=== PATIENT | male | born 1965 | race Caucasian/White ===

== ENCOUNTER 2016-09-01 15:28 | Emergency (ER) | payer MEDICARE, OTHER ==
[~2016-09-01] VITALS: Wt 136.0 kg
[~2016-09-01 15:28] MED LIST: ASPI-664 PO; FURO-109 PO; GABA300C16 PO; LANT3I SC; LISI20TA11 PO; METO-448 PO; METO5TAB65 PO; NIT4 SL; NOVO3I SC; POTA-57 PO
[2016-09-01 16:01] LABS: URINE BLOOD (Dip) POC 1+ (NEGATIVE)
--- NOTE | 2016-09-01 16:04 | ERD ---
ER Documentation Chief Complaint Date/Time DATE: 09/01/16 TIME: 15:59 Chief Complaint SENT BY PMD FOR HIGH BLOOD SUGAR DRAWN 1 DAY AGO. OVER 500. BS NOW 359 HPI Very pleasant 50-year-old gentleman history of insulin-dependent diabetes. He states for approximately 6 months he has been using a half dose of Lantus based on a pharmacist recommendation. He went to his doctor 2 days ago who told him to increase Lantus back up to 40 units. His primary care doctor called him today because of blood glucose value on routine testing showed a level of 500. Here it is 359. He states compliance with medications. He denies any polyuria polydipsia polyphagia, no difficulty breathing. He denies any fatigue. No chest pain or shortness of breath. ROS All systems reviewed and are negative except as per history of present illness. Medications Home Meds Active Scripts Potassium Chloride* (Klor-Con*) 20 Meq Tabsr, 20 MEQ PO BID for 30 Days, TAB Prov:SETH AVENDANO 11/16/15 Metoprolol Tartrate* (Lopressor*) 25 Mg Tab, 25 MG PO BID for 30 Days, TAB Prov:SETH AVENDANO 11/16/15 Metolazone* (Metolazone*) 5 Mg Tablet, 5 MG PO DAILY for 30 Days, TAB Prov:SETH AVENDANO 11/16/15 Lisinopril* (Lisinopril*) 20 Mg Tablet, 20 MG PO BID for 30 Days, TAB Prov:SETH AVENDANO 11/16/15 Furosemide* (Lasix*) 40 Mg Tablet, 40 MG PO DAILY for 30 Days, TAB Prov:SETH AVENDANO 11/16/15 Aspirin* (Aspirin* EC) 81 Mg Tabec, 81 MG PO DAILY, #30 Prov:SETH AVENDANO 08/13/15 Insulin Aspart* (Novolog Insulin Pen*) 100 Unit/Ml Soln, 4 UNIT SC WITH MEALS for 30 Days Prov:SETH AVENDANO 08/13/15 Reported Medications Insulin Glargine* (Lantus*) 100 Unit/Ml Soln, 36 UNIT SC QAM, #1 VIAL 11/13/15 Gabapentin* (Gabapentin*) 300 Mg Capsule, 300 MG PO TID, #90 08/10/15 Nitroglycerin* (Nitrostat*) 0.4 Mg Tab.subl, 0.4 MG SL Q5MIN Y for CHEST PAIN, BOTTLE 07/04/14 Allergies Allergies: Coded Allergies: No Known Drug Allergies (Verified Allergy, Mild, 11/15/15) PMhx/Soc History of Surgery: Yes (STENTS ) Anesthesia Reaction: No Hx Neurological Disorder: No Hx Respiratory Disorders: No Hx Cardiac Disorders: Yes (CAD; HTN) Hx Psychiatric Problems: No Hx Miscellaneous Medical Probl: No Hx Alcohol Use: No Hx Substance Use: No Hx Tobacco Use: No FmHx Family History: diabetes Physical Exam Vitals Vital Signs Date Time Temp Pulse Resp B/P Pulse Ox O2 Delivery O2 Flow Rate FiO2 09/01/16 15:33 98.8 99 21 152/71 98 Physical Exam General overweight male, no significant distress Head: Normocephalic, atraumatic. Eyes: Pupils equally reactive, EOM intact ENT: Moist mucous membranes Neck: Supple, no lymphadenopathy Respiratory: Lungs clear bilaterally, no distress Cardiovascular: RRR, no murmurs, rubs, or gallops Abdominal: Soft, non-tender, non-distended, no peritoneal signs : Deferred MSK: No edema, no unilateral swelling, 5/5 strength Neurologic: Alert and oriented, moving all extremities, normal speech, no focal weakness, no cerebellar signs Skin: No rash Psych: Normal mood Results 24 hrs Laboratory Tests Test 09/01/16 15:34 09/01/16 15:43 09/01/16 15:59 Bedside Glucose 329mg/dL Rl Test N/A Arterial Blood Date Drawn 09/01/2016 3:45:35 PM Arterial Blood Gas Puncture Site VENOUS LINE Blood Gas Actual Respiration Rate 20 Blood Gas Modality ROOM AIR Blood Gas Notified Time 09/01/2016 4:09:29 PM Blood Gas Notified Whom DEBORAH BRUNO Blood Gas Specimen Source Blood venous Blood Gas Temperature 37.0C Carboxyhemoglobin 0.7% FiO2 21.0% Venous Blood Base Excess 0.3mmol/L Venous Blood HCO3 25.3mmol/L Venous Blood Methemoglobin 0.2% Venous Blood Oxygen Saturation 57.8mmHG Venous Blood Oxyhemoglobin 57.3% Venous Blood Total Hemoglobin 14.9g/dl Venous Blood pCO2 (Temp Corrected) 42.0mmHG Venous Blood pH 7.397 Venous Blood pO2 (Temp Corrected) 28.0mmHG Bedside Urine Blood 1+ Bedside Urine Glucose (UA) 0.50% Bedside Urine Ketones (LAB) Negative Bedside Urine Leukocyte Esterase (L Negative Bedside Urine Nitrite (LAB) Negative Bedside Urine Protein (LAB) 2+ Bedside Urine pH (LAB) 5.0 Procedures/MDM LAB INTERPRETATION: Urine dip without ketones Venous blood gas shows normal pH MEDICAL DECISION MAKING: The patient presents because of a routine blood draw that showed a glucose value in the 500s. Patient has compliance with medications but has been taking a chronic half dose of Lantus. He has recently corrected his Lantus over the past 48 hours. He denies any signs or symptoms that would be consistent with diabetic ketoacidosis. He is otherwise well-hydrated without signs or symptoms of alternative etiology for hyperglycemia. I do not feel that significant laboratory testing or IV fluids are necessary. Rapidly lowering the patient's glucose is also not necessary. The patient will have screening to rule out DKA including urinalysis, venous blood gas. If normal, CBC and chemistry not necessary. Patient can be appropriately managed by his primary care physician. Inciting event including half dosing has been corrected. ER COURSE: Urinalysis without ketones, venous blood gas with normal pH. Patient appropriate for outpatient management. I will try to speak to the patient's primary care physician Dr. Cortez. I kept the patient and/or family informed of laboratory and diagnostic imaging results throughout the emergency room course. DISPOSITION PLAN: We discussed follow up with the patient's primary care doctor within 24 to 48 hours as needed. We also discussed return to the emergency room for worsening symptoms or worsening condition. Departure Diagnosis: Primary Impression: Hyperglycemia Additional Impression: Type 2 diabetes mellitus Diabetes mellitus complication status: without complication Diabetes mellitus joint terminal attack controller insulin use: with joint terminal attack controller use Qualified Code: E11.9 - Type 2 diabetes mellitus without complication, with long-term current use of insulin Condition: TALYA Eckert MD Sep 01, 2016 16:04
[2016-09-01 16:09] LABS: MODE ROOM AIR; MetHgb Venous 0.2 %; Sample Type Blood venous; Venous COHb 0.7 %; Venous Fraction OxyHgb 57.3 %; Venous Total Hemglobin 14.9 g/dl
== END 2016-09-01 16:16 | disposition home or self-care (01) ==
LOC: E/R 15:28
DX: E11.65 Type 2 diabetes mellitus with hyperglycemia (principal); I10 Essential (primary) hypertension; I25.10 Atherosclerotic heart disease of native coronary artery without angina pectoris; Z79.4 Long term (current) use of insulin; Z79.82 Long term (current) use of aspirin; Z98.61 Coronary angioplasty status
CPT/HCPCS: 36415; 81003; 82803; 82962; 99283

== ENCOUNTER → 2016-11-07 | Outpatient (CLI) | payer MEDICARE, OTHER ==
--- NOTE | 2016-11-07 15:43 | RADRPT ---
PROCEDURE: XR right hip. CLINICAL INDICATION: Hip pain TECHNIQUE: AP and lateral views performed COMPARISON: No prior studies are available for comparison. FINDINGS: There is moderate right hip osteoarthrosis. This is associated with joint space narrowing, subchondr al sclerosis , subchondral cyst formation and osteophytosis. There is normal mineralization. No fr actures or osseous lesions are identified. The soft tissues are unremarkable. IMPRESSION: Moderate right hip osteoarthrosis. RPTAT: HGDB .Benigno Vasquez MD, Date Time Electronically viewed and signed by .Benigno Vasquez MD, on 11/07/2016 15:43 .B/
[2016-11-07 16:02] LABS: ALBUMIN 4.2 g/dl (3.3-4.9); POTASSIUM 4.4 mmol/L (3.5-5.1)
[2016-11-07 16:04] LABS: CREATININE 1.08 mg/dl (0.61-1.24)
[2016-11-07 16:05] LABS: ALBUMIN/GLOBULIN RATIO 1.1; BILIRUBIN,INDIRECT 0.2 mg/dl (0-1.1); BILIRUBIN,TOTAL 0.2 mg/dl (0.2-1.3)
[2016-11-07 16:06] LABS: CALCIUM 9.7 mg/dl (8.4-10.2)
[2016-11-08 14:15] LABS: ANA SCREEN NEGATIVE (NEGATIVE)
== END | disposition home or self-care (01) ==
LOC: RAD 14:53
PROVIDERS: ATTEND Internal Medicine
DX: M19.90 Unspecified osteoarthritis, unspecified site (principal); E11.9 Type 2 diabetes mellitus without complications
CPT/HCPCS: 73510; 80053; 85651; 86038; 86430

== ENCOUNTER 2017-01-28 19:05 | Inpatient (IN) | payer MEDICARE, OTHER ==
[~2017-01-28] VITALS: Ht 172.7 cm; Wt 145.0 kg
[2017-01-28] MEDS ORDERED: ASPIRIN 325 MG TAB PO STA (19:37)
[2017-01-28] MEDS ORDERED: NITROGLYCERIN 2% 1 GM OINT PKT TD STA (19:37)
[2017-01-28 19:52] LABS: BASOPHILS % 0.3 % (0.0-2.0); EOSINOPHILS # 0.3 10^3/ul (0.0-0.5); EOSINOPHILS % 3.6 % (0.0-7.0); HEMOGLOBIN 14.3 g/dl (14.0-18.0); LYMPHOCYTES # 1.7 10^3/ul (0.8-2.9); LYMPHOCYTES % 22.2 % (15.0-51.0); MEAN CORPUSCULAR HEMOGLOBIN 27.8 pg (29.0-33.0); MEAN CORPUSCULAR HGB CONC 32.5 g/dl (32.0-37.0); MEAN CORPUSCULAR VOLUME 85.4 fl (82.0-101.0); MEAN PLATELET VOLUME 12.4 fl (7.4-10.4); MONOCYTE # 0.7 10^3/ul (0.3-0.9); MONOCYTES % 9.4 % (0.0-11.0); NEUTROPHILS % 64.1 % (39.0-77.0); PLATELET COUNT 168 10^3/UL (140-415); RED BLOOD COUNT 5.15 10^6/ul (4.70-6.10); RED CELL DISTRIBUTION WIDTH 14.1 % (11.5-14.5); WHITE BLOOD COUNT 7.8 10^3/ul (4.8-10.8)
[2017-01-28] MEDS ORDERED: HYDROmorphONE 1 MG/ML SYG IV STA ×2 (19:53→21:54)
[2017-01-28] MEDS ORDERED: ONDANSETRON 4 MG INJ IV STA ×2 (19:53→21:54)
[2017-01-28 20:11] LABS: INR 1.01; PROTIME 13.3 Sec (12.2-14.2)
[2017-01-28 20:12] LABS: PARTIAL THROMBOPLASTIN TIME 31.2 Sec (25.0-35.0)
[2017-01-28] MEDS ORDERED: SPIR25TA PO (20:15)
[2017-01-28] MEDS ORDERED: ALDS PO (20:17)
[2017-01-28] MEDS ORDERED: BENA20TA48 PO (20:17)
[2017-01-28] MEDS ORDERED: CLOP75TA4 PO (20:18)
[2017-01-28] MEDS ORDERED: CARV25TA79 PO (20:18)
[2017-01-28 20:22] LABS: ALANINE AMINOTRANSFERASE 47 IU/L (13-69); ALBUMIN 3.9 g/dl (3.3-4.9); ALBUMIN/GLOBULIN RATIO 1.14; ALKALINE PHOSPHATASE 140 IU/L (42-121); ANION GAP 18 (8-16); ASPARTATE AMINO TRANSFERASE 28 IU/L (15-46); BILIRUBIN,INDIRECT 0.3 mg/dl (0-1.1); BILIRUBIN,TOTAL 0.3 mg/dl (0.2-1.3); BLOOD UREA NITROGEN 25 mg/dl (7-20); CALCIUM 9.2 mg/dl (8.4-10.2); CARBON DIOXIDE 26 mmol/L (21-31); CHLORIDE 97 mmol/L (97-110); CREATININE 1.14 mg/dl (0.61-1.24); GLUCOSE 285 mg/dl (70-220); SODIUM 137 mmol/L (135-144); TOTAL PROTEIN 7.3 g/dl (6.1-8.1)
[2017-01-28 20:34] LABS: TROPONIN-I < 0.012 ng/ml (0.00-0.12)
--- NOTE | 2017-01-28 20:46 | RADRPT ---
PROCEDURE: XR Chest. CLINICAL INDICATION: Chest pain. TECHNIQUE: AP Portable chest. COMPARISON: 11/13/2015 FINDINGS: There is moderate cardiomegaly. The lungs are clear. The osseous structures are unremarkable. IMPRESSION: No acute findings. RPTAT: HIKT .Ariel Suarez MD, Date Time Electronically viewed and signed by .Ariel Suarez MD, on 01/28/2017 20:46 .T/
--- NOTE | 2017-01-28 22:15 | ERA ---
ER Documentation Chief Complaint Date/Time DATE: 01/28/17 TIME: 22:13 Chief Complaint left pressure like chest pain for 3 hours. Took Nitro 1 hour ago. Hx: MA HPI This is a 51-year-old male with a history of coronary artery disease with 6 cardiac stents. 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 The patient states that he has had chest pain off and on for the past 3-4 days that was initially relieved by nitro sublingual. However the chest pain became more frequent and he was taking more nitroglycerin and finally the nitroglycerin stopped working so he came to the ER. Says he has substernal chest pressure with shortness of breath and the chest pain radiates to the back and to his left shoulder and arm. Says this is the typical pattern for his angina. No cough no palpitations dizziness or syncope he says he is currently pain-free ROS All systems reviewed and are negative except as per history of present illness. Medications Home Meds Active Scripts Furosemide* (Lasix*) 40 Mg Tablet, 40 MG PO DAILY for 30 Days, TAB Prov:SETH AVENDANO 11/16/15 Aspirin* (Aspirin* EC) 81 Mg Tabec, 81 MG PO DAILY, #30 Prov:SETH AVENDANO 08/13/15 Insulin Aspart* (Novolog Insulin Pen*) 100 Unit/Ml Soln, 4 UNIT SC WITH MEALS for 30 Days Prov:SETH AVENDANO 08/13/15 Reported Medications Clopidogrel Bisulfate* (Clopidogrel Bisulfate*) 75 Mg Tablet, 75 MG PO DAILY, # 30 TAB 01/28/17 Carvedilol* (Carvedilol*) 25 Mg Tablet, 25 MG PO BID, #60 TAB 01/28/17 Benazepril Hcl* (Benazepril Hcl*) 20 Mg Tablet, 20 MG PO DAILY, #30 TAB 01/28/17 Spironolactone* (Aldactone*) Unknown Strength Susp, 0 PO DAILY for 30 Days, BOTTLE (COMPOUNDED) 01/28/17 Insulin Glargine* (Lantus*) 100 Unit/Ml Soln, 40 UNIT SC QAM, #1 VIAL 11/13/15 Discontinued Reported Medications Spironolactone* (Aldactone*) 25 Mg Tablet, 25 MG PO DAILY, #30 TAB 01/28/17 Gabapentin* (Gabapentin*) 300 Mg Capsule, 300 MG PO TID, #90 08/10/15 Nitroglycerin* (Nitrostat*) 0.4 Mg Tab.subl, 0.4 MG SL Q5MIN Y for CHEST PAIN, BOTTLE 07/04/14 Discontinued Scripts Potassium Chloride* (Klor-Con*) 20 Meq Tabsr, 20 MEQ PO BID for 30 Days, TAB Prov:JUAN ALBERTOSETH 11/16/15 Metoprolol Tartrate* (Lopressor*) 25 Mg Tab, 25 MG PO BID for 30 Days, TAB Prov:RADCHENDIMASSETH 11/16/15 Metolazone* (Metolazone*) 5 Mg Tablet, 5 MG PO DAILY for 30 Days, TAB Prov:RADJOHN PAUL MATTHEWETLANA 11/16/15 Lisinopril* (Lisinopril*) 20 Mg Tablet, 20 MG PO BID for 30 Days, TAB Prov:RADVIPULSETH 11/16/15 Allergies Allergies: Coded Allergies: No Known Drug Allergies (Verified Allergy, Mild, 01/28/17) PMhx/Soc History of Surgery: Yes (STENTS ) Anesthesia Reaction: No Hx Neurological Disorder: No Hx Respiratory Disorders: No Hx Cardiac Disorders: Yes (CAD; HTN) Hx Psychiatric Problems: No Hx Miscellaneous Medical Probl: No Hx Alcohol Use: No Hx Substance Use: No Hx Tobacco Use: No Smoking Status: Never smoker FmHx Family History: No coronary disease Physical Exam Vitals Vital Signs Date Time Temp Pulse Resp B/P Pulse Ox O2 Delivery O2 Flow Rate FiO2 01/28/17 19:44 Nasal Cannula 2 01/28/17 19:32 98.2 69 20 145/74 98 Nasal Cannula 2.0 01/28/17 19:08 99.8 68 22 153/80 96 Physical Exam Const: [] Head: Atraumatic Eyes: Normal Conjunctiva ENT: Normal External Ears, Nose and Mouth. Neck: Full range of motion..~ No meningismus. Resp: Clear to auscultation bilaterally Cardio: Regular rate and rhythm, no murmurs Abd: Soft, non tender, non distended. Normal bowel sounds Skin: No petechiae or rashes Back: No midline or flank tenderness Ext: No cyanosis, or edema Neur: Awake and alert Psych: Normal Mood and Affect Result Diagram: 01/28/17193901/28/171939 Results 24 hrs Laboratory Tests Test 01/28/17 19:40 White Blood Count 7.810^3/ul Red Blood Count 5.1510^6/ul Hemoglobin 14.3g/dl Hematocrit 44.0% Mean Corpuscular Volume 85.4fl Mean Corpuscular Hemoglobin 27.8pg Mean Corpuscular Hemoglobin Concent 32.5g/dl Red Cell Distribution Width 14.1% Platelet Count 53806^3/UL Mean Platelet Volume 12.4fl Neutrophils % 64.1% Lymphocytes % 22.2% Monocytes % 9.4% Eosinophils % 3.6% Basophils % 0.3% Nucleated Red Blood Cells % 0.0/100WBC Neutrophils # 5.010^3/ul Lymphocytes # 1.710^3/ul Monocytes # 0.710^3/ul Eosinophils # 0.310^3/ul Basophils # 0.010^3/ul Nucleated Red Blood Cells # 0.010^3/ul Prothrombin Time 13.3Sec Prothrombin Time Ratio 1.0 INR International Normalized Ratio 1.01 Activated Partial Thromboplast Time 31.2Sec Sodium Level 137mmol/L Potassium Level 4.0mmol/L Chloride Level 97mmol/L Carbon Dioxide Level 26mmol/L Anion Gap 18 Blood Urea Nitrogen 25mg/dl Creatinine 1.14mg/dl Glucose Level 285mg/dl Calcium Level 9.2mg/dl Total Bilirubin 0.3mg/dl Direct Bilirubin 0.00mg/dl Indirect Bilirubin 0.3mg/dl Aspartate Amino Transf (AST/SGOT) 28IU/L Alanine Aminotransferase (ALT/SGPT) 47IU/L Alkaline Phosphatase 140IU/L Troponin I < 0.012ng/ml Total Protein 7.3g/dl Albumin 3.9g/dl Globulin 3.40g/dl Albumin/Globulin Ratio 1.14 Current Medications Medications (Trade) Dose Ordered Sig/Emerson Route PRN Reason Start Time Stop Time Status Last Admin Dose Admin Aspirin (Aspirin) 325 mg ONCE STAT PO 01/28/17 19:37 01/28/17 19:38 DC 01/28/17 19:43 Nitroglycerin (Nitroglycerin 2% Oint) 1 inch ONCE STAT TD 01/28/17 19:37 01/28/17 19:38 DC 01/28/17 19:43 Hydromorphone HCl (Dilaudid) 1 mg ONCE STAT IV 01/28/17 19:53 01/28/17 19:54 DC 01/28/17 19:59 Ondansetron HCl (Zofran Inj) 4 mg ONCE STAT IV 01/28/17 19:53 01/28/17 19:54 DC 01/28/17 19:58 Hydromorphone HCl (Dilaudid) 1 mg ONCE STAT IV 01/28/17 21:54 01/28/17 21:55 DC 01/28/17 22:03 Ondansetron HCl (Zofran Inj) 4 mg ONCE STAT IV 01/28/17 21:54 01/28/17 21:55 DC 01/28/17 22:03 Procedures/MDM PROCEDURE: XR Chest. CLINICAL INDICATION: Chest pain. TECHNIQUE: AP Portable chest. COMPARISON: 11/13/2015 FINDINGS: There is moderate cardiomegaly. The lungs are clear. The osseous structures are unremarkable. IMPRESSION: No acute findings. RPTAT: HIKT .Ariel Suarez MD, MD Date Time Electronically viewed and signed by .Ariel Suarez MD, MD on 01/28/2017 20:46 .T/ CC: PARKER FARAH DO EKG: Rate/Rhythm: Normal sinus rhythm with right bundle branch block QRS, ST, QT: NORMAL IN, wide QRS, QT] Impression: NORMAL EKG Patient's symptoms are concerning for cardiac cause will require inpatient workup and continuous monitoring. Further w/u for ischemia, arrhythmia, PE or dissection will be deferred to the inpatient team. Accepting Care Team: Current data and ongoing care discussed. Time: Time of admission Primary Provider: Bard gutierrez Consulting: [XOXOXO] Outstanding Data: none Departure Diagnosis: Primary Impression: Chest pain Qualified Code: R07.9 - Chest pain, unspecified type Condition: Stable PARKER FARAH DO Jan 28, 2017 22:15
[2017-01-28] MEDS ORDERED: ACETAMINOPHEN 325 MG TAB PO PRN (22:30)
[2017-01-28] MEDS ORDERED: ONDANSETRON 4 MG INJ IV PRN (22:30)
[2017-01-28 23:31] VITALS: TEMP 98.3
[2017-01-28 23:58] VITALS: PULSE 54
[2017-01-29] VITALS (12 sets, daily range): BP systolic 133–181; BP diastolic 66–91; PULSE 55–62; RESP 18–22; Ht 172.7 cm; Wt 145.0 kg
[2017-01-29] MEDS ORDERED: SOD CHLORIDE 0.9% 1,000 ML IV ONE (00:30)
[2017-01-29] MEDS ORDERED: DEXTROSE 50% 50 ML SYRINGE IV PRN ×2 (01:00)
[2017-01-29] MEDS ORDERED: GLUCOSE GEL 15 GRAM TUBE BUCCAL PRN (01:00)
[2017-01-29] MEDS ORDERED: GLUCOSE GEL 15 GRAM TUBE PO PRN ×2 (01:00)
[2017-01-29] MEDS ORDERED: morphine 10 MG INJ IM PRN (01:00)
[2017-01-29] MEDS ORDERED: HYDROCODONE/APAP (5/325) TAB PO PRN (01:00)
[2017-01-29] MEDS ORDERED: ACETAMINOPHEN 325 MG TAB PO PRN (01:00)
[2017-01-29] MEDS ORDERED: GLUCAGON 1 MG INJ IM PRN (01:00)
[2017-01-29] MEDS ORDERED: NITROGLYCERIN (SL) 0.4 MG TAB SL PRN (01:00)
[2017-01-29] MEDS ORDERED: ACCU-CHEK XX SCH (02:00)
[2017-01-29] MEDS: INSULIN ASPART [NOVOLOG] 3 ML PEN SC SCH ×7 (07:55→19:59)
[2017-01-29 08:15] LABS: BASOPHILS % 0.4 % (0.0-2.0); EOSINOPHILS # 0.3 10^3/ul (0.0-0.5); EOSINOPHILS % 4.9 % (0.0-7.0); HEMATOCRIT 45.6 % (42.0-52.0); HEMOGLOBIN 14.7 g/dl (14.0-18.0); LYMPHOCYTES # 1.5 10^3/ul (0.8-2.9); LYMPHOCYTES % 21.5 % (15.0-51.0); MEAN CORPUSCULAR HEMOGLOBIN 27.8 pg (29.0-33.0); MEAN CORPUSCULAR HGB CONC 32.2 g/dl (32.0-37.0); MEAN CORPUSCULAR VOLUME 86.2 fl (82.0-101.0); MEAN PLATELET VOLUME 11.8 fl (7.4-10.4); MONOCYTE # 0.6 10^3/ul (0.3-0.9); MONOCYTES % 8.1 % (0.0-11.0); NEUTROPHIL # 4.6 10^3/ul (1.6-7.5); PLATELET COUNT 170 10^3/UL (140-415); RED BLOOD COUNT 5.29 10^6/ul (4.70-6.10); RED CELL DISTRIBUTION WIDTH 13.9 % (11.5-14.5)
[2017-01-29 08:41] LABS: ALBUMIN/GLOBULIN RATIO 1.25; BILIRUBIN,INDIRECT 0.6 mg/dl (0-1.1); BILIRUBIN,TOTAL 0.6 mg/dl (0.2-1.3); CREATININE 1.02 mg/dl (0.61-1.24); POTASSIUM 4.4 mmol/L (3.5-5.1); TOTAL PROTEIN 7.2 g/dl (6.1-8.1)
[2017-01-29] MEDS: ASPIRIN 325 MG TAB PO SCH (09:20)
[2017-01-29] MEDS: INSULIN GLARGINE [LANtus] 3 ML PEN SC SCH (09:25)
[2017-01-29] MEDS: ENOXAPARIN 40 MG/0.4 ML SYG SC SCH (09:26)
[2017-01-29] MEDS: ACCU-CHEK XX SCH (09:36)
--- NOTE | 2017-01-29 13:49 | HP ---
Date/Time of Note Date/Time of Note DATE: 01/29/17 TIME: 13:26 Assessment/Plan VTE Prophylaxis VTE Prophylaxis Intervention: LMWH Lines/Catheters IV Catheter Type (from Nrsg): Saline Lock Assessment/Plan Assessment/Plan - Chest pain r/o ACS. EKG showed right BBB - ADMIT TO TELE - Cardiology consult- Dr Vincent notified - stress test am - home meds resumed -CAD - SP STENTS -HTN - Diabetes Mellitus - Glycemic control - Hgb AM -M1800 JIMENA ADA, Low Na, Low CHOL diet - GERD - PROTONIX - Arthritis - pain control - Lovenox for DVT prophylaxis - Protonix for GI prophylaxis Dw Dr Cortez/staff/patient HPI/ROS Admit Date/Time Admit Date/Time Jan 28, 2017 at 22:22 Hx of Present Illness This is a 51-year-old male with a history of coronary artery disease with 6 cardiac stents is admitted with c/o had chest pain off and on for the past 3- 4 days that was initially relieved by nitro sublingual.But eventually chest pain was unrelieved. Patient described his pain as substernal chest pressure associated with shortness of breath, radiates to the back and to left shoulder and arm. Denies any chest pain- having lunch- tolerating well.Denies any cough no palpitations dizziness or syncope. c/o chest pain when he tried to ambulate. Seen by Dr Vincent- alex for stress test tomorrow. ROS All systems reviewed and are negative except as per history of present illness. Allergies No Known Drug Allergies (Verified Allergy, Mild, 01/28/17) ROS Respiratory: no complaints Cardiovascular: chest pain Gastrointestinal: no complaints Genitourinary: no complaints Musculoskeletal: no complaints Neurologic: no complaints PMH/Family/Social Past Medical History PMhx/Soc History of Surgery: Yes (STENTS ) Anesthesia Reaction: No Hx Neurological Disorder: No Hx Respiratory Disorders: No Hx Cardiac Disorders: Yes (CAD; HTN) Hx Psychiatric Problems: No Hx Miscellaneous Medical Probl: No Hx Alcohol Use: No Hx Substance Use: No Hx Tobacco Use: No Smoking Status: Never smoker FmHx Family History: No coronary disease Social History Smoking Status: Never smoker Exam/Review of Systems Vital Signs Vitals Vital Signs Date Time Temp Pulse Resp B/P Pulse Ox O2 Delivery O2 Flow Rate FiO2 01/29/17 12:09 62 01/29/17 12:08 98.2 19 133/66 98 01/29/17 00:21 Room Air 01/28/17 23:31 2.0 Exam Constitutional: alert, oriented Respiratory: clear to auscultation, normal air movement Cardiovascular: nl pulses, regular rate and rhythm Gastrointestinal: non-tender, soft Musculoskeletal: nl extremities to inspection Extremities: normal pulses Neurological: nl mental status, nl speech Labs Result Diagram: 01/29/17 0738 01/29/17 0738 Medications Medications Current Medications Aspirin (Aspirin) 325 mg DAILY PO Last administered on 01/29/17 09:20; Admin Dose 325 MG; Start 01/29/17 at 09:00 Carvedilol (Coreg) 3.125 mg BID PO Last administered on 01/29/17 09:27; Admin Dose 3.125 MG; Start 01/29/17 at 09:00 Acetaminophen (Tylenol Tab) 650 mg Q4H PRN PO PAIN AND OR ELEVATED TEMP; Start 01/29/17 at 01:00 Acetaminophen/ Hydrocodone Bitart ([place] (5/325)) 1 tab Q4H PRN PO PAIN; Start 01/29/17 at 01:00 Morphine Sulfate (morphine) 2 mg Q4H PRN IM PAIN; Start 01/29/17 at 01:00 Enoxaparin Sodium (Lovenox) 40 mg DAILY SC Last administered on 01/29/17 09:26 ; Admin Dose 40 MG; Start 01/29/17 at 09:00 Nitroglycerin (Nitroglycerin (Sl Tab) 0.4 Mg) 1 tab Q5M PRN SL ANGINA; Start at 01:00 Diagnostic Test (Pha) (Accu-Chek) 1 ea 02 XX ; Start 01/29/17 at 02:00 Insulin Glargine (Lantus) 40 unit DAILY@08 SC Last administered on 01/29/17 09 :25; Admin Dose 40 UNIT; Start 01/29/17 at 08:00 Miscellaneous Information 1 ea NOTE XX ; Start 01/29/17 at 01:00 Glucose (Glutose) 15 gm Q15M PRN PO DECREASED GLUCOSE; Start 01/29/17 at 01:00 Glucose (Glutose) 22.5 gm Q15M PRN PO DECREASED GLUCOSE; Start 01/29/17 at 01: 00 Dextrose (D50w Syringe) 25 ml Q15M PRN IV DECREASED GLUCOSE; Start 01/29/17 at 01:00 Dextrose (D50w Syringe) 50 ml Q15M PRN IV DECREASED GLUCOSE; Start 01/29/17 at 01:00 Glucagon (Glucagen) 1 mg Q15M PRN IM DECREASED GLUCOSE; Start 01/29/17 at 01:00 Glucose (Glutose) 15 gm Q15M PRN BUCCAL DECREASED GLUCOSE; Start 01/29/17 at 01 :00 Benazepril HCl (Lotensin) 10 mg BID PO ; Start 01/29/17 at 21:00 Furosemide (Lasix) 20 mg DAILY IV ; Start 01/30/17 at 09:00 Isosorbide Dinitrate (Isordil) 10 mg TID PO ; Start 01/29/17 at 21:00 Procedures Procedures PROCEDURE: XR Chest. CLINICAL INDICATION: Chest pain. TECHNIQUE: AP Portable chest. COMPARISON: 11/13/2015 FINDINGS: There is moderate cardiomegaly. The lungs are clear. The osseous structures are unremarkable. IMPRESSION: No acute findings. EKG: Rate/Rhythm: Normal sinus rhythm with right bundle branch block QRS, ST, QT: NORMAL [place], wide QRS, QT] Impression: REGINA BUI Jan 29, 2017 13:36
[2017-01-29 15:11] LABS: CHOL/HDL RATIO 5.5 RATIO
[2017-01-29] MEDS: ISOSORBIDE DINITRATE 10 MG TAB PO SCH (20:08)
[2017-01-29] MEDS ORDERED: BENAZEPRIL 10 MG TAB PO SCH (21:00)
[2017-01-30] VITALS (13 sets, daily range): BP systolic 129–171; BP diastolic 56–82; PULSE 51–69; RESP 18
--- NOTE | 2017-01-30 01:24 | PN ---
DATE: 01/29/2017 ADDENDUM: As for his diabetes, there is concern the patient is noncompliant with his care. The patient does not check his blood sugar at home, not even once a day and has been on insulin for the last several years. The patient has been explained the importance of checking his blood sugar and managing diabetes aggressively. Due to noncompliance, the patient's hemoglobin A1c in the past has always been elevated. Dictated By: Chaparro Cortez MD /linda/sally /Document#: [id number]
[2017-01-30] MEDS: ACCU-CHEK XX SCH (02:00)
[2017-01-30 07:44] LABS: BASOPHILS % 0.2 % (0.0-2.0); EOSINOPHILS # 0.3 10^3/ul (0.0-0.5); HEMATOCRIT 45.4 % (42.0-52.0); HEMOGLOBIN 14.7 g/dl (14.0-18.0); LYMPHOCYTES # 1.4 10^3/ul (0.8-2.9); LYMPHOCYTES % 21.7 % (15.0-51.0); MEAN CORPUSCULAR HGB CONC 32.4 g/dl (32.0-37.0); MEAN CORPUSCULAR VOLUME 86.5 fl (82.0-101.0); MEAN PLATELET VOLUME 12.3 fl (7.4-10.4); MONOCYTE # 0.5 10^3/ul (0.3-0.9); MONOCYTES % 8.2 % (0.0-11.0); NEUTROPHILS % 64.6 % (39.0-77.0); PLATELET COUNT 165 10^3/UL (140-415); RED BLOOD COUNT 5.25 10^6/ul (4.70-6.10); RED CELL DISTRIBUTION WIDTH 13.8 % (11.5-14.5); WHITE BLOOD COUNT 6.2 10^3/ul (4.8-10.8)
[2017-01-30] MEDS: INSULIN ASPART [NOVOLOG] 3 ML PEN SC SCH ×7 (07:55→21:09)
--- NOTE | 2017-01-30 08:00 | CONS ---
DATE OF ADMISSION: 01/28/2017 DATE OF CONSULTATION: 01/29/2017 REASON FOR CONSULTATION: Chest pain, shortness of breath, congestive heart failure. HISTORY OF PRESENT ILLNESS: Mr. Arroyo is a 51-year-old male with a history of coronary artery disease, status post prior PTCA and stent placement. Most recent LAD and right coronary artery with stents patent by cath 2014. Electrocardiogram with right block pattern, congestive heart failure with decreased ejection fraction approximately 25 percent to 30 percent by echo 07/2015. History of hypertension, dyslipidemia, diabetes mellitus, and depression, who presented with complaints of chest pain associated with shortness of breath. Upon arrival, temperature 98.8, blood pressure 152/80, pulse 68, AST 22, saturation 96 percent. Laboratory on 01/23/2017 white count of 7.8, hemoglobin 14.3, platelet count 168,000. Sodium 137, potassium 4, creatinine 1.1. BUN 25. Troponin negative. AST 28, ALT 47. INR 1. Patient underwent a chest x-ray revealing no acute cardiopulmonary abnormalities. Patient's electrocardiogram revealed sinus rhythm, rate of 71 with right bundle branch block, secondary repolarization abnormalities. Anterior . Patient subsequently has been admitted to the floor, and since admit to floor he has had additional troponin's which were negative, 2 negative troponin's. The patient continued to complaint of intermittent substernal chest pain. The patient was placed on baseline aspirin, carvedilol and insulin therapy. PAST MEDICAL HISTORY: As above in HPI. MEDICATION: Currently in the hospital: Insulin, aspirin 325 mg daily. Carvedilol 3.125 mg orally twice daily. Lovenox 40 subcu daily. Lantus 40 units subcu daily. Tylenol as needed. Morphine as needed. Nitroglycerin as needed. ALLERGIES: NO KNOWN DRUG ALLERGIES. SOCIAL HISTORY: No tobacco. Social EtOH. No illicit drug use. FAMILY HISTORY: No history of sudden cardiac or early CAD. REVIEW OF SYSTEMS: As above in HPI. CONSTITUTIONAL: No fevers or chills. RESPIRATORY: Shortness of breath. CARDIOVASCULAR: No chest pain. GASTROINTESTINAL: No vomiting. GENITOURINARY: No hematuria. MUSCULOSKELETAL: Degenerative joint disease. PSYCH: No depression. NEUROLOGIC: No documented CVA. ENDOCRINE: Diabetes mellitus. PHYSICAL EXAMINATION: VITAL SIGNS: Temperature of 98.2, blood pressure most recent 130/66, pulse 58, respiratory rate 19. Oxygen saturation 98 percent. GENERAL: The patient is alert, awake, and complaining of intermittent chest pain and shortness of breath. NECK: JVP approximately 9 cm of water. LUNGS: Decreased breath sounds at the bases bilaterally. HEART: Regular rate and rhythm. Normal S1, S2. There is I/ systolic murmur. Nondisplaced PMI. ABDOMEN: Positive bowel sounds. Soft. EXTREMITIES: Trace edema. Difficult to palpate distal pulse bilaterally posterior. LABORATORY: Most recently from today: Sodium 140, potassium 4.4, creatinine 1, BUN of 22. Troponin negative x3. LDL 102, HDL 37, white count 7.8, hemoglobin 40.7, platelet count 170,000. INR 1. IMAGING STUDIES: As above in HPI. No further imaging studies are reviewed at this time. EKG: ECG as above in HPI. No further for review at this time. IMPRESSION: 1. Chest pain. Assess for acute coronary syndrome. 2. Shortness of breath. Assess for congestive heart failure. 3. Cardiomyopathy with decreased left ventricular ejection fraction, by echo. Assess for ischemic etiology. 4. History of PTCA and stent placement. Most recent 2014 patent by catheterization at that time. 5. Hypertension. 6. Dyslipidemia. 7. Diabetes mellitus. RECOMMENDATIONS: 1. At this time, would maintain patient on telemetry monitoring to follow rhythm and rates closely. 2. Continue patient's aspirin for prophylaxis cardiac events. 3. Continue the patient's current Carvedilol, patient on JESSA inhibitor for afterload reduction in the setting of decreased left ventricular ejection and will follow the patient's volume status closely with probable need for gentle Lasix diuresis. 4. We will check repeat 2D echo to reassess patient's ejection fraction, as it has been over a year since she has had assessment. 5. Complete patient's rule out myocardial infarction. If the patient does rule out for infarction, I believe patient will benefit from further inpatient risk stratification with cardiac stress test scheduled to take place in the morning. 6. Check fasting lipid panel and initiate patient's lipid medications. Thank you for allowing me to take part in the care of this patient, I will continue to follow closely with you. Further recommendations will be made inpatient hospital course. Dictated By: Isaac Vincent, Medical /fnt/ac /Document#: [id number] CC: Chaparro Cortez MD;*[facility]*
[2017-01-30 08:33] LABS: CALCIUM 8.7 mg/dl (8.4-10.2); CREATININE 0.93 mg/dl (0.61-1.24); POTASSIUM 4.4 mmol/L (3.5-5.1)
[2017-01-30] MEDS ORDERED: FUROSEMIDE 20 MG INJ IV SCH (09:00)
[2017-01-30] MEDS ORDERED: REGADENOSON 0.4 MG/5 ML SYG ONE (12:13)
--- NOTE | 2017-01-30 12:28 | CONS ---
Date/Time of Note Date/Time of Note DATE: 01/30/17 TIME: 12:24 Assessment/Plan Assessment/Plan Chief Complaint/Hosp Course IMPRESSION: 1. Chest pain. Assess for acute coronary syndrome.-negative trop x 3 2. Shortness of breath. Assess for congestive heart failure. 3. Cardiomyopathy with decreased left ventricular ejection fraction, by echo. Assess for ischemic etiology. 4. History of PTCA and stent placement. Most recent 2015 patent by catheterization at that time. 5. Hypertension. 6. Dyslipidemia. 7. Diabetes mellitus. 8. BRadycardia-mild to 50's Recc: -Tele -serial ecg's -Increase ACEI and follow BP closely -Continue coreg -Continue asa/plavix -Continue oral nitrates -Continue gentl elasix diuresis -Lexiscan stress test today - Problems: Consultation Date/Type/Reason Admit Date/Time Jan 28, 2017 at 22:22 Initial Consult Date 01/29/17 Type of Consultation: cardiology Reason for Consultation Chest pain Exam/Review of Systems Vital Signs Vitals Vital Signs Date Time Temp Pulse Resp B/P Pulse Ox O2 Delivery O2 Flow Rate FiO2 01/30/17 11:11 98.4 65 18 147/75 97 01/29/17 00:21 Room Air 01/28/17 23:31 2.0 Intake and Output 01/29/17 01/29/17 01/30/17 15:00 23:00 07:00 Intake Total 0 ml 850 ml 240 ml Balance 0 ml 850 ml 240 ml Exam Review of Systems: CONSTITUTIONAL: No fevers, chills. PULMONARY: mild sob CARDIOVASCULAR: intermittent chest pain GASTROINTESTINAL: No nausea/vomiting. GENITOURINARY: No hematuria/dysuria. MUSCULOSKELETAL: No myagias/arthalgias. PSYCHIATRIC: The patient denies depression. NEUROLOGIC: No weakness Constitutional: alert Psych: no complaints Head: normocephalic ENMT: mucosa pink and moist Neck: jvd (9 cm water), supple Respiratory: diminished breath sounds (at bases/B) Cardiovascular: regular rate and rhythm Gastrointestinal: non-tender, soft Musculoskeletal: muscle tone (normal) Extremities: edema (trace/B) Neurological: other (No focal deficits) Results Result Diagram: 01/30/17 0645 01/30/17 0645 Results 24 hrs Laboratory Tests Test 01/29/17 12:37 01/29/17 14:20 01/29/17 17:13 01/29/17 19:58 Bedside Glucose 224 H 141 159 Triglycerides Level 288 H Cholesterol Level 171 LDL Cholesterol, Calculated 82 HDL Cholesterol 31 Cholesterol/HDL Ratio 5.5 Free Thyroxine 1.18 Test 01/30/17 06:45 01/30/17 08:21 White Blood Count 6.2 Red Blood Count 5.25 Hemoglobin 14.7 Hematocrit 45.4 Mean Corpuscular Volume 86.5 Mean Corpuscular Hemoglobin 28.0 L Mean Corpuscular Hemoglobin Concent 32.4 Red Cell Distribution Width 13.8 Platelet Count 165 Mean Platelet Volume 12.3 H Neutrophils % 64.6 Lymphocytes % 21.7 Monocytes % 8.2 Eosinophils % 5.0 Basophils % 0.2 Nucleated Red Blood Cells % 0.0 Neutrophils # 4.0 Lymphocytes # 1.4 Monocytes # 0.5 Eosinophils # 0.3 Basophils # 0.0 Nucleated Red Blood Cells # 0.0 Sodium Level 140 Potassium Level 4.4 Chloride Level 100 Carbon Dioxide Level 28 Anion Gap 16 Blood Urea Nitrogen 15 Creatinine 0.93 Glucose Level 165 Hemoglobin A1c > 14.0 H Calcium Level 8.7 Troponin I < 0.012 Bedside Glucose 198 Medications Medications Current Medications Aspirin (Aspirin) 325 mg DAILY PO Last administered on 01/29/17 09:20; Admin Dose 325 MG; Start 01/29/17 at 09:00 Carvedilol (Coreg) 3.125 mg BID PO Last administered on 01/29/17 20:09; Admin Dose 3.125 MG; Start 01/29/17 at 09:00 Acetaminophen (Tylenol Tab) 650 mg Q4H PRN PO PAIN AND OR ELEVATED TEMP; Start 01/29/17 at 01:00 Acetaminophen/ Hydrocodone Bitart ([place] (5/325)) 1 tab Q4H PRN PO PAIN Last administered on 01/29/17 17:16; Admin Dose 1 TAB; Start 01/29/17 at 01:00 Morphine Sulfate (morphine) 2 mg Q4H PRN IM PAIN; Start 01/29/17 at 01:00 Enoxaparin Sodium (Lovenox) 40 mg DAILY SC Last administered on 01/29/17 09:26 ; Admin Dose 40 MG; Start 01/29/17 at 09:00 Nitroglycerin (Nitroglycerin (Sl Tab) 0.4 Mg) 1 tab Q5M PRN SL ANGINA; Start at 01:00 Diagnostic Test (Pha) (Accu-Chek) 1 ea 02 XX ; Start 01/29/17 at 02:00 Insulin Glargine (Lantus) 40 unit DAILY@08 SC Last administered on 01/29/17 09 :25; Admin Dose 40 UNIT; Start 01/29/17 at 08:00 Miscellaneous Information 1 ea NOTE XX ; Start 01/29/17 at 01:00 Glucose (Glutose) 15 gm Q15M PRN PO DECREASED GLUCOSE; Start 01/29/17 at 01:00 Glucose (Glutose) 22.5 gm Q15M PRN PO DECREASED GLUCOSE; Start 01/29/17 at 01: 00 Dextrose (D50w Syringe) 25 ml Q15M PRN IV DECREASED GLUCOSE; Start 01/29/17 at 01:00 Dextrose (D50w Syringe) 50 ml Q15M PRN IV DECREASED GLUCOSE; Start 01/29/17 at 01:00 Glucagon (Glucagen) 1 mg Q15M PRN IM DECREASED GLUCOSE; Start 01/29/17 at 01:00 Glucose (Glutose) 15 gm Q15M PRN BUCCAL DECREASED GLUCOSE; Start 01/29/17 at 01 :00 Benazepril HCl (Lotensin) 10 mg BID PO Last administered on 01/29/17 20:07; Admin Dose 10 MG; Start 01/29/17 at 21:00 Furosemide (Lasix) 20 mg DAILY IV ; Start 01/30/17 at 09:00 Isosorbide Dinitrate (Isordil) 10 mg TID PO Last administered on 01/29/17 20: 08; Admin Dose 10 MG; Start 01/29/17 at 21:00 Clopidogrel Bisulfate (plaVIX) 75 mg DAILY PO ; Start 01/30/17 at 09:00 MAE ROSALES Jan 30, 2017 12:28
--- NOTE | 2017-01-30 12:37 | PN ---
Date/Time of Note Date/Time of Note DATE: 01/30/17 TIME: 12:32 Assessment/Plan VTE Prophylaxis VTE Prophylaxis Intervention: SCD's Lines/Catheters IV [facility] Saline Lock Assessment/Plan Chief Complaint/Hosp Course Patient is currently was taking to stress test no acute events reported prior to stress test. According to RN patient still complains of moderate chest pain. Problems: Assessment/Plan - Chest pain. Assess for acute coronary syndrome.-negative trop x 3, undergoing stress test today. Dr. Vincent is following and cardiology consultation. Continue aspirin and Plavix. - Cardiomyopathy with decreased left ventricular ejection fraction, by echo. Assess for ischemic etiology. - CAD with hx of PTCA and stent placement. patent by catheterization at that time. - Hypertension. -Dyslipidemia. -Poorly controlled diabetes mellitus with hemoglobin A1c above 14, continue Lantus and pre-meal NovoLog, diabetes education consult for education regarding subcu insulin injection. -Poor medical compliance Further recommendations based on clinical course. Plan of plan of care discussed with Dr. Cortez. Exam/Review of Systems Vital Signs Vitals Vital Signs Date Time Temp Pulse Resp B/P Pulse Ox O2 Delivery O2 Flow Rate FiO2 01/30/17 11:11 98.4 65 18 147/75 97 01/29/17 00:21 Room Air 01/28/17 23:31 2.0 Intake and Output 01/29/17 01/29/17 01/30/17 15:00 23:00 07:00 Intake Total 0 ml 850 ml 240 ml Balance 0 ml 850 ml 240 ml Results Result Diagram: 01/30/17 0645 01/30/17 0645 Results 24 hrs Laboratory Tests Test 01/29/17 12:37 01/29/17 14:20 01/29/17 17:13 01/29/17 19:58 Bedside Glucose 224 H 141 159 Triglycerides Level 288 H Cholesterol Level 171 LDL Cholesterol, Calculated 82 HDL Cholesterol 31 Cholesterol/HDL Ratio 5.5 Free Thyroxine 1.18 Test 01/30/17 06:45 01/30/17 08:21 White Blood Count 6.2 Red Blood Count 5.25 Hemoglobin 14.7 Hematocrit 45.4 Mean Corpuscular Volume 86.5 Mean Corpuscular Hemoglobin 28.0 L Mean Corpuscular Hemoglobin Concent 32.4 Red Cell Distribution Width 13.8 Platelet Count 165 Mean Platelet Volume 12.3 H Neutrophils % 64.6 Lymphocytes % 21.7 Monocytes % 8.2 Eosinophils % 5.0 Basophils % 0.2 Nucleated Red Blood Cells % 0.0 Neutrophils # 4.0 Lymphocytes # 1.4 Monocytes # 0.5 Eosinophils # 0.3 Basophils # 0.0 Nucleated Red Blood Cells # 0.0 Sodium Level 140 Potassium Level 4.4 Chloride Level 100 Carbon Dioxide Level 28 Anion Gap 16 Blood Urea Nitrogen 15 Creatinine 0.93 Glucose Level 165 Hemoglobin A1c > 14.0 H Calcium Level 8.7 Troponin I < 0.012 Bedside Glucose 198 Medications Medications Current Medications Aspirin (Aspirin) 325 mg DAILY PO Last administered on 01/29/17 09:20; Admin Dose 325 MG; Start 01/29/17 at 09:00 Carvedilol (Coreg) 3.125 mg BID PO Last administered on 01/29/17 20:09; Admin Dose 3.125 MG; Start 01/29/17 at 09:00 Acetaminophen (Tylenol Tab) 650 mg Q4H PRN PO PAIN AND OR ELEVATED TEMP; Start 01/29/17 at 01:00 Acetaminophen/ Hydrocodone Bitart ([place] (5/325)) 1 tab Q4H PRN PO PAIN Last administered on 01/29/17 17:16; Admin Dose 1 TAB; Start 01/29/17 at 01:00 Morphine Sulfate (morphine) 2 mg Q4H PRN IM PAIN; Start 01/29/17 at 01:00 Enoxaparin Sodium (Lovenox) 40 mg DAILY SC Last administered on 01/29/17 09:26 ; Admin Dose 40 MG; Start 01/29/17 at 09:00 Nitroglycerin (Nitroglycerin (Sl Tab) 0.4 Mg) 1 tab Q5M PRN SL ANGINA; Start at 01:00 Diagnostic Test (Pha) (Accu-Chek) 1 ea 02 XX ; Start 01/29/17 at 02:00 Insulin Glargine (Lantus) 40 unit DAILY@08 SC Last administered on 01/29/17 09 :25; Admin Dose 40 UNIT; Start 01/29/17 at 08:00 Miscellaneous Information 1 ea NOTE XX ; Start 01/29/17 at 01:00 Glucose (Glutose) 15 gm Q15M PRN PO DECREASED GLUCOSE; Start 01/29/17 at 01:00 Glucose (Glutose) 22.5 gm Q15M PRN PO DECREASED GLUCOSE; Start 01/29/17 at 01: 00 Dextrose (D50w Syringe) 25 ml Q15M PRN IV DECREASED GLUCOSE; Start 01/29/17 at 01:00 Dextrose (D50w Syringe) 50 ml Q15M PRN IV DECREASED GLUCOSE; Start 01/29/17 at 01:00 Glucagon (Glucagen) 1 mg Q15M PRN IM DECREASED GLUCOSE; Start 01/29/17 at 01:00 Glucose (Glutose) 15 gm Q15M PRN BUCCAL DECREASED GLUCOSE; Start 01/29/17 at 01 :00 Isosorbide Dinitrate (Isordil) 10 mg TID PO Last administered on 01/29/17t 20: 08; Admin Dose 10 MG; Start 01/29/17 at 21:00 Clopidogrel Bisulfate (plaVIX) 75 mg DAILY PO ; Start 01/30/17 at 09:00 Benazepril HCl (Lotensin) 20 mg BID PO ; Start 01/30/17 at 21:00; Status UNV Furosemide (Lasix) 20 mg BID IV ; Start 01/30/17 at 21:00; Status UNV SETH AVENDANO Jan 30, 2017 12:37
--- NOTE | 2017-01-30 13:41 | RADRPT ---
PROCEDURE: Lexiscan myocardial perfusion study CLINICAL INDICATION: 51 -year-old patient complaining of chest pain. TECHNIQUE: Lexiscan 0.4 mg intravenously separate acquisition gated myocardial perfusion SPECT usi ng Tc 99m Myoview 48.0 mCi intravenously at stress and Tc-99m Myoview, 17.1 mCi intravenously at res t was performed using the rest/stress sequence. Poststress Myoview SPECT images were obtained in th e supine position. COMPARISON: August 03, 2014. FINDINGS: Perfusion images reveal an unchanged moderate size moderate in degree nonreversible perfusion defect in the apical, distal to mid anterior, distal to mid anteroseptal and inferior stokes. Lexiscan post stress SPECT images demonstrate moderate hypokinesis of the left ventricle. IMPRESSION: 1. The type and distribution of the scintigraphic abnormalities are most consistent with a moderate -sized nonreversible perfusion defect in the apex, distal to mid anterior, distal to mid anterosepta l and inferior stokes. 2. Moderate hypokinesis of the left ventricle. 3. The left ventricle ejection fraction at stress is 29% (prior EF was 28%). A call report was made to Dr. Vincent at 01:40 p.m. on January 30, 2017. RPTAT: HH .Rosemary Goldberg MD, MD Date Time Electronically viewed and signed by .Rosemary Goldberg MD, on 01/30/2017 13:41 .L/
[2017-01-30] MEDS: CLOPIDOGREL 75 MG TAB PO SCH (14:09)
[2017-01-30] MEDS: ISOSORBIDE DINITRATE 10 MG TAB PO SCH ×3 (14:09→21:05)
[2017-01-30] MEDS: ASPIRIN 325 MG TAB PO SCH (14:10)
[2017-01-30] MEDS: ENOXAPARIN 40 MG/0.4 ML SYG SC SCH (14:14)
[2017-01-30] MEDS: FUROSEMIDE 20 MG INJ IV SCH (17:59)
[2017-01-30] MEDS: INSULIN GLARGINE [LANtus] 3 ML PEN SC SCH (18:04)
--- NOTE | 2017-01-30 19:53 | RADRPT ---
Echocardiogram Report Patient Name: CEDRIC KHAN Gender: Male Date: 1965 Study Date: 29-Jan-2017 Creative Specialist: Dominique Avitia [facility] Location: [id number] Ref. Physician: NIA DOMINGO Quality: Good Procedures: Transthoracic echocardiogram with complete 2D, M-Mode, and doppler examination. Indications: Chest Pain. 2D/M Mode Doppler Measurement Value Normal Ranges Measurement Value Normal Ranges LVIDd 2D 6.2 3.5 - 5.6 cm AV Peak Ramon 1.2 m/sec LVIDs 2D 4.4 2.1 - 4.1 cm AV Peak PG 5.6 mmHg LVPWd 2D 1.4 0.6 - 1.1 cm LVOT Peak Ramon 1.1 m/sec IVSd 2D 1.6 0.6 - 1.1 cm LVOT Peak PG 4.5 mmHg AoR Diam 2D 3.3 2.0 - 3.7 cm MV E Peak Ramon 0.8 m/sec EDV 2D 192.0 cm3 MV A Peak Ramon 0.7 m/sec ESV 2D 87.6 cm3 MV E/A 1.1 LA Dimen 2D 4.1 2.3 - 4.0 cm MV Decel Time 232 msec MV Decel [place] 3 MV E/A 1.1 Findings Left Ventricle: Moderate concentric left ventricular hypertrophy. Mild enlargement of left ventricle cavity. Moderate global left ventricular systolic dysfunction. Ejection fraction is visually estimated at 3035 %. Abnormal Diastolic Function. Right Ventricle: Normal right ventricular size. Normal right ventricular systolic function. Left Atrium: There is mild enlargement of left atrium. Right Atrium: The right atrium is normal in size. Mitral Valve: Normal appearance and function of the mitral valve with trace physiologic regurgitation. Aortic Valve: No significant aortic stenosis or insufficiency. Aortic cusps appear mildly calcified. Tricuspid Valve: Normal appearance of the tricuspid valve. Unable to obtain RVSP due to minimal presence of tricuspid regurgitation. Pulmonic Valve: Pulmonic valve not well visualized. Pericardium: Normal pericardium with no significant pericardial effusion. Aorta: Normal aortic root. IVC: Normal size and normal respiratory collapse consistent with normal right atrial pressure. Conclusions 1.Moderate concentric left ventricular hypertrophy. Mild enlargement of left ventricle cavity. Moderate global left ventricular systolic dysfunction. Ejection fraction is visually estimated at 30-35 %. Abnormal Diastolic Function. 2.There is mild enlargement of left atrium. 3.Normal appearance and function of the mitral valve with trace physiologic regurgitation. 4.Normal appearance of the tricuspid valve. Unable to obtain RVSP due to minimal presence of tricuspid regurgitation. Electronically Signed By: Isaac Vincent 30-Jan-2017 19:52:23 -0700 Patient Name: CEDRIC KHAN Study Date: 29-Jan-2017 [id number]
[2017-01-30] MEDS: BENAZEPRIL 20 MG TAB PO SCH (21:06)
--- NOTE | 2017-01-30 23:06 | CARRPT ---
DATE OF PROCEDURE: 01/30/2017 PROCEDURE: Lexiscan Cardiolite Stress Test. REASON FOR STRESS TEST: Chest pain, assess for ischemia and cardiomyopathy. BASELINE VITAL SIGNS: Pulse of 68, blood pressure 160/76. ELECTROCARDIOGRAM: Normal sinus rhythm, 64, right bundle branch block, secondary repolarization abnormalities. PROCEDURE: The patient underwent standard Lexiscan infusion protocol for 10 seconds with no complications. The patient tested with Lexiscan protocol. Maximum achieved blood pressure during the test 172/84. Maximum heart rate during the test 82. ECG FINDINGS: The patient did not develop any new Lexiscan induced changes from baseline abnormalities without documented PVCs. SYMPTOMS: Based on complaints of shortness of breath during stress test, resolved in recovery. IMPRESSION: 1. No Lexiscan induced ST-T waves changes from baseline abnormalities for diagnostic cardiac ischemia. 2. During stress testing with positive shortness of breath, resolved in recovery. 3. No documented premature ventricular contractions (PVCs) during stress testing. 4. Report of nuclear imaging following in separate dictation. Dictated By: Polly Vance /armaant/ /Document#: [id number] CC: Chaparro Cortez MD;*EndCC*
[2017-01-31] VITALS (13 sets, daily range): BP systolic 108–141; BP diastolic 58–77; PULSE 55–72; RESP 16–18
[2017-01-31] MEDS: ACCU-CHEK XX SCH (02:21)
[2017-01-31] MEDS: FUROSEMIDE 20 MG INJ IV SCH (05:09)
[2017-01-31 07:13] LABS: BASOPHILS % 0.3 % (0.0-2.0); EOSINOPHILS # 0.3 10^3/ul (0.0-0.5); EOSINOPHILS % 4.4 % (0.0-7.0); HEMATOCRIT 46.4 % (42.0-52.0); HEMOGLOBIN 15.1 g/dl (14.0-18.0); LYMPHOCYTES # 1.5 10^3/ul (0.8-2.9); LYMPHOCYTES % 22.9 % (15.0-51.0); MEAN CORPUSCULAR HEMOGLOBIN 27.9 pg (29.0-33.0); MEAN CORPUSCULAR HGB CONC 32.5 g/dl (32.0-37.0); MEAN CORPUSCULAR VOLUME 85.6 fl (82.0-101.0); MEAN PLATELET VOLUME 12.2 fl (7.4-10.4); MONOCYTE # 0.6 10^3/ul (0.3-0.9); MONOCYTES % 9.9 % (0.0-11.0); NEUTROPHILS % 62.2 % (39.0-77.0); PLATELET COUNT 177 10^3/UL (140-415); RED BLOOD COUNT 5.42 10^6/ul (4.70-6.10); WHITE BLOOD COUNT 6.4 10^3/ul (4.8-10.8)
[2017-01-31 07:27] LABS: CALCIUM 8.7 mg/dl (8.4-10.2); CREATININE 0.94 mg/dl (0.61-1.24); POTASSIUM 3.6 mmol/L (3.5-5.1)
[2017-01-31] MEDS: CLOPIDOGREL 75 MG TAB PO SCH (08:39)
[2017-01-31] MEDS: ISOSORBIDE DINITRATE 10 MG TAB PO SCH ×2 (08:39→14:20)
[2017-01-31] MEDS: ASPIRIN 325 MG TAB PO SCH (08:39)
[2017-01-31] MEDS: BENAZEPRIL 20 MG TAB PO SCH (08:40)
[2017-01-31] MEDS: INSULIN GLARGINE [LANtus] 3 ML PEN SC SCH (08:42)
[2017-01-31] MEDS: INSULIN ASPART [NOVOLOG] 3 ML PEN SC SCH ×4 (08:43→12:33)
[2017-01-31] MEDS: ENOXAPARIN 40 MG/0.4 ML SYG SC SCH (08:51)
--- NOTE | 2017-01-31 11:18 | RADRPT ---
Vent Rate: 60 bpm RR Interval: 0 msec MD Interval: 178 msec QRS Duration: 186 msec QT Interval: 474 msec QTC Interval: 474 msec P-R-T [place]: 55 - 0 - 41 degrees Normal sinus rhythm Right bundle branch block Septal infarct , age undetermined Abnormal ECG Electronically Signed By: Sj Preez [id number]
--- NOTE | 2017-01-31 11:20 | RADRPT ---
Vent Rate: 54 bpm RR Interval: [address] Interval: 170 msec QRS Duration: 176 msec QT Interval: 480 msec QTC Interval: 455 msec P-R-T [place]: 59 - 176 - 55 degrees Sinus bradycardia Right axis deviation Nonspecific intraventricular block Abnormal ECG Electronically Signed By: Sj Perez [id number]
--- NOTE | 2017-01-31 16:09 | PN ---
Date/Time of Note Date/Time of Note DATE: 01/31/17 TIME: 16:06 Assessment/Plan VTE Prophylaxis VTE Prophylaxis Intervention: other Lines/Catheters IV Catheter Type (from [facility]rs[facility]): Saline Lock Assessment/Plan Assessment/Plan - Chest pain. Assess for acute coronary syndrome.-negative trop x 3, undergoing stress test today. - Dr. Vincent is following and cardiology consultation. Continue aspirin and Plavix. - Cardiomyopathy with 29% left ventricular ejection fraction, by echo. Assess for ischemic etiology. - CAD with hx of PTCA and stent placement. patent by catheterization at that time. - Hypertension. -Dyslipidemia. -Poorly controlled diabetes mellitus with hemoglobin A1c above 14, continue Lantus and pre-meal NovoLog, diabetes education consult for education regarding subcu insulin injection. -Poor medical compliance Further recommendations based on clinical course. Plan of plan of care discussed with Dr. Cortez. Subjective 24 Hr Interval Summary Respiratory: no complaints Cardiovascular: no complaints Gastrointestinal: no complaints Genitourinary: no complaints Musculoskeletal: no complaints Skin: no complaints Neurologic: no complaints Exam/Review of Systems Vital Signs Vitals Vital Signs Date Time Temp Pulse Resp B/P Pulse Ox O2 Delivery O2 Flow Rate FiO2 01/31/17 15:23 98.2 78 18 108/58 97 01/31/17 13:10 Room Air 01/28/17 23:31 2.0 Intake and Output 01/30/17 01/30/17 01/31/17 15:00 23:00 07:00 Intake Total 750 ml 250 ml Balance 750 ml 250 ml Exam Constitutional: alert, oriented, well developed Respiratory: clear to auscultation, normal air movement Cardiovascular: nl pulses, regular rate and rhythm Gastrointestinal: non-tender, soft Musculoskeletal: nl extremities to inspection Extremities: normal pulses Neurological: nl mental status, nl speech Results Result Diagram: 01/31/1762601/31/17626 Results 24 hrs Laboratory Tests Test 01/30/17 17:57 01/30/17 21:06 01/31/17 02:11 01/31/17 06:27 Bedside Glucose 198 212 183 White Blood Count 6.4 Red Blood Count 5.42 Hemoglobin 15.1 Hematocrit 46.4 Mean Corpuscular Volume 85.6 Mean Corpuscular Hemoglobin 27.9 L Mean Corpuscular Hemoglobin Concent 32.5 Red Cell Distribution Width 14.0 Platelet Count 177 Mean Platelet Volume 12.2 H Neutrophils % 62.2 Lymphocytes % 22.9 Monocytes % 9.9 Eosinophils % 4.4 Basophils % 0.3 Nucleated Red Blood Cells % 0.0 Neutrophils # 4.0 Lymphocytes # 1.5 Monocytes # 0.6 Eosinophils # 0.3 Basophils # 0.0 Nucleated Red Blood Cells # 0.0 Sodium Level 136 Potassium Level 3.6 Chloride Level 99 Carbon Dioxide Level 27 Anion Gap 14 Blood Urea Nitrogen 13 Creatinine 0.94 Glucose Level 217 Calcium Level 8.7 Test 01/31/17 08:00 01/31/17 12:25 Bedside Glucose 211 205 Medications Medications Current Medications Aspirin (Aspirin) 325 mg DAILY PO Last administered on 01/31/17 08:39; Admin Dose 325 MG; Start 01/29/17 at 09:00 Carvedilol (Coreg) 3.125 mg BID PO Last administered on 01/31/17 08:39; Admin Dose 3.125 MG; Start 01/29/17 at 09:00 Acetaminophen (Tylenol Tab) 650 mg Q4H PRN PO PAIN AND OR ELEVATED TEMP; Start 01/29/17 at 01:00 Acetaminophen/ Hydrocodone Bitart ([place] (5/325)) 1 tab Q4H PRN PO PAIN Last administered on 01/29/17 17:16; Admin Dose 1 TAB; Start 01/29/17 at 01:00 Morphine Sulfate (morphine) 2 mg Q4H PRN IM PAIN; Start 01/29/17 at 01:00 Enoxaparin Sodium (Lovenox) 40 mg DAILY SC Last administered on 01/31/17 08:51 ; Admin Dose 40 MG; Start 01/29/17 at 09:00 Nitroglycerin (Nitroglycerin (Sl Tab) 0.4 Mg) 1 tab Q5M PRN SL ANGINA; Start at 01:00 Diagnostic Test (Pha) (Accu-Chek) 1 ea 02 XX Last administered on 01/31/17 02: 21; Admin Dose 1 EA; Start 01/29/17 at 02:00 Insulin Glargine (Lantus) 40 unit DAILY@08 SC Last administered on 01/31/17 08 :42; Admin Dose 40 UNIT; Start 01/29/17 at 08:00 Miscellaneous Information 1 ea NOTE XX ; Start 01/29/17 at 01:00 Glucose (Glutose) 15 gm Q15M PRN PO DECREASED GLUCOSE; Start 01/29/17 at 01:00 Glucose (Glutose) 22.5 gm Q15M PRN PO DECREASED GLUCOSE; Start 01/29/17 at 01: 00 Dextrose (D50w Syringe) 25 ml Q15M PRN IV DECREASED GLUCOSE; Start 01/29/17 at 01:00 Dextrose (D50w Syringe) 50 ml Q15M PRN IV DECREASED GLUCOSE; Start 01/29/17 at 01:00 Glucagon (Glucagen) 1 mg Q15M PRN IM DECREASED GLUCOSE; Start 01/29/17 at 01:00 Glucose (Glutose) 15 gm Q15M PRN BUCCAL DECREASED GLUCOSE; Start 01/29/17 at 01 :00 Isosorbide Dinitrate (Isordil) 10 mg TID PO Last administered on 01/31/17 14: 20; Admin Dose 10 MG; Start 01/29/17 at 21:00 Clopidogrel Bisulfate (plaVIX) 75 mg DAILY PO Last administered on 01/31/17 08 :39; Admin Dose 75 MG; Start 01/30/17 at 09:00 Benazepril HCl (Lotensin) 20 mg BID PO Last administered on 01/31/17 08:40; Admin Dose 20 MG; Start 01/30/17 at 21:00 REGINA BUI Jan 31, 2017 16:09
--- NOTE | 2017-01-31 16:20 | CONS ---
Date/Time of Note Date/Time of Note DATE: 01/31/17 TIME: 16:16 Assessment/Plan Assessment/Plan Additional Assessment/Plan Atypical chest pain CAD s/p stenting Ischemic cardiomyopathy diabetes hypertension dyslipidemia stress test no ischemia with EF 29% Continue Imdur Continue Coreg Continue Benazepril Continue ASA and Plavix Continue Insulin Continue Lipitor Consultation Date/Type/Reason Admit Date/Time Jan 28, 2017 at 22:22 Respiratory: no complaints Cardiovascular: no complaints Gastrointestinal: no complaints Genitourinary: no complaints Musculoskeletal: no complaints Skin: no complaints Neurologic: no complaints Psychological: no complaints Social History Smoking Status: Never smoker Exam/Review of Systems Vital Signs Vitals Vital Signs Date Time Temp Pulse Resp B/P Pulse Ox O2 Delivery O2 Flow Rate FiO2 01/31/17 16:08 61 01/31/17 15:23 98.2 18 108/58 97 01/31/17 13:10 Room Air 01/28/17 23:31 2.0 Intake and Output 01/30/17 01/30/17 01/31/17 15:00 23:00 07:00 Intake Total 750 ml 250 ml Balance 750 ml 250 ml Exam Constitutional: alert, oriented Head: atraumatic, normocephalic Neck: non-tender, supple Respiratory: clear to auscultation Cardiovascular: regular rate and rhythm Gastrointestinal: nl liver, spleen, non-tender, soft Extremities: normal pulses Results Result Diagram: 01/31/1727 01/31/1727 Results 24 hrs Laboratory Tests Test 01/30/17 17:57 01/30/17 21:06 01/31/17 02:11 01/31/17 06:27 Bedside Glucose 198 212 183 White Blood Count 6.4 Red Blood Count 5.42 Hemoglobin 15.1 Hematocrit 46.4 Mean Corpuscular Volume 85.6 Mean Corpuscular Hemoglobin 27.9 L Mean Corpuscular Hemoglobin Concent 32.5 Red Cell Distribution Width 14.0 Platelet Count 177 Mean Platelet Volume 12.2 H Neutrophils % 62.2 Lymphocytes % 22.9 Monocytes % 9.9 Eosinophils % 4.4 Basophils % 0.3 Nucleated Red Blood Cells % 0.0 Neutrophils # 4.0 Lymphocytes # 1.5 Monocytes # 0.6 Eosinophils # 0.3 Basophils # 0.0 Nucleated Red Blood Cells # 0.0 Sodium Level 136 Potassium Level 3.6 Chloride Level 99 Carbon Dioxide Level 27 Anion Gap 14 Blood Urea Nitrogen 13 Creatinine 0.94 Glucose Level 217 Calcium Level 8.7 Test 01/31/17 08:00 01/31/17 12:25 Bedside Glucose 211 205 Medications Medications Current Medications Aspirin (Aspirin) 325 mg DAILY PO Last administered on 01/31/17 08:39; Admin Dose 325 MG; Start 01/29/17 at 09:00 Carvedilol (Coreg) 3.125 mg BID PO Last administered on 01/31/17 08:39; Admin Dose 3.125 MG; Start 01/29/17 at 09:00 Acetaminophen (Tylenol Tab) 650 mg Q4H PRN PO PAIN AND OR ELEVATED TEMP; Start 01/29/17 at 01:00 Acetaminophen/ Hydrocodone Bitart ([place] (5/325)) 1 tab Q4H PRN PO PAIN Last administered on 01/29/17 17:16; Admin Dose 1 TAB; Start 01/29/17 at 01:00 Morphine Sulfate (morphine) 2 mg Q4H PRN IM PAIN; Start 01/29/17 at 01:00 Enoxaparin Sodium (Lovenox) 40 mg DAILY SC Last administered on 01/31/17 08:51 ; Admin Dose 40 MG; Start 01/29/17 at 09:00 Nitroglycerin (Nitroglycerin (Sl Tab) 0.4 Mg) 1 tab Q5M PRN SL ANGINA; Start at 01:00 Diagnostic Test (Pha) (Accu-Chek) 1 ea 02 XX Last administered on 01/31/17 02: 21; Admin Dose 1 EA; Start 01/29/17 at 02:00 Insulin Glargine (Lantus) 40 unit DAILY@08 SC Last administered on 01/31/17 08 :42; Admin Dose 40 UNIT; Start 01/29/17 at 08:00 Miscellaneous Information 1 ea NOTE XX ; Start 01/29/17 at 01:00 Glucose (Glutose) 15 gm Q15M PRN PO DECREASED GLUCOSE; Start 01/29/17 at 01:00 Glucose (Glutose) 22.5 gm Q15M PRN PO DECREASED GLUCOSE; Start 01/29/17 at 01: 00 Dextrose (D50w Syringe) 25 ml Q15M PRN IV DECREASED GLUCOSE; Start 01/29/17 at 01:00 Dextrose (D50w Syringe) 50 ml Q15M PRN IV DECREASED GLUCOSE; Start 01/29/17 at 01:00 Glucagon (Glucagen) 1 mg Q15M PRN IM DECREASED GLUCOSE; Start 01/29/17 at 01:00 Glucose (Glutose) 15 gm Q15M PRN BUCCAL DECREASED GLUCOSE; Start 01/29/17 at 01 :00 Isosorbide Dinitrate (Isordil) 10 mg TID PO Last administered on 01/31/17 14: 20; Admin Dose 10 MG; Start 01/29/17 at 21:00 Clopidogrel Bisulfate (plaVIX) 75 mg DAILY PO Last administered on 01/31/17 08 :39; Admin Dose 75 MG; Start 01/30/17 at 09:00 Benazepril HCl (Lotensin) 20 mg BID PO Last administered on 01/31/17 08:40; Admin Dose 20 MG; Start 01/30/17 at 21:00 FLACO SETHI M.D. Jan 31, 2017 16:20
[2017-01-31] MEDS ORDERED: ATOR20TA65 PO (16:40)
[2017-01-31] MEDS ORDERED: ISOS10TA2 PO (16:40)
[2017-01-31] MEDS ORDERED: CARV3.1260 PO (16:40)
[2017-01-31] MEDS ORDERED: CLOP75TA28 PO (16:40)
--- NOTE | 2017-01-31 17:37 | PDOCDIS ---
Discharge Instructions CONDITION Patient Condition: Stable HOME CARE INSTRUCTIONS: Special Diet: cardiac 1800 raymundo ACTIVITY: Activity Restrictions: Slowly Increase Activity Rest between Activity Avoid heavy lifting Do not operate Machinery Do not operate Power Tool Avoid Heavy Housework FOLLOW UP/APPOINTMENTS Follow-up Plan FU with PMD X 1WEEK FU with Cardiology as recommended Call 911 or go to the nearest hospital if symptoms get worse - dw patient- verbalized understanding dc instructions. REGINA BUI Jan 31, 2017 17:37
--- NOTE | 2017-01-31 17:51 | DS ---
Date/Time of Note Date/Time of Note DATE: 01/31/17 TIME: 17:51 Discharge Summary Admission/Discharge Info Admit Date/Time Jan 28, 2017 at 22:22 Discharge Date/Time Jan 31, 2017 at 17:27 Discharge Diagnosis - Chest pain- resolved. - Cardiomyopathy with 29% left ventricular ejection fraction, by echo. Assessed for ischemic etiology. - CAD with hx of PTCA and stent placement. patent by catheterization at that time. - Hypertension. -Dyslipidemia. -Poorly controlled diabetes mellitus with hemoglobin A1c above 14. -Poor medical compliance - reinforced compliance, reinforced the importance of taking all his medications. fu. diet, exercise, patient agreed Further recommendations based on clinical course. Plan of plan of care discussed with Dr. Cortez. Patient Condition: Stable Hx of Present Illness Hospital Course This is a 51-year-old male with a history of coronary artery disease with 6 cardiac stents is admitted with c/o had chest pain off and on for the past 3- 4 days that was initially relieved by nitro sublingual. But eventually chest pain was unrelieved. Denies any chest pain- at present. Patient stress test showed LVEF 29 %. Got cleared by brick loader to discharge today. Constitutional: alert, oriented, well developed Respiratory: clear to auscultation, normal air movement Cardiovascular: nl pulses, regular rate and rhythm Gastrointestinal: non-tender, soft Musculoskeletal: nl extremities to inspection Extremities: normal pulses Neurological: nl mental status, nl speech Dw Dr Cortez.staff.patient Home Meds Active Scripts Isosorbide Dinitrate* (Isordil*) 10 Mg Tablet, 10 MG PO TID for 30 Days, TAB Prov:REGINA BUI 01/31/17 Clopidogrel Bisulfate (Clopidogrel) 75 Mg Tablet, 75 MG PO DAILY for 30 Days, TAB Prov:REGINA BUI 01/31/17 Carvedilol* (Carvedilol*) 3.125 Mg Tablet, 3.125 MG PO BID for 30 Days, TAB Prov:REGINA BUI 01/31/17 Atorvastatin Calcium (Atorvastatin Calcium) 20 Mg Tablet, 20 MG PO HS for 30 Days, TAB Prov:REGINA BUI 01/31/17 Aspirin* (Aspirin* EC) 81 Mg Tabec, 81 MG PO DAILY, #30 Prov:SETH AVENDANO 08/13/15 Insulin Aspart* (Novolog Insulin Pen*) 100 Unit/Ml Soln, 4 UNIT SC WITH MEALS for 30 Days Prov:SETH AVENDANO 08/13/15 Reported Medications Clopidogrel Bisulfate* (Clopidogrel Bisulfate*) 75 Mg Tablet, 75 MG PO DAILY, # 30 TAB 01/28/17 Benazepril Hcl* (Benazepril Hcl*) 20 Mg Tablet, 20 MG PO DAILY, #30 TAB 01/28/17 Spironolactone* (Aldactone*) Unknown Strength Susp, 0 PO DAILY for 30 Days, BOTTLE (COMPOUNDED) 01/28/17 Insulin Glargine* (Lantus*) 100 Unit/Ml Soln, 40 UNIT SC QAM, #1 VIAL 11/13/15 Discontinued Reported Medications Carvedilol* (Carvedilol*) 25 Mg Tablet, 25 MG PO BID, #60 TAB 01/28/17 Spironolactone* (Aldactone*) 25 Mg Tablet, 25 MG PO DAILY, #30 TAB 01/28/17 Gabapentin* (Gabapentin*) 300 Mg Capsule, 300 MG PO TID, #90 08/10/15 Nitroglycerin* (Nitrostat*) 0.4 Mg Tab.subl, 0.4 MG SL Q5MIN Y for CHEST PAIN, BOTTLE 07/04/14 Discontinued Scripts Furosemide* (Lasix*) 40 Mg Tablet, 40 MG PO DAILY for 30 Days, TAB Prov:SETH AVENDANO 11/16/15 Potassium Chloride* (Klor-Con*) 20 Meq Tabsr, 20 MEQ PO BID for 30 Days, TAB Prov:SETH AVENDANO 11/16/15 Metoprolol Tartrate* (Lopressor*) 25 Mg Tab, 25 MG PO BID for 30 Days, TAB Prov:SETH AVENDANO 11/16/15 Metolazone* (Metolazone*) 5 Mg Tablet, 5 MG PO DAILY for 30 Days, TAB Prov:SETH AVENDANO 11/16/15 Lisinopril* (Lisinopril*) 20 Mg Tablet, 20 MG PO BID for 30 Days, TAB Prov:SETH AVENDANO 11/16/15 Primary Care Provider Chaparro Cortez MD Pending Labs Laboratory Tests Test 01/30/17 17:57 01/30/17 21:06 01/31/17 02:11 01/31/17 06:27 Bedside Glucose 198mg/dL (70-220) 212mg/dL (70-220) 183mg/dL (70-220) White Blood Count 6.410^3/ul (4.8-10.8) Red Blood Count 5.4210^6/ul (4.70-6.10) Hemoglobin 15.1g/dl (14.0-18.0) Hematocrit 46.4% (42.0-52.0) Mean Corpuscular Volume 85.6fl (82.0-101.0) Mean Corpuscular Hemoglobin 27.9pg (29.0-33.0) Mean Corpuscular Hemoglobin Concent 32.5g/dl (32.0-37.0) Red Cell Distribution Width 14.0% (11.5-14.5) Platelet Count 96727^3/UL (140-415) Mean Platelet Volume 12.2fl (7.4-10.4) Neutrophils % 62.2% (39.0-77.0) Lymphocytes % 22.9% (15.0-51.0) Monocytes % 9.9% (0.0-11.0) Eosinophils % 4.4% (0.0-7.0) Basophils % 0.3% (0.0-2.0) Nucleated Red Blood Cells % 0.0/100WBC (0.0-0.0) Neutrophils # 4.010^3/ul (1.6-7.5) Lymphocytes # 1.510^3/ul (0.8-2.9) Monocytes # 0.610^3/ul (0.3-0.9) Eosinophils # 0.310^3/ul (0.0-0.5) Basophils # 0.010^3/ul (0.0-0.1) Nucleated Red Blood Cells # 0.010^3/ul (0.0-0.0) Sodium Level 136mmol/L (135-144) Potassium Level 3.6mmol/L (3.5-5.1) Chloride Level 99mmol/L (97-110) Carbon Dioxide Level 27mmol/L (21-31) Anion Gap 14 (8-16) Blood Urea Nitrogen 13mg/dl (7-20) Creatinine 0.94mg/dl (0.61-1.24) Glucose Level 217mg/dl (70-220) Calcium Level 8.7mg/dl (8.4-10.2) Test 01/31/17 08:00 01/31/17 12:25 Bedside Glucose 211mg/dL (70-220) 205mg/dL (70-220) REGINA BUI Jan 31, 2017 17:51
[2017-01-31] MEDS ORDERED: ATORVASTATIN 20 MG TAB PO SCH (21:00)
== END 2017-01-31 17:27 | disposition home or self-care (01) | DRG 313 ==
LOC: E/R 19:05 → TEL 22:22
PROVIDERS: ADMIT Internal Medicine; ATTEND Internal Medicine
DX: R07.89 Other chest pain (principal); I25.2 Old myocardial infarction; E11.65 Type 2 diabetes mellitus with hyperglycemia; I10 Essential (primary) hypertension; I25.10 Atherosclerotic heart disease of native coronary artery without angina pectoris; I45.10 Unspecified right bundle-branch block; I25.5 Ischemic cardiomyopathy; K21.9 Gastro-esophageal reflux disease without esophagitis; E78.5 Hyperlipidemia, unspecified; M19.90 Unspecified osteoarthritis, unspecified site; Z95.5 Presence of coronary angioplasty implant and graft; Z91.14 Patient's other noncompliance with medication regimen; Z79.82 Long term (current) use of aspirin; Z79.4 Long term (current) use of insulin
CPT/HCPCS: 36415; 71010; 78452; 80048; 80053; 80061; 82962; 83036; 84439; 84484; 85025; 85610; 85730; 93005; 93017; 93306; 96374; 96375; 96376; J1940; A9500; A9505; J1170; J1650; J1815; J2405; J2785

== ENCOUNTER → 2017-02-12 | Outpatient (CLI) | payer MEDICARE, OTHER ==
[~2017-02-12] MED LIST changes: +ALDS PO; +ATOR20TA65 PO; +BENA20TA48 PO; +CARV3.1260 PO; +CLOP75TA28 PO; +CLOP75TA4 PO; -FURO-109 PO; -GABA300C16 PO; +ISOS10TA2 PO; -LISI20TA11 PO; -METO-448 PO; -METO5TAB65 PO; -NIT4 SL; -POTA-57 PO
== END | disposition home or self-care (01) ==
LOC: DIB 11:09
PROVIDERS: ATTEND Emergency Medicine
DX: Z02.9 Encounter for administrative examinations, unspecified (principal)

== ENCOUNTER 2018-01-31 12:16 | Observation (INO) | END 2018-02-02 19:24 | disposition left against medical advice (07) ==

== ENCOUNTER 2018-04-20 09:38 | Emergency (ER) | END 2018-04-20 14:30 | disposition home or self-care (01) ==

== ENCOUNTER → 2018-06-04 | Day surgery (SDC) | END | disposition home or self-care (01) ==

== ENCOUNTER 2018-06-30 14:10 | Inpatient (IN) | payer MEDICARE, OTHER ==
[~2018-06-30] VITALS: Ht 167.6 cm; Wt 108.5 kg
[~2018-06-30 14:10] MED LIST changes: +ALBU8.5H8 INH; -ALDS PO; -ASPI-664 PO; +ASPI81TA52 PO; -ATOR20TA65 PO; -BENA20TA48 PO; +BENA40TA56 PO; -CARV3.1260 PO; +CEPH-443 PO; +CLOP75TA27 PO; -CLOP75TA28 PO; -CLOP75TA4 PO; +FURO40TA4 PO; -ISOS10TA2 PO; +TERB250T46 PO
--- NOTE | 2018-06-30 14:18 | ERD ---
ER Documentation Chief Complaint Chief Complaint sob HPI The patient is a 52-year-old male, presenting to the ER because of acute dysp benitez, fever from the [place] [facility]. He is unable to provide any history, the history is obtained from the publishing systems analyst and medical record. Past medical history: Cardiomyopathy with low EF of 29%, CAD, hypertension, dyslipidemia, diabetes mellitus, history of CVA, chronic respiratory failure Past surgical history: Stent PCI, tracheostomy connecting to room air usually, craniotomy Social history/review of system: Unable to obtain due to his condition Medications Home Meds Reported Medications Acetylcysteine* (Mucomyst*) 4 Ml Soln, 3 ML NEB BID, EA 06/30/18 Na Phos,M-B/Na Phos,Di-Ba (Fleet Enema Extra) 230 Ml Enema, 230 ML RC NEEDED, ENEMA 06/30/18 Bisacodyl* (Bisacodyl*) 10 Mg Supp, 10 MG NV Q24H PRN for NEEDED, SUPP 06/30/18 Magnesium Hydroxide* (Milk Of Magnesia*) 400 Mg/5 Ml Oral.susp, 30 ML GTB Q24H for CONSTIPATION, ML 06/30/18 Sennosides* (Senna Lax*) 8.6 Mg Tablet, 2 TAB GTB BID, TAB 06/30/18 Insulin Aspart* (Novolog Insulin Pen*) 100 Unit/Ml Soln, 0 SC .SLIDING SCALE AC, EA IF BS 0-120=0 UNITS,120-150=0 UNIT, 151-200=1 UNIT, 201-250=2 UNIT, 251-300=3 UNIT, 301-350=4 UNIT, 351-400=5 UNIT, ABOVE 400=6 UNIT AND CALL MD. 06/30/18 Glucagon HCl (Glucagon HCl) 1 Mg Vial, 1 MG IJ NEEDED, VIAL IF BS BELOW 60 06/30/18 Insulin NPH Human Isophane (Humulin N) 100 Unit/1 Ml Vial, 28 UNIT SQ Q8H, VIAL 06/30/18 Hydrocodone/Acetaminophen ([place] 5-325 Tablet) 1 Each Tablet, 1 EACH GTB Q6H, TAB NEEDED FOR PAIN 06/30/18 Acetaminophen* (Tylenol*) 500 Mg Tab, 1000 MG GTB Q4H PRN for PAIN 4-6/10, TAB 06/30/18 Acetaminophen* (Tylenol*) 325 Mg Tablet, 650 MG GTB PRN PRN for TRACH TUBE CHANGE, TAB 06/30/18 Acetaminophen* (Tylenol*) 325 Mg Tablet, 650 MG GTB Q4H PRN for MILD PAIN LEVEL 1-3, TAB AND FEVER 100 AND ABOVE 06/30/18 Amino Acids/Protein Hydrolys (PRO-STAT LIQUID) 30 Ml Liquid.pkt, 30 ML GTB DAILY SUGAR FREE 06/30/18 Cran/Vitc/Mannose/Inulin/Brom (Uti-Stat Liquid) 3,875 Mg/30 Ml Liquid, 30 ML GTB DAILY 06/30/18 Hydralazine Hcl* (Hydralazine Hcl*) 25 Mg Tab, 25 MG GTB Q6H, #60 TAB 06/30/18 Furosemide* (Lasix* Liq) 40 Mg/5 Ml Cup, 20 MG GTB DAILY, EA 06/30/18 Carvedilol* (Carvedilol*) 3.125 Mg Tablet, 3.125 MG GTB BID, #60 TAB 06/30/18 Atorvastatin* (Atorvastatin*) 80 Mg Tablet, 80 MG GTB QHS, #30 TAB 06/30/18 Aspirin* (Aspirin* EC) 81 Mg Tablet.dr, 162 MG GTB DAILY, TAB 06/30/18 Valproic Acid* (Valproic Acid* Liq) 250 Mg/5 Ml Syrup, 10 ML GTB Q8H, ML 06/30/18 Sucralfate* (Carafate*) 1 Gm/10 Ml Susp, 1 GM GTB QID, EA 06/30/18 Lisinopril* (Lisinopril*) 5 Mg Tablet, 5 MG GTB DAILY, #30 TAB 06/30/18 Lansoprazole* (Lansoprazole*) 30 Mg Capsule.dr, 30 MG GTB BID, CAP 06/30/18 Lactobacillus Acidophilus (Acidophilus Lactobacillus) 1 Each Capsule, 1 EACH GTB BID, CAP 06/30/18 Discontinued Reported Medications Aspirin (Low Dose Aspirin) 81 Mg Tablet.dr, 81 MG PO DAILY, #30 TAB 01/31/18 Terbinafine* (Lamisil*) 250 Mg Tablet, 250 MG PO DAILY, TAB 01/31/18 Furosemide* (Furosemide*) 40 Mg Tablet, 40 MG PO BID, TAB 01/31/18 Insulin Aspart* (Novolog Insulin Pen*) 100 Unit/Ml Soln, 0 SC WITH MEALS, EA sliding scale no scale given 01/31/18 Insulin Glargine* (Lantus*) 100 Unit/Ml Soln, 40 UNIT SC QAM, #1 VIAL 01/31/18 Clopidogrel Bisulfate (Clopidogrel) 75 Mg Tablet, 75 MG PO DAILY, #30 TAB 01/31/18 Benazepril Hcl* (Benazepril Hcl*) 40 Mg Tablet, 40 MG PO DAILY, #30 TAB 01/31/18 Discontinued Scripts Cephalexin* (Keflex*) 500 Mg Capsule, 500 MG PO QID for 7 Days, CAP Prov:ANEESH GAMINO MD 04/20/18 Albuterol Sulfate* (Proair HFA*) 8.5 Gm Hfa.aer.ad, 2 PUFF INH Q6H PRN for WHEEZING AND SOB, #1 INHALER Prov:ANEESH GAMINO MD 04/20/18 Allergies Allergies: Coded Allergies: No Known Drug Allergies (Verified Allergy, Mild, 06/30/18) PMhx/Soc History of Surgery: Yes (Right hemicranionectomy, trach and gtube placement, ) Hx Neurological Disorder: Yes (stroke) Hx Respiratory Disorders: Yes (cuffed shiley 8.0, vent dependent) Hx Cardiac Disorders: Yes (HTN, high cholesterol) Hx Tobacco Use: No (unknown) Physical Exam Vitals Vital Signs Date Temp Pulse Resp B/P (MAP) Pulse Ox O2 O2 Flow FiO2 Time Delivery Rate 06/30/18 81 16 100 40 18:52 06/30/18 103 178/98 98 [place] 18:42 (124) l Ventilato r 06/30/18 81 21 100 40 17:55 06/30/18 85 19 156/126 100 [place] 17:30 (136) l Ventilato r 06/30/18 93 18 70/41 (51) 97 [place] 17:00 l Ventilato r 06/30/18 98 16 79/55 (63) 97 Room Air 16:26 06/30/18 105 23 100 40 15:56 06/30/18 102.9 14:49 06/30/18 122 17 99 60 14:24 06/30/18 102.8 155 32 150/113 100 14:21 (125) Physical Exam Const: Severe acute distress. Head: Atraumatic. Eyes: Normal Conjunctiva. ENT: Normal External Ears, Nose and Mouth. Neck: Full range of motion. No meningismus. Resp: Clear to auscultation anterolateral, tachypneic Cardio: Regular tachycardic Abd: Soft, non distended, normal bowel sounds, non tender. Skin: No petechiae or rashes. Back: No midline or flank tenderness. Ext: No cyanosis, or edema. Neur: Unable to perform due to his condition Psych: Unable to perform due to his condition Result Diagram: 06/30/18 1420 06/30/18 142 Results 24 hrs Laboratory Tests Test 06/30/18 14:17 06/30/18 14:20 06/30/18 14:25 06/30/18 14:47 Bedside Glucose 245 mg/dL White Blood 20.7 10^3/ul Count Red Blood Count 4.15 10^6/ul Hemoglobin 10.5 g/dl Hematocrit 33.3 % Mean Corpuscular 80.2 fl Volume Mean Corpuscular 25.3 pg Hemoglobin Mean Corpuscular 31.5 g/dl Hemoglobin Dolores nt Red Cell 14.4 % Distribution Width Platelet Count 474 10^3/UL Mean Platelet 9.9 fl Volume Immature 0.500 % Granulocytes % Neutrophils % 85.8 % Lymphocytes % 6.9 % Monocytes % 6.0 % Eosinophils % 0.4 % Basophils % 0.4 % Nucleated Red 0.0 /100WBC Blood Cells % Immature 0.110 10^3/ul Granulocytes # Neutrophils # 17.7 10^3/ul Lymphocytes # 1.4 10^3/ul Monocytes # 1.3 10^3/ul Eosinophils # 0.1 10^3/ul Basophils # 0.1 10^3/ul Nucleated Red 0.0 10^3/ul Blood Cells # Prothrombin Time 14.1 Sec Prothrombin Time 1.1 Ratio INR 1.08 International Normalized Ratio Activated 31.4 Sec Partial Thrombop last Time Sodium Level 131 mmol/L Potassium Level 4.3 mmol/L Chloride Level 89 mmol/L Carbon Dioxide 32 mmol/L Level Anion Gap 10 Blood Urea 22 mg/dl Nitrogen Creatinine 1.06 mg/dl Est Glomerular > 60 mL/min Filtrat Rate mL/min Glucose Level 218 mg/dl Calcium Level 9.7 mg/dl Total Bilirubin 0.0 mg/dl Direct Bilirubin 0.00 mg/dl Indirect 0.0 mg/dl Bilirubin Aspartate Amino 36 IU/L Transf (AST/SGOT ) Alanine 7 IU/L Aminotransferase (ALT/SGPT) Alkaline 220 IU/L Phosphatase Troponin I < 0.012 ng/ml Total Protein 9.5 g/dl Albumin 3.7 g/dl Globulin 5.80 g/dl Albumin/Globulin 0.63 Ratio Thyroid 3.390 MIU/L Stimulating Hormone (TSH) POC Venous 2.6 mmol/L Lactate Urine Color SONJA Urine Clarity CLOUDY Urine pH 5.0 Urine Specific 1.018 Cascade Urine Ketones NEGATIVE mg/dL Urine Nitrite NEGATIVE mg/dL Urine Bilirubin NEGATIVE mg/dL Urine 1+ mg/dL Urobilinogen Urine Leukocyte 3+ Yari/ul Esterase Urine 9 /HPF Microscopic RBC Urine > 182 /HPF Microscopic WBC Urine Bacteria MANY /HPF Urine Mucus FEW /HPF Urine Hemoglobin 1+ mg/dL Urine Glucose 1+ mg/dL Urine Total 2+ mg/dl Protein Test 06/30/18 15:30 06/30/18 16:41 06/30/18 18:09 Blood Gas Blood arterial Specimen Source Arterial Blood 06/30/2018 3:40:2 Date Drawn 4 PM Arterial Blood 7.436 pH (Temp corrected) Arterial Blood 44.1 mmhg pCO2 (Temp correct) Arterial Blood 215.1 mmHG pO2 (Temp corrected) Arterial Blood 29.0 mmol/L HCO3 Arterial Blood 4.3 mmol/L Base Excess Arterial Blood 99.3 mmHG Oxygen Saturatio n Rl Test ACCEPTAB Arterial Blood Left Radial Gas Puncture Site Arterial 0.3 % Blood Carboxyhem oglobin Arterial Blood 0.4 % Methemoglobin Blood Gas A-a O2 164.2 mmHg Differential Oxyhemoglobin 98.6 % Percent Blood Gas 37.0 C Temperature Blood Gas 16.0 Respiration Rate Blood Gas Actual 19 Respiration Rate Blood Gas VENT - AC Modality FiO2 60.0 % Blood Gas Tidal 500.0 mL Volume Blood Gas Low 5.0 cmH2O PEEP Setting Blood Gas M.D. Notified Whom Blood Gas 06/30/2018 3:52:5 Notified Time 6 PM POC Venous 2.4 mmol/L 2.4 mmol/L Lactate Current Medications Medications Dose Sig/Emerson Start Time Status Last (Trade) Ordered Route PRN Stop Time Admin Dose Reason Admin Sodium 2,100 ml BOLUS OVER 2 06/30/18 DC 06/30/18 Chloride HOURS STAT 14:33 06/30/18 15:03 (NS) IV* 14:39 Vancomycin 250 ml @ ONCE ONCE 06/30/18 DC 06/30/18 HCl 125 mls/hr IVPB 15:00 06/30/18 15:05 16:59 Piperacillin 100 ml @ ONCE ONCE 06/30/18 DC 06/30/18 Sod/ 200 mls/hr IVPB 15:00 06/30/18 15:03 Tazobactam 15:29 Sod 650 mg ONCE ONCE 06/30/18 DC 06/30/18 Acetaminophen NV 16:00 06/30/18 16:54 (Tylenol 16:01 Supp) Lidocaine 5 ml ONCE ONCE 06/30/18 DC (Xylocaine SC 17:00 06/30/18 1% (Mpf)) 17:01 Sodium 1,000 ml @ Q1H ONCE 06/30/18 DC Chloride 1,000 mls/hr IV 17:00 06/30/18 17:59 250 ml @ TITRATE IV 06/30/18 Norepinephrin 1.875 mls/ 17:00 e hr Lorazepam 1 mg ONCE ONCE 06/30/18 DC (Ativan) IV 18:00 06/30/18 18:01 Vecuronium 10 mg ONCE IV 06/30/18 [place] 18:30 (Norcuron) Procedures/[place] [id number] Radiology Main Line: [phone] DIAGNOSTIC IMAGING REPORT Patient: CEDRIC KHAN : 1965 Age: 52 Sex: M MR #: [id number] DOS: 06/30/18 1433 Ordering MD: CARY HUMPHRIES MD Location: E/R Room/Bed: PROCEDURE: XR Chest. CLINICAL INDICATION: chest pain TECHNIQUE: Single frontal view of the chest was obtained COMPARISON: CR CHEST 11/13/2015 FINDINGS: There is mild cardiomegaly. There is right lower lobe consolidation. There is mild left upper lobe linear atelectasis. There is a tracheostomy tube in place. There is a cardiac recording device overlying the left lower chest. There is no pleural effusion or pneumothorax. RPTAT: AA IMPRESSION: Right lower lobe pneumonia. .Darryl Tapia MD, MD Date Time Electronically viewed and signed by .Darryl Tapia MD, MD on 06/30/2018 17:24 .A/ CC: CARY HUMPHRIES MD [phone] EKG: Read by emergency physician Rate/Rhythm: Wide Complex tachycardia 145 beats/min QRS, ST, T-waves: No ST elevation, no T inversion, RBBB Impression: Abnormal EKG MEDICAL MAKING DECISION: The patient is a 52-year-old male, presenting with acute on chronic respiratory failure, acute severe sepsis, acute cystitis, acute pneumonia. He was treated on ventilator, Tylenol suppository for fever, his initial weight was documented at 70 kg, was treated with normosaline 30 mm/kg IV/Vancomycin IV/Zosyn IV. However it was changed later to 86 kg. I have asked the nurse to revise IV fluid as 30 mm/kg IV. Omar was requested The differential diagnoses considered include but are not limited to pneumonia, aspiration pneumonia, asthma, COPD, pneumonia, pulmonary embolus, pleural effusion, congestive heart failure. MDM: Patient's infectious symptoms have not stabilized and the patient is at risk of rapid decompensation. The patient will be admitted for careful hydration, antibiotic therapy, and infectious source control. SEVERE SEPSIS CRITERIA: Infectious source:pna, uti End organ damage indicated by: Lactate > 2.0 mmol/L Acute Resp Failure (sat < 92% w/o oxygen) SEPSIS MANAGEMENT Time of recognition of severe sepsis: 3:30 pm 3 HOUR BUNDLE Blood cultures x 2 before broad-spectrum antibiotics: Yes 30 ml/kg NS bolus completed Initial lactate2.6 Repeat lactatepending SEPTIC SHOCK ASSESSMENT: No lactic acid > 4.0 No persistent hypotension (SBP < 90 or 40 mmHg drop, MAP < 65) despite 30 mL/kg IV fluid bolus CRITICAL CARE Critical care time 35 minutes Emergent fluid management while maintaining close respiratory support. Provision of immediate and broad-spectrum antibiotic therapy. Simultaneous assessment for possible sources in order to direct targeted therapy. Consideration for invasive and chemical support to prevent cardiopulmonary c ollapse. Critical care time is independent of procedures performed. Departure Diagnosis: Primary Impression: Acute and chronic respiratory failure Additional Impressions: Severe sepsis PNA (pneumonia) UTI (urinary tract infection) Abnormal LFTs Condition: Critical Comments I discussed the findings with the patient. I discussed the patient with the hospitalist Dr Haro at 3:40 pm . who was made aware of the lab, the treatment, the patient condition. The patient is admitted to ICU Disclaimer: Inadvertent spelling and grammatical errors are likely due to EHR/di ctation software use and do not reflect on the overall quality of patient care. Also, please note that the electronic time recorded on this note does not necessarily reflect the actual time of the patient encounter. CARY HUMPHRIES MD Jun 30, 2018 14:18
[2018-06-30] MEDS ORDERED: SODIUM CHLORIDE 0.9% 1L BAG IV* STA (14:33)
[2018-06-30] MEDS ORDERED: VANCOMYCIN 1 GM (PMX) 250 ML IVPB ONE (15:00)
[2018-06-30] MEDS ORDERED: PIPER-TAZO 3.375 GM IV (PMX) 100 ML IVPB ONE (15:00)
[2018-06-30] MEDS ORDERED: LACT1CAP33 GTB (15:17)
[2018-06-30] MEDS ORDERED: LANS30CA GTB (15:17)
[2018-06-30] MEDS ORDERED: CARAS GTB (15:18)
[2018-06-30] MEDS ORDERED: LISI-313 GTB (15:18)
[2018-06-30] MEDS ORDERED: VLP250480 GTB (15:20)
[2018-06-30] MEDS ORDERED: ASPI-817 GTB (15:21)
[2018-06-30] MEDS ORDERED: CARV3.1260 GTB (15:22)
[2018-06-30] MEDS ORDERED: ATOR-2 GTB (15:22)
[2018-06-30] MEDS ORDERED: LASS GTB (15:24)
[2018-06-30] MEDS ORDERED: HYDR-3671 GTB (15:24)
[2018-06-30] MEDS ORDERED: CRAN3875 GTB (15:25)
[2018-06-30] MEDS ORDERED: AMIN30LI GTB (15:26)
[2018-06-30] MEDS ORDERED: TYL500 GTB (15:32)
[2018-06-30] MEDS ORDERED: ACET325T33 GTB ×2 (15:32)
[2018-06-30] MEDS ORDERED: HYDR-4011 GTB (15:34)
[2018-06-30] MEDS ORDERED: NPH,100V SQ (15:35)
[2018-06-30] MEDS ORDERED: GLUC1VIA6 IJ (15:37)
[2018-06-30] MEDS ORDERED: NOVO3I SC (15:40)
[2018-06-30] MEDS ORDERED: SENN-120 GTB (15:41)
[2018-06-30] MEDS ORDERED: MAGN400O19 GTB (15:41)
[2018-06-30] MEDS ORDERED: BISA10SU75 PR (15:42)
[2018-06-30] MEDS ORDERED: NA P230E RC (15:43)
[2018-06-30] MEDS ORDERED: MUCO4 NEB (15:46)
[2018-06-30] MEDS ORDERED: ACETAMINOPHEN 650 MG SUPP PR ONE (16:00)
[2018-06-30] MEDS ORDERED: SOD CHLORIDE 0.9% 1,000 ML IV ONE (17:00)
[2018-06-30] MEDS ORDERED: LIDOCAINE 1% (MPF) 5 ML VIAL SC ONE (17:00)
--- NOTE | 2018-06-30 17:07 | HP ---
Date/Time of Note Date/Time of Note DATE: 06/30/18 TIME: 16:54 Assessment/Plan VTE Prophylaxis Pharmacological prophylaxis: LMWH Lines/Catheters IV [facility]ter [facility]from [facility] Saline Lock Urinary Cath still in place: No Assessment/Plan Assessment/Plan -Sepsis most likely secondary to urinary tract infection and possible pneumonia, will obtain urine and blood cultures. Continue broad-spectrum antibiotics. Follow-up on chest x-ray. Dr. Hodge is asked to see patient in infection disease consultation. -Septic shock, patient does not respond to IV fluid challenge will start levo fed for blood pressure support. Dr. Vincent is asked to see patient in cardiology consultation. -Chronic tracheostomy -Dysphagia with PEG -Coronary artery disease status post stent placement to LAD and RCA -Cardiomyopathy with ejection fraction of 25-30% -Hypertension -Diabetes -Morbid obesity -Chronic encephalopathy Further recommendations based on clinical course. Plan of care discussed with Dr. Cortez. Result Diagram: 06/30/18 1420 06/30/18 1420 Results 24hrs Laboratory Tests Test 06/30/18 14:17 06/30/18 14:20 06/30/18 14:25 06/30/18 14:47 Bedside Glucose 245 H White Blood Count 20.7 #H Red Blood Count 4.15 L Hemoglobin 10.5 #L Hematocrit 33.3 #L Mean Corpuscular 80.2 L Volume Mean Corpuscular 25.3 L Hemoglobin Mean Corpuscular 31.5 L Hemoglobin Concent Red Cell 14.4 Distribution Width Platelet Count 474 #H Mean Platelet 9.9 Volume Immature 0.500 H Granulocytes % Neutrophils % 85.8 H Lymphocytes % 6.9 L Monocytes % 6.0 Eosinophils % 0.4 Basophils % 0.4 Nucleated Red 0.0 Blood Cells % Immature 0.110 H Granulocytes # Neutrophils # 17.7 H Lymphocytes # 1.4 Monocytes # 1.3 H Eosinophils # 0.1 Basophils # 0.1 Nucleated Red 0.0 Blood Cells # Prothrombin Time 14.1 Prothrombin Time 1.1 Ratio INR International 1.08 Normalized Ratio Activated 31.[address] Time Sodium Level 131 L Potassium Level 4.3 Chloride Level 89 L Carbon Dioxide 32 H Level Anion Gap 10 Blood Urea 22 H Nitrogen Creatinine 1.06 Est Glomerular > 60 Filtrat Rate mL/min Glucose Level 218 Calcium Level 9.7 Total Bilirubin 0.0 L Direct Bilirubin 0.00 Indirect Bilirubin 0.0 Aspartate Amino 36 Transf (AST/SGOT) Alanine 7 L Aminotransferase ( ALT/SGPT) Alkaline 220 H Phosphatase Troponin I < 0.012 Total Protein 9.5 H Albumin 3.7 Globulin 5.80 H Albumin/Globulin 0.63 Ratio POC Venous Lactate 2.6 *H Urine Color SONJA Urine Clarity CLOUDY A Urine pH 5.0 Urine Specific 1.018 Keavy Urine Ketones NEGATIVE Urine Nitrite NEGATIVE Urine Bilirubin NEGATIVE Urine Urobilinogen 1+ H Urine Leukocyte 3+ H Esterase Urine Microscopic 9 H RBC Urine Microscopic > 182 H WBC Urine Bacteria MANY A Urine Mucus FEW A Urine Hemoglobin 1+ H Urine Glucose 1+ H Urine Total 2+ H Protein Test 06/30/18 15:30 06/30/18 16:41 Blood Gas Specimen Blood arterial Source Arterial Blood 06/30/2018 3:40:24 Date Drawn PM Arterial Blood pH 7.436 (Temp corrected) Arterial Blood 44.1 pCO2 (Temp correct) Arterial Blood pO2 215.1 H (Temp corrected) Arterial Blood 29.0 H HCO3 Arterial Blood 4.3 H Base Excess Arterial Blood 99.3 H Oxygen Saturation Rl Test ACCEPTAB Arterial Blood Gas Left Radial Puncture Site Arterial 0.3 Blood Carboxyhemog lobin Arterial Blood 0.4 Methemoglobin Blood Gas A-a O2 164.2 H Differential Oxyhemoglobin 98.6 Percent Blood Gas 37.0 Temperature Blood Gas 16.0 Respiration Rate Blood Gas Actual 19 Respiration Rate Blood Gas Modality VENT - AC FiO2 60.0 Blood Gas Tidal 500.0 Volume Blood Gas Low PEEP 5.0 Setting Blood Gas Notified M.DMelony Whom Blood Gas Notified 06/30/2018 3:52:56 Time PM POC Venous Lactate 2.4 *H HPI/ROS Admit Date/Time Admit Date/Time Hx of Present Illness The patient is a 52-year-old gentleman with extensive medical history including coronary artery disease status post stent placement, cardiomyopathy with decreased ejection fraction, hypertension, diabetes, morbid obesity, status post right hemicraniectomy for subdural hematoma, chronic tracheostomy, dysphagia with G-tube and chronic encephalopathy. Patient develop fever, tachypnea and Tachycardia and was brought for further evaluation to the emergency room. Patient had elevated white blood cells to 20,000 and elevated lactate. Urinalysis was indicative of urinary tract infection. Patient is undergoing IV fluid challenge, and started on broad-spectrum antibiotics. Patient also noted to have hypotension. Patient will be admitted to intensive care unit for further evaluation and management. ROS Unable to obtain due to patient's condition PMH/Family/Social Past Medical History Per HPI Medical History: congestive heart failure, coronary artery disease, diabetes, high cholesterol, hypertension Medications Current Medications Vancomycin HCl 250 ml @ 125 mls/hr ONCE ONCE IVPB Last administered on 06/30/18at 15:05; Admin Dose 125 MLS/HR; Start 06/30/18 at 15:00; Stop 06/30/18 at 16:59 Lidocaine (Xylocaine 1% (Mpf)) 5 ml ONCE ONCE SC ; Start 06/30/18 at 17:00; Stop 06/30/18 at 17:01 Sodium Chloride 1,000 ml @ 1,000 mls/hr Q1H ONCE IV ; Start 06/30/18 at 17:00; Stop 06/30/18 at 17:59 Norepinephrine 250 ml @ 1.875 mls/ hr TITRATE IV ; Start 06/30/18 at 17:00 Coded Allergies: No Known Drug Allergies (Verified Allergy, Mild, 06/30/18) Past Surgical History Past Surgical Hx: other (Status post right hemicraniectomy, status post tracheostomy, status post G-tube placement status post left cardiac cath and stent placement to LAD and RCA in 2011) Family History Significant Family History: other (Father at age of 55 of complications of coronary artery disease and diabetes, mother of complications from breast cancer) Social History Alcohol Use: none Smoking Status: Never smoker Drug Use: none Exam/Review of Systems Vital Signs Vitals Vital Signs Date Temp Pulse Resp B/P (MAP) Pulse Ox O2 O2 Flow FiO2 Time Delivery Rate 06/30/18 105 23 100 40 15:56 06/30/18 102.9 14:49 06/30/18 150/113 14:21 (125) Exam Constitutional: non-verbal, frail Head: other (Status post right craniectomy) Eyes: nl conjunctiva Neck: supple, other (Tracheostomy at the base of the neck, no bleeding) Respiratory: diminished breath sounds Cardiovascular: regular rate and rhythm Gastrointestinal: soft, non-tender, other (G-tube) Extremities: normal pulses Neurological: other (Nonverbal, did not response to any verbal stimuli, spontaneous movement of the extremities) Skin: nl turgor RADCHENKO,SETH Jun 30, 2018 17:05
[2018-06-30] MEDS: NORepinephrine 8MG/250 ML (PMX 250 ML IV SCH (18:00)
[2018-06-30] MEDS ORDERED: LORAZEPAM 2 MG INJ IV ONE (18:00)
[2018-06-30] MEDS: VECURONIUM 10 MG VIAL IV SCH (18:30)
--- NOTE | 2018-06-30 18:34 | CONS ---
DATE OF ADMISSION: 06/30/2018 DATE OF CONSULTATION: 06/30/2018 REASON FOR CONSULTATION: Cardiomyopathy with severely depressed left ventricular ejection fraction a nd history of prior patent stent placement. REQUESTING PHYSICIAN: Nia Cortez M.D. HISTORY OF PRESENT ILLNESS: Mr. Arroyo is a 52-year-old male well known to myself as a primary office patient with multiple prior hospital admissions, who carries a history of hypertension; diabetes marsha itus; dyslipidemia; somewhat recent stroke, hemorrhagic, take cared for at [facility] with s ubsequent chronic encephalopathy, prolonged respiratory failure requiring tracheostomy placement and dysphagia with G-tube, who had recently been admitted to [facility] for ongoing resp iratory care status post a hemorrhagic stroke. The patient was doing well, had been discharged to [facility] followup on the and now represents on the night with high-grade fevers, tachycardia and hypotension. The patient remains with left optic, does not respond to any questions pertaining to ch est pain, shortness of breath, palpitations. PAST MEDICAL HISTORY: As above in HPI. MEDICATIONS: Currently in the hospital are Levophed and IV fluid hydration. ALLERGIES: NO KNOWN DRUG ALLERGIES. SOCIAL HISTORY: No current tobacco, ETOH or illicit drug use, but history of tobacco. FAMILY HISTORY: No history of sudden cardiac or early CAD. REVIEW OF SYSTEMS: As above in HPI. CONSTITUTIONAL: Positive fevers. PULMONARY: Chronic. CARDIOVASCULAR: trached. GASTROINTESTINAL: Dysphagia, status post G-tube. GENITOURINARY: No hematuria. MUSCULOSKELETAL: Degenerative joint disease. PSYCHIATRIC: No documented psych history. NEUROLOGIC: Chronic encephalopathy. ENDOCRINE: Diabetes mellitus. PHYSICAL EXAMINATION: VITAL SIGNS: Temperature 102.9, blood pressure most recently is 78/40, pulse now the 70s to 80s, bas gerri bundle block. GENERAL: The patient is encephalopathic, nonresponsive. NECK: Tracheostomy in place. CHEST: Upper airway transmitted rhonchorous sounds. HEART: Regular rate and rhythm. Normal S1, increased S2, 1/6 systolic murmur, laterally displaced P FL. ABDOMEN: Positive bowel sounds, soft, positive G-tube. EXTREMITIES: Trace edema, 1+ pulses bilaterally posterior tibial. LABORATORY DATA: Most recently from today, white count 20.7, hemoglobin 10.5, platelet count of 474, a sodium of 131, potassium 4.3, creatinine 1.0, BUN of 22. Lactic level 2.4. Troponin negative. I NR 1.0. UA positive. ABG with a pH of 7.436, a PaO2 215, a pCO2 of 44. IMAGING STUDIES: No further imaging studies for my review at this time. ELECTROCARDIOGRAM: Reveals a wide complex tachycardia, baseline bundle block, rate of 145. The marlon ent's previous EKGs they were nontachycardic. Also, revealed a baseline bundle branch block and has had a single morphology. IMPRESSION: 1. Hypotension/shock state and likely septic. 2. Cardiomyopathy with decreased left ventricular ejection fraction, last known to be 30% by echo in 01/2018. 3. History of prior percutaneous transluminal coronary angioplasty and stent placements, most recent ly to LAD in 2014. 4. Urinary tract infection, likely urosepsis. 5. Diabetes mellitus. 6. Chronic respiratory failure, status post tracheostomy. 7. Dysphagia, status post G-tube. 8. Chronic encephalopathy. 9. Leukocytosis. 10. History of hemorrhagic cerebrovascular accident. RECOMMENDATIONS: 1. At this time, the patient will be admitted to the ICU for close monitoring. 2. The patient will be initiated on Levophed pressor support. Following blood pressure closely. 3. We will follow the patient's volume status closely. We will hold on diuresis at this time. 4. Reasonable to resume the patient's baby aspirin at this time. Watch for any bleeding complicatio n. 5. We will hold the patient's antihypertensive at this time in the setting of a shock state. 6. We will resume the patient's baseline statin therapy. 7. Would check blood cultures and initiate antibiotic therapy and follow the patient's urine culture for sensitivities and speciation. Thank you for allowing me to take part in the care of this patient. I will continue to follow very c losely with you with further recommendations to be made as the patient progresses through his [facility] clinical course. Dictated By: MAE BLAS/ROXANA Conf#: [id number] DID#: [id number] CC: NIA CORTEZ MD;*EndCC*
--- NOTE | 2018-06-30 19:47 | CONS ---
DATE OF ADMISSION: 06/30/2018 DATE OF CONSULTATION: 06/30/2018 TYPE OF CONSULTATION: Infectious disease. REASON FOR CONSULTATION: Antibiotic management. HISTORY OF PRESENT ILLNESS: Johan Arroyo is a 52-year-old male with numerous hospital admissions, who is admitted now with shortness of breath and is being seen for antibiotic management. His past problems include: 1. Hypertension. 2. Diabetes mellitus. 3. Dyslipidemia. 4. History of hemorrhagic stroke. 5. Chronic encephalopathy. 6. Prolonged respiratory failure requiring tracheostomy replacement. 7. Dysphagia to G-tube. The patient has recently been admitted to [facility] for ongoing respiratory care post-hemorrhag ic stroke. He was doing well and was discharged to outpatient followup on 06/29/2018 and now present s on the night with high-grade fever, tachycardia and hypotension. On admission, his white count was 20.7, H and H of 10.5 and 33.3, platelet count 474,000. BUN and creatinine is 22/1.06. PAST MEDICAL HISTORY: As outlined. PAST SURGICAL HISTORY: Status post right hemicraniotomy, status post tracheostomy, status post G-tub e placement, status post left cardiac catheterization and stent placement to the LAD and RCA in 2011. FAMILY HISTORY: Positive for coronary artery disease and diabetes. Mother of complications fro m breast cancer. SOCIAL HISTORY: Does not smoke, drink or abuse drugs. ALLERGIES: NONE TO PENICILLIN, SULFA OR FOODS. MEDICATIONS: Per chart. REVIEW OF SYSTEMS: As per HPI. PHYSICAL EXAMINATION: VITAL SIGNS: The patient has a temperature of 102.9. The patient's blood pressure did not respond t o IV fluid challenge and was started on Levophed for blood pressure support. SKIN: Without generalized rash. HEENT: Within normal limits. NECK: Supple. Tracheostomy at the base of the neck. LYMPH NODES: None palpable. CHEST: Decreased breath sounds at the bases. HEART: Without murmur or gallop. ABDOMEN: Soft, nontender, without organosplenomegaly or masses. G-tube in place. EXTREMITIES: Without cyanosis, clubbing or edema. RECTAL AND GENITAL: Deferred. NEUROLOGICAL: He is nonverbal, does not respond to verbal stimuli. He has spontaneous movement of h is extremities. IMPRESSION AND PLAN: The patient presents now with sepsis and septic shock, most likely secondary to urinary tract infection. As noted, his white count was 20.7, H and H of 10.5 and 33.3, platelet cou nt 474,000. BUN and creatinine was 22/1.06, but his lactate was 2.6 and 2.4. Urine has 3+ leukocyte esterase, greater than 182 white cells per high powered field. Chest x-ray: Mild cardiomegaly, rig ht lower lobe consolidation, mild left upper lobe linear atelectasis, tracheostomy in place. No pleu ral effusion, no pneumothorax. The patient was started on vancomycin and Zosyn. Blood cultures were drawn. Urine cultures were done. The patient is on vancomycin, Zosyn and norepinephrine to [facility] his blood pressure. I will dictate my findings to Dr. Cortez, nurse practitioner, [place] and Dr. Vincent in cardiology. Dictated By: WINIFRED NIETO MD, JD/ROXANA Conf#: [id number] DID#: [id number] CC: CARY HUMPHRIES MD;*EndCC*
--- NOTE | 2018-06-30 20:03 | EN ---
Date/Time of Note Date/Time of Note DATE: 06/30/18 TIME: 20:02 ER Progress Note I was informed by the nurse that his blood pressure remain low after NS 30 ml/kg IV fluid, therefore he needs a central line and pressor He was unable to to provide any consent, the central line was done on emergent basis Central Line Placement by me: After the patient was consented and a time out was performed, appropriate hand hygiene was performed, the skin site was fully prepped and maximal sterile barrier technique was employed where the patient was sterilely draped, and the provider wore a mask and sterile gown and gloves. Anesthesia: 1% lidocaine locally Location: right femoral Device: Multiple lumen Technique: Seldinger technique. Secured with suture. Results: Venous return from all ports with easy saline flush. No com plications. guide wire retrieved and disposed of. ED Ultrasound: Central line placed by me using concurrent ultrasound guidance done using sterile technique. Real time image archived in the medical record confirms vascular anatomy. He was started on Levophed CARY Gonzalez MD Jun 30, 2018 20:03
[2018-07-01] VITALS (34 sets, daily range): BP systolic 85–174; BP diastolic 53–93; PULSE 51–94; RESP 13–27; Ht 167.6 cm; Wt 108.5 kg
[2018-07-01] MEDS ORDERED: MAGNESIUM HYDROXIDE 30ML CUP PO PRN
[2018-07-01] MEDS ORDERED: NACL 0.9% 3 ML SYG IV SCH
[2018-07-01] MEDS ORDERED: LORAZEPAM 4 MG/ML VIAL IV PRN
[2018-07-01] MEDS ORDERED: IPRATROPIUM (NEB) 0.5 MG/2.5 ML AMP NEB PRN
[2018-07-01] MEDS ORDERED: ACETAMINOPHEN 650MG/20.3ML CUP PO PRN
[2018-07-01] MEDS ORDERED: DOCUSATE SODIUM 100 MG CAP PO PRN
[2018-07-01] MEDS ORDERED: morphine 2 MG INJ IV PRN
[2018-07-01] MEDS ORDERED: ALBUTEROL 0.083% (NEB) 2.5 MG/3 ML AMP NEB PRN
[2018-07-01] MEDS ORDERED: ONDANSETRON 4 MG INJ IV PRN
[2018-07-01] MEDS ORDERED: BISACODYL 10 MG SUPP PR PRN
[2018-07-01] MEDS ORDERED: DEXTROSE 50% 50 ML SYRINGE IV PRN ×2 (00:30)
[2018-07-01] MEDS ORDERED: GLUCOSE GEL 15 GRAM TUBE PO PRN ×2 (00:30)
[2018-07-01] MEDS ORDERED: GLUCAGON 1 MG INJ IM PRN (00:30)
[2018-07-01] MEDS ORDERED: GLUCOSE GEL 15 GRAM TUBE BUCCAL PRN (00:30)
[2018-07-01] MEDS: VALPROIC ACID LIQUID CUP 250 MG/5 ML CUP GTB SCH ×3 (03:32→16:07)
[2018-07-01] MEDS ORDERED: ASPIRIN (EC) 81 MG TAB PO SCH (09:00)
[2018-07-01] MEDS: NS + KCL 20 MEQ 1,000 ML IV SCH ×2 (09:04→09:45)
[2018-07-01] MEDS: NORepinephrine 8MG/250 ML (PMX 250 ML IV SCH (09:04)
[2018-07-01] MEDS: INSULIN ASPART [NOVOLOG] 3 ML PEN SC SCH ×3 (09:30→17:57)
[2018-07-01] MEDS: NPH, HUMAN INSULIN ISOPHANE 3ML VIAL SC SCH ×3 (11:06→17:59)
[2018-07-01] MEDS: VECURONIUM 10 MG VIAL IV SCH (11:12)
[2018-07-01] MEDS: PANTOPRAZOLE 40 MG INJ IV SCH (12:36)
[2018-07-01] MEDS: ASPIRIN 81 MG TAB PEG SCH (12:37)
[2018-07-01] MEDS: ENOXAPARIN 30 MG/0.3 ML SYG SC SCH (12:40)
--- NOTE | 2018-07-01 13:04 | CONS ---
Date/Time of Note Date/Time of Note DATE: 07/01/18 TIME: 12:59 Assessment/Plan Assessment/Plan Hospital Course IMPRESSION: 1. Hypotension/shock state and likely septic.- now off levophed 2. Cardiomyopathy with decreased left ventricular ejection fraction, last known to be 30% by echo in 01/2018.-neg trop x 3 3. History of prior percutaneous transluminal coronary angioplasty and stent placements, most recently to LAD in 2014. 4. Urinary tract infection, likely urosepsis. 5. Diabetes mellitus. 6. Chronic respiratory failure, status post tracheostomy. 7. Dysphagia, status post G-tube. 8. Chronic encephalopathy. 9. Leukocytosis. 10. History of hemorrhagic cerebrovascular accident. Recc: -ICU -Follow BP and resume BB/ACEI -Follow volume status clsoely -F/U urine cx sens/speciation -? blood cultures drawn -? continuation of abx therapy Result Diagram: 07/01/18 0018 07/01/18 0018 Results 24hrs Laboratory Tests Test 06/30/18 14:17 06/30/18 14:20 06/30/18 14:25 06/30/18 14:47 Bedside Glucose 245 H White Blood Count 20.7 #H Red Blood Count 4.15 L Hemoglobin 10.5 #L Hematocrit 33.3 #L Mean Corpuscular 80.2 L Volume Mean Corpuscular 25.3 L Hemoglobin Mean Corpuscular 31.5 L Hemoglobin Concen t Red Cell 14.4 Distribution Width Platelet Count 474 #H Mean Platelet 9.9 Volume Immature 0.500 H Granulocytes % Neutrophils % 85.8 H Lymphocytes % 6.9 L Monocytes % 6.0 Eosinophils % 0.4 Basophils % 0.4 Nucleated Red 0.0 Blood Cells % Immature 0.110 H Granulocytes # Neutrophils # 17.7 H Lymphocytes # 1.4 Monocytes # 1.3 H Eosinophils # 0.1 Basophils # 0.1 Nucleated Red 0.0 Blood Cells # Prothrombin Time 14.1 Prothrombin Time 1.1 Ratio INR International 1.08 Normalized Ratio Activated 31.4 Partial Thrombopl ast Time Sodium Level 131 L Potassium Level 4.3 Chloride Level 89 L Carbon Dioxide 32 H Level Anion Gap 10 Blood Urea 22 H Nitrogen Creatinine 1.06 Est Glomerular > 60 Filtrat Rate mL/min Glucose Level 218 Calcium Level 9.7 Total Bilirubin 0.0 L Direct Bilirubin 0.00 Indirect 0.0 Bilirubin Aspartate Amino 36 Transf (AST/SGOT) Alanine 7 L Aminotransferase (ALT/SGPT) Alkaline 220 H Phosphatase Troponin I < 0.012 Total Protein 9.5 H Albumin 3.7 Globulin 5.80 H Albumin/Globulin 0.63 Ratio Thyroid 3.390 Stimulating Hormone (TSH) POC Venous 2.6 *H Lactate Urine Color SONJA Urine Clarity CLOUDY A Urine pH 5.0 Urine Specific 1.018 Varney Urine Ketones NEGATIVE Urine Nitrite NEGATIVE Urine Bilirubin NEGATIVE Urine 1+ H Urobilinogen Urine Leukocyte 3+ H Esterase Urine Microscopic 9 H RBC Urine Microscopic > 182 H WBC Urine Bacteria MANY A Urine Mucus FEW A Urine Hemoglobin 1+ H Urine Glucose 1+ H Urine Total 2+ H Protein Test 06/30/18 15:30 06/30/18 16:41 06/30/18 18:09 06/30/18 20:29 Blood Gas Blood arterial Specimen Source Arterial Blood 06/30/2018 3:40:24 Date Drawn PM Arterial Blood pH 7.436 (Temp corrected) Arterial Blood 44.1 pCO2 (Temp correct) Arterial Blood 215.1 H pO2 (Temp corrected) Arterial Blood 29.0 H HCO3 Arterial Blood 4.3 H Base Excess Arterial Blood 99.3 H Oxygen Saturation Rl Test ACCEPTAB Arterial Blood Left Radial Gas Puncture Site Arterial 0.3 Blood Carboxyhemo globin Arterial Blood 0.4 Methemoglobin Blood Gas A-a O2 164.2 H Differential Oxyhemoglobin 98.6 Percent Blood Gas 37.0 Temperature Blood Gas 16.0 Respiration Rate Blood Gas Actual 19 Respiration Rate Blood Gas VENT - AC Modality FiO2 60.0 Blood Gas Tidal 500.0 Volume Blood Gas Low 5.0 PEEP Setting Blood Gas M.D. Notified Whom Blood Gas 06/30/2018 3:52:56 Notified Time PM POC Venous 2.4 *H 2.4 *H Lactate Lactic Acid Level 1.5 Creatine Kinase 58 Creatine Kinase 1.8 Index Creatinine Kinase 1.07 MB (Mass) Troponin I 0.054 Test 07/01/18 00:18 07/01/18 03:36 07/01/18 06:46 07/01/18 08:19 White Blood Count 17.8 H Red Blood Count 3.50 L Hemoglobin 8.8 L Hematocrit 27.9 L Mean Corpuscular 79.7 L Volume Mean Corpuscular 25.1 L Hemoglobin Mean Corpuscular 31.5 L Hemoglobin Concen t Red Cell 14.6 H Distribution Width Platelet Count 363 # Mean Platelet 9.8 Volume Immature 0.400 Granulocytes % Neutrophils % 82.3 H Lymphocytes % 8.5 L Monocytes % 8.3 Eosinophils % 0.2 Basophils % 0.3 Nucleated Red 0.0 Blood Cells % Immature 0.070 H Granulocytes # Neutrophils # 14.7 H Lymphocytes # 1.5 Monocytes # 1.5 H Eosinophils # 0.0 Basophils # 0.1 Nucleated Red 0.0 Blood Cells # Sodium Level 138 Potassium Level 4.3 Chloride Level 98 Carbon Dioxide 29 Level Anion Gap 11 Blood Urea 20 Nitrogen Creatinine 0.80 Est Glomerular > 60 Filtrat Rate mL/min Glucose Level 165 Hemoglobin A1c 8.5 H Calcium Level 8.8 Phosphorus Level 4.4 Magnesium Level 1.8 Creatine Kinase 57 45 Creatine Kinase 2.1 2.3 Index Creatinine Kinase 1.18 1.02 MB (Mass) Troponin I 0.067 0.069 Bedside Glucose 169 188 Test 07/01/18 12:21 Bedside Glucose 178 Consultation Date/Type/Reason Admit Date/Time Jun 30, 2018 at 16:55 Initial Consult Date 06/30/18 Type of Consult cardiology Reason for Consultation hypotension Requesting Provider: NIA DOMINGO MD Exam/Review of Systems Vital Signs Vitals Vital Signs Date Temp Pulse Resp B/P (MAP) Pulse Ox O2 O2 Flow FiO2 Time Delivery Rate 07/01/18 85 12:00 07/01/18 16 143/93 95 Mechanical 11:00 (110) Ventilator 07/01/18 99.0 09:40 07/01/18 40 09:00 Exam Review of Systems: CONSTITUTIONAL: No fevers, chills. PULMONARY: trached CARDIOVASCULAR: No chest pain/palpitations GASTROINTESTINAL: No nausea/vomiting. GENITOURINARY: No hematuria/dysuria. MUSCULOSKELETAL: No myagias/arthalgias. PSYCHIATRIC: The patient denies depression. NEUROLOGIC: encephalopathic Constitutional: other (encephalopathic) Psych: no complaints Head: normocephalic Eyes: nl conjunctiva ENMT: mucosa pink and moist Neck: other (trached) Respiratory: diminished breath sounds (at bases/B) Cardiovascular: regular rate and rhythm Gastrointestinal: soft, non-tender Musculoskeletal: muscle tone (normal) Extremities: edema (trace/B) Neurological: other (encephalopathic) Medications Medications Current Medications Norepinephrine 250 ml @ 1.875 mls/ hr TITRATE IV Last administered on 07/01/18at 09:04; Admin Dose 18.75 MLS/HR; Start 06/30/18 at 17:00 Vecuronium Michael (Norcuron) 10 mg ONCE IV Last administered on 06/30/18at 18:30; Admin Dose 10 MG; Start 06/30/18 at 18:30 Potassium Chloride/Sodium Chloride 1,000 ml @ 100 mls/hr Q10H IV Last administered on 07/01/18at 09:04; Admin Dose 100 MLS/HR; Start 06/30/18 at 23:45 IV Flush (NS 3 ml) 3 ml PER PROTOCOL IV ; Start 07/01/18 at 00:00 Ondansetron HCl (Zofran Inj) 4 mg Q6H PRN IV NAUSEA AND/OR VOMITING; Start 07/01/18 at 00:00 Albuterol (Proventil 0.083% (Neb)) 2.5 mg Q2H RESP THERAPY PRN NEB SHORTNESS OF BREATH; Start 07/01/18 at 00:00 Ipratropium Michael (Atrovent 0.02% (Neb)) 0.5 mg Q2H RESP THERAPY PRN NEB SHORTNESS OF BREATH; Start 07/01/18 at 00:00 Acetaminophen (Tylenol Liquid) 650 mg Q6H PRN PO PAIN LEVEL 1-3 OR FEVER; Start 07/01/18 at 00:00 Morphine Sulfate (morphine) 2 mg Q4H PRN IV PAIN LEVEL 7-10; Start 07/01/18 at 00:00 Lorazepam (Ativan) 1 mg Q2H PRN IV ANXIETY; Start 07/01/18 at 00:00 Docusate Sodium (Colace) 100 mg Q12H PRN PO CONSTIPATION; Start 07/01/18 at 00:00 Magnesium Hydroxide (Milk Of Mag) 30 ml DAILY PRN PO CONSTIPATION; Start 07/01/18 at 00:00 Pantoprazole (Protonix Iv) 40 mg DAILY@06 IV Last administered on 07/01/18at 12:36; Admin Dose 40 MG; Start 07/01/18 at 06:00 Enoxaparin Sodium (Lovenox) 30 mg DAILY SC Last administered on 07/01/18at 12:40; Admin Dose 30 MG; Start 07/01/18 at 09:00 Atorvastatin Calcium (Lipitor) 80 mg QHS GTB ; Start 07/01/18 at 21:00 Bisacodyl (Dulcolax Supp) 10 mg Q24H PRN [place] NEEDED; Start 07/01/18 at 00:00 Carvedilol (Coreg) 3.125 mg BID GTB ; Start 07/01/18 at 09:00 Insulin Human NPH (Humulin N) 28 unit Q8H SC ; Start 07/01/18 at 00:00 Valproate Sodium (Depakene Liquid Cup) 500 mg Q8H GTB Last administered on 07/01/18at 12:36; Admin Dose 500 MG; Start 07/01/18 at 00:00 Insulin Aspart (Novolog Insulin Pen) NOVOLOG *MILD* ALGORITHM Q6 SC Last administered on 07/01/18at 12:40; Admin Dose 1 UNIT; Start 07/01/18 at 00:00 Miscellaneous Information 1 ea NOTE XX ; Start 07/01/18 at 00:30 Glucose (Glutose) 15 gm Q15M PRN PO DECREASED GLUCOSE; Start 07/01/18 at 00:30 Glucose (Glutose) 22.5 gm Q15M PRN PO DECREASED GLUCOSE; Start 07/01/18 at 00:30 Dextrose (D50w Syringe) 25 ml Q15M PRN IV DECREASED GLUCOSE; Start 07/01/18 at 00:30 Dextrose (D50w Syringe) 50 ml Q15M PRN IV DECREASED GLUCOSE; Start 07/01/18 at 00:30 Glucagon (Glucagen) 1 mg Q15M PRN IM DECREASED GLUCOSE; Start 07/01/18 at 00:30 Glucose (Glutose) 15 gm Q15M PRN BUCCAL DECREASED GLUCOSE; Start 07/01/18 at 00:30 Aspirin (Aspirin) 162 mg DAILY PEG Last administered on 07/01/18at 12:37; Admin Dose 162 MG; Start 07/01/18 at 12:30 MAE ROSALES Jul 01, 2018 13:04
--- NOTE | 2018-07-01 13:36 | RADRPT ---
Echocardiogram Report Patient Name: CEDRIC KHAN Gender: Male Date: 1965 Study Date: 01-Jul-2018 Instrument Operator: Dominique Avitia RDCS Location: 18 Ref. Physician: MAE VINCENT Quality: Adequate Procedures: Transthoracic echocardiogram with complete 2D, M-Mode, and doppler examination. Indications: Hypotension. 2D/M Mode Doppler Measurement Value Normal Ranges Measurement Value Normal Ranges LVIDd 2D 5.7 3.5 - 5.6 cm AV Peak Ramon 1.4 m/sec LVIDs 2D 4.3 2.1 - 4.1 cm AV Peak PG 8.0 mmHg FS 2D 25.0 % LVOT Peak Ramon 1.3 m/sec LVPWd 2D 1.5 0.6 - 1.1 cm LVOT Peak PG 7.0 mmHg IVSd 2D 1.3 0.6 - 1.1 cm MV E Peak Ramon 0.7 m/sec IVS/LVPW 2D 0.9 MV A Peak Ramon 0.8 m/sec AoR Diam 2D 3.2 2.0 - 3.7 cm MV E/A 0.8 LA/Ao 2D 1 0 - 1 MV Decel Time 275 msec EDV 2D 186.0 cm3 MV E/A 0.8 ESV 2D 78.4 cm3 LA Dimen 2D 4.5 2.3 - 4.0 cm Findings Left Ventricle: Normal left ventricular cavity size. Moderate concentric left ventricular hypertrophy. Moderate global left ventricular systolic dysfunction. Ejection fraction is visually estimated at 40 %. Tissue Doppler/Mitral Doppler indices are consistent with impaired relaxation (Stage I diastolic dysfunction). Right Ventricle: Normal right ventricular size. Normal right ventricular systolic function. Left Atrium: There is mild enlargement of left atrium. Right Atrium: The right atrium is normal in size. Mitral Valve: Mitral valve leaflets appear mildly thickened. Mild mitral annular calcification. Trace mitral regurgitation. Aortic Valve: Normal appearance of the aortic valve. No significant aortic stenosis or insufficiency. Tricuspid Valve: Normal appearance of the tricuspid valve. Unable to obtain RVSP due to minimal presence of tricuspid regurgitation. Pulmonic Valve: Normal pulmonic valve appearance. Pericardium: Normal pericardium with no significant pericardial effusion. Aorta: Normal aortic root. IVC: Dilated IVC without respiratory collapse, however, patient on ventilator. Conclusions Normal left ventricular cavity size. Moderate concentric left ventricular hypertrophy. Moderate global left ventricular systolic dysfunction. Ejection fraction is visually estimated at 40 %. Tissue Doppler/Mitral Doppler indices are consistent with impaired relaxation (Stage I diastolic dysfunction). There is mild enlargement of left atrium. Mitral valve leaflets appear mildly thickened. Mild mitral annular calcification. Trace mitral regurgitation. Normal appearance of the tricuspid valve. Unable to obtain RVSP due to minimal presence of tricuspid regurgitation. Electronically Signed By: Mae Vincent 01-Jul-2018 13:35:57 -0800 Patient Name: CEDRIC KHAN Study Date: 01-Jul-2018 [id number]
--- NOTE | 2018-07-01 14:57 | CONS ---
Date/Time of Note Date/Time of Note DATE: 07/01/18 TIME: 14:56 Assessment/Plan Assessment/Plan Hospital Course No acute changes overnight patient is lying comfortably in bed he is not responsive he is off pressors since this morning WBC today 17.8 H&H 8.8 and 27.9 platelet count 363 neutrophils 82.3 BUN 20 creatinine 0.80 urinalysis revealed positive for leukocyte Estrace, WBC, bacteria Microbiology: Urine culture growing gram-negative rods, blood cultures negative Chest x-ray yesterday revealed right lower lobe pneumonia Indwelling: Trach PEG Nelson Antimicrobials: The patient was given Vanco and Zosyn Physical examination: This is a chronically ill-appearing middle-aged man who is nonresponsive the patient is in no distress head with evidence of right-sided cranial bone removal, sclera nonicteric neck is supple tracheostomy present chest rise symmetrical breath sounds clear, diminished bases. Heart: S1-S2. Abdomen soft, bowel sounds present. Extremities mottled without edema Assessment: 1. Severe sepsis with shock, patient is off pressors since this morning 2. Healthcare associated pneumonia, possibly aspirated 3. Recurrent UTI 4. Chronic respiratory failure 5. History of intracranial hemorrhage status post craniotomy 6. Cardiomyopathy and history of PTCA 7. Diabetes and hypertension Plan: Patient is stable off pressors, continue broad-spectrum coverage, follow final cultures, cardiology and pulmonary recommendations Result Diagram: 07/01/18 0018 07/01/18 0018 Results 24hrs Laboratory Tests Test 06/30/18 15:30 06/30/18 16:41 06/30/18 18:09 06/30/18 20:29 Blood Gas Blood arterial Specimen Source Arterial Blood 06/30/2018 3:40:24 Date Drawn PM Arterial Blood pH 7.436 (Temp corrected) Arterial Blood 44.1 pCO2 (Temp correct) Arterial Blood 215.1 H pO2 (Temp corrected) Arterial Blood 29.0 H HCO3 Arterial Blood 4.3 H Base Excess Arterial Blood 99.3 H Oxygen Saturation Rl Test ACCEPTAB Arterial Blood Left Radial Gas Puncture Site Arterial 0.3 Blood Carboxyhemo globin Arterial Blood 0.4 Methemoglobin Blood Gas A-a O2 164.2 H Differential Oxyhemoglobin 98.6 Percent Blood Gas 37.0 Temperature Blood Gas 16.0 Respiration Rate Blood Gas Actual 19 Respiration Rate Blood Gas VENT - AC Modality FiO2 60.0 Blood Gas Tidal 500.0 Volume Blood Gas Low 5.0 PEEP Setting Blood Gas M.D. Notified Whom Blood Gas 06/30/2018 3:52:56 Notified Time PM POC Venous 2.4 *H 2.4 *H Lactate Lactic Acid Level 1.5 Creatine Kinase 58 Creatine Kinase 1.8 Index Creatinine Kinase 1.07 MB (Mass) Troponin I 0.054 Test 07/01/18 00:18 07/01/18 03:36 07/01/18 06:46 07/01/18 08:19 White Blood Count 17.8 H Red Blood Count 3.50 L Hemoglobin 8.8 L Hematocrit 27.9 L Mean Corpuscular 79.7 L Volume Mean Corpuscular 25.1 L Hemoglobin Mean Corpuscular 31.5 L Hemoglobin Concen t Red Cell 14.6 H Distribution Width Platelet Count 363 # Mean Platelet 9.8 Volume Immature 0.400 Granulocytes % Neutrophils % 82.3 H Lymphocytes % 8.5 L Monocytes % 8.3 Eosinophils % 0.2 Basophils % 0.3 Nucleated Red 0.0 Blood Cells % Immature 0.070 H Granulocytes # Neutrophils # 14.7 H Lymphocytes # 1.5 Monocytes # 1.5 H Eosinophils # 0.0 Basophils # 0.1 Nucleated Red 0.0 Blood Cells # Sodium Level 138 Potassium Level 4.3 Chloride Level 98 Carbon Dioxide 29 Level Anion Gap 11 Blood Urea 20 Nitrogen Creatinine 0.80 Est Glomerular > 60 Filtrat Rate mL/min Glucose Level 165 Hemoglobin A1c 8.5 H Calcium Level 8.8 Phosphorus Level 4.4 Magnesium Level 1.8 Creatine Kinase 57 45 Creatine Kinase 2.1 2.3 Index Creatinine Kinase 1.18 1.02 MB (Mass) Troponin I 0.067 0.069 Bedside Glucose 169 188 Test 07/01/18 12:21 Bedside Glucose 178 Consultation Date/Type/Reason Admit Date/Time Jun 30, 2018 at 16:55 Initial Consult Date Type of Consult id Requesting Provider: NIA DOMINGO MD Exam/Review of Systems Vital Signs Vitals Vital Signs Date Temp Pulse Resp B/P (MAP) Pulse Ox O2 O2 Flow FiO2 Time Delivery Rate 07/01/18 74 16 91/57 (68) 100 13:15 07/01/18 Mechanical 13:00 Ventilator 07/01/18 98.3 12:00 07/01/18 40 09:00 Medications Medications Current Medications Norepinephrine 250 ml @ 1.875 mls/ hr TITRATE IV Last administered on 07/01/18at 09:04; Admin Dose 18.75 MLS/HR; Start 06/30/18 at 17:00 Vecuronium [place] (Norcuron) 10 mg ONCE IV Last administered on 06/30/18at 18:30; Admin Dose 10 MG; Start 06/30/18 at 18:30 Potassium Chloride/Sodium Chloride 1,000 ml @ 100 mls/hr Q10H IV Last administered on 07/01/18at 09:04; Admin Dose 100 MLS/HR; Start 06/30/18 at 23:45 IV Flush (NS 3 ml) 3 ml PER PROTOCOL IV ; Start 07/01/18 at 00:00 Ondansetron HCl (Zofran Inj) 4 mg Q6H PRN IV NAUSEA AND/OR VOMITING; Start 07/01/18 at 00:00 Albuterol (Proventil 0.083% (Neb)) 2.5 mg Q2H RESP THERAPY PRN NEB SHORTNESS OF BREATH; Start 07/01/18 at 00:00 Ipratropium [place] (Atrovent 0.02% (Neb)) 0.5 mg Q2H RESP THERAPY PRN NEB SHORTNESS OF BREATH; Start 07/01/18 at 00:00 Acetaminophen (Tylenol Liquid) 650 mg Q6H PRN PO PAIN LEVEL 1-3 OR FEVER; Start 07/01/18 at 00:00 Morphine Sulfate (morphine) 2 mg Q4H PRN IV PAIN LEVEL 7-10; Start 07/01/18 at 00:00 Lorazepam (Ativan) 1 mg Q2H PRN IV ANXIETY; Start 07/01/18 at 00:00 Docusate Sodium (Colace) 100 mg Q12H PRN PO CONSTIPATION; Start 07/01/18 at 00:00 Magnesium Hydroxide (Milk Of Mag) 30 ml DAILY PRN PO CONSTIPATION; Start 07/01/18 at 00:00 Pantoprazole (Protonix Iv) 40 mg DAILY@06 IV Last administered on 07/01/18at 12:36; Admin Dose 40 MG; Start 07/01/18 at 06:00 Enoxaparin Sodium (Lovenox) 30 mg DAILY SC Last administered on 07/01/18at 12:40; Admin Dose 30 MG; Start 07/01/18 at 09:00 Atorvastatin Calcium (Lipitor) 80 mg QHS GTB ; Start 07/01/18 at 21:00 Bisacodyl (Dulcolax Supp) 10 mg Q24H PRN [place] NEEDED; Start 07/01/18 at 00:00 Carvedilol (Coreg) 3.125 mg BID GTB ; Start 07/01/18 at 09:00 Insulin Human NPH (Humulin N) 28 unit Q8H SC ; Start 07/01/18 at 00:00 Valproate Sodium (Depakene Liquid Cup) 500 mg Q8H GTB Last administered on 07/01/18at 12:36; Admin Dose 500 MG; Start 07/01/18 at 00:00 Insulin Aspart (Novolog Insulin Pen) NOVOLOG *MILD* ALGORITHM Q6 SC Last administered on 07/01/18at 12:40; Admin Dose 1 UNIT; Start 07/01/18 at 00:00 Miscellaneous Information 1 ea NOTE XX ; Start 07/01/18 at 00:30 Glucose (Glutose) 15 gm Q15M PRN PO DECREASED GLUCOSE; Start 07/01/18 at 00:30 Glucose (Glutose) 22.5 gm Q15M PRN PO DECREASED GLUCOSE; Start 07/01/18 at 00:30 Dextrose (D50w Syringe) 25 ml Q15M PRN IV DECREASED GLUCOSE; Start 07/01/18 at 00:30 Dextrose (D50w Syringe) 50 ml Q15M PRN IV DECREASED GLUCOSE; Start 07/01/18 at 00:30 Glucagon (Glucagen) 1 mg Q15M PRN IM DECREASED GLUCOSE; Start 07/01/18 at 00:30 Glucose (Glutose) 15 gm Q15M PRN BUCCAL DECREASED GLUCOSE; Start 07/01/18 at 00:30 Aspirin (Aspirin) 162 mg DAILY PEG Last administered on 07/01/18at 12:37; Admin Dose 162 MG; Start 07/01/18 at 12:30 SANDER AMADOR NP Jul 01, 2018 14:57
[2018-07-01] MEDS ORDERED: VANCOMYCIN IV PER PHARMACY XX SCH (15:00)
[2018-07-01] MEDS: PIPER-TAZO 3.375 GM IV (PMX) 100 ML IVPB SCH ×2 (16:07→21:18)
--- NOTE | 2018-07-01 17:08 | PN ---
Date/Time of Note Date/Time of Note DATE: 07/01/18 TIME: 17:08 Assessment/Plan VTE Prophylaxis Risk score (from Ns)>0 risk: 6 SCD applied (from Ns): Yes Pharmacological prophylaxis: LMWH Lines/Catheters [facility]from [facility] Central Line Central line still needed: Yes Urinary Cath still in place: Yes Reason Cath still needed: urinary retention Assessment/Plan Hospital Course Patient continues on ventilatory support, weaned off of pressors today in the morning, continue G-tube feeding, ICU care. Marginal urine output Via Nelson , IV fluid bolus Assessment/Plan -Sepsis most likely secondary to HCAP and urinary tract infection, f/up on urine and blood cultures. Continue broad-spectrum antibiotics. Dr. Hodge is following in infection disease consultation. -Septic shock, continue IVF, pressors, ICU care. -ARF, continue ventilatory support. Dr Mitchell is following in pulmonology consultation. -Chronic tracheostomy -Dysphagia with PEG -Coronary artery disease status post stent placement to LAD and RCA. Dr. Vincent is following in cardiology consultation. -Cardiomyopathy with ejection fraction of 25-30% -Hypertension -Diabetes -Morbid obesity -Chronic encephalopathy Critical care time spent is 30 minutes. Further recommendations based on clinical course. Plan of care discussed with Dr. Cortez. Result Diagram: 07/01/18 0018 07/01/18 0018 Results 24hrs Laboratory Tests Test 06/30/18 18:09 06/30/18 20:29 07/01/18 00:18 07/01/18 03:36 POC Venous Lactate 2.4 *H Lactic Acid Level 1.5 Creatine Kinase 58 57 Creatine Kinase 1.8 2.1 Index Creatinine Kinase MB 1.07 1.18 (Mass) Troponin I 0.054 0.067 White Blood Count 17.8 H Red Blood Count 3.50 L Hemoglobin 8.8 L Hematocrit 27.9 L Mean Corpuscular 79.7 L Volume Mean Corpuscular 25.1 L Hemoglobin Mean Corpuscular 31.5 L Hemoglobin Concent Red Cell 14.6 H Distribution Width Platelet Count 363 # Mean Platelet Volume 9.8 Immature 0.400 Granulocytes % Neutrophils % 82.3 H Lymphocytes % 8.5 L Monocytes % 8.3 Eosinophils % 0.2 Basophils % 0.3 Nucleated Red Blood 0.0 Cells % Immature 0.070 H Granulocytes # Neutrophils # 14.7 H Lymphocytes # 1.5 Monocytes # 1.5 H Eosinophils # 0.0 Basophils # 0.1 Nucleated Red Blood 0.0 Cells # Sodium Level 138 Potassium Level 4.3 Chloride Level 98 Carbon Dioxide Level 29 Anion Gap 11 Blood Urea Nitrogen 20 Creatinine 0.80 Est Glomerular > 60 Filtrat Rate mL/min Glucose Level 165 Hemoglobin A1c 8.5 H Calcium Level 8.8 Phosphorus Level 4.4 Magnesium Level 1.8 Bedside Glucose 169 Test 07/01/18 06:46 07/01/18 08:19 07/01/18 12:21 Creatine Kinase 45 Creatine Kinase 2.3 Index Creatinine Kinase MB 1.02 (Mass) Troponin I 0.069 Bedside Glucose 188 178 Exam/Review of Systems Vital Signs Vitals Vital Signs Date Temp Pulse Resp B/P (MAP) Pulse Ox O2 O2 Flow FiO2 Time Delivery Rate 07/01/18 81 20 123/54 97 Nasal 16:45 (77) Cannula 07/01/18 98.7 16:30 07/01/18 40 09:00 Exam Constitutional: non-verbal Head: other (Status post right craniectomy) Neck: supple, other (Tracheostomy at the base of the neck, no bleeding) Respiratory: diminished breath sounds Cardiovascular: regular rate and rhythm Gastrointestinal: soft, non-tender, other (G-tube) Extremities: normal pulses Neurological: other (Nonverbal, did not response to any verbal stimuli, spontaneous movement of the extremities) Skin: nl turgor Medications Medications Current Medications Norepinephrine 250 ml @ 1.875 mls/ hr TITRATE IV Last administered on 07/01/18at 09:04; Admin Dose 18.75 MLS/HR; Start 06/30/18 at 17:00 Potassium Chloride/Sodium Chloride 1,000 ml @ 100 mls/hr Q10H IV Last administered on 07/01/18at 09:04; Admin Dose 100 MLS/HR; Start 06/30/18 at 23:45 IV Flush (NS 3 ml) 3 ml PER PROTOCOL IV ; Start 07/01/18 at 00:00 Ondansetron HCl (Zofran Inj) 4 mg Q6H PRN IV NAUSEA AND/OR VOMITING; Start 07/01/18 at 00:00 Albuterol (Proventil 0.083% (Neb)) 2.5 mg Q2H RESP THERAPY PRN NEB SHORTNESS OF BREATH; Start 07/01/18 at 00:00 Ipratropium [place] (Atrovent 0.02% (Neb)) 0.5 mg Q2H RESP THERAPY PRN NEB SHORTNESS OF BREATH; Start 07/01/18 at 00:00 Acetaminophen (Tylenol Liquid) 650 mg Q6H PRN PO PAIN LEVEL 1-3 OR FEVER; Start 07/01/18 at 00:00 Morphine Sulfate (morphine) 2 mg Q4H PRN IV PAIN LEVEL 7-10; Start 07/01/18 at 00:00 Lorazepam (Ativan) 1 mg Q2H PRN IV ANXIETY; Start 07/01/18 at 00:00 Docusate Sodium (Colace) 100 mg Q12H PRN PO CONSTIPATION; Start 07/01/18 at 00:00 Magnesium Hydroxide (Milk Of Mag) 30 ml DAILY PRN PO CONSTIPATION; Start 07/01/18 at 00:00 Pantoprazole (Protonix Iv) 40 mg DAILY@06 IV Last administered on 07/01/18at 12:36; Admin Dose 40 MG; Start 07/01/18 at 06:00 Enoxaparin Sodium (Lovenox) 30 mg DAILY SC Last administered on 07/01/18at 12:40; Admin Dose 30 MG; Start 07/01/18 at 09:00 Atorvastatin Calcium (Lipitor) 80 mg QHS GTB ; Start 07/01/18 at 21:00 Bisacodyl (Dulcolax Supp) 10 mg Q24H PRN [place] NEEDED; Start 07/01/18 at 00:00 Carvedilol (Coreg) 3.125 mg BID GTB ; Start 07/01/18 at 09:00 Insulin Human NPH (Humulin N) 28 unit Q8H SC ; Start 07/01/18 at 00:00 Valproate Sodium (Depakene Liquid Cup) 500 mg Q8H GTB Last administered on 07/01/18at 16:07; Admin Dose 500 MG; Start 07/01/18 at 00:00 Insulin Aspart (Novolog Insulin Pen) NOVOLOG *MILD* ALGORITHM Q6 SC Last administered on 07/01/18at 12:40; Admin Dose 1 UNIT; Start 07/01/18 at 00:00 Miscellaneous Information 1 ea NOTE XX ; Start 07/01/18 at 00:30 Glucose (Glutose) 15 gm Q15M PRN PO DECREASED GLUCOSE; Start 07/01/18 at 00:30 Glucose (Glutose) 22.5 gm Q15M PRN PO DECREASED GLUCOSE; Start 07/01/18 at 00:30 Dextrose (D50w Syringe) 25 ml Q15M PRN IV DECREASED GLUCOSE; Start 07/01/18 at 00:30 Dextrose (D50w Syringe) 50 ml Q15M PRN IV DECREASED GLUCOSE; Start 07/01/18 at 00:30 Glucagon (Glucagen) 1 mg Q15M PRN IM DECREASED GLUCOSE; Start 07/01/18 at 00:30 Glucose (Glutose) 15 gm Q15M PRN BUCCAL DECREASED GLUCOSE; Start 07/01/18 at 00:30 Aspirin (Aspirin) 162 mg DAILY PEG Last administered on 07/01/18at 12:37; Admin Dose 162 MG; Start 07/01/18 at 12:30 Vancomycin HCl (Vanco Iv Per Pharmacy) VANCOMYCIN PER PHARMACY PER PROTOCOL XX ; Start 07/01/18 at 15:00 Piperacillin Sod/ Tazobactam Sod 100 ml @ 200 mls/hr Q8 IVPB Last administered on 07/01/18at 16:07; Admin Dose 200 MLS/HR; Start 07/01/18 at 15:40 Vancomycin HCl 1.25 gm/Sodium Chloride 250 ml @ 83.333 mls/ hr Q12H IVPB ; Start 07/01/18 at 17:00 SETH AVENDANO Jul 01, 2018 17:08
[2018-07-01] MEDS: VANCOMYCIN HCL 1.25 GM in SOD CHLORIDE 0.9% 250 ML IVPB SCH (17:55)
[2018-07-01] MEDS: ATORVASTATIN 80 MG TAB GTB SCH (21:18)
[2018-07-02] VITALS (73 sets, daily range): BP systolic 75–127; BP diastolic 52–72; PULSE 54–81; RESP 10–28
[2018-07-02] MEDS ORDERED: SOD CHLORIDE 0.9% 500 ML IV ONE
[2018-07-02] MEDS: VALPROIC ACID LIQUID CUP 250 MG/5 ML CUP GTB SCH ×3 (00:17→17:44)
[2018-07-02] MEDS: NS + KCL 20 MEQ 1,000 ML IV SCH ×4 (00:41→23:14)
[2018-07-02] MEDS: NPH, HUMAN INSULIN ISOPHANE 3ML VIAL SC SCH ×3 (00:44→17:54)
[2018-07-02] MEDS: VANCOMYCIN HCL 1.25 GM in SOD CHLORIDE 0.9% 250 ML IVPB SCH ×2 (05:50→17:49)
[2018-07-02] MEDS: PIPER-TAZO 3.375 GM IV (PMX) 100 ML IVPB SCH ×3 (05:51→21:57)
[2018-07-02] MEDS: PANTOPRAZOLE 40 MG INJ IV SCH (05:51)
[2018-07-02] MEDS: INSULIN ASPART [NOVOLOG] 3 ML PEN SC SCH ×4 (05:51→17:58)
[2018-07-02] MEDS: NORepinephrine 8MG/250 ML (PMX 250 ML IV SCH (06:12)
[2018-07-02] MEDS: ASPIRIN 81 MG TAB PEG SCH (09:34)
--- NOTE | 2018-07-02 11:38 | CONS ---
DATE OF ADMISSION: 06/30/2018 DATE OF CONSULTATION: REASON FOR CONSULTATION: Ventilator management. Thank you, Dr. Cortez, for this consultation. HISTORY OF PRESENT ILLNESS: This is an unfortunate 52-year-old gentleman with a history of chronic e ncephalopathy status post craniectomy, chronic mechanical ventilation with G-tube, prolonged stay at [facility], from there, transferred to custodial facility for 1 day and then subseque ntly readmitted to [facility] for low blood pressure, fever and severe sepsis. The patient is nonverbal on mechanical ventilation. PAST MEDICAL HISTORY: Craniectomy, chronic encephalopathy, vent-dependent respiratory failure, dysph agia with G-tube, previous hemorrhagic stroke, recurrent sepsis. MEDICATIONS: Per chart. ALLERGIES: NONE. SOCIAL HISTORY: Nonsmoker, no alcohol, no history of drug use. FAMILY HISTORY: Noncontributory. SYSTEMS REVIEW: A 12-point review of systems unable to perform. PHYSICAL EXAMINATION: GENERAL: A chronically ill-appearing gentleman on mechanical ventilation via tracheostomy. Obvious craniectomy scar. . NECK: Supple. No JVD or lymphadenopathy. CARDIAC: S1, S2, no added sounds or murmurs. CHEST: Diminished air entry bilaterally with rales. ABDOMEN: Mildly distended, soft. EXTREMITIES: No cyanosis, clubbing, 1+ edema. NEUROLOGIC: Generalized weakness. LABORATORY DATA: White count initially 20.7, now 7.2, hemoglobin initially 10.5, now 7.0, platelets of 272. BUN 22, creatinine 0.78. INR was 1.08. DIAGNOSTIC DATA: Chest x-ray demonstrates right lower lobe infiltrate. IMPRESSION AND PLAN: 1. Likely healthcare-associated pneumonia. 2. Severe sepsis, status post septic shock. 3. History of hemorrhagic cerebrovascular accident. 4. Status post craniectomy. 5. Acute on chronic hypoxemic respiratory failure. The patient will require: 1. Continue mechanical ventilation. 2. Decrease vasopressor as tolerated. 3. [place] culture. 4. Vasopressors as needed. 5. DVT and GI prophylaxis. 6. Continue tube feeding. 7. Transfusion of 1 unit packed red blood cells, given low hemoglobin. 8. PICC line placement. Dictated By: LULU COKER/ROXANA Conf#: [id number] DID#: [id number] CC: NIA CORTEZ MD;*End*
--- NOTE | 2018-07-02 13:41 | PN ---
Date/Time of Note Date/Time of Note DATE: 07/02/18 TIME: 13:41 Assessment/Plan VTE Prophylaxis Risk score (from [facility])>0 risk: 9 SCD applied (from [facility]): Yes SCD contraindicated: other Pharmacological prophylaxis: other Pharm contraindication: other Lines/Catheters IV Catheter Type (from [facility]): Central Line Central line still needed: Yes Urinary Cath still in place: Yes Reason Cath still needed: urinary retention Assessment/Plan Result Diagram: 07/02/18 0415 07/02/18 0415 Results 24hrs Laboratory Tests Test 07/01/18 17:54 07/01/18 21:59 07/02/18 00:23 07/02/18 04:15 Bedside Glucose 145 173 Sodium Level 138 139 Potassium Level 4.0 4.0 Chloride Level 100 104 Carbon Dioxide Level 31 30 Anion Gap 7 5 Blood Urea Nitrogen 21 H 22 H Creatinine 0.75 0.78 Est Glomerular > 60 > 60 Filtrat Rate mL/min Glucose Level 164 164 Calcium Level 8.6 8.5 Magnesium Level 1.9 White Blood Count 7.2 # Red Blood Count 2.74 #L Hemoglobin 7.0 #L Hematocrit 22.5 L Mean Corpuscular 82.1 Volume Mean Corpuscular 25.5 L Hemoglobin Mean Corpuscular 31.1 L Hemoglobin Concent Red Cell 15.1 H Distribution Width Platelet Count 272 # Mean Platelet Volume 10.0 Immature 0.400 Granulocytes % Neutrophils % 68.4 Lymphocytes % 16.2 Monocytes % 11.1 H Eosinophils % 3.3 Basophils % 0.6 Nucleated Red Blood 0.0 Cells % Immature 0.030 Granulocytes # Neutrophils # 5.0 Lymphocytes # 1.2 Monocytes # 0.8 Eosinophils # 0.2 Basophils # 0.0 Nucleated Red Blood 0.0 Cells # Test 07/02/18 05:49 07/02/18 13:05 Bedside Glucose 166 178 Exam/Review of Systems Vital Signs Vitals Vital Signs Date Temp Pulse Resp B/P (MAP) Pulse Ox O2 O2 Flow FiO2 Time Delivery Rate 07/02/18 67 16 94/56 (69) 100 Mechanical 11:00 Ventilator 07/02/18 98.3 08:00 07/02/18 40 08:00 Intake and Output 07/01/18 07/01/18 07/02/18 1515:00 23:00 07:00 IntakeIntake Total 1698.85 ml 1630.006 ml 1720 ml OutputOutput Total 1535 ml 275 ml 315 ml BalanceBalance 163.85 ml 1355.006 ml 1405 ml Medications Medications Current Medications Norepinephrine 250 ml @ 1.875 mls/ hr TITRATE IV Last administered on 07/02/18at 06:12; Admin Dose 1.875 MLS/HR; Start 06/30/18 at 17:00 Potassium Chloride/Sodium Chloride 1,000 ml @ 100 mls/hr Q10H IV Last administered on 07/02/18at 12:57; Admin Dose 100 MLS/HR; Start 06/30/18 at 23:45 IV Flush (NS 3 ml) 3 ml PER PROTOCOL IV ; Start 07/01/18 at 00:00 Ondansetron HCl (Zofran Inj) 4 mg Q6H PRN IV NAUSEA AND/OR VOMITING; Start 07/01/18 at 00:00 Albuterol (Proventil 0.083% (Neb)) 2.5 mg Q2H RESP THERAPY PRN NEB SHORTNESS OF BREATH; Start 07/01/18 at 00:00 Ipratropium [place] (Atrovent 0.02% (Neb)) 0.5 mg Q2H RESP THERAPY PRN NEB SHORTNESS OF BREATH; Start 07/01/18 at 00:00 Acetaminophen (Tylenol Liquid) 650 mg Q6H PRN PO PAIN LEVEL 1-3 OR FEVER; Start 07/01/18 at 00:00 Morphine Sulfate (morphine) 2 mg Q4H PRN IV PAIN LEVEL 7-10; Start 07/01/18 at 00:00 Lorazepam (Ativan) 1 mg Q2H PRN IV ANXIETY; Start 07/01/18 at 00:00 Docusate Sodium (Colace) 100 mg Q12H PRN PO CONSTIPATION; Start 07/01/18 at 00:00 Magnesium Hydroxide (Milk Of Mag) 30 ml DAILY PRN PO CONSTIPATION; Start 07/01/18 at 00:00 Pantoprazole (Protonix Iv) 40 mg DAILY@06 IV Last administered on 07/02/18at 05:51; Admin Dose 40 MG; Start 07/01/18 at 06:00 Enoxaparin Sodium (Lovenox) 30 mg DAILY SC Last administered on 07/01/18at 12:40; Admin Dose 30 MG; Start 07/01/18 at 09:00 Atorvastatin Calcium (Lipitor) 80 mg QHS GTB Last administered on 07/01/18at 21:18; Admin Dose 80 MG; Start 07/01/18 at 21:00 Bisacodyl (Dulcolax Supp) 10 mg Q24H PRN [place] NEEDED; Start 07/01/18 at 00:00 Carvedilol (Coreg) 3.125 mg BID GTB Last administered on 07/01/18at 21:18; Admin Dose 3.125 MG; Start 07/01/18 at 09:00 Insulin Human NPH (Humulin N) 28 unit Q8H SC Last administered on 07/02/18at 09:38; Admin Dose 28 UNIT; Start 07/01/18 at 00:00 Valproate Sodium (Depakene Liquid Cup) 500 mg Q8H GTB Last administered on 07/02/18at 09:34; Admin Dose 500 MG; Start 07/01/18 at 00:00 Insulin Aspart (Novolog Insulin Pen) NOVOLOG *MILD* ALGORITHM Q6 SC Last administered on 07/02/18at 13:08; Admin Dose 1 UNIT; Start 07/01/18 at 00:00 Miscellaneous Information 1 ea NOTE XX ; Start 07/01/18 at 00:30 Glucose (Glutose) 15 gm Q15M PRN PO DECREASED GLUCOSE; Start 07/01/18 at 00:30 Glucose (Glutose) 22.5 gm Q15M PRN PO DECREASED GLUCOSE; Start 07/01/18 at 00:30 Dextrose (D50w Syringe) 25 ml Q15M PRN IV DECREASED GLUCOSE; Start 07/01/18 at 00:30 Dextrose (D50w Syringe) 50 ml Q15M PRN IV DECREASED GLUCOSE; Start 07/01/18 at 00:30 Glucagon (Glucagen) 1 mg Q15M PRN IM DECREASED GLUCOSE; Start 07/01/18 at 00:30 Glucose (Glutose) 15 gm Q15M PRN BUCCAL DECREASED GLUCOSE; Start 07/01/18 at 00:30 Aspirin (Aspirin) 162 mg DAILY PEG Last administered on 07/02/18at 09:34; Admin Dose 162 MG; Start 07/01/18 at 12:30 Vancomycin HCl (Vanco Iv Per Pharmacy) VANCOMYCIN PER PHARMACY PER PROTOCOL XX ; Start 07/01/18 at 15:00 Piperacillin Sod/ Tazobactam Sod 100 ml @ 200 mls/hr Q8 IVPB Last administered on 07/02/18at 05:51; Admin Dose 200 MLS/HR; Start 07/01/18 at 15:40 Vancomycin HCl 1.25 gm/Sodium Chloride 250 ml @ 83.333 mls/ hr Q12H IVPB Last administered on 07/02/18at 05:50; Admin Dose 83.333 MLS/HR; Start 07/01/18 at 17:00 REGINA BUI Jul 02, 2018 13:41
--- NOTE | 2018-07-02 14:42 | CONS ---
Date/Time of Note Date/Time of Note DATE: 07/02/18 TIME: 14:41 Assessment/Plan Assessment/Plan Hospital Course Patient is off pressors looks comfortable, status post PICC line in a.m. WBC 98.3 pulse 67 respiration 16 blood pressure 94/56 saturation 100 on vent WBC 7.2 H&H 7 and 22.5 platelets 272 no shift BUN 22 creatinine 0.78 Microbiology: Urine culture grew Enterobacter erogenous, blood cultures negative Indwelling's: Trach PEG Nelson left upper extremity PICC line Antimicrobials: Vancomycin, Zosyn Physical examination: This is a chronically ill-appearing middle-aged man who is nonresponsive the patient is in no distress head with evidence of right-sided cranial bone removal, sclera nonicteric neck is supple tracheostomy present chest rise symmetrical breath sounds clear, diminished bases. Heart: S1-S2. Abdomen soft, bowel sounds present. Extremities mottled without edema Assessment: 1. Severe sepsis with shock 2. Healthcare associated pneumonia, possibly aspirated 3. Recurrent UTI 4. Chronic respiratory failure 5. History of intracranial hemorrhage status post craniotomy 6. Cardiomyopathy and history of PTCA 7. Diabetes and hypertension Plan: Patient is stable, WBC trending down, continue antibiotics, follow cardiology and pulmonary recommendations Result Diagram: 07/02/18 0415 07/02/18 0415 Results 24hrs Laboratory Tests Test 07/01/18 17:54 07/01/18 21:59 07/02/18 00:23 07/02/18 04:15 Bedside Glucose 145 173 Sodium Level 138 139 Potassium Level 4.0 4.0 Chloride Level 100 104 Carbon Dioxide Level 31 30 Anion Gap 7 5 Blood Urea Nitrogen 21 H 22 H Creatinine 0.75 0.78 Est Glomerular > 60 > 60 Filtrat Rate mL/min Glucose Level 164 164 Calcium Level 8.6 8.5 Magnesium Level 1.9 White Blood Count 7.2 # Red Blood Count 2.74 #L Hemoglobin 7.0 #L Hematocrit 22.5 L Mean Corpuscular 82.1 Volume Mean Corpuscular 25.5 L Hemoglobin Mean Corpuscular 31.1 L Hemoglobin Concent Red Cell 15.1 H Distribution Width Platelet Count 272 # Mean Platelet Volume 10.0 Immature 0.400 Granulocytes % Neutrophils % 68.4 Lymphocytes % 16.2 Monocytes % 11.1 H Eosinophils % 3.3 Basophils % 0.6 Nucleated Red Blood 0.0 Cells % Immature 0.030 Granulocytes # Neutrophils # 5.0 Lymphocytes # 1.2 Monocytes # 0.8 Eosinophils # 0.2 Basophils # 0.0 Nucleated Red Blood 0.0 Cells # Test 07/02/18 05:49 07/02/18 13:05 Bedside Glucose 166 178 Consultation Date/Type/Reason Admit Date/Time Jun 30, 2018 at 16:55 Initial Consult Date Type of Consult id Requesting Provider: NIA DOMINGO MD Exam/Review of Systems Vital Signs Vitals Vital Signs Date Temp Pulse Resp B/P (MAP) Pulse Ox O2 O2 Flow FiO2 Time Delivery Rate 07/02/18 69 12:00 07/02/18 16 94/56 (69) 100 Mechanical 11:00 Ventilator 07/02/18 98.3 08:00 07/02/18 40 08:00 Intake and Output 07/01/18 07/01/18 07/02/18 1515:00 23:00 07:00 IntakeIntake Total 1698.85 ml 1630.006 ml 1720 ml OutputOutput Total 1535 ml 275 ml 315 ml BalanceBalance 163.85 ml 1355.006 ml 1405 ml Medications Medications Current Medications Norepinephrine 250 ml @ 1.875 mls/ hr TITRATE IV Last administered on 07/02/18at 06:12; Admin Dose 1.875 MLS/HR; Start 06/30/18 at 17:00 Potassium Chloride/Sodium Chloride 1,000 ml @ 100 mls/hr Q10H IV Last administered on 07/02/18at 12:57; Admin Dose 100 MLS/HR; Start 06/30/18 at 23:45 IV Flush (NS 3 ml) 3 ml PER PROTOCOL IV ; Start 07/01/18 at 00:00 Ondansetron HCl (Zofran Inj) 4 mg Q6H PRN IV NAUSEA AND/OR VOMITING; Start 07/01/18 at 00:00 Albuterol (Proventil 0.083% (Neb)) 2.5 mg Q2H RESP THERAPY PRN NEB SHORTNESS OF BREATH; Start 07/01/18 at 00:00 Ipratropium [place] (Atrovent 0.02% (Neb)) 0.5 mg Q2H RESP THERAPY PRN NEB SHORTNESS OF BREATH; Start 07/01/18 at 00:00 Acetaminophen (Tylenol Liquid) 650 mg Q6H PRN PO PAIN LEVEL 1-3 OR FEVER; Start 07/01/18 at 00:00 Morphine Sulfate (morphine) 2 mg Q4H PRN IV PAIN LEVEL 7-10; Start 07/01/18 at 00:00 Lorazepam (Ativan) 1 mg Q2H PRN IV ANXIETY; Start 07/01/18 at 00:00 Docusate Sodium (Colace) 100 mg Q12H PRN PO CONSTIPATION; Start 07/01/18 at 00:00 Magnesium Hydroxide (Milk Of Mag) 30 ml DAILY PRN PO CONSTIPATION; Start 07/01/18 at 00:00 Pantoprazole (Protonix Iv) 40 mg DAILY@06 IV Last administered on 07/02/18at 05:51; Admin Dose 40 MG; Start 07/01/18 at 06:00 Enoxaparin Sodium (Lovenox) 30 mg DAILY SC Last administered on 07/01/18at 12:40; Admin Dose 30 MG; Start 07/01/18 at 09:00 Atorvastatin Calcium (Lipitor) 80 mg QHS GTB Last administered on 07/01/18at 21:18; Admin Dose 80 MG; Start 07/01/18 at 21:00 Bisacodyl (Dulcolax Supp) 10 mg Q24H PRN [place] NEEDED; Start 07/01/18 at 00:00 Carvedilol (Coreg) 3.125 mg BID GTB Last administered on 07/01/18at 21:18; Admin Dose 3.125 MG; Start 07/01/18 at 09:00 Insulin Human NPH (Humulin N) 28 unit Q8H SC Last administered on 07/02/18at 09:38; Admin Dose 28 UNIT; Start 07/01/18 at 00:00 Valproate Sodium (Depakene Liquid Cup) 500 mg Q8H GTB Last administered on 07/02/18 09:34; Admin Dose 500 MG; Start 07/01/18 at 00:00 Insulin Aspart (Novolog Insulin Pen) NOVOLOG *MILD* ALGORITHM Q6 SC Last admin istered on 07/02/18at 13:08; Admin Dose 1 UNIT; Start 07/01/18 at 00:00 Miscellaneous Information 1 ea NOTE XX ; Start 07/01/18 at 00:30 Glucose (Glutose) 15 gm Q15M PRN PO DECREASED GLUCOSE; Start 07/01/18 at 00:30 Glucose (Glutose) 22.5 gm Q15M PRN PO DECREASED GLUCOSE; Start 07/01/18 at 00:30 Dextrose (D50w Syringe) 25 ml Q15M PRN IV DECREASED GLUCOSE; Start 07/01/18 at 00:30 Dextrose (D50w Syringe) 50 ml Q15M PRN IV DECREASED GLUCOSE; Start 07/01/18 at 00:30 Glucagon (Glucagen) 1 mg Q15M PRN IM DECREASED GLUCOSE; Start 07/01/18 at 00:30 Glucose (Glutose) 15 gm Q15M PRN BUCCAL DECREASED GLUCOSE; Start 07/01/18 at 00:30 Aspirin (Aspirin) 162 mg DAILY PEG Last administered on 07/02/18at 09:34; Admin Dose 162 MG; Start 07/01/18 at 12:30 Vancomycin HCl (Vanco Iv Per Pharmacy) VANCOMYCIN PER PHARMACY PER PROTOCOL XX ; Start 07/01/18 at 15:00 Piperacillin Sod/ Tazobactam Sod 100 ml @ 200 mls/hr Q8 IVPB Last administered on 07/02/18at 14:00; Admin Dose 200 MLS/HR; Start 07/01/18 at 15:40 Vancomycin HCl 1.25 gm/Sodium Chloride 250 ml @ 83.333 mls/ hr Q12H IVPB Last administered on 07/02/18at 05:50; Admin Dose 83.333 MLS/HR; Start 07/01/18 at 17:00 IV Flush (NS 10 ml) 10 ml PRN PRN IV FLUSH LINE; Start 07/02/18 at 14:00 SANDER AMADOR NP Jul 02, 2018 14:42
--- NOTE | 2018-07-02 15:12 | CONS ---
Date/Time of Note Date/Time of Note DATE: 07/02/18 TIME: 15:10 Assessment/Plan Assessment/Plan Assessment/Plan 1. Hypotension/shock state and likely septic.- now off levophed 2. Cardiomyopathy with decreased left ventricular ejection fraction, last known to be 30% by echo in 01/2018.-neg trop x 3 3. History of prior percutaneous transluminal coronary angioplasty and stent placements, most recently to LAD in 2014. 4. Urinary tract infection, likely urosepsis. 5. Diabetes mellitus. 6. Chronic respiratory failure, status post tracheostomy. 7. Dysphagia, status post G-tube. 8. Chronic encephalopathy. 9. Leukocytosis. 10. History of hemorrhagic cerebrovascular accident. Recc: -ICU -Follow BP -Follow volume status clsoely Result Diagram: Result Diagram: 07/02/18 0415 07/02/18 0415 Results 24hrs Laboratory Tests Test 07/01/18 17:54 07/01/18 21:59 07/02/18 00:23 07/02/18 04:15 Bedside Glucose 145 173 Sodium Level 138 139 Potassium Level 4.0 4.0 Chloride Level 100 104 Carbon Dioxide Level 31 30 Anion Gap 7 5 Blood Urea Nitrogen 21 H 22 H Creatinine 0.75 0.78 Est Glomerular > 60 > 60 Filtrat Rate mL/min Glucose Level 164 164 Calcium Level 8.6 8.5 Magnesium Level 1.9 White Blood Count 7.2 # Red Blood Count 2.74 #L Hemoglobin 7.0 #L Hematocrit 22.5 L Mean Corpuscular 82.1 Volume Mean Corpuscular 25.5 L Hemoglobin Mean Corpuscular 31.1 L Hemoglobin Concent Red Cell 15.1 H Distribution Width Platelet Count 272 # Mean Platelet Volume 10.0 Immature 0.400 Granulocytes % Neutrophils % 68.4 Lymphocytes % 16.2 Monocytes % 11.1 H Eosinophils % 3.3 Basophils % 0.6 Nucleated Red Blood 0.0 Cells % Immature 0.030 Granulocytes # Neutrophils # 5.0 Lymphocytes # 1.2 Monocytes # 0.8 Eosinophils # 0.2 Basophils # 0.0 Nucleated Red Blood 0.0 Cells # Test 07/02/18 05:49 07/02/18 13:05 Bedside Glucose 166 178 Consultation Date/Type/Reason Admit Date/Time Jun 30, 2018 at 16:55 Initial Consult Date Requesting Provider: NIA DOMINGO MD 24 HR Interval Summary Free Text/Dictation ROS: Not available as pt is confused Exam/Review of Systems Vital Signs Vitals Vital Signs Date Temp Pulse Resp B/P (MAP) Pulse Ox O2 O2 Flow FiO2 Time Delivery Rate 07/02/18 69 12:00 07/02/18 16 94/56 (69) 100 Mechanical 11:00 Ventilator 07/02/18 98.3 08:00 07/02/18 40 08:00 Intake and Output 07/01/18 07/01/18 07/02/18 1414:59 22:59 06:59 IntakeIntake Total 1598.85 ml 1570.006 ml 1880 ml OutputOutput Total 1535 ml 240 ml 350 ml BalanceBalance 63.85 ml 1330.006 ml 1530 ml Exam General: WN/WD HEENT: Unicetric/atraumatic/ no assymetry NECK: On vent through Tacheostomy,JVD not elevated, no thyromegaly, carotids revealed normal upstrokes Lymph: no lymphadenopathy HEART: regular with no S3, I/ systolic murmur at apex LUNGS: clear ABD: soft, NT, ND, +BS, no organomegaly Neuro: no deficit SKIN: no leisons EXT: no edema Medications Medications Current Medications Norepinephrine 250 ml @ 1.875 mls/ hr TITRATE IV Last administered on 07/02/18at 06:12; Admin Dose 1.875 MLS/HR; Start 06/30/18 at 17:00 Potassium Chloride/Sodium Chloride 1,000 ml @ 100 mls/hr Q10H IV Last administered on 07/02/18at 12:57; Admin Dose 100 MLS/HR; Start 06/30/18 at 23:45 IV Flush (NS 3 ml) 3 ml PER PROTOCOL IV ; Start 07/01/18 at 00:00 Ondansetron HCl (Zofran Inj) 4 mg Q6H PRN IV NAUSEA AND/OR VOMITING; Start 07/01/18 at 00:00 Albuterol (Proventil 0.083% (Neb)) 2.5 mg Q2H RESP THERAPY PRN NEB SHORTNESS OF BREATH; Start 07/01/18 at 00:00 Ipratropium [place] (Atrovent 0.02% (Neb)) 0.5 mg Q2H RESP THERAPY PRN NEB SHORTNESS OF BREATH; Start 07/01/18 at 00:00 Acetaminophen (Tylenol Liquid) 650 mg Q6H PRN PO PAIN LEVEL 1-3 OR FEVER; Start 07/01/18 at 00:00 Morphine Sulfate (morphine) 2 mg Q4H PRN IV PAIN LEVEL 7-10; Start 07/01/18 at 00:00 Lorazepam (Ativan) 1 mg Q2H PRN IV ANXIETY; Start 07/01/18 at 00:00 Docusate Sodium (Colace) 100 mg Q12H PRN PO CONSTIPATION; Start 07/01/18 at 00:00 Magnesium Hydroxide (Milk Of Mag) 30 ml DAILY PRN PO CONSTIPATION; Start 07/01/18 at 00:00 Pantoprazole (Protonix Iv) 40 mg DAILY@06 IV Last administered on 07/02/18at 05:51; Admin Dose 40 MG; Start 07/01/18 at 06:00 Enoxaparin Sodium (Lovenox) 30 mg DAILY SC Last administered on 07/01/18at 12:40; Admin Dose 30 MG; Start 07/01/18 at 09:00 Atorvastatin Calcium (Lipitor) 80 mg QHS GTB Last administered on 07/01/18 21:18; Admin Dose 80 MG; Start 07/01/18 at 21:00 Bisacodyl (Dulcolax Supp) 10 mg Q24H PRN [place] NEEDED; Start 07/01/18 at 00:00 Carvedilol (Coreg) 3.125 mg BID GTB Last administered on 07/01/18at 21:18; Admin Dose 3.125 MG; Start 07/01/18 at 09:00 Insulin Human NPH (Humulin N) 28 unit Q8H SC Last administered on 07/02/18at 09:38; Admin Dose 28 UNIT; Start 07/01/18 at 00:00 Valproate Sodium (Depakene Liquid Cup) 500 mg Q8H GTB Last administered on 07/02/18at 09:34; Admin Dose 500 MG; Start 07/01/18 at 00:00 Insulin Aspart (Novolog Insulin Pen) NOVOLOG *MILD* ALGORITHM Q6 SC Last a dministered on 07/02/18at 13:08; Admin Dose 1 UNIT; Start 07/01/18 at 00:00 Miscellaneous Information 1 ea NOTE XX ; Start 07/01/18 at 00:30 Glucose (Glutose) 15 gm Q15M PRN PO DECREASED GLUCOSE; Start 07/01/18 at 00:30 Glucose (Glutose) 22.5 gm Q15M PRN PO DECREASED GLUCOSE; Start 07/01/18 at 00:3 0 Dextrose (D50w Syringe) 25 ml Q15M PRN IV DECREASED GLUCOSE; Start 07/01/18 at 00:30 Dextrose (D50w Syringe) 50 ml Q15M PRN IV DECREASED GLUCOSE; Start 07/01/18 at 00:30 Glucagon (Glucagen) 1 mg Q15M PRN IM DECREASED GLUCOSE; Start 07/01/18 at 00:30 Glucose (Glutose) 15 gm Q15M PRN BUCCAL DECREASED GLUCOSE; Start 07/01/18 at 00:30 Aspirin (Aspirin) 162 mg DAILY PEG Last administered on 07/02/18at 09:34; Admin Dose 162 MG; Start 07/01/18 at 12:30 Vancomycin HCl (Vanco Iv Per Pharmacy) VANCOMYCIN PER PHARMACY PER PROTOCOL XX ; Start 07/01/18 at 15:00 Piperacillin Sod/ Tazobactam Sod 100 ml @ 200 mls/hr Q8 IVPB Last administered on 07/02/18at 14:00; Admin Dose 200 MLS/HR; Start 07/01/18 at 15:40 Vancomycin HCl 1.25 gm/Sodium Chloride 250 ml @ 83.333 mls/ hr Q12H IVPB Last administered on 07/02/18at 05:50; Admin Dose 83.333 MLS/HR; Start 07/01/18 at 17:00 IV Flush (NS 10 ml) 10 ml PRN PRN IV FLUSH LINE; Start 07/02/18 at 14:00 JASKARAN HOLCOMB MD Jul 02, 2018 15:12
[2018-07-02] MEDS: ENOXAPARIN 30 MG/0.3 ML SYG SC SCH (17:48)
[2018-07-02] MEDS: ATORVASTATIN 80 MG TAB GTB SCH (21:56)
[2018-07-03] VITALS (54 sets, daily range): BP systolic 101–169; BP diastolic 55–87; PULSE 54–72; RESP 15–25
[2018-07-03] MEDS: VALPROIC ACID LIQUID CUP 250 MG/5 ML CUP GTB SCH ×4 (00:12→23:31)
[2018-07-03] MEDS: NPH, HUMAN INSULIN ISOPHANE 3ML VIAL SC SCH ×3 (00:15→16:20)
--- NOTE | 2018-07-03 01:53 | RADRPT ---
Vent Rate: 85 bpm RR Interval: 0 msec IN Interval: 158 msec QRS Duration: 162 msec QT Interval: 426 msec QTC Interval: 506 msec P-R-T [place]: 58 - 0 - 70 degrees Normal sinus rhythm Right bundle branch block Septal infarct , age undetermined Abnormal ECG Electronically Signed By: Heath Galvan [id number]
[2018-07-03] MEDS: PANTOPRAZOLE 40 MG INJ IV SCH (05:49)
[2018-07-03] MEDS: PIPER-TAZO 3.375 GM IV (PMX) 100 ML IVPB SCH ×3 (05:49→21:10)
[2018-07-03] MEDS: INSULIN ASPART [NOVOLOG] 3 ML PEN SC SCH ×4 (05:54→18:00)
[2018-07-03] MEDS: VANCOMYCIN HCL 1.25 GM in SOD CHLORIDE 0.9% 250 ML IVPB SCH ×2 (06:44→16:27)
--- NOTE | 2018-07-03 09:23 | CONS ---
Date/Time of Note Date/Time of Note DATE: 07/03/18 TIME: 09:21 Assessment/Plan Assessment/Plan Assessment/Plan Ventilator setting; AC of 16, tidal volume 500, PEEP of 5, 40% FiO2. Chest x-ray showing cardiomegaly with changes of mild CHF. Assessment recommendations; 1. Patient with history of chronic encephalopathy and VDR F admitted for sepsis due to Enterobacter UTI with possibly superimposed pneumonia as well. Currently on appropriate antimicrobial regimen. 2. Severe anemia. 3. History of prior craniotomy. Continue with supportive care. Result Diagram: 07/03/1842907/03/18429 Results 24hrs Laboratory Tests Test 07/02/18 13:05 07/02/18 17:56 07/03/18 00:02 07/03/18 04:30 Bedside Glucose 178 152 93 White Blood 6.2 Count Red Blood Count 2.76 L Hemoglobin 7.1 L Hematocrit 22.9 L Mean Corpuscular 83.0 Volume Mean Corpuscular 25.7 L Hemoglobin Mean Corpuscular 31.0 L Hemoglobin [place] nt Red Cell 15.5 H Distribution Width Platelet Count 238 Mean Platelet 10.0 Volume Immature 0.300 Granulocytes % Neutrophils % 66.8 Lymphocytes % 18.9 Monocytes % 9.7 Eosinophils % 4.0 Basophils % 0.3 Nucleated Red 0.0 Blood Cells % Immature 0.020 Granulocytes # Neutrophils # 4.1 Lymphocytes # 1.2 Monocytes # 0.6 Eosinophils # 0.3 Basophils # 0.0 Nucleated Red 0.0 Blood Cells # Sodium Level 142 Potassium Level 4.0 Chloride Level 106 Carbon Dioxide 29 Level Anion Gap 7 Blood Urea 17 Nitrogen Creatinine 0.54 L Est Glomerular > 60 Filtrat Rate mL/min Glucose Level 96 # Calcium Level 8.1 L Phosphorus Level 2.7 Magnesium Level 1.9 Vancomycin Level 12.0 Trough Test 07/03/18 05:05 07/03/18 05:54 07/03/18 07:00 Lab Scanned BLOOD TRANSFUSI Report ON Bedside Glucose 88 Blood Gas Blood arterial Specimen Source Arterial Blood 07/03/2018 8:25: Date Drawn 36 AM Arterial Blood 7.469 H pH (Temp corrected) Arterial Blood 37.0 pCO2 (Temp correct) Arterial Blood 133.6 H pO2 (Temp corrected) Arterial Blood 26.3 H HCO3 Arterial Blood 2.5 Base Excess Arterial Blood 98.7 H Oxygen Saturatio n Rl Test ACCEPTAB Arterial Blood Right Radial Gas Puncture Site Arterial 0.3 Blood Carboxyhem oglobin Arterial Blood 0.3 Methemoglobin Blood Gas A-a O2 109.1 H Differential Oxyhemoglobin 98.1 Percent Blood Gas 37.0 Temperature Blood Gas 16.0 Respiration Rate Blood Gas Actual 21 Respiration Rate Blood Gas VENT - AC Modality FiO2 40.0 Blood Gas Tidal 500.0 Volume Blood Gas Low 5.0 PEEP Setting Blood Gas DT Notified Whom Blood Gas 07/03/2018 8:46: Notified Time 32 AM Consultation Date/Type/Reason Admit Date/Time Jun 30, 2018 at 16:55 Initial Consult Date Type of Consult Pulmonary/critical care Reason for Consultation Patient's condition is stable. Due to chronic encephalopathy, patient remains completely unresponsive. But has remained hemodynamically stable. General exam; middle-aged male, on ventilator via tracheostomy, unresponsive, currently in no distress. Requesting Provider: NIA DOMINGO MD 24 HR Interval Summary Free Text/Dictation HEENT exam; supple neck, no JVD. No lymphadenopathy. Midline trachea. No thyromegaly. There are multiple well-healed craniotomy scars. Patient has fair dentition. Tracheostomy in place. Chest exam; diminished but clear breath sounds. S1-S2 audible, no murmurs. Regular rhythm. Abdomen exam; soft, no organomegaly. G-tube in place. Bowel sounds audible. Extremity exam: No edema or clubbing. [employer] exam; patient remains unresponsive. Exam/Review of Systems Vital Signs Vitals Vital Signs Date Temp Pulse Resp B/P (MAP) Pulse Ox O2 O2 Flow FiO2 Time Delivery Rate 07/03/18 59 08:00 07/03/18 18 154/87 100 Mechanical 07:00 (109) Ventilator 07/03/18 40 04:50 07/03/18 98.0 04:00 Intake and Output 07/02/18 07/02/18 07/03/18 1515:00 23:00 07:00 IntakeIntake Total 1535.625 ml 2090 ml 1455 ml OutputOutput Total 590 ml 595 ml 450 ml BalanceBalance 945.625 ml 1495 ml 1005 ml Medications Medications Current Medications Norepinephrine 250 ml @ 1.875 mls/ hr TITRATE IV Last administered on 07/02/18at 06:12; Admin Dose 1.875 MLS/HR; Start 06/30/18 at 17:00 Potassium Chloride/Sodium Chloride 1,000 ml @ 100 mls/hr Q10H IV Last administered on 07/02/18at 23:14; Admin Dose 100 MLS/HR; Start 06/30/18 at 23:45 IV Flush (NS 3 ml) 3 ml PER PROTOCOL IV ; Start 07/01/18 at 00:00 Ondansetron HCl (Zofran Inj) 4 mg Q6H PRN IV NAUSEA AND/OR VOMITING; Start 07/01/18 at 00:00 Albuterol (Proventil 0.083% (Neb)) 2.5 mg Q2H RESP THERAPY PRN NEB SHORTNESS OF BREATH; Start 07/01/18 at 00:00 Ipratropium [place] (Atrovent 0.02% (Neb)) 0.5 mg Q2H RESP THERAPY PRN NEB SHORTNESS OF BREATH; Start 07/01/18 at 00:00 Acetaminophen (Tylenol Liquid) 650 mg Q6H PRN PO PAIN LEVEL 1-3 OR FEVER; Start 07/01/18 at 00:00 Morphine Sulfate (morphine) 2 mg Q4H PRN IV PAIN LEVEL 7-10; Start 07/01/18 at 00:00 Lorazepam (Ativan) 1 mg Q2H PRN IV ANXIETY; Start 07/01/18 at 00:00 Docusate Sodium (Colace) 100 mg Q12H PRN PO CONSTIPATION; Start 07/01/18 at 00:00 Magnesium Hydroxide (Milk Of Mag) 30 ml DAILY PRN PO CONSTIPATION; Start 07/01/18 at 00:00 Pantoprazole (Protonix Iv) 40 mg DAILY@06 IV Last administered on 07/03/18at 05:49; Admin Dose 40 MG; Start 07/01/18 at 06:00 Enoxaparin Sodium (Lovenox) 30 mg DAILY SC Last administered on 07/02/18at 17:48; Admin Dose 30 MG; Start 07/01/18 at 09:00 Atorvastatin Calcium (Lipitor) 80 mg QHS GTB Last administered on 07/02/18at 21:56; Admin Dose 80 MG; Start 07/01/18 at 21:00 Bisacodyl (Dulcolax Supp) 10 mg Q24H PRN [place] NEEDED; Start 07/01/18 at 00:00 Carvedilol (Coreg) 3.125 mg BID GTB Last administered on 07/02/18at 21:56; Admin Dose 3.125 MG; Start 07/01/18 at 09:00 Insulin Human NPH (Humulin N) 28 unit Q8H SC Last administered on 07/03/18at 00:15; Admin Dose 28 UNIT; Start 07/01/18 at 00:00 Valproate Sodium (Depakene Liquid Cup) 500 mg Q8H GTB Last administered on 07/03/18at 00:12; Admin Dose 500 MG; Start 07/01/18 at 00:00 Insulin Aspart (Novolog Insulin Pen) NOVOLOG *MILD* ALGORITHM Q6 SC Last administered on 07/02/18at 17:58; Admin Dose 1 UNIT; Start 07/01/18 at 00:00 Miscellaneous Information 1 ea NOTE XX ; Start 07/01/18 at 00:30 Glucose (Glutose) 15 gm Q15M PRN PO DECREASED GLUCOSE; Start 07/01/18 at 00:30 Glucose (Glutose) 22.5 gm Q15M PRN PO DECREASED GLUCOSE; Start 07/01/18 at 00:30 Dextrose (D50w Syringe) 25 ml Q15M PRN IV DECREASED GLUCOSE; Start 07/01/18 at 00:30 Dextrose (D50w Syringe) 50 ml Q15M PRN IV DECREASED GLUCOSE; Start 07/01/18 at 00:30 Glucagon (Glucagen) 1 mg Q15M PRN IM DECREASED GLUCOSE; Start 07/01/18 at 00:30 Glucose (Glutose) 15 gm Q15M PRN BUCCAL DECREASED GLUCOSE; Start 07/01/18 at 00:30 Aspirin (Aspirin) 162 mg DAILY PEG Last administered on 07/02/18at 09:34; Admin Dose 162 MG; Start 07/01/18 at 12:30 Vancomycin HCl (Vanco Iv Per Pharmacy) VANCOMYCIN PER PHARMACY PER PROTOCOL XX ; Start 07/01/18 at 15:00 Piperacillin Sod/ Tazobactam Sod 100 ml @ 200 mls/hr Q8 IVPB Last administered on 07/03/18at 05:49; Admin Dose 200 MLS/HR; Start 07/01/18 at 15:40 Vancomycin HCl 1.25 gm/Sodium Chloride 250 ml @ 83.333 mls/ hr Q12H IVPB Last administered on 07/03/18at 06:44; Admin Dose 83.333 MLS/HR; Start 07/01/18 at 17:00 IV Flush (NS 10 ml) 10 ml PRN PRN IV FLUSH LINE; Start 07/02/18 at 14:00 MER CHRIS Jul 03, 2018 09:23
[2018-07-03] MEDS: ASPIRIN 81 MG TAB PEG SCH (09:25)
[2018-07-03] MEDS: NS + KCL 20 MEQ 1,000 ML IV SCH ×2 (09:50→21:10)
--- NOTE | 2018-07-03 10:56 | PN ---
Date/Time of Note Date/Time of Note DATE: 07/03/18 TIME: 10:55 Assessment/Plan VTE Prophylaxis Risk score (from Ns)>0 risk: 9 SCD applied (from Ns): Yes Pharmacological prophylaxis: LMWH Lines/Catheters IV Catheter Type (from [facility] PICC Line Central line still needed: Yes Urinary Cath still in place: Yes Reason Cath still needed: skin wounds contaminated by urine Assessment/Plan Hospital Course -Sepsis most likely secondary to HCAP and urinary tract infection, f/up on urine and blood cultures. Continue broad-spectrum antibiotics. Dr. Hodge is following in infection disease consultation. -Septic shock, continue IVF, pressors, ICU care. -ARF, continue ventilatory support. Dr Mitchell is following in pulmonology consultation. -Chronic tracheostomy -Dysphagia with PEG -Coronary artery disease status post stent placement to LAD and RCA. Dr. Vincent is following in cardiology consultation. -Cardiomyopathy with ejection fraction of 25-30% -Hypertension -Diabetes -Morbid obesity -Chronic encephalopathy Result Diagram: 07/03/1842907/03/18 0430 Results 24hrs Laboratory Tests Test 07/02/18 13:05 07/02/18 17:56 07/03/18 00:02 07/03/18 04:30 Bedside Glucose 178 152 93 White Blood 6.2 Count Red Blood Count 2.76 L Hemoglobin 7.1 L Hematocrit 22.9 L Mean Corpuscular 83.0 Volume Mean Corpuscular 25.7 L Hemoglobin Mean Corpuscular 31.0 L Hemoglobin Dolores nt Red Cell 15.5 H Distribution Width Platelet Count 238 Mean Platelet 10.0 Volume Immature 0.300 Granulocytes % Neutrophils % 66.8 Lymphocytes % 18.9 Monocytes % 9.7 Eosinophils % 4.0 Basophils % 0.3 Nucleated Red 0.0 Blood Cells % Immature 0.020 Granulocytes # Neutrophils # 4.1 Lymphocytes # 1.2 Monocytes # 0.6 Eosinophils # 0.3 Basophils # 0.0 Nucleated Red 0.0 Blood Cells # Sodium Level 142 Potassium Level 4.0 Chloride Level 106 Carbon Dioxide 29 Level Anion Gap 7 Blood Urea 17 Nitrogen Creatinine 0.54 L Est Glomerular > 60 Filtrat Rate mL/min Glucose Level 96 # Calcium Level 8.1 L Phosphorus Level 2.7 Magnesium Level 1.9 Vancomycin Level 12.0 Trough Test 07/03/18 05:05 07/03/18 05:54 1/12/19 07:00 07/03/18 09:07 Lab Scanned BLOOD TRANSFUSI Report ON Bedside Glucose 88 103 Blood Gas Blood arterial Specimen Source Arterial Blood 07/03/2018 8:25: Date Drawn 36 AM Arterial Blood 7.469 H pH (Temp corrected) Arterial Blood 37.0 pCO2 (Temp correct) Arterial Blood 133.6 H pO2 (Temp corrected) Arterial Blood 26.3 H HCO3 Arterial Blood 2.5 Base Excess Arterial Blood 98.7 H Oxygen Saturatio n Rl Test ACCEPTAB Arterial Blood Right Radial Gas Puncture Site Arterial 0.3 Blood Carboxyhem oglobin Arterial Blood 0.3 Methemoglobin Blood Gas A-a O2 109.1 H Differential Oxyhemoglobin 98.1 Percent Blood Gas 37.0 Temperature Blood Gas 16.0 Respiration Rate Blood Gas Actual 21 Respiration Rate Blood Gas VENT - AC Modality FiO2 40.0 Blood Gas Tidal 500.0 Volume Blood Gas Low 5.0 PEEP Setting Blood Gas DT Notified Whom Blood Gas 07/03/2018 8:46: Notified Time 32 AM Subjective 24 Hr Interval Summary Free Text/Dictation Patient is sedated, trach in place Exam/Review of Systems Vital Signs Vitals Vital Signs Date Temp Pulse Resp B/P (MAP) Pulse Ox O2 O2 Flow FiO2 Time Delivery Rate 07/03/18 59 08:00 07/03/18 40 08:00 07/03/18 18 154/87 100 Mechanical 07:00 (109) Ventilator 07/03/18 98.0 04:00 Intake and Output 07/02/18 07/02/18 07/03/18 1515:00 23:00 07:00 IntakeIntake Total 1535.625 ml 2090 ml 1455 ml OutputOutput Total 590 ml 595 ml 450 ml BalanceBalance 945.625 ml 1495 ml 1005 ml Exam Constitutional: well developed Head: normocephalic, atraumatic Neck: supple Respiratory: diminished breath sounds Cardiovascular: regular rate and rhythm Gastrointestinal: soft, non-tender Medications Medications Current Medications Norepinephrine 250 ml @ 1.875 mls/ hr TITRATE IV Last administered on 07/02/18at 06:12; Admin Dose 1.875 MLS/HR; Start 06/30/18 at 17:00 Potassium Chloride/Sodium Chloride 1,000 ml @ 100 mls/hr Q10H IV Last administered on 07/03/18at 09:50; Admin Dose 100 MLS/HR; Start 06/30/18 at 23:45 IV Flush (NS 3 ml) 3 ml PER PROTOCOL IV ; Start 07/01/18 at 00:00 Ondansetron HCl (Zofran Inj) 4 mg Q6H PRN IV NAUSEA AND/OR VOMITING; Start 07/01/18 at 00:00 Albuterol (Proventil 0.083% (Neb)) 2.5 mg Q2H RESP THERAPY PRN NEB SHORTNESS OF BREATH; Start 07/01/18 at 00:00 Ipratropium [place] (Atrovent 0.02% (Neb)) 0.5 mg Q2H RESP THERAPY PRN NEB SHORTNESS OF BREATH; Start 07/01/18 at 00:00 Acetaminophen (Tylenol Liquid) 650 mg Q6H PRN PO PAIN LEVEL 1-3 OR FEVER; Start 07/01/18 at 00:00 Morphine Sulfate (morphine) 2 mg Q4H PRN IV PAIN LEVEL 7-10; Start 07/01/18 at 00:00 Lorazepam (Ativan) 1 mg Q2H PRN IV ANXIETY; Start 07/01/18 at 00:00 Docusate Sodium (Colace) 100 mg Q12H PRN PO CONSTIPATION; Start 07/01/18 at 00:00 Magnesium Hydroxide (Milk Of Mag) 30 ml DAILY PRN PO CONSTIPATION; Start 07/01/18 at 00:00 Pantoprazole (Protonix Iv) 40 mg DAILY@06 IV Last administered on 07/03/18at 05:49; Admin Dose 40 MG; Start 07/01/18 at 06:00 Enoxaparin Sodium (Lovenox) 30 mg DAILY SC Last administered on 07/02/18at 17:48; Admin Dose 30 MG; Start 07/01/18 at 09:00 Atorvastatin Calcium (Lipitor) 80 mg QHS GTB Last administered on 07/02/18at 21:56; Admin Dose 80 MG; Start 07/01/18 at 21:00 Bisacodyl (Dulcolax Supp) 10 mg Q24H PRN [place] NEEDED; Start 07/01/18 at 00:00 Carvedilol (Coreg) 3.125 mg BID GTB Last administered on 07/02/18at 21:56; Admin Dose 3.125 MG; Start 07/01/18 at 09:00 Insulin Human NPH (Humulin N) 28 unit Q8H SC Last administered on 07/03/18at 09:26; Admin Dose 28 UNIT; Start 07/01/18 at 00:00 Valproate Sodium (Depakene Liquid Cup) 500 mg Q8H GTB Last administered on 07/03/18at 09:25; Admin Dose 500 MG; Start 07/01/18 at 00:00 Insulin Aspart (Novolog Insulin Pen) NOVOLOG *MILD* ALGORITHM Q6 SC Last administered on 07/02/18at 17:58; Admin Dose 1 UNIT; Start 07/01/18 at 00:00 Miscellaneous Information 1 ea NOTE XX ; Start 07/01/18 at 00:30 Glucose (Glutose) 15 gm Q15M PRN PO DECREASED GLUCOSE; Start 07/01/18 at 00:30 Glucose (Glutose) 22.5 gm Q15M PRN PO DECREASED GLUCOSE; Start 07/01/18 at 00:30 Dextrose (D50w Syringe) 25 ml Q15M PRN IV DECREASED GLUCOSE; Start 07/01/18 at 00:30 Dextrose (D50w Syringe) 50 ml Q15M PRN IV DECREASED GLUCOSE; Start 07/01/18 at 00:30 Glucagon (Glucagen) 1 mg Q15M PRN IM DECREASED GLUCOSE; Start 07/01/18 at 00:30 Glucose (Glutose) 15 gm Q15M PRN BUCCAL DECREASED GLUCOSE; Start 07/01/18 at 00:30 Aspirin (Aspirin) 162 mg DAILY PEG Last administered on 07/03/18at 09:25; Admin Dose 162 MG; Start 07/01/18 at 12:30 Vancomycin HCl (Vanco Iv Per Pharmacy) VANCOMYCIN PER PHARMACY PER PROTOCOL XX ; Start 07/01/18 at 15:00 Piperacillin Sod/ Tazobactam Sod 100 ml @ 200 mls/hr Q8 IVPB Last administered on 07/03/18at 05:49; Admin Dose 200 MLS/HR; Start 07/01/18 at 15:40 Vancomycin HCl 1.25 gm/Sodium Chloride 250 ml @ 83.333 mls/ hr Q12H IVPB Last administered on 07/03/18at 06:44; Admin Dose 83.333 MLS/HR; Start 07/01/18 at 17:00 IV Flush (NS 10 ml) 10 ml PRN PRN IV FLUSH LINE; Start 07/02/18 at 14:00 PARAS MURILLO Jul 03, 2018 10:56
[2018-07-03] MEDS: ENOXAPARIN 30 MG/0.3 ML SYG SC SCH (11:24)
--- NOTE | 2018-07-03 13:56 | CONS ---
Date/Time of Note Date/Time of Note DATE: 07/03/18 TIME: 13:53 Assessment/Plan Assessment/Plan Hospital Course IMPRESSION: 1. Hypotension/shock state and likely septic.- now off levophed 2. Cardiomyopathy with decreased left ventricular ejection fraction, last known to be 30% by echo in 01/2018.-neg trop x 3 3. History of prior percutaneous transluminal coronary angioplasty and stent placements, most recently to LAD in 2014. 4. Urinary tract infection, likely urosepsis. 5. Diabetes mellitus. 6. Chronic respiratory failure, status post tracheostomy. 7. Dysphagia, status post G-tube. 8. Chronic encephalopathy. 9. Leukocytosis. 10. History of hemorrhagic cerebrovascular accident. 11.NSVT-overnight Recc: -ICU -Follow BP and will resume ACEI -Continue BB at current dose -Give Magnesium repletion -Follow volume status clsoely -F/U cx data -Gentle lasix diuresis Result Diagram: 07/03/18 1117 07/03/18 0430 Results 24hrs Laboratory Tests Test 07/02/18 17:56 07/03/18 00:02 07/03/18 04:30 07/03/18 05:05 Bedside Glucose 152 93 White Blood 6.2 Count Red Blood Count 2.76 L Hemoglobin 7.1 L Hematocrit 22.9 L Mean Corpuscular 83.0 Volume Mean Corpuscular 25.7 L Hemoglobin Mean Corpuscular 31.0 L Hemoglobin Dolores nt Red Cell 15.5 H Distribution Width Platelet Count 238 Mean Platelet 10.0 Volume Immature 0.300 Granulocytes % Neutrophils % 66.8 Lymphocytes % 18.9 Monocytes % 9.7 Eosinophils % 4.0 Basophils % 0.3 Nucleated Red 0.0 Blood Cells % Immature 0.020 Granulocytes # Neutrophils # 4.1 Lymphocytes # 1.2 Monocytes # 0.6 Eosinophils # 0.3 Basophils # 0.0 Nucleated Red 0.0 Blood Cells # Sodium Level 142 Potassium Level 4.0 Chloride Level 106 Carbon Dioxide 29 Level Anion Gap 7 Blood Urea 17 Nitrogen Creatinine 0.54 L Est Glomerular > 60 Filtrat Rate mL/min Glucose Level 96 # Calcium Level 8.1 L Phosphorus Level 2.7 Magnesium Level 1.9 Vancomycin Level 12.0 Trough Lab Scanned BLOOD TRANSFUSI Report ON Test 07/03/18 05:54 07/03/18 07:00 07/03/18 09:07 1/12/19 11:17 Bedside Glucose 88 103 Blood Gas Blood arterial Specimen Source Arterial Blood 07/03/2018 8:25: Date Drawn 36 AM Arterial Blood 7.469 H pH (Temp corrected) Arterial Blood 37.0 pCO2 (Temp correct) Arterial Blood 133.6 H pO2 (Temp corrected) Arterial Blood 26.3 H HCO3 Arterial Blood 2.5 Base Excess Arterial Blood 98.7 H Oxygen Saturatio n Rl Test ACCEPTAB Arterial Blood Right Radial Gas Puncture Site Arterial 0.3 Blood Carboxyhem oglobin Arterial Blood 0.3 Methemoglobin Blood Gas A-a O2 109.1 H Differential Oxyhemoglobin 98.1 Percent Blood Gas 37.0 Temperature Blood Gas 16.0 Respiration Rate Blood Gas Actual 21 Respiration Rate Blood Gas VENT - AC Modality FiO2 40.0 Blood Gas Tidal 500.0 Volume Blood Gas Low 5.0 PEEP Setting Blood Gas DT Notified Whom Blood Gas 07/03/2018 8:46: Notified Time 32 AM Hemoglobin 7.6 L Hematocrit 24.3 L Test 07/03/18 12:26 Bedside Glucose 118 Consultation Date/Type/Reason Admit Date/Time Jun 30, 2018 at 16:55 Initial Consult Date 06/30/18 Type of Consult cardiology Reason for Consultation cardiomyopathy Requesting Provider: NIA DOMINGO MD Exam/Review of Systems Vital Signs Vitals Vital Signs Date Temp Pulse Resp B/P (MAP) Pulse Ox O2 O2 Flow FiO2 Time Delivery Rate 07/03/18 59 16 100 40 13:20 07/03/18 154/78 Mechanical 11:00 (103) Ventilator 07/03/18 98.1 08:00 Intake and Output 07/02/18 07/02/18 07/03/18 1515:00 23:00 07:00 IntakeIntake Total 1535.625 ml 2090 ml 1455 ml OutputOutput Total 590 ml 595 ml 450 ml BalanceBalance 945.625 ml 1495 ml 1005 ml Exam Review of Systems: CONSTITUTIONAL: No fevers, chills. PULMONARY: No sob CARDIOVASCULAR: No chest pain/palpitations GASTROINTESTINAL: No nausea/vomiting. GENITOURINARY: No hematuria/dysuria. MUSCULOSKELETAL: No myagias/arthalgias. PSYCHIATRIC: The patient denies depression. NEUROLOGIC: No weakness Constitutional: alert Psych: no complaints Head: normocephalic ENMT: mucosa pink and moist Neck: supple, jvd (9 cm water) Respiratory: diminished breath sounds (at bases/B) Cardiovascular: regular rate and rhythm Gastrointestinal: soft, non-tender Musculoskeletal: muscle tone (normal) Extremities: edema (none) Neurological: other (encephalopathic) Medications Medications Current Medications Norepinephrine 250 ml @ 1.875 mls/ hr TITRATE IV Last administered on 07/02/18at 06:12; Admin Dose 1.875 MLS/HR; Start 06/30/18 at 17:00 Potassium Chloride/Sodium Chloride 1,000 ml @ 100 mls/hr Q10H IV Last administered on 07/03/18at 09:50; Admin Dose 100 MLS/HR; Start 06/30/18 at 23:45 IV Flush (NS 3 ml) 3 ml PER PROTOCOL IV ; Start 07/01/18 at 00:00 Ondansetron HCl (Zofran Inj) 4 mg Q6H PRN IV NAUSEA AND/OR VOMITING; Start 07/01/18 at 00:00 Albuterol (Proventil 0.083% (Neb)) 2.5 mg Q2H RESP THERAPY PRN NEB SHORTNESS OF BREATH; Start 07/01/18 at 00:00 Ipratropium [place] (Atrovent 0.02% (Neb)) 0.5 mg Q2H RESP THERAPY PRN NEB SHORTNESS OF BREATH; Start 07/01/18 at 00:00 Acetaminophen (Tylenol Liquid) 650 mg Q6H PRN PO PAIN LEVEL 1-3 OR FEVER; Start 07/01/18 at 00:00 Morphine Sulfate (morphine) 2 mg Q4H PRN IV PAIN LEVEL 7-10; Start 07/01/18 at 00:00 Lorazepam (Ativan) 1 mg Q2H PRN IV ANXIETY; Start 07/01/18 at 00:00 Docusate Sodium (Colace) 100 mg Q12H PRN PO CONSTIPATION; Start 07/01/18 at 00:00 Magnesium Hydroxide (Milk Of Mag) 30 ml DAILY PRN PO CONSTIPATION; Start 07/01/18 at 00:00 Pantoprazole (Protonix Iv) 40 mg DAILY@06 IV Last administered on 07/03/18at 05:49; Admin Dose 40 MG; Start 07/01/18 at 06:00 Enoxaparin Sodium (Lovenox) 30 mg DAILY SC Last administered on 07/03/18at 11:24; Admin Dose 30 MG; Start 07/01/18 at 09:00 Atorvastatin Calcium (Lipitor) 80 mg QHS GTB Last administered on 07/02/18at 21:56; Admin Dose 80 MG; Start 07/01/18 at 21:00 Bisacodyl (Dulcolax Supp) 10 mg Q24H PRN [place] NEEDED; Start 07/01/18 at 00:00 Carvedilol (Coreg) 3.125 mg BID GTB Last administered on 07/03/18at 11:24; Admin Dose 3.125 MG; Start 07/01/18 at 09:00 Insulin Human NPH (Humulin N) 28 unit Q8H SC Last administered on 07/03/18 09:26; Admin Dose 28 UNIT; Start 07/01/18 at 00:00 Valproate Sodium (Depakene Liquid Cup) 500 mg Q8H GTB Last administered on 07/03/18 09:25; Admin Dose 500 MG; Start 07/01/18 at 00:00 Insulin Aspart (Novolog Insulin Pen) NOVOLOG *MILD* ALGORITHM Q6 SC Last administered on 07/02/18at 17:58; Admin Dose 1 UNIT; Start 07/01/18 at 00:00 Miscellaneous Information 1 ea NOTE XX ; Start 07/01/18 at 00:30 Glucose (Glutose) 15 gm Q15M PRN PO DECREASED GLUCOSE; Start 07/01/18 at 00:30 Glucose (Glutose) 22.5 gm Q15M PRN PO DECREASED GLUCOSE; Start 07/01/18 at 00:30 Dextrose (D50w Syringe) 25 ml Q15M PRN IV DECREASED GLUCOSE; Start 07/01/18 at 00:30 Dextrose (D50w Syringe) 50 ml Q15M PRN IV DECREASED GLUCOSE; Start 07/01/18 at 00:30 Glucagon (Glucagen) 1 mg Q15M PRN IM DECREASED GLUCOSE; Start 07/01/18 at 00:30 Glucose (Glutose) 15 gm Q15M PRN BUCCAL DECREASED GLUCOSE; Start 07/01/18 at 00:30 Aspirin (Aspirin) 162 mg DAILY PEG Last administered on 07/03/18 09:25; Admin Dose 162 MG; Start 07/01/18 at 12:30 Vancomycin HCl (Vanco Iv Per Pharmacy) VANCOMYCIN PER PHARMACY PER PROTOCOL XX ; Start 07/01/18 at 15:00 Piperacillin Sod/ Tazobactam Sod 100 ml @ 200 mls/hr Q8 IVPB Last administered on 07/03/18at 05:49; Admin Dose 200 MLS/HR; Start 07/01/18 at 15:40 Vancomycin HCl 1.25 gm/Sodium Chloride 250 ml @ 83.333 mls/ hr Q12H IVPB Last administered on 07/03/18at 06:44; Admin Dose 83.333 MLS/HR; Start 07/01/18 at 17:00 IV Flush (NS 10 ml) 10 ml PRN PRN IV FLUSH LINE; Start 07/02/18 at 14:00 MAE ROSALES Jul 03, 2018 13:56
[2018-07-03] MEDS ORDERED: FUROSEMIDE 20 MG INJ IV ONE (14:00)
[2018-07-03] MEDS ORDERED: MAGNESIUM SULFATE 1 GM/D5W 100 ML IVPB ONE (14:00)
--- NOTE | 2018-07-03 14:08 | CONS ---
Date/Time of Note Date/Time of Note DATE: 07/03/18 TIME: 14:07 Assessment/Plan Assessment/Plan Hospital Course No acute events overnight patient looks comfortable no fevers vital signs stable WBC 6.2 H&H 7.6 and 24.3 platelets 238 no shift no bands BUN 17 creatinine 0.54 Chest x-ray this morning revealed persistent cardiomegaly with pulmonary vascular congestion and interstitial pulmonary edema, unchanged Microbiology: Urine culture grew Enterobacter erogenous, blood cultures negative Indwelling's: Trach PEG Nelson left upper extremity PICC line Antimicrobials: Vancomycin, Zosyn Physical examination: This is a chronically ill-appearing middle-aged man who is nonresponsive the patient is in no distress head with evidence of right-sided cranial bone removal, sclera nonicteric neck is supple tracheostomy present chest rise symmetrical breath sounds clear, diminished bases. Heart: S1-S2. Abdomen soft, bowel sounds present. Extremities mottled without edema Assessment: 1. Severe sepsis, status post shock 2. Healthcare associated pneumonia, possibly aspirated 3. Recurrent UTI 4. Chronic respiratory failure 5. History of intracranial hemorrhage status post craniotomy 6. Cardiomyopathy and history of PTCA 7. Diabetes and hypertension Plan: Remains unchanged, stable, continue antibiotics, follow cardiology and pulmonary recommendations Result Diagram: 07/03/18 1117 07/03/18 0430 Results 24hrs Laboratory Tests Test 07/02/18 17:56 07/03/18 00:02 07/03/18 04:30 07/03/18 05:05 Bedside Glucose 152 93 White Blood 6.2 Count Red Blood Count 2.76 L Hemoglobin 7.1 L Hematocrit 22.9 L Mean Corpuscular 83.0 Volume Mean Corpuscular 25.7 L Hemoglobin Mean Corpuscular 31.0 L Hemoglobin Dolores nt Red Cell 15.5 H Distribution Width Platelet Count 238 Mean Platelet 10.0 Volume Immature 0.300 Granulocytes % Neutrophils % 66.8 Lymphocytes % 18.9 Monocytes % 9.7 Eosinophils % 4.0 Basophils % 0.3 Nucleated Red 0.0 Blood Cells % Immature 0.020 Granulocytes # Neutrophils # 4.1 Lymphocytes # 1.2 Monocytes # 0.6 Eosinophils # 0.3 Basophils # 0.0 Nucleated Red 0.0 Blood Cells # Sodium Level 142 Potassium Level 4.0 Chloride Level 106 Carbon Dioxide 29 Level Anion Gap 7 Blood Urea 17 Nitrogen Creatinine 0.54 L Est Glomerular > 60 Filtrat Rate mL/min Glucose Level 96 # Calcium Level 8.1 L Phosphorus Level 2.7 Magnesium Level 1.9 Vancomycin Level 12.0 Trough Lab Scanned BLOOD TRANSFUSI Report ON Test 07/03/18 05:54 07/03/18 07:00 07/03/18 09:07 07/03/18 11:17 Bedside Glucose 88 103 Blood Gas Blood arterial Specimen Source Arterial Blood 07/03/2018 8:25: Date Drawn 36 AM Arterial Blood 7.469 H pH (Temp corrected) Arterial Blood 37.0 pCO2 (Temp correct) Arterial Blood 133.6 H pO2 (Temp corrected) Arterial Blood 26.3 H HCO3 Arterial Blood 2.5 Base Excess Arterial Blood 98.7 H Oxygen Saturatio n Rl Test ACCEPTAB Arterial Blood Right Radial Gas Puncture Site Arterial 0.3 Blood Carboxyhem oglobin Arterial Blood 0.3 Methemoglobin Blood Gas A-a O2 109.1 H Differential Oxyhemoglobin 98.1 Percent Blood Gas 37.0 Temperature Blood Gas 16.0 Respiration Rate Blood Gas Actual 21 Respiration Rate Blood Gas VENT - AC Modality FiO2 40.0 Blood Gas Tidal 500.0 Volume Blood Gas Low 5.0 PEEP Setting Blood Gas DT Notified Whom Blood Gas 07/03/2018 8:46: Notified Time 32 AM Hemoglobin 7.6 L Hematocrit 24.3 L Test 07/03/18 12:26 Bedside Glucose 118 Consultation Date/Type/Reason Admit Date/Time Jun 30, 2018 at 16:55 Initial Consult Date Type of Consult id Requesting Provider: NIA DOMINGO MD Exam/Review of Systems Vital Signs Vitals Vital Signs Date Temp Pulse Resp B/P (MAP) Pulse Ox O2 O2 Flow FiO2 Time Delivery Rate 07/03/18 59 16 100 40 13:20 07/03/18 154/78 Mechanical 11:00 (103) Ventilator 07/03/18 98.1 08:00 Intake and Output 07/02/18 07/02/18 07/03/18 1515:00 23:00 07:00 IntakeIntake Total 1535.625 ml 2090 ml 1455 ml OutputOutput Total 590 ml 595 ml 450 ml BalanceBalance 945.625 ml 1495 ml 1005 ml Medications Medications Current Medications Norepinephrine 250 ml @ 1.875 mls/ hr TITRATE IV Last administered on 07/02/18at 06:12; Admin Dose 1.875 MLS/HR; Start 06/30/18 at 17:00 Potassium Chloride/Sodium Chloride 1,000 ml @ 100 mls/hr Q10H IV Last administered on 07/03/18at 09:50; Admin Dose 100 MLS/HR; Start 06/30/18 at 23:45 IV Flush (NS 3 ml) 3 ml PER PROTOCOL IV ; Start 07/01/18 at 00:00 Ondansetron HCl (Zofran Inj) 4 mg Q6H PRN IV NAUSEA AND/OR VOMITING; Start at 00:00 Albuterol (Proventil 0.083% (Neb)) 2.5 mg Q2H RESP THERAPY PRN NEB SHORTNESS OF BREATH; Start 07/01/18 at 00:00 Ipratropium [place] (Atrovent 0.02% (Neb)) 0.5 mg Q2H RESP THERAPY PRN NEB SHORTNESS OF BREATH; Start 07/01/18 at 00:00 Acetaminophen (Tylenol Liquid) 650 mg Q6H PRN PO PAIN LEVEL 1-3 OR FEVER; Start 07/01/18 at 00:00 Morphine Sulfate (morphine) 2 mg Q4H PRN IV PAIN LEVEL 7-10; Start 07/01/18 at 00:00 Lorazepam (Ativan) 1 mg Q2H PRN IV ANXIETY; Start 07/01/18 at 00:00 Docusate Sodium (Colace) 100 mg Q12H PRN PO CONSTIPATION; Start 07/01/18 at 00:00 Magnesium Hydroxide (Milk Of Mag) 30 ml DAILY PRN PO CONSTIPATION; Start 07/01/18 at 00:00 Pantoprazole (Protonix Iv) 40 mg DAILY@06 IV Last administered on 07/03/18at 05:49; Admin Dose 40 MG; Start 07/01/18 at 06:00 Enoxaparin Sodium (Lovenox) 30 mg DAILY SC Last administered on 07/03/18at 11:24; Admin Dose 30 MG; Start 07/01/18 at 09:00 Atorvastatin Calcium (Lipitor) 80 mg QHS GTB Last administered on 07/02/18at 21:56; Admin Dose 80 MG; Start 07/01/18 at 21:00 Bisacodyl (Dulcolax Supp) 10 mg Q24H PRN [place] NEEDED; Start 07/01/18 at 00:00 Carvedilol (Coreg) 3.125 mg BID GTB Last administered on 07/03/18at 11:24; Admin Dose 3.125 MG; Start 07/01/18 at 09:00 Insulin Human NPH (Humulin N) 28 unit Q8H SC Last administered on 07/03/18at 09:26; Admin Dose 28 UNIT; Start 07/01/18 at 00:00 Valproate Sodium (Depakene Liquid Cup) 500 mg Q8H GTB Last administered on 07/03/18at 09:25; Admin Dose 500 MG; Start 07/01/18 at 00:00 Insulin Aspart (Novolog Insulin Pen) NOVOLOG *MILD* ALGORITHM Q6 SC Last administered on 07/02/18at 17:58; Admin Dose 1 UNIT; Start 07/01/18 at 00:00 Miscellaneous Information 1 ea NOTE XX ; Start 07/01/18 at 00:30 Glucose (Glutose) 15 gm Q15M PRN PO DECREASED GLUCOSE; Start 07/01/18 at 00:30 Glucose (Glutose) 22.5 gm Q15M PRN PO DECREASED GLUCOSE; Start 07/01/18 at 00:30 Dextrose (D50w Syringe) 25 ml Q15M PRN IV DECREASED GLUCOSE; Start 07/01/18 at 00:30 Dextrose (D50w Syringe) 50 ml Q15M PRN IV DECREASED GLUCOSE; Start 07/01/18 at 00:30 Glucagon (Glucagen) 1 mg Q15M PRN IM DECREASED GLUCOSE; Start 07/01/18 at 00:30 Glucose (Glutose) 15 gm Q15M PRN BUCCAL DECREASED GLUCOSE; Start 07/01/18 at 00:30 Aspirin (Aspirin) 162 mg DAILY PEG Last administered on 07/03/18at 09:25; Admin Dose 162 MG; Start 07/01/18 at 12:30 Vancomycin HCl (Vanco Iv Per Pharmacy) VANCOMYCIN PER PHARMACY PER PROTOCOL XX ; Start 07/01/18 at 15:00 Piperacillin Sod/ Tazobactam Sod 100 ml @ 200 mls/hr Q8 IVPB Last administered on 07/03/18at 14:03; Admin Dose 200 MLS/HR; Start 07/01/18 at 15:40 Vancomycin HCl 1.25 gm/Sodium Chloride 250 ml @ 83.333 mls/ hr Q12H IVPB Last administered on 07/03/18at 06:44; Admin Dose 83.333 MLS/HR; Start 07/01/18 at 17:00 IV Flush (NS 10 ml) 10 ml PRN PRN IV FLUSH LINE; Start 07/02/18 at 14:00 Magnesium Sulfate/ Dextrose 100 ml @ 100 mls/hr ONCE ONCE IVPB ; Start 07/03/18 at 14:00; Stop 07/03/18 at 14:59 Furosemide (Lasix) 20 mg DAILY IV ; Start 07/04/18 at 09:00 Benazepril HCl (Lotensin) 10 mg BID PO ; Start 07/03/18 at 21:00 SANDER AMADOR NP Jul 03, 2018 14:08
[2018-07-03] MEDS: ATORVASTATIN 80 MG TAB GTB SCH (21:11)
[2018-07-03] MEDS: BENAZEPRIL 10 MG TAB PO SCH (21:12)
[2018-07-04] VITALS (49 sets, daily range): BP systolic 85–165; BP diastolic 50–99; PULSE 44–173; RESP 11–31
[2018-07-04] MEDS: NPH, HUMAN INSULIN ISOPHANE 3ML VIAL SC SCH ×3 (00:54→17:01)
[2018-07-04] MEDS: PIPER-TAZO 3.375 GM IV (PMX) 100 ML IVPB SCH (05:31)
[2018-07-04] MEDS: VANCOMYCIN HCL 1.25 GM in SOD CHLORIDE 0.9% 250 ML IVPB SCH (05:32)
[2018-07-04] MEDS: PANTOPRAZOLE 40 MG INJ IV SCH (05:32)
[2018-07-04] MEDS: INSULIN ASPART [NOVOLOG] 3 ML PEN SC SCH ×4 (05:32→16:56)
[2018-07-04] MEDS: NS + KCL 20 MEQ 1,000 ML IV SCH ×3 (07:45→20:25)
[2018-07-04] MEDS: BENAZEPRIL 10 MG TAB PO SCH ×2 (09:04→22:12)
[2018-07-04] MEDS: ASPIRIN 81 MG TAB PEG SCH (09:04)
[2018-07-04] MEDS: VALPROIC ACID LIQUID CUP 250 MG/5 ML CUP GTB SCH ×2 (09:04→16:02)
[2018-07-04] MEDS: ENOXAPARIN 30 MG/0.3 ML SYG SC SCH (09:04)
[2018-07-04] MEDS: FUROSEMIDE 20 MG INJ IV SCH (09:05)
--- NOTE | 2018-07-04 10:56 | CONS ---
Date/Time of Note Date/Time of Note DATE: 07/04/18 TIME: 10:53 Assessment/Plan Assessment/Plan Assessment/Plan Ventilator setting; AC of 16, tidal volume 500, PEEP of 5, 40% FiO2. Assessment and recommendations; 1. Patient with history of chronic encephalopathy and VDR F admitted for sepsis due to pneumonia and UTI. Currently on appropriate antimicrobial regimen. 2. Underlying cardia myopathy. 3. History of prior craniotomy. 4. Anemia. Continue current supportive care. Patient can be transferred to telemetry unit. Overall prognosis remains poor. Result Diagram: 07/03/18 1117 07/03/18 0430 Results 24hrs Laboratory Tests Test 07/03/18 11:17 07/03/18 12:26 07/03/18 18:41 07/03/18 23:23 Hemoglobin 7.6 L Hematocrit 24.3 L Bedside Glucose 118 98 79 Test 07/04/18 00:49 07/04/18 05:27 07/04/18 09:40 Bedside Glucose 99 85 107 Consultation Date/Type/Reason Admit Date/Time Jun 30, 2018 at 16:55 Initial Consult Date Type of Consult Pulmonary/critical care Requesting Provider: NIA DOMINGO MD 24 HR Interval Summary Free Text/Dictation Patient's condition remains stable. Has remained hemodynamically stable. General exam; middle-aged male, on ventilator via tracheostomy, unresponsive, currently in no distress. Exam/Review of Systems Vital Signs Vitals Vital Signs Date Temp Pulse Resp B/P (MAP) Pulse Ox O2 O2 Flow FiO2 Time Delivery Rate 07/04/18 61 17 112/60 100 Mechanical 10:30 (77) Ventilator 07/04/18 40 08:00 07/04/18 98.2 08:00 Intake and Output 07/03/18 07/03/18 07/04/18 1515:00 23:00 07:00 IntakeIntake Total 1780 ml 1530 ml 1480 ml OutputOutput Total 1550 ml 1465 ml 560 ml BalanceBalance 230 ml 65 ml 920 ml Exam H EENT exam; supple neck, no JVD. No lymphadenopathy. Midline trachea. No thyromegaly. There are multiple right parietal craniotomy scars. Patient has fair dentition. Tracheostomy in place. Insertion site is clean. Chest exam; diminished but clear breath sounds. S1-S2 audible, no murmurs. Regular rhythm. Abdomen exam; soft, no organomegaly. G-tube in place. Bowel sounds audible. Extremity exam; no edema. Pulses 1+. ARCHITECTURAL ASSOCIATE exam; patient remains noncommunicative. Medications Medications Current Medications Norepinephrine 250 ml @ 1.875 mls/ hr TITRATE IV Last administered on 07/02/18at 06:12; Admin Dose 1.875 MLS/HR; Start 06/30/18 at 17:00 Potassium Chloride/Sodium Chloride 1,000 ml @ 100 mls/hr Q10H IV Last administered on 07/04/18at 10:15; Admin Dose 100 MLS/HR; Start 06/30/18 at 23:45 IV Flush (NS 3 ml) 3 ml PER PROTOCOL IV ; Start 07/01/18 at 00:00 Ondansetron HCl (Zofran Inj) 4 mg Q6H PRN IV NAUSEA AND/OR VOMITING; Start 07/01/18 at 00:00 Albuterol (Proventil 0.083% (Neb)) 2.5 mg Q2H RESP THERAPY PRN NEB SHORTNESS OF BREATH; Start 07/01/18 at 00:00 Ipratropium [place] (Atrovent 0.02% (Neb)) 0.5 mg Q2H RESP THERAPY PRN NEB SHORTNESS OF BREATH; Start 07/01/18 at 00:00 Acetaminophen (Tylenol Liquid) 650 mg Q6H PRN PO PAIN LEVEL 1-3 OR FEVER; Start 07/01/18 at 00:00 Morphine Sulfate (morphine) 2 mg Q4H PRN IV PAIN LEVEL 7-10; Start 07/01/18 at 00:00 Lorazepam (Ativan) 1 mg Q2H PRN IV ANXIETY Last administered on 07/03/18at 23:31; Admin Dose 1 MG; Start 07/01/18 at 00:00 Docusate Sodium (Colace) 100 mg Q12H PRN PO CONSTIPATION; Start 07/01/18 at 00:00 Magnesium Hydroxide (Milk Of Mag) 30 ml DAILY PRN PO CONSTIPATION; Start at 00:00 Pantoprazole (Protonix Iv) 40 mg DAILY@06 IV Last administered on 07/04/18at 05:32; Admin Dose 40 MG; Start 07/01/18 at 06:00 Enoxaparin Sodium (Lovenox) 30 mg DAILY SC Last administered on 07/04/18 09:04; Admin Dose 30 MG; Start 07/01/18 at 09:00 Atorvastatin Calcium (Lipitor) 80 mg QHS GTB Last administered on 07/03/18at 21:11; Admin Dose 80 MG; Start 07/01/18 at 21:00 Bisacodyl (Dulcolax Supp) 10 mg Q24H PRN [place] NEEDED; Start 07/01/18 at 00:00 Carvedilol (Coreg) 3.125 mg BID GTB Last administered on 07/04/18at 09:05; Admin Dose 3.125 MG; Start 07/01/18 at 09:00 Insulin Human NPH (Humulin N) 28 unit Q8H SC Last administered on 07/04/18at 09:43; Admin Dose 28 UNIT; Start 07/01/18 at 00:00 Valproate Sodium (Depakene Liquid Cup) 500 mg Q8H GTB Last administered on 07/04/18at 09:04; Admin Dose 500 MG; Start 07/01/18 at 00:00 Insulin Aspart (Novolog Insulin Pen) NOVOLOG *MILD* ALGORITHM Q6 SC Last administered on 07/02/18at 17:58; Admin Dose 1 UNIT; Start 07/01/18 at 00:00 Miscellaneous Information 1 ea NOTE XX ; Start 07/01/18 at 00:30 Glucose (Glutose) 15 gm Q15M PRN PO DECREASED GLUCOSE; Start 07/01/18 at 00:30 Glucose (Glutose) 22.5 gm Q15M PRN PO DECREASED GLUCOSE; Start 07/01/18 at 00:30 Dextrose (D50w Syringe) 25 ml Q15M PRN IV DECREASED GLUCOSE; Start 07/01/18 at 00:30 Dextrose (D50w Syringe) 50 ml Q15M PRN IV DECREASED GLUCOSE; Start 07/01/18 at 00:30 Glucagon (Glucagen) 1 mg Q15M PRN IM DECREASED GLUCOSE; Start 07/01/18 at 00:30 Glucose (Glutose) 15 gm Q15M PRN BUCCAL DECREASED GLUCOSE; Start 07/01/18 at 00:30 Aspirin (Aspirin) 162 mg DAILY PEG Last administered on 07/04/18 09:04; Admin Dose 162 MG; Start 07/01/18 at 12:30 Vancomycin HCl (Vanco Iv Per Pharmacy) VANCOMYCIN PER PHARMACY PER PROTOCOL XX ; Start 07/01/18 at 15:00 Piperacillin Sod/ Tazobactam Sod 100 ml @ 200 mls/hr Q8 IVPB Last administered on 07/04/18at 05:31; Admin Dose 200 MLS/HR; Start 07/01/18 at 15:40 Vancomycin HCl 1.25 gm/Sodium Chloride 250 ml @ 83.333 mls/ hr Q12H IVPB Last administered on 07/04/18at 05:32; Admin Dose 83.333 MLS/HR; Start 07/01/18 at 17:00 IV Flush (NS 10 ml) 10 ml PRN PRN IV FLUSH LINE; Start 07/02/18 at 14:00 Furosemide (Lasix) 20 mg DAILY IV Last administered on 07/04/18at 09:05; Admin Dose 20 MG; Start 07/04/18 at 09:00 Benazepril HCl (Lotensin) 10 mg BID PO Last administered on 07/04/18at 09:04; Admin Dose 10 MG; Start 07/03/18 at 21:00 MER CHRIS Jul 04, 2018 10:56
--- NOTE | 2018-07-04 11:38 | PN ---
Date/Time of Note Date/Time of Note DATE: 07/04/18 TIME: 11:37 Assessment/Plan VTE Prophylaxis Risk score (from Ns)>0 risk: 9 SCD applied (from Ns): Yes Pharmacological prophylaxis: LMWH Lines/Catheters IV [facility] Type (from [facility]): PICC Line Central line still needed: Yes Urinary Cath still in place: Yes Reason Cath still needed: skin wounds contaminated by urine Assessment/Plan Hospital Course -Sepsis most likely secondary to HCAP and urinary tract infection, f/up on urine and blood cultures. Continue broad-spectrum antibiotics. Dr. Hodge is following in infection disease consultation. -Septic shock, continue IVF, pressors, ICU care. -ARF, continue ventilatory support. Dr Mitchell is following in pulmonology consultation. -Chronic tracheostomy -Dysphagia with PEG -Coronary artery disease status post stent placement to LAD and RCA. Dr. Vincent is following in cardiology consultation. -Cardiomyopathy with ejection fraction of 25-30% -Hypertension -Diabetes -Morbid obesity -Chronic encephalopathy Result Diagram: 07/03/18 1117 07/03/18 0430 Results 24hrs Laboratory Tests Test 07/03/18 12:26 07/03/18 18:41 07/03/18 23:23 07/04/18 00:49 Bedside Glucose 118 98 79 99 Test 07/04/18 05:27 07/04/18 09:40 Bedside Glucose 85 107 Subjective 24 Hr Interval Summary Free Text/Dictation Patient remain sedated, on vent via trach Exam/Review of Systems Vital Signs Vitals Vital Signs Date Temp Pulse Resp B/P (MAP) Pulse Ox O2 O2 Flow FiO2 Time Delivery Rate 07/04/18 61 17 112/60 100 Mechanical 10:30 (77) Ventilator 07/04/18 40 08:00 07/04/18 98.2 08:00 Intake and Output 07/03/18 07/03/18 07/04/18 1515:00 23:00 07:00 IntakeIntake Total 1780 ml 1780 ml 1540 ml OutputOutput Total 1550 ml 1465 ml 610 ml BalanceBalance 230 ml 315 ml 930 ml Exam Constitutional: well developed Head: normocephalic, atraumatic Neck: supple Respiratory: diminished breath sounds Cardiovascular: regular rate and rhythm Gastrointestinal: soft, non-tender Extremities: normal pulses Medications Medications Current Medications Norepinephrine 250 ml @ 1.875 mls/ hr TITRATE IV Last administered on at 06:12; Admin Dose 1.875 MLS/HR; Start 06/30/18 at 17:00 Potassium Chloride/Sodium Chloride 1,000 ml @ 100 mls/hr Q10H IV Last administered on 07/04/18at 10:15; Admin Dose 100 MLS/HR; Start 06/30/18 at 23:45 IV Flush (NS 3 ml) 3 ml PER PROTOCOL IV ; Start 07/01/18 at 00:00 Ondansetron HCl (Zofran Inj) 4 mg Q6H PRN IV NAUSEA AND/OR VOMITING; Start 07/01/18 at 00:00 Albuterol (Proventil 0.083% (Neb)) 2.5 mg Q2H RESP THERAPY PRN NEB SHORTNESS OF BREATH; Start 07/01/18 at 00:00 Ipratropium [place] (Atrovent 0.02% (Neb)) 0.5 mg Q2H RESP THERAPY PRN NEB SHORTNESS OF BREATH; Start 07/01/18 at 00:00 Acetaminophen (Tylenol Liquid) 650 mg Q6H PRN PO PAIN LEVEL 1-3 OR FEVER; Start 07/01/18 at 00:00 Morphine Sulfate (morphine) 2 mg Q4H PRN IV PAIN LEVEL 7-10; Start 07/01/18 at 00:00 Lorazepam (Ativan) 1 mg Q2H PRN IV ANXIETY Last administered on 07/03/18at 23:31; Admin Dose 1 MG; Start 07/01/18 at 00:00 Docusate Sodium (Colace) 100 mg Q12H PRN PO CONSTIPATION; Start 07/01/18 at 00:00 Magnesium Hydroxide (Milk Of Mag) 30 ml DAILY PRN PO CONSTIPATION; Start 07/01/18 at 00:00 Pantoprazole (Protonix Iv) 40 mg DAILY@06 IV Last administered on 07/04/18at 05:32; Admin Dose 40 MG; Start 07/01/18 at 06:00 Enoxaparin Sodium (Lovenox) 30 mg DAILY SC Last administered on 07/04/18at 09:04; Admin Dose 30 MG; Start 07/01/18 at 09:00 Atorvastatin Calcium (Lipitor) 80 mg QHS GTB Last administered on 07/03/18at 21:11; Admin Dose 80 MG; Start 07/01/18 at 21:00 Bisacodyl (Dulcolax Supp) 10 mg Q24H PRN [place] NEEDED; Start 07/01/18 at 00:00 Carvedilol (Coreg) 3.125 mg BID GTB Last administered on 07/04/18at 09:05; Admin Dose 3.125 MG; Start 07/01/18 at 09:00 Insulin Human NPH (Humulin N) 28 unit Q8H SC Last administered on 07/04/18at 09:43; Admin Dose 28 UNIT; Start 07/01/18 at 00:00 Valproate Sodium (Depakene Liquid Cup) 500 mg Q8H GTB Last administered on 07/04/18at 09:04; Admin Dose 500 MG; Start 07/01/18 at 00:00 Insulin Aspart (Novolog Insulin Pen) NOVOLOG *MILD* ALGORITHM Q6 SC Last administered on 07/02/18at 17:58; Admin Dose 1 UNIT; Start 07/01/18 at 00:00 Miscellaneous Information 1 ea NOTE XX ; Start 07/01/18 at 00:30 Glucose (Glutose) 15 gm Q15M PRN PO DECREASED GLUCOSE; Start 07/01/18 at 00:30 Glucose (Glutose) 22.5 gm Q15M PRN PO DECREASED GLUCOSE; Start 07/01/18 at 00:30 Dextrose (D50w Syringe) 25 ml Q15M PRN IV DECREASED GLUCOSE; Start 07/01/18 at 00:30 Dextrose (D50w Syringe) 50 ml Q15M PRN IV DECREASED GLUCOSE; Start 07/01/18 at 00:30 Glucagon (Glucagen) 1 mg Q15M PRN IM DECREASED GLUCOSE; Start 07/01/18 at 00:30 Glucose (Glutose) 15 gm Q15M PRN BUCCAL DECREASED GLUCOSE; Start 07/01/18 at 00:30 Aspirin (Aspirin) 162 mg DAILY PEG Last administered on 07/04/18at 09:04; Admin Dose 162 MG; Start 07/01/18 at 12:30 Vancomycin HCl (Vanco Iv Per Pharmacy) VANCOMYCIN PER PHARMACY PER PROTOCOL XX ; Start 07/01/18 at 15:00 Piperacillin Sod/ Tazobactam Sod 100 ml @ 200 mls/hr Q8 IVPB Last administered on 07/04/18at 05:31; Admin Dose 200 MLS/HR; Start 07/01/18 at 15:40 Vancomycin HCl 1.25 gm/Sodium Chloride 250 ml @ 83.333 mls/ hr Q12H IVPB Last administered on 07/04/18at 05:32; Admin Dose 83.333 MLS/HR; Start 07/01/18 at 17:00 IV Flush (NS 10 ml) 10 ml PRN PRN IV FLUSH LINE; Start 07/02/18 at 14:00 Furosemide (Lasix) 20 mg DAILY IV Last administered on 07/04/18at 09:05; Admin Dose 20 MG; Start 07/04/18 at 09:00 Benazepril HCl (Lotensin) 10 mg BID PO Last administered on 07/04/18at 09:04; Admin Dose 10 MG; Start 07/03/18 at 21:00 PARAS MURILLO Jul 04, 2018 11:38
--- NOTE | 2018-07-04 12:44 | CONS ---
Date/Time of Note Date/Time of Note DATE: 07/04/18 TIME: 12:43 Assessment/Plan Assessment/Plan Hospital Course no acute changes patient is noncommunicative in no distress afebrile no labs this morning Microbiology: Urine culture grew Enterobacter erogenous, blood cultures negative Indwelling's: Trach PEG Nelson left upper extremity PICC line Antimicrobials: Vancomycin, Zosyn Physical examination: This is a chronically ill-appearing middle-aged man who is nonresponsive the patient is in no distress head with evidence of right-sided cranial bone removal, sclera nonicteric neck is supple tracheostomy present ches t rise symmetrical breath sounds clear, diminished bases. Heart: S1-S2. Abdomen soft, bowel sounds present. Extremities mottled without edema Assessment: 1. Severe sepsis, status post shock 2. Healthcare associated pneumonia, possibly aspirated 3. Recurrent UTI 4. Chronic respiratory failure 5. History of intracranial hemorrhage status post craniotomy 6. Cardiomyopathy and history of PTCA 7. Diabetes and hypertension Plan: Remains unchanged, will change antibiotics to cefepime, follow labs and chest x-ray in a.m., cardiology and pulmonary recommendations Result Diagram: 07/03/18 1117 07/03/18 0430 Results 24hrs Laboratory Tests Test 07/03/18 18:41 07/03/18 23:23 07/04/18 00:49 07/04/18 05:27 Bedside Glucose 98 79 99 85 Test 07/04/18 09:40 07/04/18 12:23 Bedside Glucose 107 111 Consultation Date/Type/Reason Admit Date/Time Jun 30, 2018 at 16:55 Initial Consult Date Type of Consult id Requesting Provider: NIA DOMINGO MD Exam/Review of Systems Vital Signs Vitals Vital Signs Date Temp Pulse Resp B/P (MAP) Pulse Ox O2 O2 Flow FiO2 Time Delivery Rate 07/04/18 57 11 165/74 100 Mechanical 11:30 (104) Ventilator 07/04/18 40 08:00 07/04/18 98.2 08:00 Intake and Output 07/03/18 07/03/18 07/04/18 1515:00 23:00 07:00 IntakeIntake Total 1780 ml 1780 ml 1540 ml OutputOutput Total 1550 ml 1465 ml 610 ml BalanceBalance 230 ml 315 ml 930 ml Medications Medications Current Medications Norepinephrine 250 ml @ 1.875 mls/ hr TITRATE IV Last administered on 07/02/18at 06:12; Admin Dose 1.875 MLS/HR; Start 06/30/18 at 17:00 Potassium Chloride/Sodium Chloride 1,000 ml @ 100 mls/hr Q10H IV Last administered on 07/04/18at 10:15; Admin Dose 100 MLS/HR; Start 06/30/18 at 23:45 IV Flush (NS 3 ml) 3 ml PER PROTOCOL IV ; Start 07/01/18 at 00:00 Ondansetron HCl (Zofran Inj) 4 mg Q6H PRN IV NAUSEA AND/OR VOMITING; Start 07/01/18 at 00:00 Albuterol (Proventil 0.083% (Neb)) 2.5 mg Q2H RESP THERAPY PRN NEB SHORTNESS OF BREATH; Start 07/01/18 at 00:00 Ipratropium [place] (Atrovent 0.02% (Neb)) 0.5 mg Q2H RESP THERAPY PRN NEB SHORTNESS OF BREATH; Start 07/01/18 at 00:00 Acetaminophen (Tylenol Liquid) 650 mg Q6H PRN PO PAIN LEVEL 1-3 OR FEVER; Start 07/01/18 at 00:00 Morphine Sulfate (morphine) 2 mg Q4H PRN IV PAIN LEVEL 7-10; Start 07/01/18 at 00:00 Lorazepam (Ativan) 1 mg Q2H PRN IV ANXIETY Last administered on 07/03/18at 23:31; Admin Dose 1 MG; Start 07/01/18 at 00:00 Docusate Sodium (Colace) 100 mg Q12H PRN PO CONSTIPATION; Start 07/01/18 at 00:00 Magnesium Hydroxide (Milk Of Mag) 30 ml DAILY PRN PO CONSTIPATION; Start at 00:00 Pantoprazole (Protonix Iv) 40 mg DAILY@06 IV Last administered on 07/04/18at 05:32; Admin Dose 40 MG; Start 07/01/18 at 06:00 Enoxaparin Sodium (Lovenox) 30 mg DAILY SC Last administered on 07/04/18at 09:04; Admin Dose 30 MG; Start 07/01/18 at 09:00 Atorvastatin Calcium (Lipitor) 80 mg QHS GTB Last administered on 07/03/18at 21:11; Admin Dose 80 MG; Start 07/01/18 at 21:00 Bisacodyl (Dulcolax Supp) 10 mg Q24H PRN [place] NEEDED; Start 07/01/18 at 00:00 Carvedilol (Coreg) 3.125 mg BID GTB Last administered on 07/04/18 09:05; Admin Dose 3.125 MG; Start 07/01/18 at 09:00 Insulin Human NPH (Humulin N) 28 unit Q8H SC Last administered on 07/04/18at 09:43; Admin Dose 28 UNIT; Start 07/01/18 at 00:00 Valproate Sodium (Depakene Liquid Cup) 500 mg Q8H GTB Last administered on 07/04/18 09:04; Admin Dose 500 MG; Start 07/01/18 at 00:00 Insulin Aspart (Novolog Insulin Pen) NOVOLOG *MILD* ALGORITHM Q6 SC Last administered on 07/02/18at 17:58; Admin Dose 1 UNIT; Start 07/01/18 at 00:00 Miscellaneous Information 1 ea NOTE XX ; Start 07/01/18 at 00:30 Glucose (Glutose) 15 gm Q15M PRN PO DECREASED GLUCOSE; Start 07/01/18 at 00:30 Glucose (Glutose) 22.5 gm Q15M PRN PO DECREASED GLUCOSE; Start 07/01/18 at 00:30 Dextrose (D50w Syringe) 25 ml Q15M PRN IV DECREASED GLUCOSE; Start 07/01/18 at 00:30 Dextrose (D50w Syringe) 50 ml Q15M PRN IV DECREASED GLUCOSE; Start 07/01/18 at 00:30 Glucagon (Glucagen) 1 mg Q15M PRN IM DECREASED GLUCOSE; Start 07/01/18 at 00:30 Glucose (Glutose) 15 gm Q15M PRN BUCCAL DECREASED GLUCOSE; Start 07/01/18 at 00:30 Aspirin (Aspirin) 162 mg DAILY PEG Last administered on 07/04/18at 09:04; Admin Dose 162 MG; Start 07/01/18 at 12:30 Vancomycin HCl (Vanco Iv Per Pharmacy) VANCOMYCIN PER PHARMACY PER PROTOCOL XX ; Start 07/01/18 at 15:00 Piperacillin Sod/ Tazobactam Sod 100 ml @ 200 mls/hr Q8 IVPB Last administered on 07/04/18at 05:31; Admin Dose 200 MLS/HR; Start 07/01/18 at 15:40 Vancomycin HCl 1.25 gm/Sodium Chloride 250 ml @ 83.333 mls/ hr Q12H IVPB Last administered on 07/04/18at 05:32; Admin Dose 83.333 MLS/HR; Start 07/01/18 at 17:00 IV Flush (NS 10 ml) 10 ml PRN PRN IV FLUSH LINE; Start 07/02/18 at 14:00 Furosemide (Lasix) 20 mg DAILY IV Last administered on 07/04/18at 09:05; Admin Dose 20 MG; Start 07/04/18 at 09:00 Benazepril HCl (Lotensin) 10 mg BID PO Last administered on 07/04/18at 09:04; Admin Dose 10 MG; Start 07/03/18 at 21:00 SANDER AMADOR NP Jul 04, 2018 12:44
--- NOTE | 2018-07-04 14:24 | CONS ---
Date/Time of Note Date/Time of Note DATE: 07/04/18 TIME: 14:19 Assessment/Plan Assessment/Plan Hospital Course IMPRESSION: 1. Hypotension/shock state and likely septic.- now off levophed 2. Cardiomyopathy with decreased left ventricular ejection fraction, last known to be 30% by echo in 01/2018.-neg trop x 3 3. History of prior percutaneous transluminal coronary angioplasty and stent placements, most recently to LAD in 2014. 4. Urinary tract infection, likely urosepsis. 5. Diabetes mellitus. 6. Chronic respiratory failure, status post tracheostomy. 7. Dysphagia, status post G-tube. 8. Chronic encephalopathy. 9. Leukocytosis. 10. History of hemorrhagic cerebrovascular accident. 11.NSVT Recc: -OK to tele -Continue BB/ACEI and follow BP closely -Follow volume status clsoely -F/U cx data and continue cefepime -Gentle lasix diuresis -Continue asa Result Diagram: 07/03/18 1117 07/03/18 0430 Results 24hrs Laboratory Tests Test 07/03/18 18:41 07/03/18 23:23 07/04/18 00:49 07/04/18 05:27 Bedside Glucose 98 79 99 85 Test 07/04/18 09:40 07/04/18 12:23 Bedside Glucose 107 111 Consultation Date/Type/Reason Admit Date/Time Jun 30, 2018 at 16:55 Initial Consult Date 06/30/18 Type of Consult cardiology Reason for Consultation CHF Requesting Provider: NIA DOMINGO MD Exam/Review of Systems Vital Signs Vitals Vital Signs Date Temp Pulse Resp B/P (MAP) Pulse Ox O2 O2 Flow FiO2 Time Delivery Rate 07/04/18 64 17 100 40 13:20 07/04/18 165/74 Mechanical 11:30 (104) Ventilator 07/04/18 98.2 08:00 Intake and Output 07/03/18 07/03/18 07/04/18 1515:00 23:00 07:00 IntakeIntake Total 1780 ml 1780 ml 1540 ml OutputOutput Total 1550 ml 1465 ml 610 ml BalanceBalance 230 ml 315 ml 930 ml Exam Review of Systems: CONSTITUTIONAL: No fevers, chills. PULMONARY: No sob CARDIOVASCULAR: No chest pain/palpitations GASTROINTESTINAL: No nausea/vomiting. GENITOURINARY: No hematuria/dysuria. MUSCULOSKELETAL: No myagias/arthalgias. PSYCHIATRIC: The patient denies depression. NEUROLOGIC: encephalopathic Constitutional: alert, oriented Psych: no complaints Head: normocephalic ENMT: mucosa pink and moist Neck: supple, jvd (9 cm water) Respiratory: diminished breath sounds (at bases/B) Cardiovascular: regular rate and rhythm Gastrointestinal: soft, non-tender Musculoskeletal: muscle tone (normal) Extremities: edema (none) Neurological: other (No focal deficits) Medications Medications Current Medications Potassium Chloride/Sodium Chloride 1,000 ml @ 100 mls/hr Q10H IV Last administered on 07/04/18at 10:15; Admin Dose 100 MLS/HR; Start 06/30/18 at 23:45 IV Flush (NS 3 ml) 3 ml PER PROTOCOL IV ; Start 07/01/18 at 00:00 Ondansetron HCl (Zofran Inj) 4 mg Q6H PRN IV NAUSEA AND/OR VOMITING; Start 07/01/18 at 00:00 Albuterol (Proventil 0.083% (Neb)) 2.5 mg Q2H RESP THERAPY PRN NEB SHORTNESS OF BREATH; Start 07/01/18 at 00:00 Ipratropium [place] (Atrovent 0.02% (Neb)) 0.5 mg Q2H RESP THERAPY PRN NEB SHORTNESS OF BREATH; Start 07/01/18 at 00:00 Acetaminophen (Tylenol Liquid) 650 mg Q6H PRN PO PAIN LEVEL 1-3 OR FEVER; Start 07/01/18 at 00:00 Morphine Sulfate (morphine) 2 mg Q4H PRN IV PAIN LEVEL 7-10; Start 07/01/18 at 00:00 Lorazepam (Ativan) 1 mg Q2H PRN IV ANXIETY Last administered on 07/03/18at 23:31; Admin Dose 1 MG; Start 07/01/18 at 00:00 Docusate Sodium (Colace) 100 mg Q12H PRN PO CONSTIPATION; Start 07/01/18 at 00:00 Magnesium Hydroxide (Milk Of Mag) 30 ml DAILY PRN PO CONSTIPATION; Start 07/01/18 at 00:00 Pantoprazole (Protonix Iv) 40 mg DAILY@06 IV Last administered on 07/04/18at 05:32; Admin Dose 40 MG; Start 07/01/18 at 06:00 Enoxaparin Sodium (Lovenox) 30 mg DAILY SC Last administered on 07/04/18at 09:04; Admin Dose 30 MG; Start 07/01/18 at 09:00 Atorvastatin Calcium (Lipitor) 80 mg QHS GTB Last administered on 07/03/18at 21:11; Admin Dose 80 MG; Start 07/01/18 at 21:00 Bisacodyl (Dulcolax Supp) 10 mg Q24H PRN [place] NEEDED; Start 07/01/18 at 00:00 Carvedilol (Coreg) 3.125 mg BID GTB Last administered on 07/04/18at 09:05; Admin Dose 3.125 MG; Start 07/01/18 at 09:00 Insulin Human NPH (Humulin N) 28 unit Q8H SC Last administered on 07/04/18at 0 9:43; Admin Dose 28 UNIT; Start 07/01/18 at 00:00 Valproate Sodium (Depakene Liquid Cup) 500 mg Q8H GTB Last administered on 07/04/18at 09:04; Admin Dose 500 MG; Start 07/01/18 at 00:00 Insulin Aspart (Novolog Insulin Pen) NOVOLOG *MILD* ALGORITHM Q6 SC Last administered on 07/02/18at 17:58; Admin Dose 1 UNIT; Start 07/01/18 at 00:00 Miscellaneous Information 1 ea NOTE XX ; Start 07/01/18 at 00:30 Glucose (Glutose) 15 gm Q15M PRN PO DECREASED GLUCOSE; Start 07/01/18 at 00:30 Glucose (Glutose) 22.5 gm Q15M PRN PO DECREASED GLUCOSE; Start 07/01/18 at 00:30 Dextrose (D50w Syringe) 25 ml Q15M PRN IV DECREASED GLUCOSE; Start 07/01/18 at 00:30 Dextrose (D50w Syringe) 50 ml Q15M PRN IV DECREASED GLUCOSE; Start 07/01/18 at 00:30 Glucagon (Glucagen) 1 mg Q15M PRN IM DECREASED GLUCOSE; Start 07/01/18 at 00:30 Glucose (Glutose) 15 gm Q15M PRN BUCCAL DECREASED GLUCOSE; Start 07/01/18 at 00:30 Aspirin (Aspirin) 162 mg DAILY PEG Last administered on 07/04/18at 09:04; Admin Dose 162 MG; Start 07/01/18 at 12:30 IV Flush (NS 10 ml) 10 ml PRN PRN IV FLUSH LINE; Start 07/02/18 at 14:00 Furosemide (Lasix) 20 mg DAILY IV Last administered on 07/04/18at 09:05; Admin Dose 20 MG; Start 07/04/18 at 09:00 Benazepril HCl (Lotensin) 10 mg BID PO Last administered on 07/04/18at 09:04; Admin Dose 10 MG; Start 07/03/18 at 21:00 Cefepime HCl 50 ml @ 100 mls/hr Q12 IVPB ; Start 07/04/18 at 21:00 MAE ROSALES Jul 04, 2018 14:24
[2018-07-04] MEDS: ATORVASTATIN 80 MG TAB GTB SCH (22:12)
[2018-07-04] MEDS: CEFEPIME 1GM/50 ML (PMX) 50 ML IVPB SCH (22:13)
[2018-07-05] VITALS (33 sets, daily range): BP systolic 122–176; BP diastolic 68–87; PULSE 44–126; RESP 14–35
[2018-07-05] MEDS ORDERED: NPH, HUMAN INSULIN ISOPHANE 3ML VIAL SC ONE
[2018-07-05] MEDS: VALPROIC ACID LIQUID CUP 250 MG/5 ML CUP GTB SCH ×3 (01:05→16:39)
[2018-07-05] MEDS: INSULIN ASPART [NOVOLOG] 3 ML PEN SC SCH ×4 (06:00→18:00)
[2018-07-05] MEDS: PANTOPRAZOLE 40 MG INJ IV SCH (06:12)
[2018-07-05] MEDS: NPH, HUMAN INSULIN ISOPHANE 3ML VIAL SC SCH ×3 (08:00→16:43)
[2018-07-05] MEDS: CEFEPIME 1GM/50 ML (PMX) 50 ML IVPB SCH ×2 (08:52→22:15)
[2018-07-05] MEDS: FUROSEMIDE 20 MG INJ IV SCH (08:52)
[2018-07-05] MEDS: ASPIRIN 81 MG TAB PEG SCH (08:53)
[2018-07-05] MEDS: BENAZEPRIL 10 MG TAB PO SCH ×2 (08:53→20:32)
[2018-07-05] MEDS: ENOXAPARIN 30 MG/0.3 ML SYG SC SCH (09:16)
[2018-07-05] MEDS: NS + KCL 20 MEQ 1,000 ML IV SCH ×2 (10:15→13:21)
--- NOTE | 2018-07-05 11:01 | CONS ---
Date/Time of Note Date/Time of Note DATE: 07/05/18 TIME: 10:59 Assessment/Plan Assessment/Plan Hospital Course IMPRESSION: 1. Hypotension/shock state and likely septic.- now off levophed 2. Cardiomyopathy with decreased left ventricular ejection fraction, last known to be 30% by echo in 01/2018.-neg trop x 3 3. History of prior percutaneous transluminal coronary angioplasty and stent placements, most recently to LAD in 2014. 4. Urinary tract infection, likely urosepsis. 5. Diabetes mellitus. 6. Chronic respiratory failure, status post tracheostomy. 7. Dysphagia, status post G-tube. 8. Chronic encephalopathy. 9. Leukocytosis. 10. History of hemorrhagic cerebrovascular accident. 11.NSVT Recc: -Now on tele -Continue BB/ACEI and follow BP closely -Follow volume status clsoely -F/U cx data and continue cefepime -Continue gentle lasix diuresis -Continue asa Result Diagram: 07/03/18 1117 07/03/18 0430 Results 24hrs Laboratory Tests Test 07/04/18 12:23 07/04/18 16:44 07/04/18 22:49 07/05/18 00:42 Bedside Glucose 111 108 71 73 Test 07/05/18 06:17 07/05/18 08:46 Bedside Glucose 71 96 Consultation Date/Type/Reason Admit Date/Time Jun 30, 2018 at 16:55 Initial Consult Date 06/30/18 Type of Consult cardiology Reason for Consultation cardiomyopathy Requesting Provider: NIA DOMINGO MD Exam/Review of Systems Vital Signs Vitals Vital Signs Date Temp Pulse Resp B/P (MAP) Pulse Ox O2 O2 Flow FiO2 Time Delivery Rate 07/05/18 60 16 99 30 09:44 07/05/18 97.9 131/71 07:58 (91) 07/04/18 Mechanical 20:00 Ventilator Intake and Output 07/04/18 07/04/18 07/05/18 1515:00 23:00 07:00 IntakeIntake Total 1660 ml 570 ml 160 ml OutputOutput Total 1425 ml 425 ml 1250 ml BalanceBalance 235 ml 145 ml -1090 ml Exam Review of Systems: CONSTITUTIONAL: No fevers, chills. PULMONARY: No sob CARDIOVASCULAR: No chest pain/palpitations GASTROINTESTINAL: No nausea/vomiting. GENITOURINARY: No hematuria/dysuria. MUSCULOSKELETAL: No myagias/arthalgias. PSYCHIATRIC: The patient denies depression. NEUROLOGIC: No weakness Constitutional: other (encephalopathic) Psych: no complaints Head: normocephalic ENMT: mucosa pink and moist Neck: supple, jvd (9 cm water), other (trached) Respiratory: diminished breath sounds (at bases/B) Cardiovascular: regular rate and rhythm Gastrointestinal: soft, non-tender Musculoskeletal: muscle tone (normal) Extremities: edema (none) Neurological: other (No focal deficits) Medications Medications Current Medications Potassium Chloride/Sodium Chloride 1,000 ml @ 100 mls/hr Q10H IV Last administered on 07/05/18at 10:15; Admin Dose 100 MLS/HR; Start 06/30/18 at 23:45 IV Flush (NS 3 ml) 3 ml PER PROTOCOL IV ; Start 07/01/18 at 00:00 Ondansetron HCl (Zofran Inj) 4 mg Q6H PRN IV NAUSEA AND/OR VOMITING; Start 07/01/18 at 00:00 Albuterol (Proventil 0.083% (Neb)) 2.5 mg Q2H RESP THERAPY PRN NEB SHORTNESS OF BREATH; Start 07/01/18 at 00:00 Ipratropium [place] (Atrovent 0.02% (Neb)) 0.5 mg Q2H RESP THERAPY PRN NEB SHORTNESS OF BREATH; Start 07/01/18 at 00:00 Acetaminophen (Tylenol Liquid) 650 mg Q6H PRN PO PAIN LEVEL 1-3 OR FEVER; Start 07/01/18 at 00:00 Morphine Sulfate (morphine) 2 mg Q4H PRN IV PAIN LEVEL 7-10; Start 07/01/18 at 00:00 Lorazepam (Ativan) 1 mg Q2H PRN IV ANXIETY Last administered on 07/03/18at 23:31; Admin Dose 1 MG; Start 07/01/18 at 00:00 Docusate Sodium (Colace) 100 mg Q12H PRN PO CONSTIPATION; Start 07/01/18 at 00:00 Magnesium Hydroxide (Milk Of Mag) 30 ml DAILY PRN PO CONSTIPATION; Start 07/01/18 at 00:00 Pantoprazole (Protonix Iv) 40 mg DAILY@06 IV Last administered on 07/05/18at 06:12; Admin Dose 40 MG; Start 07/01/18 at 06:00 Enoxaparin Sodium (Lovenox) 30 mg DAILY SC Last administered on 07/05/18at 09:16; Admin Dose 30 MG; Start 07/01/18 at 09:00 Atorvastatin Calcium (Lipitor) 80 mg QHS GTB Last administered on 07/04/18at 22:12; Admin Dose 80 MG; Start 07/01/18 at 21:00 Bisacodyl (Dulcolax Supp) 10 mg Q24H PRN [place] NEEDED; Start 07/01/18 at 00:00 Carvedilol (Coreg) 3.125 mg BID GTB Last administered on 07/05/18at 08:53; Admin Dose 3.125 MG; Start 07/01/18 at 09:00 Insulin Human NPH (Humulin N) 28 unit Q8H SC Last administered on 07/04/18at 17:01; Admin Dose 28 UNIT; Start 07/01/18 at 00:00 Valproate Sodium (Depakene Liquid Cup) 500 mg Q8H GTB Last administered on 07/05/18at 08:51; Admin Dose 500 MG; Start 07/01/18 at 00:00 Insulin Aspart (Novolog Insulin Pen) NOVOLOG *MILD* ALGORITHM Q6 SC Last administered on 07/02/18at 17:58; Admin Dose 1 UNIT; Start 07/01/18 at 00:00 Miscellaneous Information 1 ea NOTE XX ; Start 07/01/18 at 00:30 Glucose (Glutose) 15 gm Q15M PRN PO DECREASED GLUCOSE; Start 07/01/18 at 00:30 Glucose (Glutose) 22.5 gm Q15M PRN PO DECREASED GLUCOSE; Start 07/01/18 at 0 0:30 Dextrose (D50w Syringe) 25 ml Q15M PRN IV DECREASED GLUCOSE; Start 07/01/18 at 00:30 Dextrose (D50w Syringe) 50 ml Q15M PRN IV DECREASED GLUCOSE; Start 07/01/18 at 00:30 Glucagon (Glucagen) 1 mg Q15M PRN IM DECREASED GLUCOSE; Start 07/01/18 at 00:30 Glucose (Glutose) 15 gm Q15M PRN BUCCAL DECREASED GLUCOSE; Start 07/01/18 at 00:30 Aspirin (Aspirin) 162 mg DAILY PEG Last administered on 07/05/18 08:53; Admin Dose 162 MG; Start 07/01/18 at 12:30 IV Flush (NS 10 ml) 10 ml PRN PRN IV FLUSH LINE; Start 07/02/18 at 14:00 Furosemide (Lasix) 20 mg DAILY IV Last administered on 07/05/18 08:52; Admin Dose 20 MG; Start 07/04/18 at 09:00 Benazepril HCl (Lotensin) 10 mg BID PO Last administered on 07/05/18 08:53; Admin Dose 10 MG; Start 07/03/18 at 21:00 Cefepime HCl 50 ml @ 100 mls/hr Q12 IVPB Last administered on 07/05/18 08:52; Admin Dose 100 MLS/HR; Start 07/04/18 at 21:00 MAE ROSALES Jul 05, 2018 11:01
--- NOTE | 2018-07-05 11:10 | CONS ---
Date/Time of Note Date/Time of Note DATE: 07/05/18 TIME: 11:07 Assessment/Plan Assessment/Plan Assessment/Plan Ventilator setting; AC of 16, tidal volume 500, PEEP of 5, 30% FiO2. Assessment and recommendations; 1. Patient with history of chronic encephalopathy status post craniotomy admitted for sepsis from UTI. Currently on appropriate antimicrobial regimen. Clinically improving. 2. History of hypertension. 3. Underlying cardiomyopathy with mild CHF. 4. Anemia. 5. Diabetes. Continue current supportive care. Consider discharge to [facility]. Overall prognosis remains poor. Result Diagram: 07/03/18 1117 07/03/18 0430 Results 24hrs Laboratory Tests Test 07/04/18 12:23 07/04/18 16:44 07/04/18 22:49 07/05/18 00:42 Bedside Glucose 111 108 71 73 Test 07/05/18 06:17 07/05/18 08:46 Bedside Glucose 71 96 Consultation Date/Type/Reason Admit Date/Time Jun 30, 2018 at 16:55 Initial Consult Date Type of Consult Pulmonary/critical care Requesting Provider: NIA DOMINGO MD 24 HR Interval Summary Free Text/Dictation Patient's condition remains stable. Has been transferred out of ICU to medical floor. Patient has remained hemodynamically stable. General exam; middle-aged male, on ventilator via tracheostomy, unresponsive, currently in no distress. Exam/Review of Systems Vital Signs Vitals Vital Signs Date Temp Pulse Resp B/P (MAP) Pulse Ox O2 O2 Flow FiO2 Time Delivery Rate 07/05/18 60 16 99 30 09:44 07/05/18 97.9 131/71 07:58 (91) 07/04/18 Mechanical 20:00 Ventilator Intake and Output 07/04/18 07/04/18 07/05/18 1515:00 23:00 07:00 IntakeIntake Total 1660 ml 570 ml 160 ml OutputOutput Total 1425 ml 425 ml 1250 ml BalanceBalance 235 ml 145 ml -1090 ml Exam H EENT exam; supple neck, no JVD. No lymphadenopathy. Midline trachea. No thyromegaly. Tracheostomy in place. Patient has fair dentition. There are multiple well-healed craniotomy scars. Most prominent in the right parietal area. Chest exam; diminished but clear breath sounds. S1-S2 audible, no murmurs. Regular rhythm. Abdomen exam; soft, protuberant. No organomegaly. G-tube in place. Bowel sounds audible. Extremity exam; no peripheral edema or clubbing. 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 Medications Medications Current Medications Potassium Chloride/Sodium Chloride 1,000 ml @ 100 mls/hr Q10H IV Last administered on 07/05/18at 10:15; Admin Dose 100 MLS/HR; Start 06/30/18 at 23:45 IV Flush (NS 3 ml) 3 ml PER PROTOCOL IV ; Start 07/01/18 at 00:00 Ondansetron HCl (Zofran Inj) 4 mg Q6H PRN IV NAUSEA AND/OR VOMITING; Start 07/01/18 at 00:00 Albuterol (Proventil 0.083% (Neb)) 2.5 mg Q2H RESP THERAPY PRN NEB SHORTNESS OF BREATH; Start 07/01/18 at 00:00 Ipratropium [place] (Atrovent 0.02% (Neb)) 0.5 mg Q2H RESP THERAPY PRN NEB SHORTNESS OF BREATH; Start 07/01/18 at 00:00 Acetaminophen (Tylenol Liquid) 650 mg Q6H PRN PO PAIN LEVEL 1-3 OR FEVER; Start 07/01/18 at 00:00 Morphine Sulfate (morphine) 2 mg Q4H PRN IV PAIN LEVEL 7-10; Start 07/01/18 at 00:00 Lorazepam (Ativan) 1 mg Q2H PRN IV ANXIETY Last administered on 07/03/18at 23:31; Admin Dose 1 MG; Start 07/01/18 at 00:00 Docusate Sodium (Colace) 100 mg Q12H PRN PO CONSTIPATION; Start 07/01/18 at 00:00 Magnesium Hydroxide (Milk Of Mag) 30 ml DAILY PRN PO CONSTIPATION; Start 07/01/18 at 00:00 Pantoprazole (Protonix Iv) 40 mg DAILY@06 IV Last administered on 07/05/18at 06:12; Admin Dose 40 MG; Start 07/01/18 at 06:00 Enoxaparin Sodium (Lovenox) 30 mg DAILY SC Last administered on 07/05/18at 09:16; Admin Dose 30 MG; Start 07/01/18 at 09:00 Atorvastatin Calcium (Lipitor) 80 mg QHS GTB Last administered on 07/04/18at 22:12; Admin Dose 80 MG; Start 07/01/18 at 21:00 Bisacodyl (Dulcolax Supp) 10 mg Q24H PRN [place] NEEDED; Start 07/01/18 at 00:00 Carvedilol (Coreg) 3.125 mg BID GTB Last administered on 07/05/18 08:53; Admin Dose 3.125 MG; Start 07/01/18 at 09:00 Insulin Human NPH (Humulin N) 28 unit Q8H SC Last administered on 07/04/18at 17: 01; Admin Dose 28 UNIT; Start 07/01/18 at 00:00 Valproate Sodium (Depakene Liquid Cup) 500 mg Q8H GTB Last administered on 07/05/18 08:51; Admin Dose 500 MG; Start 07/01/18 at 00:00 Insulin Aspart (Novolog Insulin Pen) NOVOLOG *MILD* ALGORITHM Q6 SC Last administered on 07/02/18at 17:58; Admin Dose 1 UNIT; Start 07/01/18 at 00:00 Miscellaneous Information 1 ea NOTE XX ; Start 07/01/18 at 00:30 Glucose (Glutose) 15 gm Q15M PRN PO DECREASED GLUCOSE; Start 07/01/18 at 00:30 Glucose (Glutose) 22.5 gm Q15M PRN PO DECREASED GLUCOSE; Start 07/01/18 at 00:30 Dextrose (D50w Syringe) 25 ml Q15M PRN IV DECREASED GLUCOSE; Start 07/01/18 at 00:30 Dextrose (D50w Syringe) 50 ml Q15M PRN IV DECREASED GLUCOSE; Start 07/01/18 at 00:30 Glucagon (Glucagen) 1 mg Q15M PRN IM DECREASED GLUCOSE; Start 07/01/18 at 00:30 Glucose (Glutose) 15 gm Q15M PRN BUCCAL DECREASED GLUCOSE; Start 07/01/18 at 00:30 Aspirin (Aspirin) 162 mg DAILY PEG Last administered on 07/05/18at 08:53; Admin Dose 162 MG; Start 07/01/18 at 12:30 IV Flush (NS 10 ml) 10 ml PRN PRN IV FLUSH LINE; Start 07/02/18 at 14:00 Furosemide (Lasix) 20 mg DAILY IV Last administered on 07/05/18at 08:52; Admin Dose 20 MG; Start 07/04/18 at 09:00 Benazepril HCl (Lotensin) 10 mg BID PO Last administered on 07/05/18at 08:53; Admin Dose 10 MG; Start 07/03/18 at 21:00 Cefepime HCl 50 ml @ 100 mls/hr Q12 IVPB Last administered on 07/05/18at 08:52; Admin Dose 100 MLS/HR; Start 07/04/18 at 21:00 MER CHRIS Jul 05, 2018 11:10
--- NOTE | 2018-07-05 14:07 | PN ---
Date/Time of Note Date/Time of Note DATE: 07/05/18 TIME: 14:05 Assessment/Plan VTE Prophylaxis Risk score (from Ns)>0 risk: 6 SCD applied (from Nsg): Yes Pharmacological prophylaxis: LMWH Lines/Catheters IV Catheter Type (from Nrsg): PICC Line Central line still needed: Yes Urinary Cath still in place: Yes Reason Cath still needed: urinary retention Assessment/Plan Hospital Course Patient with episode of hypoglycemia will decrease NPH to 20 units continue to monitor Accu-Chek every 6 hours. Patient is currently on DiaBeta source feeding at 60cc/h via G-tube. Assessment/Plan -Sepsis most likely secondary to HCAP and urinary tract infection, f/up on urine and blood cultures. Continue broad-spectrum antibiotics. Dr. Hodge is following in infection disease consultation. -Septic shock, resolving. -ARF, continue ventilatory support. Dr Mitchell is following in pulmonology consultation. -Chronic tracheostomy -Dysphagia with PEG -Coronary artery disease status post stent placement to LAD and RCA. Dr. Vincent is following in cardiology consultation. -Cardiomyopathy with ejection fraction of 25-30% -Hypertension -Diabetes -Morbid obesity -Chronic encephalopathy Further recommendations based on clinical course. Plan of care discussed with Dr. Cortez. Result Diagram: 07/03/18 1117 07/03/18 0430 Results 24hrs Laboratory Tests Test 07/04/18 16:44 07/04/18 22:49 07/05/18 00:42 07/05/18 06:17 Bedside Glucose 108 71 73 71 Test 07/05/18 08:46 07/05/18 11:52 Bedside Glucose 96 92 Exam/Review of Systems Vital Signs Vitals Vital Signs Date Temp Pulse Resp B/P (MAP) Pulse Ox O2 O2 Flow FiO2 Time Delivery Rate 07/05/18 98.3 71 20 126/78 98 11:31 (94) 07/05/18 30 11:24 07/04/18 Mechanical 20:00 Ventilator Intake and Output 07/04/18 07/04/18 07/05/18 1414:59 22:59 06:59 IntakeIntake Total 1660 ml 730 ml 160 ml OutputOutput Total 1250 ml 650 ml 1250 ml BalanceBalance 410 ml 80 ml -1090 ml Exam Constitutional: non-verbal Head: other (Status post right craniectomy) Neck: supple, other (Tracheostomy at the base of the neck, no bleeding) Respiratory: diminished breath sounds Cardiovascular: regular rate and rhythm Gastrointestinal: soft, non-tender, other (G-tube) Extremities: normal pulses Neurological: other (Nonverbal, did not response to any verbal stimuli, spontaneous movement of the extremities) Skin: nl turgor Medications Medications Current Medications Potassium Chloride/Sodium Chloride 1,000 ml @ 100 mls/hr Q10H IV Last administered on 07/05/18at 10:15; Admin Dose 100 MLS/HR; Start 06/30/18 at 23:45 IV Flush (NS 3 ml) 3 ml PER PROTOCOL IV ; Start 07/01/18 at 00:00 Ondansetron HCl (Zofran Inj) 4 mg Q6H PRN IV NAUSEA AND/OR VOMITING; Start 07/01/18 at 00:00 Albuterol (Proventil 0.083% (Neb)) 2.5 mg Q2H RESP THERAPY PRN NEB SHORTNESS OF BREATH; Start 07/01/18 at 00:00 Ipratropium [place] (Atrovent 0.02% (Neb)) 0.5 mg Q2H RESP THERAPY PRN NEB SHORTNESS OF BREATH; Start 07/01/18 at 00:00 Acetaminophen (Tylenol Liquid) 650 mg Q6H PRN PO PAIN LEVEL 1-3 OR FEVER; Start 07/01/18 at 00:00 Morphine Sulfate (morphine) 2 mg Q4H PRN IV PAIN LEVEL 7-10; Start 07/01/18 at 00:00 Lorazepam (Ativan) 1 mg Q2H PRN IV ANXIETY Last administered on 07/03/18at 23:31; Admin Dose 1 MG; Start 07/01/18 at 00:00 Docusate Sodium (Colace) 100 mg Q12H PRN PO CONSTIPATION; Start 07/01/18 at 00:00 Magnesium Hydroxide (Milk Of Mag) 30 ml DAILY PRN PO CONSTIPATION; Start 07/01/18 at 00:00 Pantoprazole (Protonix Iv) 40 mg DAILY@06 IV Last administered on 07/05/18at 06:12; Admin Dose 40 MG; Start 07/01/18 at 06:00 Enoxaparin Sodium (Lovenox) 30 mg DAILY SC Last administered on 07/05/18at 09:16; Admin Dose 30 MG; Start 07/01/18 at 09:00 Atorvastatin Calcium (Lipitor) 80 mg QHS GTB Last administered on 07/04/18at 22:12; Admin Dose 80 MG; Start 07/01/18 at 21:00 Bisacodyl (Dulcolax Supp) 10 mg Q24H PRN [place] NEEDED; Start 07/01/18 at 00:00 Carvedilol (Coreg) 3.125 mg BID GTB Last administered on 07/05/18at 08:53; Admin Dose 3.125 MG; Start 07/01/18 at 09:00 Valproate Sodium (Depakene Liquid Cup) 500 mg Q8H GTB Last administered on 07/05/18at 08:51; Admin Dose 500 MG; Start 07/01/18 at 00:00 Insulin Aspart (Novolog Insulin Pen) NOVOLOG *MILD* ALGORITHM Q6 SC Last administered on 07/02/18at 17:58; Admin Dose 1 UNIT; Start 07/01/18 at 00:00 Miscellaneous Information 1 ea NOTE XX ; Start 07/01/18 at 00:30 Glucose (Glutose) 15 gm Q15M PRN PO DECREASED GLUCOSE; Start 07/01/18 at 00:30 Glucose (Glutose) 22.5 gm Q15M PRN PO DECREASED GLUCOSE; Start 07/01/18 at 00:30 Dextrose (D50w Syringe) 25 ml Q15M PRN IV DECREASED GLUCOSE; Start 07/01/18 at 00:30 Dextrose (D50w Syringe) 50 ml Q15M PRN IV DECREASED GLUCOSE; Start 07/01/18 at 00:30 Glucagon (Glucagen) 1 mg Q15M PRN IM DECREASED GLUCOSE; Start 07/01/18 at 00:30 Glucose (Glutose) 15 gm Q15M PRN BUCCAL DECREASED GLUCOSE; Start 07/01/18 at 00:30 Aspirin (Aspirin) 162 mg DAILY PEG Last administered on 07/05/18at 08:53; Admin Dose 162 MG; Start 07/01/18 at 12:30 IV Flush (NS 10 ml) 10 ml PRN PRN IV FLUSH LINE; Start 07/02/18 at 14:00 Furosemide (Lasix) 20 mg DAILY IV Last administered on 07/05/18at 08:52; Admin Dose 20 MG; Start 07/04/18 at 09:00 Benazepril HCl (Lotensin) 10 mg BID PO Last administered on 07/05/18at 08:53; Admin Dose 10 MG; Start 07/03/18 at 21:00 Cefepime HCl 50 ml @ 100 mls/hr Q12 IVPB Last administered on 07/05/18at 08:52; Admin Dose 100 MLS/HR; Start 07/04/18 at 21:00 Insulin Human NPH (Humulin N) 20 unit Q8H SC ; Start 07/05/18 at 16:00 SETH AVENDANO Jul 05, 2018 14:07
--- NOTE | 2018-07-05 15:07 | CONS ---
Date/Time of Note Date/Time of Note DATE: 07/05/18 TIME: 15:06 Assessment/Plan Assessment/Plan Hospital Course Patient is noncommunicative in no distress no fevers overnight Microbiology: Urine culture grew Enterobacter erogenous, blood cultures negative Indwelling's: Trach PEG Nelson left upper extremity PICC line Antimicrobials: Cefepime Physical examination: This is a chronically ill-appearing middle-aged man who is nonresponsive the patient is in no distress head with evidence of right-sided cranial bone removal, sclera nonicteric neck is supple tracheostomy present chest rise symmetrical breath sounds clear, diminished bases. Heart: S1-S2. Abdomen soft, bowel sounds present. Extremities mottled without edema Assessment: 1. Status post septic shock 2. Healthcare associated pneumonia, possibly aspirated 3. Recurrent UTI 4. Chronic respiratory failure 5. History of intracranial hemorrhage status post craniotomy 6. Cardiomyopathy and history of PTCA 7. Diabetes and hypertension 8. Anemia Plan: Remains unchanged, continue antibiotics, follow labs in a.m., cardiology and pulmonary recommendations Result Diagram: 07/03/18 1117 07/03/18 0430 Results 24hrs Laboratory Tests Test 07/04/18 16:44 07/04/18 22:49 07/05/18 00:42 07/05/18 06:17 Bedside Glucose 108 71 73 71 Test 07/05/18 08:46 07/05/18 11:52 Bedside Glucose 96 92 Consultation Date/Type/Reason Admit Date/Time Jun 30, 2018 at 16:55 Initial Consult Date Type of Consult id Requesting Provider: NIA DOMINGO MD Exam/Review of Systems Vital Signs Vitals Vital Signs Date Temp Pulse Resp B/P (MAP) Pulse Ox O2 O2 Flow FiO2 Time Delivery Rate 07/05/18 75 14:31 07/05/18 40 12:00 07/05/18 98.3 20 126/78 98 11:31 (94) 07/04/18 Mechanical 20:00 Ventilator Intake and Output 07/04/18 07/04/18 07/05/18 1515:00 23:00 07:00 IntakeIntake Total 1660 ml 570 ml 160 ml OutputOutput Total 1425 ml 425 ml 1250 ml BalanceBalance 235 ml 145 ml -1090 ml Medications Medications Current Medications Potassium Chloride/Sodium Chloride 1,000 ml @ 100 mls/hr Q10H IV Last administered on 07/05/18at 10:15; Admin Dose 100 MLS/HR; Start 06/30/18 at 23:45 IV Flush (NS 3 ml) 3 ml PER PROTOCOL IV ; Start 07/01/18 at 00:00 Ondansetron HCl (Zofran Inj) 4 mg Q6H PRN IV NAUSEA AND/OR VOMITING; Start 06/22 at 00:00 Albuterol (Proventil 0.083% (Neb)) 2.5 mg Q2H RESP THERAPY PRN NEB SHORTNESS OF BREATH; Start 07/01/18 at 00:00 Ipratropium [place] (Atrovent 0.02% (Neb)) 0.5 mg Q2H RESP THERAPY PRN NEB SHORTNESS OF BREATH; Start 07/01/18 at 00:00 Acetaminophen (Tylenol Liquid) 650 mg Q6H PRN PO PAIN LEVEL 1-3 OR FEVER; Start 07/01/18 at 00:00 Morphine Sulfate (morphine) 2 mg Q4H PRN IV PAIN LEVEL 7-10; Start 07/01/18 at 00:00 Lorazepam (Ativan) 1 mg Q2H PRN IV ANXIETY Last administered on 07/03/18at 23:31; Admin Dose 1 MG; Start 07/01/18 at 00:00 Docusate Sodium (Colace) 100 mg Q12H PRN PO CONSTIPATION; Start 07/01/18 at 00:00 Magnesium Hydroxide (Milk Of Mag) 30 ml DAILY PRN PO CONSTIPATION; Start 07/01/18 at 00:00 Pantoprazole (Protonix Iv) 40 mg DAILY@06 IV Last administered on 07/05/18at 06:12; Admin Dose 40 MG; Start 07/01/18 at 06:00 Enoxaparin Sodium (Lovenox) 30 mg DAILY SC Last administered on 07/05/18at 09:16; Admin Dose 30 MG; Start 07/01/18 at 09:00 Atorvastatin Calcium (Lipitor) 80 mg QHS GTB Last administered on 07/04/18at 22:12; Admin Dose 80 MG; Start 07/01/18 at 21:00 Bisacodyl (Dulcolax Supp) 10 mg Q24H PRN [place] NEEDED; Start 07/01/18 at 00:00 Carvedilol (Coreg) 3.125 mg BID GTB Last administered on 07/05/18at 08:53; Admin Dose 3.125 MG; Start 07/01/18 at 09:00 Valproate Sodium (Depakene Liquid Cup) 500 mg Q8H GTB Last administered on 07/05/18at 08:51; Admin Dose 500 MG; Start 07/01/18 at 00:00 Insulin Aspart (Novolog Insulin Pen) NOVOLOG *MILD* ALGORITHM Q6 SC Last administered on 07/02/18at 17:58; Admin Dose 1 UNIT; Start 07/01/18 at 00:00 Miscellaneous Information 1 ea NOTE XX ; Start 07/01/18 at 00:30 Glucose (Glutose) 15 gm Q15M PRN PO DECREASED GLUCOSE; Start 07/01/18 at 00:30 Glucose (Glutose) 22.5 gm Q15M PRN PO DECREASED GLUCOSE; Start 07/01/18 at 00:30 Dextrose (D50w Syringe) 25 ml Q15M PRN IV DECREASED GLUCOSE; Start 07/01/18 at 00:30 Dextrose (D50w Syringe) 50 ml Q15M PRN IV DECREASED GLUCOSE; Start 07/01/18 at 00:30 Glucagon (Glucagen) 1 mg Q15M PRN IM DECREASED GLUCOSE; Start 07/01/18 at 00:30 Glucose (Glutose) 15 gm Q15M PRN BUCCAL DECREASED GLUCOSE; Start 07/01/18 at 00:30 Aspirin (Aspirin) 162 mg DAILY PEG Last administered on 07/05/18at 08:53; Admin Dose 162 MG; Start 07/01/18 at 12:30 IV Flush (NS 10 ml) 10 ml PRN PRN IV FLUSH LINE; Start 07/02/18 at 14:00 Furosemide (Lasix) 20 mg DAILY IV Last administered on 07/05/18at 08:52; Admin Dose 20 MG; Start 07/04/18 at 09:00 Benazepril HCl (Lotensin) 10 mg BID PO Last administered on 07/05/18at 08:53; Admin Dose 10 MG; Start 07/03/18 at 21:00 Cefepime HCl 50 ml @ 100 mls/hr Q12 IVPB Last administered on 07/05/18at 08:52; Admin Dose 100 MLS/HR; Start 07/04/18 at 21:00 Insulin Human NPH (Humulin N) 20 unit Q8H [place] ; Start 07/05/18 at 16:00 SANDER AMADOR NP Jul 05, 2018 15:07
[2018-07-05] MEDS: ATORVASTATIN 80 MG TAB GTB SCH (20:30)
[2018-07-05] MEDS ORDERED: FUROSEMIDE 40 MG INJ ONE (22:18)
[2018-07-05] MEDS ORDERED: HALOPERIDOL 5 MG INJ ONE (22:21)
[2018-07-05] MEDS ORDERED: HALOPERIDOL 5 MG INJ IV PRN (22:30)
[2018-07-05] MEDS ORDERED: FUROSEMIDE 40 MG INJ IV ONE (22:30)
[2018-07-06] VITALS (40 sets, daily range): BP systolic 80–168; BP diastolic 56–79; PULSE 54–96; RESP 12–37
[2018-07-06] MEDS: VALPROIC ACID LIQUID CUP 250 MG/5 ML CUP GTB SCH ×4 (00:31→23:44)
[2018-07-06] MEDS: LANSOPRAZOLE 30 MG CAP GTB SCH (05:55)
[2018-07-06] MEDS: INSULIN ASPART [NOVOLOG] 3 ML PEN SC SCH ×5 (05:55→23:38)
--- NOTE | 2018-07-06 06:57 | EN ---
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 Patient is trach to vent. Oxygen saturation in the 70s and 80s. When suctioned he had somehow thick frothy aspirate. Oxygenation improved when patient was being packed. He was transferred to ICU for close observation. Made adjustments to his vent settings. We will follow-up on ABG. The previous chest x-ray shows pulmonary vascular congestion, but patient with adequate urine output. We will follow-up on the repeat chest x-ray Physical exam General: Trach to vent, looks uncomfortable HEENT: PERRLA Neck: Trach tube in place. Intact gag reflex when suctioned CV: Tachycardic Lungs: Decreased breath sounds anteriorly Assessment 52-year-old male who is trach vent dependent with decreased oxygen saturation PLAN Continue suction Breathing treatment Adjust vent settings Follow-up ABG Chest x-ray Transfer to ICU WEN BURNS MD Jul 06, 2018 06:57
[2018-07-06] MEDS: NPH, HUMAN INSULIN ISOPHANE 3ML VIAL SC SCH ×4 (08:00→23:43)
--- NOTE | 2018-07-06 08:52 | CONS ---
Date/Time of Note Date/Time of Note DATE: 07/06/18 TIME: 08:49 Assessment/Plan Assessment/Plan Assessment/Plan Ventilator setting; AC of 16, tidal volume 500, PEEP of 5, 50% FiO2. Chest x-ray showing increasing infiltrate on the right side with mediastinal shift towards the right with volume loss. Assessment recommendations; 1. Patient with history of prior sternotomy and chronic encephalopathy as well as VDR F admitted for pneumonia and sepsis. 2. Interval worsening in chest x-ray due to likely right mainstem mucous plug. 3. Anemia. 4. Worsening leukocytosis indicative of recurrent pneumonia. 5. Mild CHF. 6. History of hypertension. Continue current supportive care. Patient will need to have a bronchoscopy performed. Consent was obtained over the telephone with the patient's which was witnessed by the treating nurse. We will proceed shortly with the procedure. Meanwhile add vancomycin to current antimicrobial regimen. Obtain follow-up chest x-ray post bronchoscopy. 35 minutes of critical care time was spent evaluating the patient exclusive of any procedures. Result Diagram: 07/06/18 0400 07/06/18 0400 Results 24hrs Laboratory Tests Test 07/05/18 11:52 07/05/18 16:37 07/05/18 17:46 07/05/18 21:22 Bedside Glucose 92 93 119 94 Test 07/05/18 21:25 07/06/18 00:25 07/06/18 00:29 07/06/18 04:00 Blood Gas Blood arterial Blood arterial Specimen Source Arterial Blood 07/05/2018 9:30: 07/06/2018 12:30 Date Drawn 47 PM :14 AM Arterial Blood 7.442 7.443 pH (Temp corrected) Arterial Blood 40.2 39.6 pCO2 (Temp correct) Arterial Blood 47.6 *L 156.3 H pO2 (Temp corrected) Arterial Blood 26.8 H 26.5 H HCO3 Arterial Blood 2.5 2.3 Base Excess Arterial Blood 84.4 L 98.9 H Oxygen Saturatio n Rl Test ACCEPTAB ACCEPTAB Arterial Blood Right Radial Right Radial Gas Puncture Site Arterial 0.1 0.1 Blood Carboxyhem oglobin Arterial Blood 0.3 0.4 Methemoglobin Blood Gas A-a O2 625.2 H 444.8 H Differential Oxyhemoglobin 84.1 L 98.4 Percent Blood Gas 37.0 37.0 Temperature Blood Gas 16.0 16.0 Respiration Rate Blood Gas VENT - AC VENT - AC Modality FiO2 100.0 90.0 Blood Gas Tidal 500.0 500.0 Volume Blood Gas Low 5.0 PEEP Setting Blood Gas NAVJOT DE Critical Value RN Read Back Blood Gas ANDRE James RCO Notified Whom Blood Gas 07/05/2018 9:37: 07/06/2018 12:35 Notified Time 26 PM :31 AM Blood Gas Actual 25 Respiration Rate Blood Gas High 5.0 PEEP Setting Bedside Glucose 77 White Blood 17.1 #H Count Red Blood Count 3.46 #L Hemoglobin 9.0 L Hematocrit 28.4 L Mean Corpuscular 82.1 Volume Mean Corpuscular 26.0 L Hemoglobin Mean Corpuscular 31.7 L Hemoglobin Dolores nt Red Cell 15.7 H Distribution Width Platelet Count 307 # Mean Platelet 10.5 H Volume Immature 0.500 H Granulocytes % Neutrophils % 82.5 H Lymphocytes % 9.7 L Monocytes % 6.5 Eosinophils % 0.5 Basophils % 0.3 Nucleated Red 0.0 Blood Cells % Immature 0.090 H Granulocytes # Neutrophils # 14.1 H Lymphocytes # 1.7 Monocytes # 1.1 H Eosinophils # 0.1 Basophils # 0.1 Nucleated Red 0.0 Blood Cells # Sodium Level 135 Potassium Level 4.2 Chloride Level 101 Carbon Dioxide 30 Level Anion Gap 4 L Blood Urea 13 Nitrogen Creatinine 0.89 Est Glomerular > 60 Filtrat Rate mL/min Glucose Level 81 Calcium Level 8.6 Test 07/06/18 07:49 Bedside Glucose 80 Consultation Date/Type/Reason Admit Date/Time Jun 30, 2018 at 16:55 Initial Consult Date Type of Consult Pulmonary/critical care Requesting Provider: NIA DOMINGO MD 24 HR Interval Summary Free Text/Dictation Patient's condition is critical. The patient developed hypoxemia earlier today and a rapid response was called in patient was stabilized and moved to ICU. By the time I saw him, patient appears comfortable and because of chronic encephalopathy remains noncommunicative. General exam; middle-aged male, on ventilator via tracheostomy, unresponsive, currently in no distress. Exam/Review of Systems Vital Signs Vitals Vital Signs Date Temp Pulse Resp B/P (MAP) Pulse Ox O2 O2 Flow FiO2 Time Delivery Rate 07/06/18 80 08:30 07/06/18 50 08:30 07/06/18 98.7 08:00 07/06/18 21 109/62 100 08:00 (78) 07/06/18 Mechanical 06:00 Ventilator Intake and Output 07/05/18 07/05/18 07/06/18 1515:00 23:00 07:00 IntakeIntake Total 1050 ml 1745 ml 250 ml OutputOutput Total 3500 ml 975 ml BalanceBalance 1050 ml -1755 ml -725 ml Exam HEENT exam; supple neck, no JVD. No lymphadenopathy. Midline trachea. No thyromegaly. There are well-healed right parietal craniotomy scars. Tra cheostomy in place. Patient has fair dentition. Chest exam; diminished breath sounds bilaterally. S1-S2 audible, no murmurs. Regular rhythm. Abdomen exam; soft, protuberant. No organomegaly. G-tube in place. Bowel sounds audible. Extremity exam; no edema clubbing. VACCINE SPECIALIST exam; patient remains noncommunicative. Medications Medications Current Medications IV Flush (NS 3 ml) 3 ml PER PROTOCOL IV ; Start 07/01/18 at 00:00 Ondansetron HCl (Zofran Inj) 4 mg Q6H PRN IV NAUSEA AND/OR VOMITING; Start 07/01/18 at 00:00 Albuterol (Proventil 0.083% (Neb)) 2.5 mg Q2H RESP THERAPY PRN NEB SHORTNESS OF BREATH; Start 07/01/18 at 00:00 Ipratropium [place] (Atrovent 0.02% (Neb)) 0.5 mg Q2H RESP THERAPY PRN NEB SHORTNESS OF BREATH; Start 07/01/18 at 00:00 Acetaminophen (Tylenol Liquid) 650 mg Q6H PRN PO PAIN LEVEL 1-3 OR FEVER; Start 07/01/18 at 00:00 Morphine Sulfate (morphine) 2 mg Q4H PRN IV PAIN LEVEL 7-10 Last administered on 07/05/18at 22:10; Admin Dose 2 MG; Start 07/01/18 at 00:00 Docusate Sodium (Colace) 100 mg Q12H PRN PO CONSTIPATION; Start 07/01/18 at 00:00 Magnesium Hydroxide (Milk Of Mag) 30 ml DAILY PRN PO CONSTIPATION; Start 07/01/18 at 00:00 Atorvastatin Calcium (Lipitor) 80 mg QHS GTB Last administered on 07/05/18at 2 0:30; Admin Dose 80 MG; Start 07/01/18 at 21:00 Bisacodyl (Dulcolax Supp) 10 mg Q24H PRN [place] NEEDED; Start 07/01/18 at 00:00 Carvedilol (Coreg) 3.125 mg BID GTB Last administered on 07/05/18at 20:31; Admin Dose 3.125 MG; Start 07/01/18 at 09:00 Valproate Sodium (Depakene Liquid Cup) 500 mg Q8H GTB Last administered on 07/06/18at 00:31; Admin Dose 500 MG; Start 07/01/18 at 00:00 Insulin Aspart (Novolog Insulin Pen) NOVOLOG *MILD* ALGORITHM Q6 SC Last administered on 07/02/18at 17:58; Admin Dose 1 UNIT; Start 07/01/18 at 00:00 Miscellaneous Information 1 ea NOTE XX ; Start 07/01/18 at 00:30 Glucose (Glutose) 15 gm Q15M PRN PO DECREASED GLUCOSE; Start 07/01/18 at 00:30 Glucose (Glutose) 22.5 gm Q15M PRN PO DECREASED GLUCOSE; Start 07/01/18 at 00:30 Dextrose (D50w Syringe) 25 ml Q15M PRN IV DECREASED GLUCOSE; Start 07/01/18 at 00:30 Dextrose (D50w Syringe) 50 ml Q15M PRN IV DECREASED GLUCOSE; Start 07/01/18 at 00:30 Glucagon (Glucagen) 1 mg Q15M PRN IM DECREASED GLUCOSE; Start 07/01/18 at 00:30 Glucose (Glutose) 15 gm Q15M PRN BUCCAL DECREASED GLUCOSE; Start 07/01/18 at 00:30 Aspirin (Aspirin) 162 mg DAILY PEG Last administered on 07/05/18at 08:53; Admin Dose 162 MG; Start 07/01/18 at 12:30 IV Flush (NS 10 ml) 10 ml PRN PRN IV FLUSH LINE; Start 07/02/18 at 14:00 Furosemide (Lasix) 20 mg DAILY IV Last administered on 07/05/18at 08:52; Admin Dose 20 MG; Start 07/04/18 at 09:00 Benazepril HCl (Lotensin) 10 mg BID PO Last administered on 07/05/18at 20:32; Admin Dose 10 MG; Start 07/03/18 at 21:00 Cefepime HCl 50 ml @ 100 mls/hr Q12 IVPB Last administered on 07/05/18at 22:15; Admin Dose 100 MLS/HR; Start 07/04/18 at 21:00 Insulin Human NPH (Humulin N) 20 unit Q8H SC Last administered on 07/05/18at 16:43; Admin Dose 20 UNIT; Start 07/05/18 at 16:00 Lansoprazole (Prevacid) 30 mg DAILY@06 GTB Last administered on 07/06/18at 05:55; Admin Dose 30 MG; Start 07/06/18 at 06:00 Haloperidol (Haldol) 5 mg Q4 PRN IV AGITATION Last administered on 07/05/18at 22:28; Admin Dose 5 MG; Start 07/05/18 at 22:30 Enoxaparin Sodium (Lovenox) 40 mg DAILY SC ; Start 07/06/18 at 09:00 Vancomycin HCl (Vanco Iv Per Pharmacy) VANCOMYCIN PER PHARMACY PER PROTOCOL XX ; Start 07/06/18 at 09:00; Status MER ROMO Jul 06, 2018 08:52
[2018-07-06] MEDS ORDERED: VANCOMYCIN IV PER PHARMACY XX SCH ×2 (09:00)
[2018-07-06] MEDS: CEFEPIME 1GM/50 ML (PMX) 50 ML IVPB SCH ×2 (09:17→21:41)
[2018-07-06] MEDS: ENOXAPARIN 40 MG/0.4 ML SYG SC SCH (09:20)
[2018-07-06] MEDS: FUROSEMIDE 20 MG INJ IV SCH (09:26)
[2018-07-06] MEDS: BENAZEPRIL 10 MG TAB PO SCH ×2 (09:27→21:41)
[2018-07-06] MEDS: ASPIRIN 81 MG TAB PEG SCH (09:27)
--- NOTE | 2018-07-06 09:27 | CONS ---
Date/Time of Note Date/Time of Note DATE: 07/06/18 TIME: 09:25 Assessment/Plan Assessment/Plan Assessment/Plan 1. Hypotension/shock state and likely septic.- now off levophed - better now - awaiting bronch. Reasonable oxygen sat. 2. Cardiomyopathy with decreased left ventricular ejection fraction, last known to be 30% by echo in 01/2018.-neg trop x 3 - no intervention planned now. 3. History of prior percutaneous transluminal coronary angioplasty and stent placements, most recently to LAD in 2014. 4. Urinary tract infection, likely urosepsis- con't anti-Bx. 5. Diabetes mellitus. 6. Chronic respiratory failure, status post tracheostomy - now CXR white-out - bronch planned. 7. Dysphagia, status post G-tube. 8. Chronic encephalopathy. 9. Leukocytosis. 10. History of hemorrhagic cerebrovascular accident. 11.NSVT Result Diagram: 07/06/18 0400 07/06/18 0400 Results 24hrs Laboratory Tests Test 07/05/18 11:52 07/05/18 16:37 07/05/18 17:46 07/05/18 21:22 Bedside Glucose 92 93 119 94 Test 07/05/18 21:25 07/06/18 00:25 07/06/18 00:29 07/06/18 04:00 Blood Gas Blood arterial Blood arterial Specimen Source Arterial Blood 07/05/2018 9:30: 07/06/2018 12:30 Date Drawn 47 PM :14 AM Arterial Blood 7.442 7.443 pH (Temp corrected) Arterial Blood 40.2 39.6 pCO2 (Temp correct) Arterial Blood 47.6 *L 156.3 H pO2 (Temp corrected) Arterial Blood 26.8 H 26.5 H HCO3 Arterial Blood 2.5 2.3 Base Excess Arterial Blood 84.4 L 98.9 H Oxygen Saturatio n Rl Test ACCEPTAB ACCEPTAB Arterial Blood Right Radial Right Radial Gas Puncture Site Arterial 0.1 0.1 Blood Carboxyhem oglobin Arterial Blood 0.3 0.4 Methemoglobin Blood Gas A-a O2 625.2 H 444.8 H Differential Oxyhemoglobin 84.1 L 98.4 Percent Blood Gas 37.0 37.0 Temperature Blood Gas 16.0 16.0 Respiration Rate Blood Gas VENT - AC VENT - AC Modality FiO2 100.0 90.0 Blood Gas Tidal 500.0 500.0 Volume Blood Gas Low 5.0 PEEP Setting Blood Gas NAVJOT DE Critical Value RN Read Back Blood Gas ANDRE James RCO Notified Whom Blood Gas 07/05/2018 9:37: 07/06/2018 12:35 Notified Time 26 PM :31 AM Blood Gas Actual 25 Respiration Rate Blood Gas High 5.0 PEEP Setting Bedside Glucose 77 White Blood 17.1 #H Count Red Blood Count 3.46 #L Hemoglobin 9.0 L Hematocrit 28.4 L Mean Corpuscular 82.1 Volume Mean Corpuscular 26.0 L Hemoglobin Mean Corpuscular 31.7 L Hemoglobin Dolores nt Red Cell 15.7 H Distribution Width Platelet Count 307 # Mean Platelet 10.5 H Volume Immature 0.500 H Granulocytes % Neutrophils % 82.5 H Lymphocytes % 9.7 L Monocytes % 6.5 Eosinophils % 0.5 Basophils % 0.3 Nucleated Red 0.0 Blood Cells % Immature 0.090 H Granulocytes # Neutrophils # 14.1 H Lymphocytes # 1.7 Monocytes # 1.1 H Eosinophils # 0.1 Basophils # 0.1 Nucleated Red 0.0 Blood Cells # Sodium Level 135 Potassium Level 4.2 Chloride Level 101 Carbon Dioxide 30 Level Anion Gap 4 L Blood Urea 13 Nitrogen Creatinine 0.89 Est Glomerular > 60 Filtrat Rate mL/min Glucose Level 81 Calcium Level 8.6 Test 07/06/18 07:49 Bedside Glucose 80 Consultation Date/Type/Reason Admit Date/Time Jun 30, 2018 at 16:55 Initial Consult Date Requesting Provider: NIA DOMINGO MD 24 HR Interval Summary Free Text/Dictation NO acute events - BP stable - awaiting bronchoscopy. ROS: No fever, no chills, no nausea, no vomiting, no diarrhea/constipation No recent weight changes No chest pain, no PND, no orthopnea - per nurse, stable SOB. No dizziness, blurred vision No thirst, no heat or cold intolerance Exam/Review of Systems Vital Signs Vitals Vital Signs Date Temp Pulse Resp B/P (MAP) Pulse Ox O2 O2 Flow FiO2 Time Delivery Rate 07/06/18 80 08:30 07/06/18 50 08:30 07/06/18 98.7 08:00 07/06/18 21 109/62 100 08:00 (78) 1/15/19 Mechanical 06:00 Ventilator Intake and Output 07/05/18 07/05/18 07/06/18 1515:00 23:00 07:00 IntakeIntake Total 1050 ml 1745 ml 250 ml OutputOutput Total 3500 ml 975 ml BalanceBalance 1050 ml -1755 ml -725 ml Exam General: WN/WD/NAD, AOx comfortable. HEENT: Unicetric/atraumatic/EOMI (does not follow commands) NECK: trach Lymph: no lymphadenopathy HEART: regular with no S3, II/ systolic murmur at apex LUNGS: Coarse sounds ABD: soft, NT, ND, +BS : Intact Neuro: non focal SKIN: chronic changes EXT: trace edema Medications Medications Current Medications IV Flush (NS 3 ml) 3 ml PER PROTOCOL IV ; Start 07/01/18 at 00:00 Ondansetron HCl (Zofran Inj) 4 mg Q6H PRN IV NAUSEA AND/OR VOMITING; Start 07/01/18 at 00:00 Albuterol (Proventil 0.083% (Neb)) 2.5 mg Q2H RESP THERAPY PRN NEB SHORTNESS OF BREATH; Start 07/01/18 at 00:00 Ipratropium [place] (Atrovent 0.02% (Neb)) 0.5 mg Q2H RESP THERAPY PRN NEB SHORTNESS OF BREATH; Start 07/01/18 at 00:00 Acetaminophen (Tylenol Liquid) 650 mg Q6H PRN PO PAIN LEVEL 1-3 OR FEVER; Start 07/01/18 at 00:00 Morphine Sulfate (morphine) 2 mg Q4H PRN IV PAIN LEVEL 7-10 Last administered on 07/05/18at 22:10; Admin Dose 2 MG; Start 07/01/18 at 00:00 Docusate Sodium (Colace) 100 mg Q12H PRN PO CONSTIPATION; Start 07/01/18 at 00:00 Magnesium Hydroxide (Milk Of Mag) 30 ml DAILY PRN PO CONSTIPATION; Start 07/01/18 at 00:00 Atorvastatin Calcium (Lipitor) 80 mg QHS GTB Last administered on 07/05/18at 20:30; Admin Dose 80 MG; Start 07/01/18 at 21:00 Bisacodyl (Dulcolax Supp) 10 mg Q24H PRN [place] NEEDED; Start 07/01/18 at 00:00 Carvedilol (Coreg) 3.125 mg BID GTB Last administered on 07/05/18at 20:31; Admin Dose 3.125 MG; Start 07/01/18 at 09:00 Valproate Sodium (Depakene Liquid Cup) 500 mg Q8H GTB Last administered on 07/06/18at 00:31; Admin Dose 500 MG; Start 07/01/18 at 00:00 Insulin Aspart (Novolog Insulin Pen) NOVOLOG *MILD* ALGORITHM Q6 SC Last administered on 07/02/18at 17:58; Admin Dose 1 UNIT; Start 07/01/18 at 00:00 Miscellaneous Information 1 ea NOTE XX ; Start 07/01/18 at 00:30 Glucose (Glutose) 15 gm Q15M PRN PO DECREASED GLUCOSE; Start 07/01/18 at 00:30 Glucose (Glutose) 22.5 gm Q15M PRN PO DECREASED GLUCOSE; Start 07/01/18 at 00:30 Dextrose (D50w Syringe) 25 ml Q15M PRN IV DECREASED GLUCOSE; Start 07/01/18 at 00:30 Dextrose (D50w Syringe) 50 ml Q15M PRN IV DECREASED GLUCOSE; Start 07/01/18 at 00:30 Glucagon (Glucagen) 1 mg Q15M PRN IM DECREASED GLUCOSE; Start 07/01/18 at 00:30 Glucose (Glutose) 15 gm Q15M PRN BUCCAL DECREASED GLUCOSE; Start 07/01/18 at 00:30 Aspirin (Aspirin) 162 mg DAILY PEG Last administered on 07/05/18at 08:53; Admin Dose 162 MG; Start 07/01/18 at 12:30 IV Flush (NS 10 ml) 10 ml PRN PRN IV FLUSH LINE; Start 07/02/18 at 14:00 Furosemide (Lasix) 20 mg DAILY IV Last administered on 07/05/18at 08:52; Admin Dose 20 MG; Start 07/04/18 at 09:00 Benazepril HCl (Lotensin) 10 mg BID PO Last administered on 07/05/18at 20:32; Admin Dose 10 MG; Start 07/03/18 at 21:00 Cefepime HCl 50 ml @ 100 mls/hr Q12 IVPB Last administered on 07/05/18at 22:15; Admin Dose 100 MLS/HR; Start 07/04/18 at 21:00 Insulin Human NPH (Humulin N) 20 unit Q8H SC Last administered on 07/05/18at 16:43; Admin Dose 20 UNIT; Start 07/05/18 at 16:00 Lansoprazole (Prevacid) 30 mg DAILY@06 GTB Last administered on 07/06/18at 05:55; Admin Dose 30 MG; Start 07/06/18 at 06:00 Haloperidol (Haldol) 5 mg Q4 PRN IV AGITATION Last administered on 07/05/18at 22:28; Admin Dose 5 MG; Start 07/05/18 at 22:30 Enoxaparin Sodium (Lovenox) 40 mg DAILY SC ; Start 07/06/18 at 09:00 Vancomycin HCl (Vanco Iv Per Pharmacy) VANCOMYCIN PER PHARMACY PER PROTOCOL XX ; Start 07/06/18 at 09:00 Vancomycin HCl 1.25 gm/Sodium Chloride 250 ml @ 83.333 mls/ hr Q12H IVPB ; Start 07/06/18 at 11:00 KYLEIGH MENDENHALL MD Jul 06, 2018 09:27
--- NOTE | 2018-07-06 10:52 | EN ---
Date/Time of Note Date/Time of Note DATE: 07/06/18 TIME: 10:49 Event Note Medicine Medicine Event Note Bronchoscopy Indication; possible right lung atelectasis due to right mainstem mucous plugging. Chest x-ray showing mediastinal shift towards the right with volume loss. Informed consent was obtained from the patient's over the phone, witnessed by nurse. Patient already was on ventilator via tracheostomy. Because of severe chronic encephalopathy patient has poor baseline mental status. Topical anesthesia was achieved by instilling 5 mL of 1% lidocaine through the tracheostomy tube. Bronchoscope was introduced via tracheostomy. Distal trachea was normal. Anabella was sharp and well defined. The scope was introduced into the right mainstem bronchus with evaluation of the right upper lobe, bronchus intermedius, middle lobe, superior segment of the lower lobe and lower lobes there were all free of any significant mucous plugging or obstruction. The scope was then advanced into the left mainstem bronchus with evaluation of the left upper lobe, lingula, lower lobes and superior segment of the lower lobe, all segments were patent with very minimal mucus if any. The scope was then withdrawn. Patient maintained stable cardiac rhythm, O2 saturation and airway pressures. Start time was 10:30 AM. Finish time was 10:35 AM. MER CHRIS Jul 06, 2018 10:52
[2018-07-06] MEDS: VANCOMYCIN HCL 1.25 GM in SOD CHLORIDE 0.9% 250 ML IVPB SCH ×2 (10:58→23:19)
--- NOTE | 2018-07-06 12:44 | PN ---
Date/Time of Note Date/Time of Note DATE: 07/06/18 TIME: 12:41 Assessment/Plan VTE Prophylaxis Risk score (from Ns)>0 risk: 5 SCD applied (from Ns): Yes Pharmacological prophylaxis: LMWH Lines/Catheters IV C[facility]ter Type (from [facility] PICC Line Central line still needed: Yes Urinary Cath still in place: Yes Reason Cath still needed: urinary retention Assessment/Plan Hospital Course Patient patient desaturated last night while being on vent stat chest x-ray revealed right lung consolidation, patient was transferred to intensive care unit and underwent bronchoscopy today in the morning. Currently patient with adequate oxygen saturation continues on ventilatory support. Assessment/Plan -Lung atelectasis, status post bronchoscopy by Dr. Wall on 07/06/2018. -Sepsis most likely secondary to HCAP and urinary tract infection, f/up on urine and blood cultures. Continue broad-spectrum antibiotics. Dr. Hodge is f geovannying in infection disease consultation. -Septic shock, resolving. -ARF, continue ventilatory support. Dr Mitchell is following in pulmonology consultation. -Chronic tracheostomy -Dysphagia with PEG -Coronary artery disease status post stent placement to LAD and RCA. Dr. Vincent is following in cardiology consultation. -Cardiomyopathy with ejection fraction of 25-30% -Hypertension -Diabetes -Morbid obesity -Chronic encephalopathy Further recommendations based on clinical course. Plan of care discussed with Dr. Cortez. Result Diagram: 07/06/18 0400 07/06/18 0400 Results 24hrs Laboratory Tests Test 07/05/18 16:37 07/05/18 17:46 07/05/18 21:22 07/05/18 21:25 Bedside Glucose 93 119 94 Blood Gas Blood arterial Specimen Source Arterial Blood 07/05/2018 9:30: Date Drawn 47 PM Arterial Blood 7.442 pH (Temp corrected) Arterial Blood 40.2 pCO2 (Temp correct) Arterial Blood 47.6 *L pO2 (Temp corrected) Arterial Blood 26.8 H HCO3 Arterial Blood 2.5 Base Excess Arterial Blood 84.4 L Oxygen Saturatio n Rl Test ACCEPTAB Arterial Blood Right Radial Gas Puncture Site Arterial 0.1 Blood Carboxyhem oglobin Arterial Blood 0.3 Methemoglobin Blood Gas A-a O2 625.2 H Differential Oxyhemoglobin 84.1 L Percent Blood Gas 37.0 Temperature Blood Gas 16.0 Respiration Rate Blood Gas VENT - AC Modality FiO2 100.0 Blood Gas Tidal 500.0 Volume Blood Gas Low 5.0 PEEP Setting Blood Gas NAVJOT DE Critical Value RN Read Back Blood Gas BR Notified Whom Blood Gas 07/05/2018 9:37: Notified Time 26 PM Test 07/06/18 00:25 07/06/18 00:29 07/06/18 04:00 07/06/18 07:49 Blood Gas Blood arterial Specimen Source Arterial Blood 07/06/2018 12:30 Date Drawn :14 AM Arterial Blood 7.443 pH (Temp corrected) Arterial Blood 39.6 pCO2 (Temp correct) Arterial Blood 156.3 H pO2 (Temp corrected) Arterial Blood 26.5 H HCO3 Arterial Blood 2.3 Base Excess Arterial Blood 98.9 H Oxygen Saturatio n Rl Test ACCEPTAB Arterial Blood Right Radial Gas Puncture Site Arterial 0.1 Blood Carboxyhem oglobin Arterial Blood 0.4 Methemoglobin Blood Gas A-a O2 444.8 H Differential Oxyhemoglobin 98.4 Percent Blood Gas 37.0 Temperature Blood Gas 16.0 Respiration Rate Blood Gas Actual 25 Respiration Rate Blood Gas VENT - AC Modality FiO2 90.0 Blood Gas Tidal 500.0 Volume Blood Gas High 5.0 PEEP Setting Blood Gas M Jacob CISNEROS Notified Whom Blood Gas 07/06/2018 12:35 Notified Time :31 AM Bedside Glucose 77 80 White Blood 17.1 #H Count Red Blood Count 3.46 #L Hemoglobin 9.0 L Hematocrit 28.4 L Mean Corpuscular 82.1 Volume Mean Corpuscular 26.0 L Hemoglobin Mean Corpuscular 31.7 L Hemoglobin Dolores nt Red Cell 15.7 H Distribution Width Platelet Count 307 # Mean Platelet 10.5 H Volume Immature 0.500 H Granulocytes % Neutrophils % 82.5 H Lymphocytes % 9.7 L Monocytes % 6.5 Eosinophils % 0.5 Basophils % 0.3 Nucleated Red 0.0 Blood Cells % Immature 0.090 H Granulocytes # Neutrophils # 14.1 H Lymphocytes # 1.7 Monocytes # 1.1 H Eosinophils # 0.1 Basophils # 0.1 Nucleated Red 0.0 Blood Cells # Sodium Level 135 Potassium Level 4.2 Chloride Level 101 Carbon Dioxide 30 Level Anion Gap 4 L Blood Urea 13 Nitrogen Creatinine 0.89 Est Glomerular > 60 Filtrat Rate mL/min Glucose Level 81 Calcium Level 8.6 Test 07/06/18 12:09 Bedside Glucose 108 Exam/Review of Systems Vital Signs Vitals Vital Signs Date Temp Pulse Resp B/P (MAP) Pulse Ox O2 O2 Flow FiO2 Time Delivery Rate 07/06/18 59 12:00 07/06/18 50 08:30 07/06/18 98.7 08:00 07/06/18 21 109/62 100 08:00 (78) 07/06/18 Mechanical 06:00 Ventilator Intake and Output 07/05/18 07/05/18 07/06/18 1515:00 23:00 07:00 IntakeIntake Total 1050 ml 1745 ml 250 ml OutputOutput Total 3500 ml 975 ml BalanceBalance 1050 ml -1755 ml -725 ml Exam Constitutional: non-verbal Head: other (Status post right craniectomy) Neck: supple, other (Tracheostomy at the base of the neck, no bleeding) Respiratory: diminished breath sounds Cardiovascular: regular rate and rhythm Gastrointestinal: soft, non-tender, other (G-tube) Extremities: normal pulses Neurological: other (Nonverbal, did not response to any verbal stimuli, spontaneous movement of the extremities) Skin: nl turgor Medications Medications Current Medications IV Flush (NS 3 ml) 3 ml PER PROTOCOL IV ; Start 07/01/18 at 00:00 Ondansetron HCl (Zofran Inj) 4 mg Q6H PRN IV NAUSEA AND/OR VOMITING; Start 07/01/18 at 00:00 Albuterol (Proventil 0.083% (Neb)) 2.5 mg Q2H RESP THERAPY PRN NEB SHORTNESS OF BREATH; Start 07/01/18 at 00:00 Ipratropium [place] (Atrovent 0.02% (Neb)) 0.5 mg Q2H RESP THERAPY PRN NEB SHORTNESS OF BREATH; Start 07/01/18 at 00:00 Acetaminophen (Tylenol Liquid) 650 mg Q6H PRN PO PAIN LEVEL 1-3 OR FEVER; Start 07/01/18 at 00:00 Morphine Sulfate (morphine) 2 mg Q4H PRN IV PAIN LEVEL 7-10 Last administered on 07/05/18at 22:10; Admin Dose 2 MG; Start 07/01/18 at 00:00 Docusate Sodium (Colace) 100 mg Q12H PRN PO CONSTIPATION; Start 07/01/18 at 00:00 Magnesium Hydroxide (Milk Of Mag) 30 ml DAILY PRN PO CONSTIPATION; Start 04/09 at 00:00 Atorvastatin Calcium (Lipitor) 80 mg QHS GTB Last administered on 07/05/18at 20:30; Admin Dose 80 MG; Start 07/01/18 at 21:00 Bisacodyl (Dulcolax Supp) 10 mg Q24H PRN [place] NEEDED; Start 07/01/18 at 00:00 Carvedilol (Coreg) 3.125 mg BID GTB Last administered on 07/06/18at 09:26; Admin Dose 3.125 MG; Start 07/01/18 at 09:00 Valproate Sodium (Depakene Liquid Cup) 500 mg Q8H GTB Last administered on 07/06/18at 09:17; Admin Dose 500 MG; Start 07/01/18 at 00:00 Insulin Aspart (Novolog Insulin Pen) NOVOLOG *MILD* ALGORITHM Q6 SC Last administered on 07/02/18at 17:58; Admin Dose 1 UNIT; Start 07/01/18 at 00:00 Miscellaneous Information 1 ea NOTE XX ; Start 07/01/18 at 00:30 Glucose (Glutose) 15 gm Q15M PRN PO DECREASED GLUCOSE; Start 07/01/18 at 00:30 Glucose (Glutose) 22.5 gm Q15M PRN PO DECREASED GLUCOSE; Start 07/01/18 at 00:30 Dextrose (D50w Syringe) 25 ml Q15M PRN IV DECREASED GLUCOSE; Start 07/01/18 at 00:30 Dextrose (D50w Syringe) 50 ml Q15M PRN IV DECREASED GLUCOSE; Start 07/01/18 at 00:30 Glucagon (Glucagen) 1 mg Q15M PRN IM DECREASED GLUCOSE; Start 07/01/18 at 00:30 Glucose (Glutose) 15 gm Q15M PRN BUCCAL DECREASED GLUCOSE; Start 07/01/18 at 00:30 Aspirin (Aspirin) 162 mg DAILY PEG Last administered on 07/06/18at 09:27; Admin Dose 162 MG; Start 07/01/18 at 12:30 IV Flush (NS 10 ml) 10 ml PRN PRN IV FLUSH LINE; Start 07/02/18 at 14:00 Furosemide (Lasix) 20 mg DAILY IV Last administered on 07/06/18 09:26; Admin Dose 20 MG; Start 07/04/18 at 09:00 Benazepril HCl (Lotensin) 10 mg BID PO Last administered on 07/06/18 09:27; Admin Dose 10 MG; Start 07/03/18 at 21:00 Cefepime HCl 50 ml @ 100 mls/hr Q12 IVPB Last administered on 07/06/18 09:17; Admin Dose 100 MLS/HR; Start 07/04/18 at 21:00 Insulin Human NPH (Humulin N) 20 unit Q8H SC Last administered on 07/05/18 16:43; Admin Dose 20 UNIT; Start 07/05/18 at 16:00 Lansoprazole (Prevacid) 30 mg DAILY@06 GTB Last administered on 07/06/18 05:55; Admin Dose 30 MG; Start 07/06/18 at 06:00 Haloperidol (Haldol) 5 mg Q4 PRN IV AGITATION Last administered on 07/05/18 22:28; Admin Dose 5 MG; Start 07/05/18 at 22:30 Enoxaparin Sodium (Lovenox) 40 mg DAILY SC Last administered on 07/06/18 09 :20; Admin Dose 40 MG; Start 07/06/18 at 09:00 Vancomycin HCl (Vanco Iv Per Pharmacy) VANCOMYCIN PER PHARMACY PER PROTOCOL XX ; Start 07/06/18 at 09:00 Vancomycin HCl 1.25 gm/Sodium Chloride 250 ml @ 83.333 mls/ hr Q12H IVPB Last administered on 07/06/18 10:58; Admin Dose 83.333 MLS/HR; Start 07/06/18 at 11:00 SETH AVENDANO Jul 06, 2018 12:44
--- NOTE | 2018-07-06 14:50 | CONS ---
Date/Time of Note Date/Time of Note DATE: 07/06/18 TIME: 14:49 Assessment/Plan Assessment/Plan Hospital Course Patient was transferred to ICU secondary to respiratory distress status post bronchoscopy this morning. He is noncommunicative in no distress and afebrile WBC 17.1 platelets 307 neutrophils 82.5 BUN 13 creatinine 0.89 Chest x-ray yesterday revealed extensive right lung consolidation suspicious for pneumonia Antimicrobials: Vancomycin, cefepime Microbiology: Urine culture grew Enterobacter erogenous, blood cultures negative Indwelling's: Trach PEG Nelson left upper extremity PICC line Physical examination: This is a chronically ill-appearing middle-aged man who is nonresponsive the patient is in no distress head with evidence of right-sided cranial bone removal, sclera nonicteric neck is supple tracheostomy present chest rise symmetrical breath sounds clear, diminished bases. Heart: S1-S2. A bdomen soft, bowel sounds present. Extremities mottled without edema Assessment: 1. Status post septic shock 2. Healthcare associated pneumonia, possibly aspirated 3. Recurrent UTI 4. Chronic respiratory failure 5. History of intracranial hemorrhage status post craniotomy 6. Cardiomyopathy and history of PTCA 7. Diabetes and hypertension 8. Anemia Plan: Hemodynamically stable, continue antibiotics, cardiology and pulmonary recommendations, follow BAL cultures Result Diagram: 07/06/18 0400 07/06/18 0400 Results 24hrs Laboratory Tests Test 07/05/18 16:37 07/05/18 17:46 07/05/18 21:22 07/05/18 21:25 Bedside Glucose 93 119 94 Blood Gas Blood arterial Specimen Source Arterial Blood 07/05/2018 9:30: Date Drawn 47 PM Arterial Blood 7.442 pH (Temp corrected) Arterial Blood 40.2 pCO2 (Temp correct) Arterial Blood 47.6 *L pO2 (Temp corrected) Arterial Blood 26.8 H HCO3 Arterial Blood 2.5 Base Excess Arterial Blood 84.4 L Oxygen Saturatio n Rl Test ACCEPTAB Arterial Blood Right Radial Gas Puncture Site Arterial 0.1 Blood Carboxyhem oglobin Arterial Blood 0.3 Methemoglobin Blood Gas A-a O2 625.2 H Differential Oxyhemoglobin 84.1 L Percent Blood Gas 37.0 Temperature Blood Gas 16.0 Respiration Rate Blood Gas VENT - AC Modality FiO2 100.0 Blood Gas Tidal 500.0 Volume Blood Gas Low 5.0 PEEP Setting Blood Gas NAVJOT DE Critical Value RN Read Back Blood Gas BR Notified Whom Blood Gas 07/05/2018 9:37: Notified Time 26 PM Test 07/06/18 00:25 07/06/18 00:29 07/06/18 04:00 07/06/18 07:49 Blood Gas Blood arterial Specimen Source Arterial Blood 07/06/2018 12:30 Date Drawn :14 AM Arterial Blood 7.443 pH (Temp corrected) Arterial Blood 39.6 pCO2 (Temp correct) Arterial Blood 156.3 H pO2 (Temp corrected) Arterial Blood 26.5 H HCO3 Arterial Blood 2.3 Base Excess Arterial Blood 98.9 H Oxygen Saturatio n Rl Test ACCEPTAB Arterial Blood Right Radial Gas Puncture Site Arterial 0.1 Blood Carboxyhem oglobin Arterial Blood 0.4 Methemoglobin Blood Gas A-a O2 444.8 H Differential Oxyhemoglobin 98.4 Percent Blood Gas 37.0 Temperature Blood Gas 16.0 Respiration Rate Blood Gas Actual 25 Respiration Rate Blood Gas VENT - AC Modality FiO2 90.0 Blood Gas Tidal 500.0 Volume Blood Gas High 5.0 PEEP Setting Blood Gas M Jacob RCO Notified Whom Blood Gas 07/06/2018 12:35 Notified Time :31 AM Bedside Glucose 77 80 White Blood 17.1 #H Count Red Blood Count 3.46 #L Hemoglobin 9.0 L Hematocrit 28.4 L Mean Corpuscular 82.1 Volume Mean Corpuscular 26.0 L Hemoglobin Mean Corpuscular 31.7 L Hemoglobin Dolores nt Red Cell 15.7 H Distribution Width Platelet Count 307 # Mean Platelet 10.5 H Volume Immature 0.500 H Granulocytes % Neutrophils % 82.5 H Lymphocytes % 9.7 L Monocytes % 6.5 Eosinophils % 0.5 Basophils % 0.3 Nucleated Red 0.0 Blood Cells % Immature 0.090 H Granulocytes # Neutrophils # 14.1 H Lymphocytes # 1.7 Monocytes # 1.1 H Eosinophils # 0.1 Basophils # 0.1 Nucleated Red 0.0 Blood Cells # Sodium Level 135 Potassium Level 4.2 Chloride Level 101 Carbon Dioxide 30 Level Anion Gap 4 L Blood Urea 13 Nitrogen Creatinine 0.89 Est Glomerular > 60 Filtrat Rate mL/min Glucose Level 81 Calcium Level 8.6 Test 07/06/18 12:09 Bedside Glucose 108 Consultation Date/Type/Reason Admit Date/Time Jun 30, 2018 at 16:55 Initial Consult Date Type of Consult id Requesting Provider: NIA DOMINGO MD Exam/Review of Systems Vital Signs Vitals Vital Signs Date Temp Pulse Resp B/P (MAP) Pulse Ox O2 O2 Flow FiO2 Time Delivery Rate 07/06/18 101/67 12:51 (78) 07/06/18 59 12:00 07/06/18 97.6 15 100 12:00 07/06/18 50 08:30 07/06/18 Mechanical 06:00 Ventilator Intake and Output 07/05/18 07/05/18 07/06/18 1515:00 23:00 07:00 IntakeIntake Total 1050 ml 1745 ml 250 ml OutputOutput Total 3500 ml 975 ml BalanceBalance 1050 ml -1755 ml -725 ml Medications Medications Current Medications IV Flush (NS 3 ml) 3 ml PER PROTOCOL IV ; Start 07/01/18 at 00:00 Ondansetron HCl (Zofran Inj) 4 mg Q6H PRN IV NAUSEA AND/OR VOMITING; Start 07/01/18 at 00:00 Albuterol (Proventil 0.083% (Neb)) 2.5 mg Q2H RESP THERAPY PRN NEB SHORTNESS OF BREATH; Start 07/01/18 at 00:00 Ipratropium [place] (Atrovent 0.02% (Neb)) 0.5 mg Q2H RESP THERAPY PRN NEB SHORTNESS OF BREATH; Start 07/01/18 at 00:00 Acetaminophen (Tylenol Liquid) 650 mg Q6H PRN PO PAIN LEVEL 1-3 OR FEVER; Start 07/01/18 at 00:00 Morphine Sulfate (morphine) 2 mg Q4H PRN IV PAIN LEVEL 7-10 Last administered on 07/05/18at 22:10; Admin Dose 2 MG; Start 07/01/18 at 00:00 Docusate Sodium (Colace) 100 mg Q12H PRN PO CONSTIPATION; Start 07/01/18 at 00:00 Magnesium Hydroxide (Milk Of Mag) 30 ml DAILY PRN PO CONSTIPATION; Start 07/01/18 at 00:00 Atorvastatin Calcium (Lipitor) 80 mg QHS GTB Last administered on 07/05/18at 20:30; Admin Dose 80 MG; Start 07/01/18 at 21:00 Bisacodyl (Dulcolax Supp) 10 mg Q24H PRN [place] NEEDED; Start 07/01/18 at 00:00 Carvedilol (Coreg) 3.125 mg BID GTB Last administered on 07/06/18at 09:26; Admin Dose 3.125 MG; Start 07/01/18 at 09:00 Valproate Sodium (Depakene Liquid Cup) 500 mg Q8H GTB Last administered on 07/06/18at 09:17; Admin Dose 500 MG; Start 07/01/18 at 00:00 Insulin Aspart (Novolog Insulin Pen) NOVOLOG *MILD* ALGORITHM Q6 SC Last administered on 07/02/18at 17:58; Admin Dose 1 UNIT; Start 07/01/18 at 00:00 Miscellaneous Information 1 ea NOTE XX ; Start 07/01/18 at 00:30 Glucose (Glutose) 15 gm Q15M PRN PO DECREASED GLUCOSE; Start 07/01/18 at 00:30 Glucose (Glutose) 22.5 gm Q15M PRN PO DECREASED GLUCOSE; Start 07/01/18 at 00 :30 Dextrose (D50w Syringe) 25 ml Q15M PRN IV DECREASED GLUCOSE; Start 07/01/18 at 00:30 Dextrose (D50w Syringe) 50 ml Q15M PRN IV DECREASED GLUCOSE; Start 07/01/18 at 00:30 Glucagon (Glucagen) 1 mg Q15M PRN IM DECREASED GLUCOSE; Start 07/01/18 at 00:30 Glucose (Glutose) 15 gm Q15M PRN BUCCAL DECREASED GLUCOSE; Start 07/01/18 at 00:30 Aspirin (Aspirin) 162 mg DAILY PEG Last administered on 07/06/18at 09:27; Admin Dose 162 MG; Start 07/01/18 at 12:30 IV Flush (NS 10 ml) 10 ml PRN PRN IV FLUSH LINE; Start 07/02/18 at 14:00 Furosemide (Lasix) 20 mg DAILY IV Last administered on 07/06/18at 09:26; Admin Dose 20 MG; Start 07/04/18 at 09:00 Benazepril HCl (Lotensin) 10 mg BID PO Last administered on 07/06/18at 09:27; Admin Dose 10 MG; Start 07/03/18 at 21:00 Cefepime HCl 50 ml @ 100 mls/hr Q12 IVPB Last administered on 07/06/18 09:17; Admin Dose 100 MLS/HR; Start 07/04/18 at 21:00 Insulin Human NPH (Humulin N) 20 unit Q8H SC Last administered on 07/05/18 16:43; Admin Dose 20 UNIT; Start 07/05/18 at 16:00 Lansoprazole (Prevacid) 30 mg DAILY@06 GTB Last administered on 07/06/18 05 :55; Admin Dose 30 MG; Start 07/06/18 at 06:00 Haloperidol (Haldol) 5 mg Q4 PRN IV AGITATION Last administered on 07/05/18 22:28; Admin Dose 5 MG; Start 07/05/18 at 22:30 Enoxaparin Sodium (Lovenox) 40 mg DAILY SC Last administered on 07/06/18 09:20; Admin Dose 40 MG; Start 07/06/18 at 09:00 Vancomycin HCl (Vanco Iv Per Pharmacy) VANCOMYCIN PER PHARMACY PER PROTOCOL XX ; Start 07/06/18 at 09:00 Vancomycin HCl 1.25 gm/Sodium Chloride 250 ml @ 83.333 mls/ hr Q12H IVPB Last administered on 07/06/18at 10:58; Admin Dose 83.333 MLS/HR; Start 07/06/18 at 11:00 SANDER AMADOR NP Jul 06, 2018 14:50
[2018-07-06] MEDS: ATORVASTATIN 80 MG TAB GTB SCH (21:44)
[2018-07-07] VITALS (30 sets, daily range): BP systolic 95–174; BP diastolic 57–79; PULSE 52–63; RESP 16–30
[2018-07-07] MEDS: INSULIN ASPART [NOVOLOG] 3 ML PEN SC SCH ×3 (06:00→18:00)
[2018-07-07] MEDS: LANSOPRAZOLE 30 MG CAP GTB SCH (06:09)
[2018-07-07] MEDS: ENOXAPARIN 40 MG/0.4 ML SYG SC SCH (08:55)
[2018-07-07] MEDS: NPH, HUMAN INSULIN ISOPHANE 3ML VIAL SC SCH ×2 (08:55→16:43)
[2018-07-07] MEDS: VALPROIC ACID LIQUID CUP 250 MG/5 ML CUP GTB SCH ×2 (08:56→16:34)
[2018-07-07] MEDS: CEFEPIME 1GM/50 ML (PMX) 50 ML IVPB SCH ×2 (08:57→21:54)
[2018-07-07] MEDS: FUROSEMIDE 20 MG INJ IV SCH (09:03)
[2018-07-07] MEDS: BENAZEPRIL 10 MG TAB PO SCH ×2 (09:06→21:55)
[2018-07-07] MEDS: ASPIRIN 81 MG TAB PEG SCH (09:06)
--- NOTE | 2018-07-07 09:17 | CONS ---
Date/Time of Note Date/Time of Note DATE: 07/07/18 TIME: 09:15 Assessment/Plan Assessment/Plan Assessment/Plan Chest x-ray was reviewed from today which is showing improving right lung infiltrate. There is improvement in atelectasis as well. Ventilator setting; AC of 16, tidal volume 500, PEEP of 5, 30% FiO2. Assessment recommendations; 1. Patient with history of chronic severe encephalopathy and VDR F admitted for sepsis and pneumonia with significant interval clinical and radiological improvement. 2. Status post bronchoscopy yesterday. 3. Stable seizure disorder. 4. Anemia. 5. History of hypertension. 6. Mild CHF. 7. UTI. Continue current supportive care. Consider transfer to telemetry unit. Overall prognosis is poor. Result Diagram: 07/07/18 0310 07/07/18 0310 Results 24hrs Laboratory Tests Test 07/06/18 12:09 07/06/18 17:16 07/06/18 23:36 07/07/18 03:10 Bedside Glucose 108 120 141 White Blood Count 6.9 # Red Blood Count 3.13 L Hemoglobin 8.0 L Hematocrit 25.8 L Mean Corpuscular 82.4 Volume Mean Corpuscular 25.6 L Hemoglobin Mean Corpuscular 31.0 L Hemoglobin Concent Red Cell 16.3 H Distribution Width Platelet Count 288 Mean Platelet Volume 11.0 H Immature 0.600 H Granulocytes % Neutrophils % 62.5 Lymphocytes % 21.6 Monocytes % 10.8 Eosinophils % 4.2 Basophils % 0.3 Nucleated Red Blood 0.0 Cells % Immature 0.040 H Granulocytes # Neutrophils # 4.3 Lymphocytes # 1.5 Monocytes # 0.8 Eosinophils # 0.3 Basophils # 0.0 Nucleated Red Blood 0.0 Cells # Sodium Level 134 L Potassium Level 3.8 Chloride Level 100 Carbon Dioxide Level 29 Anion Gap 5 Blood Urea Nitrogen 22 H Creatinine 0.67 Est Glomerular > 60 Filtrat Rate mL/min Glucose Level 146 # Calcium Level 8.6 Test 07/07/18 06:04 07/07/18 08:52 Bedside Glucose 132 124 Consultation Date/Type/Reason Admit Date/Time Jun 30, 2018 at 16:55 Initial Consult Date Type of Consult Pulmonary/critical care Requesting Provider: NIA DOMINGO MD 24 HR Interval Summary Free Text/Dictation Patient's condition remains critical but stable. Has remained hemodynamically stable. General exam; middle-aged male, on ventilator via tracheostomy, unresponsive, currently in no distress. Exam/Review of Systems Vital Signs Vitals Vital Signs Date Temp Pulse Resp B/P (MAP) Pulse Ox O2 O2 Flow FiO2 Time Delivery Rate 07/07/18 58 19 113/69 100 Mechanical 06:00 (84) Ventilator 07/07/18 30 05:00 07/07/18 98.1 04:00 Intake and Output 07/06/18 07/06/18 07/07/18 1414:59 22:59 06:59 IntakeIntake Total 930 ml 580 ml OutputOutput Total 400 ml 335 ml 370 ml BalanceBalance -400 ml 595 ml 210 ml Exam HEENT exam; supple neck, no JVD. No lymphadenopathy. Midline trachea. No thyromegaly. Tracheostomy in place. There is a left parietal skull depression. Patient has fair dentition. Pupils are midsize bilaterally. Chest exam; diminished but clear breath sounds. S1-S2 audible, no murmurs. Regular rhythm. Abdomen exam; soft, no organomegaly. G-tube in place. Bowel sounds audible. Extremity exam; no edema or clubbing. Pulses 1+. FITNESS COORDINATOR exam; patient remains unresponsive. Medications Medications Current Medications IV Flush (NS 3 ml) 3 ml PER PROTOCOL IV ; Start 07/01/18 at 00:00 Ondansetron HCl (Zofran Inj) 4 mg Q6H PRN IV NAUSEA AND/OR VOMITING; Start 07/01/18 at 00:00 Albuterol (Proventil 0.083% (Neb)) 2.5 mg Q2H RESP THERAPY PRN NEB SHORTNESS OF BREATH; Start 07/01/18 at 00:00 Ipratropium [place] (Atrovent 0.02% (Neb)) 0.5 mg Q2H RESP THERAPY PRN NEB SHORTNESS OF BREATH; Start 07/01/18 at 00:00 Acetaminophen (Tylenol Liquid) 650 mg Q6H PRN PO PAIN LEVEL 1-3 OR FEVER; Start 07/01/18 at 00:00 Morphine Sulfate (morphine) 2 mg Q4H PRN IV PAIN LEVEL 7-10 Last administered on 07/05/18at 22:10; Admin Dose 2 MG; Start 07/01/18 at 00:00 Docusate Sodium (Colace) 100 mg Q12H PRN PO CONSTIPATION; Start 07/01/18 at 00:00 Magnesium Hydroxide (Milk Of Mag) 30 ml DAILY PRN PO CONSTIPATION; Start 07/01/18 at 00:00 Atorvastatin Calcium (Lipitor) 80 mg QHS GTB Last administered on 07/06/18at 21:44; Admin Dose 80 MG; Start 07/01/18 at 21:00 Bisacodyl (Dulcolax Supp) 10 mg Q24H PRN [place] NEEDED; Start 07/01/18 at 00:00 Carvedilol (Coreg) 3.125 mg BID GTB Last administered on 07/06/18at 21:42; Admin Dose 3.125 MG; Start 07/01/18 at 09:00 Valproate Sodium (Depakene Liquid Cup) 500 mg Q8H GTB Last administered on 07/07/18at 08:56; Admin Dose 500 MG; Start 07/01/18 at 00:00 Insulin Aspart (Novolog Insulin Pen) NOVOLOG *MILD* ALGORITHM Q6 SC Last administered on 07/02/18at 17:58; Admin Dose 1 UNIT; Start 07/01/18 at 00:00 Miscellaneous Information 1 ea NOTE XX ; Start 07/01/18 at 00:30 Glucose (Glutose) 15 gm Q15M PRN PO DECREASED GLUCOSE; Start 07/01/18 at 00:30 Glucose (Glutose) 22.5 gm Q15M PRN PO DECREASED GLUCOSE; Start 07/01/18 at 00:30 Dextrose (D50w Syringe) 25 ml Q15M PRN IV DECREASED GLUCOSE; Start 07/01/18 at 00:30 Dextrose (D50w Syringe) 50 ml Q15M PRN IV DECREASED GLUCOSE; Start 07/01/18 at 00:30 Glucagon (Glucagen) 1 mg Q15M PRN IM DECREASED GLUCOSE; Start 07/01/18 at 00:30 Glucose (Glutose) 15 gm Q15M PRN BUCCAL DECREASED GLUCOSE; Start 07/01/18 at 00:30 Aspirin (Aspirin) 162 mg DAILY PEG Last administered on 07/07/18at 09:06; Admin Dose 162 MG; Start 07/01/18 at 12:30 IV Flush (NS 10 ml) 10 ml PRN PRN IV FLUSH LINE; Start 07/02/18 at 14:00 Furosemide (Lasix) 20 mg DAILY IV Last administered on 07/07/18 09:03; Admin Dose 20 MG; Start 07/04/18 at 09:00 Benazepril HCl (Lotensin) 10 mg BID PO Last administered on 07/07/18 09:06; Admin Dose 10 MG; Start 07/03/18 at 21:00 Cefepime HCl 50 ml @ 100 mls/hr Q12 IVPB Last administered on 07/07/18 08:57; Admin Dose 100 MLS/HR; Start 07/04/18 at 21:00 Insulin Human NPH (Humulin N) 20 unit Q8H SC Last administered on 07/07/18 08:55; Admin Dose 20 UNIT; Start 07/05/18 at 16:00 Lansoprazole (Prevacid) 30 mg DAILY@06 GTB Last administered on 07/07/18 06:09; Admin Dose 30 MG; Start 07/06/18 at 06:00 Haloperidol (Haldol) 5 mg Q4 PRN IV AGITATION Last administered on 07/05/18 22:28; Admin Dose 5 MG; Start 07/05/18 at 22:30 Enoxaparin Sodium (Lovenox) 40 mg DAILY SC Last administered on 07/07/18 08:55; Admin Dose 40 MG; Start 07/06/18 at 09:00 Vancomycin HCl (Vanco Iv Per Pharmacy) VANCOMYCIN PER PHARMACY PER PROTOCOL XX ; Start 07/06/18 at 09:00 Vancomycin HCl 1.25 gm/Sodium Chloride 250 ml @ 83.333 mls/ hr Q12H IVPB Last administered on 07/06/18 23:19; Admin Dose 83.333 MLS/HR; Start 07/06/18 at 1 1:00 MER CHRIS Jul 07, 2018 09:17
--- NOTE | 2018-07-07 11:29 | CONS ---
Date/Time of Note Date/Time of Note DATE: 07/07/18 TIME: 11:25 Assessment/Plan Assessment/Plan Hospital Course IMPRESSION: 1. Hypotension/shock state and likely septic.- now off levophed and tolerating BB/ACEI 2. Cardiomyopathy with decreased left ventricular ejection fraction, last known to be 30% by echo in 01/2018.-neg trop x 3 3. History of prior percutaneous transluminal coronary angioplasty and stent placements, most recently to LAD in 2014. 4. Urinary tract infection, likely urosepsis. 5. Diabetes mellitus. 6. Chronic respiratory failure, status post tracheostomy. 7. Dysphagia, status post G-tube. 8. Chronic encephalopathy. 9. Leukocytosis. 10. History of hemorrhagic cerebrovascular accident. 11.NSVT Recc: -Now back in icu -Continue BB/ACEI and follow BP closely -Follow volume status clsoely -F/U cx data and continue cefepime -Continue gentle lasix diuresis -Continue asa -s/p bronchoscopy Result Diagram: 07/07/18 0310 07/07/18 0310 Results 24hrs Laboratory Tests Test 07/06/18 12:09 07/06/18 17:16 07/06/18 23:36 07/07/18 03:10 Bedside Glucose 108 120 141 White Blood Count 6.9 # Red Blood Count 3.13 L Hemoglobin 8.0 L Hematocrit 25.8 L Mean Corpuscular 82.4 Volume Mean Corpuscular 25.6 L Hemoglobin Mean Corpuscular 31.0 L Hemoglobin Concent Red Cell 16.3 H Distribution Width Platelet Count 288 Mean Platelet Volume 11.0 H Immature 0.600 H Granulocytes % Neutrophils % 62.5 Lymphocytes % 21.6 Monocytes % 10.8 Eosinophils % 4.2 Basophils % 0.3 Nucleated Red Blood 0.0 Cells % Immature 0.040 H Granulocytes # Neutrophils # 4.3 Lymphocytes # 1.5 Monocytes # 0.8 Eosinophils # 0.3 Basophils # 0.0 Nucleated Red Blood 0.0 Cells # Sodium Level 134 L Potassium Level 3.8 Chloride Level 100 Carbon Dioxide Level 29 Anion Gap 5 Blood Urea Nitrogen 22 H Creatinine 0.67 Est Glomerular > 60 Filtrat Rate mL/min Glucose Level 146 # Calcium Level 8.6 Test 07/07/18 06:04 07/07/18 08:52 Bedside Glucose 132 124 Consultation Date/Type/Reason Admit Date/Time Jun 30, 2018 at 16:55 Initial Consult Date 06/30/18 Type of Consult cardiology Reason for Consultation CHF Requesting Provider: NIA DOMINGO MD Exam/Review of Systems Vital Signs Vitals Vital Signs Date Temp Pulse Resp B/P (MAP) Pulse Ox O2 O2 Flow FiO2 Time Delivery Rate 07/07/18 58 16 95/57 (70) 100 Mechanical 11:00 Ventilator 07/07/18 98.3 08:00 07/07/18 30 05:00 Intake and Output 07/06/18 07/06/18 07/07/18 1515:00 23:00 07:00 IntakeIntake Total 990 ml 830 ml OutputOutput Total 400 ml 415 ml 340 ml BalanceBalance -400 ml 575 ml 490 ml Exam Review of Systems: CONSTITUTIONAL: No fevers, chills. PULMONARY: trached CARDIOVASCULAR: No chest pain/palpitations GASTROINTESTINAL: No nausea/vomiting. GENITOURINARY: No hematuria/dysuria. MUSCULOSKELETAL: No myagias/arthalgias. PSYCHIATRIC: The patient denies depression. NEUROLOGIC:encephalopathic Constitutional: other (encephalopathy) Psych: no complaints Head: normocephalic ENMT: other (trached) Neck: supple, jvd (9 cm water) Respiratory: diminished breath sounds (at bases/B) Cardiovascular: regular rate and rhythm Gastrointestinal: soft, non-tender Musculoskeletal: muscle weakness (generalized) Extremities: edema (none) Neurological: other (encephalopathy) Medications Medications Current Medications IV Flush (NS 3 ml) 3 ml PER PROTOCOL IV ; Start 07/01/18 at 00:00 Ondansetron HCl (Zofran Inj) 4 mg Q6H PRN IV NAUSEA AND/OR VOMITING; Start 07/01/18 at 00:00 Albuterol (Proventil 0.083% (Neb)) 2.5 mg Q2H RESP THERAPY PRN NEB SHORTNESS OF BREATH; Start 07/01/18 at 00:00 Ipratropium [place] (Atrovent 0.02% (Neb)) 0.5 mg Q2H RESP THERAPY PRN NEB SHORTNESS OF BREATH; Start 07/01/18 at 00:00 Acetaminophen (Tylenol Liquid) 650 mg Q6H PRN PO PAIN LEVEL 1-3 OR FEVER; Start 07/01/18 at 00:00 Morphine Sulfate (morphine) 2 mg Q4H PRN IV PAIN LEVEL 7-10 Last administered on 07/05/18at 22:10; Admin Dose 2 MG; Start 07/01/18 at 00:00 Docusate Sodium (Colace) 100 mg Q12H PRN PO CONSTIPATION; Start 07/01/18 at 00:00 Magnesium Hydroxide (Milk Of Mag) 30 ml DAILY PRN PO CONSTIPATION; Start 07/01/18 at 00:00 Atorvastatin Calcium (Lipitor) 80 mg QHS GTB Last administered on 07/06/18at 21:44; Admin Dose 80 MG; Start 07/01/18 at 21:00 Bisacodyl (Dulcolax Supp) 10 mg Q24H PRN NE NEEDED; Start 07/01/18 at 00:00 Carvedilol (Coreg) 3.125 mg BID GTB Last administered on 07/06/18at 21:42; Admin Dose 3.125 MG; Start 07/01/18 at 09:00 Valproate Sodium (Depakene Liquid Cup) 500 mg Q8H GTB Last administered on 07/07at 08:56; Admin Dose 500 MG; Start 07/01/18 at 00:00 Insulin Aspart (Novolog Insulin Pen) NOVOLOG *MILD* ALGORITHM Q6 SC Last administered on 07/02/18at 17:58; Admin Dose 1 UNIT; Start 07/01/18 at 00:00 Miscellaneous Information 1 ea NOTE XX ; Start 07/01/18 at 00:30 Glucose (Glutose) 15 gm Q15M PRN PO DECREASED GLUCOSE; Start 07/01/18 at 00:30 Glucose (Glutose) 22.5 gm Q15M PRN PO DECREASED GLUCOSE; Start 07/01/18 at 00:30 Dextrose (D50w Syringe) 25 ml Q15M PRN IV DECREASED GLUCOSE; Start 07/01/18 at 00:30 Dextrose (D50w Syringe) 50 ml Q15M PRN IV DECREASED GLUCOSE; Start 07/01/18 at 00:30 Glucagon (Glucagen) 1 mg Q15M PRN IM DECREASED GLUCOSE; Start 07/01/18 at 00:30 Glucose (Glutose) 15 gm Q15M PRN BUCCAL DECREASED GLUCOSE; Start 07/01/18 at 00:30 Aspirin (Aspirin) 162 mg DAILY PEG Last administered on 07/07/18 09:06; Admin Dose 162 MG; Start 07/01/18 at 12:30 IV Flush (NS 10 ml) 10 ml PRN PRN IV FLUSH LINE; Start 07/02/18 at 14:00 Furosemide (Lasix) 20 mg DAILY IV Last administered on 07/07/18 09:03; Admin Dose 20 MG; Start 07/04/18 at 09:00 Benazepril HCl (Lotensin) 10 mg BID PO Last administered on 07/07/18 09:06; Admin Dose 10 MG; Start 07/03/18 at 21:00 Cefepime HCl 50 ml @ 100 mls/hr Q12 IVPB Last administered on 07/07/18 08:57; Admin Dose 100 MLS/HR; Start 07/04/18 at 21:00 Insulin Human NPH (Humulin N) 20 unit Q8H SC Last administered on 07/07/18 08:55; Admin Dose 20 UNIT; Start 07/05/18 at 16:00 Lansoprazole (Prevacid) 30 mg DAILY@06 GTB Last administered on 07/07/18 06:09; Admin Dose 30 MG; Start 07/06/18 at 06:00 Haloperidol (Haldol) 5 mg Q4 PRN IV AGITATION Last administered on 07/05/18 22:28; Admin Dose 5 MG; Start 07/05/18 at 22:30 Enoxaparin Sodium (Lovenox) 40 mg DAILY SC Last administered on 07/07/18 08:55; Admin Dose 40 MG; Start 07/06/18 at 09:00 Vancomycin HCl (Vanco Iv Per Pharmacy) VANCOMYCIN PER PHARMACY PER PROTOCOL XX ; Start 07/06/18 at 09:00 Vancomycin HCl 1.25 gm/Sodium Chloride 250 ml @ 83.333 mls/ hr Q12H IVPB Last administered on 07/06/18 23:19; Admin Dose 83.333 MLS/HR; Start 07/06/18 at 11:00 MAE ROSALES Jul 07, 2018 11:29
[2018-07-07] MEDS: VANCOMYCIN HCL 1.25 GM in SOD CHLORIDE 0.9% 250 ML IVPB SCH (11:59)
--- NOTE | 2018-07-07 12:38 | PN ---
Date/Time of Note Date/Time of Note DATE: 07/07/18 TIME: 12:36 Assessment/Plan VTE Prophylaxis Risk score (from Ns)>0 risk: 11 SCD applied (from Ns): Yes Pharmacological prophylaxis: LMWH Lines/Catheters IV Catheter Type (from Nrs): PICC Line Central line still needed: Yes Urinary Cath still in place: Yes Reason Cath still needed: urinary retention Assessment/Plan Hospital Course Patient continues on ventilatory support without distress no episodes of desaturation continues to have moderate amount of secretions from the ET tube, stable for transfer to telemetry floor Assessment/Plan -Lung atelectasis, status post bronchoscopy by Dr. Wall on 07/06/2018. -Sepsis most likely secondary to HCAP and urinary tract infection, f/up on urine and blood cultures. Continue broad-spectrum antibiotics. Dr. Hodge is fo llowing in infection disease consultation. -Septic shock, resolving. -ARF, continue ventilatory support. Dr Mitchell is following in pulmonology consultation. -Chronic tracheostomy -Dysphagia with PEG -Coronary artery disease status post stent placement to LAD and RCA. Dr. Vincent is following in cardiology consultation. -Cardiomyopathy with ejection fraction of 25-30% -Hypertension -Diabetes -Morbid obesity -Chronic encephalopathy Further recommendations based on clinical course. Plan of care discussed with Dr. Cortez. Result Diagram: 07/07/18 0310 07/07/18 0310 Results 24hrs Laboratory Tests Test 07/06/18 17:16 07/06/18 23:36 07/07/18 03:10 07/07/18 06:04 Bedside Glucose 120 141 132 White Blood Count 6.9 # Red Blood Count 3.13 L Hemoglobin 8.0 L Hematocrit 25.8 L Mean Corpuscular 82.4 Volume Mean Corpuscular 25.6 L Hemoglobin Mean Corpuscular 31.0 L Hemoglobin Concent Red Cell 16.3 H Distribution Width Platelet Count 288 Mean Platelet Volume 11.0 H Immature 0.600 H Granulocytes % Neutrophils % 62.5 Lymphocytes % 21.6 Monocytes % 10.8 Eosinophils % 4.2 Basophils % 0.3 Nucleated Red Blood 0.0 Cells % Immature 0.040 H Granulocytes # Neutrophils # 4.3 Lymphocytes # 1.5 Monocytes # 0.8 Eosinophils # 0.3 Basophils # 0.0 Nucleated Red Blood 0.0 Cells # Sodium Level 134 L Potassium Level 3.8 Chloride Level 100 Carbon Dioxide Level 29 Anion Gap 5 Blood Urea Nitrogen 22 H Creatinine 0.67 Est Glomerular > 60 Filtrat Rate mL/min Glucose Level 146 # Calcium Level 8.6 Test 07/07/18 08:52 07/07/18 12:02 Bedside Glucose 124 124 Exam/Review of Systems Vital Signs Vitals Vital Signs Date Temp Pulse Resp B/P (MAP) Pulse Ox O2 O2 Flow FiO2 Time Delivery Rate 07/07/18 97.3 58 20 119/69 100 Mechanical 12:00 (86) Ventilator 07/07/18 30 08:00 Intake and Output 07/06/18 07/06/18 07/07/18 1414:59 22:59 06:59 IntakeIntake Total 930 ml 580 ml OutputOutput Total 400 ml 335 ml 370 ml BalanceBalance -400 ml 595 ml 210 ml Exam Constitutional: non-verbal Head: other (Status post right craniectomy) Neck: supple, other (Tracheostomy at the base of the neck, no bleeding) Respiratory: diminished breath sounds Cardiovascular: regular rate and rhythm Gastrointestinal: soft, non-tender, other (G-tube) Extremities: normal pulses Neurological: other (Nonverbal, did not response to any verbal stimuli, spontaneous movement of the extremities) Skin: nl turgor Medications Medications Current Medications IV Flush (NS 3 ml) 3 ml PER PROTOCOL IV ; Start 07/01/18 at 00:00 Ondansetron HCl (Zofran Inj) 4 mg Q6H PRN IV NAUSEA AND/OR VOMITING; Start 07/01/18 at 00:00 Albuterol (Proventil 0.083% (Neb)) 2.5 mg Q2H RESP THERAPY PRN NEB SHORTNESS OF BREATH; Start 07/01/18 at 00:00 Ipratropium [place] (Atrovent 0.02% (Neb)) 0.5 mg Q2H RESP THERAPY PRN NEB SHORTNESS OF BREATH; Start 07/01/18 at 00:00 Acetaminophen (Tylenol Liquid) 650 mg Q6H PRN PO PAIN LEVEL 1-3 OR FEVER; Start 07/01/18 at 00:00 Morphine Sulfate (morphine) 2 mg Q4H PRN IV PAIN LEVEL 7-10 Last administered on 07/05/18at 22:10; Admin Dose 2 MG; Start 07/01/18 at 00:00 Docusate Sodium (Colace) 100 mg Q12H PRN PO CONSTIPATION; Start 07/01/18 at 00:00 Magnesium Hydroxide (Milk Of Mag) 30 ml DAILY PRN PO CONSTIPATION; Start 07/01/18 at 00:00 Atorvastatin Calcium (Lipitor) 80 mg QHS GTB Last administered on 07/06/18at 21:44; Admin Dose 80 MG; Start 07/01/18 at 21:00 Bisacodyl (Dulcolax Supp) 10 mg Q24H PRN [place] NEEDED; Start 07/01/18 at 00:00 Carvedilol (Coreg) 3.125 mg BID GTB Last administered on 07/06/18at 21:42; Admin Dose 3.125 MG; Start 07/01/18 at 09:00 Valproate Sodium (Depakene Liquid Cup) 500 mg Q8H GTB Last administered on 07/07/18at 08:56; Admin Dose 500 MG; Start 07/01/18 at 00:00 Insulin Aspart (Novolog Insulin Pen) NOVOLOG *MILD* ALGORITHM Q6 SC Last administered on 07/02/18at 17:58; Admin Dose 1 UNIT; Start 07/01/18 at 00:00 Miscellaneous Information 1 ea NOTE XX ; Start 07/01/18 at 00:30 Glucose (Glutose) 15 gm Q15M PRN PO DECREASED GLUCOSE; Start 07/01/18 at 00:30 Glucose (Glutose) 22.5 gm Q15M PRN PO DECREASED GLUCOSE; Start 07/01/18 at 00:30 Dextrose (D50w Syringe) 25 ml Q15M PRN IV DECREASED GLUCOSE; Start 07/01/18 at 00:30 Dextrose (D50w Syringe) 50 ml Q15M PRN IV DECREASED GLUCOSE; Start 07/01/18 at 00:30 Glucagon (Glucagen) 1 mg Q15M PRN IM DECREASED GLUCOSE; Start 07/01/18 at 00:30 Glucose (Glutose) 15 gm Q15M PRN BUCCAL DECREASED GLUCOSE; Start 07/01/18 at 00:30 Aspirin (Aspirin) 162 mg DAILY PEG Last administered on 07/07/18at 09:06; Admin Dose 162 MG; Start 07/01/18 at 12:30 IV Flush (NS 10 ml) 10 ml PRN PRN IV FLUSH LINE; Start 07/02/18 at 14:00 Furosemide (Lasix) 20 mg DAILY IV Last administered on 07/07/18 09:03; Admin Dose 20 MG; Start 07/04/18 at 09:00 Benazepril HCl (Lotensin) 10 mg BID PO Last administered on 07/07/18 09:06; Admin Dose 10 MG; Start 07/03/18 at 21:00 Cefepime HCl 50 ml @ 100 mls/hr Q12 IVPB Last administered on 07/07/18 08:57; Admin Dose 100 MLS/HR; Start 07/04/18 at 21:00 Insulin Human NPH (Humulin N) 20 unit Q8H SC Last administered on 07/07/18 08:55; Admin Dose 20 UNIT; Start 07/05/18 at 16:00 Lansoprazole (Prevacid) 30 mg DAILY@06 GTB Last administered on 07/07/18 06:09; Admin Dose 30 MG; Start 07/06/18 at 06:00 Haloperidol (Haldol) 5 mg Q4 PRN IV AGITATION Last administered on 07/05/18 22:28; Admin Dose 5 MG; Start 07/05/18 at 22:30 Enoxaparin Sodium (Lovenox) 40 mg DAILY SC Last administered on 07/07/18 08:55; Admin Dose 40 MG; Start 07/06/18 at 09:00 Vancomycin HCl (Vanco Iv Per Pharmacy) VANCOMYCIN PER PHARMACY PER PROTOCOL XX ; Start 07/06/18 at 09:00 Vancomycin HCl 1.25 gm/Sodium Chloride 250 ml @ 83.333 mls/ hr Q12H IVPB Last administered on 07/07/18 11:59; Admin Dose 83.333 MLS/HR; Start 07/06/18 at 11:00 SETH AVENDANO Jul 07, 2018 12:38
--- NOTE | 2018-07-07 14:15 | CONS ---
Date/Time of Note Date/Time of Note DATE: 07/07/18 TIME: 14:15 Assessment/Plan Assessment/Plan Hospital Course No fevers overnight WBC today 6.9 no shift no bands BUN 22 creatinine 0.67 Chest x-ray this morning revealed improved aeration of the right lung with residual right basilar opacities. Increased left basilar opacity. Finding could represent pneumonia versus atelectasis. Antimicrobials: Vancomycin, cefepime Microbiology: Urine culture grew Enterobacter erogenous, blood cultures negative Indwelling's: Trach PEG Nelson left upper extremity PICC line Physical examination: This is a chronically ill-appearing middle-aged man who is nonresponsive the patient is in no distress head with evidence of right-sided cranial bone removal, sclera nonicteric neck is supple tracheostomy present chest rise symmetrical breath sounds clear, diminished bases. Heart: S1-S2. Abdomen soft, bowel sounds present. Extremities mottled without edema Assessment: 1. Status post septic shock 2. Healthcare associated pneumonia, possibly aspirated 3. Recurrent UTI 4. Chronic respiratory failure 5. History of intracranial hemorrhage status post craniotomy 6. Cardiomyopathy and history of PTCA 7. Diabetes and hypertension 8. Anemia Plan: Hemodynamically stable, continue antibiotics, cardiology and pulmonary recommendations, follow BAL cultures Result Diagram: 07/07/18 0310 07/07/18 0310 Results 24hrs Laboratory Tests Test 07/06/18 17:16 07/06/18 23:36 07/07/18 03:10 07/07/18 06:04 Bedside Glucose 120 141 132 White Blood Count 6.9 # Red Blood Count 3.13 L Hemoglobin 8.0 L Hematocrit 25.8 L Mean Corpuscular 82.4 Volume Mean Corpuscular 25.6 L Hemoglobin Mean Corpuscular 31.0 L Hemoglobin Concent Red Cell 16.3 H Distribution Width Platelet Count 288 Mean Platelet Volume 11.0 H Immature 0.600 H Granulocytes % Neutrophils % 62.5 Lymphocytes % 21.6 Monocytes % 10.8 Eosinophils % 4.2 Basophils % 0.3 Nucleated Red Blood 0.0 Cells % Immature 0.040 H Granulocytes # Neutrophils # 4.3 Lymphocytes # 1.5 Monocytes # 0.8 Eosinophils # 0.3 Basophils # 0.0 Nucleated Red Blood 0.0 Cells # Sodium Level 134 L Potassium Level 3.8 Chloride Level 100 Carbon Dioxide Level 29 Anion Gap 5 Blood Urea Nitrogen 22 H Creatinine 0.67 Est Glomerular > 60 Filtrat Rate mL/min Glucose Level 146 # Calcium Level 8.6 Test 07/07/18 08:52 07/07/18 12:02 Bedside Glucose 124 124 Consultation Date/Type/Reason Admit Date/Time Jun 30, 2018 at 16:55 Initial Consult Date Type of Consult id Requesting Provider: NIA DOMINGO MD Exam/Review of Systems Vital Signs Vitals Vital Signs Date Temp Pulse Resp B/P (MAP) Pulse Ox O2 O2 Flow FiO2 Time Delivery Rate 07/07/18 97.3 58 20 119/69 100 Mechanical 12:00 (86) Ventilator 07/07/18 30 08:00 Intake and Output 07/06/18 07/06/18 07/07/18 1515:00 23:00 07:00 IntakeIntake Total 990 ml 830 ml OutputOutput Total 400 ml 415 ml 340 ml BalanceBalance -400 ml 575 ml 490 ml Medications Medications Current Medications IV Flush (NS 3 ml) 3 ml PER PROTOCOL IV ; Start 07/01/18 at 00:00 Ondansetron HCl (Zofran Inj) 4 mg Q6H PRN IV NAUSEA AND/OR VOMITING; Start 07/01/18 at 00:00 Albuterol (Proventil 0.083% (Neb)) 2.5 mg Q2H RESP THERAPY PRN NEB SHORTNESS OF BREATH; Start 07/01/18 at 00:00 Ipratropium [place] (Atrovent 0.02% (Neb)) 0.5 mg Q2H RESP THERAPY PRN NEB SHORTNESS OF BREATH; Start 07/01/18 at 00:00 Acetaminophen (Tylenol Liquid) 650 mg Q6H PRN PO PAIN LEVEL 1-3 OR FEVER; Start 07/01/18 at 00:00 Morphine Sulfate (morphine) 2 mg Q4H PRN IV PAIN LEVEL 7-10 Last administered on 07/05/18at 22:10; Admin Dose 2 MG; Start 07/01/18 at 00:00 Docusate Sodium (Colace) 100 mg Q12H PRN PO CONSTIPATION; Start 07/01/18 at 00:00 Magnesium Hydroxide (Milk Of Mag) 30 ml DAILY PRN PO CONSTIPATION; Start 07/01/18 at 00:00 Atorvastatin Calcium (Lipitor) 80 mg QHS GTB Last administered on 07/06/18at 21:44; Admin Dose 80 MG; Start 07/01/18 at 21:00 Bisacodyl (Dulcolax Supp) 10 mg Q24H PRN NE NEEDED; Start 07/01/18 at 00:00 Carvedilol (Coreg) 3.125 mg BID GTB Last administered on 07/06/18at 21:42; Admin Dose 3.125 MG; Start 07/01/18 at 09:00 Valproate Sodium (Depakene Liquid Cup) 500 mg Q8H GTB Last administered on 07/07/18at 08:56; Admin Dose 500 MG; Start 07/01/18 at 00:00 Insulin Aspart (Novolog Insulin Pen) NOVOLOG *MILD* ALGORITHM Q6 SC Last administered on 07/02/18at 17:58; Admin Dose 1 UNIT; Start 07/01/18 at 00:00 Miscellaneous Information 1 ea NOTE XX ; Start 07/01/18 at 00:30 Glucose (Glutose) 15 gm Q15M PRN PO DECREASED GLUCOSE; Start 07/01/18 at 00:30 Glucose (Glutose) 22.5 gm Q15M PRN PO DECREASED GLUCOSE; Start 07/01/18 at 00:30 Dextrose (D50w Syringe) 25 ml Q15M PRN IV DECREASED GLUCOSE; Start 07/01/18 at 00:30 Dextrose (D50w Syringe) 50 ml Q15M PRN IV DECREASED GLUCOSE; Start 07/01/18 at 00:30 Glucagon (Glucagen) 1 mg Q15M PRN IM DECREASED GLUCOSE; Start 07/01/18 at 00:30 Glucose (Glutose) 15 gm Q15M PRN BUCCAL DECREASED GLUCOSE; Start 07/01/18 at 00:30 Aspirin (Aspirin) 162 mg DAILY PEG Last administered on 07/07/18at 09:06; Admin Dose 162 MG; Start 07/01/18 at 12:30 IV Flush (NS 10 ml) 10 ml PRN PRN IV FLUSH LINE; Start 07/02/18 at 14:00 Furosemide (Lasix) 20 mg DAILY IV Last administered on 07/07/18at 09:03; Admin Dose 20 MG; Start 07/04/18 at 09:00 Benazepril HCl (Lotensin) 10 mg BID PO Last administered on 07/07/18at 09:06; Admin Dose 10 MG; Start 07/03/18 at 21:00 Cefepime HCl 50 ml @ 100 mls/hr Q12 IVPB Last administered on 07/07/18at 08:57; Admin Dose 100 MLS/HR; Start 07/04/18 at 21:00 Insulin Human NPH (Humulin N) 20 unit Q8H SC Last administered on 07/07/18at 08:55; Admin Dose 20 UNIT; Start 07/05/18 at 16:00 Lansoprazole (Prevacid) 30 mg DAILY@06 GTB Last administered on 07/07/18at 06:09; Admin Dose 30 MG; Start 07/06/18 at 06:00 Haloperidol (Haldol) 5 mg Q4 PRN IV AGITATION Last administered on 07/05/18at 22:28; Admin Dose 5 MG; Start 07/05/18 at 22:30 Enoxaparin Sodium (Lovenox) 40 mg DAILY SC Last administered on 07/07/18at 08:55; Admin Dose 40 MG; Start 07/06/18 at 09:00 Vancomycin HCl (Vanco Iv Per Pharmacy) VANCOMYCIN PER PHARMACY PER PROTOCOL XX ; Start 07/06/18 at 09:00 Vancomycin HCl 1.25 gm/Sodium Chloride 250 ml @ 83.333 mls/ hr Q12H IVPB Last administered on 07/07/18at 11:59; Admin Dose 83.333 MLS/HR; Start 07/06/18 at 11:00 SANDER AMADOR NP Jul 07, 2018 14:15
[2018-07-07] MEDS ORDERED: ALTEPLASE (CATHFLO) 2 MG INJ CATHETER ONE (16:00)
[2018-07-07] MEDS: ATORVASTATIN 80 MG TAB GTB SCH (21:57)
[2018-07-08] VITALS (25 sets, daily range): BP systolic 108–152; BP diastolic 57–78; PULSE 47–72; RESP 16–22
[2018-07-08] MEDS: VANCOMYCIN HCL 1.25 GM in SOD CHLORIDE 0.9% 250 ML IVPB SCH ×3 (00:42→23:32)
[2018-07-08] MEDS: VALPROIC ACID LIQUID CUP 250 MG/5 ML CUP GTB SCH ×4 (00:54→23:38)
[2018-07-08] MEDS: NPH, HUMAN INSULIN ISOPHANE 3ML VIAL SC SCH ×3 (01:14→15:31)
[2018-07-08] MEDS: INSULIN ASPART [NOVOLOG] 3 ML PEN SC SCH ×4 (06:00→17:25)
[2018-07-08] MEDS: LANSOPRAZOLE 30 MG CAP GTB SCH (06:11)
[2018-07-08] MEDS: ASPIRIN 81 MG TAB PEG SCH (09:00)
[2018-07-08] MEDS: BENAZEPRIL 10 MG TAB PO SCH (09:00)
[2018-07-08] MEDS: CEFEPIME 1GM/50 ML (PMX) 50 ML IVPB SCH ×2 (09:00→21:19)
[2018-07-08] MEDS: FUROSEMIDE 20 MG INJ IV SCH (09:01)
[2018-07-08] MEDS: ENOXAPARIN 40 MG/0.4 ML SYG SC SCH (09:07)
--- NOTE | 2018-07-08 09:25 | CONS ---
Date/Time of Note Date/Time of Note DATE: 07/08/18 TIME: 09:21 Assessment/Plan Assessment/Plan Assessment/Plan Ventilator setting; AC of 16, tidal volume 500, PEEP of 5, 30% FiO2. Assessment recommendations; 1. Patient with history of prior craniotomy and severe chronic encephalopathy and VDR F admitted for sepsis due to UTI and pneumonia with interval clinical improvement. Patient currently on appropriate antimicrobial regimen. 2. Stable seizure disorder. 3. Diabetes. 4. Hypertension. 5. Anemia. 6. CHF. Continue current supportive care. Antibiotics per ID recommendations. Consider discharge. Prognosis is poor. Result Diagram: 07/08/18 0539 07/08/18 0539 Results 24hrs Laboratory Tests Test 07/07/18 12:02 07/07/18 16:34 07/07/18 18:39 07/08/18 01:02 Bedside Glucose 124 142 145 115 Test 07/08/18 05:39 07/08/18 06:10 07/08/18 08:58 White Blood Count 4.8 # Red Blood Count 3.24 L Hemoglobin 8.4 L Hematocrit 26.5 L Mean Corpuscular 81.8 L Volume Mean Corpuscular 25.9 L Hemoglobin Mean Corpuscular 31.7 L Hemoglobin Concent Red Cell 16.0 H Distribution Width Platelet Count 292 Mean Platelet Volume 10.3 Immature 0.400 Granulocytes % Neutrophils % 57.2 Lymphocytes % 26.1 Monocytes % 10.9 Eosinophils % 5.2 Basophils % 0.2 Nucleated Red Blood 0.0 Cells % Immature 0.020 Granulocytes # Neutrophils # 2.7 Lymphocytes # 1.3 Monocytes # 0.5 Eosinophils # 0.3 Basophils # 0.0 Nucleated Red Blood 0.0 Cells # Sodium Level 137 Potassium Level 3.7 Chloride Level 100 Carbon Dioxide Level 30 Anion Gap 7 Blood Urea Nitrogen 16 Creatinine 0.63 Est Glomerular > 60 Filtrat Rate mL/min Glucose Level 120 Calcium Level 8.4 Bedside Glucose 134 128 Consultation Date/Type/Reason Admit Date/Time Jun 30, 2018 at 16:55 Initial Consult Date Type of Consult Pulmonary/critical care Requesting Provider: NIA DOMINGO MD 24 HR Interval Summary Free Text/Dictation Patient's condition is stable. Has been transferred to telemetry unit. Patient has remained hemodynamically stable. General exam; middle-aged male, on ventilator via tracheostomy, unresponsive, currently in no distress. Exam/Review of Systems Vital Signs Vitals Vital Signs Date Temp Pulse Resp B/P (MAP) Pulse Ox O2 O2 Flow FiO2 Time Delivery Rate 07/08/18 98.1 65 18 108/57 97 07:55 (74) 07/08/18 30 07:35 07/07/18 Mechanical 18:00 Ventilator Intake and Output 07/07/18 07/07/18 07/08/18 1515:00 23:00 07:00 IntakeIntake Total 880.000 ml 230 ml 500 ml OutputOutput Total 760 ml 110 ml 120 ml BalanceBalance 120.000 ml 120 ml 380 ml Exam H EENT exam; supple neck, positive JVD. Patient has fair dentition. There is a right parietal skull depression. Tracheostomy in place. Insertion site is clean. Patient has fair dentition. Chest exam; diminished breath sounds bilaterally. No added sounds. S1-S2 audible, no murmurs. Regular rhythm. Abdomen exam; soft, no organomegaly. G-tube in place. Bowel sounds audible. Extremity exam; no peripheral edema. Pulses 1+. STEM MAKER exam; patient remains unresponsive. Medications Medications Current Medications IV Flush (NS 3 ml) 3 ml PER PROTOCOL IV ; Start 07/01/18 at 00:00 Ondansetron HCl (Zofran Inj) 4 mg Q6H PRN IV NAUSEA AND/OR VOMITING; Start 07/01/18 at 00:00 Albuterol (Proventil 0.083% (Neb)) 2.5 mg Q2H RESP THERAPY PRN NEB SHORTNESS OF BREATH; Start 07/01/18 at 00:00 Ipratropium [place] (Atrovent 0.02% (Neb)) 0.5 mg Q2H RESP THERAPY PRN NEB SHORTNESS OF BREATH; Start 07/01/18 at 00:00 Acetaminophen (Tylenol Liquid) 650 mg Q6H PRN PO PAIN LEVEL 1-3 OR FEVER; Start 07/01/18 at 00:00 Morphine Sulfate (morphine) 2 mg Q4H PRN IV PAIN LEVEL 7-10 Last administered on 07/05/18at 22:10; Admin Dose 2 MG; Start 07/01/18 at 00:00 Docusate Sodium (Colace) 100 mg Q12H PRN PO CONSTIPATION; Start 07/01/18 at 00:00 Magnesium Hydroxide (Milk Of Mag) 30 ml DAILY PRN PO CONSTIPATION; Start 07/01/18 at 00:00 Atorvastatin Calcium (Lipitor) 80 mg QHS GTB Last administered on 07/07/18at 21:57; Admin Dose 80 MG; Start 07/01/18 at 21:00 Bisacodyl (Dulcolax Supp) 10 mg Q24H PRN [place] NEEDED; Start 07/01/18 at 00:00 Carvedilol (Coreg) 3.125 mg BID GTB Last administered on 07/07/18at 21:56; Admin Dose 3.125 MG; Start 07/01/18 at 09:00 Valproate Sodium (Depakene Liquid Cup) 500 mg Q8H GTB Last administered on 07/08/18at 09:00; Admin Dose 500 MG; Start 07/01/18 at 00:00 Insulin Aspart (Novolog Insulin Pen) NOVOLOG *MILD* ALGORITHM Q6 SC Last administered on 07/02/18at 17:58; Admin Dose 1 UNIT; Start 07/01/18 at 00:00 Miscellaneous Information 1 ea NOTE XX ; Start 07/01/18 at 00:30 Glucose (Glutose) 15 gm Q15M PRN PO DECREASED GLUCOSE; Start 07/01/18 at 00:30 Glucose (Glutose) 22.5 gm Q15M PRN PO DECREASED GLUCOSE; Start 07/01/18 at 00:30 Dextrose (D50w Syringe) 25 ml Q15M PRN IV DECREASED GLUCOSE; Start 07/01/18 at 00:30 Dextrose (D50w Syringe) 50 ml Q15M PRN IV DECREASED GLUCOSE; Start 07/01/18 at 00:30 Glucagon (Glucagen) 1 mg Q15M PRN IM DECREASED GLUCOSE; Start 07/01/18 at 00:30 Glucose (Glutose) 15 gm Q15M PRN BUCCAL DECREASED GLUCOSE; Start 07/01/18 at 00:30 Aspirin (Aspirin) 162 mg DAILY PEG Last administered on 07/08/18at 09:00; Admin Dose 162 MG; Start 07/01/18 at 12:30 IV Flush (NS 10 ml) 10 ml PRN PRN IV FLUSH LINE; Start 07/02/18 at 14:00 Furosemide (Lasix) 20 mg DAILY IV Last administered on 07/08/18at 09:01; Admin Dose 20 MG; Start 07/04/18 at 09:00 Benazepril HCl (Lotensin) 10 mg BID PO Last administered on 07/07/18at 21:55; Admin Dose 10 MG; Start 07/03/18 at 21:00 Cefepime HCl 50 ml @ 100 mls/hr Q12 IVPB Last administered on 07/08/18at 09:00; Admin Dose 100 MLS/HR; Start 07/04/18 at 21:00 Insulin Human NPH (Humulin N) 20 unit Q8H SC Last administered on 07/08/18at 09:07; Admin Dose 20 UNIT; Start 07/05/18 at 16:00 Lansoprazole (Prevacid) 30 mg DAILY@06 GTB Last administered on 07/08/18at 06:11; Admin Dose 30 MG; Start 07/06/18 at 06:00 Haloperidol (Haldol) 5 mg Q4 PRN IV AGITATION Last administered on 07/05/18at 22:28; Admin Dose 5 MG; Start 07/05/18 at 22:30 Enoxaparin Sodium (Lovenox) 40 mg DAILY SC Last administered on 07/08/18at 09:07; Admin Dose 40 MG; Start 07/06/18 at 09:00 Vancomycin HCl (Vanco Iv Per Pharmacy) VANCOMYCIN PER PHARMACY PER PROTOCOL XX ; Start 07/06/18 at 09:00 Vancomycin HCl 1.25 gm/Sodium Chloride 250 ml @ 83.333 mls/ hr Q12H IVPB Last administered on 07/08/18at 00:42; Admin Dose 83.333 MLS/HR; Start 07/06/18 at 11:00 Miscellaneous Information (*Rx Drug Level Order Reminder*) VANCO TROUGH @ 1,000 ONCE ONCE XX ; Start 07/08/18 at 10:00; Stop 07/08/18 at 10:01 MER CHRIS Jul 08, 2018 09:25
--- NOTE | 2018-07-08 12:17 | PN ---
Date/Time of Note Date/Time of Note DATE: 07/08/18 TIME: 12:16 Assessment/Plan VTE Prophylaxis Risk score (from Ns)>0 risk: 5 SCD applied (from Ns): Yes Pharmacological prophylaxis: LMWH Lines/Catheters [facility] P[facility] Line Central line still needed: Yes Urinary Cath still in place: Yes Reason Cath still needed: urinary retention Assessment/Plan Hospital Course No acute events overnight, patient continues on ventilatory support without distress. Patient continues on antibiotics for pneumonia and urinary tract infection. Assessment/Plan -Lung atelectasis, status post bronchoscopy by Dr. Wall on 07/06/2018. -Sepsis most likely secondary to HCAP and urinary tract infection, f/up on urine and blood cultures. Continue broad-spectrum antibiotics. Dr. Hodge is following in infection disease consultation. -Septic shock, resolving. -ARF, continue ventilatory support. Dr Mitchell is following in pulmonology consultation. -Chronic tracheostomy -Dysphagia with PEG -Coronary artery disease status post stent placement to LAD and RCA. Dr. Vincent is following in cardiology consultation. -Cardiomyopathy with ejection fraction of 25-30% -Hypertension -Diabetes -Morbid obesity -Chronic encephalopathy Further recommendations based on clinical course. Plan of care discussed with Dr. Cortez. Result Diagram: 07/08/18 0539 07/08/18 0539 Results 24hrs Laboratory Tests Test 07/07/18 16:34 07/07/18 18:39 07/08/18 01:02 07/08/18 05:39 Bedside Glucose 142 145 115 White Blood Count 4.8 # Red Blood Count 3.24 L Hemoglobin 8.4 L Hematocrit 26.5 L Mean Corpuscular 81.8 L Volume Mean Corpuscular 25.9 L Hemoglobin Mean Corpuscular 31.7 L Hemoglobin Concent Red Cell 16.0 H Distribution Width Platelet Count 292 Mean Platelet Volume 10.3 Immature 0.400 Granulocytes % Neutrophils % 57.2 Lymphocytes % 26.1 Monocytes % 10.9 Eosinophils % 5.2 Basophils % 0.2 Nucleated Red Blood 0.0 Cells % Immature 0.020 Granulocytes # Neutrophils # 2.7 Lymphocytes # 1.3 Monocytes # 0.5 Eosinophils # 0.3 Basophils # 0.0 Nucleated Red Blood 0.0 Cells # Sodium Level 137 Potassium Level 3.7 Chloride Level 100 Carbon Dioxide Level 30 Anion Gap 7 Blood Urea Nitrogen 16 Creatinine 0.63 Est Glomerular > 60 Filtrat Rate mL/min Glucose Level 120 Calcium Level 8.4 Test 07/08/18 06:10 07/08/18 08:58 07/08/18 09:54 Bedside Glucose 134 128 Vancomycin Level 14.9 Trough Exam/Review of Systems Vital Signs Vitals Vital Signs Date Temp Pulse Resp B/P (MAP) Pulse Ox O2 O2 Flow FiO2 Time Delivery Rate 07/08/18 98.1 61 18 111/58 97 11:36 (75) 07/08/18 30 11:25 07/07/18 Mechanical 18:00 Ventilator Intake and Output 07/07/18 07/07/18 07/08/18 1515:00 23:00 07:00 IntakeIntake Total 880.000 ml 230 ml 500 ml OutputOutput Total 760 ml 110 ml 120 ml BalanceBalance 120.000 ml 120 ml 380 ml Exam Constitutional: non-verbal Head: other (Status post right craniectomy) Neck: supple, other (Tracheostomy at the base of the neck, no bleeding) Respiratory: diminished breath sounds Cardiovascular: regular rate and rhythm Gastrointestinal: soft, non-tender, other (G-tube) Extremities: normal pulses Neurological: other (Nonverbal, did not response to any verbal stimuli, spontaneous movement of the extremities) Skin: nl turgor Medications Medications Current Medications IV Flush (NS 3 ml) 3 ml PER PROTOCOL IV ; Start 07/01/18 at 00:00 Ondansetron HCl (Zofran Inj) 4 mg Q6H PRN IV NAUSEA AND/OR VOMITING; Start 07/01/18 at 00:00 Albuterol (Proventil 0.083% (Neb)) 2.5 mg Q2H RESP THERAPY PRN NEB SHORTNESS OF BREATH; Start 07/01/18 at 00:00 Ipratropium [place] (Atrovent 0.02% (Neb)) 0.5 mg Q2H RESP THERAPY PRN NEB SHORTNESS OF BREATH; Start 07/01/18 at 00:00 Acetaminophen (Tylenol Liquid) 650 mg Q6H PRN PO PAIN LEVEL 1-3 OR FEVER; Start 07/01/18 at 00:00 Morphine Sulfate (morphine) 2 mg Q4H PRN IV PAIN LEVEL 7-10 Last administered on 07/05/18at 22:10; Admin Dose 2 MG; Start 07/01/18 at 00:00 Docusate Sodium (Colace) 100 mg Q12H PRN PO CONSTIPATION; Start 07/01/18 at 00:00 Magnesium Hydroxide (Milk Of Mag) 30 ml DAILY PRN PO CONSTIPATION; Start 07/01/18 at 00:00 Atorvastatin Calcium (Lipitor) 80 mg QHS GTB Last administered on 07/07/18at 21:57; Admin Dose 80 MG; Start 07/01/18 at 21:00 Bisacodyl (Dulcolax Supp) 10 mg Q24H PRN [place] NEEDED; Start 07/01/18 at 00:00 Carvedilol (Coreg) 3.125 mg BID GTB Last administered on 07/07/18at 21:56; Admin Dose 3.125 MG; Start 07/01/18 at 09:00 Valproate Sodium (Depakene Liquid Cup) 500 mg Q8H GTB Last administered on 07/08/18at 09:00; Admin Dose 500 MG; Start 07/01/18 at 00:00 Insulin Aspart (Novolog Insulin Pen) NOVOLOG *MILD* ALGORITHM Q6 SC Last administered on 07/02/18at 17:58; Admin Dose 1 UNIT; Start 07/01/18 at 00:00 Miscellaneous Information 1 ea NOTE XX ; Start 07/01/18 at 00:30 Glucose (Glutose) 15 gm Q15M PRN PO DECREASED GLUCOSE; Start 07/01/18 at 00:30 Glucose (Glutose) 22.5 gm Q15M PRN PO DECREASED GLUCOSE; Start 07/01/18 at 00:30 Dextrose (D50w Syringe) 25 ml Q15M PRN IV DECREASED GLUCOSE; Start 07/01/18 at 00:30 Dextrose (D50w Syringe) 50 ml Q15M PRN IV DECREASED GLUCOSE; Start 07/01/18 at 00:30 Glucagon (Glucagen) 1 mg Q15M PRN IM DECREASED GLUCOSE; Start 07/01/18 at 00:30 Glucose (Glutose) 15 gm Q15M PRN BUCCAL DECREASED GLUCOSE; Start 07/01/18 at 00:30 Aspirin (Aspirin) 162 mg DAILY PEG Last administered on 07/08/18at 09:00; Admin Dose 162 MG; Start 07/01/18 at 12:30 IV Flush (NS 10 ml) 10 ml PRN PRN IV FLUSH LINE; Start 07/02/18 at 14:00 Furosemide (Lasix) 20 mg DAILY IV Last administered on 07/08/18 09:01; Admin Dose 20 MG; Start 07/04/18 at 09:00 Benazepril HCl (Lotensin) 10 mg BID PO Last administered on 07/07/18 21:55; Ad min Dose 10 MG; Start 07/03/18 at 21:00 Cefepime HCl 50 ml @ 100 mls/hr Q12 IVPB Last administered on 07/08/18 09:00; Admin Dose 100 MLS/HR; Start 07/04/18 at 21:00 Insulin Human NPH (Humulin N) 20 unit Q8H SC Last administered on 07/08/18 09:07; Admin Dose 20 UNIT; Start 07/05/18 at 16:00 Lansoprazole (Prevacid) 30 mg DAILY@06 GTB Last administered on 07/08/18 06:11; Admin Dose 30 MG; Start 07/06/18 at 06:00 Haloperidol (Haldol) 5 mg Q4 PRN IV AGITATION Last administered on 07/05/18 22 :28; Admin Dose 5 MG; Start 07/05/18 at 22:30 Enoxaparin Sodium (Lovenox) 40 mg DAILY SC Last administered on 07/08/18 09:07; Admin Dose 40 MG; Start 07/06/18 at 09:00 Vancomycin HCl (Vanco Iv Per Pharmacy) VANCOMYCIN PER PHARMACY PER PROTOCOL XX ; Start 07/06/18 at 09:00 Vancomycin HCl 1.25 gm/Sodium Chloride 250 ml @ 83.333 mls/ hr Q12H IVPB Last administered on 07/08/18 11:17; Admin Dose 83.333 MLS/HR; Start 07/06/18 at 11:00 SETH AVENDANO Jul 08, 2018 12:17
--- NOTE | 2018-07-08 13:01 | CONS ---
Date/Time of Note Date/Time of Note DATE: 07/08/18 TIME: 12:59 Assessment/Plan Assessment/Plan Hospital Course IMPRESSION: 1. Hypotension/shock state and likely septic.- now off levophed and tolerating BB/ACEI 2. Cardiomyopathy with decreased left ventricular ejection fraction, last known to be 30% by echo in 01/2018.-neg trop x 3 3. History of prior percutaneous transluminal coronary angioplasty and stent placements, most recently to LAD in 2014. 4. Urinary tract infection, likely urosepsis. 5. Diabetes mellitus. 6. Chronic respiratory failure, status post tracheostomy. 7. Dysphagia, status post G-tube. 8. Chronic encephalopathy. 9. Leukocytosis. 10. History of hemorrhagic cerebrovascular accident. 11.NSVT Recc: -Now back in icu -Continue BB/ACEI as tolerated and follow BP closely and thus will decrease dose of benazepril and change hold parameters -Follow volume status clsoely -F/U cx data and continue cefepime -Continue gentle lasix diuresis -Continue asa -s/p bronchoscopy Result Diagram: 07/08/18 0539 07/08/18 0539 Results 24hrs Laboratory Tests Test 07/07/18 16:34 07/07/18 18:39 07/08/18 01:02 07/08/18 05:39 Bedside Glucose 142 145 115 White Blood Count 4.8 # Red Blood Count 3.24 L Hemoglobin 8.4 L Hematocrit 26.5 L Mean Corpuscular 81.8 L Volume Mean Corpuscular 25.9 L Hemoglobin Mean Corpuscular 31.7 L Hemoglobin Concent Red Cell 16.0 H Distribution Width Platelet Count 292 Mean Platelet Volume 10.3 Immature 0.400 Granulocytes % Neutrophils % 57.2 Lymphocytes % 26.1 Monocytes % 10.9 Eosinophils % 5.2 Basophils % 0.2 Nucleated Red Blood 0.0 Cells % Immature 0.020 Granulocytes # Neutrophils # 2.7 Lymphocytes # 1.3 Monocytes # 0.5 Eosinophils # 0.3 Basophils # 0.0 Nucleated Red Blood 0.0 Cells # Sodium Level 137 Potassium Level 3.7 Chloride Level 100 Carbon Dioxide Level 30 Anion Gap 7 Blood Urea Nitrogen 16 Creatinine 0.63 Est Glomerular > 60 Filtrat Rate mL/min Glucose Level 120 Calcium Level 8.4 Test 07/08/18 06:10 07/08/18 08:58 07/08/18 09:54 07/08/18 12:14 Bedside Glucose 134 128 143 Vancomycin Level 14.9 Trough Consultation Date/Type/Reason Admit Date/Time Jun 30, 2018 at 16:55 Initial Consult Date 06/30/18 Type of Consult cardiology Reason for Consultation Hypotension Requesting Provider: NIA DOMINGO MD Exam/Review of Systems Vital Signs Vitals Vital Signs Date Temp Pulse Resp B/P (MAP) Pulse Ox O2 O2 Flow FiO2 Time Delivery Rate 07/08/18 98.1 61 18 111/58 97 11:36 (75) 07/08/18 30 11:25 07/07/18 Mechanical 18:00 Ventilator Intake and Output 07/07/18 07/07/18 07/08/18 1515:00 23:00 07:00 IntakeIntake Total 880.000 ml 230 ml 500 ml OutputOutput Total 760 ml 110 ml 120 ml BalanceBalance 120.000 ml 120 ml 380 ml Exam Review of Systems: CONSTITUTIONAL: No fevers, chills. PULMONARY: No sob CARDIOVASCULAR: No chest pain/palpitations GASTROINTESTINAL: No nausea/vomiting. GENITOURINARY: No hematuria/dysuria. MUSCULOSKELETAL: No myagias/arthalgias. PSYCHIATRIC: The patient denies depression. NEUROLOGIC: encephalopathic Constitutional: other (encephalopathic) Psych: no complaints Head: normocephalic ENMT: mucosa pink and moist Neck: supple, jvd (9 cm water) Respiratory: diminished breath sounds (at bases/B) Cardiovascular: regular rate and rhythm Gastrointestinal: soft, non-tender Musculoskeletal: muscle tone (normal) Extremities: edema (none) Neurological: other (No focal deficits) Medications Medications Current Medications IV Flush (NS 3 ml) 3 ml PER PROTOCOL IV ; Start 07/01/18 at 00:00 Ondansetron HCl (Zofran Inj) 4 mg Q6H PRN IV NAUSEA AND/OR VOMITING; Start 07/01/18 at 00:00 Albuterol (Proventil 0.083% (Neb)) 2.5 mg Q2H RESP THERAPY PRN NEB SHORTNESS OF BREATH; Start 07/01/18 at 00:00 Ipratropium [place] (Atrovent 0.02% (Neb)) 0.5 mg Q2H RESP THERAPY PRN NEB SHORTNESS OF BREATH; Start 07/01/18 at 00:00 Acetaminophen (Tylenol Liquid) 650 mg Q6H PRN PO PAIN LEVEL 1-3 OR FEVER; Start 07/01/18 at 00:00 Morphine Sulfate (morphine) 2 mg Q4H PRN IV PAIN LEVEL 7-10 Last administered on 07/05/18at 22:10; Admin Dose 2 MG; Start 07/01/18 at 00:00 Docusate Sodium (Colace) 100 mg Q12H PRN PO CONSTIPATION; Start 07/01/18 at 00:00 Magnesium Hydroxide (Milk Of Mag) 30 ml DAILY PRN PO CONSTIPATION; Start 07/01/18 at 00:00 Atorvastatin Calcium (Lipitor) 80 mg QHS GTB Last administered on 07/07/18at 21:57; Admin Dose 80 MG; Start 07/01/18 at 21:00 Bisacodyl (Dulcolax Supp) 10 mg Q24H PRN [place] NEEDED; Start 07/01/18 at 00:00 Carvedilol (Coreg) 3.125 mg BID GTB Last administered on 07/07/18at 21:56; Admin Dose 3.125 MG; Start 07/01/18 at 09:00 Valproate Sodium (Depakene Liquid Cup) 500 mg Q8H GTB Last administered on 07/08/18at 09:00; Admin Dose 500 MG; Start 07/01/18 at 00:00 Insulin Aspart (Novolog Insulin Pen) NOVOLOG *MILD* ALGORITHM Q6 SC Last admin istered on 07/08/18at 12:24; Admin Dose 1 UNIT; Start 07/01/18 at 00:00 Miscellaneous Information 1 ea NOTE XX ; Start 07/01/18 at 00:30 Glucose (Glutose) 15 gm Q15M PRN PO DECREASED GLUCOSE; Start 07/01/18 at 00:30 Glucose (Glutose) 22.5 gm Q15M PRN PO DECREASED GLUCOSE; Start 07/01/18 at 00:30 Dextrose (D50w Syringe) 25 ml Q15M PRN IV DECREASED GLUCOSE; Start 07/01/18 at 00:30 Dextrose (D50w Syringe) 50 ml Q15M PRN IV DECREASED GLUCOSE; Start 07/01/18 at 00:30 Glucagon (Glucagen) 1 mg Q15M PRN IM DECREASED GLUCOSE; Start 07/01/18 at 00:30 Glucose (Glutose) 15 gm Q15M PRN BUCCAL DECREASED GLUCOSE; Start 07/01/18 at 00:30 Aspirin (Aspirin) 162 mg DAILY PEG Last administered on 07/08/18at 09:00; Admin Dose 162 MG; Start 07/01/18 at 12:30 IV Flush (NS 10 ml) 10 ml PRN PRN IV FLUSH LINE; Start 07/02/18 at 14:00 Furosemide (Lasix) 20 mg DAILY IV Last administered on 07/08/18at 09:01; Admin Dose 20 MG; Start 07/04/18 at 09:00 Benazepril HCl (Lotensin) 10 mg BID PO Last administered on 07/07/18 21:55; Admin Dose 10 MG; Start 07/03/18 at 21:00 Cefepime HCl 50 ml @ 100 mls/hr Q12 IVPB Last administered on 07/08/18 09:00; Admin Dose 100 MLS/HR; Start 07/04/18 at 21:00 Insulin Human NPH (Humulin N) 20 unit Q8H SC Last administered on 07/08/18at 09:07; Admin Dose 20 UNIT; Start 07/05/18 at 16:00 Lansoprazole (Prevacid) 30 mg DAILY@06 GTB Last administered on 07/08/18 06:11; Admin Dose 30 MG; Start 07/06/18 at 06:00 Haloperidol (Haldol) 5 mg Q4 PRN IV AGITATION Last administered on 07/05/18at 22:28; Admin Dose 5 MG; Start 07/05/18 at 22:30 Enoxaparin Sodium (Lovenox) 40 mg DAILY SC Last administered on 07/08/18at 09:07; Admin Dose 40 MG; Start 07/06/18 at 09:00 Vancomycin HCl (Vanco Iv Per Pharmacy) VANCOMYCIN PER PHARMACY PER PROTOCOL XX ; Start 07/06/18 at 09:00 Vancomycin HCl 1.25 gm/Sodium Chloride 250 ml @ 83.333 mls/ hr Q12H IVPB Last administered on 07/08/18 11:17; Admin Dose 83.333 MLS/HR; Start 07/06/18 at 11:00 MAE ROSALES 17, 2019 13:01
[2018-07-08] MEDS: ATORVASTATIN 80 MG TAB GTB SCH (21:19)
[2018-07-09] VITALS (24 sets, daily range): BP systolic 123–146; BP diastolic 58–80; PULSE 53–82; RESP 13–21
[2018-07-09] MEDS: NPH, HUMAN INSULIN ISOPHANE 3ML VIAL SC SCH ×4 (01:43→23:41)
[2018-07-09] MEDS: LANSOPRAZOLE 30 MG CAP GTB SCH (05:41)
[2018-07-09] MEDS: INSULIN ASPART [NOVOLOG] 3 ML PEN SC SCH ×5 (05:42→23:38)
[2018-07-09] MEDS: VALPROIC ACID LIQUID CUP 250 MG/5 ML CUP GTB SCH ×3 (09:15→23:32)
[2018-07-09] MEDS: CEFEPIME 1GM/50 ML (PMX) 50 ML IVPB SCH ×2 (09:16→21:25)
[2018-07-09] MEDS: BENAZEPRIL 10 MG TAB PO SCH (09:18)
[2018-07-09] MEDS: ASPIRIN 81 MG TAB PEG SCH (09:18)
[2018-07-09] MEDS: FUROSEMIDE 20 MG INJ IV SCH (09:19)
[2018-07-09] MEDS: ENOXAPARIN 40 MG/0.4 ML SYG SC SCH (09:42)
[2018-07-09] MEDS: VANCOMYCIN HCL 1.25 GM in SOD CHLORIDE 0.9% 250 ML IVPB SCH ×2 (10:30→23:32)
--- NOTE | 2018-07-09 11:35 | CONS ---
Date/Time of Note Date/Time of Note DATE: 07/09/18 TIME: 11:33 Assessment/Plan Assessment/Plan Assessment/Plan Ventilator setting; AC of 16, tidal volume 500, PEEP of 5, 30% FiO2. Assessment recommendations; 1. Patient with history of chronic encephalopathy and VDR F admitted for sepsis due to pneumonia and UTI. Enterobacter cultured from urine. Patient currently on appropriate antimicrobial regimen. 2. Stable seizure disorder. 3. History of diabetes. 4. CHF. 5. Anemia. 6. History of hypertension. Continue current supportive care. Antibiotics per ID recommendations. Overall prognosis is poor. Result Diagram: 07/09/1852107/09/18521 Results 24hrs Laboratory Tests Test 07/08/18 12:14 07/08/18 15:25 07/08/18 17:24 07/08/18 23:31 Bedside Glucose 143 130 128 126 Test 07/09/18 05:22 07/09/18 05:40 07/09/18 09:09 White Blood Count 4.8 Red Blood Count 3.16 L Hemoglobin 8.1 L Hematocrit 26.2 L Mean Corpuscular 82.9 Volume Mean Corpuscular 25.6 L Hemoglobin Mean Corpuscular 30.9 L Hemoglobin Concent Red Cell 16.2 H Distribution Width Platelet Count 309 Mean Platelet Volume 10.2 Immature 0.400 Granulocytes % Neutrophils % 52.0 Lymphocytes % 29.4 Monocytes % 11.8 H Eosinophils % 5.6 Basophils % 0.8 Nucleated Red Blood 0.0 Cells % Immature 0.020 Granulocytes # Neutrophils # 2.5 Lymphocytes # 1.4 Monocytes # 0.6 Eosinophils # 0.3 Basophils # 0.0 Nucleated Red Blood 0.0 Cells # Sodium Level 136 Potassium Level 3.8 Chloride Level 102 Carbon Dioxide Level 30 Anion Gap 4 L Blood Urea Nitrogen 18 Creatinine 0.62 Est Glomerular > 60 Filtrat Rate mL/min Glucose Level 109 Calcium Level 8.6 Bedside Glucose 116 125 Consultation Date/Type/Reason Admit Date/Time Jun 30, 2018 at 16:55 Initial Consult Date Type of Consult Pulmonary/critical care Requesting Provider: NIA DOMINGO MD 24 HR Interval Summary Free Text/Dictation Patient's condition remains stable. Remains unresponsive to any commands. Has remained hemodynamically stable. General exam; middle-aged male, on ventilator via tracheostomy, unresponsive, currently in no distress. Exam/Review of Systems Vital Signs Vitals Vital Signs Date Temp Pulse Resp B/P (MAP) Pulse Ox O2 O2 Flow FiO2 Time Delivery Rate 07/09/18 60 16 98 30 11:10 07/09/18 99.0 146/80 Mechanical 07:55 (102) Ventilator Intake and Output 07/08/18 07/08/18 07/09/18 1515:00 23:00 07:00 IntakeIntake Total 300 ml 870 ml 970 ml OutputOutput Total 1000 ml 1100 ml BalanceBalance 300 ml -130 ml -130 ml Exam H EENT exam; supple neck, colostomy in place. Insertion site is clean. Patient has positive JVD. No neck masses. Patient has fair dentition. There is a stable right parietal skull depression. No neck masses. Chest exam; diminished but clear breath sounds. S1-S2 audible, no murmurs. Regular rhythm. Abdomen exam; soft, no organomegaly. G-tube in place. Bowel sounds audible. Abdomen is protuberant. Extremity exam; no peripheral edema or clubbing. [employer] exam; patient remains unresponsive. Medications Medications Current Medications IV Flush (NS 3 ml) 3 ml PER PROTOCOL IV ; Start 07/01/18 at 00:00 Ondansetron HCl (Zofran Inj) 4 mg Q6H PRN IV NAUSEA AND/OR VOMITING; Start 07/01/18 at 00:00 Albuterol (Proventil 0.083% (Neb)) 2.5 mg Q2H RESP THERAPY PRN NEB SHORTNESS OF BREATH; Start 07/01/18 at 00:00 Ipratropium [place] (Atrovent 0.02% (Neb)) 0.5 mg Q2H RESP THERAPY PRN NEB SHORTNESS OF BREATH; Start 07/01/18 at 00:00 Acetaminophen (Tylenol Liquid) 650 mg Q6H PRN PO PAIN LEVEL 1-3 OR FEVER; Start 07/01/18 at 00:00 Morphine Sulfate (morphine) 2 mg Q4H PRN IV PAIN LEVEL 7-10 Last administered on 07/05/18at 22:10; Admin Dose 2 MG; Start 07/01/18 at 00:00 Docusate Sodium (Colace) 100 mg Q12H PRN PO CONSTIPATION; Start 07/01/18 at 00:00 Magnesium Hydroxide (Milk Of Mag) 30 ml DAILY PRN PO CONSTIPATION; Start 07/01/18 at 00:00 Atorvastatin Calcium (Lipitor) 80 mg QHS GTB Last administered on 07/08/18at 21:19; Admin Dose 80 MG; Start 07/01/18 at 21:00 Bisacodyl (Dulcolax Supp) 10 mg Q24H PRN [place] NEEDED; Start 07/01/18 at 00:00 Carvedilol (Coreg) 3.125 mg BID GTB Last administered on 07/09/18at 09:18; Admin Dose 3.125 MG; Start 07/01/18 at 09:00 Valproate Sodium (Depakene Liquid Cup) 500 mg Q8H GTB Last administered on 07/09/18at 09:15; Admin Dose 500 MG; Start 07/01/18 at 00:00 Insulin Aspart (Novolog Insulin Pen) NOVOLOG *MILD* ALGORITHM Q6 SC Last administered on 07/08/18at 12:24; Admin Dose 1 UNIT; Start 07/01/18 at 00:00 Miscellaneous Information 1 ea NOTE XX ; Start 07/01/18 at 00:30 Glucose (Glutose) 15 gm Q15M PRN PO DECREASED GLUCOSE; Start 07/01/18 at 00:30 Glucose (Glutose) 22.5 gm Q15M PRN PO DECREASED GLUCOSE; Start 07/01/18 at 00:30 Dextrose (D50w Syringe) 25 ml Q15M PRN IV DECREASED GLUCOSE; Start 07/01/18 at 00:30 Dextrose (D50w Syringe) 50 ml Q15M PRN IV DECREASED GLUCOSE; Start 07/01/18 at 00:30 Glucagon (Glucagen) 1 mg Q15M PRN IM DECREASED GLUCOSE; Start 07/01/18 at 00:30 Glucose (Glutose) 15 gm Q15M PRN BUCCAL DECREASED GLUCOSE; Start 07/01/18 at 00:30 Aspirin (Aspirin) 162 mg DAILY PEG Last administered on 07/09/18at 09:18; Admin Dose 162 MG; Start 07/01/18 at 12:30 IV Flush (NS 10 ml) 10 ml PRN PRN IV FLUSH LINE; Start 07/02/18 at 14:00 Furosemide (Lasix) 20 mg DAILY IV Last administered on 07/09/18at 09:19; Admin Dose 20 MG; Start 07/04/18 at 09:00 Cefepime HCl 50 ml @ 100 mls/hr Q12 IVPB Last administered on 07/09/18 09:16; Admin Dose 100 MLS/HR; Start 07/04/18 at 21:00 Insulin Human NPH (Humulin N) 20 unit Q8H SC Last administered on 07/09/18 09 :36; Admin Dose 20 UNIT; Start 07/05/18 at 16:00 Lansoprazole (Prevacid) 30 mg DAILY@06 GTB Last administered on 07/09/18 05:41; Admin Dose 30 MG; Start 07/06/18 at 06:00 Haloperidol (Haldol) 5 mg Q4 PRN IV AGITATION Last administered on 07/05/18 22:28; Admin Dose 5 MG; Start 07/05/18 at 22:30 Enoxaparin Sodium (Lovenox) 40 mg DAILY SC Last administered on 07/09/18 09:42; Admin Dose 40 MG; Start 07/06/18 at 09:00 Vancomycin HCl (Vanco Iv Per Pharmacy) VANCOMYCIN PER PHARMACY PER PROTOCOL XX ; Start 07/06/18 at 09:00 Vancomycin HCl 1.25 gm/Sodium Chloride 250 ml @ 83.333 mls/ hr Q12H IVPB Last administered on 07/09/18 10:30; Admin Dose 83.333 MLS/HR; Start 07/06/18 at 11:00 Benazepril HCl (Lotensin) 10 mg DAILY PO Last administered on 07/09/18 09:18; Admin Dose 10 MG; Start 07/09/18 at 09:00 MER CHRIS Jul 09, 2018 11:35
--- NOTE | 2018-07-09 14:29 | PN ---
Date/Time of Note Date/Time of Note DATE: 07/09/18 TIME: 14:29 Assessment/Plan [place] [facility] [place]: 8 [place] [facility] [place] SCD contraindicated: other Pharmacological prophylaxis: other Pharm contraindication: other Lines/Catheters [facility] PICC Line Central line still needed: Yes Urinary Cath still in place: Yes Reason Cath still needed: urinary retention Assessment/Plan Assessment/Plan -Lung atelectasis, status post bronchoscopy by Dr. Wall on 07/06/2018. -Sepsis most likely secondary to HCAP and urinary tract infection, f/up on urine and blood cultures. Continue broad-spectrum antibiotics. Dr. Hodge is following in infection disease consultation. -Septic shock, resolving. -ARF, continue ventilatory support. Dr Mithcell is following in pulmonology consultation. -Chronic tracheostomy -Dysphagia with PEG -Coronary artery disease status post stent placement to LAD and RCA. Dr. Vincent is following in cardiology consultation. -Cardiomyopathy with ejection fraction of 25-30% -Hypertension -Diabetes -Morbid obesity -Chronic encephalopathy Result Diagram: 07/09/18 0522 07/09/18 0522 Results 24hrs Laboratory Tests Test 07/08/18 15:25 07/08/18 17:24 07/08/18 23:31 07/09/18 05:22 Bedside Glucose 130 128 126 White Blood Count 4.8 Red Blood Count 3.16 L Hemoglobin 8.1 L Hematocrit 26.2 L Mean Corpuscular 82.9 Volume Mean Corpuscular 25.6 L Hemoglobin Mean Corpuscular 30.9 L Hemoglobin Concent Red Cell 16.2 H Distribution Width Platelet Count 309 Mean Platelet Volume 10.2 Immature 0.400 Granulocytes % Neutrophils % 52.0 Lymphocytes % 29.4 Monocytes % 11.8 H Eosinophils % 5.6 Basophils % 0.8 Nucleated Red Blood 0.0 Cells % Immature 0.020 Granulocytes # Neutrophils # 2.5 Lymphocytes # 1.4 Monocytes # 0.6 Eosinophils # 0.3 Basophils # 0.0 Nucleated Red Blood 0.0 Cells # Sodium Level 136 Potassium Level 3.8 Chloride Level 102 Carbon Dioxide Level 30 Anion Gap 4 L Blood Urea Nitrogen 18 Creatinine 0.62 Est Glomerular > 60 Filtrat Rate mL/min Glucose Level 109 Calcium Level 8.6 Test 07/09/18 05:40 07/09/18 09:09 07/09/18 11:51 Bedside Glucose 116 125 138 Exam/Review of Systems Vital Signs Vitals Vital Signs Date Temp Pulse Resp B/P (MAP) Pulse Ox O2 O2 Flow FiO2 Time Delivery Rate 07/09/18 58 12:00 07/09/18 98.7 18 137/77 99 Mechanical 11:40 (97) Ventilator 07/09/18 30 11:10 Intake and Output 07/08/18 07/08/18 07/09/18 1515:00 23:00 07:00 IntakeIntake Total 300 ml 870 ml 970 ml OutputOutput Total 1000 ml 1100 ml BalanceBalance 300 ml -130 ml -130 ml Medications Medications Current Medications IV Flush (NS 3 ml) 3 ml PER PROTOCOL IV ; Start 07/01/18 at 00:00 Ondansetron HCl (Zofran Inj) 4 mg Q6H PRN IV NAUSEA AND/OR VOMITING; Start 06/22 at 00:00 Albuterol (Proventil 0.083% (Neb)) 2.5 mg Q2H RESP THERAPY PRN NEB SHORTNESS OF BREATH; Start 07/01/18 at 00:00 Ipratropium [place] (Atrovent 0.02% (Neb)) 0.5 mg Q2H RESP THERAPY PRN NEB SHORTNESS OF BREATH; Start 07/01/18 at 00:00 Acetaminophen (Tylenol Liquid) 650 mg Q6H PRN PO PAIN LEVEL 1-3 OR FEVER; Start 07/01/18 at 00:00 Morphine Sulfate (morphine) 2 mg Q4H PRN IV PAIN LEVEL 7-10 Last administered on 07/05/18at 22:10; Admin Dose 2 MG; Start 07/01/18 at 00:00 Docusate Sodium (Colace) 100 mg Q12H PRN PO CONSTIPATION; Start 07/01/18 at 00:00 Magnesium Hydroxide (Milk Of Mag) 30 ml DAILY PRN PO CONSTIPATION; Start 07/01/18 at 00:00 Atorvastatin Calcium (Lipitor) 80 mg QHS GTB Last administered on 07/08/18at 21:19; Admin Dose 80 MG; Start 07/01/18 at 21:00 Bisacodyl (Dulcolax Supp) 10 mg Q24H PRN [place] NEEDED; Start 07/01/18 at 00:00 Carvedilol (Coreg) 3.125 mg BID GTB Last administered on 07/09/18at 09:18; Admin Dose 3.125 MG; Start 07/01/18 at 09:00 Valproate Sodium (Depakene Liquid Cup) 500 mg Q8H GTB Last administered on 07/09/18at 09:15; Admin Dose 500 MG; Start 07/01/18 at 00:00 Insulin Aspart (Novolog Insulin Pen) NOVOLOG *MILD* ALGORITHM Q6 SC Last ad ministered on 07/08/18at 12:24; Admin Dose 1 UNIT; Start 07/01/18 at 00:00 Miscellaneous Information 1 ea NOTE XX ; Start 07/01/18 at 00:30 Glucose (Glutose) 15 gm Q15M PRN PO DECREASED GLUCOSE; Start 07/01/18 at 00:30 Glucose (Glutose) 22.5 gm Q15M PRN PO DECREASED GLUCOSE; Start 07/01/18 at 00:30 Dextrose (D50w Syringe) 25 ml Q15M PRN IV DECREASED GLUCOSE; Start 07/01/18 at 00:30 Dextrose (D50w Syringe) 50 ml Q15M PRN IV DECREASED GLUCOSE; Start 07/01/18 at 00:30 Glucagon (Glucagen) 1 mg Q15M PRN IM DECREASED GLUCOSE; Start 07/01/18 at 00:30 Glucose (Glutose) 15 gm Q15M PRN BUCCAL DECREASED GLUCOSE; Start 07/01/18 at 00:30 Aspirin (Aspirin) 162 mg DAILY PEG Last administered on 07/09/18at 09:18; Admin Dose 162 MG; Start 07/01/18 at 12:30 IV Flush (NS 10 ml) 10 ml PRN PRN IV FLUSH LINE; Start 07/02/18 at 14:00 Furosemide (Lasix) 20 mg DAILY IV Last administered on 07/09/18at 09:19; Admin Dose 20 MG; Start 07/04/18 at 09:00 Cefepime HCl 50 ml @ 100 mls/hr Q12 IVPB Last administered on 07/09/18at 09:16; Admin Dose 100 MLS/HR; Start 07/04/18 at 21:00 Insulin Human NPH (Humulin N) 20 unit Q8H SC Last administered on 07/09/18at 09:36; Admin Dose 20 UNIT; Start 07/05/18 at 16:00 Lansoprazole (Prevacid) 30 mg DAILY@06 GTB Last administered on 07/09/18at 05:41; Admin Dose 30 MG; Start 07/06/18 at 06:00 Haloperidol (Haldol) 5 mg Q4 PRN IV AGITATION Last administered on 07/05/18at 22:28; Admin Dose 5 MG; Start 07/05/18 at 22:30 Enoxaparin Sodium (Lovenox) 40 mg DAILY SC Last administered on 07/09/18at 09:42; Admin Dose 40 MG; Start 07/06/18 at 09:00 Vancomycin HCl (Vanco Iv Per Pharmacy) VANCOMYCIN PER PHARMACY PER PROTOCOL XX ; Start 07/06/18 at 09:00 Vancomycin HCl 1.25 gm/Sodium Chloride 250 ml @ 83.333 mls/ hr Q12H IVPB Last administered on 07/09/18at 10:30; Admin Dose 83.333 MLS/HR; Start 07/06/18 at 11:00 Benazepril HCl (Lotensin) 10 mg DAILY PO Last administered on 07/09/18at 09:18; Admin Dose 10 MG; Start 07/09/18 at 09:00 REGINA BUI Jul 09, 2018 14:29
--- NOTE | 2018-07-09 14:32 | CONS ---
Date/Time of Note Date/Time of Note DATE: 07/09/18 TIME: 14:31 Assessment/Plan Assessment/Plan Hospital Course IMPRESSION: 1. Hypotension/shock state and likely septic.- now off levophed and tolerating BB/ACEI 2. Cardiomyopathy with decreased left ventricular ejection fraction, last known to be 30% by echo in 01/2018.-neg trop x 3 3. History of prior percutaneous transluminal coronary angioplasty and stent placements, most recently to LAD in 2014. 4. Urinary tract infection, likely urosepsis. 5. Diabetes mellitus. 6. Chronic respiratory failure, status post tracheostomy. 7. Dysphagia, status post G-tube. 8. Chronic encephalopathy. 9. Leukocytosis. 10. History of hemorrhagic cerebrovascular accident. 11.NSVT 12. Bradycardia-Overnight. Follow for sig recurrence Recc: -Now back in icu -Continue BB/ACEI as tolerated and follow BP closely which has been very labile -Follow volume status clsoely -F/U cx data and continue cefepime -Continue gentle lasix diuresis -Continue asa -s/p bronchoscopy Result Diagram: 07/09/1852107/09/18 0522 Results 24hrs Laboratory Tests Test 07/08/18 15:25 07/08/18 17:24 07/08/18 23:31 07/09/18 05:22 Bedside Glucose 130 128 126 White Blood Count 4.8 Red Blood Count 3.16 L Hemoglobin 8.1 L Hematocrit 26.2 L Mean Corpuscular 82.9 Volume Mean Corpuscular 25.6 L Hemoglobin Mean Corpuscular 30.9 L Hemoglobin Concent Red Cell 16.2 H Distribution Width Platelet Count 309 Mean Platelet Volume 10.2 Immature 0.400 Granulocytes % Neutrophils % 52.0 Lymphocytes % 29.4 Monocytes % 11.8 H Eosinophils % 5.6 Basophils % 0.8 Nucleated Red Blood 0.0 Cells % Immature 0.020 Granulocytes # Neutrophils # 2.5 Lymphocytes # 1.4 Monocytes # 0.6 Eosinophils # 0.3 Basophils # 0.0 Nucleated Red Blood 0.0 Cells # Sodium Level 136 Potassium Level 3.8 Chloride Level 102 Carbon Dioxide Level 30 Anion Gap 4 L Blood Urea Nitrogen 18 Creatinine 0.62 Est Glomerular > 60 Filtrat Rate mL/min Glucose Level 109 Calcium Level 8.6 Test 07/09/18 05:40 07/09/18 09:09 07/09/18 11:51 Bedside Glucose 116 125 138 Consultation Date/Type/Reason Admit Date/Time Jun 30, 2018 at 16:55 Initial Consult Date 06/30/18 Type of Consult cardiology Reason for Consultation Cardiomyopathy/CHF Requesting Provider: NIA DOMINGO MD Exam/Review of Systems Vital Signs Vitals Vital Signs Date Temp Pulse Resp B/P (MAP) Pulse Ox O2 O2 Flow FiO2 Time Delivery Rate 07/09/18 58 12:00 07/09/18 98.7 18 137/77 99 Mechanical 11:40 (97) Ventilator 07/09/18 30 11:10 Intake and Output 07/08/18 07/08/18 07/09/18 1515:00 23:00 07:00 IntakeIntake Total 300 ml 870 ml 970 ml OutputOutput Total 1000 ml 1100 ml BalanceBalance 300 ml -130 ml -130 ml Exam Review of Systems: CONSTITUTIONAL: No fevers, chills. PULMONARY: No sob CARDIOVASCULAR: No chest pain/palpitations GASTROINTESTINAL: No nausea/vomiting. GENITOURINARY: No hematuria/dysuria. MUSCULOSKELETAL: No myagias/arthalgias. PSYCHIATRIC: The patient denies depression. NEUROLOGIC: No weakness Constitutional: alert Psych: no complaints Head: normocephalic ENMT: mucosa pink and moist Neck: supple, jvd (9 cm water) Respiratory: diminished breath sounds (at bases/B) Cardiovascular: regular rate and rhythm Gastrointestinal: soft, non-tender Musculoskeletal: muscle tone (normal) Extremities: edema (none) Neurological: other (encephalopathic) Medications Medications Current Medications IV Flush (NS 3 ml) 3 ml PER PROTOCOL IV ; Start 07/01/18 at 00:00 Ondansetron HCl (Zofran Inj) 4 mg Q6H PRN IV NAUSEA AND/OR VOMITING; Start 07/01/18 at 00:00 Albuterol (Proventil 0.083% (Neb)) 2.5 mg Q2H RESP THERAPY PRN NEB SHORTNESS OF BREATH; Start 07/01/18 at 00:00 Ipratropium [place] (Atrovent 0.02% (Neb)) 0.5 mg Q2H RESP THERAPY PRN NEB SHORTNESS OF BREATH; Start 07/01/18 at 00:00 Acetaminophen (Tylenol Liquid) 650 mg Q6H PRN PO PAIN LEVEL 1-3 OR FEVER; Start 07/01/18 at 00:00 Morphine Sulfate (morphine) 2 mg Q4H PRN IV PAIN LEVEL 7-10 Last administered on 07/05/18at 22:10; Admin Dose 2 MG; Start 07/01/18 at 00:00 Docusate Sodium (Colace) 100 mg Q12H PRN PO CONSTIPATION; Start 07/01/18 at 0 0:00 Magnesium Hydroxide (Milk Of Mag) 30 ml DAILY PRN PO CONSTIPATION; Start 07/01/18 at 00:00 Atorvastatin Calcium (Lipitor) 80 mg QHS GTB Last administered on 07/08/18at 21:19; Admin Dose 80 MG; Start 07/01/18 at 21:00 Bisacodyl (Dulcolax Supp) 10 mg Q24H PRN [place] NEEDED; Start 07/01/18 at 00:00 Carvedilol (Coreg) 3.125 mg BID GTB Last administered on 07/09/18at 09:18; Admin Dose 3.125 MG; Start 07/01/18 at 09:00 Valproate Sodium (Depakene Liquid Cup) 500 mg Q8H GTB Last administered on at 09:15; Admin Dose 500 MG; Start 07/01/18 at 00:00 Insulin Aspart (Novolog Insulin Pen) NOVOLOG *MILD* ALGORITHM Q6 SC Last administered on 07/08/18at 12:24; Admin Dose 1 UNIT; Start 07/01/18 at 00:00 Miscellaneous Information 1 ea NOTE XX ; Start 07/01/18 at 00:30 Glucose (Glutose) 15 gm Q15M PRN PO DECREASED GLUCOSE; Start 07/01/18 at 00:30 Glucose (Glutose) 22.5 gm Q15M PRN PO DECREASED GLUCOSE; Start 07/01/18 at 00:30 Dextrose (D50w Syringe) 25 ml Q15M PRN IV DECREASED GLUCOSE; Start 07/01/18 at 00:30 Dextrose (D50w Syringe) 50 ml Q15M PRN IV DECREASED GLUCOSE; Start 07/01/18 at 00:30 Glucagon (Glucagen) 1 mg Q15M PRN IM DECREASED GLUCOSE; Start 07/01/18 at 00:30 Glucose (Glutose) 15 gm Q15M PRN BUCCAL DECREASED GLUCOSE; Start 07/01/18 at 00:30 Aspirin (Aspirin) 162 mg DAILY PEG Last administered on 07/09/18 09:18; Admin Dose 162 MG; Start 07/01/18 at 12:30 IV Flush (NS 10 ml) 10 ml PRN PRN IV FLUSH LINE; Start 07/02/18 at 14:00 Furosemide (Lasix) 20 mg DAILY IV Last administered on 07/09/18 09:19; Admin Dose 20 MG; Start 07/04/18 at 09:00 Cefepime HCl 50 ml @ 100 mls/hr Q12 IVPB Last administered on 07/09/18 09:16; Admin Dose 100 MLS/HR; Start 07/04/18 at 21:00 Insulin Human NPH (Humulin N) 20 unit Q8H SC Last administered on 07/09/18 09:36; Admin Dose 20 UNIT; Start 07/05/18 at 16:00 Lansoprazole (Prevacid) 30 mg DAILY@06 GTB Last administered on 07/09/18 05:41; Admin Dose 30 MG; Start 07/06/18 at 06:00 Haloperidol (Haldol) 5 mg Q4 PRN IV AGITATION Last administered on 07/05/18 22:28; Admin Dose 5 MG; Start 07/05/18 at 22:30 Enoxaparin Sodium (Lovenox) 40 mg DAILY SC Last administered on 07/09/18 09:42; Admin Dose 40 MG; Start 07/06/18 at 09:00 Vancomycin HCl (Vanco Iv Per Pharmacy) VANCOMYCIN PER PHARMACY PER PROTOCOL XX ; Start 07/06/18 at 09:00 Vancomycin HCl 1.25 gm/Sodium Chloride 250 ml @ 83.333 mls/ hr Q12H IVPB Last administered on 07/09/18 10:30; Admin Dose 83.333 MLS/HR; Start 07/06/18 at 11:00 Benazepril HCl (Lotensin) 10 mg DAILY PO Last administered on 07/09/18 09:18; Admin Dose 10 MG; Start 07/09/18 at 09:00 MAE ROSLAES Jul 09, 2018 14:32
[2018-07-09] MEDS: ATORVASTATIN 80 MG TAB GTB SCH (21:25)
[2018-07-10] VITALS (24 sets, daily range): BP systolic 110–140; BP diastolic 55–69; PULSE 43–76; RESP 16–21
[2018-07-10] MEDS: LANSOPRAZOLE 30 MG CAP GTB SCH (05:10)
[2018-07-10] MEDS: INSULIN ASPART [NOVOLOG] 3 ML PEN SC SCH ×3 (05:14→17:46)
[2018-07-10] MEDS: FUROSEMIDE 20 MG INJ IV SCH (08:51)
[2018-07-10] MEDS: VALPROIC ACID LIQUID CUP 250 MG/5 ML CUP GTB SCH ×2 (08:51→15:53)
[2018-07-10] MEDS: ASPIRIN 81 MG TAB PEG SCH (08:53)
[2018-07-10] MEDS: CEFEPIME 1GM/50 ML (PMX) 50 ML IVPB SCH ×2 (08:53→20:58)
[2018-07-10] MEDS: BENAZEPRIL 10 MG TAB PO SCH (08:54)
[2018-07-10] MEDS: ENOXAPARIN 40 MG/0.4 ML SYG SC SCH (08:57)
[2018-07-10] MEDS: NPH, HUMAN INSULIN ISOPHANE 3ML VIAL SC SCH ×2 (08:57→16:00)
[2018-07-10] MEDS: VANCOMYCIN HCL 1.25 GM in SOD CHLORIDE 0.9% 250 ML IVPB SCH ×2 (11:12→22:40)
--- NOTE | 2018-07-10 12:35 | CONS ---
Date/Time of Note Date/Time of Note DATE: 07/10/18 TIME: 12:33 Assessment/Plan Assessment/Plan Assessment/Plan 1. Hypotension/shock state and likely septic.- now off levophed and tolerating BB/ACEI - BP better now - con't monitoring 2. Cardiomyopathy with decreased left ventricular ejection fraction, last known to be 30% by echo in 01/2018.-neg trop x 3 - will monitor clinically 3. History of prior percutaneous transluminal coronary angioplasty and stent placements, most recently to LAD in 2014. On meds now. 4. Urinary tract infection, likely urosepsis. 5. Diabetes mellitus. 6. Chronic respiratory failure, status post tracheostomy- con't resp Rx. 7. Dysphagia, status post G-tube. 8. Chronic encephalopathy. 9. Leukocytosis. 10. History of hemorrhagic cerebrovascular accident. 11.NSVT - now in sinus on tele. 12. Bradycardia-Overnight. Follow for sig recurrence Result Diagram: 07/10/18 0507 07/10/18 0507 Results 24hrs Laboratory Tests Test 07/09/18 17:04 07/09/18 17:50 07/09/18 23:37 07/10/18 05:07 Bedside Glucose 126 140 100 White Blood Count 5.6 Red Blood Count 3.29 L Hemoglobin 8.6 L Hematocrit 27.4 L Mean Corpuscular 83.3 Volume Mean Corpuscular 26.1 L Hemoglobin Mean Corpuscular 31.4 L Hemoglobin Concent Red Cell 16.2 H Distribution Width Platelet Count 342 Mean Platelet Volume 10.5 H Immature 0.200 Granulocytes % Neutrophils % 57.9 Lymphocytes % 27.0 Monocytes % 8.5 Eosinophils % 5.9 Basophils % 0.5 Nucleated Red Blood 0.0 Cells % Immature 0.010 Granulocytes # Neutrophils # 3.3 Lymphocytes # 1.5 Monocytes # 0.5 Eosinophils # 0.3 Basophils # 0.0 Nucleated Red Blood 0.0 Cells # Sodium Level 136 Potassium Level 3.9 Chloride Level 101 Carbon Dioxide Level 30 Anion Gap 5 Blood Urea Nitrogen 18 Creatinine 0.56 L Est Glomerular > 60 Filtrat Rate mL/min Glucose Level 109 Calcium Level 8.6 Test 07/10/18 05:12 07/10/18 11:23 Bedside Glucose 101 110 Consultation Date/Type/Reason Admit Date/Time Jun 30, 2018 at 16:55 Initial Consult Date Requesting Provider: NIA DOMINGO MD 24 HR Interval Summary Free Text/Dictation NO acute events - pt clinically stable - con't resp support ROS: No fever, no chills, no nausea, no vomiting, no diarrhea/constipation - per nurse - pt non verbal Exam/Review of Systems Vital Signs Vitals Vital Signs Date Temp Pulse Resp B/P (MAP) Pulse Ox O2 O2 Flow FiO2 Time Delivery Rate 07/10/18 98.6 63 20 130/65 100 11:18 (86) 07/10/18 30 11:15 07/10/18 Mechanical 03:46 Ventilator Intake and Output 07/09/18 07/09/18 07/10/18 1515:00 23:00 07:00 IntakeIntake Total 50 ml 770 ml 950 ml OutputOutput Total 1550 ml 700 ml BalanceBalance 50 ml -780 ml 250 ml Exam General: WN/WD/NAD, AOx 0 HEENT: Unicetric/h/o ICH/EOMI (does not follow commands) NECK: trach Lymph: no lymphadenopathy HEART: regular with no S3, II/ systolic murmur at apex LUNGS: Coarse sounds ABD: soft, NT, ND, +BS : Intact Neuro: non focal SKIN: chronic changes EXT: trace edema Medications Medications Current Medications IV Flush (NS 3 ml) 3 ml PER PROTOCOL IV ; Start 07/01/18 at 00:00 Ondansetron HCl (Zofran Inj) 4 mg Q6H PRN IV NAUSEA AND/OR VOMITING; Start 07/01/18 at 00:00 Albuterol (Proventil 0.083% (Neb)) 2.5 mg Q2H RESP THERAPY PRN NEB SHORTNESS OF BREATH; Start 07/01/18 at 00:00 Ipratropium [place] (Atrovent 0.02% (Neb)) 0.5 mg Q2H RESP THERAPY PRN NEB SHORTNESS OF BREATH; Start 07/01/18 at 00:00 Acetaminophen (Tylenol Liquid) 650 mg Q6H PRN PO PAIN LEVEL 1-3 OR FEVER; Start 07/01/18 at 00:00 Morphine Sulfate (morphine) 2 mg Q4H PRN IV PAIN LEVEL 7-10 Last administered on 07/05/18at 22:10; Admin Dose 2 MG; Start 07/01/18 at 00:00 Docusate Sodium (Colace) 100 mg Q12H PRN PO CONSTIPATION; Start 07/01/18 at 00:00 Magnesium Hydroxide (Milk Of Mag) 30 ml DAILY PRN PO CONSTIPATION; Start 07/01/18 at 00:00 Atorvastatin Calcium (Lipitor) 80 mg QHS GTB Last administered on 07/09/18at 21:25; Admin Dose 80 MG; Start 07/01/18 at 21:00 Bisacodyl (Dulcolax Supp) 10 mg Q24H PRN [place] NEEDED; Start 07/01/18 at 00:00 Carvedilol (Coreg) 3.125 mg BID GTB Last administered on 07/09/18at 09:18; Admin Dose 3.125 MG; Start 07/01/18 at 09:00 Valproate Sodium (Depakene Liquid Cup) 500 mg Q8H GTB Last administered on 07/10/18at 08:51; Admin Dose 500 MG; Start 07/01/18 at 00:00 Insulin Aspart (Novolog Insulin Pen) NOVOLOG *MILD* ALGORITHM Q6 SC Last administered on 07/08/18at 12:24; Admin Dose 1 UNIT; Start 07/01/18 at 00:00 Miscellaneous Information 1 ea NOTE XX ; Start 07/01/18 at 00:30 Glucose (Glutose) 15 gm Q15M PRN PO DECREASED GLUCOSE; Start 07/01/18 at 00:30 Glucose (Glutose) 22.5 gm Q15M PRN PO DECREASED GLUCOSE; Start 07/01/18 at 00 :30 Dextrose (D50w Syringe) 25 ml Q15M PRN IV DECREASED GLUCOSE; Start 07/01/18 at 00:30 Dextrose (D50w Syringe) 50 ml Q15M PRN IV DECREASED GLUCOSE; Start 07/01/18 at 00:30 Glucagon (Glucagen) 1 mg Q15M PRN IM DECREASED GLUCOSE; Start 07/01/18 at 00:30 Glucose (Glutose) 15 gm Q15M PRN BUCCAL DECREASED GLUCOSE; Start 07/01/18 at 00:30 Aspirin (Aspirin) 162 mg DAILY PEG Last administered on 07/10/18at 08:53; Admin Dose 162 MG; Start 07/01/18 at 12:30 IV Flush (NS 10 ml) 10 ml PRN PRN IV FLUSH LINE; Start 07/02/18 at 14:00 Furosemide (Lasix) 20 mg DAILY IV Last administered on 07/10/18 08:51; Admin Dose 20 MG; Start 07/04/18 at 09:00 Cefepime HCl 50 ml @ 100 mls/hr Q12 IVPB Last administered on 07/10/18 08:53; Admin Dose 100 MLS/HR; Start 07/04/18 at 21:00 Insulin Human NPH (Humulin N) 20 unit Q8H SC Last administered on 07/10/18 08:57; Admin Dose 20 UNIT; Start 07/05/18 at 16:00 Lansoprazole (Prevacid) 30 mg DAILY@06 GTB Last administered on 07/10/18 05:10; Admin Dose 30 MG; Start 07/06/18 at 06:00 Haloperidol (Haldol) 5 mg Q4 PRN IV AGITATION Last administered on 07/05/18 22:28; Admin Dose 5 MG; Start 07/05/18 at 22:30 Enoxaparin Sodium (Lovenox) 40 mg DAILY SC Last administered on 07/10/18 08:57; Admin Dose 40 MG; Start 07/06/18 at 09:00 Vancomycin HCl (Vanco Iv Per Pharmacy) VANCOMYCIN PER PHARMACY PER PROTOCOL XX ; Start 07/06/18 at 09:00 Vancomycin HCl 1.25 gm/Sodium Chloride 250 ml @ 83.333 mls/ hr Q12H IVPB Last administered on 07/10/18 11:12; Admin Dose 83.333 MLS/HR; Start 07/06/18 at 11:00 Benazepril HCl (Lotensin) 10 mg DAILY PO Last administered on 07/10/18 08:54; Admin Dose 10 MG; Start 07/09/18 at 09:00 KYLEIGH MENDENHALL MD Jul 10, 2018 12:35
--- NOTE | 2018-07-10 14:32 | CONS ---
Date/Time of Note Date/Time of Note DATE: 07/10/18 TIME: 14:29 Consult Date/Type/Reason Admit Date/Time Jun 30, 2018 at 16:55 Initial Consult Date Type of Consultation: Pulm Requesting Provider: NIA DOMINGO MD Subjective No events. Stable on the vent. Objective Vital Signs Date Temp Pulse Resp B/P (MAP) Pulse Ox O2 O2 Flow FiO2 Time Delivery Rate 07/10/18 50 16 100 30 13:06 07/10/18 98.6 130/65 11:18 (86) 07/10/18 Mechanical 03:46 Ventilator Intake and Output 07/09/18 07/09/18 07/10/18 1515:00 23:00 07:00 IntakeIntake Total 50 ml 770 ml 950 ml OutputOutput Total 1550 ml 700 ml BalanceBalance 50 ml -780 ml 250 ml Exam HEENT: Neck supple; no JVD; no LAD; + trach CVS: [place], S1 and S2 CHEST: Coarse BS ABD: Soft, NT, + BS EXT: No c/c/e Results/Medications Result Diagram: 07/10/18 0507 07/10/18 0507 Results 24 hrs Laboratory Tests Test 07/09/18 17:04 07/09/18 17:50 07/09/18 23:37 07/10/18 05:07 Bedside Glucose 126 140 100 White Blood Count 5.6 Red Blood Count 3.29 L Hemoglobin 8.6 L Hematocrit 27.4 L Mean Corpuscular 83.3 Volume Mean Corpuscular 26.1 L Hemoglobin Mean Corpuscular 31.4 L Hemoglobin Concent Red Cell 16.2 H Distribution Width Platelet Count 342 Mean Platelet Volume 10.5 H Immature 0.200 Granulocytes % Neutrophils % 57.9 Lymphocytes % 27.0 Monocytes % 8.5 Eosinophils % 5.9 Basophils % 0.5 Nucleated Red Blood 0.0 Cells % Immature 0.010 Granulocytes # Neutrophils # 3.3 Lymphocytes # 1.5 Monocytes # 0.5 Eosinophils # 0.3 Basophils # 0.0 Nucleated Red Blood 0.0 Cells # Sodium Level 136 Potassium Level 3.9 Chloride Level 101 Carbon Dioxide Level 30 Anion Gap 5 Blood Urea Nitrogen 18 Creatinine 0.56 L Est Glomerular > 60 Filtrat Rate mL/min Glucose Level 109 Calcium Level 8.6 Test 07/10/18 05:12 07/10/18 11:23 Bedside Glucose 101 110 Medications Current Medications IV Flush (NS 3 ml) 3 ml PER PROTOCOL IV ; Start 07/01/18 at 00:00 Ondansetron HCl (Zofran Inj) 4 mg Q6H PRN IV NAUSEA AND/OR VOMITING; Start 07/01/18 at 00:00 Albuterol (Proventil 0.083% (Neb)) 2.5 mg Q2H RESP THERAPY PRN NEB SHORTNESS OF BREATH; Start 07/01/18 at 00:00 Ipratropium [place] (Atrovent 0.02% (Neb)) 0.5 mg Q2H RESP THERAPY PRN NEB SHORTNESS OF BREATH; Start 07/01/18 at 00:00 Acetaminophen (Tylenol Liquid) 650 mg Q6H PRN PO PAIN LEVEL 1-3 OR FEVER; Start 07/01/18 at 00:00 Morphine Sulfate (morphine) 2 mg Q4H PRN IV PAIN LEVEL 7-10 Last administered on 07/05/18at 22:10; Admin Dose 2 MG; Start 07/01/18 at 00:00 Docusate Sodium (Colace) 100 mg Q12H PRN PO CONSTIPATION; Start 07/01/18 at 00:00 Magnesium Hydroxide (Milk Of Mag) 30 ml DAILY PRN PO CONSTIPATION; Start 07/01/18 at 00:00 Atorvastatin Calcium (Lipitor) 80 mg QHS GTB Last administered on 07/09/18at 21:25; Admin Dose 80 MG; Start 07/01/18 at 21:00 Bisacodyl (Dulcolax Supp) 10 mg Q24H PRN [place] NEEDED; Start 07/01/18 at 00:00 Carvedilol (Coreg) 3.125 mg BID GTB Last administered on 07/09/18at 09:18; Admin Dose 3.125 MG; Start 07/01/18 at 09:00 Valproate Sodium (Depakene Liquid Cup) 500 mg Q8H GTB Last administered on 07/10/18at 08:51; Admin Dose 500 MG; Start 07/01/18 at 00:00 Insulin Aspart (Novolog Insulin Pen) NOVOLOG *MILD* ALGORITHM Q6 SC Last administered on 07/08/18at 12:24; Admin Dose 1 UNIT; Start 07/01/18 at 00:00 Miscellaneous Information 1 ea NOTE XX ; Start 07/01/18 at 00:30 Glucose (Glutose) 15 gm Q15M PRN PO DECREASED GLUCOSE; Start 07/01/18 at 00:30 Glucose (Glutose) 22.5 gm Q15M PRN PO DECREASED GLUCOSE; Start 07/01/18 at 00:30 Dextrose (D50w Syringe) 25 ml Q15M PRN IV DECREASED GLUCOSE; Start 07/01/18 at 00:30 Dextrose (D50w Syringe) 50 ml Q15M PRN IV DECREASED GLUCOSE; Start 07/01/18 at 00:30 Glucagon (Glucagen) 1 mg Q15M PRN IM DECREASED GLUCOSE; Start 07/01/18 at 00:30 Glucose (Glutose) 15 gm Q15M PRN BUCCAL DECREASED GLUCOSE; Start 07/01/18 at 00:30 Aspirin (Aspirin) 162 mg DAILY PEG Last administered on 07/10/18at 08:53; Admin Dose 162 MG; Start 07/01/18 at 12:30 IV Flush (NS 10 ml) 10 ml PRN PRN IV FLUSH LINE; Start 07/02/18 at 14:00 Furosemide (Lasix) 20 mg DAILY IV Last administered on 07/10/18at 08:51; Admin Dose 20 MG; Start 07/04/18 at 09:00 Cefepime HCl 50 ml @ 100 mls/hr Q12 IVPB Last administered on 07/10/18 08:53; Admin Dose 100 MLS/HR; Start 07/04/18 at 21:00 Insulin Human NPH (Humulin N) 20 unit Q8H SC Last administered on 07/10/18at 08:57; Admin Dose 20 UNIT; Start 07/05/18 at 16:00 Lansoprazole (Prevacid) 30 mg DAILY@06 GTB Last administered on 07/10/18at 05:10; Admin Dose 30 MG; Start 07/06/18 at 06:00 Haloperidol (Haldol) 5 mg Q4 PRN IV AGITATION Last administered on 07/05/18at 22:28; Admin Dose 5 MG; Start 07/05/18 at 22:30 Enoxaparin Sodium (Lovenox) 40 mg DAILY SC Last administered on 07/10/18at 08:57; Admin Dose 40 MG; Start 07/06/18 at 09:00 Vancomycin HCl (Vanco Iv Per Pharmacy) VANCOMYCIN PER PHARMACY PER PROTOCOL XX ; Start 07/06/18 at 09:00 Vancomycin HCl 1.25 gm/Sodium Chloride 250 ml @ 83.333 mls/ hr Q12H IVPB Last administered on 07/10/18at 11:12; Admin Dose 83.333 MLS/HR; Start 07/06/18 at 11:00 Benazepril HCl (Lotensin) 10 mg DAILY PO Last administered on 07/10/18at 08:54; Admin Dose 10 MG; Start 07/09/18 at 09:00 Assessment/Plan Additional Assessment/Plan IMP: 1. VDRF 2. s/p R lung ATX 3. Cardiomyopathy 4. Chronic encephalopathy 5. Urosepsis RECS: 1. Vent support; t-tube as tolerated 2. BD's/CPT VICTOR M MCKEON MD Jul 10, 2018 14:32
--- NOTE | 2018-07-10 16:47 | PN ---
Date/Time of Note Date/Time of Note DATE: 07/10/18 TIME: 16:46 Assessment/Plan VTE Prophylaxis Risk score (from Ns)>0 risk: 9 SCD applied (from Ns): Yes Lines/Catheters IV Catheter Type (from Nrs): PICC Line Central line still needed: Yes Urinary Cath still in place: Yes Reason Cath still needed: urinary retention Assessment/Plan Assessment/Plan -Lung atelectasis, status post bronchoscopy by Dr. Wall on 07/06/2018. -Sepsis most likely secondary to HCAP and urinary tract infection, f/up on urine and blood cultures. Continue broad-spectrum antibiotics. Dr. Hodge is following in infection disease consultation. -Septic shock, resolving. -ARF, continue ventilatory support. Dr Mitchell is following in pulmonology consultation. -Chronic tracheostomy -Dysphagia with PEG -Coronary artery disease status post stent placement to LAD and RCA. Dr. Vincent is following in cardiology consultation. -Cardiomyopathy with ejection fraction of 25-30% -Hypertension -Diabetes -Morbid obesity -Chronic encephalopathy Result Diagram: 07/10/18 0507 07/10/18 0507 Results 24hrs Laboratory Tests Test 07/09/18 17:04 07/09/18 17:50 07/09/18 23:37 07/10/18 05:07 Bedside Glucose 126 140 100 White Blood Count 5.6 Red Blood Count 3.29 L Hemoglobin 8.6 L Hematocrit 27.4 L Mean Corpuscular 83.3 Volume Mean Corpuscular 26.1 L Hemoglobin Mean Corpuscular 31.4 L Hemoglobin Concent Red Cell 16.2 H Distribution Width Platelet Count 342 Mean Platelet Volume 10.5 H Immature 0.200 Granulocytes % Neutrophils % 57.9 Lymphocytes % 27.0 Monocytes % 8.5 Eosinophils % 5.9 Basophils % 0.5 Nucleated Red Blood 0.0 Cells % Immature 0.010 Granulocytes # Neutrophils # 3.3 Lymphocytes # 1.5 Monocytes # 0.5 Eosinophils # 0.3 Basophils # 0.0 Nucleated Red Blood 0.0 Cells # Sodium Level 136 Potassium Level 3.9 Chloride Level 101 Carbon Dioxide Level 30 Anion Gap 5 Blood Urea Nitrogen 18 Creatinine 0.56 L Est Glomerular > 60 Filtrat Rate mL/min Glucose Level 109 Calcium Level 8.6 Test 07/10/18 05:12 07/10/18 11:23 07/10/18 15:56 Bedside Glucose 101 110 92 Exam/Review of Systems Vital Signs Vitals Vital Signs Date Temp Pulse Resp B/P (MAP) Pulse Ox O2 O2 Flow FiO2 Time Delivery Rate 07/10/18 54 16 99 30 15:48 07/10/18 98.9 128/64 15:35 (85) 07/10/18 Mechanical 03:46 Ventilator Intake and Output 07/09/18 07/09/18 07/10/18 1515:00 23:00 07:00 IntakeIntake Total 50 ml 770 ml 950 ml OutputOutput Total 1550 ml 700 ml BalanceBalance 50 ml -780 ml 250 ml Medications Medications Current Medications IV Flush (NS 3 ml) 3 ml PER PROTOCOL IV ; Start 07/01/18 at 00:00 Ondansetron HCl (Zofran Inj) 4 mg Q6H PRN IV NAUSEA AND/OR VOMITING; Start 07/01/18 at 00:00 Albuterol (Proventil 0.083% (Neb)) 2.5 mg Q2H RESP THERAPY PRN NEB SHORTNESS OF BREATH; Start 07/01/18 at 00:00 Ipratropium [place] (Atrovent 0.02% (Neb)) 0.5 mg Q2H RESP THERAPY PRN NEB SHORTNESS OF BREATH; Start 07/01/18 at 00:00 Acetaminophen (Tylenol Liquid) 650 mg Q6H PRN PO PAIN LEVEL 1-3 OR FEVER; Start 07/01/18 at 00:00 Morphine Sulfate (morphine) 2 mg Q4H PRN IV PAIN LEVEL 7-10 Last administered on 07/05/18at 22:10; Admin Dose 2 MG; Start 07/01/18 at 00:00 Docusate Sodium (Colace) 100 mg Q12H PRN PO CONSTIPATION; Start 07/01/18 at 00:00 Magnesium Hydroxide (Milk Of Mag) 30 ml DAILY PRN PO CONSTIPATION; Start 07/01/18 at 00:00 Atorvastatin Calcium (Lipitor) 80 mg QHS GTB Last administered on 07/09/18at 21:25; Admin Dose 80 MG; Start 07/01/18 at 21:00 Bisacodyl (Dulcolax Supp) 10 mg Q24H PRN [place] NEEDED; Start 07/01/18 at 00:00 Carvedilol (Coreg) 3.125 mg BID GTB Last administered on 07/09/18at 09:18; Admin Dose 3.125 MG; Start 07/01/18 at 09:00 Valproate Sodium (Depakene Liquid Cup) 500 mg Q8H GTB Last administered on 07/10/18at 15:53; Admin Dose 500 MG; Start 07/01/18 at 00:00 Insulin Aspart (Novolog Insulin Pen) NOVOLOG *MILD* ALGORITHM Q6 SC Last administered on 07/08/18at 12:24; Admin Dose 1 UNIT; Start 07/01/18 at 00:00 Miscellaneous Information 1 ea NOTE XX ; Start 07/01/18 at 00:30 Glucose (Glutose) 15 gm Q15M PRN PO DECREASED GLUCOSE; Start 07/01/18 at 00:30 Glucose (Glutose) 22.5 gm Q15M PRN PO DECREASED GLUCOSE; Start 07/01/18 at 00:30 Dextrose (D50w Syringe) 25 ml Q15M PRN IV DECREASED GLUCOSE; Start 07/01/18 at 00:30 Dextrose (D50w Syringe) 50 ml Q15M PRN IV DECREASED GLUCOSE; Start 07/01/18 at 00:30 Glucagon (Glucagen) 1 mg Q15M PRN IM DECREASED GLUCOSE; Start 07/01/18 at 00:30 Glucose (Glutose) 15 gm Q15M PRN BUCCAL DECREASED GLUCOSE; Start 07/01/18 at 00:30 Aspirin (Aspirin) 162 mg DAILY PEG Last administered on 07/10/18at 08:53; Admin Dose 162 MG; Start 07/01/18 at 12:30 IV Flush (NS 10 ml) 10 ml PRN PRN IV FLUSH LINE; Start 07/02/18 at 14:00 Furosemide (Lasix) 20 mg DAILY IV Last administered on 07/10/18at 08:51; Admin Dose 20 MG; Start 07/04/18 at 09:00 Cefepime HCl 50 ml @ 100 mls/hr Q12 IVPB Last administered on 07/10/18at 08:53; Admin Dose 100 MLS/HR; Start 07/04/18 at 21:00 Insulin Human NPH (Humulin N) 20 unit Q8H SC Last administered on 07/10/18at 16:00; Admin Dose 20 UNIT; Start 07/05/18 at 16:00 Lansoprazole (Prevacid) 30 mg DAILY@06 GTB Last administered on 07/10/18at 05:10; Admin Dose 30 MG; Start 07/06/18 at 06:00 Haloperidol (Haldol) 5 mg Q4 PRN IV AGITATION Last administered on 07/05/18at 22:28; Admin Dose 5 MG; Start 07/05/18 at 22:30 Enoxaparin Sodium (Lovenox) 40 mg DAILY SC Last administered on 07/10/18at 08:57; Admin Dose 40 MG; Start 07/06/18 at 09:00 Vancomycin HCl (Vanco Iv Per Pharmacy) VANCOMYCIN PER PHARMACY PER PROTOCOL XX ; Start 07/06/18 at 09:00 Vancomycin HCl 1.25 gm/Sodium Chloride 250 ml @ 83.333 mls/ hr Q12H IVPB Last administered on 07/10/18at 11:12; Admin Dose 83.333 MLS/HR; Start 07/06/18 at 11:00 Benazepril HCl (Lotensin) 10 mg DAILY PO Last administered on 07/10/18at 08:54; Admin Dose 10 MG; Start 07/09/18 at 09:00 Miscellaneous Information (*Rx Drug Level Order Reminder*) VANCO TROUGH @ 1,000 ON... ONCE ONCE XX ; Start 07/11/18 at 10:00; Stop 07/11/18 at 10:01 REGINA BUI Jul 10, 2018 16:47
[2018-07-10] MEDS: ATORVASTATIN 80 MG TAB GTB SCH (20:58)
[2018-07-10] MEDS ORDERED: ALTEPLASE (CATHFLO) 2 MG INJ CATHETER PRN (23:30)
[2018-07-11] VITALS (25 sets, daily range): BP systolic 100–157; BP diastolic 52–78; PULSE 54–73; RESP 16–24
[2018-07-11] MEDS: VALPROIC ACID LIQUID CUP 250 MG/5 ML CUP GTB SCH ×3 (00:32→15:23)
[2018-07-11] MEDS: NPH, HUMAN INSULIN ISOPHANE 3ML VIAL SC SCH ×3 (01:12→15:30)
[2018-07-11] MEDS: INSULIN ASPART [NOVOLOG] 3 ML PEN SC SCH ×4 (06:00→17:32)
[2018-07-11] MEDS: LANSOPRAZOLE 30 MG CAP GTB SCH (06:06)
[2018-07-11] MEDS: FUROSEMIDE 20 MG INJ IV SCH (08:05)
[2018-07-11] MEDS: ASPIRIN 81 MG TAB PEG SCH (08:06)
[2018-07-11] MEDS: BENAZEPRIL 10 MG TAB PO SCH (08:06)
[2018-07-11] MEDS: CEFEPIME 1GM/50 ML (PMX) 50 ML IVPB SCH ×2 (08:06→20:02)
[2018-07-11] MEDS: ENOXAPARIN 40 MG/0.4 ML SYG SC SCH (08:20)
--- NOTE | 2018-07-11 10:18 | CONS ---
Date/Time of Note Date/Time of Note DATE: 07/11/18 TIME: 10:16 Assessment/Plan Assessment/Plan Assessment/Plan 1. Hypotension/shock state and likely septic.- now off levophed and tolerating BB/ACEI - BP better now - con't monitoring - better now - NSVT nted - add BB now. 2. Cardiomyopathy with decreased left ventricular ejection fraction, last known to be 30% by echo in 01/2018.-neg trop x 3 - will monitor clinically - treated.NOt a candidate for ICD. 3. History of prior percutaneous transluminal coronary angioplasty and stent placements, most recently to LAD in 2014. On meds now. 4. Urinary tract infection, likely urosepsis. 5. Diabetes mellitus. 6. Chronic respiratory failure, status post tracheostomy- con't resp Rx. 7. Dysphagia, status post G-tube. 8. Chronic encephalopathy. 9. Leukocytosis. 10. History of hemorrhagic cerebrovascular accident. 11.NSVT - now in sinus on tele. 12. Bradycardia-Overnight. Follow for sig recurrence Result Diagram: 07/11/18 0453 07/11/18 0453 Results 24hrs Laboratory Tests Test 07/10/18 11:23 07/10/18 15:56 07/10/18 17:34 07/11/18 01:09 Bedside Glucose 110 92 124 113 Test 07/11/18 04:53 07/11/18 06:09 07/11/18 08:02 White Blood Count 7.4 # Red Blood Count 3.63 L Hemoglobin 9.4 L Hematocrit 29.7 L Mean Corpuscular 81.8 L Volume Mean Corpuscular 25.9 L Hemoglobin Mean Corpuscular 31.6 L Hemoglobin Concent Red Cell 16.6 H Distribution Width Platelet Count 377 Mean Platelet Volume 10.7 H Immature 0.500 H Granulocytes % Neutrophils % 62.5 Lymphocytes % 22.9 Monocytes % 8.2 Eosinophils % 5.4 Basophils % 0.5 Nucleated Red Blood 0.0 Cells % Immature 0.040 H Granulocytes # Neutrophils # 4.6 Lymphocytes # 1.7 Monocytes # 0.6 Eosinophils # 0.4 Basophils # 0.0 Nucleated Red Blood 0.0 Cells # Sodium Level 137 Potassium Level 4.2 Chloride Level 102 Carbon Dioxide Level 29 Anion Gap 6 Blood Urea Nitrogen 16 Creatinine 0.61 Est Glomerular > 60 Filtrat Rate mL/min Glucose Level 114 Calcium Level 8.9 Bedside Glucose 95 90 Consultation Date/Type/Reason Admit Date/Time Jun 30, 2018 at 16:55 Initial Consult Date Requesting Provider: NIA DOMINGO MD 24 HR Interval Summary Free Text/Dictation Another episode of NSVT 7 beats - add BB now - not a candidate for ICD with chronic debilitated state. ROS: No fever, no chills, no nausea, no vomiting, no diarrhea/constipation - per nurse Exam/Review of Systems Vital Signs Vitals Vital Signs Date Temp Pulse Resp B/P (MAP) Pulse Ox O2 O2 Flow FiO2 Time Delivery Rate 07/11/18 71 20 97 30 09:20 07/11/18 98.7 157/78 07:43 (104) 07/10/18 Mechanical 03:46 Ventilator Intake and Output 07/10/18 07/10/18 07/11/18 1515:00 23:00 07:00 IntakeIntake Total 350 ml 770 ml 1070 ml OutputOutput Total 1500 ml 300 ml BalanceBalance 350 ml -730 ml 770 ml Exam General: WN/WD/NAD, AOx 0 HEENT: Unicetric/h/o CVA /EOMI (does not follow commands) NECK: trach Lymph: no lymphadenopathy HEART: regular with no S3, II/ systolic murmur at apex, PMI L LUNGS: Coarse sounds ABD: soft, NT, ND, +BS : Intact Neuro: non focal SKIN: chronic changes EXT: trace edema Medications Medications Current Medications IV Flush (NS 3 ml) 3 ml PER PROTOCOL IV ; Start 07/01/18 at 00:00 Ondansetron HCl (Zofran Inj) 4 mg Q6H PRN IV NAUSEA AND/OR VOMITING; Start 07/01/18 at 00:00 Albuterol (Proventil 0.083% (Neb)) 2.5 mg Q2H RESP THERAPY PRN NEB SHORTNESS OF BREATH; Start 07/01/18 at 00:00 Ipratropium [place] (Atrovent 0.02% (Neb)) 0.5 mg Q2H RESP THERAPY PRN NEB SHORTNESS OF BREATH; Start 07/01/18 at 00:00 Acetaminophen (Tylenol Liquid) 650 mg Q6H PRN PO PAIN LEVEL 1-3 OR FEVER; Start 07/01/18 at 00:00 Morphine Sulfate (morphine) 2 mg Q4H PRN IV PAIN LEVEL 7-10 Last administered on 07/05/18at 22:10; Admin Dose 2 MG; Start 07/01/18 at 00:00 Docusate Sodium (Colace) 100 mg Q12H PRN PO CONSTIPATION; Start 07/01/18 at 00 :00 Magnesium Hydroxide (Milk Of Mag) 30 ml DAILY PRN PO CONSTIPATION; Start 07/01/18 at 00:00 Atorvastatin Calcium (Lipitor) 80 mg QHS GTB Last administered on 07/10/18at 20:58; Admin Dose 80 MG; Start 07/01/18 at 21:00 Bisacodyl (Dulcolax Supp) 10 mg Q24H PRN SC NEEDED; Start 07/01/18 at 00:00 Carvedilol (Coreg) 3.125 mg BID GTB Last administered on 07/11/18at 08:06; Admin Dose 3.125 MG; Start 07/01/18 at 09:00 Valproate Sodium (Depakene Liquid Cup) 500 mg Q8H GTB Last administered on at 08:05; Admin Dose 500 MG; Start 07/01/18 at 00:00 Insulin Aspart (Novolog Insulin Pen) NOVOLOG *MILD* ALGORITHM Q6 SC Last administered on 07/08/18at 12:24; Admin Dose 1 UNIT; Start 07/01/18 at 00:00 Miscellaneous Information 1 ea NOTE XX ; Start 07/01/18 at 00:30 Glucose (Glutose) 15 gm Q15M PRN PO DECREASED GLUCOSE; Start 07/01/18 at 00:30 Glucose (Glutose) 22.5 gm Q15M PRN PO DECREASED GLUCOSE; Start 07/01/18 at 00:30 Dextrose (D50w Syringe) 25 ml Q15M PRN IV DECREASED GLUCOSE; Start 07/01/18 at 00:30 Dextrose (D50w Syringe) 50 ml Q15M PRN IV DECREASED GLUCOSE; Start 07/01/18 at 00:30 Glucagon (Glucagen) 1 mg Q15M PRN IM DECREASED GLUCOSE; Start 07/01/18 at 00:30 Glucose (Glutose) 15 gm Q15M PRN BUCCAL DECREASED GLUCOSE; Start 07/01/18 at 00:30 Aspirin (Aspirin) 162 mg DAILY PEG Last administered on 07/11/18at 08:06; Admin Dose 162 MG; Start 07/01/18 at 12:30 IV Flush (NS 10 ml) 10 ml PRN PRN IV FLUSH LINE; Start 07/02/18 at 14:00 Furosemide (Lasix) 20 mg DAILY IV Last administered on 07/11/18 08:05; Admin Dose 20 MG; Start 07/04/18 at 09:00 Cefepime HCl 50 ml @ 100 mls/hr Q12 IVPB Last administered on 07/11/18 08:06; Admin Dose 100 MLS/HR; Start 07/04/18 at 21:00 Insulin Human NPH (Humulin N) 20 unit Q8H SC Last administered on 07/11/18 08:04; Admin Dose 20 UNIT; Start 07/05/18 at 16:00 Lansoprazole (Prevacid) 30 mg DAILY@06 GTB Last administered on 07/11/18 06:06; Admin Dose 30 MG; Start 07/06/18 at 06:00 Haloperidol (Haldol) 5 mg Q4 PRN IV AGITATION Last administered on 07/05/18 22:28; Admin Dose 5 MG; Start 07/05/18 at 22:30 Enoxaparin Sodium (Lovenox) 40 mg DAILY SC Last administered on 07/11/18 08:20; Admin Dose 40 MG; Start 07/06/18 at 09:00 Vancomycin HCl (Vanco Iv Per Pharmacy) VANCOMYCIN PER PHARMACY PER PROTOCOL XX ; Start 07/06/18 at 09:00 Vancomycin HCl 1.25 gm/Sodium Chloride 250 ml @ 83.333 mls/ hr Q12H IVPB Last administered on 07/10/18 22:40; Admin Dose 83.333 MLS/HR; Start 07/06/18 at 11:00 Benazepril HCl (Lotensin) 10 mg DAILY PO Last administered on 07/11/18 08:06; Admin Dose 10 MG; Start 07/09/18 at 09:00 Alteplase, Recombinant (Cathflo (Activase)) 2 mg MAY REPEAT X1 PRN CATHETER IF CATHETER REMAINS OCCULUDED Last administered on 07/11/18 03:46; Admin Dose 2 MG; Start 07/10/18 at 23:30 KYLEIGH MENDENHALL MD Jul 11, 2018 10:18
[2018-07-11] MEDS: VANCOMYCIN HCL 1.25 GM in SOD CHLORIDE 0.9% 250 ML IVPB SCH ×2 (11:49→22:22)
--- NOTE | 2018-07-11 14:04 | CONS ---
Date/Time of Note Date/Time of Note DATE: 07/11/18 TIME: 13:59 Consult Date/Type/Reason Admit Date/Time Jun 30, 2018 at 16:55 Initial Consult Date Type of Consultation: Pulm Requesting Provider: NIA DOMINGO MD Subjective No events. Stable on the vent. Objective Vital Signs Date Temp Pulse Resp B/P (MAP) Pulse Ox O2 O2 Flow FiO2 Time Delivery Rate 07/11/18 65 12:30 07/11/18 98.5 20 142/65 98 11:42 (90) 07/11/18 30 11:20 07/10/18 Mechanical 03:46 Ventilator Intake and Output 07/10/18 07/10/18 07/11/18 1515:00 23:00 07:00 IntakeIntake Total 350 ml 770 ml 1070 ml OutputOutput Total 1500 ml 300 ml BalanceBalance 350 ml -730 ml 770 ml Exam HEENT: Neck supple; no JVD; no LAD; + trach CVS: [place], S1 and S2 CHEST: Coarse BS ABD: Soft, NT, + BS EXT: No c/c/e Results/Medications Result Diagram: 07/11/18 0453 07/11/18 0453 Results 24 hrs Laboratory Tests Test 07/10/18 15:56 07/10/18 17:34 07/11/18 01:09 07/11/18 04:53 Bedside Glucose 92 124 113 White Blood Count 7.4 # Red Blood Count 3.63 L Hemoglobin 9.4 L Hematocrit 29.7 L Mean Corpuscular 81.8 L Volume Mean Corpuscular 25.9 L Hemoglobin Mean Corpuscular 31.6 L Hemoglobin Concent Red Cell 16.6 H Distribution Width Platelet Count 377 Mean Platelet Volume 10.7 H Immature 0.500 H Granulocytes % Neutrophils % 62.5 Lymphocytes % 22.9 Monocytes % 8.2 Eosinophils % 5.4 Basophils % 0.5 Nucleated Red Blood 0.0 Cells % Immature 0.040 H Granulocytes # Neutrophils # 4.6 Lymphocytes # 1.7 Monocytes # 0.6 Eosinophils # 0.4 Basophils # 0.0 Nucleated Red Blood 0.0 Cells # Sodium Level 137 Potassium Level 4.2 Chloride Level 102 Carbon Dioxide Level 29 Anion Gap 6 Blood Urea Nitrogen 16 Creatinine 0.61 Est Glomerular > 60 Filtrat Rate mL/min Glucose Level 114 Calcium Level 8.9 Test 07/11/18 06:09 07/11/18 08:02 07/11/18 10:25 07/11/18 11:58 Bedside Glucose 95 90 119 Vancomycin Level 14.8 Trough Medications Current Medications IV Flush (NS 3 ml) 3 ml PER PROTOCOL IV ; Start 07/01/18 at 00:00 Ondansetron HCl (Zofran Inj) 4 mg Q6H PRN IV NAUSEA AND/OR VOMITING; Start 07/01/18 at 00:00 Albuterol (Proventil 0.083% (Neb)) 2.5 mg Q2H RESP THERAPY PRN NEB SHORTNESS OF BREATH; Start 07/01/18 at 00:00 Ipratropium [place] (Atrovent 0.02% (Neb)) 0.5 mg Q2H RESP THERAPY PRN NEB SHORTNESS OF BREATH; Start 07/01/18 at 00:00 Acetaminophen (Tylenol Liquid) 650 mg Q6H PRN PO PAIN LEVEL 1-3 OR FEVER; St art 07/01/18 at 00:00 Morphine Sulfate (morphine) 2 mg Q4H PRN IV PAIN LEVEL 7-10 Last administered on 07/05/18at 22:10; Admin Dose 2 MG; Start 07/01/18 at 00:00 Docusate Sodium (Colace) 100 mg Q12H PRN PO CONSTIPATION; Start 07/01/18 at 00:00 Magnesium Hydroxide (Milk Of Mag) 30 ml DAILY PRN PO CONSTIPATION; Start 07/01/18 at 00:00 Atorvastatin Calcium (Lipitor) 80 mg QHS GTB Last administered on 07/10/18at 20:58; Admin Dose 80 MG; Start 07/01/18 at 21:00 Bisacodyl (Dulcolax Supp) 10 mg Q24H PRN [place] NEEDED; Start 07/01/18 at 00:00 Valproate Sodium (Depakene Liquid Cup) 500 mg Q8H GTB Last administered on 07/11/18at 08:05; Admin Dose 500 MG; Start 07/01/18 at 00:00 Insulin Aspart (Novolog Insulin Pen) NOVOLOG *MILD* ALGORITHM Q6 SC Last administered on 07/08/18at 12:24; Admin Dose 1 UNIT; Start 07/01/18 at 00:00 Miscellaneous Information 1 ea NOTE XX ; Start 07/01/18 at 00:30 Glucose (Glutose) 15 gm Q15M PRN PO DECREASED GLUCOSE; Start 07/01/18 at 00:30 Glucose (Glutose) 22.5 gm Q15M PRN PO DECREASED GLUCOSE; Start 07/01/18 at 00:30 Dextrose (D50w Syringe) 25 ml Q15M PRN IV DECREASED GLUCOSE; Start 07/01/18 at 00:30 Dextrose (D50w Syringe) 50 ml Q15M PRN IV DECREASED GLUCOSE; Start 07/01/18 at 00:30 Glucagon (Glucagen) 1 mg Q15M PRN IM DECREASED GLUCOSE; Start 07/01/18 at 00:30 Glucose (Glutose) 15 gm Q15M PRN BUCCAL DECREASED GLUCOSE; Start 07/01/18 at 00:30 Aspirin (Aspirin) 162 mg DAILY PEG Last administered on 07/11/18at 08:06; Admin Dose 162 MG; Start 07/01/18 at 12:30 IV Flush (NS 10 ml) 10 ml PRN PRN IV FLUSH LINE; Start 07/02/18 at 14:00 Furosemide (Lasix) 20 mg DAILY IV Last administered on 07/11/18at 08:05; Admin Dose 20 MG; Start 07/04/18 at 09:00 Cefepime HCl 50 ml @ 100 mls/hr Q12 IVPB Last administered on 07/11/18at 08:06; Admin Dose 100 MLS/HR; Start 07/04/18 at 21:00 Insulin Human NPH (Humulin N) 20 unit Q8H SC Last administered on 07/11/18at 08:04; Admin Dose 20 UNIT; Start 07/05/18 at 16:00 Lansoprazole (Prevacid) 30 mg DAILY@06 GTB Last administered on 07/11/18at 06:06; Admin Dose 30 MG; Start 07/06/18 at 06:00 Haloperidol (Haldol) 5 mg Q4 PRN IV AGITATION Last administered on 07/05/18at 22:28; Admin Dose 5 MG; Start 07/05/18 at 22:30 Enoxaparin Sodium (Lovenox) 40 mg DAILY SC Last administered on 07/11/18at 08:20; Admin Dose 40 MG; Start 07/06/18 at 09:00 Vancomycin HCl (Vanco Iv Per Pharmacy) VANCOMYCIN PER PHARMACY PER PROTOCOL XX ; Start 07/06/18 at 09:00 Vancomycin HCl 1.25 gm/Sodium Chloride 250 ml @ 83.333 mls/ hr Q12H IVPB Last administered on 07/11/18at 11:49; Admin Dose 83.333 MLS/HR; Start 07/06/18 at 11:00 Benazepril HCl (Lotensin) 10 mg DAILY PO Last administered on 07/11/18at 08:06; Admin Dose 10 MG; Start 07/09/18 at 09:00 Alteplase, Recombinant (Cathflo (Activase)) 2 mg MAY REPEAT X1 PRN CATHETER IF CATHETER REMAINS OCCULUDED Last administered on 07/11/18at 03:46; Admin Dose 2 MG; Start 07/10/18 at 23:30 Carvedilol (Coreg) 12.5 mg BID NGT ; Start 07/11/18 at 21:00 Assessment/Plan Additional Assessment/Plan IMP: 1. VDRF 2. s/p R lung ATX 3. Cardiomyopathy 4. Chronic encephalopathy 5. Urosepsis 6. Anemia RECS: 1. Vent support; t-tube as tolerated 2. BD's/CPT VICTOR M MCKEON MD Jul 11, 2018 14:04
--- NOTE | 2018-07-11 14:52 | PN ---
Date/Time of Note Date/Time of Note DATE: 07/11/18 TIME: 14:46 Assessment/Plan VTE Prophylaxis Risk score (from Ns)>0 risk: 9 SCD applied (from Ns): Yes Lines/Catheters IV Catheter Type (from Nrs): PICC Line Urinary Cath still in place: Yes Assessment/Plan Result Diagram: 07/11/18 0453 07/11/18 0453 Results 24hrs Laboratory Tests Test 07/10/18 15:56 07/10/18 17:34 07/11/18 01:09 07/11/18 04:53 Bedside Glucose 92 124 113 White Blood Count 7.4 # Red Blood Count 3.63 L Hemoglobin 9.4 L Hematocrit 29.7 L Mean Corpuscular 81.8 L Volume Mean Corpuscular 25.9 L Hemoglobin Mean Corpuscular 31.6 L Hemoglobin Concent Red Cell 16.6 H Distribution Width Platelet Count 377 Mean Platelet Volume 10.7 H Immature 0.500 H Granulocytes % Neutrophils % 62.5 Lymphocytes % 22.9 Monocytes % 8.2 Eosinophils % 5.4 Basophils % 0.5 Nucleated Red Blood 0.0 Cells % Immature 0.040 H Granulocytes # Neutrophils # 4.6 Lymphocytes # 1.7 Monocytes # 0.6 Eosinophils # 0.4 Basophils # 0.0 Nucleated Red Blood 0.0 Cells # Sodium Level 137 Potassium Level 4.2 Chloride Level 102 Carbon Dioxide Level 29 Anion Gap 6 Blood Urea Nitrogen 16 Creatinine 0.61 Est Glomerular > 60 Filtrat Rate mL/min Glucose Level 114 Calcium Level 8.9 Test 07/11/18 06:09 07/11/18 08:02 07/11/18 10:25 07/11/18 11:58 Bedside Glucose 95 90 119 Vancomycin Level 14.8 Trough Exam/Review of Systems Vital Signs Vitals Vital Signs Date Temp Pulse Resp B/P (MAP) Pulse Ox O2 O2 Flow FiO2 Time Delivery Rate 07/11/18 65 12:30 07/11/18 98.5 20 142/65 98 11:42 (90) 07/11/18 30 11:20 07/10/18 Mechanical 03:46 Ventilator Intake and Output 07/10/18 07/10/18 07/11/18 1515:00 23:00 07:00 IntakeIntake Total 350 ml 770 ml 1070 ml OutputOutput Total 1500 ml 300 ml BalanceBalance 350 ml -730 ml 770 ml Medications Medications Current Medications IV Flush (NS 3 ml) 3 ml PER PROTOCOL IV ; Start 07/01/18 at 00:00 Ondansetron HCl (Zofran Inj) 4 mg Q6H PRN IV NAUSEA AND/OR VOMITING; Start 07/01/18 at 00:00 Albuterol (Proventil 0.083% (Neb)) 2.5 mg Q2H RESP THERAPY PRN NEB SHORTNESS OF BREATH; Start 07/01/18 at 00:00 Ipratropium [place] (Atrovent 0.02% (Neb)) 0.5 mg Q2H RESP THERAPY PRN NEB SHOR TNESS OF BREATH; Start 07/01/18 at 00:00 Acetaminophen (Tylenol Liquid) 650 mg Q6H PRN PO PAIN LEVEL 1-3 OR FEVER; Start 07/01/18 at 00:00 Morphine Sulfate (morphine) 2 mg Q4H PRN IV PAIN LEVEL 7-10 Last administered on 07/05/18at 22:10; Admin Dose 2 MG; Start 07/01/18 at 00:00 Docusate Sodium (Colace) 100 mg Q12H PRN PO CONSTIPATION; Start 07/01/18 at 00:00 Magnesium Hydroxide (Milk Of Mag) 30 ml DAILY PRN PO CONSTIPATION; Start 07/01/18 at 00:00 Atorvastatin Calcium (Lipitor) 80 mg QHS GTB Last administered on 07/10/18at 20:58; Admin Dose 80 MG; Start 07/01/18 at 21:00 Bisacodyl (Dulcolax Supp) 10 mg Q24H PRN IN NEEDED; Start 07/01/18 at 00:00 Valproate Sodium (Depakene Liquid Cup) 500 mg Q8H GTB Last administered on 07/11/18at 08:05; Admin Dose 500 MG; Start 07/01/18 at 00:00 Insulin Aspart (Novolog Insulin Pen) NOVOLOG *MILD* ALGORITHM Q6 SC Last administered on 07/08/18at 12:24; Admin Dose 1 UNIT; Start 07/01/18 at 00:00 Miscellaneous Information 1 ea NOTE XX ; Start 07/01/18 at 00:30 Glucose (Glutose) 15 gm Q15M PRN PO DECREASED GLUCOSE; Start 07/01/18 at 00:30 Glucose (Glutose) 22.5 gm Q15M PRN PO DECREASED GLUCOSE; Start 07/01/18 at 00:30 Dextrose (D50w Syringe) 25 ml Q15M PRN IV DECREASED GLUCOSE; Start 07/01/18 at 00:30 Dextrose (D50w Syringe) 50 ml Q15M PRN IV DECREASED GLUCOSE; Start 07/01/18 at 00:30 Glucagon (Glucagen) 1 mg Q15M PRN IM DECREASED GLUCOSE; Start 07/01/18 at 00:30 Glucose (Glutose) 15 gm Q15M PRN BUCCAL DECREASED GLUCOSE; Start 07/01/18 at 00:30 Aspirin (Aspirin) 162 mg DAILY PEG Last administered on 07/11/18at 08:06; Admin Dose 162 MG; Start 07/01/18 at 12:30 IV Flush (NS 10 ml) 10 ml PRN PRN IV FLUSH LINE; Start 07/02/18 at 14:00 Furosemide (Lasix) 20 mg DAILY IV Last administered on 07/11/18at 08:05; Admin Dose 20 MG; Start 07/04/18 at 09:00 Cefepime HCl 50 ml @ 100 mls/hr Q12 IVPB Last administered on 07/11/18 08:06; Admin Dose 100 MLS/HR; Start 07/04/18 at 21:00 Insulin Human NPH (Humulin N) 20 unit Q8H SC Last administered on 07/11/18at 08:04; Admin Dose 20 UNIT; Start 07/05/18 at 16:00 Lansoprazole (Prevacid) 30 mg DAILY@06 GTB Last administered on 07/11/18at 06:06; Admin Dose 30 MG; Start 07/06/18 at 06:00 Haloperidol (Haldol) 5 mg Q4 PRN IV AGITATION Last administered on 07/05/18at 22:28; Admin Dose 5 MG; Start 07/05/18 at 22:30 Enoxaparin Sodium (Lovenox) 40 mg DAILY SC Last administered on 07/11/18 08 :20; Admin Dose 40 MG; Start 07/06/18 at 09:00 Vancomycin HCl (Vanco Iv Per Pharmacy) VANCOMYCIN PER PHARMACY PER PROTOCOL XX ; Start 07/06/18 at 09:00 Vancomycin HCl 1.25 gm/Sodium Chloride 250 ml @ 83.333 mls/ hr Q12H IVPB Last administered on 07/11/18at 11:49; Admin Dose 83.333 MLS/HR; Start 07/06/18 at 11:00 Benazepril HCl (Lotensin) 10 mg DAILY PO Last administered on 07/11/18at 08:06; Admin Dose 10 MG; Start 07/09/18 at 09:00 Alteplase, Recombinant (Cathflo (Activase)) 2 mg MAY REPEAT X1 PRN CATHETER IF CATHETER REMAINS OCCULUDED Last administered on 07/11/18at 03:46; Admin Dose 2 MG; Start 07/10/18 at 23:30 Carvedilol (Coreg) 12.5 mg BID NGT ; Start 07/11/18 at 21:00 REGINA BUI Jul 11, 2018 14:52
[2018-07-11] MEDS: ATORVASTATIN 80 MG TAB GTB SCH (20:05)
[2018-07-12] VITALS (24 sets, daily range): BP systolic 100–132; BP diastolic 50–73; PULSE 43–64; RESP 16–25
[2018-07-12] MEDS: VALPROIC ACID LIQUID CUP 250 MG/5 ML CUP GTB SCH ×4 (00:02→23:43)
[2018-07-12] MEDS: NPH, HUMAN INSULIN ISOPHANE 3ML VIAL SC SCH ×4 (00:06→23:54)
[2018-07-12] MEDS: INSULIN ASPART [NOVOLOG] 3 ML PEN SC SCH ×5 (06:00→23:51)
[2018-07-12] MEDS: LANSOPRAZOLE 30 MG CAP GTB SCH (06:10)
[2018-07-12] MEDS: CEFEPIME 1GM/50 ML (PMX) 50 ML IVPB SCH ×2 (08:27→22:09)
[2018-07-12] MEDS: ASPIRIN 81 MG TAB PEG SCH (08:28)
[2018-07-12] MEDS: BENAZEPRIL 10 MG TAB PO SCH (08:30)
[2018-07-12] MEDS: FUROSEMIDE 20 MG INJ IV SCH (08:30)
--- NOTE | 2018-07-12 08:33 | CONS ---
Date/Time of Note Date/Time of Note DATE: 07/12/18 TIME: 08:32 Assessment/Plan Assessment/Plan Assessment/Plan 1. Hypotension/shock state and likely septic.- now off levophed and tolerating BB/ACEI - BP better now - con't monitoring - better now - NSVT nted - add BB now. Tolerated BB. 2. Cardiomyopathy with decreased left ventricular ejection fraction, last known to be 30% by echo in 01/2018.-neg trop x 3 - will monitor clinically - treated.Not a candidate for ICD. NO new VT noted. 3. History of prior percutaneous transluminal coronary angioplasty and stent placements, most recently to LAD in 2014. On meds now. 4. Urinary tract infection, likely urosepsis. 5. Diabetes mellitus. 6. Chronic respiratory failure, status post tracheostomy- con't resp Rx. 7. Dysphagia, status post G-tube. 8. Chronic encephalopathy. 9. Leukocytosis. 10. History of hemorrhagic cerebrovascular accident - no anti-coag now. 11.NSVT - now in sinus on tele. 12. Bradycardia-Overnight. Follow for sig recurrence - rate controlled overall. Result Diagram: 07/12/18 0535 07/12/18 0535 Results 24hrs Laboratory Tests Test 07/11/18 10:25 07/11/18 11:58 07/11/18 15:22 07/11/18 17:28 Vancomycin Level 14.8 Trough Bedside Glucose 119 142 151 Test 07/12/18 00:01 07/12/18 05:35 07/12/18 06:14 Bedside Glucose 143 110 White Blood Count 7.4 Red Blood Count 3.46 L Hemoglobin 9.1 L Hematocrit 28.4 L Mean Corpuscular 82.1 Volume Mean Corpuscular 26.3 L Hemoglobin Mean Corpuscular 32.0 Hemoglobin Concent Red Cell 16.9 H Distribution Width Platelet Count 396 Mean Platelet Volume 11.1 H Immature 0.400 Granulocytes % Neutrophils % 69.3 Lymphocytes % 18.2 Monocytes % 7.6 Eosinophils % 4.1 Basophils % 0.4 Nucleated Red Blood 0.0 Cells % Immature 0.030 Granulocytes # Neutrophils # 5.1 Lymphocytes # 1.4 Monocytes # 0.6 Eosinophils # 0.3 Basophils # 0.0 Nucleated Red Blood 0.0 Cells # Sodium Level 136 Potassium Level 3.9 Chloride Level 101 Carbon Dioxide Level 30 Anion Gap 5 Blood Urea Nitrogen 19 Creatinine 0.66 Est Glomerular > 60 Filtrat Rate mL/min Glucose Level 129 Calcium Level 8.7 Consultation Date/Type/Reason Admit Date/Time Jun 30, 2018 at 16:55 Initial Consult Date Requesting Provider: NIA DOMINGO MD 24 HR Interval Summary Free Text/Dictation NO acute events - BB tolerated - no VT/VF. Per nurse: no F/C/N/V/D Exam/Review of Systems Vital Signs Vitals Vital Signs Date Temp Pulse Resp B/P (MAP) Pulse Ox O2 O2 Flow FiO2 Time Delivery Rate 07/12/18 99.0 53 18 132/62 99 Mechanical 07:46 (85) Ventilator 07/12/18 30 05:50 Intake and Output 07/11/18 07/11/18 07/12/18 1515:00 23:00 07:00 IntakeIntake Total 300 ml 920 ml 1070 ml OutputOutput Total 1100 ml 375 ml BalanceBalance 300 ml -180 ml 695 ml Exam General: WN/WD/NAD, AOx 0 HEENT: Unicetric/atraumatic/EOMI (does not follow commands) NECK: trach Lymph: no lymphadenopathy HEART: regular with no S3, II/ systolic murmur at apex LUNGS: Coarse sounds ABD: soft, NT, ND, +BS : Intact Neuro: non focal SKIN: chronic changes EXT: trace edema Medications Medications Current Medications IV Flush (NS 3 ml) 3 ml PER PROTOCOL IV ; Start 07/01/18 at 00:00 Ondansetron HCl (Zofran Inj) 4 mg Q6H PRN IV NAUSEA AND/OR VOMITING; Start 07/01/18 at 00:00 Albuterol (Proventil 0.083% (Neb)) 2.5 mg Q2H RESP THERAPY PRN NEB SHORTNESS OF BREATH; Start 07/01/18 at 00:00 Ipratropium [place] (Atrovent 0.02% (Neb)) 0.5 mg Q2H RESP THERAPY PRN NEB SHORTNESS OF BREATH; Start 07/01/18 at 00:00 Acetaminophen (Tylenol Liquid) 650 mg Q6H PRN PO PAIN LEVEL 1-3 OR FEVER; Start 07/01/18 at 00:00 Morphine Sulfate (morphine) 2 mg Q4H PRN IV PAIN LEVEL 7-10 Last administered on 07/05/18at 22:10; Admin Dose 2 MG; Start 07/01/18 at 00:00 Docusate Sodium (Colace) 100 mg Q12H PRN PO CONSTIPATION; Start 07/01/18 at 00:00 Magnesium Hydroxide (Milk Of Mag) 30 ml DAILY PRN PO CONSTIPATION; Start 07/01/18 at 00:00 Atorvastatin Calcium (Lipitor) 80 mg QHS GTB Last administered on 07/11/18at 20:05; Admin Dose 80 MG; Start 07/01/18 at 21:00 Bisacodyl (Dulcolax Supp) 10 mg Q24H PRN [place] NEEDED; Start 07/01/18 at 00:00 Valproate Sodium (Depakene Liquid Cup) 500 mg Q8H GTB Last administered on 07/12/18at 00:02; Admin Dose 500 MG; Start 07/01/18 at 00:00 Insulin Aspart (Novolog Insulin Pen) NOVOLOG *MILD* ALGORITHM Q6 SC Last administered on 07/11/18at 17:32; Admin Dose 1 UNIT; Start 07/01/18 at 00:00 Miscellaneous Information 1 ea NOTE XX ; Start 07/01/18 at 00:30 Glucose (Glutose) 15 gm Q15M PRN PO DECREASED GLUCOSE; Start 07/01/18 at 00:30 Glucose (Glutose) 22.5 gm Q15M PRN PO DECREASED GLUCOSE; Start 07/01/18 at 00:30 Dextrose (D50w Syringe) 25 ml Q15M PRN IV DECREASED GLUCOSE; Start 07/01/18 at 00:30 Dextrose (D50w Syringe) 50 ml Q15M PRN IV DECREASED GLUCOSE; Start 07/01/18 at 00:30 Glucagon (Glucagen) 1 mg Q15M PRN IM DECREASED GLUCOSE; Start 07/01/18 at 00:30 Glucose (Glutose) 15 gm Q15M PRN BUCCAL DECREASED GLUCOSE; Start 07/01/18 at 0 0:30 Aspirin (Aspirin) 162 mg DAILY PEG Last administered on 07/11/18at 08:06; Admin Dose 162 MG; Start 07/01/18 at 12:30 IV Flush (NS 10 ml) 10 ml PRN PRN IV FLUSH LINE; Start 07/02/18 at 14:00 Furosemide (Lasix) 20 mg DAILY IV Last administered on 07/11/18 08:05; Admin Dose 20 MG; Start 07/04/18 at 09:00 Cefepime HCl 50 ml @ 100 mls/hr Q12 IVPB Last administered on 07/11/18 20:02; Admin Dose 100 MLS/HR; Start 07/04/18 at 21:00 Insulin Human NPH (Humulin N) 20 unit Q8H SC Last administered on 07/12/18 00:06; Admin Dose 20 UNIT; Start 07/05/18 at 16:00 Lansoprazole (Prevacid) 30 mg DAILY@06 GTB Last administered on 07/12/18 06:10; Admin Dose 30 MG; Start 07/06/18 at 06:00 Haloperidol (Haldol) 5 mg Q4 PRN IV AGITATION Last administered on 07/05/18 22:28; Admin Dose 5 MG; Start 07/05/18 at 22:30 Enoxaparin Sodium (Lovenox) 40 mg DAILY SC Last administered on 07/11/18 08:20; Admin Dose 40 MG; Start 07/06/18 at 09:00 Vancomycin HCl (Vanco Iv Per Pharmacy) VANCOMYCIN PER PHARMACY PER PROTOCOL XX ; Start 07/06/18 at 09:00 Vancomycin HCl 1.25 gm/Sodium Chloride 250 ml @ 83.333 mls/ hr Q12H IVPB Last administered on 07/11/18 22:22; Admin Dose 83.333 MLS/HR; Start 07/06/18 at 11:00 Benazepril HCl (Lotensin) 10 mg DAILY PO Last administered on 07/11/18 08:06; Admin Dose 10 MG; Start 07/09/18 at 09:00 Alteplase, Recombinant (Cathflo (Activase)) 2 mg MAY REPEAT X1 PRN CATHETER IF CATHETER REMAINS OCCULUDED Last administered on 07/11/18 03:46; Admin Dose 2 MG; Start 07/10/18 at 23:30 Carvedilol (Coreg) 12.5 mg BID NGT Last administered on 07/11/18 20:05; Admin Dose 12.5 MG; Start 07/11/18 at 21:00 KYLEIGH MENDENHALL MD Jul 12, 2018 08:33
[2018-07-12] MEDS: ENOXAPARIN 40 MG/0.4 ML SYG SC SCH (09:40)
--- NOTE | 2018-07-12 10:09 | CONS ---
Date/Time of Note Date/Time of Note DATE: 07/12/18 TIME: 10:07 Assessment/Plan Assessment/Plan Assessment/Plan Ventilator setting; AC of 16, tidal volume 500, PEEP of 5, 30% FiO2. Assessment and recommendations; 1. Patient with history of VD RF and chronic encephalopathy admitted for sepsis due to pneumonia and UTI, Enterobacter cultured from urine. 2. Stable seizure disorder. 3. Diabetes. 4. CHF. 5. Anemia. 6. History of hypertension. Continue current supportive care. Consider stopping antibiotics and discharge the patient to detention facility. Prognosis is poor. Result Diagram: 07/12/18 0535 07/12/18 0535 Results 24hrs Laboratory Tests Test 07/11/18 10:25 07/11/18 11:58 07/11/18 15:22 07/11/18 17:28 Vancomycin Level 14.8 Trough Bedside Glucose 119 142 151 Test 07/12/18 00:01 07/12/18 05:35 07/12/18 06:14 07/12/18 08:48 Bedside Glucose 143 110 127 White Blood Count 7.4 Red Blood Count 3.46 L Hemoglobin 9.1 L Hematocrit 28.4 L Mean Corpuscular 82.1 Volume Mean Corpuscular 26.3 L Hemoglobin Mean Corpuscular 32.0 Hemoglobin Concent Red Cell 16.9 H Distribution Width Platelet Count 396 Mean Platelet Volume 11.1 H Immature 0.400 Granulocytes % Neutrophils % 69.3 Lymphocytes % 18.2 Monocytes % 7.6 Eosinophils % 4.1 Basophils % 0.4 Nucleated Red Blood 0.0 Cells % Immature 0.030 Granulocytes # Neutrophils # 5.1 Lymphocytes # 1.4 Monocytes # 0.6 Eosinophils # 0.3 Basophils # 0.0 Nucleated Red Blood 0.0 Cells # Sodium Level 136 Potassium Level 3.9 Chloride Level 101 Carbon Dioxide Level 30 Anion Gap 5 Blood Urea Nitrogen 19 Creatinine 0.66 Est Glomerular > 60 Filtrat Rate mL/min Glucose Level 129 Calcium Level 8.7 Consultation Date/Type/Reason Admit Date/Time Jun 30, 2018 at 16:55 Initial Consult Date Type of Consult Pulmonary/critical care Requesting Provider: NIA DOMINGO MD 24 HR Interval Summary Free Text/Dictation Patient's condition is stable. Has remained hemodynamically stable. General exam; middle-aged male, on ventilator via tracheostomy. Noncommunicative. Currently in no distress. Exam/Review of Systems Vital Signs Vitals Vital Signs Date Temp Pulse Resp B/P (MAP) Pulse Ox O2 O2 Flow FiO2 Time Delivery Rate 07/12/18 63 16 100 30 09:46 07/12/18 99.0 132/62 Mechanical 07:46 (85) Ventilator Intake and Output 07/11/18 07/11/18 07/12/18 1515:00 23:00 07:00 IntakeIntake Total 300 ml 920 ml 1070 ml OutputOutput Total 1100 ml 375 ml BalanceBalance 300 ml -180 ml 695 ml Exam H EENT exam; supple neck, positive JVD. No lymphadenopathy. Midline trachea. No thyromegaly. Tracheostomy in place. Patient has fair dentition. There is a stable right parietal skull depression. Chest exam; diminished but clear breath sounds. S1-S2 audible, no murmurs. Regular rhythm. Abdomen exam; soft, no organomegaly. G-tube in place. Bowel sounds audible. Extremity exam; no peripheral edema. 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 Medications Medications Current Medications IV Flush (NS 3 ml) 3 ml PER PROTOCOL IV ; Start 07/01/18 at 00:00 Ondansetron HCl (Zofran Inj) 4 mg Q6H PRN IV NAUSEA AND/OR VOMITING; Start 07/01/18 at 00:00 Albuterol (Proventil 0.083% (Neb)) 2.5 mg Q2H RESP THERAPY PRN NEB SHORTNESS OF BREATH; Start 07/01/18 at 00:00 Ipratropium [place] (Atrovent 0.02% (Neb)) 0.5 mg Q2H RESP THERAPY PRN NEB SHORTNESS OF BREATH; Start 07/01/18 at 00:00 Acetaminophen (Tylenol Liquid) 650 mg Q6H PRN PO PAIN LEVEL 1-3 OR FEVER; Start 07/01/18 at 00:00 Morphine Sulfate (morphine) 2 mg Q4H PRN IV PAIN LEVEL 7-10 Last administered on 07/05/18at 22:10; Admin Dose 2 MG; Start 07/01/18 at 00:00 Docusate Sodium (Colace) 100 mg Q12H PRN PO CONSTIPATION; Start 07/01/18 at 00:00 Magnesium Hydroxide (Milk Of Mag) 30 ml DAILY PRN PO CONSTIPATION; Start 07/01/18 at 00:00 Atorvastatin Calcium (Lipitor) 80 mg QHS GTB Last administered on 07/11/18at 20:05; Admin Dose 80 MG; Start 07/01/18 at 21:00 Bisacodyl (Dulcolax Supp) 10 mg Q24H PRN [place] NEEDED; Start 07/01/18 at 00:00 Valproate Sodium (Depakene Liquid Cup) 500 mg Q8H GTB Last administered on 07/12/18at 08:27; Admin Dose 500 MG; Start 07/01/18 at 00:00 Insulin Aspart (Novolog Insulin Pen) NOVOLOG *MILD* ALGORITHM Q6 SC Last administered on 07/11/18at 17:32; Admin Dose 1 UNIT; Start 07/01/18 at 00:00 Miscellaneous Information 1 ea NOTE XX ; Start 07/01/18 at 00:30 Glucose (Glutose) 15 gm Q15M PRN PO DECREASED GLUCOSE; Start 07/01/18 at 00:30 Glucose (Glutose) 22.5 gm Q15M PRN PO DECREASED GLUCOSE; Start 07/01/18 at 00:30 Dextrose (D50w Syringe) 25 ml Q15M PRN IV DECREASED GLUCOSE; Start 07/01/18 at 00:30 Dextrose (D50w Syringe) 50 ml Q15M PRN IV DECREASED GLUCOSE; Start 07/01/18 at 00:30 Glucagon (Glucagen) 1 mg Q15M PRN IM DECREASED GLUCOSE; Start 07/01/18 at 00:30 Glucose (Glutose) 15 gm Q15M PRN BUCCAL DECREASED GLUCOSE; Start 07/01/18 at 00:30 Aspirin (Aspirin) 162 mg DAILY PEG Last administered on 07/12/18at 08:28; Admin Dose 162 MG; Start 07/01/18 at 12:30 IV Flush (NS 10 ml) 10 ml PRN PRN IV FLUSH LINE; Start 07/02/18 at 14:00 Furosemide (Lasix) 20 mg DAILY IV Last administered on 07/12/18at 08:30; Admin Dose 20 MG; Start 07/04/18 at 09:00 Cefepime HCl 50 ml @ 100 mls/hr Q12 IVPB Last administered on 07/12/18at 08:27; Admin Dose 100 MLS/HR; Start 07/04/18 at 21:00 Insulin Human NPH (Humulin N) 20 unit Q8H SC Last administered on 07/12/18 09:40; Admin Dose 20 UNIT; Start 07/05/18 at 16:00 Lansoprazole (Prevacid) 30 mg DAILY@06 GTB Last administered on 07/12/18 06:10; Admin Dose 30 MG; Start 07/06/18 at 06:00 Haloperidol (Haldol) 5 mg Q4 PRN IV AGITATION Last administered on 07/05/18at 22:28; Admin Dose 5 MG; Start 07/05/18 at 22:30 Enoxaparin Sodium (Lovenox) 40 mg DAILY SC Last administered on 07/12/18 09:40; Admin Dose 40 MG; Start 07/06/18 at 09:00 Vancomycin HCl (Vanco Iv Per Pharmacy) VANCOMYCIN PER PHARMACY PER PROTOCOL XX ; Start 07/06/18 at 09:00 Vancomycin HCl 1.25 gm/Sodium Chloride 250 ml @ 83.333 mls/ hr Q12H IVPB Last administered on 07/11/18at 22:22; Admin Dose 83.333 MLS/HR; Start 07/06/18 at 11:00 Benazepril HCl (Lotensin) 10 mg DAILY PO Last administered on 07/12/18 08:30; Admin Dose 10 MG; Start 07/09/18 at 09:00 Alteplase, Recombinant (Cathflo (Activase)) 2 mg MAY REPEAT X1 PRN CATHETER IF CATHETER REMAINS OCCULUDED Last administered on 07/11/18at 03:46; Admin Dose 2 MG; Start 07/10/18 at 23:30 Carvedilol (Coreg) 12.5 mg BID NGT Last administered on 07/12/18at 08:29; Admin Dose 12.5 MG; Start 07/11/18 at 21:00 MER CHRIS Jul 12, 2018 10:09
[2018-07-12] MEDS: VANCOMYCIN HCL 1.25 GM in SOD CHLORIDE 0.9% 250 ML IVPB SCH ×2 (12:08→23:43)
--- NOTE | 2018-07-12 12:54 | PN ---
Date/Time of Note Date/Time of Note DATE: 07/12/18 TIME: 12:52 Assessment/Plan VTE Prophylaxis Risk score (from Ns)>0 risk: 12 SCD applied (from Ns): Yes Pharmacological prophylaxis: LMWH Lines/Catheters IV [facility] Type (from [facility]): PICC Line Central line still needed: Yes Urinary Cath still in place: Yes Reason Cath still needed: urinary retention Assessment/Plan Hospital Course Patient's continues to have a large amount of secretion from the trach and the mouth, remains hemodynamically stable. Patient continued on cefepime and van comycin. Assessment/Plan -Lung atelectasis, status post bronchoscopy by Dr. Wall on 07/06/2018. -Sepsis most likely secondary to HCAP and urinary tract infection, f/up on urine and blood cultures. Continue antibiotics per ID recommendations. Dr. Hodge is following in infection disease consultation. -Septic shock, resolved. -ARF, continue ventilatory support. Dr Mitchell is following in pulmonology consultation. -Chronic tracheostomy -Dysphagia with PEG -Coronary artery disease status post stent placement to LAD and RCA. Dr. Vincent is following in cardiology consultation. -Cardiomyopathy with ejection fraction of 25-30% -Hypertension -Diabetes -Morbid obesity -Chronic encephalopathy Further recommendations based on clinical course. Plan of care discussed with Dr. Cortez. Result Diagram: 07/12/18 0535 07/12/18 0535 Results 24hrs Laboratory Tests Test 07/11/18 15:22 07/11/18 17:28 07/12/18 00:01 07/12/18 05:35 Bedside Glucose 142 151 143 White Blood Count 7.4 Red Blood Count 3.46 L Hemoglobin 9.1 L Hematocrit 28.4 L Mean Corpuscular 82.1 Volume Mean Corpuscular 26.3 L Hemoglobin Mean Corpuscular 32.0 Hemoglobin Concent Red Cell 16.9 H Distribution Width Platelet Count 396 Mean Platelet Volume 11.1 H Immature 0.400 Granulocytes % Neutrophils % 69.3 Lymphocytes % 18.2 Monocytes % 7.6 Eosinophils % 4.1 Basophils % 0.4 Nucleated Red Blood 0.0 Cells % Immature 0.030 Granulocytes # Neutrophils # 5.1 Lymphocytes # 1.4 Monocytes # 0.6 Eosinophils # 0.3 Basophils # 0.0 Nucleated Red Blood 0.0 Cells # Sodium Level 136 Potassium Level 3.9 Chloride Level 101 Carbon Dioxide Level 30 Anion Gap 5 Blood Urea Nitrogen 19 Creatinine 0.66 Est Glomerular > 60 Filtrat Rate mL/min Glucose Level 129 Calcium Level 8.7 Test 07/12/18 06:14 07/12/18 08:48 07/12/18 12:35 Bedside Glucose 110 127 126 Exam/Review of Systems Vital Signs Vitals Vital Signs Date Temp Pulse Resp B/P (MAP) Pulse Ox O2 O2 Flow FiO2 Time Delivery Rate 07/12/18 70 19 100 30 11:45 07/12/18 98.6 110/66 Mechanical 11:35 (81) Ventilator Intake and Output 07/11/18 07/11/18 07/12/18 1515:00 23:00 07:00 IntakeIntake Total 300 ml 920 ml 1070 ml OutputOutput Total 1100 ml 375 ml BalanceBalance 300 ml -180 ml 695 ml Exam Constitutional: non-verbal Head: other (Status post right craniectomy) Neck: supple, other (Tracheostomy at the base of the neck, no bleeding) Respiratory: diminished breath sounds Cardiovascular: regular rate and rhythm Gastrointestinal: soft, non-tender, other (G-tube) Extremities: normal pulses Neurological: other (Nonverbal, did not response to any verbal stimuli, spon taneous movement of the extremities) Skin: nl turgor Medications Medications Current Medications IV Flush (NS 3 ml) 3 ml PER PROTOCOL IV ; Start 07/01/18 at 00:00 Ondansetron HCl (Zofran Inj) 4 mg Q6H PRN IV NAUSEA AND/OR VOMITING; Start 07/01/18 at 00:00 Albuterol (Proventil 0.083% (Neb)) 2.5 mg Q2H RESP THERAPY PRN NEB SHORTNESS OF BREATH; Start 07/01/18 at 00:00 Ipratropium [place] (Atrovent 0.02% (Neb)) 0.5 mg Q2H RESP THERAPY PRN NEB SHORTNESS OF BREATH; Start 07/01/18 at 00:00 Acetaminophen (Tylenol Liquid) 650 mg Q6H PRN PO PAIN LEVEL 1-3 OR FEVER; Start 07/01/18 at 00:00 Morphine Sulfate (morphine) 2 mg Q4H PRN IV PAIN LEVEL 7-10 Last administered on 07/05/18at 22:10; Admin Dose 2 MG; Start 07/01/18 at 00:00 Docusate Sodium (Colace) 100 mg Q12H PRN PO CONSTIPATION; Start 07/01/18 at 00:00 Magnesium Hydroxide (Milk Of Mag) 30 ml DAILY PRN PO CONSTIPATION; Start 07/01/18 at 00:00 Atorvastatin Calcium (Lipitor) 80 mg QHS GTB Last administered on 07/11/18at 20:05; Admin Dose 80 MG; Start 07/01/18 at 21:00 Bisacodyl (Dulcolax Supp) 10 mg Q24H PRN [place] NEEDED; Start 07/01/18 at 00:00 Valproate Sodium (Depakene Liquid Cup) 500 mg Q8H GTB Last administered on 07/12/18at 08:27; Admin Dose 500 MG; Start 07/01/18 at 00:00 Insulin Aspart (Novolog Insulin Pen) NOVOLOG *MILD* ALGORITHM Q6 SC Last ad ministered on 07/11/18at 17:32; Admin Dose 1 UNIT; Start 07/01/18 at 00:00 Miscellaneous Information 1 ea NOTE XX ; Start 07/01/18 at 00:30 Glucose (Glutose) 15 gm Q15M PRN PO DECREASED GLUCOSE; Start 07/01/18 at 00:30 Glucose (Glutose) 22.5 gm Q15M PRN PO DECREASED GLUCOSE; Start 07/01/18 at 00:30 Dextrose (D50w Syringe) 25 ml Q15M PRN IV DECREASED GLUCOSE; Start 07/01/18 at 00:30 Dextrose (D50w Syringe) 50 ml Q15M PRN IV DECREASED GLUCOSE; Start 07/01/18 at 00:30 Glucagon (Glucagen) 1 mg Q15M PRN IM DECREASED GLUCOSE; Start 07/01/18 at 00:30 Glucose (Glutose) 15 gm Q15M PRN BUCCAL DECREASED GLUCOSE; Start 07/01/18 at 00:30 Aspirin (Aspirin) 162 mg DAILY PEG Last administered on 07/12/18at 08:28; Admin Dose 162 MG; Start 07/01/18 at 12:30 IV Flush (NS 10 ml) 10 ml PRN PRN IV FLUSH LINE; Start 07/02/18 at 14:00 Furosemide (Lasix) 20 mg DAILY IV Last administered on 07/12/18at 08:30; Admin Dose 20 MG; Start 07/04/18 at 09:00 Cefepime HCl 50 ml @ 100 mls/hr Q12 IVPB Last administered on 07/12/18 08:27; Admin Dose 100 MLS/HR; Start 07/04/18 at 21:00 Insulin Human NPH (Humulin N) 20 unit Q8H SC Last administered on 07/12/18 09:40; Admin Dose 20 UNIT; Start 07/05/18 at 16:00 Lansoprazole (Prevacid) 30 mg DAILY@06 GTB Last administered on 07/12/18 06:10; Admin Dose 30 MG; Start 07/06/18 at 06:00 Haloperidol (Haldol) 5 mg Q4 PRN IV AGITATION Last administered on 07/05/18 22:28; Admin Dose 5 MG; Start 07/05/18 at 22:30 Enoxaparin Sodium (Lovenox) 40 mg DAILY SC Last administered on 07/12/18 09:40; Admin Dose 40 MG; Start 07/06/18 at 09:00 Vancomycin HCl (Vanco Iv Per Pharmacy) VANCOMYCIN PER PHARMACY PER PROTOCOL XX ; Start 07/06/18 at 09:00 Vancomycin HCl 1.25 gm/Sodium Chloride 250 ml @ 83.333 mls/ hr Q12H IVPB Last administered on 07/12/18 12:08; Admin Dose 83.333 MLS/HR; Start 07/06/18 at 11:00 Benazepril HCl (Lotensin) 10 mg DAILY PO Last administered on 07/12/18 08:30; Admin Dose 10 MG; Start 07/09/18 at 09:00 Alteplase, Recombinant (Cathflo (Activase)) 2 mg MAY REPEAT X1 PRN CATHETER IF CATHETER REMAINS OCCULUDED Last administered on 07/11/18at 03:46; Admin Dose 2 MG; Start 07/10/18 at 23:30 Carvedilol (Coreg) 12.5 mg BID NGT Last administered on 07/12/18 08:29; Admin Dose 12.5 MG; Start 07/11/18 at 21:00 SETH AVENDANO Jul 12, 2018 12:54
--- NOTE | 2018-07-12 13:10 | CONS ---
Date/Time of Note Date/Time of Note DATE: 07/12/18 TIME: 13:08 Assessment/Plan Assessment/Plan Hospital Course ID PROGRESS NOTE CURRENT ABX: Vanco # 13 + Cefepime 07/12/18 0535 07/12/18 0535 24H INTERVAL SUMMARY * Chronic encephalopathy - nonverbal, VSS, NAD, no fevers * 07/06/18 CXR: IMPRESSION:Improved aeration of the right lung with residual right basilar opacities. Increased left basilar opacity. Findings represent pneumonia versus atelectasis. Possible small right pleural effusion. Cardiomegaly. Support lines and tubes stable. Exam Constitutional: non-verbal Head: other (Status post right craniectomy) Neck: supple, other (Tracheostomy at the base of the neck, no bleeding) Respiratory: diminished breath sounds Cardiovascular: regular rate and rhythm Gastrointestinal: soft, non-tender, other (G-tube) Extremities: normal pulses Neurological: other (Nonverbal, did not response to any verbal stimuli, spontaneous movement of the extremities) Skin: nl turgor ID ASSESSMENT 52 yo M w/Hx of ICH-> S/P craniotomy w/ Seizure disorder and chronic encephalopathy admit with: 1. Status post septic shock => RESOLVED 2. Healthcare associated pneumonia, possibly aspirated * Lung atelectasis, status post bronchoscopy by Dr. Wall on 07/06/2018 * No significant findings on bronch 3. Recurrent UTI 4. Chronic respiratory failure 5. Dyphagia - peg 6. Ischemic Cardiomyopathy w/ejection fraction of 25-30% 7. CAD w/history of PTCA * status post stent placement to LAD and RCA. 8. HTN 9. Diabetes 10. Anemia 11.Morbid obesity CURRENT ABX: Vanco # 13 + Cefepime ID RECOMMENDATIONS Case d/w Dr. Nieto --> has completed adequate course of ABX TELEPHONE ORDER FROM DR. NIETO: * 1. DC ABX TODAY * 2. May DC to SNF OFF ABX when cleared by primary . Result Diagram: 07/12/1853407/12/18 0535 Results 24hrs Laboratory Tests Test 07/11/18 15:22 07/11/18 17:28 07/12/18 00:01 07/12/18 05:35 Bedside Glucose 142 151 143 White Blood Count 7.4 Red Blood Count 3.46 L Hemoglobin 9.1 L Hematocrit 28.4 L Mean Corpuscular 82.1 Volume Mean Corpuscular 26.3 L Hemoglobin Mean Corpuscular 32.0 Hemoglobin Concent Red Cell 16.9 H Distribution Width Platelet Count 396 Mean Platelet Volume 11.1 H Immature 0.400 Granulocytes % Neutrophils % 69.3 Lymphocytes % 18.2 Monocytes % 7.6 Eosinophils % 4.1 Basophils % 0.4 Nucleated Red Blood 0.0 Cells % Immature 0.030 Granulocytes # Neutrophils # 5.1 Lymphocytes # 1.4 Monocytes # 0.6 Eosinophils # 0.3 Basophils # 0.0 Nucleated Red Blood 0.0 Cells # Sodium Level 136 Potassium Level 3.9 Chloride Level 101 Carbon Dioxide Level 30 Anion Gap 5 Blood Urea Nitrogen 19 Creatinine 0.66 Est Glomerular > 60 Filtrat Rate mL/min Glucose Level 129 Calcium Level 8.7 Test 07/12/18 06:14 07/12/18 08:48 07/12/18 12:35 Bedside Glucose 110 127 126 Consultation Date/Type/Reason Admit Date/Time Jun 30, 2018 at 16:55 Initial Consult Date Requesting Provider: NIA DOMINGO MD Exam/Review of Systems Vital Signs Vitals Vital Signs Date Temp Pulse Resp B/P (MAP) Pulse Ox O2 O2 Flow FiO2 Time Delivery Rate 07/12/18 70 19 100 30 11:45 07/12/18 98.6 110/66 Mechanical 11:35 (81) Ventilator Intake and Output 07/11/18 07/11/18 07/12/18 1515:00 23:00 07:00 IntakeIntake Total 300 ml 920 ml 1070 ml OutputOutput Total 1100 ml 375 ml BalanceBalance 300 ml -180 ml 695 ml Medications Medications Current Medications IV Flush (NS 3 ml) 3 ml PER PROTOCOL IV ; Start 07/01/18 at 00:00 Ondansetron HCl (Zofran Inj) 4 mg Q6H PRN IV NAUSEA AND/OR VOMITING; Start 07/01/18 at 00:00 Albuterol (Proventil 0.083% (Neb)) 2.5 mg Q2H RESP THERAPY PRN NEB SHORTNESS OF BREATH; Start 07/01/18 at 00:00 Ipratropium [place] (Atrovent 0.02% (Neb)) 0.5 mg Q2H RESP THERAPY PRN NEB SHORTNESS OF BREATH; Start 07/01/18 at 00:00 Acetaminophen (Tylenol Liquid) 650 mg Q6H PRN PO PAIN LEVEL 1-3 OR FEVER; Start 07/01/18 at 00:00 Morphine Sulfate (morphine) 2 mg Q4H PRN IV PAIN LEVEL 7-10 Last administered on 07/05/18at 22:10; Admin Dose 2 MG; Start 07/01/18 at 00:00 Docusate Sodium (Colace) 100 mg Q12H PRN PO CONSTIPATION; Start 07/01/18 at 0 0:00 Magnesium Hydroxide (Milk Of Mag) 30 ml DAILY PRN PO CONSTIPATION; Start 07/01/18 at 00:00 Atorvastatin Calcium (Lipitor) 80 mg QHS GTB Last administered on 07/11/18at 20:05; Admin Dose 80 MG; Start 07/01/18 at 21:00 Bisacodyl (Dulcolax Supp) 10 mg Q24H PRN [place] NEEDED; Start 07/01/18 at 00:00 Valproate Sodium (Depakene Liquid Cup) 500 mg Q8H GTB Last administered on 07/12/18at 08:27; Admin Dose 500 MG; Start 07/01/18 at 00:00 Insulin Aspart (Novolog Insulin Pen) NOVOLOG *MILD* ALGORITHM Q6 SC Last administered on 07/11/18at 17:32; Admin Dose 1 UNIT; Start 07/01/18 at 00:00 Miscellaneous Information 1 ea NOTE XX ; Start 07/01/18 at 00:30 Glucose (Glutose) 15 gm Q15M PRN PO DECREASED GLUCOSE; Start 07/01/18 at 00:30 Glucose (Glutose) 22.5 gm Q15M PRN PO DECREASED GLUCOSE; Start 07/01/18 at 00:30 Dextrose (D50w Syringe) 25 ml Q15M PRN IV DECREASED GLUCOSE; Start 07/01/18 at 00:30 Dextrose (D50w Syringe) 50 ml Q15M PRN IV DECREASED GLUCOSE; Start 07/01/18 at 00:30 Glucagon (Glucagen) 1 mg Q15M PRN IM DECREASED GLUCOSE; Start 07/01/18 at 00:30 Glucose (Glutose) 15 gm Q15M PRN BUCCAL DECREASED GLUCOSE; Start 07/01/18 at 00:30 Aspirin (Aspirin) 162 mg DAILY PEG Last administered on 07/12/18at 08:28; Admin Dose 162 MG; Start 07/01/18 at 12:30 IV Flush (NS 10 ml) 10 ml PRN PRN IV FLUSH LINE; Start 07/02/18 at 14:00 Furosemide (Lasix) 20 mg DAILY IV Last administered on 07/12/18 08:30; Admin Dose 20 MG; Start 07/04/18 at 09:00 Cefepime HCl 50 ml @ 100 mls/hr Q12 IVPB Last administered on 07/12/18 08:27; Admin Dose 100 MLS/HR; Start 07/04/18 at 21:00 Insulin Human NPH (Humulin N) 20 unit Q8H SC Last administered on 07/12/18 09:40; Admin Dose 20 UNIT; Start 07/05/18 at 16:00 Lansoprazole (Prevacid) 30 mg DAILY@06 GTB Last administered on 07/12/18 06:10; Admin Dose 30 MG; Start 07/06/18 at 06:00 Haloperidol (Haldol) 5 mg Q4 PRN IV AGITATION Last administered on 07/05/18 22:28; Admin Dose 5 MG; Start 07/05/18 at 22:30 Enoxaparin Sodium (Lovenox) 40 mg DAILY SC Last administered on 07/12/18 09:40; Admin Dose 40 MG; Start 07/06/18 at 09:00 Vancomycin HCl (Vanco Iv Per Pharmacy) VANCOMYCIN PER PHARMACY PER PROTOCOL XX ; Start 07/06/18 at 09:00 Vancomycin HCl 1.25 gm/Sodium Chloride 250 ml @ 83.333 mls/ hr Q12H IVPB Last administered on 07/12/18 12:08; Admin Dose 83.333 MLS/HR; Start 07/06/18 at 11:00 Benazepril HCl (Lotensin) 10 mg DAILY PO Last administered on 07/12/18 08:30; Admin Dose 10 MG; Start 07/09/18 at 09:00 Alteplase, Recombinant (Cathflo (Activase)) 2 mg MAY REPEAT X1 PRN CATHETER IF CATHETER REMAINS OCCULUDED Last administered on 07/11/18 03:46; Admin Dose 2 MG; Start 07/10/18 at 23:30 Carvedilol (Coreg) 12.5 mg BID NGT Last administered on 1/21/19at 08:29; Admin Dose 12.5 MG; Start 07/11/18 at 21:00 HAILE RAYA NP Jul 12, 2018 13:10
[2018-07-12] MEDS: ATORVASTATIN 80 MG TAB GTB SCH (22:09)
[2018-07-13] VITALS (23 sets, daily range): BP systolic 105–140; BP diastolic 54–66; PULSE 48–92; RESP 16–24
[2018-07-13] MEDS: INSULIN ASPART [NOVOLOG] 3 ML PEN SC SCH ×3 (05:53→17:18)
[2018-07-13] MEDS: LANSOPRAZOLE 30 MG CAP GTB SCH (05:53)
[2018-07-13] MEDS: VALPROIC ACID LIQUID CUP 250 MG/5 ML CUP GTB SCH ×2 (08:46→17:15)
[2018-07-13] MEDS: ASPIRIN 81 MG TAB PEG SCH (08:46)
[2018-07-13] MEDS: BENAZEPRIL 10 MG TAB PO SCH (08:47)
[2018-07-13] MEDS: ENOXAPARIN 40 MG/0.4 ML SYG SC SCH (08:57)
[2018-07-13] MEDS: NPH, HUMAN INSULIN ISOPHANE 3ML VIAL SC SCH ×2 (08:59→16:00)
[2018-07-13] MEDS: FUROSEMIDE 20 MG INJ IV SCH (09:07)
--- NOTE | 2018-07-13 09:48 | CONS ---
Date/Time of Note Date/Time of Note DATE: 07/13/18 TIME: 09:46 Assessment/Plan Assessment/Plan Assessment/Plan Ventilator setting; 16, tidal volume 500, PEEP of 5, 30% FiO2. Assessment recommendations; 1. Patient with history of chronic encephalopathy and VDR F admitted for sepsis due to pneumonia and UTI. Currently on appropriate antimicrobial regimen. 2. Anemia. 3. History of prior craniotomy. 4. Diabetes. 5. Stable seizure disorder. 6. History of hypertension. Continue current supportive care. Consider transfer to senior living. Antibiotics per ID recommendations. Result Diagram: 07/13/18 0501 07/13/18 0501 Results 24hrs Laboratory Tests Test 07/12/18 12:35 07/12/18 16:04 07/12/18 17:47 07/12/18 23:50 Bedside Glucose 126 116 118 88 Test 07/13/18 05:01 07/13/18 05:51 07/13/18 08:45 White Blood Count 6.4 Red Blood Count 3.38 L Hemoglobin 8.7 L Hematocrit 27.6 L Mean Corpuscular 81.7 L Volume Mean Corpuscular 25.7 L Hemoglobin Mean Corpuscular 31.5 L Hemoglobin Concent Red Cell 17.0 H Distribution Width Platelet Count 354 Mean Platelet Volume 10.2 Immature 0.500 H Granulocytes % Neutrophils % 60.2 Lymphocytes % 23.8 Monocytes % 9.9 Eosinophils % 5.0 Basophils % 0.6 Nucleated Red Blood 0.0 Cells % Immature 0.030 Granulocytes # Neutrophils # 3.9 Lymphocytes # 1.5 Monocytes # 0.6 Eosinophils # 0.3 Basophils # 0.0 Nucleated Red Blood 0.0 Cells # Sodium Level 138 Potassium Level 3.9 Chloride Level 102 Carbon Dioxide Level 29 Anion Gap 7 Blood Urea Nitrogen 18 Creatinine 0.63 Est Glomerular > 60 Filtrat Rate mL/min Glucose Level 110 Calcium Level 8.7 Bedside Glucose 102 95 Consultation Date/Type/Reason Admit Date/Time Jun 30, 2018 at 16:55 Initial Consult Date Type of Consult Pulmonary/critical care Requesting Provider: NIA DOMINGO MD 24 HR Interval Summary Free Text/Dictation Patient's condition remains stable. Has remained hemodynamically stable. General exam; middle-aged male, on ventilator via tracheostomy, unresponsive, currently in no distress. Exam/Review of Systems Vital Signs Vitals Vital Signs Date Temp Pulse Resp B/P (MAP) Pulse Ox O2 O2 Flow FiO2 Time Delivery Rate 07/13/18 98.4 56 18 138/66 96 Mechanical 07:40 (90) Ventilator 07/13/18 30 05:15 Intake and Output 07/12/18 07/12/18 07/13/18 1515:00 23:00 07:00 IntakeIntake Total 1320 ml 1070 ml OutputOutput Total 1000 ml 900 ml BalanceBalance 320 ml 170 ml Exam H EENT exam; supple neck, no lymphadenopathy. No JVD. Tracheostomy in place. Insertion site is clean. Patient has fair dentition. There is stable right parietal skull depression. Chest exam; clear to auscultation. S1-S2 audible, no murmurs. Regular rhythm. Abdomen exam; soft, no organomegaly. G-tube in place. Bowel sounds audible. Mildly protuberant. Extremity exam; no peripheral edema clubbing. Pulses 1+. PROGRAM STRATEGIST exam; patient remains unresponsive. Medications Medications Current Medications IV Flush (NS 3 ml) 3 ml PER PROTOCOL IV ; Start 07/01/18 at 00:00 Ondansetron HCl (Zofran Inj) 4 mg Q6H PRN IV NAUSEA AND/OR VOMITING; Start 07/01/18 at 00:00 Albuterol (Proventil 0.083% (Neb)) 2.5 mg Q2H RESP THERAPY PRN NEB SHORTNESS OF BREATH; Start 07/01/18 at 00:00 Ipratropium [place] (Atrovent 0.02% (Neb)) 0.5 mg Q2H RESP THERAPY PRN NEB SHORTNESS OF BREATH; Start 07/01/18 at 00:00 Acetaminophen (Tylenol Liquid) 650 mg Q6H PRN PO PAIN LEVEL 1-3 OR FEVER; Start 07/01/18 at 00:00 Morphine Sulfate (morphine) 2 mg Q4H PRN IV PAIN LEVEL 7-10 Last administered on 07/05/18at 22:10; Admin Dose 2 MG; Start 07/01/18 at 00:00 Docusate Sodium (Colace) 100 mg Q12H PRN PO CONSTIPATION; Start 07/01/18 at 00:00 Magnesium Hydroxide (Milk Of Mag) 30 ml DAILY PRN PO CONSTIPATION; Start 07/01/18 at 00:00 Atorvastatin Calcium (Lipitor) 80 mg QHS GTB Last administered on 07/12/18at 22:09; Admin Dose 80 MG; Start 07/01/18 at 21:00 Bisacodyl (Dulcolax Supp) 10 mg Q24H PRN [place] NEEDED; Start 07/01/18 at 00:00 Valproate Sodium (Depakene Liquid Cup) 500 mg Q8H GTB Last administered on 07/13/18at 08:46; Admin Dose 500 MG; Start 07/01/18 at 00:00 Insulin Aspart (Novolog Insulin Pen) NOVOLOG *MILD* ALGORITHM Q6 SC Last administered on 07/11/18at 17:32; Admin Dose 1 UNIT; Start 07/01/18 at 00:00 Miscellaneous Information 1 ea NOTE XX ; Start 07/01/18 at 00:30 Glucose (Glutose) 15 gm Q15M PRN PO DECREASED GLUCOSE; Start 07/01/18 at 00:30 Glucose (Glutose) 22.5 gm Q15M PRN PO DECREASED GLUCOSE; Start 07/01/18 at 00:30 Dextrose (D50w Syringe) 25 ml Q15M PRN IV DECREASED GLUCOSE; Start 07/01/18 at 00:30 Dextrose (D50w Syringe) 50 ml Q15M PRN IV DECREASED GLUCOSE; Start 07/01/18 at 00:30 Glucagon (Glucagen) 1 mg Q15M PRN IM DECREASED GLUCOSE; Start 07/01/18 at 00:30 Glucose (Glutose) 15 gm Q15M PRN BUCCAL DECREASED GLUCOSE; Start 07/01/18 at 00:30 Aspirin (Aspirin) 162 mg DAILY PEG Last administered on 07/13/18at 08:46; Admin Dose 162 MG; Start 07/01/18 at 12:30 IV Flush (NS 10 ml) 10 ml PRN PRN IV FLUSH LINE; Start 07/02/18 at 14:00 Furosemide (Lasix) 20 mg DAILY IV Last administered on 07/13/18at 09:07; Admin Dose 20 MG; Start 07/04/18 at 09:00 Insulin Human NPH (Humulin N) 20 unit Q8H SC Last administered on 07/13/18at 08:59; Admin Dose 20 UNIT; Start 07/05/18 at 16:00 Lansoprazole (Prevacid) 30 mg DAILY@06 GTB Last administered on 07/13/18at 05:53; Admin Dose 30 MG; Start 07/06/18 at 06:00 Haloperidol (Haldol) 5 mg Q4 PRN IV AGITATION Last administered on 07/05/18at 22:28; Admin Dose 5 MG; Start 07/05/18 at 22:30 Enoxaparin Sodium (Lovenox) 40 mg DAILY SC Last administered on 07/13/18at 08:57; Admin Dose 40 MG; Start 07/06/18 at 09:00 Vancomycin HCl (Vanco Iv Per Pharmacy) VANCOMYCIN PER PHARMACY PER PROTOCOL XX ; Start 07/06/18 at 09:00; Stop 07/13/18 at 10:50 Vancomycin HCl 1.25 gm/Sodium Chloride 250 ml @ 83.333 mls/ hr Q12H IVPB Last administered on 07/12/18at 23:43; Admin Dose 83.333 MLS/HR; Start 07/06/18 at 11:00; Stop 07/13/18 at 10:50 Benazepril HCl (Lotensin) 10 mg DAILY PO Last administered on 07/13/18at 08:47; Admin Dose 10 MG; Start 07/09/18 at 09:00 Alteplase, Recombinant (Cathflo (Activase)) 2 mg MAY REPEAT X1 PRN CATHETER IF CATHETER REMAINS OCCULUDED Last administered on 07/11/18at 03:46; Admin Dose 2 MG; Start 07/10/18 at 23:30 Carvedilol (Coreg) 12.5 mg BID NGT Last administered on 07/12/18at 22:11; Admin Dose 12.5 MG; Start 07/11/18 at 21:00 Miscellaneous Information (* Miscellaneous Pharmacy Order) TELEPHONE ORDER FROM ... ONCE XX ; Start 07/12/18 at 14:00; Stop 07/13/18 at 11:00 MER CHRIS Jul 13, 2018 09:48
--- NOTE | 2018-07-13 11:25 | CONS ---
Date/Time of Note Date/Time of Note DATE: 07/13/18 TIME: 11:22 Assessment/Plan Assessment/Plan Assessment/Plan 1. Hypotension - BP better now - con't monitoring - better now - NSVT nted - add BB now. Tolerated BB. Allow lower HR toprevent NSVT if BP oK. 2. Cardiomyopathy with decreased left ventricular ejection fraction, last known to be 30% by echo in 01/2018.-neg trop x 3 - will monitor clinically - treated.Not a candidate for ICD. NO new VT noted. 3. History of prior percutaneous transluminal coronary angioplasty and stent placements, most recently to LAD in 2014. On meds now. 4. Urinary tract infection, likely urosepsis. Treated with anti-Bx. 5. Diabetes mellitus. 6. Chronic respiratory failure, status post tracheostomy- con't resp Rx. 7. Dysphagia, status post G-tube. 8. Chronic encephalopathy- con't resp Rx. 9. Leukocytosis. 10. History of hemorrhagic cerebrovascular accident - no anti-coag now. 11.NSVT - now in sinus on tele. 12. Bradycardia-Overnight. Follow for sig recurrence - rate controlled overall. Allow lower HR to prevent NSVT if BP oK. Result Diagram: 07/13/18 0501 07/13/18 0501 Results 24hrs Laboratory Tests Test 07/12/18 12:35 07/12/18 16:04 07/12/18 17:47 07/12/18 23:50 Bedside Glucose 126 116 118 88 Test 07/13/18 05:01 07/13/18 05:51 07/13/18 08:45 White Blood Count 6.4 Red Blood Count 3.38 L Hemoglobin 8.7 L Hematocrit 27.6 L Mean Corpuscular 81.7 L Volume Mean Corpuscular 25.7 L Hemoglobin Mean Corpuscular 31.5 L Hemoglobin Concent Red Cell 17.0 H Distribution Width Platelet Count 354 Mean Platelet Volume 10.2 Immature 0.500 H Granulocytes % Neutrophils % 60.2 Lymphocytes % 23.8 Monocytes % 9.9 Eosinophils % 5.0 Basophils % 0.6 Nucleated Red Blood 0.0 Cells % Immature 0.030 Granulocytes # Neutrophils # 3.9 Lymphocytes # 1.5 Monocytes # 0.6 Eosinophils # 0.3 Basophils # 0.0 Nucleated Red Blood 0.0 Cells # Sodium Level 138 Potassium Level 3.9 Chloride Level 102 Carbon Dioxide Level 29 Anion Gap 7 Blood Urea Nitrogen 18 Creatinine 0.63 Est Glomerular > 60 Filtrat Rate mL/min Glucose Level 110 Calcium Level 8.7 Bedside Glucose 102 95 Consultation Date/Type/Reason Admit Date/Time Jun 30, 2018 at 16:55 Initial Consult Date Requesting Provider: NIA DOMINGO MD 24 HR Interval Summary Free Text/Dictation Allow lower HR to prevent NSVT if BP OK. ROS: No fever, no chills, no nausea, no vomiting, no diarrhea/constipation - per nurse Exam/Review of Systems Vital Signs Vitals Vital Signs Date Temp Pulse Resp B/P (MAP) Pulse Ox O2 O2 Flow FiO2 Time Delivery Rate 07/13/18 30 09:44 07/13/18 48 08:00 07/13/18 98.4 18 138/66 96 Mechanical 07:40 (90) Ventilator Intake and Output 07/12/18 07/12/18 07/13/18 1515:00 23:00 07:00 IntakeIntake Total 1320 ml 1070 ml OutputOutput Total 1000 ml 900 ml BalanceBalance 320 ml 170 ml Exam General: WN/WD/NAD, AOx 0 HEENT: Unicetric/atraumatic/EOMI (does not follow commands) NECK: trach Lymph: no lymphadenopathy HEART: regular with no S3, II/ systolic murmur at apex LUNGS: Coarse sounds ABD: soft, NT, ND, +BS : Intact Neuro: non focal SKIN: chronic changes EXT: trace edema Medications Medications Current Medications IV Flush (NS 3 ml) 3 ml PER PROTOCOL IV ; Start 07/01/18 at 00:00 Ondansetron HCl (Zofran Inj) 4 mg Q6H PRN IV NAUSEA AND/OR VOMITING; Start 07/01/18 at 00:00 Albuterol (Proventil 0.083% (Neb)) 2.5 mg Q2H RESP THERAPY PRN NEB SHORTNESS OF BREATH; Start 07/01/18 at 00:00 Ipratropium [place] (Atrovent 0.02% (Neb)) 0.5 mg Q2H RESP THERAPY PRN NEB SHORTNESS OF BREATH; Start 07/01/18 at 00:00 Acetaminophen (Tylenol Liquid) 650 mg Q6H PRN PO PAIN LEVEL 1-3 OR FEVER; Start 07/01/18 at 00:00 Morphine Sulfate (morphine) 2 mg Q4H PRN IV PAIN LEVEL 7-10 Last administered on 07/05/18at 22:10; Admin Dose 2 MG; Start 07/01/18 at 00:00 Docusate Sodium (Colace) 100 mg Q12H PRN PO CONSTIPATION; Start 07/01/18 at 00:00 Magnesium Hydroxide (Milk Of Mag) 30 ml DAILY PRN PO CONSTIPATION; Start 07/01/18 at 00:00 Atorvastatin Calcium (Lipitor) 80 mg QHS GTB Last administered on 07/12/18at 22:09; Admin Dose 80 MG; Start 07/01/18 at 21:00 Bisacodyl (Dulcolax Supp) 10 mg Q24H PRN [place] NEEDED; Start 07/01/18 at 00:00 Valproate Sodium (Depakene Liquid Cup) 500 mg Q8H GTB Last administered on 07/13/18at 08:46; Admin Dose 500 MG; Start 07/01/18 at 00:00 Insulin Aspart (Novolog Insulin Pen) NOVOLOG *MILD* ALGORITHM Q6 SC Last administered on 07/11/18at 17:32; Admin Dose 1 UNIT; Start 07/01/18 at 00:00 Miscellaneous Information 1 ea NOTE XX ; Start 07/01/18 at 00:30 Glucose (Glutose) 15 gm Q15M PRN PO DECREASED GLUCOSE; Start 07/01/18 at 00:30 Glucose (Glutose) 22.5 gm Q15M PRN PO DECREASED GLUCOSE; Start 07/01/18 at 00:30 Dextrose (D50w Syringe) 25 ml Q15M PRN IV DECREASED GLUCOSE; Start 07/01/18 at 00:30 Dextrose (D50w Syringe) 50 ml Q15M PRN IV DECREASED GLUCOSE; Start 07/01/18 at 00:30 Glucagon (Glucagen) 1 mg Q15M PRN IM DECREASED GLUCOSE; Start 07/01/18 at 00:30 Glucose (Glutose) 15 gm Q15M PRN BUCCAL DECREASED GLUCOSE; Start 07/01/18 at 00:30 Aspirin (Aspirin) 162 mg DAILY PEG Last administered on 07/13/18at 08:46; Admin Dose 162 MG; Start 07/01/18 at 12:30 IV Flush (NS 10 ml) 10 ml PRN PRN IV FLUSH LINE; Start 07/02/18 at 14:00 Furosemide (Lasix) 20 mg DAILY IV Last administered on 07/13/18 09:07; Admin Dose 20 MG; Start 07/04/18 at 09:00 Insulin Human NPH (Humulin N) 20 unit Q8H SC Last administered on 07/13/18 08:59; Admin Dose 20 UNIT; Start 07/05/18 at 16:00 Lansoprazole (Prevacid) 30 mg DAILY@06 GTB Last administered on 07/13/18 05:53; Admin Dose 30 MG; Start 07/06/18 at 06:00 Haloperidol (Haldol) 5 mg Q4 PRN IV AGITATION Last administered on 07/05/18 22:28; Admin Dose 5 MG; Start 07/05/18 at 22:30 Enoxaparin Sodium (Lovenox) 40 mg DAILY SC Last administered on 07/13/18 08:57; Admin Dose 40 MG; Start 07/06/18 at 09:00 Benazepril HCl (Lotensin) 10 mg DAILY PO Last administered on 07/13/18 08:47; Admin Dose 10 MG; Start 07/09/18 at 09:00 Alteplase, Recombinant (Cathflo (Activase)) 2 mg MAY REPEAT X1 PRN CATHETER IF CATHETER REMAINS OCCULUDED Last administered on 07/11/18 03:46; Admin Dose 2 MG; Start 07/10/18 at 23:30 Carvedilol (Coreg) 12.5 mg BID NGT Last administered on 07/12/18 22:11; Admin Dose 12.5 MG; Start 07/11/18 at 21:00 KYLEIGH MENDENHALL MD Jul 13, 2018 11:25
--- NOTE | 2018-07-13 12:03 | PN ---
Date/Time of Note Date/Time of Note DATE: 07/13/18 TIME: 12:01 Assessment/Plan VTE Prophylaxis Risk score (from Ns)>0 risk: 9 SCD applied (from Ns): Yes Pharmacological prophylaxis: LMWH Lines/Catheters IV C[facility]ter Type (from [facility]): PICC Line Central line still needed: Yes Urinary Cath still in place: Yes Reason Cath still needed: urinary retention Assessment/Plan Hospital Course Patient continues to have a yellow frothy secretions large amount from the ET tube, pending Schneider eval Assessment/Plan -Lung atelectasis, status post bronchoscopy by Dr. Wall on 07/06/2018. -Sepsis most likely secondary to HCAP and urinary tract infection, f/up on urine and blood cultures. Continue antibiotics per ID recommendations. Dr. Hodge is following in infection disease consultation. -Septic shock, resolved. -ARF, continue ventilatory support. Dr Mitchell is following in pulmonology consultation. -Chronic tracheostomy -Dysphagia with PEG -Coronary artery disease status post stent placement to LAD and RCA. Dr. Vincent is following in cardiology consultation. -Cardiomyopathy with ejection fraction of 25-30% -Hypertension -Diabetes -Morbid obesity -Chronic encephalopathy Further recommendations based on clinical course. Plan of care discussed with Dr. Cortez. Result Diagram: 07/13/18 0501 07/13/18 0501 Results 24hrs Laboratory Tests Test 07/12/18 12:35 07/12/18 16:04 07/12/18 17:47 07/12/18 23:50 Bedside Glucose 126 116 118 88 Test 07/13/18 05:01 07/13/18 05:51 07/13/18 08:45 07/13/18 11:06 White Blood Count 6.4 Red Blood Count 3.38 L Hemoglobin 8.7 L Hematocrit 27.6 L Mean Corpuscular 81.7 L Volume Mean Corpuscular 25.7 L Hemoglobin Mean Corpuscular 31.5 L Hemoglobin Concent Red Cell 17.0 H Distribution Width Platelet Count 354 Mean Platelet Volume 10.2 Immature 0.500 H Granulocytes % Neutrophils % 60.2 Lymphocytes % 23.8 Monocytes % 9.9 Eosinophils % 5.0 Basophils % 0.6 Nucleated Red Blood 0.0 Cells % Immature 0.030 Granulocytes # Neutrophils # 3.9 Lymphocytes # 1.5 Monocytes # 0.6 Eosinophils # 0.3 Basophils # 0.0 Nucleated Red Blood 0.0 Cells # Sodium Level 138 Potassium Level 3.9 Chloride Level 102 Carbon Dioxide Level 29 Anion Gap 7 Blood Urea Nitrogen 18 Creatinine 0.63 Est Glomerular > 60 Filtrat Rate mL/min Glucose Level 110 Calcium Level 8.7 Bedside Glucose 102 95 125 Exam/Review of Systems Vital Signs Vitals Vital Signs Date Temp Pulse Resp B/P (MAP) Pulse Ox O2 O2 Flow FiO2 Time Delivery Rate 07/13/18 30 09:44 07/13/18 48 08:00 07/13/18 98.4 18 138/66 96 Mechanical 07:40 (90) Ventilator Intake and Output 07/12/18 07/12/18 07/13/18 1515:00 23:00 07:00 IntakeIntake Total 1320 ml 1070 ml OutputOutput Total 1000 ml 900 ml BalanceBalance 320 ml 170 ml Exam Constitutional: non-verbal Head: other (Status post right craniectomy) Neck: supple, other (Tracheostomy at the base of the neck, no bleeding) Respiratory: diminished breath sounds Cardiovascular: regular rate and rhythm Gastrointestinal: soft, non-tender, other (G-tube) Extremities: normal pulses Neurological: other (Nonverbal, did not response to any verbal stimuli, spontaneous movement of the extremities) Skin: nl turgor Medications Medications Current Medications IV Flush (NS 3 ml) 3 ml PER PROTOCOL IV ; Start 07/01/18 at 00:00 Ondansetron HCl (Zofran Inj) 4 mg Q6H PRN IV NAUSEA AND/OR VOMITING; Start 07/01/18 at 00:00 Albuterol (Proventil 0.083% (Neb)) 2.5 mg Q2H RESP THERAPY PRN NEB SHORTNESS OF BREATH; Start 07/01/18 at 00:00 Ipratropium [place] (Atrovent 0.02% (Neb)) 0.5 mg Q2H RESP THERAPY PRN NEB SHORTNESS OF BREATH; Start 07/01/18 at 00:00 Acetaminophen (Tylenol Liquid) 650 mg Q6H PRN PO PAIN LEVEL 1-3 OR FEVER; Start 07/01/18 at 00:00 Morphine Sulfate (morphine) 2 mg Q4H PRN IV PAIN LEVEL 7-10 Last administered on 07/05/18at 22:10; Admin Dose 2 MG; Start 07/01/18 at 00:00 Docusate Sodium (Colace) 100 mg Q12H PRN PO CONSTIPATION; Start 07/01/18 at 00:00 Magnesium Hydroxide (Milk Of Mag) 30 ml DAILY PRN PO CONSTIPATION; Start 07/01/18 at 00:00 Atorvastatin Calcium (Lipitor) 80 mg QHS GTB Last administered on 07/12/18at 22:09; Admin Dose 80 MG; Start 07/01/18 at 21:00 Bisacodyl (Dulcolax Supp) 10 mg Q24H PRN NE NEEDED; Start 07/01/18 at 00:00 Valproate Sodium (Depakene Liquid Cup) 500 mg Q8H GTB Last administered on 07/13/18at 08:46; Admin Dose 500 MG; Start 07/01/18 at 00:00 Insulin Aspart (Novolog Insulin Pen) NOVOLOG *MILD* ALGORITHM Q6 SC Last administered on 07/11/18at 17:32; Admin Dose 1 UNIT; Start 07/01/18 at 00:00 Miscellaneous Information 1 ea NOTE XX ; Start 07/01/18 at 00:30 Glucose (Glutose) 15 gm Q15M PRN PO DECREASED GLUCOSE; Start 07/01/18 at 00:30 Glucose (Glutose) 22.5 gm Q15M PRN PO DECREASED GLUCOSE; Start 07/01/18 at 00:30 Dextrose (D50w Syringe) 25 ml Q15M PRN IV DECREASED GLUCOSE; Start 07/01/18 at 00:30 Dextrose (D50w Syringe) 50 ml Q15M PRN IV DECREASED GLUCOSE; Start 07/01/18 at 00:30 Glucagon (Glucagen) 1 mg Q15M PRN IM DECREASED GLUCOSE; Start 07/01/18 at 00:30 Glucose (Glutose) 15 gm Q15M PRN BUCCAL DECREASED GLUCOSE; Start 07/01/18 at 00:30 Aspirin (Aspirin) 162 mg DAILY PEG Last administered on 07/13/18at 08:46; Admin Dose 162 MG; Start 07/01/18 at 12:30 IV Flush (NS 10 ml) 10 ml PRN PRN IV FLUSH LINE; Start 07/02/18 at 14:00 Furosemide (Lasix) 20 mg DAILY IV Last administered on 07/13/18at 09:07; Admin Dose 20 MG; Start 07/04/18 at 09:00 Insulin Human NPH (Humulin N) 20 unit Q8H SC Last administered on 07/13/18 08:59; Admin Dose 20 UNIT; Start 07/05/18 at 16:00 Lansoprazole (Prevacid) 30 mg DAILY@06 GTB Last administered on 07/13/18 05:53; Admin Dose 30 MG; Start 07/06/18 at 06:00 Haloperidol (Haldol) 5 mg Q4 PRN IV AGITATION Last administered on 07/05/18at 22:28; Admin Dose 5 MG; Start 07/05/18 at 22:30 Enoxaparin Sodium (Lovenox) 40 mg DAILY SC Last administered on 07/13/18 08:57; Admin Dose 40 MG; Start 07/06/18 at 09:00 Benazepril HCl (Lotensin) 10 mg DAILY PO Last administered on 07/13/18 08:47; Admin Dose 10 MG; Start 07/09/18 at 09:00 Alteplase, Recombinant (Cathflo (Activase)) 2 mg MAY REPEAT X1 PRN CATHETER IF CATHETER REMAINS OCCULUDED Last administered on 07/11/18at 03:46; Admin Dose 2 MG; Start 07/10/18 at 23:30 Carvedilol (Coreg) 12.5 mg BID NGT Last administered on 07/12/18at 22:11; Admin Dose 12.5 MG; Start 07/11/18 at 21:00 SETH AVENDANO Jul 13, 2018 12:03
--- NOTE | 2018-07-13 14:43 | CONS ---
Assessment/Plan Assessment/Plan Hospital Course No fevers overnight, looks comfortable, afebrile Microbiology: Urine culture grew Enterobacter erogenous, blood cultures negative Indwelling's: Trach PEG Nelson left upper extremity PICC line Physical examination: This is a chronically ill-appearing middle-aged man who is nonresponsive the patient is in no distress head with evidence of right-sided cranial bone removal, sclera nonicteric neck is supple tracheostomy present chest rise symmetrical breath sounds clear, diminished bases. Heart: S1-S2. A bdomen soft, bowel sounds present. Extremities mottled without edema Assessment: 1. Status post septic shock 2. Status post healthcare associated pneumonia, possibly aspirated 3. Status post recurrent UTI 4. Chronic respiratory failure 5. History of intracranial hemorrhage status post craniotomy 6. Cardiomyopathy and history of PTCA 7. Diabetes and hypertension 8. Anemia Plan: Hemodynamically stable, off antibiotics, follow cardiology and pulmonary recommendations Result Diagram: 07/13/18 0501 07/13/18 0501 Results 24hrs Laboratory Tests Test 07/12/18 16:04 07/12/18 17:47 07/12/18 23:50 07/13/18 05:01 Bedside Glucose 116 118 88 White Blood Count 6.4 Red Blood Count 3.38 L Hemoglobin 8.7 L Hematocrit 27.6 L Mean Corpuscular 81.7 L Volume Mean Corpuscular 25.7 L Hemoglobin Mean Corpuscular 31.5 L Hemoglobin Concent Red Cell 17.0 H Distribution Width Platelet Count 354 Mean Platelet Volume 10.2 Immature 0.500 H Granulocytes % Neutrophils % 60.2 Lymphocytes % 23.8 Monocytes % 9.9 Eosinophils % 5.0 Basophils % 0.6 Nucleated Red Blood 0.0 Cells % Immature 0.030 Granulocytes # Neutrophils # 3.9 Lymphocytes # 1.5 Monocytes # 0.6 Eosinophils # 0.3 Basophils # 0.0 Nucleated Red Blood 0.0 Cells # Sodium Level 138 Potassium Level 3.9 Chloride Level 102 Carbon Dioxide Level 29 Anion Gap 7 Blood Urea Nitrogen 18 Creatinine 0.63 Est Glomerular > 60 Filtrat Rate mL/min Glucose Level 110 Calcium Level 8.7 Test 07/13/18 05:51 07/13/18 08:45 07/13/18 11:06 Bedside Glucose 102 95 125 Consultation Date/Type/Reason Admit Date/Time Jun 30, 2018 at 16:55 Initial Consult Date Type of Consult id Requesting Provider: NIA DOMINGO MD Exam/Review of Systems Vital Signs Vitals Vital Signs Date Temp Pulse Resp B/P (MAP) Pulse Ox O2 O2 Flow FiO2 Time Delivery Rate 07/13/18 57 12:00 07/13/18 97.9 105/54 11:40 (71) 07/13/18 30 09:44 07/13/18 18 96 Mechanical 07:40 Ventilator Intake and Output 07/12/18 07/12/18 07/13/18 1515:00 23:00 07:00 IntakeIntake Total 1320 ml 1070 ml OutputOutput Total 1000 ml 900 ml BalanceBalance 320 ml 170 ml Medications Medications Current Medications IV Flush (NS 3 ml) 3 ml PER PROTOCOL IV ; Start 07/01/18 at 00:00 Ondansetron HCl (Zofran Inj) 4 mg Q6H PRN IV NAUSEA AND/OR VOMITING; Start 07/01/18 at 00:00 Albuterol (Proventil 0.083% (Neb)) 2.5 mg Q2H RESP THERAPY PRN NEB SHORTNESS OF BREATH; Start 07/01/18 at 00:00 Ipratropium [place] (Atrovent 0.02% (Neb)) 0.5 mg Q2H RESP THERAPY PRN NEB SHORTNESS OF BREATH; Start 07/01/18 at 00:00 Acetaminophen (Tylenol Liquid) 650 mg Q6H PRN PO PAIN LEVEL 1-3 OR FEVER; Start 07/01/18 at 00:00 Morphine Sulfate (morphine) 2 mg Q4H PRN IV PAIN LEVEL 7-10 Last administered on 07/05/18at 22:10; Admin Dose 2 MG; Start 07/01/18 at 00:00 Docusate Sodium (Colace) 100 mg Q12H PRN PO CONSTIPATION; Start 07/01/18 at 00:00 Magnesium Hydroxide (Milk Of Mag) 30 ml DAILY PRN PO CONSTIPATION; Start 07/01/18 at 00:00 Atorvastatin Calcium (Lipitor) 80 mg QHS GTB Last administered on 07/12/18at 22:09; Admin Dose 80 MG; Start 07/01/18 at 21:00 Bisacodyl (Dulcolax Supp) 10 mg Q24H PRN [place] NEEDED; Start 07/01/18 at 00:00 Valproate Sodium (Depakene Liquid Cup) 500 mg Q8H GTB Last administered on 07/13/18at 08:46; Admin Dose 500 MG; Start 07/01/18 at 00:00 Insulin Aspart (Novolog Insulin Pen) NOVOLOG *MILD* ALGORITHM Q6 SC Last administered on 07/11/18at 17:32; Admin Dose 1 UNIT; Start 07/01/18 at 00:00 Miscellaneous Information 1 ea NOTE XX ; Start 07/01/18 at 00:30 Glucose (Glutose) 15 gm Q15M PRN PO DECREASED GLUCOSE; Start 07/01/18 at 00:30 Glucose (Glutose) 22.5 gm Q15M PRN PO DECREASED GLUCOSE; Start 07/01/18 at 00:30 Dextrose (D50w Syringe) 25 ml Q15M PRN IV DECREASED GLUCOSE; Start 07/01/18 at 00:30 Dextrose (D50w Syringe) 50 ml Q15M PRN IV DECREASED GLUCOSE; Start 07/01/18 at 00:30 Glucagon (Glucagen) 1 mg Q15M PRN IM DECREASED GLUCOSE; Start 07/01/18 at 00:30 Glucose (Glutose) 15 gm Q15M PRN BUCCAL DECREASED GLUCOSE; Start 07/01/18 at 00:30 Aspirin (Aspirin) 162 mg DAILY PEG Last administered on 07/13/18at 08:46; Admin Dose 162 MG; Start 07/01/18 at 12:30 IV Flush (NS 10 ml) 10 ml PRN PRN IV FLUSH LINE; Start 07/02/18 at 14:00 Furosemide (Lasix) 20 mg DAILY IV Last administered on 07/13/18at 09:07; Admin Dose 20 MG; Start 07/04/18 at 09:00 Insulin Human NPH (Humulin N) 20 unit Q8H SC Last administered on 07/13/18at 08:59; Admin Dose 20 UNIT; Start 07/05/18 at 16:00 Lansoprazole (Prevacid) 30 mg DAILY@06 GTB Last administered on 07/13/18at 05:53; Admin Dose 30 MG; Start 07/06/18 at 06:00 Haloperidol (Haldol) 5 mg Q4 PRN IV AGITATION Last administered on 07/05/18at 22:28; Admin Dose 5 MG; Start 07/05/18 at 22:30 Enoxaparin Sodium (Lovenox) 40 mg DAILY SC Last administered on 07/13/18at 08:57; Admin Dose 40 MG; Start 07/06/18 at 09:00 Benazepril HCl (Lotensin) 10 mg DAILY PO Last administered on 07/13/18at 08:47; Admin Dose 10 MG; Start 07/09/18 at 09:00 Alteplase, Recombinant (Cathflo (Activase)) 2 mg MAY REPEAT X1 PRN CATHETER IF CATHETER REMAINS OCCULUDED Last administered on 07/11/18at 03:46; Admin Dose 2 MG; Start 07/10/18 at 23:30 Carvedilol (Coreg) 12.5 mg BID NGT Last administered on 07/12/18at 22:11; Admin Dose 12.5 MG; Start 07/11/18 at 21:00 Date/Time of Note Date/Time of Note DATE: 07/13/18 TIME: 14:42 SANDER AMADOR NP Jul 13, 2018 14:43
--- NOTE | 2018-07-13 23:09 | DS ---
Date/Time of Note Date/Time of Note DATE: 07/13/18 TIME: 23:08 Discharge Summary Admission/Discharge Info Admit Date/Time Jun 30, 2018 at 16:55 Discharge Date/Time Jul 13, 2018 at 20:33 Patient Condition: Stable Hx of Present Illness The patient is a 52-year-old gentleman with extensive medical history including coronary artery disease status post stent placement, cardiomyopathy with decreased ejection fraction, hypertension, diabetes, morbid obesity, status post right hemicraniectomy for subdural hematoma, chronic tracheostomy, dysphagia with G-tube and chronic encephalopathy. Patient develop fever, tachypnea and Ta chycardia and was brought for further evaluation to the emergency room. Patient had elevated white blood cells to 20,000 and elevated lactate. Urinalysis was indicative of urinary tract infection. Patient is undergoing IV fluid challenge, and started on broad-spectrum antibiotics. Patient also noted to have hypotension. Patient will be admitted to intensive care unit for further evaluation and management. Hospital Course Patient discharged to [facility] -Lung atelectasis, status post bronchoscopy by Dr. Hernandez on 07/06/2018. -Sepsis most likely secondary to HCAP and urinary tract infection, f/up on urine and blood cultures. Continue antibiotics per ID recommendations. Dr. Hodge is following in infection disease consultation. -Septic shock, resolved. -ARF, continue ventilatory support. Dr Mitchell is following in pulmonology consultation. -Chronic tracheostomy -Dysphagia with PEG -Coronary artery disease status post stent placement to LAD and RCA. Dr. Vincent is following in cardiology consultation. -Cardiomyopathy with ejection fraction of 25-30% -Hypertension -Diabetes -Morbid obesity -Chronic encephalopathy Plan of care discussed with Dr. Cortez. Home Meds Reported Medications Acetylcysteine* (Mucomyst*) 4 Ml Soln, 3 ML NEB BID, EA 06/30/18 Na Phos,M-B/Na Phos,Di-Ba (Fleet Enema Extra) 230 Ml Enema, 230 ML RC NEEDED, ENEMA 06/30/18 Bisacodyl* (Bisacodyl*) 10 Mg Supp, 10 MG MD Q24H PRN for NEEDED, SUPP 06/30/18 Magnesium Hydroxide* (Milk Of Magnesia*) 400 Mg/5 Ml Oral.susp, 30 ML GTB Q24H for CONSTIPATION, ML 06/30/18 Sennosides* (Senna Lax*) 8.6 Mg Tablet, 2 TAB GTB BID, TAB 06/30/18 Insulin Aspart* (Novolog Insulin Pen*) 100 Unit/Ml Soln, 0 SC .SLIDING SCALE AC, EA IF BS 0-120=0 UNITS,120-150=0 UNIT, 151-200=1 UNIT, 201-250=2 UNIT, 251-300=3 UNIT, 301-350=4 UNIT, 351-400=5 UNIT, ABOVE 400=6 UNIT AND CALL MD. 06/30/18 Glucagon HCl (Glucagon HCl) 1 Mg Vial, 1 MG IJ NEEDED, VIAL IF BS BELOW 60 06/30/18 Insulin NPH Human Isophane (Humulin N) 100 Unit/1 Ml Vial, 28 UNIT SQ Q8H, VIAL 06/30/18 Hydrocodone/Acetaminophen ([place] 5-325 Tablet) 1 Each Tablet, 1 EACH GTB Q6H, TAB NEEDED FOR PAIN 06/30/18 Acetaminophen* (Tylenol*) 500 Mg Tab, 1000 MG GTB Q4H PRN for PAIN 4-6/10, TAB 06/30/18 Acetaminophen* (Tylenol*) 325 Mg Tablet, 650 MG GTB PRN PRN for TRACH TUBE CHANGE, TAB 06/30/18 Acetaminophen* (Tylenol*) 325 Mg Tablet, 650 MG GTB Q4H PRN for MILD PAIN LEVEL 1-3, TAB AND FEVER 100 AND ABOVE 06/30/18 Amino Acids/Protein Hydrolys (PRO-STAT LIQUID) 30 Ml Liquid.pkt, 30 ML GTB DAILY SUGAR FREE 06/30/18 Cran/Vitc/Mannose/Inulin/Brom (Uti-Stat Liquid) 3,875 Mg/30 Ml Liquid, 30 ML GTB DAILY 06/30/18 Hydralazine Hcl* (Hydralazine Hcl*) 25 Mg Tab, 25 MG GTB Q6H, #60 TAB 06/30/18 Furosemide* (Lasix* Liq) 40 Mg/5 Ml Cup, 20 MG GTB DAILY, EA 06/30/18 Carvedilol* (Carvedilol*) 3.125 Mg Tablet, 3.125 MG GTB BID, #60 TAB 06/30/18 Atorvastatin* (Atorvastatin*) 80 Mg Tablet, 80 MG GTB QHS, #30 TAB 06/30/18 Aspirin* (Aspirin* EC) 81 Mg Tablet.dr, 162 MG GTB DAILY, TAB 06/30/18 Valproic Acid* (Valproic Acid* Liq) 250 Mg/5 Ml Syrup, 10 ML GTB Q8H, ML 06/30/18 Sucralfate* (Carafate*) 1 Gm/10 Ml Susp, 1 GM GTB QID, EA 06/30/18 Lisinopril* (Lisinopril*) 5 Mg Tablet, 5 MG GTB DAILY, #30 TAB 06/30/18 Lansoprazole* (Lansoprazole*) 30 Mg Capsule.dr, 30 MG GTB BID, CAP 06/30/18 Lactobacillus Acidophilus (Acidophilus Lactobacillus) 1 Each Capsule, 1 EACH GTB BID, CAP 06/30/18 Primary Care Provider Chaparro Cortez MD Pending Labs Laboratory Tests Test 07/12/18 23:50 07/13/18 05:01 07/13/18 05:51 07/13/18 08:45 Bedside 88 102 95 Glucose mg/dL (70-220) mg/dL (70-220) mg/dL (70-220) White Blood 6.4 Count 10^3/ul (4.8-1 0.8) Red Blood 3.38 Count 10^6/ul (4.70- 6.10) Hemoglobin 8.7 g/dl (14.0-18. 0) Hematocrit 27.6 % (42.0-52.0) Mean 81.7 Corpuscular fl (82.0-101.0 Volume ) Mean 25.7 Corpuscular pg (29.0-33.0) Hemoglobin Mean 31.5 Corpuscular g/dl (32.0-37. Hemoglobin Conc 0) ent Red Cell 17.0 Distribution % (11.5-14.5) Width Platelet Count 354 10^3/UL (140-4 15) Mean Platelet 10.2 Volume fl (7.4-10.4) Immature 0.500 Granulocytes % % (0.001-0.429 ) Neutrophils % 60.2 % (39.0-77.0) Lymphocytes % 23.8 % (15.0-51.0) Monocytes % 9.9 % (0.0-11.0) Eosinophils % 5.0 % (0.0-7.0) Basophils % 0.6 % (0.0-2.0) Nucleated Red 0.0 Blood Cells % /100WBC (0.0-0 .0) Immature 0.030 Granulocytes # 10^3/ul (0.0-0 .031) Neutrophils # 3.9 10^3/ul (1.6-7 .5) Lymphocytes # 1.5 10^3/ul (0.8-2 .9) Monocytes # 0.6 10^3/ul (0.3-0 .9) Eosinophils # 0.3 10^3/ul (0.0-0 .5) Basophils # 0.0 10^3/ul (0.0-0 .1) Nucleated Red 0.0 Blood Cells # 10^3/ul (0.0-0 .0) Sodium Level 138 mmol/L (135-14 4) Potassium 3.9 Level mmol/L (3.5-5. 1) Chloride Level 102 mmol/L (97-110 ) Carbon Dioxide 29 Level mmol/L (21-31) Anion Gap 7 (5-13) Blood Urea 18 Nitrogen mg/dl (7-20) Creatinine 0.63 mg/dl (0.61-1. 24) Est Glomerular > 60 Filtrat mL/min (>60) Rate mL/min Glucose Level 110 mg/dl (70-220) Calcium Level 8.7 mg/dl (8.4-10. 2) Test 07/13/18 11:06 07/13/18 17:18 Bedside 125 83 Glucose mg/dL (70-220) mg/dL (70-220) SETH AVENDANO Jul 13, 2018 23:09
== END 2018-07-13 20:33 | DRG 870 ==
LOC: E/R 14:10 → ICU 16:55 → CANRESERV 20:07 → 6WM 07-04 21:15 → ICU 07-05 21:28 → 6WM 07-07 18:18
PROVIDERS: ADMIT Internal Medicine; ATTEND Internal Medicine
PROC: 5A1955Z Respiratory Ventilation, Greater than 96 Consecutive Hours (ICD-10-PCS; principal; 2018-06-30)
PROC: 06HY33Z Insertion of Infusion Device into Lower Vein, Percutaneous Approach (ICD-10-PCS; 2018-06-30)
PROC: 02H633Z Insertion of Infusion Device into Right Atrium, Percutaneous Approach (ICD-10-PCS; 2018-07-02)
PROC: 30233N1 Transfusion of Nonautologous Red Blood Cells into Peripheral Vein, Percutaneous Approach (ICD-10-PCS; 2018-07-02)
PROC: 0BJ08ZZ Inspection of Tracheobronchial Tree, Via Natural or Artificial Opening Endoscopic (ICD-10-PCS; 2018-07-06)
DX: A41.9 Sepsis, unspecified organism (principal); R65.21 Severe sepsis with septic shock; J18.9 Pneumonia, unspecified organism; J96.21 Acute and chronic respiratory failure with hypoxia; N39.0 Urinary tract infection, site not specified; J98.11 Atelectasis; G93.49 Other encephalopathy; I42.9 Cardiomyopathy, unspecified; Z99.11 Dependence on respirator [ventilator] status; B96.89 Other specified bacterial agents as the cause of diseases classified elsewhere; D64.9 Anemia, unspecified; E66.01 Morbid (severe) obesity due to excess calories; E78.5 Hyperlipidemia, unspecified; E11.649 Type 2 diabetes mellitus with hypoglycemia without coma; G40.909 Epilepsy, unspecified, not intractable, without status epilepticus; I25.10 Atherosclerotic heart disease of native coronary artery without angina pectoris; I11.0 Hypertensive heart disease with heart failure; I50.9 Heart failure, unspecified; R13.10 Dysphagia, unspecified; Z93.0 Tracheostomy status; Z93.1 Gastrostomy status; Z95.5 Presence of coronary angioplasty implant and graft; Z68.38 Body mass index [BMI] 38.0-38.9, adult; Z79.4 Long term (current) use of insulin; Z79.82 Long term (current) use of aspirin
CPT/HCPCS: 36415; 36430; 36569; 36600; 71045; 76937; 80048; 80053; 80202; 81001; 82550; 82553; 82803; 82962; 83036; 83605; 83735; 84100; 84443; 84484; 85014; 85018; 85025; 85610; 85730; 86850; 86900; 86901; 86920; 87040; 87081; 87086; 93005; 93306; 94002; 94003; 96374; 96375; C1769; C9113; J0692; J1630; J1650; J1815; J1940; J2060; J2270; J2543; J2997; J3370; J3475; J3480; J7030; J7040; J7050; P9016; P9612

== ENCOUNTER 2018-11-11 21:01 | Inpatient (IN) | payer MEDICARE, OTHER ==
[~2018-11-11] VITALS: Ht 167.6 cm; Wt 99.2 kg
[~2018-11-11 21:01] MED LIST changes: +ACET325T33 GTB; -ALBU8.5H8 INH; +AMIN30LI GTB; +ASPI-817 GTB; -ASPI81TA52 PO; +ATOR-2 GTB; -BENA40TA56 PO; +BISA10SU75 PR; +CARAS GTB; +CARV3.1260 GTB; -CEPH-443 PO; -CLOP75TA27 PO; +CRAN3875 GTB; -FURO40TA4 PO; +GLUC1VIA6 IJ; +HYDR-3671 GTB; +HYDR-4011 GTB; +LACT1CAP33 GTB; +LANS30CA GTB; -LANT3I SC; +LASS GTB; +LISI-313 GTB; +MAGN400O19 GTB; +MUCO4 NEB; +NA P230E RC; +NPH,100V SQ; +SENN-120 GTB; -TERB250T46 PO; +TYL500 GTB; +VLP250480 GTB
[2018-11-11 21:19] VITALS: Ht 167.6 cm; Wt 99.2 kg
[2018-11-11] MEDS ORDERED: ONDANSETRON 4 MG INJ IV STA (21:19)
[2018-11-11] MEDS ORDERED: morphine 4 MG/ML VIAL IV STA (21:19)
[2018-11-11] MEDS ORDERED: morphine 2 MG INJ IV PRN (23:00)
[2018-11-11] MEDS ORDERED: ONDANSETRON 4 MG INJ IV PRN (23:00)
--- NOTE | 2018-11-11 23:13 | ERD ---
ER Documentation Chief Complaint Chief Complaint BIBA from [facility],R frontal head swelling HPI Patient is a 52-year-old male with diabetes and respiratory failure presents with right-sided head swelling. Please note the history and physical exam is limited secondary to the patient's mental status at this time. The patient was sent today from [facility]. The patient is on trach collar. His primary doctor is Dr. Cortez. I cannot obtain history of physical exam otherwise the patient is nonverbal. ROS All systems reviewed and are negative except as per history of present illness. Medications Home Meds Reported Medications Acetylcysteine* (Mucomyst*) 4 Ml Soln, 3 ML NEB BID, EA 06/30/18 Na Phos,M-B/Na Phos,Di-Ba (Fleet Enema Extra) 230 Ml Enema, 230 ML RC NEEDED, ENEMA 06/30/18 Bisacodyl* (Bisacodyl*) 10 Mg Supp, 10 MG MD Q24H PRN for NEEDED, SUPP 06/30/18 Magnesium Hydroxide* (Milk Of Magnesia*) 400 Mg/5 Ml Oral.susp, 30 ML GTB Q24H for CONSTIPATION, ML 06/30/18 Sennosides* (Senna Lax*) 8.6 Mg Tablet, 2 TAB GTB BID, TAB 06/30/18 Insulin Aspart* (Novolog Insulin Pen*) 100 Unit/Ml Soln, 0 SC .SLIDING SCALE AC, EA IF BS 0-120=0 UNITS,120-150=0 UNIT, 151-200=1 UNIT, 201-250=2 UNIT, 251-300=3 UNIT, 301-350=4 UNIT, 351-400=5 UNIT, ABOVE 400=6 UNIT AND CALL MD. 06/30/18 Glucagon HCl (Glucagon HCl) 1 Mg Vial, 1 MG IJ NEEDED, VIAL IF BS BELOW 60 06/30/18 Insulin NPH Human Isophane (Humulin N) 100 Unit/1 Ml Vial, 28 UNIT SQ Q8H, VIAL 06/30/18 Hydrocodone/Acetaminophen ([place] 5-325 Tablet) 1 Each Tablet, 1 EACH GTB Q6H, TAB NEEDED FOR PAIN 06/30/18 Acetaminophen* (Tylenol*) 500 Mg Tab, 1000 MG GTB Q4H PRN for PAIN 4-6/10, TAB 06/30/18 Acetaminophen* (Tylenol*) 325 Mg Tablet, 650 MG GTB PRN PRN for TRACH TUBE CHANGE, TAB 06/30/18 Acetaminophen* (Tylenol*) 325 Mg Tablet, 650 MG GTB Q4H PRN for MILD PAIN LEVEL 1-3, TAB AND FEVER 100 AND ABOVE 06/30/18 Amino Acids/Protein Hydrolys (PRO-STAT LIQUID) 30 Ml Liquid.pkt, 30 ML GTB DAILY SUGAR FREE 06/30/18 Cran/Vitc/Mannose/Inulin/Brom (Uti-Stat Liquid) 3,875 Mg/30 Ml Liquid, 30 ML GTB DAILY 06/30/18 Hydralazine Hcl* (Hydralazine Hcl*) 25 Mg Tab, 25 MG GTB Q6H, #60 TAB 06/30/18 Furosemide* (Lasix* Liq) 40 Mg/5 Ml Cup, 20 MG GTB DAILY, EA 06/30/18 Carvedilol* (Carvedilol*) 3.125 Mg Tablet, 3.125 MG GTB BID, #60 TAB 06/30/18 Atorvastatin* (Atorvastatin*) 80 Mg Tablet, 80 MG GTB QHS, #30 TAB 06/30/18 Aspirin* (Aspirin* EC) 81 Mg Tablet.dr, 162 MG GTB DAILY, TAB 06/30/18 Valproic Acid* (Valproic Acid* Liq) 250 Mg/5 Ml Syrup, 10 ML GTB Q8H, ML 06/30/18 Sucralfate* (Carafate*) 1 Gm/10 Ml Susp, 1 GM GTB QID, EA 06/30/18 Lisinopril* (Lisinopril*) 5 Mg Tablet, 5 MG GTB DAILY, #30 TAB 06/30/18 Lansoprazole* (Lansoprazole*) 30 Mg Capsule.dr, 30 MG GTB BID, CAP 06/30/18 Lactobacillus Acidophilus (Acidophilus Lactobacillus) 1 Each Capsule, 1 EACH GTB BID, CAP 06/30/18 Allergies Allergies: Coded Allergies: No Known Drug Allergies (Verified Allergy, Mild, 06/30/18) PMhx/Soc History of Surgery: Yes (craniotomy) Anesthesia Reaction: No (UNK) Hx Respiratory Disorders: Yes (tracheostomy, t-tube, no vent) Hx Cardiac Disorders: No Hx Psychiatric Problems: No Hx Miscellaneous Medical Probl: No Smoking Status: Unknown if ever smoked FmHx Unable to obtain Physical Exam Vitals Vital Signs Date Temp Pulse Resp B/P (MAP) Pulse Ox O2 O2 Flow FiO2 Time Delivery Rate 11/11/18 98.0 83 17 138/81 100 Room Air 22:32 (100) 11/11/18 2 22:08 11/11/18 98.0 83 17 142/85 100 21:30 (104) 11/11/18 97.9 84 18 141/78 96 21:19 (99) Physical Exam Const: Chronically ill Head: Progressive right-sided swelling over the parietal area at the site of previous craniotomy Eyes: Normal Conjunctiva ENT: Normal External Ears, Nose and Mouth. Neck: Full range of motion. No meningismus. Resp: Clear to auscultation bilaterally Cardio: Regular rate and rhythm, no murmurs Abd: Soft, non tender, non distended. Normal bowel sounds Skin: No petechiae or rashes Back: No midline or flank tenderness Ext: No cyanosis, or edema Neur: Altered and nonverbal baseline Result Diagram: 11/11/18213911/11/182139 Results 24 hrs Laboratory Tests Test 11/11/18 21:40 White Blood Count 11.2 10^3/ul Red Blood Count 4.45 10^6/ul Hemoglobin 12.3 g/dl Hematocrit 39.8 % Mean Corpuscular Volume 89.4 fl Mean Corpuscular Hemoglobin 27.6 pg Mean Corpuscular Hemoglobin Concent 30.9 g/dl Red Cell Distribution Width 16.6 % Platelet Count 310 10^3/UL Mean Platelet Volume 11.9 fl Immature Granulocytes % 0.400 % Neutrophils % 79.8 % Lymphocytes % 10.8 % Monocytes % 7.8 % Eosinophils % 0.9 % Basophils % 0.3 % Nucleated Red Blood Cells % 0.0 /100WBC Immature Granulocytes # 0.040 10^3/ul Neutrophils # 9.0 10^3/ul Lymphocytes # 1.2 10^3/ul Monocytes # 0.9 10^3/ul Eosinophils # 0.1 10^3/ul Basophils # 0.0 10^3/ul Nucleated Red Blood Cells # 0.0 10^3/ul Prothrombin Time 13.6 Sec Prothrombin Time Ratio 1.1 INR International Normalized Ratio 1.03 Activated Partial Thromboplast Time 31.5 Sec Sodium Level 140 mmol/L Potassium Level 4.0 mmol/L Chloride Level 98 mmol/L Carbon Dioxide Level 36 mmol/L Anion Gap 6 Blood Urea Nitrogen 26 mg/dl Creatinine 0.72 mg/dl Est Glomerular Filtrat Rate mL/min > 60 mL/min Glucose Level 221 mg/dl Calcium Level 9.2 mg/dl Total Bilirubin 0.3 mg/dl Direct Bilirubin 0.00 mg/dl Indirect Bilirubin 0.3 mg/dl Aspartate Amino Transf (AST/SGOT) 21 IU/L Alanine Aminotransferase (ALT/SGPT) 9 IU/L Alkaline Phosphatase 147 IU/L Troponin I < 0.012 ng/ml Total Protein 8.4 g/dl Albumin 3.7 g/dl Globulin 4.70 g/dl Albumin/Globulin Ratio 0.78 Current Medications Medications Dose Sig/Emerson Start Time Status Last (Trade) Ordered Route PRN Stop Time Admin Dose Reason Admin Morphine 4 mg ONCE STAT 11/11/18 DC 11/11/18 Sulfate IV 21:19 21:19 (morphine) 11/11/18 21:20 Ondansetron 4 mg ONCE STAT 11/11/18 DC 11/11/18 HCl (Zofran IV 21:19 21:19 Inj) 11/11/18 21:20 Ondansetron 4 mg Q6H PRN 11/11/18 HCl (Zofran IV NAUSEA 23:00 Inj) AND/OR VOMITING 650 mg Q6H PRN 11/11/18 Acetaminophen PO PAIN 23:00 (Tylenol LEVEL 1-3 OR Liquid) FEVER Morphine 2 mg Q4H PRN 11/11/18 Sulfate IV PAIN 23:00 (morphine) LEVEL 7-10 Famotidine 20 mg Q12 IV 11/12/18 (Pepcid Iv) 09:00 Procedures/MDM CT brain shows large intraparenchymal hemorrhage per radiology. Chest x-ray read by radiology. EKG read by me: Rate/Rhythm: Regular rate and rhythm at a normal rate Intervals: Normal Impression: No evidence of ischemia or arrhythmia Patient is a 52-year-old male presents with right head swelling. CT scan of the brain shows large intraparenchymal hemorrhage at the site of previous craniotomy site. He supposedly had a craniotomy done at [facility] [address] Cortez[address] I spoke with our neurosurgeon on-call Dr. Orona who said that he would consult on the patient if transfer to [facility] was not able to occur. He did not feel that this would be a surgical case. I did call [facility] but unfortunately there are no ICU beds available and they are not able to accept at this time. I spoke with Dr. Wiseman for admission to our intensive care unit. The patient's blood pressure is reasonable and the patient is not on any blood thinning medications. Platelets and PT/INR were normal. Critical Care: Time: 35 minutes excluding all billable procedures. Treatments/Evaluations: Close monitoring and treatment of unstable vital signs, cardiorespiratory, and neurologic status, while maintaining tight balance of fluid, respiratory, and cardiac interventions. Departure Diagnosis: Primary Impression: ICH (intracerebral hemorrhage) Intracerebral hemorrhage etiology: nontraumatic Cerebral hemorrhage location: cerebral hemisphere, unspecified portion Laterality: right Qualified Codes: I61.2 - Nontraumatic intracerebral hemorrhage in hemisphere, unspecified Additional Impression: Swelling Condition: Critical ANDREW NICHOLS MD November 11, 2018 23:13
[2018-11-12] VITALS (21 sets, daily range): BP systolic 126–165; BP diastolic 73–109; PULSE 87–97; RESP 0–30
[2018-11-12] MEDS ORDERED: GLUCOSE GEL 15 GRAM TUBE PO PRN ×2 (03:00)
[2018-11-12] MEDS ORDERED: GLUCAGON 1 MG INJ IM PRN (03:00)
[2018-11-12] MEDS ORDERED: GLUCOSE GEL 15 GRAM TUBE BUCCAL PRN (03:00)
[2018-11-12] MEDS ORDERED: DEXTROSE 50% 50 ML SYRINGE IV PRN ×2 (03:00)
[2018-11-12] MEDS: INSULIN ASPART [NOVOLOG] 3 ML PEN SC SCH ×5 (04:55→21:42)
[2018-11-12] MEDS ORDERED: FAMOTIDINE 20 MG INJ IV SCH (09:00)
[2018-11-12] MEDS: SENNA TAB GTB SCH ×2 (09:30→20:22)
[2018-11-12] MEDS ORDERED: NON-FORMULARY/PATIENT OWN MED (Na Phos,M-B/Na Phos,Di-Ba (Fleet Enema Extra) 230 ML) RC SCH (09:30)
[2018-11-12] MEDS ORDERED: NPH, HUMAN INSULIN ISOPHANE 3ML VIAL SC SCH (09:30)
[2018-11-12] MEDS ORDERED: BISACODYL 10 MG SUPP PR PRN (09:30)
[2018-11-12] MEDS ORDERED: NA PHOSPHATE/BIPHOS 133 ML ENEMA PR PRN (10:00)
[2018-11-12] MEDS: NPH, HUMAN INSULIN ISOPHANE 3ML VIAL SC SCH ×3 (10:00→21:41)
--- NOTE | 2018-11-12 10:30 | CONS ---
DATE OF ADMISSION: 11/11/2018 DATE OF CONSULTATION: 11/12/2018 REQUESTING PHYSICIAN: Dr. Andrew Nichols. INDICATION FOR CONSULTATION: Intracranial hemorrhage. HISTORY OF PRESENT ILLNESS: The patient is a 52-year-old male who was brought to the emergency room from a senior living. The exact indication for the patient being brought in is unclear, but poor, per report, the patient had some noted swelling on the side of his head. The patient had some new swelling in the side of his head. The patient apparently has had a right craniectomy for an unknown reason. This was reportedly performed at [facility] approximately a year ago. There are no records available of the patient's hospital admission, exact date of surgery, surgeon, or indication for surgery. Again secondhand information is given from the caregivers, transferred the patient in but the patient reportedly had not had any significant neurologic change from his baseline. The patient has a chronic tracheostomy and is nonverbal and apparently not interactive baseline, though again his exact neurologic exam is not entirely clear. A CT scan of the head was performed. This shows evidence of the prior right craniectomy with associated extracranial herniation and a large intraparenchymal hemorrhage and measuring 6 cm in the right frontotemporal parietal lobe, mostly in the area that is herniated out of the skull. There is also noted to be some acute bilateral occipital horn intraventricular blood. There is reported moderate ventriculomegaly with minimal sulcal prominence suggesting a central greater than peripheral cerebral volume loss. There is dolichoectasia of the basilar artery. There is reported some trace right midline shift, but this is due to the herniation of the defect. There is dilatation of the right temporal lobe with cystic encephalomalacia of the region. There is also evidence of a left frontal and left temporoparietal occipital and the cortical hypotension, which may represent gliosis from adjacent encephalomalacia. Currently, the patient is nonverbal, noninteractive. According to nurse, he will briefly open his eyes and does move the right upper extremity semi purposefully. PAST MEDICAL HISTORY: Unknown. SOCIAL HISTORY: Unknown. PAST SURGICAL HISTORY: This is a well-appearing craniectomy at [facility], date unknown. FAMILY HISTORY: Unknown. REVIEW OF SYSTEMS: Unable to obtain secondary to patient's neurologic condition. PHYSICAL EXAMINATION: VITAL SIGNS: The patient's temperature was 99.5, pulse 91, respirations 23, blood pressure 151/86, saturating 98% on trach collar. GENERAL: The patient is a middle-aged male lying in the hospital bed in no acute distress. HEAD AND NECK: The patient has a right craniectomy defect that is well healed. There is bulging of the soft tissue through the craniectomy defect, though which is not tense, but is full. There is no evidence of CSF leakage. LUNGS: Clear to auscultation. ABDOMEN: Nontender, nondistended, soft. EXTREMITIES: No clubbing, cyanosis, or edema. NEUROLOGIC: The patient's eyes are closed. He will grimace slightly and apparently intermittently opens them to noxious stimuli and occasionally spontaneously but did not for me. The patient does move his right upper and lower extremity semi purposefully but did not follow commands his left hemiplegia. He had 2+ deep tendon reflexes in the left, 1+ in the right but no clonus, Babinski, or Tigist sign. The patient's pupils are equal, round reactive to light. He did not track with his eyes are forcibly opened. He has left-sided facial droop. Other cranial nerves cannot be assessed secondary to condition. LABORATORY DATA: White count 11.2, hemoglobin 12.3, platelets 310. His coagulation was within normal limits. INR of 1.03, PTT of 31.5. Sodium was 141, BUN and creatinine 29 and 0.7 with a glucose of 190. REVIEW OF RADIOGRAPHIC RESULTS: I reviewed the patient's CT scan of the head as well as radiologist's interpretation as listed in history of present illness. Further records were reviewed as the patient has been hospitalized at the hospital before and was hospitalized in June and has been at [facility] previously. The patient reported does have a past medical history of a chronic tracheostomy, dysphagia with a PEG, coronary artery disease status post a stent placement to the LAD and RCA, has cardiomegaly with ejection fraction of 25% to 30%, hypertension, diabetes, morbid obesity and a chronic encephalopathy. The patient apparently had a hemicraniectomy for subdural hematoma in the past. FAMILY HISTORY: The patient's father at 55 from complications of coronary artery disease, diabetes. Mother of complications from breast cancer. SOCIAL HISTORY: The patient was never a smoker. There is no reported drug use. ASSESSMENT AND PLAN: A 52-year-old male status post intracranial hemorrhage with craniectomy. The patient appears to be neurologically stable based upon his examination reported from his prior admission. The reason for the patient's bleed is unclear, but I suspect that this may be secondary to prior some trauma to the brain that had been herniated outside of the craniectomy. However, this could have been hemorrhagic secondary to hemorrhagic stroke or some other type of lesion. Since his history is unknown. It is not clearly know why he bled. The patient's coagulation panel appears normal and he does not have thrombocytopenia. However, the patient's exact medications are not known. It is unclear if the patient has been taking some type of antiplatelet medication that may predispose him to bleeding. I will order a platelet function assay to better assess perhaps the patient does have some platelet dysfunction that may have contributed to his bleed. Currently, I do not see any indication for any type of operative intervention, specifically related to the intracranial hemorrhage. The patient already has a craniectomy and is decompressed by this. He has some intraventricular blood, which should resolve with time. It is unclear if the patient has hydrocephalus, but this is a possibility, as I would have expected the patient to have a sunken craniectomy at this point being many months distant from his craniectomy. Hydrocephalus without being an acute issue as he again has decompressed there was craniectomy defect, though with the decompression may ultimately be necessary. I believe that time for the blood to resolve would be necessary prior to placement of any type of ventriculoperitoneal shunt. I believe that further history must be obtained as well as speaking to the person who has the patient's power of sports attorney to define the degree of care. It is not clear what the patient's baseline function is and prognosis would be based upon how far out from the decompressive operation the patient is. Depending on his baseline function and prognosis, and what the patient's power of sports attorney would decide as the patient is acceptable quality of life, further intervention may or may not be reasonable. When operations of this nature are performed. There are significant and long lasting sequelae and the patient may often left in a vegetative or with a quality of life that many people would not find acceptable. Therefore, the extent of care that may contribute to allowing someone to remain in this state needs to be decided. If the caregiver would find the patient's potential quality of life after treatment to be acceptable, then he likely will require shunting and a subsequent cranioplasty. This may not be initially performed at this hospitalization as I believe it may be reasonable to allow for the acute bleeding to resolve and find underlying reason for the bleed. Also the surgeon that operating should be contacted to notify him of the patient's condition for the opportunity to continue treatment of this patient. For now the patient should continue observation and repeat CT scan should be performed to assess for any further worsening. Thank you for allowing me to participate in the care of this patient. Dictated By: RAKESH CURTIS MD LG/ROXANA Conf#: [id number] DID#: [id number] CC: PARAS MURILLO MD; ANDREW NICHOLS MD; RAKESH CURTIS MD;*EndCC* MTDD
--- NOTE | 2018-11-12 10:46 | HP ---
DATE OF ADMISSION: 11/11/2018 CHIEF COMPLAINT AND HISTORY OF PRESENT ILLNESS: History obtained from medical record as the patient is nonverbal. The patient is a 52-year-old gentleman well known to me from previous hospital admissi on. The patient has coronary artery disease status post percutaneous coronary intervention, cardiomy opathy with last ejection fraction reported in general in 06/2018 to be 40%. The patient in 2018 suf fered a massive cerebrovascular accident and was taken to [facility]ctomy. The patient could not be weaned off ventilator and underwent tracheostomy and G -tube placement. The patient was initially admitted in [facility] then was sent to [facility]. The patient since his initial stroke has remained nonverbal, although he does have episodes of agitation. The patient continues to have a dense hemiplegia on the left si de. He spontaneously moves his right upper and lower extremities. He opens eyes intermittently, alt evelia has remained nonverbal. He does not even track at baseline. Yesterday at Subacute Unit the elizabeth puentes was thought to be in pain, when his right craniectomy site was palpated. The patient was immed iately sent to [facility] Emergency Room, where he underwent stat CT scan of the head, which revealed acute large intraparenchymal hemorrhage within the right frontotemporal parietal lobe. The re is also moderate acute bilateral occipital horn intraventricular hemorrhage, right-sided hemispher ic craniectomy with extracranial herniation, moderate ventriculomegaly. The patient also was noted t o have glasses and encephalomalacia. Dr. Mena was called. He recommended to transfer the patient to [facility] due to previous surgical intervention; however, [facility] did not h ave an ICU bed and the patient was subsequently admitted at [facility] ICU. The patient was seen by Dr. Mena this morning and has ordered a repeat CT scan. The patient did not have any sei zure activity since admission. No reported vomiting, no reported fever or chills. The patient did h ave a low grade temperature of 99.5 earlier today, except for that reading patient has remained afebr ile. No reported leg edema. No reported abdominal distention. The patient did not have any vomitin g. REVIEW OF SYSTEMS: Limited because of patient's previous stroke. PAST MEDICAL HISTORY: As stated above the patient has history of PCI by Dr. Vincent. The patient daron muro in June 2018 was admitted for urinary tract infection and pneumonia. PAST SURGICAL HISTORY: Craniectomy, tracheostomy and G-tube placement. FAMILY HISTORY: Father of coronary artery disease and diabetes. Mother of breast cancer. SOCIAL HISTORY: No smoking or alcohol abuse. MEDICATIONS: List reviewed. ALLERGIES: NO KNOWN DRUG ALLERGIES. PHYSICAL EXAMINATION: GENERAL: The patient is lethargic, intermittently awakens to stimuli, well-developed, in no distress , currently off vent. VITAL SIGNS: Temperature 99.5, pulse 92, respirations 23, blood pressure 150/86, O2 98% on 5 liter o xygen. HEENT: The patient has bulging on the right craniectomy site. Conjunctivae and lids are normal. No nystagmus. No eye discharge or redness. NECK: Tracheostomy in place, mild secretion. No mass. CHEST: Fairly clear. No use accessory muscles as currently the patient is in sinus rhythm. HEART: S1, S2 normal, no murmur. ABDOMEN: Soft, nontender. G-tube in place. EXTREMITIES: No edema. NEUROLOGIC: The patient is lethargic, noncommunicative. He has dense left hemiplegia. Needs restra ined in the right hand due to agitation. LABORATORY DATA: Done upon admission, WBC 11.2, hemoglobin 12.3, platelet 310. Sodium 141, potassiu m 4.7, BUN 29, creatinine 0.6, glucose 193, calcium 9.3. Chest x-ray, partial lung expansion without focal consolidation. UA was negative for nitrite and leukocyte esterase. IMPRESSION AND PLAN: 1. Intracranial bleed on top of massive cerebrovascular accident in the past. We will discontinue a spirin, which he had been on for his previous cerebrovascular accident and has coronary artery diseas e and percutaneous coronary intervention history. We will wait for Dr. Mena for further recommend ations. The patient is supposed to have a followup CT. 2. Coronary artery disease, status post percutaneous coronary intervention. We will continue Coreg. 3. Ischemic cardiomyopathy. Continue Coreg, lisinopril and Lasix. 4. Diabetes. We will continue NPH and sliding scale insulin. 5. Dysphagia. Continue G-tube feeding. 6. Dyslipidemia. Continue Lipitor. 7. Respiratory failure. Continue trach care and breathing treatment and Mucomyst for secretions. W e will notify Dr. Vincent for cardiology followup and I tried to contact patient's , Beatriz; akosua christopher, I could not get hold of her. I have asked my office staff to try to continue to contact her. The patient's prognosis for any meaningful recovery remains poor even prior to his new intracranial blee d. We will do follow-up CBC. We will hold off on antibiotic at this time. Dictated By: NIA DOMINGO MD AB/NTS Conf#: [id number] DID#: [id number] CC: PARAS MURILLO MD; RAKESH MENA MD;*EndCC*
--- NOTE | 2018-11-12 13:49 | CONS ---
DATE OF ADMISSION: 11/11/2018 DATE OF CONSULTATION: 11/12/2018 TYPE OF CONSULTATION: Cardiology. REASON FOR CONSULTATION: Cardiomyopathy with depressed left ventricular ejection fraction, history of stents. REQUESTING PHYSICIAN: Nia Domingo MD HISTORY OF PRESENT ILLNESS: Mr. Arroyo is a 52-year-old male well known to myself from multiple prior hospital admissions and a primary office patient with history of coronary artery disease, status post prior PTCA, cardiomyopathy with last ejection fraction of approximately 40% in 06/2018, recent intracranial hemorrhage with subsequent chronic encephalopathy and chronic respiratory failure necessitating placement of trach and dysphagia necessitating placement of G-tube, who had been discharged to outpatient followup after he had prolonged stay recently at [place] and then at the [facility], was here to [facility] and was at his chronic care facility when the patient was noted to have a change in his status and was transferred to [facility]. The patient initially upon arrival, temperature was 97.9, blood pressure 141/78, pulse 84, respiratory rate 18, satting 96%. The patient's labs are notable for white blood cell count of 11.2, hemoglobin 12.3, platelet count of 310, sodium of 140, potassium 4.0, creatinine 0.72, BUN of 26, AST 21, ALT 9, troponin negative, INR of 1, UA negative. The patient underwent a chest x-ray that revealed a partial lung expansion without focal consolidation and then a head CT that subsequently revealed acute large intraparenchymal hemorrhage within the right frontotemporal parietal lobes, also moderate acute bilateral occipital horn, interventricular hemorrhage, right-sided consistent with craniectomy with associated extracranial herniation, moderate ventriculomegaly with minimal sulcal prominence suggesting a central greater than peripheral cerebral volume loss or hydrocephalus, left frontal and left temporoparietal occipital subcortical hypoattenuation may represent underlying gliosis with adjacent encephalomalacia. The patient's electrocardiogram revealed normal sinus rhythm, rate of 81 with a right bundle branch block, right axis deviation, secondary repolarization abnormalities: The patient at this time has been admitted to the ICU where he does remain hemodynamically stable, but encephalopathic and nonresponsive. PAST MEDICAL HISTORY: As above in HPI. MEDICATIONS CURRENTLY IN HOSPITAL: 1. Lipitor 80 mg at bedtime. 2. Prevacid 30 mg b.i.d. 3. Sucralfate 1 gram q.i.d. 4. Hydralazine 25 q.8. 5. Mucomyst. 6. Depakene. 7. Insulin. 8. Carvedilol 3.125 mg p.o. b.i.d. 9. Lasix 20 mg daily. 10. Lisinopril 5 mg daily. 11. Milk of Magnesia. 12. Senna. ALLERGIES: NO KNOWN DRUG ALLERGIES. SOCIAL HISTORY: No current tobacco, EtOH or illicit drug use. FAMILY HISTORY: No history of sudden cardiac or early CAD. REVIEW OF SYSTEMS: As above in HPI. CONSTITUTIONAL: No fevers, chills. PULMONARY: No current shortness of breath. CARDIOVASCULAR: Cardiomyopathy, history of congestive heart failure, history of stents. GASTROINTESTINAL: No vomiting. GENITOURINARY: No hematuria. MUSCULOSKELETAL: Degenerative joint disease. PSYCHIATRIC: No documented psych history. NEUROLOGIC: Encephalopathy. PHYSICAL EXAMINATION: VITAL SIGNS: Temperature 99.8, blood pressure 146/81, pulse 93, respiratory rate 25, satting 99%. GENERAL: The patient is encephalopathic and nonresponsive. NECK: Tracheostomy in place. CHEST: Upper airway transmitted rhonchus sounds. HEART: Regular rate and rhythm. Normal S1, S2, I/ systolic murmur, laterally displaced PMI. ABDOMEN: Positive bowel sounds, soft. EXTREMITIES: Trace edema, chronic lower extremity changes, somewhat difficult to palpate distal pulses bilateral posterior tibial, dorsalis pedis. LABORATORIES: As above in HPI with most recent today, sodium 141, potassium 4.7, creatinine 0.7, BUN 29. White blood cell count 11.2, hemoglobin 12.8, platelet count 319. IMAGING STUDIES: As above in HPI. No further imaging studies for my review at this time. ELECTROCARDIOGRAM: As above in HPI. No further electrocardiograms for my review at this time. IMPRESSION: 1. Abnormal electrocardiogram, assess for acute coronary syndrome. 2. Cardiomyopathy with decreased left ventricular ejection fraction. Last known to be 40% 3. Congestive heart failure, systolic, chronic. 4. Hypertension, under reasonable control in the setting of acute hemorrhage. 5. Intracranial hemorrhage. 6. Chronic encephalopathy. 7. Prior craniectomy. 8. History of prior PTCA and stent placement. 9. Anemia. RECOMMENDATIONS: 1. At this time, we would maintain the patient in ICU on close monitoring. 2. The patient is undergoing close neurosurgical evaluation and followup, possible need for further neurosurgical intervention. 3. We would send cardiac enzymes q.6 x2. Rule out any acute coronary syndromes associated with the patient's intracranial hemorrhage. 4. We would continue the patient's current carvedilol and lisinopril as well as hydralazine for now. 5. Continue the patient's statin. 6. Continue the patient's daily Lasix, following volume status closely. 7. We will check serial EKGs and we would reassess patient's ejection fraction with 2D echo. Thank you for allowing me to take part in the care of this patient. I will continue to follow him along very closely with you with further recommendations will be made as the patient progresses through his inpatient hospital clinical course. Dictated By: MAE BLAS/ROXANA Conf#: [id number] DID#: [id number] CC: RAKESH CURTIS MD; PARAS MURILLO MD; NIA DOMINGO MD;*EndCC* MTDD
[2018-11-12] MEDS: SUCRALFATE (100 MG/ML) 10ML CUP GTB SCH ×3 (14:13→20:20)
[2018-11-12] MEDS: MAGNESIUM HYDROXIDE 30ML CUP GTB SCH (14:13)
[2018-11-12] MEDS: VALPROIC ACID LIQUID CUP 250 MG/5 ML CUP GTB SCH ×3 (14:13→21:39)
[2018-11-12] MEDS: LISINOPRIL 5 MG TAB GTB SCH (14:15)
[2018-11-12] MEDS: FUROSEMIDE 20 MG TAB GTB SCH (14:15)
[2018-11-12] MEDS: ACETYLCYSTEINE 20% 4 ML VIAL NEB SCH ×2 (15:00→20:47)
[2018-11-12] MEDS: LANSOPRAZOLE 30 MG CAP GTB SCH (17:19)
--- NOTE | 2018-11-12 18:49 | RADRPT ---
Echocardiogram Report Patient Name: CEDRIC KHANPatient ID: [id number] : 1965 (52y 11m)Study Date: 11/12/2018 1:21:12 PM Gender: MAccession #: [id number] Tech: EyalMelony Avitia [facility] Location: 118 Ref.Physician: MAE VINCENT Height(Cm): BSA: Weight(Kg): Quality: AdequateOrder Physician: MAE VINCENT Account #: Procedures: Echocardiographic Report: Transthoracic echocardiogram with complete 2D, M-Mode, and doppler examination. Indications: Congestive Heart Failure. Measurements: 2D/M Mode Doppler Measurement Value Normal Range Measurement Value Normal Range LVIDd 2D 4.4 [ 4.2 - 5.8 ] cm JASSI Vmax 4.2 [ 2.0 - 4.0 ] cm2 LVIDs 2D 3.0 [ 2.5 - 4.0 ] cm AV Peak Ramon 1.1 [ 100.0 - 170.0 ] cm/sec LVPWd 2D 1.4 [ 0.6 - 1.0 ] cm AV Peak PG 5.0 [ 2.0 - 9.0 ] mmHg IVSd 2D 1.8 [ 0.6 - 1.0 ] cm LVOT Peak Ramon 1.0 [ 70.0 - 110.0 ] cm/sec IVS/LVPW 2D 1.2 ratio LVOT Peak PG 4.0 [ 2.0 - 6.0 ] mmHg AoR Diam 2D 3.2 [ 2.6 - 3.4 ] cm Lat E` Ramon 0.0 [ 10.0 - 15.0 ] cm/sec LA/Ao 2D 1 ratio LA Dimen 2D 4.2 [ 3.0 - 4.0 ] cm LVOT Area 4.9 cm2 Findings: Left Ventricle: Normal left ventricular cavity size. Severe asymmetric septal hypertrophy. Moderate left ventricular systolic dysfunction. Ejection fraction is visually estimated at 30-35 %. Tissue Doppler/Mitral Doppler indices are consistent with impaired relaxation (Stage I diastolic dysfunction). These segments of the LV are hypokinetic mid anterior segment, apical anterior segment, anteroseptum mid segment, apex and apical septum. Right Ventricle: Normal right ventricular size. Normal right ventricular systolic function. Left Atrium: There is mild enlargement of left atrium. Right Atrium: The right atrium is normal in size. Mitral Valve: Normal appearance of the mitral valve. Mild mitral annular calcification. Trace mitral regurgitation. Aortic Valve: Normal appearance of the aortic valve. No significant aortic stenosis or insufficiency. Tricuspid Valve: Normal appearance of the tricuspid valve. Normal right ventricular systolic pressure. There is trace tricuspid regurgitation. Pulmonic Valve: Normal pulmonic valve appearance. Pericardium: Normal pericardium with no significant pericardial effusion. Aorta: Normal aortic root. IVC: Normal size and normal respiratory collapse consistent with normal right atrial pressure. Conclusions: Normal left ventricular cavity size. Severe asymmetric septal hypertrophy. Ejection fraction is visually estimated at 30-35 %. Tissue Doppler/Mitral Doppler indices are consistent with impaired relaxation (Stage I diastolic dysfunction). These segments of the LV are hypokinetic mid anterior segment, apical anterior segment, anteroseptum mid segment, apex and apical septum. There is mild enlargement of left atrium. Normal appearance of the mitral valve. Mild mitral annular calcification. Trace mitral regurgitation. Normal right ventricular systolic pressure. There is trace tricuspid regurgitation. Electronically Signed By: Mae Vincent 2018-11-12 18:48:44 PDT
[2018-11-12] MEDS: ATORVASTATIN 80 MG TAB GTB SCH (20:21)
[2018-11-13] VITALS (21 sets, daily range): BP systolic 115–165; BP diastolic 72–95; PULSE 87–106; RESP 14–37
[2018-11-13] MEDS: INSULIN ASPART [NOVOLOG] 3 ML PEN SC SCH ×6 (03:10→21:36)
[2018-11-13] MEDS: VALPROIC ACID LIQUID CUP 250 MG/5 ML CUP GTB SCH ×3 (05:51→21:27)
[2018-11-13] MEDS: NPH, HUMAN INSULIN ISOPHANE 3ML VIAL SC SCH ×3 (05:53→21:37)
[2018-11-13] MEDS: LANSOPRAZOLE 30 MG CAP GTB SCH ×2 (06:00→17:21)
[2018-11-13] MEDS: ACETYLCYSTEINE 20% 4 ML VIAL NEB SCH ×2 (09:00→20:45)
--- NOTE | 2018-11-13 09:09 | CONS ---
Assessment/Plan Assessment/Plan Assessment/Plan (Daily) right ICH. Etiology is unclear.Could have been local trauma to exophytic brain through craniectomy. Some IVH but mild. The fact that the patient had surgery months ago yet brain is not sunken suggest post-traumatic hydrocephalus though probably not high pressure. I have attempted to contact family and nephrology social worker is working on this. and son reportedly have stopped by bu no contact number given and have not responded to numbers on file. Optimal order and timing of treatments unclear. Believe hemorrhage (etiology is still unclear) should resolve prior to cranioplasty. EVD could be placed at time of cranioplasty then shunt but drainage could lead to hematoma expansion though I believe this is unlikely. Still attempted to get information re: surgery and indications. MRI of the Brain may help evaluate. Appears neurologically stable CHERYL though suggest telemetry. Consultation Date/Type/Reason Admit Date/Time November 11, 2018 at 22:51 Initial Consult Date Date/Time of Note DATE: 11/13/18 TIME: 08:43 24 HR Interval Summary Free Text/Dictation Patient more responsive. Partially opens eyes and seems to follow some simple commands on the right Exam/Review of Systems Exam Vitals Vital Signs Date Temp Pulse Resp B/P (MAP) Pulse Ox O2 O2 Flow FiO2 Time Delivery Rate 11/13/18 99.9 106 18 129/85 98 08:18 (100) 11/13/18 Aerosol 5.0 28 04:45 T Tube Intake and Output 11/12/18 11/12/18 11/13/18 1515:00 23:00 07:00 IntakeIntake Total 180 ml 240 ml 1140 ml OutputOutput Total 345 ml 250 ml 500 ml BalanceBalance -165 ml -10 ml 640 ml Constitutional: alert Head: other (craniectomy defect full, bulging, not tense but not soft) Neurological: other (PERRL, opens eyes partially to name and slight sternal rub. seems to show 2 fingers to commands and wiggle right toes. Left hemiplegia) Results Result Diagram: 11/13/18 0650 11/13/18 0650 Results 24hrs Laboratory Tests Test 11/12/18 14:23 11/12/18 17:17 11/12/18 17:44 11/12/18 21:37 Bedside Glucose 138 194 159 Creatine Kinase 26 Creatine Kinase 2.6 Index Creatinine Kinase MB 0.67 (Mass) Troponin I < 0.012 Test 11/13/18 00:39 11/13/18 03:07 11/13/18 05:49 11/13/18 06:50 Creatine Kinase 29 61 Creatine Kinase 2.8 1.8 Index Creatinine Kinase MB 0.80 1.09 (Mass) Troponin I < 0.012 < 0.012 Bedside Glucose 162 177 White Blood Count 11.5 H Red Blood Count 4.74 Hemoglobin 13.2 L Hematocrit 42.3 Mean Corpuscular 89.2 Volume Mean Corpuscular 27.8 L Hemoglobin Mean Corpuscular 31.2 L Hemoglobin Concent Red Cell 16.5 H Distribution Width Platelet Count 307 Mean Platelet Volume 12.0 H Immature 0.500 H Granulocytes % Neutrophils % 72.9 Lymphocytes % 12.4 L Monocytes % 10.3 Eosinophils % 3.4 Basophils % 0.5 Nucleated Red Blood 0.0 Cells % Immature 0.060 H Granulocytes # Neutrophils # 8.4 H Lymphocytes # 1.4 Monocytes # 1.2 H Eosinophils # 0.4 Basophils # 0.1 Nucleated Red Blood 0.0 Cells # Sodium Level 141 Potassium Level 4.2 Chloride Level 101 Carbon Dioxide Level 32 H Anion Gap 8 Blood Urea Nitrogen 30 H Creatinine 0.66 Est Glomerular > 60 Filtrat Rate mL/min Glucose Level 184 Calcium Level 9.1 Triglycerides Level 108 Cholesterol Level 90 L LDL Cholesterol, 38 Calculated HDL Cholesterol 30 Cholesterol/HDL 3.0 Ratio Test 11/13/18 08:26 Bedside Glucose 184 Medications Medication Current Medications Ondansetron HCl (Zofran Inj) 4 mg Q6H PRN IV NAUSEA AND/OR VOMITING; Start 11/11/18 at 23:00 Acetaminophen (Tylenol Liquid) 650 mg Q6H PRN PO FEVER; Start 11/11/18 at 23:00 Morphine Sulfate (morphine) 2 mg Q4H PRN IV PAIN LEVEL 7-10 Last administered on 11/12/18at 05:26; Admin Dose 2 MG; Start 11/11/18 at 23:00 Insulin Aspart (Novolog Insulin Pen) NOVOLOG *MODERATE* ALGORI... Q4 SC Last administered on 11/13/18at 08:27; Admin Dose 4 UNIT; Start 11/12/18 at 05:00 Miscellaneous Information 1 ea NOTE XX ; Start 11/12/18 at 03:00 Glucose (Glutose) 15 gm Q15M PRN PO DECREASED GLUCOSE; Start 11/12/18 at 03:00 Glucose (Glutose) 22.5 gm Q15M PRN PO DECREASED GLUCOSE; Start 11/12/18 at 03:00 Dextrose (D50w Syringe) 25 ml Q15M PRN IV DECREASED GLUCOSE; Start 11/12/18 at 03:00 Dextrose (D50w Syringe) 50 ml Q15M PRN IV DECREASED GLUCOSE; Start 11/12/18 at 03:00 Glucagon (Glucagen) 1 mg Q15M PRN IM DECREASED GLUCOSE; Start 11/12/18 at 03:00 Glucose (Glutose) 15 gm Q15M PRN BUCCAL DECREASED GLUCOSE; Start 11/12/18 at 03:00 Acetaminophen (Tylenol Tab) 650 mg Q4H PRN GTB MILD PAIN LEVEL 1-3; Start 11/12/18 at 09:30 Acetylcysteine (Mucomyst) 3 ml BID RESP THERAPY NEB Last administered on 11/12/18at 20:47; Admin Dose 3 ML; Start 11/12/18 at 10:00 Atorvastatin Calcium (Lipitor) 80 mg QHS GTB Last administered on 11/12/18 20:21; Admin Dose 80 MG; Start 11/12/18 at 21:00 Bisacodyl (Dulcolax Supp) 10 mg Q24H PRN [place] CONSTIPATION; Start 11/12/18 at 09:30 Carvedilol (Coreg) 3.125 mg BID GTB Last administered on 11/12/18 20:21; Admin Dose 3.125 MG; Start 11/12/18 at 09:30 Furosemide (Lasix) 20 mg DAILY GTB Last administered on 11/12/18at 14:15; Admin Dose 20 MG; Start 11/12/18 at 09:30 Hydralazine HCl (Apresoline) 25 mg Q6 GTB Last administered on 11/13/18 05:51; Admin Dose 25 MG; Start 11/12/18 at 12:00 Lansoprazole (Prevacid) 30 mg BID@0600,1800 GTB Last administered on 11/12/18 17:19; Admin Dose 30 MG; Start 11/12/18 at 18:00 Lisinopril (Zestril) 5 mg DAILY GTB Last administered on 11/12/18 14:15; Admin Dose 5 MG; Start 11/12/18 at 09:30 Magnesium Hydroxide (Milk Of Mag) 30 ml Q24H GTB Last administered on 11/12/18 14:13; Admin Dose 30 ML; Start 11/12/18 at 09:30 Senna (Senokot) 2 tab BID GTB Last administered on 11/12/18 20:22; Admin Dose 2 TAB; Start 11/12/18 at 09:30 Sucralfate (Carafate Susp) 1 gm QID GTB Last administered on 11/12/18 20:20; Admin Dose 1 GM; Start 11/12/18 at 13:00 Valproate Sodium (Depakene Liquid Cup) 500 mg Q8 GTB Last administered on 11/13/18 05:51; Admin Dose 500 MG; Start 11/12/18 at 10:00 Insulin Human NPH (Humulin N) 28 unit Q8 SC Last administered on 11/13/18 05:53; Admin Dose 28 UNIT; Start 11/12/18 at 10:00 Sodium Biphosphate/ Sodium Phosphate (Fleet Enema) 133 ml DAILY PRN [place] CONSTIPATION; Start 11/12/18 at 10:00 RAKESH CURTIS MD November 13, 2018 08:53
[2018-11-13] MEDS: SENNA TAB GTB SCH ×2 (09:41→21:27)
[2018-11-13] MEDS: FUROSEMIDE 20 MG TAB GTB SCH (09:42)
[2018-11-13] MEDS: MAGNESIUM HYDROXIDE 30ML CUP GTB SCH (09:42)
[2018-11-13] MEDS: LISINOPRIL 5 MG TAB GTB SCH (09:42)
[2018-11-13] MEDS: SUCRALFATE (100 MG/ML) 10ML CUP GTB SCH ×4 (09:43→21:27)
--- NOTE | 2018-11-13 12:56 | CONS ---
Assessment/Plan Assessment/Plan Hospital Course (Demo Recall) IMPRESSION: 1. Abnormal electrocardiogram, assess for acute coronary syndrome.-neg trop x 3/EF 30-35% 2. Cardiomyopathy with decreased left ventricular ejection fraction. EF 30-35% by echo this admit 3. Congestive heart failure, systolic, chronic. 4. Hypertension, under reasonable control in the setting of acute hemorrhage. 5. Intracranial hemorrhage. 6. Chronic encephalopathy. 7. Prior craniectomy. 8. History of prior PTCA and stent placement. 9. Anemia. Recc: -ICU -continue hydralazine/JESSA/coreg with possible need for increase to ACEI afterload reduction -Continue statin -ongoing nRSG eval Consultation Date/Type/Reason Admit Date/Time November 11, 2018 at 22:51 Initial Consult Date 11/12/18 Type of Consult Cardiology Reason for Consultation cardiomyopathy Requesting Provider: NIA DOMINGO MD Date/Time of Note DATE: 11/13/18 TIME: 12:46 Exam/Review of Systems Vital Signs Vitals Vital Signs Date Temp Pulse Resp B/P (MAP) Pulse Ox O2 O2 Flow FiO2 Time Delivery Rate 11/13/18 97 14 145/86 100 12:30 (105) 11/13/18 100.9 Trach 5.0 12:15 Collar 11/13/18 28 10:21 Intake and Output 11/12/18 11/12/18 11/13/18 1515:00 23:00 07:00 IntakeIntake Total 180 ml 240 ml 1140 ml OutputOutput Total 345 ml 250 ml 500 ml BalanceBalance -165 ml -10 ml 640 ml Exam Exam Review of Systems: CONSTITUTIONAL: No fevers, chills. PULMONARY: No sob CARDIOVASCULAR: No chest pain/palpitations GASTROINTESTINAL: No nausea/vomiting. GENITOURINARY: No hematuria/dysuria. MUSCULOSKELETAL: No myagias/arthalgias. PSYCHIATRIC: The patient denies depression. NEUROLOGIC: encephalopathic Constitutional: other (encephalopathic) Psych: no complaints Head: normocephalic ENMT: mucosa pink and moist Neck: supple, jvd (9 cm water) Respiratory: diminished breath sounds (at bases/B) Cardiovascular: regular rate and rhythm Gastrointestinal: soft, non-tender Musculoskeletal: muscle tone (normal) Extremities: other (none) Neurological: other (Nofocal def) Labs Result Diagram: 11/13/18 0650 11/13/18 0650 Results 24hrs Laboratory Tests Test 11/12/18 14:23 11/12/18 17:17 11/12/18 17:44 11/12/18 21:37 Bedside Glucose 138 194 159 Creatine Kinase 26 Creatine Kinase 2.6 Index Creatinine Kinase MB 0.67 (Mass) Troponin I < 0.012 Test 11/13/18 00:39 11/13/18 03:07 11/13/18 05:49 11/13/18 06:50 Creatine Kinase 29 61 Creatine Kinase 2.8 1.8 Index Creatinine Kinase MB 0.80 1.09 (Mass) Troponin I < 0.012 < 0.012 Bedside Glucose 162 177 White Blood Count 11.5 H Red Blood Count 4.74 Hemoglobin 13.2 L Hematocrit 42.3 Mean Corpuscular 89.2 Volume Mean Corpuscular 27.8 L Hemoglobin Mean Corpuscular 31.2 L Hemoglobin Concent Red Cell 16.5 H Distribution Width Platelet Count 307 Mean Platelet Volume 12.0 H Immature 0.500 H Granulocytes % Neutrophils % 72.9 Lymphocytes % 12.4 L Monocytes % 10.3 Eosinophils % 3.4 Basophils % 0.5 Nucleated Red Blood 0.0 Cells % Immature 0.060 H Granulocytes # Neutrophils # 8.4 H Lymphocytes # 1.4 Monocytes # 1.2 H Eosinophils # 0.4 Basophils # 0.1 Nucleated Red Blood 0.0 Cells # Sodium Level 141 Potassium Level 4.2 Chloride Level 101 Carbon Dioxide Level 32 H Anion Gap 8 Blood Urea Nitrogen 30 H Creatinine 0.66 Est Glomerular > 60 Filtrat Rate mL/min Glucose Level 184 Calcium Level 9.1 Triglycerides Level 108 Cholesterol Level 90 L LDL Cholesterol, 38 Calculated HDL Cholesterol 30 Cholesterol/HDL 3.0 Ratio Test 11/13/18 08:26 11/13/18 12:19 Bedside Glucose 184 202 Medications Medications Current Medications Ondansetron HCl (Zofran Inj) 4 mg Q6H PRN IV NAUSEA AND/OR VOMITING; Start 11/11/18 at 23:00 Acetaminophen (Tylenol Liquid) 650 mg Q6H PRN PO FEVER; Start 11/11/18 at 23:00 Morphine Sulfate (morphine) 2 mg Q4H PRN IV PAIN LEVEL 7-10 Last administered on 11/12/18at 05:26; Admin Dose 2 MG; Start 11/11/18 at 23:00 Insulin Aspart (Novolog Insulin Pen) NOVOLOG *MODERATE* ALGORI... Q4 SC Last administered on 11/13/18 12:21; Admin Dose 4 UNIT; Start 11/12/18 at 05:00 Miscellaneous Information 1 ea NOTE XX ; Start 11/12/18 at 03:00 Glucose (Glutose) 15 gm Q15M PRN PO DECREASED GLUCOSE; Start 11/12/18 at 03:00 Glucose (Glutose) 22.5 gm Q15M PRN PO DECREASED GLUCOSE; Start 11/12/18 at 03:00 Dextrose (D50w Syringe) 25 ml Q15M PRN IV DECREASED GLUCOSE; Start 11/12/18 at 03:00 Dextrose (D50w Syringe) 50 ml Q15M PRN IV DECREASED GLUCOSE; Start 11/12/18 at 03:00 Glucagon (Glucagen) 1 mg Q15M PRN IM DECREASED GLUCOSE; Start 11/12/18 at 03:00 Glucose (Glutose) 15 gm Q15M PRN BUCCAL DECREASED GLUCOSE; Start 11/12/18 at 03:00 Acetaminophen (Tylenol Tab) 650 mg Q4H PRN GTB MILD PAIN LEVEL 1-3; Start 11/12/18 at 09:30 Acetylcysteine (Mucomyst) 3 ml BID RESP THERAPY NEB Last administered on 11/12/18at 20:47; Admin Dose 3 ML; Start 11/12/18 at 10:00 Atorvastatin Calcium (Lipitor) 80 mg QHS GTB Last administered on 11/12/18at 20:21; Admin Dose 80 MG; Start 11/12/18 at 21:00 Bisacodyl (Dulcolax Supp) 10 mg Q24H PRN [place] CONSTIPATION; Start 11/12/18 at 09:30 Carvedilol (Coreg) 3.125 mg BID GTB Last administered on 11/13/18 09:42; Admin Dose 3.125 MG; Start 11/12/18 at 09:30 Furosemide (Lasix) 20 mg DAILY GTB Last administered on 11/13/18at 09:42; Admin Dose 20 MG; Start 11/12/18 at 09:30 Hydralazine HCl (Apresoline) 25 mg Q6 GTB Last administered on 11/13/18at 12:27; Admin Dose 25 MG; Start 11/12/18 at 12:00 Lansoprazole (Prevacid) 30 mg BID@0600,1800 GTB Last administered on 11/12/18 17:19; Admin Dose 30 MG; Start 11/12/18 at 18:00 Lisinopril (Zestril) 5 mg DAILY GTB Last administered on 11/13/18 09:42; Admin Dose 5 MG; Start 11/12/18 at 09:30 Magnesium Hydroxide (Milk Of Mag) 30 ml Q24H GTB Last administered on 11/13/18 09:42; Admin Dose 30 ML; Start 11/12/18 at 09:30 Senna (Senokot) 2 tab BID GTB Last administered on 11/13/18 09:41; Admin Dose 2 TAB; Start 11/12/18 at 09:30 Sucralfate (Carafate Susp) 1 gm QID GTB Last administered on 11/13/18 12:27; Admin Dose 1 GM; Start 11/12/18 at 13:00 Valproate Sodium (Depakene Liquid Cup) 500 mg Q8 GTB Last administered on 11/13/18 05:51; Admin Dose 500 MG; Start 11/12/18 at 10:00 Insulin Human NPH (Humulin N) 28 unit Q8 SC Last administered on 11/13/18 05:53; Admin Dose 28 UNIT; Start 11/12/18 at 10:00 Sodium Biphosphate/ Sodium Phosphate (Fleet Enema) 133 ml DAILY PRN [place] CONSTIPATION; Start 11/12/18 at 10:00 MAE ROSALES November 13, 2018 12:56
[2018-11-13] MEDS: ACETAMINOPHEN 325 MG TAB GTB PRN (15:58)
--- NOTE | 2018-11-13 16:25 | PN ---
Date/Time of Note Date/Time of Note DATE: 11/13/18 TIME: 16:25 Assessment/Plan VTE Prophylaxis [place] [facility] [place]: 3 [place]CD applied [place] [facility] [place] SCD contraindicated: other Pharmacological prophylaxis: other Pharm contraindication: other Lines/Catheters IV [facility]ter Type (from [facility]): Saline Lock Urinary Cath still in place: Yes Reason Cath still needed: urinary retention Assessment/Plan Assessment/Plan - Intracranial bleed on top of massive cerebrovascular accident in the past. - aspirin dcd - per neurosx - ICU care - Coronary artery disease, status post percutaneous coronary intervention. We will continue Coreg. - Ischemic cardiomyopathy with decreased left ventricular ejection fraction. EF 30-35% by echo this admit - per cardio - Continue Coreg, lisinopril and Lasix. - Tachycardia - Diabetes. - continue NPH and sliding scale insulin. - Dysphagia. Continue G-tube feeding. - Dyslipidemia. Continue Lipitor. - Respiratory failure. - Continue trach care and breathing treatment and Mucomyst for secretions. - Hx cerebrovascular accident - Congestive heart failure, systolic, chronic. - Hypertension, under reasonable control in the setting of acute hemorrhage. - Chronic encephalopathy. - Prior craniectomy. - Anemia. We will hold off on antibiotic at this time. Total critical care time spent 45 mins. Patient seen in collaboration with Dr Cortez. dw staff Result Diagram: 11/13/18 0650 11/13/18 0650 Results 24hrs Laboratory Tests Test 11/12/18 17:17 11/12/18 17:44 11/12/18 21:37 11/13/18 00:39 Bedside Glucose 194 159 Creatine Kinase 26 29 Creatine Kinase 2.6 2.8 Index Creatinine Kinase MB 0.67 0.80 (Mass) Troponin I < 0.012 < 0.012 Test 11/13/18 03:07 11/13/18 05:49 11/13/18 06:50 11/13/18 08:26 Bedside Glucose 162 177 184 White Blood Count 11.5 H Red Blood Count 4.74 Hemoglobin 13.2 L Hematocrit 42.3 Mean Corpuscular 89.2 Volume Mean Corpuscular 27.8 L Hemoglobin Mean Corpuscular 31.2 L Hemoglobin Concent Red Cell 16.5 H Distribution Width Platelet Count 307 Mean Platelet Volume 12.0 H Immature 0.500 H Granulocytes % Neutrophils % 72.9 Lymphocytes % 12.4 L Monocytes % 10.3 Eosinophils % 3.4 Basophils % 0.5 Nucleated Red Blood 0.0 Cells % Immature 0.060 H Granulocytes # Neutrophils # 8.4 H Lymphocytes # 1.4 Monocytes # 1.2 H Eosinophils # 0.4 Basophils # 0.1 Nucleated Red Blood 0.0 Cells # Sodium Level 141 Potassium Level 4.2 Chloride Level 101 Carbon Dioxide Level 32 H Anion Gap 8 Blood Urea Nitrogen 30 H Creatinine 0.66 Est Glomerular > 60 Filtrat Rate mL/min Glucose Level 184 Calcium Level 9.1 Creatine Kinase 61 Creatine Kinase 1.8 Index Creatinine Kinase MB 1.09 (Mass) Troponin I < 0.012 Triglycerides Level 108 Cholesterol Level 90 L LDL Cholesterol, 38 Calculated HDL Cholesterol 30 Cholesterol/HDL 3.0 Ratio Test 11/13/18 12:19 11/13/18 13:31 Bedside Glucose 202 209 Subjective 24 Hr Interval Summary Free Text/Dictation nad comfortable on vent afebrile dw staff Subjective hx not possible: pt non-verbal Constitutional: requiring IVF, requiring O2 Exam/Review of Systems Exam Vitals Vital Signs Date Temp Pulse Resp B/P (MAP) Pulse Ox O2 O2 Flow FiO2 Time Delivery Rate 11/13/18 100.8 104 36 136/87 99 Trach 16:00 (103) Collar 11/13/18 5.0 12:15 11/13/18 28 10:21 Intake and Output 11/12/18 11/12/18 11/13/18 1515:00 23:00 07:00 IntakeIntake Total 180 ml 240 ml 1140 ml OutputOutput Total 345 ml 250 ml 500 ml BalanceBalance -165 ml -10 ml 640 ml Constitutional: non-verbal, frail Psych: nl mood/affect Head: other (sp craniotomy) ENMT: nl external ears & nose Neck: other Respiratory: diminished breath sounds Cardiovascular: nl pulses, other (s1s2) Gastrointestinal: soft Musculoskeletal: muscle weakness Results Results 24hrs Laboratory Tests Test 11/12/18 17:17 11/12/18 17:44 11/12/18 21:37 11/13/18 00:39 Bedside Glucose 194 159 Creatine Kinase 26 29 Creatine Kinase 2.6 2.8 Index Creatinine Kinase MB 0.67 0.80 (Mass) Troponin I < 0.012 < 0.012 Test 11/13/18 03:07 11/13/18 05:49 11/13/18 06:50 11/13/18 08:26 Bedside Glucose 162 177 184 White Blood Count 11.5 H Red Blood Count 4.74 Hemoglobin 13.2 L Hematocrit 42.3 Mean Corpuscular 89.2 Volume Mean Corpuscular 27.8 L Hemoglobin Mean Corpuscular 31.2 L Hemoglobin Concent Red Cell 16.5 H Distribution Width Platelet Count 307 Mean Platelet Volume 12.0 H Immature 0.500 H Granulocytes % Neutrophils % 72.9 Lymphocytes % 12.4 L Monocytes % 10.3 Eosinophils % 3.4 Basophils % 0.5 Nucleated Red Blood 0.0 Cells % Immature 0.060 H Granulocytes # Neutrophils # 8.4 H Lymphocytes # 1.4 Monocytes # 1.2 H Eosinophils # 0.4 Basophils # 0.1 Nucleated Red Blood 0.0 Cells # Sodium Level 141 Potassium Level 4.2 Chloride Level 101 Carbon Dioxide Level 32 H Anion Gap 8 Blood Urea Nitrogen 30 H Creatinine 0.66 Est Glomerular > 60 Filtrat Rate mL/min Glucose Level 184 Calcium Level 9.1 Creatine Kinase 61 Creatine Kinase 1.8 Index Creatinine Kinase MB 1.09 (Mass) Troponin I < 0.012 Triglycerides Level 108 Cholesterol Level 90 L LDL Cholesterol, 38 Calculated HDL Cholesterol 30 Cholesterol/HDL 3.0 Ratio Test 11/13/18 12:19 11/13/18 13:31 Bedside Glucose 202 209 Medications Medication Current Medications Ondansetron HCl (Zofran Inj) 4 mg Q6H PRN IV NAUSEA AND/OR VOMITING; Start 11/11/18 at 23:00 Acetaminophen (Tylenol Liquid) 650 mg Q6H PRN PO FEVER; Start 11/11/18 at 23:00 Morphine Sulfate (morphine) 2 mg Q4H PRN IV PAIN LEVEL 7-10 Last administered on 11/12/18at 05:26; Admin Dose 2 MG; Start 11/11/18 at 23:00 Insulin Aspart (Novolog Insulin Pen) NOVOLOG *MODERATE* ALGORI... Q4 SC Last administered on 11/13/18at 12:21; Admin Dose 4 UNIT; Start 11/12/18 at 05:00 Miscellaneous Information 1 ea NOTE XX ; Start 11/12/18 at 03:00 Glucose (Glutose) 15 gm Q15M PRN PO DECREASED GLUCOSE; Start 11/12/18 at 03:00 Glucose (Glutose) 22.5 gm Q15M PRN PO DECREASED GLUCOSE; Start 11/12/18 at 03:00 Dextrose (D50w Syringe) 25 ml Q15M PRN IV DECREASED GLUCOSE; Start 11/12/18 at 03:00 Dextrose (D50w Syringe) 50 ml Q15M PRN IV DECREASED GLUCOSE; Start 11/12/18 at 03:00 Glucagon (Glucagen) 1 mg Q15M PRN IM DECREASED GLUCOSE; Start 11/12/18 at 03:00 Glucose (Glutose) 15 gm Q15M PRN BUCCAL DECREASED GLUCOSE; Start 11/12/18 at 03:00 Acetaminophen (Tylenol Tab) 650 mg Q4H PRN GTB MILD PAIN LEVEL 1-3 Last a dministered on 11/13/18 15:58; Admin Dose 650 MG; Start 11/12/18 at 09:30 Acetylcysteine (Mucomyst) 3 ml BID RESP THERAPY NEB Last administered on 11/12/18 20:47; Admin Dose 3 ML; Start 11/12/18 at 10:00 Atorvastatin Calcium (Lipitor) 80 mg QHS GTB Last administered on 11/12/18 20:21; Admin Dose 80 MG; Start 11/12/18 at 21:00 Bisacodyl (Dulcolax Supp) 10 mg Q24H PRN [place] CONSTIPATION; Start 11/12/18 at 09:30 Carvedilol (Coreg) 3.125 mg BID GTB Last administered on 11/13/18 09:42; Admin Dose 3.125 MG; Start 11/12/18 at 09:30 Furosemide (Lasix) 20 mg DAILY GTB Last administered on 11/13/18 09:42; Admin Dose 20 MG; Start 11/12/18 at 09:30 Hydralazine HCl (Apresoline) 25 mg Q6 GTB Last administered on 11/13/18 12:27; Admin Dose 25 MG; Start 11/12/18 at 12:00 Lansoprazole (Prevacid) 30 mg BID@0600,1800 GTB Last administered on 11/12/18 17:19; Admin Dose 30 MG; Start 11/12/18 at 18:00 Magnesium Hydroxide (Milk Of Mag) 30 ml Q24H GTB Last administered on 11/13/18 09:42; Admin Dose 30 ML; Start 11/12/18 at 09:30 Senna (Senokot) 2 tab BID GTB Last administered on 11/13/18 09:41; Admin Dose 2 TAB; Start 11/12/18 at 09:30 Sucralfate (Carafate Susp) 1 gm QID GTB Last administered on 11/13/18at 12:27; Admin Dose 1 GM; Start 11/12/18 at 13:00 Valproate Sodium (Depakene Liquid Cup) 500 mg Q8 GTB Last administered on 11/13/18at 13:29; Admin Dose 500 MG; Start 11/12/18 at 10:00 Insulin Human NPH (Humulin N) 28 unit Q8 SC Last administered on 11/13/18 13:33; Admin Dose 28 UNIT; Start 11/12/18 at 10:00 Sodium Biphosphate/ Sodium Phosphate (Fleet Enema) 133 ml DAILY PRN [place] CONSTIPATION; Start 11/12/18 at 10:00 Lisinopril (Zestril) 10 mg DAILY GTB ; Start 11/14/18 at 09:00 REGINA BUI November 13, 2018 16:25
[2018-11-13] MEDS: ALBUTEROL/IPRATROPIUM (NEB) 3 ML AMP HHN PRN (20:45)
[2018-11-13] MEDS: ATORVASTATIN 80 MG TAB GTB SCH (21:27)
[2018-11-14] VITALS (24 sets, daily range): BP systolic 87–141; BP diastolic 61–91; PULSE 94–120; RESP 16–42
[2018-11-14] MEDS: ACETAMINOPHEN 325 MG TAB GTB PRN (00:39)
[2018-11-14] MEDS: INSULIN ASPART [NOVOLOG] 3 ML PEN SC SCH ×6 (00:44→20:57)
[2018-11-14] MEDS: VALPROIC ACID LIQUID CUP 250 MG/5 ML CUP GTB SCH ×3 (05:35→21:12)
[2018-11-14] MEDS: LANSOPRAZOLE 30 MG CAP GTB SCH ×2 (05:43→17:27)
[2018-11-14] MEDS: NPH, HUMAN INSULIN ISOPHANE 3ML VIAL SC SCH ×3 (05:43→21:11)
--- NOTE | 2018-11-14 08:00 | CONS ---
Assessment/Plan Assessment/Plan Assessment/Plan (Daily) s/p ICH Neurologically unchanged for now but will likely need shunt. Still awaiting SW and communication with power of estate planning attorney to discuss goals fo care, obtain consent and obtain additional info. As of yet I have not been able to speak with any family member. Awaiting MRI Brain. Patient also has a fever with sig. sputum. Fever w/u pending but no abx as of yet. May require EVD rather shunt if infection present until treated. Patient to stay in ICU. Consultation Date/Type/Reason Admit Date/Time November 11, 2018 at 22:51 Initial Consult Date Requesting Provider: NIA DOMINGO MD Date/Time of Note DATE: 11/14/18 TIME: 07:53 24 HR Interval Summary Free Text/Dictation Patient remains on trach collar. Unchanged exam from yesterday. Exam/Review of Systems Exam Vitals Vital Signs Date Temp Pulse Resp B/P (MAP) Pulse Ox O2 O2 Flow FiO2 Time Delivery Rate 11/14/18 108 34 134/88 97 Trach 06:00 (103) Collar 11/14/18 5.0 28 05:37 11/14/18 101.7 04:00 Intake and Output 11/13/18 11/13/18 11/14/18 1414:59 22:59 06:59 IntakeIntake Total 120 ml 670 ml 560 ml OutputOutput Total 350 ml 280 ml 320 ml BalanceBalance -230 ml 390 ml 240 ml Head: other (crainectomy defect remain full though not tense) Neurological: other (PERRL, moves rigth U/LE purposefully and will follow simple commands intermittently. Minimally opens left eye to name and noxious stim.) Results Result Diagram: 11/13/18 0650 11/13/18 0650 Results 24hrs Laboratory Tests Test 11/13/18 08:26 11/13/18 12:19 11/13/18 13:31 11/13/18 17:32 Bedside Glucose 184 202 209 177 Test 11/13/18 21:33 11/14/18 00:40 11/14/18 05:34 Bedside Glucose 166 161 172 Medications Medication Current Medications Ondansetron HCl (Zofran Inj) 4 mg Q6H PRN IV NAUSEA AND/OR VOMITING; Start 11/11/18 at 23:00 Acetaminophen (Tylenol Liquid) 650 mg Q6H PRN PO FEVER; Start 11/11/18 at 23:00 Morphine Sulfate (morphine) 2 mg Q4H PRN IV PAIN LEVEL 7-10 Last administered on 11/12/18at 05:26; Admin Dose 2 MG; Start 11/11/18 at 23:00 Insulin Aspart (Novolog Insulin Pen) NOVOLOG *MODERATE* ALGORI... Q4 SC Last administered on 11/14/18at 05:37; Admin Dose 2 UNIT; Start 11/12/18 at 05:00 Miscellaneous Information 1 ea NOTE XX ; Start 11/12/18 at 03:00 Glucose (Glutose) 15 gm Q15M PRN PO DECREASED GLUCOSE; Start 11/12/18 at 03:00 Glucose (Glutose) 22.5 gm Q15M PRN PO DECREASED GLUCOSE; Start 11/12/18 at 03:00 Dextrose (D50w Syringe) 25 ml Q15M PRN IV DECREASED GLUCOSE; Start 11/12/18 at 03:00 Dextrose (D50w Syringe) 50 ml Q15M PRN IV DECREASED GLUCOSE; Start 11/12/18 at 03:00 Glucagon (Glucagen) 1 mg Q15M PRN IM DECREASED GLUCOSE; Start 11/12/18 at 03:00 Glucose (Glutose) 15 gm Q15M PRN BUCCAL DECREASED GLUCOSE; Start 11/12/18 at 03:00 Acetaminophen (Tylenol Tab) 650 mg Q4H PRN GTB MILD PAIN LEVEL 1-3 Last admini stered on 11/14/18at 00:39; Admin Dose 650 MG; Start 11/12/18 at 09:30 Acetylcysteine (Mucomyst) 3 ml BID RESP THERAPY NEB Last administered on 11/13/18at 20:45; Admin Dose 3 ML; Start 11/12/18 at 10:00 Atorvastatin Calcium (Lipitor) 80 mg QHS GTB Last administered on 11/13/18at 21:27; Admin Dose 80 MG; Start 11/12/18 at 21:00 Bisacodyl (Dulcolax Supp) 10 mg Q24H PRN [place] CONSTIPATION; Start 11/12/18 at 09:30 Carvedilol (Coreg) 3.125 mg BID GTB Last administered on 11/13/18at 21:27; Admin Dose 3.125 MG; Start 11/12/18 at 09:30 Furosemide (Lasix) 20 mg DAILY GTB Last administered on 11/13/18 09:42; Admin Dose 20 MG; Start 11/12/18 at 09:30 Hydralazine HCl (Apresoline) 25 mg Q6 GTB Last administered on 11/14/18 05:35; Admin Dose 25 MG; Start 11/12/18 at 12:00 Lansoprazole (Prevacid) 30 mg BID@0600,1800 GTB Last administered on 11/14/18 05:43; Admin Dose 30 MG; Start 11/12/18 at 18:00 Magnesium Hydroxide (Milk Of Mag) 30 ml Q24H GTB Last administered on 11/13/18 09:42; Admin Dose 30 ML; Start 11/12/18 at 09:30 Senna (Senokot) 2 tab BID GTB Last administered on 11/13/18 21:27; Admin Dose 2 TAB; Start 11/12/18 at 09:30 Sucralfate (Carafate Susp) 1 gm QID GTB Last administered on 11/13/18 21:27; Admin Dose 1 GM; Start 11/12/18 at 13:00 Valproate Sodium (Depakene Liquid Cup) 500 mg Q8 GTB Last administered on 11/14/18 05:35; Admin Dose 500 MG; Start 11/12/18 at 10:00 Insulin Human NPH (Humulin N) 28 unit Q8 SC Last administered on 11/14/18 05:43; Admin Dose 28 UNIT; Start 11/12/18 at 10:00 Sodium Biphosphate/ Sodium Phosphate (Fleet Enema) 133 ml DAILY PRN [place] CONST IPATION; Start 11/12/18 at 10:00 Lisinopril (Zestril) 10 mg DAILY GTB ; Start 11/14/18 at 09:00 Albuterol/ Ipratropium (Duoneb) 3 ml Q6H RESP THERAPY PRN HHN SHORTNESS OF BREATH Last administered on 11/13/18 20:45; Admin Dose 3 ML; Start 11/13/18 at 21:00 RAKESH CURTIS MD November 14, 2018 08:00
[2018-11-14] MEDS: ACETYLCYSTEINE 20% 4 ML VIAL NEB SCH ×2 (08:22→20:09)
[2018-11-14] MEDS: ALBUTEROL/IPRATROPIUM (NEB) 3 ML AMP HHN PRN ×2 (08:23→20:09)
[2018-11-14] MEDS: SENNA TAB GTB SCH ×2 (09:14→20:54)
[2018-11-14] MEDS: SUCRALFATE (100 MG/ML) 10ML CUP GTB SCH ×4 (09:14→20:53)
[2018-11-14] MEDS: MAGNESIUM HYDROXIDE 30ML CUP GTB SCH (09:14)
[2018-11-14] MEDS: FUROSEMIDE 20 MG TAB GTB SCH (09:15)
[2018-11-14] MEDS: LISINOPRIL 5 MG TAB GTB SCH (09:16)
--- NOTE | 2018-11-14 09:50 | CONS ---
Assessment/Plan Assessment/Plan Assessment/Plan (Daily) Assessment and recommendations; next 1. Patient admitted with recurrent new intra cerebral hemorrhage. 2. History of chronic respiratory failure, maintained on T-piece. 3. History of seizure disorder, hypertension and diabetes. 4. History of CAD. Continue current supportive care. Obtain ABG. Prognosis remains very poor. Further recommendations once ABG is performed. Consultation Date/Type/Reason Admit Date/Time November 11, 2018 at 22:51 Date of Consultation: November 14, 2018 Type of Consult Pulmonary/critical care Patient is a 52-year-old male who with a history of chronic encephalopathy admitted with worsening altered mental status from skilled nursing. CT imaging of the brain showing acute intraparenchymal cerebral hemorrhage. Patient however has remained hemodynamically stable. Because of advanced encephalopathy patient was unable to give any history by himself whatsoever. Patient did not appear to be in any distress. Doing fairly well on T-piece via tracheostomy. Past medical history; 1. History of brain hemorrhage with right parietal craniotomy. 2. Chronic respiratory failure, patient maintained on T-piece now. 3. Seizure disorder. 4. CAD, status post PTCA in the past. 5. History of hypertension. 6. Diabetes. Medications; reviewed. Allergies; none. Social history, family history not available. Occupational history; patient is on disability now. Review of systems; unable to be obtained. General exam; middle-aged male, appears overweight, on T-piece via tracheostomy. Unresponsive. Currently in no distress. Date/Time of Note DATE: 11/14/18 TIME: 09:45 Past Medical History Home Meds Reported Medications Acetylcysteine* (Mucomyst*) 4 Ml Soln, 3 ML NEB BID, EA 06/30/18 Na Phos,M-B/Na Phos,Di-Ba (Fleet Enema Extra) 230 Ml Enema, 230 ML RC NEEDED, ENEMA 06/30/18 Bisacodyl* (Bisacodyl*) 10 Mg Supp, 10 MG MO Q24H PRN for NEEDED, SUPP 06/30/18 Magnesium Hydroxide* (Milk Of Magnesia*) 400 Mg/5 Ml Oral.susp, 30 ML GTB Q24H for CONSTIPATION, ML 06/30/18 Sennosides* (Senna Lax*) 8.6 Mg Tablet, 2 TAB GTB BID, TAB 06/30/18 Insulin Aspart* (Novolog Insulin Pen*) 100 Unit/Ml Soln, 0 SC .SLIDING SCALE AC, EA IF BS 0-120=0 UNITS,120-150=0 UNIT, 151-200=1 UNIT, 201-250=2 UNIT, 251-300=3 UNIT, 301-350=4 UNIT, 351-400=5 UNIT, ABOVE 400=6 UNIT AND CALL MD. 06/30/18 Glucagon HCl (Glucagon HCl) 1 Mg Vial, 1 MG IJ NEEDED, VIAL IF BS BELOW 60 06/30/18 Insulin NPH Human Isophane (Humulin N) 100 Unit/1 Ml Vial, 28 UNIT SQ Q8H, VIAL 06/30/18 Hydrocodone/Acetaminophen ([place] 5-325 Tablet) 1 Each Tablet, 1 EACH GTB Q6H, TAB NEEDED FOR PAIN 06/30/18 Acetaminophen* (Tylenol*) 500 Mg Tab, 1000 MG GTB Q4H PRN for PAIN 4-6/10, TAB 06/30/18 Acetaminophen* (Tylenol*) 325 Mg Tablet, 650 MG GTB PRN PRN for TRACH TUBE CHANGE, TAB 06/30/18 Acetaminophen* (Tylenol*) 325 Mg Tablet, 650 MG GTB Q4H PRN for MILD PAIN LEVEL 1-3, TAB AND FEVER 100 AND ABOVE 06/30/18 Amino Acids/Protein Hydrolys (PRO-STAT LIQUID) 30 Ml Liquid.pkt, 30 ML GTB DAILY SUGAR FREE 06/30/18 Cran/Vitc/Mannose/Inulin/Brom (Uti-Stat Liquid) 3,875 Mg/30 Ml Liquid, 30 ML GTB DAILY 06/30/18 Hydralazine Hcl* (Hydralazine Hcl*) 25 Mg Tab, 25 MG GTB Q6H, #60 TAB 06/30/18 Furosemide* (Lasix* Liq) 40 Mg/5 Ml Cup, 20 MG GTB DAILY, EA 06/30/18 Carvedilol* (Carvedilol*) 3.125 Mg Tablet, 3.125 MG GTB BID, #60 TAB 06/30/18 Atorvastatin* (Atorvastatin*) 80 Mg Tablet, 80 MG GTB QHS, #30 TAB 06/30/18 Aspirin* (Aspirin* EC) 81 Mg Tablet.dr, 162 MG GTB DAILY, TAB 06/30/18 Valproic Acid* (Valproic Acid* Liq) 250 Mg/5 Ml Syrup, 10 ML GTB Q8H, ML 06/30/18 Sucralfate* (Carafate*) 1 Gm/10 Ml Susp, 1 GM GTB QID, EA 06/30/18 Lisinopril* (Lisinopril*) 5 Mg Tablet, 5 MG GTB DAILY, #30 TAB 06/30/18 Lansoprazole* (Lansoprazole*) 30 Mg Capsule.dr, 30 MG GTB BID, CAP 06/30/18 Lactobacillus Acidophilus (Acidophilus Lactobacillus) 1 Each Capsule, 1 EACH GTB BID, CAP 06/30/18 Medications Current Medications Ondansetron HCl (Zofran Inj) 4 mg Q6H PRN IV NAUSEA AND/OR VOMITING; Start 11/11/18 at 23:00 Acetaminophen (Tylenol Liquid) 650 mg Q6H PRN PO FEVER; Start 11/11/18 at 23:00 Morphine Sulfate (morphine) 2 mg Q4H PRN IV PAIN LEVEL 7-10 Last administered on 11/12/18at 05:26; Admin Dose 2 MG; Start 11/11/18 at 23:00 Insulin Aspart (Novolog Insulin Pen) NOVOLOG *MODERATE* ALGORI... Q4 SC Last administered on 11/14/18at 09:21; Admin Dose 2 UNIT; Start 11/12/18 at 05:00 Miscellaneous Information 1 ea NOTE XX ; Start 11/12/18 at 03:00 Glucose (Glutose) 15 gm Q15M PRN PO DECREASED GLUCOSE; Start 11/12/18 at 03:00 Glucose (Glutose) 22.5 gm Q15M PRN PO DECREASED GLUCOSE; Start 11/12/18 at 03:00 Dextrose (D50w Syringe) 25 ml Q15M PRN IV DECREASED GLUCOSE; Start 11/12/18 at 03:00 Dextrose (D50w Syringe) 50 ml Q15M PRN IV DECREASED GLUCOSE; Start 11/12/18 at 03:00 Glucagon (Glucagen) 1 mg Q15M PRN IM DECREASED GLUCOSE; Start 11/12/18 at 03:00 Glucose (Glutose) 15 gm Q15M PRN BUCCAL DECREASED GLUCOSE; Start 11/12/18 at 03:00 Acetaminophen (Tylenol Tab) 650 mg Q4H PRN GTB MILD PAIN LEVEL 1-3 Last administered on 11/14/18 00:39; Admin Dose 650 MG; Start 11/12/18 at 09:30 Acetylcysteine (Mucomyst) 3 ml BID RESP THERAPY NEB Last administered on 11/14 08:22; Admin Dose 3 ML; Start 11/12/18 at 10:00 Atorvastatin Calcium (Lipitor) 80 mg QHS GTB Last administered on 11/13/18 21:27; Admin Dose 80 MG; Start 11/12/18 at 21:00 Bisacodyl (Dulcolax Supp) 10 mg Q24H PRN MO CONSTIPATION; Start 11/12/18 at 09:30 Carvedilol (Coreg) 3.125 mg BID GTB Last administered on 11/14/18 09:15; Admin Dose 3.125 MG; Start 11/12/18 at 09:30 Furosemide (Lasix) 20 mg DAILY GTB Last administered on 11/14/18 09:15; Admin Dose 20 MG; Start 11/12/18 at 09:30 Hydralazine HCl (Apresoline) 25 mg Q6 GTB Last administered on 11/14/18 05:35; Admin Dose 25 MG; Start 11/12/18 at 12:00 Lansoprazole (Prevacid) 30 mg BID@0600,1800 GTB Last administered on 11/14/18 05:43; Admin Dose 30 MG; Start 11/12/18 at 18:00 Magnesium Hydroxide (Milk Of Mag) 30 ml Q24H GTB Last administered on 11/14/18 09:14; Admin Dose 30 ML; Start 11/12/18 at 09:30 Senna (Senokot) 2 tab BID GTB Last administered on 11/14/18 09:14; Admin Dose 2 TAB; Start 11/12/18 at 09:30 Sucralfate (Carafate Susp) 1 gm QID GTB Last administered on 11/14/18 09:14; Admin Dose 1 GM; Start 11/12/18 at 13:00 Valproate Sodium (Depakene Liquid Cup) 500 mg Q8 GTB Last administered on 11/14/18 05:35; Admin Dose 500 MG; Start 11/12/18 at 10:00 Insulin Human NPH (Humulin N) 28 unit Q8 SC Last administered on 11/14/18at 05:43; Admin Dose 28 UNIT; Start 11/12/18 at 10:00 Sodium Biphosphate/ Sodium Phosphate (Fleet Enema) 133 ml DAILY PRN MO CONSTIPATION; Start 11/12/18 at 10:00 Lisinopril (Zestril) 10 mg DAILY GTB Last administered on 11/14/18at 09:16; Admin Dose 10 MG; Start 11/14/18 at 09:00 Albuterol/ Ipratropium (Duoneb) 3 ml Q6H RESP THERAPY PRN HHN SHORTNESS OF BREATH Last administered on 11/14/18at 08:23; Admin Dose 3 ML; Start 11/13/18 at 21:00 Allergies: Coded Allergies: No Known Drug Allergies (Verified Allergy, Mild, 06/30/18) Past Surgical History Past Surgical Hx: other Social History Smoking Status: Unknown if ever smoked Exam/Review of Systems Exam Vitals Vital Signs Date Temp Pulse Resp B/P (MAP) Pulse Ox O2 O2 Flow FiO2 Time Delivery Rate 11/14/18 112 20 100 Aerosol 5.0 28 08:24 11/14/18 134/88 06:00 (103) 11/14/18 101.7 04:00 Intake and Output 11/13/18 11/13/18 11/14/18 1515:00 23:00 07:00 IntakeIntake Total 160 ml 680 ml 510 ml OutputOutput Total 380 ml 290 ml 280 ml BalanceBalance -220 ml 390 ml 230 ml Exam HEENT exam; supple neck, no JVD. No lymphadenopathy. Midline trachea. No thyromegaly. There is a large right parietal skull depression with cystic swelling. Pupils are small bilaterally. Patient has fair dentition. Tracheostomy in place. Attached to T-piece. Insertion site is clean. Chest exam; diminished breath sounds throughout. S1-S2 audible, no murmurs. Regular rhythm. Abdomen exam; soft, G-tube in place. Protuberant. No organomegaly. Bowel sounds audible. Extremity exam; no peripheral edema clubbing. RECRUITER COORDINATOR exam; patient remains profoundly unresponsive. Results Result Diagram: 11/13/18 0650 11/13/18 0650 Results 24hrs Laboratory Tests Test 11/13/18 12:19 11/13/18 13:31 11/13/18 17:32 11/13/18 21:33 Bedside Glucose 202 209 177 166 Test 11/14/18 00:40 11/14/18 05:34 11/14/18 09:16 Bedside Glucose 161 172 162 Medications Medication Current Medications Ondansetron HCl (Zofran Inj) 4 mg Q6H PRN IV NAUSEA AND/OR VOMITING; Start 11/11/18 at 23:00 Acetaminophen (Tylenol Liquid) 650 mg Q6H PRN PO FEVER; Start 11/11/18 at 23:00 Morphine Sulfate (morphine) 2 mg Q4H PRN IV PAIN LEVEL 7-10 Last administered on 11/12/18at 05:26; Admin Dose 2 MG; Start 11/11/18 at 23:00 Insulin Aspart (Novolog Insulin Pen) NOVOLOG *MODERATE* ALGORI... Q4 SC Last administered on 11/14/18at 09:21; Admin Dose 2 UNIT; Start 11/12/18 at 05:00 Miscellaneous Information 1 ea NOTE XX ; Start 11/12/18 at 03:00 Glucose (Glutose) 15 gm Q15M PRN PO DECREASED GLUCOSE; Start 11/12/18 at 03:00 Glucose (Glutose) 22.5 gm Q15M PRN PO DECREASED GLUCOSE; Start 11/12/18 at 03:00 Dextrose (D50w Syringe) 25 ml Q15M PRN IV DECREASED GLUCOSE; Start 11/12/18 at 03:00 Dextrose (D50w Syringe) 50 ml Q15M PRN IV DECREASED GLUCOSE; Start 11/12/18 at 03:00 Glucagon (Glucagen) 1 mg Q15M PRN IM DECREASED GLUCOSE; Start 11/12/18 at 03:00 Glucose (Glutose) 15 gm Q15M PRN BUCCAL DECREASED GLUCOSE; Start 11/12/18 at 03:00 Acetaminophen (Tylenol Tab) 650 mg Q4H PRN GTB MILD PAIN LEVEL 1-3 Last administered on 11/14/18at 00:39; Admin Dose 650 MG; Start 11/12/18 at 09:30 Acetylcysteine (Mucomyst) 3 ml BID RESP THERAPY NEB Last administered on 11/14/18at 08:22; Admin Dose 3 ML; Start 11/12/18 at 10:00 Atorvastatin Calcium (Lipitor) 80 mg QHS GTB Last administered on 11/13/18 21:27; Admin Dose 80 MG; Start 11/12/18 at 21:00 Bisacodyl (Dulcolax Supp) 10 mg Q24H PRN MO CONSTIPATION; Start 11/12/18 at 09:30 Carvedilol (Coreg) 3.125 mg BID GTB Last administered on 11/14/18 09:15; Admin Dose 3.125 MG; Start 11/12/18 at 09:30 Furosemide (Lasix) 20 mg DAILY GTB Last administered on 11/14/18 09:15; Admin Dose 20 MG; Start 11/12/18 at 09:30 Hydralazine HCl (Apresoline) 25 mg Q6 GTB Last administered on 11/14/18 05:35; Admin Dose 25 MG; Start 11/12/18 at 12:00 Lansoprazole (Prevacid) 30 mg BID@0600,1800 GTB Last administered on 11/14/18 05:43; Admin Dose 30 MG; Start 11/12/18 at 18:00 Magnesium Hydroxide (Milk Of Mag) 30 ml Q24H GTB Last administered on 11/14/18 09:14; Admin Dose 30 ML; Start 11/12/18 at 09:30 Senna (Senokot) 2 tab BID GTB Last administered on 11/14/18 09:14; Admin Dose 2 TAB; Start 11/12/18 at 09:30 Sucralfate (Carafate Susp) 1 gm QID GTB Last administered on 11/14/18 09:14; Admin Dose 1 GM; Start 11/12/18 at 13:00 Valproate Sodium (Depakene Liquid Cup) 500 mg Q8 GTB Last administered on 11/14/18 05:35; Admin Dose 500 MG; Start 11/12/18 at 10:00 Insulin Human NPH (Humulin N) 28 unit Q8 SC Last administered on 11/14/18 05:43; Admin Dose 28 UNIT; Start 11/12/18 at 10:00 Sodium Biphosphate/ Sodium Phosphate (Fleet Enema) 133 ml DAILY PRN MO CONSTIPATION; Start 11/12/18 at 10:00 Lisinopril (Zestril) 10 mg DAILY GTB Last administered on 11/14/18 09:16; Admin Dose 10 MG; Start 11/14/18 at 09:00 Albuterol/ Ipratropium (Duoneb) 3 ml Q6H RESP THERAPY PRN HHN SHORTNESS OF BREATH Last administered on 11/14/18at 08:23; Admin Dose 3 ML; Start 11/13/18 at 21:00 MER CHRIS November 14, 2018 09:50
--- NOTE | 2018-11-14 10:02 | PN ---
Date/Time of Note Date/Time of Note DATE: 11/14/18 TIME: 10:02 Assessment/Plan VTE Prophylaxis Risk score (from [facility] [place])>0 risk: 7 SCD applied (from [facility] [place]): Yes SCD contraindicated: other Pharmacological prophylaxis: other Pharm contraindication: other Lines/Catheters IV Catheter Type (from [facility]): [place] Urinary Cath still in place: Yes Reason Cath still needed: urinary retention Assessment/Plan Assessment/Plan - Intracranial bleed on top of massive cerebrovascular accident in the past. - aspirin dcd - per neurosx - ICU care - Coronary artery disease, status post percutaneous coronary intervention. We will continue Coreg. - Ischemic cardiomyopathy with decreased left ventricular ejection fraction. EF 30-35% by echo this admit - per cardio - Continue Coreg, lisinopril and Lasix. - Tachycardia - Diabetes. - continue NPH and sliding scale insulin. - Dysphagia. Continue G-tube feeding. - Dyslipidemia. Continue Lipitor. - Respiratory failure. -per pulmonary - Continue trach care and breathing treatment and Mucomyst for secretions. - Hx cerebrovascular accident - Congestive heart failure, systolic, chronic. - Hypertension, under reasonable control in the setting of acute hemorrhage. - Chronic encephalopathy. - Prior craniectomy. - Anemia. We will hold off on antibiotic at this time. Total critical care time spent 45 mins. Patient seen in collaboration with Dr Cortez. staff Result Diagram: 11/13/18 0650 11/13/18 0650 Results 24hrs Laboratory Tests Test 11/13/18 12:19 11/13/18 13:31 11/13/18 17:32 11/13/18 21:33 Bedside Glucose 202 209 177 166 Test 11/14/18 00:40 11/14/18 05:34 11/14/18 09:16 Bedside Glucose 161 172 162 Subjective 24 Hr Interval Summary Subjective hx not possible: pt non-verbal Constitutional: requiring IVF, requiring O2 Exam/Review of Systems Exam Vitals Vital Signs Date Temp Pulse Resp B/P (MAP) Pulse Ox O2 O2 Flow FiO2 Time Delivery Rate 11/14/18 114 37 118/80 92 Trach 09:00 (93) Collar 11/14/18 5.0 28 08:24 11/14/18 99.9 08:00 Intake and Output 11/13/18 11/13/18 11/14/18 1515:00 23:00 07:00 IntakeIntake Total 160 ml 680 ml 570 ml OutputOutput Total 380 ml 290 ml 310 ml BalanceBalance -220 ml 390 ml 260 ml Constitutional: well developed, non-verbal, obese Head: other (sp craniotomy) Eyes: nl lids ENMT: nl external ears & nose Neck: non-tender Respiratory: diminished breath sounds (at bases bilaterally) Gastrointestinal: soft Musculoskeletal: muscle weakness Extremities: edema Neurological: unresponsive Results Results 24hrs Laboratory Tests Test 11/13/18 12:19 11/13/18 13:31 11/13/18 17:32 11/13/18 21:33 Bedside Glucose 202 209 177 166 Test 11/14/18 00:40 11/14/18 05:34 11/14/18 09:16 Bedside Glucose 161 172 162 Medications Medication Current Medications Ondansetron HCl (Zofran Inj) 4 mg Q6H PRN IV NAUSEA AND/OR VOMITING; Start 11/11/18 at 23:00 Acetaminophen (Tylenol Liquid) 650 mg Q6H PRN PO FEVER; Start 11/11/18 at 23:00 Morphine Sulfate (morphine) 2 mg Q4H PRN IV PAIN LEVEL 7-10 Last administered on 11/12/18at 05:26; Admin Dose 2 MG; Start 11/11/18 at 23:00 Insulin Aspart (Novolog Insulin Pen) NOVOLOG *MODERATE* ALGORI... Q4 SC Last administered on 11/14/18at 09:21; Admin Dose 2 UNIT; Start 11/12/18 at 05:00 Miscellaneous Information 1 ea NOTE XX ; Start 11/12/18 at 03:00 Glucose (Glutose) 15 gm Q15M PRN PO DECREASED GLUCOSE; Start 11/12/18 at 03:00 Glucose (Glutose) 22.5 gm Q15M PRN PO DECREASED GLUCOSE; Start 11/12/18 at 03:00 Dextrose (D50w Syringe) 25 ml Q15M PRN IV DECREASED GLUCOSE; Start 11/12/18 at 03:00 Dextrose (D50w Syringe) 50 ml Q15M PRN IV DECREASED GLUCOSE; Start 11/12/18 at 03:00 Glucagon (Glucagen) 1 mg Q15M PRN IM DECREASED GLUCOSE; Start 11/12/18 at 03:00 Glucose (Glutose) 15 gm Q15M PRN BUCCAL DECREASED GLUCOSE; Start 11/12/18 at 03:00 Acetaminophen (Tylenol Tab) 650 mg Q4H PRN GTB MILD PAIN LEVEL 1-3 Last administered on 11/14/18 00:39; Admin Dose 650 MG; Start 11/12/18 at 09:30 Acetylcysteine (Mucomyst) 3 ml BID RESP THERAPY NEB Last administered on 11/14/18 08:22; Admin Dose 3 ML; Start 11/12/18 at 10:00 Atorvastatin Calcium (Lipitor) 80 mg QHS GTB Last administered on 11/13/18 21:27; Admin Dose 80 MG; Start 11/12/18 at 21:00 Bisacodyl (Dulcolax Supp) 10 mg Q24H PRN RI CONSTIPATION; Start 11/12/18 at 09:30 Carvedilol (Coreg) 3.125 mg BID GTB Last administered on 11/14/18 09:15; Admin Dose 3.125 MG; Start 11/12/18 at 09:30 Furosemide (Lasix) 20 mg DAILY GTB Last administered on 11/14/18 09:15; Admin Dose 20 MG; Start 11/12/18 at 09:30 Hydralazine HCl (Apresoline) 25 mg Q6 GTB Last administered on 11/14/18 05:35; Admin Dose 25 MG; Start 11/12/18 at 12:00 Lansoprazole (Prevacid) 30 mg BID@0600,1800 GTB Last administered on 11/14/18 05:43; Admin Dose 30 MG; Start 11/12/18 at 18:00 Magnesium Hydroxide (Milk Of Mag) 30 ml Q24H GTB Last administered on 11/14/18 09:14; Admin Dose 30 ML; Start 11/12/18 at 09:30 Senna (Senokot) 2 tab BID GTB Last administered on 11/14/18 09:14; Admin Dose 2 TAB; Start 11/12/18 at 09:30 Sucralfate (Carafate Susp) 1 gm QID GTB Last administered on 11/14/18 09:14; Admin Dose 1 GM; Start 11/12/18 at 13:00 Valproate Sodium (Depakene Liquid Cup) 500 mg Q8 GTB Last administered on 11/14/18 05:35; Admin Dose 500 MG; Start 11/12/18 at 10:00 Insulin Human NPH (Humulin N) 28 unit Q8 SC Last administered on 11/14/18at 05:43; Admin Dose 28 UNIT; Start 11/12/18 at 10:00 Sodium Biphosphate/ Sodium Phosphate (Fleet Enema) 133 ml DAILY PRN RI CONSTIPATION; Start 11/12/18 at 10:00 Lisinopril (Zestril) 10 mg DAILY GTB Last administered on 11/14/18at 09:16; Admin Dose 10 MG; Start 11/14/18 at 09:00 Albuterol/ Ipratropium (Duoneb) 3 ml Q6H RESP THERAPY PRN HHN SHORTNESS OF BREATH Last administered on 11/14/18at 08:23; Admin Dose 3 ML; Start 11/13/18 at 21:00 REGINA BUI November 14, 2018 10:02
--- NOTE | 2018-11-14 12:44 | CONS ---
Assessment/Plan Assessment/Plan Hospital Course (Demo Recall) IMPRESSION: 1. Abnormal electrocardiogram, assess for acute coronary syndrome.-neg trop x 3/EF 30-35% 2. Cardiomyopathy with decreased left ventricular ejection fraction. EF 30-35% by echo this admit 3. Congestive heart failure, systolic, chronic. 4. Hypertension, under reasonable control in the setting of acute hemorrhage. 5. Intracranial hemorrhage. 6. Chronic encephalopathy. 7. Prior craniectomy. 8. History of prior PTCA and stent placement. 9. Anemia. 10. Tachycardia-S tach today ? etiology, autonomic dysfunction Recc: -ICU -continue hydralazine/JESSA s/p inccrease yesterday and will increase dose of coreg and follow HR clsoely -Also will give IVP dose of digoxin x 1 and f/u HR after -Continue statin -ongoing NRSG eval Consultation Date/Type/Reason Admit Date/Time November 11, 2018 at 22:51 Initial Consult Date 11/12/18 Type of Consult Cardiology Reason for Consultation CHF Requesting Provider: NIA DOMINGO MD Date/Time of Note DATE: 11/14/18 TIME: 12:41 Exam/Review of Systems Vital Signs Vitals Vital Signs Date Temp Pulse Resp B/P (MAP) Pulse Ox O2 O2 Flow FiO2 Time Delivery Rate 11/14/18 118 30 93 Aerosol 10.0 40 12:22 11/14/18 118/80 09:00 (93) 11/14/18 99.9 08:00 Intake and Output 11/13/18 11/13/18 11/14/18 1515:00 23:00 07:00 IntakeIntake Total 160 ml 680 ml 570 ml OutputOutput Total 380 ml 290 ml 310 ml BalanceBalance -220 ml 390 ml 260 ml Exam Exam Review of Systems: CONSTITUTIONAL: No fevers, chills. PULMONARY:trached CARDIOVASCULAR: No chest pain/palpitations GASTROINTESTINAL: No nausea/vomiting. GENITOURINARY: No hematuria/dysuria. MUSCULOSKELETAL: No myagias/arthalgias. PSYCHIATRIC: The patient denies depression. NEUROLOGIC: encephalopathic Constitutional: other (encephalopathic) Psych: no complaints Head: normocephalic ENMT: mucosa pink and moist Neck: supple, jvd (9 cm water) Respiratory: diminished breath sounds (at bases/B) Cardiovascular: other (tcahycardic, regular rhythm) Gastrointestinal: soft, non-tender Musculoskeletal: muscle tone (normal) Extremities: edema (none) Labs Result Diagram: 11/13/18 0650 11/13/18 0650 Results 24hrs Laboratory Tests Test 11/13/18 13:31 11/13/18 17:32 11/13/18 21:33 11/14/18 00:40 Bedside Glucose 209 177 166 161 Test 11/14/18 05:34 11/14/18 09:16 11/14/18 09:43 Bedside Glucose 172 162 Blood Gas Blood arterial Specimen Source Arterial Blood 11/14/2018 10:40: Date Drawn 08 AM Arterial Blood pH 7.506 H (Temp corrected) Arterial Blood 40.5 pCO2 (Temp correct) Arterial Blood 60.3 L pO2 (Temp corrected) Arterial Blood 31.3 H HCO3 Arterial Blood 7.6 H Base Excess Arterial Blood 92.0 L Oxygen Saturation Rl Test ACCEPTAB Arterial Blood Right Radial Gas Puncture Site Arterial 0.1 Blood Carboxyhemo globin Arterial Blood 0.4 Methemoglobin Blood Gas A-a O2 91.6 H Differential Oxyhemoglobin 91.5 L Percent Blood Gas 37.0 Temperature Blood Gas TRACH COLLAR Modality FiO2 28.0 Blood Gas CW Notified Whom Blood Gas 11/14/2018 10:55: Notified Time 56 AM Medications Medications Current Medications Ondansetron HCl (Zofran Inj) 4 mg Q6H PRN IV NAUSEA AND/OR VOMITING; Start 11/11/18 at 23:00 Acetaminophen (Tylenol Liquid) 650 mg Q6H PRN PO FEVER; Start 11/11/18 at 23:00 Morphine Sulfate (morphine) 2 mg Q4H PRN IV PAIN LEVEL 7-10 Last administered on 11/12/18at 05:26; Admin Dose 2 MG; Start 11/11/18 at 23:00 Insulin Aspart (Novolog Insulin Pen) NOVOLOG *MODERATE* ALGORI... Q4 SC Last administered on 11/14/18at 09:21; Admin Dose 2 UNIT; Start 11/12/18 at 05:00 Miscellaneous Information 1 ea NOTE XX ; Start 11/12/18 at 03:00 Glucose (Glutose) 15 gm Q15M PRN PO DECREASED GLUCOSE; Start 11/12/18 at 03:00 Glucose (Glutose) 22.5 gm Q15M PRN PO DECREASED GLUCOSE; Start 11/12/18 at 03:00 Dextrose (D50w Syringe) 25 ml Q15M PRN IV DECREASED GLUCOSE; Start 11/12/18 at 03:00 Dextrose (D50w Syringe) 50 ml Q15M PRN IV DECREASED GLUCOSE; Start 11/12/18 at 03:00 Glucagon (Glucagen) 1 mg Q15M PRN IM DECREASED GLUCOSE; Start 11/12/18 at 03:00 Glucose (Glutose) 15 gm Q15M PRN BUCCAL DECREASED GLUCOSE; Start 11/12/18 at 03:00 Acetaminophen (Tylenol Tab) 650 mg Q4H PRN GTB MILD PAIN LEVEL 1-3 Last administered on 11/14/18 00:39; Admin Dose 650 MG; Start 11/12/18 at 09:30 Acetylcysteine (Mucomyst) 3 ml BID RESP THERAPY NEB Last administered on 11/14/18 08:22; Admin Dose 3 ML; Start 11/12/18 at 10:00 Atorvastatin Calcium (Lipitor) 80 mg QHS GTB Last administered on 11/13/18 21:27; Admin Dose 80 MG; Start 11/12/18 at 21:00 Bisacodyl (Dulcolax Supp) 10 mg Q24H PRN RI CONSTIPATION; Start 11/12/18 at 09:30 Carvedilol (Coreg) 3.125 mg BID GTB Last administered on 11/14/18 09:15; Admin Dose 3.125 MG; Start 11/12/18 at 09:30 Furosemide (Lasix) 20 mg DAILY GTB Last administered on 11/14/18 09:15; Admin Dose 20 MG; Start 11/12/18 at 09:30 Hydralazine HCl (Apresoline) 25 mg Q6 GTB Last administered on 11/14/18 05:35; Admin Dose 25 MG; Start 11/12/18 at 12:00 Lansoprazole (Prevacid) 30 mg BID@0600,1800 GTB Last administered on 11/14/18 05:43; Admin Dose 30 MG; Start 11/12/18 at 18:00 Magnesium Hydroxide (Milk Of Mag) 30 ml Q24H GTB Last administered on 11/14/18 09:14; Admin Dose 30 ML; Start 11/12/18 at 09:30 Senna (Senokot) 2 tab BID GTB Last administered on 11/14/18 09:14; Admin Dose 2 TAB; Start 11/12/18 at 09:30 Sucralfate (Carafate Susp) 1 gm QID GTB Last administered on 11/14/18 09:14; Admin Dose 1 GM; Start 11/12/18 at 13:00 Valproate Sodium (Depakene Liquid Cup) 500 mg Q8 GTB Last administered on 11/14/18 05:35; Admin Dose 500 MG; Start 11/12/18 at 10:00 Insulin Human NPH (Humulin N) 28 unit Q8 SC Last administered on 11/14/18 05:43; Admin Dose 28 UNIT; Start 11/12/18 at 10:00 Sodium Biphosphate/ Sodium Phosphate (Fleet Enema) 133 ml DAILY PRN RI CONSTIPATION; Start 11/12/18 at 10:00 Lisinopril (Zestril) 10 mg DAILY GTB Last administered on 11/14/18 09:16; Admin Dose 10 MG; Start 11/14/18 at 09:00 Albuterol/ Ipratropium (Duoneb) 3 ml Q6H RESP THERAPY PRN HHN SHORTNESS OF BREATH Last administered on 11/14/18 08:23; Admin Dose 3 ML; Start 11/13/18 at 21:00 MAE ROSALES November 14, 2018 12:44
[2018-11-14] MEDS: ACETAMINOPHEN 650MG/20.3ML CUP PO PRN (12:45)
[2018-11-14] MEDS ORDERED: DIGOXIN 500 MCG INJ IV ONE (13:00)
[2018-11-14] MEDS: CEFEPIME 1GM/50 ML (PMX) 50 ML IVPB SCH ×2 (13:38→20:54)
[2018-11-14] MEDS: ATORVASTATIN 80 MG TAB GTB SCH (20:54)
[2018-11-15] VITALS (24 sets, daily range): BP systolic 88–167; BP diastolic 68–95; PULSE 94–114; RESP 13–38
[2018-11-15] MEDS: INSULIN ASPART [NOVOLOG] 3 ML PEN SC SCH ×6 (02:04→21:22)
[2018-11-15] MEDS: LANSOPRAZOLE 30 MG CAP GTB SCH ×2 (05:09→17:33)
[2018-11-15] MEDS: VALPROIC ACID LIQUID CUP 250 MG/5 ML CUP GTB SCH ×3 (05:12→21:36)
[2018-11-15] MEDS: NPH, HUMAN INSULIN ISOPHANE 3ML VIAL SC SCH ×3 (05:15→21:20)
[2018-11-15] MEDS: ACETAMINOPHEN 650MG/20.3ML CUP PO PRN ×2 (05:30→12:52)
--- NOTE | 2018-11-15 07:56 | CONS ---
Consultation Date/Type/Reason Admit Date/Time November 11, 2018 at 22:51 Date/Time of Note DATE: 11/15/18 TIME: 07:56 Past Medical History Home Meds Reported Medications Acetylcysteine* (Mucomyst*) 4 Ml Soln, 3 ML NEB BID, EA 06/30/18 Na Phos,M-B/Na Phos,Di-Ba (Fleet Enema Extra) 230 Ml Enema, 230 ML RC NEEDED, ENEMA 06/30/18 Bisacodyl* (Bisacodyl*) 10 Mg Supp, 10 MG [place] Q24H PRN for NEEDED, SUPP 06/30/18 Magnesium Hydroxide* (Milk Of Magnesia*) 400 Mg/5 Ml Oral.susp, 30 ML GTB Q24H for CONSTIPATION, ML 06/30/18 Sennosides* (Senna Lax*) 8.6 Mg Tablet, 2 TAB GTB BID, TAB 06/30/18 Insulin Aspart* (Novolog Insulin Pen*) 100 Unit/Ml Soln, 0 SC .SLIDING SCALE AC, EA IF BS 0-120=0 UNITS,120-150=0 UNIT, 151-200=1 UNIT, 201-250=2 UNIT, 251-300=3 UNIT, 301-350=4 UNIT, 351-400=5 UNIT, ABOVE 400=6 UNIT AND CALL MD. 06/30/18 Glucagon HCl (Glucagon HCl) 1 Mg Vial, 1 MG IJ NEEDED, VIAL IF BS BELOW 60 06/30/18 Insulin NPH Human Isophane (Humulin N) 100 Unit/1 Ml Vial, 28 UNIT SQ Q8H, VIAL 06/30/18 Hydrocodone/Acetaminophen ([place] 5-325 Tablet) 1 Each Tablet, 1 EACH GTB Q6H, TAB NEEDED FOR PAIN 06/30/18 Acetaminophen* (Tylenol*) 500 Mg Tab, 1000 MG GTB Q4H PRN for PAIN 4-6/10, TAB 06/30/18 Acetaminophen* (Tylenol*) 325 Mg Tablet, 650 MG GTB PRN PRN for TRACH TUBE CHANGE, TAB 06/30/18 Acetaminophen* (Tylenol*) 325 Mg Tablet, 650 MG GTB Q4H PRN for MILD PAIN LEVEL 1-3, TAB AND FEVER 100 AND ABOVE 06/30/18 Amino Acids/Protein Hydrolys (PRO-STAT LIQUID) 30 Ml Liquid.pkt, 30 ML GTB DAILY SUGAR FREE 06/30/18 Cran/Vitc/Mannose/Inulin/Brom (Uti-Stat Liquid) 3,875 Mg/30 Ml Liquid, 30 ML GTB DAILY 06/30/18 Hydralazine Hcl* (Hydralazine Hcl*) 25 Mg Tab, 25 MG GTB Q6H, #60 TAB 06/30/18 Furosemide* (Lasix* Liq) 40 Mg/5 Ml Cup, 20 MG GTB DAILY, EA 06/30/18 Carvedilol* (Carvedilol*) 3.125 Mg Tablet, 3.125 MG GTB BID, #60 TAB 06/30/18 Atorvastatin* (Atorvastatin*) 80 Mg Tablet, 80 MG GTB QHS, #30 TAB 06/30/18 Aspirin* (Aspirin* EC) 81 Mg Tablet.dr, 162 MG GTB DAILY, TAB 06/30/18 Valproic Acid* (Valproic Acid* Liq) 250 Mg/5 Ml Syrup, 10 ML GTB Q8H, ML 06/30/18 Sucralfate* (Carafate*) 1 Gm/10 Ml Susp, 1 GM GTB QID, EA 06/30/18 Lisinopril* (Lisinopril*) 5 Mg Tablet, 5 MG GTB DAILY, #30 TAB 06/30/18 Lansoprazole* (Lansoprazole*) 30 Mg Capsule.dr, 30 MG GTB BID, CAP 06/30/18 Lactobacillus Acidophilus (Acidophilus Lactobacillus) 1 Each Capsule, 1 EACH GTB BID, CAP 06/30/18 Medications Current Medications Ondansetron HCl (Zofran Inj) 4 mg Q6H PRN IV NAUSEA AND/OR VOMITING; Start 11/11/18 at 23:00 Acetaminophen (Tylenol Liquid) 650 mg Q6H PRN PO FEVER Last administered on 11/15/18at 05:30; Admin Dose 650 MG; Start 11/11/18 at 23:00 Morphine Sulfate (morphine) 2 mg Q4H PRN IV PAIN LEVEL 7-10 Last administered on 11/12/18at 05:26; Admin Dose 2 MG; Start 11/11/18 at 23:00 Insulin Aspart (Novolog Insulin Pen) NOVOLOG *MODERATE* ALGORI... Q4 SC Last administered on 11/15/18at 05:08; Admin Dose 2 UNIT; Start 11/12/18 at 05:00 Miscellaneous Information 1 ea NOTE XX ; Start 11/12/18 at 03:00 Glucose (Glutose) 15 gm Q15M PRN PO DECREASED GLUCOSE; Start 11/12/18 at 03:00 Glucose (Glutose) 22.5 gm Q15M PRN PO DECREASED GLUCOSE; Start 11/12/18 at 03:00 Dextrose (D50w Syringe) 25 ml Q15M PRN IV DECREASED GLUCOSE; Start 11/12/18 at 03:00 Dextrose (D50w Syringe) 50 ml Q15M PRN IV DECREASED GLUCOSE; Start 11/12/18 at 03:00 Glucagon (Glucagen) 1 mg Q15M PRN IM DECREASED GLUCOSE; Start 11/12/18 at 03:00 Glucose (Glutose) 15 gm Q15M PRN BUCCAL DECREASED GLUCOSE; Start 11/12/18 at 03:00 Acetaminophen (Tylenol Tab) 650 mg Q4H PRN GTB MILD PAIN LEVEL 1-3 Last administered on 11/14/18at 00:39; Admin Dose 650 MG; Start 11/12/18 at 09:30 Acetylcysteine (Mucomyst) 3 ml BID RESP THERAPY NEB Last administered on 11/14/18at 20:09; Admin Dose 3 ML; Start 11/12/18 at 10:00 Atorvastatin Calcium (Lipitor) 80 mg QHS GTB Last administered on 11/14/18at 20:54; Admin Dose 80 MG; Start 11/12/18 at 21:00 Bisacodyl (Dulcolax Supp) 10 mg Q24H PRN [place] CONSTIPATION; Start 11/12/18 at 09:30 Furosemide (Lasix) 20 mg DAILY GTB Last administered on 11/14/18at 09:15; Admin Dose 20 MG; Start 11/12/18 at 09:30 Hydralazine HCl (Apresoline) 25 mg Q6 GTB Last administered on 11/15/18at 05:08; Admin Dose 25 MG; Start 11/12/18 at 12:00 Lansoprazole (Prevacid) 30 mg BID@0600,1800 GTB Last administered on 11/15/18at 05:09; Admin Dose 30 MG; Start 11/12/18 at 18:00 Magnesium Hydroxide (Milk Of Mag) 30 ml Q24H GTB Last administered on 11/14/18 09:14; Admin Dose 30 ML; Start 11/12/18 at 09:30 Senna (Senokot) 2 tab BID GTB Last administered on 11/14/18 20:54; Admin Dose 2 TAB; Start 11/12/18 at 09:30 Sucralfate (Carafate Susp) 1 gm QID GTB Last administered on 11/14/18 20:53; Admin Dose 1 GM; Start 11/12/18 at 13:00 Valproate Sodium (Depakene Liquid Cup) 500 mg Q8 GTB Last administered on 10/21 05:12; Admin Dose 500 MG; Start 11/12/18 at 10:00 Insulin Human NPH (Humulin N) 28 unit Q8 SC Last administered on 11/15/18 05:15; Admin Dose 28 UNIT; Start 11/12/18 at 10:00 Sodium Biphosphate/ Sodium Phosphate (Fleet Enema) 133 ml DAILY PRN [place] CONSTIPATION; Start 11/12/18 at 10:00 Lisinopril (Zestril) 10 mg DAILY GTB Last administered on 11/14/18 09:16; Admin Dose 10 MG; Start 11/14/18 at 09:00 Albuterol/ Ipratropium (Duoneb) 3 ml Q6H RESP THERAPY PRN HHN SHORTNESS OF BREATH Last administered on 11/14/18 20:09; Admin Dose 3 ML; Start 11/13/18 at 21:00 Cefepime HCl 50 ml @ 100 mls/hr TID IVPB Last administered on 11/14/18 20:54; Admin Dose 100 MLS/HR; Start 11/14/18 at 13:00 Carvedilol (Coreg) 3.125 mg BID GTB Last administered on 11/14/18 20:54; Admin Dose 3.125 MG; Start 11/14/18 at 21:00 Allergies: Coded Allergies: No Known Drug Allergies (Verified Allergy, Mild, 06/30/18) Past Surgical History Past Surgical Hx: other Social History Smoking Status: Unknown if ever smoked Exam/Review of Systems Exam Vitals Vital Signs Date Temp Pulse Resp B/P (MAP) Pulse Ox O2 O2 Flow FiO2 Time Delivery Rate 11/15/18 105 24 99 Aerosol 10.0 40 07:43 T Tube 11/15/18 103.1 118/84 06:00 (95) Intake and Output 11/14/18 11/14/18 11/15/18 1515:00 23:00 07:00 IntakeIntake Total 890 ml 760 ml 540 ml OutputOutput Total 280 ml 340 ml 285 ml BalanceBalance 610 ml 420 ml 255 ml Results Result Diagram: 11/15/18 0427 11/15/18 0427 Results 24hrs Laboratory Tests Test 11/14/18 09:16 11/14/18 09:43 11/14/18 13:39 11/14/18 16:56 Bedside Glucose 162 210 166 Blood Gas Blood arterial Specimen Source Arterial Blood 11/14/2018 10:40: Date Drawn 08 AM Arterial Blood pH 7.506 H (Temp corrected) Arterial Blood 40.5 pCO2 (Temp correct) Arterial Blood 60.3 L pO2 (Temp corrected) Arterial Blood 31.3 H HCO3 Arterial Blood 7.6 H Base Excess Arterial Blood 92.0 L Oxygen Saturation Rl Test ACCEPTAB Arterial Blood Right Radial Gas Puncture Site Arterial 0.1 Blood Carboxyhemo globin Arterial Blood 0.4 Methemoglobin Blood Gas A-a O2 91.6 H Differential Oxyhemoglobin 91.5 L Percent Blood Gas 37.0 Temperature Blood Gas TRACH COLLAR Modality FiO2 28.0 Blood Gas CW Notified Whom Blood Gas 11/14/2018 10:55: Notified Time 56 AM Test 11/14/18 20:44 11/15/18 01:58 11/15/18 04:27 11/15/18 05:03 Bedside Glucose 164 158 162 White Blood Count 16.7 #H Red Blood Count 4.66 L Hemoglobin 13.0 L Hematocrit 41.2 L Mean Corpuscular 88.4 Volume Mean Corpuscular 27.9 L Hemoglobin Mean Corpuscular 31.6 L Hemoglobin Concen t Red Cell 16.6 H Distribution Width Platelet Count 252 Mean Platelet 12.4 H Volume Immature 0.400 Granulocytes % Neutrophils % 82.2 H Lymphocytes % 9.4 L Monocytes % 7.4 Eosinophils % 0.2 Basophils % 0.4 Nucleated Red 0.0 Blood Cells % Immature 0.060 H Granulocytes # Neutrophils # 13.7 H Lymphocytes # 1.6 Monocytes # 1.2 H Eosinophils # 0.0 Basophils # 0.1 Nucleated Red 0.0 Blood Cells # Sodium Level 139 Potassium Level 3.8 Chloride Level 98 Carbon Dioxide 35 H Level Anion Gap 6 Blood Urea 41 #H Nitrogen Creatinine 0.97 Est Glomerular > 60 Filtrat Rate mL/min Glucose Level 184 Calcium Level 8.6 Medications Medication Current Medications Ondansetron HCl (Zofran Inj) 4 mg Q6H PRN IV NAUSEA AND/OR VOMITING; Start 11/11/18 at 23:00 Acetaminophen (Tylenol Liquid) 650 mg Q6H PRN PO FEVER Last administered on 11/15/18at 05:30; Admin Dose 650 MG; Start 11/11/18 at 23:00 Morphine Sulfate (morphine) 2 mg Q4H PRN IV PAIN LEVEL 7-10 Last administered on 11/12/18at 05:26; Admin Dose 2 MG; Start 11/11/18 at 23:00 Insulin Aspart (Novolog Insulin Pen) NOVOLOG *MODERATE* ALGORI... Q4 SC Last administered on 11/15/18at 05:08; Admin Dose 2 UNIT; Start 11/12/18 at 05:00 Miscellaneous Information 1 ea NOTE XX ; Start 11/12/18 at 03:00 Glucose (Glutose) 15 gm Q15M PRN PO DECREASED GLUCOSE; Start 11/12/18 at 03:00 Glucose (Glutose) 22.5 gm Q15M PRN PO DECREASED GLUCOSE; Start 11/12/18 at 03:00 Dextrose (D50w Syringe) 25 ml Q15M PRN IV DECREASED GLUCOSE; Start 11/12/18 at 03:00 Dextrose (D50w Syringe) 50 ml Q15M PRN IV DECREASED GLUCOSE; Start 11/12/18 at 03:00 Glucagon (Glucagen) 1 mg Q15M PRN IM DECREASED GLUCOSE; Start 11/12/18 at 03:00 Glucose (Glutose) 15 gm Q15M PRN BUCCAL DECREASED GLUCOSE; Start 11/12/18 at 03:00 Acetaminophen (Tylenol Tab) 650 mg Q4H PRN GTB MILD PAIN LEVEL 1-3 Last administered on 11/14/18at 00:39; Admin Dose 650 MG; Start 11/12/18 at 09:30 Acetylcysteine (Mucomyst) 3 ml BID RESP THERAPY NEB Last administered on 11/14/18at 20:09; Admin Dose 3 ML; Start 11/12/18 at 10:00 Atorvastatin Calcium (Lipitor) 80 mg QHS GTB Last administered on 11/14/18 20:54; Admin Dose 80 MG; Start 11/12/18 at 21:00 Bisacodyl (Dulcolax Supp) 10 mg Q24H PRN [place] CONSTIPATION; Start 11/12/18 at 09:30 Furosemide (Lasix) 20 mg DAILY GTB Last administered on 11/14/18 09:15; Admin Dose 20 MG; Start 11/12/18 at 09:30 Hydralazine HCl (Apresoline) 25 mg Q6 GTB Last administered on 11/15/18 05:08; Admin Dose 25 MG; Start 11/12/18 at 12:00 Lansoprazole (Prevacid) 30 mg BID@0600,1800 GTB Last administered on 11/15/18 05:09; Admin Dose 30 MG; Start 11/12/18 at 18:00 Magnesium Hydroxide (Milk Of Mag) 30 ml Q24H GTB Last administered on 11/14/18 09:14; Admin Dose 30 ML; Start 11/12/18 at 09:30 Senna (Senokot) 2 tab BID GTB Last administered on 11/14/18 20:54; Admin Dose 2 TAB; Start 11/12/18 at 09:30 Sucralfate (Carafate Susp) 1 gm QID GTB Last administered on 11/14/18 20:53; Admin Dose 1 GM; Start 11/12/18 at 13:00 Valproate Sodium (Depakene Liquid Cup) 500 mg Q8 GTB Last administered on 11/15/18 05:12; Admin Dose 500 MG; Start 11/12/18 at 10:00 Insulin Human NPH (Humulin N) 28 unit Q8 SC Last administered on 11/15/18 05:15; Admin Dose 28 UNIT; Start 11/12/18 at 10:00 Sodium Biphosphate/ Sodium Phosphate (Fleet Enema) 133 ml DAILY PRN [place] CONSTIPATION; Start 11/12/18 at 10:00 Lisinopril (Zestril) 10 mg DAILY GTB Last administered on 11/14/18 09:16; Admin Dose 10 MG; Start 11/14/18 at 09:00 Albuterol/ Ipratropium (Duoneb) 3 ml Q6H RESP THERAPY PRN HHN SHORTNESS OF BREATH Last administered on 11/14/18 20:09; Admin Dose 3 ML; Start 11/13/18 at 21:00 Cefepime HCl 50 ml @ 100 mls/hr TID IVPB Last administered on 11/14/18 20:54; Admin Dose 100 MLS/HR; Start 11/14/18 at 13:00 Carvedilol (Coreg) 3.125 mg BID GTB Last administered on 11/14/18 20:54; Admin Dose 3.125 MG; Start 11/14/18 at 21:00 MOLINA BONILLA MD November 15, 2018 07:56
[2018-11-15] MEDS: ALBUTEROL/IPRATROPIUM (NEB) 3 ML AMP HHN PRN ×2 (08:20→19:51)
[2018-11-15] MEDS: ACETYLCYSTEINE 20% 4 ML VIAL NEB SCH ×2 (08:20→19:51)
[2018-11-15] MEDS: LISINOPRIL 5 MG TAB GTB SCH (08:30)
--- NOTE | 2018-11-15 09:23 | CONS ---
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 Neurologically unchanged but likely worse than baseline due to bleed. Currently has fever, w/u in progress, now on abx but still having fevers. May need to place an EVD if neurologically worsens but hold on shunt until infection clear. Still require discussion with PoA and/or family who still have not been able to be contacted, BAKARI working on this. Still awaiting MRI, repeat CT tomorrow if unable to obtain MRI. Consultation Date/Type/Reason Admit Date/Time November 11, 2018 at 22:51 Initial Consult Date Type of Consult Neurosurgery Requesting Provider: NIA DOMINGO MD Date/Time of Note DATE: 11/15/18 TIME: 09:17 24 HR Interval Summary Free Text/Dictation Patient non-verbal Exam/Review of Systems Exam Vitals Vital Signs Date Temp Pulse Resp B/P (MAP) Pulse Ox O2 O2 Flow FiO2 Time Delivery Rate 11/15/18 103 115/73 99 Trach 09:00 (87) Collar 11/15/18 20 10.0 40 08:24 11/15/18 100.8 08:04 Intake and Output 11/14/18 11/14/18 11/15/18 1515:00 23:00 07:00 IntakeIntake Total 890 ml 760 ml 540 ml OutputOutput Total 280 ml 340 ml 285 ml BalanceBalance 610 ml 420 ml 255 ml Head: other (craniectomy full, bulging. ) Neurological: other (opens eyes, left hemiplegia, moves right purposefully at times. May follwo simple commands. Minimally opens eyes to name and rub.) Results Result Diagram: 11/15/18 0427 11/15/18 0427 Results 24hrs Laboratory Tests Test 11/14/18 09:43 11/14/18 13:39 11/14/18 16:56 11/14/18 20:44 Blood Gas Blood arterial Specimen Source Arterial Blood 11/14/2018 10:40: Date Drawn 08 AM Arterial Blood pH 7.506 H (Temp corrected) Arterial Blood 40.5 pCO2 (Temp correct) Arterial Blood 60.3 L pO2 (Temp corrected) Arterial Blood 31.3 H HCO3 Arterial Blood 7.6 H Base Excess Arterial Blood 92.0 L Oxygen Saturation Rl Test ACCEPTAB Arterial Blood Right Radial Gas Puncture Site Arterial 0.1 Blood Carboxyhemo globin Arterial Blood 0.4 Methemoglobin Blood Gas A-a O2 91.6 H Differential Oxyhemoglobin 91.5 L Percent Blood Gas 37.0 Temperature Blood Gas TRACH COLLAR Modality FiO2 28.0 Blood Gas CW Notified Whom Blood Gas 11/14/2018 10:55: Notified Time 56 AM Bedside Glucose 210 166 164 Test 11/15/18 01:58 11/15/18 04:27 11/15/18 05:03 11/15/18 08:23 Bedside Glucose 158 162 207 White Blood Count 16.7 #H Red Blood Count 4.66 L Hemoglobin 13.0 L Hematocrit 41.2 L Mean Corpuscular 88.4 Volume Mean Corpuscular 27.9 L Hemoglobin Mean Corpuscular 31.6 L Hemoglobin Concen t Red Cell 16.6 H Distribution Width Platelet Count 252 Mean Platelet 12.4 H Volume Immature 0.400 Granulocytes % Neutrophils % 82.2 H Lymphocytes % 9.4 L Monocytes % 7.4 Eosinophils % 0.2 Basophils % 0.4 Nucleated Red 0.0 Blood Cells % Immature 0.060 H Granulocytes # Neutrophils # 13.7 H Lymphocytes # 1.6 Monocytes # 1.2 H Eosinophils # 0.0 Basophils # 0.1 Nucleated Red 0.0 Blood Cells # Sodium Level 139 Potassium Level 3.8 Chloride Level 98 Carbon Dioxide 35 H Level Anion Gap 6 Blood Urea 41 #H Nitrogen Creatinine 0.97 Est Glomerular > 60 Filtrat Rate mL/min Glucose Level 184 Calcium Level 8.6 Medications Medication Current Medications Ondansetron HCl (Zofran Inj) 4 mg Q6H PRN IV NAUSEA AND/OR VOMITING; Start 11/11/18 at 23:00 Acetaminophen (Tylenol Liquid) 650 mg Q6H PRN PO FEVER Last administered on 11/15/18at 05:30; Admin Dose 650 MG; Start 11/11/18 at 23:00 Morphine Sulfate (morphine) 2 mg Q4H PRN IV PAIN LEVEL 7-10 Last administered on 11/12/18at 05:26; Admin Dose 2 MG; Start 11/11/18 at 23:00 Insulin Aspart (Novolog Insulin Pen) NOVOLOG *MODERATE* ALGORI... Q4 SC Last administered on 11/15/18at 08:55; Admin Dose 4 UNIT; Start 11/12/18 at 05:00 Miscellaneous Information 1 ea NOTE XX ; Start 11/12/18 at 03:00 Glucose (Glutose) 15 gm Q15M PRN PO DECREASED GLUCOSE; Start 11/12/18 at 03:00 Glucose (Glutose) 22.5 gm Q15M PRN PO DECREASED GLUCOSE; Start 11/12/18 at 03:00 Dextrose (D50w Syringe) 25 ml Q15M PRN IV DECREASED GLUCOSE; Start 11/12/18 at 03:00 Dextrose (D50w Syringe) 50 ml Q15M PRN IV DECREASED GLUCOSE; Start 11/12/18 at 03:00 Glucagon (Glucagen) 1 mg Q15M PRN IM DECREASED GLUCOSE; Start 11/12/18 at 03:00 Glucose (Glutose) 15 gm Q15M PRN BUCCAL DECREASED GLUCOSE; Start 11/12/18 at 03:00 Acetaminophen (Tylenol Tab) 650 mg Q4H PRN GTB MILD PAIN LEVEL 1-3 Last administered on 11/14/18at 00:39; Admin Dose 650 MG; Start 11/12/18 at 09:30 Acetylcysteine (Mucomyst) 3 ml BID RESP THERAPY NEB Last administered on 11/15/18at 08:20; Admin Dose 3 ML; Start 11/12/18 at 10:00 Atorvastatin Calcium (Lipitor) 80 mg QHS GTB Last administered on 11/14/18at 20:54; Admin Dose 80 MG; Start 11/12/18 at 21:00 Bisacodyl (Dulcolax Supp) 10 mg Q24H PRN [place] CONSTIPATION; Start 11/12/18 at 09:30 Furosemide (Lasix) 20 mg DAILY GTB Last administered on 11/14/18at 09:15; Admin Dose 20 MG; Start 11/12/18 at 09:30 Hydralazine HCl (Apresoline) 25 mg Q6 GTB Last administered on 11/15/18at 05:08; Admin Dose 25 MG; Start 11/12/18 at 12:00 Lansoprazole (Prevacid) 30 mg BID@0600,1800 GTB Last administered on 11/15/18at 05:09; Admin Dose 30 MG; Start 11/12/18 at 18:00 Magnesium Hydroxide (Milk Of Mag) 30 ml Q24H GTB Last administered on 11/14/18 09:14; Admin Dose 30 ML; Start 11/12/18 at 09:30 Senna (Senokot) 2 tab BID GTB Last administered on 11/14/18 20:54; Admin Dose 2 TAB; Start 11/12/18 at 09:30 Sucralfate (Carafate Susp) 1 gm QID GTB Last administered on 11/14/18 20:53; Admin Dose 1 GM; Start 11/12/18 at 13:00 Valproate Sodium (Depakene Liquid Cup) 500 mg Q8 GTB Last administered on 11/15/18 05:12; Admin Dose 500 MG; Start 11/12/18 at 10:00 Insulin Human NPH (Humulin N) 28 unit Q8 SC Last administered on 11/15/18 05:15; Admin Dose 28 UNIT; Start 11/12/18 at 10:00 Sodium Biphosphate/ Sodium Phosphate (Fleet Enema) 133 ml DAILY PRN [place] ONSTIPATION; Start 11/12/18 at 10:00 Lisinopril (Zestril) 10 mg DAILY GTB Last administered on 11/14/18 09:16; Admin Dose 10 MG; Start 11/14/18 at 09:00 Albuterol/ Ipratropium (Duoneb) 3 ml Q6H RESP THERAPY PRN HHN SHORTNESS OF BREATH Last administered on 11/15/18 08:20; Admin Dose 3 ML; Start 11/13/18 at 21:00 Cefepime HCl 50 ml @ 100 mls/hr TID IVPB Last administered on 11/14/18 20:54; Admin Dose 100 MLS/HR; Start 11/14/18 at 13:00 Carvedilol (Coreg) 3.125 mg BID GTB Last administered on 11/14/18 20:54; Admin Dose 3.125 MG; Start 11/14/18 at 21:00 RAKESH CURTIS MD November 15, 2018 09:23
[2018-11-15] MEDS: CEFEPIME 1GM/50 ML (PMX) 50 ML IVPB SCH ×2 (09:24→12:52)
[2018-11-15] MEDS: SENNA TAB GTB SCH ×2 (09:24→21:36)
[2018-11-15] MEDS: SUCRALFATE (100 MG/ML) 10ML CUP GTB SCH ×4 (09:25→21:38)
[2018-11-15] MEDS: FUROSEMIDE 20 MG TAB GTB SCH (09:25)
[2018-11-15] MEDS: MAGNESIUM HYDROXIDE 30ML CUP GTB SCH (09:30)
--- NOTE | 2018-11-15 10:11 | CONS ---
Consult Date/Type/Reason Admit Date/Time November 11, 2018 at 22:51 Initial Consult Date 11/14/18 Type of Consult Pulmonary Requesting Provider: NIA DOMINGO MD Date/Time of Note DATE: 11/15/18 TIME: 10:09 Subjective Patient remains somnolent on cool aerosol. Objective Vital Signs Date Temp Pulse Resp B/P (MAP) Pulse Ox O2 O2 Flow FiO2 Time Delivery Rate 11/15/18 103 115/73 99 Trach 09:00 (87) Collar 11/15/18 20 10.0 40 08:24 11/15/18 100.8 08:04 Intake and Output 11/14/18 11/14/18 11/15/18 1515:00 23:00 07:00 IntakeIntake Total 890 ml 760 ml 540 ml OutputOutput Total 280 ml 340 ml 285 ml BalanceBalance 610 ml 420 ml 255 ml Exam GENERAL: Chronically ill-appearing gentleman on cool aerosol tracheostomy in place VITAL SIGNS: per chart NECK: Supple. No JVD or lymphadenopathy. CARDIAC EXAM: S1, S2. No added sounds or murmurs. CHEST: Diminished air entry bilaterally ABDOMEN: Soft, nontender. No guarding or rebound. EXTREMITIES: No cyanosis, clubbing edema +2. Vent Setting Fraction of Inspired Oxygen pe: 40 Results/Medications Result Diagram: 11/15/1842611/15/18426 Results 24 hrs Laboratory Tests Test 11/14/18 13:39 11/14/18 16:56 11/14/18 20:44 11/15/18 01:58 Bedside Glucose 210 166 164 158 Test 11/15/18 04:27 11/15/18 05:03 11/15/18 08:23 White Blood Count 16.7 #H Red Blood Count 4.66 L Hemoglobin 13.0 L Hematocrit 41.2 L Mean Corpuscular 88.4 Volume Mean Corpuscular 27.9 L Hemoglobin Mean Corpuscular 31.6 L Hemoglobin Concent Red Cell 16.6 H Distribution Width Platelet Count 252 Mean Platelet Volume 12.4 H Immature 0.400 Granulocytes % Neutrophils % 82.2 H Lymphocytes % 9.4 L Monocytes % 7.4 Eosinophils % 0.2 Basophils % 0.4 Nucleated Red Blood 0.0 Cells % Immature 0.060 H Granulocytes # Neutrophils # 13.7 H Lymphocytes # 1.6 Monocytes # 1.2 H Eosinophils # 0.0 Basophils # 0.1 Nucleated Red Blood 0.0 Cells # Sodium Level 139 Potassium Level 3.8 Chloride Level 98 Carbon Dioxide Level 35 H Anion Gap 6 Blood Urea Nitrogen 41 #H Creatinine 0.97 Est Glomerular > 60 Filtrat Rate mL/min Glucose Level 184 Calcium Level 8.6 Bedside Glucose 162 207 Medications Current Medications Ondansetron HCl (Zofran Inj) 4 mg Q6H PRN IV NAUSEA AND/OR VOMITING; Start 11/11/18 at 23:00 Acetaminophen (Tylenol Liquid) 650 mg Q6H PRN PO FEVER Last administered on 11/15/18at 05:30; Admin Dose 650 MG; Start 11/11/18 at 23:00 Morphine Sulfate (morphine) 2 mg Q4H PRN IV PAIN LEVEL 7-10 Last administered on 11/12/18at 05:26; Admin Dose 2 MG; Start 11/11/18 at 23:00 Insulin Aspart (Novolog Insulin Pen) NOVOLOG *MODERATE* ALGORI... Q4 SC Last administered on 11/15/18at 08:55; Admin Dose 4 UNIT; Start 11/12/18 at 05:00 Miscellaneous Information 1 ea NOTE XX ; Start 11/12/18 at 03:00 Glucose (Glutose) 15 gm Q15M PRN PO DECREASED GLUCOSE; Start 11/12/18 at 03:00 Glucose (Glutose) 22.5 gm Q15M PRN PO DECREASED GLUCOSE; Start 11/12/18 at 03:00 Dextrose (D50w Syringe) 25 ml Q15M PRN IV DECREASED GLUCOSE; Start 11/12/18 at 03:00 Dextrose (D50w Syringe) 50 ml Q15M PRN IV DECREASED GLUCOSE; Start 11/12/18 at 03:00 Glucagon (Glucagen) 1 mg Q15M PRN IM DECREASED GLUCOSE; Start 11/12/18 at 03:00 Glucose (Glutose) 15 gm Q15M PRN BUCCAL DECREASED GLUCOSE; Start 11/12/18 at 03:00 Acetaminophen (Tylenol Tab) 650 mg Q4H PRN GTB MILD PAIN LEVEL 1-3 Last administered on 11/14/18at 00:39; Admin Dose 650 MG; Start 11/12/18 at 09:30 Acetylcysteine (Mucomyst) 3 ml BID RESP THERAPY NEB Last administered on 11/15/18 08:20; Admin Dose 3 ML; Start 11/12/18 at 10:00 Atorvastatin Calcium (Lipitor) 80 mg QHS GTB Last administered on 11/14/18 20:54; Admin Dose 80 MG; Start 11/12/18 at 21:00 Bisacodyl (Dulcolax Supp) 10 mg Q24H PRN [place] CONSTIPATION; Start 11/12/18 at 09:30 Furosemide (Lasix) 20 mg DAILY GTB Last administered on 11/15/18 09:25; Admin Dose 20 MG; Start 11/12/18 at 09:30 Hydralazine HCl (Apresoline) 25 mg Q6 GTB Last administered on 11/15/18 05:08; Admin Dose 25 MG; Start 11/12/18 at 12:00 Lansoprazole (Prevacid) 30 mg BID@0600,1800 GTB Last administered on 11/15/18 05:09; Admin Dose 30 MG; Start 11/12/18 at 18:00 Magnesium Hydroxide (Milk Of Mag) 30 ml Q24H GTB Last administered on 11/14/18 09:14; Admin Dose 30 ML; Start 11/12/18 at 09:30 Senna (Senokot) 2 tab BID GTB Last administered on 11/15/18 09:24; Admin Dose 2 TAB; Start 11/12/18 at 09:30 Sucralfate (Carafate Susp) 1 gm QID GTB Last administered on 11/15/18 09:25; Admin Dose 1 GM; Start 11/12/18 at 13:00 Valproate Sodium (Depakene Liquid Cup) 500 mg Q8 GTB Last administered on 11/15/18 05:12; Admin Dose 500 MG; Start 11/12/18 at 10:00 Insulin Human NPH (Humulin N) 28 unit Q8 SC Last administered on 11/15/18 05:15; Admin Dose 28 UNIT; Start 11/12/18 at 10:00 Sodium Biphosphate/ Sodium Phosphate (Fleet Enema) 133 ml DAILY PRN VT CONSTIPATION; Start 11/12/18 at 10:00 Lisinopril (Zestril) 10 mg DAILY GTB Last administered on 11/14/18 09:16; Admin Dose 10 MG; Start 11/14/18 at 09:00 Albuterol/ Ipratropium (Duoneb) 3 ml Q6H RESP THERAPY PRN HHN SHORTNESS OF BREATH Last administered on 11/15/18at 08:20; Admin Dose 3 ML; Start 11/13/18 at 21:00 Cefepime HCl 50 ml @ 100 mls/hr TID IVPB Last administered on 11/15/18 09:24; Admin Dose 100 MLS/HR; Start 11/14/18 at 13:00 Carvedilol (Coreg) 3.125 mg BID GTB Last administered on 11/14/18at 20:54; Admin Dose 3.125 MG; Start 11/14/18 at 21:00 Assessment/Plan Hospital Course (Demo Recall) Assessment 1. Chronic respiratory failure with tracheostomy and T-tube 2. Acute on chronic cerebral hemorrhages. 3. Encephalopathy secondary to above 4. History of seizure disorder 5. Healthcare associated pneumonia Plan 1. Continue cool aerosol 2. Antibiotics for UTI and pneumonia 3. Tube feeding as tolerated 4. Case was discussed with neurosurgery requesting transfer back to [facility] where he had his previous neurosurgery/craniectomy performed. Critical care time 40 minutes. LULU GARCIA MD, [facility] November 15, 2018 10:11
[2018-11-15] MEDS ORDERED: VANCOMYCIN IV PER PHARMACY XX SCH (10:30)
--- NOTE | 2018-11-15 11:23 | CONS ---
Assessment/Plan Assessment/Plan Hospital Course (Demo Recall) IMPRESSION: 1. Abnormal electrocardiogram, assess for acute coronary syndrome.-neg trop x 3/EF 30-35% 2. Cardiomyopathy with decreased left ventricular ejection fraction. EF 30-35% by echo this admit 3. Congestive heart failure, systolic, chronic. 4. Hypertension, under reasonable control in the setting of acute hemorrhage. 5. Intracranial hemorrhage. 6. Chronic encephalopathy. 7. Prior craniectomy. 8. History of prior PTCA and stent placement. 9. Anemia. 10. Tachycardia-S tach today ? etiology, autonomic dysfunction 11.fevers Recc: -ICU -continue hydralazine/ACEI/coreg -s/p dose of IVP digoxin -Continue statin -ongoing NRSG eval -Rx fevers -Continue abx's and f/u cx data Consultation Date/Type/Reason Admit Date/Time November 11, 2018 at 22:51 Initial Consult Date 11/12/18 Type of Consult Cardiology Reason for Consultation Cardiomyopathy Requesting Provider: NIA DOMINGO MD Date/Time of Note DATE: 11/15/18 TIME: 11:19 Exam/Review of Systems Vital Signs Vitals Vital Signs Date Temp Pulse Resp B/P (MAP) Pulse Ox O2 O2 Flow FiO2 Time Delivery Rate 11/15/18 102 37 115/85 100 Trach 11:00 (95) Collar 11/15/18 10.0 40 08:24 11/15/18 100.8 08:04 Intake and Output 11/14/18 11/14/18 11/15/18 1515:00 23:00 07:00 IntakeIntake Total 890 ml 760 ml 540 ml OutputOutput Total 280 ml 340 ml 285 ml BalanceBalance 610 ml 420 ml 255 ml Exam Exam Review of Systems: CONSTITUTIONAL: No fevers, chills. PULMONARY: No sob CARDIOVASCULAR: No chest pain/palpitations GASTROINTESTINAL: No nausea/vomiting. GENITOURINARY: No hematuria/dysuria. MUSCULOSKELETAL: No myagias/arthalgias. PSYCHIATRIC: The patient denies depression. NEUROLOGIC: encephalopathic Constitutional: alert Psych: no complaints ENMT: mucosa pink and moist Neck: supple, jvd (9 cm water), other (trached) Respiratory: diminished breath sounds Cardiovascular: regular rate and rhythm Gastrointestinal: soft, non-tender Musculoskeletal: muscle tone (normal) Extremities: edema (none) Neurological: other (encephalopathic) Labs Result Diagram: 11/15/187 11/15/18 0427 Results 24hrs Laboratory Tests Test 11/14/18 13:39 11/14/18 16:56 11/14/18 20:44 11/15/18 01:58 Bedside Glucose 210 166 164 158 Test 11/15/18 04:27 11/15/18 05:03 11/15/18 08:23 White Blood Count 16.7 #H Red Blood Count 4.66 L Hemoglobin 13.0 L Hematocrit 41.2 L Mean Corpuscular 88.4 Volume Mean Corpuscular 27.9 L Hemoglobin Mean Corpuscular 31.6 L Hemoglobin Concent Red Cell 16.6 H Distribution Width Platelet Count 252 Mean Platelet Volume 12.4 H Immature 0.400 Granulocytes % Neutrophils % 82.2 H Lymphocytes % 9.4 L Monocytes % 7.4 Eosinophils % 0.2 Basophils % 0.4 Nucleated Red Blood 0.0 Cells % Immature 0.060 H Granulocytes # Neutrophils # 13.7 H Lymphocytes # 1.6 Monocytes # 1.2 H Eosinophils # 0.0 Basophils # 0.1 Nucleated Red Blood 0.0 Cells # Sodium Level 139 Potassium Level 3.8 Chloride Level 98 Carbon Dioxide Level 35 H Anion Gap 6 Blood Urea Nitrogen 41 #H Creatinine 0.97 Est Glomerular > 60 Filtrat Rate mL/min Glucose Level 184 Calcium Level 8.6 Bedside Glucose 162 207 Medications Medications Current Medications Ondansetron HCl (Zofran Inj) 4 mg Q6H PRN IV NAUSEA AND/OR VOMITING; Start 11/11/18 at 23:00 Acetaminophen (Tylenol Liquid) 650 mg Q6H PRN PO FEVER Last administered on 11/15/18at 05:30; Admin Dose 650 MG; Start 11/11/18 at 23:00 Morphine Sulfate (morphine) 2 mg Q4H PRN IV PAIN LEVEL 7-10 Last administered on 11/12/18at 05:26; Admin Dose 2 MG; Start 11/11/18 at 23:00 Insulin Aspart (Novolog Insulin Pen) NOVOLOG *MODERATE* ALGORI... Q4 SC Last administered on 11/15/18at 08:55; Admin Dose 4 UNIT; Start 11/12/18 at 05:00 Miscellaneous Information 1 ea NOTE XX ; Start 11/12/18 at 03:00 Glucose (Glutose) 15 gm Q15M PRN PO DECREASED GLUCOSE; Start 11/12/18 at 03:00 Glucose (Glutose) 22.5 gm Q15M PRN PO DECREASED GLUCOSE; Start 11/12/18 at 03:00 Dextrose (D50w Syringe) 25 ml Q15M PRN IV DECREASED GLUCOSE; Start 11/12/18 at 03:00 Dextrose (D50w Syringe) 50 ml Q15M PRN IV DECREASED GLUCOSE; Start 11/12/18 at 03:00 Glucagon (Glucagen) 1 mg Q15M PRN IM DECREASED GLUCOSE; Start 11/12/18 at 03:00 Glucose (Glutose) 15 gm Q15M PRN BUCCAL DECREASED GLUCOSE; Start 11/12/18 at 03:00 Acetaminophen (Tylenol Tab) 650 mg Q4H PRN GTB MILD PAIN LEVEL 1-3 Last administered on 11/14/18at 00:39; Admin Dose 650 MG; Start 11/12/18 at 09:30 Acetylcysteine (Mucomyst) 3 ml BID RESP THERAPY NEB Last administered on 11/15/18at 08:20; Admin Dose 3 ML; Start 11/12/18 at 10:00 Atorvastatin Calcium (Lipitor) 80 mg QHS GTB Last administered on 11/14/18at 20:54; Admin Dose 80 MG; Start 11/12/18 at 21:00 Bisacodyl (Dulcolax Supp) 10 mg Q24H PRN CA CONSTIPATION; Start 11/12/18 at 09:30 Furosemide (Lasix) 20 mg DAILY GTB Last administered on 11/15/18at 09:25; Admin Dose 20 MG; Start 11/12/18 at 09:30 Hydralazine HCl (Apresoline) 25 mg Q6 GTB Last administered on 11/15/18at 05:08; Admin Dose 25 MG; Start 11/12/18 at 12:00 Lansoprazole (Prevacid) 30 mg BID@0600,1800 GTB Last administered on 11/15/18at 05:09; Admin Dose 30 MG; Start 11/12/18 at 18:00 Magnesium Hydroxide (Milk Of Mag) 30 ml Q24H GTB Last administered on 11/14/18at 09:14; Admin Dose 30 ML; Start 11/12/18 at 09:30 Senna (Senokot) 2 tab BID GTB Last administered on 11/15/18 09:24; Admin Dose 2 TAB; Start 11/12/18 at 09:30 Sucralfate (Carafate Susp) 1 gm QID GTB Last administered on 11/15/18 09:25; Admin Dose 1 GM; Start 11/12/18 at 13:00 Valproate Sodium (Depakene Liquid Cup) 500 mg Q8 GTB Last administered on 11/15/18 05:12; Admin Dose 500 MG; Start 11/12/18 at 10:00 Insulin Human NPH (Humulin N) 28 unit Q8 SC Last administered on 11/15/18 05:15; Admin Dose 28 UNIT; Start 11/12/18 at 10:00 Sodium Biphosphate/ Sodium Phosphate (Fleet Enema) 133 ml DAILY PRN CA CONSTIPATION; Start 11/12/18 at 10:00 Lisinopril (Zestril) 10 mg DAILY GTB Last administered on 11/14/18 09:16; Admin Dose 10 MG; Start 11/14/18 at 09:00 Albuterol/ Ipratropium (Duoneb) 3 ml Q6H RESP THERAPY PRN HHN SHORTNESS OF BREATH Last administered on 11/15/18 08:20; Admin Dose 3 ML; Start 11/13/18 at 21:00 Cefepime HCl 50 ml @ 100 mls/hr TID IVPB Last administered on 11/15/18 09:24; Admin Dose 100 MLS/HR; Start 11/14/18 at 13:00 Carvedilol (Coreg) 3.125 mg BID GTB Last administered on 11/14/18at 20:54; Admin Dose 3.125 MG; Start 11/14/18 at 21:00 Vancomycin HCl (Vanco Iv Per Pharmacy) VANCOMYCIN PER PHARMACY PER PROTOCOL XX ; Start 11/15/18 at 10:30 MAE ROSALES November 15, 2018 11:23
[2018-11-15] MEDS ORDERED: VANCOMYCIN HCL 2 GM in SOD CHLORIDE 0.9% 500 ML IVPB SCH (14:30)
--- NOTE | 2018-11-15 15:39 | CONS ---
Assessment/Plan Assessment/Plan Hospital Course (Demo Recall) 1. Probable HCAP contributing to Sepsis 2. Likely fever also associated with Intra-parenchymal hemorrhage 3. Hx of CVA 4. Resp failure R: repeat pearson cx lactic procalc cont. vanco mrsa screen change cefepime to Zosyn will cont. to follow this critically ill gentleman closely with you Consultation Date/Type/Reason Admit Date/Time November 11, 2018 at 22:51 Date of Consultation: November 15, 2018 Type of Consult ID Reason for Consultation Severe Sepsis Requesting Provider: NIA DOMINGO MD Date/Time of Note DATE: 11/15/18 TIME: 15:35 cct 2.5h Hx of Present Illness A very sad case of 52 yo male with pmh of Massive CVA in 2018, s/p craniectomy, persistent resp failure, new onset acute large intraparenchymal hemorrhage within right frontoparietal lobe, persistent fever. He is unable to provide any hx. He has persistent fever despite vanco/cefepime. His WBC has been noted have increased today. A cxr reveals probable PNA. There are ongoing attempts for transfer to [facility]. patient unable to provide Past Medical History Home Meds Reported Medications Acetylcysteine* (Mucomyst*) 4 Ml Soln, 3 ML NEB BID, EA 06/30/18 Na Phos,M-B/Na Phos,Di-Ba (Fleet Enema Extra) 230 Ml Enema, 230 ML RC NEEDED, ENEMA 06/30/18 Bisacodyl* (Bisacodyl*) 10 Mg Supp, 10 MG LA Q24H PRN for NEEDED, SUPP 06/30/18 Magnesium Hydroxide* (Milk Of Magnesia*) 400 Mg/5 Ml Oral.susp, 30 ML GTB Q24H for CONSTIPATION, ML 06/30/18 Sennosides* (Senna Lax*) 8.6 Mg Tablet, 2 TAB GTB BID, TAB 06/30/18 Insulin Aspart* (Novolog Insulin Pen*) 100 Unit/Ml Soln, 0 SC .SLIDING SCALE AC, EA IF BS 0-120=0 UNITS,120-150=0 UNIT, 151-200=1 UNIT, 201-250=2 UNIT, 251-300=3 UNIT, 301-350=4 UNIT, 351-400=5 UNIT, ABOVE 400=6 UNIT AND CALL 06/30/18 Glucagon HCl (Glucagon HCl) 1 Mg Vial, 1 MG IJ NEEDED, VIAL IF BS BELOW 60 06/30/18 Insulin NPH Human Isophane (Humulin N) 100 Unit/1 Ml Vial, 28 UNIT SQ Q8H, VIAL 06/30/18 Hydrocodone/Acetaminophen ([place] 5-325 Tablet) 1 Each Tablet, 1 EACH GTB Q6H, TAB NEEDED FOR PAIN 06/30/18 Acetaminophen* (Tylenol*) 500 Mg Tab, 1000 MG GTB Q4H PRN for PAIN 4-6/10, TAB 06/30/18 Acetaminophen* (Tylenol*) 325 Mg Tablet, 650 MG GTB PRN PRN for TRACH TUBE CHANGE, TAB 06/30/18 Acetaminophen* (Tylenol*) 325 Mg Tablet, 650 MG GTB Q4H PRN for MILD PAIN LEVEL 1-3, TAB AND FEVER 100 AND ABOVE 06/30/18 Amino Acids/Protein Hydrolys (PRO-STAT LIQUID) 30 Ml Liquid.pkt, 30 ML GTB DAILY SUGAR FREE 06/30/18 Cran/Vitc/Mannose/Inulin/Brom (Uti-Stat Liquid) 3,875 Mg/30 Ml Liquid, 30 ML GTB DAILY 06/30/18 Hydralazine Hcl* (Hydralazine Hcl*) 25 Mg Tab, 25 MG GTB Q6H, #60 TAB 06/30/18 Furosemide* (Lasix* Liq) 40 Mg/5 Ml Cup, 20 MG GTB DAILY, EA 06/30/18 Carvedilol* (Carvedilol*) 3.125 Mg Tablet, 3.125 MG GTB BID, #60 TAB 06/30/18 Atorvastatin* (Atorvastatin*) 80 Mg Tablet, 80 MG GTB QHS, #30 TAB 06/30/18 Aspirin* (Aspirin* EC) 81 Mg Tablet.dr, 162 MG GTB DAILY, TAB 06/30/18 Valproic Acid* (Valproic Acid* Liq) 250 Mg/5 Ml Syrup, 10 ML GTB Q8H, ML 06/30/18 Sucralfate* (Carafate*) 1 Gm/10 Ml Susp, 1 GM GTB QID, EA 06/30/18 Lisinopril* (Lisinopril*) 5 Mg Tablet, 5 MG GTB DAILY, #30 TAB 06/30/18 Lansoprazole* (Lansoprazole*) 30 Mg Capsule.dr, 30 MG GTB BID, CAP 06/30/18 Lactobacillus Acidophilus (Acidophilus Lactobacillus) 1 Each Capsule, 1 EACH GTB BID, CAP 06/30/18 Medications Current Medications Ondansetron HCl (Zofran Inj) 4 mg Q6H PRN IV NAUSEA AND/OR VOMITING; Start 11/11/18 at 23:00 Acetaminophen (Tylenol Liquid) 650 mg Q6H PRN PO FEVER Last administered on 11/15/18at 12:52; Admin Dose 650 MG; Start 11/11/18 at 23:00 Morphine Sulfate (morphine) 2 mg Q4H PRN IV PAIN LEVEL 7-10 Last administered on 11/12/18at 05:26; Admin Dose 2 MG; Start 11/11/18 at 23:00 Insulin Aspart (Novolog Insulin Pen) NOVOLOG *MODERATE* ALGORI... Q4 SC Last administered on 11/15/18at 14:03; Admin Dose 2 UNIT; Start 11/12/18 at 05:00 Miscellaneous Information 1 ea NOTE XX ; Start 11/12/18 at 03:00 Glucose (Glutose) 15 gm Q15M PRN PO DECREASED GLUCOSE; Start 11/12/18 at 03:00 Glucose (Glutose) 22.5 gm Q15M PRN PO DECREASED GLUCOSE; Start 11/12/18 at 03:00 Dextrose (D50w Syringe) 25 ml Q15M PRN IV DECREASED GLUCOSE; Start 11/12/18 at 03:00 Dextrose (D50w Syringe) 50 ml Q15M PRN IV DECREASED GLUCOSE; Start 11/12/18 at 03:00 Glucagon (Glucagen) 1 mg Q15M PRN IM DECREASED GLUCOSE; Start 11/12/18 at 03:00 Glucose (Glutose) 15 gm Q15M PRN BUCCAL DECREASED GLUCOSE; Start 11/12/18 at 03:00 Acetaminophen (Tylenol Tab) 650 mg Q4H PRN GTB MILD PAIN LEVEL 1-3 Last administered on 11/14/18at 00:39; Admin Dose 650 MG; Start 11/12/18 at 09:30 Acetylcysteine (Mucomyst) 3 ml BID RESP THERAPY NEB Last administered on 11/15/18at 08:20; Admin Dose 3 ML; Start 11/12/18 at 10:00 Atorvastatin Calcium (Lipitor) 80 mg QHS GTB Last administered on 11/14/18 20:54; Admin Dose 80 MG; Start 11/12/18 at 21:00 Bisacodyl (Dulcolax Supp) 10 mg Q24H PRN [place] CONSTIPATION; Start 11/12/18 at 09:30 Furosemide (Lasix) 20 mg DAILY GTB Last administered on 11/15/18 09:25; Admin Dose 20 MG; Start 11/12/18 at 09:30 Hydralazine HCl (Apresoline) 25 mg Q6 GTB Last administered on 11/15/18 12:53; Admin Dose 25 MG; Start 11/12/18 at 12:00 Lansoprazole (Prevacid) 30 mg BID@0600,1800 GTB Last administered on 11/15/18 05:09; Admin Dose 30 MG; Start 11/12/18 at 18:00 Magnesium Hydroxide (Milk Of Mag) 30 ml Q24H GTB Last administered on 11/14/18 09:14; Admin Dose 30 ML; Start 11/12/18 at 09:30 Senna (Senokot) 2 tab BID GTB Last administered on 11/15/18 09:24; Admin Dose 2 TAB; Start 11/12/18 at 09:30 Sucralfate (Carafate Susp) 1 gm QID GTB Last administered on 11/15/18 12:52; Admin Dose 1 GM; Start 11/12/18 at 13:00 Valproate Sodium (Depakene Liquid Cup) 500 mg Q8 GTB Last administered on 11/15/18 05:12; Admin Dose 500 MG; Start 11/12/18 at 10:00 Insulin Human NPH (Humulin N) 28 unit Q8 SC Last administered on 11/15/18 14:19; Admin Dose 28 UNIT; Start 11/12/18 at 10:00 Sodium Biphosphate/ Sodium Phosphate (Fleet Enema) 133 ml DAILY PRN LA CONSTIPATION; Start 11/12/18 at 10:00 Lisinopril (Zestril) 10 mg DAILY GTB Last administered on 11/14/18 09:16; Admin Dose 10 MG; Start 11/14/18 at 09:00 Albuterol/ Ipratropium (Duoneb) 3 ml Q6H RESP THERAPY PRN HHN SHORTNESS OF BREATH Last administered on 11/15/18at 08:20; Admin Dose 3 ML; Start 11/13/18 at 21:00 Cefepime HCl 50 ml @ 100 mls/hr TID IVPB Last administered on 11/15/18at 12:52; Admin Dose 100 MLS/HR; Start 11/14/18 at 13:00 Carvedilol (Coreg) 3.125 mg BID GTB Last administered on 11/14/18at 20:54; Admin Dose 3.125 MG; Start 11/14/18 at 21:00 Vancomycin HCl (Vanco Iv Per Pharmacy) VANCOMYCIN PER PHARMACY PER PROTOCOL XX ; Start 11/15/18 at 10:30 Vancomycin HCl 2 gm/Sodium Chloride 500 ml @ 125 mls/hr ONCE IVPB ; Start 11/15/18 at 14:30; Stop 11/15/18 at 18:29 Vancomycin HCl 1.25 gm/Sodium Chloride 250 ml @ 83.333 mls/ hr Q12H IVPB ; Start 11/16/18 at 04:00 Allergies: Coded Allergies: No Known Drug Allergies (Verified Allergy, Mild, 06/30/18) Past Surgical History Past Surgical Hx: other Social History Smoking Status: Unknown if ever smoked Exam/Review of Systems Exam Vitals Vital Signs Date Temp Pulse Resp B/P (MAP) Pulse Ox O2 O2 Flow FiO2 Time Delivery Rate 11/15/18 97 20 98 Aerosol 10.0 40 14:46 T Tube 11/15/18 101.0 14:04 11/15/18 129/86 12:00 (100) Intake and Output 11/14/18 11/14/18 11/15/18 1515:00 23:00 07:00 IntakeIntake Total 890 ml 760 ml 540 ml OutputOutput Total 280 ml 340 ml 285 ml BalanceBalance 610 ml 420 ml 255 ml Constitutional: non-verbal Psych: no complaints Head: other (palpable swelling on right) Eyes: EOMI Cardiovascular: regular rate and rhythm Gastrointestinal: soft Neurological: [employer]IL II-XII intact Results Result Diagram: 11/15/18 0427 11/15/18 0427 Results 24hrs Laboratory Tests Test 11/14/18 16:56 11/14/18 20:44 11/15/18 01:58 11/15/18 04:27 Bedside Glucose 166 164 158 White Blood Count 16.7 #H Red Blood Count 4.66 L Hemoglobin 13.0 L Hematocrit 41.2 L Mean Corpuscular 88.4 Volume Mean Corpuscular 27.9 L Hemoglobin Mean Corpuscular 31.6 L Hemoglobin Concent Red Cell 16.6 H Distribution Width Platelet Count 252 Mean Platelet Volume 12.4 H Immature 0.400 Granulocytes % Neutrophils % 82.2 H Lymphocytes % 9.4 L Monocytes % 7.4 Eosinophils % 0.2 Basophils % 0.4 Nucleated Red Blood 0.0 Cells % Immature 0.060 H Granulocytes # Neutrophils # 13.7 H Lymphocytes # 1.6 Monocytes # 1.2 H Eosinophils # 0.0 Basophils # 0.1 Nucleated Red Blood 0.0 Cells # Sodium Level 139 Potassium Level 3.8 Chloride Level 98 Carbon Dioxide Level 35 H Anion Gap 6 Blood Urea Nitrogen 41 #H Creatinine 0.97 Est Glomerular > 60 Filtrat Rate mL/min Glucose Level 184 Calcium Level 8.6 Test 11/15/18 05:03 11/15/18 08:23 11/15/18 10:22 11/15/18 13:58 Bedside Glucose 162 207 170 Valproic Acid 56 (Depakene) Level Medications Medication Current Medications Ondansetron HCl (Zofran Inj) 4 mg Q6H PRN IV NAUSEA AND/OR VOMITING; Start 11/11/18 at 23:00 Acetaminophen (Tylenol Liquid) 650 mg Q6H PRN PO FEVER Last administered on 11/15/18at 12:52; Admin Dose 650 MG; Start 11/11/18 at 23:00 Morphine Sulfate (morphine) 2 mg Q4H PRN IV PAIN LEVEL 7-10 Last administered on 11/12/18at 05:26; Admin Dose 2 MG; Start 11/11/18 at 23:00 Insulin Aspart (Novolog Insulin Pen) NOVOLOG *MODERATE* ALGORI... Q4 SC Last administered on 11/15/18at 14:03; Admin Dose 2 UNIT; Start 11/12/18 at 05:00 Miscellaneous Information 1 ea NOTE XX ; Start 11/12/18 at 03:00 Glucose (Glutose) 15 gm Q15M PRN PO DECREASED GLUCOSE; Start 11/12/18 at 03:00 Glucose (Glutose) 22.5 gm Q15M PRN PO DECREASED GLUCOSE; Start 11/12/18 at 03:00 Dextrose (D50w Syringe) 25 ml Q15M PRN IV DECREASED GLUCOSE; Start 11/12/18 at 03:00 Dextrose (D50w Syringe) 50 ml Q15M PRN IV DECREASED GLUCOSE; Start 11/12/18 at 03:00 Glucagon (Glucagen) 1 mg Q15M PRN IM DECREASED GLUCOSE; Start 11/12/18 at 03:00 Glucose (Glutose) 15 gm Q15M PRN BUCCAL DECREASED GLUCOSE; Start 11/12/18 at 03:00 Acetaminophen (Tylenol Tab) 650 mg Q4H PRN GTB MILD PAIN LEVEL 1-3 Last administered on 11/14/18 00:39; Admin Dose 650 MG; Start 11/12/18 at 09:30 Acetylcysteine (Mucomyst) 3 ml BID RESP THERAPY NEB Last administered on 11/15/18 08:20; Admin Dose 3 ML; Start 11/12/18 at 10:00 Atorvastatin Calcium (Lipitor) 80 mg QHS GTB Last administered on 11/14/18at 20:54; Admin Dose 80 MG; Start 11/12/18 at 21:00 Bisacodyl (Dulcolax Supp) 10 mg Q24H PRN LA CONSTIPATION; Start 11/12/18 at 09:30 Furosemide (Lasix) 20 mg DAILY GTB Last administered on 11/15/18 09:25; Admin Dose 20 MG; Start 11/12/18 at 09:30 Hydralazine HCl (Apresoline) 25 mg Q6 GTB Last administered on 11/15/18 12:53; Admin Dose 25 MG; Start 11/12/18 at 12:00 Lansoprazole (Prevacid) 30 mg BID@0600,1800 GTB Last administered on 11/15/18 05:09; Admin Dose 30 MG; Start 11/12/18 at 18:00 Magnesium Hydroxide (Milk Of Mag) 30 ml Q24H GTB Last administered on 11/14/18 09:14; Admin Dose 30 ML; Start 11/12/18 at 09:30 Senna (Senokot) 2 tab BID GTB Last administered on 11/15/18 09:24; Admin Dose 2 TAB; Start 11/12/18 at 09:30 Sucralfate (Carafate Susp) 1 gm QID GTB Last administered on 11/15/18 12:52; Admin Dose 1 GM; Start 11/12/18 at 13:00 Valproate Sodium (Depakene Liquid Cup) 500 mg Q8 GTB Last administered on 10/21 05:12; Admin Dose 500 MG; Start 11/12/18 at 10:00 Insulin Human NPH (Humulin N) 28 unit Q8 SC Last administered on 11/15/18 14:19; Admin Dose 28 UNIT; Start 11/12/18 at 10:00 Sodium Biphosphate/ Sodium Phosphate (Fleet Enema) 133 ml DAILY PRN LA CONSTIPATION; Start 11/12/18 at 10:00 Lisinopril (Zestril) 10 mg DAILY GTB Last administered on 11/14/18 09:16; Admin Dose 10 MG; Start 11/14/18 at 09:00 Albuterol/ Ipratropium (Duoneb) 3 ml Q6H RESP THERAPY PRN HHN SHORTNESS OF BREATH Last administered on 11/15/18 08:20; Admin Dose 3 ML; Start 11/13/18 at 21:00 Cefepime HCl 50 ml @ 100 mls/hr TID IVPB Last administered on 11/15/18 12:52; Admin Dose 100 MLS/HR; Start 11/14/18 at 13:00 Carvedilol (Coreg) 3.125 mg BID GTB Last administered on 11/14/18 20:54; Admin Dose 3.125 MG; Start 11/14/18 at 21:00 Vancomycin HCl (Vanco Iv Per Pharmacy) VANCOMYCIN PER PHARMACY PER PROTOCOL XX ; Start 11/15/18 at 10:30 Vancomycin HCl 2 gm/Sodium Chloride 500 ml @ 125 mls/hr ONCE IVPB ; Start 11/15/18 at 14:30; Stop 11/15/18 at 18:29 Vancomycin HCl 1.25 gm/Sodium Chloride 250 ml @ 83.333 mls/ hr Q12H IVPB ; Start 11/16/18 at 04:00 MOLINA BONILLA MD November 15, 2018 15:39
--- NOTE | 2018-11-15 17:44 | PN ---
Date/Time of Note Date/Time of Note DATE: 11/15/18 TIME: 17:34 Assessment/Plan VTE Prophylaxis Risk score (from [facility] [place])>0 risk: 7 SCD applied (from [facility] [place]): Yes Pharmacological prophylaxis: NA/contraindicated Pharm contraindication: bleeding Lines/Catheters IV [facility] Type [facility]from [facility] [place] Lock Urinary Cath still in place: Yes Reason Cath still needed: urinary retention Assessment/Plan Hospital Course Patient with tracheostomy to T-tube with copious yellow mod of secretions, febrile, noncommunicative. Assessment/Plan -Intracranial hemorrhage, Dr. Espana is following in neurosurgery consultation. Pending consent for possible EVD. -Sepsis with fever and leukocytosis. Continue antibiotics per ID. Dr. Kiran is following in infection disease consultation. -Recent history of right hemicraniectomy, details are not available. -Chronic respiratory failure with tracheostomy, patient is currently on T-tube. -Healthcare associated pneumonia, continue antibiotics. -Coronary artery disease, status post PTCA with stent placement -Ischemic cardiomyopathy -Diabetes -Dysphagia with G-tube -Dyslipidemia -Obesity with BMI of 35.3 Further recommendations depends on clinical course. Plan of care discussed with Dr. Cortez. Result Diagram: 11/15/187 11/15/187 Results 24hrs Laboratory Tests Test 11/14/18 20:44 11/15/18 01:58 11/15/18 04:27 11/15/18 05:03 Bedside Glucose 164 158 162 White Blood Count 16.7 #H Red Blood Count 4.66 L Hemoglobin 13.0 L Hematocrit 41.2 L Mean Corpuscular 88.4 Volume Mean Corpuscular 27.9 L Hemoglobin Mean Corpuscular 31.6 L Hemoglobin Concent Red Cell 16.6 H Distribution Width Platelet Count 252 Mean Platelet Volume 12.4 H Immature 0.400 Granulocytes % Neutrophils % 82.2 H Lymphocytes % 9.4 L Monocytes % 7.4 Eosinophils % 0.2 Basophils % 0.4 Nucleated Red Blood 0.0 Cells % Immature 0.060 H Granulocytes # Neutrophils # 13.7 H Lymphocytes # 1.6 Monocytes # 1.2 H Eosinophils # 0.0 Basophils # 0.1 Nucleated Red Blood 0.0 Cells # Sodium Level 139 Potassium Level 3.8 Chloride Level 98 Carbon Dioxide Level 35 H Anion Gap 6 Blood Urea Nitrogen 41 #H Creatinine 0.97 Est Glomerular > 60 Filtrat Rate mL/min Glucose Level 184 Calcium Level 8.6 Test 11/15/18 08:23 11/15/18 10:22 11/15/18 13:58 11/15/18 15:47 Bedside Glucose 207 170 Valproic Acid 56 (Depakene) Level Lactic Acid Level 1.3 Procalcitonin 0.19 H Test 11/15/18 16:37 Bedside Glucose 150 Exam/Review of Systems Exam Vitals Vital Signs Date Temp Pulse Resp B/P (MAP) Pulse Ox O2 O2 Flow FiO2 Time Delivery Rate 11/15/18 99 16:00 11/15/18 26 120/71 100 Trach 15:00 (87) Collar 11/15/18 10.0 40 14:46 11/15/18 101.0 14:04 Intake and Output 11/14/18 11/14/18 11/15/18 1515:00 23:00 07:00 IntakeIntake Total 890 ml 760 ml 610 ml OutputOutput Total 280 ml 340 ml 325 ml BalanceBalance 610 ml 420 ml 285 ml Constitutional: non-verbal, frail Head: other (Status post right craniectomy) Eyes: PERRL Neck: other (Trach) Respiratory: diminished breath sounds Cardiovascular: regular rate and rhythm Gastrointestinal: soft, non-tender, other (G-tube) Musculoskeletal: muscle weakness Extremities: normal pulses Neurological: other (Noncommunicative) Skin: nl turgor Results Results 24hrs Laboratory Tests Test 11/14/18 20:44 11/15/18 01:58 11/15/18 04:27 11/15/18 05:03 Bedside Glucose 164 158 162 White Blood Count 16.7 #H Red Blood Count 4.66 L Hemoglobin 13.0 L Hematocrit 41.2 L Mean Corpuscular 88.4 Volume Mean Corpuscular 27.9 L Hemoglobin Mean Corpuscular 31.6 L Hemoglobin Concent Red Cell 16.6 H Distribution Width Platelet Count 252 Mean Platelet Volume 12.4 H Immature 0.400 Granulocytes % Neutrophils % 82.2 H Lymphocytes % 9.4 L Monocytes % 7.4 Eosinophils % 0.2 Basophils % 0.4 Nucleated Red Blood 0.0 Cells % Immature 0.060 H Granulocytes # Neutrophils # 13.7 H Lymphocytes # 1.6 Monocytes # 1.2 H Eosinophils # 0.0 Basophils # 0.1 Nucleated Red Blood 0.0 Cells # Sodium Level 139 Potassium Level 3.8 Chloride Level 98 Carbon Dioxide Level 35 H Anion Gap 6 Blood Urea Nitrogen 41 #H Creatinine 0.97 Est Glomerular > 60 Filtrat Rate mL/min Glucose Level 184 Calcium Level 8.6 Test 11/15/18 08:23 11/15/18 10:22 11/15/18 13:58 11/15/18 15:47 Bedside Glucose 207 170 Valproic Acid 56 (Depakene) Level Lactic Acid Level 1.3 Procalcitonin 0.19 H Test 11/15/18 16:37 Bedside Glucose 150 Medications Medication Current Medications Ondansetron HCl (Zofran Inj) 4 mg Q6H PRN IV NAUSEA AND/OR VOMITING; Start 11/11/18 at 23:00 Acetaminophen (Tylenol Liquid) 650 mg Q6H PRN PO FEVER Last administered on 11/15/18at 12:52; Admin Dose 650 MG; Start 11/11/18 at 23:00 Morphine Sulfate (morphine) 2 mg Q4H PRN IV PAIN LEVEL 7-10 Last administered on 11/12/18at 05:26; Admin Dose 2 MG; Start 11/11/18 at 23:00 Insulin Aspart (Novolog Insulin Pen) NOVOLOG *MODERATE* ALGORI... Q4 SC Last administered on 11/15/18at 16:41; Admin Dose 2 UNIT; Start 11/12/18 at 05:00 Miscellaneous Information 1 ea NOTE XX ; Start 11/12/18 at 03:00 Glucose (Glutose) 15 gm Q15M PRN PO DECREASED GLUCOSE; Start 11/12/18 at 03:00 Glucose (Glutose) 22.5 gm Q15M PRN PO DECREASED GLUCOSE; Start 11/12/18 at 03:00 Dextrose (D50w Syringe) 25 ml Q15M PRN IV DECREASED GLUCOSE; Start 11/12/18 at 03:00 Dextrose (D50w Syringe) 50 ml Q15M PRN IV DECREASED GLUCOSE; Start 11/12/18 at 03:00 Glucagon (Glucagen) 1 mg Q15M PRN IM DECREASED GLUCOSE; Start 11/12/18 at 03:00 Glucose (Glutose) 15 gm Q15M PRN BUCCAL DECREASED GLUCOSE; Start 11/12/18 at 03:00 Acetaminophen (Tylenol Tab) 650 mg Q4H PRN GTB MILD PAIN LEVEL 1-3 Last administered on 11/14/18 00:39; Admin Dose 650 MG; Start 11/12/18 at 09:30 Acetylcysteine (Mucomyst) 3 ml BID RESP THERAPY NEB Last administered on 11/15/18 08:20; Admin Dose 3 ML; Start 11/12/18 at 10:00 Atorvastatin Calcium (Lipitor) 80 mg QHS GTB Last administered on 11/14/18 20:54; Admin Dose 80 MG; Start 11/12/18 at 21:00 Bisacodyl (Dulcolax Supp) 10 mg Q24H PRN [place] CONSTIPATION; Start 11/12/18 at 09:30 Furosemide (Lasix) 20 mg DAILY GTB Last administered on 11/15/18 09:25; Admin Dose 20 MG; Start 11/12/18 at 09:30 Hydralazine HCl (Apresoline) 25 mg Q6 GTB Last administered on 11/15/18 12:53; Admin Dose 25 MG; Start 11/12/18 at 12:00 Lansoprazole (Prevacid) 30 mg BID@0600,1800 GTB Last administered on 11/15/18 05:09; Admin Dose 30 MG; Start 11/12/18 at 18:00 Magnesium Hydroxide (Milk Of Mag) 30 ml Q24H GTB Last administered on 11/14/18 09:14; Admin Dose 30 ML; Start 11/12/18 at 09:30 Senna (Senokot) 2 tab BID GTB Last administered on 11/15/18 09:24; Admin Dose 2 TAB; Start 11/12/18 at 09:30 Sucralfate (Carafate Susp) 1 gm QID GTB Last administered on 11/15/18 16:38; Admin Dose 1 GM; Start 11/12/18 at 13:00 Valproate Sodium (Depakene Liquid Cup) 500 mg Q8 GTB Last administered on 11/15/18 16:39; Admin Dose 500 MG; Start 11/12/18 at 10:00 Insulin Human NPH (Humulin N) 28 unit Q8 SC Last administered on 11/15/18 14:19; Admin Dose 28 UNIT; Start 11/12/18 at 10:00 Sodium Biphosphate/ Sodium Phosphate (Fleet Enema) 133 ml DAILY PRN [place] CONSTIPATION; Start 11/12/18 at 10:00 Lisinopril (Zestril) 10 mg DAILY GTB Last administered on 11/14/18at 09:16; Admin Dose 10 MG; Start 11/14/18 at 09:00 Albuterol/ Ipratropium (Duoneb) 3 ml Q6H RESP THERAPY PRN HHN SHORTNESS OF BREATH Last administered on 11/15/18at 08:20; Admin Dose 3 ML; Start 11/13/18 at 21:00 Carvedilol (Coreg) 3.125 mg BID GTB Last administered on 11/14/18at 20:54; Admin Dose 3.125 MG; Start 11/14/18 at 21:00 Vancomycin HCl (Vanco Iv Per Pharmacy) VANCOMYCIN PER PHARMACY PER PROTOCOL XX ; Start 11/15/18 at 10:30 Vancomycin HCl 2 gm/Sodium Chloride 500 ml @ 125 mls/hr ONCE IVPB Last administered on 11/15/18at 16:44; Admin Dose 125 MLS/HR; Start 11/15/18 at 14:30; Stop 11/15/18 at 18:29 Vancomycin HCl 1.25 gm/Sodium Chloride 250 ml @ 83.333 mls/ hr Q12H IVPB ; Start 11/16/18 at 04:00 Piperacillin Sod/ Tazobactam Sod 100 ml @ 25 mls/hr TID@02,10,18 IVPB ; Start 11/15/18 at 18:00; Status SETH RANDALL November 15, 2018 17:44
[2018-11-15] MEDS: PIPER-TAZO 3.375 GM IV (PMX) 100 ML IVPB SCH (21:35)
[2018-11-15] MEDS: ATORVASTATIN 80 MG TAB GTB SCH (21:36)
[2018-11-16] VITALS (48 sets, daily range): BP systolic 95–152; BP diastolic 61–88; PULSE 87–118; RESP 0–54
[2018-11-16] MEDS: INSULIN ASPART [NOVOLOG] 3 ML PEN SC SCH ×6 (01:00→21:54)
[2018-11-16] MEDS ORDERED: VANCOMYCIN HCL 1.25 GM in SOD CHLORIDE 0.9% 250 ML IVPB SCH (04:00)
[2018-11-16] MEDS: LANSOPRAZOLE 30 MG CAP GTB SCH ×2 (05:18→18:53)
[2018-11-16] MEDS: NPH, HUMAN INSULIN ISOPHANE 3ML VIAL SC SCH ×3 (05:18→21:58)
[2018-11-16] MEDS: VALPROIC ACID LIQUID CUP 250 MG/5 ML CUP GTB SCH ×3 (05:18→21:49)
[2018-11-16] MEDS: PIPER-TAZO 3.375 GM IV (PMX) 100 ML IVPB SCH ×3 (05:24→21:50)
[2018-11-16] MEDS: ACETAMINOPHEN 650MG/20.3ML CUP PO PRN ×3 (05:49→17:37)
--- NOTE | 2018-11-16 07:49 | CONS ---
Consult Date/Type/Reason Admit Date/Time November 11, 2018 at 22:51 Initial Consult Date 11/15/18 Requesting Provider: NIA DOMINGO MD Date/Time of Note DATE: 11/16/18 TIME: 07:46 Subjective NO acute events - pt comfortable - rate controlled - con't Resp Rx. Per nurse: NO F/C/N/V/ - BP Stable Objective Vitals Vital Signs Date Temp Pulse Resp B/P (MAP) Pulse Ox O2 O2 Flow FiO2 Time Delivery Rate 11/16/18 108 38 109/75 96 Trach 06:00 (86) Collar 11/16/18 102.1 05:49 11/16/18 5.0 28 04:45 Intake and Output 11/15/18 11/15/18 11/16/18 1515:00 23:00 07:00 IntakeIntake Total 660 ml 600 ml 1140 ml OutputOutput Total 320 ml 170 ml 245 ml BalanceBalance 340 ml 430 ml 895 ml Exam General: WN/WD/NAD, AOx 0 HEENT: Unicetric/atraumatic/EOMI (does not follow commands) NECK: trach Lymph: no lymphadenopathy HEART: regular with no S3, II/ systolic murmur at apex LUNGS: Coarse sounds ABD: soft, NT, ND, +BS : Intact, rectal bag Neuro: non focal SKIN: chronic changes EXT: trace edema Results/Medications Result Diagram: 11/16/18 0429 11/16/18 0429 Results 24 hrs Laboratory Tests Test 11/15/18 08:23 11/15/18 10:22 11/15/18 13:58 11/15/18 15:47 Bedside Glucose 207 170 Valproic Acid 56 (Depakene) Level Lactic Acid Level 1.3 Procalcitonin 0.19 H Test 11/15/18 16:37 11/15/18 20:37 11/16/18 04:29 11/16/18 05:09 Bedside Glucose 150 163 153 White Blood Count 15.5 H Red Blood Count 4.42 L Hemoglobin 12.4 L Hematocrit 38.9 L Mean Corpuscular 88.0 Volume Mean Corpuscular 28.1 L Hemoglobin Mean Corpuscular 31.9 L Hemoglobin Concent Red Cell 16.2 H Distribution Width Platelet Count 213 Mean Platelet Volume 12.3 H Immature 0.300 Granulocytes % Neutrophils % 78.3 H Lymphocytes % 9.9 L Monocytes % 9.4 Eosinophils % 1.7 Basophils % 0.4 Nucleated Red Blood 0.0 Cells % Immature 0.050 H Granulocytes # Neutrophils # 12.1 H Lymphocytes # 1.5 Monocytes # 1.5 H Eosinophils # 0.3 Basophils # 0.1 Nucleated Red Blood 0.0 Cells # Sodium Level 138 Potassium Level 3.7 Chloride Level 98 Carbon Dioxide Level 35 H Anion Gap 5 Blood Urea Nitrogen 38 H Creatinine 0.83 Est Glomerular > 60 Filtrat Rate mL/min Glucose Level 175 Calcium Level 8.3 L Phosphorus Level 3.0 Magnesium Level 2.7 H Home Meds Reported Medications Acetylcysteine* (Mucomyst*) 4 Ml Soln, 3 ML NEB BID, EA 06/30/18 Na Phos,M-B/Na Phos,Di-Ba (Fleet Enema Extra) 230 Ml Enema, 230 ML RC NEEDED, ENEMA 06/30/18 Bisacodyl* (Bisacodyl*) 10 Mg Supp, 10 MG ND Q24H PRN for NEEDED, SUPP 06/30/18 Magnesium Hydroxide* (Milk Of Magnesia*) 400 Mg/5 Ml Oral.susp, 30 ML GTB Q24H for CONSTIPATION, ML 06/30/18 Sennosides* (Senna Lax*) 8.6 Mg Tablet, 2 TAB GTB BID, TAB 06/30/18 Insulin Aspart* (Novolog Insulin Pen*) 100 Unit/Ml Soln, 0 SC .SLIDING SCALE AC, EA IF BS 0-120=0 UNITS,120-150=0 UNIT, 151-200=1 UNIT, 201-250=2 UNIT, 251-300=3 UNIT, 301-350=4 UNIT, 351-400=5 UNIT, ABOVE 400=6 UNIT AND CALL MD. 06/30/18 Glucagon HCl (Glucagon HCl) 1 Mg Vial, 1 MG IJ NEEDED, VIAL IF BS BELOW 60 06/30/18 Insulin NPH Human Isophane (Humulin N) 100 Unit/1 Ml Vial, 28 UNIT SQ Q8H, VIAL 06/30/18 Hydrocodone/Acetaminophen ([place] 5-325 Tablet) 1 Each Tablet, 1 EACH GTB Q6H, TAB NEEDED FOR PAIN 06/30/18 Acetaminophen* (Tylenol*) 500 Mg Tab, 1000 MG GTB Q4H PRN for PAIN 4-6/10, TAB 06/30/18 Acetaminophen* (Tylenol*) 325 Mg Tablet, 650 MG GTB PRN PRN for TRACH TUBE CHANGE, TAB 06/30/18 Acetaminophen* (Tylenol*) 325 Mg Tablet, 650 MG GTB Q4H PRN for MILD PAIN LEVEL 1-3, TAB AND FEVER 100 AND ABOVE 06/30/18 Amino Acids/Protein Hydrolys (PRO-STAT LIQUID) 30 Ml Liquid.pkt, 30 ML GTB DAILY SUGAR FREE 06/30/18 Cran/Vitc/Mannose/Inulin/Brom (Uti-Stat Liquid) 3,875 Mg/30 Ml Liquid, 30 ML GTB DAILY 06/30/18 Hydralazine Hcl* (Hydralazine Hcl*) 25 Mg Tab, 25 MG GTB Q6H, #60 TAB 06/30/18 Furosemide* (Lasix* Liq) 40 Mg/5 Ml Cup, 20 MG GTB DAILY, EA 06/30/18 Carvedilol* (Carvedilol*) 3.125 Mg Tablet, 3.125 MG GTB BID, #60 TAB 06/30/18 Atorvastatin* (Atorvastatin*) 80 Mg Tablet, 80 MG GTB QHS, #30 TAB 06/30/18 Aspirin* (Aspirin* EC) 81 Mg Tablet.dr, 162 MG GTB DAILY, TAB 06/30/18 Valproic Acid* (Valproic Acid* Liq) 250 Mg/5 Ml Syrup, 10 ML GTB Q8H, ML 06/30/18 Sucralfate* (Carafate*) 1 Gm/10 Ml Susp, 1 GM GTB QID, EA 06/30/18 Lisinopril* (Lisinopril*) 5 Mg Tablet, 5 MG GTB DAILY, #30 TAB 06/30/18 Lansoprazole* (Lansoprazole*) 30 Mg Capsule.dr, 30 MG GTB BID, CAP 06/30/18 Lactobacillus Acidophilus (Acidophilus Lactobacillus) 1 Each Capsule, 1 EACH GTB BID, CAP 06/30/18 Medications Current Medications Ondansetron HCl (Zofran Inj) 4 mg Q6H PRN IV NAUSEA AND/OR VOMITING; Start 11/11/18 at 23:00 Acetaminophen (Tylenol Liquid) 650 mg Q6H PRN PO FEVER Last administered on 11/16/18 05:49; Admin Dose 650 MG; Start 11/11/18 at 23:00 Morphine Sulfate (morphine) 2 mg Q4H PRN IV PAIN LEVEL 7-10 Last administered on 11/12/18 05:26; Admin Dose 2 MG; Start 11/11/18 at 23:00 Insulin Aspart (Novolog Insulin Pen) NOVOLOG *MODERATE* ALGORI... Q4 SC Last administered on 11/16/18 05:17; Admin Dose 2 UNIT; Start 11/12/18 at 05:00 Miscellaneous Information 1 ea NOTE XX ; Start 11/12/18 at 03:00 Glucose (Glutose) 15 gm Q15M PRN PO DECREASED GLUCOSE; Start 11/12/18 at 03:00 Glucose (Glutose) 22.5 gm Q15M PRN PO DECREASED GLUCOSE; Start 11/12/18 at 03:00 Dextrose (D50w Syringe) 25 ml Q15M PRN IV DECREASED GLUCOSE; Start 11/12/18 at 03:00 Dextrose (D50w Syringe) 50 ml Q15M PRN IV DECREASED GLUCOSE; Start 11/12/18 at 03:00 Glucagon (Glucagen) 1 mg Q15M PRN IM DECREASED GLUCOSE; Start 11/12/18 at 03:00 Glucose (Glutose) 15 gm Q15M PRN BUCCAL DECREASED GLUCOSE; Start 11/12/18 at 03:00 Acetaminophen (Tylenol Tab) 650 mg Q4H PRN GTB MILD PAIN LEVEL 1-3 Last administered on 11/14/18at 00:39; Admin Dose 650 MG; Start 11/12/18 at 09:30 Acetylcysteine (Mucomyst) 3 ml BID RESP THERAPY NEB Last administered on 11/15/18at 19:51; Admin Dose 3 ML; Start 11/12/18 at 10:00 Atorvastatin Calcium (Lipitor) 80 mg QHS GTB Last administered on 11/15/18at 21:36; Admin Dose 80 MG; Start 11/12/18 at 21:00 Bisacodyl (Dulcolax Supp) 10 mg Q24H PRN [place] CONSTIPATION; Start 11/12/18 at 09:30 Furosemide (Lasix) 20 mg DAILY GTB Last administered on 11/15/18at 09:25; Admin Dose 20 MG; Start 11/12/18 at 09:30 Hydralazine HCl (Apresoline) 25 mg Q6 GTB Last administered on 11/16/18 05:19; Admin Dose 25 MG; Start 11/12/18 at 12:00 Lansoprazole (Prevacid) 30 mg BID@0600,1800 GTB Last administered on 11/16/18 05:18; Admin Dose 30 MG; Start 11/12/18 at 18:00 Magnesium Hydroxide (Milk Of Mag) 30 ml Q24H GTB Last administered on 11/14/18 09:14; Admin Dose 30 ML; Start 11/12/18 at 09:30 Senna (Senokot) 2 tab BID GTB Last administered on 11/15/18 21:36; Admin Dose 2 TAB; Start 11/12/18 at 09:30 Sucralfate (Carafate Susp) 1 gm QID GTB Last administered on 11/15/18 21:38; Admin Dose 1 GM; Start 11/12/18 at 13:00 Valproate Sodium (Depakene Liquid Cup) 500 mg Q8 GTB Last administered on 11/16/18 05:18; Admin Dose 500 MG; Start 11/12/18 at 10:00 Insulin Human NPH (Humulin N) 28 unit Q8 SC Last administered on 11/16/18 05:18; Admin Dose 28 UNIT; Start 11/12/18 at 10:00 Sodium Biphosphate/ Sodium Phosphate (Fleet Enema) 133 ml DAILY PRN [place] CONSTIPATION; Start 11/12/18 at 10:00 Lisinopril (Zestril) 10 mg DAILY GTB Last administered on 11/14/18 09:16; Admin Dose 10 MG; Start 11/14/18 at 09:00 Albuterol/ Ipratropium (Duoneb) 3 ml Q6H RESP THERAPY PRN HHN SHORTNESS OF BREATH Last administered on 11/15/18 19:51; Admin Dose 3 ML; Start 11/13/18 at 21:00 Carvedilol (Coreg) 3.125 mg BID GTB Last administered on 11/15/18 21:36; Admin Dose 3.125 MG; Start 11/14/18 at 21:00 Vancomycin HCl (Vanco Iv Per Pharmacy) VANCOMYCIN PER PHARMACY PER PROTOCOL XX ; Start 11/15/18 at 10:30 Vancomycin HCl 1.25 gm/Sodium Chloride 250 ml @ 83.333 mls/ hr Q12H IVPB Last administered on 11/16/18at 05:24; Admin Dose 83.333 MLS/HR; Start 11/16/18 at 04:00 Piperacillin Sod/ Tazobactam Sod 100 ml @ 200 mls/hr Q8 IVPB Last administered on 11/16/18at 05:24; Admin Dose 200 MLS/HR; Start 11/15/18 at 18:00 Assessment/Plan Hospital Course (Demo Recall) 1. Abnormal electrocardiogram, assess for acute coronary syndrome.-neg trop x 3/EF 30-35% - r/o Mi - no active CP now. 2. Cardiomyopathy with decreased left ventricular ejection fraction. EF 30-35% by echo this admit - con't to keep euvolemic as tolerated. 3. Congestive heart failure, systolic, chronic - remove fluid as tolerated. 4. Hypertension, under reasonable control in the setting of acute hemorrhage. 5. Intracranial hemorrhage - no signs of cognitive improvement now. 6. Chronic encephalopathy- unchanged. 7. Prior craniectomy. 8. History of prior PTCA and stent placement. No further interventions planned. 9. Anemia. 10. Tachycardia-S tach today ? etiology, autonomic dysfunction - HR < 100 now. 11.fevers - on anti-Bx. KYLEIGH MENDENHALL MD November 16, 2018 07:49
--- NOTE | 2018-11-16 09:11 | CONS ---
Consult Date/Type/Reason Admit Date/Time November 11, 2018 at 22:51 Initial Consult Date 11/14/18 Type of Consult Pulmonary Requesting Provider: NIA DOMINGO MD Date/Time of Note DATE: 11/16/18 TIME: 09:10 Subjective No significant changes. Remains largely unchanged. Objective Vital Signs Date Temp Pulse Resp B/P (MAP) Pulse Ox O2 O2 Flow FiO2 Time Delivery Rate 11/16/18 92 31 103/67 98 Trach 07:00 (79) Collar 11/16/18 98.5 07:00 11/16/18 5.0 28 04:45 Intake and Output 11/15/18 11/15/18 11/16/18 1515:00 23:00 07:00 IntakeIntake Total 660 ml 600 ml 1140 ml OutputOutput Total 320 ml 170 ml 245 ml BalanceBalance 340 ml 430 ml 895 ml Exam GENERAL: Chronically ill-appearing gentleman on cool aerosol tracheostomy in place VITAL SIGNS: per chart NECK: Supple. No JVD or lymphadenopathy. CARDIAC EXAM: S1, S2. No added sounds or murmurs. CHEST: Diminished air entry bilaterally ABDOMEN: Soft, nontender. No guarding or rebound. EXTREMITIES: No cyanosis, clubbing edema +2. Vent Setting Fraction of Inspired Oxygen pe: 28 Results/Medications Result Diagram: 11/16/189 11/16/18 0429 Results 24 hrs Laboratory Tests Test 11/15/18 10:22 11/15/18 13:58 11/15/18 15:47 11/15/18 16:37 Valproic Acid 56 (Depakene) Level Bedside Glucose 170 150 Lactic Acid Level 1.3 Procalcitonin 0.19 H Test 11/15/18 20:37 11/16/18 04:29 11/16/18 05:09 Bedside Glucose 163 153 White Blood Count 15.5 H Red Blood Count 4.42 L Hemoglobin 12.4 L Hematocrit 38.9 L Mean Corpuscular 88.0 Volume Mean Corpuscular 28.1 L Hemoglobin Mean Corpuscular 31.9 L Hemoglobin Concent Red Cell 16.2 H Distribution Width Platelet Count 213 Mean Platelet Volume 12.3 H Immature 0.300 Granulocytes % Neutrophils % 78.3 H Lymphocytes % 9.9 L Monocytes % 9.4 Eosinophils % 1.7 Basophils % 0.4 Nucleated Red Blood 0.0 Cells % Immature 0.050 H Granulocytes # Neutrophils # 12.1 H Lymphocytes # 1.5 Monocytes # 1.5 H Eosinophils # 0.3 Basophils # 0.1 Nucleated Red Blood 0.0 Cells # Sodium Level 138 Potassium Level 3.7 Chloride Level 98 Carbon Dioxide Level 35 H Anion Gap 5 Blood Urea Nitrogen 38 H Creatinine 0.83 Est Glomerular > 60 Filtrat Rate mL/min Glucose Level 175 Calcium Level 8.3 L Phosphorus Level 3.0 Magnesium Level 2.7 H Medications Current Medications Ondansetron HCl (Zofran Inj) 4 mg Q6H PRN IV NAUSEA AND/OR VOMITING; Start 11/11/18 at 23:00 Acetaminophen (Tylenol Liquid) 650 mg Q6H PRN PO FEVER Last administered on 11/16/18at 05:49; Admin Dose 650 MG; Start 11/11/18 at 23:00 Morphine Sulfate (morphine) 2 mg Q4H PRN IV PAIN LEVEL 7-10 Last administered on 11/12/18at 05:26; Admin Dose 2 MG; Start 11/11/18 at 23:00 Insulin Aspart (Novolog Insulin Pen) NOVOLOG *MODERATE* ALGORI... Q4 SC Last administered on 11/16/18at 05:17; Admin Dose 2 UNIT; Start 11/12/18 at 05:00 Miscellaneous Information 1 ea NOTE XX ; Start 11/12/18 at 03:00 Glucose (Glutose) 15 gm Q15M PRN PO DECREASED GLUCOSE; Start 11/12/18 at 03:00 Glucose (Glutose) 22.5 gm Q15M PRN PO DECREASED GLUCOSE; Start 11/12/18 at 03:00 Dextrose (D50w Syringe) 25 ml Q15M PRN IV DECREASED GLUCOSE; Start 11/12/18 at 03:00 Dextrose (D50w Syringe) 50 ml Q15M PRN IV DECREASED GLUCOSE; Start 11/12/18 at 03:00 Glucagon (Glucagen) 1 mg Q15M PRN IM DECREASED GLUCOSE; Start 11/12/18 at 03:00 Glucose (Glutose) 15 gm Q15M PRN BUCCAL DECREASED GLUCOSE; Start 11/12/18 at 03:00 Acetaminophen (Tylenol Tab) 650 mg Q4H PRN GTB MILD PAIN LEVEL 1-3 Last administered on 11/14/18at 00:39; Admin Dose 650 MG; Start 11/12/18 at 09:30 Acetylcysteine (Mucomyst) 3 ml BID RESP THERAPY NEB Last administered on 11/15/18 19:51; Admin Dose 3 ML; Start 11/12/18 at 10:00 Atorvastatin Calcium (Lipitor) 80 mg QHS GTB Last administered on 11/15/18 21:36; Admin Dose 80 MG; Start 11/12/18 at 21:00 Bisacodyl (Dulcolax Supp) 10 mg Q24H PRN [place] CONSTIPATION; Start 11/12/18 at 09:30 Furosemide (Lasix) 20 mg DAILY GTB Last administered on 11/15/18 09:25; Admin Dose 20 MG; Start 11/12/18 at 09:30 Hydralazine HCl (Apresoline) 25 mg Q6 GTB Last administered on 11/16/18 05:19; Admin Dose 25 MG; Start 11/12/18 at 12:00 Lansoprazole (Prevacid) 30 mg BID@0600,1800 GTB Last administered on 11/16/18 05:18; Admin Dose 30 MG; Start 11/12/18 at 18:00 Magnesium Hydroxide (Milk Of Mag) 30 ml Q24H GTB Last administered on 11/14/18 09:14; Admin Dose 30 ML; Start 11/12/18 at 09:30 Senna (Senokot) 2 tab BID GTB Last administered on 11/15/18 21:36; Admin Dose 2 TAB; Start 11/12/18 at 09:30 Sucralfate (Carafate Susp) 1 gm QID GTB Last administered on 11/15/18 21:38; Admin Dose 1 GM; Start 11/12/18 at 13:00 Valproate Sodium (Depakene Liquid Cup) 500 mg Q8 GTB Last administered on 11/16/18 05:18; Admin Dose 500 MG; Start 11/12/18 at 10:00 Insulin Human NPH (Humulin N) 28 unit Q8 SC Last administered on 11/16/18 05:18; Admin Dose 28 UNIT; Start 11/12/18 at 10:00 Sodium Biphosphate/ Sodium Phosphate (Fleet Enema) 133 ml DAILY PRN [place] CONSTIPATION; Start 11/12/18 at 10:00 Lisinopril (Zestril) 10 mg DAILY GTB Last administered on 11/14/18at 09:16; Admin Dose 10 MG; Start 11/14/18 at 09:00 Albuterol/ Ipratropium (Duoneb) 3 ml Q6H RESP THERAPY PRN HHN SHORTNESS OF BREATH Last administered on 11/15/18at 19:51; Admin Dose 3 ML; Start 11/13/18 at 21:00 Carvedilol (Coreg) 3.125 mg BID GTB Last administered on 11/15/18at 21:36; Admin Dose 3.125 MG; Start 11/14/18 at 21:00 Vancomycin HCl (Vanco Iv Per Pharmacy) VANCOMYCIN PER PHARMACY PER PROTOCOL XX ; Start 11/15/18 at 10:30 Vancomycin HCl 1.25 gm/Sodium Chloride 250 ml @ 83.333 mls/ hr Q12H IVPB Last administered on 11/16/18at 05:24; Admin Dose 83.333 MLS/HR; Start 11/16/18 at 04:00 Piperacillin Sod/ Tazobactam Sod 100 ml @ 200 mls/hr Q8 IVPB Last administered on 11/16/18at 05:24; Admin Dose 200 MLS/HR; Start 11/15/18 at 18:00 Assessment/Plan Hospital Course (Demo Recall) Assessment 1. Chronic respiratory failure with tracheostomy and T-tube 2. Acute on chronic cerebral hemorrhages. 3. Encephalopathy secondary to above 4. History of seizure disorder, MRI pending. 5. Healthcare associated pneumonia Plan 1. Continue cool aerosol 2. Antibiotics for UTI and pneumonia 3. Tube feeding as tolerated 4. Case was discussed with neurosurgery, also discussed with primary team appar ently patient is not able to be transferred back to [facility]. Will require continuation of care at [facility]. Will defer coordination of care between primary team and neurosurgery. Respiratory status remains stable. Critical care time 40 minutes. LULU GARCIA MD, [facility] November 16, 2018 09:11
--- NOTE | 2018-11-16 09:18 | PN ---
DATE: 11/15/2018 ADDENDUM TO PROGRESS NOTE I was able to talk to the patient's Teresa on 11/12/2018 through number listed in my office record s [phone]. I had explained her about patient's intracranial bleed on top of his previous massiv e stroke. Poor prognosis for any meaningful recovery was explained to her. I also had explained to h er that the patient will be followed by Dr. Curtis from neurosurgery standpoint. Dictated By: NIA DOMNIGO MD AB/NTS Conf#: [id number] DID#: [id number] CC: RAKESH CURTIS MD; PARAS MURILLO MD;*EndCC*
[2018-11-16] MEDS: MAGNESIUM HYDROXIDE 30ML CUP GTB SCH (09:30)
[2018-11-16] MEDS: SUCRALFATE (100 MG/ML) 10ML CUP GTB SCH ×4 (10:46→21:49)
[2018-11-16] MEDS: SENNA TAB GTB SCH ×2 (10:46→21:00)
[2018-11-16] MEDS: LISINOPRIL 5 MG TAB GTB SCH (10:47)
[2018-11-16] MEDS: FUROSEMIDE 20 MG TAB GTB SCH (10:49)
[2018-11-16] MEDS: ALBUTEROL/IPRATROPIUM (NEB) 3 ML AMP HHN PRN (12:01)
[2018-11-16] MEDS: ACETYLCYSTEINE 20% 4 ML VIAL NEB SCH ×2 (12:01→20:33)
--- NOTE | 2018-11-16 14:15 | CONS ---
Assessment/Plan Assessment/Plan Hospital Course (Demo Recall) - probable HCAP due to providencia and pseudomonas - fever, probably due to HCAP and intra-parenchymal hemorrhage - Hx of CVA - chronic hypoxic resp failure - h/p trach recommendations - pending results: repeat cultures of blood and resp from 11/15/2018 - d/c IV vancomycin - continue pip/tazo (11/15/18-) management d/w Pt's BRADLEY Nicole the critical caret time I took to care for this Pt today was from 1330 to 1400 Consultation Date/Type/Reason Admit Date/Time November 11, 2018 at 22:51 Initial Consult Date 11/15/18 Type of Consult ID Requesting Provider: NIA DOMINGO MD Date/Time of Note DATE: 11/16/18 TIME: 14:11 24 HR Interval Summary Subjective hx not possible: pt non-verbal, pt critical, pt critical status Exam/Review of Systems Exam Vitals Vital Signs Date Temp Pulse Resp B/P (MAP) Pulse Ox O2 O2 Flow FiO2 Time Delivery Rate 11/16/18 101 12:00 11/16/18 98.8 22 98 Trach 12:00 Collar 11/16/18 5.0 28 08:00 Intake and Output 11/15/18 11/15/18 11/16/18 1515:00 23:00 07:00 IntakeIntake Total 660 ml 600 ml 1210 ml OutputOutput Total 320 ml 170 ml 345 ml BalanceBalance 340 ml 430 ml 865 ml Constitutional: non-verbal, frail Psych: other (unresponsive) Head: other (s/p craniectomy) Eyes: nl conjunctiva, other (R ptosis); No icteric ENMT: nl external ears & nose Neck: other (bri) Respiratory: diminished breath sounds Cardiovascular: other (tachycardic and regular) Gastrointestinal: soft, other (+rectal tube and PEG) Genitourinary - Male: other (FC) Musculoskeletal: No swelling Extremities: No edema Neurological: unresponsive Skin: No rash or lesions Results Result Diagram: 11/16/18 0429 11/16/18 0429 Results 24hrs Laboratory Tests Test 11/15/18 15:47 11/15/18 16:37 11/15/18 20:37 11/16/18 04:29 Lactic Acid Level 1.3 Procalcitonin 0.19 H Bedside Glucose 150 163 White Blood Count 15.5 H Red Blood Count 4.42 L Hemoglobin 12.4 L Hematocrit 38.9 L Mean Corpuscular 88.0 Volume Mean Corpuscular 28.1 L Hemoglobin Mean Corpuscular 31.9 L Hemoglobin Concent Red Cell 16.2 H Distribution Width Platelet Count 213 Mean Platelet Volume 12.3 H Immature 0.300 Granulocytes % Neutrophils % 78.3 H Lymphocytes % 9.9 L Monocytes % 9.4 Eosinophils % 1.7 Basophils % 0.4 Nucleated Red Blood 0.0 Cells % Immature 0.050 H Granulocytes # Neutrophils # 12.1 H Lymphocytes # 1.5 Monocytes # 1.5 H Eosinophils # 0.3 Basophils # 0.1 Nucleated Red Blood 0.0 Cells # Sodium Level 138 Potassium Level 3.7 Chloride Level 98 Carbon Dioxide Level 35 H Anion Gap 5 Blood Urea Nitrogen 38 H Creatinine 0.83 Est Glomerular > 60 Filtrat Rate mL/min Glucose Level 175 Calcium Level 8.3 L Phosphorus Level 3.0 Magnesium Level 2.7 H Test 11/16/18 05:09 11/16/18 09:46 11/16/18 13:23 Bedside Glucose 153 162 166 Medications Medication Current Medications Ondansetron HCl (Zofran Inj) 4 mg Q6H PRN IV NAUSEA AND/OR VOMITING; Start 11/11/18 at 23:00 Acetaminophen (Tylenol Liquid) 650 mg Q6H PRN PO FEVER Last administered on 11/16/18at 05:49; Admin Dose 650 MG; Start 11/11/18 at 23:00 Morphine Sulfate (morphine) 2 mg Q4H PRN IV PAIN LEVEL 7-10 Last administered on 11/12/18at 05:26; Admin Dose 2 MG; Start 11/11/18 at 23:00 Insulin Aspart (Novolog Insulin Pen) NOVOLOG *MODERATE* ALGORI... Q4 SC Last administered on 11/16/18at 13:25; Admin Dose 2 UNIT; Start 11/12/18 at 05:00 Miscellaneous Information 1 ea NOTE XX ; Start 11/12/18 at 03:00 Glucose (Glutose) 15 gm Q15M PRN PO DECREASED GLUCOSE; Start 11/12/18 at 03:00 Glucose (Glutose) 22.5 gm Q15M PRN PO DECREASED GLUCOSE; Start 11/12/18 at 03:00 Dextrose (D50w Syringe) 25 ml Q15M PRN IV DECREASED GLUCOSE; Start 11/12/18 at 03:00 Dextrose (D50w Syringe) 50 ml Q15M PRN IV DECREASED GLUCOSE; Start 11/12/18 at 03:00 Glucagon (Glucagen) 1 mg Q15M PRN IM DECREASED GLUCOSE; Start 11/12/18 at 03:00 Glucose (Glutose) 15 gm Q15M PRN BUCCAL DECREASED GLUCOSE; Start 11/12/18 at 03:00 Acetaminophen (Tylenol Tab) 650 mg Q4H PRN GTB MILD PAIN LEVEL 1-3 Last administered on 11/14/18 00:39; Admin Dose 650 MG; Start 11/12/18 at 09:30 Acetylcysteine (Mucomyst) 3 ml BID RESP THERAPY NEB Last administered on 11/16/18 12:01; Admin Dose 3 ML; Start 11/12/18 at 10:00 Atorvastatin Calcium (Lipitor) 80 mg QHS GTB Last administered on 11/15/18 21:36; Admin Dose 80 MG; Start 11/12/18 at 21:00 Bisacodyl (Dulcolax Supp) 10 mg Q24H PRN [place] CONSTIPATION; Start 11/12/18 at 09:30 Furosemide (Lasix) 20 mg DAILY GTB Last administered on 11/16/18 10:49; Admin Dose 20 MG; Start 11/12/18 at 09:30 Hydralazine HCl (Apresoline) 25 mg Q6 GTB Last administered on 11/16/18 12:48; Admin Dose 25 MG; Start 11/12/18 at 12:00 Lansoprazole (Prevacid) 30 mg BID@0600,1800 GTB Last administered on 11/16/18 05:18; Admin Dose 30 MG; Start 11/12/18 at 18:00 Magnesium Hydroxide (Milk Of Mag) 30 ml Q24H GTB Last administered on 11/16/18 09:30; Admin Dose 30 ML; Start 11/12/18 at 09:30 Senna (Senokot) 2 tab BID GTB Last administered on 11/16/18 10:46; Admin Dose 2 TAB; Start 11/12/18 at 09:30 Sucralfate (Carafate Susp) 1 gm QID GTB Last administered on 11/16/18 13:28; Admin Dose 1 GM; Start 11/12/18 at 13:00 Valproate Sodium (Depakene Liquid Cup) 500 mg Q8 GTB Last administered on 11/16/18 05:18; Admin Dose 500 MG; Start 11/12/18 at 10:00 Insulin Human NPH (Humulin N) 28 unit Q8 SC Last administered on 11/16/18 05:18; Admin Dose 28 UNIT; Start 11/12/18 at 10:00 Sodium Biphosphate/ Sodium Phosphate (Fleet Enema) 133 ml DAILY PRN [place] CONSTIPATION; Start 11/12/18 at 10:00 Lisinopril (Zestril) 10 mg DAILY GTB Last administered on 11/16/18 10:47; Admin Dose 10 MG; Start 11/14/18 at 09:00 Albuterol/ Ipratropium (Duoneb) 3 ml Q6H RESP THERAPY PRN HHN SHORTNESS OF BREATH Last administered on 11/16/18 12:01; Admin Dose 3 ML; Start 11/13/18 at 21:00 Carvedilol (Coreg) 3.125 mg BID GTB Last administered on 11/16/18 10:47; Admin Dose 3.125 MG; Start 11/14/18 at 21:00 Vancomycin HCl (Vanco Iv Per Pharmacy) VANCOMYCIN PER PHARMACY PER PROTOCOL XX ; Start 11/15/18 at 10:30 Vancomycin HCl 1.25 gm/Sodium Chloride 250 ml @ 83.333 mls/ hr Q12H IVPB Last administered on 11/16/18 05:24; Admin Dose 83.333 MLS/HR; Start 11/16/18 at 04:00 Piperacillin Sod/ Tazobactam Sod 100 ml @ 200 mls/hr Q8 IVPB Last administered on 11/16/18 05:24; Admin Dose 200 MLS/HR; Start 11/15/18 at 18:00 APRIL JORDAN M.D. November 16, 2018 14:15
--- NOTE | 2018-11-16 17:41 | CONS ---
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 Neurologically unchanged. Still febrile, on abx. Still awaiting MRI. Repeat CT tomorrow if unable to obtain. New number for obtained, will contact to discuss situation. May place EVD until afebrile for possible shunt placement. Consultation Date/Type/Reason Admit Date/Time November 11, 2018 at 22:51 Initial Consult Date Type of Consult Neurosurgery Requesting Provider: NIA DOMINGO MD Date/Time of Note DATE: 11/16/18 TIME: 17:37 24 HR Interval Summary Subjective hx not possible: pt non-verbal Exam/Review of Systems Exam Vitals Vital Signs Date Temp Pulse Resp B/P (MAP) Pulse Ox O2 O2 Flow FiO2 Time Delivery Rate 11/16/18 102.0 113 34 109/64 99 Trach 16:00 (79) Collar 11/16/18 5.0 28 16:00 Intake and Output 11/15/18 11/15/18 11/16/18 1515:00 23:00 07:00 IntakeIntake Total 660 ml 600 ml 1210 ml OutputOutput Total 320 ml 170 ml 345 ml BalanceBalance 340 ml 430 ml 865 ml Head: other (craniectomy site full.) Neurological: other (unchanged from yesterday) Results Result Diagram: 11/16/18 0429 11/16/18 0429 Results 24hrs Laboratory Tests Test 11/15/18 20:37 11/16/18 04:29 11/16/18 05:09 11/16/18 09:46 Bedside Glucose 163 153 162 White Blood Count 15.5 H Red Blood Count 4.42 L Hemoglobin 12.4 L Hematocrit 38.9 L Mean Corpuscular 88.0 Volume Mean Corpuscular 28.1 L Hemoglobin Mean Corpuscular 31.9 L Hemoglobin Concent Red Cell 16.2 H Distribution Width Platelet Count 213 Mean Platelet Volume 12.3 H Immature 0.300 Granulocytes % Neutrophils % 78.3 H Lymphocytes % 9.9 L Monocytes % 9.4 Eosinophils % 1.7 Basophils % 0.4 Nucleated Red Blood 0.0 Cells % Immature 0.050 H Granulocytes # Neutrophils # 12.1 H Lymphocytes # 1.5 Monocytes # 1.5 H Eosinophils # 0.3 Basophils # 0.1 Nucleated Red Blood 0.0 Cells # Sodium Level 138 Potassium Level 3.7 Chloride Level 98 Carbon Dioxide Level 35 H Anion Gap 5 Blood Urea Nitrogen 38 H Creatinine 0.83 Est Glomerular > 60 Filtrat Rate mL/min Glucose Level 175 Calcium Level 8.3 L Phosphorus Level 3.0 Magnesium Level 2.7 H Test 11/16/18 13:23 11/16/18 17:09 Bedside Glucose 166 210 Medications Medication Current Medications Ondansetron HCl (Zofran Inj) 4 mg Q6H PRN IV NAUSEA AND/OR VOMITING; Start 11/11/18 at 23:00 Acetaminophen (Tylenol Liquid) 650 mg Q6H PRN PO FEVER Last administered on 11/16/18at 05:49; Admin Dose 650 MG; Start 11/11/18 at 23:00 Morphine Sulfate (morphine) 2 mg Q4H PRN IV PAIN LEVEL 7-10 Last administered on 11/12/18at 05:26; Admin Dose 2 MG; Start 11/11/18 at 23:00 Insulin Aspart (Novolog Insulin Pen) NOVOLOG *MODERATE* ALGORI... Q4 SC Last administered on 11/16/18at 13:25; Admin Dose 2 UNIT; Start 11/12/18 at 05:00 Miscellaneous Information 1 ea NOTE XX ; Start 11/12/18 at 03:00 Glucose (Glutose) 15 gm Q15M PRN PO DECREASED GLUCOSE; Start 11/12/18 at 03:00 Glucose (Glutose) 22.5 gm Q15M PRN PO DECREASED GLUCOSE; Start 11/12/18 at 03 :00 Dextrose (D50w Syringe) 25 ml Q15M PRN IV DECREASED GLUCOSE; Start 11/12/18 at 03:00 Dextrose (D50w Syringe) 50 ml Q15M PRN IV DECREASED GLUCOSE; Start 11/12/18 at 03:00 Glucagon (Glucagen) 1 mg Q15M PRN IM DECREASED GLUCOSE; Start 11/12/18 at 03:00 Glucose (Glutose) 15 gm Q15M PRN BUCCAL DECREASED GLUCOSE; Start 11/12/18 at 03:00 Acetaminophen (Tylenol Tab) 650 mg Q4H PRN GTB MILD PAIN LEVEL 1-3 Last administered on 11/14/18at 00:39; Admin Dose 650 MG; Start 11/12/18 at 09:30 Acetylcysteine (Mucomyst) 3 ml BID RESP THERAPY NEB Last administered on 11/16/18 12:01; Admin Dose 3 ML; Start 11/12/18 at 10:00 Atorvastatin Calcium (Lipitor) 80 mg QHS GTB Last administered on 11/15/18 21:36; Admin Dose 80 MG; Start 11/12/18 at 21:00 Bisacodyl (Dulcolax Supp) 10 mg Q24H PRN [place] CONSTIPATION; Start 11/12/18 at 09:30 Furosemide (Lasix) 20 mg DAILY GTB Last administered on 11/16/18 10:49; Admin Dose 20 MG; Start 11/12/18 at 09:30 Hydralazine HCl (Apresoline) 25 mg Q6 GTB Last administered on 11/16/18 12:48; Admin Dose 25 MG; Start 11/12/18 at 12:00 Lansoprazole (Prevacid) 30 mg BID@0600,1800 GTB Last administered on 11/16/18 05:18; Admin Dose 30 MG; Start 11/12/18 at 18:00 Magnesium Hydroxide (Milk Of Mag) 30 ml Q24H GTB Last administered on 11/16/18 09:30; Admin Dose 30 ML; Start 11/12/18 at 09:30 Senna (Senokot) 2 tab BID GTB Last administered on 11/16/18 10:46; Admin Dose 2 TAB; Start 11/12/18 at 09:30 Sucralfate (Carafate Susp) 1 gm QID GTB Last administered on 11/16/18 13:28; Admin Dose 1 GM; Start 11/12/18 at 13:00 Valproate Sodium (Depakene Liquid Cup) 500 mg Q8 GTB Last administered on 11/16/18 15:08; Admin Dose 500 MG; Start 11/12/18 at 10:00 Insulin Human NPH (Humulin N) 28 unit Q8 SC Last administered on 11/16/18 15:10; Admin Dose 28 UNIT; Start 11/12/18 at 10:00 Sodium Biphosphate/ Sodium Phosphate (Fleet Enema) 133 ml DAILY PRN [place] CONST IPATION; Start 11/12/18 at 10:00 Lisinopril (Zestril) 10 mg DAILY GTB Last administered on 11/16/18 10:47; Admin Dose 10 MG; Start 11/14/18 at 09:00 Albuterol/ Ipratropium (Duoneb) 3 ml Q6H RESP THERAPY PRN HHN SHORTNESS OF BREATH Last administered on 11/16/18 12:01; Admin Dose 3 ML; Start 11/13/18 at 21:00 Carvedilol (Coreg) 3.125 mg BID GTB Last administered on 11/16/18 10:47; Admin Dose 3.125 MG; Start 11/14/18 at 21:00 Piperacillin Sod/ Tazobactam Sod 100 ml @ 200 mls/hr Q8 IVPB Last administered on 11/16/18 14:00; Admin Dose 200 MLS/HR; Start 11/15/18 at 18:00 RAKESH CURTIS MD November 16, 2018 17:41
--- NOTE | 2018-11-16 19:04 | PN ---
Date/Time of Note Date/Time of Note DATE: 11/16/18 TIME: 19:00 Assessment/Plan VTE Prophylaxis Risk score (from [facility] [place]0 risk: 6 SCD applied (from [facility] [place]): Yes Pharmacological prophylaxis: NA/contraindicated Pharm contraindication: bleeding Lines/Catheters IV [facility] Type [facility]from [facility] [place] [employer] line still needed: Yes Urinary Cath still in place: Yes Reason Cath still needed: urinary retention Assessment/Plan Hospital Course Patient continues to spike fever continued on antibiotics and antipyretics. Patient's signed consent for MRI of the brain which is currently pending. Assessment/Plan -Intracranial hemorrhage, Dr. Espana is following in neurosurgery consultation. Possible EVD. -Sepsis with fever and leukocytosis most likely secondary to HCAP. Continue antibiotics per ID. Dr. Kiran is following in infection disease consultation. -Recent history of right hemicraniectomy, details are not available. Records requested. -Chronic respiratory failure with tracheostomy, patient is currently on T-tube. -Healthcare associated pneumonia, continue antibiotics. -Coronary artery disease, status post PTCA with stent placement -Ischemic cardiomyopathy -Diabetes -Dysphagia with G-tube -Dyslipidemia -Obesity with BMI of 35.3 Further recommendations depends on clinical course. Plan of care discussed with Dr. Cortez. Result Diagram: 11/16/18 0429 11/16/189 Results 24hrs Laboratory Tests Test 11/15/18 20:37 11/16/18 04:29 11/16/18 05:09 11/16/18 09:46 Bedside Glucose 163 153 162 White Blood Count 15.5 H Red Blood Count 4.42 L Hemoglobin 12.4 L Hematocrit 38.9 L Mean Corpuscular 88.0 Volume Mean Corpuscular 28.1 L Hemoglobin Mean Corpuscular 31.9 L Hemoglobin Concent Red Cell 16.2 H Distribution Width Platelet Count 213 Mean Platelet Volume 12.3 H Immature 0.300 Granulocytes % Neutrophils % 78.3 H Lymphocytes % 9.9 L Monocytes % 9.4 Eosinophils % 1.7 Basophils % 0.4 Nucleated Red Blood 0.0 Cells % Immature 0.050 H Granulocytes # Neutrophils # 12.1 H Lymphocytes # 1.5 Monocytes # 1.5 H Eosinophils # 0.3 Basophils # 0.1 Nucleated Red Blood 0.0 Cells # Sodium Level 138 Potassium Level 3.7 Chloride Level 98 Carbon Dioxide Level 35 H Anion Gap 5 Blood Urea Nitrogen 38 H Creatinine 0.83 Est Glomerular > 60 Filtrat Rate mL/min Glucose Level 175 Calcium Level 8.3 L Phosphorus Level 3.0 Magnesium Level 2.7 H Test 11/16/18 13:23 11/16/18 17:09 Bedside Glucose 166 210 Exam/Review of Systems Exam Vitals Vital Signs Date Temp Pulse Resp B/P (MAP) Pulse Ox O2 O2 Flow FiO2 Time Delivery Rate 11/16/18 104 29 111/71 98 18:30 (84) 11/16/18 99.5 18:22 11/16/18 Trach 16:00 Collar 11/16/18 5.0 28 16:00 Intake and Output 11/15/18 11/15/18 11/16/18 1515:00 23:00 07:00 IntakeIntake Total 660 ml 600 ml 1210 ml OutputOutput Total 320 ml 170 ml 345 ml BalanceBalance 340 ml 430 ml 865 ml Exam Constitutional: non-verbal, frail Head: other (Status post right craniectomy) Eyes: PERRL Neck: other (Trach) Respiratory: diminished breath sounds Cardiovascular: regular rate and rhythm Gastrointestinal: soft, non-tender, other (G-tube) Musculoskeletal: muscle weakness Extremities: normal pulses Neurological: other (Noncommunicative) Skin: nl turgor Results Results 24hrs Laboratory Tests Test 11/15/18 20:37 11/16/18 04:29 11/16/18 05:09 11/16/18 09:46 Bedside Glucose 163 153 162 White Blood Count 15.5 H Red Blood Count 4.42 L Hemoglobin 12.4 L Hematocrit 38.9 L Mean Corpuscular 88.0 Volume Mean Corpuscular 28.1 L Hemoglobin Mean Corpuscular 31.9 L Hemoglobin Concent Red Cell 16.2 H Distribution Width Platelet Count 213 Mean Platelet Volume 12.3 H Immature 0.300 Granulocytes % Neutrophils % 78.3 H Lymphocytes % 9.9 L Monocytes % 9.4 Eosinophils % 1.7 Basophils % 0.4 Nucleated Red Blood 0.0 Cells % Immature 0.050 H Granulocytes # Neutrophils # 12.1 H Lymphocytes # 1.5 Monocytes # 1.5 H Eosinophils # 0.3 Basophils # 0.1 Nucleated Red Blood 0.0 Cells # Sodium Level 138 Potassium Level 3.7 Chloride Level 98 Carbon Dioxide Level 35 H Anion Gap 5 Blood Urea Nitrogen 38 H Creatinine 0.83 Est Glomerular > 60 Filtrat Rate mL/min Glucose Level 175 Calcium Level 8.3 L Phosphorus Level 3.0 Magnesium Level 2.7 H Test 11/16/18 13:23 11/16/18 17:09 Bedside Glucose 166 210 Medications Medication Current Medications Ondansetron HCl (Zofran Inj) 4 mg Q6H PRN IV NAUSEA AND/OR VOMITING; Start 11/11/18 at 23:00 Acetaminophen (Tylenol Liquid) 650 mg Q6H PRN PO FEVER Last administered on 11/16/18at 17:37; Admin Dose 650 MG; Start 11/11/18 at 23:00 Morphine Sulfate (morphine) 2 mg Q4H PRN IV PAIN LEVEL 7-10 Last administered on 11/12/18at 05:26; Admin Dose 2 MG; Start 11/11/18 at 23:00 Insulin Aspart (Novolog Insulin Pen) NOVOLOG *MODERATE* ALGORI... Q4 SC Last administered on 11/16/18at 17:35; Admin Dose 4 UNIT; Start 11/12/18 at 05:00 Miscellaneous Information 1 ea NOTE XX ; Start 11/12/18 at 03:00 Glucose (Glutose) 15 gm Q15M PRN PO DECREASED GLUCOSE; Start 11/12/18 at 03:00 Glucose (Glutose) 22.5 gm Q15M PRN PO DECREASED GLUCOSE; Start 11/12/18 at 03:00 Dextrose (D50w Syringe) 25 ml Q15M PRN IV DECREASED GLUCOSE; Start 11/12/18 at 03:00 Dextrose (D50w Syringe) 50 ml Q15M PRN IV DECREASED GLUCOSE; Start 11/12/18 at 03:00 Glucagon (Glucagen) 1 mg Q15M PRN IM DECREASED GLUCOSE; Start 11/12/18 at 03:00 Glucose (Glutose) 15 gm Q15M PRN BUCCAL DECREASED GLUCOSE; Start 11/12/18 at 03:00 Acetaminophen (Tylenol Tab) 650 mg Q4H PRN GTB MILD PAIN LEVEL 1-3 Last administered on 11/14/18at 00:39; Admin Dose 650 MG; Start 11/12/18 at 09:30 Acetylcysteine (Mucomyst) 3 ml BID RESP THERAPY NEB Last administered on 11/16/18at 12:01; Admin Dose 3 ML; Start 11/12/18 at 10:00 Atorvastatin Calcium (Lipitor) 80 mg QHS GTB Last administered on 11/15/18 21:36; Admin Dose 80 MG; Start 11/12/18 at 21:00 Bisacodyl (Dulcolax Supp) 10 mg Q24H PRN [place] CONSTIPATION; Start 11/12/18 at 09:30 Furosemide (Lasix) 20 mg DAILY GTB Last administered on 11/16/18 10:49; Admin Dose 20 MG; Start 11/12/18 at 09:30 Hydralazine HCl (Apresoline) 25 mg Q6 GTB Last administered on 11/16/18 18:53; Admin Dose 25 MG; Start 11/12/18 at 12:00 Lansoprazole (Prevacid) 30 mg BID@0600,1800 GTB Last administered on 11/16/18 18:53; Admin Dose 30 MG; Start 11/12/18 at 18:00 Magnesium Hydroxide (Milk Of Mag) 30 ml Q24H GTB Last administered on 11/16/18 09:30; Admin Dose 30 ML; Start 11/12/18 at 09:30 Senna (Senokot) 2 tab BID GTB Last administered on 11/16/18 10:46; Admin Dose 2 TAB; Start 11/12/18 at 09:30 Sucralfate (Carafate Susp) 1 gm QID GTB Last administered on 11/16/18 17:33; Admin Dose 1 GM; Start 11/12/18 at 13:00 Valproate Sodium (Depakene Liquid Cup) 500 mg Q8 GTB Last administered on 11/16/18 15:08; Admin Dose 500 MG; Start 11/12/18 at 10:00 Insulin Human NPH (Humulin N) 28 unit Q8 SC Last administered on 11/16/18 15:10; Admin Dose 28 UNIT; Start 11/12/18 at 10:00 Sodium Biphosphate/ Sodium Phosphate (Fleet Enema) 133 ml DAILY PRN [place] CONSTIPATION; Start 11/12/18 at 10:00 Lisinopril (Zestril) 10 mg DAILY GTB Last administered on 11/16/18 10:47; Admin Dose 10 MG; Start 11/14/18 at 09:00 Albuterol/ Ipratropium (Duoneb) 3 ml Q6H RESP THERAPY PRN HHN SHORTNESS OF BREATH Last administered on 11/16/18 12:01; Admin Dose 3 ML; Start 11/13/18 at 21:00 Carvedilol (Coreg) 3.125 mg BID GTB Last administered on 11/16/18at 10:47; Admin Dose 3.125 MG; Start 11/14/18 at 21:00 Piperacillin Sod/ Tazobactam Sod 100 ml @ 200 mls/hr Q8 IVPB Last administered on 11/16/18at 14:00; Admin Dose 200 MLS/HR; Start 11/15/18 at 18:00 SETH AVENDANO November 16, 2018 19:04
[2018-11-16] MEDS: ATORVASTATIN 80 MG TAB GTB SCH (21:49)
[2018-11-17] VITALS (40 sets, daily range): BP systolic 89–154; BP diastolic 57–101; PULSE 78–198; RESP 14–41
[2018-11-17] MEDS: INSULIN ASPART [NOVOLOG] 3 ML PEN SC SCH ×6 (01:00→21:00)
[2018-11-17] MEDS: PIPER-TAZO 3.375 GM IV (PMX) 100 ML IVPB SCH ×3 (05:19→21:12)
[2018-11-17] MEDS: VALPROIC ACID LIQUID CUP 250 MG/5 ML CUP GTB SCH ×3 (05:19→21:36)
[2018-11-17] MEDS: NPH, HUMAN INSULIN ISOPHANE 3ML VIAL SC SCH ×3 (05:28→21:21)
[2018-11-17] MEDS: LANSOPRAZOLE 30 MG CAP GTB SCH ×2 (05:29→17:57)
[2018-11-17] MEDS: ACETAMINOPHEN 325 MG TAB GTB PRN (05:29)
--- NOTE | 2018-11-17 08:07 | CONS ---
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 Etiology of ICH still unclear. Likely hemorrhagic stroke. MRI reviewed, awaiting radiologist's interpretation. This shows similar findings of MRI but also evidence of areas of prior left hemispheric SAH/ICH. There is also brain stem and pontine increased T2 on right. No findings c/w transependymal edema. Ventricular size appears stable,no obstruction. Ventriculomegaly likely due to atrophy as well as chronic cranial defect, no necessarily significantly elevated ICP. Base upon MRI, significant brain damage has occurred. Prognosis for independent recovery nil, and even at best will remain hemiplegic with significant cognitive deficits. Attempted to call Beatriz Andrews again and no answer so left a message. Hold intervention until d/w legal member service representative for patient. Palliation may be best for this patient as he has poor prognosis for recovery even before sustaining the large ICH. Patient still febrile, w/u in progress but + GPC in blood. Consultation Date/Type/Reason Admit Date/Time November 11, 2018 at 22:51 Initial Consult Date Type of Consult Neurosurgery Requesting Provider: NIA DOMINGO MD Date/Time of Note DATE: 11/17/18 TIME: 07:54 24 HR Interval Summary Subjective hx not possible: pt non-verbal Exam/Review of Systems Exam Vitals Vital Signs Date Temp Pulse Resp B/P (MAP) Pulse Ox O2 O2 Flow FiO2 Time Delivery Rate 11/17/18 84 28 100 07:30 11/17/18 98.9 113/68 Trach 07:00 (83) Collar 11/17/18 6.0 28 05:45 Intake and Output 11/16/18 11/16/18 11/17/18 1515:00 23:00 07:00 IntakeIntake Total 710 ml 810 ml 890 ml OutputOutput Total 780 ml 480 ml 340 ml BalanceBalance -70 ml 330 ml 550 ml Head: other (craniectomy defect full) Neurological: other (may minimally open eyes to sternal rub. Moves RUE semipurposefully. 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 Left hemiplegia. PERRL) Results Result Diagram: 11/17/18 0432 11/16/18 0429 Results 24hrs Laboratory Tests Test 11/16/18 09:46 11/16/18 13:23 11/16/18 17:09 11/16/18 21:52 Bedside Glucose 162 166 210 197 Test 11/17/18 01:37 11/17/18 04:32 11/17/18 05:18 Bedside Glucose 137 121 White Blood Count 11.1 #H Red Blood Count 4.40 L Hemoglobin 12.2 L Hematocrit 38.6 L Mean Corpuscular 87.7 Volume Mean Corpuscular 27.7 L Hemoglobin Mean Corpuscular 31.6 L Hemoglobin Concent Red Cell 16.4 H Distribution Width Platelet Count 171 Mean Platelet Volume 12.5 H Immature 0.400 Granulocytes % Neutrophils % 75.5 Lymphocytes % 11.4 L Monocytes % 9.4 Eosinophils % 2.8 Basophils % 0.5 Nucleated Red Blood 0.0 Cells % Immature 0.040 H Granulocytes # Neutrophils # 8.4 H Lymphocytes # 1.3 Monocytes # 1.0 H Eosinophils # 0.3 Basophils # 0.1 Nucleated Red Blood 0.0 Cells # Medications Medication Current Medications Ondansetron HCl (Zofran Inj) 4 mg Q6H PRN IV NAUSEA AND/OR VOMITING; Start 11/11/18 at 23:00 Acetaminophen (Tylenol Liquid) 650 mg Q6H PRN PO FEVER Last administered on 11/16/18at 17:37; Admin Dose 650 MG; Start 11/11/18 at 23:00 Morphine Sulfate (morphine) 2 mg Q4H PRN IV PAIN LEVEL 7-10 Last administered on 11/12/18at 05:26; Admin Dose 2 MG; Start 11/11/18 at 23:00 Insulin Aspart (Novolog Insulin Pen) NOVOLOG *MODERATE* ALGORI... Q4 SC Last administered on 11/16/18at 21:54; Admin Dose 2 UNIT; Start 11/12/18 at 05:00 Miscellaneous Information 1 ea NOTE XX ; Start 11/12/18 at 03:00 Glucose (Glutose) 15 gm Q15M PRN PO DECREASED GLUCOSE; Start 11/12/18 at 03:00 Glucose (Glutose) 22.5 gm Q15M PRN PO DECREASED GLUCOSE; Start 11/12/18 at 03:00 Dextrose (D50w Syringe) 25 ml Q15M PRN IV DECREASED GLUCOSE; Start 11/12/18 at 03:00 Dextrose (D50w Syringe) 50 ml Q15M PRN IV DECREASED GLUCOSE; Start 11/12/18 at 03:00 Glucagon (Glucagen) 1 mg Q15M PRN IM DECREASED GLUCOSE; Start 11/12/18 at 03:00 Glucose (Glutose) 15 gm Q15M PRN BUCCAL DECREASED GLUCOSE; Start 11/12/18 at 03:00 Acetaminophen (Tylenol Tab) 650 mg Q4H PRN GTB MILD PAIN LEVEL 1-3 Last administered on 11/17/18 05:29; Admin Dose 650 MG; Start 11/12/18 at 09:30 Acetylcysteine (Mucomyst) 3 ml BID RESP THERAPY NEB Last administered on 11/16/18 20:33; Admin Dose 3 ML; Start 11/12/18 at 10:00 Atorvastatin Calcium (Lipitor) 80 mg QHS GTB Last administered on 11/16/18 21:49; Admin Dose 80 MG; Start 11/12/18 at 21:00 Bisacodyl (Dulcolax Supp) 10 mg Q24H PRN [place] CONSTIPATION; Start 11/12/18 at 09:30 Furosemide (Lasix) 20 mg DAILY GTB Last administered on 11/16/18 10:49; Admin Dose 20 MG; Start 11/12/18 at 09:30 Hydralazine HCl (Apresoline) 25 mg Q6 GTB Last administered on 11/17/18 05:19; Admin Dose 25 MG; Start 11/12/18 at 12:00 Lansoprazole (Prevacid) 30 mg BID@0600,1800 GTB Last administered on 11/17/18 05:29; Admin Dose 30 MG; Start 11/12/18 at 18:00 Magnesium Hydroxide (Milk Of Mag) 30 ml Q24H GTB Last administered on 11/16/18 09:30; Admin Dose 30 ML; Start 11/12/18 at 09:30 Senna (Senokot) 2 tab BID GTB Last administered on 11/16/18 10:46; Admin Dose 2 TAB; Start 11/12/18 at 09:30 Sucralfate (Carafate Susp) 1 gm QID GTB Last administered on 11/16/18 21:49; Admin Dose 1 GM; Start 11/12/18 at 13:00 Valproate Sodium (Depakene Liquid Cup) 500 mg Q8 GTB Last administered on 11/17/18 05:19; Admin Dose 500 MG; Start 11/12/18 at 10:00 Insulin Human NPH (Humulin N) 28 unit Q8 SC Last administered on 11/17/18 05:28; Admin Dose 28 UNIT; Start 11/12/18 at 10:00 Sodium Biphosphate/ Sodium Phosphate (Fleet Enema) 133 ml DAILY PRN [place] CONSTIPATION; Start 11/12/18 at 10:00 Lisinopril (Zestril) 10 mg DAILY GTB Last administered on 11/16/18at 10:47; Admin Dose 10 MG; Start 11/14/18 at 09:00 Albuterol/ Ipratropium (Duoneb) 3 ml Q6H RESP THERAPY PRN HHN SHORTNESS OF BREATH Last administered on 11/16/18at 12:01; Admin Dose 3 ML; Start 11/13/18 at 21:00 Carvedilol (Coreg) 3.125 mg BID GTB Last administered on 11/16/18at 21:49; Admin Dose 3.125 MG; Start 11/14/18 at 21:00 Piperacillin Sod/ Tazobactam Sod 100 ml @ 200 mls/hr Q8 IVPB Last administered on 11/17/18 05:19; Admin Dose 200 MLS/HR; Start 11/15/18 at 18:00 RAKESH CURTIS MD November 17, 2018 08:05
[2018-11-17] MEDS: MAGNESIUM HYDROXIDE 30ML CUP GTB SCH (08:53)
[2018-11-17] MEDS: SUCRALFATE (100 MG/ML) 10ML CUP GTB SCH ×4 (08:53→21:02)
[2018-11-17] MEDS: FUROSEMIDE 20 MG TAB GTB SCH (08:54)
[2018-11-17] MEDS: LISINOPRIL 5 MG TAB GTB SCH (08:54)
[2018-11-17] MEDS: SENNA TAB GTB SCH ×2 (08:55→21:02)
[2018-11-17] MEDS: ACETYLCYSTEINE 20% 4 ML VIAL NEB SCH ×2 (09:00→19:52)
--- NOTE | 2018-11-17 11:28 | CONS ---
Consult Date/Type/Reason Admit Date/Time November 11, 2018 at 22:51 Initial Consult Date 11/14/18 Type of Consult Pulmonary Requesting Provider: NIA DOMINGO MD Date/Time of Note DATE: 11/17/18 TIME: 11:24 Subjective No significant changes. Patient continues to have low-grade temps. Objective Vital Signs Date Temp Pulse Resp B/P (MAP) Pulse Ox O2 O2 Flow FiO2 Time Delivery Rate 11/17/18 87 08:00 11/17/18 28 100 07:30 11/17/18 98.9 113/68 Trach 07:00 (83) Collar 11/17/18 6.0 28 05:45 Intake and Output 11/16/18 11/16/18 11/17/18 1515:00 23:00 07:00 IntakeIntake Total 710 ml 810 ml 890 ml OutputOutput Total 780 ml 480 ml 340 ml BalanceBalance -70 ml 330 ml 550 ml Exam GENERAL: Chronically ill-appearing gentleman on cool aerosol tracheostomy in place VITAL SIGNS: per chart NECK: Supple. No JVD or lymphadenopathy. CARDIAC EXAM: S1, S2. No added sounds or murmurs. CHEST: Diminished air entry bilaterally ABDOMEN: Soft, nontender. No guarding or rebound. EXTREMITIES: No cyanosis, clubbing edema +2. Vent Setting Fraction of Inspired Oxygen pe: 28 Results/Medications Result Diagram: 11/17/18 0432 11/16/18 0429 Results 24 hrs Laboratory Tests Test 11/16/18 13:23 11/16/18 17:09 11/16/18 21:52 11/17/18 01:37 Bedside Glucose 166 210 197 137 Test 11/17/18 04:32 11/17/18 05:18 11/17/18 09:03 White Blood Count 11.1 #H Red Blood Count 4.40 L Hemoglobin 12.2 L Hematocrit 38.6 L Mean Corpuscular 87.7 Volume Mean Corpuscular 27.7 L Hemoglobin Mean Corpuscular 31.6 L Hemoglobin Concent Red Cell 16.4 H Distribution Width Platelet Count 171 Mean Platelet Volume 12.5 H Immature 0.400 Granulocytes % Neutrophils % 75.5 Lymphocytes % 11.4 L Monocytes % 9.4 Eosinophils % 2.8 Basophils % 0.5 Nucleated Red Blood 0.0 Cells % Immature 0.040 H Granulocytes # Neutrophils # 8.4 H Lymphocytes # 1.3 Monocytes # 1.0 H Eosinophils # 0.3 Basophils # 0.1 Nucleated Red Blood 0.0 Cells # Bedside Glucose 121 115 Medications Current Medications Ondansetron HCl (Zofran Inj) 4 mg Q6H PRN IV NAUSEA AND/OR VOMITING; Start 10/21 09/07 at 23:00 Acetaminophen (Tylenol Liquid) 650 mg Q6H PRN PO FEVER Last administered on 11/16/18at 17:37; Admin Dose 650 MG; Start 11/11/18 at 23:00 Morphine Sulfate (morphine) 2 mg Q4H PRN IV PAIN LEVEL 7-10 Last administered on 11/12/18at 05:26; Admin Dose 2 MG; Start 11/11/18 at 23:00 Insulin Aspart (Novolog Insulin Pen) NOVOLOG *MODERATE* ALGORI... Q4 SC Last administered on 11/16/18at 21:54; Admin Dose 2 UNIT; Start 11/12/18 at 05:00 Miscellaneous Information 1 ea NOTE XX ; Start 11/12/18 at 03:00 Glucose (Glutose) 15 gm Q15M PRN PO DECREASED GLUCOSE; Start 11/12/18 at 03:00 Glucose (Glutose) 22.5 gm Q15M PRN PO DECREASED GLUCOSE; Start 11/12/18 at 03:00 Dextrose (D50w Syringe) 25 ml Q15M PRN IV DECREASED GLUCOSE; Start 11/12/18 at 03:00 Dextrose (D50w Syringe) 50 ml Q15M PRN IV DECREASED GLUCOSE; Start 11/12/18 at 03:00 Glucagon (Glucagen) 1 mg Q15M PRN IM DECREASED GLUCOSE; Start 11/12/18 at 03:00 Glucose (Glutose) 15 gm Q15M PRN BUCCAL DECREASED GLUCOSE; Start 11/12/18 at 03:00 Acetaminophen (Tylenol Tab) 650 mg Q4H PRN GTB MILD PAIN LEVEL 1-3 Last administered on 11/17/18at 05:29; Admin Dose 650 MG; Start 11/12/18 at 09:30 Acetylcysteine (Mucomyst) 3 ml BID RESP THERAPY NEB Last administered on 11/16/18at 20:33; Admin Dose 3 ML; Start 11/12/18 at 10:00 Atorvastatin Calcium (Lipitor) 80 mg QHS GTB Last administered on 11/16/18 21:49; Admin Dose 80 MG; Start 11/12/18 at 21:00 Bisacodyl (Dulcolax Supp) 10 mg Q24H PRN [place] CONSTIPATION; Start 11/12/18 at 09:30 Furosemide (Lasix) 20 mg DAILY GTB Last administered on 11/17/18 08:54; Admin Dose 20 MG; Start 11/12/18 at 09:30 Hydralazine HCl (Apresoline) 25 mg Q6 GTB Last administered on 11/17/18 05:19; Admin Dose 25 MG; Start 11/12/18 at 12:00 Lansoprazole (Prevacid) 30 mg BID@0600,1800 GTB Last administered on 11/17/18 05:29; Admin Dose 30 MG; Start 11/12/18 at 18:00 Magnesium Hydroxide (Milk Of Mag) 30 ml Q24H GTB Last administered on 11/17/18 08:53; Admin Dose 30 ML; Start 11/12/18 at 09:30 Senna (Senokot) 2 tab BID GTB Last administered on 11/16/18 10:46; Admin Dose 2 TAB; Start 11/12/18 at 09:30 Sucralfate (Carafate Susp) 1 gm QID GTB Last administered on 11/17/18 08:53; Admin Dose 1 GM; Start 11/12/18 at 13:00 Valproate Sodium (Depakene Liquid Cup) 500 mg Q8 GTB Last administered on 11/17/18 05:19; Admin Dose 500 MG; Start 11/12/18 at 10:00 Insulin Human NPH (Humulin N) 28 unit Q8 SC Last administered on 11/17/18 05:28; Admin Dose 28 UNIT; Start 11/12/18 at 10:00 Sodium Biphosphate/ Sodium Phosphate (Fleet Enema) 133 ml DAILY PRN [place] CONSTIPATION; Start 11/12/18 at 10:00 Lisinopril (Zestril) 10 mg DAILY GTB Last administered on 11/17/18 08:54; Admin Dose 10 MG; Start 11/14/18 at 09:00 Albuterol/ Ipratropium (Duoneb) 3 ml Q6H RESP THERAPY PRN HHN SHORTNESS OF BREATH Last administered on 11/16/18at 12:01; Admin Dose 3 ML; Start 11/13/18 at 21:00 Carvedilol (Coreg) 3.125 mg BID GTB Last administered on 11/17/18at 08:54; Admin Dose 3.125 MG; Start 11/14/18 at 21:00 Piperacillin Sod/ Tazobactam Sod 100 ml @ 200 mls/hr Q8 IVPB Last administered on 11/17/18at 05:19; Admin Dose 200 MLS/HR; Start 11/15/18 at 18:00 Assessment/Plan Hospital Course (Demo Recall) Assessment 1. Chronic respiratory failure with tracheostomy and T-tube 2. Acute on chronic cerebral hemorrhages. 3. Encephalopathy secondary to above 4. History of seizure disorder, MRI pending. 5. Healthcare associated pneumonia Plan 1. Continue cool aerosol 2. Antibiotics for UTI and pneumonia 3. Tube feeding as tolerated 4. Neurosurgery pending social work input regarding goals of care. Consider transfer to telemetry. Critical care time 40 minutes. LULU GARCIA MD, [facility] November 17, 2018 11:28
[2018-11-17] MEDS: ACETAMINOPHEN 650MG/20.3ML CUP PO PRN ×2 (12:38→21:36)
[2018-11-17] MEDS ORDERED: VANCOMYCIN IV PER PHARMACY XX SCH (13:00)
--- NOTE | 2018-11-17 13:00 | CONS ---
Assessment/Plan Assessment/Plan Hospital Course (Demo Recall) - possible HCAP, however, given the polymicrobial growth of his resp culture, all bacteria may be colonizers of the airway: providencia, proteus, pseudomonas, group B strep, klebsiella - intermittent fever, probably due to HCAP and intra-parenchymal hemorrhage - Gram positive cocci in clusters in blood culture on 12/16/2018, possible contaminant. workup in process - Hx of CVA. 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 [id number] lobes; stable large subacute R frontal temporal parietal intraparenchymal hemorrhage, plus encepha lomalacia/gliosis; stable moderate to severe ventriculomegaly; moderate b/l occipital horn acute intraventricular hemorrhage; chronic R paracentral pontine infarction; small chronic R cerebellar infarctions; L temporal lobe with associated encephalomalacia/gliosis within this region as well as laminar necrosis; moderate chronic microvascular ischemic changes; basilar dolichoectasia; extensive bilateral mastoid air cell effusions - aerococci in in urine culture on 11/14/2018, probable colonization - chronic hypoxic resp failure - h/o tracheostomy placement - unresponsive state due to extensive CVA recommendations - pending results: repeat cultures of blood (gram positive cocci in clusters) fr om 11/15/2018, resp culture from 11/14/2018 - ordered: repeat blood cultures x2, urinalysis and urine culture, resp culture, lactic acid - restart IV vancomycin (re-start 11/17/2018) - continue pip/tazo (11/15/18-) management d/w Pt's BRADLEY Nicole the critical caret time I took to care for this Pt today was from 1200 to 1230 Consultation Date/Type/Reason Admit Date/Time November 11, 2018 at 22:51 Initial Consult Date 11/15/18 Type of Consult ID Requesting Provider: NIA DOMINGO MD Date/Time of Note DATE: 11/17/18 TIME: 12:52 24 HR Interval Summary Subjective hx not possible: pt non-verbal, pt critical, pt critical status Exam/Review of Systems Exam Vitals Vital Signs Date Temp Pulse Resp B/P (MAP) Pulse Ox O2 O2 Flow FiO2 Time Delivery Rate 11/17/18 102.5 12:38 11/17/18 104 19 98 12:00 11/17/18 128/76 Trach 11:30 (93) Collar 11/17/18 6.0 28 05:45 Intake and Output 11/16/18 11/16/18 11/17/18 1414:59 22:59 06:59 IntakeIntake Total 710 ml 810 ml 960 ml OutputOutput Total 770 ml 540 ml 390 ml BalanceBalance -60 ml 270 ml 570 ml Constitutional: non-verbal, frail Psych: confusion Head: other (s/p craniotomy) Eyes: nl conjunctiva, nl lids, nl sclera ENMT: nl external ears & nose, nl nasal mucosa & septum, mucosa pink and moist Neck: other (trach) Respiratory: congested cough, wheezing Cardiovascular: regular rate and rhythm, nl pulses Gastrointestinal: soft, non-tender; No distended Genitourinary - Male: other (FC) Musculoskeletal: nl extremities to inspection Extremities: No edema Neurological: unresponsive Skin: nl turgor Results Result Diagram: 11/17/18 0432 11/16/18 0429 Results 24hrs Laboratory Tests Test 11/16/18 13:23 11/16/18 17:09 11/16/18 21:52 11/17/18 01:37 Bedside Glucose 166 210 197 137 Test 11/17/18 04:32 11/17/18 05:18 11/17/18 09:03 White Blood Count 11.1 #H Red Blood Count 4.40 L Hemoglobin 12.2 L Hematocrit 38.6 L Mean Corpuscular 87.7 Volume Mean Corpuscular 27.7 L Hemoglobin Mean Corpuscular 31.6 L Hemoglobin Concent Red Cell 16.4 H Distribution Width Platelet Count 171 Mean Platelet Volume 12.5 H Immature 0.400 Granulocytes % Neutrophils % 75.5 Lymphocytes % 11.4 L Monocytes % 9.4 Eosinophils % 2.8 Basophils % 0.5 Nucleated Red Blood 0.0 Cells % Immature 0.040 H Granulocytes # Neutrophils # 8.4 H Lymphocytes # 1.3 Monocytes # 1.0 H Eosinophils # 0.3 Basophils # 0.1 Nucleated Red Blood 0.0 Cells # Bedside Glucose 121 115 Medications Medication Current Medications Ondansetron HCl (Zofran Inj) 4 mg Q6H PRN IV NAUSEA AND/OR VOMITING; Start 11/11/18 at 23:00 Acetaminophen (Tylenol Liquid) 650 mg Q6H PRN PO FEVER Last administered on 11/17/18 12:38; Admin Dose 650 MG; Start 11/11/18 at 23:00 Morphine Sulfate (morphine) 2 mg Q4H PRN IV PAIN LEVEL 7-10 Last administered on 11/12/18 05:26; Admin Dose 2 MG; Start 11/11/18 at 23:00 Insulin Aspart (Novolog Insulin Pen) NOVOLOG *MODERATE* [place]I... Q4 SC Last administered on 11/16/18 21:54; Admin Dose 2 UNIT; Start 11/12/18 at 05:00 Miscellaneous Information 1 ea NOTE XX ; Start 11/12/18 at 03:00 Glucose (Glutose) 15 gm Q15M PRN PO DECREASED GLUCOSE; Start 11/12/18 at 03:00 Glucose (Glutose) 22.5 gm Q15M PRN PO DECREASED GLUCOSE; Start 11/12/18 at 03:00 Dextrose (D50w Syringe) 25 ml Q15M PRN IV DECREASED GLUCOSE; Start 11/12/18 at 03:00 Dextrose (D50w Syringe) 50 ml Q15M PRN IV DECREASED GLUCOSE; Start 11/12/18 at 03:00 Glucagon (Glucagen) 1 mg Q15M PRN IM DECREASED GLUCOSE; Start 11/12/18 at 03:00 Glucose (Glutose) 15 gm Q15M PRN BUCCAL DECREASED GLUCOSE; Start 11/12/18 at 03:00 Acetaminophen (Tylenol Tab) 650 mg Q4H PRN GTB MILD PAIN LEVEL 1-3 Last administered on 11/17/18 05:29; Admin Dose 650 MG; Start 11/12/18 at 09:30 Acetylcysteine (Mucomyst) 3 ml BID RESP THERAPY NEB Last administered on 11/16/18 20:33; Admin Dose 3 ML; Start 11/12/18 at 10:00 Atorvastatin Calcium (Lipitor) 80 mg QHS GTB Last administered on 11/16/18 21:49; Admin Dose 80 MG; Start 11/12/18 at 21:00 Bisacodyl (Dulcolax Supp) 10 mg Q24H PRN [place] CONSTIPATION; Start 11/12/18 at 09:30 Furosemide (Lasix) 20 mg DAILY GTB Last administered on 11/17/18 08:54; Admin Dose 20 MG; Start 11/12/18 at 09:30 Hydralazine HCl (Apresoline) 25 mg Q6 GTB Last administered on 11/17/18 12:37; Admin Dose 25 MG; Start 11/12/18 at 12:00 Lansoprazole (Prevacid) 30 mg BID@0600,1800 GTB Last administered on 11/17/18 05:29; Admin Dose 30 MG; Start 11/12/18 at 18:00 Magnesium Hydroxide (Milk Of Mag) 30 ml Q24H GTB Last administered on 11/17/18 08:53; Admin Dose 30 ML; Start 11/12/18 at 09:30 Senna (Senokot) 2 tab BID GTB Last administered on 11/16/18 10:46; Admin Dose 2 TAB; Start 11/12/18 at 09:30 Sucralfate (Carafate Susp) 1 gm QID GTB Last administered on 11/17/18 08:53; Admin Dose 1 GM; Start 11/12/18 at 13:00 Valproate Sodium (Depakene Liquid Cup) 500 mg Q8 GTB Last administered on 11/17/18 05:19; Admin Dose 500 MG; Start 11/12/18 at 10:00 Insulin Human NPH (Humulin N) 28 unit Q8 SC Last administered on 11/17/18 05:28; Admin Dose 28 UNIT; Start 11/12/18 at 10:00 Sodium Biphosphate/ Sodium Phosphate (Fleet Enema) 133 ml DAILY PRN [place] CONSTIPATION; Start 11/12/18 at 10:00 Lisinopril (Zestril) 10 mg DAILY GTB Last administered on 11/17/18 08:54; Admin Dose 10 MG; Start 11/14/18 at 09:00 Albuterol/ Ipratropium (Duoneb) 3 ml Q6H RESP THERAPY PRN HHN SHORTNESS OF BREATH Last administered on 11/16/18 12:01; Admin Dose 3 ML; Start 11/13/18 at 21:00 Carvedilol (Coreg) 3.125 mg BID GTB Last administered on 11/17/18 08:54; Admin Dose 3.125 MG; Start 11/14/18 at 21:00 Piperacillin Sod/ Tazobactam Sod 100 ml @ 200 mls/hr Q8 IVPB Last administered on 11/17/18at 05:19; Admin Dose 200 MLS/HR; Start 11/15/18 at 18:00 APRIL JORDAN M.D. November 17, 2018 13:00
[2018-11-17] MEDS ORDERED: VANCOMYCIN HCL 1.75 GM in SOD CHLORIDE 0.9% 500 ML IVPB SCH (15:00)
--- NOTE | 2018-11-17 15:49 | PN ---
Date/Time of Note Date/Time of Note DATE: 11/17/18 TIME: 15:47 Assessment/Plan VTE Prophylaxis Risk score (from [facility] [place])>0 risk: 7 SCD applied (from [facility] [place]): Yes Pharmacological prophylaxis: NA/contraindicated Pharm contraindication: bleeding Lines/Catheters IV Catheter Type (from [facility]): [place] [employer] line still needed: Yes Urinary Cath still in place: Yes Reason Cath still needed: urinary retention Assessment/Plan Hospital Course Patient continues to spike fever, however white blood cells gradually trending down, continued on antibiotics. Assessment/Plan -Intracranial hemorrhage, Dr. Espana is following in neurosurgery consultation. Possible EVD. -Sepsis with fever and leukocytosis most likely secondary to HCAP. Continue antibiotics per ID. Dr. Kiran is following in infection disease consultation. -Recent history of right hemicraniectomy, details are not available. Records requested. -Chronic respiratory failure with tracheostomy, patient is currently on T-tube. -Healthcare associated pneumonia, continue antibiotics. -Coronary artery disease, status post PTCA with stent placement -Ischemic cardiomyopathy -Diabetes -Dysphagia with G-tube -Dyslipidemia -Obesity with BMI of 35.3 Further recommendations depends on clinical course. Plan of care discussed with Dr. Cortez. Result Diagram: 11/17/18 0432 11/16/18 0429 Results 24hrs Laboratory Tests Test 11/16/18 17:09 11/16/18 21:52 11/17/18 01:37 11/17/18 04:32 Bedside Glucose 210 197 137 White Blood Count 11.1 #H Red Blood Count 4.40 L Hemoglobin 12.2 L Hematocrit 38.6 L Mean Corpuscular 87.7 Volume Mean Corpuscular 27.7 L Hemoglobin Mean Corpuscular 31.6 L Hemoglobin Concen t Red Cell 16.4 H Distribution Width Platelet Count 171 Mean Platelet 12.5 H Volume Immature 0.400 Granulocytes % Neutrophils % 75.5 Lymphocytes % 11.4 L Monocytes % 9.4 Eosinophils % 2.8 Basophils % 0.5 Nucleated Red 0.0 Blood Cells % Immature 0.040 H Granulocytes # Neutrophils # 8.4 H Lymphocytes # 1.3 Monocytes # 1.0 H Eosinophils # 0.3 Basophils # 0.1 Nucleated Red 0.0 Blood Cells # Test 11/17/18 05:18 11/17/18 09:03 11/17/18 12:58 11/17/18 13:00 Bedside Glucose 121 115 123 Urine Color YELLOW Urine Clarity SLIGHTLY CLOUDY A Urine pH 7.0 Urine Specific 1.029 [place] Urine Ketones NEGATIVE Urine Nitrite NEGATIVE Urine Bilirubin NEGATIVE Urine 2+ H Urobilinogen Urine Leukocyte NEGATIVE Esterase Urine Microscopic 134 H RBC Urine Microscopic 4 WBC Urine Mucus FEW A Urine Hemoglobin 1+ H Urine Glucose NEGATIVE Urine Total 2+ H Protein Test 11/17/18 14:02 Lactic Acid Level 1.1 Procalcitonin 0.13 H Exam/Review of Systems Exam Vitals Vital Signs Date Temp Pulse Resp B/P (MAP) Pulse Ox O2 O2 Flow FiO2 Time Delivery Rate 11/17/18 81 23 122/73 100 15:30 (89) 11/17/18 100.5 13:17 11/17/18 Trach 11:30 Collar 11/17/18 6.0 28 05:45 Intake and Output 11/16/18 11/16/18 11/17/18 1515:00 23:00 07:00 IntakeIntake Total 710 ml 810 ml 890 ml OutputOutput Total 780 ml 480 ml 340 ml BalanceBalance -70 ml 330 ml 550 ml Exam Constitutional: non-verbal, frail Head: other (Status post right craniectomy) Neck: other (Trach) Respiratory: diminished breath sounds Cardiovascular: regular rate and rhythm Gastrointestinal: soft, non-tender, other (G-tube) Musculoskeletal: muscle weakness Extremities: normal pulses Neurological: other (Noncommunicative) Skin: nl turgor Results Results 24hrs Laboratory Tests Test 11/16/18 17:09 11/16/18 21:52 11/17/18 01:37 11/17/18 04:32 Bedside Glucose 210 197 137 White Blood Count 11.1 #H Red Blood Count 4.40 L Hemoglobin 12.2 L Hematocrit 38.6 L Mean Corpuscular 87.7 Volume Mean Corpuscular 27.7 L Hemoglobin Mean Corpuscular 31.6 L Hemoglobin Concen t Red Cell 16.4 H Distribution Width Platelet Count 171 Mean Platelet 12.5 H Volume Immature 0.400 Granulocytes % Neutrophils % 75.5 Lymphocytes % 11.4 L Monocytes % 9.4 Eosinophils % 2.8 Basophils % 0.5 Nucleated Red 0.0 Blood Cells % Immature 0.040 H Granulocytes # Neutrophils # 8.4 H Lymphocytes # 1.3 Monocytes # 1.0 H Eosinophils # 0.3 Basophils # 0.1 Nucleated Red 0.0 Blood Cells # Test 11/17/18 05:18 11/17/18 09:03 11/17/18 12:58 11/17/18 13:00 Bedside Glucose 121 115 123 Urine Color YELLOW Urine Clarity SLIGHTLY CLOUDY A Urine pH 7.0 Urine Specific 1.029 [place] Urine Ketones NEGATIVE Urine Nitrite NEGATIVE Urine Bilirubin NEGATIVE Urine 2+ H Urobilinogen Urine Leukocyte NEGATIVE Esterase Urine Microscopic 134 H RBC Urine Microscopic 4 WBC Urine Mucus FEW A Urine Hemoglobin 1+ H Urine Glucose NEGATIVE Urine Total 2+ H Protein Test 11/17/18 14:02 Lactic Acid Level 1.1 Procalcitonin 0.13 H Medications Medication Current Medications Ondansetron HCl (Zofran Inj) 4 mg Q6H PRN IV NAUSEA AND/OR VOMITING; Start 11/11/18 at 23:00 Acetaminophen (Tylenol Liquid) 650 mg Q6H PRN PO FEVER Last administered on 11/17/18at 12:38; Admin Dose 650 MG; Start 11/11/18 at 23:00 Morphine Sulfate (morphine) 2 mg Q4H PRN IV PAIN LEVEL 7-10 Last administered on 11/12/18at 05:26; Admin Dose 2 MG; Start 11/11/18 at 23:00 Insulin Aspart (Novolog Insulin Pen) NOVOLOG *MODERATE* ALGORI... Q4 SC Last administered on 11/16/18at 21:54; Admin Dose 2 UNIT; Start 11/12/18 at 05:00 Miscellaneous Information 1 ea NOTE XX ; Start 11/12/18 at 03:00 Glucose (Glutose) 15 gm Q15M PRN PO DECREASED GLUCOSE; Start 11/12/18 at 03:00 Glucose (Glutose) 22.5 gm Q15M PRN PO DECREASED GLUCOSE; Start 11/12/18 at 03:00 Dextrose (D50w Syringe) 25 ml Q15M PRN IV DECREASED GLUCOSE; Start 11/12/18 at 03:00 Dextrose (D50w Syringe) 50 ml Q15M PRN IV DECREASED GLUCOSE; Start 11/12/18 at 03:00 Glucagon (Glucagen) 1 mg Q15M PRN IM DECREASED GLUCOSE; Start 11/12/18 at 03:00 Glucose (Glutose) 15 gm Q15M PRN BUCCAL DECREASED GLUCOSE; Start 11/12/18 at 03:00 Acetaminophen (Tylenol Tab) 650 mg Q4H PRN GTB MILD PAIN LEVEL 1-3 Last administered on 11/17/18 05:29; Admin Dose 650 MG; Start 11/12/18 at 09:30 Acetylcysteine (Mucomyst) 3 ml BID RESP THERAPY NEB Last administered on 11/16/18 20:33; Admin Dose 3 ML; Start 11/12/18 at 10:00 Atorvastatin Calcium (Lipitor) 80 mg QHS GTB Last administered on 11/16/18 21:49; Admin Dose 80 MG; Start 11/12/18 at 21:00 Bisacodyl (Dulcolax Supp) 10 mg Q24H PRN [place] CONSTIPATION; Start 11/12/18 at 09:30 Furosemide (Lasix) 20 mg DAILY GTB Last administered on 11/17/18 08:54; Admin Dose 20 MG; Start 11/12/18 at 09:30 Hydralazine HCl (Apresoline) 25 mg Q6 GTB Last administered on 11/17/18 12:37; Admin Dose 25 MG; Start 11/12/18 at 12:00 Lansoprazole (Prevacid) 30 mg BID@0600,1800 GTB Last administered on 11/17/18 05:29; Admin Dose 30 MG; Start 11/12/18 at 18:00 Magnesium Hydroxide (Milk Of Mag) 30 ml Q24H GTB Last administered on 11/17/18 08:53; Admin Dose 30 ML; Start 11/12/18 at 09:30 Senna (Senokot) 2 tab BID GTB Last administered on 11/16/18 10:46; Admin Dose 2 TAB; Start 11/12/18 at 09:30 Sucralfate (Carafate Susp) 1 gm QID GTB Last administered on 11/17/18 13:15; Admin Dose 1 GM; Start 11/12/18 at 13:00 Valproate Sodium (Depakene Liquid Cup) 500 mg Q8 GTB Last administered on 11/17/18 15:06; Admin Dose 500 MG; Start 11/12/18 at 10:00 Insulin Human NPH (Humulin N) 28 unit Q8 SC Last administered on 11/17/18 15:09; Admin Dose 28 UNIT; Start 11/12/18 at 10:00 Sodium Biphosphate/ Sodium Phosphate (Fleet Enema) 133 ml DAILY PRN [place] CONSTIPATION; Start 11/12/18 at 10:00 Lisinopril (Zestril) 10 mg DAILY GTB Last administered on 11/17/18at 08:54; Admin Dose 10 MG; Start 11/14/18 at 09:00 Albuterol/ Ipratropium (Duoneb) 3 ml Q6H RESP THERAPY PRN HHN SHORTNESS OF BREATH Last administered on 11/16/18at 12:01; Admin Dose 3 ML; Start 11/13/18 at 21:00 Carvedilol (Coreg) 3.125 mg BID GTB Last administered on 11/17/18at 08:54; Admin Dose 3.125 MG; Start 11/14/18 at 21:00 Piperacillin Sod/ Tazobactam Sod 100 ml @ 200 mls/hr Q8 IVPB Last administered on 11/17/18at 15:07; Admin Dose 200 MLS/HR; Start 11/15/18 at 18:00 Vancomycin HCl (Vanco Iv Per Pharmacy) VANCOMYCIN PER PHARMA... PER PROTOCOL XX ; Start 11/17/18 at 13:00 Vancomycin HCl 1.75 gm/Sodium Chloride 500 ml @ 125 mls/hr ONCE@1500 IVPB ; Start 11/17/18 at 15:00; Stop 11/17/18 at 19:00 Vancomycin HCl 1.25 gm/Sodium Chloride 250 ml @ 83.333 mls/ hr Q12H IVPB ; Start 11/18/18 at 03:00 SETH AVENDANO November 17, 2018 15:49
--- NOTE | 2018-11-17 16:32 | CONS ---
Assessment/Plan Assessment/Plan Hospital Course (Demo Recall) IMPRESSION: 1. Abnormal electrocardiogram, assess for acute coronary syndrome.-neg trop x 3/EF 30-35% 2. Cardiomyopathy with decreased left ventricular ejection fraction. EF 30-35% by echo this admit 3. Congestive heart failure, systolic, chronic. 4. Hypertension, under reasonable control in the setting of acute hemorrhage. 5. Intracranial hemorrhage. 6. Chronic encephalopathy. 7. Prior craniectomy. 8. History of prior PTCA and stent placement. 9. Anemia. 10. Tachycardia-S tach today ? etiology, autonomic dysfunction 11.fevers Recc: -ICU -continue hydralazine/ACEI/coreg -s/p dose of IVP digoxin -Continue statin -ongoing NRSG eval -Rx fevers -Continue abx's and f/u cx data Consultation Date/Type/Reason Admit Date/Time November 11, 2018 at 22:51 Initial Consult Date 11/12/18 Type of Consult Cardiology Reason for Consultation CHF Requesting Provider: NIA DOMINGO MD Date/Time of Note DATE: 11/17/18 TIME: 16:30 Exam/Review of Systems Vital Signs Vitals Vital Signs Date Temp Pulse Resp B/P (MAP) Pulse Ox O2 O2 Flow FiO2 Time Delivery Rate 11/17/18 81 23 122/73 100 15:30 (89) 11/17/18 100.5 13:17 11/17/18 Trach 11:30 Collar 11/17/18 6.0 28 05:45 Intake and Output 11/16/18 11/16/18 11/17/18 1515:00 23:00 07:00 IntakeIntake Total 710 ml 810 ml 890 ml OutputOutput Total 780 ml 480 ml 340 ml BalanceBalance -70 ml 330 ml 550 ml Exam Exam Review of Systems: CONSTITUTIONAL: No fevers, chills. PULMONARY: No sob CARDIOVASCULAR: No chest pain/palpitations GASTROINTESTINAL: No nausea/vomiting. GENITOURINARY: No hematuria/dysuria. MUSCULOSKELETAL: No myagias/arthalgias. PSYCHIATRIC: The patient denies depression. NEUROLOGIC: No weakness Constitutional: alert Psych: no complaints Head: normocephalic ENMT: mucosa pink and moist Neck: supple, jvd (9 cm water) Respiratory: diminished breath sounds (at bases/B) Cardiovascular: regular rate and rhythm Gastrointestinal: soft, non-tender Musculoskeletal: muscle tone (normal) Extremities: edema (none) Neurological: other (No focal deficits) Labs Result Diagram: 11/17/18 0432 11/16/18 0429 Results 24hrs Laboratory Tests Test 11/16/18 17:09 11/16/18 21:52 11/17/18 01:37 11/17/18 04:32 Bedside Glucose 210 197 137 White Blood Count 11.1 #H Red Blood Count 4.40 L Hemoglobin 12.2 L Hematocrit 38.6 L Mean Corpuscular 87.7 Volume Mean Corpuscular 27.7 L Hemoglobin Mean Corpuscular 31.6 L Hemoglobin Concen t Red Cell 16.4 H Distribution Width Platelet Count 171 Mean Platelet 12.5 H Volume Immature 0.400 Granulocytes % Neutrophils % 75.5 Lymphocytes % 11.4 L Monocytes % 9.4 Eosinophils % 2.8 Basophils % 0.5 Nucleated Red 0.0 Blood Cells % Immature 0.040 H Granulocytes # Neutrophils # 8.4 H Lymphocytes # 1.3 Monocytes # 1.0 H Eosinophils # 0.3 Basophils # 0.1 Nucleated Red 0.0 Blood Cells # Test 11/17/18 05:18 11/17/18 09:03 11/17/18 12:58 11/17/18 13:00 Bedside Glucose 121 115 123 Urine Color YELLOW Urine Clarity SLIGHTLY CLOUDY A Urine pH 7.0 Urine Specific 1.029 [place] Urine Ketones NEGATIVE Urine Nitrite NEGATIVE Urine Bilirubin NEGATIVE Urine 2+ H Urobilinogen Urine Leukocyte NEGATIVE Esterase Urine Microscopic 134 H RBC Urine Microscopic 4 WBC Urine Mucus FEW A Urine Hemoglobin 1+ H Urine Glucose NEGATIVE Urine Total 2+ H Protein Test 11/17/18 14:02 Lactic Acid Level 1.1 Procalcitonin 0.13 H Medications Medications Current Medications Ondansetron HCl (Zofran Inj) 4 mg Q6H PRN IV NAUSEA AND/OR VOMITING; Start 11/11/18 at 23:00 Acetaminophen (Tylenol Liquid) 650 mg Q6H PRN PO FEVER Last administered on 11/17/18at 12:38; Admin Dose 650 MG; Start 11/11/18 at 23:00 Morphine Sulfate (morphine) 2 mg Q4H PRN IV PAIN LEVEL 7-10 Last administered on 11/12/18at 05:26; Admin Dose 2 MG; Start 11/11/18 at 23:00 Insulin Aspart (Novolog Insulin Pen) NOVOLOG *MODERATE* [place]I... Q4 SC Last administered on 11/16/18at 21:54; Admin Dose 2 UNIT; Start 11/12/18 at 05:00 Miscellaneous Information 1 ea NOTE XX ; Start 11/12/18 at 03:00 Glucose (Glutose) 15 gm Q15M PRN PO DECREASED GLUCOSE; Start 11/12/18 at 03:00 Glucose (Glutose) 22.5 gm Q15M PRN PO DECREASED GLUCOSE; Start 11/12/18 at 03:00 Dextrose (D50w Syringe) 25 ml Q15M PRN IV DECREASED GLUCOSE; Start 11/12/18 at 03:00 Dextrose (D50w Syringe) 50 ml Q15M PRN IV DECREASED GLUCOSE; Start 11/12/18 at 03:00 Glucagon (Glucagen) 1 mg Q15M PRN IM DECREASED GLUCOSE; Start 11/12/18 at 03:00 Glucose (Glutose) 15 gm Q15M PRN BUCCAL DECREASED GLUCOSE; Start 11/12/18 at 03:00 Acetaminophen (Tylenol Tab) 650 mg Q4H PRN GTB MILD PAIN LEVEL 1-3 Last administered on 11/17/18at 05:29; Admin Dose 650 MG; Start 11/12/18 at 09:30 Acetylcysteine (Mucomyst) 3 ml BID RESP THERAPY NEB Last administered on 11/16/18at 20:33; Admin Dose 3 ML; Start 11/12/18 at 10:00 Atorvastatin Calcium (Lipitor) 80 mg QHS GTB Last administered on 11/16/18at 21:49; Admin Dose 80 MG; Start 11/12/18 at 21:00 Bisacodyl (Dulcolax Supp) 10 mg Q24H PRN [place] CONSTIPATION; Start 11/12/18 at 09:30 Furosemide (Lasix) 20 mg DAILY GTB Last administered on 11/17/18at 08:54; Admin Dose 20 MG; Start 11/12/18 at 09:30 Hydralazine HCl (Apresoline) 25 mg Q6 GTB Last administered on 11/17/18at 12:37; Admin Dose 25 MG; Start 11/12/18 at 12:00 Lansoprazole (Prevacid) 30 mg BID@0600,1800 GTB Last administered on 11/17/18 05:29; Admin Dose 30 MG; Start 11/12/18 at 18:00 Magnesium Hydroxide (Milk Of Mag) 30 ml Q24H GTB Last administered on 11/17/18 08:53; Admin Dose 30 ML; Start 11/12/18 at 09:30 Senna (Senokot) 2 tab BID GTB Last administered on 11/16/18 10:46; Admin Dose 2 TAB; Start 11/12/18 at 09:30 Sucralfate (Carafate Susp) 1 gm QID GTB Last administered on 11/17/18 13:15; Admin Dose 1 GM; Start 11/12/18 at 13:00 Valproate Sodium (Depakene Liquid Cup) 500 mg Q8 GTB Last administered on 11/17/18 15:06; Admin Dose 500 MG; Start 11/12/18 at 10:00 Insulin Human NPH (Humulin N) 28 unit Q8 SC Last administered on 11/17/18 15:09; Admin Dose 28 UNIT; Start 11/12/18 at 10:00 Sodium Biphosphate/ Sodium Phosphate (Fleet Enema) 133 ml DAILY PRN [place] CONSTIPATION; Start 11/12/18 at 10:00 Lisinopril (Zestril) 10 mg DAILY GTB Last administered on 11/17/18 08:54; Admin Dose 10 MG; Start 11/14/18 at 09:00 Albuterol/ Ipratropium (Duoneb) 3 ml Q6H RESP THERAPY PRN HHN SHORTNESS OF BREATH Last administered on 11/16/18 12:01; Admin Dose 3 ML; Start 11/13/18 at 21:00 Carvedilol (Coreg) 3.125 mg BID GTB Last administered on 11/17/18 08:54; Admin Dose 3.125 MG; Start 11/14/18 at 21:00 Piperacillin Sod/ Tazobactam Sod 100 ml @ 200 mls/hr Q8 IVPB Last administered on 11/17/18 15:07; Admin Dose 200 MLS/HR; Start 11/15/18 at 18:00 Vancomycin HCl (Vanco Iv Per Pharmacy) VANCOMYCIN PER PHARMA... PER PROTOCOL XX ; Start 11/17/18 at 13:00 Vancomycin HCl 1.75 gm/Sodium Chloride 500 ml @ 125 mls/hr ONCE@1500 IVPB ; Start 11/17/18 at 15:00; Stop 11/17/18 at 19:00 Vancomycin HCl 1.25 gm/Sodium Chloride 250 ml @ 83.333 mls/ hr Q12H IVPB ; Start 11/18/18 at 03:00 MAE ROSALES November 17, 2018 16:32
[2018-11-17] MEDS: ALBUTEROL/IPRATROPIUM (NEB) 3 ML AMP HHN PRN (19:52)
[2018-11-17] MEDS: ATORVASTATIN 80 MG TAB GTB SCH (21:02)
[2018-11-18] VITALS (22 sets, daily range): BP systolic 98–144; BP diastolic 60–93; PULSE 74–102; RESP 19–31
[2018-11-18] MEDS: INSULIN ASPART [NOVOLOG] 3 ML PEN SC SCH ×6 (01:00→20:55)
[2018-11-18] MEDS: VANCOMYCIN HCL 1.25 GM in SOD CHLORIDE 0.9% 250 ML IVPB SCH ×2 (02:03→15:06)
[2018-11-18] MEDS: VALPROIC ACID LIQUID CUP 250 MG/5 ML CUP GTB SCH ×3 (05:54→22:13)
[2018-11-18] MEDS: PIPER-TAZO 3.375 GM IV (PMX) 100 ML IVPB SCH ×2 (05:54→13:25)
[2018-11-18] MEDS: LANSOPRAZOLE 30 MG CAP GTB SCH ×2 (06:03→17:51)
[2018-11-18] MEDS: NPH, HUMAN INSULIN ISOPHANE 3ML VIAL SC SCH ×3 (06:08→22:15)
[2018-11-18] MEDS: ACETAMINOPHEN 650MG/20.3ML CUP PO PRN ×3 (07:10→22:38)
[2018-11-18] MEDS: FUROSEMIDE 20 MG TAB GTB SCH (08:16)
[2018-11-18] MEDS: MAGNESIUM HYDROXIDE 30ML CUP GTB SCH (08:16)
[2018-11-18] MEDS: LISINOPRIL 5 MG TAB GTB SCH (08:16)
[2018-11-18] MEDS: SUCRALFATE (100 MG/ML) 10ML CUP GTB SCH ×4 (08:16→20:34)
[2018-11-18] MEDS: SENNA TAB GTB SCH ×2 (08:17→20:36)
--- NOTE | 2018-11-18 09:14 | CONS ---
Consult Date/Type/Reason Admit Date/Time November 11, 2018 at 22:51 Initial Consult Date 11/14/18 Type of Consult Pulmonary Requesting Provider: NIA DOMINGO MD Date/Time of Note DATE: 11/18/18 TIME: 09:14 Subjective No significant changes. Remains hemodynamically stable no respiratory distress. Objective Vital Signs Date Temp Pulse Resp B/P (MAP) Pulse Ox O2 O2 Flow FiO2 Time Delivery Rate 11/18/18 101.8 88 24 112/65 98 Trach 08:00 (81) Collar 11/18/18 5.0 28 04:15 Intake and Output 11/17/18 11/17/18 11/18/18 1515:00 23:00 07:00 IntakeIntake Total 710 ml 810 ml 1140 ml OutputOutput Total 430 ml 425 ml 280 ml BalanceBalance 280 ml 385 ml 860 ml Exam GENERAL: Chronically ill-appearing gentleman on cool aerosol tracheostomy in place VITAL SIGNS: per chart NECK: Supple. No JVD or lymphadenopathy. CARDIAC EXAM: S1, S2. No added sounds or murmurs. CHEST: Diminished air entry bilaterally ABDOMEN: Soft, nontender. No guarding or rebound. EXTREMITIES: No cyanosis, clubbing edema +2. Vent Setting Fraction of Inspired Oxygen pe: 28 Results/Medications Result Diagram: 11/18/18 0429 11/16/18 0429 Results 24 hrs Laboratory Tests Test 11/17/18 12:58 11/17/18 13:00 11/17/18 14:02 11/17/18 17:09 Bedside Glucose 123 158 Urine Color YELLOW Urine Clarity SLIGHTLY CLOUDY A Urine pH 7.0 Urine Specific 1.029 [place] Urine Ketones NEGATIVE Urine Nitrite NEGATIVE Urine Bilirubin NEGATIVE Urine 2+ H Urobilinogen Urine Leukocyte NEGATIVE Esterase Urine Microscopic 134 H RBC Urine Microscopic 4 WBC Urine Mucus FEW A Urine Hemoglobin 1+ H Urine Glucose NEGATIVE Urine Total 2+ H Protein Lactic Acid Level 1.1 Procalcitonin 0.13 H Test 11/17/18 21:17 11/18/18 01:54 11/18/18 04:29 11/18/18 06:05 Bedside Glucose 116 135 110 White Blood Count 11.6 H Red Blood Count 4.13 L Hemoglobin 11.4 L Hematocrit 36.4 L Mean Corpuscular 88.1 Volume Mean Corpuscular 27.6 L Hemoglobin Mean Corpuscular 31.3 L Hemoglobin Concen t Red Cell 16.3 H Distribution Width Platelet Count 170 Mean Platelet 12.9 H Volume Immature 0.300 Granulocytes % Neutrophils % 73.4 Lymphocytes % 10.6 L Monocytes % 8.7 Eosinophils % 6.6 Basophils % 0.4 Nucleated Red 0.0 Blood Cells % Immature 0.040 H Granulocytes # Neutrophils # 8.5 H Lymphocytes # 1.2 Monocytes # 1.0 H Eosinophils # 0.8 H Basophils # 0.1 Nucleated Red 0.0 Blood Cells # Test 11/18/18 08:15 Bedside Glucose 133 Medications Current Medications Ondansetron HCl (Zofran Inj) 4 mg Q6H PRN IV NAUSEA AND/OR VOMITING; Start 11/11/18 at 23:00 Acetaminophen (Tylenol Liquid) 650 mg Q6H PRN PO FEVER Last administered on 11/18/18at 07:10; Admin Dose 650 MG; Start 11/11/18 at 23:00 Morphine Sulfate (morphine) 2 mg Q4H PRN IV PAIN LEVEL 7-10 Last administered on 11/12/18at 05:26; Admin Dose 2 MG; Start 11/11/18 at 23:00 Insulin Aspart (Novolog Insulin Pen) NOVOLOG *MODERATE* ALGORI... Q4 SC Last administered on 11/17/18at 17:10; Admin Dose 2 UNIT; Start 11/12/18 at 05:00 Miscellaneous Information 1 ea NOTE XX ; Start 11/12/18 at 03:00 Glucose (Glutose) 15 gm Q15M PRN PO DECREASED GLUCOSE; Start 11/12/18 at 03:00 Glucose (Glutose) 22.5 gm Q15M PRN PO DECREASED GLUCOSE; Start 11/12/18 at 03:00 Dextrose (D50w Syringe) 25 ml Q15M PRN IV DECREASED GLUCOSE; Start 11/12/18 at 03:00 Dextrose (D50w Syringe) 50 ml Q15M PRN IV DECREASED GLUCOSE; Start 11/12/18 at 03:00 Glucagon (Glucagen) 1 mg Q15M PRN IM DECREASED GLUCOSE; Start 11/12/18 at 03:00 Glucose (Glutose) 15 gm Q15M PRN BUCCAL DECREASED GLUCOSE; Start 11/12/18 at 03:00 Acetaminophen (Tylenol Tab) 650 mg Q4H PRN GTB MILD PAIN LEVEL 1-3 Last administered on 11/17/18 05:29; Admin Dose 650 MG; Start 11/12/18 at 09:30 Acetylcysteine (Mucomyst) 3 ml BID RESP THERAPY NEB Last administered on 11/17/18 19:52; Admin Dose 3 ML; Start 11/12/18 at 10:00 Atorvastatin Calcium (Lipitor) 80 mg QHS GTB Last administered on 11/17/18 21:02; Admin Dose 80 MG; Start 11/12/18 at 21:00 Bisacodyl (Dulcolax Supp) 10 mg Q24H PRN [place] CONSTIPATION; Start 11/12/18 at 09:30 Furosemide (Lasix) 20 mg DAILY GTB Last administered on 11/18/18 08:16; Admin Dose 20 MG; Start 11/12/18 at 09:30 Hydralazine HCl (Apresoline) 25 mg Q6 GTB Last administered on 11/18/18 05:55; Admin Dose 25 MG; Start 11/12/18 at 12:00 Lansoprazole (Prevacid) 30 mg BID@0600,1800 GTB Last administered on 11/18/18 06:03; Admin Dose 30 MG; Start 11/12/18 at 18:00 Magnesium Hydroxide (Milk Of Mag) 30 ml Q24H GTB Last administered on 11/18/18 08:16; Admin Dose 30 ML; Start 11/12/18 at 09:30 Senna (Senokot) 2 tab BID GTB Last administered on 11/17/18 21:02; Admin Dose 2 TAB; Start 11/12/18 at 09:30 Sucralfate (Carafate Susp) 1 gm QID GTB Last administered on 11/18/18 08:16; Admin Dose 1 GM; Start 11/12/18 at 13:00 Valproate Sodium (Depakene Liquid Cup) 500 mg Q8 GTB Last administered on 11/18/18 05:54; Admin Dose 500 MG; Start 11/12/18 at 10:00 Insulin Human NPH (Humulin N) 28 unit Q8 SC Last administered on 11/18/18 06:08; Admin Dose 28 UNIT; Start 11/12/18 at 10:00 Sodium Biphosphate/ Sodium Phosphate (Fleet Enema) 133 ml DAILY PRN [place] CONSTIPATION; Start 11/12/18 at 10:00 Lisinopril (Zestril) 10 mg DAILY GTB Last administered on 11/18/18at 08:16; Admin Dose 10 MG; Start 11/14/18 at 09:00 Albuterol/ Ipratropium (Duoneb) 3 ml Q6H RESP THERAPY PRN HHN SHORTNESS OF BREATH Last administered on 11/17/18at 19:52; Admin Dose 3 ML; Start 11/13/18 at 21:00 Carvedilol (Coreg) 3.125 mg BID GTB Last administered on 11/18/18 08:17; Admin Dose 3.125 MG; Start 11/14/18 at 21:00 Piperacillin Sod/ Tazobactam Sod 100 ml @ 200 mls/hr Q8 IVPB Last administered on 11/18/18at 05:54; Admin Dose 200 MLS/HR; Start 11/15/18 at 18:00 Vancomycin HCl (Vanco Iv Per Pharmacy) VANCOMYCIN PER PHARMA... PER PROTOCOL XX ; Start 11/17/18 at 13:00 Vancomycin HCl 1.25 gm/Sodium Chloride 250 ml @ 83.333 mls/ hr Q12H IVPB Last administered on 11/18/18at 02:03; Admin Dose 83.333 MLS/HR; Start 11/18/18 at 03:00 Assessment/Plan Hospital Course (Demo Recall) Assessment 1. Chronic respiratory failure with tracheostomy and T-tube 2. Acute on chronic cerebral hemorrhages. 3. Encephalopathy secondary to above 4. History of seizure disorder, MRI pending. 5. Healthcare associated pneumonia Plan 1. Continue cool aerosol 2. Antibiotics for UTI and pneumonia 3. Tube feeding as tolerated 4. Neurosurgery pending social work input regarding goals of care. Consider transfer to telemetry. Critical care time 40 minutes. LULU GARCIA MD, FCCP November 18, 2018 09:14
--- NOTE | 2018-11-18 10:29 | CONS ---
[facility] HCIS Consult Follow-up Patient Name: Johan Arroyo Unit Number: [id number] Date of : 1965 Patient Status: Admitted Inpatient Attending Doctor: Charleen Wiseman Edit: APRIL KELLY M.D. on 11/19/18 @ 17:37 Leticia: I discussed the management witn GREG Rosarioo and agree Assessment/Plan Assessment/Plan Hospital Course (Demo Recall) - possible HCAP, however, given the polymicrobial growth of his resp culture, all bacteria may be colonizers of the airway: providencia, proteus, pseudomonas, group B strep, klebsiella - intermittent fever, probably due to HCAP and intra-parenchymal hemorrhage - Staph aureus in blood culture on 12/16/2018; repeat blood cultures shows NGTD - h/o CVA. F/u MRI on 12/17/2018 showed no change: stable extracranial herniation of brain tissue in R [id number] lobes; stable large subacute R frontal temporal parietal intraparenchymal hemorrhage, plus encephalomalacia/gliosis; stable moderate to severe ventriculomegaly; moderate b/l occipital horn acute intraventricular hemorrhage; chronic R paracentral pontine infarction; small chronic R cerebellar infarctions; L temporal lobe with associated encephalomalacia/gliosis within this region as well as laminar necrosis; moderate chronic microvascular ischemic changes; basilar dolichoectasia; extensive bilateral mastoid air cell effusions - Aerococci in the urine culture on 11/14/2018, probable colonization - chronic hypoxic resp failure - h/o tracheostomy placement - unresponsive state due to extensive CVA - dysphagia s/p PEG placement - CAD with h/o PCI - ischemic cardiomyopathy (EF 30-35%) - chronic combined systolic and diastolic HF - HTN - HLD - diabetes mellitus, type 2 - Hgb A1c 5.5% - morbid obesity - BMI 35.3 recommendations: - pending results: repeat cultures of blood from 11/15/2018 (staph aureus with sensitivities pending) and from 11/17/2018 (NGTD), repeat urine culture (in process), and resp culture (in process) - continue IV vancomycin (re-start 11/17/2018) - change pip/tazo (11/15/2018-) to IV cefepime (11/18/2018-) - trend fever curve and WBC Management discussed with H[employer] SERVICES SPECIALIST Sherry, pt's sons at bedside, and with Dr. Kelly Total critical caret time spent: 60 min Consultation Date/Type/Reason Admit Date/Time November 11, 2018 at 22:51 Initial Consult Date 11/15/18 Type of Consult Infectious Disease Requesting Provider: NIA DOMINGO MD Date/Time of Note DATE: 11/18/18 TIME: 10:20 24 HR Interval Summary Free Text/Dictation Tmax 102.9 F last night. Fever curve is improving today. Senna was held this AM d/t pt having loose stool and Flexiseal is in place per d/w H[employer] SERVICES SPECIALIST. Klebsiella in sputum culture is sensitive to pip/tazo and cefepime per d/w Maddi at [facility]. Subjective hx not possible: pt non-verbal, pt critical status Exam/Review of Systems Exam Vitals Vital Signs Date Temp Pulse Resp B/P (MAP) Pulse Ox O2 O2 Flow FiO2 Time Delivery Rate 11/18/18 88 08:00 11/18/18 101.8 24 112/65 98 Trach 08:00 (81) Collar 11/18/18 5.0 28 04:15 Intake and Output 11/17/18 11/17/18 11/18/18 1515:00 23:00 07:00 IntakeIntake Total 710 ml 810 ml 1140 ml OutputOutput Total 430 ml 425 ml 280 ml BalanceBalance 280 ml 385 ml 860 ml Constitutional: well developed, non-verbal, frail, obese Psych: other (unable to assess) Head: other (craniectomy scar well healed, but site is full) Eyes: nl conjunctiva, nl lids ENMT: nl external ears & nose, nl nasal mucosa & septum, other (Unable to examine OP) Neck: other (trach is midline and connected to trach collar) Respiratory: diminished breath sounds; No wheezing Cardiovascular: regular rate and rhythm, nl pulses Gastrointestinal: soft, non-tender, other (G-tube intact; Rectal tube with liquid brown stool); No distended Genitourinary - Male: nl penis, nl scrotum, other (Nelson catheter intact with clear carlos manuel urine) Musculoskeletal: nl extremities to inspection Extremities: No edema Neurological: unresponsive, other Skin: nl turgor, other (multiple tattoos including "Ally" on R shoulder) Results Result Diagram: 11/18/18 0429 11/16/18 0429 Results 24hrs Procalcitonin - Last Results Test 11/17/18 14:02 Procalcitonin 0.13 ng/mL (0.00-0.10) H Laboratory Tests Test 11/17/18 12:58 11/17/18 13:00 11/17/18 14:02 11/17/18 17:09 Bedside Glucose 123 158 Urine Color YELLOW Urine Clarity SLIGHTLY CLOUDY A Urine pH 7.0 Urine Specific 1.029 [place] Urine Ketones NEGATIVE Urine Nitrite NEGATIVE Urine Bilirubin NEGATIVE Urine 2+ H Urobilinogen Urine Leukocyte NEGATIVE Esterase Urine Microscopic 134 H RBC Urine Microscopic 4 WBC Urine Mucus FEW A Urine Hemoglobin 1+ H Urine Glucose NEGATIVE Urine Total 2+ H Protein Lactic Acid Level 1.1 Procalcitonin 0.13 H Test 11/17/18 21:17 11/18/18 01:54 11/18/18 04:29 11/18/18 06:05 Bedside Glucose 116 135 110 White Blood Count 11.6 H Red Blood Count 4.13 L Hemoglobin 11.4 L Hematocrit 36.4 L Mean Corpuscular 88.1 Volume Mean Corpuscular 27.6 L Hemoglobin Mean Corpuscular 31.3 L Hemoglobin Concen t Red Cell 16.3 H Distribution Width Platelet Count 170 Mean Platelet 12.9 H Volume Immature 0.300 Granulocytes % Neutrophils % 73.4 Lymphocytes % 10.6 L Monocytes % 8.7 Eosinophils % 6.6 Basophils % 0.4 Nucleated Red 0.0 Blood Cells % Immature 0.040 H Granulocytes # Neutrophils # 8.5 H Lymphocytes # 1.2 Monocytes # 1.0 H Eosinophils # 0.8 H Basophils # 0.1 Nucleated Red 0.0 Blood Cells # Test 11/18/18 08:15 Bedside Glucose 133 Imaging Imaging CXR 11/16/2018: Improved bilateral lung infiltrates.. MRI [place] 11/16/2018: FINDINGS: There is a right frontal temporal parietal craniotomy again noted. There is stable extracranial herniation of brain tissue within this region. There is also stable large subacute intraparenchymal hemorrhage. There is encephalomalacia/gliosis also noted within the right frontal temporal parietal region. There is moderate to severe ventriculomegaly which is not significantly changed. There is moderate bilateral occipital horn acute intraventricular hemorrhage. There is layering intraventricular hemorrhage within the fourth ventricle. There is a chronic right paracentral pontine infarction. There small chronic right cerebellar infarctions. There is associated susceptibility suggesting hemosiderin deposition. This is also noted within the left temporal lobe with associated encephalomalacia/gliosis within this region as well as laminar necrosis. There is dolichoectasia of the basilar artery.There are moderate periventricular scattered bilateral subcortical T2 hyperintensities suggesting chronic microvascular ischemic changes. There is no abnormal intracranial enhancement. There is no acute infarction. There is no midline shift. The normal intracranial, intravascular flow voids are preserved. The orbits are grossly unremarkable. The visualized paranasal sinuses are well-aerated. There is no destructive osseous lesion. There are extensive bilateral mastoid air cell effusions. IMPRESSION: No significant change given differences in technique. 1. Right frontal temporal parietal craniotomy with stable extracranial herniation of brain tissue within this region. 2. Stable large subacute right frontal temporal parietal intraparenchymal hemorrhage. 3. Encephalomalacia/gliosis also noted within the right frontal temporal parietal region. 4. Stable moderate to severe ventriculomegaly. 5. Moderate bilateral occipital horn acute intraventricular hemorrhage. 6. Chronic right paracentral pontine infarction. 7. Small chronic right cerebellar infarctions. 8. Left temporal lobe with associated encephalomalacia/gliosis within this region as well as laminar necrosis. 9. Moderate chronic microvascular ischemic changes. 10. Basilar dolichoectasia. 11. Extensive bilateral mastoid air cell effusions. 12. No acute infarction. 13. No abnormal intracranial enhancement. Further findings as detailed above. Medications Medication Current Medications Ondansetron HCl (Zofran Inj) 4 mg Q6H PRN IV NAUSEA AND/OR VOMITING; Start 11/11/18 at 23:00 Acetaminophen (Tylenol Liquid) 650 mg Q6H PRN PO FEVER Last administered on 11/18/18at 07:10; Admin Dose 650 MG; Start 11/11/18 at 23:00 Morphine Sulfate (morphine) 2 mg Q4H PRN IV PAIN LEVEL 7-10 Last administered on 11/12/18 05:26; Admin Dose 2 MG; Start 11/11/18 at 23:00 Insulin Aspart (Novolog Insulin Pen) NOVOLOG *MODERATE* ALGORI... Q4 SC Last administered on 11/17/18 17:10; Admin Dose 2 UNIT; Start 11/12/18 at 05:00 Miscellaneous Information 1 ea NOTE XX ; Start 11/12/18 at 03:00 Glucose (Glutose) 15 gm Q15M PRN PO DECREASED GLUCOSE; Start 11/12/18 at 03:00 Glucose (Glutose) 22.5 gm Q15M PRN PO DECREASED GLUCOSE; Start 11/12/18 at 03:00 Dextrose (D50w Syringe) 25 ml Q15M PRN IV DECREASED GLUCOSE; Start 11/12/18 at 03:00 Dextrose (D50w Syringe) 50 ml Q15M PRN IV DECREASED GLUCOSE; Start 11/12/18 at 03:00 Glucagon (Glucagen) 1 mg Q15M PRN IM DECREASED GLUCOSE; Start 11/12/18 at 03:00 Glucose (Glutose) 15 gm Q15M PRN BUCCAL DECREASED GLUCOSE; Start 11/12/18 at 03:00 Acetaminophen (Tylenol Tab) 650 mg Q4H PRN GTB MILD PAIN LEVEL 1-3 Last administered on 11/17/18 05:29; Admin Dose 650 MG; Start 11/12/18 at 09:30 Acetylcysteine (Mucomyst) 3 ml BID RESP THERAPY NEB Last administered on 11/17/18at 19:52; Admin Dose 3 ML; Start 11/12/18 at 10:00 Atorvastatin Calcium (Lipitor) 80 mg QHS GTB Last administered on 11/17/18 21:02; Admin Dose 80 MG; Start 11/12/18 at 21:00 Bisacodyl (Dulcolax Supp) 10 mg Q24H PRN [place] CONSTIPATION; Start 11/12/18 at 09:30 Furosemide (Lasix) 20 mg DAILY GTB Last administered on 11/18/18 08:16; Admin Dose 20 MG; Start 11/12/18 at 09:30 Hydralazine HCl (Apresoline) 25 mg Q6 GTB Last administered on 11/18/18 05:55; Admin Dose 25 MG; Start 11/12/18 at 12:00 Lansoprazole (Prevacid) 30 mg BID@0600,1800 GTB Last administered on 11/18/18 06:03; Admin Dose 30 MG; Start 11/12/18 at 18:00 Magnesium Hydroxide (Milk Of Mag) 30 ml Q24H GTB Last administered on 11/18/18 08:16; Admin Dose 30 ML; Start 11/12/18 at 09:30 Senna (Senokot) 2 tab BID GTB Last administered on 11/17/18 21:02; Admin Dose 2 TAB; Start 11/12/18 at 09:30 Sucralfate (Carafate Susp) 1 gm QID GTB Last administered on 11/18/18 08:16; Admin Dose 1 GM; Start 11/12/18 at 13:00 Valproate Sodium (Depakene Liquid Cup) 500 mg Q8 GTB Last administered on 11/18/18 05:54; Admin Dose 500 MG; Start 11/12/18 at 10:00 Insulin Human NPH (Humulin N) 28 unit Q8 SC Last administered on 11/18/18 06:08; Admin Dose 28 UNIT; Start 11/12/18 at 10:00 Sodium Biphosphate/ Sodium Phosphate (Fleet Enema) 133 ml DAILY PRN [place] CONSTIPATION; Start 11/12/18 at 10:00 Lisinopril (Zestril) 10 mg DAILY GTB Last administered on 11/18/18 08:16; Admin Dose 10 MG; Start 11/14/18 at 09:00 Albuterol/ Ipratropium (Duoneb) 3 ml Q6H RESP THERAPY PRN HHN SHORTNESS OF BREATH Last administered on 11/17/18 19:52; Admin Dose 3 ML; Start 11/13/18 at 21:00 Carvedilol (Coreg) 3.125 mg BID GTB Last administered on 11/18/18 08:17; Admin Dose 3.125 MG; Start 11/14/18 at 21:00 Piperacillin Sod/ Tazobactam Sod 100 ml @ 200 mls/hr Q8 IVPB Last administered on 11/18/18 05:54; Admin Dose 200 MLS/HR; Start 11/15/18 at 18:00 Vancomycin HCl (Vanco Iv Per Pharmacy) VANCOMYCIN PER PHARMA... PER PROTOCOL XX ; Start 11/17/18 at 13:00 Vancomycin HCl 1.25 gm/Sodium Chloride 250 ml @ 83.333 mls/ hr Q12H IVPB Last administered on 11/18/18at 02:03; Admin Dose 83.333 MLS/HR; Start 11/18/18 at 03:00 BISHNU ACOSTA NP November 18, 2018 10:29
--- NOTE | 2018-11-18 11:04 | CONS ---
Assessment/Plan Assessment/Plan Hospital Course (Demo Recall) IMPRESSION: 1. Abnormal electrocardiogram, assess for acute coronary syndrome.-neg trop x 3/EF 30-35% 2. Cardiomyopathy with decreased left ventricular ejection fraction. EF 30-35% by echo this admit 3. Congestive heart failure, systolic, chronic. 4. Hypertension, under reasonable control in the setting of acute hemorrhage. 5. Intracranial hemorrhage. 6. Chronic encephalopathy. 7. Prior craniectomy. 8. History of prior PTCA and stent placement. 9. Anemia. 10. Tachycardia-S tach today ? etiology, autonomic dysfunction 11.fevers-ongoing Recc: -ICU -continue hydralazine/ACEI/coreg -s/p dose of IVP digoxin -Continue statin -ongoing NRSG eval -Rx fevers -Continue abx's and f/u cx data Consultation Date/Type/Reason Admit Date/Time November 11, 2018 at 22:51 Initial Consult Date 11/12/18 Type of Consult Cardiology Reason for Consultation CHF Requesting Provider: NIA DOMINGO MD Date/Time of Note DATE: 11/18/18 TIME: 11:01 Exam/Review of Systems Vital Signs Vitals Vital Signs Date Temp Pulse Resp B/P (MAP) Pulse Ox O2 O2 Flow FiO2 Time Delivery Rate 11/18/18 88 08:00 11/18/18 101.8 24 112/65 98 Trach 08:00 (81) Collar 11/18/18 5.0 28 04:15 Intake and Output 11/17/18 11/17/18 11/18/18 1515:00 23:00 07:00 IntakeIntake Total 710 ml 810 ml 1140 ml OutputOutput Total 430 ml 425 ml 280 ml BalanceBalance 280 ml 385 ml 860 ml Exam Exam Review of Systems: CONSTITUTIONAL: No fevers, chills. PULMONARY: No sob CARDIOVASCULAR: No chest pain/palpitations GASTROINTESTINAL: No nausea/vomiting. GENITOURINARY: No hematuria/dysuria. MUSCULOSKELETAL: No myagias/arthalgias. PSYCHIATRIC: The patient denies depression. NEUROLOGIC: encephalopathy Constitutional: other (encephalopathy) Psych: no complaints Head: normocephalic ENMT: mucosa pink and moist Neck: supple, jvd (9 cm water) Respiratory: diminished breath sounds (at bases/B) Cardiovascular: regular rate and rhythm Gastrointestinal: soft, non-tender Musculoskeletal: muscle tone (normal) Extremities: edema (none) Neurological: other (No focal deficits) Labs Result Diagram: 11/18/18 0429 11/16/18 0429 Results 24hrs Laboratory Tests Test 11/17/18 12:58 11/17/18 13:00 11/17/18 14:02 11/17/18 17:09 Bedside Glucose 123 158 Urine Color YELLOW Urine Clarity SLIGHTLY CLOUDY A Urine pH 7.0 Urine Specific 1.029 [place] Urine Ketones NEGATIVE Urine Nitrite NEGATIVE Urine Bilirubin NEGATIVE Urine 2+ H Urobilinogen Urine Leukocyte NEGATIVE Esterase Urine Microscopic 134 H RBC Urine Microscopic 4 WBC Urine Mucus FEW A Urine Hemoglobin 1+ H Urine Glucose NEGATIVE Urine Total 2+ H Protein Lactic Acid Level 1.1 Procalcitonin 0.13 H Test 11/17/18 21:17 11/18/18 01:54 11/18/18 04:29 11/18/18 06:05 Bedside Glucose 116 135 110 White Blood Count 11.6 H Red Blood Count 4.13 L Hemoglobin 11.4 L Hematocrit 36.4 L Mean Corpuscular 88.1 Volume Mean Corpuscular 27.6 L Hemoglobin Mean Corpuscular 31.3 L Hemoglobin Concen t Red Cell 16.3 H Distribution Width Platelet Count 170 Mean Platelet 12.9 H Volume Immature 0.300 Granulocytes % Neutrophils % 73.4 Lymphocytes % 10.6 L Monocytes % 8.7 Eosinophils % 6.6 Basophils % 0.4 Nucleated Red 0.0 Blood Cells % Immature 0.040 H Granulocytes # Neutrophils # 8.5 H Lymphocytes # 1.2 Monocytes # 1.0 H Eosinophils # 0.8 H Basophils # 0.1 Nucleated Red 0.0 Blood Cells # Test 11/18/18 08:15 Bedside Glucose 133 Medications Medications Current Medications Ondansetron HCl (Zofran Inj) 4 mg Q6H PRN IV NAUSEA AND/OR VOMITING; Start 11/11/18 at 23:00 Acetaminophen (Tylenol Liquid) 650 mg Q6H PRN PO FEVER Last administered on 11/18/18at 07:10; Admin Dose 650 MG; Start 11/11/18 at 23:00 Morphine Sulfate (morphine) 2 mg Q4H PRN IV PAIN LEVEL 7-10 Last administered on 11/12/18at 05:26; Admin Dose 2 MG; Start 11/11/18 at 23:00 Insulin Aspart (Novolog Insulin Pen) NOVOLOG *MODERATE* ALGORI... Q4 SC Last administered on 11/17/18at 17:10; Admin Dose 2 UNIT; Start 11/12/18 at 05:00 Miscellaneous Information 1 ea NOTE XX ; Start 11/12/18 at 03:00 Glucose (Glutose) 15 gm Q15M PRN PO DECREASED GLUCOSE; Start 11/12/18 at 03:00 Glucose (Glutose) 22.5 gm Q15M PRN PO DECREASED GLUCOSE; Start 11/12/18 at 03:00 Dextrose (D50w Syringe) 25 ml Q15M PRN IV DECREASED GLUCOSE; Start 11/12/18 at 03:00 Dextrose (D50w Syringe) 50 ml Q15M PRN IV DECREASED GLUCOSE; Start 11/12/18 at 03:00 Glucagon (Glucagen) 1 mg Q15M PRN IM DECREASED GLUCOSE; Start 11/12/18 at 03:00 Glucose (Glutose) 15 gm Q15M PRN BUCCAL DECREASED GLUCOSE; Start 11/12/18 at 03:00 Acetaminophen (Tylenol Tab) 650 mg Q4H PRN GTB MILD PAIN LEVEL 1-3 Last administered on 11/17/18at 05:29; Admin Dose 650 MG; Start 11/12/18 at 09:30 Acetylcysteine (Mucomyst) 3 ml BID RESP THERAPY NEB Last administered on 11/17/18at 19:52; Admin Dose 3 ML; Start 11/12/18 at 10:00 Atorvastatin Calcium (Lipitor) 80 mg QHS GTB Last administered on 11/17/18at 21:02; Admin Dose 80 MG; Start 11/12/18 at 21:00 Bisacodyl (Dulcolax Supp) 10 mg Q24H PRN [place] CONSTIPATION; Start 11/12/18 at 09:30 Furosemide (Lasix) 20 mg DAILY GTB Last administered on 11/18/18at 08:16; Admin Dose 20 MG; Start 11/12/18 at 09:30 Hydralazine HCl (Apresoline) 25 mg Q6 GTB Last administered on 11/18/18at 05:55; Admin Dose 25 MG; Start 11/12/18 at 12:00 Lansoprazole (Prevacid) 30 mg BID@0600,1800 GTB Last administered on 11/18/18 06:03; Admin Dose 30 MG; Start 11/12/18 at 18:00 Magnesium Hydroxide (Milk Of Mag) 30 ml Q24H GTB Last administered on 11/18/18 08:16; Admin Dose 30 ML; Start 11/12/18 at 09:30 Senna (Senokot) 2 tab BID GTB Last administered on 11/17/18 21:02; Admin Dose 2 TAB; Start 11/12/18 at 09:30 Sucralfate (Carafate Susp) 1 gm QID GTB Last administered on 11/18/18 08:16; Admin Dose 1 GM; Start 11/12/18 at 13:00 Valproate Sodium (Depakene Liquid Cup) 500 mg Q8 GTB Last administered on 11/18/18 05:54; Admin Dose 500 MG; Start 11/12/18 at 10:00 Insulin Human NPH (Humulin N) 28 unit Q8 SC Last administered on 11/18/18 06:08; Admin Dose 28 UNIT; Start 11/12/18 at 10:00 Sodium Biphosphate/ Sodium Phosphate (Fleet Enema) 133 ml DAILY PRN [place] CONSTIPATION; Start 11/12/18 at 10:00 Lisinopril (Zestril) 10 mg DAILY GTB Last administered on 11/18/18 08:16; Admin Dose 10 MG; Start 11/14/18 at 09:00 Albuterol/ Ipratropium (Duoneb) 3 ml Q6H RESP THERAPY PRN HHN SHORTNESS OF BREATH Last administered on 11/17/18 19:52; Admin Dose 3 ML; Start 11/13/18 at 21:00 Carvedilol (Coreg) 3.125 mg BID GTB Last administered on 11/18/18 08:17; Admin Dose 3.125 MG; Start 11/14/18 at 21:00 Piperacillin Sod/ Tazobactam Sod 100 ml @ 200 mls/hr Q8 IVPB Last administered on 11/18/18 05:54; Admin Dose 200 MLS/HR; Start 11/15/18 at 18:00 Vancomycin HCl (Vanco Iv Per Pharmacy) VANCOMYCIN PER PHARMA... PER PROTOCOL XX ; Start 11/17/18 at 13:00 Vancomycin HCl 1.25 gm/Sodium Chloride 250 ml @ 83.333 mls/ hr Q12H IVPB Last administered on 11/18/18at 02:03; Admin Dose 83.333 MLS/HR; Start 11/18/18 at 03:00 MAE ROSALES November 18, 2018 11:04
[2018-11-18] MEDS: ALBUTEROL/IPRATROPIUM (NEB) 3 ML AMP HHN PRN ×2 (12:12→20:08)
[2018-11-18] MEDS: ACETYLCYSTEINE 20% 4 ML VIAL NEB SCH ×2 (12:12→20:08)
--- NOTE | 2018-11-18 16:46 | PN ---
Date/Time of Note Date/Time of Note DATE: 11/18/18 TIME: 16:43 Assessment/Plan VTE Prophylaxis Risk [place] (from [facility] [place]0 risk: 8 SCD applied (from [facility] [place]): Yes Pharmacological prophylaxis: NA/contraindicated Pharm contraindication: bleeding Lines/Catheters IV Catheter Type (from [facility]): Peripheral IV Central line still needed: Yes Urinary Cath still in place: Yes Reason Cath still needed: urinary retention Assessment/Plan Hospital Course Patient continues to spike fever, obtunded, currently on tracheostomy to T-tube with copious amounts of secretions. Dr. Espana discussed patient's condition over the phone with patient's son and who choose not to have any aggressive treatment. Assessment/Plan -Intracranial hemorrhage, Dr. Espana is following in neurosurgery consultation. Family does not want any aggressive treatment. -Sepsis with fever and leukocytosis most likely secondary to HCAP. Continue antibiotics per ID. Dr. Kiran is following in infection disease consultation. -Recent history of right hemicraniectomy, details are not available. Records requested. -Chronic respiratory failure with tracheostomy, patient is currently on T-tube. -Healthcare associated pneumonia, continue antibiotics. -Coronary artery disease, status post PTCA with stent placement -Ischemic cardiomyopathy -Diabetes -Dysphagia with G-tube -Dyslipidemia -Obesity with BMI of 35.3 Further recommendations depends on clinical course. Plan of care discussed with Dr. Cortez. Result Diagram: 11/18/18 0429 11/16/18 0429 Results 24hrs Laboratory Tests Test 11/17/18 17:09 11/17/18 21:17 11/18/18 01:54 11/18/18 04:29 Bedside Glucose 158 116 135 White Blood Count 11.6 H Red Blood Count 4.13 L Hemoglobin 11.4 L Hematocrit 36.4 L Mean Corpuscular 88.1 Volume Mean Corpuscular 27.6 L Hemoglobin Mean Corpuscular 31.3 L Hemoglobin Concent Red Cell 16.3 H Distribution Width Platelet Count 170 Mean Platelet Volume 12.9 H Immature 0.300 Granulocytes % Neutrophils % 73.4 Lymphocytes % 10.6 L Monocytes % 8.7 Eosinophils % 6.6 Basophils % 0.4 Nucleated Red Blood 0.0 Cells % Immature 0.040 H Granulocytes # Neutrophils # 8.5 H Lymphocytes # 1.2 Monocytes # 1.0 H Eosinophils # 0.8 H Basophils # 0.1 Nucleated Red Blood 0.0 Cells # Test 11/18/18 06:05 11/18/18 08:15 11/18/18 13:26 Bedside Glucose 110 133 136 Exam/Review of Systems Exam Vitals Vital Signs Date Temp Pulse Resp B/P (MAP) Pulse Ox O2 O2 Flow FiO2 Time Delivery Rate 11/18/18 101.8 15:51 11/18/18 102 25 144/83 97 15:00 (103) 11/18/18 5.0 28 12:20 11/18/18 Aerosol 12:10 Intake and Output 11/17/18 11/17/18 11/18/18 1515:00 23:00 07:00 IntakeIntake Total 710 ml 810 ml 1210 ml OutputOutput Total 430 ml 425 ml 355 ml BalanceBalance 280 ml 385 ml 855 ml Exam Constitutional: non-verbal, frail Head: other (Status post right craniectomy) Neck: other (Trach) Respiratory: diminished breath sounds Cardiovascular: regular rate and rhythm Gastrointestinal: soft, non-tender, other (G-tube) Musculoskeletal: muscle weakness Extremities: normal pulses Neurological: other (Noncommunicative) Skin: nl turgor Results Results 24hrs Laboratory Tests Test 11/17/18 17:09 11/17/18 21:17 11/18/18 01:54 11/18/18 04:29 Bedside Glucose 158 116 135 White Blood Count 11.6 H Red Blood Count 4.13 L Hemoglobin 11.4 L Hematocrit 36.4 L Mean Corpuscular 88.1 Volume Mean Corpuscular 27.6 L Hemoglobin Mean Corpuscular 31.3 L Hemoglobin Concent Red Cell 16.3 H Distribution Width Platelet Count 170 Mean Platelet Volume 12.9 H Immature 0.300 Granulocytes % Neutrophils % 73.4 Lymphocytes % 10.6 L Monocytes % 8.7 Eosinophils % 6.6 Basophils % 0.4 Nucleated Red Blood 0.0 Cells % Immature 0.040 H Granulocytes # Neutrophils # 8.5 H Lymphocytes # 1.2 Monocytes # 1.0 H Eosinophils # 0.8 H Basophils # 0.1 Nucleated Red Blood 0.0 Cells # Test 11/18/18 06:05 11/18/18 08:15 11/18/18 13:26 Bedside Glucose 110 133 136 Medications Medication Current Medications Ondansetron HCl (Zofran Inj) 4 mg Q6H PRN IV NAUSEA AND/OR VOMITING; Start 11/11/18 at 23:00 Acetaminophen (Tylenol Liquid) 650 mg Q6H PRN PO FEVER Last administered on 11/18/18at 15:06; Admin Dose 650 MG; Start 11/11/18 at 23:00 Morphine Sulfate (morphine) 2 mg Q4H PRN IV PAIN LEVEL 7-10 Last administered on 11/12/18at 05:26; Admin Dose 2 MG; Start 11/11/18 at 23:00 Insulin Aspart (Novolog Insulin Pen) NOVOLOG *MODERATE* ALGORI... Q4 SC Last administered on 11/17/18at 17:10; Admin Dose 2 UNIT; Start 11/12/18 at 05:00 Miscellaneous Information 1 ea NOTE XX ; Start 11/12/18 at 03:00 Glucose (Glutose) 15 gm Q15M PRN PO DECREASED GLUCOSE; Start 11/12/18 at 03:00 Glucose (Glutose) 22.5 gm Q15M PRN PO DECREASED GLUCOSE; Start 11/12/18 at 03:00 Dextrose (D50w Syringe) 25 ml Q15M PRN IV DECREASED GLUCOSE; Start 11/12/18 at 03:00 Dextrose (D50w Syringe) 50 ml Q15M PRN IV DECREASED GLUCOSE; Start 11/12/18 at 03:00 Glucagon (Glucagen) 1 mg Q15M PRN IM DECREASED GLUCOSE; Start 11/12/18 at 03:00 Glucose (Glutose) 15 gm Q15M PRN BUCCAL DECREASED GLUCOSE; Start 11/12/18 at 03:00 Acetaminophen (Tylenol Tab) 650 mg Q4H PRN GTB MILD PAIN LEVEL 1-3 Last administered on 11/17/18at 05:29; Admin Dose 650 MG; Start 11/12/18 at 09:30 Acetylcysteine (Mucomyst) 3 ml BID RESP THERAPY NEB Last administered on 11/18/18at 12:12; Admin Dose 3 ML; Start 11/12/18 at 10:00 Atorvastatin Calcium (Lipitor) 80 mg QHS GTB Last administered on 11/17/18at 21:02; Admin Dose 80 MG; Start 11/12/18 at 21:00 Bisacodyl (Dulcolax Supp) 10 mg Q24H PRN [place] CONSTIPATION; Start 11/12/18 at 09:30 Furosemide (Lasix) 20 mg DAILY GTB Last administered on 11/18/18 08:16; Admin Dose 20 MG; Start 11/12/18 at 09:30 Hydralazine HCl (Apresoline) 25 mg Q6 GTB Last administered on 11/18/18 13:26; Admin Dose 25 MG; Start 11/12/18 at 12:00 Lansoprazole (Prevacid) 30 mg BID@0600,1800 GTB Last administered on 11/18/18 06:03; Admin Dose 30 MG; Start 11/12/18 at 18:00 Magnesium Hydroxide (Milk Of Mag) 30 ml Q24H GTB Last administered on 11/18/18 08:16; Admin Dose 30 ML; Start 11/12/18 at 09:30 Senna (Senokot) 2 tab BID GTB Last administered on 11/17/18 21:02; Admin Dose 2 TAB; Start 11/12/18 at 09:30 Sucralfate (Carafate Susp) 1 gm QID GTB Last administered on 11/18/18 13:25; Admin Dose 1 GM; Start 11/12/18 at 13:00 Valproate Sodium (Depakene Liquid Cup) 500 mg Q8 GTB Last administered on 11/18/18 13:25; Admin Dose 500 MG; Start 11/12/18 at 10:00 Insulin Human NPH (Humulin N) 28 unit Q8 SC Last administered on 11/18/18 13:30; Admin Dose 28 UNIT; Start 11/12/18 at 10:00 Sodium Biphosphate/ Sodium Phosphate (Fleet Enema) 133 ml DAILY PRN [place] CON STIPATION; Start 11/12/18 at 10:00 Lisinopril (Zestril) 10 mg DAILY GTB Last administered on 11/18/18 08:16; Admin Dose 10 MG; Start 11/14/18 at 09:00 Albuterol/ Ipratropium (Duoneb) 3 ml Q6H RESP THERAPY PRN HHN SHORTNESS OF BREATH Last administered on 11/18/18 12:12; Admin Dose 3 ML; Start 11/13/18 at 21:00 Carvedilol (Coreg) 3.125 mg BID GTB Last administered on 5/30/19at 08:17; Admin Dose 3.125 MG; Start 11/14/18 at 21:00 Vancomycin HCl (Vanco Iv Per Pharmacy) VANCOMYCIN PER PHARMA... PER PROTOCOL XX ; Start 11/17/18 at 13:00 Vancomycin HCl 1.25 gm/Sodium Chloride 250 ml @ 83.333 mls/ hr Q12H IVPB Last administered on 11/18/18at 15:06; Admin Dose 83.333 MLS/HR; Start 11/18/18 at 03 :00 Cefepime HCl 50 ml @ 100 mls/hr Q12 IVPB ; Start 11/18/18 at 21:00 SETH AVENDANO November 18, 2018 16:46
[2018-11-18] MEDS: CEFEPIME 1GM/50 ML (PMX) 50 ML IVPB SCH (20:36)
[2018-11-18] MEDS: ATORVASTATIN 80 MG TAB GTB SCH (20:36)
--- NOTE | 2018-11-18 21:36 | CONS ---
Assessment/Plan Assessment/Plan Assessment/Plan (Daily) s/p right hemicraniectomy with new ICH, Patient is neurologically unchanged. I was able to finally speak with one of the patient's sons who states he is the main decision maker. He states that he was told at [place] that the patient had had bilateral strokes. He does not remember the name of the surgeon but he states that he was told the bone flap was kept at the hospital. MRi confirms bilateral strokes was well as pontine and cerebellar stroke in past. Per the patent's son, the craniectomy defect was sunken until the day of the bleed. This would suggest that the bleed rather than progressive hydrocephalus caused the bulging. He also states that the patient never reliably communicated even before the new ICH. I discussed the patient's prognosis. Given that over 6 months had past and the patient had a sunken craniectomy to suggest hydrocephalus was not an issue yet still had a poor neurological exam, prior to having yet another stroke (ICH), I believe that the patient's prognosis is poor for any significant recovery, regardless of intervention. With this additional stroke, he has even more brain damage and would be permanently kathie-plegic and with significant cognitive impai rment and communication difficulty. I expressed that his quality of life would likely be considered poor by most people. The son stated that he and is brother were already considering this. I explained that an EVD or possibly a shunt could be placed for prognostic purposes, but it it is unknown the extent to which it would help him, though it would likely be limited. I explained it would not be unreasonable to consider palliation. The sons agreed with this stating they didn't want additional procedure performed nor believed the patient would want to live with a poor QoL. I advised him to confirm this with the patient's and if so, palliative care could follow and no further neurosurgical procedures would be performed. Still, I advised him that if the patient's life expectancy is indefinite, having a bone flap replaced may help in his care. Consultation Date/Type/Reason Admit Date/Time November 11, 2018 at 22:51 Initial Consult Date Type of Consult Neurosurgery Requesting Provider: NIA DOMINGO MD Date/Time of Note DATE: 11/18/18 TIME: 21:20 24 HR Interval Summary Subjective hx not possible: pt non-verbal Exam/Review of Systems Exam Vitals Vital Signs Date Temp Pulse Resp B/P (MAP) Pulse Ox O2 O2 Flow FiO2 Time Delivery Rate 11/18/18 5.0 28 20:08 11/18/18 91 27 97 Aerosol 20:08 T Tube 11/18/18 101.8 111/69 16:00 (83) Intake and Output 11/17/18 11/17/18 11/18/18 1515:00 23:00 07:00 IntakeIntake Total 710 ml 810 ml 1210 ml OutputOutput Total 430 ml 425 ml 355 ml BalanceBalance 280 ml 385 ml 855 ml Head: other (craniectomy defect full) Neurological: other (minimal opens left eye to strenal rub. left hemiplegia. does not clearly follow commands but will raise RUE semi-purposefully. ) Results Result Diagram: 11/18/18 0429 11/16/18 0429 Results 24hrs Laboratory Tests Test 11/18/18 01:54 11/18/18 04:29 11/18/18 06:05 11/18/18 08:15 Bedside Glucose 135 110 133 White Blood Count 11.6 H Red Blood Count 4.13 L Hemoglobin 11.4 L Hematocrit 36.4 L Mean Corpuscular 88.1 Volume Mean Corpuscular 27.6 L Hemoglobin Mean Corpuscular 31.3 L Hemoglobin Concent Red Cell 16.3 H Distribution Width Platelet Count 170 Mean Platelet Volume 12.9 H Immature 0.300 Granulocytes % Neutrophils % 73.4 Lymphocytes % 10.6 L Monocytes % 8.7 Eosinophils % 6.6 Basophils % 0.4 Nucleated Red Blood 0.0 Cells % Immature 0.040 H Granulocytes # Neutrophils # 8.5 H Lymphocytes # 1.2 Monocytes # 1.0 H Eosinophils # 0.8 H Basophils # 0.1 Nucleated Red Blood 0.0 Cells # Test 11/18/18 13:26 11/18/18 20:38 Bedside Glucose 136 143 Medications Medication Current Medications Ondansetron HCl (Zofran Inj) 4 mg Q6H PRN IV NAUSEA AND/OR VOMITING; Start 11/11/18 at 23:00 Acetaminophen (Tylenol Liquid) 650 mg Q6H PRN PO FEVER Last administered on 11/18/18at 15:06; Admin Dose 650 MG; Start 11/11/18 at 23:00 Morphine Sulfate (morphine) 2 mg Q4H PRN IV PAIN LEVEL 7-10 Last administered on 11/12/18 05:26; Admin Dose 2 MG; Start 11/11/18 at 23:00 Insulin Aspart (Novolog Insulin Pen) NOVOLOG *MODERATE* ALGORI... Q4 SC Last administered on 11/18/18 20:55; Admin Dose 2 UNIT; Start 11/12/18 at 05:00 Miscellaneous Information 1 ea NOTE XX ; Start 11/12/18 at 03:00 Glucose (Glutose) 15 gm Q15M PRN PO DECREASED GLUCOSE; Start 11/12/18 at 03:00 Glucose (Glutose) 22.5 gm Q15M PRN PO DECREASED GLUCOSE; Start 11/12/18 at 03:00 Dextrose (D50w Syringe) 25 ml Q15M PRN IV DECREASED GLUCOSE; Start 11/12/18 at 03:00 Dextrose (D50w Syringe) 50 ml Q15M PRN IV DECREASED GLUCOSE; Start 11/12/18 at 03:00 Glucagon (Glucagen) 1 mg Q15M PRN IM DECREASED GLUCOSE; Start 11/12/18 at 03:00 Glucose (Glutose) 15 gm Q15M PRN BUCCAL DECREASED GLUCOSE; Start 11/12/18 at 03:00 Acetaminophen (Tylenol Tab) 650 mg Q4H PRN GTB MILD PAIN LEVEL 1-3 Last administered on 11/17/18 05:29; Admin Dose 650 MG; Start 11/12/18 at 09:30 Acetylcysteine (Mucomyst) 3 ml BID RESP THERAPY NEB Last administered on 11/18/18 20:08; Admin Dose 3 ML; Start 11/12/18 at 10:00 Atorvastatin Calcium (Lipitor) 80 mg QHS GTB Last administered on 11/18/18 20:36; Admin Dose 80 MG; Start 11/12/18 at 21:00 Bisacodyl (Dulcolax Supp) 10 mg Q24H PRN [place] CONSTIPATION; Start 11/12/18 at 09:30 Furosemide (Lasix) 20 mg DAILY GTB Last administered on 11/18/18 08:16; Admin Dose 20 MG; Start 11/12/18 at 09:30 Hydralazine HCl (Apresoline) 25 mg Q6 GTB Last administered on 11/18/18 18:08; Admin Dose 25 MG; Start 11/12/18 at 12:00 Lansoprazole (Prevacid) 30 mg BID@0600,1800 GTB Last administered on 11/18/18 17:51; Admin Dose 30 MG; Start 11/12/18 at 18:00 Magnesium Hydroxide (Milk Of Mag) 30 ml Q24H GTB Last administered on 11/18/18 08:16; Admin Dose 30 ML; Start 11/12/18 at 09:30 Senna (Senokot) 2 tab BID GTB Last administered on 11/18/18 20:36; Admin Dose 2 TAB; Start 11/12/18 at 09:30 Sucralfate (Carafate Susp) 1 gm QID GTB Last administered on 11/18/18 13:25; Admin Dose 1 GM; Start 11/12/18 at 13:00 Valproate Sodium (Depakene Liquid Cup) 500 mg Q8 GTB Last administered on 11/18/18 13:25; Admin Dose 500 MG; Start 11/12/18 at 10:00 Insulin Human NPH (Humulin N) 28 unit Q8 SC Last administered on 11/18/18 13:30; Admin Dose 28 UNIT; Start 11/12/18 at 10:00 Sodium Biphosphate/ Sodium Phosphate (Fleet Enema) 133 ml DAILY PRN [place] CONSTIPATION; Start 11/12/18 at 10:00 Lisinopril (Zestril) 10 mg DAILY GTB Last administered on 11/18/18 08:16; Admin Dose 10 MG; Start 11/14/18 at 09:00 Albuterol/ Ipratropium (Duoneb) 3 ml Q6H RESP THERAPY PRN HHN SHORTNESS OF BREATH Last administered on 11/18/18 20:08; Admin Dose 3 ML; Start 11/13/18 at 21:00 Vancomycin HCl (Vanco Iv Per Pharmacy) VANCOMYCIN PER PHARMA... PER PROTOCOL XX ; Start 11/17/18 at 13:00 Vancomycin HCl 1.25 gm/Sodium Chloride 250 ml @ 83.333 mls/ hr Q12H IVPB Last administered on 11/18/18 15:06; Admin Dose 83.333 MLS/HR; Start 11/18/18 at 03:00 Cefepime HCl 50 ml @ 100 mls/hr Q12 IVPB Last administered on 11/18/18at 20:36; Admin Dose 100 MLS/HR; Start 11/18/18 at 21:00 Miscellaneous Information (*Rx Drug Level Order Reminder*) VANCOMYCIN TROUGH AT 0200 0200 ONCE XX ; Start 11/19/18 at 02:00; Stop 11/19/18 at 02:01 Carvedilol (Coreg) 6.25 mg BID GTB ; Start 11/19/18 at 09:00 RAKESH CURTIS MD November 18, 2018 21:36
[2018-11-19] VITALS (15 sets, daily range): BP systolic 129–165; BP diastolic 69–89; PULSE 79–96; RESP 19–35
[2018-11-19] MEDS: INSULIN ASPART [NOVOLOG] 3 ML PEN SC SCH ×6 (01:09→21:35)
--- NOTE | 2018-11-19 02:13 | PN ---
DATE: 11/18/2018 ADDENDUM: I spoke with the patient's son, Eugenio and updated him regarding poor prognosis for any meaningful recovery. The patient's prognosis for independent recovery is nil and even at best will remains hemiplegic with significant cognitive deficit. The patient's recent MRI did not reveal any obstruction and ventriculomegaly is likely due to atrophy as well as chronic cranial defect. Code status and goals of care were discussed with the patient's son, Eugenio and code status was explained in detail. He requested that patient be made DNR, but he is not ready for switching Mr. Arroyo to comfort care at this time. He requested to continue treatment of his multiple medical conditions, but not to do anything heroic. The patient therefore has been made DNR, but will be continued on antibiotic and other medications for his multiple comorbidities. Approximately 30 minutes were spent. Dictated By: NIA DOMINGO MD AB/NTS Conf#: [id number] DID#: [id number] CC: RAKESH CURTIS MD; PARAS MURILLO MD;*End* [facility]
[2018-11-19] MEDS: VANCOMYCIN HCL 1.25 GM in SOD CHLORIDE 0.9% 250 ML IVPB SCH ×2 (02:52→18:01)
[2018-11-19] MEDS: LANSOPRAZOLE 30 MG CAP GTB SCH ×2 (06:04→17:17)
[2018-11-19] MEDS: VALPROIC ACID LIQUID CUP 250 MG/5 ML CUP GTB SCH ×3 (06:04→21:05)
[2018-11-19] MEDS: NPH, HUMAN INSULIN ISOPHANE 3ML VIAL SC SCH ×3 (06:07→21:35)
[2018-11-19] MEDS: ACETAMINOPHEN 650MG/20.3ML CUP PO PRN ×2 (06:51→15:08)
[2018-11-19] MEDS: ALBUTEROL/IPRATROPIUM (NEB) 3 ML AMP HHN PRN ×2 (07:59→19:43)
[2018-11-19] MEDS: ACETYLCYSTEINE 20% 4 ML VIAL NEB SCH ×2 (08:00→19:43)
[2018-11-19] MEDS: SUCRALFATE (100 MG/ML) 10ML CUP GTB SCH ×4 (10:41→21:05)
[2018-11-19] MEDS: MAGNESIUM HYDROXIDE 30ML CUP GTB SCH (10:41)
--- NOTE | 2018-11-19 10:41 | CONS ---
Consult Date/Type/Reason Admit Date/Time November 11, 2018 at 22:51 Initial Consult Date 11/14/18 Type of Consult Pulmonary Requesting Provider: NIA DOMINGO MD Date/Time of Note DATE: 11/19/18 TIME: 10:40 Subjective Patient remained stable this morning no respiratory distress. Transferred to telemetry Objective Vital Signs Date Temp Pulse Resp B/P (MAP) Pulse Ox O2 O2 Flow FiO2 Time Delivery Rate 11/19/18 99.0 87 131/69 98 Trach 08:36 (89) Collar 11/19/18 24 5.0 28 08:00 Intake and Output 11/18/18 11/18/18 11/19/18 1515:00 23:00 07:00 IntakeIntake Total 810 ml 1160 ml 960.000 ml OutputOutput Total 600 ml 580 ml 505 ml BalanceBalance 210 ml 580 ml 455.000 ml Exam GENERAL: Chronically ill-appearing gentleman on cool aerosol tracheostomy in place VITAL SIGNS: per chart NECK: Supple. No JVD or lymphadenopathy. CARDIAC EXAM: S1, S2. No added sounds or murmurs. CHEST: Diminished air entry bilaterally ABDOMEN: Soft, nontender. No guarding or rebound. EXTREMITIES: No cyanosis, clubbing edema +2. Vent Setting Fraction of Inspired Oxygen pe: 28 Results/Medications Result Diagram: 11/19/187 11/19/187 Results 24 hrs Laboratory Tests Test 11/18/18 13:26 11/18/18 20:38 11/18/18 22:12 11/19/18 01:06 Bedside Glucose 136 143 149 167 Test 11/19/18 01:40 11/19/18 04:27 11/19/18 04:40 11/19/18 06:06 Vancomycin Level 12.7 Trough White Blood Count 10.5 Red Blood Count 3.89 L Hemoglobin 10.9 L Hematocrit 34.4 L Mean Corpuscular 88.4 Volume Mean Corpuscular 28.0 L Hemoglobin Mean Corpuscular 31.7 L Hemoglobin Concent Red Cell 16.0 H Distribution Width Platelet Count 170 Mean Platelet Volume 12.9 H Immature 0.500 H Granulocytes % Neutrophils % 71.5 Lymphocytes % 10.3 L Monocytes % 8.2 Eosinophils % 8.9 H Basophils % 0.6 Nucleated Red Blood 0.0 Cells % Immature 0.050 H Granulocytes # Neutrophils # 7.5 Lymphocytes # 1.1 Monocytes # 0.9 Eosinophils # 0.9 H Basophils # 0.1 Nucleated Red Blood 0.0 Cells # Sodium Level 135 Potassium Level 4.2 Chloride Level 98 Carbon Dioxide Level 34 H Anion Gap 3 L Blood Urea Nitrogen 22 H Creatinine 0.57 L Est Glomerular > 60 Filtrat Rate mL/min Glucose Level 160 Calcium Level 7.8 L Bedside Glucose 156 154 Test 11/19/18 10:37 Bedside Glucose 141 Medications Current Medications Ondansetron HCl (Zofran Inj) 4 mg Q6H PRN IV NAUSEA AND/OR VOMITING; Start 11/11/18 at 23:00 Acetaminophen (Tylenol Liquid) 650 mg Q6H PRN PO FEVER Last administered on 11/19/18at 06:51; Admin Dose 650 MG; Start 11/11/18 at 23:00 Morphine Sulfate (morphine) 2 mg Q4H PRN IV PAIN LEVEL 7-10 Last administered on 11/12/18at 05:26; Admin Dose 2 MG; Start 11/11/18 at 23:00 Insulin Aspart (Novolog Insulin Pen) NOVOLOG *MODERATE* ALGORI... Q4 SC Last administered on 11/19/18at 04:44; Admin Dose 2 UNIT; Start 11/12/18 at 05:00 Miscellaneous Information 1 ea NOTE XX ; Start 11/12/18 at 03:00 Glucose (Glutose) 15 gm Q15M PRN PO DECREASED GLUCOSE; Start 11/12/18 at 03:00 Glucose (Glutose) 22.5 gm Q15M PRN PO DECREASED GLUCOSE; Start 11/12/18 at 03:00 Dextrose (D50w Syringe) 25 ml Q15M PRN IV DECREASED GLUCOSE; Start 11/12/18 at 03:00 Dextrose (D50w Syringe) 50 ml Q15M PRN IV DECREASED GLUCOSE; Start 11/12/18 at 03:00 Glucagon (Glucagen) 1 mg Q15M PRN IM DECREASED GLUCOSE; Start 11/12/18 at 03:00 Glucose (Glutose) 15 gm Q15M PRN BUCCAL DECREASED GLUCOSE; Start 11/12/18 at 03:00 Acetaminophen (Tylenol Tab) 650 mg Q4H PRN GTB MILD PAIN LEVEL 1-3 Last administered on 11/17/18at 05:29; Admin Dose 650 MG; Start 11/12/18 at 09:30 Acetylcysteine (Mucomyst) 3 ml BID RESP THERAPY NEB Last administered on 11/19/18 08:00; Admin Dose 3 ML; Start 11/12/18 at 10:00 Atorvastatin Calcium (Lipitor) 80 mg QHS GTB Last administered on 11/18/18 20:36; Admin Dose 80 MG; Start 11/12/18 at 21:00 Bisacodyl (Dulcolax Supp) [address] CONSTIPATION; Start 11/12/18 at 09:30 Furosemide (Lasix) 20 mg DAILY GTB Last administered on 11/18/18 08:16; Admin Dose 20 MG; Start 11/12/18 at 09:30 Hydralazine HCl (Apresoline) 25 mg Q6 GTB Last administered on 11/19/18 06:05; Admin Dose 25 MG; Start 11/12/18 at 12:00 Lansoprazole (Prevacid) 30 mg BID@0600,1800 GTB Last administered on 11/19/18 06:04; Admin Dose 30 MG; Start 11/12/18 at 18:00 Magnesium Hydroxide (Milk Of Mag) 30 ml Q24H GTB Last administered on 11/18/18 08:16; Admin Dose 30 ML; Start 11/12/18 at 09:30 Senna (Senokot) 2 tab BID GTB Last administered on 11/18/18 20:36; Admin Dose 2 TAB; Start 11/12/18 at 09:30 Sucralfate (Carafate Susp) 1 gm QID GTB Last administered on 11/18/18 13:25; Admin Dose 1 GM; Start 11/12/18 at 13:00 Valproate Sodium (Depakene Liquid Cup) 500 mg Q8 GTB Last administered on 11/19/18 06:04; Admin Dose 500 MG; Start 11/12/18 at 10:00 Insulin Human NPH (Humulin N) 28 unit Q8 SC Last administered on 11/19/18 06:07; Admin Dose 28 UNIT; Start 11/12/18 at 10:00 Sodium Biphosphate/ Sodium Phosphate (Fleet Enema) [address] CONSTIPATION; Start 11/12/18 at 10:00 Lisinopril (Zestril) 10 mg DAILY GTB Last administered on 11/18/18at 08:16; Admin Dose 10 MG; Start 11/14/18 at 09:00 Albuterol/ Ipratropium (Duoneb) 3 ml Q6H RESP THERAPY PRN HHN SHORTNESS OF BREATH Last administered on 11/19/18at 07:59; Admin Dose 3 ML; Start 11/13/18 at 21:00 Vancomycin HCl (Vanco Iv Per Pharmacy) VANCOMYCIN PER PHARMA... PER PROTOCOL XX ; Start 11/17/18 at 13:00 Vancomycin HCl 1.25 gm/Sodium Chloride 250 ml @ 83.333 mls/ hr Q12H IVPB Last administered on 11/19/18at 02:52; Admin Dose 83.333 MLS/HR; Start 11/18/18 at 03:00 Cefepime HCl 50 ml @ 100 mls/hr Q12 IVPB Last administered on 11/18/18at 20:36; Admin Dose 100 MLS/HR; Start 11/18/18 at 21:00 Carvedilol (Coreg) 6.25 mg BID GTB ; Start 11/19/18 at 09:00 Assessment/Plan Hospital Course (Demo Recall) Assessment 1. Chronic respiratory failure with tracheostomy and T-tube 2. Acute on chronic cerebral hemorrhages. 3. Encephalopathy secondary to above 4. History of seizure disorder, MRI pending. 5. Healthcare associated pneumonia Plan 1. Continue cool aerosol 2. Antibiotics for UTI and pneumonia 3. Tube feeding as tolerated 4. No neurosurgical intervention scheduled. Family considering comfort marvin ures Critical care time 40 minutes DNR appreciated. LULU GARCIA MD, [facility] November 19, 2018 10:41
[2018-11-19] MEDS: CEFEPIME 1GM/50 ML (PMX) 50 ML IVPB SCH ×2 (10:42→21:05)
[2018-11-19] MEDS: SENNA TAB GTB SCH ×2 (10:42→21:06)
[2018-11-19] MEDS: LISINOPRIL 5 MG TAB GTB SCH (10:42)
[2018-11-19] MEDS: FUROSEMIDE 20 MG TAB GTB SCH (10:46)
--- NOTE | 2018-11-19 13:17 | PN ---
Date/Time of Note Date/Time of Note DATE: 11/19/18 TIME: 13:17 Assessment/Plan VTE Prophylaxis Risk score (from [facility] [place]0 risk: 9 SCD applied (from [facility] [place]): Yes SCD contraindicated: other Pharmacological prophylaxis: other Pharm contraindication: surgical contra Lines/Catheters [facility] Peripheral IV Urinary Cath still in place: Yes Reason Cath still needed: urinary retention Assessment/Plan Assessment/Plan Intracranial hemorrhage, Dr. Espana is following in neurosurgery consultation. Family does not want any aggressive treatment. -Sepsis with fever and leukocytosis most likely secondary to HCAP. Continue antibiotics per ID. Dr. Kiran is following in infection disease consultation. -Recent history of right hemicraniectomy, details are not available. Records requested. -Chronic respiratory failure with tracheostomy, patient is currently on T-tube. -Healthcare associated pneumonia, continue antibiotics. -Coronary artery disease, status post PTCA with stent placement -Ischemic cardiomyopathy -Diabetes -Dysphagia with G-tube -Dyslipidemia -Obesity with BMI of 35.3 Further recommendations depends on clinical course. Plan of care discussed with Dr. Cortez. Result Diagram: 11/19/18 0427 11/19/18426 Results 24hrs Laboratory Tests Test 11/18/18 13:26 11/18/18 20:38 11/18/18 22:12 11/19/18 01:06 Bedside Glucose 136 143 149 167 Test 11/19/18 01:40 11/19/18 04:27 11/19/18 04:40 11/19/18 06:06 Vancomycin Level 12.7 Trough White Blood Count 10.5 Red Blood Count 3.89 L Hemoglobin 10.9 L Hematocrit 34.4 L Mean Corpuscular 88.4 Volume Mean Corpuscular 28.0 L Hemoglobin Mean Corpuscular 31.7 L Hemoglobin Concent Red Cell 16.0 H Distribution Width Platelet Count 170 Mean Platelet Volume 12.9 H Immature 0.500 H Granulocytes % Neutrophils % 71.5 Lymphocytes % 10.3 L Monocytes % 8.2 Eosinophils % 8.9 H Basophils % 0.6 Nucleated Red Blood 0.0 Cells % Immature 0.050 H Granulocytes # Neutrophils # 7.5 Lymphocytes # 1.1 Monocytes # 0.9 Eosinophils # 0.9 H Basophils # 0.1 Nucleated Red Blood 0.0 Cells # Sodium Level 135 Potassium Level 4.2 Chloride Level 98 Carbon Dioxide Level 34 H Anion Gap 3 L Blood Urea Nitrogen 22 H Creatinine 0.57 L Est Glomerular > 60 Filtrat Rate mL/min Glucose Level 160 Calcium Level 7.8 L Bedside Glucose 156 154 Test 11/19/18 10:37 11/19/18 13:07 Bedside Glucose 141 153 Subjective 24 Hr Interval Summary Free Text/Dictation nad afebrile; no seizure activity reported no new events reported overnight dw staff Subjective hx not possible: pt non-verbal Constitutional: requiring O2 Exam/Review of Systems Exam Vitals Vital Signs Date Temp Pulse Resp B/P (MAP) Pulse Ox O2 O2 Flow FiO2 Time Delivery Rate 11/19/18 88 12:36 11/19/18 98.9 20 165/82 98 Trach 11:06 (109) Collar 11/19/18 5.0 28 08:00 Intake and Output 11/18/18 11/18/18 11/19/18 1515:00 23:00 07:00 IntakeIntake Total 810 ml 1160 ml 960.000 ml OutputOutput Total 600 ml 580 ml 505 ml BalanceBalance 210 ml 580 ml 455.000 ml Constitutional: non-verbal, obese Psych: nl mood/affect Head: other Eyes: nl lids, nl sclera ENMT: nl external ears & nose Neck: supple, other (trach intcat) Respiratory: diminished breath sounds, other (On T- Tbe ) Cardiovascular: nl pulses, other (s1s2) Gastrointestinal: soft Musculoskeletal: muscle weakness Extremities: edema Neurological: unresponsive Results Results 24hrs Laboratory Tests Test 11/18/18 13:26 11/18/18 20:38 11/18/18 22:12 11/19/18 01:06 Bedside Glucose 136 143 149 167 Test 11/19/18 01:40 11/19/18 04:27 11/19/18 04:40 11/19/18 06:06 Vancomycin Level 12.7 Trough White Blood Count 10.5 Red Blood Count 3.89 L Hemoglobin 10.9 L Hematocrit 34.4 L Mean Corpuscular 88.4 Volume Mean Corpuscular 28.0 L Hemoglobin Mean Corpuscular 31.7 L Hemoglobin Concent Red Cell 16.0 H Distribution Width Platelet Count 170 Mean Platelet Volume 12.9 H Immature 0.500 H Granulocytes % Neutrophils % 71.5 Lymphocytes % 10.3 L Monocytes % 8.2 Eosinophils % 8.9 H Basophils % 0.6 Nucleated Red Blood 0.0 Cells % Immature 0.050 H Granulocytes # Neutrophils # 7.5 Lymphocytes # 1.1 Monocytes # 0.9 Eosinophils # 0.9 H Basophils # 0.1 Nucleated Red Blood 0.0 Cells # Sodium Level 135 Potassium Level 4.2 Chloride Level 98 Carbon Dioxide Level 34 H Anion Gap 3 L Blood Urea Nitrogen 22 H Creatinine 0.57 L Est Glomerular > 60 Filtrat Rate mL/min Glucose Level 160 Calcium Level 7.8 L Bedside Glucose 156 154 Test 11/19/18 10:37 11/19/18 13:07 Bedside Glucose 141 153 Medications Medication Current Medications Ondansetron HCl (Zofran Inj) 4 mg Q6H PRN IV NAUSEA AND/OR VOMITING; Start 11/11/18 at 23:00 Acetaminophen (Tylenol Liquid) 650 mg Q6H PRN PO FEVER Last administered on 11/19/18at 06:51; Admin Dose 650 MG; Start 11/11/18 at 23:00 Morphine Sulfate (morphine) 2 mg Q4H PRN IV PAIN LEVEL 7-10 Last administered on 11/12/18at 05:26; Admin Dose 2 MG; Start 11/11/18 at 23:00 Insulin Aspart (Novolog Insulin Pen) NOVOLOG *MODERATE* ALGORI... Q4 SC Last administered on 11/19/18at 04:44; Admin Dose 2 UNIT; Start 11/12/18 at 05:00 Miscellaneous Information 1 ea NOTE XX ; Start 11/12/18 at 03:00 Glucose (Glutose) 15 gm Q15M PRN PO DECREASED GLUCOSE; Start 11/12/18 at 03:00 Glucose (Glutose) 22.5 gm Q15M PRN PO DECREASED GLUCOSE; Start 11/12/18 at 03:00 Dextrose (D50w Syringe) 25 ml Q15M PRN IV DECREASED GLUCOSE; Start 11/12/18 at 03:00 Dextrose (D50w Syringe) 50 ml Q15M PRN IV DECREASED GLUCOSE; Start 11/12/18 at 03:00 Glucagon (Glucagen) 1 mg Q15M PRN IM DECREASED GLUCOSE; Start 11/12/18 at 03:00 Glucose (Glutose) 15 gm Q15M PRN BUCCAL DECREASED GLUCOSE; Start 11/12/18 at 03:00 Acetaminophen (Tylenol Tab) 650 mg Q4H PRN GTB MILD PAIN LEVEL 1-3 Last administered on 11/17/18 05:29; Admin Dose 650 MG; Start 11/12/18 at 09:30 Acetylcysteine (Mucomyst) 3 ml BID RESP THERAPY NEB Last administered on 11/19/18 08:00; Admin Dose 3 ML; Start 11/12/18 at 10:00 Atorvastatin Calcium (Lipitor) 80 mg QHS GTB Last administered on 11/18/18 20:36; Admin Dose 80 MG; Start 11/12/18 at 21:00 Bisacodyl (Dulcolax Supp) 10 mg Q24H PRN [place] CONSTIPATION; Start 11/12/18 at 09:30 Furosemide (Lasix) 20 mg DAILY GTB Last administered on 11/19/18 10:46; Admin Dose 20 MG; Start 11/12/18 at 09:30 Hydralazine HCl (Apresoline) 25 mg Q6 GTB Last administered on 11/19/18 13:11; Admin Dose 25 MG; Start 11/12/18 at 12:00 Lansoprazole (Prevacid) 30 mg BID@0600,1800 GTB Last administered on 11/19/18 06:04; Admin Dose 30 MG; Start 11/12/18 at 18:00 Magnesium Hydroxide (Milk Of Mag) 30 ml Q24H GTB Last administered on 11/19/18 10:41; Admin Dose 30 ML; Start 11/12/18 at 09:30 Senna (Senokot) 2 tab BID GTB Last administered on 11/19/18 10:42; Admin Dose 2 TAB; Start 11/12/18 at 09:30 Sucralfate (Carafate Susp) 1 gm QID GTB Last administered on 11/19/18 13:09; Admin Dose 1 GM; Start 11/12/18 at 13:00 Valproate Sodium (Depakene Liquid Cup) 500 mg Q8 GTB Last administered on 11/19/18 06:04; Admin Dose 500 MG; Start 11/12/18 at 10:00 Insulin Human NPH (Humulin N) 28 unit Q8 SC Last administered on 11/19/18 06:07; Admin Dose 28 UNIT; Start 11/12/18 at 10:00 Sodium Biphosphate/ Sodium Phosphate (Fleet Enema) 133 ml DAILY PRN [place] CONSTIPATION; Start 11/12/18 at 10:00 Lisinopril (Zestril) 10 mg DAILY GTB Last administered on 11/19/18 10:42; Admin Dose 10 MG; Start 11/14/18 at 09:00 Albuterol/ Ipratropium (Duoneb) 3 ml Q6H RESP THERAPY PRN HHN SHORTNESS OF BREATH Last administered on 11/19/18 07:59; Admin Dose 3 ML; Start 11/13/18 at 21:00 Vancomycin HCl (Vanco Iv Per Pharmacy) VANCOMYCIN PER PHARMA... PER PROTOCOL XX ; Start 11/17/18 at 13:00 Vancomycin HCl 1.25 gm/Sodium Chloride 250 ml @ 83.333 mls/ hr Q12H IVPB Last administered on 11/19/18 02:52; Admin Dose 83.333 MLS/HR; Start 11/18/18 at 03:00 Cefepime HCl 50 ml @ 100 mls/hr Q12 IVPB Last administered on 11/19/18 10:42; Admin Dose 100 MLS/HR; Start 11/18/18 at 21:00 Carvedilol (Coreg) 6.25 mg BID GTB Last administered on 11/19/18 10:43; Admin Dose 6.25 MG; Start 11/19/18 at 09:00 REGINA BUI November 19, 2018 13:17
--- NOTE | 2018-11-19 15:37 | CONS ---
Assessment/Plan Assessment/Plan Hospital Course (Demo Recall) IMPRESSION: 1. Abnormal electrocardiogram, assess for acute coronary syndrome.-neg trop x 3/EF 30-35% 2. Cardiomyopathy with decreased left ventricular ejection fraction. EF 30-35% by echo this admit 3. Congestive heart failure, systolic, chronic. 4. Hypertension, under reasonable control in the setting of acute hemorrhage. 5. Intracranial hemorrhage. 6. Chronic encephalopathy. 7. Prior craniectomy. 8. History of prior PTCA and stent placement. 9. Anemia. 10. Tachycardia-S tach today ? etiology, autonomic dysfunction 11.fevers-ongoing 12. SVT-overnight at 160-170 regular, ? AVNRT Recc: -Now on tele -continue hydralazine/ACEI and will further incrase coreg -s/p dose of IVP digoxin -Continue statin -ongoing NRSG eval -Rx fevers -Continue abx's and f/u cx data -Now DNR Consultation Date/Type/Reason Admit Date/Time November 11, 2018 at 22:51 Initial Consult Date 11/12/18 Type of Consult Cardiology Reason for Consultation Cardiomyuopathy Requesting Provider: NIA DOMINGO MD Date/Time of Note DATE: 11/19/18 TIME: 15:32 Exam/Review of Systems Vital Signs Vitals Vital Signs Date Temp Pulse Resp B/P (MAP) Pulse Ox O2 O2 Flow FiO2 Time Delivery Rate 11/19/18 105.0 15:08 11/19/18 88 12:36 11/19/18 20 165/82 98 Trach 11:06 (109) Collar 11/19/18 5.0 28 08:00 Intake and Output 11/18/18 11/18/18 11/19/18 1515:00 23:00 07:00 IntakeIntake Total 810 ml 1160 ml 960.000 ml OutputOutput Total 600 ml 580 ml 505 ml BalanceBalance 210 ml 580 ml 455.000 ml Exam Exam ,Review of Systems: CONSTITUTIONAL: No fevers, chills. PULMONARY: No sob CARDIOVASCULAR: No chest pain/palpitations GASTROINTESTINAL: No nausea/vomiting. GENITOURINARY: No hematuria/dysuria. MUSCULOSKELETAL: No myagias/arthalgias. PSYCHIATRIC: The patient denies depression. NEUROLOGIC: encephalopathic Constitutional: oriented, other (encephalopathy) Psych: no complaints Head: normocephalic ENMT: mucosa pink and moist Neck: supple, jvd (9 cm water) Respiratory: clear to auscultation Cardiovascular: regular rate and rhythm Gastrointestinal: soft, non-tender Musculoskeletal: muscle tone (normal) Extremities: edema (none) Neurological: unresponsive Labs Result Diagram: 11/19/187 11/19/18 0427 Results 24hrs Laboratory Tests Test 11/18/18 20:38 11/18/18 22:12 11/19/18 01:06 11/19/18 01:40 Bedside Glucose 143 149 167 Vancomycin Level 12.7 Trough Test 11/19/18 04:27 11/19/18 04:40 11/19/18 06:06 11/19/18 10:37 White Blood Count 10.5 Red Blood Count 3.89 L Hemoglobin 10.9 L Hematocrit 34.4 L Mean Corpuscular 88.4 Volume Mean Corpuscular 28.0 L Hemoglobin Mean Corpuscular 31.7 L Hemoglobin Concent Red Cell 16.0 H Distribution Width Platelet Count 170 Mean Platelet Volume 12.9 H Immature 0.500 H Granulocytes % Neutrophils % 71.5 Lymphocytes % 10.3 L Monocytes % 8.2 Eosinophils % 8.9 H Basophils % 0.6 Nucleated Red Blood 0.0 Cells % Immature 0.050 H Granulocytes # Neutrophils # 7.5 Lymphocytes # 1.1 Monocytes # 0.9 Eosinophils # 0.9 H Basophils # 0.1 Nucleated Red Blood 0.0 Cells # Sodium Level 135 Potassium Level 4.2 Chloride Level 98 Carbon Dioxide Level 34 H Anion Gap 3 L Blood Urea Nitrogen 22 H Creatinine 0.57 L Est Glomerular > 60 Filtrat Rate mL/min Glucose Level 160 Calcium Level 7.8 L Bedside Glucose 156 154 141 Test 11/19/18 13:07 Bedside Glucose 153 Medications Medications Current Medications Ondansetron HCl (Zofran Inj) 4 mg Q6H PRN IV NAUSEA AND/OR VOMITING; Start 11/11/18 at 23:00 Acetaminophen (Tylenol Liquid) 650 mg Q6H PRN PO FEVER Last administered on 11/19/18at 15:08; Admin Dose 650 MG; Start 11/11/18 at 23:00 Morphine Sulfate (morphine) 2 mg Q4H PRN IV PAIN LEVEL 7-10 Last administered on 11/12/18at 05:26; Admin Dose 2 MG; Start 11/11/18 at 23:00 Insulin Aspart (Novolog Insulin Pen) NOVOLOG *MODERATE* ALGORI... Q4 SC Last administered on 11/19/18at 14:00; Admin Dose 2 UNIT; Start 11/12/18 at 05:00 Miscellaneous Information 1 ea NOTE XX ; Start 11/12/18 at 03:00 Glucose (Glutose) 15 gm Q15M PRN PO DECREASED GLUCOSE; Start 11/12/18 at 03:00 Glucose (Glutose) 22.5 gm Q15M PRN PO DECREASED GLUCOSE; Start 11/12/18 at 03:00 Dextrose (D50w Syringe) 25 ml Q15M PRN IV DECREASED GLUCOSE; Start 11/12/18 at 03:00 Dextrose (D50w Syringe) 50 ml Q15M PRN IV DECREASED GLUCOSE; Start 11/12/18 at 03:00 Glucagon (Glucagen) 1 mg Q15M PRN IM DECREASED GLUCOSE; Start 11/12/18 at 03:00 Glucose (Glutose) 15 gm Q15M PRN BUCCAL DECREASED GLUCOSE; Start 11/12/18 at 03:00 Acetaminophen (Tylenol Tab) 650 mg Q4H PRN GTB MILD PAIN LEVEL 1-3 Last a dministered on 11/17/18at 05:29; Admin Dose 650 MG; Start 11/12/18 at 09:30 Acetylcysteine (Mucomyst) 3 ml BID RESP THERAPY NEB Last administered on 11/19/18at 08:00; Admin Dose 3 ML; Start 11/12/18 at 10:00 Atorvastatin Calcium (Lipitor) 80 mg QHS GTB Last administered on 11/18/18at 20:36; Admin Dose 80 MG; Start 11/12/18 at 21:00 Bisacodyl (Dulcolax Supp) 10 mg Q24H PRN [place] CONSTIPATION; Start 11/12/18 at 09:30 Furosemide (Lasix) 20 mg DAILY GTB Last administered on 11/19/18at 10:46; Admin Dose 20 MG; Start 11/12/18 at 09:30 Hydralazine HCl (Apresoline) 25 mg Q6 GTB Last administered on 11/19/18at 13:11; Admin Dose 25 MG; Start 11/12/18 at 12:00 Lansoprazole (Prevacid) 30 mg BID@0600,1800 GTB Last administered on 11/19/18 06:04; Admin Dose 30 MG; Start 11/12/18 at 18:00 Magnesium Hydroxide (Milk Of Mag) 30 ml Q24H GTB Last administered on 11/19/18 10:41; Admin Dose 30 ML; Start 11/12/18 at 09:30 Senna (Senokot) 2 tab BID GTB Last administered on 11/19/18 10:42; Admin Dose 2 TAB; Start 11/12/18 at 09:30 Sucralfate (Carafate Susp) 1 gm QID GTB Last administered on 11/19/18 13:09; Admin Dose 1 GM; Start 11/12/18 at 13:00 Valproate Sodium (Depakene Liquid Cup) 500 mg Q8 GTB Last administered on 11/19/18 15:08; Admin Dose 500 MG; Start 11/12/18 at 10:00 Insulin Human NPH (Humulin N) 28 unit Q8 SC Last administered on 11/19/18 15:15; Admin Dose 28 UNIT; Start 11/12/18 at 10:00 Sodium Biphosphate/ Sodium Phosphate (Fleet Enema) 133 ml DAILY PRN [place] CONSTIPATION; Start 11/12/18 at 10:00 Lisinopril (Zestril) 10 mg DAILY GTB Last administered on 11/19/18 10:42; Admin Dose 10 MG; Start 11/14/18 at 09:00 Albuterol/ Ipratropium (Duoneb) 3 ml Q6H RESP THERAPY PRN HHN SHORTNESS OF BREATH Last administered on 11/19/18 07:59; Admin Dose 3 ML; Start 11/13/18 at 21:00 Vancomycin HCl (Vanco Iv Per Pharmacy) VANCOMYCIN PER PHARMA... PER PROTOCOL XX ; Start 11/17/18 at 13:00 Vancomycin HCl 1.25 gm/Sodium Chloride 250 ml @ 83.333 mls/ hr Q12H IVPB Last administered on 11/19/18 02:52; Admin Dose 83.333 MLS/HR; Start 11/18/18 at 03:00 Cefepime HCl 50 ml @ 100 mls/hr Q12 IVPB Last administered on 11/19/18 10:42; Admin Dose 100 MLS/HR; Start 11/18/18 at 21:00 Carvedilol (Coreg) 6.25 mg BID GTB Last administered on 11/19/18at 10:43; Admin Dose 6.25 MG; Start 11/19/18 at 09:00 MAE ROSALES November 19, 2018 15:37
--- NOTE | 2018-11-19 17:45 | CONS ---
Assessment/Plan Assessment/Plan Hospital Course (Demo Recall) - possible HCAP, however, given the polymicrobial growth of his resp culture, all bacteria may be colonizers of the airway: providencia, proteus, pseudomonas, group B strep, klebsiella - intermittent fever, probably due to HCAP and intra-parenchymal hemorrhage - Gram positive cocci in clusters in blood culture on 12/16/2018, possible contaminant. workup in process - Hx of CVA. 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 udluoka-dtlehcrz-dufemdbi lobes; stable large subacute R frontal temporal parietal intraparenchymal hemorrhage, plus encepha lomalacia/gliosis; stable moderate to severe ventriculomegaly; moderate b/l occipital horn acute intraventricular hemorrhage; chronic R paracentral pontine infarction; small chronic R cerebellar infarctions; L temporal lobe with associated encephalomalacia/gliosis within this region as well as laminar necrosis; moderate chronic microvascular ischemic changes; basilar dolichoectasia; extensive bilateral mastoid air cell effusions - aerococci in in urine culture on 11/14/2018, probable colonization - chronic hypoxic resp failure - h/o tracheostomy placement - unresponsive state due to extensive CVA recommendations - pending results: repeat cultures of blood from 11/17/2018, repeat urine culture from 11/17/2018, and resp culture (gram negatives) - continue IV vancomycin (re-start 11/17/2018) - continue IV cefepime (11/18/2018-). Pt completed pip/tazo (11/15/2018-11/17/2018) Management discussed with PT's RN Consultation Date/Type/Reason Admit Date/Time November 11, 2018 at 22:51 Initial Consult Date 11/15/18 Type of Consult ID Requesting Provider: NIA DOMINGO MD Date/Time of Note DATE: 11/19/18 TIME: 17:42 24 HR Interval Summary Subjective hx not possible: pt non-verbal, pt critical, pt critical status Exam/Review of Systems Exam Vitals Vital Signs Date Temp Pulse Resp B/P (MAP) Pulse Ox O2 O2 Flow FiO2 Time Delivery Rate 11/19/18 82 16:00 11/19/18 101.0 15:53 11/19/18 20 165/82 98 Trach 11:06 (109) Collar 11/19/18 5.0 28 08:00 Intake and Output 11/18/18 11/18/18 11/19/18 1515:00 23:00 07:00 IntakeIntake Total 810 ml 1160 ml 960.000 ml OutputOutput Total 600 ml 580 ml 505 ml BalanceBalance 210 ml 580 ml 455.000 ml Constitutional: non-verbal, frail Psych: other (unresponsive) Head: other (s/p craniectomy) Eyes: nl conjunctiva, other (periorbital swelling) ENMT: nl external ears & nose, nl nasal mucosa & septum, mucosa pink and moist Neck: non-tender Respiratory: congested cough Cardiovascular: regular rate and rhythm, nl pulses Gastrointestinal: soft, non-tender Musculoskeletal: nl extremities to inspection Extremities: No edema Neurological: unresponsive Results Result Diagram: 11/19/18 0427 11/19/18 0427 Results 24hrs Laboratory Tests Test 11/18/18 20:38 11/18/18 22:12 11/19/18 01:06 11/19/18 01:40 Bedside Glucose 143 149 167 Vancomycin Level 12.7 Trough Test 11/19/18 04:27 11/19/18 04:40 11/19/18 06:06 11/19/18 10:37 White Blood Count 10.5 Red Blood Count 3.89 L Hemoglobin 10.9 L Hematocrit 34.4 L Mean Corpuscular 88.4 Volume Mean Corpuscular 28.0 L Hemoglobin Mean Corpuscular 31.7 L Hemoglobin Concent Red Cell 16.0 H Distribution Width Platelet Count 170 Mean Platelet Volume 12.9 H Immature 0.500 H Granulocytes % Neutrophils % 71.5 Lymphocytes % 10.3 L Monocytes % 8.2 Eosinophils % 8.9 H Basophils % 0.6 Nucleated Red Blood 0.0 Cells % Immature 0.050 H Granulocytes # Neutrophils # 7.5 Lymphocytes # 1.1 Monocytes # 0.9 Eosinophils # 0.9 H Basophils # 0.1 Nucleated Red Blood 0.0 Cells # Sodium Level 135 Potassium Level 4.2 Chloride Level 98 Carbon Dioxide Level 34 H Anion Gap 3 L Blood Urea Nitrogen 22 H Creatinine 0.57 L Est Glomerular > 60 Filtrat Rate mL/min Glucose Level 160 Calcium Level 7.8 L Bedside Glucose 156 154 141 Test 11/19/18 13:07 11/19/18 17:16 Bedside Glucose 153 176 Medications Medication Current Medications Ondansetron HCl (Zofran Inj) 4 mg Q6H PRN IV NAUSEA AND/OR VOMITING; Start 11/11/18 at 23:00 Acetaminophen (Tylenol Liquid) 650 mg Q6H PRN PO FEVER Last administered on 11/19/18at 15:08; Admin Dose 650 MG; Start 11/11/18 at 23:00 Morphine Sulfate (morphine) 2 mg Q4H PRN IV PAIN LEVEL 7-10 Last administered on 11/12/18at 05:26; Admin Dose 2 MG; Start 11/11/18 at 23:00 Insulin Aspart (Novolog Insulin Pen) NOVOLOG *MODERATE* ALGORI... Q4 SC Last administered on 11/19/18at 14:00; Admin Dose 2 UNIT; Start 11/12/18 at 05:00 Miscellaneous Information 1 ea NOTE XX ; Start 11/12/18 at 03:00 Glucose (Glutose) 15 gm Q15M PRN PO DECREASED GLUCOSE; Start 11/12/18 at 03:00 Glucose (Glutose) 22.5 gm Q15M PRN PO DECREASED GLUCOSE; Start 11/12/18 at 03:00 Dextrose (D50w Syringe) 25 ml Q15M PRN IV DECREASED GLUCOSE; Start 11/12/18 at 03:00 Dextrose (D50w Syringe) 50 ml Q15M PRN IV DECREASED GLUCOSE; Start 11/12/18 at 03:00 Glucagon (Glucagen) 1 mg Q15M PRN IM DECREASED GLUCOSE; Start 11/12/18 at 03:00 Glucose (Glutose) 15 gm Q15M PRN BUCCAL DECREASED GLUCOSE; Start 11/12/18 at 03:00 Acetaminophen (Tylenol Tab) 650 mg Q4H PRN GTB MILD PAIN LEVEL 1-3 Last administered on 11/17/18at 05:29; Admin Dose 650 MG; Start 11/12/18 at 09:30 Acetylcysteine (Mucomyst) 3 ml BID RESP THERAPY NEB Last administered on 11/19/18at 08:00; Admin Dose 3 ML; Start 11/12/18 at 10:00 Atorvastatin Calcium (Lipitor) 80 mg QHS GTB Last administered on 11/18/18at 20:36; Admin Dose 80 MG; Start 11/12/18 at 21:00 Bisacodyl (Dulcolax Supp) 10 mg Q24H PRN [place] CONSTIPATION; Start 11/12/18 at 09:30 Furosemide (Lasix) 20 mg DAILY GTB Last administered on 11/19/18 10:46; Admin Dose 20 MG; Start 11/12/18 at 09:30 Hydralazine HCl (Apresoline) 25 mg Q6 GTB Last administered on 11/19/18 17:18; Admin Dose 25 MG; Start 11/12/18 at 12:00 Lansoprazole (Prevacid) 30 mg BID@0600,1800 GTB Last administered on 11/19/18 17:17; Admin Dose 30 MG; Start 11/12/18 at 18:00 Magnesium Hydroxide (Milk Of Mag) 30 ml Q24H GTB Last administered on 11/19/18 10:41; Admin Dose 30 ML; Start 11/12/18 at 09:30 Senna (Senokot) 2 tab BID GTB Last administered on 11/19/18 10:42; Admin Dose 2 TAB; Start 11/12/18 at 09:30 Sucralfate (Carafate Susp) 1 gm QID GTB Last administered on 11/19/18 17:17; Admin Dose 1 GM; Start 11/12/18 at 13:00 Valproate Sodium (Depakene Liquid Cup) 500 mg Q8 GTB Last administered on 11/19/18 15:08; Admin Dose 500 MG; Start 11/12/18 at 10:00 Insulin Human NPH (Humulin N) 28 unit Q8 SC Last administered on 11/19/18 15:15; Admin Dose 28 UNIT; Start 11/12/18 at 10:00 Sodium Biphosphate/ Sodium Phosphate (Fleet Enema) 133 ml DAILY PRN [place] CONSTIPATION; Start 11/12/18 at 10:00 Lisinopril (Zestril) 10 mg DAILY GTB Last administered on 11/19/18 10:42; Admin Dose 10 MG; Start 11/14/18 at 09:00 Albuterol/ Ipratropium (Duoneb) 3 ml Q6H RESP THERAPY PRN HHN SHORTNESS OF BREATH Last administered on 11/19/18 07:59; Admin Dose 3 ML; Start 11/13/18 at 21:00 Vancomycin HCl (Vanco Iv Per Pharmacy) VANCOMYCIN PER PHARMA... PER PROTOCOL XX ; Start 11/17/18 at 13:00 Vancomycin HCl 1.25 gm/Sodium Chloride 250 ml @ 83.333 mls/ hr Q12H IVPB Last administered on 11/19/18at 02:52; Admin Dose 83.333 MLS/HR; Start 11/18/18 at 03:00 Cefepime HCl 50 ml @ 100 mls/hr Q12 IVPB Last administered on 11/19/18at 10:42; Admin Dose 100 MLS/HR; Start 11/18/18 at 21:00 Carvedilol (Coreg) 12.5 mg BID GTB ; Start 11/19/18 at 21:00 APRIL JORDAN M.D. November 19, 2018 17:45
[2018-11-19] MEDS: ATORVASTATIN 80 MG TAB GTB SCH (21:06)
[2018-11-20] VITALS (11 sets, daily range): BP systolic 127–166; BP diastolic 73–88; PULSE 75–87; RESP 18–22
[2018-11-20] MEDS: INSULIN ASPART [NOVOLOG] 3 ML PEN SC SCH ×6 (00:39→21:39)
[2018-11-20] MEDS: ACETAMINOPHEN 650MG/20.3ML CUP PO PRN (03:38)
[2018-11-20] MEDS: VANCOMYCIN HCL 1.25 GM in SOD CHLORIDE 0.9% 250 ML IVPB SCH ×2 (04:02→15:23)
[2018-11-20] MEDS: LANSOPRAZOLE 30 MG CAP GTB SCH ×2 (05:23→18:01)
[2018-11-20] MEDS: VALPROIC ACID LIQUID CUP 250 MG/5 ML CUP GTB SCH ×3 (05:23→21:11)
[2018-11-20] MEDS: NPH, HUMAN INSULIN ISOPHANE 3ML VIAL SC SCH ×2 (05:36→13:11)
[2018-11-20] MEDS: ALBUTEROL/IPRATROPIUM (NEB) 3 ML AMP HHN PRN ×2 (08:20→20:28)
[2018-11-20] MEDS: ACETYLCYSTEINE 20% 4 ML VIAL NEB SCH ×2 (08:20→20:28)
[2018-11-20] MEDS: FUROSEMIDE 20 MG TAB GTB SCH (09:25)
[2018-11-20] MEDS: SENNA TAB GTB SCH ×2 (09:26→21:11)
[2018-11-20] MEDS: MAGNESIUM HYDROXIDE 30ML CUP GTB SCH (09:26)
[2018-11-20] MEDS: LISINOPRIL 5 MG TAB GTB SCH (09:26)
[2018-11-20] MEDS: CEFEPIME 1GM/50 ML (PMX) 50 ML IVPB SCH ×2 (09:26→21:10)
[2018-11-20] MEDS: SUCRALFATE (100 MG/ML) 10ML CUP GTB SCH ×4 (09:26→21:10)
--- NOTE | 2018-11-20 11:27 | PN ---
Date/Time of Note Date/Time of Note DATE: 11/20/18 TIME: 11:27 Assessment/Plan VTE Prophylaxis Risk score (from Ns)>0 risk: 6 SCD applied (from Ns): Yes Pharmacological prophylaxis: LMWH Lines/Catheters IV [facility]from [facility] [place] Urinary Cath still in place: Yes Reason Cath still needed: skin wounds contaminated by urine Assessment/Plan Hospital Course Intracranial hemorrhage, Dr. Espana is following in neurosurgery consultation. Family does not want any aggressive treatment. -Sepsis with fever and leukocytosis most likely secondary to HCAP. Continue antibiotics per ID. Dr. Kiran is following in infection disease consultation. -Recent history of right hemicraniectomy, details are not available. Records requested. -Chronic respiratory failure with tracheostomy, patient is currently on T-tube. -Healthcare associated pneumonia, continue antibiotics. -Coronary artery disease, status post PTCA with stent placement -Ischemic cardiomyopathy -Diabetes -Dysphagia with G-tube -Dyslipidemia -Obesity with BMI of 35.3 Result Diagram: 11/20/18 0626 11/19/18 0427 Results 24hrs Laboratory Tests Test 11/19/18 13:07 11/19/18 17:16 11/19/18 21:26 11/20/18 00:39 Bedside Glucose 153 176 158 116 Test 11/20/18 05:21 11/20/18 06:26 11/20/18 08:33 Bedside Glucose 107 136 White Blood Count 11.4 H Red Blood Count 3.85 L Hemoglobin 10.9 L Hematocrit 33.6 L Mean Corpuscular 87.3 Volume Mean Corpuscular 28.3 L Hemoglobin Mean Corpuscular 32.4 Hemoglobin Concent Red Cell Distribution 15.5 H Width Platelet Count 162 Mean Platelet Volume 12.8 H Immature Granulocytes 0.500 H % Neutrophils % 69.4 Lymphocytes % 10.3 L Monocytes % 9.1 Eosinophils % 10.3 H Basophils % 0.4 Nucleated Red Blood 0.0 Cells % Immature Granulocytes 0.060 H # Neutrophils # 7.9 H Lymphocytes # 1.2 Monocytes # 1.0 H Eosinophils # 1.2 H Basophils # 0.0 Nucleated Red Blood 0.0 Cells # Subjective 24 Hr Interval Summary Free Text/Dictation Patient sedated, on oxygen via trach Exam/Review of Systems Exam Vitals Vital Signs Date Temp Pulse Resp B/P (MAP) Pulse Ox O2 O2 Flow FiO2 Time Delivery Rate 11/20/18 99.1 79 18 140/77 97 11:02 (98) 11/20/18 Aerosol 5.0 28 08:21 T Tube Intake and Output 11/19/18 11/19/18 11/20/18 1515:00 23:00 07:00 IntakeIntake Total 835 ml 1220 ml OutputOutput Total 2200 ml 1800 ml BalanceBalance -1365 ml -580 ml Constitutional: well developed Head: normocephalic, atraumatic Neck: supple Respiratory: diminished breath sounds Cardiovascular: regular rate and rhythm Gastrointestinal: soft, non-tender Extremities: normal pulses Results Results 24hrs Laboratory Tests Test 11/19/18 13:07 11/19/18 17:16 11/19/18 21:26 11/20/18 00:39 Bedside Glucose 153 176 158 116 Test 11/20/18 05:21 11/20/18 06:26 11/20/18 08:33 Bedside Glucose 107 136 White Blood Count 11.4 H Red Blood Count 3.85 L Hemoglobin 10.9 L Hematocrit 33.6 L Mean Corpuscular 87.3 Volume Mean Corpuscular 28.3 L Hemoglobin Mean Corpuscular 32.4 Hemoglobin Concent Red Cell Distribution 15.5 H Width Platelet Count 162 Mean Platelet Volume 12.8 H Immature Granulocytes 0.500 H % Neutrophils % 69.4 Lymphocytes % 10.3 L Monocytes % 9.1 Eosinophils % 10.3 H Basophils % 0.4 Nucleated Red Blood 0.0 Cells % Immature Granulocytes 0.060 H # Neutrophils # 7.9 H Lymphocytes # 1.2 Monocytes # 1.0 H Eosinophils # 1.2 H Basophils # 0.0 Nucleated Red Blood 0.0 Cells # Medications Medication Current Medications Ondansetron HCl (Zofran Inj) 4 mg Q6H PRN IV NAUSEA AND/OR VOMITING; Start 11/11/18 at 23:00 Acetaminophen (Tylenol Liquid) 650 mg Q6H PRN PO FEVER Last administered on 11/20/18at 03:38; Admin Dose 650 MG; Start 11/11/18 at 23:00 Morphine Sulfate (morphine) 2 mg Q4H PRN IV PAIN LEVEL 7-10 Last administered on 11/12/18at 05:26; Admin Dose 2 MG; Start 11/11/18 at 23:00 Insulin Aspart (Novolog Insulin Pen) NOVOLOG *MODERATE* ALGORI... Q4 SC Last administered on 11/19/18at 21:35; Admin Dose 2 UNIT; Start 11/12/18 at 05:00 Miscellaneous Information 1 ea NOTE XX ; Start 11/12/18 at 03:00 Glucose (Glutose) 15 gm Q15M PRN PO DECREASED GLUCOSE; Start 11/12/18 at 03:00 Glucose (Glutose) 22.5 gm Q15M PRN PO DECREASED GLUCOSE; Start 11/12/18 at 03:00 Dextrose (D50w Syringe) 25 ml Q15M PRN IV DECREASED GLUCOSE; Start 11/12/18 at 03:00 Dextrose (D50w Syringe) 50 ml Q15M PRN IV DECREASED GLUCOSE; Start 11/12/18 at 03:00 Glucagon (Glucagen) 1 mg Q15M PRN IM DECREASED GLUCOSE; Start 11/12/18 at 03:00 Glucose (Glutose) 15 gm Q15M PRN BUCCAL DECREASED GLUCOSE; Start 11/12/18 at 03:00 Acetaminophen (Tylenol Tab) 650 mg Q4H PRN GTB MILD PAIN LEVEL 1-3 Last administered on 11/17/18at 05:29; Admin Dose 650 MG; Start 11/12/18 at 09:30 Acetylcysteine (Mucomyst) 3 ml BID RESP THERAPY NEB Last administered on 11/20/18at 08:20; Admin Dose 3 ML; Start 11/12/18 at 10:00 Atorvastatin Calcium (Lipitor) 80 mg QHS GTB Last administered on 11/19/18at 21:06; Admin Dose 80 MG; Start 11/12/18 at 21:00 Bisacodyl (Dulcolax Supp) 10 mg Q24H PRN [place] CONSTIPATION; Start 11/12/18 at 09:30 Furosemide (Lasix) 20 mg DAILY GTB Last administered on 11/20/18at 09:25; Admin Dose 20 MG; Start 11/12/18 at 09:30 Hydralazine HCl (Apresoline) 25 mg Q6 GTB Last administered on 11/20/18at 05:23; Admin Dose 25 MG; Start 11/12/18 at 12:00 Lansoprazole (Prevacid) 30 mg BID@0600,1800 GTB Last administered on 6/1/19at 05:23; Admin Dose 30 MG; Start 11/12/18 at 18:00 Magnesium Hydroxide (Milk Of Mag) 30 ml Q24H GTB Last administered on 11/20/18 09:26; Admin Dose 30 ML; Start 11/12/18 at 09:30 Senna (Senokot) 2 tab BID GTB Last administered on 11/20/18 09:26; Admin Dose 2 TAB; Start 11/12/18 at 09:30 Sucralfate (Carafate Susp) 1 gm QID GTB Last administered on 11/20/18 09:26; Admin Dose 1 GM; Start 11/12/18 at 13:00 Valproate Sodium (Depakene Liquid Cup) 500 mg Q8 GTB Last administered on 11/20/18 05:23; Admin Dose 500 MG; Start 11/12/18 at 10:00 Insulin Human NPH (Humulin N) 28 unit Q8 SC Last administered on 11/20/18 05:36; Admin Dose 28 UNIT; Start 11/12/18 at 10:00 Sodium Biphosphate/ Sodium Phosphate (Fleet Enema) 133 ml DAILY PRN [place] CONSTIPATION; Start 11/12/18 at 10:00 Lisinopril (Zestril) 10 mg DAILY GTB Last administered on 11/20/18 09:26; Admin Dose 10 MG; Start 11/14/18 at 09:00 Albuterol/ Ipratropium (Duoneb) 3 ml Q6H RESP THERAPY PRN HHN SHORTNESS OF BREATH Last administered on 11/20/18 08:20; Admin Dose 3 ML; Start 11/13/18 at 21:00 Vancomycin HCl (Vanco Iv Per Pharmacy) VANCOMYCIN PER PHARMA... PER PROTOCOL XX ; Start 11/17/18 at 13:00 Vancomycin HCl 1.25 gm/Sodium Chloride 250 ml @ 83.333 mls/ hr Q12H IVPB Last administered on 11/20/18 04:02; Admin Dose 83.333 MLS/HR; Start 11/18/18 at 03:00 Cefepime HCl 50 ml @ 100 mls/hr Q12 IVPB Last administered on 11/20/18 09:26; Admin Dose 100 MLS/HR; Start 11/18/18 at 21:00 Carvedilol (Coreg) 12.5 mg BID GTB Last administered on 11/20/18at 09:26; Admin Dose 12.5 MG; Start 11/19/18 at 21:00 PARAS MURILLO Nov 20, 2018 11:27
--- NOTE | 2018-11-20 12:00 | CONS ---
Consult Date/Type/Reason Admit Date/Time November 11, 2018 at 22:51 Initial Consult Date 11/15/18 Requesting Provider: NIA DOMINGO MD Date/Time of Note DATE: 11/20/18 TIME: 11:58 Subjective NO acute change - chronic debilitated state - con't resp Rx - sinus on tele now. ROS: No fever, no chills, no nausea, no vomiting, no diarrhea/constipation - per nurse Objective Vitals Vital Signs Date Temp Pulse Resp B/P (MAP) Pulse Ox O2 O2 Flow FiO2 Time Delivery Rate 11/20/18 99.1 79 18 140/77 97 11:02 (98) 11/20/18 Aerosol 5.0 28 08:21 T Tube Intake and Output 11/19/18 11/19/18 11/20/18 1515:00 23:00 07:00 IntakeIntake Total 835 ml 1220 ml OutputOutput Total 2200 ml 1800 ml BalanceBalance -1365 ml -580 ml Exam General: WN/WD/NAD, AOx 0 HEENT: Unicetric/atraumatic/EOMI (does not follow commands) NECK: trach Lymph: no lymphadenopathy HEART: regular with no S3, II/ systolic murmur at apex LUNGS: Coarse sounds ABD: soft, NT, ND, +BS : Intact Neuro: non focal SKIN: chronic changes EXT: trace edema Results/Medications Result Diagram: 11/20/18 0626 11/19/18 0427 Results 24 hrs Laboratory Tests Test 11/19/18 13:07 11/19/18 17:16 11/19/18 21:26 11/20/18 00:39 Bedside Glucose 153 176 158 116 Test 11/20/18 05:21 11/20/18 06:26 11/20/18 08:33 Bedside Glucose 107 136 White Blood Count 11.4 H Red Blood Count 3.85 L Hemoglobin 10.9 L Hematocrit 33.6 L Mean Corpuscular 87.3 Volume Mean Corpuscular 28.3 L Hemoglobin Mean Corpuscular 32.4 Hemoglobin Concent Red Cell Distribution 15.5 H Width Platelet Count 162 Mean Platelet Volume 12.8 H Immature Granulocytes 0.500 H % Neutrophils % 69.4 Lymphocytes % 10.3 L Monocytes % 9.1 Eosinophils % 10.3 H Basophils % 0.4 Nucleated Red Blood 0.0 Cells % Immature Granulocytes 0.060 H # Neutrophils # 7.9 H Lymphocytes # 1.2 Monocytes # 1.0 H Eosinophils # 1.2 H Basophils # 0.0 Nucleated Red Blood 0.0 Cells # Home Meds Reported Medications Acetylcysteine* (Mucomyst*) 4 Ml Soln, 3 ML NEB BID, EA 06/30/18 Na Phos,M-B/Na Phos,Di-Ba (Fleet Enema Extra) 230 Ml Enema, 230 ML RC NEEDED, ENEMA 06/30/18 Bisacodyl* (Bisacodyl*) 10 Mg Supp, 10 MG ND Q24H PRN for NEEDED, SUPP 06/30/18 Magnesium Hydroxide* (Milk Of Magnesia*) 400 Mg/5 Ml Oral.susp, 30 ML GTB Q24H for CONSTIPATION, ML 06/30/18 Sennosides* (Senna Lax*) 8.6 Mg Tablet, 2 TAB GTB BID, TAB 06/30/18 Insulin Aspart* (Novolog Insulin Pen*) 100 Unit/Ml Soln, 0 SC .SLIDING SCALE AC, EA IF BS 0-120=0 UNITS,120-150=0 UNIT, 151-200=1 UNIT, 201-250=2 UNIT, 251-300=3 UNIT, 301-350=4 UNIT, 351-400=5 UNIT, ABOVE 400=6 UNIT AND CALL MD. 06/30/18 Glucagon HCl (Glucagon HCl) 1 Mg Vial, 1 MG IJ NEEDED, VIAL IF BS BELOW 60 06/30/18 Insulin NPH Human Isophane (Humulin N) 100 Unit/1 Ml Vial, 28 UNIT SQ Q8H, VIAL 06/30/18 Hydrocodone/Acetaminophen ([place] 5-325 Tablet) 1 Each Tablet, 1 EACH GTB Q6H, TAB NEEDED FOR PAIN 06/30/18 Acetaminophen* (Tylenol*) 500 Mg Tab, 1000 MG GTB Q4H PRN for PAIN 4-6/10, TAB 06/30/18 Acetaminophen* (Tylenol*) 325 Mg Tablet, 650 MG GTB PRN PRN for TRACH TUBE CH CHRIS, TAB 06/30/18 Acetaminophen* (Tylenol*) 325 Mg Tablet, 650 MG GTB Q4H PRN for MILD PAIN LEVEL 1-3, TAB AND FEVER 100 AND ABOVE 06/30/18 Amino Acids/Protein Hydrolys (PRO-STAT LIQUID) 30 Ml Liquid.pkt, 30 ML GTB DAILY SUGAR FREE 06/30/18 Cran/Vitc/Mannose/Inulin/Brom (Uti-Stat Liquid) 3,875 Mg/30 Ml Liquid, 30 ML GTB DAILY 06/30/18 Hydralazine Hcl* (Hydralazine Hcl*) 25 Mg Tab, 25 MG GTB Q6H, #60 TAB 06/30/18 Furosemide* (Lasix* Liq) 40 Mg/5 Ml Cup, 20 MG GTB DAILY, EA 06/30/18 Carvedilol* (Carvedilol*) 3.125 Mg Tablet, 3.125 MG GTB BID, #60 TAB 06/30/18 Atorvastatin* (Atorvastatin*) 80 Mg Tablet, 80 MG GTB QHS, #30 TAB 06/30/18 Aspirin* (Aspirin* EC) 81 Mg Tablet.dr, 162 MG GTB DAILY, TAB 06/30/18 Valproic Acid* (Valproic Acid* Liq) 250 Mg/5 Ml Syrup, 10 ML GTB Q8H, ML 06/30/18 Sucralfate* (Carafate*) 1 Gm/10 Ml Susp, 1 GM GTB QID, EA 06/30/18 Lisinopril* (Lisinopril*) 5 Mg Tablet, 5 MG GTB DAILY, #30 TAB 06/30/18 Lansoprazole* (Lansoprazole*) 30 Mg Capsule.dr, 30 MG GTB BID, CAP 06/30/18 Lactobacillus Acidophilus (Acidophilus Lactobacillus) 1 Each Capsule, 1 EACH GTB BID, CAP 06/30/18 Medications Current Medications Ondansetron HCl (Zofran Inj) 4 mg Q6H PRN IV NAUSEA AND/OR VOMITING; Start 11/11/18 at 23:00 Acetaminophen (Tylenol Liquid) 650 mg Q6H PRN PO FEVER Last administered on 11/20/18at 03:38; Admin Dose 650 MG; Start 11/11/18 at 23:00 Morphine Sulfate (morphine) 2 mg Q4H PRN IV PAIN LEVEL 7-10 Last administered on 11/12/18at 05:26; Admin Dose 2 MG; Start 11/11/18 at 23:00 Insulin Aspart (Novolog Insulin Pen) NOVOLOG *MODERATE* ALGORI... Q4 SC Last administered on 11/19/18at 21:35; Admin Dose 2 UNIT; Start 11/12/18 at 05:00 Miscellaneous Information 1 ea NOTE XX ; Start 11/12/18 at 03:00 Glucose (Glutose) 15 gm Q15M PRN PO DECREASED GLUCOSE; Start 11/12/18 at 03:00 Glucose (Glutose) 22.5 gm Q15M PRN PO DECREASED GLUCOSE; Start 11/12/18 at 03:00 Dextrose (D50w Syringe) 25 ml Q15M PRN IV DECREASED GLUCOSE; Start 11/12/18 at 03:00 Dextrose (D50w Syringe) 50 ml Q15M PRN IV DECREASED GLUCOSE; Start 11/12/18 at 03:00 Glucagon (Glucagen) 1 mg Q15M PRN IM DECREASED GLUCOSE; Start 11/12/18 at 03:00 Glucose (Glutose) 15 gm Q15M PRN BUCCAL DECREASED GLUCOSE; Start 11/12/18 at 03:00 Acetaminophen (Tylenol Tab) 650 mg Q4H PRN GTB MILD PAIN LEVEL 1-3 Last administered on 11/17/18at 05:29; Admin Dose 650 MG; Start 11/12/18 at 09:30 Acetylcysteine (Mucomyst) 3 ml BID RESP THERAPY NEB Last administered on 11/20/18at 08:20; Admin Dose 3 ML; Start 11/12/18 at 10:00 Atorvastatin Calcium (Lipitor) 80 mg QHS GTB Last administered on 11/19/18at 21:06; Admin Dose 80 MG; Start 11/12/18 at 21:00 Bisacodyl (Dulcolax Supp) 10 mg Q24H PRN [place] CONSTIPATION; Start 11/12/18 at 09:30 Furosemide (Lasix) 20 mg DAILY GTB Last administered on 11/20/18at 09:25; Admin Dose 20 MG; Start 11/12/18 at 09:30 Hydralazine HCl (Apresoline) 25 mg Q6 GTB Last administered on 11/20/18at 05:23; Admin Dose 25 MG; Start 11/12/18 at 12:00 Lansoprazole (Prevacid) 30 mg BID@0600,1800 GTB Last administered on 11/20/18at 05:23; Admin Dose 30 MG; Start 11/12/18 at 18:00 Magnesium Hydroxide (Milk Of Mag) 30 ml Q24H GTB Last administered on 11/20/18 09:26; Admin Dose 30 ML; Start 11/12/18 at 09:30 Senna (Senokot) 2 tab BID GTB Last administered on 11/20/18 09:26; Admin Dose 2 TAB; Start 11/12/18 at 09:30 Sucralfate (Carafate Susp) 1 gm QID GTB Last administered on 11/20/18 09:26; Admin Dose 1 GM; Start 11/12/18 at 13:00 Valproate Sodium (Depakene Liquid Cup) 500 mg Q8 GTB Last administered on 11/20/18 05:23; Admin Dose 500 MG; Start 11/12/18 at 10:00 Insulin Human NPH (Humulin N) 28 unit Q8 SC Last administered on 11/20/18 05:36; Admin Dose 28 UNIT; Start 11/12/18 at 10:00 Sodium Biphosphate/ Sodium Phosphate (Fleet Enema) 133 ml DAILY PRN [place] CONSTIPATION; Start 11/12/18 at 10:00 Lisinopril (Zestril) 10 mg DAILY GTB Last administered on 11/20/18 09:26; Admin Dose 10 MG; Start 11/14/18 at 09:00 Albuterol/ Ipratropium (Duoneb) 3 ml Q6H RESP THERAPY PRN HHN SHORTNESS OF BREATH Last administered on 11/20/18 08:20; Admin Dose 3 ML; Start 11/13/18 at 21:00 Vancomycin HCl (Vanco Iv Per Pharmacy) VANCOMYCIN PER PHARMA... PER PROTOCOL XX ; Start 11/17/18 at 13:00 Vancomycin HCl 1.25 gm/Sodium Chloride 250 ml @ 83.333 mls/ hr Q12H IVPB Last administered on 11/20/18 04:02; Admin Dose 83.333 MLS/HR; Start 11/18/18 at 03:00 Cefepime HCl 50 ml @ 100 mls/hr Q12 IVPB Last administered on 11/20/18 09:26; Admin Dose 100 MLS/HR; Start 11/18/18 at 21:00 Carvedilol (Coreg) 12.5 mg BID GTB Last administered on 6/1/19at 09:26; Admin Dose 12.5 MG; Start 11/19/18 at 21:00 Assessment/Plan Hospital Course (Demo Recall) 1. Abnormal electrocardiogram, assess for acute coronary syndrome.-neg trop x 3/EF 30-35% - r/o Mi - no active CP now. [place] follow - NO VT noted. 2. Cardiomyopathy with decreased left ventricular ejection fraction. EF 30-35% by echo this admit - con't to keep euvolemic as tolerated. Not an ICD candidate. 3. Congestive heart failure, systolic, chronic - remove fluid as tolerated. 4. Hypertension, under reasonable control in the setting of acute hemorrhage. 5. Intracranial hemorrhage - no signs of cognitive improvement now. Unchanged. 6. Chronic encephalopathy- unchanged. 7. Prior craniectomy. 8. History of prior PTCA and stent placement. No further interventions planned. 9. Anemia. 10. Tachycardia-S tach today ? etiology, autonomic dysfunction - HR < 100 now. Now in sinus. 11.fevers - on anti-Bx. KYLEIGH MENDENHALL MD Nov 20, 2018 12:00
--- NOTE | 2018-11-20 16:17 | CONS ---
Consult Date/Type/Reason Admit Date/Time November 11, 2018 at 22:51 Initial Consult Date 11/15/18 Type of Consultation: Pulm Requesting Provider: NIA DOMINGO MD Date/Time of Note DATE: 11/20/18 TIME: 16:16 Subjective No events Low grade temp noted. Objective Vitals Vital Signs Date Temp Pulse Resp B/P (MAP) Pulse Ox O2 O2 Flow FiO2 Time Delivery Rate 11/20/18 81 16:01 11/20/18 99.5 18 130/74 99 15:27 (92) 11/20/18 5.0 28 14:23 11/20/18 Aerosol 14:23 T Tube Intake and Output 11/19/18 11/19/18 11/20/18 1515:00 23:00 07:00 IntakeIntake Total 835 ml 1220 ml OutputOutput Total 2200 ml 1800 ml BalanceBalance -1365 ml -580 ml Exam NECK: Supple. No JVD or lymphadenopathy. CARDIAC EXAM: S1, S2. No added sounds or murmurs. CHEST: Diminished air entry bilaterally ABDOMEN: Soft, nontender. No guarding or rebound. EXTREMITIES: No cyanosis, clubbing edema +2. Results/Medications Result Diagram: 11/20/18 0626 11/19/18 0427 Results 24 hrs Laboratory Tests Test 11/19/18 17:16 11/19/18 21:26 11/20/18 00:39 11/20/18 05:21 Bedside Glucose 176 158 116 107 Test 11/20/18 06:26 11/20/18 08:33 11/20/18 13:03 White Blood Count 11.4 H Red Blood Count 3.85 L Hemoglobin 10.9 L Hematocrit 33.6 L Mean Corpuscular 87.3 Volume Mean Corpuscular 28.3 L Hemoglobin Mean Corpuscular 32.4 Hemoglobin Concent Red Cell Distribution 15.5 H Width Platelet Count 162 Mean Platelet Volume 12.8 H Immature Granulocytes 0.500 H % Neutrophils % 69.4 Lymphocytes % 10.3 L Monocytes % 9.1 Eosinophils % 10.3 H Basophils % 0.4 Nucleated Red Blood 0.0 Cells % Immature Granulocytes 0.060 H # Neutrophils # 7.9 H Lymphocytes # 1.2 Monocytes # 1.0 H Eosinophils # 1.2 H Basophils # 0.0 Nucleated Red Blood 0.0 Cells # Bedside Glucose 136 137 Home Meds Reported Medications Acetylcysteine* (Mucomyst*) 4 Ml Soln, 3 ML NEB BID, EA 06/30/18 Na Phos,M-B/Na Phos,Di-Ba (Fleet Enema Extra) 230 Ml Enema, 230 ML RC NEEDED, ENEMA 06/30/18 Bisacodyl* (Bisacodyl*) 10 Mg Supp, 10 MG NM Q24H PRN for NEEDED, SUPP 06/30/18 Magnesium Hydroxide* (Milk Of Magnesia*) 400 Mg/5 Ml Oral.susp, 30 ML GTB Q24H for CONSTIPATION, ML 06/30/18 Sennosides* (Senna Lax*) 8.6 Mg Tablet, 2 TAB GTB BID, TAB 06/30/18 Insulin Aspart* (Novolog Insulin Pen*) 100 Unit/Ml Soln, 0 SC .SLIDING SCALE AC, EA IF BS 0-120=0 UNITS,120-150=0 UNIT, 151-200=1 UNIT, 201-250=2 UNIT, 251-300=3 UNIT, 301-350=4 UNIT, 351-400=5 UNIT, ABOVE 400=6 UNIT AND CALL MD. 06/30/18 Glucagon HCl (Glucagon HCl) 1 Mg Vial, 1 MG IJ NEEDED, VIAL IF BS BELOW 60 06/30/18 Insulin NPH Human Isophane (Humulin N) 100 Unit/1 Ml Vial, 28 UNIT SQ Q8H, VIAL 06/30/18 Hydrocodone/Acetaminophen ([place] 5-325 Tablet) 1 Each Tablet, 1 EACH GTB Q6H, TAB NEEDED FOR PAIN 06/30/18 Acetaminophen* (Tylenol*) 500 Mg Tab, 1000 MG GTB Q4H PRN for PAIN 4-6/10, TAB 06/30/18 Acetaminophen* (Tylenol*) 325 Mg Tablet, 650 MG GTB PRN PRN for TRACH TUBE CHANGE, TAB 06/30/18 Acetaminophen* (Tylenol*) 325 Mg Tablet, 650 MG GTB Q4H PRN for MILD PAIN LEVEL 1-3, TAB AND FEVER 100 AND ABOVE 06/30/18 Amino Acids/Protein Hydrolys (PRO-STAT LIQUID) 30 Ml Liquid.pkt, 30 ML GTB DAILY SUGAR FREE 06/30/18 Cran/Vitc/Mannose/Inulin/Brom (Uti-Stat Liquid) 3,875 Mg/30 Ml Liquid, 30 ML GTB DAILY 06/30/18 Hydralazine Hcl* (Hydralazine Hcl*) 25 Mg Tab, 25 MG GTB Q6H, #60 TAB 06/30/18 Furosemide* (Lasix* Liq) 40 Mg/5 Ml Cup, 20 MG GTB DAILY, EA 06/30/18 Carvedilol* (Carvedilol*) 3.125 Mg Tablet, 3.125 MG GTB BID, #60 TAB 06/30/18 Atorvastatin* (Atorvastatin*) 80 Mg Tablet, 80 MG GTB QHS, #30 TAB 06/30/18 Aspirin* (Aspirin* EC) 81 Mg Tablet.dr, 162 MG GTB DAILY, TAB 06/30/18 Valproic Acid* (Valproic Acid* Liq) 250 Mg/5 Ml Syrup, 10 ML GTB Q8H, ML 06/30/18 Sucralfate* (Carafate*) 1 Gm/10 Ml Susp, 1 GM GTB QID, EA 06/30/18 Lisinopril* (Lisinopril*) 5 Mg Tablet, 5 MG GTB DAILY, #30 TAB 06/30/18 Lansoprazole* (Lansoprazole*) 30 Mg Capsule.dr, 30 MG GTB BID, CAP 06/30/18 Lactobacillus Acidophilus (Acidophilus Lactobacillus) 1 Each Capsule, 1 EACH GTB BID, CAP 06/30/18 Medications Current Medications Ondansetron HCl (Zofran Inj) 4 mg Q6H PRN IV NAUSEA AND/OR VOMITING; Start 11/11/18 at 23:00 Acetaminophen (Tylenol Liquid) 650 mg Q6H PRN PO FEVER Last administered on 11/20/18at 03:38; Admin Dose 650 MG; Start 11/11/18 at 23:00 Morphine Sulfate (morphine) 2 mg Q4H PRN IV PAIN LEVEL 7-10 Last administered on 11/12/18at 05:26; Admin Dose 2 MG; Start 11/11/18 at 23:00 Insulin Aspart (Novolog Insulin Pen) NOVOLOG *MODERATE* ALGORI... Q4 SC Last administered on 11/19/18at 21:35; Admin Dose 2 UNIT; Start 11/12/18 at 05:00 Miscellaneous Information 1 ea NOTE XX ; Start 11/12/18 at 03:00 Glucose (Glutose) 15 gm Q15M PRN PO DECREASED GLUCOSE; Start 11/12/18 at 03:00 Glucose (Glutose) 22.5 gm Q15M PRN PO DECREASED GLUCOSE; Start 11/12/18 at 03:00 Dextrose (D50w Syringe) 25 ml Q15M PRN IV DECREASED GLUCOSE; Start 11/12/18 at 03:00 Dextrose (D50w Syringe) 50 ml Q15M PRN IV DECREASED GLUCOSE; Start 11/12/18 at 03:00 Glucagon (Glucagen) 1 mg Q15M PRN IM DECREASED GLUCOSE; Start 11/12/18 at 03:00 Glucose (Glutose) 15 gm Q15M PRN BUCCAL DECREASED GLUCOSE; Start 11/12/18 at 03:00 Acetaminophen (Tylenol Tab) 650 mg Q4H PRN GTB MILD PAIN LEVEL 1-3 Last administered on 11/17/18at 05:29; Admin Dose 650 MG; Start 11/12/18 at 09:30 Acetylcysteine (Mucomyst) 3 ml BID RESP THERAPY NEB Last administered on 11/20/18at 08:20; Admin Dose 3 ML; Start 11/12/18 at 10:00 Atorvastatin Calcium (Lipitor) 80 mg QHS GTB Last administered on 11/19/18at 21:06; Admin Dose 80 MG; Start 11/12/18 at 21:00 Bisacodyl (Dulcolax Supp) 10 mg Q24H PRN [place] CONSTIPATION; Start 11/12/18 at 09:30 Furosemide (Lasix) 20 mg DAILY GTB Last administered on 11/20/18at 09:25; Admin Dose 20 MG; Start 11/12/18 at 09:30 Hydralazine HCl (Apresoline) 25 mg Q6 GTB Last administered on 11/20/18at 13:02; Admin Dose 25 MG; Start 11/12/18 at 12:00 Lansoprazole (Prevacid) 30 mg BID@0600,1800 GTB Last administered on 11/20/18 05:23; Admin Dose 30 MG; Start 11/12/18 at 18:00 Magnesium Hydroxide (Milk Of Mag) 30 ml Q24H GTB Last administered on 11/20/18at 09:26; Admin Dose 30 ML; Start 11/12/18 at 09:30 Senna (Senokot) 2 tab BID GTB Last administered on 11/20/18 09:26; Admin Dose 2 TAB; Start 11/12/18 at 09:30 Sucralfate (Carafate Susp) 1 gm QID GTB Last administered on 11/20/18 13:02; Admin Dose 1 GM; Start 11/12/18 at 13:00 Valproate Sodium (Depakene Liquid Cup) 500 mg Q8 GTB Last administered on 11/20/18 13:02; Admin Dose 500 MG; Start 11/12/18 at 10:00 Insulin Human NPH (Humulin N) 28 unit Q8 SC Last administered on 11/20/18 13:11; Admin Dose 28 UNIT; Start 11/12/18 at 10:00 Sodium Biphosphate/ Sodium Phosphate (Fleet Enema) 133 ml DAILY PRN NM CONSTIPATION; Start 11/12/18 at 10:00 Lisinopril (Zestril) 10 mg DAILY GTB Last administered on 11/20/18:; Admin Dose 10 MG; Start 11/14/18 at 09:00 Albuterol/ Ipratropium (Duoneb) 3 ml Q6H RESP THERAPY PRN HHN SHORTNESS OF BREATH Last administered on 11/20/18 08:20; Admin Dose 3 ML; Start 11/13/18 at 21:00 Vancomycin HCl (Vanco Iv Per Pharmacy) VANCOMYCIN PER PHARMA... PER PROTOCOL XX ; Start 11/17/18 at 13:00 Vancomycin HCl 1.25 gm/Sodium Chloride 250 ml @ 83.333 mls/ hr Q12H IVPB Last administered on 11/20/18 15:23; Admin Dose 83.333 MLS/HR; Start 11/18/18 at 03:00 Cefepime HCl 50 ml @ 100 mls/hr Q12 IVPB Last administered on 11/20/18 09:26; Admin Dose 100 MLS/HR; Start 11/18/18 at 21:00 Carvedilol (Coreg) 12.5 mg BID GTB Last administered on 11/20/18 09:26; Admin Dose 12.5 MG; Start 11/19/18 at 21:00 Assessment/Plan Assessment/Plan (Daily) IMP: 1. Chronic respiratory failure with tracheostomy and T-tube 2. Acute on chronic cerebral hemorrhages. 3. Encephalopathy secondary to above 4. History of seizure disorder, MRI pending. 5. Healthcare associated pneumonia RECS: 1. Continue cool aerosol 2. Antibiotics for UTI and pneumonia 3. Tube feeding as tolerated VICTOR M MCKEON MD Nov 20, 2018 16:17
[2018-11-20] MEDS: ATORVASTATIN 80 MG TAB GTB SCH (21:11)
--- NOTE | 2018-11-20 22:45 | CONS ---
Assessment/Plan Assessment/Plan Hospital Course (Demo Recall) - intermittent fever, probably due to bacteremia, HCAP and intra-parenchymal hemorrhage - bacteremia due to MRSA on 11/15/2018 - possible HCAP, however, given the polymicrobial growth of his resp culture, all bacteria may be colonizers of the airway: providencia, proteus, pseudomonas, group B strep, klebsiella - Hx of CVA. 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 ojfovbw-dlporhdd-hpvxkryq lobes; stable large subacute R frontal temporal parietal intraparenchymal hemorrhage, plus encephalomalacia/gliosis; stable moderate to severe ventriculomegaly; moderate b/l occipital horn acute intraventricular hemorrhage; chronic R paracentral pontine infarction; small chronic R cerebellar infarctions; L temporal lobe with associated encephalomalacia/gliosis within this region as well as laminar necrosis; moderate chronic microvascular ischemic changes; basilar dolichoectasia; extensive bilateral mastoid air cell effusions - aerococci in in urine culture on 11/14/2018, probable colonization - chronic hypoxic resp failure - h/o tracheostomy placement - unresponsive state due to extensive CVA - diarrhea recommendations - pending results: repeat cultures of blood from 11/17/2018, repeat urine culture from 11/17/2018, and resp culture (pseudomonas and gram negative) - continue IV vancomycin (re-start 11/17/2018) for bacteremia due to MRSA - continue IV cefepime (11/18/2018-) for possible HCAP. Pt completed pip/tazo (11/15/2018-11/17/2018) Management discussed with Pt's RN Janette, and one of the sons Consultation Date/Type/Reason Admit Date/Time November 11, 2018 at 22:51 Initial Consult Date 11/15/18 Type of Consult ID Requesting Provider: NIA DOMINGO MD Date/Time of Note DATE: 11/20/18 TIME: 22:42 24 HR Interval Summary Subjective hx not possible: pt non-verbal Exam/Review of Systems Exam Vitals Vital Signs Date Temp Pulse Resp B/P (MAP) Pulse Ox O2 O2 Flow FiO2 Time Delivery Rate 11/20/18 98 5.0 28 20:28 11/20/18 82 20 Aerosol 20:28 T Tube 11/20/18 99.6 156/81 20:03 (106) Intake and Output 11/19/18 11/19/18 11/20/18 1515:00 23:00 07:00 IntakeIntake Total 835 ml 1220 ml OutputOutput Total 2200 ml 1800 ml BalanceBalance -1365 ml -580 ml Constitutional: non-verbal, frail Psych: confusion Head: other (s/p craniectomy) Eyes: nl conjunctiva, nl lids ENMT: nl external ears & nose, nl nasal mucosa & septum, mucosa pink and moist Neck: other (tracg) Respiratory: diminished breath sounds Cardiovascular: regular rate and rhythm, nl pulses Gastrointestinal: soft, non-tender, other (rectal tube, PEG) Genitourinary - Male: other (FC) Musculoskeletal: No swelling Extremities: edema Neurological: unresponsive, other (occasional twitching of the arms) Skin: No rash or lesions Results Result Diagram: 11/20/18 0626 11/19/18 0427 Results 24hrs Laboratory Tests Test 11/20/18 00:39 11/20/18 05:21 11/20/18 06:26 11/20/18 08:33 Bedside Glucose 116 107 136 White Blood Count 11.4 H Red Blood Count 3.85 L Hemoglobin 10.9 L Hematocrit 33.6 L Mean Corpuscular Volume 87.3 Mean Corpuscular 28.3 L Hemoglobin Mean Corpuscular 32.4 Hemoglobin Concent Red Cell Distribution 15.5 H Width Platelet Count 162 Mean Platelet Volume 12.8 H Immature Granulocytes % 0.500 H Neutrophils % 69.4 Lymphocytes % 10.3 L Monocytes % 9.1 Eosinophils % 10.3 H Basophils % 0.4 Nucleated Red Blood 0.0 Cells % Immature Granulocytes # 0.060 H Neutrophils # 7.9 H Lymphocytes # 1.2 Monocytes # 1.0 H Eosinophils # 1.2 H Basophils # 0.0 Nucleated Red Blood 0.0 Cells # Test 11/20/18 13:03 11/20/18 18:03 11/20/18 20:57 Bedside Glucose 137 148 176 Medications Medication Current Medications Ondansetron HCl (Zofran Inj) 4 mg Q6H PRN IV NAUSEA AND/OR VOMITING; Start 11/11/18 at 23:00 Acetaminophen (Tylenol Liquid) 650 mg Q6H PRN PO FEVER Last administered on 11/20/18at 03:38; Admin Dose 650 MG; Start 11/11/18 at 23:00 Morphine Sulfate (morphine) 2 mg Q4H PRN IV PAIN LEVEL 7-10 Last administered on 11/12/18at 05:26; Admin Dose 2 MG; Start 11/11/18 at 23:00 Insulin Aspart (Novolog Insulin Pen) NOVOLOG *MODERATE* ALGORI... Q4 SC Last administered on 11/20/18at 21:39; Admin Dose 2 UNIT; Start 11/12/18 at 05:00 Miscellaneous Information 1 ea NOTE XX ; Start 11/12/18 at 03:00 Glucose (Glutose) 15 gm Q15M PRN PO DECREASED GLUCOSE; Start 11/12/18 at 03:00 Glucose (Glutose) 22.5 gm Q15M PRN PO DECREASED GLUCOSE; Start 11/12/18 at 03:00 Dextrose (D50w Syringe) 25 ml Q15M PRN IV DECREASED GLUCOSE; Start 11/12/18 at 03:00 Dextrose (D50w Syringe) 50 ml Q15M PRN IV DECREASED GLUCOSE; Start 11/12/18 at 03:00 Glucagon (Glucagen) 1 mg Q15M PRN IM DECREASED GLUCOSE; Start 11/12/18 at 03:00 Glucose (Glutose) 15 gm Q15M PRN BUCCAL DECREASED GLUCOSE; Start 11/12/18 at 03:00 Acetaminophen (Tylenol Tab) 650 mg Q4H PRN GTB MILD PAIN LEVEL 1-3 Last administered on 11/17/18at 05:29; Admin Dose 650 MG; Start 11/12/18 at 09:30 Acetylcysteine (Mucomyst) 3 ml BID RESP THERAPY NEB Last administered on 11/20/18at 20:28; Admin Dose 3 ML; Start 11/12/18 at 10:00 Atorvastatin Calcium (Lipitor) 80 mg QHS GTB Last administered on 11/20/18at 21:11; Admin Dose 80 MG; Start 11/12/18 at 21:00 Bisacodyl (Dulcolax Supp) 10 mg Q24H PRN AR CONSTIPATION; Start 11/12/18 at 09:30 Furosemide (Lasix) 20 mg DAILY GTB Last administered on 11/20/18at 09:25; Admin Dose 20 MG; Start 11/12/18 at 09:30 Hydralazine HCl (Apresoline) 25 mg Q6 GTB Last administered on 11/20/18 18:02; Admin Dose 25 MG; Start 11/12/18 at 12:00 Lansoprazole (Prevacid) 30 mg BID@0600,1800 GTB Last administered on 11/20/18 18:01; Admin Dose 30 MG; Start 11/12/18 at 18:00 Magnesium Hydroxide (Milk Of Mag) 30 ml Q24H GTB Last administered on 11/20/18 09:26; Admin Dose 30 ML; Start 11/12/18 at 09:30 Senna (Senokot) 2 tab BID GTB Last administered on 11/20/18 21:11; Admin Dose 2 TAB; Start 11/12/18 at 09:30 Sucralfate (Carafate Susp) 1 gm QID GTB Last administered on 11/20/18 21:10; Admin Dose 1 GM; Start 11/12/18 at 13:00 Valproate Sodium (Depakene Liquid Cup) 500 mg Q8 GTB Last administered on 11/20/18 21:11; Admin Dose 500 MG; Start 11/12/18 at 10:00 Insulin Human NPH (Humulin N) 28 unit Q8 SC Last administered on 11/20/18 13:11; Admin Dose 28 UNIT; Start 11/12/18 at 10:00 Sodium Biphosphate/ Sodium Phosphate (Fleet Enema) 133 ml DAILY PRN AR CONSTIPATION; Start 11/12/18 at 10:00 Lisinopril (Zestril) 10 mg DAILY GTB Last administered on 11/20/18 09:26; Admin Dose 10 MG; Start 11/14/18 at 09:00 Albuterol/ Ipratropium (Duoneb) 3 ml Q6H RESP THERAPY PRN HHN SHORTNESS OF BREATH Last administered on 11/20/18 20:28; Admin Dose 3 ML; Start 11/13/18 at 21:00 Vancomycin HCl (Vanco Iv Per Pharmacy) VANCOMYCIN PER PHARMA... PER PROTOCOL XX ; Start 11/17/18 at 13:00 Vancomycin HCl 1.25 gm/Sodium Chloride 250 ml @ 83.333 mls/ hr Q12H IVPB Last administered on 11/20/18 15:23; Admin Dose 83.333 MLS/HR; Start 11/18/18 at 03:00 Cefepime HCl 50 ml @ 100 mls/hr Q12 IVPB Last administered on 11/20/18at 21:10; Admin Dose 100 MLS/HR; Start 11/18/18 at 21:00 Carvedilol (Coreg) 12.5 mg BID GTB Last administered on 11/20/18at 21:12; Admin Dose 12.5 MG; Start 11/19/18 at 21:00 ARPIL JORDAN M.D. Nov 20, 2018 22:45
[2018-11-21] VITALS (11 sets, daily range): BP systolic 116–163; BP diastolic 62–82; PULSE 75–86; RESP 19–20
[2018-11-21] MEDS: NPH, HUMAN INSULIN ISOPHANE 3ML VIAL SC SCH ×3 (00:40→13:11)
[2018-11-21] MEDS: INSULIN ASPART [NOVOLOG] 3 ML PEN SC SCH ×5 (00:41→17:33)
[2018-11-21] MEDS: VANCOMYCIN HCL 1.25 GM in SOD CHLORIDE 0.9% 250 ML IVPB SCH ×2 (02:26→14:42)
[2018-11-21] MEDS: LANSOPRAZOLE 30 MG CAP GTB SCH ×2 (06:17→17:31)
[2018-11-21] MEDS: VALPROIC ACID LIQUID CUP 250 MG/5 ML CUP GTB SCH ×3 (06:17→21:46)
[2018-11-21] MEDS: ALBUTEROL/IPRATROPIUM (NEB) 3 ML AMP HHN PRN ×2 (07:41→19:57)
[2018-11-21] MEDS: ACETYLCYSTEINE 20% 4 ML VIAL NEB SCH ×2 (07:51→19:56)
[2018-11-21] MEDS: CEFEPIME 1GM/50 ML (PMX) 50 ML IVPB SCH ×2 (08:54→21:01)
[2018-11-21] MEDS: SENNA TAB GTB SCH ×2 (08:54→21:02)
[2018-11-21] MEDS: SUCRALFATE (100 MG/ML) 10ML CUP GTB SCH ×4 (08:54→21:02)
[2018-11-21] MEDS: MAGNESIUM HYDROXIDE 30ML CUP GTB SCH (08:54)
[2018-11-21] MEDS: LISINOPRIL 5 MG TAB GTB SCH (08:55)
[2018-11-21] MEDS: FUROSEMIDE 20 MG TAB GTB SCH (08:55)
--- NOTE | 2018-11-21 10:44 | PN ---
Date/Time of Note Date/Time of Note DATE: 11/21/18 TIME: 10:43 Assessment/Plan VTE Prophylaxis Risk score (from Ns)>0 risk: 3 SCD applied (from Ns): Yes Pharmacological prophylaxis: LMWH Lines/Catheters IV [facility]from [facility] Urinary Cath still in place: Yes Reason Cath still needed: skin wounds contaminated by urine Assessment/Plan Hospital Course Intracranial hemorrhage, Dr. Espana is following in neurosurgery consultation. Family does not want any aggressive treatment. -Sepsis with fever and leukocytosis most likely secondary to HCAP. Continue antibiotics per ID. Dr. Kiran is following in infection disease consultation. -Recent history of right hemicraniectomy, details are not available. Records requested. -Chronic respiratory failure with tracheostomy, patient is currently on T-tube. -Healthcare associated pneumonia, continue antibiotics. -Coronary artery disease, status post PTCA with stent placement -Ischemic cardiomyopathy -Diabetes -Dysphagia with G-tube -Dyslipidemia -Obesity with BMI of 35.3 Result Diagram: 11/21/18 0545 11/19/18 0427 Results 24hrs Laboratory Tests Test 11/20/18 13:03 11/20/18 18:03 11/20/18 20:57 11/21/18 00:17 Bedside Glucose 137 148 176 182 Test 11/21/18 05:45 11/21/18 06:15 11/21/18 08:20 White Blood Count 9.5 Red Blood Count 3.89 L Hemoglobin 10.8 L Hematocrit 33.1 L Mean Corpuscular Volume 85.1 Mean Corpuscular 27.8 L Hemoglobin Mean Corpuscular 32.6 Hemoglobin Concent Red Cell Distribution 15.3 H Width Platelet Count 211 # Mean Platelet Volume 12.2 H Immature Granulocytes % 0.400 Neutrophils % 63.0 Lymphocytes % 13.3 L Monocytes % 8.8 Eosinophils % 14.1 H Basophils % 0.4 Nucleated Red Blood 0.0 Cells % Immature Granulocytes # 0.040 H Neutrophils # 6.0 Lymphocytes # 1.3 Monocytes # 0.8 Eosinophils # 1.3 H Basophils # 0.0 Nucleated Red Blood 0.0 Cells # Bedside Glucose 161 142 Subjective 24 Hr Interval Summary Free Text/Dictation Patient resting, on oxygen via trach Exam/Review of Systems Exam Vitals Vital Signs Date Temp Pulse Resp B/P (MAP) Pulse Ox O2 O2 Flow FiO2 Time Delivery Rate 11/21/18 78 08:01 11/21/18 98.8 19 135/68 99 Trach 07:15 (90) Collar 11/21/18 5.0 28 04:57 Intake and Output 11/20/18 11/20/18 11/21/18 1515:00 23:00 07:00 IntakeIntake Total 250 ml 1140 ml OutputOutput Total 1000 ml 900 ml BalanceBalance 250 ml 140 ml -900 ml Constitutional: well developed Head: normocephalic, atraumatic Neck: supple Respiratory: diminished breath sounds Cardiovascular: regular rate and rhythm Gastrointestinal: soft, non-tender Extremities: normal pulses Results Results 24hrs Laboratory Tests Test 11/20/18 13:03 11/20/18 18:03 11/20/18 20:57 11/21/18 00:17 Bedside Glucose 137 148 176 182 Test 11/21/18 05:45 11/21/18 06:15 11/21/18 08:20 White Blood Count 9.5 Red Blood Count 3.89 L Hemoglobin 10.8 L Hematocrit 33.1 L Mean Corpuscular Volume 85.1 Mean Corpuscular 27.8 L Hemoglobin Mean Corpuscular 32.6 Hemoglobin Concent Red Cell Distribution 15.3 H Width Platelet Count 211 # Mean Platelet Volume 12.2 H Immature Granulocytes % 0.400 Neutrophils % 63.0 Lymphocytes % 13.3 L Monocytes % 8.8 Eosinophils % 14.1 H Basophils % 0.4 Nucleated Red Blood 0.0 Cells % Immature Granulocytes # 0.040 H Neutrophils # 6.0 Lymphocytes # 1.3 Monocytes # 0.8 Eosinophils # 1.3 H Basophils # 0.0 Nucleated Red Blood 0.0 Cells # Bedside Glucose 161 142 Medications Medication Current Medications Ondansetron HCl (Zofran Inj) 4 mg Q6H PRN IV NAUSEA AND/OR VOMITING; Start 11/11/18 at 23:00 Acetaminophen (Tylenol Liquid) 650 mg Q6H PRN PO FEVER Last administered on 11/20/18at 03:38; Admin Dose 650 MG; Start 11/11/18 at 23:00 Morphine Sulfate (morphine) 2 mg Q4H PRN IV PAIN LEVEL 7-10 Last administered on 11/12/18at 05:26; Admin Dose 2 MG; Start 11/11/18 at 23:00 Insulin Aspart (Novolog Insulin Pen) NOVOLOG *MODERATE* ALGORI... Q4 SC Last administered on 11/21/18at 08:59; Admin Dose 2 UNIT; Start 11/12/18 at 05:00 Miscellaneous Information 1 ea NOTE XX ; Start 11/12/18 at 03:00 Glucose (Glutose) 15 gm Q15M PRN PO DECREASED GLUCOSE; Start 11/12/18 at 03:00 Glucose (Glutose) 22.5 gm Q15M PRN PO DECREASED GLUCOSE; Start 11/12/18 at 03:00 Dextrose (D50w Syringe) 25 ml Q15M PRN IV DECREASED GLUCOSE; Start 11/12/18 at 03:00 Dextrose (D50w Syringe) 50 ml Q15M PRN IV DECREASED GLUCOSE; Start 11/12/18 at 03:00 Glucagon (Glucagen) 1 mg Q15M PRN IM DECREASED GLUCOSE; Start 11/12/18 at 03:00 Glucose (Glutose) 15 gm Q15M PRN BUCCAL DECREASED GLUCOSE; Start 11/12/18 at 03:00 Acetaminophen (Tylenol Tab) 650 mg Q4H PRN GTB MILD PAIN LEVEL 1-3 Last administered on 11/17/18at 05:29; Admin Dose 650 MG; Start 11/12/18 at 09:30 Acetylcysteine (Mucomyst) 3 ml BID RESP THERAPY NEB Last administered on 11/21/18at 07:51; Admin Dose 3 ML; Start 11/12/18 at 10:00 Atorvastatin Calcium (Lipitor) 80 mg QHS GTB Last administered on 11/20/18at 21:11; Admin Dose 80 MG; Start 11/12/18 at 21:00 Bisacodyl (Dulcolax Supp) 10 mg Q24H PRN ME CONSTIPATION; Start 11/12/18 at 09:30 Furosemide (Lasix) 20 mg DAILY GTB Last administered on 11/21/18at 08:55; Admin D ose 20 MG; Start 11/12/18 at 09:30 Hydralazine HCl (Apresoline) 25 mg Q6 GTB Last administered on 11/21/18 06:19; Admin Dose 25 MG; Start 11/12/18 at 12:00 Lansoprazole (Prevacid) 30 mg BID@0600,1800 GTB Last administered on 11/21/18at 06:17; Admin Dose 30 MG; Start 11/12/18 at 18:00 Magnesium Hydroxide (Milk Of Mag) 30 ml Q24H GTB Last administered on 11/21/18 08:54; Admin Dose 30 ML; Start 11/12/18 at 09:30 Senna (Senokot) 2 tab BID GTB Last administered on 11/21/18 08:54; Admin Dose 2 TAB; Start 11/12/18 at 09:30 Sucralfate (Carafate Susp) 1 gm QID GTB Last administered on 11/21/18 08:54; Admin Dose 1 GM; Start 11/12/18 at 13:00 Valproate Sodium (Depakene Liquid Cup) 500 mg Q8 GTB Last administered on 11/21/18 06:17; Admin Dose 500 MG; Start 11/12/18 at 10:00 Insulin Human NPH (Humulin N) 28 unit Q8 SC Last administered on 11/21/18 06:54; Admin Dose 28 UNIT; Start 11/12/18 at 10:00 Sodium Biphosphate/ Sodium Phosphate (Fleet Enema) 133 ml DAILY PRN ME CONSTIPATION; Start 11/12/18 at 10:00 Lisinopril (Zestril) 10 mg DAILY GTB Last administered on 11/21/18 08:55; Admin Dose 10 MG; Start 11/14/18 at 09:00 Albuterol/ Ipratropium (Duoneb) 3 ml Q6H RESP THERAPY PRN HHN SHORTNESS OF BREATH Last administered on 11/21/18 07:41; Admin Dose 3 ML; Start 11/13/18 at 21:00 Vancomycin HCl (Vanco Iv Per Pharmacy) VANCOMYCIN PER PHARMA... PER PROTOCOL XX ; Start 11/17/18 at 13:00 Vancomycin HCl 1.25 gm/Sodium Chloride 250 ml @ 83.333 mls/ hr Q12H IVPB Last administered on 11/21/18 02:26; Admin Dose 83.333 MLS/HR; Start 11/18/18 at 03:00 Cefepime HCl 50 ml @ 100 mls/hr Q12 IVPB Last administered on 11/21/18 08:54; Admin Dose 100 MLS/HR; Start 11/18/18 at 21:00 Carvedilol (Coreg) 12.5 mg BID GTB Last administered on 11/21/18at 08:54; Admin Dose 12.5 MG; Start 11/19/18 at 21:00 PARAS MURILLO Nov 21, 2018 10:44
--- NOTE | 2018-11-21 14:24 | CONS ---
Consult Date/Type/Reason Admit Date/Time November 11, 2018 at 22:51 Initial Consult Date 11/15/18 Type of Consultation: Pulm Requesting Provider: NIA DOMINGO MD Date/Time of Note DATE: 11/21/18 TIME: 14:23 Subjective NO acute events - BP in good range - no focal ectopy on tele - con't Med RX. ROS: No fever, no chills, no nausea, no vomiting, no diarrhea/constipation - per nurse, chronic SOB Objective Vitals Vital Signs Date Temp Pulse Resp B/P (MAP) Pulse Ox O2 O2 Flow FiO2 Time Delivery Rate 11/21/18 72 20 98 Aerosol 5.0 28 12:46 T Tube 11/21/18 99.1 116/67 12:01 (83) Intake and Output 11/20/18 11/20/18 11/21/18 1515:00 23:00 07:00 IntakeIntake Total 250 ml 1140 ml OutputOutput Total 1000 ml 900 ml BalanceBalance 250 ml 140 ml -900 ml Exam General: WN/WD/NAD, AOx 0 HEENT: Unicetric/atraumatic/EOMI (does not follow commands) NECK: trach Lymph: no lymphadenopathy HEART: regular with no S3, II/ systolic murmur at apex LUNGS: Coarse sounds ABD: soft, NT, ND, +BS : Intact Neuro: non focal SKIN: chronic changes EXT: trace edema Results/Medications Result Diagram: 11/21/18 0545 11/19/18 0427 Results 24 hrs Laboratory Tests Test 11/20/18 18:03 11/20/18 20:57 11/21/18 00:17 11/21/18 05:45 Bedside Glucose 148 176 182 White Blood Count 9.5 Red Blood Count 3.89 L Hemoglobin 10.8 L Hematocrit 33.1 L Mean Corpuscular Volume 85.1 Mean Corpuscular 27.8 L Hemoglobin Mean Corpuscular 32.6 Hemoglobin Concent Red Cell Distribution 15.3 H Width Platelet Count 211 # Mean Platelet Volume 12.2 H Immature Granulocytes % 0.400 Neutrophils % 63.0 Lymphocytes % 13.3 L Monocytes % 8.8 Eosinophils % 14.1 H Basophils % 0.4 Nucleated Red Blood 0.0 Cells % Immature Granulocytes # 0.040 H Neutrophils # 6.0 Lymphocytes # 1.3 Monocytes # 0.8 Eosinophils # 1.3 H Basophils # 0.0 Nucleated Red Blood 0.0 Cells # Test 11/21/18 06:15 11/21/18 08:20 11/21/18 12:51 Bedside Glucose 161 142 191 Home Meds Reported Medications Acetylcysteine* (Mucomyst*) 4 Ml Soln, 3 ML NEB BID, EA 06/30/18 Na Phos,M-B/Na Phos,Di-Ba (Fleet Enema Extra) 230 Ml Enema, 230 ML RC NEEDED, ENEMA 06/30/18 Bisacodyl* (Bisacodyl*) 10 Mg Supp, 10 MG MD Q24H PRN for NEEDED, SUPP 06/30/18 Magnesium Hydroxide* (Milk Of Magnesia*) 400 Mg/5 Ml Oral.susp, 30 ML GTB Q24H for CONSTIPATION, ML 06/30/18 Sennosides* (Senna Lax*) 8.6 Mg Tablet, 2 TAB GTB BID, TAB 06/30/18 Insulin Aspart* (Novolog Insulin Pen*) 100 Unit/Ml Soln, 0 SC .SLIDING SCALE AC, EA IF BS 0-120=0 UNITS,120-150=0 UNIT, 151-200=1 UNIT, 201-250=2 UNIT, 251-300=3 UNIT, 301-350=4 UNIT, 351-400=5 UNIT, ABOVE 400=6 UNIT AND CALL MD. 06/30/18 Glucagon HCl (Glucagon HCl) 1 Mg Vial, 1 MG IJ NEEDED, VIAL IF BS BELOW 60 06/30/18 Insulin NPH Human Isophane (Humulin N) 100 Unit/1 Ml Vial, 28 UNIT SQ Q8H, VIAL 06/30/18 Hydrocodone/Acetaminophen ([place] 5-325 Tablet) 1 Each Tablet, 1 EACH GTB Q6H, TAB NEEDED FOR PAIN 06/30/18 Acetaminophen* (Tylenol*) 500 Mg Tab, 1000 MG GTB Q4H PRN for PAIN 4-6/10, TAB 06/30/18 Acetaminophen* (Tylenol*) 325 Mg Tablet, 650 MG GTB PRN PRN for TRACH TUBE CHANGE, TAB 06/30/18 Acetaminophen* (Tylenol*) 325 Mg Tablet, 650 MG GTB Q4H PRN for MILD PAIN LEVEL 1-3, TAB AND FEVER 100 AND ABOVE 06/30/18 Amino Acids/Protein Hydrolys (PRO-STAT LIQUID) 30 Ml Liquid.pkt, 30 ML GTB DAILY SUGAR FREE 06/30/18 Cran/Vitc/Mannose/Inulin/Brom (Uti-Stat Liquid) 3,875 Mg/30 Ml Liquid, 30 ML GTB DAILY 06/30/18 Hydralazine Hcl* (Hydralazine Hcl*) 25 Mg Tab, 25 MG GTB Q6H, #60 TAB 06/30/18 Furosemide* (Lasix* Liq) 40 Mg/5 Ml Cup, 20 MG GTB DAILY, EA 06/30/18 Carvedilol* (Carvedilol*) 3.125 Mg Tablet, 3.125 MG GTB BID, #60 TAB 06/30/18 Atorvastatin* (Atorvastatin*) 80 Mg Tablet, 80 MG GTB QHS, #30 TAB 06/30/18 Aspirin* (Aspirin* EC) 81 Mg Tablet.dr, 162 MG GTB DAILY, TAB 06/30/18 Valproic Acid* (Valproic Acid* Liq) 250 Mg/5 Ml Syrup, 10 ML GTB Q8H, ML 06/30/18 Sucralfate* (Carafate*) 1 Gm/10 Ml Susp, 1 GM GTB QID, EA 06/30/18 Lisinopril* (Lisinopril*) 5 Mg Tablet, 5 MG GTB DAILY, #30 TAB 06/30/18 Lansoprazole* (Lansoprazole*) 30 Mg Capsule.dr, 30 MG GTB BID, CAP 06/30/18 Lactobacillus Acidophilus (Acidophilus Lactobacillus) 1 Each Capsule, 1 EACH GTB BID, CAP 06/30/18 Medications Current Medications Ondansetron HCl (Zofran Inj) 4 mg Q6H PRN IV NAUSEA AND/OR VOMITING; Start 11/11/18 at 23:00 Acetaminophen (Tylenol Liquid) 650 mg Q6H PRN PO FEVER Last administered on 11/20/18at 03:38; Admin Dose 650 MG; Start 11/11/18 at 23:00 Morphine Sulfate (morphine) 2 mg Q4H PRN IV PAIN LEVEL 7-10 Last administered on 11/12/18at 05:26; Admin Dose 2 MG; Start 11/11/18 at 23:00 Insulin Aspart (Novolog Insulin Pen) NOVOLOG *MODERATE* ALGORI... Q4 SC Last administered on 11/21/18at 12:55; Admin Dose 4 UNIT; Start 11/12/18 at 05:00 Miscellaneous Information 1 ea NOTE XX ; Start 11/12/18 at 03:00 Glucose (Glutose) 15 gm Q15M PRN PO DECREASED GLUCOSE; Start 11/12/18 at 03:00 Glucose (Glutose) 22.5 gm Q15M PRN PO DECREASED GLUCOSE; Start 11/12/18 at 03:00 Dextrose (D50w Syringe) 25 ml Q15M PRN IV DECREASED GLUCOSE; Start 11/12/18 at 03:00 Dextrose (D50w Syringe) 50 ml Q15M PRN IV DECREASED GLUCOSE; Start 11/12/18 at 03:00 Glucagon (Glucagen) 1 mg Q15M PRN IM DECREASED GLUCOSE; Start 11/12/18 at 03:00 Glucose (Glutose) 15 gm Q15M PRN BUCCAL DECREASED GLUCOSE; Start 11/12/18 at 03:00 Acetaminophen (Tylenol Tab) 650 mg Q4H PRN GTB MILD PAIN LEVEL 1-3 Last administered on 11/17/18at 05:29; Admin Dose 650 MG; Start 11/12/18 at 09:30 Acetylcysteine (Mucomyst) 3 ml BID RESP THERAPY NEB Last administered on 11/21/18at 07:51; Admin Dose 3 ML; Start 11/12/18 at 10:00 Atorvastatin Calcium (Lipitor) 80 mg QHS GTB Last administered on 11/20/18at 21:11; Admin Dose 80 MG; Start 11/12/18 at 21:00 Bisacodyl (Dulcolax Supp) 10 mg Q24H PRN MD CONSTIPATION; Start 11/12/18 at 09:30 Furosemide (Lasix) 20 mg DAILY GTB Last administered on 11/21/18at 08:55; Admin Dose 20 MG; Start 11/12/18 at 09:30 Hydralazine HCl (Apresoline) 25 mg Q6 GTB Last administered on 11/21/18at 12:50; Admin Dose 25 MG; Start 11/12/18 at 12:00 Lansoprazole (Prevacid) 30 mg BID@0600,1800 GTB Last administered on 11/21/18at 06:17; Admin Dose 30 MG; Start 11/12/18 at 18:00 Magnesium Hydroxide (Milk Of Mag) 30 ml Q24H GTB Last administered on 11/21/18 08:54; Admin Dose 30 ML; Start 11/12/18 at 09:30 Senna (Senokot) 2 tab BID GTB Last administered on 11/21/18 08:54; Admin Dose 2 TAB; Start 11/12/18 at 09:30 Sucralfate (Carafate Susp) 1 gm QID GTB Last administered on 11/21/18 12:50; Admin Dose 1 GM; Start 11/12/18 at 13:00 Valproate Sodium (Depakene Liquid Cup) 500 mg Q8 GTB Last administered on 11/21/18 13:05; Admin Dose 500 MG; Start 11/12/18 at 10:00 Insulin Human NPH (Humulin N) 28 unit Q8 SC Last administered on 11/21/18 13:11; Admin Dose 28 UNIT; Start 11/12/18 at 10:00 Sodium Biphosphate/ Sodium Phosphate (Fleet Enema) 133 ml DAILY PRN MD CONSTIPATION; Start 11/12/18 at 10:00 Lisinopril (Zestril) 10 mg DAILY GTB Last administered on 11/21/18 08:55; Admin Dose 10 MG; Start 11/14/18 at 09:00 Albuterol/ Ipratropium (Duoneb) 3 ml Q6H RESP THERAPY PRN HHN SHORTNESS OF BREATH Last administered on 11/21/18 07:41; Admin Dose 3 ML; Start 11/13/18 at 21:00 Vancomycin HCl (Vanco Iv Per Pharmacy) VANCOMYCIN PER PHARMA... PER PROTOCOL XX ; Start 11/17/18 at 13:00 Vancomycin HCl 1.25 gm/Sodium Chloride 250 ml @ 83.333 mls/ hr Q12H IVPB Last administered on 11/21/18 02:26; Admin Dose 83.333 MLS/HR; Start 11/18/18 at 03:00 Cefepime HCl 50 ml @ 100 mls/hr Q12 IVPB Last administered on 11/21/18 08:54; Admin Dose 100 MLS/HR; Start 11/18/18 at 21:00 Carvedilol (Coreg) 12.5 mg BID GTB Last administered on 11/21/18at 08:54; Admin Dose 12.5 MG; Start 11/19/18 at 21:00 Assessment/Plan Hospital Course (Demo Recall) 1. Abnormal electrocardiogram, assess for acute coronary syndrome.-neg trop x 3/EF 30-35% - r/o Mi - no active CP now. [place] follow - NO VT noted. NO ectopy on tele. 2. Cardiomyopathy with decreased left ventricular ejection fraction. EF 30-35% by echo this admit - con't to keep euvolemic as tolerated. Not an ICD candidate. Stable VS. 3. Congestive heart failure, systolic, chronic - remove fluid as tolerated. 4. Hypertension, under reasonable control in the setting of acute hemorrhage. 5. Intracranial hemorrhage - no signs of cognitive improvement now. Unchanged. 6. Chronic encephalopathy- unchanged. On vent. 7. Prior craniectomy. 8. History of prior PTCA and stent placement. No further interventions planned. Meds on board. 9. Anemia. 10. Tachycardia-S tach today ? etiology, autonomic dysfunction - HR < 100 now. Now in sinus. 11.fevers - on anti-Bx. KYLEIGH MENDENHALL MD Nov 21, 2018 14:24
--- NOTE | 2018-11-21 18:50 | CONS ---
Consult Date/Type/Reason Admit Date/Time November 11, 2018 at 22:51 Initial Consult Date 11/15/18 Type of Consultation: Pulm Requesting Provider: NIA DOMINGO MD Date/Time of Note DATE: 11/21/18 TIME: 18:49 Subjective Tolerating trach collar without difficulty. Objective Vitals Vital Signs Date Temp Pulse Resp B/P (MAP) Pulse Ox O2 O2 Flow FiO2 Time Delivery Rate 11/21/18 75 97 Aerosol 5.0 28 16:01 T Tube 11/21/18 99.3 20 121/67 14:49 (85) Intake and Output 11/20/18 11/20/18 11/21/18 1515:00 23:00 07:00 IntakeIntake Total 250 ml 1140 ml OutputOutput Total 1000 ml 900 ml BalanceBalance 250 ml 140 ml -900 ml Exam NECK: Supple. No JVD or lymphadenopathy. CARDIAC EXAM: S1, S2. No added sounds or murmurs. CHEST: Diminished air entry bilaterally ABDOMEN: Soft, nontender. No guarding or rebound. EXTREMITIES: No cyanosis, clubbing edema +2. Results/Medications Result Diagram: 11/21/18 0545 11/19/18 0427 Results 24 hrs Laboratory Tests Test 11/20/18 20:57 11/21/18 00:17 11/21/18 05:45 11/21/18 06:15 Bedside Glucose 176 182 161 White Blood Count 9.5 Red Blood Count 3.89 L Hemoglobin 10.8 L Hematocrit 33.1 L Mean Corpuscular Volume 85.1 Mean Corpuscular 27.8 L Hemoglobin Mean Corpuscular 32.6 Hemoglobin Concent Red Cell Distribution 15.3 H Width Platelet Count 211 # Mean Platelet Volume 12.2 H Immature Granulocytes % 0.400 Neutrophils % 63.0 Lymphocytes % 13.3 L Monocytes % 8.8 Eosinophils % 14.1 H Basophils % 0.4 Nucleated Red Blood 0.0 Cells % Immature Granulocytes # 0.040 H Neutrophils # 6.0 Lymphocytes # 1.3 Monocytes # 0.8 Eosinophils # 1.3 H Basophils # 0.0 Nucleated Red Blood 0.0 Cells # Test 11/21/18 08:20 11/21/18 12:51 11/21/18 17:29 Bedside Glucose 142 191 174 Home Meds Reported Medications Acetylcysteine* (Mucomyst*) 4 Ml Soln, 3 ML NEB BID, EA 06/30/18 Na Phos,M-B/Na Phos,Di-Ba (Fleet Enema Extra) 230 Ml Enema, 230 ML RC NEEDED, ENEMA 06/30/18 Bisacodyl* (Bisacodyl*) 10 Mg Supp, 10 MG [place] Q24H PRN for NEEDED, SUPP 06/30/18 Magnesium Hydroxide* (Milk Of Magnesia*) 400 Mg/5 Ml Oral.susp, 30 ML GTB Q24H for CONSTIPATION, ML 06/30/18 Sennosides* (Senna Lax*) 8.6 Mg Tablet, 2 TAB GTB BID, TAB 06/30/18 Insulin Aspart* (Novolog Insulin Pen*) 100 Unit/Ml Soln, 0 SC .SLIDING SCALE AC, EA IF BS 0-120=0 UNITS,120-150=0 UNIT, 151-200=1 UNIT, 201-250=2 UNIT, 251-300=3 UNIT, 301-350=4 UNIT, 351-400=5 UNIT, ABOVE 400=6 UNIT AND CALL MD. 06/30/18 Glucagon HCl (Glucagon HCl) 1 Mg Vial, 1 MG IJ NEEDED, VIAL IF BS BELOW 60 06/30/18 Insulin NPH Human Isophane (Humulin N) 100 Unit/1 Ml Vial, 28 UNIT SQ Q8H, VIAL 06/30/18 Hydrocodone/Acetaminophen ([place] 5-325 Tablet) 1 Each Tablet, 1 EACH GTB Q6H, TAB NEEDED FOR PAIN 06/30/18 Acetaminophen* (Tylenol*) 500 Mg Tab, 1000 MG GTB Q4H PRN for PAIN 4-6/10, TAB 06/30/18 Acetaminophen* (Tylenol*) 325 Mg Tablet, 650 MG GTB PRN PRN for TRACH TUBE CHANGE, TAB 06/30/18 Acetaminophen* (Tylenol*) 325 Mg Tablet, 650 MG GTB Q4H PRN for MILD PAIN LEVEL 1-3, TAB AND FEVER 100 AND ABOVE 06/30/18 Amino Acids/Protein Hydrolys (PRO-STAT LIQUID) 30 Ml Liquid.pkt, 30 ML GTB DAILY SUGAR FREE 06/30/18 Cran/Vitc/Mannose/Inulin/Brom (Uti-Stat Liquid) 3,875 Mg/30 Ml Liquid, 30 ML GTB DAILY 06/30/18 Hydralazine Hcl* (Hydralazine Hcl*) 25 Mg Tab, 25 MG GTB Q6H, #60 TAB 06/30/18 Furosemide* (Lasix* Liq) 40 Mg/5 Ml Cup, 20 MG GTB DAILY, EA 06/30/18 Carvedilol* (Carvedilol*) 3.125 Mg Tablet, 3.125 MG GTB BID, #60 TAB 06/30/18 Atorvastatin* (Atorvastatin*) 80 Mg Tablet, 80 MG GTB QHS, #30 TAB 06/30/18 Aspirin* (Aspirin* EC) 81 Mg Tablet.dr, 162 MG GTB DAILY, TAB 06/30/18 Valproic Acid* (Valproic Acid* Liq) 250 Mg/5 Ml Syrup, 10 ML GTB Q8H, ML 06/30/18 Sucralfate* (Carafate*) 1 Gm/10 Ml Susp, 1 GM GTB QID, EA 06/30/18 Lisinopril* (Lisinopril*) 5 Mg Tablet, 5 MG GTB DAILY, #30 TAB 06/30/18 Lansoprazole* (Lansoprazole*) 30 Mg Capsule.dr, 30 MG GTB BID, CAP 06/30/18 Lactobacillus Acidophilus (Acidophilus Lactobacillus) 1 Each Capsule, 1 EACH GTB BID, CAP 06/30/18 Medications Current Medications Ondansetron HCl (Zofran Inj) 4 mg Q6H PRN IV NAUSEA AND/OR VOMITING; Start 11/11/18 at 23:00 Acetaminophen (Tylenol Liquid) 650 mg Q6H PRN PO FEVER Last administered on 11/20/18at 03:38; Admin Dose 650 MG; Start 11/11/18 at 23:00 Morphine Sulfate (morphine) 2 mg Q4H PRN IV PAIN LEVEL 7-10 Last administered on 11/12/18at 05:26; Admin Dose 2 MG; Start 11/11/18 at 23:00 Insulin Aspart (Novolog Insulin Pen) NOVOLOG *MODERATE* ALGORI... Q4 SC Last administered on 11/21/18at 17:33; Admin Dose 2 UNIT; Start 11/12/18 at 05:00 Miscellaneous Information 1 ea NOTE XX ; Start 11/12/18 at 03:00 Glucose (Glutose) 15 gm Q15M PRN PO DECREASED GLUCOSE; Start 11/12/18 at 03:00 Glucose (Glutose) 22.5 gm Q15M PRN PO DECREASED GLUCOSE; Start 11/12/18 at 03:00 Dextrose (D50w Syringe) 25 ml Q15M PRN IV DECREASED GLUCOSE; Start 11/12/18 at 03:00 Dextrose (D50w Syringe) 50 ml Q15M PRN IV DECREASED GLUCOSE; Start 11/12/18 at 03:00 Glucagon (Glucagen) 1 mg Q15M PRN IM DECREASED GLUCOSE; Start 11/12/18 at 03:00 Glucose (Glutose) 15 gm Q15M PRN BUCCAL DECREASED GLUCOSE; Start 11/12/18 at 03:00 Acetaminophen (Tylenol Tab) 650 mg Q4H PRN GTB MILD PAIN LEVEL 1-3 Last administered on 11/17/18 05:29; Admin Dose 650 MG; Start 11/12/18 at 09:30 Acetylcysteine (Mucomyst) 3 ml BID RESP THERAPY NEB Last administered on 11/21/18 07:51; Admin Dose 3 ML; Start 11/12/18 at 10:00 Atorvastatin Calcium (Lipitor) 80 mg QHS GTB Last administered on 11/20/18 21:11; Admin Dose 80 MG; Start 11/12/18 at 21:00 Bisacodyl (Dulcolax Supp) 10 mg Q24H PRN [place] CONSTIPATION; Start 11/12/18 at 09:30 Furosemide (Lasix) 20 mg DAILY GTB Last administered on 11/21/18 08:55; Admin Dose 20 MG; Start 11/12/18 at 09:30 Hydralazine HCl (Apresoline) 25 mg Q6 GTB Last administered on 11/21/18 17:31; Admin Dose 25 MG; Start 11/12/18 at 12:00 Lansoprazole (Prevacid) 30 mg BID@0600,1800 GTB Last administered on 11/21/18 17:31; Admin Dose 30 MG; Start 11/12/18 at 18:00 Magnesium Hydroxide (Milk Of Mag) 30 ml Q24H GTB Last administered on 11/21/18 08:54; Admin Dose 30 ML; Start 11/12/18 at 09:30 Senna (Senokot) 2 tab BID GTB Last administered on 11/21/18 08:54; Admin Dose 2 TAB; Start 11/12/18 at 09:30 Sucralfate (Carafate Susp) 1 gm QID GTB Last administered on 11/21/18 17:31; Admin Dose 1 GM; Start 11/12/18 at 13:00 Valproate Sodium (Depakene Liquid Cup) 500 mg Q8 GTB Last administered on 11/21/18 13:05; Admin Dose 500 MG; Start 11/12/18 at 10:00 Insulin Human NPH (Humulin N) 28 unit Q8 SC Last administered on 11/21/18 13:11; Admin Dose 28 UNIT; Start 11/12/18 at 10:00 Sodium Biphosphate/ Sodium Phosphate (Fleet Enema) 133 ml DAILY PRN [place] CONSTIPATION; Start 11/12/18 at 10:00 Lisinopril (Zestril) 10 mg DAILY GTB Last administered on 11/21/18 08:55; Admin Dose 10 MG; Start 11/14/18 at 09:00 Albuterol/ Ipratropium (Duoneb) 3 ml Q6H RESP THERAPY PRN HHN SHORTNESS OF BREATH Last administered on 11/21/18 07:41; Admin Dose 3 ML; Start 11/13/18 at 21:00 Vancomycin HCl (Vanco Iv Per Pharmacy) VANCOMYCIN PER PHARMA... PER PROTOCOL XX ; Start 11/17/18 at 13:00 Vancomycin HCl 1.25 gm/Sodium Chloride 250 ml @ 83.333 mls/ hr Q12H IVPB Last administered on 11/21/18 14:42; Admin Dose 83.333 MLS/HR; Start 11/18/18 at 03:00 Cefepime HCl 50 ml @ 100 mls/hr Q12 IVPB Last administered on 11/21/18 08:54; Admin Dose 100 MLS/HR; Start 11/18/18 at 21:00 Carvedilol (Coreg) 12.5 mg BID GTB Last administered on 11/21/18 08:54; Admin Dose 12.5 MG; Start 11/19/18 at 21:00 Assessment/Plan Assessment/Plan (Daily) IMP: 1. Chronic respiratory failure with tracheostomy and T-tube 2. Acute on chronic cerebral hemorrhages. 3. Encephalopathy secondary to above 4. History of seizure disorder, MRI pending. 5. Healthcare associated pneumonia RECS: 1. Continue cool aerosol via t-tube 2. Antibiotics as per ID 3. Tube feeding as tolerated VICTOR M MCKEON MD Nov 21, 2018 18:50
[2018-11-21] MEDS: ATORVASTATIN 80 MG TAB GTB SCH (21:02)
--- NOTE | 2018-11-21 23:36 | CONS ---
Assessment/Plan Assessment/Plan Hospital Course (Demo Recall) - intermittent fever, probably due to bacteremia, HCAP and intra-parenchymal hemorrhage - bacteremia due to MRSA on 11/15/2018 - possible HCAP, however, given the polymicrobial growth of his resp culture, all bacteria may be colonizers of the airway: providencia, proteus, pseudomonas, group B strep, klebsiella - Hx of CVA. 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 acicmen-jzxlazxs-xkmfvmiq lobes; stable large subacute R frontal temporal parietal intraparenchymal hemorrhage, plus encephalomalacia/gliosis; stable moderate to severe ventriculomegaly; moderate b/l occipital horn acute intraventricular hemorrhage; chronic R paracentral pontine infarction; small chronic R cerebellar infarctions; L temporal lobe with associated encephalomalacia/gliosis within this region as well as laminar necrosis; moderate chronic microvascular ischemic changes; basilar dolichoectasia; extensive bilateral mastoid air cell effusions - aerococci in urine culture on 11/14/2018, probable colonization - chronic hypoxic resp failure - h/o tracheostomy placement - unresponsive state due to extensive CVA - diarrhea recommendations - pending results: repeat cultures of blood from 11/17/2018, and resp culture (pseudomonas and gram negative) - continue IV vancomycin (re-start 11/17/2018) for bacteremia due to MRSA - continue IV cefepime (11/18/2018-) for possible HCAP. Pt completed pip/tazo (11/15/2018-11/17/2018) Management discussed with Pt's family on 11/20/2018 Consultation Date/Type/Reason Admit Date/Time November 11, 2018 at 22:51 Initial Consult Date 11/15/18 Type of Consult ID Requesting Provider: NIA DOMINGO MD Date/Time of Note DATE: 11/21/18 TIME: 23:34 24 HR Interval Summary Subjective hx not possible: pt non-verbal, pt critical, pt critical status Exam/Review of Systems Exam Vitals Vital Signs Date Temp Pulse Resp B/P (MAP) Pulse Ox O2 O2 Flow FiO2 Time Delivery Rate 11/21/18 99.2 86 19 136/76 20:10 (96) 11/21/18 97 Aerosol 8.0 35 20:02 Mask Intake and Output 11/20/18 11/20/18 11/21/18 1515:00 23:00 07:00 IntakeIntake Total 250 ml 1140 ml OutputOutput Total 1000 ml 900 ml BalanceBalance 250 ml 140 ml -900 ml Constitutional: non-verbal, frail Psych: confusion Head: other (s/p craniectomy) Eyes: nl conjunctiva, nl lids, nl sclera ENMT: nl external ears & nose, nl nasal mucosa & septum, mucosa pink and moist Neck: other (trach) Respiratory: crackles/rales, wheezing Cardiovascular: regular rate and rhythm, nl pulses Gastrointestinal: soft, non-tender, other (GT) Genitourinary - Male: other (FC) Musculoskeletal: No swelling Extremities: No edema Neurological: unresponsive Skin: No rash or lesions Results Result Diagram: 11/21/18 0545 11/19/18 0427 Results 24hrs Laboratory Tests Test 11/21/18 00:17 11/21/18 05:45 11/21/18 06:15 11/21/18 08:20 Bedside Glucose 182 161 142 White Blood Count 9.5 Red Blood Count 3.89 L Hemoglobin 10.8 L Hematocrit 33.1 L Mean Corpuscular Volume 85.1 Mean Corpuscular 27.8 L Hemoglobin Mean Corpuscular 32.6 Hemoglobin Concent Red Cell Distribution 15.3 H Width Platelet Count 211 # Mean Platelet Volume 12.2 H Immature Granulocytes % 0.400 Neutrophils % 63.0 Lymphocytes % 13.3 L Monocytes % 8.8 Eosinophils % 14.1 H Basophils % 0.4 Nucleated Red Blood 0.0 Cells % Immature Granulocytes # 0.040 H Neutrophils # 6.0 Lymphocytes # 1.3 Monocytes # 0.8 Eosinophils # 1.3 H Basophils # 0.0 Nucleated Red Blood 0.0 Cells # Test 11/21/18 12:51 11/21/18 17:29 11/21/18 22:59 Bedside Glucose 191 174 166 Medications Medication Current Medications Ondansetron HCl (Zofran Inj) 4 mg Q6H PRN IV NAUSEA AND/OR VOMITING; Start 11/11/18 at 23:00 Acetaminophen (Tylenol Liquid) 650 mg Q6H PRN PO FEVER Last administered on 11/20/18at 03:38; Admin Dose 650 MG; Start 11/11/18 at 23:00 Morphine Sulfate (morphine) 2 mg Q4H PRN IV PAIN LEVEL 7-10 Last administered o n 11/12/18at 05:26; Admin Dose 2 MG; Start 11/11/18 at 23:00 Insulin Aspart (Novolog Insulin Pen) NOVOLOG *MODERATE* ALGORI... Q4 SC Last administered on 11/21/18 17:33; Admin Dose 2 UNIT; Start 11/12/18 at 05:00 Miscellaneous Information 1 ea NOTE XX ; Start 11/12/18 at 03:00 Glucose (Glutose) 15 gm Q15M PRN PO DECREASED GLUCOSE; Start 11/12/18 at 03:00 Glucose (Glutose) 22.5 gm Q15M PRN PO DECREASED GLUCOSE; Start 11/12/18 at 03:00 Dextrose (D50w Syringe) 25 ml Q15M PRN IV DECREASED GLUCOSE; Start 11/12/18 at 03:00 Dextrose (D50w Syringe) 50 ml Q15M PRN IV DECREASED GLUCOSE; Start 11/12/18 at 03:00 Glucagon (Glucagen) 1 mg Q15M PRN IM DECREASED GLUCOSE; Start 11/12/18 at 03:00 Glucose (Glutose) 15 gm Q15M PRN BUCCAL DECREASED GLUCOSE; Start 11/12/18 at 03:00 Acetaminophen (Tylenol Tab) 650 mg Q4H PRN GTB MILD PAIN LEVEL 1-3 Last administered on 11/17/18at 05:29; Admin Dose 650 MG; Start 11/12/18 at 09:30 Acetylcysteine (Mucomyst) 3 ml BID RESP THERAPY NEB Last administered on 11/21/18at 19:56; Admin Dose 3 ML; Start 11/12/18 at 10:00 Atorvastatin Calcium (Lipitor) 80 mg QHS GTB Last administered on 11/21/18at 21:02; Admin Dose 80 MG; Start 11/12/18 at 21:00 Bisacodyl (Dulcolax Supp) 10 mg Q24H PRN [place] CONSTIPATION; Start 11/12/18 at 09:30 Furosemide (Lasix) 20 mg DAILY GTB Last administered on 11/21/18 08:55; Admin Dose 20 MG; Start 11/12/18 at 09:30 Hydralazine HCl (Apresoline) 25 mg Q6 GTB Last administered on 11/21/18at 17:31; Admin Dose 25 MG; Start 11/12/18 at 12:00 Lansoprazole (Prevacid) 30 mg BID@0600,1800 GTB Last administered on 11/21/18 17:31; Admin Dose 30 MG; Start 11/12/18 at 18:00 Magnesium Hydroxide (Milk Of Mag) 30 ml Q24H GTB Last administered on 11/21/18 08:54; Admin Dose 30 ML; Start 11/12/18 at 09:30 Senna (Senokot) 2 tab BID GTB Last administered on 11/21/18 21:02; Admin Dose 2 TAB; Start 11/12/18 at 09:30 Sucralfate (Carafate Susp) 1 gm QID GTB Last administered on 11/21/18 21:02; Admin Dose 1 GM; Start 11/12/18 at 13:00 Valproate Sodium (Depakene Liquid Cup) 500 mg Q8 GTB Last administered on 11/21/18 21:46; Admin Dose 500 MG; Start 11/12/18 at 10:00 Insulin Human NPH (Humulin N) 28 unit Q8 SC Last administered on 11/21/18 13 :11; Admin Dose 28 UNIT; Start 11/12/18 at 10:00 Sodium Biphosphate/ Sodium Phosphate (Fleet Enema) 133 ml DAILY PRN [place] CONSTIPATION; Start 11/12/18 at 10:00 Lisinopril (Zestril) 10 mg DAILY GTB Last administered on 11/21/18 08:55; Admin Dose 10 MG; Start 11/14/18 at 09:00 Albuterol/ Ipratropium (Duoneb) 3 ml Q6H RESP THERAPY PRN HHN SHORTNESS OF BREATH Last administered on 11/21/18 19:57; Admin Dose 3 ML; Start 11/13/18 at 21:00 Vancomycin HCl (Vanco Iv Per Pharmacy) VANCOMYCIN PER PHARMA... PER PROTOCOL XX ; Start 11/17/18 at 13:00 Vancomycin HCl 1.25 gm/Sodium Chloride 250 ml @ 83.333 mls/ hr Q12H IVPB Last administered on 11/21/18 14:42; Admin Dose 83.333 MLS/HR; Start 11/18/18 at 0 3:00 Cefepime HCl 50 ml @ 100 mls/hr Q12 IVPB Last administered on 6/2/19at 21:01; Admin Dose 100 MLS/HR; Start 11/18/18 at 21:00 Carvedilol (Coreg) 12.5 mg BID GTB Last administered on 11/21/18at 21:02; Admin Dose 12.5 MG; Start 11/19/18 at 21:00 APRIL JORDAN M.D. Nov 21, 2018 23:36
[2018-11-22] VITALS (11 sets, daily range): BP systolic 103–144; BP diastolic 55–74; PULSE 70–84; RESP 18–20
[2018-11-22] MEDS: NPH, HUMAN INSULIN ISOPHANE 3ML VIAL SC SCH ×4 (01:20→22:13)
[2018-11-22] MEDS: INSULIN ASPART [NOVOLOG] 3 ML PEN SC SCH ×7 (01:21→22:14)
[2018-11-22] MEDS: VANCOMYCIN HCL 1.25 GM in SOD CHLORIDE 0.9% 250 ML IVPB SCH ×2 (02:37→15:36)
[2018-11-22] MEDS: LANSOPRAZOLE 30 MG CAP GTB SCH ×2 (05:32→17:54)
[2018-11-22] MEDS: VALPROIC ACID LIQUID CUP 250 MG/5 ML CUP GTB SCH ×3 (05:32→21:58)
[2018-11-22] MEDS: ALBUTEROL/IPRATROPIUM (NEB) 3 ML AMP HHN PRN ×2 (07:49→21:37)
[2018-11-22] MEDS: ACETYLCYSTEINE 20% 4 ML VIAL NEB SCH ×2 (08:04→20:00)
[2018-11-22] MEDS: SUCRALFATE (100 MG/ML) 10ML CUP GTB SCH ×4 (09:18→20:58)
[2018-11-22] MEDS: FUROSEMIDE 20 MG TAB GTB SCH (09:19)
[2018-11-22] MEDS: LISINOPRIL 5 MG TAB GTB SCH (09:19)
[2018-11-22] MEDS: CEFEPIME 1GM/50 ML (PMX) 50 ML IVPB SCH ×2 (09:19→20:56)
[2018-11-22] MEDS: SENNA TAB GTB SCH ×2 (09:19→20:57)
[2018-11-22] MEDS: MAGNESIUM HYDROXIDE 30ML CUP GTB SCH (09:21)
--- NOTE | 2018-11-22 12:09 | CONS ---
Consult Date/Type/Reason Admit Date/Time November 11, 2018 at 22:51 Initial Consult Date 11/14/18 Type of Consult Pulmonary Requesting Provider: NIA DOMINGO MD Date/Time of Note DATE: 11/22/18 TIME: 12:07 Subjective Patient appears comfortable this morning. No respiratory distress. Objective Vital Signs Date Temp Pulse Resp B/P (MAP) Pulse Ox O2 O2 Flow FiO2 Time Delivery Rate 11/22/18 98.6 72 20 103/55 92 Mechanical 11:19 (71) Ventilator Trach Collar 11/22/18 5.0 28 08:00 Intake and Output 11/21/18 11/21/18 11/22/18 1515:00 23:00 07:00 IntakeIntake Total 1240 ml 1140 ml 1190 ml OutputOutput Total 200 ml 1300 ml 1100 ml BalanceBalance 1040 ml -160 ml 90 ml Exam GENERAL: Chronically ill-appearing gentleman on cool aerosol VITAL SIGNS: per chart NECK: Supple. No JVD or lymphadenopathy. CARDIAC EXAM: S1, S2. No added sounds or murmurs. CHEST: Diminished air entry bilaterally ABDOMEN: Soft, nontender. No guarding or rebound. EXTREMITIES: No cyanosis, clubbing or edema. NEUROLOGIC: Unable to assess Vent Setting Fraction of Inspired Oxygen pe: 28 Results/Medications Result Diagram: 11/21/18 0545 11/19/18 0427 Results 24 hrs Laboratory Tests Test 11/21/18 12:51 11/21/18 17:29 11/21/18 22:59 11/22/18 01:52 Bedside Glucose 191 174 166 187 Test 11/22/18 05:42 11/22/18 09:13 Bedside Glucose 159 183 Medications Current Medications Ondansetron HCl (Zofran Inj) 4 mg Q6H PRN IV NAUSEA AND/OR VOMITING; Start 11/11/18 at 23:00 Acetaminophen (Tylenol Liquid) 650 mg Q6H PRN PO FEVER Last administered on 11/20/18at 03:38; Admin Dose 650 MG; Start 11/11/18 at 23:00 Morphine Sulfate (morphine) 2 mg Q4H PRN IV PAIN LEVEL 7-10 Last administered on 11/12/18at 05:26; Admin Dose 2 MG; Start 11/11/18 at 23:00 Insulin Aspart (Novolog Insulin Pen) NOVOLOG *MODERATE* ALGORI... Q4 SC Last administered on 11/22/18 09:31; Admin Dose 4 UNIT; Start 11/12/18 at 05:00 Miscellaneous Information 1 ea NOTE XX ; Start 11/12/18 at 03:00 Glucose (Glutose) 15 gm Q15M PRN PO DECREASED GLUCOSE; Start 11/12/18 at 03:00 Glucose (Glutose) 22.5 gm Q15M PRN PO DECREASED GLUCOSE; Start 11/12/18 at 03:00 Dextrose (D50w Syringe) 25 ml Q15M PRN IV DECREASED GLUCOSE; Start 11/12/18 at 03:00 Dextrose (D50w Syringe) 50 ml Q15M PRN IV DECREASED GLUCOSE; Start 11/12/18 at 03:00 Glucagon (Glucagen) 1 mg Q15M PRN IM DECREASED GLUCOSE; Start 11/12/18 at 03:00 Glucose (Glutose) 15 gm Q15M PRN BUCCAL DECREASED GLUCOSE; Start 11/12/18 at 03:00 Acetaminophen (Tylenol Tab) 650 mg Q4H PRN GTB MILD PAIN LEVEL 1-3 Last administered on 11/17/18at 05:29; Admin Dose 650 MG; Start 11/12/18 at 09:30 Acetylcysteine (Mucomyst) 3 ml BID RESP THERAPY NEB Last administered on 11/22/18at 08:04; Admin Dose 3 ML; Start 11/12/18 at 10:00 Atorvastatin Calcium (Lipitor) 80 mg QHS GTB Last administered on 11/21/18at 21:02; Admin Dose 80 MG; Start 11/12/18 at 21:00 Bisacodyl (Dulcolax Supp) 10 mg Q24H PRN [place] CONSTIPATION; Start 11/12/18 at 09:30 Furosemide (Lasix) 20 mg DAILY GTB Last administered on 11/22/18 09:19; Admin Dose 20 MG; Start 11/12/18 at 09:30 Hydralazine HCl (Apresoline) 25 mg Q6 GTB Last administered on 11/22/18 05:33; Admin Dose 25 MG; Start 11/12/18 at 12:00 Lansoprazole (Prevacid) 30 mg BID@0600,1800 GTB Last administered on 11/22/18at 05:32; Admin Dose 30 MG; Start 11/12/18 at 18:00 Magnesium Hydroxide (Milk Of Mag) 30 ml Q24H GTB Last administered on 11/22/18 09:21; Admin Dose 30 ML; Start 11/12/18 at 09:30 Senna (Senokot) 2 tab BID GTB Last administered on 11/22/18 09:19; Admin Dose 2 TAB; Start 11/12/18 at 09:30 Sucralfate (Carafate Susp) 1 gm QID GTB Last administered on 11/22/18 09:18; Admin Dose 1 GM; Start 11/12/18 at 13:00 Valproate Sodium (Depakene Liquid Cup) 500 mg Q8 GTB Last administered on 11/22/18 05:32; Admin Dose 500 MG; Start 11/12/18 at 10:00 Insulin Human NPH (Humulin N) 28 unit Q8 SC Last administered on 11/22/18 06:34; Admin Dose 28 UNIT; Start 11/12/18 at 10:00 Sodium Biphosphate/ Sodium Phosphate (Fleet Enema) 133 ml DAILY PRN [place] CONSTIPATION; Start 11/12/18 at 10:00 Lisinopril (Zestril) 10 mg DAILY GTB Last administered on 11/22/18 09:19; Admin Dose 10 MG; Start 11/14/18 at 09:00 Albuterol/ Ipratropium (Duoneb) 3 ml Q6H RESP THERAPY PRN HHN SHORTNESS OF BREATH Last administered on 11/22/18 07:49; Admin Dose 3 ML; Start 11/13/18 at 21:00 Vancomycin HCl (Vanco Iv Per Pharmacy) VANCOMYCIN PER PHARMA... PER PROTOCOL XX ; Start 11/17/18 at 13:00 Vancomycin HCl 1.25 gm/Sodium Chloride 250 ml @ 83.333 mls/ hr Q12H IVPB Last administered on 11/22/18 02:37; Admin Dose 83.333 MLS/HR; Start 11/18/18 at 03:00 Cefepime HCl 50 ml @ 100 mls/hr Q12 IVPB Last administered on 11/22/18 09:19; Admin Dose 100 MLS/HR; Start 11/18/18 at 21:00 Carvedilol (Coreg) 12.5 mg BID GTB Last administered on 6/3/19at 09:19; Admin Dose 12.5 MG; Start 11/19/18 at 21:00 Miscellaneous Information (*Rx Drug Level Order Reminder*) VANCO TROUGH 11/23 @ 1,400 1400 ONCE XX ; Start 11/22/18 at 14:00; Stop 11/22/18 at 14:01 Assessment/Plan Hospital Course (Demo Recall) IMP: 1. Chronic respiratory failure with tracheostomy and T-tube 2. Acute on chronic cerebral hemorrhages. 3. Encephalopathy secondary to above 4. History of seizure disorder, MRI pending. 5. Healthcare associated pneumonia RECS: 1. Continue cool aerosol via t-tube 2. Antibiotics as per ID 3. Tube feeding as tolerated LULU GARCIA [facility] Nov 22, 2018 12:09
--- NOTE | 2018-11-22 12:14 | CONS ---
Assessment/Plan Assessment/Plan Hospital Course (Demo Recall) IMPRESSION: 1. Abnormal electrocardiogram, assess for acute coronary syndrome.-neg trop x 3/EF 30-35% 2. Cardiomyopathy with decreased left ventricular ejection fraction. EF 30-35% by echo this admit 3. Congestive heart failure, systolic, chronic. 4. Hypertension, under reasonable control in the setting of acute hemorrhage. 5. Intracranial hemorrhage. 6. Chronic encephalopathy. 7. Prior craniectomy. 8. History of prior PTCA and stent placement. 9. Anemia. 10. Tachycardia-S tach today ? etiology, autonomic dysfunction 11.fevers-defervesced 12. SVT-overnight at 160-170 regular, ? AVNRT Recc: -Now on tele -continue hydralazine/ACEI/coreg as tolerated -Continue statin -ongoing NRSG eval -Rx fevers -Continue abx's and f/u cx data -Now DNR Consultation Date/Type/Reason Admit Date/Time November 11, 2018 at 22:51 Initial Consult Date 11/12/18 Type of Consult Cardiology Reason for Consultation CHF/cardiomyopathy Requesting Provider: NIA DOMINGO MD Date/Time of Note DATE: 11/22/18 TIME: 12:11 Exam/Review of Systems Vital Signs Vitals Vital Signs Date Temp Pulse Resp B/P (MAP) Pulse Ox O2 O2 Flow FiO2 Time Delivery Rate 11/22/18 98.6 72 20 103/55 92 Mechanical 11:19 (71) Ventilator Trach Collar 11/22/18 5.0 28 08:00 Intake and Output 11/21/18 11/21/18 11/22/18 1515:00 23:00 07:00 IntakeIntake Total 1240 ml 1140 ml 1190 ml OutputOutput Total 200 ml 1300 ml 1100 ml BalanceBalance 1040 ml -160 ml 90 ml Exam Exam Review of Systems: CONSTITUTIONAL: No fevers, chills. PULMONARY: trached CARDIOVASCULAR: No chest pain/palpitations GASTROINTESTINAL: No nausea/vomiting. GENITOURINARY: No hematuria/dysuria. MUSCULOSKELETAL: No myagias/arthalgias. PSYCHIATRIC: The patient denies depression. NEUROLOGIC: encephalopathy Constitutional: other (encephalopathic) Psych: no complaints Head: normocephalic ENMT: mucosa pink and moist Neck: other (trached) Respiratory: diminished breath sounds (at bases/B) Cardiovascular: regular rate and rhythm Gastrointestinal: soft, non-tender Musculoskeletal: muscle weakness (generalized) Extremities: edema (none) Labs Result Diagram: 11/21/18 0545 11/19/18 0427 Results 24hrs Laboratory Tests Test 11/21/18 12:51 11/21/18 17:29 11/21/18 22:59 11/22/18 01:52 Bedside Glucose 191 174 166 187 Test 11/22/18 05:42 11/22/18 09:13 Bedside Glucose 159 183 Medications Medications Current Medications Ondansetron HCl (Zofran Inj) 4 mg Q6H PRN IV NAUSEA AND/OR VOMITING; Start 11/11/18 at 23:00 Acetaminophen (Tylenol Liquid) 650 mg Q6H PRN PO FEVER Last administered on 11/20/18at 03:38; Admin Dose 650 MG; Start 11/11/18 at 23:00 Morphine Sulfate (morphine) 2 mg Q4H PRN IV PAIN LEVEL 7-10 Last administered o n 11/12/18at 05:26; Admin Dose 2 MG; Start 11/11/18 at 23:00 Insulin Aspart (Novolog Insulin Pen) NOVOLOG *MODERATE* ALGORI... Q4 SC Last administered on 11/22/18at 09:31; Admin Dose 4 UNIT; Start 11/12/18 at 05:00 Miscellaneous Information 1 ea NOTE XX ; Start 11/12/18 at 03:00 Glucose (Glutose) 15 gm Q15M PRN PO DECREASED GLUCOSE; Start 11/12/18 at 03:00 Glucose (Glutose) 22.5 gm Q15M PRN PO DECREASED GLUCOSE; Start 11/12/18 at 03:00 Dextrose (D50w Syringe) 25 ml Q15M PRN IV DECREASED GLUCOSE; Start 11/12/18 at 03:00 Dextrose (D50w Syringe) 50 ml Q15M PRN IV DECREASED GLUCOSE; Start 11/12/18 at 03:00 Glucagon (Glucagen) 1 mg Q15M PRN IM DECREASED GLUCOSE; Start 11/12/18 at 03:00 Glucose (Glutose) 15 gm Q15M PRN BUCCAL DECREASED GLUCOSE; Start 11/12/18 at 03:00 Acetaminophen (Tylenol Tab) 650 mg Q4H PRN GTB MILD PAIN LEVEL 1-3 Last administered on 11/17/18at 05:29; Admin Dose 650 MG; Start 11/12/18 at 09:30 Acetylcysteine (Mucomyst) 3 ml BID RESP THERAPY NEB Last administered on 11/22/18 08:04; Admin Dose 3 ML; Start 11/12/18 at 10:00 Atorvastatin Calcium (Lipitor) 80 mg QHS GTB Last administered on 11/21/18 21:02; Admin Dose 80 MG; Start 11/12/18 at 21:00 Bisacodyl (Dulcolax Supp) 10 mg Q24H PRN [place] CONSTIPATION; Start 11/12/18 at 09:30 Furosemide (Lasix) 20 mg DAILY GTB Last administered on 11/22/18 09:19; Admin Dose 20 MG; Start 11/12/18 at 09:30 Hydralazine HCl (Apresoline) 25 mg Q6 GTB Last administered on 11/22/18 05:33; Admin Dose 25 MG; Start 11/12/18 at 12:00 Lansoprazole (Prevacid) 30 mg BID@0600,1800 GTB Last administered on 11/22/18 05:32; Admin Dose 30 MG; Start 11/12/18 at 18:00 Magnesium Hydroxide (Milk Of Mag) 30 ml Q24H GTB Last administered on 11/22/18 09:21; Admin Dose 30 ML; Start 11/12/18 at 09:30 Senna (Senokot) 2 tab BID GTB Last administered on 11/22/18 09:19; Admin Dose 2 TAB; Start 11/12/18 at 09:30 Sucralfate (Carafate Susp) 1 gm QID GTB Last administered on 11/22/18 09:18; Admin Dose 1 GM; Start 11/12/18 at 13:00 Valproate Sodium (Depakene Liquid Cup) 500 mg Q8 GTB Last administered on 11/22/18 05:32; Admin Dose 500 MG; Start 11/12/18 at 10:00 Insulin Human NPH (Humulin N) 28 unit Q8 SC Last administered on 11/22/18 06 :34; Admin Dose 28 UNIT; Start 11/12/18 at 10:00 Sodium Biphosphate/ Sodium Phosphate (Fleet Enema) 133 ml DAILY PRN [place] CONSTIPATION; Start 11/12/18 at 10:00 Lisinopril (Zestril) 10 mg DAILY GTB Last administered on 11/22/18at 09:19; Admin Dose 10 MG; Start 11/14/18 at 09:00 Albuterol/ Ipratropium (Duoneb) 3 ml Q6H RESP THERAPY PRN HHN SHORTNESS OF BREATH Last administered on 11/22/18at 07:49; Admin Dose 3 ML; Start 11/13/18 at 21:00 Vancomycin HCl (Vanco Iv Per Pharmacy) VANCOMYCIN PER PHARMA... PER PROTOCOL XX ; Start 11/17/18 at 13:00 Vancomycin HCl 1.25 gm/Sodium Chloride 250 ml @ 83.333 mls/ hr Q12H IVPB Last administered on 11/22/18at 02:37; Admin Dose 83.333 MLS/HR; Start 11/18/18 at 0 3:00 Cefepime HCl 50 ml @ 100 mls/hr Q12 IVPB Last administered on 11/22/18at 09:19; Admin Dose 100 MLS/HR; Start 11/18/18 at 21:00 Carvedilol (Coreg) 12.5 mg BID GTB Last administered on 11/22/18at 09:19; Admin Dose 12.5 MG; Start 11/19/18 at 21:00 Miscellaneous Information (*Rx Drug Level Order Reminder*) VANCO TROUGH 11/23 @ 1,400 1400 ONCE XX ; Start 11/22/18 at 14:00; Stop 11/22/18 at 14:01 MAE ORSALES Nov 22, 2018 12:14
--- NOTE | 2018-11-22 16:31 | PN ---
Date/Time of Note Date/Time of Note DATE: 11/22/18 TIME: 16:31 Assessment/Plan VTE Prophylaxis Risk score (from [facility])>0 risk: 4 SCD applied (from [facility]): Yes Pharmacological prophylaxis: NA/contraindicated Pharm contraindication: bleeding Lines/Catheters IV Catheter Type (from [facility]): [place] Urinary Cath still in place: Yes Reason Cath still needed: urinary retention Assessment/Plan Hospital Course Stable VS, no fever, continues on Cefepime and Vanco. Assessment/Plan -Intracranial hemorrhage, Dr. Espana is following in neurosurgery consultation. Family does not want any aggressive treatment. -Sepsis with fever and leukocytosis most likely secondary to HCAP. Continue antibiotics per ID. Dr. Kiran is following in infection disease consultation. -Recent history of right hemicraniectomy, details are not available. Records requested. -Chronic respiratory failure with tracheostomy, patient is currently on T-tube. -Healthcare associated pneumonia, continue antibiotics. -Coronary artery disease, status post PTCA with stent placement -Ischemic cardiomyopathy -Diabetes -Dysphagia with G-tube -Dyslipidemia -Obesity with BMI of 35.3 -DNR status Further recommendations depends on clinical course. Plan of care discussed with Dr. Cortez. Result Diagram: 11/21/18 0545 11/19/18 0427 Results 24hrs Laboratory Tests Test 11/21/18 17:29 11/21/18 22:59 11/22/18 01:52 11/22/18 05:42 Bedside Glucose 174 166 187 159 Test 11/22/18 09:13 Bedside Glucose 183 Exam/Review of Systems Exam Vitals Vital Signs Date Temp Pulse Resp B/P (MAP) Pulse Ox O2 O2 Flow FiO2 Time Delivery Rate 11/22/18 72 16:01 11/22/18 98.3 20 120/60 94 Trach 15:52 (80) Collar 11/22/18 5.0 28 08:00 Intake and Output 11/21/18 11/21/18 11/22/18 1515:00 23:00 07:00 IntakeIntake Total 1240 ml 1140 ml 1190 ml OutputOutput Total 200 ml 1300 ml 1100 ml BalanceBalance 1040 ml -160 ml 90 ml Exam Constitutional: non-verbal, frail Head: other (Status post right craniectomy) Neck: other (Trach) Respiratory: diminished breath sounds Cardiovascular: regular rate and rhythm Gastrointestinal: soft, non-tender, other (G-tube) Musculoskeletal: muscle weakness Extremities: normal pulses Neurological: other (Noncommunicative) Skin: nl turgor Results Results 24hrs Laboratory Tests Test 11/21/18 17:29 11/21/18 22:59 11/22/18 01:52 11/22/18 05:42 Bedside Glucose 174 166 187 159 Test 11/22/18 09:13 Bedside Glucose 183 Medications Medication Current Medications Ondansetron HCl (Zofran Inj) 4 mg Q6H PRN IV NAUSEA AND/OR VOMITING; Start 11/11/18 at 23:00 Acetaminophen (Tylenol Liquid) 650 mg Q6H PRN PO FEVER Last administered on 11/20/18at 03:38; Admin Dose 650 MG; Start 11/11/18 at 23:00 Morphine Sulfate (morphine) 2 mg Q4H PRN IV PAIN LEVEL 7-10 Last administered on 11/12/18at 05:26; Admin Dose 2 MG; Start 11/11/18 at 23:00 Insulin Aspart (Novolog Insulin Pen) NOVOLOG *MODERATE* ALGORI... Q4 SC Last administered on 11/22/18at 13:28; Admin Dose 4 UNIT; Start 11/12/18 at 05:00 Miscellaneous Information 1 ea NOTE XX ; Start 11/12/18 at 03:00 Glucose (Glutose) 15 gm Q15M PRN PO DECREASED GLUCOSE; Start 11/12/18 at 03:00 Glucose (Glutose) 22.5 gm Q15M PRN PO DECREASED GLUCOSE; Start 11/12/18 at 03:00 Dextrose (D50w Syringe) 25 ml Q15M PRN IV DECREASED GLUCOSE; Start 11/12/18 at 03:00 Dextrose (D50w Syringe) 50 ml Q15M PRN IV DECREASED GLUCOSE; Start 11/12/18 at 03:00 Glucagon (Glucagen) 1 mg Q15M PRN IM DECREASED GLUCOSE; Start 11/12/18 at 03:00 Glucose (Glutose) 15 gm Q15M PRN BUCCAL DECREASED GLUCOSE; Start 11/12/18 at 03:00 Acetaminophen (Tylenol Tab) 650 mg Q4H PRN GTB MILD PAIN LEVEL 1-3 Last administered on 11/17/18at 05:29; Admin Dose 650 MG; Start 11/12/18 at 09:30 Acetylcysteine (Mucomyst) 3 ml BID RESP THERAPY NEB Last administered on 11/22/18 08:04; Admin Dose 3 ML; Start 11/12/18 at 10:00 Atorvastatin Calcium (Lipitor) 80 mg QHS GTB Last administered on 11/21/18 21:02; Admin Dose 80 MG; Start 11/12/18 at 21:00 Bisacodyl (Dulcolax Supp) 10 mg Q24H PRN [place] CONSTIPATION; Start 11/12/18 at 09:30 Furosemide (Lasix) 20 mg DAILY GTB Last administered on 11/22/18 09:19; Admin Dose 20 MG; Start 11/12/18 at 09:30 Hydralazine HCl (Apresoline) 25 mg Q6 GTB Last administered on 11/22/18 13:16; Admin Dose 25 MG; Start 11/12/18 at 12:00 Lansoprazole (Prevacid) 30 mg BID@0600,1800 GTB Last administered on 11/22/18 05:32; Admin Dose 30 MG; Start 11/12/18 at 18:00 Magnesium Hydroxide (Milk Of Mag) 30 ml Q24H GTB Last administered on 11/22/18 09:21; Admin Dose 30 ML; Start 11/12/18 at 09:30 Senna (Senokot) 2 tab BID GTB Last administered on 11/22/18 09:19; Admin Dose 2 TAB; Start 11/12/18 at 09:30 Sucralfate (Carafate Susp) 1 gm QID GTB Last administered on 11/22/18 13:16; A dmin Dose 1 GM; Start 11/12/18 at 13:00 Valproate Sodium (Depakene Liquid Cup) 500 mg Q8 GTB Last administered on 11/22/18 13:16; Admin Dose 500 MG; Start 11/12/18 at 10:00 Insulin Human NPH (Humulin N) 28 unit Q8 SC Last administered on 11/22/18 13:25; Admin Dose 28 UNIT; Start 11/12/18 at 10:00 Sodium Biphosphate/ Sodium Phosphate (Fleet Enema) 133 ml DAILY PRN [place] CONSTIPATION; Start 11/12/18 at 10:00 Lisinopril (Zestril) 10 mg DAILY GTB Last administered on 11/22/18 09:19; Admin Dose 10 MG; Start 11/14/18 at 09:00 Albuterol/ Ipratropium (Duoneb) 3 ml Q6H RESP THERAPY PRN HHN SHORTNESS OF BREATH Last administered on 11/22/18at 07:49; Admin Dose 3 ML; Start 11/13/18 at 21:00 Vancomycin HCl (Vanco Iv Per Pharmacy) VANCOMYCIN PER PHARMA... PER PROTOCOL XX ; Start 11/17/18 at 13:00 Vancomycin HCl 1.25 gm/Sodium Chloride 250 ml @ 83.333 mls/ hr Q12H IVPB Last administered on 11/22/18at 15:36; Admin Dose 83.333 MLS/HR; Start 11/18/18 at 03:00 Cefepime HCl 50 ml @ 100 mls/hr Q12 IVPB Last administered on 11/22/18 09:19; Admin Dose 100 MLS/HR; Start 11/18/18 at 21:00 Carvedilol (Coreg) 12.5 mg BID GTB Last administered on 11/22/18 09:19; Admin Dose 12.5 MG; Start 11/19/18 at 21:00 Miscellaneous Information (*Rx Drug Level Order Reminder*) VANCO TROUGH 11/23 @ 1,400 1400 ONCE XX ; Start 11/23/18 at 14:00; Stop 11/23/18 at 14:01 SETH AVENDANO Nov 22, 2018 16:31
--- NOTE | 2018-11-22 16:45 | CONS ---
Assessment/Plan Assessment/Plan Hospital Course (Demo Recall) - intermittent fever, probably due to bacteremia, HCAP and intra-parenchymal hemorrhage - improving - bacteremia due to MRSA on 11/15/2018; repeat blood cx on 11/17/2018 were negative - possible HCAP, however, given the polymicrobial growth of his resp culture, all bacteria may be colonizers of the airway: providencia, proteus, pseudomonas, group B strep, klebsiella; repeat trach asp cx 11/17/2018 grew pseudomonas and proteus - Hx of CVA. 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 [id number]-[id number] lobes; stable large subacute R frontal temporal parietal intraparenchymal hemorrhage, plus encephalomalacia/gliosis; stable moderate to severe ventriculomegaly; moderate b/l occipital horn acute intraventricular hemorrhage; chronic R paracentral pontine infarction; small chronic R cerebellar infarctions; L temporal lobe with associated encephalomalacia/gliosis within this region as well as laminar necrosis; moderate chronic microvascular ischemic changes; basilar dolichoectasia; extensive bilateral mastoid air cell effusions - aerococci in urine culture on 11/14/2018, probable colonization - chronic hypoxic resp failure - h/o tracheostomy placement - unresponsive state due to extensive CVA - diarrhea - on senna Recommendations - continue IV vancomycin (re-start 11/17/2018) for bacteremia due to MRSA; plan for 14 days - complete course of IV cefepime (11/18/2018-) today for possible HCAP. Pt completed pip/tazo (11/15/2018-11/17/2018) Management discussed with BRADLEY Thompson and with Dr. Kiran Consultation Date/Type/Reason Admit Date/Time November 11, 2018 at 22:51 Initial Consult Date 11/15/18 Type of Consult Infectious Disease Requesting Provider: NIA DOMINGO MD Date/Time of Note DATE: 11/22/18 TIME: 16:44 24 HR Interval Summary Free Text/Dictation No acute issues per d/w RN. Remains afebrile. FiO2 28% Subjective hx not possible: pt non-verbal Exam/Review of Systems Exam Vitals Vital Signs Date Temp Pulse Resp B/P (MAP) Pulse Ox O2 O2 Flow FiO2 Time Delivery Rate 11/22/18 72 16:01 11/22/18 98.3 20 120/60 94 Trach 15:52 (80) Collar 11/22/18 5.0 28 08:00 Intake and Output 11/21/18 11/21/18 11/22/18 1515:00 23:00 07:00 IntakeIntake Total 1240 ml 1140 ml 1190 ml OutputOutput Total 200 ml 1300 ml 1100 ml BalanceBalance 1040 ml -160 ml 90 ml Exam Constitutional: well developed, non-verbal, frail, obese Psych: other (unable to assess) Head: other (craniectomy scar well healed, but site is full) Eyes: nl conjunctiva, nl lids ENMT: nl external ears & nose, nl nasal mucosa & septum, other (Unable to exami ne OP) Neck: other (trach is midline and connected to T-piece) Respiratory: diminished breath sounds (mild coarse breath sounds); No wheezing Cardiovascular: regular rate and rhythm, nl pulses Gastrointestinal: soft, non-tender, other (G-tube intact; Rectal tube with liquid brown stool at proximal part of tubing); No distended Genitourinary - Male: nl penis, nl scrotum, other (Nelson catheter intact with clear carlos manuel urine) Musculoskeletal: nl extremities to inspection Extremities: No edema Neurological: unresponsive Skin: nl turgor, other (multiple tattoos) Results Result Diagram: 11/21/18 0545 11/19/18 0427 Results 24hrs Laboratory Tests Test 11/21/18 17:29 11/21/18 22:59 11/22/18 01:52 11/22/18 05:42 Bedside Glucose 174 166 187 159 Test 11/22/18 09:13 Bedside Glucose 183 Imaging Imaging CXR 11/16/2018: Improved bilateral lung infiltrates.. Medications Medication Current Medications Ondansetron HCl (Zofran Inj) 4 mg Q6H PRN IV NAUSEA AND/OR VOMITING; Start 11/11/18 at 23:00 Acetaminophen (Tylenol Liquid) 650 mg Q6H PRN PO FEVER Last administered on 11/20/18at 03:38; Admin Dose 650 MG; Start 11/11/18 at 23:00 Morphine Sulfate (morphine) 2 mg Q4H PRN IV PAIN LEVEL 7-10 Last administered on 11/12/18at 05:26; Admin Dose 2 MG; Start 11/11/18 at 23:00 Insulin Aspart (Novolog Insulin Pen) NOVOLOG *MODERATE* ALGORI... Q4 SC Last administered on 11/22/18at 13:28; Admin Dose 4 UNIT; Start 11/12/18 at 05:00 Miscellaneous Information 1 ea NOTE XX ; Start 11/12/18 at 03:00 Glucose (Glutose) 15 gm Q15M PRN PO DECREASED GLUCOSE; Start 11/12/18 at 03:00 Glucose (Glutose) 22.5 gm Q15M PRN PO DECREASED GLUCOSE; Start 11/12/18 at 03:00 Dextrose (D50w Syringe) 25 ml Q15M PRN IV DECREASED GLUCOSE; Start 11/12/18 at 03:00 Dextrose (D50w Syringe) 50 ml Q15M PRN IV DECREASED GLUCOSE; Start 11/12/18 at 03:00 Glucagon (Glucagen) 1 mg Q15M PRN IM DECREASED GLUCOSE; Start 11/12/18 at 03:00 Glucose (Glutose) 15 gm Q15M PRN BUCCAL DECREASED GLUCOSE; Start 11/12/18 at 03:00 Acetaminophen (Tylenol Tab) 650 mg Q4H PRN GTB MILD PAIN LEVEL 1-3 Last administered on 11/17/18at 05:29; Admin Dose 650 MG; Start 11/12/18 at 09:30 Acetylcysteine (Mucomyst) 3 ml BID RESP THERAPY NEB Last administered on 11/22/18at 08:04; Admin Dose 3 ML; Start 11/12/18 at 10:00 Atorvastatin Calcium (Lipitor) 80 mg QHS GTB Last administered on 11/21/18at 21:02; Admin Dose 80 MG; Start 11/12/18 at 21:00 Bisacodyl (Dulcolax Supp) 10 mg Q24H PRN [place] CONSTIPATION; Start 11/12/18 at 09:30 Furosemide (Lasix) 20 mg DAILY GTB Last administered on 11/22/18 09:19; Admin Dose 20 MG; Start 11/12/18 at 09:30 Hydralazine HCl (Apresoline) 25 mg Q6 GTB Last administered on 11/22/18at 13:16; Admin Dose 25 MG; Start 11/12/18 at 12:00 Lansoprazole (Prevacid) 30 mg BID@0600,1800 GTB Last administered on 11/22/18at 05:32; Admin Dose 30 MG; Start 11/12/18 at 18:00 Magnesium Hydroxide (Milk Of Mag) 30 ml Q24H GTB Last administered on 11/22/18 09:21; Admin Dose 30 ML; Start 11/12/18 at 09:30 Senna (Senokot) 2 tab BID GTB Last administered on 11/22/18 09:19; Admin Dose 2 TAB; Start 11/12/18 at 09:30 Sucralfate (Carafate Susp) 1 gm QID GTB Last administered on 11/22/18 13:16; Admin Dose 1 GM; Start 11/12/18 at 13:00 Valproate Sodium (Depakene Liquid Cup) 500 mg Q8 GTB Last administered on 11/22/18 13:16; Admin Dose 500 MG; Start 11/12/18 at 10:00 Insulin Human NPH (Humulin N) 28 unit Q8 SC Last administered on 11/22/18 13:25; Admin Dose 28 UNIT; Start 11/12/18 at 10:00 Sodium Biphosphate/ Sodium Phosphate (Fleet Enema) 133 ml DAILY PRN [place]ST[place]; Start 11/12/18 at 10:00 Lisinopril (Zestril) 10 mg DAILY GTB Last administered on 11/22/18 09:19; Admin Dose 10 MG; Start 11/14/18 at 09:00 Albuterol/ Ipratropium (Duoneb) 3 ml Q6H RESP THERAPY PRN HHN SHORTNESS OF BREATH Last administered on 11/22/18 07:49; Admin Dose 3 ML; Start 11/13/18 at 21:00 Vancomycin HCl (Vanco Iv Per Pharmacy) VANCOMYCIN PER PHARMA... PER PROTOCOL XX ; Start 11/17/18 at 13:00 Vancomycin HCl 1.25 gm/Sodium Chloride 250 ml @ 83.333 mls/ hr Q12H IVPB Last administered on 11/22/18 15:36; Admin Dose 83.333 MLS/HR; Start 11/18/18 at 03:00 Cefepime HCl 50 ml @ 100 mls/hr Q12 IVPB Last administered on 11/22/18 09:19; Admin Dose 100 MLS/HR; Start 11/18/18 at 21:00 Carvedilol (Coreg) 12.5 mg BID GTB Last administered on 11/22/18at 09:19; Admin Dose 12.5 MG; Start 11/19/18 at 21:00 Miscellaneous Information (*Rx Drug Level Order Reminder*) VANCO TROUGH 11/23 @ 1,400 1400 ONCE XX ; Start 11/23/18 at 14:00; Stop 11/23/18 at 14:01 BISHNU ACOSTA NP Nov 22, 2018 16:45
[2018-11-22] MEDS: ATORVASTATIN 80 MG TAB GTB SCH (20:57)
[2018-11-23] VITALS (12 sets, daily range): BP systolic 108–155; BP diastolic 61–73; PULSE 68–80; RESP 18–22
[2018-11-23] MEDS: INSULIN ASPART [NOVOLOG] 3 ML PEN SC SCH ×6 (01:09→21:46)
[2018-11-23] MEDS: VANCOMYCIN HCL 1.25 GM in SOD CHLORIDE 0.9% 250 ML IVPB SCH ×2 (02:07→14:58)
[2018-11-23] MEDS: VALPROIC ACID LIQUID CUP 250 MG/5 ML CUP GTB SCH ×3 (05:43→22:17)
[2018-11-23] MEDS: LANSOPRAZOLE 30 MG CAP GTB SCH ×2 (06:09→18:38)
[2018-11-23] MEDS: NPH, HUMAN INSULIN ISOPHANE 3ML VIAL SC SCH ×3 (06:15→22:58)
[2018-11-23] MEDS: ACETYLCYSTEINE 20% 4 ML VIAL NEB SCH ×2 (08:37→19:50)
[2018-11-23] MEDS: ALBUTEROL/IPRATROPIUM (NEB) 3 ML AMP HHN PRN ×2 (08:37→19:50)
[2018-11-23] MEDS: MAGNESIUM HYDROXIDE 30ML CUP GTB SCH (09:41)
[2018-11-23] MEDS: SUCRALFATE (100 MG/ML) 10ML CUP GTB SCH ×4 (09:42→21:25)
[2018-11-23] MEDS: SENNA TAB GTB SCH ×2 (09:42→21:26)
[2018-11-23] MEDS: LISINOPRIL 5 MG TAB GTB SCH (09:46)
[2018-11-23] MEDS: FUROSEMIDE 20 MG TAB GTB SCH (09:46)
--- NOTE | 2018-11-23 09:55 | CONS ---
Consult Date/Type/Reason Admit Date/Time November 11, 2018 at 22:51 Initial Consult Date 11/15/18 Type of Consultation: Pulm Requesting Provider: NIA DOMINGO MD Date/Time of Note DATE: 11/23/18 TIME: 09:53 Subjective NO acute events - pt stable - no CP - in good fluid status - will monitor clinically now - no new SVT noted. ROS: No fever, no chills, no nausea, no vomiting, no diarrhea/constipation - per nurse Objective Vitals Vital Signs Date Temp Pulse Resp B/P (MAP) Pulse Ox O2 O2 Flow FiO2 Time Delivery Rate 11/23/18 96 5.0 28 08:40 11/23/18 75 20 Aerosol 08:38 T Tube 11/23/18 98.4 123/61 07:46 (81) Intake and Output 11/22/18 11/22/18 11/23/18 1515:00 23:00 07:00 IntakeIntake Total 50 ml 1390 ml 1570 ml OutputOutput Total 1300 ml 500 ml BalanceBalance 50 ml 90 ml 1070 ml Exam General: WN/WD/NAD, AOx 0 HEENT: Unicetric/atraumatic/EOMI (does not follow commands) NECK: trach Lymph: no lymphadenopathy HEART: regular with no S3, II/ systolic murmur at apex LUNGS: Coarse sounds ABD: soft, NT, ND, +BS : Intact Neuro: contracted SKIN: chronic changes EXT: trace edema Results/Medications Result Diagram: 11/23/18 0725 11/23/18 0725 Results 24 hrs Laboratory Tests Test 11/22/18 13:14 11/22/18 17:52 11/22/18 21:17 11/22/18 22:00 Bedside Glucose 188 187 187 176 Test 11/23/18 00:57 11/23/18 04:29 11/23/18 05:49 11/23/18 07:25 Bedside Glucose 152 161 153 White Blood Count 9.8 Red Blood Count 3.55 L Hemoglobin 9.8 L Hematocrit 30.1 L Mean Corpuscular Volume 84.8 Mean Corpuscular 27.6 L Hemoglobin Mean Corpuscular 32.6 Hemoglobin Concent Red Cell Distribution 15.1 H Width Platelet Count 256 # Mean Platelet Volume 11.3 H Immature Granulocytes % 0.500 H Neutrophils % 61.6 Lymphocytes % 13.6 L Monocytes % 8.5 Eosinophils % 15.2 H Basophils % 0.6 Nucleated Red Blood 0.0 Cells % Immature Granulocytes # 0.050 H Neutrophils # 6.0 Lymphocytes # 1.3 Monocytes # 0.8 Eosinophils # 1.5 H Basophils # 0.1 Nucleated Red Blood 0.0 Cells # Sodium Level 125 L Potassium Level 4.4 Chloride Level 93 L Carbon Dioxide Level 28 Anion Gap 4 L Blood Urea Nitrogen 20 Creatinine 0.47 L Est Glomerular Filtrat > 60 Rate mL/min Glucose Level 169 Calcium Level 8.0 L Home Meds Reported Medications Acetylcysteine* (Mucomyst*) 4 Ml Soln, 3 ML NEB BID, EA 06/30/18 Na Phos,M-B/Na Phos,Di-Ba (Fleet Enema Extra) 230 Ml Enema, 230 ML RC NEEDED, ENEMA 06/30/18 Bisacodyl* (Bisacodyl*) 10 Mg Supp, 10 MG MN Q24H PRN for NEEDED, SUPP 06/30/18 Magnesium Hydroxide* (Milk Of Magnesia*) 400 Mg/5 Ml Oral.susp, 30 ML GTB Q24H for CONSTIPATION, ML 06/30/18 Sennosides* (Senna Lax*) 8.6 Mg Tablet, 2 TAB GTB BID, TAB 06/30/18 Insulin Aspart* (Novolog Insulin Pen*) 100 Unit/Ml Soln, 0 SC .SLIDING SCALE AC, EA IF BS 0-120=0 UNITS,120-150=0 UNIT, 151-200=1 UNIT, 201-250=2 UNIT, 251-300=3 UNIT, 301-350=4 UNIT, 351-400=5 UNIT, ABOVE 400=6 UNIT AND CALL MD. 06/30/18 Glucagon HCl (Glucagon HCl) 1 Mg Vial, 1 MG IJ NEEDED, VIAL IF BS BELOW 60 06/30/18 Insulin NPH Human Isophane (Humulin N) 100 Unit/1 Ml Vial, 28 UNIT SQ Q8H, VIAL 06/30/18 Hydrocodone/Acetaminophen ([place] 5-325 Tablet) 1 Each Tablet, 1 EACH GTB Q6H, TAB NEEDED FOR PAIN 06/30/18 Acetaminophen* (Tylenol*) 500 Mg Tab, 1000 MG GTB Q4H PRN for PAIN 4-6, TAB 06/30/18 Acetaminophen* (Tylenol*) 325 Mg Tablet, 650 MG GTB PRN PRN for TRACH TUBE CH CHRIS, TAB 06/30/18 Acetaminophen* (Tylenol*) 325 Mg Tablet, 650 MG GTB Q4H PRN for MILD PAIN LEVEL 1-3, TAB AND FEVER 100 AND ABOVE 06/30/18 Amino Acids/Protein Hydrolys (PRO-STAT LIQUID) 30 Ml Liquid.pkt, 30 ML GTB DAILY SUGAR FREE 06/30/18 Cran/Vitc/Mannose/Inulin/Brom (Uti-Stat Liquid) 3,875 Mg/30 Ml Liquid, 30 ML GTB DAILY 06/30/18 Hydralazine Hcl* (Hydralazine Hcl*) 25 Mg Tab, 25 MG GTB Q6H, #60 TAB 06/30/18 Furosemide* (Lasix* Liq) 40 Mg/5 Ml Cup, 20 MG GTB DAILY, EA 06/30/18 Carvedilol* (Carvedilol*) 3.125 Mg Tablet, 3.125 MG GTB BID, #60 TAB 06/30/18 Atorvastatin* (Atorvastatin*) 80 Mg Tablet, 80 MG GTB QHS, #30 TAB 06/30/18 Aspirin* (Aspirin* EC) 81 Mg Tablet.dr, 162 MG GTB DAILY, TAB 06/30/18 Valproic Acid* (Valproic Acid* Liq) 250 Mg/5 Ml Syrup, 10 ML GTB Q8H, ML 06/30/18 Sucralfate* (Carafate*) 1 Gm/10 Ml Susp, 1 GM GTB QID, EA 06/30/18 Lisinopril* (Lisinopril*) 5 Mg Tablet, 5 MG GTB DAILY, #30 TAB 06/30/18 Lansoprazole* (Lansoprazole*) 30 Mg Capsule.dr, 30 MG GTB BID, CAP 06/30/18 Lactobacillus Acidophilus (Acidophilus Lactobacillus) 1 Each Capsule, 1 EACH GTB BID, CAP 06/30/18 Medications Current Medications Ondansetron HCl (Zofran Inj) 4 mg Q6H PRN IV NAUSEA AND/OR VOMITING; Start 11/11/18 at 23:00 Acetaminophen (Tylenol Liquid) 650 mg Q6H PRN PO FEVER Last administered on 11/20/18at 03:38; Admin Dose 650 MG; Start 11/11/18 at 23:00 Morphine Sulfate (morphine) 2 mg Q4H PRN IV PAIN LEVEL 7-10 Last administered on 11/12/18 05:26; Admin Dose 2 MG; Start 11/11/18 at 23:00 Insulin Aspart (Novolog Insulin Pen) NOVOLOG *MODERATE* ALGORI... Q4 SC Last administered on 11/23/18 05:08; Admin Dose 2 UNIT; Start 11/12/18 at 05:00 Miscellaneous Information 1 ea NOTE XX ; Start 11/12/18 at 03:00 Glucose (Glutose) 15 gm Q15M PRN PO DECREASED GLUCOSE; Start 11/12/18 at 03:00 Glucose (Glutose) 22.5 gm Q15M PRN PO DECREASED GLUCOSE; Start 11/12/18 at 03:00 Dextrose (D50w Syringe) 25 ml Q15M PRN IV DECREASED GLUCOSE; Start 11/12/18 at 03:00 Dextrose (D50w Syringe) 50 ml Q15M PRN IV DECREASED GLUCOSE; Start 11/12/18 at 03:00 Glucagon (Glucagen) 1 mg Q15M PRN IM DECREASED GLUCOSE; Start 11/12/18 at 03:00 Glucose (Glutose) 15 gm Q15M PRN BUCCAL DECREASED GLUCOSE; Start 11/12/18 at 03:00 Acetaminophen (Tylenol Tab) 650 mg Q4H PRN GTB MILD PAIN LEVEL 1-3 Last administered on 11/17/18 05:29; Admin Dose 650 MG; Start 11/12/18 at 09:30 Acetylcysteine (Mucomyst) 3 ml BID RESP THERAPY NEB Last administered on 11/23/18 08:37; Admin Dose 3 ML; Start 11/12/18 at 10:00 Atorvastatin Calcium (Lipitor) 80 mg QHS GTB Last administered on 11/22/18 20:57; Admin Dose 80 MG; Start 11/12/18 at 21:00 Bisacodyl (Dulcolax Supp) 10 mg Q24H PRN [place] CONSTIPATION; Start 11/12/18 at 09:30 Furosemide (Lasix) 20 mg DAILY GTB Last administered on 11/23/18 09:46; Admin D ose 20 MG; Start 11/12/18 at 09:30 Hydralazine HCl (Apresoline) 25 mg Q6 GTB Last administered on 11/23/18 05:44; Admin Dose 25 MG; Start 11/12/18 at 12:00 Lansoprazole (Prevacid) 30 mg BID@0600,1800 GTB Last administered on 11/23/18 06:09; Admin Dose 30 MG; Start 11/12/18 at 18:00 Magnesium Hydroxide (Milk Of Mag) 30 ml Q24H GTB Last administered on 11/23/18 09:41; Admin Dose 30 ML; Start 11/12/18 at 09:30 Senna (Senokot) 2 tab BID GTB Last administered on 11/23/18 09:42; Admin Dose 2 TAB; Start 11/12/18 at 09:30 Sucralfate (Carafate Susp) 1 gm QID GTB Last administered on 11/23/18 09:42; Admin Dose 1 GM; Start 11/12/18 at 13:00 Valproate Sodium (Depakene Liquid Cup) 500 mg Q8 GTB Last administered on 11/23/18 05:43; Admin Dose 500 MG; Start 11/12/18 at 10:00 Insulin Human NPH (Humulin N) 28 unit Q8 SC Last administered on 11/23/18 06:15; Admin Dose 28 UNIT; Start 11/12/18 at 10:00 Sodium Biphosphate/ Sodium Phosphate (Fleet Enema) 133 ml DAILY PRN [place] CONSTIPATION; Start 11/12/18 at 10:00 Lisinopril (Zestril) 10 mg DAILY GTB Last administered on 11/23/18 09:46; Admin Dose 10 MG; Start 11/14/18 at 09:00 Albuterol/ Ipratropium (Duoneb) 3 ml Q6H RESP THERAPY PRN HHN SHORTNESS OF BREATH Last administered on 11/23/18 08:37; Admin Dose 3 ML; Start 11/13/18 at 21:00 Vancomycin HCl (Vanco Iv Per Pharmacy) VANCOMYCIN PER PHARMA... PER PROTOCOL XX ; Start 11/17/18 at 13:00; Stop 12/01/18 at 12:59 Vancomycin HCl 1.25 gm/Sodium Chloride 250 ml @ 83.333 mls/ hr Q12H IVPB Last administered on 6/4/19at 02:07; Admin Dose 83.333 MLS/HR; Start 11/18/18 at 03:00; Stop 12/01/18 at 12:59 Carvedilol (Coreg) 12.5 mg BID GTB Last administered on 11/23/18at 09:46; Admin Dose 12.5 MG; Start 11/19/18 at 21:00 Miscellaneous Information (*Rx Drug Level Order Reminder*) VANCO TROUGH 11/23 @ 1,400 1400 ONCE XX ; Start 11/23/18 at 14:00; Stop 11/23/18 at 14:01 Assessment/Plan Hospital Course (Demo Recall) 1. Abnormal electrocardiogram, assess for acute coronary syndrome.-neg trop x 3/EF 30-35% - r/o Mi - no active CP now. [place] follow - NO VT noted. NO ectopy on tele. No new SVT noted, except for short run of a. tach. 2. Cardiomyopathy with decreased left ventricular ejection fraction. EF 30-35% by echo this admit - con't to keep euvolemic as tolerated. Not an ICD candidate. Stable VS. 3. Congestive heart failure, systolic, chronic - remove fluid as tolerated. 4. Hypertension, under reasonable control in the setting of acute hemorrhage. 5. Intracranial hemorrhage - no signs of cognitive improvement now. Unchanged. 6. Chronic encephalopathy- unchanged. On vent. Con't resp Rx. 7. Prior craniectomy. 8. History of prior PTCA and stent placement. No further interventions planned. Meds on board. Treated. 9. Anemia. 10. Tachycardia-S tach today ? etiology, autonomic dysfunction - HR < 100 now. Now in sinus. 11.fevers - on anti-Bx. KYLEIGH MENDENHALL MD Nov 23, 2018 09:55
--- NOTE | 2018-11-23 12:39 | CONS ---
Consult Date/Type/Reason Admit Date/Time November 11, 2018 at 22:51 Initial Consult Date 11/14/18 Type of Consult Pulmonary Requesting Provider: NIA DOMINGO MD Date/Time of Note DATE: 11/23/18 TIME: 12:39 Subjective Patient appears comfortable this morning no respiratory distress. Objective Vital Signs Date Temp Pulse Resp B/P (MAP) Pulse Ox O2 O2 Flow FiO2 Time Delivery Rate 11/23/18 98.5 72 20 108/61 99 Trach 11:55 (77) Collar 11/23/18 5.0 28 08:40 Intake and Output 11/22/18 11/22/18 11/23/18 1515:00 23:00 07:00 IntakeIntake Total 50 ml 1390 ml 1570 ml OutputOutput Total 1300 ml 500 ml BalanceBalance 50 ml 90 ml 1070 ml Exam GENERAL: Chronically ill-appearing gentleman on cool aerosol VITAL SIGNS: per chart NECK: Supple. No JVD or lymphadenopathy. CARDIAC EXAM: S1, S2. No added sounds or murmurs. CHEST: Diminished air entry bilaterally ABDOMEN: Soft, nontender. No guarding or rebound. EXTREMITIES: No cyanosis, clubbing or edema. NEUROLOGIC: Unable to assess Vent Setting Fraction of Inspired Oxygen pe: 28 Results/Medications Result Diagram: 11/23/18 0725 11/23/18 0725 Results 24 hrs Laboratory Tests Test 11/22/18 13:14 11/22/18 17:52 11/22/18 21:17 11/22/18 22:00 Bedside Glucose 188 187 187 176 Test 11/23/18 00:57 11/23/18 04:29 11/23/18 05:49 11/23/18 07:25 Bedside Glucose 152 161 153 White Blood Count 9.8 Red Blood Count 3.55 L Hemoglobin 9.8 L Hematocrit 30.1 L Mean Corpuscular Volume 84.8 Mean Corpuscular 27.6 L Hemoglobin Mean Corpuscular 32.6 Hemoglobin Concent Red Cell Distribution 15.1 H Width Platelet Count 256 # Mean Platelet Volume 11.3 H Immature Granulocytes % 0.500 H Neutrophils % 61.6 Lymphocytes % 13.6 L Monocytes % 8.5 Eosinophils % 15.2 H Basophils % 0.6 Nucleated Red Blood 0.0 Cells % Immature Granulocytes # 0.050 H Neutrophils # 6.0 Lymphocytes # 1.3 Monocytes # 0.8 Eosinophils # 1.5 H Basophils # 0.1 Nucleated Red Blood 0.0 Cells # Sodium Level 125 L Potassium Level 4.4 Chloride Level 93 L Carbon Dioxide Level 28 Anion Gap 4 L Blood Urea Nitrogen 20 Creatinine 0.47 L Est Glomerular Filtrat > 60 Rate mL/min Glucose Level 169 Calcium Level 8.0 L Test 11/23/18 09:51 Bedside Glucose 157 Medications Current Medications Ondansetron HCl (Zofran Inj) 4 mg Q6H PRN IV NAUSEA AND/OR VOMITING; Start 11/11/18 at 23:00 Acetaminophen (Tylenol Liquid) 650 mg Q6H PRN PO FEVER Last administered on 11/20/18at 03:38; Admin Dose 650 MG; Start 11/11/18 at 23:00 Morphine Sulfate (morphine) 2 mg Q4H PRN IV PAIN LEVEL 7-10 Last administered on 11/12/18at 05:26; Admin Dose 2 MG; Start 11/11/18 at 23:00 Insulin Aspart (Novolog Insulin Pen) NOVOLOG *MODERATE* ALGORI... Q4 SC Last administered on 11/23/18at 12:30; Admin Dose 2 UNIT; Start 11/12/18 at 05:00 Miscellaneous Information 1 ea NOTE XX ; Start 11/12/18 at 03:00 Glucose (Glutose) 15 gm Q15M PRN PO DECREASED GLUCOSE; Start 11/12/18 at 03:00 Glucose (Glutose) 22.5 gm Q15M PRN PO DECREASED GLUCOSE; Start 11/12/18 at 03:00 Dextrose (D50w Syringe) 25 ml Q15M PRN IV DECREASED GLUCOSE; Start 11/12/18 at 03:00 Dextrose (D50w Syringe) 50 ml Q15M PRN IV DECREASED GLUCOSE; Start 11/12/18 at 03:00 Glucagon (Glucagen) 1 mg Q15M PRN IM DECREASED GLUCOSE; Start 11/12/18 at 03:00 Glucose (Glutose) 15 gm Q15M PRN BUCCAL DECREASED GLUCOSE; Start 11/12/18 at 03:00 Acetaminophen (Tylenol Tab) 650 mg Q4H PRN GTB MILD PAIN LEVEL 1-3 Last administered on 11/17/18at 05:29; Admin Dose 650 MG; Start 11/12/18 at 09:30 Acetylcysteine (Mucomyst) 3 ml BID RESP THERAPY NEB Last administered on 11/23/18 08:37; Admin Dose 3 ML; Start 11/12/18 at 10:00 Atorvastatin Calcium (Lipitor) 80 mg QHS GTB Last administered on 11/22/18 20:57; Admin Dose 80 MG; Start 11/12/18 at 21:00 Bisacodyl (Dulcolax Supp) 10 mg Q24H PRN [place] CONSTIPATION; Start 11/12/18 at 09:30 Furosemide (Lasix) 20 mg DAILY GTB Last administered on 11/23/18 09:46; Admin Dose 20 MG; Start 11/12/18 at 09:30 Hydralazine HCl (Apresoline) 25 mg Q6 GTB Last administered on 11/23/18 05:44; Admin Dose 25 MG; Start 11/12/18 at 12:00 Lansoprazole (Prevacid) 30 mg BID@0600,1800 GTB Last administered on 11/23/18 0 6:09; Admin Dose 30 MG; Start 11/12/18 at 18:00 Magnesium Hydroxide (Milk Of Mag) 30 ml Q24H GTB Last administered on 11/23/18 09:41; Admin Dose 30 ML; Start 11/12/18 at 09:30 Senna (Senokot) 2 tab BID GTB Last administered on 11/23/18 09:42; Admin Dose 2 TAB; Start 11/12/18 at 09:30 Sucralfate (Carafate Susp) 1 gm QID GTB Last administered on 11/23/18 09:42; Admin Dose 1 GM; Start 11/12/18 at 13:00 Valproate Sodium (Depakene Liquid Cup) 500 mg Q8 GTB Last administered on 11/23/18 05:43; Admin Dose 500 MG; Start 11/12/18 at 10:00 Insulin Human NPH (Humulin N) 28 unit Q8 SC Last administered on 11/23/18 06:15; Admin Dose 28 UNIT; Start 11/12/18 at 10:00 Sodium Biphosphate/ Sodium Phosphate (Fleet Enema) 133 ml DAILY PRN [place] CONSTIPATION; Start 11/12/18 at 10:00 Lisinopril (Zestril) 10 mg DAILY GTB Last administered on 6/4/19at 09:46; Admin Dose 10 MG; Start 11/14/18 at 09:00 Albuterol/ Ipratropium (Duoneb) 3 ml Q6H RESP THERAPY PRN HHN SHORTNESS OF BREATH Last administered on 11/23/18at 08:37; Admin Dose 3 ML; Start 11/13/18 at 21:00 Vancomycin HCl (Vanco Iv Per Pharmacy) VANCOMYCIN PER PHARMA... PER PROTOCOL XX ; Start 11/17/18 at 13:00; Stop 12/01/18 at 12:59 Vancomycin HCl 1.25 gm/Sodium Chloride 250 ml @ 83.333 mls/ hr Q12H IVPB Last administered on 11/23/18at 02:07; Admin Dose 83.333 MLS/HR; Start 11/18/18 at 03:00; Stop 12/01/18 at 12:59 Carvedilol (Coreg) 12.5 mg BID GTB Last administered on 11/23/18at 09:46; Admin Dose 12.5 MG; Start 11/19/18 at 21:00 Miscellaneous Information (*Rx Drug Level Order Reminder*) VANCO TROUGH 11/23 @ 1,400 1400 ONCE XX ; Start 11/23/18 at 14:00; Stop 11/23/18 at 14:01 Assessment/Plan Hospital Course (Demo Recall) IMP: 1. Chronic respiratory failure with tracheostomy and T-tube 2. Acute on chronic cerebral hemorrhages. 3. Encephalopathy secondary to above 4. History of seizure disorder, MRI pending. 5. Healthcare associated pneumonia 6. Hyponatremia RECS: 1. Continue cool aerosol via t-tube 2. Antibiotics as per ID 3. Tube feeding as tolerated 4. Renal recommendations LULU GARCIA MD, [facility] Nov 23, 2018 12:39
--- NOTE | 2018-11-23 15:18 | CONS ---
Assessment/Plan Assessment/Plan Hospital Course (Demo Recall) - intermittent fever, probably due to bacteremia, HCAP and intra-parenchymal hemorrhage - improving - bacteremia due to MRSA on 11/15/2018; repeat blood cx on 11/17/2018 were negative - possible HCAP, however, given the polymicrobial growth of his resp culture, all bacteria may be colonizers of the airway: providencia, proteus, pseudomonas, group B strep, klebsiella; repeat trach asp cx 11/17/2018 grew pseudomonas and proteus - Hx of CVA. 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 smirypn-rsegnqei-fetbygaq lobes; stable large subacute R frontal temporal parietal intraparenchymal hemorrhage, plus encephalomalacia/gliosis; stable moderate to severe ventriculomegaly; moderate b/l occipital horn acute intraventricular hemorrhage; chronic R paracentral pontine infarction; small chronic R cerebellar infarctions; L temporal lobe with associated encephalomalacia/gliosis within this region as well as laminar necrosis; moderate chronic microvascular ischemic changes; basilar dolichoectasia; extensive bilateral mastoid air cell effusions - aerococci in urine culture on 11/14/2018, probable colonization - chronic hypoxic resp failure - h/o tracheostomy placement - unresponsive state due to extensive CVA - diarrhea - on senna - completed course of IV cefepime (11/18/2018-) today for possible HCAP. Pt completed pip/tazo (11/15/2018-11/17/2018) Recommendations - continue IV vancomycin (re-start 11/17/2018) for bacteremia due to MRSA; plan for 14 days Consultation Date/Type/Reason Admit Date/Time November 11, 2018 at 22:51 Initial Consult Date 11/15/18 Type of Consult ID Requesting Provider: NIA DOMINGO MD Date/Time of Note DATE: 11/23/18 TIME: 15:17 Exam/Review of Systems Exam Vitals Vital Signs Date Temp Pulse Resp B/P (MAP) Pulse Ox O2 O2 Flow FiO2 Time Delivery Rate 11/23/18 74 12:40 11/23/18 98.5 20 108/61 99 Trach 11:55 (77) Collar 11/23/18 5.0 28 08:40 Intake and Output 11/22/18 11/22/18 11/23/18 1515:00 23:00 07:00 IntakeIntake Total 50 ml 1390 ml 1570 ml OutputOutput Total 1300 ml 500 ml BalanceBalance 50 ml 90 ml 1070 ml Results Result Diagram: 11/23/18 0725 11/23/18724 Results 24hrs Laboratory Tests Test 11/22/18 17:52 11/22/18 21:17 11/22/18 22:00 11/23/18 00:57 Bedside Glucose 187 187 176 152 Test 11/23/18 04:29 11/23/18 05:49 11/23/18 07:25 11/23/18 09:51 Bedside Glucose 161 153 157 White Blood Count 9.8 Red Blood Count 3.55 L Hemoglobin 9.8 L Hematocrit 30.1 L Mean Corpuscular Volume 84.8 Mean Corpuscular 27.6 L Hemoglobin Mean Corpuscular 32.6 Hemoglobin Concent Red Cell Distribution 15.1 H Width Platelet Count 256 # Mean Platelet Volume 11.3 H Immature Granulocytes % 0.500 H Neutrophils % 61.6 Lymphocytes % 13.6 L Monocytes % 8.5 Eosinophils % 15.2 H Basophils % 0.6 Nucleated Red Blood 0.0 Cells % Immature Granulocytes # 0.050 H Neutrophils # 6.0 Lymphocytes # 1.3 Monocytes # 0.8 Eosinophils # 1.5 H Basophils # 0.1 Nucleated Red Blood 0.0 Cells # Sodium Level 125 L Potassium Level 4.4 Chloride Level 93 L Carbon Dioxide Level 28 Anion Gap 4 L Blood Urea Nitrogen 20 Creatinine 0.47 L Est Glomerular Filtrat > 60 Rate mL/min Glucose Level 169 Calcium Level 8.0 L Test 11/23/18 12:23 11/23/18 13:44 11/23/18 14:27 Bedside Glucose 171 144 Vancomycin Level Trough 13.7 Medications Medication Current Medications Ondansetron HCl (Zofran Inj) 4 mg Q6H PRN IV NAUSEA AND/OR VOMITING; Start 11/11/18 at 23:00 Acetaminophen (Tylenol Liquid) 650 mg Q6H PRN PO FEVER Last administered on 11/20/18at 03:38; Admin Dose 650 MG; Start 11/11/18 at 23:00 Morphine Sulfate (morphine) 2 mg Q4H PRN IV PAIN LEVEL 7-10 Last administered on 11/12/18at 05:26; Admin Dose 2 MG; Start 11/11/18 at 23:00 Insulin Aspart (Novolog Insulin Pen) NOVOLOG *MODERATE* ALGORI... Q4 SC Last administered on 11/23/18 12:30; Admin Dose 2 UNIT; Start 11/12/18 at 05:00 Miscellaneous Information 1 ea NOTE XX ; Start 11/12/18 at 03:00 Glucose (Glutose) 15 gm Q15M PRN PO DECREASED GLUCOSE; Start 11/12/18 at 03:00 Glucose (Glutose) 22.5 gm Q15M PRN PO DECREASED GLUCOSE; Start 11/12/18 at 03:00 Dextrose (D50w Syringe) 25 ml Q15M PRN IV DECREASED GLUCOSE; Start 11/12/18 at 03:00 Dextrose (D50w Syringe) 50 ml Q15M PRN IV DECREASED GLUCOSE; Start 11/12/18 at 03:00 Glucagon (Glucagen) 1 mg Q15M PRN IM DECREASED GLUCOSE; Start 11/12/18 at 03:00 Glucose (Glutose) 15 gm Q15M PRN BUCCAL DECREASED GLUCOSE; Start 11/12/18 at 03:00 Acetaminophen (Tylenol Tab) 650 mg Q4H PRN GTB MILD PAIN LEVEL 1-3 Last administered on 11/17/18at 05:29; Admin Dose 650 MG; Start 11/12/18 at 09:30 Acetylcysteine (Mucomyst) 3 ml BID RESP THERAPY NEB Last administered on 11/23/18at 08:37; Admin Dose 3 ML; Start 11/12/18 at 10:00 Atorvastatin Calcium (Lipitor) 80 mg QHS GTB Last administered on 11/22/18 20:57; Admin Dose 80 MG; Start 11/12/18 at 21:00 Bisacodyl (Dulcolax Supp) 10 mg Q24H PRN [place] CONSTIPATION; Start 11/12/18 at 09:30 Furosemide (Lasix) 20 mg DAILY GTB Last administered on 11/23/18 09:46; Admin Dose 20 MG; Start 11/12/18 at 09:30 Hydralazine HCl (Apresoline) 25 mg Q6 GTB Last administered on 11/23/18at 12:59; Admin Dose 25 MG; Start 11/12/18 at 12:00 Lansoprazole (Prevacid) 30 mg BID@0600,1800 GTB Last administered on 11/23/18 06:09; Admin Dose 30 MG; Start 11/12/18 at 18:00 Magnesium Hydroxide (Milk Of Mag) 30 ml Q24H GTB Last administered on 11/23/18 09:41; Admin Dose 30 ML; Start 11/12/18 at 09:30 Senna (Senokot) 2 tab BID GTB Last administered on 11/23/18 09:42; Admin Dose 2 TAB; Start 11/12/18 at 09:30 Sucralfate (Carafate Susp) 1 gm QID GTB Last administered on 11/23/18 12:54; Admin Dose 1 GM; Start 11/12/18 at 13:00 Valproate Sodium (Depakene Liquid Cup) 500 mg Q8 GTB Last administered on 14:11; Admin Dose 500 MG; Start 11/12/18 at 10:00 Insulin Human NPH (Humulin N) 28 unit Q8 SC Last administered on 11/23/18 14:29; Admin Dose 28 UNIT; Start 11/12/18 at 10:00 Sodium Biphosphate/ Sodium Phosphate (Fleet Enema) 133 ml DAILY PRN [place] CONSTIPATION; Start 11/12/18 at 10:00 Lisinopril (Zestril) 10 mg DAILY GTB Last administered on 11/23/18 09:46; Admin Dose 10 MG; Start 11/14/18 at 09:00 Albuterol/ Ipratropium (Duoneb) 3 ml Q6H RESP THERAPY PRN HHN SHORTNESS OF BREATH Last administered on 11/23/18 08:37; Admin Dose 3 ML; Start 11/13/18 at 21:00 Vancomycin HCl (Vanco Iv Per Pharmacy) VANCOMYCIN PER PHARMA... PER PROTOCOL XX ; Start 11/17/18 at 13:00; Stop 12/01/18 at 12:59 Vancomycin HCl 1.25 gm/Sodium Chloride 250 ml @ 83.333 mls/ hr Q12H IVPB Last administered on 11/23/18 14:58; Admin Dose 83.333 MLS/HR; Start 11/18/18 at 03:00; Stop 12/01/18 at 12:59 Carvedilol (Coreg) 12.5 mg BID GTB Last administered on 11/23/18 09:46; Admin Dose 12.5 MG; Start 11/19/18 at 21:00 MOLINA BONILLA MD Nov 23, 2018 15:18
--- NOTE | 2018-11-23 19:06 | PN ---
Date/Time of Note Date/Time of Note DATE: 11/23/18 TIME: 19:04 Assessment/Plan VTE Prophylaxis Risk score (from [facility])>0 risk: 3 SCD applied (from [facility]): Yes Pharmacological prophylaxis: NA/contraindicated Pharm contraindication: bleeding Lines/Catheters IV Catheter Type (from [facility]): Saline Lock Urinary Cath still in place: Yes Reason Cath still needed: urinary retention Assessment/Plan Hospital Course Hyponatremia, diarrhea, patient continues on vancomycin for bacteremia. Assessment/Plan -Intracranial hemorrhage, Dr. Espana is following in neurosurgery consultation. Family does not want any aggressive treatment. -Sepsis with fever and leukocytosis most likely secondary to HCAP. Continue antibiotics per ID. Dr. Kiran is following in infection disease consultation. -MRSA bacteremia, continue Vanco until 12/01/18. -Recent history of right hemicraniectomy, details are not available. Records requested. -Chronic respiratory failure with tracheostomy, patient is currently on T-tube. -Healthcare associated pneumonia, continue antibiotics. -Coronary artery disease, status post PTCA with stent placement -Ischemic cardiomyopathy -Diabetes -Dysphagia with G-tube -Dyslipidemia -Obesity with BMI of 35.3 -DNR status Further recommendations depends on clinical course. Plan of care discussed with Dr. Cortez. Result Diagram: 11/23/18 0725 11/23/18 0725 Results 24hrs Laboratory Tests Test 11/22/18 21:17 11/22/18 22:00 11/23/18 00:57 11/23/18 04:29 Bedside Glucose 187 176 152 161 Test 11/23/18 05:49 11/23/18 07:25 11/23/18 09:51 11/23/18 12:23 Bedside Glucose 153 157 171 White Blood Count 9.8 Red Blood Count 3.55 L Hemoglobin 9.8 L Hematocrit 30.1 L Mean Corpuscular Volume 84.8 Mean Corpuscular 27.6 L Hemoglobin Mean Corpuscular 32.6 Hemoglobin Concent Red Cell Distribution 15.1 H Width Platelet Count 256 # Mean Platelet Volume 11.3 H Immature Granulocytes % 0.500 H Neutrophils % 61.6 Lymphocytes % 13.6 L Monocytes % 8.5 Eosinophils % 15.2 H Basophils % 0.6 Nucleated Red Blood 0.0 Cells % Immature Granulocytes # 0.050 H Neutrophils # 6.0 Lymphocytes # 1.3 Monocytes # 0.8 Eosinophils # 1.5 H Basophils # 0.1 Nucleated Red Blood 0.0 Cells # Sodium Level 125 L Potassium Level 4.4 Chloride Level 93 L Carbon Dioxide Level 28 Anion Gap 4 L Blood Urea Nitrogen 20 Creatinine 0.47 L Est Glomerular Filtrat > 60 Rate mL/min Glucose Level 169 Calcium Level 8.0 L Test 11/23/18 13:44 11/23/18 14:27 Vancomycin Level Trough 13.7 Bedside Glucose 144 Exam/Review of Systems Exam Vitals Vital Signs Date Temp Pulse Resp B/P (MAP) Pulse Ox O2 O2 Flow FiO2 Time Delivery Rate 11/23/18 75 22 98 Aerosol 5.0 28 18:07 T Tube 11/23/18 98.6 113/61 15:41 (78) Intake and Output 11/22/18 11/22/18 11/23/18 1515:00 23:00 07:00 IntakeIntake Total 50 ml 1390 ml 1570 ml OutputOutput Total 1300 ml 500 ml BalanceBalance 50 ml 90 ml 1070 ml Exam Constitutional: non-verbal, frail Head: other (Status post right craniectomy) Neck: other (Trach) Respiratory: diminished breath sounds Cardiovascular: regular rate and rhythm Gastrointestinal: soft, non-tender, other (G-tube) Musculoskeletal: muscle weakness Extremities: normal pulses Neurological: other (Noncommunicative) Skin: nl turgor Results Results 24hrs Laboratory Tests Test 11/22/18 21:17 11/22/18 22:00 11/23/18 00:57 11/23/18 04:29 Bedside Glucose 187 176 152 161 Test 11/23/18 05:49 11/23/18 07:25 11/23/18 09:51 11/23/18 12:23 Bedside Glucose 153 157 171 White Blood Count 9.8 Red Blood Count 3.55 L Hemoglobin 9.8 L Hematocrit 30.1 L Mean Corpuscular Volume 84.8 Mean Corpuscular 27.6 L Hemoglobin Mean Corpuscular 32.6 Hemoglobin Concent Red Cell Distribution 15.1 H Width Platelet Count 256 # Mean Platelet Volume 11.3 H Immature Granulocytes % 0.500 H Neutrophils % 61.6 Lymphocytes % 13.6 L Monocytes % 8.5 Eosinophils % 15.2 H Basophils % 0.6 Nucleated Red Blood 0.0 Cells % Immature Granulocytes # 0.050 H Neutrophils # 6.0 Lymphocytes # 1.3 Monocytes # 0.8 Eosinophils # 1.5 H Basophils # 0.1 Nucleated Red Blood 0.0 Cells # Sodium Level 125 L Potassium Level 4.4 Chloride Level 93 L Carbon Dioxide Level 28 Anion Gap 4 L Blood Urea Nitrogen 20 Creatinine 0.47 L Est Glomerular Filtrat > 60 Rate mL/min Glucose Level 169 Calcium Level 8.0 L Test 11/23/18 13:44 11/23/18 14:27 Vancomycin Level Trough 13.7 Bedside Glucose 144 Medications Medication Current Medications Ondansetron HCl (Zofran Inj) 4 mg Q6H PRN IV NAUSEA AND/OR VOMITING; Start 11/11/18 at 23:00 Acetaminophen (Tylenol Liquid) 650 mg Q6H PRN PO FEVER Last administered on 11/20/18at 03:38; Admin Dose 650 MG; Start 11/11/18 at 23:00 Morphine Sulfate (morphine) 2 mg Q4H PRN IV PAIN LEVEL 7-10 Last administered on 11/12/18at 05:26; Admin Dose 2 MG; Start 11/11/18 at 23:00 Insulin Aspart (Novolog Insulin Pen) NOVOLOG *MODERATE* ALGORI... Q4 SC Last administered on 11/23/18at 18:49; Admin Dose 2 UNIT; Start 11/12/18 at 05:00 Miscellaneous Information 1 ea NOTE XX ; Start 11/12/18 at 03:00 Glucose (Glutose) 15 gm Q15M PRN PO DECREASED GLUCOSE; Start 11/12/18 at 03:00 Glucose (Glutose) 22.5 gm Q15M PRN PO DECREASED GLUCOSE; Start 11/12/18 at 03:00 Dextrose (D50w Syringe) 25 ml Q15M PRN IV DECREASED GLUCOSE; Start 11/12/18 at 03:00 Dextrose (D50w Syringe) 50 ml Q15M PRN IV DECREASED GLUCOSE; Start 11/12/18 at 03:00 Glucagon (Glucagen) 1 mg Q15M PRN IM DECREASED GLUCOSE; Start 11/12/18 at 03:00 Glucose (Glutose) 15 gm Q15M PRN BUCCAL DECREASED GLUCOSE; Start 11/12/18 at 03 :00 Acetaminophen (Tylenol Tab) 650 mg Q4H PRN GTB MILD PAIN LEVEL 1-3 Last administered on 11/17/18at 05:29; Admin Dose 650 MG; Start 11/12/18 at 09:30 Acetylcysteine (Mucomyst) 3 ml BID RESP THERAPY NEB Last administered on 11/23/18 08:37; Admin Dose 3 ML; Start 11/12/18 at 10:00 Atorvastatin Calcium (Lipitor) 80 mg QHS GTB Last administered on 11/22/18 20:57; Admin Dose 80 MG; Start 11/12/18 at 21:00 Bisacodyl (Dulcolax Supp) 10 mg Q24H PRN [place] CONSTIPATION; Start 11/12/18 at 09:30 Furosemide (Lasix) 20 mg DAILY GTB Last administered on 11/23/18 09:46; Admin Dose 20 MG; Start 11/12/18 at 09:30 Hydralazine HCl (Apresoline) 25 mg Q6 GTB Last administered on 11/23/18 18:28; Admin Dose 25 MG; Start 11/12/18 at 12:00 Lansoprazole (Prevacid) 30 mg BID@0600,1800 GTB Last administered on 11/23/18 18:38; Admin Dose 30 MG; Start 11/12/18 at 18:00 Magnesium Hydroxide (Milk Of Mag) 30 ml Q24H GTB Last administered on 11/23/18 09:41; Admin Dose 30 ML; Start 11/12/18 at 09:30 Senna (Senokot) 2 tab BID GTB Last administered on 11/23/18 09:42; Admin Dose 2 TAB; Start 11/12/18 at 09:30 Sucralfate (Carafate Susp) 1 gm QID GTB Last administered on 11/23/18 18:27; Admin Dose 1 GM; Start 11/12/18 at 13:00 Valproate Sodium (Depakene Liquid Cup) 500 mg Q8 GTB Last administered on 11/23/18 14:11; Admin Dose 500 MG; Start 11/12/18 at 10:00 Insulin Human NPH (Humulin N) 28 unit Q8 SC Last administered on 11/23/18 14:29; Admin Dose 28 UNIT; Start 11/12/18 at 10:00 Sodium Biphosphate/ Sodium Phosphate (Fleet Enema) 133 ml DAILY PRN [place] CONSTIPATION; Start 11/12/18 at 10:00 Lisinopril (Zestril) 10 mg DAILY GTB Last administered on 11/23/18at 09:46; Admin Dose 10 MG; Start 11/14/18 at 09:00 Albuterol/ Ipratropium (Duoneb) 3 ml Q6H RESP THERAPY PRN HHN SHORTNESS OF BREATH Last administered on 11/23/18 08:37; Admin Dose 3 ML; Start 11/13/18 at 21:00 Vancomycin HCl (Vanco Iv Per Pharmacy) VANCOMYCIN PER PHARMA... PER PROTOCOL XX ; Start 11/17/18 at 13:00; Stop 12/01/18 at 12:59 Vancomycin HCl 1.25 gm/Sodium Chloride 250 ml @ 83.333 mls/ hr Q12H IVPB Last administered on 11/23/18at 14:58; Admin Dose 83.333 MLS/HR; Start 11/18/18 at 03:00; Stop 12/01/18 at 12:59 Carvedilol (Coreg) 12.5 mg BID GTB Last administered on 11/23/18at 09:46; Admin Dose 12.5 MG; Start 11/19/18 at 21:00 SETH AVENDANO Nov 23, 2018 19:06
[2018-11-23] MEDS: ATORVASTATIN 80 MG TAB GTB SCH (21:25)
[2018-11-24] VITALS (12 sets, daily range): BP systolic 121–146; BP diastolic 61–77; PULSE 68–87; RESP 20–22
[2018-11-24] MEDS: INSULIN ASPART [NOVOLOG] 3 ML PEN SC SCH ×6 (01:14→21:00)
[2018-11-24] MEDS: VANCOMYCIN HCL 1.25 GM in SOD CHLORIDE 0.9% 250 ML IVPB SCH ×2 (02:54→15:29)
[2018-11-24] MEDS: LANSOPRAZOLE 30 MG CAP GTB SCH ×2 (06:11→17:48)
[2018-11-24] MEDS: VALPROIC ACID LIQUID CUP 250 MG/5 ML CUP GTB SCH ×3 (06:11→21:53)
[2018-11-24] MEDS: NPH, HUMAN INSULIN ISOPHANE 3ML VIAL SC SCH ×3 (06:56→21:55)
[2018-11-24] MEDS: ALBUTEROL/IPRATROPIUM (NEB) 3 ML AMP HHN PRN ×2 (08:57→21:13)
[2018-11-24] MEDS: ACETYLCYSTEINE 20% 4 ML VIAL NEB SCH ×2 (08:57→21:13)
[2018-11-24] MEDS: MAGNESIUM HYDROXIDE 30ML CUP GTB SCH (09:26)
[2018-11-24] MEDS: SUCRALFATE (100 MG/ML) 10ML CUP GTB SCH ×4 (09:26→20:09)
[2018-11-24] MEDS: SENNA TAB GTB SCH ×2 (09:27→20:09)
[2018-11-24] MEDS: FUROSEMIDE 20 MG TAB GTB SCH (09:28)
[2018-11-24] MEDS: LISINOPRIL 5 MG TAB GTB SCH (09:28)
--- NOTE | 2018-11-24 10:55 | CONS ---
Consult Date/Type/Reason Admit Date/Time November 11, 2018 at 22:51 Initial Consult Date 11/14/18 Type of Consult Pulmonary Requesting Provider: NIA DOMINGO MD Date/Time of Note DATE: 11/24/18 TIME: 10:54 Subjective Still with moderate secretions requiring high flow O2. Objective Vital Signs Date Temp Pulse Resp B/P (MAP) Pulse Ox O2 O2 Flow FiO2 Time Delivery Rate 11/24/18 74 97 Aerosol 5.0 28 08:57 T Tube 11/24/18 98.5 22 121/64 07:43 (83) Intake and Output 11/23/18 11/23/18 11/24/18 1515:00 23:00 07:00 IntakeIntake Total 680 ml 1170 ml 1520 ml OutputOutput Total 650 ml 450 ml BalanceBalance 680 ml 520 ml 1070 ml Exam GENERAL: Chronically ill-appearing gentleman on cool aerosol VITAL SIGNS: per chart NECK: Supple. No JVD or lymphadenopathy. CARDIAC EXAM: S1, S2. No added sounds or murmurs. CHEST: Diminished air entry bilaterally ABDOMEN: Soft, nontender. No guarding or rebound. EXTREMITIES: No cyanosis, clubbing or edema. NEUROLOGIC: Unable to assess Vent Setting Fraction of Inspired Oxygen pe: 28 Results/Medications Result Diagram: 11/23/18 0725 11/24/18 0620 Results 24 hrs Laboratory Tests Test 11/23/18 12:23 11/23/18 13:44 11/23/18 14:27 11/23/18 18:43 Bedside Glucose 171 144 152 Vancomycin Level Trough 13.7 Test 11/23/18 21:22 11/23/18 22:15 11/24/18 01:10 11/24/18 04:58 Bedside Glucose 150 154 162 135 Test 11/24/18 06:08 11/24/18 06:20 11/24/18 09:21 Bedside Glucose 141 138 Sodium Level 127 L Potassium Level 4.5 Chloride Level 94 L Carbon Dioxide Level 30 Anion Gap 3 L Blood Urea Nitrogen 19 Creatinine 0.44 L Est Glomerular Filtrat > 60 Rate mL/min Glucose Level 145 Calcium Level 8.0 L Medications Current Medications Ondansetron HCl (Zofran Inj) 4 mg Q6H PRN IV NAUSEA AND/OR VOMITING; Start 11/11/18 at 23:00 Acetaminophen (Tylenol Liquid) 650 mg Q6H PRN PO FEVER Last administered on 11/20/18at 03:38; Admin Dose 650 MG; Start 11/11/18 at 23:00 Morphine Sulfate (morphine) 2 mg Q4H PRN IV PAIN LEVEL 7-10 Last administered on 11/12/18at 05:26; Admin Dose 2 MG; Start 11/11/18 at 23:00 Insulin Aspart (Novolog Insulin Pen) NOVOLOG *MODERATE* ALGORI... Q4 SC Last administered on 11/24/18at 01:14; Admin Dose 2 UNIT; Start 11/12/18 at 05:00 Miscellaneous Information 1 ea NOTE XX ; Start 11/12/18 at 03:00 Glucose (Glutose) 15 gm Q15M PRN PO DECREASED GLUCOSE; Start 11/12/18 at 03:00 Glucose (Glutose) 22.5 gm Q15M PRN PO DECREASED GLUCOSE; Start 11/12/18 at 03:00 Dextrose (D50w Syringe) 25 ml Q15M PRN IV DECREASED GLUCOSE; Start 11/12/18 at 03:00 Dextrose (D50w Syringe) 50 ml Q15M PRN IV DECREASED GLUCOSE; Start 11/12/18 at 03:00 Glucagon (Glucagen) 1 mg Q15M PRN IM DECREASED GLUCOSE; Start 11/12/18 at 03:00 Glucose (Glutose) 15 gm Q15M PRN BUCCAL DECREASED GLUCOSE; Start 11/12/18 at 03:00 Acetaminophen (Tylenol Tab) 650 mg Q4H PRN GTB MILD PAIN LEVEL 1-3 Last admini stered on 11/17/18at 05:29; Admin Dose 650 MG; Start 11/12/18 at 09:30 Acetylcysteine (Mucomyst) 3 ml BID RESP THERAPY NEB Last administered on 11/24/18 08:57; Admin Dose 3 ML; Start 11/12/18 at 10:00 Atorvastatin Calcium (Lipitor) 80 mg QHS GTB Last administered on 11/23/18 21:25; Admin Dose 80 MG; Start 11/12/18 at 21:00 Bisacodyl (Dulcolax Supp) 10 mg Q24H PRN [place] CONSTIPATION; Start 11/12/18 at 09:30 Furosemide (Lasix) 20 mg DAILY GTB Last administered on 11/24/18at 09:28; Admin Dose 20 MG; Start 11/12/18 at 09:30 Hydralazine HCl (Apresoline) 25 mg Q6 GTB Last administered on 11/24/18 06:14; Admin Dose 25 MG; Start 11/12/18 at 12:00 Lansoprazole (Prevacid) 30 mg BID@0600,1800 GTB Last administered on 11/24/18 06:11; Admin Dose 30 MG; Start 11/12/18 at 18:00 Magnesium Hydroxide (Milk Of Mag) 30 ml Q24H GTB Last administered on 11/24/18 09:26; Admin Dose 30 ML; Start 11/12/18 at 09:30 Senna (Senokot) 2 tab BID GTB Last administered on 11/24/18 09:27; Admin Dose 2 TAB; Start 11/12/18 at 09:30 Sucralfate (Carafate Susp) 1 gm QID GTB Last administered on 11/24/18 09:26; Admin Dose 1 GM; Start 11/12/18 at 13:00 Valproate Sodium (Depakene Liquid Cup) 500 mg Q8 GTB Last administered on 11/24/18 06:11; Admin Dose 500 MG; Start 11/12/18 at 10:00 Insulin Human NPH (Humulin N) 28 unit Q8 SC Last administered on 11/24/18 06:56; Admin Dose 28 UNIT; Start 11/12/18 at 10:00 Sodium Biphosphate/ Sodium Phosphate (Fleet Enema) 133 ml DAILY PRN [place] CONSTIPATION; Start 11/12/18 at 10:00 Lisinopril (Zestril) 10 mg DAILY GTB Last administered on 11/24/18 09:28; Admin Dose 10 MG; Start 11/14/18 at 09:00 Albuterol/ Ipratropium (Duoneb) 3 ml Q6H RESP THERAPY PRN HHN SHORTNESS OF SRIDEVI TH Last administered on 11/24/18 08:57; Admin Dose 3 ML; Start 11/13/18 at 21:00 Vancomycin HCl (Vanco Iv Per Pharmacy) VANCOMYCIN PER PHARMA... PER PROTOCOL XX ; Start 11/17/18 at 13:00; Stop 12/01/18 at 12:59 Vancomycin HCl 1.25 gm/Sodium Chloride 250 ml @ 83.333 mls/ hr Q12H IVPB Last administered on 11/24/18at 02:54; Admin Dose 83.333 MLS/HR; Start 11/18/18 at 03:00; Stop 12/01/18 at 12:59 Carvedilol (Coreg) 12.5 mg BID GTB Last administered on 11/24/18at 09:27; Admin Dose 12.5 MG; Start 11/19/18 at 21:00 Assessment/Plan Hospital Course (Demo Recall) IMP: 1. Chronic respiratory failure with tracheostomy and T-tube 2. Acute on chronic cerebral hemorrhages. 3. Encephalopathy secondary to above 4. History of seizure disorder, MRI pending. 5. Healthcare associated pneumonia 6. Hyponatremia RECS: 1. Continue cool aerosol via t-tube 2. Antibiotics as per ID 3. Tube feeding as tolerated 4. Renal recommendations Transferred to [facility] from pulmonary standpoint LULU GARCIA MD, [facility] Nov 24, 2018 10:55
--- NOTE | 2018-11-24 11:47 | CONS ---
Assessment/Plan Assessment/Plan Hospital Course (Demo Recall) - Intermittent fever, probably due to bacteremia, HCAP and intra-parenchymal hemorrhage - improving - Bacteremia due to MRSA on 11/15/2018; repeat blood cx on 11/17/2018 were negative - Possible HCAP, however, given the polymicrobial growth of his resp culture, all bacteria may be colonizers of the airway: providencia, proteus, pseudomonas, group B strep, klebsiella; repeat trach asp cx 11/17/2018 grew pseudomonas and proteus - Hx of CVA. 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 [id number] lobes; stable large subacute R frontal temporal parietal intraparenchymal hemorrhage, plus encephalomalacia/gliosis; stable moderate to severe ventriculomegaly; moderate b/l occipital horn acute intraventricular hemorrhage; chronic R paracentral pontine infarction; small chronic R cerebellar infarctions; L temporal lobe with associated encephalomalacia/gliosis within this region as well as laminar necrosis; moderate chronic microvascular ischemic changes; basilar dolichoectasia; extensive bilateral mastoid air cell effusions - Aerococci in urine culture on 11/14/2018, probable colonization - Chronic hypoxic resp failure - H/o tracheostomy placement - Unresponsive state due to extensive CVA - Diarrhea - on senna - s/p course of IV cefepime (11/18/2018-11/23/18) today for possible HCAP; completed pip/tazo (11/15/2018-11/17/2018) Recommendations - continue IV vancomycin (re-start 11/17/2018) for bacteremia due to MRSA; plan for 14 days Plan was d/w Dr. Kiran via [employer] messaging. Consultation Date/Type/Reason Admit Date/Time November 11, 2018 at 22:51 Initial Consult Date 11/15/18 Type of Consult ID Requesting Provider: NIA DOMINGO MD Date/Time of Note DATE: 11/24/18 TIME: 11:44 24 HR Interval Summary Free Text/Dictation Pt has remained afebrile, no acute issues were reported by nursing. Subjective hx not possible: pt non-verbal Exam/Review of Systems Exam Vitals Vital Signs Date Temp Pulse Resp B/P (MAP) Pulse Ox O2 O2 Flow FiO2 Time Delivery Rate 11/24/18 98.3 70 20 126/68 96 11:03 (87) 11/24/18 Aerosol 5.0 28 08:57 T Tube Allergies Coded Allergies No Known Drug Allergies (Verified Allergy, Mild, 06/30/18) Intake and Output 11/23/18 11/23/18 11/24/18 1515:00 23:00 07:00 IntakeIntake Total 680 ml 1170 ml 1520 ml OutputOutput Total 650 ml 450 ml BalanceBalance 680 ml 520 ml 1070 ml Constitutional: well developed, non-verbal, obese, other (chronically debillitated ) Psych: other (MORENA) Head: other (well healed craniectomy scar, site protrudes outward) Eyes: nl conjunctiva, nl lids ENMT: nl external ears & nose, nl nasal mucosa & septum, other (unable to ex amine OP) Neck: other (trach midline, site c/d/i, on T piece ) Respiratory: normal air movement, diminished breath sounds, respirations (regular); No wheezing Cardiovascular: regular rate and rhythm, nl pulses Gastrointestinal: soft, non-tender, other (GT site is c/d/i); No distended, No tender Genitourinary - Male: nl penis, nl scrotum, other (f/c draining yellow urine ) Musculoskeletal: nl extremities to inspection Extremities: normal pulses; No edema Neurological: unresponsive (withdraws to tactile stim) Skin: nl turgor, other (+tattoos ); No rash or lesions Results Result Diagram: 11/23/18 0725 11/24/18 0620 Results 24hrs Laboratory Tests Test 11/23/18 12:23 11/23/18 13:44 11/23/18 14:27 11/23/18 18:43 Bedside Glucose 171 144 152 Vancomycin Level Trough 13.7 Test 11/23/18 21:22 11/23/18 22:15 11/24/18 01:10 11/24/18 04:58 Bedside Glucose 150 154 162 135 Test 11/24/18 06:08 11/24/18 06:20 11/24/18 09:21 Bedside Glucose 141 138 Sodium Level 127 L Potassium Level 4.5 Chloride Level 94 L Carbon Dioxide Level 30 Anion Gap 3 L Blood Urea Nitrogen 19 Creatinine 0.44 L Est Glomerular Filtrat > 60 Rate mL/min Glucose Level 145 Calcium Level 8.0 L Medications Medication Current Medications Ondansetron HCl (Zofran Inj) 4 mg Q6H PRN IV NAUSEA AND/OR VOMITING; Start 11/11/18 at 23:00 Acetaminophen (Tylenol Liquid) 650 mg Q6H PRN PO FEVER Last administered on 11/20/18at 03:38; Admin Dose 650 MG; Start 11/11/18 at 23:00 Morphine Sulfate (morphine) 2 mg Q4H PRN IV PAIN LEVEL 7-10 Last administered on 11/12/18at 05:26; Admin Dose 2 MG; Start 11/11/18 at 23:00 Insulin Aspart (Novolog Insulin Pen) NOVOLOG *MODERATE* [place]I... Q4 SC Last administered on 11/24/18at 01:14; Admin Dose 2 UNIT; Start 11/12/18 at 05:00 Miscellaneous Information 1 ea NOTE XX ; Start 11/12/18 at 03:00 Glucose (Glutose) 15 gm Q15M PRN PO DECREASED GLUCOSE; Start 11/12/18 at 03:00 Glucose (Glutose) 22.5 gm Q15M PRN PO DECREASED GLUCOSE; Start 11/12/18 at 03:00 Dextrose (D50w Syringe) 25 ml Q15M PRN IV DECREASED GLUCOSE; Start 11/12/18 at 03:00 Dextrose (D50w Syringe) 50 ml Q15M PRN IV DECREASED GLUCOSE; Start 11/12/18 at 03:00 Glucagon (Glucagen) 1 mg Q15M PRN IM DECREASED GLUCOSE; Start 11/12/18 at 03:00 Glucose (Glutose) 15 gm Q15M PRN BUCCAL DECREASED GLUCOSE; Start 11/12/18 at 03:00 Acetaminophen (Tylenol Tab) 650 mg Q4H PRN GTB MILD PAIN LEVEL 1-3 Last administered on 11/17/18at 05:29; Admin Dose 650 MG; Start 11/12/18 at 09:30 Acetylcysteine (Mucomyst) 3 ml BID RESP THERAPY NEB Last administered on 11/24/18at 08:57; Admin Dose 3 ML; Start 11/12/18 at 10:00 Atorvastatin Calcium (Lipitor) 80 mg QHS GTB Last administered on 11/23/18at 21:25; Admin Dose 80 MG; Start 11/12/18 at 21:00 Bisacodyl (Dulcolax Supp) 10 mg Q24H PRN [place] CONSTIPATION; Start 11/12/18 at 09:30 Furosemide (Lasix) 20 mg DAILY GTB Last administered on 11/24/18 09:28; Admin Dose 20 MG; Start 11/12/18 at 09:30 Hydralazine HCl (Apresoline) 25 mg Q6 GTB Last administered on 11/24/18 06:14; Admin Dose 25 MG; Start 11/12/18 at 12:00 Lansoprazole (Prevacid) 30 mg BID@0600,1800 GTB Last administered on 11/24/18 06:11; Admin Dose 30 MG; Start 11/12/18 at 18:00 Magnesium Hydroxide (Milk Of Mag) 30 ml Q24H GTB Last administered on 11/24/18 09:26; Admin Dose 30 ML; Start 11/12/18 at 09:30 Senna (Senokot) 2 tab BID GTB Last administered on 11/24/18 09:27; Admin Dose 2 TAB; Start 11/12/18 at 09:30 Sucralfate (Carafate Susp) 1 gm QID GTB Last administered on 11/24/18 09:26; Admin Dose 1 GM; Start 11/12/18 at 13:00 Valproate Sodium (Depakene Liquid Cup) 500 mg Q8 GTB Last administered on 11/24/18 06:11; Admin Dose 500 MG; Start 11/12/18 at 10:00 Insulin Human NPH (Humulin N) 28 unit Q8 SC Last administered on 11/24/18 06:56; Admin Dose 28 UNIT; Start 11/12/18 at 10:00 Sodium Biphosphate/ Sodium Phosphate (Fleet Enema) 133 ml DAILY PRN [place] CONSTIPATION; Start 11/12/18 at 10:00 Lisinopril (Zestril) 10 mg DAILY GTB Last administered on 11/24/18 09:28; Admin Dose 10 MG; Start 11/14/18 at 09:00 Albuterol/ Ipratropium (Duoneb) 3 ml Q6H RESP THERAPY PRN HHN SHORTNESS OF BREATH Last administered on 11/24/18 08:57; Admin Dose 3 ML; Start 11/13/18 at 21:00 Vancomycin HCl (Vanco Iv Per Pharmacy) VANCOMYCIN PER PHARMA... PER PROTOCOL XX ; Start 11/17/18 at 13:00; Stop 12/01/18 at 12:59 Vancomycin HCl 1.25 gm/Sodium Chloride 250 ml @ 83.333 mls/ hr Q12H IVPB Last administered on 11/24/18at 02:54; Admin Dose 83.333 MLS/HR; Start 11/18/18 at 03:00; Stop 12/01/18 at 12:59 Carvedilol (Coreg) 12.5 mg BID GTB Last administered on 11/24/18at 09:27; Admin Dose 12.5 MG; Start 11/19/18 at 21:00 LENNIE LAM NP Nov 24, 2018 11:47
--- NOTE | 2018-11-24 14:43 | CONS ---
Assessment/Plan Assessment/Plan Hospital Course (Demo Recall) IMPRESSION: 1. Abnormal electrocardiogram, assess for acute coronary syndrome.-neg trop x 3/EF 30-35% 2. Cardiomyopathy with decreased left ventricular ejection fraction. EF 30-35% by echo this admit 3. Congestive heart failure, systolic, chronic. 4. Hypertension, under reasonable control in the setting of acute hemorrhage. 5. Intracranial hemorrhage. 6. Chronic encephalopathy. 7. Prior craniectomy. 8. History of prior PTCA and stent placement. 9. Anemia. 10. Tachycardia-S tach today ? etiology, autonomic dysfunction 11.fevers-defervesced 12. SVT-overnight at 160-170 regular, ? AVNRT Recc: -Now on tele -continue hydralazine/ACEI/coreg -Continue daily lasix and follow volume status closely -Continue statin -ongoing NRSG eval -Rx fevers -Continue abx's and f/u cx data -Now DNR Consultation Date/Type/Reason Admit Date/Time November 11, 2018 at 22:51 Initial Consult Date 11/12/18 Type of Consult Cardiology Reason for Consultation CHF Requesting Provider: NIA DOMINGO MD Date/Time of Note DATE: 11/24/18 TIME: 14:41 Exam/Review of Systems Vital Signs Vitals Vital Signs Date Temp Pulse Resp B/P (MAP) Pulse Ox O2 O2 Flow FiO2 Time Delivery Rate 11/24/18 81 12:08 11/24/18 98.3 20 126/68 96 11:03 (87) 11/24/18 Aerosol 5.0 28 08:57 T Tube Intake and Output 11/23/18 11/23/18 11/24/18 1515:00 23:00 07:00 IntakeIntake Total 680 ml 1170 ml 1520 ml OutputOutput Total 650 ml 450 ml BalanceBalance 680 ml 520 ml 1070 ml Exam Exam Review of Systems: CONSTITUTIONAL: No fevers, chills. PULMONARY: No sob CARDIOVASCULAR: No chest pain/palpitations GASTROINTESTINAL: No nausea/vomiting. GENITOURINARY: No hematuria/dysuria. MUSCULOSKELETAL: No myagias/arthalgias. PSYCHIATRIC: The patient denies depression. NEUROLOGIC:encephalopathic Constitutional: other (nonmresponsive) ENMT: mucosa pink and moist Neck: supple, jvd (9 cm water) Respiratory: diminished breath sounds (at bases/B) Cardiovascular: regular rate and rhythm Gastrointestinal: soft, non-tender Musculoskeletal: muscle weakness (generalized) Extremities: edema (none) Neurological: unresponsive Labs Result Diagram: 11/23/18 0725 11/24/18 0620 Results 24hrs Laboratory Tests Test 11/23/18 18:43 11/23/18 21:22 11/23/18 22:15 11/24/18 01:10 Bedside Glucose 152 150 154 162 Test 11/24/18 04:58 11/24/18 06:08 11/24/18 06:20 11/24/18 09:21 Bedside Glucose 135 141 138 Sodium Level 127 L Potassium Level 4.5 Chloride Level 94 L Carbon Dioxide Level 30 Anion Gap 3 L Blood Urea Nitrogen 19 Creatinine 0.44 L Est Glomerular Filtrat > 60 Rate mL/min Glucose Level 145 Calcium Level 8.0 L Test 11/24/18 13:11 Bedside Glucose 113 Medications Medications Current Medications Ondansetron HCl (Zofran Inj) 4 mg Q6H PRN IV NAUSEA AND/OR VOMITING; Start 11/11/18 at 23:00 Acetaminophen (Tylenol Liquid) 650 mg Q6H PRN PO FEVER Last administered on 11/20/18at 03:38; Admin Dose 650 MG; Start 11/11/18 at 23:00 Morphine Sulfate (morphine) 2 mg Q4H PRN IV PAIN LEVEL 7-10 Last administered on 11/12/18at 05:26; Admin Dose 2 MG; Start 11/11/18 at 23:00 Insulin Aspart (Novolog Insulin Pen) NOVOLOG *MODERATE* ALGORI... Q4 SC Last administered on 11/24/18at 01:14; Admin Dose 2 UNIT; Start 11/12/18 at 05:00 Miscellaneous Information 1 ea NOTE XX ; Start 11/12/18 at 03:00 Glucose (Glutose) 15 gm Q15M PRN PO DECREASED GLUCOSE; Start 11/12/18 at 03:00 Glucose (Glutose) 22.5 gm Q15M PRN PO DECREASED GLUCOSE; Start 11/12/18 at 03:00 Dextrose (D50w Syringe) 25 ml Q15M PRN IV DECREASED GLUCOSE; Start 11/12/18 at 03:00 Dextrose (D50w Syringe) 50 ml Q15M PRN IV DECREASED GLUCOSE; Start 11/12/18 at 03:00 Glucagon (Glucagen) 1 mg Q15M PRN IM DECREASED GLUCOSE; Start 11/12/18 at 03:00 Glucose (Glutose) 15 gm Q15M PRN BUCCAL DECREASED GLUCOSE; Start 11/12/18 at 03:00 Acetaminophen (Tylenol Tab) 650 mg Q4H PRN GTB MILD PAIN LEVEL 1-3 Last administered on 11/17/18 05:29; Admin Dose 650 MG; Start 11/12/18 at 09:30 Acetylcysteine (Mucomyst) 3 ml BID RESP THERAPY NEB Last administered on 11/24/18 08:57; Admin Dose 3 ML; Start 11/12/18 at 10:00 Atorvastatin Calcium (Lipitor) 80 mg QHS GTB Last administered on 11/23/18 21:25; Admin Dose 80 MG; Start 11/12/18 at 21:00 Bisacodyl (Dulcolax Supp) 10 mg Q24H PRN [place] CONSTIPATION; Start 11/12/18 at 09:30 Furosemide (Lasix) 20 mg DAILY GTB Last administered on 11/24/18 09:28; Admin Dose 20 MG; Start 11/12/18 at 09:30 Hydralazine HCl (Apresoline) 25 mg Q6 GTB Last administered on 11/24/18 13:10; Admin Dose 25 MG; Start 11/12/18 at 12:00 Lansoprazole (Prevacid) 30 mg BID@0600,1800 GTB Last administered on 11/24/18 06:11; Admin Dose 30 MG; Start 11/12/18 at 18:00 Magnesium Hydroxide (Milk Of Mag) 30 ml Q24H GTB Last administered on 11/24/18 09:26; Admin Dose 30 ML; Start 11/12/18 at 09:30 Senna (Senokot) 2 tab BID GTB Last administered on 11/24/18 09:27; Admin Dose 2 TAB; Start 11/12/18 at 09:30 Sucralfate (Carafate Susp) 1 gm QID GTB Last administered on 11/24/18 13:08; Admin Dose 1 GM; Start 11/12/18 at 13:00 Valproate Sodium (Depakene Liquid Cup) 500 mg Q8 GTB Last administered on 11/24/18 14:20; Admin Dose 500 MG; Start 11/12/18 at 10:00 Insulin Human NPH (Humulin N) 28 unit Q8 SC Last administered on 11/24/18at 14:25; Admin Dose 28 UNIT; Start 11/12/18 at 10:00 Sodium Biphosphate/ Sodium Phosphate (Fleet Enema) 133 ml DAILY PRN RI CONSTIPATION; Start 11/12/18 at 10:00 Lisinopril (Zestril) 10 mg DAILY GTB Last administered on 11/24/18 09:28; Admin Dose 10 MG; Start 11/14/18 at 09:00 Albuterol/ Ipratropium (Duoneb) 3 ml Q6H RESP THERAPY PRN HHN SHORTNESS OF BREATH Last administered on 11/24/18 08:57; Admin Dose 3 ML; Start 11/13/18 at 21:00 Vancomycin HCl (Vanco Iv Per Pharmacy) VANCOMYCIN PER PHARMA... PER PROTOCOL XX ; Start 11/17/18 at 13:00; Stop 12/01/18 at 12:59 Vancomycin HCl 1.25 gm/Sodium Chloride 250 ml @ 83.333 mls/ hr Q12H IVPB Last administered on 11/24/18at 02:54; Admin Dose 83.333 MLS/HR; Start 11/18/18 at 03:00; Stop 12/01/18 at 12:59 Carvedilol (Coreg) 12.5 mg BID GTB Last administered on 11/24/18 09:27; Admin Dose 12.5 MG; Start 11/19/18 at 21:00 MAE ROSALES Nov 24, 2018 14:43
[2018-11-24] MEDS ORDERED: SOD CHLORIDE 0.9% 250 ML IV ONE (19:00)
--- NOTE | 2018-11-24 19:01 | PN ---
Date/Time of Note Date/Time of Note DATE: 11/24/18 TIME: 18:58 Assessment/Plan VTE Prophylaxis Risk score (from [facility] [place]0 risk: 6 SCD applied (from [facility] [place] Yes Pharmacological prophylaxis: NA/contraindicated Pharm contraindication: bleeding Lines/Catheters IV [facility] Saline Lock Urinary Cath still in place: Yes Reason Cath still needed: urinary retention Assessment/Plan Hospital Course Patient continues on cool aerosol mist with moderate amount of secretions, hyponatremia, patient continues on vancomycin for bacteremia. Assessment/Plan -Intracranial hemorrhage, Dr. Espana is following in neurosurgery consultation. Family does not want any aggressive treatment. -Sepsis with fever and leukocytosis most likely secondary to HCAP. Continue antibiotics per ID. Dr. Kiran is following in infection disease consultation. -MRSA bacteremia, continue Vanco until 12/01/18. -Recent history of right hemicraniectomy, details are not available. Records requested. -Chronic respiratory failure with tracheostomy, patient is currently on T-tube. -Healthcare associated pneumonia, continue antibiotics. -Coronary artery disease, status post PTCA with stent placement -Ischemic cardiomyopathy -Diabetes -Dysphagia with G-tube -Dyslipidemia -Obesity with BMI of 35.3 -DNR status Further recommendations depends on clinical course. Plan of care discussed with Dr. Cortez. Result Diagram: 11/23/18 0725 11/24/18 0620 Results 24hrs Laboratory Tests Test 11/23/18 21:22 11/23/18 22:15 11/24/18 01:10 11/24/18 04:58 Bedside Glucose 150 154 162 135 Test 11/24/18 06:08 11/24/18 06:20 11/24/18 09:21 11/24/18 13:11 Bedside Glucose 141 138 113 Sodium Level 127 L Potassium Level 4.5 Chloride Level 94 L Carbon Dioxide Level 30 Anion Gap 3 L Blood Urea Nitrogen 19 Creatinine 0.44 L Est Glomerular Filtrat > 60 Rate mL/min Glucose Level 145 Calcium Level 8.0 L Test 11/24/18 17:40 Bedside Glucose 121 Exam/Review of Systems Exam Vitals Vital Signs Date Temp Pulse Resp B/P (MAP) Pulse Ox O2 O2 Flow FiO2 Time Delivery Rate 11/24/18 98 5.0 28 17:04 11/24/18 78 16 Aerosol 17:04 T Tube 11/24/18 98.4 132/70 15:23 (90) Intake and Output 11/23/18 11/23/18 11/24/18 1515:00 23:00 07:00 IntakeIntake Total 680 ml 1170 ml 1520 ml OutputOutput Total 650 ml 450 ml BalanceBalance 680 ml 520 ml 1070 ml Exam Constitutional: non-verbal, frail Head: other (Status post right craniectomy) Neck: other (Trach) Respiratory: diminished breath sounds Cardiovascular: regular rate and rhythm Gastrointestinal: soft, non-tender, other (G-tube) Musculoskeletal: muscle weakness Extremities: normal pulses Neurological: other (Noncommunicative) Skin: nl turgor Results Results 24hrs Laboratory Tests Test 11/23/18 21:22 11/23/18 22:15 11/24/18 01:10 11/24/18 04:58 Bedside Glucose 150 154 162 135 Test 11/24/18 06:08 11/24/18 06:20 11/24/18 09:21 11/24/18 13:11 Bedside Glucose 141 138 113 Sodium Level 127 L Potassium Level 4.5 Chloride Level 94 L Carbon Dioxide Level 30 Anion Gap 3 L Blood Urea Nitrogen 19 Creatinine 0.44 L Est Glomerular Filtrat > 60 Rate mL/min Glucose Level 145 Calcium Level 8.0 L Test 11/24/18 17:40 Bedside Glucose 121 Medications Medication Current Medications Ondansetron HCl (Zofran Inj) 4 mg Q6H PRN IV NAUSEA AND/OR VOMITING; Start 11/11/18 at 23:00 Acetaminophen (Tylenol Liquid) 650 mg Q6H PRN PO FEVER Last administered on 11/20/18at 03:38; Admin Dose 650 MG; Start 11/11/18 at 23:00 Morphine Sulfate (morphine) 2 mg Q4H PRN IV PAIN LEVEL 7-10 Last administered on 11/12/18at 05:26; Admin Dose 2 MG; Start 11/11/18 at 23:00 Insulin Aspart (Novolog Insulin Pen) NOVOLOG *MODERATE* ALGORI... Q4 SC Last administered on 11/24/18at 01:14; Admin Dose 2 UNIT; Start 11/12/18 at 05:00 Miscellaneous Information 1 ea NOTE XX ; Start 11/12/18 at 03:00 Glucose (Glutose) 15 gm Q15M PRN PO DECREASED GLUCOSE; Start 11/12/18 at 03:00 Glucose (Glutose) 22.5 gm Q15M PRN PO DECREASED GLUCOSE; Start 11/12/18 at 03:00 Dextrose (D50w Syringe) 25 ml Q15M PRN IV DECREASED GLUCOSE; Start 11/12/18 at 03:00 Dextrose (D50w Syringe) 50 ml Q15M PRN IV DECREASED GLUCOSE; Start 11/12/18 at 03:00 Glucagon (Glucagen) 1 mg Q15M PRN IM DECREASED GLUCOSE; Start 11/12/18 at 03:00 Glucose (Glutose) 15 gm Q15M PRN BUCCAL DECREASED GLUCOSE; Start 11/12/18 at 03:00 Acetaminophen (Tylenol Tab) 650 mg Q4H PRN GTB MILD PAIN LEVEL 1-3 Last ad ministered on 11/17/18 05:29; Admin Dose 650 MG; Start 11/12/18 at 09:30 Acetylcysteine (Mucomyst) 3 ml BID RESP THERAPY NEB Last administered on 11/24/18 08:57; Admin Dose 3 ML; Start 11/12/18 at 10:00 Atorvastatin Calcium (Lipitor) 80 mg QHS GTB Last administered on 11/23/18 21:25; Admin Dose 80 MG; Start 11/12/18 at 21:00 Bisacodyl (Dulcolax Supp) 10 mg Q24H PRN IN CONSTIPATION; Start 11/12/18 at 09:30 Furosemide (Lasix) 20 mg DAILY GTB Last administered on 11/24/18 09:28; Admin Dose 20 MG; Start 11/12/18 at 09:30 Hydralazine HCl (Apresoline) 25 mg Q6 GTB Last administered on 11/24/18 17:46; Admin Dose 25 MG; Start 11/12/18 at 12:00 Lansoprazole (Prevacid) 30 mg BID@0600,1800 GTB Last administered on 11/24/18 17:48; Admin Dose 30 MG; Start 11/12/18 at 18:00 Magnesium Hydroxide (Milk Of Mag) 30 ml Q24H GTB Last administered on 11/24/18 09:26; Admin Dose 30 ML; Start 11/12/18 at 09:30 Senna (Senokot) 2 tab BID GTB Last administered on 11/24/18 09:27; Admin Dose 2 TAB; Start 11/12/18 at 09:30 Sucralfate (Carafate Susp) 1 gm QID GTB Last administered on 11/24/18 17:46; Admin Dose 1 GM; Start 11/12/18 at 13:00 Valproate Sodium (Depakene Liquid Cup) 500 mg Q8 GTB Last administered on 11/24/18 14:20; Admin Dose 500 MG; Start 11/12/18 at 10:00 Insulin Human NPH (Humulin N) 28 unit Q8 SC Last administered on 11/24/18 14:25; Admin Dose 28 UNIT; Start 11/12/18 at 10:00 Sodium Biphosphate/ Sodium Phosphate (Fleet Enema) 133 ml DAILY PRN IN CONSTIPATION; Start 11/12/18 at 10:00 Lisinopril (Zestril) 10 mg DAILY GTB Last administered on 11/24/18 09:28; Admin Dose 10 MG; Start 11/14/18 at 09:00 Albuterol/ Ipratropium (Duoneb) 3 ml Q6H RESP THERAPY PRN HHN SHORTNESS OF BREATH Last administered on 11/24/18 08:57; Admin Dose 3 ML; Start 11/13/18 at 21:00 Vancomycin HCl (Vanco Iv Per Pharmacy) VANCOMYCIN PER PHARMA... PER PROTOCOL XX ; Start 11/17/18 at 13:00; Stop 12/01/18 at 12:59 Vancomycin HCl 1.25 gm/Sodium Chloride 250 ml @ 83.333 mls/ hr Q12H IVPB Last administered on 11/24/18 15:29; Admin Dose 83.333 MLS/HR; Start 11/18/18 at 03:00; Stop 12/01/18 at 12:59 Carvedilol (Coreg) 12.5 mg BID GTB Last administered on 11/24/18 09:27; Admin Dose 12.5 MG; Start 11/19/18 at 21:00 SETH AVENDANO Nov 24, 2018 19:01
[2018-11-24] MEDS: ATORVASTATIN 80 MG TAB GTB SCH (20:09)
[2018-11-25] VITALS (11 sets, daily range): BP systolic 106–145; BP diastolic 59–71; PULSE 68–86; RESP 16–22
[2018-11-25] MEDS: INSULIN ASPART [NOVOLOG] 3 ML PEN SC SCH ×6 (00:47→21:00)
[2018-11-25] MEDS: VANCOMYCIN HCL 1.25 GM in SOD CHLORIDE 0.9% 250 ML IVPB SCH ×2 (02:55→13:58)
[2018-11-25] MEDS: LANSOPRAZOLE 30 MG CAP GTB SCH ×2 (05:33→17:21)
[2018-11-25] MEDS: VALPROIC ACID LIQUID CUP 250 MG/5 ML CUP GTB SCH ×3 (05:33→21:15)
[2018-11-25] MEDS: NPH, HUMAN INSULIN ISOPHANE 3ML VIAL SC SCH ×3 (05:48→21:25)
[2018-11-25] MEDS: ACETYLCYSTEINE 20% 4 ML VIAL NEB SCH ×2 (08:06→20:25)
[2018-11-25] MEDS: ALBUTEROL/IPRATROPIUM (NEB) 3 ML AMP HHN PRN ×2 (08:06→20:25)
[2018-11-25] MEDS: SUCRALFATE (100 MG/ML) 10ML CUP GTB SCH ×4 (08:59→20:33)
[2018-11-25] MEDS: FUROSEMIDE 20 MG TAB GTB SCH (09:00)
[2018-11-25] MEDS: MAGNESIUM HYDROXIDE 30ML CUP GTB SCH (09:00)
[2018-11-25] MEDS: LISINOPRIL 5 MG TAB GTB SCH (09:00)
[2018-11-25] MEDS: SENNA TAB GTB SCH ×2 (09:01→20:34)
--- NOTE | 2018-11-25 10:59 | CONS ---
Assessment/Plan Assessment/Plan Assessment/Plan (Daily) Assessment and recommendations; 1. Patient admitted with pneumonia currently on appropriate antimicrobial regimen. 2. Chronic respiratory failure, doing fairly well on T-piece via tracheostomy. 3. History of craniotomy. 4. Stable seizure disorder. 5. Hypertension. 6. Diabetes. 7. Hyponatremia. Likely diuretic induced. Continue current supportive care. Discontinue Lasix for now. Monitor serum sodium level. Consultation Date/Type/Reason Admit Date/Time November 11, 2018 at 22:51 Initial Consult Date 11/15/18 Type of Consult Pulmonary/critical care Patient is a 52-year-old male who with a history of chronic encephalopathy admitted with worsening altered mental status from long-term. CT imaging of the brain showing acute intraparenchymal cerebral hemorrhage. Patient however has remained hemodynamically stable. Because of advanced encephalopathy patient was unable to give any history by himself whatsoever. Patient did not appear to be in any distress. Doing fairly well on T-piece via tracheostomy. Past medical history; 1. History of brain hemorrhage with right parietal craniotomy. 2. Chronic respiratory failure, patient maintained on T-piece now. 3. Seizure disorder. 4. CAD, status post PTCA in the past. 5. History of hypertension. 6. Diabetes. Medications; reviewed. Allergies; none. Social history, family history not available. Occupational history; patient is on disability now. Review of systems; unable to be obtained. General exam; middle-aged male, appears overweight, on T-piece via tracheostomy. Unresponsive. Currently in no distress. Requesting Provider: NIA DOMINGO MD Date/Time of Note DATE: 11/25/18 TIME: 10:56 24 HR Interval Summary Free Text/Dictation Patient's condition is fairly stable. Has remained hemodynamically stable. General exam; middle-aged male, on T-piece via tracheostomy, remains noncommunicative. Currently in no distress. Exam/Review of Systems Exam Vitals Vital Signs Date Temp Pulse Resp B/P (MAP) Pulse Ox O2 O2 Flow FiO2 Time Delivery Rate 11/25/18 86 08:00 11/25/18 97 5.0 28 08:00 11/25/18 99.0 16 126/71 Trach 07:23 (89) Collar Intake and Output 11/24/18 11/24/18 11/25/18 1515:00 23:00 07:00 IntakeIntake Total 340 ml 250 ml 1300 ml OutputOutput Total 1300 ml 1550 ml BalanceBalance 340 ml -1050 ml -250 ml Exam H ENT exam; supple neck, no JVD. No lymphadenopathy. Midline trachea. No thyromegaly. Tracheostomy in place. Attached to T-piece. There is a right parietal skull depression. Chest exam; diminished but clear breath sounds. S1-S2 audible, no murmurs. Regular rhythm. Abdomen exam; soft, protuberant. G-tube in place. Bowel sounds audible. Extremity exam; no peripheral edema. [employer] exam; patient remains unresponsive and noncommunicative. Results Result Diagram: 11/23/18 0725 11/25/18 0718 Results 24hrs Laboratory Tests Test 11/24/18 13:11 11/24/18 17:40 11/24/18 21:52 11/25/18 00:46 Bedside Glucose 113 121 131 128 Test 11/25/18 05:31 11/25/18 07:18 11/25/18 08:58 Bedside Glucose 116 136 Sodium Level 125 L Potassium Level 4.4 Chloride Level 93 L Carbon Dioxide Level 27 Anion Gap 5 Blood Urea Nitrogen 15 Creatinine 0.41 L Est Glomerular Filtrat > 60 Rate mL/min Glucose Level 139 Calcium Level 8.0 L Medications Medication Current Medications Ondansetron HCl (Zofran Inj) 4 mg Q6H PRN IV NAUSEA AND/OR VOMITING; Start 11/11/18 at 23:00 Acetaminophen (Tylenol Liquid) 650 mg Q6H PRN PO FEVER Last administered on 11/20/18at 03:38; Admin Dose 650 MG; Start 11/11/18 at 23:00 Morphine Sulfate (morphine) 2 mg Q4H PRN IV PAIN LEVEL 7-10 Last administered on 11/12/18at 05:26; Admin Dose 2 MG; Start 11/11/18 at 23:00 Insulin Aspart (Novolog Insulin Pen) NOVOLOG *MODERATE* ALGORI... Q4 SC Last administered on 11/24/18at 01:14; Admin Dose 2 UNIT; Start 11/12/18 at 05:00 Miscellaneous Information 1 ea NOTE XX ; Start 11/12/18 at 03:00 Glucose (Glutose) 15 gm Q15M PRN PO DECREASED GLUCOSE; Start 11/12/18 at 03:00 Glucose (Glutose) 22.5 gm Q15M PRN PO DECREASED GLUCOSE; Start 11/12/18 at 03:00 Dextrose (D50w Syringe) 25 ml Q15M PRN IV DECREASED GLUCOSE; Start 11/12/18 at 03:00 Dextrose (D50w Syringe) 50 ml Q15M PRN IV DECREASED GLUCOSE; Start 11/12/18 at 03:00 Glucagon (Glucagen) 1 mg Q15M PRN IM DECREASED GLUCOSE; Start 11/12/18 at 03:00 Glucose (Glutose) 15 gm Q15M PRN BUCCAL DECREASED GLUCOSE; Start 11/12/18 at 03:00 Acetaminophen (Tylenol Tab) 650 mg Q4H PRN GTB MILD PAIN LEVEL 1-3 Last adm inistered on 11/17/18 05:29; Admin Dose 650 MG; Start 11/12/18 at 09:30 Acetylcysteine (Mucomyst) 3 ml BID RESP THERAPY NEB Last administered on 11/25/18 08:06; Admin Dose 3 ML; Start 11/12/18 at 10:00 Atorvastatin Calcium (Lipitor) 80 mg QHS GTB Last administered on 11/24/18 20:09; Admin Dose 80 MG; Start 11/12/18 at 21:00 Bisacodyl (Dulcolax Supp) 10 mg Q24H PRN DC CONSTIPATION; Start 11/12/18 at 09:30 Furosemide (Lasix) 20 mg DAILY GTB Last administered on 11/25/18 09:00; Admin Dose 20 MG; Start 11/12/18 at 09:30 Hydralazine HCl (Apresoline) 25 mg Q6 GTB Last administered on 11/25/18 05:33; Admin Dose 25 MG; Start 11/12/18 at 12:00 Lansoprazole (Prevacid) 30 mg BID@0600,1800 GTB Last administered on 11/25/18 05:33; Admin Dose 30 MG; Start 11/12/18 at 18:00 Magnesium Hydroxide (Milk Of Mag) 30 ml Q24H GTB Last administered on 11/24/18 09:26; Admin Dose 30 ML; Start 11/12/18 at 09:30 Senna (Senokot) 2 tab BID GTB Last administered on 6/6/19at 09:01; Admin Dose 2 TAB; Start 11/12/18 at 09:30 Sucralfate (Carafate Susp) 1 gm QID GTB Last administered on 11/25/18 08:59; Admin Dose 1 GM; Start 11/12/18 at 13:00 Valproate Sodium (Depakene Liquid Cup) 500 mg Q8 GTB Last administered on 11/25/18 05:33; Admin Dose 500 MG; Start 11/12/18 at 10:00 Insulin Human NPH (Humulin N) 28 unit Q8 SC Last administered on 11/25/18 05:48; Admin Dose 28 UNIT; Start 11/12/18 at 10:00 Sodium Biphosphate/ Sodium Phosphate (Fleet Enema) 133 ml DAILY PRN DC CONSTIPATION; Start 11/12/18 at 10:00 Lisinopril (Zestril) 10 mg DAILY GTB Last administered on 11/25/18 09:00; Admin Dose 10 MG; Start 11/14/18 at 09:00 Albuterol/ Ipratropium (Duoneb) 3 ml Q6H RESP THERAPY PRN HHN SHORTNESS OF B REATH Last administered on 11/25/18 08:06; Admin Dose 3 ML; Start 11/13/18 at 21:00 Vancomycin HCl (Vanco Iv Per Pharmacy) VANCOMYCIN PER PHARMA... PER PROTOCOL XX ; Start 11/17/18 at 13:00; Stop 12/01/18 at 12:59 Vancomycin HCl 1.25 gm/Sodium Chloride 250 ml @ 83.333 mls/ hr Q12H IVPB Last administered on 11/25/18 02:55; Admin Dose 83.333 MLS/HR; Start 11/18/18 at 03:00; Stop 12/01/18 at 12:59 Carvedilol (Coreg) 12.5 mg BID GTB Last administered on 11/25/18 09:00; Admin Dose 12.5 MG; Start 11/19/18 at 21:00 MER CHRIS Nov 25, 2018 10:59
--- NOTE | 2018-11-25 13:43 | CONS ---
Assessment/Plan Assessment/Plan Hospital Course (Demo Recall) IMPRESSION: 1. Abnormal electrocardiogram, assess for acute coronary syndrome.-neg trop x 3/EF 30-35% 2. Cardiomyopathy with decreased left ventricular ejection fraction. EF 30-35% by echo this admit 3. Congestive heart failure, systolic, chronic. 4. Hypertension-well controlled 5. Intracranial hemorrhage. 6. Chronic encephalopathy. 7. Prior craniectomy. 8. History of prior PTCA and stent placement. 9. Anemia. 10. Tachycardia-S tach today ? etiology, autonomic dysfunction 11.fevers-defervesced 12. SVT-overnight at 160-170 regular, ? AVNRT Recc: -Tele -continue hydralazine/ACEI/coreg -Continue daily lasix and follow volume status closely -Continue statin -ongoing NRSG eval -Rx fevers -Continue abx's and f/u cx data -Now DNR Consultation Date/Type/Reason Admit Date/Time November 11, 2018 at 22:51 Initial Consult Date 11/12/18 Type of Consult Cardiology Reason for Consultation CHF Requesting Provider: NIA DOMINGO MD Date/Time of Note DATE: 11/25/18 TIME: 13:42 Exam/Review of Systems Vital Signs Vitals Vital Signs Date Temp Pulse Resp B/P (MAP) Pulse Ox O2 O2 Flow FiO2 Time Delivery Rate 11/25/18 73 12:00 11/25/18 98.3 16 106/59 98 Trach 11:35 (75) Collar 11/25/18 5.0 28 08:00 Intake and Output 11/24/18 11/24/18 11/25/18 1515:00 23:00 07:00 IntakeIntake Total 340 ml 250 ml 1300 ml OutputOutput Total 1300 ml 1550 ml BalanceBalance 340 ml -1050 ml -250 ml Exam Exam Review of Systems: CONSTITUTIONAL: No fevers, chills. PULMONARY: trached CARDIOVASCULAR: No obvious chest pain/palpitations GASTROINTESTINAL: No nausea/vomiting. GENITOURINARY: No hematuria/dysuria. MUSCULOSKELETAL: No obvious myagias/arthalgias. PSYCHIATRIC: The patient denies depression. NEUROLOGIC: encephalopathy Constitutional: other (encephalopathic) ENMT: mucosa pink and moist, other (trached) Neck: supple, jvd (9 cm water) Respiratory: diminished breath sounds (at bases/B) Cardiovascular: regular rate and rhythm Gastrointestinal: soft, non-tender Musculoskeletal: muscle weakness (generalized) Extremities: edema (none) Neurological: unresponsive Labs Result Diagram: 11/23/18 0725 11/25/18 0718 Results 24hrs Laboratory Tests Test 11/24/18 17:40 11/24/18 21:52 11/25/18 00:46 11/25/18 05:31 Bedside Glucose 121 131 128 116 Test 11/25/18 07:18 11/25/18 08:58 Sodium Level 125 L Potassium Level 4.4 Chloride Level 93 L Carbon Dioxide Level 27 Anion Gap 5 Blood Urea Nitrogen 15 Creatinine 0.41 L Est Glomerular Filtrat > 60 Rate mL/min Glucose Level 139 Calcium Level 8.0 L Bedside Glucose 136 Medications Medications Current Medications Ondansetron HCl (Zofran Inj) 4 mg Q6H PRN IV NAUSEA AND/OR VOMITING; Start 11/11/18 at 23:00 Acetaminophen (Tylenol Liquid) 650 mg Q6H PRN PO FEVER Last administered on 11/20/18at 03:38; Admin Dose 650 MG; Start 11/11/18 at 23:00 Morphine Sulfate (morphine) 2 mg Q4H PRN IV PAIN LEVEL 7-10 Last administered on 11/12/18at 05:26; Admin Dose 2 MG; Start 11/11/18 at 23:00 Insulin Aspart (Novolog Insulin Pen) NOVOLOG *MODERATE* ALGORI... Q4 SC Last administered on 11/24/18at 01:14; Admin Dose 2 UNIT; Start 11/12/18 at 05:00 Miscellaneous Information 1 ea NOTE XX ; Start 11/12/18 at 03:00 Glucose (Glutose) 15 gm Q15M PRN PO DECREASED GLUCOSE; Start 11/12/18 at 03:00 Glucose (Glutose) 22.5 gm Q15M PRN PO DECREASED GLUCOSE; Start 11/12/18 at 03:00 Dextrose (D50w Syringe) 25 ml Q15M PRN IV DECREASED GLUCOSE; Start 11/12/18 at 03:00 Dextrose (D50w Syringe) 50 ml Q15M PRN IV DECREASED GLUCOSE; Start 11/12/18 at 03:00 Glucagon (Glucagen) 1 mg Q15M PRN IM DECREASED GLUCOSE; Start 11/12/18 at 03:00 Glucose (Glutose) 15 gm Q15M PRN BUCCAL DECREASED GLUCOSE; Start 11/12/18 at 03:00 Acetaminophen (Tylenol Tab) 650 mg Q4H PRN GTB MILD PAIN LEVEL 1-3 Last admi nistered on 11/17/18 05:29; Admin Dose 650 MG; Start 11/12/18 at 09:30 Acetylcysteine (Mucomyst) 3 ml BID RESP THERAPY NEB Last administered on 11/25/18 08:06; Admin Dose 3 ML; Start 11/12/18 at 10:00 Atorvastatin Calcium (Lipitor) 80 mg QHS GTB Last administered on 11/24/18 20:09; Admin Dose 80 MG; Start 11/12/18 at 21:00 Bisacodyl (Dulcolax Supp) 10 mg Q24H PRN [place] CONSTIPATION; Start 11/12/18 at 09:30 Hydralazine HCl (Apresoline) 25 mg Q6 GTB Last administered on 11/25/18 05:33; Admin Dose 25 MG; Start 11/12/18 at 12:00 Lansoprazole (Prevacid) 30 mg BID@0600,1800 GTB Last administered on 11/25/18 05:33; Admin Dose 30 MG; Start 11/12/18 at 18:00 Magnesium Hydroxide (Milk Of Mag) 30 ml Q24H GTB Last administered on 11/24/18 09:26; Admin Dose 30 ML; Start 11/12/18 at 09:30 Senna (Senokot) 2 tab BID GTB Last administered on 11/25/18 09:01; Admin Dose 2 TAB; Start 11/12/18 at 09:30 Sucralfate (Carafate Susp) 1 gm QID GTB Last administered on 11/25/18 08:59; Admin Dose 1 GM; Start 11/12/18 at 13:00 Valproate Sodium (Depakene Liquid Cup) 500 mg Q8 GTB Last administered on 9at 05:33; Admin Dose 500 MG; Start 11/12/18 at 10:00 Insulin Human NPH (Humulin N) 28 unit Q8 SC Last administered on 11/25/18 05:48; Admin Dose 28 UNIT; Start 11/12/18 at 10:00 Sodium Biphosphate/ Sodium Phosphate (Fleet Enema) 133 ml DAILY PRN [place] CONSTIPATION; Start 11/12/18 at 10:00 Lisinopril (Zestril) 10 mg DAILY GTB Last administered on 11/25/18at 09:00; Admin Dose 10 MG; Start 11/14/18 at 09:00 Albuterol/ Ipratropium (Duoneb) 3 ml Q6H RESP THERAPY PRN HHN SHORTNESS OF BREATH Last administered on 11/25/18at 08:06; Admin Dose 3 ML; Start 11/13/18 at 21:00 Vancomycin HCl (Vanco Iv Per Pharmacy) VANCOMYCIN PER PHARMA... PER PROTOCOL XX ; Start 11/17/18 at 13:00; Stop 12/01/18 at 12:59 Vancomycin HCl 1.25 gm/Sodium Chloride 250 ml @ 83.333 mls/ hr Q12H IVPB Last administered on 11/25/18at 02:55; Admin Dose 83.333 MLS/HR; Start 11/18/18 at 03:00; Stop 12/01/18 at 12:59 Carvedilol (Coreg) 12.5 mg BID GTB Last administered on 11/25/18at 09:00; Admin Dose 12.5 MG; Start 11/19/18 at 21:00 MAE ROSALES Nov 25, 2018 13:43
--- NOTE | 2018-11-25 13:48 | PN ---
Date/Time of Note Date/Time of Note DATE: 11/25/18 TIME: 13:40 Assessment/Plan VTE Prophylaxis Risk score (from Ns)>0 risk: 5 SCD applied (from Ns): Yes Pharmacological prophylaxis: NA/contraindicated Pharm contraindication: bleeding Lines/Catheters IV [facility]from [facility] Peripheral IV Urinary Cath still in place: Yes Reason Cath still needed: urinary retention Assessment/Plan Hospital Course Patient continues on cool aerosol mist, stable vital signs. Sodium is125, discussed with the nurse. Patient has a rectal tube with liquid stool, will obtain stool for C. difficile. Patient is currently on vancomycin for MRSA bacteremia. Patient's condition and plan of care discussed with patient's at the bedside. Assessment/Plan -Hyponatremia. Dr. Betts, nephrology consultation. -Diarrhea, will check stool for C. difficile. -Intracranial hemorrhage, Dr. Espana is following in neurosurgery consultation. Family does not want any aggressive treatment. -Sepsis with fever and leukocytosis most likely secondary to HCAP, resolved. Completed treatment with antibiotics for pneumonia. Dr. Kiran is following in infection disease consultation. -MRSA bacteremia, continue Vanco until 12/01/18. -Recent history of right hemicraniectomy, details are not available. Records requested. -Chronic respiratory failure with tracheostomy, patient is currently on T-tube. -Healthcare associated pneumonia, continue antibiotics. -Coronary artery disease, status post PTCA with stent placement -Ischemic cardiomyopathy -Diabetes -Dysphagia with G-tube -Dyslipidemia -Obesity with BMI of 35.3 -DNR status Further recommendations depends on clinical course. Plan of care discussed with Dr. Cortez. Result Diagram: 11/23/18 0725 11/25/18 0718 Results 24hrs Laboratory Tests Test 11/24/18 17:40 11/24/18 21:52 11/25/18 00:46 11/25/18 05:31 Bedside Glucose 121 131 128 116 Test 11/25/18 07:18 11/25/18 08:58 Sodium Level 125 L Potassium Level 4.4 Chloride Level 93 L Carbon Dioxide Level 27 Anion Gap 5 Blood Urea Nitrogen 15 Creatinine 0.41 L Est Glomerular Filtrat > 60 Rate mL/min Glucose Level 139 Calcium Level 8.0 L Bedside Glucose 136 Exam/Review of Systems Exam Vitals Vital Signs Date Temp Pulse Resp B/P (MAP) Pulse Ox O2 O2 Flow FiO2 Time Delivery Rate 11/25/18 73 12:00 11/25/18 98.3 16 106/59 98 Trach 11:35 (75) Collar 11/25/18 5.0 28 08:00 Intake and Output 11/24/18 11/24/18 11/25/18 1515:00 23:00 07:00 IntakeIntake Total 340 ml 250 ml 1300 ml OutputOutput Total 1300 ml 1550 ml BalanceBalance 340 ml -1050 ml -250 ml Exam Constitutional: non-verbal, frail Head: other (Status post right craniectomy) Neck: other (Trach) Respiratory: diminished breath sounds Cardiovascular: regular rate and rhythm Gastrointestinal: soft, non-tender, other (G-tube) Musculoskeletal: muscle weakness Extremities: normal pulses Neurological: other (Noncommunicative) Skin: nl turgor Results Results 24hrs Laboratory Tests Test 11/24/18 17:40 11/24/18 21:52 11/25/18 00:46 11/25/18 05:31 Bedside Glucose 121 131 128 116 Test 11/25/18 07:18 11/25/18 08:58 Sodium Level 125 L Potassium Level 4.4 Chloride Level 93 L Carbon Dioxide Level 27 Anion Gap 5 Blood Urea Nitrogen 15 Creatinine 0.41 L Est Glomerular Filtrat > 60 Rate mL/min Glucose Level 139 Calcium Level 8.0 L Bedside Glucose 136 Medications Medication Current Medications Ondansetron HCl (Zofran Inj) 4 mg Q6H PRN IV NAUSEA AND/OR VOMITING; Start 11/11/18 at 23:00 Acetaminophen (Tylenol Liquid) 650 mg Q6H PRN PO FEVER Last administered on 11/20/18at 03:38; Admin Dose 650 MG; Start 11/11/18 at 23:00 Morphine Sulfate (morphine) 2 mg Q4H PRN IV PAIN LEVEL 7-10 Last administered on 11/12/18at 05:26; Admin Dose 2 MG; Start 11/11/18 at 23:00 Insulin Aspart (Novolog Insulin Pen) NOVOLOG *MODERATE* ALGORI... Q4 SC Last administered on 11/24/18at 01:14; Admin Dose 2 UNIT; Start 11/12/18 at 05:00 Miscellaneous Information 1 ea NOTE XX ; Start 11/12/18 at 03:00 Glucose (Glutose) 15 gm Q15M PRN PO DECREASED GLUCOSE; Start 11/12/18 at 03:00 Glucose (Glutose) 22.5 gm Q15M PRN PO DECREASED GLUCOSE; Start 11/12/18 at 03:00 Dextrose (D50w Syringe) 25 ml Q15M PRN IV DECREASED GLUCOSE; Start 11/12/18 at 03:00 Dextrose (D50w Syringe) 50 ml Q15M PRN IV DECREASED GLUCOSE; Start 11/12/18 at 03:00 Glucagon (Glucagen) 1 mg Q15M PRN IM DECREASED GLUCOSE; Start 11/12/18 at 03:00 Glucose (Glutose) 15 gm Q15M PRN BUCCAL DECREASED GLUCOSE; Start 11/12/18 at 03:00 Acetaminophen (Tylenol Tab) 650 mg Q4H PRN GTB MILD PAIN LEVEL 1-3 Last administered on 11/17/18 05:29; Admin Dose 650 MG; Start 11/12/18 at 09:30 Acetylcysteine (Mucomyst) 3 ml BID RESP THERAPY NEB Last administered on 08:06; Admin Dose 3 ML; Start 11/12/18 at 10:00 Atorvastatin Calcium (Lipitor) 80 mg QHS GTB Last administered on 11/24/18 20:09; Admin Dose 80 MG; Start 11/12/18 at 21:00 Bisacodyl (Dulcolax Supp) 10 mg Q24H PRN [place] CONSTIPATION; Start 11/12/18 at 09:30 Hydralazine HCl (Apresoline) 25 mg Q6 GTB Last administered on 11/25/18 05:33; Admin Dose 25 MG; Start 11/12/18 at 12:00 Lansoprazole (Prevacid) 30 mg BID@0600,1800 GTB Last administered on 11/25/18 05:33; Admin Dose 30 MG; Start 11/12/18 at 18:00 Magnesium Hydroxide (Milk Of Mag) 30 ml Q24H GTB Last administered on 11/24/18 09:26; Admin Dose 30 ML; Start 11/12/18 at 09:30 Senna (Senokot) 2 tab BID GTB Last administered on 11/25/18 09:01; Admin Dose 2 TAB; Start 11/12/18 at 09:30 Sucralfate (Carafate Susp) 1 gm QID GTB Last administered on 11/25/18 08:59; Admin Dose 1 GM; Start 11/12/18 at 13:00 Valproate Sodium (Depakene Liquid Cup) 500 mg Q8 GTB Last administered on 11/25/18 05:33; Admin Dose 500 MG; Start 11/12/18 at 10:00 Insulin Human NPH (Humulin N) 28 unit Q8 SC Last administered on 11/25/18 05:48; Admin Dose 28 UNIT; Start 11/12/18 at 10:00 Sodium Biphosphate/ Sodium Phosphate (Fleet Enema) 133 ml DAILY PRN [place] CONSTIPATION; Start 11/12/18 at 10:00 Lisinopril (Zestril) 10 mg DAILY GTB Last administered on 11/25/18 09:00; Admin Dose 10 MG; Start 11/14/18 at 09:00 Albuterol/ Ipratropium (Duoneb) 3 ml Q6H RESP THERAPY PRN HHN SHORTNESS OF BREATH Last administered on 11/25/18 08:06; Admin Dose 3 ML; Start 11/13/18 at 21:00 Vancomycin HCl (Vanco Iv Per Pharmacy) VANCOMYCIN PER PHARMA... PER PROTOCOL XX ; Start 11/17/18 at 13:00; Stop 12/01/18 at 12:59 Vancomycin HCl 1.25 gm/Sodium Chloride 250 ml @ 83.333 mls/ hr Q12H IVPB Last administered on 11/25/18 02:55; Admin Dose 83.333 MLS/HR; Start 11/18/18 at 03:00; Stop 12/01/18 at 12:59 Carvedilol (Coreg) 12.5 mg BID GTB Last administered on 11/25/18 09:00; Admin Dose 12.5 MG; Start 11/19/18 at 21:00 SETH AVENDANO Nov 25, 2018 13:48
--- NOTE | 2018-11-25 16:58 | EN ---
Date/Time of Note Date/Time of Note DATE: 11/25/18 TIME: 16:58 Event Note Medicine Medicine Event Note EMR reviewed. further eval with ASSEM[employer] MECHANIC under my direction to follow. full note to follow shortly MOLINA BONILLA MD Nov 25, 2018 16:58
--- NOTE | 2018-11-25 18:23 | CONS ---
Assessment/Plan Assessment/Plan Hospital Course (Demo Recall) - intermittent fever due to bacteremia and possible HCAP - resolved - bacteremia due to MRSA on 11/15/2018; repeat blood cx on 11/17/2018 were negative - possible HCAP, however, given the polymicrobial growth of his resp culture, all bacteria may be colonizers of the airway: providencia, proteus, pseudomonas, group B strep, klebsiella; repeat trach asp cx 11/17/2018 grew pseudomonas and proteus; Pt completed pip/tazo (11/15/2018-11/17/2018) and cefepime (11/18/2018- 11/22/18) - h/o CVA. 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 [id number] lobes; stable large subacute R frontal temporal parietal intraparenchymal hemorrhage, plus en cephalomalacia/gliosis; stable moderate to severe ventriculomegaly; moderate b/l occipital horn acute intraventricular hemorrhage; chronic R paracentral pontine infarction; small chronic R cerebellar infarctions; L temporal lobe with associated encephalomalacia/gliosis within this region as well as laminar necrosis; moderate chronic microvascular ischemic changes; basilar dolichoectasia; extensive bilateral mastoid air cell effusions - aerococci in urine culture on 11/14/2018, probable colonization - chronic hypoxic resp failure - h/o tracheostomy placement - unresponsive state due to extensive CVA - diarrhea - on senna Recommendations - continue IV vancomycin (re-start 11/17/2018-12/01/2018) for bacteremia due to MRSA; plan for 14 days - monitor skin for rash Management discussed BRADLEY Linda and with Dr. Kiran Consultation Date/Type/Reason Admit Date/Time November 11, 2018 at 22:51 Initial Consult Date 11/15/18 Type of Consult Infectious Disease Requesting Provider: NIA DOMINGO MD Date/Time of Note DATE: 11/25/18 TIME: 18:17 24 HR Interval Summary Free Text/Dictation Pt with rash concerning for possible drug rash or scabies per d/w nursing. Subjective hx not possible: pt non-verbal Exam/Review of Systems Exam Vitals Vital Signs Date Temp Pulse Resp B/P (MAP) Pulse Ox O2 O2 Flow FiO2 Time Delivery Rate 11/25/18 98.7 86 16 128/59 98 Trach 16:00 (82) Collar 11/25/18 5.0 28 08:00 Intake and Output 11/24/18 11/24/18 11/25/18 1515:00 23:00 07:00 IntakeIntake Total 340 ml 250 ml 1300 ml OutputOutput Total 1300 ml 1550 ml BalanceBalance 340 ml -1050 ml -250 ml Exam Constitutional: well developed, non-verbal, frail, obese, other (chronically debilitated) Psych: other (unable to assess) Head: other (craniectomy scar well healed, but site is full) Eyes: nl conjunctiva, nl lids ENMT: nl external ears & nose, nl nasal mucosa & septum, other (unable to examine OP) Neck: other (trach is midline and connected to T-piece) Respiratory: diminished breath sounds (coarse breath sounds); No wheezing Cardiovascular: regular rate and rhythm, nl pulses Gastrointestinal: soft, non-tender, other (G-tube intact; Rectal tube with liquid brown stool); No distended Genitourinary - Male: nl penis, nl scrotum, other (Nelson catheter intact with clear carlos manuel urine) Musculoskeletal: nl extremities to inspection, other (stiff to ROM) Extremities: No edema Neurological: unresponsive (withdraws to pain) Skin: nl turgor, rash or lesions (pt with erythematous rash noted from photos on 11/19/2018, currently no significant erythema noted. Pt has scaly dry skin carlos to L hand, R axilla and R shoulder but this does not appear to be scabies), other (multiple tattoos) Results Result Diagram: 11/23/18 0725 11/25/18 0718 Results 24hrs Laboratory Tests Test 11/24/18 21:52 11/25/18 00:46 11/25/18 05:31 11/25/18 07:18 Bedside Glucose 131 128 116 Sodium Level 125 L Potassium Level 4.4 Chloride Level 93 L Carbon Dioxide Level 27 Anion Gap 5 Blood Urea Nitrogen 15 Creatinine 0.41 L Est Glomerular Filtrat > 60 Rate mL/min Glucose Level 139 Calcium Level 8.0 L Test 11/25/18 08:58 11/25/18 13:59 11/25/18 17:20 Bedside Glucose 136 127 130 Medications Medication Current Medications Ondansetron HCl (Zofran Inj) 4 mg Q6H PRN IV NAUSEA AND/OR VOMITING; Start 11/11/18 at 23:00 Acetaminophen (Tylenol Liquid) 650 mg Q6H PRN PO FEVER Last administered on 11/20/18at 03:38; Admin Dose 650 MG; Start 11/11/18 at 23:00 Morphine Sulfate (morphine) 2 mg Q4H PRN IV PAIN LEVEL 7-10 Last administered on 11/12/18at 05:26; Admin Dose 2 MG; Start 11/11/18 at 23:00 Insulin Aspart (Novolog Insulin Pen) NOVOLOG *MODERATE* ALGORI... Q4 SC Last administered on 11/24/18at 01:14; Admin Dose 2 UNIT; Start 11/12/18 at 05:00 Miscellaneous Information 1 ea NOTE XX ; Start 11/12/18 at 03:00 Glucose (Glutose) 15 gm Q15M PRN PO DECREASED GLUCOSE; Start 11/12/18 at 03:00 Glucose (Glutose) 22.5 gm Q15M PRN PO DECREASED GLUCOSE; Start 11/12/18 at 03:00 Dextrose (D50w Syringe) 25 ml Q15M PRN IV DECREASED GLUCOSE; Start 11/12/18 at 03:00 Dextrose (D50w Syringe) 50 ml Q15M PRN IV DECREASED GLUCOSE; Start 11/12/18 at 03:00 Glucagon (Glucagen) 1 mg Q15M PRN IM DECREASED GLUCOSE; Start 11/12/18 at 03:00 Glucose (Glutose) 15 gm Q15M PRN BUCCAL DECREASED GLUCOSE; Start 11/12/18 at 03:00 Acetaminophen (Tylenol Tab) 650 mg Q4H PRN GTB MILD PAIN LEVEL 1-3 Last administered on 11/17/18at 05:29; Admin Dose 650 MG; Start 11/12/18 at 09:30 Acetylcysteine (Mucomyst) 3 ml BID RESP THERAPY NEB Last administered on 11/25/18 08:06; Admin Dose 3 ML; Start 11/12/18 at 10:00 Atorvastatin Calcium (Lipitor) 80 mg QHS GTB Last administered on 11/24/18at 20:09; Admin Dose 80 MG; Start 11/12/18 at 21:00 Bisacodyl (Dulcolax Supp) 10 mg Q24H PRN [place] CONSTIPATION; Start 11/12/18 at 09:30 Hydralazine HCl (Apresoline) 25 mg Q6 GTB Last administered on 11/25/18 17:25; Admin Dose 25 MG; Start 11/12/18 at 12:00 Lansoprazole (Prevacid) 30 mg BID@0600,1800 GTB Last administered on 11/25/18 17:21; Admin Dose 30 MG; Start 11/12/18 at 18:00 Senna (Senokot) 2 tab BID GTB Last administered on 11/25/18 09:01; Admin Dose 2 TAB; Start 11/12/18 at 09:30 Sucralfate (Carafate Susp) 1 gm QID GTB Last administered on 11/25/18 17:21; Admin Dose 1 GM; Start 11/12/18 at 13:00 Valproate Sodium (Depakene Liquid Cup) 500 mg Q8 GTB Last administered on 11/25/18 13:58; Admin Dose 500 MG; Start 11/12/18 at 10:00 Insulin Human NPH (Humulin N) 28 unit Q8 SC Last administered on 11/25/18 15:16; Admin Dose 28 UNIT; Start 11/12/18 at 10:00 Sodium Biphosphate/ Sodium Phosphate (Fleet Enema) 133 ml DAILY PRN [place] CONSTIPATION; Start 11/12/18 at 10:00 Lisinopril (Zestril) 10 mg DAILY GTB Last administered on 11/25/18 09:00; Admin Dose 10 MG; Start 11/14/18 at 09:00 Albuterol/ Ipratropium (Duoneb) 3 ml Q6H RESP THERAPY PRN HHN SHORTNESS OF B REATH Last administered on 11/25/18 08:06; Admin Dose 3 ML; Start 11/13/18 at 21:00 Vancomycin HCl (Vanco Iv Per Pharmacy) VANCOMYCIN PER PHARMA... PER PROTOCOL XX ; Start 11/17/18 at 13:00; Stop 12/01/18 at 12:59 Vancomycin HCl 1.25 gm/Sodium Chloride 250 ml @ 83.333 mls/ hr Q12H IVPB Last administered on 11/25/18 13:58; Admin Dose 83.333 MLS/HR; Start 11/18/18 at 03:00; Stop 12/01/18 at 12:59 Carvedilol (Coreg) 12.5 mg BID GTB Last administered on 11/25/18at 09:00; Admin Dose 12.5 MG; Start 11/19/18 at 21:00 BISHNU ACOSTA NP Nov 25, 2018 18:23
[2018-11-25] MEDS: ATORVASTATIN 80 MG TAB GTB SCH (20:34)
--- NOTE | 2018-11-25 22:02 | CONS ---
Assessment/Plan Assessment/Plan Assessment/Plan (Daily) 1. 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 Sepsis due to possible HCAP and MRSA bacteremia 3. MRSA bacteremia 4. Possible HCAP 5. Intracranial hemorrhage - family decided for conservative management 6. h/o large CVA with subsequent vegetative state 7. Chronic respiratory failure s/p Tracheostomy 8 S/p G tube placemen t Plan: IV abx vancomycin as per ID for MRSA bacteremia, Renally dose all abx and monitor electrolytes BP stable, lisinopril 10mg po daily Na 125 today, will check urine studies and decide for any IVF AM labs has been ordered Thanks for consultation, I will continue to follow up Consultation Date/Type/Reason Admit Date/Time November 11, 2018 at 22:51 Date of Consultation: Nov 25, 2018 Type of Consult NEPHROLOGY Reason for Consultation Hyponatremia, Acute prerenal azotemia Requesting Provider: NIA DOMINGO MD Date/Time of Note DATE: 11/25/18 TIME: 22:02 Hx of Present Illness 52-year-old gentleman with PMHx of coronary artery disease status post percutaneous coronary intervention, cardiomyopathy with last ejection fraction reported in general in 06/2018 to be 40%. H/o CVA s/p Carniotomy at [facility], Pt had a respiratory failure and could not be weaned off subsequently underwent tracheostomy and G-tube placement. The patient was initially admitted in [place] then was sent to [facility]. Pt is non verbal at [facility]- The patient was immediately sent to [facility] Emergency Room, where he underwent stat CT scan of the head, which revealed acute large intraparenchymal hemorrhage within the right frontotemporal parietal lobe. pt had a ICH and recommended to have [employer] shunt by Neurosurery but family declined any agressive measures, pt has a MRSA bacteremia and has been receiving IV abx for bacteremia. renal has been ocnsulted for hyponatremia. Subjective hx not possible: pt non-verbal, pt critical status Past Medical History Home Meds Reported Medications Acetylcysteine* (Mucomyst*) 4 Ml Soln, 3 ML NEB BID, EA 06/30/18 Na Phos,M-B/Na Phos,Di-Ba (Fleet Enema Extra) 230 Ml Enema, 230 ML RC NEEDED, ENEMA 1/9/19 Bisacodyl* (Bisacodyl*) 10 Mg Supp, 10 MG [place] Q24H PRN for NEEDED, SUPP 06/30/18 Magnesium Hydroxide* (Milk Of Magnesia*) 400 Mg/5 Ml Oral.susp, 30 ML GTB Q24H for CONSTIPATION, ML 06/30/18 Sennosides* (Senna Lax*) 8.6 Mg Tablet, 2 TAB GTB BID, TAB 06/30/18 Insulin Aspart* (Novolog Insulin Pen*) 100 Unit/Ml Soln, 0 SC .SLIDING SCALE AC, EA IF BS 0-120=0 UNITS,120-150=0 UNIT, 151-200=1 UNIT, 201-250=2 UNIT, 251-300=3 UNIT, 301-350=4 UNIT, 351-400=5 UNIT, ABOVE 400=6 UNIT AND CALL MD. 06/30/18 Glucagon HCl (Glucagon HCl) 1 Mg Vial, 1 MG IJ NEEDED, VIAL IF BS BELOW 60 06/30/18 Insulin NPH Human Isophane (Humulin N) 100 Unit/1 Ml Vial, 28 UNIT SQ Q8H, VIAL 06/30/18 Hydrocodone/Acetaminophen ([place] 5-325 Tablet) 1 Each Tablet, 1 EACH GTB Q6H, TAB NEEDED FOR PAIN 06/30/18 Acetaminophen* (Tylenol*) 500 Mg Tab, 1000 MG GTB Q4H PRN for PAIN 4-6/10, TAB 06/30/18 Acetaminophen* (Tylenol*) 325 Mg Tablet, 650 MG GTB PRN PRN for TRACH TUBE CHANGE, TAB 06/30/18 Acetaminophen* (Tylenol*) 325 Mg Tablet, 650 MG GTB Q4H PRN for MILD PAIN LEVEL 1-3, TAB AND FEVER 100 AND ABOVE 06/30/18 Amino Acids/Protein Hydrolys (PRO-STAT LIQUID) 30 Ml Liquid.pkt, 30 ML GTB DAILY SUGAR FREE 06/30/18 Cran/Vitc/Mannose/Inulin/Brom (Uti-Stat Liquid) 3,875 Mg/30 Ml Liquid, 30 ML GTB DAILY 06/30/18 Hydralazine Hcl* (Hydralazine Hcl*) 25 Mg Tab, 25 MG GTB Q6H, #60 TAB 06/30/18 Furosemide* (Lasix* Liq) 40 Mg/5 Ml Cup, 20 MG GTB DAILY, EA 06/30/18 Carvedilol* (Carvedilol*) 3.125 Mg Tablet, 3.125 MG GTB BID, #60 TAB 06/30/18 Atorvastatin* (Atorvastatin*) 80 Mg Tablet, 80 MG GTB QHS, #30 TAB 06/30/18 Aspirin* (Aspirin* EC) 81 Mg Tablet.dr, 162 MG GTB DAILY, TAB 06/30/18 Valproic Acid* (Valproic Acid* Liq) 250 Mg/5 Ml Syrup, 10 ML GTB Q8H, ML 06/30/18 Sucralfate* (Carafate*) 1 Gm/10 Ml Susp, 1 GM GTB QID, EA 06/30/18 Lisinopril* (Lisinopril*) 5 Mg Tablet, 5 MG GTB DAILY, #30 TAB 06/30/18 Lansoprazole* (Lansoprazole*) 30 Mg Capsule.dr, 30 MG GTB BID, CAP 06/30/18 Lactobacillus Acidophilus (Acidophilus Lactobacillus) 1 Each Capsule, 1 EACH GTB BID, CAP 06/30/18 Medications Current Medications Ondansetron HCl (Zofran Inj) 4 mg Q6H PRN IV NAUSEA AND/OR VOMITING; Start 11/11/18 at 23:00 Acetaminophen (Tylenol Liquid) 650 mg Q6H PRN PO FEVER Last administered on 11/20/18at 03:38; Admin Dose 650 MG; Start 11/11/18 at 23:00 Morphine Sulfate (morphine) 2 mg Q4H PRN IV PAIN LEVEL 7-10 Last administered on 11/12/18at 05:26; Admin Dose 2 MG; Start 11/11/18 at 23:00 Insulin Aspart (Novolog Insulin Pen) NOVOLOG *MODERATE* ALGORI... Q4 SC Last administered on 11/24/18at 01:14; Admin Dose 2 UNIT; Start 11/12/18 at 05:00 Miscellaneous Information 1 ea NOTE XX ; Start 11/12/18 at 03:00 Glucose (Glutose) 15 gm Q15M PRN PO DECREASED GLUCOSE; Start 11/12/18 at 03:00 Glucose (Glutose) 22.5 gm Q15M PRN PO DECREASED GLUCOSE; Start 11/12/18 at 03:00 Dextrose (D50w Syringe) 25 ml Q15M PRN IV DECREASED GLUCOSE; Start 11/12/18 at 03:00 Dextrose (D50w Syringe) 50 ml Q15M PRN IV DECREASED GLUCOSE; Start 11/12/18 at 03:00 Glucagon (Glucagen) 1 mg Q15M PRN IM DECREASED GLUCOSE; Start 11/12/18 at 03:00 Glucose (Glutose) 15 gm Q15M PRN BUCCAL DECREASED GLUCOSE; Start 11/12/18 at 03:00 Acetaminophen (Tylenol Tab) 650 mg Q4H PRN GTB MILD PAIN LEVEL 1-3 Last administered on 11/17/18 05:29; Admin Dose 650 MG; Start 11/12/18 at 09:30 Acetylcysteine (Mucomyst) 3 ml BID RESP THERAPY NEB Last administered on 11/25/18 20:25; Admin Dose 3 ML; Start 11/12/18 at 10:00 Atorvastatin Calcium (Lipitor) 80 mg QHS GTB Last administered on 11/25/18 20:34; Admin Dose 80 MG; Start 11/12/18 at 21:00 Bisacodyl (Dulcolax Supp) 10 mg Q24H PRN [place] CONSTIPATION; Start 11/12/18 at 09:30 Hydralazine HCl (Apresoline) 25 mg Q6 GTB Last administered on 11/25/18 17:25; Admin Dose 25 MG; Start 11/12/18 at 12:00 Lansoprazole (Prevacid) 30 mg BID@0600,1800 GTB Last administered on 11/25/18 17:21; Admin Dose 30 MG; Start 11/12/18 at 18:00 Senna (Senokot) 2 tab BID GTB Last administered on 11/25/18 20:34; Admin Dose 2 TAB; Start 11/12/18 at 09:30 Sucralfate (Carafate Susp) 1 gm QID GTB Last administered on 11/25/18 20:33; Admin Dose 1 GM; Start 11/12/18 at 13:00 Valproate Sodium (Depakene Liquid Cup) 500 mg Q8 GTB Last administered on 11/25/18 21:15; Admin Dose 500 MG; Start 11/12/18 at 10:00 Insulin Human NPH (Humulin N) 28 unit Q8 SC Last administered on 11/25/18 21:25; Admin Dose 28 UNIT; Start 11/12/18 at 10:00 Sodium Biphosphate/ Sodium Phosphate (Fleet Enema) 133 ml DAILY PRN [place] CONSTIPATION; Start 11/12/18 at 10:00 Lisinopril (Zestril) 10 mg DAILY GTB Last administered on 11/25/18 09:00; Admin Dose 10 MG; Start 11/14/18 at 09:00 Albuterol/ Ipratropium (Duoneb) 3 ml Q6H RESP THERAPY PRN HHN SHORTNESS OF BREATH Last administered on 11/25/18 20:25; Admin Dose 3 ML; Start 11/13/18 at 21:00 Vancomycin HCl (Vanco Iv Per Pharmacy) VANCOMYCIN PER PHARMA... PER PROTOCOL XX ; Start 11/17/18 at 13:00; Stop 12/01/18 at 12:59 Vancomycin HCl 1.25 gm/Sodium Chloride 250 ml @ 83.333 mls/ hr Q12H IVPB Last administered on 11/25/18at 13:58; Admin Dose 83.333 MLS/HR; Start 11/18/18 at 03:00; Stop 12/01/18 at 12:59 Carvedilol (Coreg) 12.5 mg BID GTB Last administered on 11/25/18 20:34; Admin Dose 12.5 MG; Start 11/19/18 at 21:00 Allergies: Coded Allergies: No Known Drug Allergies (Verified Allergy, Mild, 06/30/18) Past Surgical History Past Surgical Hx: other Social History Smoking Status: Unknown if ever smoked Exam/Review of Systems Exam Vitals Vital Signs Date Temp Pulse Resp B/P (MAP) Pulse Ox O2 O2 Flow FiO2 Time Delivery Rate 11/25/18 75 18 100 Aerosol 5.0 28 20:26 T Tube 11/25/18 98.3 127/60 20:18 (82) Intake and Output 11/24/18 11/24/18 11/25/18 1515:00 23:00 07:00 IntakeIntake Total 340 ml 250 ml 1300 ml OutputOutput Total 1300 ml 1550 ml BalanceBalance 340 ml -1050 ml -250 ml Exam Constitutional: non-verbal, frail Head: other (Status post right craniectomy) Neck: other (Trach) Respiratory: diminished breath sounds Cardiovascular: regular rate and rhythm Gastrointestinal: soft, non-tender, other (G-tube) Musculoskeletal: muscle weakness Extremities: normal pulses Neurological: other (Noncommunicative) Skin: nl turgor Results Result Diagram: 11/23/18 0725 11/25/18 0718 Results 24hrs Laboratory Tests Test 11/25/18 00:46 11/25/18 05:31 11/25/18 07:18 11/25/18 08:58 Bedside Glucose 128 116 136 Sodium Level 125 L Potassium Level 4.4 Chloride Level 93 L Carbon Dioxide Level 27 Anion Gap 5 Blood Urea Nitrogen 15 Creatinine 0.41 L Est Glomerular Filtrat > 60 Rate mL/min Glucose Level 139 Calcium Level 8.0 L Test 11/25/18 13:59 11/25/18 17:20 11/25/18 21:12 Bedside Glucose 127 130 116 Medications Medication Current Medications Ondansetron HCl (Zofran Inj) 4 mg Q6H PRN IV NAUSEA AND/OR VOMITING; Start 11/11/18 at 23:00 Acetaminophen (Tylenol Liquid) 650 mg Q6H PRN PO FEVER Last administered on 11/20/18at 03:38; Admin Dose 650 MG; Start 11/11/18 at 23:00 Morphine Sulfate (morphine) 2 mg Q4H PRN IV PAIN LEVEL 7-10 Last administered on 11/12/18at 05:26; Admin Dose 2 MG; Start 11/11/18 at 23:00 Insulin Aspart (Novolog Insulin Pen) NOVOLOG *MODERATE* ALGORI... Q4 SC Last administered on 11/24/18at 01:14; Admin Dose 2 UNIT; Start 11/12/18 at 05:00 Miscellaneous Information 1 ea NOTE XX ; Start 11/12/18 at 03:00 Glucose (Glutose) 15 gm Q15M PRN PO DECREASED GLUCOSE; Start 11/12/18 at 03:00 Glucose (Glutose) 22.5 gm Q15M PRN PO DECREASED GLUCOSE; Start 11/12/18 at 03:00 Dextrose (D50w Syringe) 25 ml Q15M PRN IV DECREASED GLUCOSE; Start 11/12/18 at 03:00 Dextrose (D50w Syringe) 50 ml Q15M PRN IV DECREASED GLUCOSE; Start 11/12/18 at 03:00 Glucagon (Glucagen) 1 mg Q15M PRN IM DECREASED GLUCOSE; Start 11/12/18 at 03:00 Glucose (Glutose) 15 gm Q15M PRN BUCCAL DECREASED GLUCOSE; Start 11/12/18 at 03:00 Acetaminophen (Tylenol Tab) 650 mg Q4H PRN GTB MILD PAIN LEVEL 1-3 Last administered on 11/17/18 05:29; Admin Dose 650 MG; Start 11/12/18 at 09:30 Acetylcysteine (Mucomyst) 3 ml BID RESP THERAPY NEB Last administered on 11/25/18 20:25; Admin Dose 3 ML; Start 11/12/18 at 10:00 Atorvastatin Calcium (Lipitor) 80 mg QHS GTB Last administered on 11/25/18 20:34; Admin Dose 80 MG; Start 11/12/18 at 21:00 Bisacodyl (Dulcolax Supp) 10 mg Q24H PRN [place] CONSTIPATION; Start 11/12/18 at 09:30 Hydralazine HCl (Apresoline) 25 mg Q6 GTB Last administered on 11/25/18 17:25; Admin Dose 25 MG; Start 11/12/18 at 12:00 Lansoprazole (Prevacid) 30 mg BID@0600,1800 GTB Last administered on 11/25/18 17:21; Admin Dose 30 MG; Start 11/12/18 at 18:00 Senna (Senokot) 2 tab BID GTB Last administered on 11/25/18 20:34; Admin Dose 2 TAB; Start 11/12/18 at 09:30 Sucralfate (Carafate Susp) 1 gm QID GTB Last administered on 11/25/18 20:33; Admin Dose 1 GM; Start 11/12/18 at 13:00 Valproate Sodium (Depakene Liquid Cup) 500 mg Q8 GTB Last administered on 11/25 21:15; Admin Dose 500 MG; Start 11/12/18 at 10:00 Insulin Human NPH (Humulin N) 28 unit Q8 SC Last administered on 11/25/18 21:25; Admin Dose 28 UNIT; Start 11/12/18 at 10:00 Sodium Biphosphate/ Sodium Phosphate (Fleet Enema) 133 ml DAILY PRN [place] CONSTIPATION; Start 11/12/18 at 10:00 Lisinopril (Zestril) 10 mg DAILY GTB Last administered on 11/25/18at 09:00; Admin Dose 10 MG; Start 11/14/18 at 09:00 Albuterol/ Ipratropium (Duoneb) 3 ml Q6H RESP THERAPY PRN HHN SHORTNESS OF BREATH Last administered on 11/25/18 20:25; Admin Dose 3 ML; Start 11/13/18 at 21:00 Vancomycin HCl (Vanco Iv Per Pharmacy) VANCOMYCIN PER PHARMA... PER PROTOCOL XX ; Start 11/17/18 at 13:00; Stop 12/01/18 at 12:59 Vancomycin HCl 1.25 gm/Sodium Chloride 250 ml @ 83.333 mls/ hr Q12H IVPB Last administered on 11/25/18at 13:58; Admin Dose 83.333 MLS/HR; Start 11/18/18 at 03:00; Stop 12/01/18 at 12:59 Carvedilol (Coreg) 12.5 mg BID GTB Last administered on 11/25/18at 20:34; Admin Dose 12.5 MG; Start 11/19/18 at 21:00 BABATUNDE KENNEY MD Nov 25, 2018 22:02
[2018-11-26] VITALS (14 sets, daily range): BP systolic 109–129; BP diastolic 58–71; PULSE 68–87; RESP 16–21
[2018-11-26] MEDS: INSULIN ASPART [NOVOLOG] 3 ML PEN SC SCH ×6 (00:44→21:00)
[2018-11-26] MEDS: VANCOMYCIN HCL 1.25 GM in SOD CHLORIDE 0.9% 250 ML IVPB SCH ×2 (03:43→15:32)
[2018-11-26] MEDS: LANSOPRAZOLE 30 MG CAP GTB SCH ×2 (05:18→17:55)
[2018-11-26] MEDS: VALPROIC ACID LIQUID CUP 250 MG/5 ML CUP GTB SCH ×3 (05:18→22:02)
--- NOTE | 2018-11-26 05:37 | PN ---
Date/Time of Note Date/Time of Note DATE: 11/26/18 TIME: 05:36 Assessment/Plan VTE Prophylaxis Risk score (from Ns)>0 risk: 7 SCD applied (from [facility]): Yes SCD contraindicated: other Pharmacological prophylaxis: other Pharm contraindication: other Lines/Catheters IV Catheter Type (from [facility]): Peripheral IV Urinary Cath still in place: Yes Reason Cath still needed: urinary retention Assessment/Plan Assessment/Plan -Hyponatremia. Dr. Betts, nephrology consultation. -Diarrhea, will check stool for C. difficile. -Intracranial hemorrhage, Dr. Espana is following in neurosurgery consultation. Family does not want any aggressive treatment. -Sepsis with fever and leukocytosis most likely secondary to HCAP, resolved. Completed treatment with antibiotics for pneumonia. Dr. Kiran is following in infection disease consultation. -MRSA bacteremia, continue Vanco until 12/01/18. -Recent history of right hemicraniectomy, details are not available. Records requested. -Chronic respiratory failure with tracheostomy, patient is currently on T-tube. -Healthcare associated pneumonia, continue antibiotics. -Coronary artery disease, status post PTCA with stent placement -Ischemic cardiomyopathy -Diabetes -Dysphagia with G-tube -Dyslipidemia -Obesity with BMI of 35.3 -DNR status Further recommendations depends on clinical course. Plan of care discussed with Dr. Cortez. Result Diagram: 11/23/18 0725 11/25/18 0718 Results 24hrs Laboratory Tests Test 11/25/18 07:18 11/25/18 08:58 11/25/18 13:59 11/25/18 17:20 Sodium Level 125 L Potassium Level 4.4 Chloride Level 93 L Carbon Dioxide Level 27 Anion Gap 5 Blood Urea Nitrogen 15 Creatinine 0.41 L Est Glomerular Filtrat > 60 Rate mL/min Glucose Level 139 Calcium Level 8.0 L Bedside Glucose 136 127 130 Test 11/25/18 21:12 11/26/18 00:38 11/26/18 05:16 Bedside Glucose 116 144 117 Subjective 24 Hr Interval Summary Free Text/Dictation nad; vss comfortable on T-Tube no events overnight SNF placement when stable Exam/Review of Systems Exam Vitals Vital Signs Date Temp Pulse Resp B/P (MAP) Pulse Ox O2 O2 Flow FiO2 Time Delivery Rate 11/26/18 98.3 80 20 118/71 100 04:35 (87) 11/26/18 Aerosol 5.0 28 00:54 T Tube Intake and Output 11/25/18 11/25/18 11/26/18 1515:00 23:00 07:00 IntakeIntake Total 1150 ml OutputOutput Total 30 ml 1500 ml BalanceBalance -30 ml -350 ml Constitutional: well developed, non-verbal Psych: nl mood/affect Eyes: nl sclera ENMT: nl external ears & nose Neck: other (trach intact) Respiratory: clear to auscultation Cardiovascular: nl pulses, other (s1s2) Gastrointestinal: soft Musculoskeletal: muscle weakness Neurological: unresponsive Results Results 24hrs Laboratory Tests Test 11/25/18 07:18 11/25/18 08:58 11/25/18 13:59 11/25/18 17:20 Sodium Level 125 L Potassium Level 4.4 Chloride Level 93 L Carbon Dioxide Level 27 Anion Gap 5 Blood Urea Nitrogen 15 Creatinine 0.41 L Est Glomerular Filtrat > 60 Rate mL/min Glucose Level 139 Calcium Level 8.0 L Bedside Glucose 136 127 130 Test 11/25/18 21:12 11/26/18 00:38 11/26/18 05:16 Bedside Glucose 116 144 117 Medications Medication Current Medications Ondansetron HCl (Zofran Inj) 4 mg Q6H PRN IV NAUSEA AND/OR VOMITING; Start 11/11/18 at 23:00 Acetaminophen (Tylenol Liquid) 650 mg Q6H PRN PO FEVER Last administered on 11/20/18at 03:38; Admin Dose 650 MG; Start 11/11/18 at 23:00 Morphine Sulfate (morphine) 2 mg Q4H PRN IV PAIN LEVEL 7-10 Last administered on 11/12/18at 05:26; Admin Dose 2 MG; Start 11/11/18 at 23:00 Insulin Aspart (Novolog Insulin Pen) NOVOLOG *MODERATE* ALGORI... Q4 SC Last administered on 11/26/18at 00:44; Admin Dose 2 UNIT; Start 11/12/18 at 05:00 Miscellaneous Information 1 ea NOTE XX ; Start 11/12/18 at 03:00 Glucose (Glutose) 15 gm Q15M PRN PO DECREASED GLUCOSE; Start 11/12/18 at 03:00 Glucose (Glutose) 22.5 gm Q15M PRN PO DECREASED GLUCOSE; Start 11/12/18 at 03:00 Dextrose (D50w Syringe) 25 ml Q15M PRN IV DECREASED GLUCOSE; Start 11/12/18 at 03:00 Dextrose (D50w Syringe) 50 ml Q15M PRN IV DECREASED GLUCOSE; Start 11/12/18 at 03:00 Glucagon (Glucagen) 1 mg Q15M PRN IM DECREASED GLUCOSE; Start 11/12/18 at 03:00 Glucose (Glutose) 15 gm Q15M PRN BUCCAL DECREASED GLUCOSE; Start 11/12/18 at 03:00 Acetaminophen (Tylenol Tab) 650 mg Q4H PRN GTB MILD PAIN LEVEL 1-3 Last administered on 11/17/18 05:29; Admin Dose 650 MG; Start 11/12/18 at 09:30 Acetylcysteine (Mucomyst) 3 ml BID RESP THERAPY NEB Last administered on 11/25/18 20:25; Admin Dose 3 ML; Start 11/12/18 at 10:00 Atorvastatin Calcium (Lipitor) 80 mg QHS GTB Last administered on 11/25/18 20:34; Admin Dose 80 MG; Start 11/12/18 at 21:00 Bisacodyl (Dulcolax Supp) 10 mg Q24H PRN [place] CONSTIPATION; Start 11/12/18 at 09:30 Hydralazine HCl (Apresoline) 25 mg Q6 GTB Last administered on 11/25/18 23:31; Admin Dose 25 MG; Start 11/12/18 at 12:00 Lansoprazole (Prevacid) 30 mg BID@0600,1800 GTB Last administered on 11/25/18 17:21; Admin Dose 30 MG; Start 11/12/18 at 18:00 Senna (Senokot) 2 tab BID GTB Last administered on 11/25/18 20:34; Admin Dose 2 TAB; Start 11/12/18 at 09:30 Sucralfate (Carafate Susp) 1 gm QID GTB Last administered on 11/25/18 20:33; Admin Dose 1 GM; Start 11/12/18 at 13:00 Valproate Sodium (Depakene Liquid Cup) 500 mg Q8 GTB Last administered on 11/25/18 21:15; Admin Dose 500 MG; Start 11/12/18 at 10:00 Insulin Human NPH (Humulin N) 28 unit Q8 SC Last administered on 11/25/18 21:25; Admin Dose 28 UNIT; Start 11/12/18 at 10:00 Sodium Biphosphate/ Sodium Phosphate (Fleet Enema) 133 ml DAILY PRN [place] CONSTIPATION; Start 11/12/18 at 10:00 Lisinopril (Zestril) 10 mg DAILY GTB Last administered on 11/25/18at 09:00; Admin Dose 10 MG; Start 11/14/18 at 09:00 Albuterol/ Ipratropium (Duoneb) 3 ml Q6H RESP THERAPY PRN HHN SHORTNESS OF BREATH Last administered on 11/25/18 20:25; Admin Dose 3 ML; Start 11/13/18 at 21:00 Vancomycin HCl (Vanco Iv Per Pharmacy) VANCOMYCIN PER PHARMA... PER PROTOCOL XX ; Start 11/17/18 at 13:00; Stop 12/01/18 at 12:59 Vancomycin HCl 1.25 gm/Sodium Chloride 250 ml @ 83.333 mls/ hr Q12H IVPB Last administered on 11/26/18at 03:43; Admin Dose 83.333 MLS/HR; Start 11/18/18 at 03:00; Stop 12/01/18 at 12:59 Carvedilol (Coreg) 12.5 mg BID GTB Last administered on 11/25/18at 20:34; Admin Dose 12.5 MG; Start 11/19/18 at 21:00 REGINA BUI Nov 26, 2018 05:37
[2018-11-26] MEDS: NPH, HUMAN INSULIN ISOPHANE 3ML VIAL SC SCH ×3 (06:21→22:21)
[2018-11-26] MEDS: SUCRALFATE (100 MG/ML) 10ML CUP GTB SCH ×4 (09:02→20:07)
[2018-11-26] MEDS: SENNA TAB GTB SCH ×2 (09:02→20:08)
[2018-11-26] MEDS: LISINOPRIL 5 MG TAB GTB SCH (09:03)
[2018-11-26] MEDS: ACETYLCYSTEINE 20% 4 ML VIAL NEB SCH ×2 (09:03→19:58)
--- NOTE | 2018-11-26 10:47 | CONS ---
Assessment/Plan Assessment/Plan Hospital Course (Demo Recall) - intermittent fever due to bacteremia and possible HCAP - resolved - bacteremia due to MRSA on 11/15/2018; repeat blood cx on 11/17/2018 were negative - possible HCAP, however, given the polymicrobial growth of his resp culture, all bacteria may be colonizers of the airway: providencia, proteus, pseudomonas, group B strep, klebsiella; repeat trach asp cx 11/17/2018 grew pseudomonas and proteus; Pt completed pip/tazo (11/15/2018-11/17/2018) and cefepime (11/18/2018- 11/22/18) - h/o CVA. 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 [id number] lobes; stable large subacute R frontal temporal parietal intraparenchymal hemorrhage, plus en cephalomalacia/gliosis; stable moderate to severe ventriculomegaly; moderate b/l occipital horn acute intraventricular hemorrhage; chronic R paracentral pontine infarction; small chronic R cerebellar infarctions; L temporal lobe with associated encephalomalacia/gliosis within this region as well as laminar necrosis; moderate chronic microvascular ischemic changes; basilar dolichoectasia; extensive bilateral mastoid air cell effusions - aerococci in urine culture on 11/14/2018, probable colonization - chronic hypoxic resp failure - h/o tracheostomy placement - unresponsive state due to extensive CVA - diarrhea - on senna - dry scaly skin Recommendations - continue IV vancomycin (re-start 11/17/2018-12/01/2018) for bacteremia due to MRSA; plan for 14 days - start chlorhexidine bed bath daily followed by moisturizer (ordered) - monitor skin for rash Management discussed BRADLEY Thompson and with Dr. Kiran Consultation Date/Type/Reason Admit Date/Time November 11, 2018 at 22:51 Initial Consult Date 11/15/18 Type of Consult Infectious Disease Requesting Provider: NIA DOMINGO MD Date/Time of Note DATE: 11/26/18 TIME: 10:47 24 HR Interval Summary Free Text/Dictation No acute issues per d/w nursing. Subjective hx not possible: pt non-verbal Exam/Review of Systems Exam Vitals Vital Signs Date Temp Pulse Resp B/P (MAP) Pulse Ox O2 O2 Flow FiO2 Time Delivery Rate 11/26/18 71 08:12 11/26/18 98.4 18 129/69 100 Trach 07:45 (89) Collar 11/26/18 5.0 28 05:55 Intake and Output 11/25/18 11/25/18 11/26/18 1515:00 23:00 07:00 IntakeIntake Total 1150 ml 1330 ml OutputOutput Total 30 ml 1500 ml 900 ml BalanceBalance -30 ml -350 ml 430 ml Exam Constitutional: well developed, non-verbal, frail, obese, other (chronically debilitated) Psych: other (unable to assess) Head: other (craniectomy scar well healed, but site is full) Eyes: nl conjunctiva, nl lids ENMT: nl external ears & nose, nl nasal mucosa & septum, other (unable to examine OP) Neck: other (trach is midline and connected to T-piece) Respiratory: diminished breath sounds (coarse breath sounds with ); No wheezing Cardiovascular: regular rate and rhythm, nl pulses Gastrointestinal: soft, non-tender, other (G-tube intact; Rectal tube with liquid brown stool); No distended Genitourinary - Male: nl penis, nl scrotum, other (Nelson catheter intact with clear carlos manuel urine) Musculoskeletal: nl extremities to inspection, other (stiff to ROM) Extremities: No edema Neurological: unresponsive (withdraws to pain) Skin: nl turgor, rash or lesions (pt with erythematous rash noted from photos on 11/19/2018, currently no significant erythema noted. Pt has significant dry, scaly, and flaky skin to L hand and back, L >R), other (multiple tattoos) Results Result Diagram: 11/26/18 0834 11/26/18 0834 Results 24hrs Laboratory Tests Test 11/25/18 13:59 11/25/18 17:20 11/25/18 21:12 11/26/18 00:38 Bedside Glucose 127 130 116 144 Test 11/26/18 05:16 11/26/18 06:55 11/26/18 08:34 11/26/18 09:00 Bedside Glucose 117 102 Lab Scanned Report REFERENCE LAB White Blood Count 8.7 Red Blood Count 3.77 L Hemoglobin 10.3 L Hematocrit 32.1 L Mean Corpuscular 85.1 Volume Mean Corpuscular 27.3 L Hemoglobin Mean Corpuscular 32.1 Hemoglobin Concent Red Cell Distribution 15.6 H Width Platelet Count 305 Mean Platelet Volume 10.3 Immature Granulocytes 0.900 H % Neutrophils % 63.6 Lymphocytes % 13.5 L Monocytes % 7.6 Eosinophils % 14.2 H Basophils % 0.2 Nucleated Red Blood 0.0 Cells % Immature Granulocytes 0.080 H # Neutrophils # 5.5 Lymphocytes # 1.2 Monocytes # 0.7 Eosinophils # 1.2 H Basophils # 0.0 Nucleated Red Blood 0.0 Cells # Sodium Level 127 L Potassium Level 4.3 Chloride Level 92 L Carbon Dioxide Level 31 Anion Gap 4 L Blood Urea Nitrogen 17 Creatinine 0.43 L Est Glomerular > 60 Filtrat Rate mL/min Glucose Level 107 Calcium Level 8.2 L Medications Medication Current Medications Ondansetron HCl (Zofran Inj) 4 mg Q6H PRN IV NAUSEA AND/OR VOMITING; Start 11/11/18 at 23:00 Acetaminophen (Tylenol Liquid) 650 mg Q6H PRN PO FEVER Last administered on 11/20/18at 03:38; Admin Dose 650 MG; Start 11/11/18 at 23:00 Morphine Sulfate (morphine) 2 mg Q4H PRN IV PAIN LEVEL 7-10 Last administered on 11/12/18at 05:26; Admin Dose 2 MG; Start 11/11/18 at 23:00 Insulin Aspart (Novolog Insulin Pen) NOVOLOG *MODERATE* ALGORI... Q4 SC Last administered on 11/26/18at 00:44; Admin Dose 2 UNIT; Start 11/12/18 at 05:00 Miscellaneous Information 1 ea NOTE XX ; Start 11/12/18 at 03:00 Glucose (Glutose) 15 gm Q15M PRN PO DECREASED GLUCOSE; Start 11/12/18 at 03:00 Glucose (Glutose) 22.5 gm Q15M PRN PO DECREASED GLUCOSE; Start 11/12/18 at 03:00 Dextrose (D50w Syringe) 25 ml Q15M PRN IV DECREASED GLUCOSE; Start 11/12/18 at 03:00 Dextrose (D50w Syringe) 50 ml Q15M PRN IV DECREASED GLUCOSE; Start 11/12/18 at 03:00 Glucagon (Glucagen) 1 mg Q15M PRN IM DECREASED GLUCOSE; Start 11/12/18 at 03:00 Glucose (Glutose) 15 gm Q15M PRN BUCCAL DECREASED GLUCOSE; Start 11/12/18 at 03:00 Acetaminophen (Tylenol Tab) 650 mg Q4H PRN GTB MILD PAIN LEVEL 1-3 Last administered on 11/17/18 05:29; Admin Dose 650 MG; Start 11/12/18 at 09:30 Acetylcysteine (Mucomyst) 3 ml BID RESP THERAPY NEB Last administered on 11/26/18 09:03; Admin Dose 3 ML; Start 11/12/18 at 10:00 Atorvastatin Calcium (Lipitor) 80 mg QHS GTB Last administered on 11/25/18 20:34; Admin Dose 80 MG; Start 11/12/18 at 21:00 Bisacodyl (Dulcolax Supp) 10 mg Q24H PRN [place] CONSTIPATION; Start 11/12/18 at 09:30 Hydralazine HCl (Apresoline) 25 mg Q6 GTB Last administered on 11/26/18 05:18; Admin Dose 25 MG; Start 11/12/18 at 12:00 Lansoprazole (Prevacid) 30 mg BID@0600,1800 GTB Last administered on 11/26/18 05:18; Admin Dose 30 MG; Start 11/12/18 at 18:00 Senna (Senokot) 2 tab BID GTB Last administered on 11/26/18 09:02; Admin Dose 2 TAB; Start 11/12/18 at 09:30 Sucralfate (Carafate Susp) 1 gm QID GTB Last administered on 11/26/18 09:02; Admin Dose 1 GM; Start 11/12/18 at 13:00 Valproate Sodium (Depakene Liquid Cup) 500 mg Q8 GTB Last administered on 11/26/18 05:18; Admin Dose 500 MG; Start 11/12/18 at 10:00 Insulin Human NPH (Humulin N) 28 unit Q8 SC Last administered on 11/26/18 06:21; Admin Dose 28 UNIT; Start 11/12/18 at 10:00 Sodium Biphosphate/ Sodium Phosphate (Fleet Enema) 133 ml DAILY PRN LA C ONSTIPATION; Start 11/12/18 at 10:00 Lisinopril (Zestril) 10 mg DAILY GTB Last administered on 6/7/19at 09:03; Admin Dose 10 MG; Start 11/14/18 at 09:00 Albuterol/ Ipratropium (Duoneb) 3 ml Q6H RESP THERAPY PRN HHN SHORTNESS OF BREATH Last administered on 11/25/18at 20:25; Admin Dose 3 ML; Start 11/13/18 at 21:00 Vancomycin HCl (Vanco Iv Per Pharmacy) VANCOMYCIN PER PHARMA... PER PROTOCOL XX ; Start 11/17/18 at 13:00; Stop 12/01/18 at 12:59 Vancomycin HCl 1.25 gm/Sodium Chloride 250 ml @ 83.333 mls/ hr Q12H IVPB Last administered on 11/26/18at 03:43; Admin Dose 83.333 MLS/HR; Start 11/18/18 at 03:00; Stop 12/01/18 at 12:59 Carvedilol (Coreg) 12.5 mg BID GTB Last administered on 11/26/18at 09:03; Admin Dose 12.5 MG; Start 11/19/18 at 21:00 BISHNU ACOSTA NP Nov 26, 2018 10:47
--- NOTE | 2018-11-26 10:57 | CONS ---
Assessment/Plan Assessment/Plan Assessment/Plan (Daily) 1. 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 Sepsis due to possible HCAP and MRSA bacteremia 3. MRSA bacteremia 4. Possible HCAP 5. Intracranial hemorrhage - family decided for conservative management 6. h/o large CVA with subsequent vegetative state 7. Chronic respiratory failure s/p Tracheostomy 8 S/p G tube placemen t Plan: IV abx vancomycin as per ID for MRSA bacteremia, Renally dose all abx and monitor electrolytes BP stable with corege 12.5 mg PO BID and , lisinopril 10mg po daily Na imrpvoed to 127 today, will give IVF NS at 70 cc/hr x 2 liter then stop will follow up Consultation Date/Type/Reason Admit Date/Time November 11, 2018 at 22:51 Initial Consult Date 11/25/18 Type of Consult NEPHROLOGY Requesting Provider: NIA DOMINGO MD Date/Time of Note DATE: 11/26/18 TIME: 10:57 24 HR Interval Summary Free Text/Dictation Na improved to 127, stable BP, Remained non verbal vegetative state , afebrile Exam/Review of Systems Exam Vitals Vital Signs Date Temp Pulse Resp B/P (MAP) Pulse Ox O2 O2 Flow FiO2 Time Delivery Rate 11/26/18 71 08:12 11/26/18 98.4 18 129/69 100 Trach 07:45 (89) Collar 11/26/18 5.0 28 05:55 Intake and Output 11/25/18 11/25/18 11/26/18 1515:00 23:00 07:00 IntakeIntake Total 1150 ml 1330 ml OutputOutput Total 30 ml 1500 ml 900 ml BalanceBalance -30 ml -350 ml 430 ml Exam Constitutional: non-verbal, frail Head: other (Status post right craniectomy) Neck: other (Trach) Respiratory: diminished breath sounds Cardiovascular: regular rate and rhythm Gastrointestinal: soft, non-tender, other (G-tube) Musculoskeletal: muscle weakness Extremities: normal pulses Neurological: other (Noncommunicative) Skin: nl turgor Results Result Diagram: 11/26/18 0834 11/26/18 0834 Results 24hrs Laboratory Tests Test 11/25/18 13:59 11/25/18 17:20 11/25/18 21:12 11/26/18 00:38 Bedside Glucose 127 130 116 144 Test 11/26/18 05:16 11/26/18 06:55 11/26/18 08:34 11/26/18 09:00 Bedside Glucose 117 102 Lab Scanned Report REFERENCE LAB White Blood Count 8.7 Red Blood Count 3.77 L Hemoglobin 10.3 L Hematocrit 32.1 L Mean Corpuscular 85.1 Volume Mean Corpuscular 27.3 L Hemoglobin Mean Corpuscular 32.1 Hemoglobin Concent Red Cell Distribution 15.6 H Width Platelet Count 305 Mean Platelet Volume 10.3 Immature Granulocytes 0.900 H % Neutrophils % 63.6 Lymphocytes % 13.5 L Monocytes % 7.6 Eosinophils % 14.2 H Basophils % 0.2 Nucleated Red Blood 0.0 Cells % Immature Granulocytes 0.080 H # Neutrophils # 5.5 Lymphocytes # 1.2 Monocytes # 0.7 Eosinophils # 1.2 H Basophils # 0.0 Nucleated Red Blood 0.0 Cells # Sodium Level 127 L Potassium Level 4.3 Chloride Level 92 L Carbon Dioxide Level 31 Anion Gap 4 L Blood Urea Nitrogen 17 Creatinine 0.43 L Est Glomerular > 60 Filtrat Rate mL/min Glucose Level 107 Calcium Level 8.2 L Medications Medication Current Medications Ondansetron HCl (Zofran Inj) 4 mg Q6H PRN IV NAUSEA AND/OR VOMITING; Start 11/11/18 at 23:00 Acetaminophen (Tylenol Liquid) 650 mg Q6H PRN PO FEVER Last administered on 11/20/18at 03:38; Admin Dose 650 MG; Start 11/11/18 at 23:00 Morphine Sulfate (morphine) 2 mg Q4H PRN IV PAIN LEVEL 7-10 Last administered on 11/12/18at 05:26; Admin Dose 2 MG; Start 11/11/18 at 23:00 Insulin Aspart (Novolog Insulin Pen) NOVOLOG *MODERATE* ALGORI... Q4 SC Last administered on 11/26/18at 00:44; Admin Dose 2 UNIT; Start 11/12/18 at 05:00 Miscellaneous Information 1 ea NOTE XX ; Start 11/12/18 at 03:00 Glucose (Glutose) 15 gm Q15M PRN PO DECREASED GLUCOSE; Start 11/12/18 at 03:00 Glucose (Glutose) 22.5 gm Q15M PRN PO DECREASED GLUCOSE; Start 11/12/18 at 03:00 Dextrose (D50w Syringe) 25 ml Q15M PRN IV DECREASED GLUCOSE; Start 11/12/18 at 03:00 Dextrose (D50w Syringe) 50 ml Q15M PRN IV DECREASED GLUCOSE; Start 11/12/18 at 03:00 Glucagon (Glucagen) 1 mg Q15M PRN IM DECREASED GLUCOSE; Start 11/12/18 at 03:00 Glucose (Glutose) 15 gm Q15M PRN BUCCAL DECREASED GLUCOSE; Start 11/12/18 at 03:00 Acetaminophen (Tylenol Tab) 650 mg Q4H PRN GTB MILD PAIN LEVEL 1-3 Last administered on 11/17/18 05:29; Admin Dose 650 MG; Start 11/12/18 at 09:30 Acetylcysteine (Mucomyst) 3 ml BID RESP THERAPY NEB Last administered on 11/26/18 09:03; Admin Dose 3 ML; Start 11/12/18 at 10:00 Atorvastatin Calcium (Lipitor) 80 mg QHS GTB Last administered on 11/25/18 20:34; Admin Dose 80 MG; Start 11/12/18 at 21:00 Bisacodyl (Dulcolax Supp) 10 mg Q24H PRN IN CONSTIPATION; Start 11/12/18 at 09:30 Hydralazine HCl (Apresoline) 25 mg Q6 GTB Last administered on 11/26/18 05:18; Admin Dose 25 MG; Start 11/12/18 at 12:00 Lansoprazole (Prevacid) 30 mg BID@0600,1800 GTB Last administered on 11/26/18 05:18; Admin Dose 30 MG; Start 11/12/18 at 18:00 Senna (Senokot) 2 tab BID GTB Last administered on 11/26/18 09:02; Admin Dose 2 TAB; Start 11/12/18 at 09:30 Sucralfate (Carafate Susp) 1 gm QID GTB Last administered on 11/26/18 09:02; Admin Dose 1 GM; Start 11/12/18 at 13:00 Valproate Sodium (Depakene Liquid Cup) 500 mg Q8 GTB Last administered on 11/26/18 05:18; Admin Dose 500 MG; Start 11/12/18 at 10:00 Insulin Human NPH (Humulin N) 28 unit Q8 SC Last administered on 11/26/18 06:21; Admin Dose 28 UNIT; Start 11/12/18 at 10:00 Sodium Biphosphate/ Sodium Phosphate (Fleet Enema) 133 ml DAILY PRN IN CONSTIPATION; Start 11/12/18 at 10:00 Lisinopril (Zestril) 10 mg DAILY GTB Last administered on 11/26/18 09:03; Admin Dose 10 MG; Start 11/14/18 at 09:00 Albuterol/ Ipratropium (Duoneb) 3 ml Q6H RESP THERAPY PRN HHN SHORTNESS OF BREATH Last administered on 11/25/18at 20:25; Admin Dose 3 ML; Start 11/13/18 at 21:00 Vancomycin HCl (Vanco Iv Per Pharmacy) VANCOMYCIN PER PHARMA... PER PROTOCOL XX ; Start 11/17/18 at 13:00; Stop 12/01/18 at 12:59 Vancomycin HCl 1.25 gm/Sodium Chloride 250 ml @ 83.333 mls/ hr Q12H IVPB Last administered on 11/26/18at 03:43; Admin Dose 83.333 MLS/HR; Start 11/18/18 at 03:00; Stop 12/01/18 at 12:59 Carvedilol (Coreg) 12.5 mg BID GTB Last administered on 11/26/18at 09:03; Admin Dose 12.5 MG; Start 11/19/18 at 21:00 BABATUNDE KENNEY MD Nov 26, 2018 10:57
--- NOTE | 2018-11-26 13:54 | CONS ---
Consult Date/Type/Reason Admit Date/Time November 11, 2018 at 22:51 Initial Consult Date 11/14/18 Type of Consult Pulmonary Requesting Provider: NIA DOMINGO MD Date/Time of Note DATE: 11/26/18 TIME: 13:50 Subjective Patient stable no respiratory distress. Objective Vital Signs Date Temp Pulse Resp B/P (MAP) Pulse Ox O2 O2 Flow FiO2 Time Delivery Rate 11/26/18 71 13:07 11/26/18 98.3 16 109/59 100 Trach 11:19 (76) Collar 11/26/18 5.0 28 05:55 Intake and Output 11/25/18 11/25/18 11/26/18 1515:00 23:00 07:00 IntakeIntake Total 1150 ml 1330 ml OutputOutput Total 30 ml 1500 ml 900 ml BalanceBalance -30 ml -350 ml 430 ml Exam GENERAL: Chronically ill-appearing gentleman on cool aerosol VITAL SIGNS: per chart NECK: Supple. No JVD or lymphadenopathy. CARDIAC EXAM: S1, S2. No added sounds or murmurs. CHEST: Diminished air entry bilaterally ABDOMEN: Soft, nontender. No guarding or rebound. EXTREMITIES: No cyanosis, clubbing or edema. NEUROLOGIC: Unable to assess Vent Setting Fraction of Inspired Oxygen pe: 28 Results/Medications Result Diagram: 11/26/18 0834 11/26/18 0834 Results 24 hrs Laboratory Tests Test 11/25/18 13:59 11/25/18 17:20 11/25/18 21:12 11/26/18 00:38 Bedside Glucose 127 130 116 144 Test 11/26/18 05:16 11/26/18 06:55 11/26/18 08:34 11/26/18 09:00 Bedside Glucose 117 102 Lab Scanned Report REFERENCE LAB White Blood Count 8.7 Red Blood Count 3.77 L Hemoglobin 10.3 L Hematocrit 32.1 L Mean Corpuscular 85.1 Volume Mean Corpuscular 27.3 L Hemoglobin Mean Corpuscular 32.1 Hemoglobin Concent Red Cell Distribution 15.6 H Width Platelet Count 305 Mean Platelet Volume 10.3 Immature Granulocytes 0.900 H % Neutrophils % 63.6 Lymphocytes % 13.5 L Monocytes % 7.6 Eosinophils % 14.2 H Basophils % 0.2 Nucleated Red Blood 0.0 Cells % Immature Granulocytes 0.080 H # Neutrophils # 5.5 Lymphocytes # 1.2 Monocytes # 0.7 Eosinophils # 1.2 H Basophils # 0.0 Nucleated Red Blood 0.0 Cells # Sodium Level 127 L Potassium Level 4.3 Chloride Level 92 L Carbon Dioxide Level 31 Anion Gap 4 L Blood Urea Nitrogen 17 Creatinine 0.43 L Est Glomerular > 60 Filtrat Rate mL/min Glucose Level 107 Calcium Level 8.2 L Test 11/26/18 13:01 Bedside Glucose 94 Medications Current Medications Ondansetron HCl (Zofran Inj) 4 mg Q6H PRN IV NAUSEA AND/OR VOMITING; Start 11/11/18 at 23:00 Acetaminophen (Tylenol Liquid) 650 mg Q6H PRN PO FEVER Last administered on 11/20/18at 03:38; Admin Dose 650 MG; Start 11/11/18 at 23:00 Morphine Sulfate (morphine) 2 mg Q4H PRN IV PAIN LEVEL 7-10 Last administered on 11/12/18at 05:26; Admin Dose 2 MG; Start 11/11/18 at 23:00 Insulin Aspart (Novolog Insulin Pen) NOVOLOG *MODERATE* ALGORI... Q4 SC Last administered on 11/26/18at 00:44; Admin Dose 2 UNIT; Start 11/12/18 at 05:00 Miscellaneous Information 1 ea NOTE XX ; Start 11/12/18 at 03:00 Glucose (Glutose) 15 gm Q15M PRN PO DECREASED GLUCOSE; Start 11/12/18 at 03:00 Glucose (Glutose) 22.5 gm Q15M PRN PO DECREASED GLUCOSE; Start 11/12/18 at 03:00 Dextrose (D50w Syringe) 25 ml Q15M PRN IV DECREASED GLUCOSE; Start 11/12/18 at 03:00 Dextrose (D50w Syringe) 50 ml Q15M PRN IV DECREASED GLUCOSE; Start 11/12/18 at 03:00 Glucagon (Glucagen) 1 mg Q15M PRN IM DECREASED GLUCOSE; Start 11/12/18 at 03:00 Glucose (Glutose) 15 gm Q15M PRN BUCCAL DECREASED GLUCOSE; Start 11/12/18 at 03:00 Acetaminophen (Tylenol Tab) 650 mg Q4H PRN GTB MILD PAIN LEVEL 1-3 Last administered on 11/17/18at 05:29; Admin Dose 650 MG; Start 11/12/18 at 09:30 Acetylcysteine (Mucomyst) 3 ml BID RESP THERAPY NEB Last administered on 11/26/18 09:03; Admin Dose 3 ML; Start 11/12/18 at 10:00 Atorvastatin Calcium (Lipitor) 80 mg QHS GTB Last administered on 11/25/18 20:34; Admin Dose 80 MG; Start 11/12/18 at 21:00 Bisacodyl (Dulcolax Supp) 10 mg Q24H PRN [place] CONSTIPATION; Start 11/12/18 at 09:30 Hydralazine HCl (Apresoline) 25 mg Q6 GTB Last administered on 11/26/18 13:01; Admin Dose 25 MG; Start 11/12/18 at 12:00 Lansoprazole (Prevacid) 30 mg BID@0600,1800 GTB Last administered on 11/26/18 05:18; Admin Dose 30 MG; Start 11/12/18 at 18:00 Senna (Senokot) 2 tab BID GTB Last administered on 11/26/18 09:02; Admin Dose 2 TAB; Start 11/12/18 at 09:30 Sucralfate (Carafate Susp) 1 gm QID GTB Last administered on 11/26/18 13:01; Admin Dose 1 GM; Start 11/12/18 at 13:00 Valproate Sodium (Depakene Liquid Cup) 500 mg Q8 GTB Last administered on 11/26/18 13:00; Admin Dose 500 MG; Start 11/12/18 at 10:00 Insulin Human NPH (Humulin N) 28 unit Q8 SC Last administered on 11/26/18 13:10; Admin Dose 28 UNIT; Start 11/12/18 at 10:00 Sodium Biphosphate/ Sodium Phosphate (Fleet Enema) 133 ml DAILY PRN [place] CONSTIPATION; Start 11/12/18 at 10:00 Lisinopril (Zestril) 10 mg DAILY GTB Last administered on 11/26/18 09:03; Admin Dose 10 MG; Start 11/14/18 at 09:00 Albuterol/ Ipratropium (Duoneb) 3 ml Q6H RESP THERAPY PRN HHN SHORTNESS OF BREATH Last administered on 11/25/18 20:25; Admin Dose 3 ML; Start 11/13/18 at 21:00 Vancomycin HCl (Vanco Iv Per Pharmacy) VANCOMYCIN PER PHARMA... PER PROTOCOL XX ; Start 11/17/18 at 13:00; Stop 12/01/18 at 12:59 Vancomycin HCl 1.25 gm/Sodium Chloride 250 ml @ 83.333 mls/ hr Q12H IVPB Last administered on 11/26/18at 03:43; Admin Dose 83.333 MLS/HR; Start 11/18/18 at 03:00; Stop 12/01/18 at 12:59 Carvedilol (Coreg) 12.5 mg BID GTB Last administered on 11/26/18at 09:03; Admin Dose 12.5 MG; Start 11/19/18 at 21:00 Assessment/Plan Hospital Course (Demo Recall) IMP: 1. Chronic respiratory failure with tracheostomy and T-tube 2. Acute on chronic cerebral hemorrhages. 3. Encephalopathy secondary to above 4. History of seizure disorder, MRI pending. 5. Healthcare associated pneumonia 6. Hyponatremia RECS: 1. Continue cool aerosol via t-tube 2. Antibiotics as per ID 3. Tube feeding as tolerated 4. Renal recommendations Transferred to Antoinechristophe darden from pulmonary standpoint LULU GARCIA MD, [facility] Nov 26, 2018 13:54
--- NOTE | 2018-11-26 15:06 | CONS ---
Assessment/Plan Assessment/Plan Hospital Course (Demo Recall) IMPRESSION: 1. Abnormal electrocardiogram, assess for acute coronary syndrome.-neg trop x 3/EF 30-35% 2. Cardiomyopathy with decreased left ventricular ejection fraction. EF 30-35% by echo this admit 3. Congestive heart failure, systolic, chronic. 4. Hypertension-well controlled 5. Intracranial hemorrhage. 6. Chronic encephalopathy. 7. Prior craniectomy. 8. History of prior PTCA and stent placement. 9. Anemia. 10. Tachycardia-S tach today ? etiology, autonomic dysfunction 11.fevers-defervesced 12. SVT-overnight at 160-170 regular, ? AVNRT. no recurrence mutiple days Recc: -Tele -continue hydralazine/ACEI/coreg -Continue daily lasix and follow volume status closely -Continue statin -ongoing NRSG eval -Rx fevers -Continue abx's and f/u cx data -Now DNR Consultation Date/Type/Reason Admit Date/Time November 11, 2018 at 22:51 Initial Consult Date 11/12/18 Type of Consult Cardiology Reason for Consultation Cardiomyopathy Requesting Provider: NIA DOMINGO MD Date/Time of Note DATE: 11/26/18 TIME: 15:05 Exam/Review of Systems Vital Signs Vitals Vital Signs Date Temp Pulse Resp B/P (MAP) Pulse Ox O2 O2 Flow FiO2 Time Delivery Rate 11/26/18 71 13:07 11/26/18 98.3 16 109/59 100 Trach 11:19 (76) Collar 11/26/18 5.0 28 05:55 Intake and Output 11/25/18 11/25/18 11/26/18 1515:00 23:00 07:00 IntakeIntake Total 1150 ml 1330 ml OutputOutput Total 30 ml 1500 ml 900 ml BalanceBalance -30 ml -350 ml 430 ml Exam Exam Review of Systems: CONSTITUTIONAL: No fevers, chills. PULMONARY: No sob CARDIOVASCULAR: No chest pain/palpitations GASTROINTESTINAL: No nausea/vomiting. GENITOURINARY: No hematuria/dysuria. MUSCULOSKELETAL: No myagias/arthalgias. PSYCHIATRIC: The patient denies depression. NEUROLOGIC: encephalopathic Constitutional: other (encephalopathy) Head: normocephalic ENMT: mucosa pink and moist Neck: supple, jvd (8 cm water) Respiratory: diminished breath sounds (at bases/B) Cardiovascular: regular rate and rhythm Gastrointestinal: soft, non-tender Musculoskeletal: muscle weakness (generalized) Extremities: edema (none) Neurological: unresponsive Labs Result Diagram: 11/26/18 0834 11/26/18 0834 Results 24hrs Laboratory Tests Test 11/25/18 17:20 11/25/18 21:12 11/26/18 00:38 11/26/18 05:16 Bedside Glucose 130 116 144 117 Test 11/26/18 06:55 11/26/18 08:34 11/26/18 09:00 11/26/18 13:01 Lab Scanned Report REFERENCE LAB White Blood Count 8.7 Red Blood Count 3.77 L Hemoglobin 10.3 L Hematocrit 32.1 L Mean Corpuscular 85.1 Volume Mean Corpuscular 27.3 L Hemoglobin Mean Corpuscular 32.1 Hemoglobin Concent Red Cell Distribution 15.6 H Width Platelet Count 305 Mean Platelet Volume 10.3 Immature Granulocytes 0.900 H % Neutrophils % 63.6 Lymphocytes % 13.5 L Monocytes % 7.6 Eosinophils % 14.2 H Basophils % 0.2 Nucleated Red Blood 0.0 Cells % Immature Granulocytes 0.080 H # Neutrophils # 5.5 Lymphocytes # 1.2 Monocytes # 0.7 Eosinophils # 1.2 H Basophils # 0.0 Nucleated Red Blood 0.0 Cells # Sodium Level 127 L Potassium Level 4.3 Chloride Level 92 L Carbon Dioxide Level 31 Anion Gap 4 L Blood Urea Nitrogen 17 Creatinine 0.43 L Est Glomerular > 60 Filtrat Rate mL/min Glucose Level 107 Calcium Level 8.2 L Bedside Glucose 102 94 Medications Medications Current Medications Ondansetron HCl (Zofran Inj) 4 mg Q6H PRN IV NAUSEA AND/OR VOMITING; Start 11/11/18 at 23:00 Acetaminophen (Tylenol Liquid) 650 mg Q6H PRN PO FEVER Last administered on 11/20/18at 03:38; Admin Dose 650 MG; Start 11/11/18 at 23:00 Morphine Sulfate (morphine) 2 mg Q4H PRN IV PAIN LEVEL 7-10 Last administered on 11/12/18at 05:26; Admin Dose 2 MG; Start 11/11/18 at 23:00 Insulin Aspart (Novolog Insulin Pen) NOVOLOG *MODERATE* ALGORI... Q4 SC Last administered on 11/26/18 00:44; Admin Dose 2 UNIT; Start 11/12/18 at 05:00 Miscellaneous Information 1 ea NOTE XX ; Start 11/12/18 at 03:00 Glucose (Glutose) 15 gm Q15M PRN PO DECREASED GLUCOSE; Start 11/12/18 at 03:00 Glucose (Glutose) 22.5 gm Q15M PRN PO DECREASED GLUCOSE; Start 11/12/18 at 03:00 Dextrose (D50w Syringe) 25 ml Q15M PRN IV DECREASED GLUCOSE; Start 11/12/18 at 03:00 Dextrose (D50w Syringe) 50 ml Q15M PRN IV DECREASED GLUCOSE; Start 11/12/18 at 03:00 Glucagon (Glucagen) 1 mg Q15M PRN IM DECREASED GLUCOSE; Start 11/12/18 at 03:00 Glucose (Glutose) 15 gm Q15M PRN BUCCAL DECREASED GLUCOSE; Start 11/12/18 at 03:00 Acetaminophen (Tylenol Tab) 650 mg Q4H PRN GTB MILD PAIN LEVEL 1-3 Last administered on 11/17/18at 05:29; Admin Dose 650 MG; Start 11/12/18 at 09:30 Acetylcysteine (Mucomyst) 3 ml BID RESP THERAPY NEB Last administered on 09:03; Admin Dose 3 ML; Start 11/12/18 at 10:00 Atorvastatin Calcium (Lipitor) 80 mg QHS GTB Last administered on 11/25/18 20:34; Admin Dose 80 MG; Start 11/12/18 at 21:00 Bisacodyl (Dulcolax Supp) 10 mg Q24H PRN [place] CONSTIPATION; Start 11/12/18 at 09:30 Hydralazine HCl (Apresoline) 25 mg Q6 GTB Last administered on 11/26/18 13:01; Admin Dose 25 MG; Start 11/12/18 at 12:00 Lansoprazole (Prevacid) 30 mg BID@0600,1800 GTB Last administered on 11/26/18 05:18; Admin Dose 30 MG; Start 11/12/18 at 18:00 Senna (Senokot) 2 tab BID GTB Last administered on 11/26/18 09:02; Admin Dose 2 TAB; Start 11/12/18 at 09:30 Sucralfate (Carafate Susp) 1 gm QID GTB Last administered on 11/26/18 13:01; A dmin Dose 1 GM; Start 11/12/18 at 13:00 Valproate Sodium (Depakene Liquid Cup) 500 mg Q8 GTB Last administered on 11/26/18 13:00; Admin Dose 500 MG; Start 11/12/18 at 10:00 Insulin Human NPH (Humulin N) 28 unit Q8 SC Last administered on 11/26/18 13:10; Admin Dose 28 UNIT; Start 11/12/18 at 10:00 Sodium Biphosphate/ Sodium Phosphate (Fleet Enema) 133 ml DAILY PRN [place] CONSTIPATION; Start 11/12/18 at 10:00 Lisinopril (Zestril) 10 mg DAILY GTB Last administered on 11/26/18 09:03; Admin Dose 10 MG; Start 11/14/18 at 09:00 Albuterol/ Ipratropium (Duoneb) 3 ml Q6H RESP THERAPY PRN HHN SHORTNESS OF BREATH Last administered on 11/25/18 20:25; Admin Dose 3 ML; Start 11/13/18 at 21:00 Vancomycin HCl (Vanco Iv Per Pharmacy) VANCOMYCIN PER PHARMA... PER PROTOCOL XX ; Start 11/17/18 at 13:00; Stop 12/01/18 at 12:59 Vancomycin HCl 1.25 gm/Sodium Chloride 250 ml @ 83.333 mls/ hr Q12H IVPB Last administered on 11/26/18 03:43; Admin Dose 83.333 MLS/HR; Start 11/18/18 at 03:00; Stop 12/01/18 at 12:59 Carvedilol (Coreg) 12.5 mg BID GTB Last administered on 11/26/18 09:03; Admin Dose 12.5 MG; Start 11/19/18 at 21:00 MAE ROSALES Nov 26, 2018 15:06
[2018-11-26] MEDS: ALBUTEROL/IPRATROPIUM (NEB) 3 ML AMP HHN PRN (19:58)
[2018-11-26] MEDS: SOD CHLORIDE 0.9% 1,000 ML IV SCH (20:06)
[2018-11-26] MEDS: ATORVASTATIN 80 MG TAB GTB SCH (20:07)
[2018-11-27] VITALS (13 sets, daily range): BP systolic 117–137; BP diastolic 60–71; PULSE 79–89; RESP 18–19
[2018-11-27] MEDS: INSULIN ASPART [NOVOLOG] 3 ML PEN SC SCH ×6 (00:18→23:13)
[2018-11-27] MEDS: VANCOMYCIN HCL 1.25 GM in SOD CHLORIDE 0.9% 250 ML IVPB SCH ×2 (03:46→15:20)
[2018-11-27] MEDS: VALPROIC ACID LIQUID CUP 250 MG/5 ML CUP GTB SCH ×3 (05:38→21:08)
[2018-11-27] MEDS: LANSOPRAZOLE 30 MG CAP GTB SCH ×2 (05:38→17:23)
[2018-11-27] MEDS: NPH, HUMAN INSULIN ISOPHANE 3ML VIAL SC SCH ×3 (05:49→23:19)
[2018-11-27] MEDS: ACETYLCYSTEINE 20% 4 ML VIAL NEB SCH ×2 (08:01→20:15)
[2018-11-27] MEDS: ALBUTEROL/IPRATROPIUM (NEB) 3 ML AMP HHN PRN ×2 (08:02→20:15)
--- NOTE | 2018-11-27 08:39 | CONS ---
Assessment/Plan Assessment/Plan Assessment/Plan (Daily) 1. 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 Sepsis due to possible HCAP and MRSA bacteremia 3. MRSA bacteremia 4. Possible HCAP 5. Intracranial hemorrhage - family decided for conservative management 6. h/o large CVA with subsequent vegetative state 7. Chronic respiratory failure s/p Tracheostomy 8 S/p G tube placemen t Plan: IV abx vancomycin as per ID for MRSA bacteremia, Renally dose all abx and monitor electrolytes BP stable with corege 12.5 mg PO BID and , lisinopril 10mg po daily Na imrpvoed to 126 today, on IVF NS will follow up Consultation Date/Type/Reason Admit Date/Time November 11, 2018 at 22:51 Initial Consult Date 11/25/18 Type of Consult NEPHROLOGY Requesting Provider: NIA DOMINGO MD Date/Time of Note DATE: 11/27/18 TIME: 08:38 Exam/Review of Systems Exam Vitals Vital Signs Date Temp Pulse Resp B/P (MAP) Pulse Ox O2 O2 Flow FiO2 Time Delivery Rate 11/27/18 98 5.0 28 08:05 11/27/18 74 22 Aerosol 08:02 11/27/18 98.2 123/62 07:36 (82) Intake and Output 11/26/18 11/26/18 11/27/18 1515:00 23:00 07:00 IntakeIntake Total 610 ml 280 ml 1960 ml OutputOutput Total 1000 ml 1200 ml BalanceBalance 610 ml -720 ml 760 ml Results Result Diagram: 11/26/18 0834 11/27/18 0543 Results 24hrs Laboratory Tests Test 11/26/18 09:00 11/26/18 13:01 11/26/18 17:45 11/26/18 22:02 Bedside Glucose 102 94 112 118 Test 11/27/18 00:08 11/27/18 03:59 11/27/18 05:37 11/27/18 05:43 Bedside Glucose 172 124 120 Sodium Level 126 L Potassium Level 4.3 Chloride Level 94 L Carbon Dioxide Level 29 Anion Gap 3 L Blood Urea Nitrogen 15 Creatinine 0.44 L Est Glomerular Filtrat > 60 Rate mL/min Glucose Level 123 Calcium Level 8.3 L Medications Medication Current Medications Ondansetron HCl (Zofran Inj) 4 mg Q6H PRN IV NAUSEA AND/OR VOMITING; Start 11/11/18 at 23:00 Acetaminophen (Tylenol Liquid) 650 mg Q6H PRN PO FEVER Last administered on 11/20/18at 03:38; Admin Dose 650 MG; Start 11/11/18 at 23:00 Morphine Sulfate (morphine) 2 mg Q4H PRN IV PAIN LEVEL 7-10 Last administered on 11/12/18at 05:26; Admin Dose 2 MG; Start 11/11/18 at 23:00 Insulin Aspart (Novolog Insulin Pen) NOVOLOG *MODERATE* [place]I... Q4 SC Last administered on 11/27/18at 00:18; Admin Dose 2 UNIT; Start 11/12/18 at 05:00 Miscellaneous Information 1 ea NOTE XX ; Start 11/12/18 at 03:00 Glucose (Glutose) 15 gm Q15M PRN PO DECREASED GLUCOSE; Start 11/12/18 at 03:00 Glucose (Glutose) 22.5 gm Q15M PRN PO DECREASED GLUCOSE; Start 11/12/18 at 03:00 Dextrose (D50w Syringe) 25 ml Q15M PRN IV DECREASED GLUCOSE; Start 11/12/18 at 03:00 Dextrose (D50w Syringe) 50 ml Q15M PRN IV DECREASED GLUCOSE; Start 11/12/18 at 03:00 Glucagon (Glucagen) 1 mg Q15M PRN IM DECREASED GLUCOSE; Start 11/12/18 at 03:00 Glucose (Glutose) 15 gm Q15M PRN BUCCAL DECREASED GLUCOSE; Start 11/12/18 at 03:00 Acetaminophen (Tylenol Tab) 650 mg Q4H PRN GTB MILD PAIN LEVEL 1-3 Last administered on 11/17/18at 05:29; Admin Dose 650 MG; Start 11/12/18 at 09:30 Acetylcysteine (Mucomyst) 3 ml BID RESP THERAPY NEB Last administered on 11/27/18at 08:01; Admin Dose 3 ML; Start 11/12/18 at 10:00 Atorvastatin Calcium (Lipitor) 80 mg QHS GTB Last administered on 11/26/18at 20:07; Admin Dose 80 MG; Start 11/12/18 at 21:00 Bisacodyl (Dulcolax Supp) 10 mg Q24H PRN [place] CONSTIPATION; Start 11/12/18 at 09:30 Hydralazine HCl (Apresoline) 25 mg Q6 GTB Last administered on 11/27/18 05:38; Admin Dose 25 MG; Start 11/12/18 at 12:00 Lansoprazole (Prevacid) 30 mg BID@0600,1800 GTB Last administered on 11/27/18 05:38; Admin Dose 30 MG; Start 11/12/18 at 18:00 Senna (Senokot) 2 tab BID GTB Last administered on 11/26/18 20:08; Admin Dose 2 TAB; Start 11/12/18 at 09:30 Sucralfate (Carafate Susp) 1 gm QID GTB Last administered on 11/26/18 20:07; Admin Dose 1 GM; Start 11/12/18 at 13:00 Valproate Sodium (Depakene Liquid Cup) 500 mg Q8 GTB Last administered on 9at 05:38; Admin Dose 500 MG; Start 11/12/18 at 10:00 Insulin Human NPH (Humulin N) 28 unit Q8 SC Last administered on 11/27/18 05:49; Admin Dose 28 UNIT; Start 11/12/18 at 10:00 Sodium Biphosphate/ Sodium Phosphate (Fleet Enema) 133 ml DAILY PRN [place] CONSTIPATION; Start 11/12/18 at 10:00 Lisinopril (Zestril) 10 mg DAILY GTB Last administered on 11/26/18 09:03; Admin Dose 10 MG; Start 11/14/18 at 09:00 Albuterol/ Ipratropium (Duoneb) 3 ml Q6H RESP THERAPY PRN HHN SHORTNESS OF BREATH Last administered on 11/27/18 08:02; Admin Dose 3 ML; Start 11/13/18 at 21:00 Vancomycin HCl (Vanco Iv Per Pharmacy) VANCOMYCIN PER PHARMA... PER PROTOCOL XX ; Start 11/17/18 at 13:00; Stop 12/01/18 at 12:59 Vancomycin HCl 1.25 gm/Sodium Chloride 250 ml @ 83.333 mls/ hr Q12H IVPB Last administered on 11/27/18 03:46; Admin Dose 83.333 MLS/HR; Start 11/18/18 at 03:00; Stop 6/12/19 at 12:59 Carvedilol (Coreg) 12.5 mg BID GTB Last administered on 11/26/18at 20:07; Admin Dose 12.5 MG; Start 11/19/18 at 21:00 Miscellaneous Information (*Rx Drug Level Order Reminder*) VANCO TROUGH @ 1,400 ON... 1400 ONCE XX ; Start 11/27/18 at 14:00; Stop 11/27/18 at 14:01 Sodium Chloride 1,000 ml @ 70 mls/hr [id number] IV Last administered on 11/26/18at 20:06; Admin Dose 70 MLS/HR; Start 11/26/18 at 20:00; Stop 11/28/18 at 00:34 BABATUNDE KENNEY MD Nov 27, 2018 08:39
[2018-11-27] MEDS: SENNA TAB GTB SCH ×2 (08:41→21:09)
[2018-11-27] MEDS: LISINOPRIL 5 MG TAB GTB SCH (08:41)
[2018-11-27] MEDS: SUCRALFATE (100 MG/ML) 10ML CUP GTB SCH ×4 (08:42→21:08)
--- NOTE | 2018-11-27 10:31 | CONS ---
Assessment/Plan Assessment/Plan Assessment/Plan (Daily) Assessment and recommendations; 1. patient with history of chronic respiratory failure maintained on T-piece , admitted with pneumonia, multiple organisms cultured from sputum, patient currently on appropriate antimicrobial regimen. 2. Seizure disorder, without any recurrence. 3. Severe encephalopathy.. 4. History of hypertension. Continue current supportive care. Consider discharge to rehab center. Prognosis is very poor. Consultation Date/Type/Reason Admit Date/Time November 11, 2018 at 22:51 Initial Consult Date 11/15/18 Type of Consult Pulmonary/critical care Patient is a 52-year-old male who with a history of chronic encephalopathy admitted with worsening altered mental status from assisted. CT imaging of the brain showing acute intraparenchymal cerebral hemorrhage. Patient however has remained hemodynamically stable. Because of advanced encephalopathy patient was unable to give any history by himself whatsoever. Patient did not appear to be in any distress. Doing fairly well on T-piece via tracheostomy. Past medical history; 1. History of brain hemorrhage with right parietal craniotomy. 2. Chronic respiratory failure, patient maintained on T-piece now. 3. Seizure disorder. 4. CAD, status post PTCA in the past. 5. History of hypertension. 6. Diabetes. Medications; reviewed. Allergies; none. Social history, family history not available. Occupational history; patient is on disability now. Review of systems; unable to be obtained. General exam; middle-aged male, appears overweight, on T-piece via tracheostomy. Unresponsive. Currently in no distress. Requesting Provider: NIA DOMINGO MD Date/Time of Note DATE: 11/27/18 TIME: 10:28 24 HR Interval Summary Free Text/Dictation Patient's condition is stable. Remains noncommunicative. Has remained hemodynamically stable. General exam; middle-aged male, morbidly obese, on T-piece via tracheostomy, noncommunicative. Currently in no distress. Exam/Review of Systems Exam Vitals Vital Signs Date Temp Pulse Resp B/P (MAP) Pulse Ox O2 O2 Flow FiO2 Time Delivery Rate 11/27/18 98 5.0 28 08:05 11/27/18 74 22 Aerosol 08:02 11/27/18 98.2 123/62 07:36 (82) Intake and Output 11/26/18 11/26/18 11/27/18 1515:00 23:00 07:00 IntakeIntake Total 610 ml 280 ml 1960 ml OutputOutput Total 1000 ml 1200 ml BalanceBalance 610 ml -720 ml 760 ml Exam H EENT exam; supple neck, no JVD. No lymphadenopathy. Midline trachea. No thyromegaly. There is a right parietal skull depression. Tracheostomy in place. Insertion site is clean. Patient has fair dentition. Chest exam; diminished but clear breath sounds. S1-S2 audible, no murmurs. Regular rhythm. Abdomen exam; protuberant. No organomegaly. G-tube in place. Bowel sounds audible. Extremity exam; peripheral edema clubbing. LEARNING STRATEGIST exam; patient remains totally noncommunicative. Results Result Diagram: 11/26/18 0834 11/27/18 0543 Results 24hrs Laboratory Tests Test 11/26/18 13:01 11/26/18 17:45 11/26/18 22:02 11/27/18 00:08 Bedside Glucose 94 112 118 172 Test 11/27/18 03:59 11/27/18 05:37 11/27/18 05:43 11/27/18 08:39 Bedside Glucose 124 120 117 Sodium Level 126 L Potassium Level 4.3 Chloride Level 94 L Carbon Dioxide Level 29 Anion Gap 3 L Blood Urea Nitrogen 15 Creatinine 0.44 L Est Glomerular Filtrat > 60 Rate mL/min Glucose Level 123 Calcium Level 8.3 L Medications Medication Current Medications Ondansetron HCl (Zofran Inj) 4 mg Q6H PRN IV NAUSEA AND/OR VOMITING; Start 11/11/18 at 23:00 Acetaminophen (Tylenol Liquid) 650 mg Q6H PRN PO FEVER Last administered on 11/20/18at 03:38; Admin Dose 650 MG; Start 11/11/18 at 23:00 Morphine Sulfate (morphine) 2 mg Q4H PRN IV PAIN LEVEL 7-10 Last administered on 11/12/18at 05:26; Admin Dose 2 MG; Start 11/11/18 at 23:00 Insulin Aspart (Novolog Insulin Pen) NOVOLOG *MODERATE* ALGORI... Q4 SC Last administered on 11/27/18at 00:18; Admin Dose 2 UNIT; Start 11/12/18 at 05:00 Miscellaneous Information 1 ea NOTE XX ; Start 11/12/18 at 03:00 Glucose (Glutose) 15 gm Q15M PRN PO DECREASED GLUCOSE; Start 11/12/18 at 03:00 Glucose (Glutose) 22.5 gm Q15M PRN PO DECREASED GLUCOSE; Start 11/12/18 at 03:00 Dextrose (D50w Syringe) 25 ml Q15M PRN IV DECREASED GLUCOSE; Start 11/12/18 at 03:00 Dextrose (D50w Syringe) 50 ml Q15M PRN IV DECREASED GLUCOSE; Start 11/12/18 at 03:00 Glucagon (Glucagen) 1 mg Q15M PRN IM DECREASED GLUCOSE; Start 11/12/18 at 03:00 Glucose (Glutose) 15 gm Q15M PRN BUCCAL DECREASED GLUCOSE; Start 11/12/18 at 03:00 Acetaminophen (Tylenol Tab) 650 mg Q4H PRN GTB MILD PAIN LEVEL 1-3 Last administered on 11/17/18 05:29; Admin Dose 650 MG; Start 11/12/18 at 09:30 Acetylcysteine (Mucomyst) 3 ml BID RESP THERAPY NEB Last administered on 11/27/18 08:01; Admin Dose 3 ML; Start 11/12/18 at 10:00 Atorvastatin Calcium (Lipitor) 80 mg QHS GTB Last administered on 11/26/18 20:07; Admin Dose 80 MG; Start 11/12/18 at 21:00 Bisacodyl (Dulcolax Supp) 10 mg Q24H PRN [place] CONSTIPATION; Start 11/12/18 at 09:30 Hydralazine HCl (Apresoline) 25 mg Q6 GTB Last administered on 11/27/18 05:38; Admin Dose 25 MG; Start 11/12/18 at 12:00 Lansoprazole (Prevacid) 30 mg BID@0600,1800 GTB Last administered on 11/27/18 05:38; Admin Dose 30 MG; Start 11/12/18 at 18:00 Senna (Senokot) 2 tab BID GTB Last administered on 11/27/18 08:41; Admin Dose 2 TAB; Start 11/12/18 at 09:30 Sucralfate (Carafate Susp) 1 gm QID GTB Last administered on 11/27/18 08:42; Admin Dose 1 GM; Start 11/12/18 at 13:00 Valproate Sodium (Depakene Liquid Cup) 500 mg Q8 GTB Last administered on 11/27/18 05:38; Admin Dose 500 MG; Start 11/12/18 at 10:00 Insulin Human NPH (Humulin N) 28 unit Q8 SC Last administered on 11/27/18 05:49 ; Admin Dose 28 UNIT; Start 11/12/18 at 10:00 Sodium Biphosphate/ Sodium Phosphate (Fleet Enema) 133 ml DAILY PRN [place] CONSTIPATION; Start 11/12/18 at 10:00 Lisinopril (Zestril) 10 mg DAILY GTB Last administered on 11/27/18 08:41; Admin Dose 10 MG; Start 11/14/18 at 09:00 Albuterol/ Ipratropium (Duoneb) 3 ml Q6H RESP THERAPY PRN HHN SHORTNESS OF BREATH Last administered on 11/27/18 08:02; Admin Dose 3 ML; Start 11/13/18 at 21:00 Vancomycin HCl (Vanco Iv Per Pharmacy) VANCOMYCIN PER PHARMA... PER PROTOCOL XX ; Start 11/17/18 at 13:00; Stop 12/01/18 at 12:59 Vancomycin HCl 1.25 gm/Sodium Chloride 250 ml @ 83.333 mls/ hr Q12H IVPB Last administered on 11/27/18 03:46; Admin Dose 83.333 MLS/HR; Start 11/18/18 at 03:00; Stop 12/01/18 at 12:59 Carvedilol (Coreg) 12.5 mg BID GTB Last administered on 11/27/18 08:42; Admin Dose 12.5 MG; Start 11/19/18 at 21:00 Miscellaneous Information (*Rx Drug Level Order Reminder*) VANCO TROUGH @ 1,400 ON... 1400 ONCE XX ; Start 11/27/18 at 14:00; Stop 11/27/18 at 14:01 Sodium Chloride 1,000 ml @ 70 mls/hr [id number] Last administered on 11/26/18at 20:06; Admin Dose 70 MLS/HR; Start 11/26/18 at 20:00; Stop 11/28/18 at 00:34 MER CHRIS Nov 27, 2018 10:30
[2018-11-27] MEDS: SOD CHLORIDE 0.9% 1,000 ML IV SCH (12:05)
--- NOTE | 2018-11-27 12:10 | PN ---
Date/Time of Note Date/Time of Note DATE: 11/27/18 TIME: 12:09 Assessment/Plan VTE Prophylaxis Risk score (from [facility] [place])>0 risk: 7 SCD applied (from [facility] [place]): Yes SCD contraindicated: other Pharmacological prophylaxis: other Pharm contraindication: other Lines/Catheters IV Catheter Type (from [facility]): Saline Lock Urinary Cath still in place: Yes Reason Cath still needed: urinary retention Assessment/Plan Assessment/Plan -Hyponatremia- Na 126 today - Dr. Betts, nephrology consultation. -Diarrhea, will check stool for C. difficile. -Intracranial hemorrhage, Dr. Espana is following in neurosurgery consultation. Family does not want any aggressive treatment. -Sepsis with fever and leukocytosis most likely secondary to HCAP, resolved. Completed treatment with antibiotics for pneumonia. Dr. Kiran is following in infection disease consultation. -MRSA bacteremia, continue Vanco until 12/01/18. -Recent history of right hemicraniectomy, details are not available. Records requested. -Chronic respiratory failure with tracheostomy, patient is currently on T-tube. -Healthcare associated pneumonia, continue antibiotics. -Coronary artery disease, status post PTCA with stent placement -Ischemic cardiomyopathy -Diabetes -Dysphagia with G-tube -Dyslipidemia -Obesity with BMI of 35.3 -DNR status Further recommendations depends on clinical course. Plan of care discussed with Dr. Cortez. Result Diagram: 11/26/18 0834 11/27/18 0543 Results 24hrs Laboratory Tests Test 11/26/18 13:01 11/26/18 17:45 11/26/18 22:02 11/27/18 00:08 Bedside Glucose 94 112 118 172 Test 11/27/18 03:59 11/27/18 05:37 11/27/18 05:43 11/27/18 08:39 Bedside Glucose 124 120 117 Sodium Level 126 L Potassium Level 4.3 Chloride Level 94 L Carbon Dioxide Level 29 Anion Gap 3 L Blood Urea Nitrogen 15 Creatinine 0.44 L Est Glomerular Filtrat > 60 Rate mL/min Glucose Level 123 Calcium Level 8.3 L Subjective 24 Hr Interval Summary Free Text/Dictation nad; vss comfortable on T-Tube SNF placement when stable no events overnight dw staff Subjective hx not possible: pt non-verbal Constitutional: requiring O2 Exam/Review of Systems Exam Vitals Vital Signs Date Temp Pulse Resp B/P (MAP) Pulse Ox O2 O2 Flow FiO2 Time Delivery Rate 11/27/18 98.5 79 18 121/65 100 Trach 11:25 (83) Collar 11/27/18 6.0 11:23 11/27/18 28 08:05 Intake and Output 11/26/18 11/26/18 11/27/18 1515:00 23:00 07:00 IntakeIntake Total 610 ml 280 ml 1960 ml OutputOutput Total 1000 ml 1200 ml BalanceBalance 610 ml -720 ml 760 ml Constitutional: well developed Head: other (sp cranitomy) Eyes: nl lids ENMT: nl external ears & nose Respiratory: clear to auscultation Cardiovascular: nl pulses, other (s1s2) Gastrointestinal: soft, other Musculoskeletal: muscle weakness Extremities: normal pulses Neurological: confused, lethargic Results Results 24hrs Laboratory Tests Test 11/26/18 13:01 11/26/18 17:45 11/26/18 22:02 11/27/18 00:08 Bedside Glucose 94 112 118 172 Test 11/27/18 03:59 11/27/18 05:37 11/27/18 05:43 11/27/18 08:39 Bedside Glucose 124 120 117 Sodium Level 126 L Potassium Level 4.3 Chloride Level 94 L Carbon Dioxide Level 29 Anion Gap 3 L Blood Urea Nitrogen 15 Creatinine 0.44 L Est Glomerular Filtrat > 60 Rate mL/min Glucose Level 123 Calcium Level 8.3 L Medications Medication Current Medications Ondansetron HCl (Zofran Inj) 4 mg Q6H PRN IV NAUSEA AND/OR VOMITING; Start 11/11/18 at 23:00 Acetaminophen (Tylenol Liquid) 650 mg Q6H PRN PO FEVER Last administered on 11/20/18at 03:38; Admin Dose 650 MG; Start 11/11/18 at 23:00 Morphine Sulfate (morphine) 2 mg Q4H PRN IV PAIN LEVEL 7-10 Last administered o n 11/12/18at 05:26; Admin Dose 2 MG; Start 11/11/18 at 23:00 Miscellaneous Information 1 ea NOTE XX ; Start 11/12/18 at 03:00 Glucose (Glutose) 15 gm Q15M PRN PO DECREASED GLUCOSE; Start 11/12/18 at 03:00 Glucose (Glutose) 22.5 gm Q15M PRN PO DECREASED GLUCOSE; Start 11/12/18 at 03:00 Dextrose (D50w Syringe) 25 ml Q15M PRN IV DECREASED GLUCOSE; Start 11/12/18 at 03:00 Dextrose (D50w Syringe) 50 ml Q15M PRN IV DECREASED GLUCOSE; Start 11/12/18 at 03:00 Glucagon (Glucagen) 1 mg Q15M PRN IM DECREASED GLUCOSE; Start 11/12/18 at 03:00 Glucose (Glutose) 15 gm Q15M PRN BUCCAL DECREASED GLUCOSE; Start 11/12/18 at 03:00 Acetaminophen (Tylenol Tab) 650 mg Q4H PRN GTB MILD PAIN LEVEL 1-3 Last adm inistered on 11/17/18 05:29; Admin Dose 650 MG; Start 11/12/18 at 09:30 Acetylcysteine (Mucomyst) 3 ml BID RESP THERAPY NEB Last administered on 11/27/18 08:01; Admin Dose 3 ML; Start 11/12/18 at 10:00 Atorvastatin Calcium (Lipitor) 80 mg QHS GTB Last administered on 11/26/18 20:07; Admin Dose 80 MG; Start 11/12/18 at 21:00 Bisacodyl (Dulcolax Supp) 10 mg Q24H PRN [place] CONSTIPATION; Start 11/12/18 at 09:30 Hydralazine HCl (Apresoline) 25 mg Q6 GTB Last administered on 11/27/18 05:38; Admin Dose 25 MG; Start 11/12/18 at 12:00 Lansoprazole (Prevacid) 30 mg BID@0600,1800 GTB Last administered on 11/27/18 05:38; Admin Dose 30 MG; Start 11/12/18 at 18:00 Senna (Senokot) 2 tab BID GTB Last administered on 11/27/18 08:41; Admin Dose 2 TAB; Start 11/12/18 at 09:30 Sucralfate (Carafate Susp) 1 gm QID GTB Last administered on 11/27/18 08:42; Admin Dose 1 GM; Start 11/12/18 at 13:00 Valproate Sodium (Depakene Liquid Cup) 500 mg Q8 GTB Last administered on 11/27/18 05:38; Admin Dose 500 MG; Start 11/12/18 at 10:00 Insulin Human NPH (Humulin N) 28 unit Q8 SC Last administered on 11/27/18at 05:49; Admin Dose 28 UNIT; Start 11/12/18 at 10:00 Sodium Biphosphate/ Sodium Phosphate (Fleet Enema) 133 ml DAILY PRN ME CONSTIPATION; Start 11/12/18 at 10:00 Lisinopril (Zestril) 10 mg DAILY GTB Last administered on 11/27/18at 08:41; Admin Dose 10 MG; Start 11/14/18 at 09:00 Albuterol/ Ipratropium (Duoneb) 3 ml Q6H RESP THERAPY PRN HHN SHORTNESS OF BREATH Last administered on 11/27/18at 08:02; Admin Dose 3 ML; Start 11/13/18 at 21:00 Vancomycin HCl (Vanco Iv Per Pharmacy) VANCOMYCIN PER PHARMA... PER PROTOCOL XX ; Start 11/17/18 at 13:00; Stop 12/01/18 at 12:59 Vancomycin HCl 1.25 gm/Sodium Chloride 250 ml @ 83.333 mls/ hr Q12H IVPB Last administered on 11/27/18at 03:46; Admin Dose 83.333 MLS/HR; Start 11/18/18 at 03:00; Stop 12/01/18 at 12:59 Carvedilol (Coreg) 12.5 mg BID GTB Last administered on 11/27/18at 08:42; Admin Dose 12.5 MG; Start 11/19/18 at 21:00 Miscellaneous Information (*Rx Drug Level Order Reminder*) VANCO TROUGH @ 1,400 ON... 1400 ONCE XX ; Start 11/27/18 at 14:00; Stop 11/27/18 at 14:01 Sodium Chloride 1,000 ml @ 70 mls/hr [id number] IV Last administered on 11/26/18at 20:06; Admin Dose 70 MLS/HR; Start 11/26/18 at 20:00; Stop 11/28/18 at 00:34 Insulin Aspart (Novolog Insulin Pen) NOVOLOG *MODERATE* ALGORI... Q6 SC ; Start 11/27/18 at 12:00 REGINA BUI Nov 27, 2018 12:10
--- NOTE | 2018-11-27 14:31 | CONS ---
Assessment/Plan Assessment/Plan Hospital Course (Demo Recall) IMPRESSION: 1. Abnormal electrocardiogram, assess for acute coronary syndrome.-neg trop x 3/EF 30-35% 2. Cardiomyopathy with decreased left ventricular ejection fraction. EF 30-35% by echo this admit 3. Congestive heart failure, systolic, chronic. 4. Hypertension-well controlled 5. Intracranial hemorrhage. 6. Chronic encephalopathy. 7. Prior craniectomy. 8. History of prior PTCA and stent placement. 9. Anemia. 10. Tachycardia-S tach today ? etiology, autonomic dysfunction 11.fevers-defervesced 12. SVT-overnight at 160-170 regular, ? AVNRT. no recurrence mutiple days Recc: -Tele -continue hydralazine/ACEI/coreg -Continue daily lasix and follow volume status closely -Continue statin -ongoing NRSG eval -Rx fevers -Continue abx's and f/u cx data -Now DNR Consultation Date/Type/Reason Admit Date/Time November 11, 2018 at 22:51 Initial Consult Date 11/12/18 Type of Consult Cardiology Reason for Consultation cardiumyopathy/CHF Requesting Provider: NIA DOMINGO MD Date/Time of Note DATE: 11/27/18 TIME: 14:30 Exam/Review of Systems Vital Signs Vitals Vital Signs Date Temp Pulse Resp B/P (MAP) Pulse Ox O2 O2 Flow FiO2 Time Delivery Rate 11/27/18 98.5 79 18 121/65 100 Trach 11:25 (83) Collar 11/27/18 6.0 11:23 11/27/18 28 08:05 Intake and Output 11/26/18 11/26/18 11/27/18 1515:00 23:00 07:00 IntakeIntake Total 610 ml 280 ml 1960 ml OutputOutput Total 1000 ml 1200 ml BalanceBalance 610 ml -720 ml 760 ml Exam Exam Review of Systems: CONSTITUTIONAL: No fevers, chills. PULMONARY: No sob CARDIOVASCULAR: No chest pain/palpitations GASTROINTESTINAL: No nausea/vomiting. GENITOURINARY: No hematuria/dysuria. MUSCULOSKELETAL: No myagias/arthalgias. PSYCHIATRIC: The patient denies depression. NEUROLOGIC: No weakness Constitutional: alert, oriented Psych: no complaints Head: normocephalic ENMT: mucosa pink and moist Neck: supple, jvd (9 cm water) Respiratory: diminished breath sounds (at bases/B) Cardiovascular: regular rate and rhythm Gastrointestinal: soft, non-tender Musculoskeletal: muscle tone (normal) Extremities: edema (none) Labs Result Diagram: 11/26/18 0834 11/27/18 0543 Results 24hrs Laboratory Tests Test 11/26/18 17:45 11/26/18 22:02 11/27/18 00:08 11/27/18 03:59 Bedside Glucose 112 118 172 124 Test 11/27/18 05:37 11/27/18 05:43 11/27/18 08:39 11/27/18 12:03 Bedside Glucose 120 117 101 Sodium Level 126 L Potassium Level 4.3 Chloride Level 94 L Carbon Dioxide Level 29 Anion Gap 3 L Blood Urea Nitrogen 15 Creatinine 0.44 L Est Glomerular Filtrat > 60 Rate mL/min Glucose Level 123 Calcium Level 8.3 L Test 11/27/18 13:22 Bedside Glucose 92 Medications Medications Current Medications Ondansetron HCl (Zofran Inj) 4 mg Q6H PRN IV NAUSEA AND/OR VOMITING; Start 11/11/18 at 23:00 Acetaminophen (Tylenol Liquid) 650 mg Q6H PRN PO FEVER Last administered on 11/20/18at 03:38; Admin Dose 650 MG; Start 11/11/18 at 23:00 Morphine Sulfate (morphine) 2 mg Q4H PRN IV PAIN LEVEL 7-10 Last administered on 11/12/18at 05:26; Admin Dose 2 MG; Start 11/11/18 at 23:00 Miscellaneous Information 1 ea NOTE XX ; Start 11/12/18 at 03:00 Glucose (Glutose) 15 gm Q15M PRN PO DECREASED GLUCOSE; Start 11/12/18 at 03:00 Glucose (Glutose) 22.5 gm Q15M PRN PO DECREASED GLUCOSE; Start 11/12/18 at 03:00 Dextrose (D50w Syringe) 25 ml Q15M PRN IV DECREASED GLUCOSE; Start 11/12/18 at 03:00 Dextrose (D50w Syringe) 50 ml Q15M PRN IV DECREASED GLUCOSE; Start 11/12/18 at 03:00 Glucagon (Glucagen) 1 mg Q15M PRN IM DECREASED GLUCOSE; Start 11/12/18 at 03:00 Glucose (Glutose) 15 gm Q15M PRN BUCCAL DECREASED GLUCOSE; Start 11/12/18 at 03:00 Acetaminophen (Tylenol Tab) 650 mg Q4H PRN GTB MILD PAIN LEVEL 1-3 Last administered on 11/17/18 05:29; Admin Dose 650 MG; Start 11/12/18 at 09:30 Acetylcysteine (Mucomyst) 3 ml BID RESP THERAPY NEB Last administered on 11/27/18 08:01; Admin Dose 3 ML; Start 11/12/18 at 10:00 Atorvastatin Calcium (Lipitor) 80 mg QHS GTB Last administered on 11/26/18 20:07; Admin Dose 80 MG; Start 11/12/18 at 21:00 Bisacodyl (Dulcolax Supp) 10 mg Q24H PRN [place] CONSTIPATION; Start 11/12/18 at 09:30 Hydralazine HCl (Apresoline) 25 mg Q6 GTB Last administered on 11/27/18 12:05; Admin Dose 25 MG; Start 11/12/18 at 12:00 Lansoprazole (Prevacid) 30 mg BID@0600,1800 GTB Last administered on 11/27/18 05:38; Admin Dose 30 MG; Start 11/12/18 at 18:00 Senna (Senokot) 2 tab BID GTB Last administered on 11/27/18 08:41; Admin Dose 2 TAB; Start 11/12/18 at 09:30 Sucralfate (Carafate Susp) 1 gm QID GTB Last administered on 11/27/18 13:20; Admin Dose 1 GM; Start 11/12/18 at 13:00 Valproate Sodium (Depakene Liquid Cup) 500 mg Q8 GTB Last administered on 11/27/18 13:20; Admin Dose 500 MG; Start 11/12/18 at 10:00 Insulin Human NPH (Humulin N) 28 unit Q8 SC Last administered on 11/27/18 13:27; Admin Dose 28 UNIT; Start 11/12/18 at 10:00 Sodium Biphosphate/ Sodium Phosphate (Fleet Enema) 133 ml DAILY PRN [place] CONSTIPATION; Start 11/12/18 at 10:00 Lisinopril (Zestril) 10 mg DAILY GTB Last administered on 11/27/18 08:41; Admin Dose 10 MG; Start 11/14/18 at 09:00 Albuterol/ Ipratropium (Duoneb) 3 ml Q6H RESP THERAPY PRN HHN SHORTNESS OF BREATH Last administered on 11/27/18at 08:02; Admin Dose 3 ML; Start 11/13/18 at 21:00 Vancomycin HCl (Vanco Iv Per Pharmacy) VANCOMYCIN PER PHARMA... PER PROTOCOL XX ; Start 11/17/18 at 13:00; Stop 12/01/18 at 12:59 Vancomycin HCl 1.25 gm/Sodium Chloride 250 ml @ 83.333 mls/ hr Q12H IVPB Last administered on 11/27/18at 03:46; Admin Dose 83.333 MLS/HR; Start 11/18/18 at 03:00; Stop 12/01/18 at 12:59 Carvedilol (Coreg) 12.5 mg BID GTB Last administered on 11/27/18at 08:42; Admin Dose 12.5 MG; Start 11/19/18 at 21:00 Sodium Chloride 1,000 ml @ 70 mls/hr [id number] IV Last administered on 11/27/18at 12:05; Admin Dose 70 MLS/HR; Start 11/26/18 at 20:00; Stop 11/28/18 at 00:34 Insulin Aspart (Novolog Insulin Pen) NOVOLOG *MODERATE* ALGORI... Q6 SC ; Start 11/27/18 at 12:00 MAE ROSALES Nov 27, 2018 14:31
--- NOTE | 2018-11-27 15:12 | CONS ---
Assessment/Plan Assessment/Plan Hospital Course (Demo Recall) - intermittent fever due to bacteremia and possible HCAP - resolved - bacteremia due to MRSA on 11/15/2018; repeat blood cx on 11/17/2018 were negative - on vanco - possible HCAP, however, given the polymicrobial growth of his resp culture, all bacteria may be colonizers of the airway: providencia, proteus, pseudomonas, group B strep, klebsiella; repeat trach asp cx 11/17/2018 grew pseudomonas and proteus; Pt completed pip/tazo (11/15/2018-11/17/2018) and cefepime (11/18/2018- 11/22/18) - h/o CVA. 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 oblsbup-[id number]-[id number] lobes; stable large subacute R frontal temporal parietal intraparenchymal hemorrhage, plus encephalomalacia/gliosis; stable moderate to severe ventriculomegaly; moderate b/l occipital horn acute intraventricular hemorrhage; chronic R paracentral pontine infarction; small chronic R cerebellar infarctions; L temporal lobe with associated encephalomalacia/gliosis within this region as well as laminar necrosis; moderate chronic microvascular ischemic changes; basilar dolichoectasia; extensive bilateral mastoid air cell effusions - aerococci in urine culture on 11/14/2018, probable colonization - chronic hypoxic resp failure - h/o tracheostomy placement - unresponsive state due to extensive CVA - diarrhea - on senna - hyponatremia - dry scaly skin Recommendations - continue IV vancomycin (re-start 11/17/2018-12/01/2018) for bacteremia due to MRSA; plan for 14 days - continue chlorhexidine bed bath (11/26/2018-) daily followed by moisturizer (ordered) - monitor skin for rash Management discussed BRADLEY Jay and with Dr. Kiran Consultation Date/Type/Reason Admit Date/Time November 11, 2018 at 22:51 Initial Consult Date 11/15/18 Type of Consult Infectious Disease Requesting Provider: NIA DOMINGO MD Date/Time of Note DATE: 11/27/18 TIME: 15:12 24 HR Interval Summary Free Text/Dictation Senna given this AM as no stool noted in rectal tube per d/w nursing. No acute issues. Subjective hx not possible: pt non-verbal Exam/Review of Systems Exam Vitals Vital Signs Date Temp Pulse Resp B/P (MAP) Pulse Ox O2 O2 Flow FiO2 Time Delivery Rate 11/27/18 99 5.0 28 14:47 11/27/18 77 22 Aerosol 14:45 Mask T Tube 11/27/18 98.5 121/65 11:25 (83) Intake and Output 11/26/18 11/26/18 11/27/18 1515:00 23:00 07:00 IntakeIntake Total 610 ml 280 ml 1960 ml OutputOutput Total 1000 ml 1200 ml BalanceBalance 610 ml -720 ml 760 ml Exam Constitutional: well developed, non-verbal, frail, obese, other (chronically debilitated) Psych: other (unable to assess) Head: other (craniectomy scar well healed, but site is full) Eyes: nl conjunctiva, nl lids ENMT: nl external ears & nose, nl nasal mucosa & septum, other (unable to examine OP) Neck: other (trach is midline and connected to T-piece) Respiratory: diminished breath sounds (coarse breath sounds with ); No wheezing Cardiovascular: regular rate and rhythm, nl pulses Gastrointestinal: soft, non-tender, other (G-tube intact; Rectal tube with residual BM noted in tubing); No distended Genitourinary - Male: nl penis, nl scrotum, other (Nelson catheter intact with clear carlos manuel urine) Musculoskeletal: nl extremities to inspection, other (stiff to ROM) Extremities: No edema Neurological: unresponsive (withdraws to pain) Skin: nl turgor, other (Pt with dry, scaly, and flaky skin to L hand and back - improved from yesterday), other (multiple tattoos) Results Result Diagram: 11/26/18 0834 11/27/18 0543 Results 24hrs Laboratory Tests Test 11/26/18 17:45 11/26/18 22:02 11/27/18 00:08 11/27/18 03:59 Bedside Glucose 112 118 172 124 Test 11/27/18 05:37 11/27/18 05:43 11/27/18 08:39 11/27/18 12:03 Bedside Glucose 120 117 101 Sodium Level 126 L Potassium Level 4.3 Chloride Level 94 L Carbon Dioxide Level 29 Anion Gap 3 L Blood Urea Nitrogen 15 Creatinine 0.44 L Est Glomerular Filtrat > 60 Rate mL/min Glucose Level 123 Calcium Level 8.3 L Test 11/27/18 13:22 Bedside Glucose 92 Medications Medication Current Medications Ondansetron HCl (Zofran Inj) 4 mg Q6H PRN IV NAUSEA AND/OR VOMITING; Start 11/11/18 at 23:00 Acetaminophen (Tylenol Liquid) 650 mg Q6H PRN PO FEVER Last administered on 11/20/18at 03:38; Admin Dose 650 MG; Start 11/11/18 at 23:00 Morphine Sulfate (morphine) 2 mg Q4H PRN IV PAIN LEVEL 7-10 Last administered on 11/12/18at 05:26; Admin Dose 2 MG; Start 11/11/18 at 23:00 Miscellaneous Information 1 ea NOTE XX ; Start 11/12/18 at 03:00 Glucose (Glutose) 15 gm Q15M PRN PO DECREASED GLUCOSE; Start 11/12/18 at 03:00 Glucose (Glutose) 22.5 gm Q15M PRN PO DECREASED GLUCOSE; Start 11/12/18 at 03:00 Dextrose (D50w Syringe) 25 ml Q15M PRN IV DECREASED GLUCOSE; Start 11/12/18 at 03:00 Dextrose (D50w Syringe) 50 ml Q15M PRN IV DECREASED GLUCOSE; Start 11/12/18 at 03:00 Glucagon (Glucagen) 1 mg Q15M PRN IM DECREASED GLUCOSE; Start 11/12/18 at 03:00 Glucose (Glutose) 15 gm Q15M PRN BUCCAL DECREASED GLUCOSE; Start 11/12/18 at 03:00 Acetaminophen (Tylenol Tab) 650 mg Q4H PRN GTB MILD PAIN LEVEL 1-3 Last administered on 11/17/18at 05:29; Admin Dose 650 MG; Start 11/12/18 at 09:30 Acetylcysteine (Mucomyst) 3 ml BID RESP THERAPY NEB Last administered on 11/27/18at 08:01; Admin Dose 3 ML; Start 11/12/18 at 10:00 Atorvastatin Calcium (Lipitor) 80 mg QHS GTB Last administered on 11/26/18at 20:07; Admin Dose 80 MG; Start 11/12/18 at 21:00 Bisacodyl (Dulcolax Supp) 10 mg Q24H PRN [place] CONSTIPATION; Start 11/12/18 at 09:30 Hydralazine HCl (Apresoline) 25 mg Q6 GTB Last administered on 11/27/18 12:05; Admin Dose 25 MG; Start 11/12/18 at 12:00 Lansoprazole (Prevacid) 30 mg BID@0600,1800 GTB Last administered on 11/27/18 05:38; Admin Dose 30 MG; Start 11/12/18 at 18:00 Senna (Senokot) 2 tab BID GTB Last administered on 11/27/18 08:41; Admin Dose 2 TAB; Start 11/12/18 at 09:30 Sucralfate (Carafate Susp) 1 gm QID GTB Last administered on 11/27/18 13:20; Admin Dose 1 GM; Start 11/12/18 at 13:00 Valproate Sodium (Depakene Liquid Cup) 500 mg Q8 GTB Last administered on 11/27/18 13:20; Admin Dose 500 MG; Start 11/12/18 at 10:00 Insulin Human NPH (Humulin N) 28 unit Q8 SC Last administered on 11/27/18 13:27; Admin Dose 28 UNIT; Start 11/12/18 at 10:00 Sodium Biphosphate/ Sodium Phosphate (Fleet Enema) 133 ml DAILY PRN [place] CONSTIPATION; Start 11/12/18 at 10:00 Lisinopril (Zestril) 10 mg DAILY GTB Last administered on 11/27/18 08:41; Admin Dose 10 MG; Start 11/14/18 at 09:00 Albuterol/ Ipratropium (Duoneb) 3 ml Q6H RESP THERAPY PRN HHN SHORTNESS OF BREATH Last administered on 11/27/18 08:02; Admin Dose 3 ML; Start 11/13/18 at 21:00 Vancomycin HCl (Vanco Iv Per Pharmacy) VANCOMYCIN PER PHARMA... PER PROTOCOL XX ; Start 11/17/18 at 13:00; Stop 12/01/18 at 12:59 Vancomycin HCl 1.25 gm/Sodium Chloride 250 ml @ 83.333 mls/ hr Q12H IVPB Last administered on 11/27/18 03:46; Admin Dose 83.333 MLS/HR; Start 11/18/18 at 03:00; Stop 12/01/18 at 12:59 Carvedilol (Coreg) 12.5 mg BID GTB Last administered on 11/27/18at 08:42; Admin Dose 12.5 MG; Start 11/19/18 at 21:00 Sodium Chloride 1,000 ml @ 70 mls/hr [id number] Last administered on 11/27/18at 12:05; Admin Dose 70 MLS/HR; Start 11/26/18 at 20:00; Stop 11/28/18 at 00:34 Insulin Aspart (Novolog Insulin Pen) NOVOLOG *MODERATE* ALGORI... Q6 SC ; Start 11/27/18 at 12:00 BISHNU ACOSTA NP Nov 27, 2018 15:12
[2018-11-27] MEDS: ATORVASTATIN 80 MG TAB GTB SCH (21:08)
[2018-11-28] VITALS (18 sets, daily range): BP systolic 88–136; BP diastolic 50–69; PULSE 75–89; RESP 18–19
[2018-11-28] MEDS: VANCOMYCIN HCL 1.25 GM in SOD CHLORIDE 0.9% 250 ML IVPB SCH ×2 (03:35→15:45)
[2018-11-28] MEDS: INSULIN ASPART [NOVOLOG] 3 ML PEN SC SCH ×3 (06:00→17:18)
[2018-11-28] MEDS: VALPROIC ACID LIQUID CUP 250 MG/5 ML CUP GTB SCH ×3 (06:40→23:06)
[2018-11-28] MEDS: LANSOPRAZOLE 30 MG CAP GTB SCH ×2 (06:40→17:19)
[2018-11-28] MEDS: NPH, HUMAN INSULIN ISOPHANE 3ML VIAL SC SCH ×3 (06:51→23:11)
[2018-11-28] MEDS: ACETYLCYSTEINE 20% 4 ML VIAL NEB SCH ×2 (08:12→20:53)
[2018-11-28] MEDS: ALBUTEROL/IPRATROPIUM (NEB) 3 ML AMP HHN PRN ×2 (08:12→20:53)
--- NOTE | 2018-11-28 08:39 | PN ---
Date/Time of Note Date/Time of Note DATE: 11/28/18 TIME: 08:39 Assessment/Plan VTE Prophylaxis Risk score (from [facility])>0 risk: 7 SCD applied (from Ns): Yes Lines/Catheters IV Catheter Type (from [facility]): Peripheral IV Urinary Cath still in place: Yes Assessment/Plan Assessment/Plan -Hyponatremia- Na 126 today - Dr. Betts, nephrology consultation. -Diarrhea, will check stool for C. difficile. -Intracranial hemorrhage, Dr. Espana is following in neurosurgery consultation. Family does not want any aggressive treatment. -Sepsis with fever and leukocytosis most likely secondary to HCAP, resolved. Completed treatment with antibiotics for pneumonia. Dr. Kiran is following in infection disease consultation. -MRSA bacteremia, continue Vanco until 12/01/18. -Recent history of right hemicraniectomy, details are not available. Records requested. -Chronic respiratory failure with tracheostomy, patient is currently on T-tube. -Healthcare associated pneumonia, continue antibiotics. -Coronary artery disease, status post PTCA with stent placement -Ischemic cardiomyopathy -Diabetes -Dysphagia with G-tube -Dyslipidemia -Obesity with BMI of 35.3 -DNR status Result Diagram: 11/28/18 0600 11/28/18 0600 Results 24hrs Laboratory Tests Test 11/27/18 12:03 11/27/18 13:22 11/27/18 13:59 11/27/18 17:21 Bedside Glucose 101 92 79 Vancomycin Level Trough 13.8 Test 11/27/18 23:11 11/28/18 06:00 11/28/18 06:39 Bedside Glucose 123 132 White Blood Count 15.9 #H Red Blood Count 3.93 L Hemoglobin 11.0 L Hematocrit 34.2 L Mean Corpuscular Volume 87.0 Mean Corpuscular 28.0 L Hemoglobin Mean Corpuscular 32.2 Hemoglobin Concent Red Cell Distribution 15.8 H Width Platelet Count 319 Mean Platelet Volume 10.4 Immature Granulocytes % 0.400 Neutrophils % 84.1 H Lymphocytes % 6.2 L Monocytes % 4.5 Eosinophils % 4.6 Basophils % 0.2 Nucleated Red Blood 0.0 Cells % Immature Granulocytes # 0.070 H Neutrophils # 13.4 H Lymphocytes # 1.0 Monocytes # 0.7 Eosinophils # 0.7 H Basophils # 0.0 Nucleated Red Blood 0.0 Cells # Sodium Level 132 L Potassium Level 4.4 Chloride Level 97 Carbon Dioxide Level 30 Anion Gap 5 Blood Urea Nitrogen 15 Creatinine 0.45 L Est Glomerular Filtrat > 60 Rate mL/min Glucose Level 134 Calcium Level 8.6 Subjective 24 Hr Interval Summary Free Text/Dictation RESTARINTS RENEWED Subjective hx not possible: pt non-verbal Exam/Review of Systems Exam Vitals Vital Signs Date Temp Pulse Resp B/P (MAP) Pulse Ox O2 O2 Flow FiO2 Time Delivery Rate 11/28/18 99 6.0 28 08:18 11/28/18 89 22 Aerosol 08:13 11/28/18 98.7 120/57 07:13 (78) Intake and Output 11/27/18 11/27/18 11/28/18 1515:00 23:00 07:00 IntakeIntake Total 1940 ml 250 ml OutputOutput Total 2700 ml BalanceBalance -760 ml 250 ml Results Results 24hrs Laboratory Tests Test 11/27/18 12:03 11/27/18 13:22 11/27/18 13:59 11/27/18 17:21 Bedside Glucose 101 92 79 Vancomycin Level Trough 13.8 Test 11/27/18 23:11 11/28/18 06:00 11/28/18 06:39 Bedside Glucose 123 132 White Blood Count 15.9 #H Red Blood Count 3.93 L Hemoglobin 11.0 L Hematocrit 34.2 L Mean Corpuscular Volume 87.0 Mean Corpuscular 28.0 L Hemoglobin Mean Corpuscular 32.2 Hemoglobin Concent Red Cell Distribution 15.8 H Width Platelet Count 319 Mean Platelet Volume 10.4 Immature Granulocytes % 0.400 Neutrophils % 84.1 H Lymphocytes % 6.2 L Monocytes % 4.5 Eosinophils % 4.6 Basophils % 0.2 Nucleated Red Blood 0.0 Cells % Immature Granulocytes # 0.070 H Neutrophils # 13.4 H Lymphocytes # 1.0 Monocytes # 0.7 Eosinophils # 0.7 H Basophils # 0.0 Nucleated Red Blood 0.0 Cells # Sodium Level 132 L Potassium Level 4.4 Chloride Level 97 Carbon Dioxide Level 30 Anion Gap 5 Blood Urea Nitrogen 15 Creatinine 0.45 L Est Glomerular Filtrat > 60 Rate mL/min Glucose Level 134 Calcium Level 8.6 Medications Medication Current Medications Ondansetron HCl (Zofran Inj) 4 mg Q6H PRN IV NAUSEA AND/OR VOMITING; Start 5/23/19 at 23:00 Acetaminophen (Tylenol Liquid) 650 mg Q6H PRN PO FEVER Last administered on 11/20/18at 03:38; Admin Dose 650 MG; Start 11/11/18 at 23:00 Morphine Sulfate (morphine) 2 mg Q4H PRN IV PAIN LEVEL 7-10 Last administered on 11/12/18at 05:26; Admin Dose 2 MG; Start 11/11/18 at 23:00 Miscellaneous Information 1 ea NOTE XX ; Start 11/12/18 at 03:00 Glucose (Glutose) 15 gm Q15M PRN PO DECREASED GLUCOSE; Start 11/12/18 at 03:00 Glucose (Glutose) 22.5 gm Q15M PRN PO DECREASED GLUCOSE; Start 11/12/18 at 03: 00 Dextrose (D50w Syringe) 25 ml Q15M PRN IV DECREASED GLUCOSE; Start 11/12/18 at 03:00 Dextrose (D50w Syringe) 50 ml Q15M PRN IV DECREASED GLUCOSE; Start 11/12/18 at 03:00 Glucagon (Glucagen) 1 mg Q15M PRN IM DECREASED GLUCOSE; Start 11/12/18 at 03:00 Glucose (Glutose) 15 gm Q15M PRN BUCCAL DECREASED GLUCOSE; Start 11/12/18 at 03:00 Acetaminophen (Tylenol Tab) 650 mg Q4H PRN GTB MILD PAIN LEVEL 1-3 Last administered on 11/17/18at 05:29; Admin Dose 650 MG; Start 11/12/18 at 09:30 Acetylcysteine (Mucomyst) 3 ml BID RESP THERAPY NEB Last administered on 11/28/18at 08:12; Admin Dose 3 ML; Start 11/12/18 at 10:00 Atorvastatin Calcium (Lipitor) 80 mg QHS GTB Last administered on 11/27/18at 21: 08; Admin Dose 80 MG; Start 11/12/18 at 21:00 Bisacodyl (Dulcolax Supp) 10 mg Q24H PRN [place] CONSTIPATION; Start 11/12/18 at 09:30 Hydralazine HCl (Apresoline) 25 mg Q6 GTB Last administered on 11/28/18at 06:40; Admin Dose 25 MG; Start 11/12/18 at 12:00 Lansoprazole (Prevacid) 30 mg BID@0600,1800 GTB Last administered on 11/28/18 06:40; Admin Dose 30 MG; Start 11/12/18 at 18:00 Senna (Senokot) 2 tab BID GTB Last administered on 11/27/18 21:09; Admin Dose 2 TAB; Start 11/12/18 at 09:30 Sucralfate (Carafate Susp) 1 gm QID GTB Last administered on 11/27/18 21:08; Admin Dose 1 GM; Start 11/12/18 at 13:00 Valproate Sodium (Depakene Liquid Cup) 500 mg Q8 GTB Last administered on 11/28/18 06:40; Admin Dose 500 MG; Start 11/12/18 at 10:00 Insulin Human NPH (Humulin N) 28 unit Q8 SC Last administered on 11/28/18 06:51; Admin Dose 28 UNIT; Start 11/12/18 at 10:00 Sodium Biphosphate/ Sodium Phosphate (Fleet Enema) 133 ml DAILY PRN AR CONSTIPATION; Start 11/12/18 at 10:00 Lisinopril (Zestril) 10 mg DAILY GTB Last administered on 11/27/18 08:41; Admin Dose 10 MG; Start 11/14/18 at 09:00 Albuterol/ Ipratropium (Duoneb) 3 ml Q6H RESP THERAPY PRN HHN SHORTNESS OF BREATH Last administered on 11/28/18 08:12; Admin Dose 3 ML; Start 11/13/18 at 21:00 Vancomycin HCl (Vanco Iv Per Pharmacy) VANCOMYCIN PER PHARMA... PER PROTOCOL XX ; Start 11/17/18 at 13:00; Stop 12/01/18 at 12:59 Vancomycin HCl 1.25 gm/Sodium Chloride 250 ml @ 83.333 mls/ hr Q12H IVPB Last administered on 11/28/18 03:35; Admin Dose 83.333 MLS/HR; Start 11/18/18 at 03:00; Stop 12/01/18 at 12:59 Carvedilol (Coreg) 12.5 mg BID GTB Last administered on 11/27/18 21:08; Admin Dose 12.5 MG; Start 11/19/18 at 21:00 Insulin Aspart (Novolog Insulin Pen) NOVOLOG *MODERATE* ALGORI... Q6 SC ; Start 11/27/18 at 12:00 REGINA BUI Nov 28, 2018 08:39
[2018-11-28] MEDS: LISINOPRIL 5 MG TAB GTB SCH (08:47)
[2018-11-28] MEDS: SENNA TAB GTB SCH ×2 (08:47→20:08)
[2018-11-28] MEDS: SUCRALFATE (100 MG/ML) 10ML CUP GTB SCH ×4 (08:48→20:08)
--- NOTE | 2018-11-28 11:33 | CONS ---
Consultation Date/Type/Reason Admit Date/Time November 11, 2018 at 22:51 Initial Consult Date 11/15/18 Type of Consult Pulmonary/critical care Patient is a 52-year-old male who with a history of chronic encephalopathy admitted with worsening altered mental status from [facility] imaging of the brain showing acute intraparenchymal cerebral hemorrhage. Patient however has remained hemodynamically stable. Because of advanced encephalopathy patient was unable to give any history by himself whatsoever. Patient did not appear to be in any distress. Doing fairly well on T-piece via tracheostomy. Past medical history; 1. History of brain hemorrhage with right parietal craniotomy. 2. Chronic respiratory failure, patient maintained on T-piece now. 3. Seizure disorder. 4. CAD, status post PTCA in the past. 5. History of hypertension. 6. Diabetes. Medications; reviewed. Allergies; none. Social history, family history not available. Occupational history; patient is on disability now. Review of systems; unable to be obtained. General exam; middle-aged male, appears overweight, on T-piece via tracheostomy. Unresponsive. Currently in no distress. Requesting Provider: NIA DOMINGO MD Date/Time of Note DATE: 11/28/18 TIME: 11:32 24 HR Interval Summary Free Text/Dictation Patient's condition is stable. Has remained hemodynamically stable. General exam; middle-aged male, appears overweight, on T-piece via tracheostomy, unresponsive, currently in no distress. H ENT exam; supple neck, tracheostomy in place. Patient has fair dentition. There is a right parietal skull depression. Chest exam; diminished but clear breath sounds. S1-S2 audible, no murmurs. Regular rhythm. Abdomen exam; soft, G-tube in place. Protuberant. No organomegaly. Bowel sounds audible. Extremity exam; no peripheral edema clubbing. M[place]ER [place] DRIED SALT exam; patient remains totally unresponsive. Assessment recommendations; 1. Patient with history of intracranial bleed status post craniotomy and severe encephalopathy and chronic respiratory failure maintained on T-piece admitted with bilateral pneumonia with interval clinical improvement. 2. Stable seizure disorder. Continue current supportive care. Antibiotics per ID recommendations. Consider transfer to rehab center. Prognosis is very poor. Exam/Review of Systems Exam Vitals Vital Signs Date Temp Pulse Resp B/P (MAP) Pulse Ox O2 O2 Flow FiO2 Time Delivery Rate 11/28/18 98.5 84 18 108/61 99 Trach 10:07 (77) Collar 11/28/18 6.0 28 08:18 Intake and Output 11/27/18 11/27/18 11/28/18 1515:00 23:00 07:00 IntakeIntake Total 1940 ml 250 ml OutputOutput Total 2700 ml BalanceBalance -760 ml 250 ml Results Result Diagram: 11/28/18 0600 11/28/18 0600 Results 24hrs Laboratory Tests Test 11/27/18 12:03 11/27/18 13:22 11/27/18 13:59 11/27/18 17:21 Bedside Glucose 101 92 79 Vancomycin Level Trough 13.8 Test 11/27/18 23:11 11/28/18 06:00 11/28/18 06:39 Bedside Glucose 123 132 White Blood Count 15.9 #H Red Blood Count 3.93 L Hemoglobin 11.0 L Hematocrit 34.2 L Mean Corpuscular Volume 87.0 Mean Corpuscular 28.0 L Hemoglobin Mean Corpuscular 32.2 Hemoglobin Concent Red Cell Distribution 15.8 H Width Platelet Count 319 Mean Platelet Volume 10.4 Immature Granulocytes % 0.400 Neutrophils % 84.1 H Lymphocytes % 6.2 L Monocytes % 4.5 Eosinophils % 4.6 Basophils % 0.2 Nucleated Red Blood 0.0 Cells % Immature Granulocytes # 0.070 H Neutrophils # 13.4 H Lymphocytes # 1.0 Monocytes # 0.7 Eosinophils # 0.7 H Basophils # 0.0 Nucleated Red Blood 0.0 Cells # Sodium Level 132 L Potassium Level 4.4 Chloride Level 97 Carbon Dioxide Level 30 Anion Gap 5 Blood Urea Nitrogen 15 Creatinine 0.45 L Est Glomerular Filtrat > 60 Rate mL/min Glucose Level 134 Calcium Level 8.6 Medications Medication Current Medications Ondansetron HCl (Zofran Inj) 4 mg Q6H PRN IV NAUSEA AND/OR VOMITING; Start 11/11/18 at 23:00 Acetaminophen (Tylenol Liquid) 650 mg Q6H PRN PO FEVER Last administered on 11/20/18at 03:38; Admin Dose 650 MG; Start 11/11/18 at 23:00 Morphine Sulfate (morphine) 2 mg Q4H PRN IV PAIN LEVEL 7-10 Last administered on 11/12/18at 05:26; Admin Dose 2 MG; Start 11/11/18 at 23:00 Miscellaneous Information 1 ea NOTE XX ; Start 11/12/18 at 03:00 Glucose (Glutose) 15 gm Q15M PRN PO DECREASED GLUCOSE; Start 11/12/18 at 03:00 Glucose (Glutose) 22.5 gm Q15M PRN PO DECREASED GLUCOSE; Start 11/12/18 at 03:00 Dextrose (D50w Syringe) 25 ml Q15M PRN IV DECREASED GLUCOSE; Start 11/12/18 at 03:00 Dextrose (D50w Syringe) 50 ml Q15M PRN IV DECREASED GLUCOSE; Start 11/12/18 at 03:00 Glucagon (Glucagen) 1 mg Q15M PRN IM DECREASED GLUCOSE; Start 11/12/18 at 03:00 Glucose (Glutose) 15 gm Q15M PRN BUCCAL DECREASED GLUCOSE; Start 11/12/18 at 03:00 Acetaminophen (Tylenol Tab) 650 mg Q4H PRN GTB MILD PAIN LEVEL 1-3 Last administered on 11/17/18at 05:29; Admin Dose 650 MG; Start 11/12/18 at 09:30 Acetylcysteine (Mucomyst) 3 ml BID RESP THERAPY NEB Last administered on 11/28/18at 08:12; Admin Dose 3 ML; Start 11/12/18 at 10:00 Atorvastatin Calcium (Lipitor) 80 mg QHS GTB Last administered on 11/27/18at 21:08; Admin Dose 80 MG; Start 11/12/18 at 21:00 Bisacodyl (Dulcolax Supp) 10 mg Q24H PRN [place] CONSTIPATION; Start 11/12/18 at 09: 30 Hydralazine HCl (Apresoline) 25 mg Q6 GTB Last administered on 11/28/18at 06:40; Admin Dose 25 MG; Start 11/12/18 at 12:00 Lansoprazole (Prevacid) 30 mg BID@0600,1800 GTB Last administered on 11/28/18at 06:40; Admin Dose 30 MG; Start 11/12/18 at 18:00 Senna (Senokot) 2 tab BID GTB Last administered on 11/28/18at 08:47; Admin Dose 2 TAB; Start 11/12/18 at 09:30 Sucralfate (Carafate Susp) 1 gm QID GTB Last administered on 11/28/18 08:48; Admin Dose 1 GM; Start 11/12/18 at 13:00 Valproate Sodium (Depakene Liquid Cup) 500 mg Q8 GTB Last administered on 11/28/18 06:40; Admin Dose 500 MG; Start 11/12/18 at 10:00 Insulin Human NPH (Humulin N) 28 unit Q8 SC Last administered on 11/28/18 06:51; Admin Dose 28 UNIT; Start 11/12/18 at 10:00 Sodium Biphosphate/ Sodium Phosphate (Fleet Enema) 133 ml DAILY PRN [place] CONSTIPATION; Start 11/12/18 at 10:00 Lisinopril (Zestril) 10 mg DAILY GTB Last administered on 11/28/18 08:47; Admin Dose 10 MG; Start 11/14/18 at 09:00 Albuterol/ Ipratropium (Duoneb) 3 ml Q6H RESP THERAPY PRN HHN SHORTNESS OF BREATH Last administered on 11/28/18 08:12; Admin Dose 3 ML; Start 11/13/18 at 21:00 Vancomycin HCl (Vanco Iv Per Pharmacy) VANCOMYCIN PER PHARMA... PER PROTOCOL XX ; Start 11/17/18 at 13:00; Stop 12/01/18 at 12:59 Vancomycin HCl 1.25 gm/Sodium Chloride 250 ml @ 83.333 mls/ hr Q12H IVPB Last administered on 11/28/18 03:35; Admin Dose 83.333 MLS/HR; Start 11/18/18 at 03:00; Stop 12/01/18 at 12:59 Carvedilol (Coreg) 12.5 mg BID GTB Last administered on 11/28/18 08:47; Admin Dose 12.5 MG; Start 11/19/18 at 21:00 Insulin Aspart (Novolog Insulin Pen) NOVOLOG *MODERATE* ALGORI... Q6 SC ; Start 11/27/18 at 12:00 MER CHRIS Nov 28, 2018 11:33
--- NOTE | 2018-11-28 16:52 | CONS ---
Assessment/Plan Assessment/Plan Assessment/Plan (Daily) 1. 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 Sepsis due to possible HCAP and MRSA bacteremia 3. MRSA bacteremia 4. Possible HCAP 5. Intracranial hemorrhage - family decided for conservative management 6. h/o large CVA with subsequent vegetative state 7. Chronic respiratory failure s/p Tracheostomy 8 S/p G tube placemen t Plan: IV abx vancomycin as per ID for MRSA bacteremia, Renally dose all abx and monitor electrolytes BP stable with corege 12.5 mg PO BID and , lisinopril 10mg po daily Na imrpvoed to 132 today, other electrolytes stable, will follow up Consultation Date/Type/Reason Admit Date/Time November 11, 2018 at 22:51 Initial Consult Date 11/25/18 Type of Consult NEPHROLOGY Requesting Provider: NIA DOMINGO MD Date/Time of Note DATE: 11/28/18 TIME: 16:52 Exam/Review of Systems Exam Vitals Vital Signs Date Temp Pulse Resp B/P (MAP) Pulse Ox O2 O2 Flow FiO2 Time Delivery Rate 11/28/18 98.8 80 19 102/59 98 Trach 16:07 (73) Collar 11/28/18 6.0 15:27 11/28/18 28 08:18 Intake and Output 11/27/18 11/27/18 11/28/18 1515:00 23:00 07:00 IntakeIntake Total 1940 ml 250 ml OutputOutput Total 2700 ml BalanceBalance -760 ml 250 ml Exam Constitutional: non-verbal, frail Head: other (Status post right craniectomy) Neck: other (Trach) Respiratory: diminished breath sounds Cardiovascular: regular rate and rhythm Gastrointestinal: soft, non-tender, other (G-tube) Musculoskeletal: muscle weakness Extremities: normal pulses Neurological: other (Noncommunicative) Skin: nl turgor Results Result Diagram: 11/28/18 0600 11/28/18 0600 Results 24hrs Laboratory Tests Test 11/27/18 17:21 11/27/18 23:11 11/28/18 06:00 11/28/18 06:39 Bedside Glucose 79 123 132 White Blood Count 15.9 #H Red Blood Count 3.93 L Hemoglobin 11.0 L Hematocrit 34.2 L Mean Corpuscular Volume 87.0 Mean Corpuscular 28.0 L Hemoglobin Mean Corpuscular 32.2 Hemoglobin Concent Red Cell Distribution 15.8 H Width Platelet Count 319 Mean Platelet Volume 10.4 Immature Granulocytes % 0.400 Neutrophils % 84.1 H Lymphocytes % 6.2 L Monocytes % 4.5 Eosinophils % 4.6 Basophils % 0.2 Nucleated Red Blood 0.0 Cells % Immature Granulocytes # 0.070 H Neutrophils # 13.4 H Lymphocytes # 1.0 Monocytes # 0.7 Eosinophils # 0.7 H Basophils # 0.0 Nucleated Red Blood 0.0 Cells # Sodium Level 132 L Potassium Level 4.4 Chloride Level 97 Carbon Dioxide Level 30 Anion Gap 5 Blood Urea Nitrogen 15 Creatinine 0.45 L Est Glomerular Filtrat > 60 Rate mL/min Glucose Level 134 Calcium Level 8.6 Test 11/28/18 12:08 11/28/18 13:30 Bedside Glucose 139 143 Medications Medication Current Medications Ondansetron HCl (Zofran Inj) 4 mg Q6H PRN IV NAUSEA AND/OR VOMITING; Start 11/11/18 at 23:00 Acetaminophen (Tylenol Liquid) 650 mg Q6H PRN PO FEVER Last administered on 11/20/18at 03:38; Admin Dose 650 MG; Start 11/11/18 at 23:00 Morphine Sulfate (morphine) 2 mg Q4H PRN IV PAIN LEVEL 7-10 Last administered on 11/12/18at 05:26; Admin Dose 2 MG; Start 11/11/18 at 23:00 Miscellaneous Information 1 ea NOTE XX ; Start 11/12/18 at 03:00 Glucose (Glutose) 15 gm Q15M PRN PO DECREASED GLUCOSE; Start 11/12/18 at 03:00 Glucose (Glutose) 22.5 gm Q15M PRN PO DECREASED GLUCOSE; Start 11/12/18 at 03:00 Dextrose (D50w Syringe) 25 ml Q15M PRN IV DECREASED GLUCOSE; Start 11/12/18 at 03:00 Dextrose (D50w Syringe) 50 ml Q15M PRN IV DECREASED GLUCOSE; Start 11/12/18 at 03:00 Glucagon (Glucagen) 1 mg Q15M PRN IM DECREASED GLUCOSE; Start 11/12/18 at 03:00 Glucose (Glutose) 15 gm Q15M PRN BUCCAL DECREASED GLUCOSE; Start 11/12/18 at 03:00 Acetaminophen (Tylenol Tab) 650 mg Q4H PRN GTB MILD PAIN LEVEL 1-3 Last administered on 11/17/18 05:29; Admin Dose 650 MG; Start 11/12/18 at 09:30 Acetylcysteine (Mucomyst) 3 ml BID RESP THERAPY NEB Last administered on 11/28 08:12; Admin Dose 3 ML; Start 11/12/18 at 10:00 Atorvastatin Calcium (Lipitor) 80 mg QHS GTB Last administered on 11/27/18 21:08; Admin Dose 80 MG; Start 11/12/18 at 21:00 Bisacodyl (Dulcolax Supp) 10 mg Q24H PRN [place] CONSTIPATION; Start 11/12/18 at 09:30 Hydralazine HCl (Apresoline) 25 mg Q6 GTB Last administered on 11/28/18 12:09; Admin Dose 25 MG; Start 11/12/18 at 12:00 Lansoprazole (Prevacid) 30 mg BID@0600,1800 GTB Last administered on 11/28/18 06:40; Admin Dose 30 MG; Start 11/12/18 at 18:00 Senna (Senokot) 2 tab BID GTB Last administered on 11/28/18 08:47; Admin Dose 2 TAB; Start 11/12/18 at 09:30 Sucralfate (Carafate Susp) 1 gm QID GTB Last administered on 11/28/18 12:09; Admin Dose 1 GM; Start 11/12/18 at 13:00 Valproate Sodium (Depakene Liquid Cup) 500 mg Q8 GTB Last administered on 11/28/18 13:31; Admin Dose 500 MG; Start 11/12/18 at 10:00 Insulin Human NPH (Humulin N) 28 unit Q8 SC Last administered on 11/28/18 13:37; Admin Dose 28 UNIT; Start 11/12/18 at 10:00 Sodium Biphosphate/ Sodium Phosphate (Fleet Enema) 133 ml DAILY PRN SC CONSTIPATION; Start 11/12/18 at 10:00 Lisinopril (Zestril) 10 mg DAILY GTB Last administered on 11/28/18 08:47; Admin Dose 10 MG; Start 11/14/18 at 09:00 Albuterol/ Ipratropium (Duoneb) 3 ml Q6H RESP THERAPY PRN HHN SHORTNESS OF BREATH Last administered on 11/28/18at 08:12; Admin Dose 3 ML; Start 11/13/18 at 21:00 Vancomycin HCl (Vanco Iv Per Pharmacy) VANCOMYCIN PER PHARMA... PER PROTOCOL XX ; Start 11/17/18 at 13:00; Stop 12/01/18 at 12:59 Vancomycin HCl 1.25 gm/Sodium Chloride 250 ml @ 83.333 mls/ hr Q12H IVPB Last administered on 11/28/18at 15:45; Admin Dose 83.333 MLS/HR; Start 11/18/18 at 03:00; Stop 12/01/18 at 12:59 Carvedilol (Coreg) 12.5 mg BID GTB Last administered on 11/28/18at 08:47; Admin Dose 12.5 MG; Start 11/19/18 at 21:00 Insulin Aspart (Novolog Insulin Pen) NOVOLOG *MODERATE* ALGORI... Q6 SC ; Start 11/27/18 at 12:00 BABATUNDE KENNEY MD Nov 28, 2018 16:52
--- NOTE | 2018-11-28 19:33 | CONS ---
Assessment/Plan Assessment/Plan Hospital Course (Demo Recall) - intermittent fever due to bacteremia and possible HCAP - resolved - bacteremia due to MRSA on 11/15/2018; repeat blood cx on 11/17/2018 were negative - on vanco - possible HCAP, however, given the polymicrobial growth of his resp culture, all bacteria may be colonizers of the airway: providencia, proteus, pseudomonas, group B strep, klebsiella; repeat trach asp cx 11/17/2018 grew pseudomonas and proteus; Pt completed pip/tazo (11/15/2018-11/17/2018) and cefepime (11/18/2018- 11/22/18) - h/o CVA. 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 bxovdia-ftrtxllz-mmyqkdwc lobes; stable large subacute R frontal temporal parietal intraparenchymal hemorrhage, plus encephalomalacia/gliosis; stable moderate to severe ventriculomegaly; moderate b/l occipital horn acute intraventricular hemorrhage; chronic R paracentral pontine infarction; small chronic R cerebellar infarctions; L temporal lobe with associated encephalomalacia/gliosis within this region as well as laminar necrosis; moderate chronic microvascular ischemic changes; basilar dolichoectasia; extensive bilateral mastoid air cell effusions - aerococci in urine culture on 11/14/2018, probable colonization - chronic hypoxic resp failure - h/o tracheostomy placement - unresponsive state due to extensive CVA - diarrhea - on senna - hyponatremia - dry scaly skin Recommendations - continue IV vancomycin (re-start 11/17/2018-12/01/2018) for bacteremia due to MRSA; plan for 14 days - continue chlorhexidine bed bath (11/26/2018-) daily followed by moisturizer (ordered) - monitor skin for rash Management discussed with Dr. Kiran Consultation Date/Type/Reason Admit Date/Time November 11, 2018 at 22:51 Initial Consult Date 11/15/18 Type of Consult Infectious Disease Requesting Provider: NIA DOMINGO MD Date/Time of Note DATE: 11/28/18 TIME: 19:32 24 HR Interval Summary Free Text/Dictation No acute issues per d/w nursing. Subjective hx not possible: pt non-verbal Exam/Review of Systems Exam Vitals Vital Signs Date Temp Pulse Resp B/P (MAP) Pulse Ox O2 O2 Flow FiO2 Time Delivery Rate 11/28/18 98.9 79 19 136/65 100 Trach 18:06 (88) Collar 11/28/18 6.0 15:27 11/28/18 28 08:18 Intake and Output 11/27/18 11/27/18 11/28/18 1515:00 23:00 07:00 IntakeIntake Total 1940 ml 250 ml OutputOutput Total 2700 ml BalanceBalance -760 ml 250 ml Exam Constitutional: well developed, non-verbal, frail, obese, other (chronically debilitated) Psych: other (unable to assess) Head: other (craniectomy scar well healed, but site is full) Eyes: nl conjunctiva, nl lids ENMT: nl external ears & nose, nl nasal mucosa & septum, other (unable to examine OP) Neck: other (trach is midline and connected to T-piece) Respiratory: diminished breath sounds (coarse breath sounds with ); No wheezing Cardiovascular: regular rate and rhythm, nl pulses Gastrointestinal: soft, non-tender, other (G-tube intact; Rectal tube has been removed); No distended Genitourinary - Male: nl penis, nl scrotum, other (Nelson catheter intact with clear carlos manuel urine) Musculoskeletal: nl extremities to inspection, other (stiff to ROM) Extremities: No edema Neurological: unresponsive (withdraws to pain) Skin: nl turgor, other (Pt with dry, scaly, and flaky skin to L hand and back - improved from yesterday), other (multiple tattoos) Results Result Diagram: 11/28/18 0600 11/28/18 0600 Results 24hrs Laboratory Tests Test 11/27/18 23:11 11/28/18 06:00 11/28/18 06:39 11/28/18 12:08 Bedside Glucose 123 132 139 White Blood Count 15.9 #H Red Blood Count 3.93 L Hemoglobin 11.0 L Hematocrit 34.2 L Mean Corpuscular Volume 87.0 Mean Corpuscular 28.0 L Hemoglobin Mean Corpuscular 32.2 Hemoglobin Concent Red Cell Distribution 15.8 H Width Platelet Count 319 Mean Platelet Volume 10.4 Immature Granulocytes % 0.400 Neutrophils % 84.1 H Lymphocytes % 6.2 L Monocytes % 4.5 Eosinophils % 4.6 Basophils % 0.2 Nucleated Red Blood 0.0 Cells % Immature Granulocytes # 0.070 H Neutrophils # 13.4 H Lymphocytes # 1.0 Monocytes # 0.7 Eosinophils # 0.7 H Basophils # 0.0 Nucleated Red Blood 0.0 Cells # Sodium Level 132 L Potassium Level 4.4 Chloride Level 97 Carbon Dioxide Level 30 Anion Gap 5 Blood Urea Nitrogen 15 Creatinine 0.45 L Est Glomerular Filtrat > 60 Rate mL/min Glucose Level 134 Calcium Level 8.6 Test 11/28/18 13:30 11/28/18 17:17 Bedside Glucose 143 140 Medications Medication Current Medications Ondansetron HCl (Zofran Inj) 4 mg Q6H PRN IV NAUSEA AND/OR VOMITING; Start 11/11/18 at 23:00 Acetaminophen (Tylenol Liquid) 650 mg Q6H PRN PO FEVER Last administered on 11/20/18at 03:38; Admin Dose 650 MG; Start 11/11/18 at 23:00 Morphine Sulfate (morphine) 2 mg Q4H PRN IV PAIN LEVEL 7-10 Last administered on 11/12/18at 05:26; Admin Dose 2 MG; Start 11/11/18 at 23:00 Miscellaneous Information 1 ea NOTE XX ; Start 11/12/18 at 03:00 Glucose (Glutose) 15 gm Q15M PRN PO DECREASED GLUCOSE; Start 11/12/18 at 03:00 Glucose (Glutose) 22.5 gm Q15M PRN PO DECREASED GLUCOSE; Start 11/12/18 at 03:00 Dextrose (D50w Syringe) 25 ml Q15M PRN IV DECREASED GLUCOSE; Start 11/12/18 at 03:00 Dextrose (D50w Syringe) 50 ml Q15M PRN IV DECREASED GLUCOSE; Start 11/12/18 at 03:00 Glucagon (Glucagen) 1 mg Q15M PRN IM DECREASED GLUCOSE; Start 11/12/18 at 03:00 Glucose (Glutose) 15 gm Q15M PRN BUCCAL DECREASED GLUCOSE; Start 11/12/18 at 03:00 Acetaminophen (Tylenol Tab) 650 mg Q4H PRN GTB MILD PAIN LEVEL 1-3 Last administered on 11/17/18at 05:29; Admin Dose 650 MG; Start 11/12/18 at 09:30 Acetylcysteine (Mucomyst) 3 ml BID RESP THERAPY NEB Last administered on 11/28/18at 08:12; Admin Dose 3 ML; Start 11/12/18 at 10:00 Atorvastatin Calcium (Lipitor) 80 mg QHS GTB Last administered on 11/27/18 21:08; Admin Dose 80 MG; Start 11/12/18 at 21:00 Bisacodyl (Dulcolax Supp) 10 mg Q24H PRN [place] CONSTIPATION; Start 11/12/18 at 09:30 Hydralazine HCl (Apresoline) 25 mg Q6 GTB Last administered on 11/28/18 17:19; Admin Dose 25 MG; Start 11/12/18 at 12:00 Lansoprazole (Prevacid) 30 mg BID@0600,1800 GTB Last administered on 11/28/18 17:19; Admin Dose 30 MG; Start 11/12/18 at 18:00 Senna (Senokot) 2 tab BID GTB Last administered on 11/28/18 08:47; Admin Dose 2 TAB; Start 11/12/18 at 09:30 Sucralfate (Carafate Susp) 1 gm QID GTB Last administered on 11/28/18 17:19; Admin Dose 1 GM; Start 11/12/18 at 13:00 Valproate Sodium (Depakene Liquid Cup) 500 mg Q8 GTB Last administered on 11/28/18 13:31; Admin Dose 500 MG; Start 11/12/18 at 10:00 Insulin Human NPH (Humulin N) 28 unit Q8 SC Last administered on 11/28/18 13:37; Admin Dose 28 UNIT; Start 11/12/18 at 10:00 Sodium Biphosphate/ Sodium Phosphate (Fleet Enema) 133 ml DAILY PRN [place] CONSTIPATION; Start 11/12/18 at 10:00 Lisinopril (Zestril) 10 mg DAILY GTB Last administered on 11/28/18 08:47; Admin Dose 10 MG; Start 11/14/18 at 09:00 Albuterol/ Ipratropium (Duoneb) 3 ml Q6H RESP THERAPY PRN HHN SHORTNESS OF BREATH Last administered on 11/28/18 08:12; Admin Dose 3 ML; Start 11/13/18 at 21:00 Vancomycin HCl (Vanco Iv Per Pharmacy) VANCOMYCIN PER PHARMA... PER PROTOCOL XX ; Start 11/17/18 at 13:00; Stop 12/01/18 at 12:59 Vancomycin HCl 1.25 gm/Sodium Chloride 250 ml @ 83.333 mls/ hr Q12H IVPB Last administered on 11/28/18at 15:45; Admin Dose 83.333 MLS/HR; Start 11/18/18 at 03:00; Stop 12/01/18 at 12:59 Carvedilol (Coreg) 12.5 mg BID GTB Last administered on 11/28/18at 08:47; Admin Dose 12.5 MG; Start 11/19/18 at 21:00 Insulin Aspart (Novolog Insulin Pen) NOVOLOG *MODERATE* ALGORI... Q6 SC ; Start 11/27/18 at 12:00 BISHNU ACOSTA NP Nov 28, 2018 19:33
[2018-11-28] MEDS: ATORVASTATIN 80 MG TAB GTB SCH (20:08)
[2018-11-29] VITALS (19 sets, daily range): BP systolic 103–142; BP diastolic 57–90; PULSE 77–91; RESP 18–22
[2018-11-29] MEDS: VANCOMYCIN HCL 1.25 GM in SOD CHLORIDE 0.9% 250 ML IVPB SCH ×2 (02:53→15:29)
[2018-11-29] MEDS: LANSOPRAZOLE 30 MG CAP GTB SCH ×2 (05:12→18:00)
[2018-11-29] MEDS: VALPROIC ACID LIQUID CUP 250 MG/5 ML CUP GTB SCH ×3 (05:12→21:42)
[2018-11-29] MEDS: INSULIN ASPART [NOVOLOG] 3 ML PEN SC SCH ×4 (05:29→17:42)
[2018-11-29] MEDS: NPH, HUMAN INSULIN ISOPHANE 3ML VIAL SC SCH ×3 (05:38→21:50)
[2018-11-29] MEDS: ACETYLCYSTEINE 20% 4 ML VIAL NEB SCH ×2 (08:19→21:07)
[2018-11-29] MEDS: ALBUTEROL/IPRATROPIUM (NEB) 3 ML AMP HHN PRN ×2 (08:20→21:08)
[2018-11-29] MEDS: SUCRALFATE (100 MG/ML) 10ML CUP GTB SCH ×4 (08:56→21:10)
[2018-11-29] MEDS: SENNA TAB GTB SCH ×2 (08:57→21:10)
[2018-11-29] MEDS: LISINOPRIL 5 MG TAB GTB SCH (08:57)
--- NOTE | 2018-11-29 11:24 | CONS ---
Assessment/Plan Assessment/Plan Assessment/Plan (Daily) 1. 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 Sepsis due to possible HCAP and MRSA bacteremia 3. MRSA bacteremia 4. Possible HCAP 5. Intracranial hemorrhage - family decided for conservative management 6. h/o large CVA with subsequent vegetative state 7. Chronic respiratory failure s/p Tracheostomy 8 S/p G tube placemen t Plan: IV abx vancomycin as per ID for MRSA bacteremia, Renally dose all abx and monitor electrolytes- finishing vancomycin today BP stable with corege 12.5 mg PO BID and , lisinopril 10mg po daily Na imrpvoed to 134, BUN/Cr 16/0.3, other electrolytes stable will follow up Consultation Date/Type/Reason Admit Date/Time November 11, 2018 at 22:51 Initial Consult Date 11/25/18 Type of Consult NEPHROLOGY Requesting Provider: NIA DOMINGO MD Date/Time of Note DATE: 11/29/18 TIME: 11:24 24 HR Interval Summary Free Text/Dictation pt was intermittently confused , requiring restraints , BP stable Exam/Review of Systems Exam Vitals Vital Signs Date Temp Pulse Resp B/P (MAP) Pulse Ox O2 O2 Flow FiO2 Time Delivery Rate 11/29/18 98.8 85 20 140/71 100 Trach 10:00 (94) Collar 11/29/18 5.0 28 08:20 Intake and Output 11/28/18 11/28/18 11/29/18 1515:00 23:00 07:00 IntakeIntake Total 1440 ml 1290 ml 1340 ml OutputOutput Total 1500 ml 600 ml 1500 ml BalanceBalance -60 ml 690 ml -160 ml Results Result Diagram: 11/29/18 0551 11/29/18 0551 Results 24hrs Laboratory Tests Test 11/28/18 12:08 11/28/18 13:30 11/28/18 17:17 11/28/18 23:07 Bedside Glucose 139 143 140 126 Test 11/29/18 05:21 11/29/18 05:51 Bedside Glucose 116 White Blood Count 8.7 # Red Blood Count 3.97 L Hemoglobin 11.2 L Hematocrit 35.4 L Mean Corpuscular 89.2 Volume Mean Corpuscular 28.2 L Hemoglobin Mean Corpuscular 31.6 L Hemoglobin Concent Red Cell Distribution 15.7 H Width Platelet Count 296 Mean Platelet Volume 10.7 H Immature Granulocytes 0.300 % Neutrophils % 70.4 Lymphocytes % 14.5 L Monocytes % 6.2 Eosinophils % 8.3 H Basophils % 0.3 Nucleated Red Blood 0.0 Cells % Immature Granulocytes 0.030 # Neutrophils # 6.1 Lymphocytes # 1.3 Monocytes # 0.5 Eosinophils # 0.7 H Basophils # 0.0 Nucleated Red Blood 0.0 Cells # Sodium Level 134 L Potassium Level 4.8 Chloride Level 99 Carbon Dioxide Level 30 Anion Gap 5 Blood Urea Nitrogen 16 Creatinine 0.37 L Est Glomerular Filtrat > 60 Rate mL/min Glucose Level 120 Calcium Level 8.6 Medications Medication Current Medications Ondansetron HCl (Zofran Inj) 4 mg Q6H PRN IV NAUSEA AND/OR VOMITING; Start 11/11/18 at 23:00 Acetaminophen (Tylenol Liquid) 650 mg Q6H PRN PO FEVER Last administered on 11/20/18at 03:38; Admin Dose 650 MG; Start 11/11/18 at 23:00 Morphine Sulfate (morphine) 2 mg Q4H PRN IV PAIN LEVEL 7-10 Last administered on 11/12/18at 05:26; Admin Dose 2 MG; Start 11/11/18 at 23:00 Miscellaneous Information 1 ea NOTE XX ; Start 11/12/18 at 03:00 Glucose (Glutose) 15 gm Q15M PRN PO DECREASED GLUCOSE; Start 11/12/18 at 03:00 Glucose (Glutose) 22.5 gm Q15M PRN PO DECREASED GLUCOSE; Start 11/12/18 at 03:00 Dextrose (D50w Syringe) 25 ml Q15M PRN IV DECREASED GLUCOSE; Start 11/12/18 at 03:00 Dextrose (D50w Syringe) 50 ml Q15M PRN IV DECREASED GLUCOSE; Start 11/12/18 at 03:00 Glucagon (Glucagen) 1 mg Q15M PRN IM DECREASED GLUCOSE; Start 11/12/18 at 03:00 Glucose (Glutose) 15 gm Q15M PRN BUCCAL DECREASED GLUCOSE; Start 11/12/18 at 03:00 Acetaminophen (Tylenol Tab) 650 mg Q4H PRN GTB MILD PAIN LEVEL 1-3 Last administered on 11/17/18at 05:29; Admin Dose 650 MG; Start 11/12/18 at 09:30 Acetylcysteine (Mucomyst) 3 ml BID RESP THERAPY NEB Last administered on 11/29/18 08:19; Admin Dose 3 ML; Start 11/12/18 at 10:00 Atorvastatin Calcium (Lipitor) 80 mg QHS GTB Last administered on 11/28/18 20:08; Admin Dose 80 MG; Start 11/12/18 at 21:00 Bisacodyl (Dulcolax Supp) 10 mg Q24H PRN [place] CONSTIPATION; Start 11/12/18 at 09:30 Hydralazine HCl (Apresoline) 25 mg Q6 GTB Last administered on 11/29/18 05:12; Admin Dose 25 MG; Start 11/12/18 at 12:00 Lansoprazole (Prevacid) 30 mg BID@0600,1800 GTB Last administered on 11/29/18 05:12; Admin Dose 30 MG; Start 11/12/18 at 18:00 Senna (Senokot) 2 tab BID GTB Last administered on 11/29/18 08:57; Admin Dose 2 TAB; Start 11/12/18 at 09:30 Sucralfate (Carafate Susp) 1 gm QID GTB Last administered on 11/29/18 08:56; Admin Dose 1 GM; Start 11/12/18 at 13:00 Valproate Sodium (Depakene Liquid Cup) 500 mg Q8 GTB Last administered on 11/29/18 05:12; Admin Dose 500 MG; Start 11/12/18 at 10:00 Insulin Human NPH (Humulin N) 28 unit Q8 SC Last administered on 11/29/18 05:38; Admin Dose 28 UNIT; Start 11/12/18 at 10:00 Sodium Biphosphate/ Sodium Phosphate (Fleet Enema) 133 ml DAILY PRN [place] CONSTIPATION; Start 11/12/18 at 10:00 Lisinopril (Zestril) 10 mg DAILY GTB Last administered on 11/29/18 08:57; Admin Dose 10 MG; Start 11/14/18 at 09:00 Albuterol/ Ipratropium (Duoneb) 3 ml Q6H RESP THERAPY PRN HHN SHORTNESS OF BREATH Last administered on 11/29/18 08:20; Admin Dose 3 ML; Start 11/13/18 at 21:00 Vancomycin HCl (Vanco Iv Per Pharmacy) VANCOMYCIN PER PHARMA... PER PROTOCOL XX ; Start 11/17/18 at 13:00; Stop 12/01/18 at 12:59 Vancomycin HCl 1.25 gm/Sodium Chloride 250 ml @ 83.333 mls/ hr Q12H IVPB Last administered on 11/29/18at 02:53; Admin Dose 83.333 MLS/HR; Start 11/18/18 at 03:00; Stop 12/01/18 at 12:59 Carvedilol (Coreg) 12.5 mg BID GTB Last administered on 11/29/18at 08:57; Admin Dose 12.5 MG; Start 11/19/18 at 21:00 Insulin Aspart (Novolog Insulin Pen) NOVOLOG *MODERATE* ALGORI... Q6 SC ; Start 11/27/18 at 12:00 BABATUNDE KENNEY MD Nov 29, 2018 11:24
--- NOTE | 2018-11-29 13:02 | CONS ---
Assessment/Plan Assessment/Plan Hospital Course (Demo Recall) - intermittent fever due to bacteremia and possible HCAP - resolved - bacteremia due to MRSA on 11/15/2018; repeat blood cx on 11/17/2018 were negative - on vanco - possible HCAP, however, given the polymicrobial growth of his resp culture, all bacteria may be colonizers of the airway: providencia, proteus, pseudomonas, group B strep, klebsiella; repeat trach asp cx 11/17/2018 grew pseudomonas and proteus; Pt completed pip/tazo (11/15/2018-11/17/2018) and cefepime (11/18/2018- 11/22/18) - h/o CVA. 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 orwlhev-puodkods-mhpfqsil lobes; stable large subacute R frontal temporal parietal intraparenchymal hemorrhage, plus encephalomalacia/gliosis; stable moderate to severe ventriculomegaly; moderate b/l occipital horn acute intraventricular hemorrhage; chronic R paracentral pontine infarction; small chronic R cerebellar infarctions; L temporal lobe with associated encephalomalacia/gliosis within this region as well as laminar necrosis; moderate chronic microvascular ischemic changes; basilar dolichoectasia; extensive bilateral mastoid air cell effusions - aerococci in urine culture on 11/14/2018, probable colonization - chronic hypoxic resp failure - h/o tracheostomy placement - unresponsive state due to extensive CVA - diarrhea - on senna - hyponatremia - dry scaly skin Recommendations - continue IV vancomycin (re-start 11/17/2018-12/01/2018) for bacteremia due to MRSA; plan for 14 days - continue chlorhexidine bed bath (11/26/2018-) daily followed by moisturizer (ordered) - monitor skin for rash Management was d/w BRADLEY Kauffman at bedside, and with Dr. Kiran via [place] messaging. Consultation Date/Type/Reason Admit Date/Time November 11, 2018 at 22:51 Initial Consult Date 11/15/18 Type of Consult ID Requesting Provider: NIA DOMINGO MD Date/Time of Note DATE: 11/29/18 TIME: 13:01 24 HR Interval Summary Free Text/Dictation per d/w BRADLEY Kauffman at bedside, patient was reaching and pulling at trach earlier, now with a soft wrist restraint on. Has remained afebrile, WBC today improved 8.7. No acute issues were reported. Subjective hx not possible: pt non-verbal Exam/Review of Systems Exam Vitals Vital Signs Date Temp Pulse Resp B/P (MAP) Pulse Ox O2 O2 Flow FiO2 Time Delivery Rate 11/29/18 91 12:05 11/29/18 98.0 20 132/69 100 Trach 11:58 (90) Collar 11/29/18 5.0 28 08:20 Allergies Coded Allergies No Known Drug Allergies (Verified Allergy, Mild, 06/30/18) Intake and Output 11/28/18 11/28/18 11/29/18 1515:00 23:00 07:00 IntakeIntake Total 1440 ml 1290 ml 1340 ml OutputOutput Total 1500 ml 600 ml 1500 ml BalanceBalance -60 ml 690 ml -160 ml Exam Constitutional: well developed, non-verbal, obese, other (chronically roel ilitated) Psych: other (MORENA) Head: other (well healed craniectomy scar, site protrudes outward) Eyes: nl conjunctiva, nl lids ENMT: nl external ears & nose, nl nasal mucosa & septum, other (unable to examine OP) Neck: other (trach midline, site c/d/i, on T piece) Respiratory: normal air movement, diminished breath sounds, respirations (regular); No wheezing Cardiovascular: regular rate and rhythm, nl pulses Gastrointestinal: soft, non-tender, other (GT site is c/d/i); No distended, No tender Genitourinary - Male: nl penis, nl scrotum, other (f/c draining yellow urine) Musculoskeletal: nl extremities to inspection Extremities: normal pulses; No edema Neurological: unresponsive (withdraws to tactile stim) Skin: nl turgor, other (+tattoos ); No rash or lesions Results Result Diagram: 11/29/18 0511/29/18 0551 Results 24hrs Laboratory Tests Test 11/28/18 13:30 11/28/18 17:17 11/28/18 23:07 11/29/18 05:21 Bedside Glucose 143 140 126 116 Test 11/29/18 05:51 White Blood Count 8.7 # Red Blood Count 3.97 L Hemoglobin 11.2 L Hematocrit 35.4 L Mean Corpuscular 89.2 Volume Mean Corpuscular 28.2 L Hemoglobin Mean Corpuscular 31.6 L Hemoglobin Concent Red Cell Distribution 15.7 H Width Platelet Count 296 Mean Platelet Volume 10.7 H Immature Granulocytes 0.300 % Neutrophils % 70.4 Lymphocytes % 14.5 L Monocytes % 6.2 Eosinophils % 8.3 H Basophils % 0.3 Nucleated Red Blood 0.0 Cells % Immature Granulocytes 0.030 # Neutrophils # 6.1 Lymphocytes # 1.3 Monocytes # 0.5 Eosinophils # 0.7 H Basophils # 0.0 Nucleated Red Blood 0.0 Cells # Sodium Level 134 L Potassium Level 4.8 Chloride Level 99 Carbon Dioxide Level 30 Anion Gap 5 Blood Urea Nitrogen 16 Creatinine 0.37 L Est Glomerular Filtrat > 60 Rate mL/min Glucose Level 120 Calcium Level 8.6 Medications Medication Current Medications Ondansetron HCl (Zofran Inj) 4 mg Q6H PRN IV NAUSEA AND/OR VOMITING; Start 11/11/18 at 23:00 Acetaminophen (Tylenol Liquid) 650 mg Q6H PRN PO FEVER Last administered on 11/20/18at 03:38; Admin Dose 650 MG; Start 11/11/18 at 23:00 Morphine Sulfate (morphine) 2 mg Q4H PRN IV PAIN LEVEL 7-10 Last administered on 11/12/18at 05:26; Admin Dose 2 MG; Start 11/11/18 at 23:00 Miscellaneous Information 1 ea NOTE XX ; Start 11/12/18 at 03:00 Glucose (Glutose) 15 gm Q15M PRN PO DECREASED GLUCOSE; Start 11/12/18 at 03:00 Glucose (Glutose) 22.5 gm Q15M PRN PO DECREASED GLUCOSE; Start 11/12/18 at 03:00 Dextrose (D50w Syringe) 25 ml Q15M PRN IV DECREASED GLUCOSE; Start 11/12/18 at 03:00 Dextrose (D50w Syringe) 50 ml Q15M PRN IV DECREASED GLUCOSE; Start 11/12/18 at 03:00 Glucagon (Glucagen) 1 mg Q15M PRN IM DECREASED GLUCOSE; Start 11/12/18 at 03:00 Glucose (Glutose) 15 gm Q15M PRN BUCCAL DECREASED GLUCOSE; Start 11/12/18 at 03:00 Acetaminophen (Tylenol Tab) 650 mg Q4H PRN GTB MILD PAIN LEVEL 1-3 Last administered on 11/17/18 05:29; Admin Dose 650 MG; Start 11/12/18 at 09:30 Acetylcysteine (Mucomyst) 3 ml BID RESP THERAPY NEB Last administered on 11/29/18 08:19; Admin Dose 3 ML; Start 11/12/18 at 10:00 Atorvastatin Calcium (Lipitor) 80 mg QHS GTB Last administered on 11/28/18 20:08; Admin Dose 80 MG; Start 11/12/18 at 21:00 Bisacodyl (Dulcolax Supp) 10 mg Q24H PRN [place] CONSTIPATION; Start 11/12/18 at 09:30 Hydralazine HCl (Apresoline) 25 mg Q6 GTB Last administered on 11/29/18 05:12; Admin Dose 25 MG; Start 11/12/18 at 12:00 Lansoprazole (Prevacid) 30 mg BID@0600,1800 GTB Last administered on 11/29/18 05:12; Admin Dose 30 MG; Start 11/12/18 at 18:00 Senna (Senokot) 2 tab BID GTB Last administered on 11/29/18 08:57; Admin Dose 2 TAB; Start 11/12/18 at 09:30 Sucralfate (Carafate Susp) 1 gm QID GTB Last administered on 11/29/18 08:56; Admin Dose 1 GM; Start 11/12/18 at 13:00 Valproate Sodium (Depakene Liquid Cup) 500 mg Q8 GTB Last administered on 11/29/18 05:12; Admin Dose 500 MG; Start 11/12/18 at 10:00 Insulin Human NPH (Humulin N) 28 unit Q8 SC Last administered on 11/29/18 05:38; Admin Dose 28 UNIT; Start 11/12/18 at 10:00 Sodium Biphosphate/ Sodium Phosphate (Fleet Enema) 133 ml DAILY PRN [place] CONSTIPA TION; Start 11/12/18 at 10:00 Lisinopril (Zestril) 10 mg DAILY GTB Last administered on 11/29/18 08:57; Admin Dose 10 MG; Start 11/14/18 at 09:00 Albuterol/ Ipratropium (Duoneb) 3 ml Q6H RESP THERAPY PRN HHN SHORTNESS OF BREATH Last administered on 11/29/18at 08:20; Admin Dose 3 ML; Start 11/13/18 at 21:00 Vancomycin HCl (Vanco Iv Per Pharmacy) VANCOMYCIN PER PHARMA... PER PROTOCOL XX ; Start 11/17/18 at 13:00; Stop 12/01/18 at 12:59 Vancomycin HCl 1.25 gm/Sodium Chloride 250 ml @ 83.333 mls/ hr Q12H IVPB Last administered on 11/29/18at 02:53; Admin Dose 83.333 MLS/HR; Start 11/18/18 at 03: 00; Stop 12/01/18 at 12:59 Carvedilol (Coreg) 12.5 mg BID GTB Last administered on 11/29/18at 08:57; Admin Dose 12.5 MG; Start 11/19/18 at 21:00 Insulin Aspart (Novolog Insulin Pen) NOVOLOG *MODERATE* ALGORI... Q6 SC ; Start 11/27/18 at 12:00 LENNIE LAM NP Nov 29, 2018 13:02
--- NOTE | 2018-11-29 13:07 | CONS ---
Assessment/Plan Assessment/Plan Hospital Course (Demo Recall) IMPRESSION: 1. Abnormal electrocardiogram, assess for acute coronary syndrome.-neg trop x 3/EF 30-35% 2. Cardiomyopathy with decreased left ventricular ejection fraction. EF 30-35% by echo this admit 3. Congestive heart failure, systolic, chronic. 4. Hypertension-well controlled 5. Intracranial hemorrhage. 6. Chronic encephalopathy. 7. Prior craniectomy. 8. History of prior PTCA and stent placement. 9. Anemia. 10. Tachycardia-S tach today ? etiology, autonomic dysfunction 11.fevers-defervesced 12. SVT-overnight at 160-170 regular, ? AVNRT. no recurrence mutiple days Recc: -Tele -continue hydralazine/ACEI/coreg -Continue daily lasix and follow volume status closely -Continue statinl -Continue abx's and f/u cx data -Now DNR Consultation Date/Type/Reason Admit Date/Time November 11, 2018 at 22:51 Initial Consult Date 11/12/18 Type of Consult Cardiology Reason for Consultation cardiomyopathy Requesting Provider: NIA DOMINGO MD Date/Time of Note DATE: 11/29/18 TIME: 13:06 Exam/Review of Systems Vital Signs Vitals Vital Signs Date Temp Pulse Resp B/P (MAP) Pulse Ox O2 O2 Flow FiO2 Time Delivery Rate 11/29/18 91 12:05 11/29/18 98.0 20 132/69 100 Trach 11:58 (90) Collar 11/29/18 5.0 28 08:20 Intake and Output 11/28/18 11/28/18 11/29/18 1515:00 23:00 07:00 IntakeIntake Total 1440 ml 1290 ml 1340 ml OutputOutput Total 1500 ml 600 ml 1500 ml BalanceBalance -60 ml 690 ml -160 ml Exam Exam Review of Systems: CONSTITUTIONAL: No fevers, chills. PULMONARY: No sob CARDIOVASCULAR: No chest pain/palpitations GASTROINTESTINAL: No nausea/vomiting. GENITOURINARY: No hematuria/dysuria. MUSCULOSKELETAL: No myagias/arthalgias. PSYCHIATRIC: The patient denies depression. NEUROLOGIC: No weakness Constitutional: other (encephalopathicv) Psych: no complaints Head: normocephalic ENMT: mucosa pink and moist Neck: supple, jvd (9 cm water), other (trached) Respiratory: diminished breath sounds (at bases/B) Cardiovascular: regular rate and rhythm Gastrointestinal: soft, non-tender Musculoskeletal: muscle tone (normal) Extremities: edema (none) Neurological: other (No focal deficits) Labs Result Diagram: 11/29/18 0551 11/29/18 0551 Results 24hrs Laboratory Tests Test 11/28/18 13:30 11/28/18 17:17 11/28/18 23:07 11/29/18 05:21 Bedside Glucose 143 140 126 116 Test 11/29/18 05:51 White Blood Count 8.7 # Red Blood Count 3.97 L Hemoglobin 11.2 L Hematocrit 35.4 L Mean Corpuscular 89.2 Volume Mean Corpuscular 28.2 L Hemoglobin Mean Corpuscular 31.6 L Hemoglobin Concent Red Cell Distribution 15.7 H Width Platelet Count 296 Mean Platelet Volume 10.7 H Immature Granulocytes 0.300 % Neutrophils % 70.4 Lymphocytes % 14.5 L Monocytes % 6.2 Eosinophils % 8.3 H Basophils % 0.3 Nucleated Red Blood 0.0 Cells % Immature Granulocytes 0.030 # Neutrophils # 6.1 Lymphocytes # 1.3 Monocytes # 0.5 Eosinophils # 0.7 H Basophils # 0.0 Nucleated Red Blood 0.0 Cells # Sodium Level 134 L Potassium Level 4.8 Chloride Level 99 Carbon Dioxide Level 30 Anion Gap 5 Blood Urea Nitrogen 16 Creatinine 0.37 L Est Glomerular Filtrat > 60 Rate mL/min Glucose Level 120 Calcium Level 8.6 Medications Medications Current Medications Ondansetron HCl (Zofran Inj) 4 mg Q6H PRN IV NAUSEA AND/OR VOMITING; Start 11/11/18 at 23:00 Acetaminophen (Tylenol Liquid) 650 mg Q6H PRN PO FEVER Last administered on 11/20/18at 03:38; Admin Dose 650 MG; Start 11/11/18 at 23:00 Morphine Sulfate (morphine) 2 mg Q4H PRN IV PAIN LEVEL 7-10 Last administered on 11/12/18at 05:26; Admin Dose 2 MG; Start 11/11/18 at 23:00 Miscellaneous Information 1 ea NOTE XX ; Start 11/12/18 at 03:00 Glucose (Glutose) 15 gm Q15M PRN PO DECREASED GLUCOSE; Start 11/12/18 at 03:00 Glucose (Glutose) 22.5 gm Q15M PRN PO DECREASED GLUCOSE; Start 11/12/18 at 03:00 Dextrose (D50w Syringe) 25 ml Q15M PRN IV DECREASED GLUCOSE; Start 11/12/18 at 03:00 Dextrose (D50w Syringe) 50 ml Q15M PRN IV DECREASED GLUCOSE; Start 11/12/18 at 03:00 Glucagon (Glucagen) 1 mg Q15M PRN IM DECREASED GLUCOSE; Start 11/12/18 at 03:00 Glucose (Glutose) 15 gm Q15M PRN BUCCAL DECREASED GLUCOSE; Start 11/12/18 at 03:00 Acetaminophen (Tylenol Tab) 650 mg Q4H PRN GTB MILD PAIN LEVEL 1-3 Last administered on 11/17/18 05:29; Admin Dose 650 MG; Start 11/12/18 at 09:30 Acetylcysteine (Mucomyst) 3 ml BID RESP THERAPY NEB Last administered on 11/29/18 08:19; Admin Dose 3 ML; Start 11/12/18 at 10:00 Atorvastatin Calcium (Lipitor) 80 mg QHS GTB Last administered on 11/28/18at 20:08; Admin Dose 80 MG; Start 11/12/18 at 21:00 Bisacodyl (Dulcolax Supp) 10 mg Q24H PRN [place] CONSTIPATION; Start 11/12/18 at 09:30 Hydralazine HCl (Apresoline) 25 mg Q6 GTB Last administered on 11/29/18 05:12; Admin Dose 25 MG; Start 11/12/18 at 12:00 Lansoprazole (Prevacid) 30 mg BID@0600,1800 GTB Last administered on 11/29/18 05:12; Admin Dose 30 MG; Start 11/12/18 at 18:00 Senna (Senokot) 2 tab BID GTB Last administered on 11/29/18 08:57; Admin Dose 2 TAB; Start 11/12/18 at 09:30 Sucralfate (Carafate Susp) 1 gm QID GTB Last administered on 11/29/18 08:56; Admin Dose 1 GM; Start 11/12/18 at 13:00 Valproate Sodium (Depakene Liquid Cup) 500 mg Q8 GTB Last administered on 11/29/18 05:12; Admin Dose 500 MG; Start 11/12/18 at 10:00 Insulin Human NPH (Humulin N) 28 unit Q8 SC Last administered on 11/29/18at 05:38; Admin Dose 28 UNIT; Start 11/12/18 at 10:00 Sodium Biphosphate/ Sodium Phosphate (Fleet Enema) 133 ml DAILY PRN [place] CONSTIPATION; Start 11/12/18 at 10:00 Lisinopril (Zestril) 10 mg DAILY GTB Last administered on 11/29/18at 08:57; Admin Dose 10 MG; Start 11/14/18 at 09:00 Albuterol/ Ipratropium (Duoneb) 3 ml Q6H RESP THERAPY PRN HHN SHORTNESS OF BREATH Last administered on 11/29/18at 08:20; Admin Dose 3 ML; Start 11/13/18 at 21:00 Vancomycin HCl (Vanco Iv Per Pharmacy) VANCOMYCIN PER PHARMA... PER PROTOCOL XX ; Start 11/17/18 at 13:00; Stop 12/01/18 at 12:59 Vancomycin HCl 1.25 gm/Sodium Chloride 250 ml @ 83.333 mls/ hr Q12H IVPB Last administered on 11/29/18at 02:53; Admin Dose 83.333 MLS/HR; Start 11/18/18 at 03:00; Stop 12/01/18 at 12:59 Carvedilol (Coreg) 12.5 mg BID GTB Last administered on 11/29/18at 08:57; Admin Dose 12.5 MG; Start 11/19/18 at 21:00 Insulin Aspart (Novolog Insulin Pen) NOVOLOG *MODERATE* ALGORI... Q6 SC ; Start 11/27/18 at 12:00 MAE ROSALES Nov 29, 2018 13:07
--- NOTE | 2018-11-29 15:19 | EN ---
Date/Time of Note Date/Time of Note DATE: 11/29/18 TIME: 15:18 Event Note Medicine Medicine Event Note I reviewed EMR. I coordinated with DOOR LINER HELPER Brown. I directed care to DOOR LINER HELPER today via telemediq. MOLINA BONILLA MD Nov 29, 2018 15:19
--- NOTE | 2018-11-29 15:47 | PN ---
Date/Time of Note Date/Time of Note DATE: 11/29/18 TIME: 15:43 Assessment/Plan VTE Prophylaxis [place] [facility] [place]0 risk: 9 SCD applied (from [facility] [place] Yes Pharmacological prophylaxis: NA/contraindicated Pharm contraindication: bleeding Lines/Catheters IV Catheter Type (from [facility]): Peripheral IV Central line still needed: Yes Urinary Cath still in place: Yes Reason Cath still needed: urinary retention Assessment/Plan Hospital Course Patient continues on vancomycin for MRSA bacteremia. Sodium was 134, no diarrhea per RN patient remains hemodynamically stable on cool aerosol mist via tracheostomy. DC planning. Assessment/Plan -Hyponatremia. Dr. Betts, nephrology consultation. -Diarrhea, will check stool for C. difficile. -Intracranial hemorrhage, Dr. Espana is following in neurosurgery consultation. Family does not want any aggressive treatment. -Sepsis with fever and leukocytosis most likely secondary to HCAP, resolved. Completed treatment with antibiotics for pneumonia. Dr. Kiran is following in infection disease consultation. -MRSA bacteremia, continue Vanco until 12/01/18. -Recent history of right hemicraniectomy, details are not available. Records requested. -Chronic respiratory failure with tracheostomy, patient is currently on T-tube. -Healthcare associated pneumonia, continue antibiotics. -Coronary artery disease, status post PTCA with stent placement -Ischemic cardiomyopathy -Diabetes -Dysphagia with G-tube -Dyslipidemia -Obesity with BMI of 35.3 -DNR status Further recommendations depends on clinical course. Plan of care discussed with Dr. Coretz. Result Diagram: 11/29/18 0551 11/29/18 0551 Results 24hrs Laboratory Tests Test 11/28/18 17:17 11/28/18 23:07 11/29/18 05:21 11/29/18 05:51 Bedside Glucose 140 126 116 White Blood Count 8.7 # Red Blood Count 3.97 L Hemoglobin 11.2 L Hematocrit 35.4 L Mean Corpuscular 89.2 Volume Mean Corpuscular 28.2 L Hemoglobin Mean Corpuscular 31.6 L Hemoglobin Concent Red Cell Distribution 15.7 H Width Platelet Count 296 Mean Platelet Volume 10.7 H Immature Granulocytes 0.300 % Neutrophils % 70.4 Lymphocytes % 14.5 L Monocytes % 6.2 Eosinophils % 8.3 H Basophils % 0.3 Nucleated Red Blood 0.0 Cells % Immature Granulocytes 0.030 # Neutrophils # 6.1 Lymphocytes # 1.3 Monocytes # 0.5 Eosinophils # 0.7 H Basophils # 0.0 Nucleated Red Blood 0.0 Cells # Sodium Level 134 L Potassium Level 4.8 Chloride Level 99 Carbon Dioxide Level 30 Anion Gap 5 Blood Urea Nitrogen 16 Creatinine 0.37 L Est Glomerular > 60 Filtrat Rate mL/min Glucose Level 120 Calcium Level 8.6 Test 11/29/18 13:05 Bedside Glucose 101 Exam/Review of Systems Exam Vitals Vital Signs Date Temp Pulse Resp B/P (MAP) Pulse Ox O2 O2 Flow FiO2 Time Delivery Rate 11/29/18 15:02 11/29/18 5.0 28 13:35 Intake and Output 11/28/18 11/28/18 11/29/18 1515:00 23:00 07:00 IntakeIntake Total 1440 ml 1290 ml 1340 ml OutputOutput Total 1500 ml 600 ml 1500 ml BalanceBalance -60 ml 690 ml -160 ml Exam Constitutional: non-verbal, frail Head: other (Status post right craniectomy) Neck: other (Trach) Respiratory: diminished breath sounds Cardiovascular: regular rate and rhythm Gastrointestinal: soft, non-tender, other (G-tube) Musculoskeletal: muscle weakness Extremities: normal pulses Neurological: other (Noncommunicative) Skin: nl turgor Results Results 24hrs Laboratory Tests Test 11/28/18 17:17 11/28/18 23:07 11/29/18 05:21 11/29/18 05:51 Bedside Glucose 140 126 116 White Blood Count 8.7 # Red Blood Count 3.97 L Hemoglobin 11.2 L Hematocrit 35.4 L Mean Corpuscular 89.2 Volume Mean Corpuscular 28.2 L Hemoglobin Mean Corpuscular 31.6 L Hemoglobin Concent Red Cell Distribution 15.7 H Width Platelet Count 296 Mean Platelet Volume 10.7 H Immature Granulocytes 0.300 % Neutrophils % 70.4 Lymphocytes % 14.5 L Monocytes % 6.2 Eosinophils % 8.3 H Basophils % 0.3 Nucleated Red Blood 0.0 Cells % Immature Granulocytes 0.030 # Neutrophils # 6.1 Lymphocytes # 1.3 Monocytes # 0.5 Eosinophils # 0.7 H Basophils # 0.0 Nucleated Red Blood 0.0 Cells # Sodium Level 134 L Potassium Level 4.8 Chloride Level 99 Carbon Dioxide Level 30 Anion Gap 5 Blood Urea Nitrogen 16 Creatinine 0.37 L Est Glomerular > 60 Filtrat Rate mL/min Glucose Level 120 Calcium Level 8.6 Test 11/29/18 13:05 Bedside Glucose 101 Medications Medication Current Medications Ondansetron HCl (Zofran Inj) 4 mg Q6H PRN IV NAUSEA AND/OR VOMITING; Start 11/11/18 at 23:00 Acetaminophen (Tylenol Liquid) 650 mg Q6H PRN PO FEVER Last administered on 11/20/18at 03:38; Admin Dose 650 MG; Start 11/11/18 at 23:00 Morphine Sulfate (morphine) 2 mg Q4H PRN IV PAIN LEVEL 7-10 Last administered on 11/12/18at 05:26; Admin Dose 2 MG; Start 11/11/18 at 23:00 Miscellaneous Information 1 ea NOTE XX ; Start 11/12/18 at 03:00 Glucose (Glutose) 15 gm Q15M PRN PO DECREASED GLUCOSE; Start 11/12/18 at 03:00 Glucose (Glutose) 22.5 gm Q15M PRN PO DECREASED GLUCOSE; Start 11/12/18 at 03:00 Dextrose (D50w Syringe) 25 ml Q15M PRN IV DECREASED GLUCOSE; Start 11/12/18 at 03:00 Dextrose (D50w Syringe) 50 ml Q15M PRN IV DECREASED GLUCOSE; Start 11/12/18 at 03:00 Glucagon (Glucagen) 1 mg Q15M PRN IM DECREASED GLUCOSE; Start 11/12/18 at 03:00 Glucose (Glutose) 15 gm Q15M PRN BUCCAL DECREASED GLUCOSE; Start 11/12/18 at 03:00 Acetaminophen (Tylenol Tab) 650 mg Q4H PRN GTB MILD PAIN LEVEL 1-3 Last administered on 11/17/18at 05:29; Admin Dose 650 MG; Start 11/12/18 at 09:30 Acetylcysteine (Mucomyst) 3 ml BID RESP THERAPY NEB Last administered on 11/29/18at 08:19; Admin Dose 3 ML; Start 11/12/18 at 10:00 Atorvastatin Calcium (Lipitor) 80 mg QHS GTB Last administered on 11/28/18at 20:08; Admin Dose 80 MG; Start 11/12/18 at 21:00 Bisacodyl (Dulcolax Supp) 10 mg Q24H PRN [place] CONSTIPATION; Start 11/12/18 at 09:30 Hydralazine HCl (Apresoline) 25 mg Q6 GTB Last administered on 11/29/18 13:06; Admin Dose 25 MG; Start 11/12/18 at 12:00 Lansoprazole (Prevacid) 30 mg BID@0600,1800 GTB Last administered on 11/29/18 05:12; Admin Dose 30 MG; Start 11/12/18 at 18:00 Senna (Senokot) 2 tab BID GTB Last administered on 11/29/18 08:57; Admin Dose 2 TAB; Start 11/12/18 at 09:30 Sucralfate (Carafate Susp) 1 gm QID GTB Last administered on 11/29/18 13:05; Admin Dose 1 GM; Start 11/12/18 at 13:00 Valproate Sodium (Depakene Liquid Cup) 500 mg Q8 GTB Last administered on 11/29/18 15:29; Admin Dose 500 MG; Start 11/12/18 at 10:00 Insulin Human NPH (Humulin N) 28 unit Q8 SC Last administered on 11/29/18 13:15; Admin Dose 28 UNIT; Start 11/12/18 at 10:00 Sodium Biphosphate/ Sodium Phosphate (Fleet Enema) 133 ml DAILY PRN [place] CONSTIPATION; Start 11/12/18 at 10:00 Lisinopril (Zestril) 10 mg DAILY GTB Last administered on 11/29/18 08:57; Admin Dose 10 MG; Start 11/14/18 at 09:00 Albuterol/ Ipratropium (Duoneb) 3 ml Q6H RESP THERAPY PRN HHN SHORTNESS OF BREATH Last administered on 11/29/18 08:20; Admin Dose 3 ML; Start 11/13/18 at 21:00 Vancomycin HCl (Vanco Iv Per Pharmacy) VANCOMYCIN PER PHARMA... PER PROTOCOL XX ; Start 11/17/18 at 13:00; Stop 12/01/18 at 12:59 Vancomycin HCl 1.25 gm/Sodium Chloride 250 ml @ 83.333 mls/ hr Q12H IVPB Last administered on 11/29/18 15:29; Admin Dose 83.333 MLS/HR; Start 11/18/18 at 03:00; Stop 12/01/18 at 12:59 Carvedilol (Coreg) 12.5 mg BID GTB Last administered on 11/29/18at 08:57; Admin Dose 12.5 MG; Start 11/19/18 at 21:00 Insulin Aspart (Novolog Insulin Pen) NOVOLOG *MODERATE* ALGORI... Q6 SC ; Start 11/27/18 at 12:00 SETH AVENDANO Nov 29, 2018 15:47
[2018-11-29] MEDS: ATORVASTATIN 80 MG TAB GTB SCH (21:10)
[2018-11-30] VITALS (17 sets, daily range): BP systolic 98–141; BP diastolic 53–82; PULSE 80–97; RESP 20
[2018-11-30] MEDS: INSULIN ASPART [NOVOLOG] 3 ML PEN SC SCH ×5 (00:02→23:53)
[2018-11-30] MEDS: VANCOMYCIN HCL 1.25 GM in SOD CHLORIDE 0.9% 250 ML IVPB SCH ×2 (03:27→15:00)
[2018-11-30] MEDS: LANSOPRAZOLE 30 MG CAP GTB SCH ×2 (05:34→18:06)
[2018-11-30] MEDS: VALPROIC ACID LIQUID CUP 250 MG/5 ML CUP GTB SCH ×3 (05:34→22:08)
[2018-11-30] MEDS: NPH, HUMAN INSULIN ISOPHANE 3ML VIAL SC SCH ×3 (06:29→22:17)
[2018-11-30] MEDS: ACETYLCYSTEINE 20% 4 ML VIAL NEB SCH ×2 (08:02→19:46)
[2018-11-30] MEDS: ALBUTEROL/IPRATROPIUM (NEB) 3 ML AMP HHN PRN ×2 (08:02→19:45)
--- NOTE | 2018-11-30 09:50 | CONS ---
Consult Date/Type/Reason Admit Date/Time November 11, 2018 at 22:51 Initial Consult Date 11/15/18 Type of Consultation: Pulm Requesting Provider: NIA DOMINGO MD Date/Time of Note DATE: 11/30/18 TIME: 09:47 Subjective NO acute events - pt comfortable - BP in good range - no CP noted. ROS: No fever, no chills, no nausea, no vomiting, no diarrhea/constipation No recent weight changes No chest pain, no PND, no orthopnea - chronic SOB No dizziness, blurred vision No thirst, no heat or cold intolerance Objective Vitals Vital Signs Date Temp Pulse Resp B/P (MAP) Pulse Ox O2 O2 Flow FiO2 Time Delivery Rate 11/30/18 87 08:16 11/30/18 98.7 20 139/82 98 Trach 07:50 (101) Collar 11/30/18 5.0 28 07:35 Intake and Output 11/29/18 11/29/18 11/30/18 1515:00 23:00 07:00 IntakeIntake Total 840 ml 1490 ml OutputOutput Total 1100 ml 500 ml BalanceBalance -260 ml 990 ml Exam General: WN/WD/NAD, AOx 0 HEENT: Unicetric/atraumatic/EOMI (does not follow commands) NECK: soft Lymph: no lymphadenopathy HEART: regular with no S3, II/ systolic murmur at apex LUNGS: Coarse sounds ABD: soft, NT, ND, +BS - pEG : Intact Neuro: non focal SKIN: chronic changes EXT: trace edema Results/Medications Result Diagram: 11/29/18 0551 11/29/18 0551 Results 24 hrs Laboratory Tests Test 11/29/18 13:05 11/29/18 17:42 11/29/18 23:55 11/30/18 06:20 Bedside Glucose 101 112 149 133 Home Meds Reported Medications Acetylcysteine* (Mucomyst*) 4 Ml Soln, 3 ML NEB BID, EA 06/30/18 Na Phos,M-B/Na Phos,Di-Ba (Fleet Enema Extra) 230 Ml Enema, 230 ML RC NEEDED, ENEMA 06/30/18 Bisacodyl* (Bisacodyl*) 10 Mg Supp, 10 MG ME Q24H PRN for NEEDED, SUPP 06/30/18 Magnesium Hydroxide* (Milk Of Magnesia*) 400 Mg/5 Ml Oral.susp, 30 ML GTB Q24H for CONSTIPATION, ML 06/30/18 Sennosides* (Senna Lax*) 8.6 Mg Tablet, 2 TAB GTB BID, TAB 06/30/18 Insulin Aspart* (Novolog Insulin Pen*) 100 Unit/Ml Soln, 0 SC .SLIDING SCALE AC, EA IF BS 0-120=0 UNITS,120-150=0 UNIT, 151-200=1 UNIT, 201-250=2 UNIT, 251-300=3 UNIT, 301-350=4 UNIT, 351-400=5 UNIT, ABOVE 400=6 UNIT AND CALL MD. 06/30/18 Glucagon HCl (Glucagon HCl) 1 Mg Vial, 1 MG IJ NEEDED, VIAL IF BS BELOW 60 06/30/18 Insulin NPH Human Isophane (Humulin N) 100 Unit/1 Ml Vial, 28 UNIT SQ Q8H, VIAL 06/30/18 Hydrocodone/Acetaminophen (Ewing 5-325 Tablet) 1 Each Tablet, 1 EACH GTB Q6H, TAB NEEDED FOR PAIN 06/30/18 Acetaminophen* (Tylenol*) 500 Mg Tab, 1000 MG GTB Q4H PRN for PAIN 4-6/10, TAB 06/30/18 Acetaminophen* (Tylenol*) 325 Mg Tablet, 650 MG GTB PRN PRN for TRACH TUBE CHUN GE, TAB 06/30/18 Acetaminophen* (Tylenol*) 325 Mg Tablet, 650 MG GTB Q4H PRN for MILD PAIN LEVEL 1-3, TAB AND FEVER 100 AND ABOVE 06/30/18 Amino Acids/Protein Hydrolys (PRO-STAT LIQUID) 30 Ml Liquid.pkt, 30 ML GTB DAILY SUGAR FREE 06/30/18 Cran/Vitc/Mannose/Inulin/Brom (Uti-Stat Liquid) 3,875 Mg/30 Ml Liquid, 30 ML GTB DAILY 06/30/18 Hydralazine Hcl* (Hydralazine Hcl*) 25 Mg Tab, 25 MG GTB Q6H, #60 TAB 06/30/18 Furosemide* (Lasix* Liq) 40 Mg/5 Ml Cup, 20 MG GTB DAILY, EA 06/30/18 Carvedilol* (Carvedilol*) 3.125 Mg Tablet, 3.125 MG GTB BID, #60 TAB 06/30/18 Atorvastatin* (Atorvastatin*) 80 Mg Tablet, 80 MG GTB QHS, #30 TAB 06/30/18 Aspirin* (Aspirin* EC) 81 Mg Tablet.dr, 162 MG GTB DAILY, TAB 06/30/18 Valproic Acid* (Valproic Acid* Liq) 250 Mg/5 Ml Syrup, 10 ML GTB Q8H, ML 06/30/18 Sucralfate* (Carafate*) 1 Gm/10 Ml Susp, 1 GM GTB QID, EA 06/30/18 Lisinopril* (Lisinopril*) 5 Mg Tablet, 5 MG GTB DAILY, #30 TAB 06/30/18 Lansoprazole* (Lansoprazole*) 30 Mg Capsule.dr, 30 MG GTB BID, CAP 06/30/18 Lactobacillus Acidophilus (Acidophilus Lactobacillus) 1 Each Capsule, 1 EACH GTB BID, CAP 06/30/18 Medications Current Medications Ondansetron HCl (Zofran Inj) 4 mg Q6H PRN IV NAUSEA AND/OR VOMITING; Start 11/11/18 at 23:00 Acetaminophen (Tylenol Liquid) 650 mg Q6H PRN PO FEVER Last administered on 11/20/18at 03:38; Admin Dose 650 MG; Start 11/11/18 at 23:00 Morphine Sulfate (morphine) 2 mg Q4H PRN IV PAIN LEVEL 7-10 Last administered on 11/12/18at 05:26; Admin Dose 2 MG; Start 11/11/18 at 23:00 Miscellaneous Information 1 ea NOTE XX ; Start 11/12/18 at 03:00 Glucose (Glutose) 15 gm Q15M PRN PO DECREASED GLUCOSE; Start 11/12/18 at 03:00 Glucose (Glutose) 22.5 gm Q15M PRN PO DECREASED GLUCOSE; Start 11/12/18 at 03:00 Dextrose (D50w Syringe) 25 ml Q15M PRN IV DECREASED GLUCOSE; Start 11/12/18 at 03:00 Dextrose (D50w Syringe) 50 ml Q15M PRN IV DECREASED GLUCOSE; Start 11/12/18 at 03:00 Glucagon (Glucagen) 1 mg Q15M PRN IM DECREASED GLUCOSE; Start 11/12/18 at 03:00 Glucose (Glutose) 15 gm Q15M PRN BUCCAL DECREASED GLUCOSE; Start 11/12/18 at 03:00 Acetaminophen (Tylenol Tab) 650 mg Q4H PRN GTB MILD PAIN LEVEL 1-3 Last administered on 11/17/18 05:29; Admin Dose 650 MG; Start 11/12/18 at 09:30 Acetylcysteine (Mucomyst) 3 ml BID RESP THERAPY NEB Last administered on 11/30/18 08:02; Admin Dose 3 ML; Start 11/12/18 at 10:00 Atorvastatin Calcium (Lipitor) 80 mg QHS GTB Last administered on 11/29/18 21:10; Admin Dose 80 MG; Start 11/12/18 at 21:00 Bisacodyl (Dulcolax Supp) 10 mg Q24H PRN [place] CONSTIPATION; Start 11/12/18 at 09:30 Hydralazine HCl (Apresoline) 25 mg Q6 GTB Last administered on 11/29/18 17:43; Admin Dose 25 MG; Start 11/12/18 at 12:00 Lansoprazole (Prevacid) 30 mg BID@0600,1800 GTB Last administered on 11/30/18 05:34; Admin Dose 30 MG; Start 11/12/18 at 18:00 Senna (Senokot) 2 tab BID GTB Last administered on 11/29/18 21:10; Admin Dose 2 TAB; Start 11/12/18 at 09:30 Sucralfate (Carafate Susp) 1 gm QID GTB Last administered on 11/29/18 21:10; Admin Dose 1 GM; Start 11/12/18 at 13:00 Valproate Sodium (Depakene Liquid Cup) 500 mg Q8 GTB Last administered on 11/30/18 05:34; Admin Dose 500 MG; Start 11/12/18 at 10:00 Insulin Human NPH (Humulin N) 28 unit Q8 SC Last administered on 11/30/18 06:29; Admin Dose 28 UNIT; Start 11/12/18 at 10:00 Sodium Biphosphate/ Sodium Phosphate (Fleet Enema) 133 ml DAILY PRN [place] CONSTIPATION; Start 11/12/18 at 10:00 Lisinopril (Zestril) 10 mg DAILY GTB Last administered on 11/29/18 08:57; Ad min Dose 10 MG; Start 11/14/18 at 09:00 Albuterol/ Ipratropium (Duoneb) 3 ml Q6H RESP THERAPY PRN HHN SHORTNESS OF BREATH Last administered on 11/30/18at 08:02; Admin Dose 3 ML; Start 11/13/18 at 21:00 Vancomycin HCl (Vanco Iv Per Pharmacy) VANCOMYCIN PER PHARMA... PER PROTOCOL XX ; Start 11/17/18 at 13:00; Stop 12/01/18 at 12:59 Vancomycin HCl 1.25 gm/Sodium Chloride 250 ml @ 83.333 mls/ hr Q12H IVPB Last administered on 11/30/18at 03:27; Admin Dose 83.333 MLS/HR; Start 11/18/18 at 03:00; Stop 12/01/18 at 12:59 Carvedilol (Coreg) 12.5 mg BID GTB Last administered on 11/29/18at 21:10; Admin Dose 12.5 MG; Start 11/19/18 at 21:00 Insulin Aspart (Novolog Insulin Pen) NOVOLOG *MODERATE* ALGORI... Q6 SC Last administered on 11/30/18at 00:02; Admin Dose 2 UNIT; Start 11/27/18 at 12:00 Assessment/Plan Hospital Course (Demo Recall) 1. Abnormal electrocardiogram, assess for acute coronary syndrome.-neg trop x 3/EF 30-35% - r/o Mi - no active CP now. Santo follow - NO VT noted. NO ectopy on tele. No new SVT noted, except for short run of a. tach. Rate controlled - no intervention planned. 2. Cardiomyopathy with decreased left ventricular ejection fraction. EF 30-35% by echo this admit - con't to keep euvolemic as tolerated. Not an ICD candidate. Stable VS. On meds - stable. 3. Congestive heart failure, systolic, chronic - remove fluid as tolerated. Co n't to diurese gently. 4. Hypertension, under reasonable control in the setting of acute hemorrhage. 5. Intracranial hemorrhage - no signs of cognitive improvement now. Unchanged. 6. Chronic encephalopathy- unchanged. On vent. Con't resp Rx. 7. Prior craniectomy - old. 8. History of prior PTCA and stent placement. No further interventions planned. Meds on board. Treated. 9. Anemia. 10. Tachycardia-S tach today ? etiology, autonomic dysfunction - HR < 100 now. Now in sinus. HR better controlled. 11.fevers - on anti-Bx- resolved. KYLEIGH MENDENHALL MD Nov 30, 2018 09:50
[2018-11-30] MEDS: SUCRALFATE (100 MG/ML) 10ML CUP GTB SCH ×4 (10:48→20:57)
[2018-11-30] MEDS: SENNA TAB GTB SCH ×2 (10:49→20:58)
[2018-11-30] MEDS: LISINOPRIL 5 MG TAB GTB SCH (10:51)
--- NOTE | 2018-11-30 11:06 | CONS ---
Assessment/Plan Assessment/Plan Hospital Course (Demo Recall) - intermittent fever due to bacteremia and possible HCAP - resolved - bacteremia due to MRSA on 11/15/2018; repeat blood cx on 11/17/2018 were negative - on vanco - possible HCAP, however, given the polymicrobial growth of his resp culture, all bacteria may be colonizers of the airway: providencia, proteus, pseudomonas, group B strep, klebsiella; repeat trach asp cx 11/17/2018 grew pseudomonas and proteus; Pt completed pip/tazo (11/15/2018-11/17/2018) and cefepime (11/18/2018- 11/22/18) - h/o CVA. 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 fbhltbr-[id number]-dfimegtg lobes; stable large subacute R frontal temporal parietal intraparenchymal hemorrhage, plus encephalomalacia/gliosis; stable moderate to severe ventriculomegaly; moderate b/l occipital horn acute intraventricular hemorrhage; chronic R paracentral pontine infarction; small chronic R cerebellar infarctions; L temporal lobe with associated encephalomalacia/gliosis within this region as well as laminar necrosis; moderate chronic microvascular ischemic changes; basilar dolichoectasia; extensive bilateral mastoid air cell effusions - aerococci in urine culture on 11/14/2018, probable colonization - chronic hypoxic resp failure - h/o tracheostomy placement - unresponsive state due to extensive CVA - diarrhea - on senna - hyponatremia - dry scaly skin Recommendations - continue IV vancomycin (re-start 11/17/2018-12/01/2018) for bacteremia due to MRSA; plan for 14 days - continue chlorhexidine bed bath (11/26/2018-) daily followed by moisturizer - monitor skin for rash Management was d/w Dr. Kiran via [employer] messaging. Consultation Date/Type/Reason Admit Date/Time November 11, 2018 at 22:51 Initial Consult Date 11/15/18 Type of Consult ID Requesting Provider: NIA DOMINGO MD Date/Time of Note DATE: 11/30/18 TIME: 11:04 24 HR Interval Summary Free Text/Dictation Remains afebrile, no new labs today. Subjective hx not possible: pt non-verbal Exam/Review of Systems Exam Vitals Vital Signs Date Temp Pulse Resp B/P (MAP) Pulse Ox O2 O2 Flow FiO2 Time Delivery Rate 11/30/18 87 08:16 11/30/18 98.7 20 139/82 98 Trach 07:50 (101) Collar 11/30/18 5.0 28 07:35 Allergies Coded Allergies No Known Drug Allergies (Verified Allergy, Mild, 06/30/18) Intake and Output 11/29/18 11/29/18 11/30/18 1515:00 23:00 07:00 IntakeIntake Total 840 ml 1490 ml OutputOutput Total 1100 ml 500 ml BalanceBalance -260 ml 990 ml Exam Constitutional: well developed, non-verbal, obese, other (chronically debilitated) Psych: other (MORENA) Head: other (well healed craniectomy scar, site protrudes outward) Eyes: nl conjunctiva, nl lids ENMT: nl external ears & nose, nl nasal mucosa & septum, other (unable to examine OP) Neck: other (trach midline, site c/d/i, on T piece) Respiratory: normal air movement, diminished breath sounds, respirations (regular); No wheezing Cardiovascular: regular rate and rhythm, nl pulses Gastrointestinal: soft, non-tender, other (GT site is c/d/i); No distended, No tender Genitourinary - Male: nl penis, nl scrotum, other (f/c draining yellow urine) Musculoskeletal: nl extremities to inspection Extremities: normal pulses; No edema Neurological: unresponsive (withdraws to tactile stim) Skin: nl turgor, other (+tattoos); No rash or lesions Results Result Diagram: 11/29/18 0551 11/29/1851 Results 24hrs Laboratory Tests Test 11/29/18 13:05 11/29/18 17:42 11/29/18 23:55 11/30/18 06:20 Bedside Glucose 101 112 149 133 Medications Medication Current Medications Ondansetron HCl (Zofran Inj) 4 mg Q6H PRN IV NAUSEA AND/OR VOMITING; Start 11/11/18 at 23:00 Acetaminophen (Tylenol Liquid) 650 mg Q6H PRN PO FEVER Last administered on 11/20/18at 03:38; Admin Dose 650 MG; Start 11/11/18 at 23:00 Morphine Sulfate (morphine) 2 mg Q4H PRN IV PAIN LEVEL 7-10 Last administered on 11/12/18at 05:26; Admin Dose 2 MG; Start 11/11/18 at 23:00 Miscellaneous Information 1 ea NOTE XX ; Start 11/12/18 at 03:00 Glucose (Glutose) 15 gm Q15M PRN PO DECREASED GLUCOSE; Start 11/12/18 at 03:00 Glucose (Glutose) 22.5 gm Q15M PRN PO DECREASED GLUCOSE; Start 11/12/18 at 03:00 Dextrose (D50w Syringe) 25 ml Q15M PRN IV DECREASED GLUCOSE; Start 11/12/18 at 03:00 Dextrose (D50w Syringe) 50 ml Q15M PRN IV DECREASED GLUCOSE; Start 11/12/18 at 03:00 Glucagon (Glucagen) 1 mg Q15M PRN IM DECREASED GLUCOSE; Start 11/12/18 at 03:00 Glucose (Glutose) 15 gm Q15M PRN BUCCAL DECREASED GLUCOSE; Start 11/12/18 at 03:00 Acetaminophen (Tylenol Tab) 650 mg Q4H PRN GTB MILD PAIN LEVEL 1-3 Last admin istered on 11/17/18at 05:29; Admin Dose 650 MG; Start 11/12/18 at 09:30 Acetylcysteine (Mucomyst) 3 ml BID RESP THERAPY NEB Last administered on 11/30/18at 08:02; Admin Dose 3 ML; Start 11/12/18 at 10:00 Atorvastatin Calcium (Lipitor) 80 mg QHS GTB Last administered on 11/29/18at 21:10; Admin Dose 80 MG; Start 11/12/18 at 21:00 Bisacodyl (Dulcolax Supp) 10 mg Q24H PRN [place] CONSTIPATION; Start 11/12/18 at 09:30 Hydralazine HCl (Apresoline) 25 mg Q6 GTB Last administered on 11/29/18at 17:43; Admin Dose 25 MG; Start 11/12/18 at 12:00 Lansoprazole (Prevacid) 30 mg BID@0600,1800 GTB Last administered on 11/30/18at 05:34; Admin Dose 30 MG; Start 11/12/18 at 18:00 Senna (Senokot) 2 tab BID GTB Last administered on 11/30/18at 10:49; Admin Dose 2 TAB; Start 11/12/18 at 09:30 Sucralfate (Carafate Susp) 1 gm QID GTB Last administered on 11/30/18 10:48; Admin Dose 1 GM; Start 11/12/18 at 13:00 Valproate Sodium (Depakene Liquid Cup) 500 mg Q8 GTB Last administered on 11/30/18 05:34; Admin Dose 500 MG; Start 11/12/18 at 10:00 Insulin Human NPH (Humulin N) 28 unit Q8 SC Last administered on 11/30/18 06:29; Admin Dose 28 UNIT; Start 11/12/18 at 10:00 Sodium Biphosphate/ Sodium Phosphate (Fleet Enema) 133 ml DAILY PRN [place] CONSTIPATION; Start 11/12/18 at 10:00 Lisinopril (Zestril) 10 mg DAILY GTB Last administered on 11/30/18 10:51; Admin Dose 10 MG; Start 11/14/18 at 09:00 Albuterol/ Ipratropium (Duoneb) 3 ml Q6H RESP THERAPY PRN HHN SHORTNESS OF BREATH Last administered on 11/30/18 08:02; Admin Dose 3 ML; Start 11/13/18 at 21:00 Vancomycin HCl (Vanco Iv Per Pharmacy) VANCOMYCIN PER PHARMA... PER PROTOCOL XX ; Start 11/17/18 at 13:00; Stop 12/01/18 at 12:59 Vancomycin HCl 1.25 gm/Sodium Chloride 250 ml @ 83.333 mls/ hr Q12H IVPB Last administered on 11/30/18 03:27; Admin Dose 83.333 MLS/HR; Start 11/18/18 at 03:00; Stop 12/01/18 at 12:59 Carvedilol (Coreg) 12.5 mg BID GTB Last administered on 11/30/18 10:51; Admin Dose 12.5 MG; Start 11/19/18 at 21:00 Insulin Aspart (Novolog Insulin Pen) NOVOLOG *MODERATE* ALGORI... Q6 SC Last administered on 11/30/18 00:02; Admin Dose 2 UNIT; Start 11/27/18 at 12:00 LENNIE LAM NP Nov 30, 2018 11:06
--- NOTE | 2018-11-30 14:38 | PN ---
Date/Time of Note Date/Time of Note DATE: 11/30/18 TIME: 14:33 Assessment/Plan VTE Prophylaxis Risk score (from [facility])>0 risk: 8 SCD applied (from [facility]): Yes Pharmacological prophylaxis: NA/contraindicated Pharm contraindication: bleeding Lines/Catheters IV Catheter Type (from [facility]): Peripheral IV Central line still needed: Yes Urinary Cath still in place: Yes Reason Cath still needed: urinary retention Assessment/Plan Hospital Course Patient is hemodynamically stable, afebrile. Patient currently has treatment restraints due to trying to pull on tracheostomy according to nursing staff. Patient is completing vancomycin for MRSA bacteremia. DC planning to half-way facility. Assessment/Plan -Hyponatremia, resolved. Dr. Betts, nephrology consultation. -Diarrhea, resolved. -Intracranial hemorrhage, Dr. Espana is following in neurosurgery consultation. Family does not want any aggressive treatment. -Sepsis with fever and leukocytosis most likely secondary to HCAP, resolved. Completed treatment with antibiotics for pneumonia. Dr. Kiran is following in infection disease consultation. -MRSA bacteremia, continue Vanco until 12/01/18. -Recent history of right hemicraniectomy, details are not available. Records requested. -Chronic respiratory failure with tracheostomy, patient is currently on T-tube. -Healthcare associated pneumonia, continue antibiotics. -Coronary artery disease, status post PTCA with stent placement -Ischemic cardiomyopathy -Diabetes -Dysphagia with G-tube -Dyslipidemia -Obesity with BMI of 35.3 -DNR status Further recommendations depends on clinical course. Plan of care discussed with Dr. Cortez. Result Diagram: 11/29/18 0551 11/29/18 0551 Results 24hrs Laboratory Tests Test 11/29/18 17:42 11/29/18 23:55 11/30/18 06:20 11/30/18 12:55 Bedside Glucose 112 149 133 100 Exam/Review of Systems Exam Vitals Vital Signs Date Temp Pulse Resp B/P (MAP) Pulse Ox O2 O2 Flow FiO2 Time Delivery Rate 11/30/18 98 5.0 28 13:29 11/30/18 87 12:42 11/30/18 98.9 20 106/66 Trach 11:42 (79) Collar Intake and Output 11/29/18 11/29/18 11/30/18 1515:00 23:00 07:00 IntakeIntake Total 840 ml 1490 ml OutputOutput Total 1100 ml 500 ml BalanceBalance -260 ml 990 ml Exam Constitutional: non-verbal, frail Head: other (Status post right craniectomy) Neck: other (Trach) Respiratory: diminished breath sounds Cardiovascular: regular rate and rhythm Gastrointestinal: soft, non-tender, other (G-tube) Musculoskeletal: muscle weakness Extremities: normal pulses Neurological: other (Noncommunicative) Skin: nl turgor Results Results 24hrs Laboratory Tests Test 11/29/18 17:42 11/29/18 23:55 11/30/18 06:20 11/30/18 12:55 Bedside Glucose 112 149 133 100 Medications Medication Current Medications Ondansetron HCl (Zofran Inj) 4 mg Q6H PRN IV NAUSEA AND/OR VOMITING; Start 11/11/18 at 23:00 Acetaminophen (Tylenol Liquid) 650 mg Q6H PRN PO FEVER Last administered on 11/20/18at 03:38; Admin Dose 650 MG; Start 11/11/18 at 23:00 Morphine Sulfate (morphine) 2 mg Q4H PRN IV PAIN LEVEL 7-10 Last administered on 11/12/18at 05:26; Admin Dose 2 MG; Start 11/11/18 at 23:00 Miscellaneous Information 1 ea NOTE XX ; Start 11/12/18 at 03:00 Glucose (Glutose) 15 gm Q15M PRN PO DECREASED GLUCOSE; Start 11/12/18 at 03:00 Glucose (Glutose) 22.5 gm Q15M PRN PO DECREASED GLUCOSE; Start 11/12/18 at 03:00 Dextrose (D50w Syringe) 25 ml Q15M PRN IV DECREASED GLUCOSE; Start 11/12/18 at 03:00 Dextrose (D50w Syringe) 50 ml Q15M PRN IV DECREASED GLUCOSE; Start 11/12/18 at 03:00 Glucagon (Glucagen) 1 mg Q15M PRN IM DECREASED GLUCOSE; Start 11/12/18 at 03:00 Glucose (Glutose) 15 gm Q15M PRN BUCCAL DECREASED GLUCOSE; Start 11/12/18 at 03:00 Acetaminophen (Tylenol Tab) 650 mg Q4H PRN GTB MILD PAIN LEVEL 1-3 Last administered on 11/17/18at 05:29; Admin Dose 650 MG; Start 11/12/18 at 09:30 Acetylcysteine (Mucomyst) 3 ml BID RESP THERAPY NEB Last administered on 11/30/18 08:02; Admin Dose 3 ML; Start 11/12/18 at 10:00 Atorvastatin Calcium (Lipitor) 80 mg QHS GTB Last administered on 11/29/18 21:10; Admin Dose 80 MG; Start 11/12/18 at 21:00 Bisacodyl (Dulcolax Supp) 10 mg Q24H PRN [place] CONSTIPATION; Start 11/12/18 at 09:30 Hydralazine HCl (Apresoline) 25 mg Q6 GTB Last administered on 11/30/18 12:54; Admin Dose 25 MG; Start 11/12/18 at 12:00 Lansoprazole (Prevacid) 30 mg BID@0600,1800 GTB Last administered on 11/30/18 05:34; Admin Dose 30 MG; Start 11/12/18 at 18:00 Senna (Senokot) 2 tab BID GTB Last administered on 11/30/18 10:49; Admin Dose 2 TAB; Start 11/12/18 at 09:30 Sucralfate (Carafate Susp) 1 gm QID GTB Last administered on 11/30/18 12:53; Admin Dose 1 GM; Start 11/12/18 at 13:00 Valproate Sodium (Depakene Liquid Cup) 500 mg Q8 GTB Last administered on 11/30/18 05:34; Admin Dose 500 MG; Start 11/12/18 at 10:00 Insulin Human NPH (Humulin N) 28 unit Q8 SC Last administered on 11/30/18 06:29; Admin Dose 28 UNIT; Start 11/12/18 at 10:00 Sodium Biphosphate/ Sodium Phosphate (Fleet Enema) 133 ml DAILY PRN [place] CONSTIPATION; Start 11/12/18 at 10:00 Lisinopril (Zestril) 10 mg DAILY GTB Last administered on 11/30/18 10:51; Admin Dose 10 MG; Start 11/14/18 at 09:00 Albuterol/ Ipratropium (Duoneb) 3 ml Q6H RESP THERAPY PRN HHN SHORTNESS OF BREATH Last administered on 11/30/18 08:02; Admin Dose 3 ML; Start 11/13/18 at 21:00 Vancomycin HCl (Vanco Iv Per Pharmacy) VANCOMYCIN PER PHARMA... PER PROTOCOL XX ; Start 11/17/18 at 13:00; Stop 12/01/18 at 12:59 Vancomycin HCl 1.25 gm/Sodium Chloride 250 ml @ 83.333 mls/ hr Q12H IVPB Last administered on 11/30/18at 03:27; Admin Dose 83.333 MLS/HR; Start 11/18/18 at 03:00; Stop 12/01/18 at 12:59 Carvedilol (Coreg) 12.5 mg BID GTB Last administered on 11/30/18at 10:51; Admin Dose 12.5 MG; Start 11/19/18 at 21:00 Insulin Aspart (Novolog Insulin Pen) NOVOLOG *MODERATE* ALGORI... Q6 SC Last administered on 11/30/18at 00:02; Admin Dose 2 UNIT; Start 11/27/18 at 12:00 SETH AVENDANO Nov 30, 2018 14:38
--- NOTE | 2018-11-30 18:08 | CONS ---
Assessment/Plan Assessment/Plan Assessment/Plan (Daily) 1. 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 Sepsis due to possible HCAP and MRSA bacteremia 3. MRSA bacteremia 4. Possible HCAP 5. Intracranial hemorrhage - family decided for conservative management 6. h/o large CVA with subsequent vegetative state 7. Chronic respiratory failure s/p Tracheostomy 8 S/p G tube placement 9. Agitation Plan: IV abx vancomycin as per ID for MRSA bacteremia, Renally dose all abx and monitor electrolytes- finishing on 12/01 BP stable with corege 12.5 mg PO BID and , lisinopril 10mg po daily Na imrpvoed to 134, BUN/Cr 16/0.3, other electrolytes stable - no labs today to review yet possible plan for d/c if pt remained off restraints for 24 hr will follow up Consultation Date/Type/Reason Admit Date/Time November 11, 2018 at 22:51 Initial Consult Date 11/25/18 Type of Consult NEPHROLOGY Requesting Provider: NIA DOMINGO MD Date/Time of Note DATE: 11/30/18 TIME: 18:08 24 HR Interval Summary Free Text/Dictation Pt remains intermittently confused, on Restraints, which has been d/jaycob today Exam/Review of Systems Exam Vitals Vital Signs Date Temp Pulse Resp B/P (MAP) Pulse Ox O2 O2 Flow FiO2 Time Delivery Rate 11/30/18 88 16:40 11/30/18 99.2 20 119/74 100 16:00 (89) 11/30/18 5.0 28 13:29 11/30/18 Trach 11:42 Collar Intake and Output 11/29/18 11/29/18 11/30/18 1515:00 23:00 07:00 IntakeIntake Total 840 ml 1490 ml OutputOutput Total 1100 ml 500 ml BalanceBalance -260 ml 990 ml Results Result Diagram: 11/29/18 0551 11/29/18 0551 Results 24hrs Laboratory Tests Test 11/29/18 23:55 11/30/18 06:20 11/30/18 12:55 11/30/18 14:56 Bedside Glucose 149 133 100 90 Test 11/30/18 18:05 Bedside Glucose 91 Medications Medication Current Medications Ondansetron HCl (Zofran Inj) 4 mg Q6H PRN IV NAUSEA AND/OR VOMITING; Start 11/11/18 at 23:00 Acetaminophen (Tylenol Liquid) 650 mg Q6H PRN PO FEVER Last administered on 11/20/18at 03:38; Admin Dose 650 MG; Start 11/11/18 at 23:00 Morphine Sulfate (morphine) 2 mg Q4H PRN IV PAIN LEVEL 7-10 Last administered on 11/12/18at 05:26; Admin Dose 2 MG; Start 11/11/18 at 23:00 Miscellaneous Information 1 ea NOTE XX ; Start 11/12/18 at 03:00 Glucose (Glutose) 15 gm Q15M PRN PO DECREASED GLUCOSE; Start 11/12/18 at 03:00 Glucose (Glutose) 22.5 gm Q15M PRN PO DECREASED GLUCOSE; Start 11/12/18 at 03:00 Dextrose (D50w Syringe) 25 ml Q15M PRN IV DECREASED GLUCOSE; Start 11/12/18 at 03:00 Dextrose (D50w Syringe) 50 ml Q15M PRN IV DECREASED GLUCOSE; Start 11/12/18 at 03:00 Glucagon (Glucagen) 1 mg Q15M PRN IM DECREASED GLUCOSE; Start 11/12/18 at 03:00 Glucose (Glutose) 15 gm Q15M PRN BUCCAL DECREASED GLUCOSE; Start 11/12/18 at 03:00 Acetaminophen (Tylenol Tab) 650 mg Q4H PRN GTB MILD PAIN LEVEL 1-3 Last administered on 11/17/18at 05:29; Admin Dose 650 MG; Start 11/12/18 at 09:30 Acetylcysteine (Mucomyst) 3 ml BID RESP THERAPY NEB Last administered on 11/30/18at 08:02; Admin Dose 3 ML; Start 11/12/18 at 10:00 Atorvastatin Calcium (Lipitor) 80 mg QHS GTB Last administered on 11/29/18at 21:10; Admin Dose 80 MG; Start 11/12/18 at 21:00 Bisacodyl (Dulcolax Supp) 10 mg Q24H PRN [place] CONSTIPATION; Start 11/12/18 at 09:30 Hydralazine HCl (Apresoline) 25 mg Q6 GTB Last administered on 11/30/18at 12:54; Admin Dose 25 MG; Start 11/12/18 at 12:00 Lansoprazole (Prevacid) 30 mg BID@0600,1800 GTB Last administered on 11/30/18 05:34; Admin Dose 30 MG; Start 11/12/18 at 18:00 Senna (Senokot) 2 tab BID GTB Last administered on 11/30/18 10:49; Admin Dose 2 TAB; Start 11/12/18 at 09:30 Sucralfate (Carafate Susp) 1 gm QID GTB Last administered on 11/30/18 16:16; Admin Dose 1 GM; Start 11/12/18 at 13:00 Valproate Sodium (Depakene Liquid Cup) 500 mg Q8 GTB Last administered on 11/30/18 14:57; Admin Dose 500 MG; Start 11/12/18 at 10:00 Insulin Human NPH (Humulin N) 28 unit Q8 SC Last administered on 11/30/18 15:00; Admin Dose 28 UNIT; Start 11/12/18 at 10:00 Sodium Biphosphate/ Sodium Phosphate (Fleet Enema) 133 ml DAILY PRN [place] CONSTIPATION; Start 11/12/18 at 10:00 Lisinopril (Zestril) 10 mg DAILY GTB Last administered on 11/30/18 10:51; Admin Dose 10 MG; Start 11/14/18 at 09:00 Albuterol/ Ipratropium (Duoneb) 3 ml Q6H RESP THERAPY PRN HHN SHORTNESS OF BREATH Last administered on 11/30/18 08:02; Admin Dose 3 ML; Start 11/13/18 at 21:00 Vancomycin HCl (Vanco Iv Per Pharmacy) VANCOMYCIN PER PHARMA... PER PROTOCOL XX ; Start 11/17/18 at 13:00; Stop 12/01/18 at 12:59 Vancomycin HCl 1.25 gm/Sodium Chloride 250 ml @ 83.333 mls/ hr Q12H IVPB Last administered on 11/30/18 15:00; Admin Dose 83.333 MLS/HR; Start 11/18/18 at 03:00; Stop 12/01/18 at 12:59 Carvedilol (Coreg) 12.5 mg BID GTB Last administered on 11/30/18 10:51; Admin Dose 12.5 MG; Start 11/19/18 at 21:00 Insulin Aspart (Novolog Insulin Pen) NOVOLOG *MODERATE* ALGORI... Q6 SC Last administered on 11/30/18at 00:02; Admin Dose 2 UNIT; Start 11/27/18 at 12:00 BABATUNDE KENNEY MD Nov 30, 2018 18:08
[2018-11-30] MEDS: ATORVASTATIN 80 MG TAB GTB SCH (20:58)
[2018-12-01] VITALS (9 sets, daily range): BP systolic 104–126; BP diastolic 53–64; PULSE 81–90; RESP 17–20
[2018-12-01] MEDS: VANCOMYCIN HCL 1.25 GM in SOD CHLORIDE 0.9% 250 ML IVPB SCH (03:04)
[2018-12-01] MEDS: VALPROIC ACID LIQUID CUP 250 MG/5 ML CUP GTB SCH ×2 (05:39→11:51)
[2018-12-01] MEDS: LANSOPRAZOLE 30 MG CAP GTB SCH (05:39)
[2018-12-01] MEDS: INSULIN ASPART [NOVOLOG] 3 ML PEN SC SCH ×2 (05:40→12:00)
[2018-12-01] MEDS: NPH, HUMAN INSULIN ISOPHANE 3ML VIAL SC SCH ×2 (06:34→13:41)
[2018-12-01] MEDS: SENNA TAB GTB SCH (08:01)
[2018-12-01] MEDS: SUCRALFATE (100 MG/ML) 10ML CUP GTB SCH ×2 (08:03→11:52)
[2018-12-01] MEDS: LISINOPRIL 5 MG TAB GTB SCH (08:15)
[2018-12-01] MEDS: ACETYLCYSTEINE 20% 4 ML VIAL NEB SCH (08:17)
[2018-12-01] MEDS: ALBUTEROL/IPRATROPIUM (NEB) 3 ML AMP HHN PRN (08:18)
--- NOTE | 2018-12-01 10:02 | CONS ---
Assessment/Plan Assessment/Plan Assessment/Plan (Daily) 1. 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 Sepsis due to possible HCAP and MRSA bacteremia 3. MRSA bacteremia 4. Possible HCAP 5. Intracranial hemorrhage - family decided for conservative management 6. h/o large CVA with subsequent vegetative state 7. Chronic respiratory failure s/p Tracheostomy 8 S/p G tube placemen t Plan: IV abx vancomycin as per ID for MRSA bacteremia, Renally dose all abx and monitor electrolytes- finishing vancomycin today BP stable with corege 12.5 mg PO BID and , lisinopril 10mg po daily Na imrpvoed to 134, BUN/Cr 16/0.3, other electrolytes stable will follow up Consultation Date/Type/Reason Admit Date/Time November 11, 2018 at 22:51 Initial Consult Date 11/25/18 Type of Consult NEPHROLOGY Requesting Provider: NIA DOMINGO MD Date/Time of Note DATE: 12/01/18 TIME: 10:02 Exam/Review of Systems Exam Vitals Vital Signs Date Temp Pulse Resp B/P (MAP) Pulse Ox O2 O2 Flow FiO2 Time Delivery Rate 12/01/18 86 22 98 Aerosol 5.0 28 08:25 T Tube 12/01/18 98.8 123/63 07:53 (83) Intake and Output 11/30/18 11/30/18 12/01/18 1515:00 23:00 07:00 IntakeIntake Total 1240 ml 1040 ml OutputOutput Total 900 ml 450 ml BalanceBalance 340 ml 590 ml Results Result Diagram: 11/29/18 0551 11/29/18 0551 Results 24hrs Laboratory Tests Test 11/30/18 12:55 11/30/18 14:56 11/30/18 18:05 11/30/18 23:52 Bedside Glucose 100 90 91 118 Test 12/01/18 05:36 Bedside Glucose 102 Medications Medication Current Medications Ondansetron HCl (Zofran Inj) 4 mg Q6H PRN IV NAUSEA AND/OR VOMITING; Start 11/11/18 at 23:00 Acetaminophen (Tylenol Liquid) 650 mg Q6H PRN PO FEVER Last administered on 11/20/18at 03:38; Admin Dose 650 MG; Start 11/11/18 at 23:00 Morphine Sulfate (morphine) 2 mg Q4H PRN IV PAIN LEVEL 7-10 Last administered on 11/12/18at 05:26; Admin Dose 2 MG; Start 11/11/18 at 23:00 Miscellaneous Information 1 ea NOTE XX ; Start 11/12/18 at 03:00 Glucose (Glutose) 15 gm Q15M PRN PO DECREASED GLUCOSE; Start 11/12/18 at 03:00 Glucose (Glutose) 22.5 gm Q15M PRN PO DECREASED GLUCOSE; Start 11/12/18 at 03:00 Dextrose (D50w Syringe) 25 ml Q15M PRN IV DECREASED GLUCOSE; Start 11/12/18 at 03:00 Dextrose (D50w Syringe) 50 ml Q15M PRN IV DECREASED GLUCOSE; Start 11/12/18 at 03:00 Glucagon (Glucagen) 1 mg Q15M PRN IM DECREASED GLUCOSE; Start 11/12/18 at 03:00 Glucose (Glutose) 15 gm Q15M PRN BUCCAL DECREASED GLUCOSE; Start 11/12/18 at 03:00 Acetaminophen (Tylenol Tab) 650 mg Q4H PRN GTB MILD PAIN LEVEL 1-3 Last administered on 11/17/18at 05:29; Admin Dose 650 MG; Start 11/12/18 at 09:30 Acetylcysteine (Mucomyst) 3 ml BID RESP THERAPY NEB Last administered on 12/01/18at 08:17; Admin Dose 3 ML; Start 11/12/18 at 10:00 Atorvastatin Calcium (Lipitor) 80 mg QHS GTB Last administered on 11/30/18at 20:58; Admin Dose 80 MG; Start 11/12/18 at 21:00 Bisacodyl (Dulcolax Supp) 10 mg Q24H PRN [place] CONSTIPATION; Start 11/12/18 at 09:30 Hydralazine HCl (Apresoline) 25 mg Q6 GTB Last administered on 11/30/18at 18:08; Admin Dose 25 MG; Start 11/12/18 at 12:00 Lansoprazole (Prevacid) 30 mg BID@0600,1800 GTB Last administered on 12/01/18at 05:39; Admin Dose 30 MG; Start 11/12/18 at 18:00 Senna (Senokot) 2 tab BID GTB Last administered on 12/01/18at 08:01; Admin Dose 2 TAB; Start 11/12/18 at 09:30 Sucralfate (Carafate Susp) 1 gm QID GTB Last administered on 12/01/18 08:03; Admin Dose 1 GM; Start 11/12/18 at 13:00 Valproate Sodium (Depakene Liquid Cup) 500 mg Q8 GTB Last administered on 12/01/18 05:39; Admin Dose 500 MG; Start 11/12/18 at 10:00 Insulin Human NPH (Humulin N) 28 unit Q8 SC Last administered on 12/01/18 06:34; Admin Dose 28 UNIT; Start 11/12/18 at 10:00 Sodium Biphosphate/ Sodium Phosphate (Fleet Enema) 133 ml DAILY PRN [place] CONSTIPATION; Start 11/12/18 at 10:00 Lisinopril (Zestril) 10 mg DAILY GTB Last administered on 12/01/18 08:15; Admin Dose 10 MG; Start 11/14/18 at 09:00 Albuterol/ Ipratropium (Duoneb) 3 ml Q6H RESP THERAPY PRN HHN SHORTNESS OF BREATH Last administered on 12/01/18 08:18; Admin Dose 3 ML; Start 11/13/18 at 21:00 Vancomycin HCl (Vanco Iv Per Pharmacy) VANCOMYCIN PER PHARMA... PER PROTOCOL XX ; Start 11/17/18 at 13:00; Stop 12/01/18 at 12:59 Vancomycin HCl 1.25 gm/Sodium Chloride 250 ml @ 83.333 mls/ hr Q12H IVPB Last administered on 12/01/18 03:04; Admin Dose 83.333 MLS/HR; Start 11/18/18 at 03:00; Stop 12/01/18 at 12:59 Carvedilol (Coreg) 12.5 mg BID GTB Last administered on 12/01/18 08:02; Admin Dose 12.5 MG; Start 11/19/18 at 21:00 Insulin Aspart (Novolog Insulin Pen) NOVOLOG *MODERATE* ALGORI... Q6 SC Last administered on 11/30/18 00:02; Admin Dose 2 UNIT; Start 11/27/18 at 12:00 BABATUNDE KENNEY MD Dec 01, 2018 10:02
--- NOTE | 2018-12-01 13:22 | CONS ---
Assessment/Plan Assessment/Plan Hospital Course (Demo Recall) - intermittent fever due to bacteremia and possible HCAP - resolved - bacteremia due to MRSA on 11/15/2018; repeat blood cx on 11/17/2018 were negative - on vanco - possible HCAP, however, given the polymicrobial growth of his resp culture, all bacteria may be colonizers of the airway: providencia, proteus, pseudomonas, group B strep, klebsiella; repeat trach asp cx 11/17/2018 grew pseudomonas and proteus; Pt completed pip/tazo (11/15/2018-11/17/2018) and cefepime (11/18/2018- 11/22/18) - h/o CVA. 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 dtylppn-nakmlnky-yujrload lobes; stable large subacute R frontal temporal parietal intraparenchymal hemorrhage, plus encephalomalacia/gliosis; stable moderate to severe ventriculomegaly; moderate b/l occipital horn acute intraventricular hemorrhage; chronic R paracentral pontine infarction; small chronic R cerebellar infarctions; L temporal lobe with associated encephalomalacia/gliosis within this region as well as laminar necrosis; moderate chronic microvascular ischemic changes; basilar dolichoectasia; extensive bilateral mastoid air cell effusions - aerococci in urine culture on 11/14/2018, probable colonization - chronic hypoxic resp failure - h/o tracheostomy placement - unresponsive state due to extensive CVA - diarrhea - on senna - hyponatremia - dry scaly skin Recommendations - continue IV vancomycin (re-start 11/17/2018-12/01/2018) for bacteremia due to MRSA; plan for 14 days - continue chlorhexidine bed bath (11/26/2018-) daily followed by moisturizer - monitor skin for rash I directed care via via [employer] messaging yesterday. Consultation Date/Type/Reason Admit Date/Time November 11, 2018 at 22:51 Initial Consult Date 11/15/18 Type of Consult ID Requesting Provider: NIA DOMINGO MD Date/Time of Note DATE: 12/01/18 TIME: 13:22 Exam/Review of Systems Exam Vitals Vital Signs Date Temp Pulse Resp B/P (MAP) Pulse Ox O2 O2 Flow FiO2 Time Delivery Rate 12/01/18 98.8 81 17 104/53 98 11:20 (70) 12/01/18 Aerosol 5.0 28 08:25 T Tube Intake and Output 11/30/18 11/30/18 12/01/18 1515:00 23:00 07:00 IntakeIntake Total 1240 ml 1040 ml OutputOutput Total 900 ml 450 ml BalanceBalance 340 ml 590 ml Constitutional: alert, oriented, well developed Psych: no complaints, nl mood/affect Head: normocephalic, atraumatic Eyes: nl conjunctiva, EOMI, nl lids, nl sclera, PERRL ENMT: nl external ears & nose, nl lips & teeth, nl nasal mucosa & septum Neck: supple, non-tender Respiratory: diminished breath sounds Cardiovascular: regular rate and rhythm Gastrointestinal: soft Results Result Diagram: 11/29/18 0551 11/29/18 0551 Results 24hrs Laboratory Tests Test 11/30/18 14:56 11/30/18 18:05 11/30/18 23:52 12/01/18 05:36 Bedside Glucose 90 91 118 102 Test 12/01/18 12:19 12/01/18 12:54 Bedside Glucose 61 L 70 Medications Medication Current Medications Ondansetron HCl (Zofran Inj) 4 mg Q6H PRN IV NAUSEA AND/OR VOMITING; Start 11/11/18 at 23:00 Acetaminophen (Tylenol Liquid) 650 mg Q6H PRN PO FEVER Last administered on 11/20/18at 03:38; Admin Dose 650 MG; Start 11/11/18 at 23:00 Morphine Sulfate (morphine) 2 mg Q4H PRN IV PAIN LEVEL 7-10 Last administered on 11/12/18at 05:26; Admin Dose 2 MG; Start 11/11/18 at 23:00 Miscellaneous Information 1 ea NOTE XX ; Start 11/12/18 at 03:00 Glucose (Glutose) 15 gm Q15M PRN PO DECREASED GLUCOSE; Start 11/12/18 at 03:00 Glucose (Glutose) 22.5 gm Q15M PRN PO DECREASED GLUCOSE; Start 11/12/18 at 03:00 Dextrose (D50w Syringe) 25 ml Q15M PRN IV DECREASED GLUCOSE; Start 11/12/18 at 03:00 Dextrose (D50w Syringe) 50 ml Q15M PRN IV DECREASED GLUCOSE; Start 11/12/18 at 03:00 Glucagon (Glucagen) 1 mg Q15M PRN IM DECREASED GLUCOSE; Start 11/12/18 at 03:00 Glucose (Glutose) 15 gm Q15M PRN BUCCAL DECREASED GLUCOSE Last administered on 12/01/18 12:22; Admin Dose 15 GM; Start 11/12/18 at 03:00 Acetaminophen (Tylenol Tab) 650 mg Q4H PRN GTB MILD PAIN LEVEL 1-3 Last administered on 11/17/18 05:29; Admin Dose 650 MG; Start 11/12/18 at 09:30 Acetylcysteine (Mucomyst) 3 ml BID RESP THERAPY NEB Last administered on 12/01/18 08:17; Admin Dose 3 ML; Start 11/12/18 at 10:00 Atorvastatin Calcium (Lipitor) 80 mg QHS GTB Last administered on 11/30/18 20:58; Admin Dose 80 MG; Start 11/12/18 at 21:00 Bisacodyl (Dulcolax Supp) 10 mg Q24H PRN RI CONSTIPATION; Start 11/12/18 at 09:30 Hydralazine HCl (Apresoline) 25 mg Q6 GTB Last administered on 12/01/18 11:51; Admin Dose 25 MG; Start 11/12/18 at 12:00 Lansoprazole (Prevacid) 30 mg BID@0600,1800 GTB Last administered on 12/01/18 05:39; Admin Dose 30 MG; Start 11/12/18 at 18:00 Senna (Senokot) 2 tab BID GTB Last administered on 12/01/18 08:01; Admin Dose 2 TAB; Start 11/12/18 at 09:30 Sucralfate (Carafate Susp) 1 gm QID GTB Last administered on 12/01/18 11:52; Admin Dose 1 GM; Start 11/12/18 at 13:00 Valproate Sodium (Depakene Liquid Cup) 500 mg Q8 GTB Last administered on 12/01/18 11:51; Admin Dose 500 MG; Start 11/12/18 at 10:00 Insulin Human NPH (Humulin N) 28 unit Q8 SC Last administered on 12/01/18 06:34; Admin Dose 28 UNIT; Start 11/12/18 at 10:00 Sodium Biphosphate/ Sodium Phosphate (Fleet Enema) 133 ml DAILY PRN RI CONSTIPATION; Start 11/12/18 at 10:00 Lisinopril (Zestril) 10 mg DAILY GTB Last administered on 12/01/18at 08:15; Admin Dose 10 MG; Start 11/14/18 at 09:00 Albuterol/ Ipratropium (Duoneb) 3 ml Q6H RESP THERAPY PRN HHN SHORTNESS OF BREATH Last administered on 12/01/18 08:18; Admin Dose 3 ML; Start 11/13/18 at 21:00 Carvedilol (Coreg) 12.5 mg BID GTB Last administered on 12/01/18 08:02; Admin Dose 12.5 MG; Start 11/19/18 at 21:00 Insulin Aspart (Novolog Insulin Pen) NOVOLOG *MODERATE* ALGORI... Q6 SC Last administered on 11/30/18 00:02; Admin Dose 2 UNIT; Start 11/27/18 at 12:00 MOLINA BONILLA MD Dec 01, 2018 13:22
--- NOTE | 2018-12-01 13:29 | CONS ---
Assessment/Plan Assessment/Plan Hospital Course (Demo Recall) IMPRESSION: 1. Abnormal electrocardiogram, assess for acute coronary syndrome.-neg trop x 3/EF 30-35% 2. Cardiomyopathy with decreased left ventricular ejection fraction. EF 30-35% by echo this admit 3. Congestive heart failure, systolic, chronic. 4. Hypertension-well controlled 5. Intracranial hemorrhage. 6. Chronic encephalopathy. 7. Prior craniectomy. 8. History of prior PTCA and stent placement. 9. Anemia. 10. Tachycardia-S tach today ? etiology, autonomic dysfunction 11.fevers-defervesced 12. SVT-overnight at 160-170 regular, ? AVNRT. no recurrence mutiple days Recc: -Tele -continue hydralazine/ACEI/coreg -Continue daily lasix and follow volume status closely -Continue statinl -s/p course of abx's -Now DNR Consultation Date/Type/Reason Admit Date/Time November 11, 2018 at 22:51 Initial Consult Date 11/12/18 Type of Consult Cardiology Reason for Consultation abnl ecg Requesting Provider: NIA DOMINGO MD Date/Time of Note DATE: 12/01/18 TIME: 13:27 Exam/Review of Systems Vital Signs Vitals Vital Signs Date Temp Pulse Resp B/P (MAP) Pulse Ox O2 O2 Flow FiO2 Time Delivery Rate 12/01/18 98.8 81 17 104/53 98 11:20 (70) 12/01/18 Aerosol 5.0 28 08:25 T Tube Intake and Output 11/30/18 11/30/18 12/01/18 1515:00 23:00 07:00 IntakeIntake Total 1240 ml 1040 ml OutputOutput Total 900 ml 450 ml BalanceBalance 340 ml 590 ml Exam Exam Review of Systems: CONSTITUTIONAL: No fevers, chills. PULMONARY: No sob CARDIOVASCULAR: No chest pain/palpitations GASTROINTESTINAL: No nausea/vomiting. GENITOURINARY: No hematuria/dysuria. MUSCULOSKELETAL: No myagias/arthalgias. PSYCHIATRIC: The patient denies depression. NEUROLOGIC: encephalopathic Constitutional: other (encephalopathic) Head: normocephalic ENMT: mucosa pink and moist Neck: supple, jvd (9 cm water) Respiratory: diminished breath sounds (at bases/B) Cardiovascular: regular rate and rhythm Gastrointestinal: soft, non-tender Musculoskeletal: muscle weakness (mild generalized) Extremities: edema (none) Labs Result Diagram: 11/29/18 0551 11/29/18 0551 Results 24hrs Laboratory Tests Test 11/30/18 14:56 11/30/18 18:05 11/30/18 23:52 12/01/18 05:36 Bedside Glucose 90 91 118 102 Test 12/01/18 12:19 12/01/18 12:54 Bedside Glucose 61 L 70 Medications Medications Current Medications Ondansetron HCl (Zofran Inj) 4 mg Q6H PRN IV NAUSEA AND/OR VOMITING; Start 11/11/18 at 23:00 Acetaminophen (Tylenol Liquid) 650 mg Q6H PRN PO FEVER Last administered on 11/20/18at 03:38; Admin Dose 650 MG; Start 11/11/18 at 23:00 Morphine Sulfate (morphine) 2 mg Q4H PRN IV PAIN LEVEL 7-10 Last administered on 11/12/18at 05:26; Admin Dose 2 MG; Start 11/11/18 at 23:00 Miscellaneous Information 1 ea NOTE XX ; Start 11/12/18 at 03:00 Glucose (Glutose) 15 gm Q15M PRN PO DECREASED GLUCOSE; Start 11/12/18 at 03:00 Glucose (Glutose) 22.5 gm Q15M PRN PO DECREASED GLUCOSE; Start 11/12/18 at 03:00 Dextrose (D50w Syringe) 25 ml Q15M PRN IV DECREASED GLUCOSE; Start 11/12/18 at 03:00 Dextrose (D50w Syringe) 50 ml Q15M PRN IV DECREASED GLUCOSE; Start 11/12/18 at 03:00 Glucagon (Glucagen) 1 mg Q15M PRN IM DECREASED GLUCOSE; Start 11/12/18 at 03:00 Glucose (Glutose) 15 gm Q15M PRN BUCCAL DECREASED GLUCOSE Last administered on 12/01/18at 12:22; Admin Dose 15 GM; Start 11/12/18 at 03:00 Acetaminophen (Tylenol Tab) 650 mg Q4H PRN GTB MILD PAIN LEVEL 1-3 Last administered on 11/17/18at 05:29; Admin Dose 650 MG; Start 11/12/18 at 09:30 Acetylcysteine (Mucomyst) 3 ml BID RESP THERAPY NEB Last administered on 12/01/18at 08:17; Admin Dose 3 ML; Start 11/12/18 at 10:00 Atorvastatin Calcium (Lipitor) 80 mg QHS GTB Last administered on 11/30/18 20:58; Admin Dose 80 MG; Start 11/12/18 at 21:00 Bisacodyl (Dulcolax Supp) 10 mg Q24H PRN [place] CONSTIPATION; Start 11/12/18 at 09:30 Hydralazine HCl (Apresoline) 25 mg Q6 GTB Last administered on 12/01/18 11:51; Admin Dose 25 MG; Start 11/12/18 at 12:00 Lansoprazole (Prevacid) 30 mg BID@0600,1800 GTB Last administered on 12/01/18 05:39; Admin Dose 30 MG; Start 11/12/18 at 18:00 Senna (Senokot) 2 tab BID GTB Last administered on 12/01/18 08:01; Admin Dose 2 TAB; Start 11/12/18 at 09:30 Sucralfate (Carafate Susp) 1 gm QID GTB Last administered on 12/01/18 11:52; Admin Dose 1 GM; Start 11/12/18 at 13:00 Valproate Sodium (Depakene Liquid Cup) 500 mg Q8 GTB Last administered on 12/01/18 11:51; Admin Dose 500 MG; Start 11/12/18 at 10:00 Insulin Human NPH (Humulin N) 28 unit Q8 SC Last administered on 12/01/18 06:34; Admin Dose 28 UNIT; Start 11/12/18 at 10:00 Sodium Biphosphate/ Sodium Phosphate (Fleet Enema) 133 ml DAILY PRN MS CONST IPATION; Start 11/12/18 at 10:00 Lisinopril (Zestril) 10 mg DAILY GTB Last administered on 12/01/18 08:15; Admin Dose 10 MG; Start 11/14/18 at 09:00 Albuterol/ Ipratropium (Duoneb) 3 ml Q6H RESP THERAPY PRN HHN SHORTNESS OF BREATH Last administered on 12/01/18 08:18; Admin Dose 3 ML; Start 11/13/18 at 21:00 Carvedilol (Coreg) 12.5 mg BID GTB Last administered on 6/12/19at 08:02; Admin Dose 12.5 MG; Start 11/19/18 at 21:00 Insulin Aspart (Novolog Insulin Pen) NOVOLOG *MODERATE* ALGORI... Q6 SC Last administered on 11/30/18at 00:02; Admin Dose 2 UNIT; Start 11/27/18 at 12:00 MAE ROSALES Dec 01, 2018 13:29
--- NOTE | 2018-12-01 20:25 | DS ---
Date/Time of Note Date/Time of Note DATE: 12/01/18 TIME: 20:23 Discharge Summary Admission/Discharge Info Admit Date/Time November 11, 2018 at 22:51 Discharge Date/Time Dec 01, 2018 at 17:15 Patient Condition: Stable Hx of Present Illness History obtained from medical record as the patient is nonverbal. The patient is a 52-year-old gentleman well known to me from previous hospital admission. The patient has coronary artery disease status post percutaneous coronary intervention, cardiomyopathy with last ejection fraction reported in general in 06/2018 to be 40%. The patient in 2018 suffered a massive cerebrovascular acc ident and was taken to [facility] and underwent a craniectomy. The patient could not be weaned off ventilator and underwent tracheostomy and G-tube placement. The patient was initially admitted in [place] then was sent to [facility]. The patient since his initial stroke has remained nonverbal, although he does have e pisodes of agitation. The patient continues to have a dense hemiplegia on the left side. He spontaneously moves his right upper and lower extremities. He opens eyes intermittently, although has remained nonverbal. He does not even track at baseline. Yesterday at Subacute Unit the patient was thought to be in pain, when his right craniectomy site was palpated. The patient was immediately sent to [facility] Emergency Room, where he underwent stat CT scan of the head, which revealed acute large intraparenchymal hemorrhage within the right frontotemporal parietal lobe. There is also moderate acute bilateral occipital horn intraventricular hemorrhage, right-sided hemispheric craniectomy with extracranial herniation, moderate ventriculomegaly. The patient also was noted to have glasses and encephalomalacia. Dr. Mena was called. He recommended to transfer the patient to [facility] due to previous surgical intervention; however, [facility] did not have an ICU bed and the patient was subsequently admitted at [facility] ICU. The patient was seen by Dr. Mena this morning and has ordered a repeat CT scan. The patient did not have any seizure activity since admission. No reported vomiting, no reported fever or chills. The patient did have a low grade temperature of 99.5 earlier today, except for that reading patient has remained afebrile. No reported leg edema. No reported abdominal distention. The patient did not have any vomiting. Hospital Course -Hyponatremia, resolved. Dr. Betts, nephrology consultation. -Diarrhea, resolved. -Intracranial hemorrhage, Dr. Espana is following in neurosurgery consultation. Family does not want any aggressive treatment. -Sepsis with fever and leukocytosis most likely secondary to HCAP, resolved. Completed treatment with antibiotics for pneumonia. Dr. Kiran is following in infection disease consultation. -MRSA bacteremia, continue Vanco until 12/01/18. -Recent history of right hemicraniectomy, details are not available. Records requested. -Chronic respiratory failure with tracheostomy, patient is currently on T-tube. -Healthcare associated pneumonia, continue antibiotics. -Coronary artery disease, status post PTCA with stent placement -Ischemic cardiomyopathy -Diabetes -Dysphagia with G-tube -Dyslipidemia -Obesity with BMI of 35.3 -DNR status Plan of care discussed with Dr. Cortez. Home Meds Reported Medications Acetylcysteine* (Mucomyst*) 4 Ml Soln, 3 ML NEB BID, EA 06/30/18 Na Phos,M-B/Na Phos,Di-Ba (Fleet Enema Extra) 230 Ml Enema, 230 ML RC NEEDED, ENEMA 06/30/18 Bisacodyl* (Bisacodyl*) 10 Mg Supp, [address] Q24H PRN for NEEDED, SUPP 06/30/18 Magnesium Hydroxide* (Milk Of Magnesia*) 400 Mg/5 Ml Oral.susp, 30 ML GTB Q24H for CONSTIPATION, ML 06/30/18 Sennosides* (Senna Lax*) 8.6 Mg Tablet, 2 TAB GTB BID, TAB 06/30/18 Insulin Aspart* (Novolog Insulin Pen*) 100 Unit/Ml Soln, 0 SC .SLIDING SCALE AC, EA IF BS 0-120=0 UNITS,120-150=0 UNIT, 151-200=1 UNIT, 201-250=2 UNIT, 251-300=3 UNIT, 301-350=4 UNIT, 351-400=5 UNIT, ABOVE 400=6 UNIT AND CALL MD. 06/30/18 Glucagon HCl (Glucagon HCl) 1 Mg Vial, 1 MG IJ NEEDED, VIAL IF BS BELOW 60 06/30/18 Insulin NPH Human Isophane (Humulin N) 100 Unit/1 Ml Vial, 28 UNIT SQ Q8H, VIAL 06/30/18 Hydrocodone/Acetaminophen ([place] 5-325 Tablet) 1 Each Tablet, 1 EACH GTB Q6H, TAB NEEDED FOR PAIN 06/30/18 Acetaminophen* (Tylenol*) 500 Mg Tab, 1000 MG GTB Q4H PRN for PAIN 4-6/10, TAB 06/30/18 Acetaminophen* (Tylenol*) 325 Mg Tablet, 650 MG GTB PRN PRN for TRACH TUBE CHANGE, TAB 06/30/18 Acetaminophen* (Tylenol*) 325 Mg Tablet, 650 MG GTB Q4H PRN for MILD PAIN LEVEL 1-3, TAB AND FEVER 100 AND ABOVE 06/30/18 Amino Acids/Protein Hydrolys (PRO-STAT LIQUID) 30 Ml Liquid.pkt, 30 ML GTB DAILY SUGAR FREE 06/30/18 Cran/Vitc/Mannose/Inulin/Brom (Uti-Stat Liquid) 3,875 Mg/30 Ml Liquid, 30 ML GTB DAILY 06/30/18 Hydralazine Hcl* (Hydralazine Hcl*) 25 Mg Tab, 25 MG GTB Q6H, #60 TAB 06/30/18 Furosemide* (Lasix* Liq) 40 Mg/5 Ml Cup, 20 MG GTB DAILY, EA 06/30/18 Carvedilol* (Carvedilol*) 3.125 Mg Tablet, 3.125 MG GTB BID, #60 TAB 06/30/18 Atorvastatin* (Atorvastatin*) 80 Mg Tablet, 80 MG GTB QHS, #30 TAB 06/30/18 Aspirin* (Aspirin* EC) 81 Mg Tablet.dr, 162 MG GTB DAILY, TAB 06/30/18 Valproic Acid* (Valproic Acid* Liq) 250 Mg/5 Ml Syrup, 10 ML GTB Q8H, ML 06/30/18 Sucralfate* (Carafate*) 1 Gm/10 Ml Susp, 1 GM GTB QID, EA 06/30/18 Lisinopril* (Lisinopril*) 5 Mg Tablet, 5 MG GTB DAILY, #30 TAB 06/30/18 Lansoprazole* (Lansoprazole*) 30 Mg Capsule.dr, 30 MG GTB BID, CAP 06/30/18 Lactobacillus Acidophilus (Acidophilus Lactobacillus) 1 Each Capsule, 1 EACH GTB BID, CAP 06/30/18 Primary Care Provider Chaparro Cortez MD Time spent on discharge: > 30 minutes Pending Labs Laboratory Tests Test 11/30/18 23:52 12/01/18 05:36 12/01/18 12:19 12/01/18 12:54 Bedside 118 102 61 70 Glucose mg/dL (70-220) mg/dL (70-220) mg/dL (70-220) mg/dL (70-220) Test 12/01/18 13:34 Bedside 75 Glucose mg/dL (70-220) SETH AVENDANO Dec 01, 2018 20:25
== END 2018-12-01 17:15 | DRG 871 ==
LOC: E/R 21:01 → ICU 22:51 → 2NE 11-12 18:46 → ICU 11-13 11:50 → TEL 11-19 08:33
PROVIDERS: ADMIT Internal Medicine; ATTEND Internal Medicine
PROC: 3E0F7GC Introduction of Other Therapeutic Substance into Respiratory Tract, Via Natural or Artificial Opening (ICD-10-PCS; principal; 2018-11-11)
DX: A41.9 Sepsis, unspecified organism (principal); I61.9 Nontraumatic intracerebral hemorrhage, unspecified; J18.9 Pneumonia, unspecified organism; I50.22 Chronic systolic (congestive) heart failure; G93.40 Encephalopathy, unspecified; E87.1 Hypo-osmolality and hyponatremia; I62.9 Nontraumatic intracranial hemorrhage, unspecified; J96.10 Chronic respiratory failure, unspecified whether with hypoxia or hypercapnia; E11.8 Type 2 diabetes mellitus with unspecified complications; I11.0 Hypertensive heart disease with heart failure; R13.10 Dysphagia, unspecified; I69.10 Unspecified sequelae of nontraumatic intracerebral hemorrhage; I25.5 Ischemic cardiomyopathy; E78.5 Hyperlipidemia, unspecified; D64.9 Anemia, unspecified; M19.90 Unspecified osteoarthritis, unspecified site; R00.0 Tachycardia, unspecified; G40.909 Epilepsy, unspecified, not intractable, without status epilepticus; E66.9 Obesity, unspecified; Z68.35 Body mass index [BMI] 35.0-35.9, adult; Z66 Do not resuscitate; I25.10 Atherosclerotic heart disease of native coronary artery without angina pectoris; R45.1 Restlessness and agitation; R19.7 Diarrhea, unspecified; R50.9 Fever, unspecified; Z79.82 Long term (current) use of aspirin; Z93.0 Tracheostomy status; Z79.4 Long term (current) use of insulin; Z93.1 Gastrostomy status
CPT/HCPCS: 36415; 36600; 70450; 70553; 71045; 80048; 80053; 80061; 80164; 80202; 81001; 82550; 82553; 82803; 82962; 83036; 83605; 83735; 84100; 84145; 84443; 84484; 85025; 85610; 85730; 87070; 87075; 87081; 87086; 93005; 93306; 94640; 94664; 96374; 96375; J0692; J1815; J2270; J2405; J2543; J3370; J7030; J7040; J7050

== ENCOUNTER 2018-12-24 23:37 | Inpatient (IN) | payer MEDICARE ==
[~2018-12-24] VITALS: Ht 175.3 cm; Wt 90.0 kg
[2018-12-24 23:41] VITALS: Ht 175.3 cm; Wt 90.0 kg
[2018-12-24] MEDS ORDERED: CEFEPIME 2GM/50 ML (PMX) 50 ML IVPB STA (23:44)
[2018-12-25] MEDS ORDERED: VANCOMYCIN 1 GM (PMX) 250 ML IVPB ONE
[2018-12-25] MEDS ORDERED: SOD CHLORIDE 0.9% 2,700 ML IV ONE
--- NOTE | 2018-12-25 00:08 | ERD ---
ER Documentation Chief Complaint Chief Complaint bib pa apa 270 for fever from [facility] as per dr. cortez HPI This is a 53-year-old male with a past medical history of hypertension, hyperlipidemia, cardiac disease, massive CVA and 2018 status post craniectomy with significant encephalomalacia, hydrocephalus status post recent CROP SUPERVISOR 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 The patient was transferred to our facility from [facility] per Dr. Cortez's instructions. History and physical is limited secondary to altered mentation. ROS Unable to obtain secondary to clinical condition Medications Home Meds Reported Medications Acetylcysteine* (Mucomyst*) 4 Ml Soln, 3 ML NEB BID, EA 06/30/18 Na Phos,M-B/Na Phos,Di-Ba (Fleet Enema Extra) 230 Ml Enema, 230 ML RC NEEDED, ENEMA 06/30/18 Bisacodyl* (Bisacodyl*) 10 Mg Supp, 10 MG ND Q24H PRN for NEEDED, SUPP 06/30/18 Magnesium Hydroxide* (Milk Of Magnesia*) 400 Mg/5 Ml Oral.susp, 30 ML GTB Q24H for CONSTIPATION, ML 06/30/18 Sennosides* (Senna Lax*) 8.6 Mg Tablet, 2 TAB GTB BID, TAB 06/30/18 Insulin Aspart* (Novolog Insulin Pen*) 100 Unit/Ml Soln, 0 SC .SLIDING SCALE AC, EA IF BS 0-120=0 UNITS,120-150=0 UNIT, 151-200=1 UNIT, 201-250=2 UNIT, 251-300=3 UNIT, 301-350=4 UNIT, 351-400=5 UNIT, ABOVE 400=6 UNIT AND CALL MD. 06/30/18 Glucagon HCl (Glucagon HCl) 1 Mg Vial, 1 MG IJ NEEDED, VIAL IF BS BELOW 60 06/30/18 Insulin NPH Human Isophane (Humulin N) 100 Unit/1 Ml Vial, 28 UNIT SQ Q8H, VIAL 06/30/18 Hydrocodone/Acetaminophen ([place] 5-325 Tablet) 1 Each Tablet, 1 EACH GTB Q6H, TAB NEEDED FOR PAIN 06/30/18 Acetaminophen* (Tylenol*) 500 Mg Tab, 1000 MG GTB Q4H PRN for PAIN 4-6/10, TAB 06/30/18 Acetaminophen* (Tylenol*) 325 Mg Tablet, 650 MG GTB PRN PRN for TRACH TUBE CHANGE, TAB 06/30/18 Acetaminophen* (Tylenol*) 325 Mg Tablet, 650 MG GTB Q4H PRN for MILD PAIN LEVEL 1-3, TAB AND FEVER 100 AND ABOVE 06/30/18 Amino Acids/Protein Hydrolys (PRO-STAT LIQUID) 30 Ml Liquid.pkt, 30 ML GTB DAILY SUGAR FREE 06/30/18 Cran/Vitc/Mannose/Inulin/Brom (Uti-Stat Liquid) 3,875 Mg/30 Ml Liquid, 30 ML GTB DAILY 06/30/18 Hydralazine Hcl* (Hydralazine Hcl*) 25 Mg Tab, 25 MG GTB Q6H, #60 TAB 06/30/18 Furosemide* (Lasix* Liq) 40 Mg/5 Ml Cup, 20 MG GTB DAILY, EA 06/30/18 Carvedilol* (Carvedilol*) 3.125 Mg Tablet, 3.125 MG GTB BID, #60 TAB 06/30/18 Atorvastatin* (Atorvastatin*) 80 Mg Tablet, 80 MG GTB QHS, #30 TAB 06/30/18 Aspirin* (Aspirin* EC) 81 Mg Tablet.dr, 162 MG GTB DAILY, TAB 06/30/18 Valproic Acid* (Valproic Acid* Liq) 250 Mg/5 Ml Syrup, 10 ML GTB Q8H, ML 06/30/18 Sucralfate* (Carafate*) 1 Gm/10 Ml Susp, 1 GM GTB QID, EA 06/30/18 Lisinopril* (Lisinopril*) 5 Mg Tablet, 5 MG GTB DAILY, #30 TAB 06/30/18 Lansoprazole* (Lansoprazole*) 30 Mg Capsule.dr, 30 MG GTB BID, CAP 06/30/18 Lactobacillus Acidophilus (Acidophilus Lactobacillus) 1 Each Capsule, 1 EACH GTB BID, CAP 06/30/18 Allergies Allergies: Coded Allergies: No Known Drug Allergies (Verified Allergy, Mild, 06/30/18) PMhx/Soc History of Surgery: Yes (craniotomy) Anesthesia Reaction: No (UNK) Hx Neurological Disorder: Yes (Massive CVA, known intracranial hemorrhage, neurologically devastated, seizures) Hx Respiratory Disorders: Yes (Chronic respiratory failure status post tracheostomy) Hx Cardiac Disorders: Yes (Hypertension, hyperlipidemia, cardiac disease) Hx Psychiatric Problems: No Hx Miscellaneous Medical Probl: Yes (Dysphagia status post G-tube) FmHx Unable to obtain Physical Exam Vitals Vital Signs Date Temp Pulse Resp B/P (MAP) Pulse Ox O2 O2 Flow FiO2 Time Delivery Rate 12/25/18 67 22 97 Aerosol 10.0 40 02:42 12/25/18 92 24 156/91 100 Trach 01:55 (112) Collar 12/25/18 98.2 96 24 115/73 100 Trach 00:49 (87) Collar 12/25/18 97 21 116/66 98 Trach 10.0 00:20 (83) Collar 12/25/18 10 00:18 12/25/18 96 10.0 40 00:07 12/25/18 98 20 96 Aerosol 10.0 40 00:07 Mask 12/24/18 100.7 102 29 96/54 (68) 100 23:41 Physical Exam Const: Unresponsive at baseline, no acute distress Head: Obvious right craniectomy Eyes: Right pupil unresponsive, left pupil slightly dilated but responsive, patient does not track ENT: Normal External Ears, Nose and Mouth. Neck: Tracheostomy in place with clear secretions Resp: Coarse breath sounds bilaterally Cardio: Regular rhythm, tachycardia, no murmurs Abd: G-tube present. Soft, non tender, non distended. Normal bowel sounds Skin: No petechiae or rashes Ext: No cyanosis, or edema Neur: Awake. Eyes are open spontaneously. Otherwise nonverbal and unresponsive at baseline. No obvious spontaneous movements. Result Diagram: 12/25/18 0001 12/25/18 0001 Results 24 hrs Laboratory Tests Test 12/24/18 00:22 12/25/18 00:01 12/25/18 00:03 12/25/18 01:50 Urine Color SONJA Urine Clarity CLOUDY Urine pH 9.0 Urine Specific 1.018 [place] Urine Ketones 1+ mg/dL Urine Nitrite POSITIVE mg/dL Urine Bilirubin NEGATIVE mg/dL Urine Urobilinogen NEGATIVE mg/dL Urine Leukocyte 2+ Yari/ul Esterase Urine Microscopic 1 /HPF RBC Urine Microscopic 48 /HPF WBC Urine Amorphous FEW /HPF Crystals Urine Bacteria FEW /HPF Urine Mucus FEW /HPF Urine Hemoglobin NEGATIVE mg/dL Urine Glucose NEGATIVE mg/dL Urine Total Protein 2+ mg/dl White Blood Count 17.2 10^3/ul Red Blood Count 4.16 10^6/ul Hemoglobin 11.3 g/dl Hematocrit 35.8 % Mean Corpuscular 86.1 fl Volume Mean Corpuscular 27.2 pg Hemoglobin Mean Corpuscular 31.6 g/dl Hemoglobin Concent Red Cell 15.1 % Distribution Width Platelet Count 438 10^3/UL Mean Platelet 10.3 fl Volume Immature 0.500 % Granulocytes % Neutrophils % 88.9 % Lymphocytes % 5.8 % Monocytes % 4.1 % Eosinophils % 0.5 % Basophils % 0.2 % Nucleated Red Blood 0.0 /100WBC Cells % Immature 0.080 10^3/ul Granulocytes # Neutrophils # 15.3 10^3/ul Lymphocytes # 1.0 10^3/ul Monocytes # 0.7 10^3/ul Eosinophils # 0.1 10^3/ul Basophils # 0.0 10^3/ul Nucleated Red Blood 0.0 10^3/ul Cells # Prothrombin Time 13.2 Sec Prothrombin Time 1.0 Ratio INR International 0.99 Normalized Ratio Activated 33.5 Sec Partial Thromboplas t Time Sodium Level 137 mmol/L Potassium Level 4.7 mmol/L Chloride Level 96 mmol/L Carbon Dioxide 34 mmol/L Level Anion Gap 7 Blood Urea Nitrogen 20 mg/dl Creatinine 0.59 mg/dl Est Glomerular > 60 mL/min Filtrat Rate mL/min Glucose Level 209 mg/dl Calcium Level 9.4 mg/dl Total Bilirubin 0.4 mg/dl Direct Bilirubin 0.00 mg/dl Indirect Bilirubin 0.4 mg/dl Aspartate Amino 19 IU/L Transf (AST/SGOT) Alanine 8 IU/L Aminotransferase (A LT/SGPT) Alkaline 110 IU/L Phosphatase Troponin I 0.015 ng/ml Total Protein 7.9 g/dl Albumin 3.5 g/dl Globulin 4.40 g/dl Albumin/Globulin 0.79 Ratio POC Venous Lactate 1.7 mmol/L Lactic Acid Level 1.4 mmol/L Current Medications Medications Dose Sig/[place] Start Time Status Last (Trade) Ordered Route PRN Stop Time Admin Dose Reason Admin Cefepime HCl 50 ml @ ONCE STAT 12/24/18 DC 12/25/18 100 mls/hr IVPB 23:44 12/25/18 00:08 00:13 Vancomycin 250 ml @ ONCE ONCE 12/25/18 DC 12/25/18 HCl 125 mls/hr IVPB 00:00 12/25/18 00:48 01:59 Sodium 2,700 ml @ BOLUS X1 12/25/18 DC 12/25/18 Chloride 1,350 mls/hr ONCE IV 00:00 12/25/18 00:08 01:59 Ondansetron 4 mg ER BRIDGE 12/25/18 HCl (Zofran PRN IV 00:30 12/26/18 Inj) NAUSEA/VOMITI 00:29 NG 650 mg ER BRIDGE 12/25/18 Acetaminophen PRN PO 00:30 12/26/18 (Tylenol .MILD PAIN 00:29 Tab) 1-3 OR TEMP Procedures/MDM MDM The patient's presentation warrants further investigation. Previous medical records, if available, were reviewed. LABS The patient's laboratory testing was obtained and reviewed. No emergent treatment was required unless described below. CBC: Leukocytosis, concerning for an infection. Thrombocytosis, likely reactive. Normocytic anemia, not emergent. Chemistry: No E/o severe acidosis or alkalosis or renal failure or liver disease or diabetic ketoacidosis PT/INR: No E/o significant coagulopathy Lactate: No E/o severe sepsis Troponin: No E/o acute ischemia Urine: E/o acute infection without hematuria EKG EKG read by me: Rate/Rhythm: Regular rate and rhythm at a rate of 97 bpm Intervals: Normal ND interval and QTc. Wide QRS in the setting of a right b undle branch block. [place]: Normal Impression: Q waves in the inferior leads indicating old inferior ischemia. Nonspecific repolarization changes without evidence of acute ischemia. IMAGING Imaging and Radiology interpretation reviewed. CXR 1V Interpreted by me Soft Tissue: Tracheostomy in place. No acute abnormalities Bones: No acute abnormalities Mediastinum/Cardiac Silhouette: Significant cardiomegaly limiting evaluation of the left lower lung field. No widened mediastinum. Lungs: No acute abnormalities. Normal pulmonary vasculature. No pneumothorax. No pulmonary edema. No right pleural effusion or opacity or consolidations concerning for pneumonia. Left lower lung vigil cannot be fully assessed due to cardiomegaly. CT head Official read is pending. Preliminary read performed by me. Significant encephalomalacia Status post craniectomy Decompressed ventricles with CROP SUPERVISOR shunt in place No obvious intracranial hemorrhage. TREATMENT/DISPOSITION The patient presents for fever and chills from his nursing facility. The patient is chronically ill with previous episodes of systemic infections and sepsis. I am concerned about sepsis today and he meets criteria for systemic i nflammatory response syndrome. A full septic work-up was completed. SEPSIS NOTE SIRS Criteria: Tachycardia, fever, leukocytosis Infectious source: Concern for pneumonia versus a neurologic pathology versus UTI End organ damage indicated by: None SEPSIS MANAGEMENT Time to recognize sepsis: Upon arrival. Time to recognize severe sepsis: No severe sepsis at this time. Time to recognize septic shock: No septic shock at this time. 3 HOUR BUNDLE Blood cultures x 2 before abx: Yes 30 ml/kg NS bolus completed Initial lactate 1.7 Repeat lactate Not warranted as the previous lactic acid was within normal limits. SEPTIC SHOCK ASSESSMENT: NO lactic acid > 4.0 NO persistent hypotension (SBP < 90 or 40 mmHg drop, MAP < 65) despite 30 L/kg IV fluid bolus CRITICAL CARE Critical care time 35 minutes Emergent fluid management while maintaining close respiratory support. Provisi on of immediate and broad-spectrum antibiotic therapy. Simultaneous assessment for possible sources in order to direct targeted therapy. Consideration for invasive and chemical support to prevent cardiopulmonary collapse. Critical care time is independent of procedures performed. ADMISSION The patient will be admitted to Dr. Cortez in accordance with the patient's insurance. The patient was accepted to telemetry at 12:15AM on 12/25/2018. Dr. Cortez stated that he will consult neurosurgery in the hospital. Disclaimer: Inadvertent spelling and grammatical errors are likely due to EHR/ dictation software use and do not reflect on the overall quality of patient care. Note that the electronic time recorded on this note does not necessarily reflect the actual time of the patient encounter. Departure Diagnosis: Primary Impression: Sepsis Sepsis type: sepsis due to unspecified organism Qualified Codes: A41.9 - Sepsis, unspecified organism Additional Impressions: Fever Fever type: unspecified Qualified Codes: R50.9 - Fever, unspecified Tachycardia Cough Leukocytosis Leukocytosis type: unspecified Qualified Codes: D72.829 - Elevated white blood cell count, unspecified Normocytic anemia UTI (urinary tract infection) Urinary tract infection type: acute cystitis Hematuria presence: without hematuria Qualified Codes: N30.00 - Acute cystitis without hematuria Chest congestion Thrombocytosis Condition: Serious RODRICK DUPREE MD Dec 25, 2018 00:08
[2018-12-25] MEDS ORDERED: ACETAMINOPHEN 325 MG TAB PO PRN (00:30)
[2018-12-25] MEDS ORDERED: ONDANSETRON 4 MG INJ IV PRN (00:30)
[2018-12-25] MEDS ORDERED: INSU100C SQ (11:15)
[2018-12-25] MEDS ORDERED: MULT-105 GTB (11:22)
[2018-12-25] MEDS ORDERED: ASC500 GTB (11:23)
[2018-12-25] MEDS ORDERED: ZINC220T GTB (11:24)
[2018-12-25] MEDS ORDERED: DOCU-144 GTB (11:24)
[2018-12-25] MEDS ORDERED: LISI10TA2 GTB (11:32)
--- NOTE | 2018-12-25 12:19 | HP ---
Date/Time of Note Date/Time of Note DATE: 12/25/18 TIME: 12:08 Assessment/Plan VTE Prophylaxis SCD contraindicated: other Pharmacological prophylaxis: other Lines/Catheters [facility] Peripheral IV Assessment/Plan Assessment/Plan -Sepsis secondary to bacteremia and urinary tract infection. - admit to unit - Dr. Kiran is consulted in infection disease consultation. - see admission orders -Chronic respiratory failure with tracheostomy, patient is currently on T-tube. - Pulmonary consult notified - Tachycardia - possible 2/2 fever - cardio consult notified -Coronary artery disease, status post PTCA with stent placement - Normocytic anemia - Thrombocytosis -Ischemic cardiomyopathy -Diabetes -Dysphagia with G-tube -Dyslipidemia -History of right hemicraniectomy. -History of intracranial hemorrhage during last admission - SP evaluation by Dr. Espana in neurosurgery with family decision against any aggressive surgical treatment. -Hx of Obesity -DNR status Further recommendations depends on clinical course. Plan of care discussed with Dr. Cortez. Result Diagram: 12/25/18 0001 12/25/18 0001 Results 24hrs Laboratory Tests Test 12/25/18 00:01 12/25/18 00:03 12/25/18 01:50 12/25/18 05:46 White Blood Count 17.2 #H Red Blood Count 4.16 L Hemoglobin 11.3 L Hematocrit 35.8 L Mean Corpuscular Volume 86.1 Mean Corpuscular 27.2 L Hemoglobin Mean Corpuscular 31.6 L Hemoglobin Concent Red Cell Distribution 15.1 H Width Platelet Count 438 #H Mean Platelet Volume 10.3 Immature Granulocytes % 0.500 H Neutrophils % 88.9 H Lymphocytes % 5.8 L Monocytes % 4.1 Eosinophils % 0.5 Basophils % 0.2 Nucleated Red Blood 0.0 Cells % Immature Granulocytes # 0.080 H Neutrophils # 15.3 H Lymphocytes # 1.0 Monocytes # 0.7 Eosinophils # 0.1 Basophils # 0.0 Nucleated Red Blood 0.0 Cells # Prothrombin Time 13.2 Prothrombin Time Ratio 1.0 INR International 0.99 Normalized Ratio Activated 33.5 Partial Thromboplast Time Sodium Level 137 Potassium Level 4.7 Chloride Level 96 L Carbon Dioxide Level 34 H Anion Gap 7 Blood Urea Nitrogen 20 Creatinine 0.59 L Est Glomerular Filtrat > 60 Rate mL/min Glucose Level 209 Calcium Level 9.4 Total Bilirubin 0.4 Direct Bilirubin 0.00 Indirect Bilirubin 0.4 Aspartate Amino 19 Transf (AST/SGOT) Alanine 8 L Aminotransferase (ALT/SG PT) Alkaline Phosphatase 110 Troponin I 0.015 Total Protein 7.9 Albumin 3.5 Globulin 4.40 H Albumin/Globulin Ratio 0.79 POC Venous Lactate 1.7 Lactic Acid Level 1.4 1.2 HPI/ROS Admit Date/Time Admit Date/Time Hx of Present Illness HPI This is a 53-year-old male with a past medical history of hypertension, hyperlipidemia, cardiac disease, massive CVA and 2018 status post craniectomy with significant encephalomalacia, 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 The patient was transferred to our facility from [facility] per Dr. Cortez's instructions. History and physical is limited secondary to altered mentation. ROS Unable to obtain secondary to clinical condition Medications Home Meds Reported Medications Acetylcysteine* (Mucomyst*) 4 Ml Soln, 3 ML NEB BID, EA 06/30/18 Na Phos,M-B/Na Phos,Di-Ba (Fleet Enema Extra) 230 Ml Enema, 230 ML RC NEEDED, ENEMA 06/30/18 Bisacodyl* (Bisacodyl*) 10 Mg Supp, 10 MG VT Q24H PRN for NEEDED, SUPP 06/30/18 Magnesium Hydroxide* (Milk Of Magnesia*) 400 Mg/5 Ml Oral.susp, 30 ML GTB Q24H for CONSTIPATION, ML 06/30/18 Sennosides* (Senna Lax*) 8.6 Mg Tablet, 2 TAB GTB BID, TAB 06/30/18 Insulin Aspart* (Novolog Insulin Pen*) 100 Unit/Ml Soln, 0 SC .SLIDING SCALE AC, EA IF BS 0-120=0 UNITS,120-150=0 UNIT, 151-200=1 UNIT, 201-250=2 UNIT, 251-300=3 UNIT, 301-350=4 UNIT, 351-400=5 UNIT, ABOVE 400=6 UNIT AND CALL 06/30/18 Glucagon HCl (Glucagon HCl) 1 Mg Vial, 1 MG IJ NEEDED, VIAL IF BS BELOW 60 06/30/18 Insulin NPH Human Isophane (Humulin N) 100 Unit/1 Ml Vial, 28 UNIT SQ Q8H, VIAL 06/30/18 Hydrocodone/Acetaminophen ([place] 5-325 Tablet) 1 Each Tablet, 1 EACH GTB Q6H, TAB NEEDED FOR PAIN 06/30/18 Acetaminophen* (Tylenol*) 500 Mg Tab, 1000 MG GTB Q4H PRN for PAIN 4-6/10, TAB 06/30/18 Acetaminophen* (Tylenol*) 325 Mg Tablet, 650 MG GTB PRN PRN for TRACH TUBE CHANGE, TAB 06/30/18 Acetaminophen* (Tylenol*) 325 Mg Tablet, 650 MG GTB Q4H PRN for MILD PAIN LEVEL 1-3, TAB AND FEVER 100 AND ABOVE 06/30/18 Amino Acids/Protein Hydrolys (PRO-STAT LIQUID) 30 Ml Liquid.pkt, 30 ML GTB DAILY SUGAR FREE 06/30/18 Cran/Vitc/Mannose/Inulin/Brom (Uti-Stat Liquid) 3,875 Mg/30 Ml Liquid, 30 ML GTB DAILY 06/30/18 Hydralazine Hcl* (Hydralazine Hcl*) 25 Mg Tab, 25 MG GTB Q6H, #60 TAB 06/30/18 Furosemide* (Lasix* Liq) 40 Mg/5 Ml Cup, 20 MG GTB DAILY, EA 06/30/18 Carvedilol* (Carvedilol*) 3.125 Mg Tablet, 3.125 MG GTB BID, #60 TAB 06/30/18 Atorvastatin* (Atorvastatin*) 80 Mg Tablet, 80 MG GTB QHS, #30 TAB 06/30/18 Aspirin* (Aspirin* EC) 81 Mg Tablet.dr, 162 MG GTB DAILY, TAB 06/30/18 Valproic Acid* (Valproic Acid* Liq) 250 Mg/5 Ml Syrup, 10 ML GTB Q8H, ML 06/30/18 Sucralfate* (Carafate*) 1 Gm/10 Ml Susp, 1 GM GTB QID, EA 06/30/18 Lisinopril* (Lisinopril*) 5 Mg Tablet, 5 MG GTB DAILY, #30 TAB 06/30/18 Lansoprazole* (Lansoprazole*) 30 Mg Capsule.dr, 30 MG GTB BID, CAP 06/30/18 Lactobacillus Acidophilus (Acidophilus Lactobacillus) 1 Each Capsule, 1 EACH GTB BID, CAP 06/30/18 Allergies Allergies: Coded Allergies: No Known Drug Allergies (Verified Allergy, Mild, 06/30/18) PMhx/Soc History of Surgery: Yes (craniotomy) Anesthesia Reaction: No (UNK) Hx Neurological Disorder: Yes (Massive CVA, known intracranial hemorrhage, neurologically devastated, seizures) Hx Respiratory Disorders: Yes (Chronic respiratory failure status post tracheostomy) Hx Cardiac Disorders: Yes (Hypertension, hyperlipidemia, cardiac disease) Hx Psychiatric Problems: No Hx Miscellaneous Medical Probl: Yes (Dysphagia status post G-tube) FmHx Unable to obtain ROS Subjective hx not possible: pt non-verbal PMH/Family/Social Past Medical History Medications Current Medications Ondansetron HCl (Zofran Inj) 4 mg ER BRIDGE PRN IV NAUSEA/VOMITING; Start 12/25/18 at 00:30; Stop 12/26/18 at 00:29 Acetaminophen (Tylenol Tab) 650 mg ER BRIDGE PRN PO .MILD PAIN 1-3 OR TEMP; Start 12/25/18 at 00:30; Stop 12/26/18 at 00:29 Coded Allergies: No Known Drug Allergies (Verified Allergy, Mild, 12/25/18) Past Surgical History Past Surgical Hx: other Family History Significant Family History: other Social History Smoking Status: Unknown if ever smoked Exam/Review of Systems Vital Signs Vitals Vital Signs Date Temp Pulse Resp B/P (MAP) Pulse Ox O2 O2 Flow FiO2 Time Delivery Rate 12/25/18 98.2 85 22 129/73 99 Trach 8.0 10:49 (91) Collar 12/25/18 40 05:05 Exam Constitutional: well developed, non-verbal Psych: nl mood/affect Head: other (sp right craniotomy) Eyes: nl lids, nl sclera ENMT: nl external ears & nose Neck: other (trach inatct) Cardiovascular: nl pulses, other (s1s2) Gastrointestinal: soft, other (gt intact) Musculoskeletal: muscle weakness Extremities: normal pulses Neurological: lethargic, unresponsive Skin: other REGINA BUI Dec 25, 2018 12:19
[2018-12-25] MEDS ORDERED: BISACODYL 10 MG SUPP PR PRN (12:30)
[2018-12-25] MEDS ORDERED: ACETAMINOPHEN 325 MG TAB GTB PRN (12:30)
[2018-12-25] MEDS: MAGNESIUM HYDROXIDE 30ML CUP GTB SCH (12:39)
[2018-12-25] MEDS: VALPROIC ACID LIQUID CUP 250 MG/5 ML CUP GTB SCH ×2 (12:40→23:38)
[2018-12-25] MEDS: LISINOPRIL 10 MG TAB GTB SCH (12:40)
[2018-12-25] MEDS: SUCRALFATE (100 MG/ML) 10ML CUP GTB SCH ×3 (12:40→23:38)
[2018-12-25] MEDS ORDERED: HYDROCODONE/APAP (5/325) TAB GTB PRN (13:00)
[2018-12-25 19:50] VITALS: BP 119/63; PULSE 78; RESP 20
--- NOTE | 2018-12-25 23:07 | CONS ---
Assessment/Plan Assessment/Plan Hospital Course (Demo Recall) assessment/impression - sepsis due to UTI - UTI due to Gram negative bacteria - h/o - bacteremia due to MRSA in 10/2018 - h/o possible HCAP vs. 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; and hydrocephalus requiring VPS placement at [facility] - chronic hypoxic resp failure - h/o tracheostomy placement - dysphagia - h/o G tube placement recommendations - await further microbiological data: urine and blood cultures - change the Nelson catheter - requested that RT collect his tracheal aspirate for culture - continue IV cefepime (12/25/2018-) for UTI - continue empiric IV vanc (12/25/2018-) in case of recurrent MRSA bacteremia management d/w Pt's son, and BRADLEY Turner Consultation Date/Type/Reason Admit Date/Time 12/25/2018 Date of Consultation: Dec 25, 2018 Type of Consult ID Reason for Consultation sepsis due to UTI Requesting Provider: REGINA MARQUEZ Date/Time of Note DATE: 12/25/18 TIME: 22:46 Hx of Present Illness This is a 53 yo male with h/o extensive CVA; he is obtunded at baseline, and is dependent on trach and G tube feeding. Pt was last here in 10/2018 for bacteremia due to MRSA for which he took a course of IV vancomycin. His interval history is significant for craniectomy with significant encephalomalacia; and hydrocephalus requiring VPS placement at [facility]. He was transferred from the SNF to ER on 12/25/2018 due to fever and resp distress. Pt was in sepsis (tachycardia and leukocytosis) on arrival. His urinalysis showed pyuria and his CXR showed L sided infiltrate. Pt was given a dose of cefepime and vancomycin, and was admitted. Tonight his urine culture is growing Gram negative bacteria. GREG Marquez requested ID consultation on this Pt. Subjective hx not possible: pt non-verbal, pt critical, pt critical status Past Medical History Medical History: coronary artery disease, high cholesterol, hypertension, other (CVA, resp failure) Home Meds Reported Medications Lisinopril* (Lisinopril*) 10 Mg Tablet, 10 MG GTB DAILY, #30 TAB HOLD FOR SBP<110 OR HR<60 12/25/18 Docusate Sodium* (Colace*) 100 Mg Capsule, 100 MG GTB QHS, #30 CAP 12/25/18 Zinc Sulfate* (Zinc Sulfate*) 220 Mg Tablet, 220 MG GTB DAILY, TAB 12/25/18 Ascorbic Acid (Vitamin C) 500 Mg Tab, 500 MG GTB DAILY, TAB 12/25/18 Multivitamin with Minerals (Multivitamins with Minerals) 1 Each Tablet, 1 EACH GTB DAILY, TAB 12/25/18 Insulin Lispro (Humalog) 100 Unit/1 Ml Cartridge, 0 SQ SLIDING SCALE, EA IF BS 71-150=0, 151-200=1 UNIT,201-250=2 UNITS,251-300=3 UNITS,301-350=4 UNITS,351-400=5 UNITS,>400=6 UNITS AND CALL MDMelony 12/25/18 Na Phos,M-B/Na Phos,Di-Ba (Fleet Enema Extra) Unknown Strength Enema, 1 APPLIC RC Q2D, ENEMA 06/30/18 Bisacodyl* (Bisacodyl*) 10 Mg Supp, 10 MG [place] DAILY PRN for NEEDED, SUPP 06/30/18 Magnesium Hydroxide* (Milk Of Magnesia*) 400 Mg/5 Ml Oral.susp, 30 ML GTB Q24H for CONSTIPATION, ML 06/30/18 Sennosides* (Senna Lax*) 8.6 Mg Tablet, 2 TAB GTB BID, TAB 06/30/18 Insulin NPH Human Isophane (Humulin N) 100 Unit/1 Ml Vial, 28 UNIT SQ Q8H, VIAL 06/30/18 Hydrocodone/Acetaminophen ([place] 5-325 Tablet) 1 Each Tablet, 1 EACH GTB Q6H, TAB NEEDED FOR PAIN LEVEL 7-03/0106/30/18 Acetaminophen* (Tylenol*) 500 Mg Tab, 1000 MG GTB Q4H PRN for PAIN 4-11/29, TAB 06/30/18 Acetaminophen* (Tylenol*) 325 Mg Tablet, 650 MG GTB PRN PRN for TRACH TUBE CHUN GE, TAB AND PAIN MANAGEMENT 06/30/18 Acetaminophen* (Tylenol*) 325 Mg Tablet, 650 MG GTB Q4H PRN for MILD PAIN LEVEL 1-3, TAB AND FEVER 100 AND ABOVE 06/30/18 Amino Acids/Protein Hydrolys (PRO-STAT LIQUID) 30 Ml Liquid.pkt, 30 ML GTB DAILY SUGAR FREE 06/30/18 Carvedilol* (Carvedilol*) 3.125 Mg Tablet, 3.125 MG GTB BID, #60 TAB HOLD IF SBP<110 OR HR<60 06/30/18 Valproic Acid* (Valproic Acid* Liq) 250 Mg/5 Ml Syrup, 15 ML GTB Q8H, ML 06/30/18 Sucralfate* (Carafate*) 1 Gm/10 Ml Susp, 1 GM GTB QID, EA 06/30/18 Lansoprazole* (Lansoprazole*) 30 Mg Capsule.dr, 30 MG GTB BID, CAP 06/30/18 Lactobacillus Acidophilus (Acidophilus Lactobacillus) 1 Each Capsule, 1 EACH GTB DAILY, CAP 06/30/18 Discontinued Reported Medications Acetylcysteine* (Mucomyst*) 4 Ml Soln, 3 ML NEB BID, EA 06/30/18 Insulin Aspart* (Novolog Insulin Pen*) 100 Unit/Ml Soln, 0 SC .SLIDING SCALE PATRICIA, ALEXANDREA IF BS 0-120=0 UNITS,120-150=0 UNIT, 151-200=1 UNIT, 201-250=2 UNIT, 251-300=3 UNIT, 301-350=4 UNIT, 351-400=5 UNIT, ABOVE 400=6 UNIT AND CALL MD. 06/30/18 Glucagon HCl (Glucagon HCl) 1 Mg Vial, 1 MG IJ NEEDED, VIAL IF BS BELOW 60 06/30/18 Cran/Vitc/Mannose/Inulin/Brom (Uti-Stat Liquid) 3,875 Mg/30 Ml Liquid, 30 ML GTB DAILY 06/30/18 Hydralazine Hcl* (Hydralazine Hcl*) 25 Mg Tab, 25 MG GTB Q6H, #60 TAB 06/30/18 Furosemide* (Lasix* Liq) 40 Mg/5 Ml Cup, 20 MG GTB DAILY, EA 06/30/18 Atorvastatin* (Atorvastatin*) 80 Mg Tablet, 80 MG GTB QHS, #30 TAB 06/30/18 Aspirin* (Aspirin* EC) 81 Mg Tablet.dr, 162 MG GTB DAILY, TAB 06/30/18 Lisinopril* (Lisinopril*) 5 Mg Tablet, 5 MG GTB DAILY, #30 TAB 06/30/18 Medications Current Medications Ondansetron HCl (Zofran Inj) 4 mg ER BRIDGE PRN IV NAUSEA/VOMITING; Start 12/25/18 at 00:30; Stop 12/26/18 at 00:29 Acetaminophen (Tylenol Tab) 650 mg PRN PRN GTB TRACH TUBE CHANGE; Start 12/25/18 at 12:30 Acetaminophen (Tylenol Tab) 650 mg Q4H PRN GTB MILD PAIN LEVEL 1-3; Start 12/25/18 at 12:30 Ascorbic Acid (Vitamin C) 500 mg DAILY GTB ; Start 12/26/18 at 09:00 Bisacodyl (Dulcolax Supp) 10 mg DAILY PRN [place] NEEDED; Start 12/25/18 at 12:30 Carvedilol (Coreg) 3.125 mg BID GTB ; Start 12/25/18 at 21:00 Docusate Sodium (Colace) 100 mg QHS PO ; Start 12/25/18 at 21:00 Acetaminophen/ Hydrocodone Bitart ([place] (5/325)) 1 tab Q6H PRN GTB MODERATE PAIN LEVEL 4-6; Start 12/25/18 at 13:00 Lansoprazole (Prevacid) 30 mg BID GTB ; Start 12/25/18 at 21:00 Lisinopril (Zestril) 10 mg DAILY GTB Last administered on 12/25/18at 12:40; Admin Dose 10 MG; Start 12/25/18 at 12:30 Magnesium Hydroxide (Milk Of Mag) 30 ml Q24H GTB Last administered on 12/25/18at 12:39; Admin Dose 30 ML; Start 12/25/18 at 12:30 Senna (Senokot) 2 tab BID GTB ; Start 12/25/18 at 21:00 Sucralfate (Carafate Susp) 1 gm QID GTB Last administered on 12/25/18at 12:40; Admin Dose 1 GM; Start 12/25/18 at 13:00 Valproate Sodium (Depakene Liquid Cup) 750 mg Q8H GTB Last administered on 12/25/18at 12:40; Admin Dose 750 MG; Start 12/25/18 at 13:30 Zinc Sulfate (Zinc Sulfate) 220 mg DAILY GTB ; Start 12/26/18 at 09:00 Multivitamins/ Minerals (Theragran-M) 1 tab DAILY GTB ; Start 12/26/18 at 09:00 Cefepime HCl 50 ml @ 100 mls/hr Q12 IVPB ; Start 12/25/18 at 23:00; Status UNV Vancomycin HCl (Vanco Iv Per Pharmacy) VANCOMYCIN PER PHARMACY PER PROTOCOL XX ; Start 12/25/18 at 23:00; Status UNV Allergies: Coded Allergies: No Known Drug Allergies (Verified Allergy, Mild, 12/25/18) Past Surgical History Past Surgical Hx: other (trach, craniectomy, G tube placement) Social History Smoking Status: Unknown if ever smoked Exam/Review of Systems Exam Vitals Vital Signs Date Temp Pulse Resp B/P (MAP) Pulse Ox O2 O2 Flow FiO2 Time Delivery Rate 12/25/18 97.8 78 20 119/63 98 Trach 19:50 (81) Collar 12/25/18 8.0 19:30 12/25/18 40 19:15 Constitutional: non-verbal Psych: other (obtunded) Head: other (h/o craniectomy) Eyes: nl lids ENMT: nl external ears & nose, nl nasal mucosa & septum Neck: other (trach) Respiratory: crackles/rales Cardiovascular: regular rate and rhythm, nl pulses Gastrointestinal: soft, non-tender, other (GT) Genitourinary - Male: other (FC) Musculoskeletal: other (contractured UEs, less contractured LEs) Extremities: No edema Neurological: unresponsive Results Result Diagram: 12/25/18 0001 12/25/18 0001 Results 24hrs Laboratory Tests Test 12/25/18 00:01 12/25/18 00:03 12/25/18 01:50 12/25/18 05:46 White Blood Count 17.2 #H Red Blood Count 4.16 L Hemoglobin 11.3 L Hematocrit 35.8 L Mean Corpuscular Volume 86.1 Mean Corpuscular 27.2 L Hemoglobin Mean Corpuscular 31.6 L Hemoglobin Concent Red Cell Distribution 15.1 H Width Platelet Count 438 #H Mean Platelet Volume 10.3 Immature Granulocytes % 0.500 H Neutrophils % 88.9 H Lymphocytes % 5.8 L Monocytes % 4.1 Eosinophils % 0.5 Basophils % 0.2 Nucleated Red Blood 0.0 Cells % Immature Granulocytes # 0.080 H Neutrophils # 15.3 H Lymphocytes # 1.0 Monocytes # 0.7 Eosinophils # 0.1 Basophils # 0.0 Nucleated Red Blood 0.0 Cells # Prothrombin Time 13.2 Prothrombin Time Ratio 1.0 INR International 0.99 Normalized Ratio Activated 33.5 Partial Thromboplast Time Sodium Level 137 Potassium Level 4.7 Chloride Level 96 L Carbon Dioxide Level 34 H Anion Gap 7 Blood Urea Nitrogen 20 Creatinine 0.59 L Est Glomerular Filtrat > 60 Rate mL/min Glucose Level 209 Calcium Level 9.4 Total Bilirubin 0.4 Direct Bilirubin 0.00 Indirect Bilirubin 0.4 Aspartate Amino 19 Transf (AST/SGOT) Alanine 8 L Aminotransferase (ALT/SG PT) Alkaline Phosphatase 110 Troponin I 0.015 Total Protein 7.9 Albumin 3.5 Globulin 4.40 H Albumin/Globulin Ratio 0.79 POC Venous Lactate 1.7 Lactic Acid Level 1.4 1.2 Medications Medication Current Medications Ondansetron HCl (Zofran Inj) 4 mg ER BRIDGE PRN IV NAUSEA/VOMITING; Start 12/25/18 at 00:30; Stop 12/26/18 at 00:29 Acetaminophen (Tylenol Tab) 650 mg PRN PRN GTB TRACH TUBE CHANGE; Start 12/25/18 at 12:30 Acetaminophen (Tylenol Tab) 650 mg Q4H PRN GTB MILD PAIN LEVEL 1-3; Start 12/25/18 at 12:30 Ascorbic Acid (Vitamin C) 500 mg DAILY GTB ; Start 12/26/18 at 09:00 Bisacodyl (Dulcolax Supp) 10 mg DAILY PRN [place] NEEDED; Start 12/25/18 at 12:30 Carvedilol (Coreg) 3.125 mg BID GTB ; Start 12/25/18 at 21:00 Docusate Sodium (Colace) 100 mg QHS PO ; Start 12/25/18 at 21:00 Acetaminophen/ Hydrocodone Bitart ([place] (5/325)) 1 tab Q6H PRN GTB MODERATE PAIN LEVEL 4-6; Start 12/25/18 at 13:00 Lansoprazole (Prevacid) 30 mg BID GTB ; Start 12/25/18 at 21:00 Lisinopril (Zestril) 10 mg DAILY GTB Last administered on 12/25/18at 12:40; Admin Dose 10 MG; Start 12/25/18 at 12:30 Magnesium Hydroxide (Milk Of Mag) 30 ml Q24H GTB Last administered on 12/25/18at 12:39; Admin Dose 30 ML; Start 12/25/18 at 12:30 Senna (Senokot) 2 tab BID GTB ; Start 12/25/18 at 21:00 Sucralfate (Carafate Susp) 1 gm QID GTB Last administered on 12/25/18at 12:40; Admin Dose 1 GM; Start 12/25/18 at 13:00 Valproate Sodium (Depakene Liquid Cup) 750 mg Q8H GTB Last administered on 12/25/18at 12:40; Admin Dose 750 MG; Start 12/25/18 at 13:30 Zinc Sulfate (Zinc Sulfate) 220 mg DAILY GTB ; Start 12/26/18 at 09:00 Multivitamins/ Minerals (Theragran-M) 1 tab DAILY GTB ; Start 12/26/18 at 09:00 Cefepime HCl 50 ml @ 100 mls/hr Q12 IVPB ; Start 12/25/18 at 23:00; Status UNV Vancomycin HCl (Vanco Iv Per Pharmacy) VANCOMYCIN PER PHARMACY PER PROTOCOL XX ; Start 12/25/18 at 23:00; Status UNV APRIL JORDAN M.D. Dec 25, 2018 23:01
[2018-12-25] MEDS ORDERED: VANCOMYCIN IV PER PHARMACY XX SCH (23:30)
[2018-12-25] MEDS: DOCUSATE SODIUM 100 MG CAP PO SCH (23:38)
[2018-12-25] MEDS: SENNA TAB GTB SCH (23:39)
[2018-12-25] MEDS: LANSOPRAZOLE 30 MG CAP GTB SCH (23:39)
[2018-12-26] VITALS: BP 140/67; PULSE 81; RESP 20
[2018-12-26] MEDS: VANCOMYCIN HCL 1.25 GM in SOD CHLORIDE 0.9% 250 ML IVPB SCH ×3 (01:48→23:40)
[2018-12-26] MEDS: CEFEPIME 2GM/50 ML (PMX) 50 ML IVPB SCH ×3 (01:48→22:09)
[2018-12-26 03:48] VITALS: BP 127/67; PULSE 70; RESP 20
[2018-12-26] MEDS: VALPROIC ACID LIQUID CUP 250 MG/5 ML CUP GTB SCH ×3 (07:01→22:10)
[2018-12-26 07:13] VITALS: BP 139/67; PULSE 78; RESP 20
--- NOTE | 2018-12-26 07:35 | CONS ---
Assessment/Plan Assessment/Plan Assessment/Plan (Daily) FILM REVIEW ONLY: Mr. Arroyo has expected midline shift after craniectomy, brain injury and [employer] shunting. 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 Consultation Date/Type/Reason Admit Date/Time 12/25/2018 Date of Consultation: Dec 25, 2018 Type of Consult Neurosurgery Date/Time of Note DATE: 12/26/18 TIME: 07:31 Hx of Present Illness Film review of patient who has had prior massive CVA/hemorrhagic conversion, craniectomy, and PLUM[employer] shunt - question regarding significance of midline shift on scan Past Medical History Medical History: coronary artery disease, high cholesterol, hypertension, other (CVA, resp failure) Home Meds Reported Medications Lisinopril* (Lisinopril*) 10 Mg Tablet, 10 MG GTB DAILY, #30 TAB HOLD FOR SBP<110 OR HR<60 12/25/18 Docusate Sodium* (Colace*) 100 Mg Capsule, 100 MG GTB QHS, #30 CAP 12/25/18 Zinc Sulfate* (Zinc Sulfate*) 220 Mg Tablet, 220 MG GTB DAILY, TAB 12/25/18 Ascorbic Acid (Vitamin C) 500 Mg Tab, 500 MG GTB DAILY, TAB 12/25/18 Multivitamin with Minerals (Multivitamins with Minerals) 1 Each Tablet, 1 EACH GTB DAILY, TAB 12/25/18 Insulin Lispro (Humalog) 100 Unit/1 Ml Cartridge, 0 SQ SLIDING SCALE, EA IF BS 71-150=0, 151-200=1 UNIT,201-250=2 UNITS,251-300=3 UNITS,301-350=4 UNITS,351-400=5 UNITS,>400=6 UNITS AND CALL MD. 12/25/18 Na Phos,M-B/Na Phos,Di-Ba (Fleet Enema Extra) Unknown Strength Enema, 1 APPLIC RC Q2D, ENEMA 06/30/18 Bisacodyl* (Bisacodyl*) 10 Mg Supp, 10 MG [place] DAILY PRN for NEEDED, SUPP 06/30/18 Magnesium Hydroxide* (Milk Of Magnesia*) 400 Mg/5 Ml Oral.susp, 30 ML GTB Q24H for CONSTIPATION, ML 06/30/18 Sennosides* (Senna Lax*) 8.6 Mg Tablet, 2 TAB GTB BID, TAB 06/30/18 Insulin NPH Human Isophane (Humulin N) 100 Unit/1 Ml Vial, 28 UNIT SQ Q8H, VIAL 06/30/18 Hydrocodone/Acetaminophen ([place] 5-325 Tablet) 1 Each Tablet, 1 EACH GTB Q6H, TAB NEEDED FOR PAIN LEVEL 7-910 06/30/18 Acetaminophen* (Tylenol*) 500 Mg Tab, 1000 MG GTB Q4H PRN for PAIN 4-10, TAB 06/30/18 Acetaminophen* (Tylenol*) 325 Mg Tablet, 650 MG GTB PRN PRN for TRACH TUBE CHANGE, TAB AND PAIN MANAGEMENT 06/30/18 Acetaminophen* (Tylenol*) 325 Mg Tablet, 650 MG GTB Q4H PRN for MILD PAIN LEVEL 1-3, TAB AND FEVER 100 AND ABOVE 06/30/18 Amino Acids/Protein Hydrolys (PRO-STAT LIQUID) 30 Ml Liquid.pkt, 30 ML GTB DAILY SUGAR FREE 06/30/18 Carvedilol* (Carvedilol*) 3.125 Mg Tablet, 3.125 MG GTB BID, #60 TAB HOLD IF SBP<110 OR HR<60 06/30/18 Valproic Acid* (Valproic Acid* Liq) 250 Mg/5 Ml Syrup, 15 ML GTB Q8H, ML 06/30/18 Sucralfate* (Carafate*) 1 Gm/10 Ml Susp, 1 GM GTB QID, EA 06/30/18 Lansoprazole* (Lansoprazole*) 30 Mg Capsule.dr, 30 MG GTB BID, CAP 06/30/18 Lactobacillus Acidophilus (Acidophilus Lactobacillus) 1 Each Capsule, 1 EACH GTB DAILY, CAP 06/30/18 Discontinued Reported Medications Acetylcysteine* (Mucomyst*) 4 Ml Soln, 3 ML NEB BID, EA 06/30/18 Insulin Aspart* (Novolog Insulin Pen*) 100 Unit/Ml Soln, 0 SC .SLIDING SCALE AC, EA IF BS 0-120=0 UNITS,120-150=0 UNIT, 151-200=1 UNIT, 201-250=2 UNIT, 251-300=3 UNIT, 301-350=4 UNIT, 351-400=5 UNIT, ABOVE 400=6 UNIT AND CALL 06/30/18 Glucagon HCl (Glucagon HCl) 1 Mg Vial, 1 MG IJ NEEDED, VIAL IF BS BELOW 60 06/30/18 Cran/Vitc/Mannose/Inulin/Brom (Uti-Stat Liquid) 3,875 Mg/30 Ml Liquid, 30 ML GTB DAILY 06/30/18 Hydralazine Hcl* (Hydralazine Hcl*) 25 Mg Tab, 25 MG GTB Q6H, #60 TAB 06/30/18 Furosemide* (Lasix* Liq) 40 Mg/5 Ml Cup, 20 MG GTB DAILY, EA 06/30/18 Atorvastatin* (Atorvastatin*) 80 Mg Tablet, 80 MG GTB QHS, #30 TAB 06/30/18 Aspirin* (Aspirin* EC) 81 Mg Tablet.dr, 162 MG GTB DAILY, TAB 06/30/18 Lisinopril* (Lisinopril*) 5 Mg Tablet, 5 MG GTB DAILY, #30 TAB 06/30/18 Medications Current Medications Acetaminophen (Tylenol Tab) 650 mg PRN PRN GTB TRACH TUBE CHANGE; Start 12/25/18 at 12:30 Acetaminophen (Tylenol Tab) 650 mg Q4H PRN GTB MILD PAIN LEVEL 1-3; Start 12/25/18 at 12:30 Ascorbic Acid (Vitamin C) 500 mg DAILY GTB ; Start 12/26/18 at 09:00 Bisacodyl (Dulcolax Supp) 10 mg DAILY PRN [place] NEEDED; Start 12/25/18 at 12:30 Carvedilol (Coreg) 3.125 mg BID GTB Last administered on 12/25/18at 23:40; Admin Dose 3.125 MG; Start 12/25/18 at 21:00 Docusate Sodium (Colace) 100 mg QHS PO Last administered on 12/25/18at 23:38; Admin Dose 100 MG; Start 12/25/18 at 21:00 Acetaminophen/ Hydrocodone Bitart ([place] (5/325)) 1 tab Q6H PRN GTB MODERATE PAIN LEVEL 4-6 Last administered on 12/25/18at 23:40; Admin Dose 1 TAB; Start 12/25/18 at 13:00 Lansoprazole (Prevacid) 30 mg BID GTB Last administered on 12/25/18at 23:39; Admin Dose 30 MG; Start 12/25/18 at 21:00 Lisinopril (Zestril) 10 mg DAILY GTB Last administered on 12/25/18at 12:40; Admin Dose 10 MG; Start 12/25/18 at 12:30 Magnesium Hydroxide (Milk Of Mag) 30 ml Q24H GTB Last administered on 12/25/18at 12:39; Admin Dose 30 ML; Start 12/25/18 at 12:30 Senna (Senokot) 2 tab BID GTB Last administered on 12/25/18at 23:39; Admin Dose 2 TAB; Start 12/25/18 at 21:00 Sucralfate (Carafate Susp) 1 gm QID GTB Last administered on 12/25/18at 23:38; Admin Dose 1 GM; Start 12/25/18 at 13:00 Valproate Sodium (Depakene Liquid Cup) 750 mg Q8H GTB Last administered on 12/26/18at 07:01; Admin Dose 750 MG; Start 12/25/18 at 13:30 Zinc Sulfate (Zinc Sulfate) 220 mg DAILY GTB ; Start 12/26/18 at 09:00 Multivitamins/ Minerals (Theragran-M) 1 tab DAILY GTB ; Start 12/26/18 at 09:00 Cefepime HCl 50 ml @ 100 mls/hr Q12 IVPB Last administered on 12/26/18at 01:48; Admin Dose 100 MLS/HR; Start 12/25/18 at 23:00 Vancomycin HCl (Vanco Iv Per Pharmacy) VANCOMYCIN PER PHARMACY PER PROTOCOL XX ; Start 12/25/18 at 23:30 Vancomycin HCl 1.25 gm/Sodium Chloride 250 ml @ 83.333 mls/ hr Q12H IVPB Last administered on 12/26/18at 01:48; Admin Dose 83.333 MLS/HR; Start 12/25/18 at 23:30 Miscellaneous Information (*Rx Drug Level Order Reminder*) VANCO TR @ 230 ON 2230 ONCE XX ; Start 12/26/18 at 22:30; Stop 12/26/18 at 22:31 Allergies: Coded Allergies: No Known Drug Allergies (Verified Allergy, Mild, 12/25/18) Past Surgical History Past Surgical Hx: other (trach, craniectomy, G tube placement) Social History Smoking Status: Unknown if ever smoked Exam/Review of Systems Exam Vitals Vital Signs Date Temp Pulse Resp B/P (MAP) Pulse Ox O2 O2 Flow FiO2 Time Delivery Rate 12/26/18 98.0 78 20 139/67 98 07:13 (91) 12/26/18 Aerosol 28 05:25 T Tube 12/26/18 5.0 02:15 Intake and Output 12/25/18 12/25/18 12/26/18 1515:00 23:00 07:00 OutputOutput Total 850 ml BalanceBalance -850 ml Exam N/A Results Result Diagram: 12/25/18 0001 12/25/18 0001 Imaging Imaging Right craniectomy with left [employer] shunt Expected midline shift consistent with syndrome of the trephined Medications Medication Current Medications Acetaminophen (Tylenol Tab) 650 mg PRN PRN GTB TRACH TUBE CHANGE; Start 12/25/18 at 12:30 Acetaminophen (Tylenol Tab) 650 mg Q4H PRN GTB MILD PAIN LEVEL 1-3; Start 12/25/18 at 12:30 Ascorbic Acid (Vitamin C) 500 mg DAILY GTB ; Start 12/26/18 at 09:00 Bisacodyl (Dulcolax Supp) 10 mg DAILY PRN [place] NEEDED; Start 12/25/18 at 12:30 Carvedilol (Coreg) 3.125 mg BID GTB Last administered on 12/25/18at 23:40; Admin Dose 3.125 MG; Start 12/25/18 at 21:00 Docusate Sodium (Colace) 100 mg QHS PO Last administered on 12/25/18at 23:38; Admin Dose 100 MG; Start 12/25/18 at 21:00 Acetaminophen/ Hydrocodone Bitart ([place] (5/325)) 1 tab Q6H PRN GTB MODERATE PAIN LEVEL 4-6 Last administered on 12/25/18at 23:40; Admin Dose 1 TAB; Start 12/25/18 at 13:00 Lansoprazole (Prevacid) 30 mg BID GTB Last administered on 12/25/18at 23:39; Admin Dose 30 MG; Start 12/25/18 at 21:00 Lisinopril (Zestril) 10 mg DAILY GTB Last administered on 12/25/18at 12:40; Admin Dose 10 MG; Start 12/25/18 at 12:30 Magnesium Hydroxide (Milk Of Mag) 30 ml Q24H GTB Last administered on 12/25/18at 12:39; Admin Dose 30 ML; Start 12/25/18 at 12:30 Senna (Senokot) 2 tab BID GTB Last administered on 12/25/18at 23:39; Admin Dose 2 TAB; Start 12/25/18 at 21:00 Sucralfate (Carafate Susp) 1 gm QID GTB Last administered on 12/25/18at 23:38; Admin Dose 1 GM; Start 12/25/18 at 13:00 Valproate Sodium (Depakene Liquid Cup) 750 mg Q8H GTB Last administered on 12/26/18at 07:01; Admin Dose 750 MG; Start 12/25/18 at 13:30 Zinc Sulfate (Zinc Sulfate) 220 mg DAILY GTB ; Start 12/26/18 at 09:00 Multivitamins/ Minerals (Theragran-M) 1 tab DAILY GTB ; Start 12/26/18 at 09:00 Cefepime HCl 50 ml @ 100 mls/hr Q12 IVPB Last administered on 12/26/18at 01:48; Admin Dose 100 MLS/HR; Start 12/25/18 at 23:00 Vancomycin HCl (Vanco Iv Per Pharmacy) VANCOMYCIN PER PHARMACY PER PROTOCOL XX ; Start 12/25/18 at 23:30 Vancomycin HCl 1.25 gm/Sodium Chloride 250 ml @ 83.333 mls/ hr Q12H IVPB Last administered on 12/26/18at 01:48; Admin Dose 83.333 MLS/HR; Start 12/25/18 at 23:30 Miscellaneous Information (*Rx Drug Level Order Reminder*) VANCO TR @ 230 ON 0 ONCE XX ; Start 12/26/18 at 22:30; Stop 12/26/18 at 22:31 CHARLES SERRANO MD Dec 26, 2018 07:35
[2018-12-26] MEDS: SENNA TAB GTB SCH ×2 (08:24→22:10)
[2018-12-26] MEDS: LANSOPRAZOLE 30 MG CAP GTB SCH ×2 (08:24→22:10)
[2018-12-26] MEDS: LISINOPRIL 10 MG TAB GTB SCH (08:24)
[2018-12-26] MEDS: ZINC SULFATE 220 MG CAP GTB SCH (08:24)
[2018-12-26] MEDS: ASCORBIC ACID 500 MG TAB GTB SCH (08:24)
[2018-12-26] MEDS: SUCRALFATE (100 MG/ML) 10ML CUP GTB SCH ×4 (08:24→22:10)
[2018-12-26] MEDS: MULTIVITAMINS/MINERALS TAB GTB SCH (08:24)
[2018-12-26 11:41] VITALS: BP 157/69; PULSE 72; RESP 20
--- NOTE | 2018-12-26 11:41 | CONS ---
Consultation Date/Type/Reason Admit Date/Time 12/25/2018 Type of Consult Cardiology Date/Time of Note DATE: 12/26/18 TIME: 11:40 Hx of Present Illness 53 yo with CMY 35%, SVT, HTN, CAD- h/o AVNRT - with sinus tach here and RBBB - better now - con't supportive Rx - full note dictated # [id number] Past Medical History Home Meds Reported Medications Lisinopril* (Lisinopril*) 10 Mg Tablet, 10 MG GTB DAILY, #30 TAB HOLD FOR SBP<110 OR HR<60 12/25/18 Docusate Sodium* (Colace*) 100 Mg Capsule, 100 MG GTB QHS, #30 CAP 12/25/18 Zinc Sulfate* (Zinc Sulfate*) 220 Mg Tablet, 220 MG GTB DAILY, TAB 12/25/18 Ascorbic Acid (Vitamin C) 500 Mg Tab, 500 MG GTB DAILY, TAB 12/25/18 Multivitamin with Minerals (Multivitamins with Minerals) 1 Each Tablet, 1 EACH GTB DAILY, TAB 12/25/18 Insulin Lispro (Humalog) 100 Unit/1 Ml Cartridge, 0 SQ SLIDING SCALE, EA IF BS 71-150=0, 151-200=1 UNIT,201-250=2 UNITS,251-300=3 UNITS,301-350=4 UNITS,351-400=5 UNITS,>400=6 UNITS AND CALL MD. 12/25/18 Na Phos,M-B/Na Phos,Di-Ba (Fleet Enema Extra) Unknown Strength Enema, 1 APPLIC RC Q2D, ENEMA 06/30/18 Bisacodyl* (Bisacodyl*) 10 Mg Supp, 10 MG NH DAILY PRN for NEEDED, SUPP 06/30/18 Magnesium Hydroxide* (Milk Of Magnesia*) 400 Mg/5 Ml Oral.susp, 30 ML GTB Q24H for CONSTIPATION, ML 06/30/18 Sennosides* (Senna Lax*) 8.6 Mg Tablet, 2 TAB GTB BID, TAB 06/30/18 Insulin NPH Human Isophane (Humulin N) 100 Unit/1 Ml Vial, 28 UNIT SQ Q8H, VIAL 06/30/18 Hydrocodone/Acetaminophen (Toponas 5-325 Tablet) 1 Each Tablet, 1 EACH GTB Q6H, TAB NEEDED FOR PAIN LEVEL 7-910 06/30/18 Acetaminophen* (Tylenol*) 500 Mg Tab, 1000 MG GTB Q4H PRN for PAIN 4-11/29, TAB 06/30/18 Acetaminophen* (Tylenol*) 325 Mg Tablet, 650 MG GTB PRN PRN for TRACH TUBE CHANGE, TAB AND PAIN MANAGEMENT 06/30/18 Acetaminophen* (Tylenol*) 325 Mg Tablet, 650 MG GTB Q4H PRN for MILD PAIN LEVEL 1-3, TAB AND FEVER 100 AND ABOVE 06/30/18 Amino Acids/Protein Hydrolys (PRO-STAT LIQUID) 30 Ml Liquid.pkt, 30 ML GTB DAILY SUGAR FREE 06/30/18 Carvedilol* (Carvedilol*) 3.125 Mg Tablet, 3.125 MG GTB BID, #60 TAB HOLD IF SBP<110 OR HR<60 06/30/18 Valproic Acid* (Valproic Acid* Liq) 250 Mg/5 Ml Syrup, 15 ML GTB Q8H, ML 06/30/18 Sucralfate* (Carafate*) 1 Gm/10 Ml Susp, 1 GM GTB QID, EA 06/30/18 Lansoprazole* (Lansoprazole*) 30 Mg Capsule.dr, 30 MG GTB BID, CAP 06/30/18 Lactobacillus Acidophilus (Acidophilus Lactobacillus) 1 Each Capsule, 1 EACH GTB DAILY, CAP 06/30/18 Discontinued Reported Medications Acetylcysteine* (Mucomyst*) 4 Ml Soln, 3 ML NEB BID, EA 06/30/18 Insulin Aspart* (Novolog Insulin Pen*) 100 Unit/Ml Soln, 0 SC .SLIDING SCALE AC, EA IF BS 0-120=0 UNITS,120-150=0 UNIT, 151-200=1 UNIT, 201-250=2 UNIT, 251-300=3 UNIT, 301-350=4 UNIT, 351-400=5 UNIT, ABOVE 400=6 UNIT AND CALL MD. 06/30/18 Glucagon HCl (Glucagon HCl) 1 Mg Vial, 1 MG IJ NEEDED, VIAL IF BS BELOW 60 06/30/18 Cran/Vitc/Mannose/Inulin/Brom (Uti-Stat Liquid) 3,875 Mg/30 Ml Liquid, 30 ML GTB DAILY 06/30/18 Hydralazine Hcl* (Hydralazine Hcl*) 25 Mg Tab, 25 MG GTB Q6H, #60 TAB 06/30/18 Furosemide* (Lasix* Liq) 40 Mg/5 Ml Cup, 20 MG GTB DAILY, EA 06/30/18 Atorvastatin* (Atorvastatin*) 80 Mg Tablet, 80 MG GTB QHS, #30 TAB 06/30/18 Aspirin* (Aspirin* EC) 81 Mg Tablet.dr, 162 MG GTB DAILY, TAB 06/30/18 Lisinopril* (Lisinopril*) 5 Mg Tablet, 5 MG GTB DAILY, #30 TAB 06/30/18 Medications Current Medications Acetaminophen (Tylenol Tab) 650 mg PRN PRN GTB TRACH TUBE CHANGE; Start 12/25/18 at 12:30 Acetaminophen (Tylenol Tab) 650 mg Q4H PRN GTB MILD PAIN LEVEL 1-3; Start 12/25/18 at 12:30 Ascorbic Acid (Vitamin C) 500 mg DAILY GTB Last administered on 12/26/18at 08:24; Admin Dose 500 MG; Start 12/26/18 at 09:00 Bisacodyl (Dulcolax Supp) 10 mg DAILY PRN NH NEEDED; Start 12/25/18 at 12:30 Carvedilol (Coreg) 3.125 mg BID GTB Last administered on 12/26/18at 08:24; Admin Dose 3.125 MG; Start 12/25/18 at 21:00 Docusate Sodium (Colace) 100 mg QHS PO Last administered on 12/25/18at 23:38; Admin Dose 100 MG; Start 12/25/18 at 21:00 Acetaminophen/ Hydrocodone Bitart (Toponas (5/325)) 1 tab Q6H PRN GTB MODERATE PAIN LEVEL 4-6 Last administered on 12/25/18at 23:40; Admin Dose 1 TAB; Start 12/25/18 at 13:00 Lansoprazole (Prevacid) 30 mg BID GTB Last administered on 12/26/18at 08:24; Admin Dose 30 MG; Start 12/25/18 at 21:00 Lisinopril (Zestril) 10 mg DAILY GTB Last administered on 12/26/18at 08:24; Admin Dose 10 MG; Start 12/25/18 at 12:30 Magnesium Hydroxide (Milk Of Mag) 30 ml Q24H GTB Last administered on 12/25/18 12:39; Admin Dose 30 ML; Start 12/25/18 at 12:30 Senna (Senokot) 2 tab BID GTB Last administered on 12/26/18 08:24; Admin Dose 2 TAB; Start 12/25/18 at 21:00 Sucralfate (Carafate Susp) 1 gm QID GTB Last administered on 12/26/18 08:24; Admin Dose 1 GM; Start 12/25/18 at 13:00 Valproate Sodium (Depakene Liquid Cup) 750 mg Q8H GTB Last administered on 12/26/18 07:01; Admin Dose 750 MG; Start 12/25/18 at 13:30 Zinc Sulfate (Zinc Sulfate) 220 mg DAILY GTB Last administered on 12/26/18 08:24; Admin Dose 220 MG; Start 12/26/18 at 09:00 Multivitamins/ Minerals (Theragran-M) 1 tab DAILY GTB Last administered on 12/26/18 08:24; Admin Dose 1 TAB; Start 12/26/18 at 09:00 Cefepime HCl 50 ml @ 100 mls/hr Q12 IVPB Last administered on 12/26/18 08:25; Admin Dose 100 MLS/HR; Start 12/25/18 at 23:00 Vancomycin HCl (Vanco Iv Per Pharmacy) VANCOMYCIN PER PHARMACY PER PROTOCOL XX ; Start 12/25/18 at 23:30 Vancomycin HCl 1.25 gm/Sodium Chloride 250 ml @ 83.333 mls/ hr Q12H IVPB Last administered on 12/26/18 01:48; Admin Dose 83.333 MLS/HR; Start 12/25/18 at 23:30 Miscellaneous Information (*Rx Drug Level Order Reminder*) VANCO TR @ 230 ON 2230 ONCE XX ; Start 12/26/18 at 22:30; Stop 12/26/18 at 22:31 Allergies: Coded Allergies: No Known Drug Allergies (Verified Allergy, Mild, 12/25/18) Past Surgical History Past Surgical Hx: other (trach, craniectomy, G tube placement) Social History Smoking Status: Unknown if ever smoked Exam/Review of Systems Vital Signs Vitals Vital Signs Date Temp Pulse Resp B/P (MAP) Pulse Ox O2 O2 Flow FiO2 Time Delivery Rate 12/26/18 5.0 28 07:57 12/26/18 69 18 98 Aerosol 07:57 T Tube 12/26/18 98.0 139/67 07:13 (91) Intake and Output 12/25/18 12/25/18 12/26/18 1414:59 22:59 06:59 IntakeIntake Total 1200 ml OutputOutput Total 2450 ml BalanceBalance -1250 ml Labs Result Diagram: 12/25/18 0001 12/25/18 0001 Results 24hrs Laboratory Tests Test 12/26/18 11:27 White Blood Count Pending Red Blood Count Pending Hemoglobin Pending Hematocrit Pending Mean Corpuscular Volume Pending Mean Corpuscular Hemoglobin Pending Mean Corpuscular Hemoglobin Concent Pending Red Cell Distribution Width Pending Platelet Count Pending Mean Platelet Volume Pending Medications Medications Current Medications Acetaminophen (Tylenol Tab) 650 mg PRN PRN GTB TRACH TUBE CHANGE; Start 12/25/18 at 12:30 Acetaminophen (Tylenol Tab) 650 mg Q4H PRN GTB MILD PAIN LEVEL 1-3; Start 12/25/18 at 12:30 Ascorbic Acid (Vitamin C) 500 mg DAILY GTB Last administered on 12/26/18at 08:24; Admin Dose 500 MG; Start 12/26/18 at 09:00 Bisacodyl (Dulcolax Supp) 10 mg DAILY PRN NH NEEDED; Start 12/25/18 at 12:30 Carvedilol (Coreg) 3.125 mg BID GTB Last administered on 12/26/18at 08:24; Admin Dose 3.125 MG; Start 12/25/18 at 21:00 Docusate Sodium (Colace) 100 mg QHS PO Last administered on 12/25/18at 23:38; Admin Dose 100 MG; Start 12/25/18 at 21:00 Acetaminophen/ Hydrocodone Bitart (Toponas (5/325)) 1 tab Q6H PRN GTB MODERATE P AIN LEVEL 4-6 Last administered on 12/25/18at 23:40; Admin Dose 1 TAB; Start 12/25/18 at 13:00 Lansoprazole (Prevacid) 30 mg BID GTB Last administered on 12/26/18at 08:24; Admin Dose 30 MG; Start 12/25/18 at 21:00 Lisinopril (Zestril) 10 mg DAILY GTB Last administered on 12/26/18 08:24; Admin Dose 10 MG; Start 12/25/18 at 12:30 Magnesium Hydroxide (Milk Of Mag) 30 ml Q24H GTB Last administered on 12/25/18 12:39; Admin Dose 30 ML; Start 12/25/18 at 12:30 Senna (Senokot) 2 tab BID GTB Last administered on 12/26/18 08:24; Admin Dose 2 TAB; Start 12/25/18 at 21:00 Sucralfate (Carafate Susp) 1 gm QID GTB Last administered on 12/26/18 08:24; Admin Dose 1 GM; Start 12/25/18 at 13:00 Valproate Sodium (Depakene Liquid Cup) 750 mg Q8H GTB Last administered on 12/26/18 07:01; Admin Dose 750 MG; Start 12/25/18 at 13:30 Zinc Sulfate (Zinc Sulfate) 220 mg DAILY GTB Last administered on 12/26/18 08:24; Admin Dose 220 MG; Start 12/26/18 at 09:00 Multivitamins/ Minerals (Theragran-M) 1 tab DAILY GTB Last administered on 12/26/18 08:24; Admin Dose 1 TAB; Start 12/26/18 at 09:00 Cefepime HCl 50 ml @ 100 mls/hr Q12 IVPB Last administered on 12/26/18 08:25; Admin Dose 100 MLS/HR; Start 12/25/18 at 23:00 Vancomycin HCl (Vanco Iv Per Pharmacy) VANCOMYCIN PER PHARMACY PER PROTOCOL XX ; Start 12/25/18 at 23:30 Vancomycin HCl 1.25 gm/Sodium Chloride 250 ml @ 83.333 mls/ hr Q12H IVPB Last administered on 12/26/18 01:48; Admin Dose 83.333 MLS/HR; Start 12/25/18 at 23:30 Miscellaneous Information (*Rx Drug Level Order Reminder*) VANCO TR @ 230 ON 2230 ONCE XX ; Start 12/26/18 at 22:30; Stop 12/26/18 at 22:31 KYLEIGH MENDENHALL MD Dec 26, 2018 11:41
--- NOTE | 2018-12-26 11:57 | CONS ---
DATE OF ADMISSION: 12/25/2018 DATE OF CONSULTATION: TYPE OF CONSULTATION: Pulmonary. REASON FOR CONSULTATION: Chronic respiratory failure. Thank you, Dr. Cortez, for this consultation. HISTORY OF PRESENT ILLNESS: This is an unfortunate 53-year-old gentleman with history of cardiopulmo nary arrest, massive intracranial hemorrhage following a CVA and craniectomy with severe encephalopat hy, [employer] shunt, with chronic respiratory failure on tracheostomy and G-tube, transferred from [facility] [place] facility yesterday for increasing fever, chills and hemodynamic instability. The patient is n onverbal and unable to give me further history. PAST MEDICAL HISTORY: As above. MEDICATIONS: Per chart. ALLERGIES: NONE. SOCIAL HISTORY: Nonsmoker, no alcohol, no history of drug use. FAMILY HISTORY: Noncontributory. SYSTEMS REVIEW: A 12-point review of systems was negative other than that mentioned above. PHYSICAL EXAMINATION: GENERAL: Elderly-appearing gentleman, appears comfortable at rest, no acute distress. VITAL SIGNS: Currently afebrile, pulse is 69, blood pressure 139/67, O2 saturation 96% on 5 liters c ool aerosol. NECK: Trach site appears clean and intact. CARDIAC: S1, S2, no added sounds or murmurs. CHEST: Diminished air entry bilaterally. ABDOMEN: Soft, nontender. No guarding or rebound. EXTREMITIES: No cyanosis, clubbing, 1+ edema. NEUROLOGIC: Unable to assess. LABORATORY DATA: White count 17.2, hemoglobin 11.3, platelets 438. Chemistry: BUN 20, creatinine 0 .59. Urinalysis positive for UTI. DIAGNOSTIC DATA: Chest x-ray showed possible consolidation, left lower lobe. CT brain shows mild ve ntriculomegaly. IMPRESSION AND PLAN: 1. Severe sepsis secondary to urinary tract infection and likely healthcare-associated pneumonia. 2. Massive intracranial hemorrhage status post craniectomy and [employer] shunt. 3. Chronic respiratory failure. 4. Dysphagia with G-tube. The patient will require: 1. Continued broad spectrum antibiotics. 2. Appreciate neurosurgery consultation. 3. Tube feeding as tolerated. 4. Deep venous thrombosis and GI prophylaxis. 5. Address code status with family. Dictated By: LULU COKER/ROXANA Conf#: [id number] DID#: [id number] CC: NIA CORTEZ MD;*EndCC*
[2018-12-26] MEDS: MAGNESIUM HYDROXIDE 30ML CUP GTB SCH (12:17)
--- NOTE | 2018-12-26 12:18 | CONS ---
DATE OF ADMISSION: 12/25/2018 DATE OF CONSULTATION: 12/26/2018 TYPE OF CONSULTATION: Cardiology. REFERRING PHYSICIANS: Nia Domingo MD REASON FOR EVALUATION: Tachycardia, right bundle branch block, shortness of breath. HISTORY OF PRESENT ILLNESS: Mr. Arroyo is a 53-year-old unfortunate gentleman known to me from prior a dmissions, has a history of hypertension, dyslipidemia, history of cardiomyopathy with ejection fract ion 30% to 35%, history of intracranial hemorrhage requiring evacuation, now chronic encephalopathy, prior history of PCI and stenting who comes to the hospital now for evaluation of shortness of breath . The patient was also tachycardic on presentation with right bundle bunch block type pattern. This is fairly chronic finding for him. I believe he had right bundle branch block before. The patient is better now, with his heart rate coming down. He is still on a ventilator. He appears to be reaso nably euvolemic. For now, from a cardiac standpoint, conservative therapy is expected. We will keep the patient euvolemic. There is no evidence of ischemia. Patient is DNR based on the last note by Dr. Vincent. PAST MEDICAL HISTORY: 1. As noted above, CHF with ejection fraction 30%. 2. Encephalopathy, chronic. 3. History of prior craniotomy. 4. History of intracranial hemorrhage, not anticoagulated because of a possible history of SVT versu s AVNRT, with a history of coronary artery disease with stenting. ALLERGIES: NO KNOWN DRUG ALLERGIES. SOCIAL HISTORY: The patient does not smoke, does not drink, does not use any drugs. FAMILY HISTORY: Positive for diabetes and hypertension. MEDICATIONS: Here, include: 1. Ascorbic acid. 2. Zinc. 3. Multivitamin. 4. Vancomycin. 5. Cefepime, 6. Coreg 3.125 mg b.i.d. 5. Docusate. 6. Lansoprazole 30 mg p.o. b.i.d. 7. Senna. 8. Hydrocodone. 9. Tylenol. 10. Magnesium hydroxide. REVIEW OF SYSTEMS: CONSTITUTIONAL: No fevers, no chills, no recent weight change. HEENT: No changes in vision or hearing. CARDIAC: No chest pain is reported, although the patient was tachycardic. RESPIRATORY: Short of breath, [id number]. GASTROINTESTINAL: No nausea, vomiting. The patient has a PEG. GENITOURINARY: No dysuria, hematuria. NEUROLOGIC: The patient is encephalopathic status post evacuation of intracranial hemorrhage. PHYSICAL EXAMINATION: VITAL SIGNS: Temperature 98.0, heart rate is now 69, blood pressure 139/69. GENERAL APPEARANCE: A well-nourished gentleman in no acute distress, alert, oriented x3, not aware o f his condition. HEAD: Status post craniotomy. NECK: With trach. HEART: Regular, soft II/ murmur. PMI is minimally displaced. LUNGS: Coarse to base. ABDOMEN: Distended. Bowel sounds are present. There is no hepatosplenomegaly. EXTREMITIES: Trace edema. ECG read by me showed sinus tachycardia at the rate of 105 with right bundle bunch block pattern. LABORATORY DATA: White blood cell count is 17.2. Hemoglobin is 13.3, platelets of 438. INR 0.99, s odium 137, ____ 3.7, BUN is 20, creatinine 0.9. ASSESSMENT AND PLAN: 1. Tachycardia. The patient's tachycardia is sinus tachycardia in nature. Continue to monitor for clinical heart rate decline. Right bundle branch block, likely chronic finding. No intervention is needed. 2. Cardiomyopathy. The patient has known cardiomyopathy, ischemic, ejection fraction 30% to 35%. C ontinue to keep the patient euvolemic. 3. History of atrioventricular mary reentrant tachycardia versus other supraventricular tachycardia . The patient is not a candidate for anticoagulation with his intraventricular hemorrhage, now rate controlled. Continue on a small dose of a beta scooby. 4. Febrile illness. Continue antibiotics. Primary team follows. I would like to thank Dr. Domingo for referring this patient for my evaluation. Dictated By: KYLEIGH MENDENHALL MD ML/NTS Conf#: [id number] DID#: [id number] CC: NIA DOMINGO MD;*EndCC*
--- NOTE | 2018-12-26 14:20 | CONS ---
[facility] HCIS Consult Follow-up Patient Name: Johan Arroyo Unit Number: [id number] Date of : 1965 Patient Status: Admitted Inpatient Attending Doctor: Chaparro Cortez MD Edit: APRIL KELLY M.D. on 12/27/18 @ 22:13 Leticia: I discussed the management with GRGE Acosta and agree Assessment/Plan Assessment/Plan Hospital Course (Demo Recall) assessment/impression: - sepsis due to UTI and bacteremia - UTI due to MDR Proteus mirabilis - bacteremia d/t Staph aureus - h/o bacteremia due to MRSA in 10/2018 - h/o possible HCAP vs. 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) with significant encephalomalacia; and hydrocephalus requiring VPS placement at [facility] - chronic hypoxic resp failure - h/o tracheostomy placement - dysphagia - h/o G tube placement - rash likely d/t folliculitis or dermatitis - improving recommendations: - repeat blood cultures x2, 15 min apart - await further microbiological data: blood cultures (prelim Staph aureus) and tracheal aspirate culture (in process) - continue IV cefepime (12/25/2018-) for UTI; Nelson was replaced 12/25/2018 - continue IV vancomycin (12/25/2018-) in case of recurrent MRSA bacteremia - we recommend 2D echo to r/o endocarditis - monitor rash; keep clean and dry Management d/w BRADLEY Mmcahon and with Dr. Kelly Consultation Date/Type/Reason Admit Date/Time Dec 25, 2018 at 00:18 Initial Consult Date 12/25/18 Type of Consult Infectious Disease Requesting Provider: REGINA BUI Date/Time of Note DATE: 12/26/18 TIME: 14:10 24 HR Interval Summary Free Text/Dictation Urine culture grew MDR Proteus sensitive to Cefepime. Blood cultures x2 sets are growing Staph Aureus. Resp culture is pending. Pt is afebrile and leukocytosis has resolved. Subjective hx not possible: pt non-verbal Exam/Review of Systems Exam Vitals Vital Signs Date Temp Pulse Resp B/P (MAP) Pulse Ox O2 O2 Flow FiO2 Time Delivery Rate 12/26/18 100 5.0 28 12:29 12/26/18 98.0 72 20 157/69 11:41 (98) 12/26/18 Aerosol 07:57 T Tube Intake and Output 12/25/18 12/25/18 12/26/18 1515:00 23:00 07:00 IntakeIntake Total 1200 ml OutputOutput Total 2450 ml BalanceBalance -1250 ml Constitutional: non-verbal, other (chronically debilitated) Psych: other (unable to assess as pt is obtunded) Head: other (R crainal defect, L parietal skull with scar with h/o craniectomy) Eyes: nl conjunctiva, nl lids ENMT: nl external ears & nose, nl nasal mucosa & septum, other (Unable to examine OP) Neck: other (trach midline and connected to T-piece) Cardiovascular: regular rate and rhythm, nl pulses; No edema Gastrointestinal: soft, non-tender, other (G-tube c/d/i with TF in progress); No distended Genitourinary - Male: other (Nelson in place with clear carlos manuel urine) Extremities: other (contratures, BUE>BLE); No edema Neurological: unresponsive (Obtunded) Skin: rash or lesions (Rash is less intense compared to photos seen in chart), other (sacrococcyx unstageable decub; scattered tattoos including "Cry later" on L chest wall) Results Result Diagram: 12/26/18 1127 12/26/18 1127 Results 24hrs Laboratory Tests Test 12/26/18 11:27 White Blood Count 6.9 # Red Blood Count 3.59 L Hemoglobin 9.7 L Hematocrit 30.9 L Mean Corpuscular Volume 86.1 Mean Corpuscular Hemoglobin 27.0 L Mean Corpuscular Hemoglobin Concent 31.4 L Red Cell Distribution Width 15.4 H Platelet Count 338 # Mean Platelet Volume 10.6 H Immature Granulocytes % 1.400 H Neutrophils % 75.3 Lymphocytes % 13.9 L Monocytes % 5.8 Eosinophils % 3.3 Basophils % 0.3 Nucleated Red Blood Cells % 0.0 Immature Granulocytes # 0.100 H Neutrophils # 5.2 Lymphocytes # 1.0 Monocytes # 0.4 Eosinophils # 0.2 Basophils # 0.0 Nucleated Red Blood Cells # 0.0 Sodium Level 139 Potassium Level 4.1 Chloride Level 103 Carbon Dioxide Level 32 H Anion Gap 4 L Blood Urea Nitrogen 19 Creatinine 0.45 L Est Glomerular Filtrat Rate mL/min > 60 Glucose Level 161 Calcium Level 8.7 Imaging Imaging CXR 12/24/2018: Left mid and lower lung consolidation and rule out pneumonia. CT brain 12/24/2018: IMPRESSION: 1. Since prior CT examination dated 11/12/2018 and MRI examination dated 11/16/2018 there is interval resection of the right frontal and right anterior parietal lobes. 2. Since the prior examination there is new 12 mm [id number] midline shift. 3. The basilar cisterns remain patent and symmetric and there is no evident tonsillar herniation. 4. Interval placement of left frontal approach ventriculostomy tube with successful decompression of the anterior horn of the right lateral ventricle and persistent ventriculomegaly in the posterior temporal/trigone region of the left lateral ventricle. 5. Previously seen right ventriculomegaly is resolved, with effacement of the right lateral ventricle. The salient findings and impression were communicated to the radiology Call Ce ntskip by Sreedhar for further communication to a licensed healthcare professional by the undersigned interpreting radiologist on 12/25/2018 at 0356 hours. Medications Medication Current Medications Acetaminophen (Tylenol Tab) 650 mg PRN PRN GTB TRACH TUBE CHANGE; Start 12/25/18 at 12:30 Acetaminophen (Tylenol Tab) 650 mg Q4H PRN GTB MILD PAIN LEVEL 1-3; Start 12/25/18 at 12:30 Ascorbic Acid (Vitamin C) 500 mg DAILY GTB Last administered on 12/26/18at 08:24; Admin Dose 500 MG; Start 12/26/18 at 09:00 Bisacodyl (Dulcolax Supp) 10 mg DAILY PRN OR NEEDED; Start 12/25/18 at 12:30 Carvedilol (Coreg) 3.125 mg BID GTB Last administered on 12/26/18 08:24; Admin Dose 3.125 MG; Start 12/25/18 at 21:00 Docusate Sodium (Colace) 100 mg QHS PO Last administered on 12/25/18 23:38; Admin Dose 100 MG; Start 12/25/18 at 21:00 Acetaminophen/ Hydrocodone Bitart (Gy[place] (5/325)) 1 tab Q6H PRN GTB MODERATE PAIN LEVEL 4-6 Last administered on 12/25/18 23:40; Admin Dose 1 TAB; Start 12/25/18 at 13:00 Lansoprazole (Prevacid) 30 mg BID GTB Last administered on 12/26/18 08:24; Admin Dose 30 MG; Start 12/25/18 at 21:00 Lisinopril (Zestril) 10 mg DAILY GTB Last administered on 12/26/18 08:24; Admin Dose 10 MG; Start 12/25/18 at 12:30 Magnesium Hydroxide (Milk Of Mag) 30 ml Q24H GTB Last administered on 12/26/18 12:17; Admin Dose 30 ML; Start 12/25/18 at 12:30 Senna (Senokot) 2 tab BID GTB Last administered on 12/26/18 08:24; Admin Dose 2 TAB; Start 12/25/18 at 21:00 Sucralfate (Carafate Susp) 1 gm QID GTB Last administered on 12/26/18 08:24; Admin Dose 1 GM; Start 12/25/18 at 13:00 Valproate Sodium (Depakene Liquid Cup) 750 mg Q8H GTB Last administered on 12/26/18 07:01; Admin Dose 750 MG; Start 12/25/18 at 13:30 Zinc Sulfate (Zinc Sulfate) 220 mg DAILY GTB Last administered on 12/26/18 08:24; Admin Dose 220 MG; Start 12/26/18 at 09:00 Multivitamins/ Minerals (Theragran-M) 1 tab DAILY GTB Last administered on 12/26/18 08:24; Admin Dose 1 TAB; Start 12/26/18 at 09:00 Cefepime HCl 50 ml @ 100 mls/hr Q12 IVPB Last administered on 12/26/18at 08:25; Admin Dose 100 MLS/HR; Start 12/25/18 at 23:00 Vancomycin HCl (Vanco Iv Per Pharmacy) VANCOMYCIN PER PHARMACY PER PROTOCOL XX ; Start 12/25/18 at 23:30 Vancomycin HCl 1.25 gm/Sodium Chloride 250 ml @ 83.333 mls/ hr Q12H IVPB Last administered on 12/26/18at 12:17; Admin Dose 83.333 MLS/HR; Start 12/25/18 at 23:30 Miscellaneous Information (*Rx Drug Level Order Reminder*) VANCO TR @ 230 ON 2230 ONCE XX ; Start 12/26/18 at 22:30; Stop 12/26/18 at 22:31 BISHNU ACOSTA NP Dec 26, 2018 14:20
[2018-12-26 15:50] VITALS: BP 124/89; PULSE 86; RESP 20
[2018-12-26 19:27] VITALS: BP 128/60; PULSE 90; RESP 2; RESP 20
[2018-12-26] MEDS: DOCUSATE SODIUM 100 MG CAP PO SCH (22:10)
[2018-12-27 00:04] VITALS: BP 123/56; PULSE 87; RESP 20
[2018-12-27 04:06] VITALS: BP 143/74; PULSE 65; RESP 20
[2018-12-27] MEDS: VALPROIC ACID LIQUID CUP 250 MG/5 ML CUP GTB SCH ×3 (06:43→20:39)
[2018-12-27 07:57] VITALS: BP 130/70; PULSE 74; RESP 20
[2018-12-27] MEDS: ASCORBIC ACID 500 MG TAB GTB SCH (09:28)
[2018-12-27] MEDS: LANSOPRAZOLE 30 MG CAP GTB SCH ×2 (09:28→20:39)
[2018-12-27] MEDS: ZINC SULFATE 220 MG CAP GTB SCH (09:28)
[2018-12-27] MEDS: SENNA TAB GTB SCH ×2 (09:28→20:39)
[2018-12-27] MEDS: MULTIVITAMINS/MINERALS TAB GTB SCH (09:28)
[2018-12-27] MEDS: SUCRALFATE (100 MG/ML) 10ML CUP GTB SCH ×4 (09:28→20:39)
[2018-12-27] MEDS: LISINOPRIL 10 MG TAB GTB SCH (09:29)
[2018-12-27] MEDS: hydrOXYzine HCL 25 MG TAB GTB SCH ×2 (09:29→20:39)
[2018-12-27] MEDS: CEFEPIME 2GM/50 ML (PMX) 50 ML IVPB SCH ×2 (10:22→20:39)
--- NOTE | 2018-12-27 10:43 | CONS ---
[facility] HCIS Consult Follow-up Patient Name: Johan Arroyo Unit Number: [id number] Date of : 1965 Patient Status: Admitted Inpatient Attending Doctor: Chaparro Cortez MD Edit: APRIL KELLY M.D. on 12/27/18 @ 22:12 Leticia: I discussed the management with QUILLER HAND Ade and agree Assessment/Plan Assessment/Plan Hospital Course (Demo Recall) Assessment/Impression: - sepsis due to UTI and bacteremia - UTI due to MDR Proteus mirabilis - bacteremia d/t Staph aureus - h/o bacteremia due to MRSA in 10/2018 - h/o possible HCAP vs. 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) with significant encephalomalacia; and hydrocephalus requiring VPS placement at [facility] - chronic hypoxic resp failure - h/o tracheostomy placement - dysphagia - h/o G tube placement - rash likely d/t folliculitis or dermatitis - improving recommendations: - Continue IV cefepime (12/25/2018-) for UTI; Nelson was replaced 12/25/2018 - Continue IV vancomycin (12/25/2018-) in case of recurrent MRSA bacteremia - F/u with repeat blood cultures (in process) - Await further microbiological data: repeat blood cxs and tracheal aspirate culture (GNR) - Monitor rash; keep clean and dry Management d/w Dr. Kelly Consultation Date/Type/Reason Admit Date/Time Dec 25, 2018 at 00:18 Initial Consult Date 12/25/18 Requesting Provider: REGINA BUI Date/Time of Note DATE: 12/27/18 TIME: 10:41 24 HR Interval Summary Free Text/Dictation Tracheal aspirate cx growing GNR. 12/25/18 Blood cultures grew coagulase negative staph. Repeat blood cultures "in process". WBC normal, remains afebrile. Subjective hx not possible: pt non-verbal Detailed Summary Additional Comments Unable to obtain, pt is obtunded. Exam/Review of Systems Exam Vitals Vital Signs Date Temp Pulse Resp B/P (MAP) Pulse Ox O2 O2 Flow FiO2 Time Delivery Rate 12/27/18 98.9 74 20 130/70 94 Trach 07:57 (90) Collar 12/27/18 5.0 28 05:05 Intake and Output 12/26/18 12/26/18 12/27/18 1515:00 23:00 07:00 IntakeIntake Total 50 ml 1390 ml 1340 ml OutputOutput Total 450 ml 1650 ml BalanceBalance 50 ml 940 ml -310 ml Constitutional: other (obtunded ) Psych: other (unable to assess) Head: normocephalic, atraumatic, other (R crainal defect, L parietal skull with healed scar, hx of craniectomy) Eyes: other (closed) ENMT: other Neck: other (trach midline site c/d/i) Respiratory: diminished breath sounds Cardiovascular: regular rate and rhythm Gastrointestinal: soft, non-tender, bowel sounds, other (gtube site c/d/i); No distended, No firm, No rebound or guarding Genitourinary - Male: other (FC draining clear yellow urine ) Musculoskeletal: other (contractures) Extremities: No cyanosis Neurological: unresponsive; No nl mental status, No nl speech, No nl strength Skin: other (unstageable sacrum, rash imporving, photos in chart reviewed.) Results Result Diagram: 12/27/1852212/27/18522 Results 24hrs Laboratory Tests Test 12/26/18 11:27 12/26/18 22:39 12/27/18 05:23 White Blood Count 6.9 # 9.3 # Red Blood Count 3.59 L 3.61 L Hemoglobin 9.7 L 9.8 L Hematocrit 30.9 L 30.7 L Mean Corpuscular Volume 86.1 85.0 Mean Corpuscular Hemoglobin 27.0 L 27.1 L Mean Corpuscular Hemoglobin Concent 31.4 L 31.9 L Red Cell Distribution Width 15.4 H 15.3 H Platelet Count 338 # 338 Mean Platelet Volume 10.6 H 11.2 H Immature Granulocytes % 1.400 H 1.000 H Neutrophils % 75.3 74.0 Lymphocytes % 13.9 L 14.3 L Monocytes % 5.8 8.7 Eosinophils % 3.3 1.8 Basophils % 0.3 0.2 Nucleated Red Blood Cells % 0.0 0.0 Immature Granulocytes # 0.100 H 0.090 H Neutrophils # 5.2 6.9 Lymphocytes # 1.0 1.3 Monocytes # 0.4 0.8 Eosinophils # 0.2 0.2 Basophils # 0.0 0.0 Nucleated Red Blood Cells # 0.0 0.0 Sodium Level 139 140 Potassium Level 4.1 4.3 Chloride Level 103 103 Carbon Dioxide Level 32 H 34 H Anion Gap 4 L 3 L Blood Urea Nitrogen 19 21 H Creatinine 0.45 L 0.39 L Est Glomerular Filtrat Rate mL/min > 60 > 60 Glucose Level 161 171 Calcium Level 8.7 8.5 Vancomycin Level Trough 10.0 Imaging Imaging PROCEDURE: XR Chest. CLINICAL INDICATION: Sepsis TECHNIQUE: AP portable chest was obtained COMPARISON: Chest 11/13/2015 FINDINGS: Tracheostomy in place appears unremarkable. Heart mildly enlarged. Catheter tubing along the patient's left neck chest and upper abdomen probably ventriculostomy catheter. Bases to the left and slightly rotated to the left. Hypoventilatory chest. Left mid to lower lung consolidation may all be due to atelectasis. Rule out pneumonia. Small left pleural effusion suspected. Right lung clear. No right pleural effusion. No pneumothoraces. No definite pulmonary vascular congestion. IMPRESSION: 1. Left mid and lower lung consolidation and rule out pneumonia. RPTAT:AAJJ Physician Shirin Date Time Electronically viewed and signed by Physician Shirin on 12/25/2018 03:17 ADDENDUM: The salient findings and impression were discussed with Dr. Yao of the [facility] emergency department by the undersigned interpreting radiologist on 12/25/2018 at 0445 hours. PROCEDURE: CT Brain without contrast. CLINICAL INDICATION: Fever and altered mental status. History of intracranial hemorrhage. Surgical changes of right craniotomy. IMPRESSION: 1. Since prior CT examination dated 11/12/2018 and MRI examination dated 11/16/2018 there is interval resection of the right frontal and right anterior parietal lobes. 2. Since the prior examination there is new 12 mm [id number] midline shift. 3. The basilar cisterns remain patent and symmetric and there is no evident tonsillar herniation. 4. Interval placement of left frontal approach ventriculostomy tube with successful decompression of the anterior horn of the right lateral ventricle and persistent ventriculomegaly in the posterior temporal/trigone region of the left lateral ventricle. 5. Previously seen right ventriculomegaly is resolved, with effacement of the right lateral ventricle. The salient findings and impression were communicated to the radiology Call Center by Sreedhar for further communication to a licensed healthcare professional by the undersigned interpreting radiologist on 12/25/2018 at 0356 hours. RPTAT: UU Physician Jonh Date Time Electronically viewed and signed by Physician Jonh on 12/25/2018 04:47 Medications Medication Current Medications Acetaminophen (Tylenol Tab) 650 mg PRN PRN GTB TRACH TUBE CHANGE; Start 12/25/18 at 12:30 Acetaminophen (Tylenol Tab) 650 mg Q4H PRN GTB MILD PAIN LEVEL 1-3; Start 12/25/18 at 12:30 Ascorbic Acid (Vitamin C) 500 mg DAILY GTB Last administered on 12/27/18 09:28; Admin Dose 500 MG; Start 12/26/18 at 09:00 Bisacodyl (Dulcolax Supp) 10 mg DAILY PRN [place] NEEDED; Start 12/25/18 at 12:30 Carvedilol (Coreg) 3.125 mg BID GTB Last administered on 12/27/18 09:29; Admin Dose 3.125 MG; Start 12/25/18 at 21:00 Docusate Sodium (Colace) 100 mg QHS PO Last administered on 12/26/18 22:10; Admin Dose 100 MG; Start 12/25/18 at 21:00 Acetaminophen/ Hydrocodone Bitart ([place] (5/325)) 1 tab Q6H PRN GTB MODERATE PAIN LEVEL 4-6 Last administered on 12/25/18 23:40; Admin Dose 1 TAB; Start 12/25/18 at 13:00 Lansoprazole (Prevacid) 30 mg BID GTB Last administered on 12/27/18 09:28; Admin Dose 30 MG; Start 12/25/18 at 21:00 Lisinopril (Zestril) 10 mg DAILY GTB Last administered on 12/27/18 09:29; Admin Dose 10 MG; Start 12/25/18 at 12:30 Magnesium Hydroxide (Milk Of Mag) 30 ml Q24H GTB Last administered on 12/26/18 12:17; Admin Dose 30 ML; Start 12/25/18 at 12:30 Senna (Senokot) 2 tab BID GTB Last administered on 12/27/18 09:28; Admin Dose 2 TAB; Start 12/25/18 at 21:00 Sucralfate (Carafate Susp) 1 gm QID GTB Last administered on 12/27/18 09:28; Admin Dose 1 GM; Start 12/25/18 at 13:00 Valproate Sodium (Depakene Liquid Cup) 750 mg Q8H GTB Last administered on 12/27/18 06:43; Admin Dose 750 MG; Start 12/25/18 at 13:30 Zinc Sulfate (Zinc Sulfate) 220 mg DAILY GTB Last administered on 12/27/18 09:28; Admin Dose 220 MG; Start 12/26/18 at 09:00 Multivitamins/ Minerals (Theragran-M) 1 tab DAILY GTB Last administered on 12/27/18 09:28; Admin Dose 1 TAB; Start 12/26/18 at 09:00 Cefepime HCl 50 ml @ 100 mls/hr Q12 IVPB Last administered on 12/27/18 10:22; Admin Dose 100 MLS/HR; Start 12/25/18 at 23:00 Vancomycin HCl (Vanco Iv Per Pharmacy) VANCOMYCIN PER PHARMACY PER PROTOCOL XX ; Start 12/25/18 at 23:30 Vancomycin HCl 1.25 gm/Sodium Chloride 250 ml @ 83.333 mls/ hr Q12H IVPB Last administered on 12/26/18 23:40; Admin Dose 83.333 MLS/HR; Start 12/25/18 at 23:30 Hydroxyzine HCl (Atarax) 25 mg BID GTB Last administered on 12/27/18 09:29; Admin Dose 25 MG; Start 12/27/18 at 09:00 KIT PEARSON NP Dec 27, 2018 10:43
[2018-12-27 11:23] VITALS: BP 148/82; PULSE 72; RESP 18
[2018-12-27] MEDS: VANCOMYCIN HCL 1.25 GM in SOD CHLORIDE 0.9% 250 ML IVPB SCH (11:58)
--- NOTE | 2018-12-27 12:03 | PN ---
Date/Time of Note Date/Time of Note DATE: 12/27/18 TIME: 11:59 Assessment/Plan VTE [place] [facility] [place]: 4 [place] [facility] [place] Yes Pharmacological prophylaxis: NA/contraindicated Pharm contraindication: bleeding Lines/Catheters IV Catheter Type (from [facility]): Saline Lock Urinary Cath still in place: Yes Reason Cath still needed: urinary retention Assessment/Plan Hospital Course Patient continues on cool aerosol mist via tracheostomy, sinus bradycardia with bundle branch block stable blood pressure remains afebrile. Dr. Bassett is called to see patient in dermatology consultation for generalized rash. Patient is continued on antibiotics for bacteremia and UTI. Assessment/Plan -Sepsis secondary to bacteremia and urinary tract infection. Dr. Kiran is following in infection disease consultation. -Chronic respiratory failure with tracheostomy, patient is currently on T-tube. -Rash, Dr. Bassett is asked to see patient in dermatology consultation. -Coronary artery disease, status post PTCA with stent placement -Ischemic cardiomyopathy -Diabetes -Dysphagia with G-tube -Dyslipidemia -History of right hemicraniectomy. -History of intracranial hemorrhage during last admission and evaluation by Dr. Espana in neurosurgery consultation with family decision against any aggressive surgical treatment. -Hx of Obesity -DNR status Further recommendations depends on clinical course. Plan of care discussed with Dr. Cortez. Result Diagram: 12/27/1852212/27/18522 Results 24hrs Laboratory Tests Test 12/26/18 22:39 12/27/18 05:23 Vancomycin Level Trough 10.0 White Blood Count 9.3 # Red Blood Count 3.61 L Hemoglobin 9.8 L Hematocrit 30.7 L Mean Corpuscular Volume 85.0 Mean Corpuscular Hemoglobin 27.1 L Mean Corpuscular Hemoglobin Concent 31.9 L Red Cell Distribution Width 15.3 H Platelet Count 338 Mean Platelet Volume 11.2 H Immature Granulocytes % 1.000 H Neutrophils % 74.0 Lymphocytes % 14.3 L Monocytes % 8.7 Eosinophils % 1.8 Basophils % 0.2 Nucleated Red Blood Cells % 0.0 Immature Granulocytes # 0.090 H Neutrophils # 6.9 Lymphocytes # 1.3 Monocytes # 0.8 Eosinophils # 0.2 Basophils # 0.0 Nucleated Red Blood Cells # 0.0 Sodium Level 140 Potassium Level 4.3 Chloride Level 103 Carbon Dioxide Level 34 H Anion Gap 3 L Blood Urea Nitrogen 21 H Creatinine 0.39 L Est Glomerular Filtrat Rate mL/min > 60 Glucose Level 171 Calcium Level 8.5 Exam/Review of Systems Exam Vitals Vital Signs Date Temp Pulse Resp B/P (MAP) Pulse Ox O2 O2 Flow FiO2 Time Delivery Rate 12/27/18 98.7 72 18 148/82 96 11:23 (104) 12/27/18 5.0 28 08:02 12/27/18 Aerosol 08:02 T Tube Intake and Output 12/26/18 12/26/18 12/27/18 1515:00 23:00 07:00 IntakeIntake Total 50 ml 1390 ml 1340 ml OutputOutput Total 450 ml 1650 ml BalanceBalance 50 ml 940 ml -310 ml Constitutional: non-verbal Head: other (Status post right craniectomy) Eyes: PERRL (Left eye), other (Dilated fixed right eye pupil) Neck: other (Tracheostomy) Respiratory: diminished breath sounds Cardiovascular: regular rate and rhythm Gastrointestinal: soft, non-tender, other (G-tube) Extremities: normal pulses Neurological: unresponsive Skin: other (Upper extremity and chest rash) Results Results 24hrs Laboratory Tests Test 12/26/18 22:39 12/27/18 05:23 Vancomycin Level Trough 10.0 White Blood Count 9.3 # Red Blood Count 3.61 L Hemoglobin 9.8 L Hematocrit 30.7 L Mean Corpuscular Volume 85.0 Mean Corpuscular Hemoglobin 27.1 L Mean Corpuscular Hemoglobin Concent 31.9 L Red Cell Distribution Width 15.3 H Platelet Count 338 Mean Platelet Volume 11.2 H Immature Granulocytes % 1.000 H Neutrophils % 74.0 Lymphocytes % 14.3 L Monocytes % 8.7 Eosinophils % 1.8 Basophils % 0.2 Nucleated Red Blood Cells % 0.0 Immature Granulocytes # 0.090 H Neutrophils # 6.9 Lymphocytes # 1.3 Monocytes # 0.8 Eosinophils # 0.2 Basophils # 0.0 Nucleated Red Blood Cells # 0.0 Sodium Level 140 Potassium Level 4.3 Chloride Level 103 Carbon Dioxide Level 34 H Anion Gap 3 L Blood Urea Nitrogen 21 H Creatinine 0.39 L Est Glomerular Filtrat Rate mL/min > 60 Glucose Level 171 Calcium Level 8.5 Medications Medication Current Medications Acetaminophen (Tylenol Tab) 650 mg PRN PRN GTB TRACH TUBE CHANGE; Start 12/25/18 at 12:30 Acetaminophen (Tylenol Tab) 650 mg Q4H PRN GTB MILD PAIN LEVEL 1-3; Start 12/25/18 at 12:30 Ascorbic Acid (Vitamin C) 500 mg DAILY GTB Last administered on 12/27/18 09:28; Admin Dose 500 MG; Start 12/26/18 at 09:00 Bisacodyl (Dulcolax Supp) 10 mg DAILY PRN [place] NEEDED; Start 12/25/18 at 12:30 Carvedilol (Coreg) 3.125 mg BID GTB Last administered on 12/27/18 09:29; Admin Dose 3.125 MG; Start 12/25/18 at 21:00 Docusate Sodium (Colace) 100 mg QHS PO Last administered on 12/26/18 22:10; Admin Dose 100 MG; Start 12/25/18 at 21:00 Acetaminophen/ Hydrocodone Bitart ([place] (5/325)) 1 tab Q6H PRN GTB MODERATE PAIN LEVEL 4-6 Last administered on 12/25/18 23:40; Admin Dose 1 TAB; Start 12/25/18 at 13:00 Lansoprazole (Prevacid) 30 mg BID GTB Last administered on 12/27/18 09:28; Admin Dose 30 MG; Start 12/25/18 at 21:00 Lisinopril (Zestril) 10 mg DAILY GTB Last administered on 12/27/18 09:29; Admin Dose 10 MG; Start 12/25/18 at 12:30 Magnesium Hydroxide (Milk Of Mag) 30 ml Q24H GTB Last administered on 12/26/18 12:17; Admin Dose 30 ML; Start 12/25/18 at 12:30 Senna (Senokot) 2 tab BID GTB Last administered on 12/27/18 09:28; Admin Dose 2 TAB; Start 12/25/18 at 21:00 Sucralfate (Carafate Susp) 1 gm QID GTB Last administered on 12/27/18 09:28; Admin Dose 1 GM; Start 12/25/18 at 13:00 Valproate Sodium (Depakene Liquid Cup) 750 mg Q8H GTB Last administered on 12/27/18 06:43; Admin Dose 750 MG; Start 12/25/18 at 13:30 Zinc Sulfate (Zinc Sulfate) 220 mg DAILY GTB Last administered on 12/27/18 09:28; Admin Dose 220 MG; Start 12/26/18 at 09:00 Multivitamins/ Minerals (Theragran-M) 1 tab DAILY GTB Last administered on 12/27/18 09:28; Admin Dose 1 TAB; Start 12/26/18 at 09:00 Cefepime HCl 50 ml @ 100 mls/hr Q12 IVPB Last administered on 12/27/18at 10:22; Admin Dose 100 MLS/HR; Start 12/25/18 at 23:00 Vancomycin HCl (Vanco Iv Per Pharmacy) VANCOMYCIN PER PHARMACY PER PROTOCOL XX ; Start 12/25/18 at 23:30 Vancomycin HCl 1.25 gm/Sodium Chloride 250 ml @ 83.333 mls/ hr Q12H IVPB Last administered on 12/27/18 11:58; Admin Dose 83.333 MLS/HR; Start 12/25/18 at 23:30 Hydroxyzine HCl (Atarax) 25 mg BID GTB Last administered on 12/27/18 09:29; Admin Dose 25 MG; Start 12/27/18 at 09:00 SETH AVENDANO Dec 27, 2018 12:03
[2018-12-27] MEDS: MAGNESIUM HYDROXIDE 30ML CUP GTB SCH (12:15)
--- NOTE | 2018-12-27 12:25 | CONS ---
Consult Date/Type/Reason Admit Date/Time Dec 25, 2018 at 00:18 Initial Consult Date 12/25/18 Type of Consult Pulmonary Requesting Provider: REGINA BUI Date/Time of Note DATE: 12/27/18 TIME: 12:24 Subjective Comfortable no respiratory distress. Objective Vital Signs Date Temp Pulse Resp B/P (MAP) Pulse Ox O2 O2 Flow FiO2 Time Delivery Rate 12/27/18 98.7 72 18 148/82 96 11:23 (104) 12/27/18 5.0 28 08:02 12/27/18 Aerosol 08:02 T Tube Intake and Output 12/26/18 12/26/18 12/27/18 1515:00 23:00 07:00 IntakeIntake Total 50 ml 1390 ml 1340 ml OutputOutput Total 450 ml 1650 ml BalanceBalance 50 ml 940 ml -310 ml Exam PHYSICAL EXAMINATION: GENERAL: Elderly-appearing gentleman, appears comfortable at rest, no acute distress. VITAL SIGNS: NECK: Trach site appears clean and intact. CARDIAC: S1, S2, no added sounds or murmurs. CHEST: Diminished air entry bilaterally. ABDOMEN: Soft, nontender. No guarding or rebound. EXTREMITIES: No cyanosis, clubbing, 1+ edema. NEUROLOGIC: Unable to assess. Vent Setting Fraction of Inspired Oxygen pe: 28 Results/Medications Result Diagram: 12/27/18 0523 12/27/18 0523 Results 24 hrs Laboratory Tests Test 12/26/18 22:39 12/27/18 05:23 Vancomycin Level Trough 10.0 White Blood Count 9.3 # Red Blood Count 3.61 L Hemoglobin 9.8 L Hematocrit 30.7 L Mean Corpuscular Volume 85.0 Mean Corpuscular Hemoglobin 27.1 L Mean Corpuscular Hemoglobin Concent 31.9 L Red Cell Distribution Width 15.3 H Platelet Count 338 Mean Platelet Volume 11.2 H Immature Granulocytes % 1.000 H Neutrophils % 74.0 Lymphocytes % 14.3 L Monocytes % 8.7 Eosinophils % 1.8 Basophils % 0.2 Nucleated Red Blood Cells % 0.0 Immature Granulocytes # 0.090 H Neutrophils # 6.9 Lymphocytes # 1.3 Monocytes # 0.8 Eosinophils # 0.2 Basophils # 0.0 Nucleated Red Blood Cells # 0.0 Sodium Level 140 Potassium Level 4.3 Chloride Level 103 Carbon Dioxide Level 34 H Anion Gap 3 L Blood Urea Nitrogen 21 H Creatinine 0.39 L Est Glomerular Filtrat Rate mL/min > 60 Glucose Level 171 Calcium Level 8.5 Medications Current Medications Acetaminophen (Tylenol Tab) 650 mg PRN PRN GTB TRACH TUBE CHANGE; Start 12/25/18 at 12:30 Acetaminophen (Tylenol Tab) 650 mg Q4H PRN GTB MILD PAIN LEVEL 1-3; Start 12/25/18 at 12:30 Ascorbic Acid (Vitamin C) 500 mg DAILY GTB Last administered on 12/27/18 09:28; Admin Dose 500 MG; Start 12/26/18 at 09:00 Bisacodyl (Dulcolax Supp) 10 mg DAILY PRN [place] NEEDED; Start 12/25/18 at 12:30 Carvedilol (Coreg) 3.125 mg BID GTB Last administered on 12/27/18 09:29; Admin Dose 3.125 MG; Start 12/25/18 at 21:00 Docusate Sodium (Colace) 100 mg QHS PO Last administered on 12/26/18 22:10; Admin Dose 100 MG; Start 12/25/18 at 21:00 Acetaminophen/ Hydrocodone Bitart ([place] (5/325)) 1 tab Q6H PRN GTB MODERATE PAIN LEVEL 4-6 Last administered on 12/25/18 23:40; Admin Dose 1 TAB; Start 12/25/18 at 13:00 Lansoprazole (Prevacid) 30 mg BID GTB Last administered on 12/27/18 09:28; Admin Dose 30 MG; Start 12/25/18 at 21:00 Lisinopril (Zestril) 10 mg DAILY GTB Last administered on 12/27/18 09:29; Admin Dose 10 MG; Start 12/25/18 at 12:30 Magnesium Hydroxide (Milk Of Mag) 30 ml Q24H GTB Last administered on 12/27/18 12:15; Admin Dose 30 ML; Start 12/25/18 at 12:30 Senna (Senokot) 2 tab BID GTB Last administered on 12/27/18 09:28; Admin Dose 2 TAB; Start 12/25/18 at 21:00 Sucralfate (Carafate Susp) 1 gm QID GTB Last administered on 12/27/18 12:15; Admin Dose 1 GM; Start 12/25/18 at 13:00 Valproate Sodium (Depakene Liquid Cup) 750 mg Q8H GTB Last administered on 12/27/18 12:15; Admin Dose 750 MG; Start 12/25/18 at 13:30 Zinc Sulfate (Zinc Sulfate) 220 mg DAILY GTB Last administered on 12/27/18 09:28; Admin Dose 220 MG; Start 12/26/18 at 09:00 Multivitamins/ Minerals (Theragran-M) 1 tab DAILY GTB Last administered on 12/27/18 09:28; Admin Dose 1 TAB; Start 12/26/18 at 09:00 Cefepime HCl 50 ml @ 100 mls/hr Q12 IVPB Last administered on 12/27/18 10:22; Admin Dose 100 MLS/HR; Start 12/25/18 at 23:00 Vancomycin HCl (Vanco Iv Per Pharmacy) VANCOMYCIN PER PHARMACY PER PROTOCOL XX ; Start 12/25/18 at 23:30 Vancomycin HCl 1.25 gm/Sodium Chloride 250 ml @ 83.333 mls/ hr Q12H IVPB Last administered on 12/27/18 11:58; Admin Dose 83.333 MLS/HR; Start 12/25/18 at 23:30 Hydroxyzine HCl (Atarax) 25 mg BID GTB Last administered on 12/27/18 09:29; Admin Dose 25 MG; Start 12/27/18 at 09:00 Assessment/Plan Hospital Course (Demo Recall) IMPRESSION 1. Severe sepsis secondary to urinary tract infection and likely healthcare- associated pneumonia. 2. 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 3. Chronic respiratory failure. 4. Dysphagia with G-tube. Plan: 1. Continued broad spectrum antibiotics. 2. Appreciate neurosurgery consultation. 3. Tube feeding as tolerated. 4. Deep venous thrombosis and GI prophylaxis. 5. Address code status with family. [facility] Dec 27, 2018 12:25
--- NOTE | 2018-12-27 13:13 | CONS ---
Assessment/Plan Assessment/Plan Hospital Course (Demo Recall) IMP: 1.Cardiomyopathy--low EF 2.CHF-systolic acute on chronic 3.resp failure chonic s/p trach 4.encephalopathy-chronic 5.HTN 6.UTI 7. h/o craniotomy Recc: -Tele -serial ecg's -Contineu coreg/zestril -Continue abx's and f/u cx data -follow volume status closely Consultation Date/Type/Reason Admit Date/Time Dec 25, 2018 at 00:18 Initial Consult Date 12/25/18 Type of Consult Cardiology Reason for Consultation cardiomyopathy Requesting Provider: REGINA BUI Date/Time of Note DATE: 12/27/18 TIME: 13:07 Exam/Review of Systems Vital Signs Vitals Vital Signs Date Temp Pulse Resp B/P (MAP) Pulse Ox O2 O2 Flow FiO2 Time Delivery Rate 12/27/18 98.7 72 18 148/82 96 11:23 (104) 12/27/18 5.0 28 08:02 12/27/18 Aerosol 08:02 T Tube Intake and Output 12/26/18 12/26/18 12/27/18 1515:00 23:00 07:00 IntakeIntake Total 50 ml 1390 ml 1340 ml OutputOutput Total 450 ml 1650 ml BalanceBalance 50 ml 940 ml -310 ml Exam Exam Review of Systems: CONSTITUTIONAL: No fevers, chills. PULMONARY: No sob CARDIOVASCULAR: No chest pain/palpitations GASTROINTESTINAL: No nausea/vomiting. GENITOURINARY: No hematuria/dysuria. MUSCULOSKELETAL: No myagias/arthalgias. PSYCHIATRIC: The patient denies depression. NEUROLOGIC: encephalopathy Constitutional: other (encephalopathic) Head: other (s/p crabiotomy) Neck: supple, jvd (9 cm water), other (trached) Respiratory: diminished breath sounds (at bases/B) Cardiovascular: regular rate and rhythm Gastrointestinal: soft, non-tender Musculoskeletal: muscle weakness (generalized) Extremities: edema (none) Neurological: unresponsive Labs Result Diagram: 12/27/1852212/27/18522 Results 24hrs Laboratory Tests Test 12/26/18 22:39 12/27/18 05:23 Vancomycin Level Trough 10.0 White Blood Count 9.3 # Red Blood Count 3.61 L Hemoglobin 9.8 L Hematocrit 30.7 L Mean Corpuscular Volume 85.0 Mean Corpuscular Hemoglobin 27.1 L Mean Corpuscular Hemoglobin Concent 31.9 L Red Cell Distribution Width 15.3 H Platelet Count 338 Mean Platelet Volume 11.2 H Immature Granulocytes % 1.000 H Neutrophils % 74.0 Lymphocytes % 14.3 L Monocytes % 8.7 Eosinophils % 1.8 Basophils % 0.2 Nucleated Red Blood Cells % 0.0 Immature Granulocytes # 0.090 H Neutrophils # 6.9 Lymphocytes # 1.3 Monocytes # 0.8 Eosinophils # 0.2 Basophils # 0.0 Nucleated Red Blood Cells # 0.0 Sodium Level 140 Potassium Level 4.3 Chloride Level 103 Carbon Dioxide Level 34 H Anion Gap 3 L Blood Urea Nitrogen 21 H Creatinine 0.39 L Est Glomerular Filtrat Rate mL/min > 60 Glucose Level 171 Calcium Level 8.5 Medications Medications Current Medications Acetaminophen (Tylenol Tab) 650 mg PRN PRN GTB TRACH TUBE CHANGE; Start 12/25/18 at 12:30 Acetaminophen (Tylenol Tab) 650 mg Q4H PRN GTB MILD PAIN LEVEL 1-3; Start 12/25/18 at 12:30 Ascorbic Acid (Vitamin C) 500 mg DAILY GTB Last administered on 12/27/18 09:28; Admin Dose 500 MG; Start 12/26/18 at 09:00 Bisacodyl (Dulcolax Supp) 10 mg DAILY PRN [place] NEEDED; Start 12/25/18 at 12:30 Carvedilol (Coreg) 3.125 mg BID GTB Last administered on 12/27/18 09:29; Admin Dose 3.125 MG; Start 12/25/18 at 21:00 Docusate Sodium (Colace) 100 mg QHS PO Last administered on 12/26/18 22:10; Admin Dose 100 MG; Start 12/25/18 at 21:00 Acetaminophen/ Hydrocodone Bitart ([place] (5/325)) 1 tab Q6H PRN GTB MODERATE PAIN LEVEL 4-6 Last administered on 12/25/18at 23:40; Admin Dose 1 TAB; Start 12/25/18 at 13:00 Lansoprazole (Prevacid) 30 mg BID GTB Last administered on 12/27/18 09:28; Admin Dose 30 MG; Start 12/25/18 at 21:00 Lisinopril (Zestril) 10 mg DAILY GTB Last administered on 12/27/18 09:29; Admin Dose 10 MG; Start 12/25/18 at 12:30 Magnesium Hydroxide (Milk Of Mag) 30 ml Q24H GTB Last administered on 12/27/18 12:15; Admin Dose 30 ML; Start 12/25/18 at 12:30 Senna (Senokot) 2 tab BID GTB Last administered on 12/27/18 09:28; Admin Dose 2 TAB; Start 12/25/18 at 21:00 Sucralfate (Carafate Susp) 1 gm QID GTB Last administered on 12/27/18 12:15; Admin Dose 1 GM; Start 12/25/18 at 13:00 Valproate Sodium (Depakene Liquid Cup) 750 mg Q8H GTB Last administered on 12/27/18 12:15; Admin Dose 750 MG; Start 12/25/18 at 13:30 Zinc Sulfate (Zinc Sulfate) 220 mg DAILY GTB Last administered on 12/27/18 09:28; Admin Dose 220 MG; Start 12/26/18 at 09:00 Multivitamins/ Minerals (Theragran-M) 1 tab DAILY GTB Last administered on 12/27/18 09:28; Admin Dose 1 TAB; Start 12/26/18 at 09:00 Cefepime HCl 50 ml @ 100 mls/hr Q12 IVPB Last administered on 12/27/18 10:22; Admin Dose 100 MLS/HR; Start 12/25/18 at 23:00 Vancomycin HCl (Vanco Iv Per Pharmacy) VANCOMYCIN PER PHARMACY PER PROTOCOL XX ; Start 12/25/18 at 23:30 Vancomycin HCl 1.25 gm/Sodium Chloride 250 ml @ 83.333 mls/ hr Q12H IVPB Last administered on 12/27/18 11:58; Admin Dose 83.333 MLS/HR; Start 12/25/18 at 23:30 Hydroxyzine HCl (Atarax) 25 mg BID GTB Last administered on 12/27/18 09:29; Admin Dose 25 MG; Start 12/27/18 at 09:00 MAE ROSALES 8, 2019 13:13
[2018-12-27 15:39] VITALS: BP 147/80; PULSE 78; RESP 18
[2018-12-27 20:15] VITALS: BP 147/77; PULSE 88; RESP 20
[2018-12-27] MEDS: FLUOCINONIDE 0.05% 15 GM CR TOP SCH (20:38)
[2018-12-27] MEDS: DOCUSATE SODIUM 100 MG CAP PO SCH (20:39)
[2018-12-27] MEDS: VANCOMYCIN HCL 1.5 GM in SOD CHLORIDE 0.9% 250 ML IVPB SCH (23:13)
[2018-12-28 00:21] VITALS: BP 139/63; PULSE 77; RESP 20
--- NOTE | 2018-12-28 00:21 | CONS ---
DATE OF ADMISSION: 12/25/2018 DATE OF CONSULTATION: 12/27/2018 TYPE OF CONSULTATION: Dermatology. REQUESTING PHYSICIAN: Nia Cortez MD HISTORY OF PRESENT ILLNESS: He was seen in room 619A on 12/27/2018 at 4:45 p.m. for evaluation of a rash that has been present for at least the last several days, although it appears to be improved bas ed on the prior photos. This gentleman has a history of a cardiomyopathy, CHF, encephalopathy and cr aniotomy of hypertension, UTI. He was admitted on 12/25/2018 for sepsis due to a UTI and was already dependent on a tracheotomy and G-tube feeding. He had been treated for bacteremia due to methicilli n-resistant Staphylococcus aureus with IV vancomycin on 11/08/2018. He has significant encephalomala alfonso and hydrocephalus and required a VPS placement. When transferred here he was having a fever with respiratory distress. At the time of admission, he was given cefepime and vancomycin. MEDICATIONS: Currently include: 1. Vancomycin. 2. Hydroxyzine. 3. Ascorbic acid. 4. Zinc sulfate. 5. Multivitamins. 6. Cefepime. 7. Carvedilol. 8. OTC Prevacid. 9. Senokot. 10. Valproate. 11. Sodium. 12. Sucralfate. 13. Aspirin. 14. Lisinopril. 15. Magnesium hydroxide. LABORATORY DATA: From 12/27/2018 have a WBC of 9.3, hemoglobin 9.8, hematocrit 30.7, platelet count of 338. His immature granulocytes are somewhat high. His eosinophils are normal. PHYSICAL EXAMINATION: GENERAL: The patient is nonresponsive, lying in the prone position. He has a normal axillary temper ature. His pulse is 78, respiratory rate 18, blood pressure is 147/80, pulse ox is 98%. He is intub ated, has a G-tube in place and is receiving IV medications. He has stockings on his lower feet ashlyn g with heel protectors. He has a prominent induration of the scalp along his right parietal. HEENT: He does not have a rash of the head and neck area but he does have eczematous patches over hi s arms, abdomen and to a very slight extent on his thighs, his lower legs could not be visualized. T wo scabies preps were taken, including from the scaly skin in between his fingers. Both were negativ e. 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 However, the rash now has taken on a more eczematous appearance and is less inflamed. I would contin ue to be sensitive to the possibility of scabies given the interdigital scaling. However, we were no t able to isolate evidence of scabies on our preps today. TREATMENT PLAN: I have advised simply for now to continue his current medications and to initiate Li dex ointment twice daily to the rash for up to 2 weeks. If the rash exacerbates or becomes more infl ammatory, then please notify us so that we can take a cutaneous biopsy for additional information. Dictated By: ALEXIA VAZQUEZ MD GN/NTS Conf#: [id number] DID#: [id number] CC: NIA CORTEZ MD;*EndCC*
[2018-12-28 04:00] VITALS: BP 118/70; PULSE 71; RESP 20
[2018-12-28] MEDS: VALPROIC ACID LIQUID CUP 250 MG/5 ML CUP GTB SCH ×3 (05:30→21:54)
[2018-12-28 07:43] VITALS: BP 113/58; PULSE 68; RESP 20
[2018-12-28] MEDS: SUCRALFATE (100 MG/ML) 10ML CUP GTB SCH ×4 (09:16→21:56)
[2018-12-28] MEDS: LISINOPRIL 10 MG TAB GTB SCH (09:16)
[2018-12-28] MEDS: LANSOPRAZOLE 30 MG CAP GTB SCH ×2 (09:16→22:02)
[2018-12-28] MEDS: MULTIVITAMINS/MINERALS TAB GTB SCH (09:16)
[2018-12-28] MEDS: ASCORBIC ACID 500 MG TAB GTB SCH (09:16)
[2018-12-28] MEDS: ZINC SULFATE 220 MG CAP GTB SCH (09:16)
[2018-12-28] MEDS: FLUOCINONIDE 0.05% 15 GM CR TOP SCH ×2 (09:17→22:07)
[2018-12-28] MEDS: hydrOXYzine HCL 25 MG TAB GTB SCH ×2 (09:17→22:02)
[2018-12-28] MEDS: CEFEPIME 2GM/50 ML (PMX) 50 ML IVPB SCH ×2 (09:22→22:02)
[2018-12-28] MEDS: SENNA TAB GTB SCH ×2 (09:22→21:57)
--- NOTE | 2018-12-28 11:26 | CONS ---
Consultation Date/Type/Reason Admit Date/Time Dec 25, 2018 at 00:18 Initial Consult Date 12/25/18 Type of Consult Pulmonary Patient's condition is stable. Has remained hemodynamically stable. General exam; middle-aged male, morbidly obese, on T-piece via tracheostomy, currently in no distress. Patient remains noncommunicative and unresponsive. H EENT exam; supple neck, no JVD. No lymphadenopathy. Midline trachea. No thyromegaly. Tracheostomy in place. Attached to T-piece. Patient has fair dentition. There is a right parietal skull depression. Chest exam; clear to auscultation. S1-S2 audible, no murmurs. Regular rhythm. Abdomen exam; soft, no organomegaly. G-tube in place. Bowel sounds are audible. Extremity exam; no peripheral edema clubbing. ST[employer] PATCH [employer]WYER exam; patient remains unresponsive. Assessment and recommendations; 1. Patient with history of chronic respiratory failure maintained on T-piece as well as history of prior intracranial hemorrhage with right parietal craniotomy admitted for sepsis from UTI and pneumonia. Currently on appropriate antimicrobial regimen. 2. History of stable seizure disorder. 3. History of hydrocephalus status post [employer] shunt placement. 4. Mild CHF. Continue current supportive care. Antibiotics per ID recommendations. Requesting Provider: REGINA BUI Date/Time of Note DATE: 12/28/18 TIME: 11:24 Exam/Review of Systems Exam Vitals Vital Signs Date Temp Pulse Resp B/P (MAP) Pulse Ox O2 O2 Flow FiO2 Time Delivery Rate 12/28/18 98.5 68 20 113/58 97 07:43 (76) 12/28/18 Aerosol 10.0 40 04:15 T Tube Intake and Output 12/27/18 12/27/18 12/28/18 1515:00 23:00 07:00 IntakeIntake Total 1040 ml 1020 ml OutputOutput Total 550 ml 1050 ml BalanceBalance 490 ml -30 ml Results Result Diagram: 12/27/18 0512/27/18 05 Medications Medication Current Medications Acetaminophen (Tylenol Tab) 650 mg PRN PRN GTB TRACH TUBE CHANGE; Start 12/25/18 at 12:30 Acetaminophen (Tylenol Tab) 650 mg Q4H PRN GTB MILD PAIN LEVEL 1-3; Start 12/25/18 at 12:30 Ascorbic Acid (Vitamin C) 500 mg DAILY GTB Last administered on 12/28/18 09:16; Admin Dose 500 MG; Start 12/26/18 at 09:00 Bisacodyl (Dulcolax Supp) 10 mg DAILY PRN [place] NEEDED; Start 12/25/18 at 12:30 Carvedilol (Coreg) 3.125 mg BID GTB Last administered on 12/28/18 09:17; Admin Dose 3.125 MG; Start 12/25/18 at 21:00 Docusate Sodium (Colace) 100 mg QHS PO Last administered on 12/27/18 20:39; Adm in Dose 100 MG; Start 12/25/18 at 21:00 Acetaminophen/ Hydrocodone Bitart ([place] (5/325)) 1 tab Q6H PRN GTB MODERATE PAIN LEVEL 4-6 Last administered on 12/25/18 23:40; Admin Dose 1 TAB; Start 12/25/18 at 13:00 Lansoprazole (Prevacid) 30 mg BID GTB Last administered on 12/28/18 09:16; Admin Dose 30 MG; Start 12/25/18 at 21:00 Lisinopril (Zestril) 10 mg DAILY GTB Last administered on 12/28/18 09:16; Admin Dose 10 MG; Start 12/25/18 at 12:30 Magnesium Hydroxide (Milk Of Mag) 30 ml Q24H GTB Last administered on 12/27/18 12:15; Admin Dose 30 ML; Start 12/25/18 at 12:30 Senna (Senokot) 2 tab BID GTB Last administered on 12/28/18 09:22; Admin Dose 2 TAB; Start 12/25/18 at 21:00 Sucralfate (Carafate Susp) 1 gm QID GTB Last administered on 12/28/18 09:16; Admin Dose 1 GM; Start 12/25/18 at 13:00 Valproate Sodium (Depakene Liquid Cup) 750 mg Q8H GTB Last administered on 12/28/18 05:30; Admin Dose 750 MG; Start 12/25/18 at 13:30 Zinc Sulfate (Zinc Sulfate) 220 mg DAILY GTB Last administered on 12/28/18 09:16; Admin Dose 220 MG; Start 12/26/18 at 09:00 Multivitamins/ Minerals (Theragran-M) 1 tab DAILY GTB Last administered on 12/28/18 09:16; Admin Dose 1 TAB; Start 12/26/18 at 09:00 Cefepime HCl 50 ml @ 100 mls/hr Q12 IVPB Last administered on 12/28/18 09:22; Admin Dose 100 MLS/HR; Start 12/25/18 at 23:00 Vancomycin HCl (Vanco Iv Per Pharmacy) VANCOMYCIN PER PHARMACY PER PROTOCOL XX ; Start 12/25/18 at 23:30 Hydroxyzine HCl (Atarax) 25 mg BID GTB Last administered on 12/28/18 09:17; Adm in Dose 25 MG; Start 12/27/18 at 09:00 Vancomycin HCl 1.5 gm/Sodium Chloride 250 ml @ 83.333 mls/ hr Q12H IVPB Last administered on 12/27/18 23:13; Admin Dose 83.333 MLS/HR; Start 12/27/18 at 23:00 Fluocinonide (Lidex 0.05% Cr) 1 applic BID TOP Last administered on 12/28/18 09:17; Admin Dose 1 APPLIC; Start 12/27/18 at 21:00; Stop 01/10/19 at 20:59 MER CHRIS Dec 28, 2018 11:26
[2018-12-28 11:32] VITALS: BP 89/51; PULSE 78; RESP 20
[2018-12-28] MEDS: VANCOMYCIN HCL 1.5 GM in SOD CHLORIDE 0.9% 250 ML IVPB SCH (12:08)
--- NOTE | 2018-12-28 12:17 | CONS ---
Consult Date/Type/Reason Admit Date/Time Dec 25, 2018 at 00:18 Initial Consult Date 12/25/18 Requesting Provider: REGINA BUI Date/Time of Note DATE: 12/28/18 TIME: 12:15 Subjective No acute events - pt comfortable - BP well controlled - HR well maintained now. ROS: No fever, no chills, no nausea, no vomiting, no diarrhea/constipation - per nurse, trach care - comfortable Objective Vitals Vital Signs Date Temp Pulse Resp B/P (MAP) Pulse Ox O2 O2 Flow FiO2 Time Delivery Rate 12/28/18 99.1 78 20 89/51 (64) 96 11:32 12/28/18 Aerosol 10.0 40 04:15 T Tube Intake and Output 12/27/18 12/27/18 12/28/18 1515:00 23:00 07:00 IntakeIntake Total 1040 ml 1020 ml OutputOutput Total 550 ml 1050 ml BalanceBalance 490 ml -30 ml Exam General: WN/WD/NAD, AOx 0 crani/CVA HEENT: Unicetric/atraumatic/EOMI (does not follow commands) NECK: trach Lymph: no lymphadenopathy HEART: regular with no S3, II/ systolic murmur at apex LUNGS: Coarse sounds ABD: soft, NT, ND, +BS : Intact Neuro: non focal SKIN: chronic changes EXT: trace edema Results/Medications Result Diagram: 12/27/1852212/27/18522 Home Meds Reported Medications Lisinopril* (Lisinopril*) 10 Mg Tablet, 10 MG GTB DAILY, #30 TAB HOLD FOR SBP<110 OR HR<60 12/25/18 Docusate Sodium* (Colace*) 100 Mg Capsule, 100 MG GTB QHS, #30 CAP 12/25/18 Zinc Sulfate* (Zinc Sulfate*) 220 Mg Tablet, 220 MG GTB DAILY, TAB 12/25/18 Ascorbic Acid (Vitamin C) 500 Mg Tab, 500 MG GTB DAILY, TAB 12/25/18 Multivitamin with Minerals (Multivitamins with Minerals) 1 Each Tablet, 1 EACH GTB DAILY, TAB 12/25/18 Insulin Lispro (Humalog) 100 Unit/1 Ml Cartridge, 0 SQ SLIDING SCALE, EA IF BS 71-150=0, 151-200=1 UNIT,201-250=2 UNITS,251-300=3 UNITS,301-350=4 UNITS,351-400=5 UNITS,>400=6 UNITS AND CALL MD. 12/25/18 Na Phos,M-B/Na Phos,Di-Ba (Fleet Enema Extra) Unknown Strength Enema, 1 APPLIC RC Q2D, ENEMA 06/30/18 Bisacodyl* (Bisacodyl*) 10 Mg Supp, 10 MG WA DAILY PRN for NEEDED, SUPP 06/30/18 Magnesium Hydroxide* (Milk Of Magnesia*) 400 Mg/5 Ml Oral.susp, 30 ML GTB Q24H for CONSTIPATION, ML 06/30/18 Sennosides* (Senna Lax*) 8.6 Mg Tablet, 2 TAB GTB BID, TAB 06/30/18 Insulin NPH Human Isophane (Humulin N) 100 Unit/1 Ml Vial, 28 UNIT SQ Q8H, VIAL 06/30/18 Hydrocodone/Acetaminophen ([place] 5-325 Tablet) 1 Each Tablet, 1 EACH GTB Q6H, TAB NEEDED FOR PAIN LEVEL 7-10 06/30/18 Acetaminophen* (Tylenol*) 500 Mg Tab, 1000 MG GTB Q4H PRN for PAIN 4-11/29, TAB 06/30/18 Acetaminophen* (Tylenol*) 325 Mg Tablet, 650 MG GTB PRN PRN for TRACH TUBE CHANGE, TAB AND PAIN MANAGEMENT 06/30/18 Acetaminophen* (Tylenol*) 325 Mg Tablet, 650 MG GTB Q4H PRN for MILD PAIN LEVEL 1-3, TAB AND FEVER 100 AND ABOVE 06/30/18 Amino Acids/Protein Hydrolys (PRO-STAT LIQUID) 30 Ml Liquid.pkt, 30 ML GTB DAILY SUGAR FREE 06/30/18 Carvedilol* (Carvedilol*) 3.125 Mg Tablet, 3.125 MG GTB BID, #60 TAB HOLD IF SBP<110 OR HR<60 06/30/18 Valproic Acid* (Valproic Acid* Liq) 250 Mg/5 Ml Syrup, 15 ML GTB Q8H, ML 06/30/18 Sucralfate* (Carafate*) 1 Gm/10 Ml Susp, 1 GM GTB QID, EA 06/30/18 Lansoprazole* (Lansoprazole*) 30 Mg Capsule.dr, 30 MG GTB BID, CAP 06/30/18 Lactobacillus Acidophilus (Acidophilus Lactobacillus) 1 Each Capsule, 1 EACH GTB DAILY, CAP 06/30/18 Discontinued Reported Medications Acetylcysteine* (Mucomyst*) 4 Ml Soln, 3 ML NEB BID, EA 06/30/18 Insulin Aspart* (Novolog Insulin Pen*) 100 Unit/Ml Soln, 0 SC .SLIDING SCALE AC, EA IF BS 0-120=0 UNITS,120-150=0 UNIT, 151-200=1 UNIT, 201-250=2 UNIT, 251-300=3 UNIT, 301-350=4 UNIT, 351-400=5 UNIT, ABOVE 400=6 UNIT AND CALL MD. 06/30/18 Glucagon HCl (Glucagon HCl) 1 Mg Vial, 1 MG IJ NEEDED, VIAL IF BS BELOW 60 06/30/18 Cran/Vitc/Mannose/Inulin/Brom (Uti-Stat Liquid) 3,875 Mg/30 Ml Liquid, 30 ML GTB DAILY 06/30/18 Hydralazine Hcl* (Hydralazine Hcl*) 25 Mg Tab, 25 MG GTB Q6H, #60 TAB 06/30/18 Furosemide* (Lasix* Liq) 40 Mg/5 Ml Cup, 20 MG GTB DAILY, EA 06/30/18 Atorvastatin* (Atorvastatin*) 80 Mg Tablet, 80 MG GTB QHS, #30 TAB 06/30/18 Aspirin* (Aspirin* EC) 81 Mg Tablet., 162 MG GTB DAILY, TAB 06/30/18 Lisinopril* (Lisinopril*) 5 Mg Tablet, 5 MG GTB DAILY, #30 TAB 06/30/18 Medications Current Medications Acetaminophen (Tylenol Tab) 650 mg PRN PRN GTB TRACH TUBE CHANGE; Start 12/25/18 at 12:30 Acetaminophen (Tylenol Tab) 650 mg Q4H PRN GTB MILD PAIN LEVEL 1-3; Start 12/25/18 at 12:30 Ascorbic Acid (Vitamin C) 500 mg DAILY GTB Last administered on 12/28/18at 09:16; Admin Dose 500 MG; Start 12/26/18 at 09:00 Bisacodyl (Dulcolax Supp) 10 mg DAILY PRN [place] NEEDED; Start 12/25/18 at 12:30 Carvedilol (Coreg) 3.125 mg BID GTB Last administered on 12/28/18 09:17; Admin Dose 3.125 MG; Start 12/25/18 at 21:00 Docusate Sodium (Colace) 100 mg QHS PO Last administered on 12/27/18 20:39; Admin Dose 100 MG; Start 12/25/18 at 21:00 Acetaminophen/ Hydrocodone Bitart ([place] (5/325)) 1 tab Q6H PRN GTB MODERATE PAIN LEVEL 4-6 Last administered on 12/25/18 23:40; Admin Dose 1 TAB; Start 12/25/18 at 13:00 Lansoprazole (Prevacid) 30 mg BID GTB Last administered on 12/28/18 09:16; Admin Dose 30 MG; Start 12/25/18 at 21:00 Lisinopril (Zestril) 10 mg DAILY GTB Last administered on 12/28/18 09:16; Admin Dose 10 MG; Start 12/25/18 at 12:30 Magnesium Hydroxide (Milk Of Mag) 30 ml Q24H GTB Last administered on 12/27/18 12:15; Admin Dose 30 ML; Start 12/25/18 at 12:30 Senna (Senokot) 2 tab BID GTB Last administered on 12/28/18 09:22; Admin Dose 2 TAB; Start 12/25/18 at 21:00 Sucralfate (Carafate Susp) 1 gm QID GTB Last administered on 12/28/18 09:16; Admin Dose 1 GM; Start 12/25/18 at 13:00 Valproate Sodium (Depakene Liquid Cup) 750 mg Q8H GTB Last administered on 12/28/18 05:30; Admin Dose 750 MG; Start 12/25/18 at 13:30 Zinc Sulfate (Zinc Sulfate) 220 mg DAILY GTB Last administered on 12/28/18 09:16; Admin Dose 220 MG; Start 12/26/18 at 09:00 Multivitamins/ Minerals (Theragran-M) 1 tab DAILY GTB Last administered on 12/28/18 09:16; Admin Dose 1 TAB; Start 12/26/18 at 09:00 Cefepime HCl 50 ml @ 100 mls/hr Q12 IVPB Last administered on 12/28/18 09:22; Admin Dose 100 MLS/HR; Start 12/25/18 at 23:00 Vancomycin HCl (Vanco Iv Per Pharmacy) VANCOMYCIN PER PHARMACY PER PROTOCOL XX ; Start 12/25/18 at 23:30 Hydroxyzine HCl (Atarax) 25 mg BID GTB Last administered on 12/28/18 09:17; Admin Dose 25 MG; Start 12/27/18 at 09:00 Vancomycin HCl 1.5 gm/Sodium Chloride 250 ml @ 83.333 mls/ hr Q12H IVPB Last administered on 12/28/18 12:08; Admin Dose 83.333 MLS/HR; Start 12/27/18 at 23:00 Fluocinonide (Lidex 0.05% Cr) 1 applic BID TOP Last administered on 12/28/18 09:17; Admin Dose 1 APPLIC; Start 12/27/18 at 21:00; Stop 01/10/19 at 20:59 Assessment/Plan Hospital Course (Demo Recall) 1. Tachycardia. The patient's tachycardia is sinus tachycardia in nature. Continue to monitor for clinical heart rate decline. Right bundle branch block, likely chronic finding. No intervention is needed. BETTER HR now. 2. Cardiomyopathy. The patient has known cardiomyopathy, ischemic, ejection fraction 30% to 35%. Continue to keep the patient euvolemic. No escalation of care planned. 3. 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 The patient is not a candidate for anticoagulation with his intraventricular hemorrhage, now rate controlled. Continue on a small dose of a beta scooby. Rate controlled. 4. Febrile illness. Continue antibiotics. Primary team follows. On anti-Bx 5. H/o CVA/craniotomy - skin care in place. KYLEIGH MENDENHALL MD Dec 28, 2018 12:17
[2018-12-28] MEDS: MAGNESIUM HYDROXIDE 30ML CUP GTB SCH (13:37)
[2018-12-28 15:15] VITALS: BP 144/67; PULSE 69; RESP 20
--- NOTE | 2018-12-28 16:09 | PN ---
Date/Time of Note Date/Time of Note DATE: 12/28/18 TIME: 16:08 Assessment/Plan VTE Prophylaxis Risk score ([place] [facility] [place] risk: 5 SCD applied (from [facility] [place]): Yes Pharmacological prophylaxis: NA/contraindicated Pharm contraindication: bleeding Lines/Catheters IV Catheter Type (from [facility]): Saline Lock Urinary Cath still in place: Yes Reason Cath still needed: urinary retention Assessment/Plan Hospital Course Patient had an episode of arrhythmia currently in sinus rhythm, will check magnesium and potassium continue to follow-up cardiology recommendation continue telemetry monitoring, patient is continues on cool aerosol mist via tracheostomy, patient continued on antibiotics for bacteremia and UTI. Assessment/Plan -Sepsis secondary to bacteremia and urinary tract infection. Dr. Kiran is following in infection disease consultation. -Chronic respiratory failure with tracheostomy, patient is currently on T-tube. -Generalized rash, Dr. Bassett is following in dermatology consultation. Preliminary scabies scrape is negative, continue Lidex. -Coronary artery disease, status post PTCA with stent placement -Ischemic cardiomyopathy -Diabetes -Dysphagia with G-tube -Dyslipidemia -History of right hemicraniectomy. -History of intracranial hemorrhage during last admission and evaluation by Dr. Espana in neurosurgery consultation with family decision against any aggressive surgical treatment. -Hx of Obesity -DNR status Further recommendations depends on clinical course. Plan of care discussed with Dr. Cortez. Result Diagram: 12/27/18 0523 12/28/18 1502 Results 24hrs Laboratory Tests Test 12/28/18 15:02 Sodium Level 140 Potassium Level 4.3 Chloride Level 102 Carbon Dioxide Level 35 H Anion Gap 3 L Blood Urea Nitrogen 19 Creatinine 0.49 L Est Glomerular Filtrat Rate mL/min > 60 Glucose Level 176 Calcium Level 8.7 Magnesium Level 2.2 Exam/Review of Systems Exam Vitals Vital Signs Date Temp Pulse Resp B/P (MAP) Pulse Ox O2 O2 Flow FiO2 Time Delivery Rate 12/28/18 98.9 69 20 144/67 90 15:15 (92) 12/28/18 Aerosol 10.0 40 04:15 T Tube Intake and Output 12/27/18 12/27/18 12/28/18 1515:00 23:00 07:00 IntakeIntake Total 1040 ml 1020 ml OutputOutput Total 550 ml 1050 ml BalanceBalance 490 ml -30 ml Exam Constitutional: non-verbal Head: other (Status post right craniectomy) Eyes: PERRL (Left eye), other (Dilated fixed right eye pupil) Neck: other (Tracheostomy) Respiratory: diminished breath sounds Cardiovascular: regular rate and rhythm Gastrointestinal: soft, non-tender, other (G-tube) Extremities: normal pulses Neurological: unresponsive Skin: other (Upper extremity and chest rash) Results Results 24hrs Laboratory Tests Test 12/28/18 15:02 Sodium Level 140 Potassium Level 4.3 Chloride Level 102 Carbon Dioxide Level 35 H Anion Gap 3 L Blood Urea Nitrogen 19 Creatinine 0.49 L Est Glomerular Filtrat Rate mL/min > 60 Glucose Level 176 Calcium Level 8.7 Magnesium Level 2.2 Medications Medication Current Medications Acetaminophen (Tylenol Tab) 650 mg PRN PRN GTB TRACH TUBE CHANGE; Start 12/25/18 at 12:30 Acetaminophen (Tylenol Tab) 650 mg Q4H PRN GTB MILD PAIN LEVEL 1-3; Start 12/25/18 at 12:30 Ascorbic Acid (Vitamin C) 500 mg DAILY GTB Last administered on 12/28/18at 09:16; Admin Dose 500 MG; Start 12/26/18 at 09:00 Bisacodyl (Dulcolax Supp) 10 mg DAILY PRN [place] NEEDED; Start 12/25/18 at 12:30 Carvedilol (Coreg) 3.125 mg BID GTB Last administered on 12/28/18 09:17; Admin Dose 3.125 MG; Start 12/25/18 at 21:00 Docusate Sodium (Colace) 100 mg QHS PO Last administered on 12/27/18at 20:39; Admin Dose 100 MG; Start 12/25/18 at 21:00 Acetaminophen/ Hydrocodone Bitart ([place] (5/325)) 1 tab Q6H PRN GTB MODERATE PAIN LEVEL 4-6 Last administered on 12/25/18at 23:40; Admin Dose 1 TAB; Start 12/25/18 at 13:00 Lansoprazole (Prevacid) 30 mg BID GTB Last administered on 12/28/18 09:16; Admin Dose 30 MG; Start 12/25/18 at 21:00 Lisinopril (Zestril) 10 mg DAILY GTB Last administered on 12/28/18 09:16; Admin Dose 10 MG; Start 12/25/18 at 12:30 Magnesium Hydroxide (Milk Of Mag) 30 ml Q24H GTB Last administered on 12/28/18 13:37; Admin Dose 30 ML; Start 12/25/18 at 12:30 Senna (Senokot) 2 tab BID GTB Last administered on 12/28/18 09:22; Admin Dose 2 TAB; Start 12/25/18 at 21:00 Sucralfate (Carafate Susp) 1 gm QID GTB Last administered on 12/28/18 13:37; Admin Dose 1 GM; Start 12/25/18 at 13:00 Valproate Sodium (Depakene Liquid Cup) 750 mg Q8H GTB Last administered on 12/28/18 13:42; Admin Dose 750 MG; Start 12/25/18 at 13:30 Zinc Sulfate (Zinc Sulfate) 220 mg DAILY GTB Last administered on 12/28/18 09:16; Admin Dose 220 MG; Start 12/26/18 at 09:00 Multivitamins/ Minerals (Theragran-M) 1 tab DAILY GTB Last administered on 12/28/18 09:16; Admin Dose 1 TAB; Start 12/26/18 at 09:00 Cefepime HCl 50 ml @ 100 mls/hr Q12 IVPB Last administered on 12/28/18 09:22; Admin Dose 100 MLS/HR; Start 12/25/18 at 23:00 Vancomycin HCl (Vanco Iv Per Pharmacy) VANCOMYCIN PER PHARMACY PER PROTOCOL XX ; Start 12/25/18 at 23:30 Hydroxyzine HCl (Atarax) 25 mg BID GTB Last administered on 12/28/18 09:17; Admin Dose 25 MG; Start 12/27/18 at 09:00 Vancomycin HCl 1.5 gm/Sodium Chloride 250 ml @ 83.333 mls/ hr Q12H IVPB Last administered on 12/28/18 12:08; Admin Dose 83.333 MLS/HR; Start 12/27/18 at 23:00 Fluocinonide (Lidex 0.05% Cr) 1 applic BID TOP Last administered on 12/28/18 09:17; Admin Dose 1 APPLIC; Start 12/27/18 at 21:00; Stop 01/10/19 at 20:59 Miscellaneous Information (*Rx Drug Level Order Reminder*) VANCO TROUGH @ 2,200 ON... 2200 ONCE XX ; Start 12/29/18 at 22:00; Stop 12/29/18 at 22:01 SETH AVENDANO Dec 28, 2018 16:09
--- NOTE | 2018-12-28 16:54 | CONS ---
Assessment/Plan Assessment/Plan Hospital Course (Demo Recall) assessment/impression - sepsis due to UTI - UTI due to proteus - contamination of blood cultures by coag negative Staph - h/o bacteremia due to MRSA in 10/2018 - h/o possible HCAP vs. 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; and hydrocephalus requiring [facility]PS placement at [facility] - chronic hypoxic resp failure - h/o tracheostomy placement - dysphagia - h/o G tube placement recommendations - pending results: tracheal aspirate for culture (pseudomonas and another gram negative bacteria) - continue IV cefepime (12/25/2018-) for UTI and possible pneumonia - d/c IV vanc (12/25/2018-12/28/2018) management d/w Pt's RN Consultation Date/Type/Reason Admit Date/Time Dec 25, 2018 at 00:18 Initial Consult Date 12/25/18 Type of Consult ID Requesting Provider: REGINA BUI Date/Time of Note DATE: 12/28/18 TIME: 16:49 24 HR Interval Summary Subjective hx not possible: pt non-verbal Exam/Review of Systems Exam Vitals Vital Signs Date Temp Pulse Resp B/P (MAP) Pulse Ox O2 O2 Flow FiO2 Time Delivery Rate 12/28/18 98 10.0 40 16:20 12/28/18 98.9 69 20 144/67 15:15 (92) 12/28/18 Aerosol 04:15 T Tube Intake and Output 12/27/18 12/27/18 12/28/18 1515:00 23:00 07:00 IntakeIntake Total 1040 ml 1020 ml OutputOutput Total 550 ml 1050 ml BalanceBalance 490 ml -30 ml Constitutional: non-verbal Psych: confusion Head: other (h/o craniectomy) Eyes: nl lids ENMT: nl external ears & nose, mucosa pink and moist Neck: other (trach) Respiratory: crackles/rales Cardiovascular: regular rate and rhythm, nl pulses Gastrointestinal: soft, non-tender, other (GT); No distended, No tender Genitourinary - Male: other (FC) Musculoskeletal: other (contractured UEs) Extremities: No edema Neurological: unresponsive Skin: rash or lesions (unstageable sacral decub) Results Result Diagram: 12/27/18 0523 12/28/18 1502 Results 24hrs Laboratory Tests Test 12/28/18 15:02 Sodium Level 140 Potassium Level 4.3 Chloride Level 102 Carbon Dioxide Level 35 H Anion Gap 3 L Blood Urea Nitrogen 19 Creatinine 0.49 L Est Glomerular Filtrat Rate mL/min > 60 Glucose Level 176 Calcium Level 8.7 Magnesium Level 2.2 Medications Medication Current Medications Acetaminophen (Tylenol Tab) 650 mg PRN PRN GTB TRACH TUBE CHANGE; Start 12/25/18 at 12:30 Acetaminophen (Tylenol Tab) 650 mg Q4H PRN GTB MILD PAIN LEVEL 1-3; Start 12/25/18 at 12:30 Ascorbic Acid (Vitamin C) 500 mg DAILY GTB Last administered on 12/28/18at 09:16; Admin Dose 500 MG; Start 12/26/18 at 09:00 Bisacodyl (Dulcolax Supp) [address] NEEDED; Start 12/25/18 at 12:30 Carvedilol (Coreg) 3.125 mg BID GTB Last administered on 12/28/18at 09:17; Admin Dose 3.125 MG; Start 12/25/18 at 21:00 Docusate Sodium (Colace) 100 mg QHS PO Last administered on 12/27/18at 20:39; Admin Dose 100 MG; Start 12/25/18 at 21:00 Acetaminophen/ Hydrocodone Bitart ([place] (5/325)) 1 tab Q6H PRN GTB MODERATE PAIN LEVEL 4-6 Last administered on 12/25/18at 23:40; Admin Dose 1 TAB; Start 12/25/18 at 13:00 Lansoprazole (Prevacid) 30 mg BID GTB Last administered on 12/28/18at 09:16; Admin Dose 30 MG; Start 12/25/18 at 21:00 Lisinopril (Zestril) 10 mg DAILY GTB Last administered on 12/28/18 09:16; Admin Dose 10 MG; Start 12/25/18 at 12:30 Magnesium Hydroxide (Milk Of Mag) 30 ml Q24H GTB Last administered on 12/28/18 13:37; Admin Dose 30 ML; Start 12/25/18 at 12:30 Senna (Senokot) 2 tab BID GTB Last administered on 12/28/18 09:22; Admin Dose 2 TAB; Start 12/25/18 at 21:00 Sucralfate (Carafate Susp) 1 gm QID GTB Last administered on 12/28/18 16:40; Admin Dose 1 GM; Start 12/25/18 at 13:00 Valproate Sodium (Depakene Liquid Cup) 750 mg Q8H GTB Last administered on 12/28/18 13:42; Admin Dose 750 MG; Start 12/25/18 at 13:30 Zinc Sulfate (Zinc Sulfate) 220 mg DAILY GTB Last administered on 12/28/18 09:16; Admin Dose 220 MG; Start 12/26/18 at 09:00 Multivitamins/ Minerals (Theragran-M) 1 tab DAILY GTB Last administered on 12/28/18 09:16; Admin Dose 1 TAB; Start 12/26/18 at 09:00 Cefepime HCl 50 ml @ 100 mls/hr Q12 IVPB Last administered on 12/28/18 09:22; Admin Dose 100 MLS/HR; Start 12/25/18 at 23:00 Vancomycin HCl (Vanco Iv Per Pharmacy) VANCOMYCIN PER PHARMACY PER PROTOCOL XX ; Start 12/25/18 at 23:30 Hydroxyzine HCl (Atarax) 25 mg BID GTB Last administered on 12/28/18 09:17; Admin Dose 25 MG; Start 12/27/18 at 09:00 Vancomycin HCl 1.5 gm/Sodium Chloride 250 ml @ 83.333 mls/ hr Q12H IVPB Last administered on 12/28/18 12:08; Admin Dose 83.333 MLS/HR; Start 12/27/18 at 23:00 Fluocinonide (Lidex 0.05% Cr) 1 applic BID TOP Last administered on 12/28/18 09:17; Admin Dose 1 APPLIC; Start 12/27/18 at 21:00; Stop 01/10/19 at 20:59 Miscellaneous Information (*Rx Drug Level Order Reminder*) VANCO TROUGH @ 2,200 ON... 2200 ONCE XX ; Start 12/29/18 at 22:00; Stop 12/29/18 at 22:01 APRIL JORDAN M.D. Dec 28, 2018 16:54
[2018-12-28 20:00] VITALS: BP 98/55; PULSE 73; RESP 18
[2018-12-28] MEDS: DOCUSATE SODIUM 100 MG CAP PO SCH (21:57)
[2018-12-29] VITALS: BP 141/67; PULSE 64; RESP 20
[2018-12-29 04:00] VITALS: BP 159/74; PULSE 67; RESP 20
[2018-12-29] MEDS: VALPROIC ACID LIQUID CUP 250 MG/5 ML CUP GTB SCH ×3 (05:51→20:53)
[2018-12-29 07:16] VITALS: BP 121/67; PULSE 92; RESP 18
[2018-12-29] MEDS: SUCRALFATE (100 MG/ML) 10ML CUP GTB SCH ×4 (08:39→20:53)
[2018-12-29] MEDS: ASCORBIC ACID 500 MG TAB GTB SCH (08:40)
[2018-12-29] MEDS: SENNA TAB GTB SCH ×2 (08:40→20:53)
[2018-12-29] MEDS: LISINOPRIL 10 MG TAB GTB SCH (08:40)
[2018-12-29] MEDS: LANSOPRAZOLE 30 MG CAP GTB SCH ×2 (08:40→20:53)
[2018-12-29] MEDS: hydrOXYzine HCL 25 MG TAB GTB SCH ×2 (08:41→20:53)
[2018-12-29] MEDS: MULTIVITAMINS/MINERALS TAB GTB SCH (08:41)
[2018-12-29] MEDS: FLUOCINONIDE 0.05% 15 GM CR TOP SCH ×2 (08:41→20:54)
[2018-12-29] MEDS: ZINC SULFATE 220 MG CAP GTB SCH (08:41)
[2018-12-29] MEDS: CEFEPIME 2GM/50 ML (PMX) 50 ML IVPB SCH ×2 (08:41→21:08)
--- NOTE | 2018-12-29 11:28 | CONS ---
Consult Date/Type/Reason Admit Date/Time Dec 25, 2018 at 00:18 Initial Consult Date 12/25/18 Type of Consult Pulmonary Requesting Provider: REGINA BUI Date/Time of Note DATE: 12/29/18 TIME: 11:28 Subjective Patient comfortable this morning no respiratory distress Objective Vital Signs Date Temp Pulse Resp B/P (MAP) Pulse Ox O2 O2 Flow FiO2 Time Delivery Rate 12/29/18 99.9 92 18 121/67 96 Trach 07:16 (85) Collar 12/29/18 5.0 28 05:47 Intake and Output 12/28/18 12/28/18 12/29/18 1515:00 23:00 07:00 IntakeIntake Total 970 ml OutputOutput Total 1000 ml 1900 ml BalanceBalance -1000 ml -930 ml Exam PHYSICAL EXAMINATION: GENERAL: Elderly-appearing gentleman, appears comfortable at rest, no acute distress. VITAL SIGNS: NECK: Trach site appears clean and intact. CARDIAC: S1, S2, no added sounds or murmurs. CHEST: Diminished air entry bilaterally. ABDOMEN: Soft, nontender. No guarding or rebound. EXTREMITIES: No cyanosis, clubbing, 1+ edema. NEUROLOGIC: Unable to assess. Vent Setting Fraction of Inspired Oxygen pe: 28 Results/Medications Result Diagram: 12/27/18 0523 12/28/18 1502 Results 24 hrs Laboratory Tests Test 12/28/18 15:02 Sodium Level 140 Potassium Level 4.3 Chloride Level 102 Carbon Dioxide Level 35 H Anion Gap 3 L Blood Urea Nitrogen 19 Creatinine 0.49 L Est Glomerular Filtrat Rate mL/min > 60 Glucose Level 176 Calcium Level 8.7 Magnesium Level 2.2 Medications Current Medications Acetaminophen (Tylenol Tab) 650 mg PRN PRN GTB TRACH TUBE CHANGE; Start 12/25/18 at 12:30 Acetaminophen (Tylenol Tab) 650 mg Q4H PRN GTB MILD PAIN LEVEL 1-3; Start 12/25/18 at 12:30 Ascorbic Acid (Vitamin C) 500 mg DAILY GTB Last administered on 12/29/18at 08:4 0; Admin Dose 500 MG; Start 12/26/18 at 09:00 Bisacodyl (Dulcolax Supp) 10 mg DAILY PRN [place] NEEDED; Start 12/25/18 at 12:30 Carvedilol (Coreg) 3.125 mg BID GTB Last administered on 12/29/18 08:40; Admin Dose 3.125 MG; Start 12/25/18 at 21:00 Docusate Sodium (Colace) 100 mg QHS PO Last administered on 12/28/18 21:57; Admin Dose 100 MG; Start 12/25/18 at 21:00 Acetaminophen/ Hydrocodone Bitart ([place] (5/325)) 1 tab Q6H PRN GTB MODERATE PAIN LEVEL 4-6 Last administered on 12/25/18 23:40; Admin Dose 1 TAB; Start 12/25/18 at 13:00 Lansoprazole (Prevacid) 30 mg BID GTB Last administered on 12/29/18 08:40; Admin Dose 30 MG; Start 12/25/18 at 21:00 Lisinopril (Zestril) 10 mg DAILY GTB Last administered on 12/29/18 08:40; Admin Dose 10 MG; Start 12/25/18 at 12:30 Magnesium Hydroxide (Milk Of Mag) 30 ml Q24H GTB Last administered on 12/28/18 13:37; Admin Dose 30 ML; Start 12/25/18 at 12:30 Senna (Senokot) 2 tab BID GTB Last administered on 12/29/18 08:40; Admin Dose 2 TAB; Start 12/25/18 at 21:00 Sucralfate (Carafate Susp) 1 gm QID GTB Last administered on 12/29/18 08:39; Admin Dose 1 GM; Start 12/25/18 at 13:00 Valproate Sodium (Depakene Liquid Cup) 750 mg Q8H GTB Last administered on 12/29/18 05:51; Admin Dose 750 MG; Start 12/25/18 at 13:30 Zinc Sulfate (Zinc Sulfate) 220 mg DAILY GTB Last administered on 12/29/18 08:41; Admin Dose 220 MG; Start 12/26/18 at 09:00 Multivitamins/ Minerals (Theragran-M) 1 tab DAILY GTB Last administered on 12/29/18 08:41; Admin Dose 1 TAB; Start 12/26/18 at 09:00 Cefepime HCl 50 ml @ 100 mls/hr Q12 IVPB Last administered on 12/29/18 08:41; Admin Dose 100 MLS/HR; Start 12/25/18 at 23:00 Hydroxyzine HCl (Atarax) 25 mg BID GTB Last administered on 12/29/18at 08:41; Admin Dose 25 MG; Start 12/27/18 at 09:00 Fluocinonide (Lidex 0.05% Cr) 1 applic BID TOP Last administered on 12/29/18at 08:41; Admin Dose 1 APPLIC; Start 12/27/18 at 21:00; Stop 01/10/19 at 20:59 Assessment/Plan Hospital Course (Demo Recall) IMPRESSION 1. Severe sepsis secondary to urinary tract infection and likely healthcare-associated pneumonia. 2. Massive intracranial hemorrhage status post craniectomy and [employer] shunt. 3. Chronic respiratory failure. 4. Dysphagia with G-tube. Plan: 1. Continued broad spectrum antibiotics. 2. Appreciate neurosurgery consultation. 3. Tube feeding as tolerated. 4. Deep venous thrombosis and GI prophylaxis. 5. Address code status with family. DC planning okay from pulmonary standpoint LULU GARCIA MD, [facility] Dec 29, 2018 11:28
[2018-12-29] MEDS: MAGNESIUM HYDROXIDE 30ML CUP GTB SCH (11:43)
[2018-12-29 11:58] VITALS: BP 142/76; PULSE 95; RESP 20
[2018-12-29] MEDS: ACETAMINOPHEN 325 MG TAB GTB PRN ×2 (13:12→17:52)
--- NOTE | 2018-12-29 14:19 | CONS ---
Assessment/Plan Assessment/Plan Hospital Course (Demo Recall) assessment/impression - sepsis due to UTI - UTI due to proteus - contamination of blood cultures by coag negative Staph - h/o bacteremia due to MRSA in 10/2018 - h/o possible HCAP vs. 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; and hydrocephalus requiring VPS placement at [facility] - chronic hypoxic resp failure - h/o tracheostomy placement - dysphagia - h/o G tube placement recommendations - continue IV cefepime (12/25/2018-) for UTI and possible pneumonia, 5-7 day course Consultation Date/Type/Reason Admit Date/Time Dec 25, 2018 at 00:18 Initial Consult Date 12/25/18 Type of Consult ID Requesting Provider: REGINA BUI Date/Time of Note DATE: 12/29/18 TIME: 14:17 24 HR Interval Summary Subjective hx not possible: pt non-verbal Exam/Review of Systems Exam Vitals Vital Signs Date Temp Pulse Resp B/P (MAP) Pulse Ox O2 O2 Flow FiO2 Time Delivery Rate 12/29/18 96 5.0 28 13:05 12/29/18 100.5 95 20 142/76 11:58 (98) 12/29/18 Trach 07:16 Collar Intake and Output 12/28/18 12/28/18 12/29/18 1515:00 23:00 07:00 IntakeIntake Total 970 ml OutputOutput Total 1000 ml 1900 ml BalanceBalance -1000 ml -930 ml Constitutional: non-verbal Psych: other (unresponsive) Eyes: nl lids, other (s/p R craniectomy) ENMT: nl external ears & nose, nl nasal mucosa & septum, mucosa pink and moist Neck: other (trach) Respiratory: crackles/rales Cardiovascular: regular rate and rhythm, nl pulses Gastrointestinal: soft, non-tender, other (GT); No tender Genitourinary - Male: other (FC) Musculoskeletal: other (contractured UEs) Extremities: No edema Neurological: unresponsive Skin: rash or lesions (stage II decub of sacrum) Results Result Diagram: 12/27/18 0523 12/28/18 1502 Results 24hrs Laboratory Tests Test 12/28/18 15:02 Sodium Level 140 Potassium Level 4.3 Chloride Level 102 Carbon Dioxide Level 35 H Anion Gap 3 L Blood Urea Nitrogen 19 Creatinine 0.49 L Est Glomerular Filtrat Rate mL/min > 60 Glucose Level 176 Calcium Level 8.7 Magnesium Level 2.2 Medications Medication Current Medications Acetaminophen (Tylenol Tab) 650 mg PRN PRN GTB TRACH TUBE CHANGE Last admini stered on 12/29/18 13:12; Admin Dose 650 MG; Start 12/25/18 at 12:30 Acetaminophen (Tylenol Tab) 650 mg Q4H PRN GTB MILD PAIN LEVEL 1-3; Start 12/25/18 at 12:30 Ascorbic Acid (Vitamin C) 500 mg DAILY GTB Last administered on 12/29/18 08:40; Admin Dose 500 MG; Start 12/26/18 at 09:00 Bisacodyl (Dulcolax Supp) 10 mg DAILY PRN [place] NEEDED; Start 12/25/18 at 12:30 Carvedilol (Coreg) 3.125 mg BID GTB Last administered on 12/29/18 08:40; Admin Dose 3.125 MG; Start 12/25/18 at 21:00 Docusate Sodium (Colace) 100 mg QHS PO Last administered on 12/28/18 21:57; Admin Dose 100 MG; Start 12/25/18 at 21:00 Acetaminophen/ Hydrocodone Bitart ([place] (5/325)) 1 tab Q6H PRN GTB MODERATE PAIN LEVEL 4-6 Last administered on 12/25/18 23:40; Admin Dose 1 TAB; Start 12/25/18 at 13:00 Lansoprazole (Prevacid) 30 mg BID GTB Last administered on 12/29/18 08:40; Admin Dose 30 MG; Start 12/25/18 at 21:00 Lisinopril (Zestril) 10 mg DAILY GTB Last administered on 12/29/18 08:40; Admin Dose 10 MG; Start 12/25/18 at 12:30 Magnesium Hydroxide (Milk Of Mag) 30 ml Q24H GTB Last administered on 12/29/18 11:43; Admin Dose 30 ML; Start 12/25/18 at 12:30 Senna (Senokot) 2 tab BID GTB Last administered on 12/29/18 08:40; Admin Dose 2 TAB; Start 12/25/18 at 21:00 Sucralfate (Carafate Susp) 1 gm QID GTB Last administered on 12/29/18 13:12; Admin Dose 1 GM; Start 12/25/18 at 13:00 Valproate Sodium (Depakene Liquid Cup) 750 mg Q8H GTB Last administered on 12/29/18 13:13; Admin Dose 750 MG; Start 12/25/18 at 13:30 Zinc Sulfate (Zinc Sulfate) 220 mg DAILY GTB Last administered on 12/29/18 08:41; Admin Dose 220 MG; Start 12/26/18 at 09:00 Multivitamins/ Minerals (Theragran-M) 1 tab DAILY GTB Last administered on 12/29/18 08:41; Admin Dose 1 TAB; Start 12/26/18 at 09:00 Cefepime HCl 50 ml @ 100 mls/hr Q12 IVPB Last administered on 12/29/18 08:41; Admin Dose 100 MLS/HR; Start 12/25/18 at 23:00 Hydroxyzine HCl (Atarax) 25 mg BID GTB Last administered on 12/29/18 08:41; Admin Dose 25 MG; Start 12/27/18 at 09:00 Fluocinonide (Lidex 0.05% Cr) 1 applic BID TOP Last administered on 12/29/18 08:41; Admin Dose 1 APPLIC; Start 12/27/18 at 21:00; Stop 01/10/19 at 20:59 APRIL JORDAN M.D. Dec 29, 2018 14:19
--- NOTE | 2018-12-29 14:32 | CONS ---
Assessment/Plan Assessment/Plan Hospital Course (Demo Recall) IMP: 1.Cardiomyopathy--low EF 2.CHF-systolic acute on chronic 3.resp failure chonic s/p trach 4.encephalopathy-chronic 5.HTN-labile currently 6.UTI 7. h/o craniotomy 8. Fevers Recc: -Tele -serial ecg's -Contineu coreg/zestril -Continue abx's and f/u cx data -follow volume status closely with moises currently held Consultation Date/Type/Reason Admit Date/Time Dec 25, 2018 at 00:18 Initial Consult Date 12/25/18 Type of Consult Cardiology Reason for Consultation Cardiomyopathy Requesting Provider: REGINA BUI Date/Time of Note DATE: 12/29/18 TIME: 14:30 Exam/Review of Systems Vital Signs Vitals Vital Signs Date Temp Pulse Resp B/P (MAP) Pulse Ox O2 O2 Flow FiO2 Time Delivery Rate 12/29/18 96 5.0 28 13:05 12/29/18 100.5 95 20 142/76 11:58 (98) 12/29/18 Trach 07:16 Collar Intake and Output 12/28/18 12/28/18 12/29/18 1515:00 23:00 07:00 IntakeIntake Total 970 ml OutputOutput Total 1000 ml 1900 ml BalanceBalance -1000 ml -930 ml Exam Exam Review of Systems: CONSTITUTIONAL: No fevers, chills. PULMONARY: No sob CARDIOVASCULAR: No chest pain/palpitations GASTROINTESTINAL: No nausea/vomiting. GENITOURINARY: No hematuria/dysuria. MUSCULOSKELETAL: No myagias/arthalgias. PSYCHIATRIC: The patient denies depression. NEUROLOGIC: encephalopathic Constitutional: other (encephalopathic) Psych: no complaints Head: normocephalic ENMT: mucosa pink and moist Neck: jvd (( cm water), other (trached) Respiratory: diminished breath sounds (at bases/B) Cardiovascular: regular rate and rhythm Gastrointestinal: soft, non-tender Musculoskeletal: muscle weakness (generalized) Extremities: edema (none) Neurological: unresponsive Labs Result Diagram: 12/27/18 0523 12/28/18 1502 Results 24hrs Laboratory Tests Test 12/28/18 15:02 Sodium Level 140 Potassium Level 4.3 Chloride Level 102 Carbon Dioxide Level 35 H Anion Gap 3 L Blood Urea Nitrogen 19 Creatinine 0.49 L Est Glomerular Filtrat Rate mL/min > 60 Glucose Level 176 Calcium Level 8.7 Magnesium Level 2.2 Medications Medications Current Medications Acetaminophen (Tylenol Tab) 650 mg PRN PRN GTB TRACH TUBE CHANGE Last administered on 12/29/18 13:12; Admin Dose 650 MG; Start 12/25/18 at 12:30 Acetaminophen (Tylenol Tab) 650 mg Q4H PRN GTB MILD PAIN LEVEL 1-3; Start 12/25/18 at 12:30 Ascorbic Acid (Vitamin C) 500 mg DAILY GTB Last administered on 12/29/18 08:40; Admin Dose 500 MG; Start 12/26/18 at 09:00 Bisacodyl (Dulcolax Supp) 10 mg DAILY PRN [place] NEEDED; Start 12/25/18 at 12:30 Carvedilol (Coreg) 3.125 mg BID GTB Last administered on 12/29/18 08:40; Admin Dose 3.125 MG; Start 12/25/18 at 21:00 Docusate Sodium (Colace) 100 mg QHS PO Last administered on 12/28/18 21:57; Admin Dose 100 MG; Start 12/25/18 at 21:00 Acetaminophen/ Hydrocodone Bitart ([place] (5/325)) 1 tab Q6H PRN GTB MODERATE PAIN LEVEL 4-6 Last administered on 12/25/18 23:40; Admin Dose 1 TAB; Start 12/25/18 at 13:00 Lansoprazole (Prevacid) 30 mg BID GTB Last administered on 12/29/18 08:40; Admin Dose 30 MG; Start 12/25/18 at 21:00 Lisinopril (Zestril) 10 mg DAILY GTB Last administered on 12/29/18 08:40; Admin Dose 10 MG; Start 12/25/18 at 12:30 Magnesium Hydroxide (Milk Of Mag) 30 ml Q24H GTB Last administered on 12/29/18 11:43; Admin Dose 30 ML; Start 12/25/18 at 12:30 Senna (Senokot) 2 tab BID GTB Last administered on 12/29/18 08:40; Admin Dose 2 TAB; Start 12/25/18 at 21:00 Sucralfate (Carafate Susp) 1 gm QID GTB Last administered on 12/29/18 13:12; Admin Dose 1 GM; Start 12/25/18 at 13:00 Valproate Sodium (Depakene Liquid Cup) 750 mg Q8H GTB Last administered on 12/29/18 13:13; Admin Dose 750 MG; Start 12/25/18 at 13:30 Zinc Sulfate (Zinc Sulfate) 220 mg DAILY GTB Last administered on 12/29/18 08:41; Admin Dose 220 MG; Start 12/26/18 at 09:00 Multivitamins/ Minerals (Theragran-M) 1 tab DAILY GTB Last administered on 12/29/18 08:41; Admin Dose 1 TAB; Start 12/26/18 at 09:00 Cefepime HCl 50 ml @ 100 mls/hr Q12 IVPB Last administered on 12/29/18 08:41; Admin Dose 100 MLS/HR; Start 12/25/18 at 23:00 Hydroxyzine HCl (Atarax) 25 mg BID GTB Last administered on 12/29/18 08:41; Admin Dose 25 MG; Start 12/27/18 at 09:00 Fluocinonide (Lidex 0.05% Cr) 1 applic BID TOP Last administered on 12/29/18 08:41; Admin Dose 1 APPLIC; Start 12/27/18 at 21:00; Stop 01/10/19 at 20:59 MAE ROSALES Dec 29, 2018 14:32
[2018-12-29 15:22] VITALS: BP 141/73; PULSE 96; RESP 18
--- NOTE | 2018-12-29 18:51 | PN ---
Date/Time of Note Date/Time of Note DATE: 12/29/18 TIME: 18:47 Assessment/Plan VTE Prophylaxis Risk score (from [facility] [place]0 risk: 5 SCD applied (from [facility] [place]): Yes Pharmacological prophylaxis: NA/contraindicated Pharm contraindication: hemorrhagic infarct Lines/Catheters [facility] Saline Lock Urinary Cath still in place: Yes Reason Cath still needed: urinary retention Assessment/Plan Hospital Course Patient had a low-grade fever however remains hemodynamically stable continued on antibiotics for bacteremia and UTI, short run of V. tach per report, currently in sinus rhythm, stable electrolytes, patient is followed by cardio logy, continue telemetry monitoring. Patient continues on cool aerosol mist via tracheostomy. Assessment/Plan -Sepsis secondary to bacteremia and urinary tract infection. Dr. Kiran is following in infection disease consultation. -Chronic respiratory failure with tracheostomy, patient is currently on T-tube. -Generalized rash, Dr. Bassett is following in dermatology consultation. Preliminary scabies scrape is negative, continue Lidex. -Coronary artery disease, status post PTCA with stent placement -Ischemic cardiomyopathy -Diabetes -Dysphagia with G-tube -Dyslipidemia -History of right hemicraniectomy. -History of intracranial hemorrhage during last admission and evaluation by Dr. Espana in neurosurgery consultation with family decision against any aggressive surgical treatment. -Hx of Obesity -DNR status Further recommendations depends on clinical course. Plan of care discussed with Dr. Cortez. Result Diagram: 12/27/18 0512/28/18 1502 Exam/Review of Systems Exam Vitals Vital Signs Date Temp Pulse Resp B/P (MAP) Pulse Ox O2 O2 Flow FiO2 Time Delivery Rate 12/29/18 100.9 96 18 141/73 98 15:22 (95) 12/29/18 5.0 28 13:05 12/29/18 Trach 07:16 Collar Intake and Output 12/28/18 12/28/18 12/29/18 1515:00 23:00 07:00 IntakeIntake Total 970 ml OutputOutput Total 1000 ml 1900 ml BalanceBalance -1000 ml -930 ml Exam Constitutional: non-verbal Head: other (Status post right craniectomy) Eyes: PERRL (Left eye), other (Dilated fixed right eye pupil) Neck: other (Tracheostomy) Respiratory: diminished breath sounds Cardiovascular: regular rate and rhythm Gastrointestinal: soft, non-tender, other (G-tube) Extremities: normal pulses Neurological: unresponsive Skin: other (Upper extremity and chest rash) Medications Medication Current Medications Acetaminophen (Tylenol Tab) 650 mg PRN PRN GTB TRACH TUBE CHANGE Last administered on 12/29/18 17:52; Admin Dose 650 MG; Start 12/25/18 at 12:30 Acetaminophen (Tylenol Tab) 650 mg Q4H PRN GTB MILD PAIN LEVEL 1-3; Start 12/25/18 at 12:30 Ascorbic Acid (Vitamin C) 500 mg DAILY GTB Last administered on 12/29/18 08:40; Admin Dose 500 MG; Start 12/26/18 at 09:00 Bisacodyl (Dulcolax Supp) 10 mg DAILY PRN [place] NEEDED; Start 12/25/18 at 12:30 Carvedilol (Coreg) 3.125 mg BID GTB Last administered on 12/29/18 08:40; Admin Dose 3.125 MG; Start 12/25/18 at 21:00 Docusate Sodium (Colace) 100 mg QHS PO Last administered on 12/28/18 21:57; Admin Dose 100 MG; Start 12/25/18 at 21:00 Acetaminophen/ Hydrocodone Bitart ([place] (5/325)) 1 tab Q6H PRN GTB MODERATE PAIN LEVEL 4-6 Last administered on 12/25/18 23:40; Admin Dose 1 TAB; Start 12/25/18 at 13:00 Lansoprazole (Prevacid) 30 mg BID GTB Last administered on 12/29/18 08:40; Admin Dose 30 MG; Start 12/25/18 at 21:00 Lisinopril (Zestril) 10 mg DAILY GTB Last administered on 12/29/18 08:40; Admin Dose 10 MG; Start 12/25/18 at 12:30 Magnesium Hydroxide (Milk Of Mag) 30 ml Q24H GTB Last administered on 12/29/18 11:43; Admin Dose 30 ML; Start 12/25/18 at 12:30 Senna (Senokot) 2 tab BID GTB Last administered on 12/29/18 08:40; Admin Dose 2 TAB; Start 12/25/18 at 21:00 Sucralfate (Carafate Susp) 1 gm QID GTB Last administered on 12/29/18 17:50; Admin Dose 1 GM; Start 12/25/18 at 13:00 Valproate Sodium (Depakene Liquid Cup) 750 mg Q8H GTB Last administered on 12/29/18 13:13; Admin Dose 750 MG; Start 12/25/18 at 13:30 Zinc Sulfate (Zinc Sulfate) 220 mg DAILY GTB Last administered on 12/29/18 08:41; Admin Dose 220 MG; Start 12/26/18 at 09:00 Multivitamins/ Minerals (Theragran-M) 1 tab DAILY GTB Last administered on 12/29/18 08:41; Admin Dose 1 TAB; Start 12/26/18 at 09:00 Cefepime HCl 50 ml @ 100 mls/hr Q12 IVPB Last administered on 12/29/18 08:41; Admin Dose 100 MLS/HR; Start 12/25/18 at 23:00 Hydroxyzine HCl (Atarax) 25 mg BID GTB Last administered on 12/29/18 08:41; Admin Dose 25 MG; Start 12/27/18 at 09:00 Fluocinonide (Lidex 0.05% Cr) 1 applic BID TOP Last administered on 12/29/18 08:41; Admin Dose 1 APPLIC; Start 12/27/18 at 21:00; Stop 01/10/19 at 20:59 Furosemide (Lasix) 20 mg DAILY PO ; Start 12/30/18 at 09:00 SETH AVENDANO Dec 29, 2018 18:50
[2018-12-29 19:09] VITALS: BP 149/72; PULSE 50; RESP 20
[2018-12-29] MEDS: DOCUSATE SODIUM 100 MG CAP PO SCH (20:53)
[2018-12-30] VITALS: BP 151/70; PULSE 64; RESP 20
[2018-12-30 04:00] VITALS: BP 113/71; PULSE 88; RESP 18
[2018-12-30] MEDS: VALPROIC ACID LIQUID CUP 250 MG/5 ML CUP GTB SCH ×3 (06:17→20:52)
[2018-12-30 07:10] VITALS: BP 107/61; PULSE 78; RESP 20
[2018-12-30] MEDS: ASCORBIC ACID 500 MG TAB GTB SCH (08:29)
[2018-12-30] MEDS: MULTIVITAMINS/MINERALS TAB GTB SCH (08:29)
[2018-12-30] MEDS: LANSOPRAZOLE 30 MG CAP GTB SCH ×2 (08:29→20:53)
[2018-12-30] MEDS: SUCRALFATE (100 MG/ML) 10ML CUP GTB SCH ×4 (08:29→20:52)
[2018-12-30] MEDS: hydrOXYzine HCL 25 MG TAB GTB SCH ×2 (08:29→20:53)
[2018-12-30] MEDS: FUROSEMIDE 20 MG TAB PO SCH (08:30)
[2018-12-30] MEDS: SENNA TAB GTB SCH ×2 (08:30→20:53)
[2018-12-30] MEDS: LISINOPRIL 10 MG TAB GTB SCH (08:30)
[2018-12-30] MEDS: FLUOCINONIDE 0.05% 15 GM CR TOP SCH ×2 (08:34→21:49)
[2018-12-30] MEDS: CEFEPIME 2GM/50 ML (PMX) 50 ML IVPB SCH ×2 (08:46→21:48)
[2018-12-30 11:00] VITALS: BP 121/74; PULSE 78; RESP 18
[2018-12-30] MEDS: MAGNESIUM HYDROXIDE 30ML CUP GTB SCH (13:46)
[2018-12-30] MEDS: ZINC SULFATE 220 MG CAP GTB SCH (13:46)
[2018-12-30 15:35] VITALS: BP 115/67; PULSE 76; RESP 19
--- NOTE | 2018-12-30 17:53 | PN ---
Date/Time of Note Date/Time of Note DATE: 12/30/18 TIME: 17:51 Assessment/Plan VTE Prophylaxis Risk score (from [facility]0 risk: 1 [place] [facility] [place] Pharmacological prophylaxis: NA/contraindicated Pharm contraindication: bleeding Lines/Catheters IV Catheter Type (from [facility]): Saline Lock Urinary Cath still in place: Yes Reason Cath still needed: urinary retention Assessment/Plan Hospital Course Pt continues to have moderate secretions, continue breathing treatments, pulm toilet. Assessment/Plan -Sepsis secondary to bacteremia and urinary tract infection. Dr. Kiran is following in infection disease consultation. -Chronic respiratory failure with tracheostomy, patient is currently on T-tube. 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 Dr. Bassett is following in dermatology consultation. Preliminary scabies scrape is negative. -Coronary artery disease, status post PTCA with stent placement -Ischemic cardiomyopathy -Diabetes -Dysphagia with G-tube -Dyslipidemia -History of right hemicraniectomy. -History of intracranial hemorrhage during last admission and evaluation by Dr. Espana in neurosurgery consultation with family decision against any aggressive surgical treatment. -Hx of Obesity -DNR status Further recommendations depends on clinical course. Plan of care discussed with Dr. Cortez. Result Diagram: 12/30/18 1148 12/30/18 1148 Results 24hrs Laboratory Tests Test 12/30/18 11:48 White Blood Count 8.6 Red Blood Count 3.76 L Hemoglobin 10.3 L Hematocrit 32.7 L Mean Corpuscular Volume 87.0 Mean Corpuscular Hemoglobin 27.4 L Mean Corpuscular Hemoglobin Concent 31.5 L Red Cell Distribution Width 15.9 H Platelet Count 283 Mean Platelet Volume 11.6 H Immature Granulocytes % 1.400 H Neutrophils % 59.9 Lymphocytes % 22.1 Monocytes % 11.4 H Eosinophils % 4.4 Basophils % 0.8 Nucleated Red Blood Cells % 0.4 H Immature Granulocytes # 0.120 H Neutrophils # 5.1 Lymphocytes # 1.9 Monocytes # 1.0 H Eosinophils # 0.4 Basophils # 0.1 Nucleated Red Blood Cells # 0.0 Sodium Level 141 Potassium Level 4.2 Chloride Level 100 Carbon Dioxide Level 37 H Anion Gap 4 L Blood Urea Nitrogen 24 H Creatinine 0.52 L Est Glomerular Filtrat Rate mL/min > 60 Glucose Level 178 Calcium Level 8.7 Exam/Review of Systems Exam Vitals Vital Signs Date Temp Pulse Resp B/P (MAP) Pulse Ox O2 O2 Flow FiO2 Time Delivery Rate 12/30/18 96 26 96 Aerosol 5.0 28 17:18 12/30/18 99.1 115/67 15:35 (83) Intake and Output 12/29/18 12/29/18 12/30/18 1515:00 23:00 07:00 OutputOutput Total 600 ml 800 ml BalanceBalance -600 ml -800 ml Exam Constitutional: non-verbal Head: other (Status post right craniectomy) Eyes: PERRL (Left eye), other (Dilated fixed right eye pupil) Neck: other (Tracheostomy) Respiratory: diminished breath sounds Cardiovascular: regular rate and rhythm Gastrointestinal: soft, non-tender, other (G-tube) Extremities: normal pulses Neurological: unresponsive Skin: other (Upper extremity and chest rash) Results Results 24hrs Laboratory Tests Test 12/30/18 11:48 White Blood Count 8.6 Red Blood Count 3.76 L Hemoglobin 10.3 L Hematocrit 32.7 L Mean Corpuscular Volume 87.0 Mean Corpuscular Hemoglobin 27.4 L Mean Corpuscular Hemoglobin Concent 31.5 L Red Cell Distribution Width 15.9 H Platelet Count 283 Mean Platelet Volume 11.6 H Immature Granulocytes % 1.400 H Neutrophils % 59.9 Lymphocytes % 22.1 Monocytes % 11.4 H Eosinophils % 4.4 Basophils % 0.8 Nucleated Red Blood Cells % 0.4 H Immature Granulocytes # 0.120 H Neutrophils # 5.1 Lymphocytes # 1.9 Monocytes # 1.0 H Eosinophils # 0.4 Basophils # 0.1 Nucleated Red Blood Cells # 0.0 Sodium Level 141 Potassium Level 4.2 Chloride Level 100 Carbon Dioxide Level 37 H Anion Gap 4 L Blood Urea Nitrogen 24 H Creatinine 0.52 L Est Glomerular Filtrat Rate mL/min > 60 Glucose Level 178 Calcium Level 8.7 Medications Medication Current Medications Acetaminophen (Tylenol Tab) 650 mg PRN PRN GTB TRACH TUBE CHANGE Last administered on 12/29/18at 17:52; Admin Dose 650 MG; Start 12/25/18 at 12:30 Acetaminophen (Tylenol Tab) 650 mg Q4H PRN GTB MILD PAIN LEVEL 1-3; Start 12/25/18 at 12:30 Ascorbic Acid (Vitamin C) 500 mg DAILY GTB Last administered on 12/30/18 08:29; Admin Dose 500 MG; Start 12/26/18 at 09:00 Bisacodyl (Dulcolax Supp) 10 mg DAILY PRN [place] NEEDED; Start 12/25/18 at 12:30 Carvedilol (Coreg) 3.125 mg BID GTB Last administered on 12/30/18 08:29; Admin Dose 3.125 MG; Start 12/25/18 at 21:00 Docusate Sodium (Colace) 100 mg QHS PO Last administered on 12/29/18 20:53; Admin Dose 100 MG; Start 12/25/18 at 21:00 Acetaminophen/ Hydrocodone Bitart ([place] (5/325)) 1 tab Q6H PRN GTB MODERATE PAIN LEVEL 4-6 Last administered on 12/25/18 23:40; Admin Dose 1 TAB; Start 12/25/18 at 13:00 Lansoprazole (Prevacid) 30 mg BID GTB Last administered on 12/30/18 08:29; Admin Dose 30 MG; Start 12/25/18 at 21:00 Lisinopril (Zestril) 10 mg DAILY GTB Last administered on 12/30/18 08:30; Admin Dose 10 MG; Start 12/25/18 at 12:30 Magnesium Hydroxide (Milk Of Mag) 30 ml Q24H GTB Last administered on 12/30/18 13:46; Admin Dose 30 ML; Start 12/25/18 at 12:30 Senna (Senokot) 2 tab BID GTB Last administered on 12/30/18 08:30; Admin Dose 2 TAB; Start 12/25/18 at 21:00 Sucralfate (Carafate Susp) 1 gm QID GTB Last administered on 12/30/18 17:47; Admin Dose 1 GM; Start 12/25/18 at 13:00 Valproate Sodium (Depakene Liquid Cup) 750 mg Q8H GTB Last administered on 12/30/18 13:46; Admin Dose 750 MG; Start 12/25/18 at 13:30 Zinc Sulfate (Zinc Sulfate) 220 mg DAILY GTB Last administered on 12/30/18 13:46; Admin Dose 220 MG; Start 12/26/18 at 09:00 Multivitamins/ Minerals (Theragran-M) 1 tab DAILY GTB Last administered on 12/30/18 08:29; Admin Dose 1 TAB; Start 12/26/18 at 09:00 Cefepime HCl 50 ml @ 100 mls/hr Q12 IVPB Last administered on 12/30/18 08:46; Admin Dose 100 MLS/HR; Start 12/25/18 at 23:00 Hydroxyzine HCl (Atarax) 25 mg BID GTB Last administered on 12/30/18 08:29; Admin Dose 25 MG; Start 12/27/18 at 09:00 Fluocinonide (Lidex 0.05% Cr) 1 applic BID TOP Last administered on 12/30/18 08:34; Admin Dose 1 APPLIC; Start 12/27/18 at 21:00; Stop 01/10/19 at 20:59 Furosemide (Lasix) 20 mg DAILY PO Last administered on 12/30/18 08:30; Admin Dose 20 MG; Start 12/30/18 at 09:00 SETH AVENDANO Dec 30, 2018 17:53
[2018-12-30] MEDS ORDERED: ALBUTEROL/IPRATROPIUM (NEB) 3 ML AMP HHN PRN (18:00)
--- NOTE | 2018-12-30 18:12 | CONS ---
[facility] LIVE HCIS Consult Follow-up Patient Name: Johan Arroyo Unit Number: [id number] Date of : 1965 Patient Status: Admitted Inpatient Attending Doctor: Chaparro Cortez MD Edit: APRIL KELLY M.D. on 01/01/19 @ 02:52 Leticia: I discussed the management with MEATMAN Kevin and agree Assessment/Plan Assessment/Plan Hospital Course (Demo Recall) assessment/impression - sepsis due to UTI - UTI due to proteus - contamination of blood cultures by coag negative Staph - h/o bacteremia due to MRSA in 10/2018 - h/o possible HCAP vs. 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; and hydrocephalus requiring VPS placement at [facility] - chronic hypoxic resp failure - h/o tracheostomy placement - dysphagia - h/o G tube placement recommendations - continue IV cefepime (12/25/2018-) for UTI and possible pneumonia, 7 day course Management d/w pt's at bedside, BRADLEY Morillo, and with Dr. Kelly Consultation Date/Type/Reason Admit Date/Time Dec 25, 2018 at 00:18 Initial Consult Date 12/25/18 Type of Consult Infectious Disease Requesting Provider: REGINA BUI Date/Time of Note DATE: 12/30/18 TIME: 18:11 24 HR Interval Summary Free Text/Dictation Low grade temp yesterday. Afebrile today. No acute issues per d/w nursing Subjective hx not possible: pt non-verbal Exam/Review of Systems Exam Vitals Vital Signs Date Temp Pulse Resp B/P (MAP) Pulse Ox O2 O2 Flow FiO2 Time Delivery Rate 12/30/18 96 26 96 Aerosol 5.0 28 17:18 12/30/18 99.1 115/67 15:35 (83) Intake and Output 12/29/18 12/29/18 12/30/18 1515:00 23:00 07:00 OutputOutput Total 600 ml 800 ml BalanceBalance -600 ml -800 ml Constitutional: well developed, non-verbal, frail Psych: other (unable to assess) Head: other (R cranial defect s/p craniectomy) Eyes: nl lids ENMT: nl external ears & nose, nl nasal mucosa & septum, other (unable to examine OP) Neck: other (trach midline) Respiratory: diminished breath sounds Cardiovascular: regular rate and rhythm, nl pulses Gastrointestinal: soft, non-tender, distended, other (G-tube) Musculoskeletal: other (+Nelson) Extremities: edema, other (contractures of BUE) Neurological: unresponsive Skin: nl turgor, rash or lesions (stage 2 sacral decub) Results Result Diagram: 12/30/18 1148 12/30/18 1148 Results 24hrs Laboratory Tests Test 12/30/18 11:48 White Blood Count 8.6 Red Blood Count 3.76 L Hemoglobin 10.3 L Hematocrit 32.7 L Mean Corpuscular Volume 87.0 Mean Corpuscular Hemoglobin 27.4 L Mean Corpuscular Hemoglobin Concent 31.5 L Red Cell Distribution Width 15.9 H Platelet Count 283 Mean Platelet Volume 11.6 H Immature Granulocytes % 1.400 H Neutrophils % 59.9 Lymphocytes % 22.1 Monocytes % 11.4 H Eosinophils % 4.4 Basophils % 0.8 Nucleated Red Blood Cells % 0.4 H Immature Granulocytes # 0.120 H Neutrophils # 5.1 Lymphocytes # 1.9 Monocytes # 1.0 H Eosinophils # 0.4 Basophils # 0.1 Nucleated Red Blood Cells # 0.0 Sodium Level 141 Potassium Level 4.2 Chloride Level 100 Carbon Dioxide Level 37 H Anion Gap 4 L Blood Urea Nitrogen 24 H Creatinine 0.52 L Est Glomerular Filtrat Rate mL/min > 60 Glucose Level 178 Calcium Level 8.7 Medications Medication Current Medications Acetaminophen (Tylenol Tab) 650 mg PRN PRN GTB TRACH TUBE CHANGE Last administered on 12/29/18 17:52; Admin Dose 650 MG; Start 12/25/18 at 12:30 Acetaminophen (Tylenol Tab) 650 mg Q4H PRN GTB MILD PAIN LEVEL 1-3; Start 12/25/18 at 12:30 Ascorbic Acid (Vitamin C) 500 mg DAILY GTB Last administered on 12/30/18 08:29; Admin Dose 500 MG; Start 12/26/18 at 09:00 Bisacodyl (Dulcolax Supp) 10 mg DAILY PRN [place] NEEDED; Start 12/25/18 at 12:30 Carvedilol (Coreg) 3.125 mg BID GTB Last administered on 12/30/18 08:29; Admin Dose 3.125 MG; Start 12/25/18 at 21:00 Docusate Sodium (Colace) 100 mg QHS PO Last administered on 12/29/18 20:53; Admin Dose 100 MG; Start 12/25/18 at 21:00 Acetaminophen/ Hydrocodone Bitart ([place] (5/325)) 1 tab Q6H PRN GTB MODERATE PAIN LEVEL 4-6 Last administered on 12/25/18 23:40; Admin Dose 1 TAB; Start 12/25/18 at 13:00 Lansoprazole (Prevacid) 30 mg BID GTB Last administered on 12/30/18 08:29; Admin Dose 30 MG; Start 12/25/18 at 21:00 Lisinopril (Zestril) 10 mg DAILY GTB Last administered on 12/30/18 08:30; Admin Dose 10 MG; Start 12/25/18 at 12:30 Magnesium Hydroxide (Milk Of Mag) 30 ml Q24H GTB Last administered on 12/30/18 13:46; Admin Dose 30 ML; Start 12/25/18 at 12:30 Senna (Senokot) 2 tab BID GTB Last administered on 12/30/18 08:30; Admin Dose 2 TAB; Start 12/25/18 at 21:00 Sucralfate (Carafate Susp) 1 gm QID GTB Last administered on 12/30/18 17:47; Admin Dose 1 GM; Start 12/25/18 at 13:00 Valproate Sodium (Depakene Liquid Cup) 750 mg Q8H GTB Last administered on 12/30/18 13:46; Admin Dose 750 MG; Start 12/25/18 at 13:30 Zinc Sulfate (Zinc Sulfate) 220 mg DAILY GTB Last administered on 12/30/18 13:46; Admin Dose 220 MG; Start 12/26/18 at 09:00 Multivitamins/ Minerals (Theragran-M) 1 tab DAILY GTB Last administered on 08:29; Admin Dose 1 TAB; Start 12/26/18 at 09:00 Cefepime HCl 50 ml @ 100 mls/hr Q12 IVPB Last administered on 12/30/18 08:46; Admin Dose 100 MLS/HR; Start 12/25/18 at 23:00 Hydroxyzine HCl (Atarax) 25 mg BID GTB Last administered on 12/30/18 08:29; Admin Dose 25 MG; Start 12/27/18 at 09:00 Fluocinonide (Lidex 0.05% Cr) 1 applic BID TOP Last administered on 12/30/18 08:34; Admin Dose 1 APPLIC; Start 12/27/18 at 21:00; Stop 01/10/19 at 20:59 Furosemide (Lasix) 20 mg DAILY PO Last administered on 12/30/18 08:30; Admin Dose 20 MG; Start 12/30/18 at 09:00 Albuterol/ Ipratropium (Duoneb) 3 ml Q6H RESP THERAPY HHN ; Start 12/30/18 at 20:00 Albuterol/ Ipratropium (Duoneb) 3 ml Q3H RESP THERAPY PRN HHN SHORTNESS OF BREATH; Start 12/30/18 at 18:00 BISHNU ACOSTA NP Dec 30, 2018 18:12
--- NOTE | 2018-12-30 18:51 | CONS ---
Assessment/Plan Assessment/Plan Hospital Course (Demo Recall) IMP: 1.Cardiomyopathy--low EF 2.CHF-systolic acute on chronic 3.resp failure chonic s/p trach 4.encephalopathy-chronic 5.HTN-labile currently 6.UTI 7. h/o craniotomy 8. Fevers Recc: -Tele -serial ecg's -Contineu coreg/zestril and will make slight increase to coreg given short runs of NSVT -keep K>4 and Mg>2 -Continue abx's and f/u cx data -follow volume status closely back on daily lasix diuresis Consultation Date/Type/Reason Admit Date/Time Dec 25, 2018 at 00:18 Initial Consult Date 12/25/18 Type of Consult Cardiology Reason for Consultation Cardiomyopathy Requesting Provider: REGINA BUI Date/Time of Note DATE: 12/30/18 TIME: 18:49 Exam/Review of Systems Vital Signs Vitals Vital Signs Date Temp Pulse Resp B/P (MAP) Pulse Ox O2 O2 Flow FiO2 Time Delivery Rate 12/30/18 96 26 96 Aerosol 5.0 28 17:18 12/30/18 99.1 115/67 15:35 (83) Intake and Output 12/29/18 12/29/18 12/30/18 1414:59 22:59 06:59 OutputOutput Total 600 ml 800 ml BalanceBalance -600 ml -800 ml Exam Exam Review of Systems: CONSTITUTIONAL: No fevers, chills. PULMONARY: No sob CARDIOVASCULAR: No chest pain/palpitations GASTROINTESTINAL: No nausea/vomiting. GENITOURINARY: No hematuria/dysuria. MUSCULOSKELETAL: No myagias/arthalgias. PSYCHIATRIC: The patient denies depression. NEUROLOGIC: No weakness Constitutional: other (encephalopathic) Psych: no complaints Head: normocephalic ENMT: mucosa pink and moist Neck: supple, jvd (9 cm water), other (trach in place) Respiratory: diminished breath sounds (at bases/B) Cardiovascular: regular rate and rhythm Gastrointestinal: soft, non-tender Musculoskeletal: muscle weakness (generalized) Extremities: edema Neurological: unresponsive Labs Result Diagram: 12/30/18 1148 12/30/18 1148 Results 24hrs Laboratory Tests Test 12/30/18 11:48 White Blood Count 8.6 Red Blood Count 3.76 L Hemoglobin 10.3 L Hematocrit 32.7 L Mean Corpuscular Volume 87.0 Mean Corpuscular Hemoglobin 27.4 L Mean Corpuscular Hemoglobin Concent 31.5 L Red Cell Distribution Width 15.9 H Platelet Count 283 Mean Platelet Volume 11.6 H Immature Granulocytes % 1.400 H Neutrophils % 59.9 Lymphocytes % 22.1 Monocytes % 11.4 H Eosinophils % 4.4 Basophils % 0.8 Nucleated Red Blood Cells % 0.4 H Immature Granulocytes # 0.120 H Neutrophils # 5.1 Lymphocytes # 1.9 Monocytes # 1.0 H Eosinophils # 0.4 Basophils # 0.1 Nucleated Red Blood Cells # 0.0 Sodium Level 141 Potassium Level 4.2 Chloride Level 100 Carbon Dioxide Level 37 H Anion Gap 4 L Blood Urea Nitrogen 24 H Creatinine 0.52 L Est Glomerular Filtrat Rate mL/min > 60 Glucose Level 178 Calcium Level 8.7 Medications Medications Current Medications Acetaminophen (Tylenol Tab) 650 mg PRN PRN GTB TRACH TUBE CHANGE Last administered on 12/29/18 17:52; Admin Dose 650 MG; Start 12/25/18 at 12:30 Acetaminophen (Tylenol Tab) 650 mg Q4H PRN GTB MILD PAIN LEVEL 1-3; Start 12/25/18 at 12:30 Ascorbic Acid (Vitamin C) 500 mg DAILY GTB Last administered on 12/30/18 08:2 9; Admin Dose 500 MG; Start 12/26/18 at 09:00 Bisacodyl (Dulcolax Supp) 10 mg DAILY PRN [place] NEEDED; Start 12/25/18 at 12:30 Carvedilol (Coreg) 3.125 mg BID GTB Last administered on 12/30/18 08:29; Admin Dose 3.125 MG; Start 12/25/18 at 21:00 Docusate Sodium (Colace) 100 mg QHS PO Last administered on 12/29/18 20:53; Admin Dose 100 MG; Start 12/25/18 at 21:00 Acetaminophen/ Hydrocodone Bitart ([place] (5/325)) 1 tab Q6H PRN GTB MODERATE PAIN LEVEL 4-6 Last administered on 12/25/18 23:40; Admin Dose 1 TAB; Start 12/25/18 at 13:00 Lansoprazole (Prevacid) 30 mg BID GTB Last administered on 12/30/18 08:29; Admin Dose 30 MG; Start 12/25/18 at 21:00 Lisinopril (Zestril) 10 mg DAILY GTB Last administered on 12/30/18 08:30; Admin Dose 10 MG; Start 12/25/18 at 12:30 Magnesium Hydroxide (Milk Of Mag) 30 ml Q24H GTB Last administered on 12/30/18 13:46; Admin Dose 30 ML; Start 12/25/18 at 12:30 Senna (Senokot) 2 tab BID GTB Last administered on 12/30/18 08:30; Admin Dose 2 TAB; Start 12/25/18 at 21:00 Sucralfate (Carafate Susp) 1 gm QID GTB Last administered on 12/30/18 17:47; Admin Dose 1 GM; Start 12/25/18 at 13:00 Valproate Sodium (Depakene Liquid Cup) 750 mg Q8H GTB Last administered on 12/30/18 13:46; Admin Dose 750 MG; Start 12/25/18 at 13:30 Zinc Sulfate (Zinc Sulfate) 220 mg DAILY GTB Last administered on 12/30/18 13:46; Admin Dose 220 MG; Start 12/26/18 at 09:00 Multivitamins/ Minerals (Theragran-M) 1 tab DAILY GTB Last administered on 12/30/18 08:29; Admin Dose 1 TAB; Start 12/26/18 at 09:00 Cefepime HCl 50 ml @ 100 mls/hr Q12 IVPB Last administered on 12/30/18 08:46; Admin Dose 100 MLS/HR; Start 12/25/18 at 23:00 Hydroxyzine HCl (Atarax) 25 mg BID GTB Last administered on 12/30/18 08:29; Admin Dose 25 MG; Start 12/27/18 at 09:00 Fluocinonide (Lidex 0.05% Cr) 1 applic BID TOP Last administered on 12/30/18 08:34; Admin Dose 1 APPLIC; Start 12/27/18 at 21:00; Stop 01/10/19 at 20:59 Furosemide (Lasix) 20 mg DAILY PO Last administered on 12/30/18 08:30; Admin Dose 20 MG; Start 12/30/18 at 09:00 Albuterol/ Ipratropium (Duoneb) 3 ml Q6H RESP THERAPY HHN ; Start 12/30/18 at 20:00 Albuterol/ Ipratropium (Duoneb) 3 ml Q3H RESP THERAPY PRN HHN SHORTNESS OF B REATH; Start 12/30/18 at 18:00 MAE ROSALES Dec 30, 2018 18:51
[2018-12-30] MEDS: ALBUTEROL/IPRATROPIUM (NEB) 3 ML AMP HHN SCH (19:39)
[2018-12-30 20:23] VITALS: BP 176/84; PULSE 66; RESP 20
[2018-12-30] MEDS: DOCUSATE SODIUM 100 MG CAP PO SCH (20:54)
[2018-12-31 00:27] VITALS: BP 101/51; PULSE 74; RESP 20
[2018-12-31] MEDS: ALBUTEROL/IPRATROPIUM (NEB) 3 ML AMP HHN SCH ×4 (01:56→20:52)
[2018-12-31 04:00] VITALS: BP 113/60; PULSE 80; RESP 20
[2018-12-31] MEDS: VALPROIC ACID LIQUID CUP 250 MG/5 ML CUP GTB SCH ×3 (06:27→21:14)
[2018-12-31 08:11] VITALS: BP 111/59; PULSE 75; RESP 17
[2018-12-31] MEDS: ZINC SULFATE 220 MG CAP GTB SCH (09:38)
[2018-12-31] MEDS: LANSOPRAZOLE 30 MG CAP GTB SCH ×2 (09:39→21:15)
[2018-12-31] MEDS: CEFEPIME 2GM/50 ML (PMX) 50 ML IVPB SCH ×2 (09:39→22:06)
[2018-12-31] MEDS: ASCORBIC ACID 500 MG TAB GTB SCH (09:39)
[2018-12-31] MEDS: SUCRALFATE (100 MG/ML) 10ML CUP GTB SCH ×4 (09:39→21:14)
[2018-12-31] MEDS: MULTIVITAMINS/MINERALS TAB GTB SCH (09:40)
[2018-12-31] MEDS: SENNA TAB GTB SCH ×2 (09:40→21:15)
[2018-12-31] MEDS: hydrOXYzine HCL 25 MG TAB GTB SCH ×2 (09:40→21:14)
[2018-12-31] MEDS: FUROSEMIDE 20 MG TAB PO SCH (09:41)
[2018-12-31] MEDS: LISINOPRIL 10 MG TAB GTB SCH (09:41)
[2018-12-31] MEDS: FLUOCINONIDE 0.05% 15 GM CR TOP SCH ×2 (09:42→22:03)
[2018-12-31] MEDS: COLLAGENASE 5 GM (UD JAR) TOP SCH ×2 (09:45→14:48)
--- NOTE | 2018-12-31 10:47 | CONS ---
[facility] LIVE HCIS Consult Follow-up Patient Name: Johan Arroyo Unit Number: [id number] Date of : 1965 Patient Status: Admitted Inpatient Attending Doctor: Chaparro Cortez MD Edit: APRIL KELLY M.D. on 01/01/19 @ 02:53 Leticia: I discussed the management with [employer] HELPER Kevin and agree Assessment/Plan Assessment/Plan Hospital Course (Demo Recall) assessment/impression - sepsis due to UTI - UTI due to proteus - contamination of blood cultures by coag negative Staph - h/o bacteremia due to MRSA in 10/2018 - h/o possible HCAP vs. 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 Kelly Consultation Date/Type/Reason Admit Date/Time Dec 25, 2018 at 00:18 Initial Consult Date 12/25/18 Type of Consult Infectious Disease Requesting Provider: REGINA BUI Date/Time of Note DATE: 12/31/18 TIME: 10:45 24 HR Interval Summary Free Text/Dictation Remains afebrile and WBC WNL. No acute issues per d/w nursing. Subjective hx not possible: pt non-verbal Exam/Review of Systems Exam Vitals Vital Signs Date Temp Pulse Resp B/P (MAP) Pulse Ox O2 O2 Flow FiO2 Time Delivery Rate 12/31/18 98.6 75 17 111/59 99 08:11 (76) 12/31/18 5.0 28 07:50 12/31/18 Aerosol 07:48 T Tube Intake and Output 12/30/18 12/30/18 12/31/18 1515:00 23:00 07:00 IntakeIntake Total 1008 ml OutputOutput Total 700 ml 750 ml BalanceBalance -700 ml 258 ml Exam Constitutional: well developed, non-verbal, frail, other (chronically debilitated) Psych: other (unable to assess) Head: other (R cranial defect s/p craniectomy) Eyes: nl lids ENMT: nl external ears & nose, nl nasal mucosa & septum, other (unable to examine OP) Neck: other (trach midline and connected to T-piece) Respiratory: diminished breath sounds Cardiovascular: regular rate and rhythm, nl pulses No edema Gastrointestinal: soft, non-tender, other (G-tube with TF) Genitouriary - Male: nl penis, nl scrotum, other (Nelson in place with clear carlos manuel urine) Musculoskeletal: nl extremities to inspection Extremities: normal pulses Neurological: unresponsive (Obtunded) Skin: nl turgor, rash or lesions (eczematous rash is resolving; pt has very dry scaly skin), other (+sacrococcyx decub; scattered tattoos including "Cry later" on L chest wall) Results Result Diagram: 12/31/1851712/31/1818 Results 24hrs Laboratory Tests Test 12/30/18 11:48 12/31/18 05:18 White Blood Count 8.6 9.5 Red Blood Count 3.76 L 3.71 L Hemoglobin 10.3 L 10.2 L Hematocrit 32.7 L 32.6 L Mean Corpuscular Volume 87.0 87.9 Mean Corpuscular Hemoglobin 27.4 L 27.5 L Mean Corpuscular Hemoglobin Concent 31.5 L 31.3 L Red Cell Distribution Width 15.9 H 15.9 H Platelet Count 283 256 Mean Platelet Volume 11.6 H 11.6 H Immature Granulocytes % 1.400 H 1.100 H Neutrophils % 59.9 66.6 Lymphocytes % 22.1 19.5 Monocytes % 11.4 H 8.5 Eosinophils % 4.4 3.7 Basophils % 0.8 0.6 Nucleated Red Blood Cells % 0.4 H 0.0 Immature Granulocytes # 0.120 H 0.100 H Neutrophils # 5.1 6.3 Lymphocytes # 1.9 1.9 Monocytes # 1.0 H 0.8 Eosinophils # 0.4 0.4 Basophils # 0.1 0.1 Nucleated Red Blood Cells # 0.0 0.0 Sodium Level 141 139 Potassium Level 4.2 4.3 Chloride Level 100 98 Carbon Dioxide Level 37 H 39 H Anion Gap 4 L 2 L Blood Urea Nitrogen 24 H 28 H Creatinine 0.52 L 0.51 L Est Glomerular Filtrat Rate mL/min > 60 > 60 Glucose Level 178 192 Calcium Level 8.7 8.8 Medications Medication Current Medications Acetaminophen (Tylenol Tab) 650 mg PRN PRN GTB TRACH TUBE CHANGE Last administered on 12/29/18 17:52; Admin Dose 650 MG; Start 12/25/18 at 12:30 Acetaminophen (Tylenol Tab) 650 mg Q4H PRN GTB MILD PAIN LEVEL 1-3; Start 12/25/18 at 12:30 Ascorbic Acid (Vitamin C) 500 mg DAILY GTB Last administered on 12/31/18 09:39; Admin Dose 500 MG; Start 12/26/18 at 09:00 Bisacodyl (Dulcolax Supp) 10 mg DAILY PRN [place] NEEDED; Start 12/25/18 at 12:30 Docusate Sodium (Colace) 100 mg QHS PO Last administered on 12/30/18 20:54; Admin Dose 100 MG; Start 12/25/18 at 21:00 Acetaminophen/ Hydrocodone Bitart ([place] (5/325)) 1 tab Q6H PRN GTB MODERATE PAIN LEVEL 4-6 Last administered on 12/25/18 23:40; Admin Dose 1 TAB; Start 12/25/18 at 13:00 Lansoprazole (Prevacid) 30 mg BID GTB Last administered on 12/31/18 09:39; Admin Dose 30 MG; Start 12/25/18 at 21:00 Lisinopril (Zestril) 10 mg DAILY GTB Last administered on 12/31/18 09:41; Admin Dose 10 MG; Start 12/25/18 at 12:30 Magnesium Hydroxide (Milk Of Mag) 30 ml Q24H GTB Last administered on 12/30/18 13:46; Admin Dose 30 ML; Start 12/25/18 at 12:30 Senna (Senokot) 2 tab BID GTB Last administered on 12/31/18 09:40; Admin Dose 2 TAB; Start 12/25/18 at 21:00 Sucralfate (Carafate Susp) 1 gm QID GTB Last administered on 12/31/18 09:39; Admin Dose 1 GM; Start 12/25/18 at 13:00 Valproate Sodium (Depakene Liquid Cup) 750 mg Q8H GTB Last administered on 12/31/18 06:27; Admin Dose 750 MG; Start 12/25/18 at 13:30 Zinc Sulfate (Zinc Sulfate) 220 mg DAILY GTB Last administered on 12/31/18 09:38; Admin Dose 220 MG; Start 12/26/18 at 09:00 Multivitamins/ Minerals (Theragran-M) 1 tab DAILY GTB Last administered on 12/31/18 09:40; Admin Dose 1 TAB; Start 12/26/18 at 09:00 Cefepime HCl 50 ml @ 100 mls/hr Q12 IVPB Last administered on 12/31/18 09:39; Admin Dose 100 MLS/HR; Start 12/25/18 at 23:00 Hydroxyzine HCl (Atarax) 25 mg BID GTB Last administered on 12/31/18 09:40; Admin Dose 25 MG; Start 12/27/18 at 09:00 Fluocinonide (Lidex 0.05% Cr) 1 applic BID TOP Last administered on 12/31/18 09:42; Admin Dose 1 APPLIC; Start 12/27/18 at 21:00; Stop 01/10/19 at 20:59 Furosemide (Lasix) 20 mg DAILY PO Last administered on 12/31/18 09:41; Admin Dose 20 MG; Start 12/30/18 at 09:00 Albuterol/ Ipratropium (Duoneb) 3 ml Q6H RESP THERAPY HHN Last administered on 12/31/18 07:48; Admin Dose 3 ML; Start 12/30/18 at 20:00 Albuterol/ Ipratropium (Duoneb) 3 ml Q3H RESP THERAPY PRN HHN SHORTNESS OF BREATH; Start 12/30/18 at 18:00 Carvedilol (Coreg) 6.25 mg BID GTB Last administered on 12/31/18at 09:42; Admin Dose 6.25 MG; Start 12/30/18 at 21:00 Collagenase (Santyl) 1 applic DAILY TOP Last administered on 12/31/18at 09:45; Admin Dose 1 APPLIC; Start 12/31/18 at 09:00 BISHNU ACOSTA NP Dec 31, 2018 10:47
[2018-12-31 11:37] VITALS: BP 117/59; PULSE 78; RESP 18
--- NOTE | 2018-12-31 11:52 | CONS ---
Assessment/Plan Assessment/Plan Hospital Course (Demo Recall) IMP: 1.Cardiomyopathy--low EF 2.CHF-systolic acute on chronic 3.resp failure chonic s/p trach 4.encephalopathy-chronic 5.HTN-labile currently 6.UTI 7. h/o craniotomy 8. Fevers Recc: -Tele -serial ecg's -Contineu coreg/zestril s/p slight increase to coreg given short runs of NSVT -keep K>4 and Mg>2 -Continue abx's and f/u cx data -follow volume status closely on daily lasix diuresis Consultation Date/Type/Reason Admit Date/Time Dec 25, 2018 at 00:18 Initial Consult Date 12/25/18 Type of Consult Cardiology Reason for Consultation tachycardia Requesting Provider: REGINA BUI Date/Time of Note DATE: 12/31/18 TIME: 11:51 Exam/Review of Systems Vital Signs Vitals Vital Signs Date Temp Pulse Resp B/P (MAP) Pulse Ox O2 O2 Flow FiO2 Time Delivery Rate 12/31/18 98.3 78 18 117/59 98 11:37 (78) 12/31/18 5.0 28 07:50 12/31/18 Aerosol 07:48 T Tube Intake and Output 12/30/18 12/30/18 12/31/18 1515:00 23:00 07:00 IntakeIntake Total 1008 ml OutputOutput Total 700 ml 750 ml BalanceBalance -700 ml 258 ml Exam Exam Review of Systems: CONSTITUTIONAL: No fevers, chills. PULMONARY: No sob CARDIOVASCULAR: No chest pain/palpitations GASTROINTESTINAL: No nausea/vomiting. GENITOURINARY: No hematuria/dysuria. MUSCULOSKELETAL: No myagias/arthalgias. PSYCHIATRIC: The patient denies depression. NEUROLOGIC: encephalopathy Constitutional: alert Psych: no complaints Head: normocephalic ENMT: mucosa pink and moist Neck: supple, jvd (9 cm water) Respiratory: diminished breath sounds (at bases/B) Cardiovascular: regular rate and rhythm Gastrointestinal: soft, non-tender Musculoskeletal: muscle tone (normal) Extremities: edema (none) Neurological: other (No focal deficits) Labs Result Diagram: 12/31/1818 12/31/1818 Results 24hrs Laboratory Tests Test 12/31/18 05:18 White Blood Count 9.5 Red Blood Count 3.71 L Hemoglobin 10.2 L Hematocrit 32.6 L Mean Corpuscular Volume 87.9 Mean Corpuscular Hemoglobin 27.5 L Mean Corpuscular Hemoglobin Concent 31.3 L Red Cell Distribution Width 15.9 H Platelet Count 256 Mean Platelet Volume 11.6 H Immature Granulocytes % 1.100 H Neutrophils % 66.6 Lymphocytes % 19.5 Monocytes % 8.5 Eosinophils % 3.7 Basophils % 0.6 Nucleated Red Blood Cells % 0.0 Immature Granulocytes # 0.100 H Neutrophils # 6.3 Lymphocytes # 1.9 Monocytes # 0.8 Eosinophils # 0.4 Basophils # 0.1 Nucleated Red Blood Cells # 0.0 Sodium Level 139 Potassium Level 4.3 Chloride Level 98 Carbon Dioxide Level 39 H Anion Gap 2 L Blood Urea Nitrogen 28 H Creatinine 0.51 L Est Glomerular Filtrat Rate mL/min > 60 Glucose Level 192 Calcium Level 8.8 Medications Medications Current Medications Acetaminophen (Tylenol Tab) 650 mg PRN PRN GTB TRACH TUBE CHANGE Last administered on 12/29/18 17:52; Admin Dose 650 MG; Start 12/25/18 at 12:30 Acetaminophen (Tylenol Tab) 650 mg Q4H PRN GTB MILD PAIN LEVEL 1-3; Start 12/25/18 at 12:30 Ascorbic Acid (Vitamin C) 500 mg DAILY GTB Last administered on 12/31/18 09:39; Admin Dose 500 MG; Start 12/26/18 at 09:00 Bisacodyl (Dulcolax Supp) 10 mg DAILY PRN [place] NEEDED; Start 12/25/18 at 12:30 Docusate Sodium (Colace) 100 mg QHS PO Last administered on 12/30/18 20:54; Admin Dose 100 MG; Start 12/25/18 at 21:00 Acetaminophen/ Hydrocodone Bitart ([place] (5/325)) 1 tab Q6H PRN GTB MODERATE PAIN LEVEL 4-6 Last administered on 12/25/18 23:40; Admin Dose 1 TAB; Start 12/25/18 at 13:00 Lansoprazole (Prevacid) 30 mg BID GTB Last administered on 12/31/18 09:39; Admin Dose 30 MG; Start 12/25/18 at 21:00 Lisinopril (Zestril) 10 mg DAILY GTB Last administered on 12/31/18 09:41; Admin Dose 10 MG; Start 12/25/18 at 12:30 Magnesium Hydroxide (Milk Of Mag) 30 ml Q24H GTB Last administered on 12/30/18 13:46; Admin Dose 30 ML; Start 12/25/18 at 12:30 Senna (Senokot) 2 tab BID GTB Last administered on 12/31/18 09:40; Admin Dose 2 TAB; Start 12/25/18 at 21:00 Sucralfate (Carafate Susp) 1 gm QID GTB Last administered on 12/31/18 09:39; Admin Dose 1 GM; Start 12/25/18 at 13:00 Valproate Sodium (Depakene Liquid Cup) 750 mg Q8H GTB Last administered on 12/31 06:27; Admin Dose 750 MG; Start 12/25/18 at 13:30 Zinc Sulfate (Zinc Sulfate) 220 mg DAILY GTB Last administered on 12/31/18 09:38; Admin Dose 220 MG; Start 12/26/18 at 09:00 Multivitamins/ Minerals (Theragran-M) 1 tab DAILY GTB Last administered on 12/31/18 09:40; Admin Dose 1 TAB; Start 12/26/18 at 09:00 Cefepime HCl 50 ml @ 100 mls/hr Q12 IVPB Last administered on 12/31/18 09:39; Admin Dose 100 MLS/HR; Start 12/25/18 at 23:00; Stop 01/01/19 at 22:59 Hydroxyzine HCl (Atarax) 25 mg BID GTB Last administered on 12/31/18 09:40; Admin Dose 25 MG; Start 12/27/18 at 09:00 Fluocinonide (Lidex 0.05% Cr) 1 applic BID TOP Last administered on 12/31/18 09:42; Admin Dose 1 APPLIC; Start 12/27/18 at 21:00; Stop 01/10/19 at 20:59 Furosemide (Lasix) 20 mg DAILY PO Last administered on 12/31/18 09:41; Admin Dose 20 MG; Start 12/30/18 at 09:00 Albuterol/ Ipratropium (Duoneb) 3 ml Q6H RESP THERAPY HHN Last administered on 7/12/19at 07:48; Admin Dose 3 ML; Start 12/30/18 at 20:00 Albuterol/ Ipratropium (Duoneb) 3 ml Q3H RESP THERAPY PRN HHN SHORTNESS OF BREATH; Start 12/30/18 at 18:00 Carvedilol (Coreg) 6.25 mg BID GTB Last administered on 12/31/18at 09:42; Admin Dose 6.25 MG; Start 12/30/18 at 21:00 Collagenase (Santyl) 1 applic DAILY TOP Last administered on 12/31/18at 09:45; Admin Dose 1 APPLIC; Start 12/31/18 at 09:00 MAE ROSALES Dec 31, 2018 11:52
--- NOTE | 2018-12-31 12:22 | PN ---
Date/Time of Note Date/Time of Note DATE: 12/31/18 TIME: 12:19 Assessment/Plan VTE Prophylaxis Risk score (from [facility] [place]0 risk: 1 SCD applied (from [facility] [place] Yes SCD contraindicated: other Pharmacological prophylaxis: other Pharm contraindication: other Lines/Catheters IV Catheter Type (from [facility]): [place] Urinary Cath still in place: Yes Reason Cath still needed: urinary retention Assessment/Plan Result Diagram: 12/31/1818 12/31/1818 Results 24hrs Laboratory Tests Test 12/31/18 05:18 White Blood Count 9.5 Red Blood Count 3.71 L Hemoglobin 10.2 L Hematocrit 32.6 L Mean Corpuscular Volume 87.9 Mean Corpuscular Hemoglobin 27.5 L Mean Corpuscular Hemoglobin Concent 31.3 L Red Cell Distribution Width 15.9 H Platelet Count 256 Mean Platelet Volume 11.6 H Immature Granulocytes % 1.100 H Neutrophils % 66.6 Lymphocytes % 19.5 Monocytes % 8.5 Eosinophils % 3.7 Basophils % 0.6 Nucleated Red Blood Cells % 0.0 Immature Granulocytes # 0.100 H Neutrophils # 6.3 Lymphocytes # 1.9 Monocytes # 0.8 Eosinophils # 0.4 Basophils # 0.1 Nucleated Red Blood Cells # 0.0 Sodium Level 139 Potassium Level 4.3 Chloride Level 98 Carbon Dioxide Level 39 H Anion Gap 2 L Blood Urea Nitrogen 28 H Creatinine 0.51 L Est Glomerular Filtrat Rate mL/min > 60 Glucose Level 192 Calcium Level 8.8 Subjective 24 Hr Interval Summary Free Text/Dictation -diarrhea -afebrile - dw staff Subjective hx not possible: pt non-verbal Constitutional: requiring O2 Exam/Review of Systems Exam Vitals Vital Signs Date Temp Pulse Resp B/P (MAP) Pulse Ox O2 O2 Flow FiO2 Time Delivery Rate 12/31/18 98.3 78 18 117/59 98 11:37 (78) 12/31/18 5.0 28 07:50 12/31/18 Aerosol 07:48 T Tube Intake and Output 12/30/18 12/30/18 12/31/18 1515:00 23:00 07:00 IntakeIntake Total 1008 ml OutputOutput Total 700 ml 750 ml BalanceBalance -700 ml 258 ml Constitutional: well developed, non-verbal Psych: nl mood/affect Head: other (sp right craniotomy) Eyes: nl lids Neck: other (trach inatct) Respiratory: clear to auscultation Cardiovascular: nl pulses, other (s1s2) Gastrointestinal: soft, other (gt intact) Musculoskeletal: muscle weakness, range of motion Extremities: normal pulses Neurological: unresponsive Results Results 24hrs Laboratory Tests Test 12/31/18 05:18 White Blood Count 9.5 Red Blood Count 3.71 L Hemoglobin 10.2 L Hematocrit 32.6 L Mean Corpuscular Volume 87.9 Mean Corpuscular Hemoglobin 27.5 L Mean Corpuscular Hemoglobin Concent 31.3 L Red Cell Distribution Width 15.9 H Platelet Count 256 Mean Platelet Volume 11.6 H Immature Granulocytes % 1.100 H Neutrophils % 66.6 Lymphocytes % 19.5 Monocytes % 8.5 Eosinophils % 3.7 Basophils % 0.6 Nucleated Red Blood Cells % 0.0 Immature Granulocytes # 0.100 H Neutrophils # 6.3 Lymphocytes # 1.9 Monocytes # 0.8 Eosinophils # 0.4 Basophils # 0.1 Nucleated Red Blood Cells # 0.0 Sodium Level 139 Potassium Level 4.3 Chloride Level 98 Carbon Dioxide Level 39 H Anion Gap 2 L Blood Urea Nitrogen 28 H Creatinine 0.51 L Est Glomerular Filtrat Rate mL/min > 60 Glucose Level 192 Calcium Level 8.8 Medications Medication Current Medications Acetaminophen (Tylenol Tab) 650 mg PRN PRN GTB TRACH TUBE CHANGE Last administered on 12/29/18at 17:52; Admin Dose 650 MG; Start 12/25/18 at 12:30 Acetaminophen (Tylenol Tab) 650 mg Q4H PRN GTB MILD PAIN LEVEL 1-3; Start 12/25/18 at 12:30 Ascorbic Acid (Vitamin C) 500 mg DAILY GTB Last administered on 12/31/18at 09 :39; Admin Dose 500 MG; Start 12/26/18 at 09:00 Bisacodyl (Dulcolax Supp) 10 mg DAILY PRN [place] NEEDED; Start 12/25/18 at 12:30 Docusate Sodium (Colace) 100 mg QHS PO Last administered on 12/30/18at 20:54; Admin Dose 100 MG; Start 12/25/18 at 21:00 Acetaminophen/ Hydrocodone Bitart ([place] (5/325)) 1 tab Q6H PRN GTB MODERATE PAIN LEVEL 4-6 Last administered on 12/25/18 23:40; Admin Dose 1 TAB; Start 12/25/18 at 13:00 Lansoprazole (Prevacid) 30 mg BID GTB Last administered on 12/31/18 09:39; Admin Dose 30 MG; Start 12/25/18 at 21:00 Lisinopril (Zestril) 10 mg DAILY GTB Last administered on 12/31/18 09:41; Admin Dose 10 MG; Start 12/25/18 at 12:30 Magnesium Hydroxide (Milk Of Mag) 30 ml Q24H GTB Last administered on 12/30/18 13:46; Admin Dose 30 ML; Start 12/25/18 at 12:30 Senna (Senokot) 2 tab BID GTB Last administered on 12/31/18 09:40; Admin Dose 2 TAB; Start 12/25/18 at 21:00 Sucralfate (Carafate Susp) 1 gm QID GTB Last administered on 12/31/18 09:39; Admin Dose 1 GM; Start 12/25/18 at 13:00 Valproate Sodium (Depakene Liquid Cup) 750 mg Q8H GTB Last administered on 12/31/18 06:27; Admin Dose 750 MG; Start 12/25/18 at 13:30 Zinc Sulfate (Zinc Sulfate) 220 mg DAILY GTB Last administered on 12/31/18 09:38; Admin Dose 220 MG; Start 12/26/18 at 09:00 Multivitamins/ Minerals (Theragran-M) 1 tab DAILY GTB Last administered on 12/31/18 09:40; Admin Dose 1 TAB; Start 12/26/18 at 09:00 Cefepime HCl 50 ml @ 100 mls/hr Q12 IVPB Last administered on 12/31/18 09:39; Admin Dose 100 MLS/HR; Start 12/25/18 at 23:00; Stop 01/01/19 at 22:59 Hydroxyzine HCl (Atarax) 25 mg BID GTB Last administered on 12/31/18 09:40; Admin Dose 25 MG; Start 12/27/18 at 09:00 Fluocinonide (Lidex 0.05% Cr) 1 applic BID TOP Last administered on 12/31/18 09:42; Admin Dose 1 APPLIC; Start 12/27/18 at 21:00; Stop 01/10/19 at 20:59 Furosemide (Lasix) 20 mg DAILY PO Last administered on 12/31/18 09:41; Admin Dose 20 MG; Start 12/30/18 at 09:00 Albuterol/ Ipratropium (Duoneb) 3 ml Q6H RESP THERAPY HHN Last administered on 12/31/18 07:48; Admin Dose 3 ML; Start 12/30/18 at 20:00 Albuterol/ Ipratropium (Duoneb) 3 ml Q3H RESP THERAPY PRN HHN SHORTNESS OF BREATH; Start 12/30/18 at 18:00 Carvedilol (Coreg) 6.25 mg BID GTB Last administered on 12/31/18at 09:42; Admin Dose 6.25 MG; Start 12/30/18 at 21:00 Collagenase (Santyl) 1 applic DAILY TOP Last administered on 12/31/18at 09:45; Admin Dose 1 APPLIC; Start 12/31/18 at 09:00 REGINA BUI Dec 31, 2018 12:22
[2018-12-31] MEDS: MAGNESIUM HYDROXIDE 30ML CUP GTB SCH (12:30)
--- NOTE | 2018-12-31 12:38 | CONS ---
Consult Date/Type/Reason Admit Date/Time Dec 25, 2018 at 00:18 Initial Consult Date 12/25/18 Type of Consult Pulmonary Requesting Provider: REGINA BUI Date/Time of Note DATE: 12/31/18 TIME: 12:38 Subjective Comfortable. Objective Vital Signs Date Temp Pulse Resp B/P (MAP) Pulse Ox O2 O2 Flow FiO2 Time Delivery Rate 12/31/18 98.3 78 18 117/59 98 11:37 (78) 12/31/18 5.0 28 07:50 12/31/18 Aerosol 07:48 T Tube Intake and Output 12/30/18 12/30/18 12/31/18 1515:00 23:00 07:00 IntakeIntake Total 1008 ml OutputOutput Total 700 ml 750 ml BalanceBalance -700 ml 258 ml Exam PHYSICAL EXAMINATION: GENERAL: Elderly-appearing gentleman, appears comfortable at rest, no acute distress. VITAL SIGNS: NECK: Trach site appears clean and intact. CARDIAC: S1, S2, no added sounds or murmurs. CHEST: Diminished air entry bilaterally. ABDOMEN: Soft, nontender. No guarding or rebound. EXTREMITIES: No cyanosis, clubbing, 1+ edema. NEUROLOGIC: Unable to assess. Vent Setting Fraction of Inspired Oxygen pe: 28 Results/Medications Result Diagram: 12/31/18 0518 12/31/18 0518 Results 24 hrs Laboratory Tests Test 12/31/18 05:18 White Blood Count 9.5 Red Blood Count 3.71 L Hemoglobin 10.2 L Hematocrit 32.6 L Mean Corpuscular Volume 87.9 Mean Corpuscular Hemoglobin 27.5 L Mean Corpuscular Hemoglobin Concent 31.3 L Red Cell Distribution Width 15.9 H Platelet Count 256 Mean Platelet Volume 11.6 H Immature Granulocytes % 1.100 H Neutrophils % 66.6 Lymphocytes % 19.5 Monocytes % 8.5 Eosinophils % 3.7 Basophils % 0.6 Nucleated Red Blood Cells % 0.0 Immature Granulocytes # 0.100 H Neutrophils # 6.3 Lymphocytes # 1.9 Monocytes # 0.8 Eosinophils # 0.4 Basophils # 0.1 Nucleated Red Blood Cells # 0.0 Sodium Level 139 Potassium Level 4.3 Chloride Level 98 Carbon Dioxide Level 39 H Anion Gap 2 L Blood Urea Nitrogen 28 H Creatinine 0.51 L Est Glomerular Filtrat Rate mL/min > 60 Glucose Level 192 Calcium Level 8.8 Medications Current Medications Acetaminophen (Tylenol Tab) 650 mg PRN PRN GTB TRACH TUBE CHANGE Last administered on 12/29/18 17:52; Admin Dose 650 MG; Start 12/25/18 at 12:30 Acetaminophen (Tylenol Tab) 650 mg Q4H PRN GTB MILD PAIN LEVEL 1-3; Start 12/25/18 at 12:30 Ascorbic Acid (Vitamin C) 500 mg DAILY GTB Last administered on 12/31/18 09:39; Admin Dose 500 MG; Start 12/26/18 at 09:00 Bisacodyl (Dulcolax Supp) 10 mg DAILY PRN [place] NEEDED; Start 12/25/18 at 12:30 Docusate Sodium (Colace) 100 mg QHS PO Last administered on 12/30/18 20:54; Admin Dose 100 MG; Start 12/25/18 at 21:00 Acetaminophen/ Hydrocodone Bitart ([place] (5/325)) 1 tab Q6H PRN GTB MODERATE PAIN LEVEL 4-6 Last administered on 12/25/18 23:40; Admin Dose 1 TAB; Start 12/25/18 at 13:00 Lansoprazole (Prevacid) 30 mg BID GTB Last administered on 12/31/18 09:39; Admin Dose 30 MG; Start 12/25/18 at 21:00 Lisinopril (Zestril) 10 mg DAILY GTB Last administered on 12/31/18 09:41; Admin Dose 10 MG; Start 12/25/18 at 12:30 Magnesium Hydroxide (Milk Of Mag) 30 ml Q24H GTB Last administered on 12/30/18 13:46; Admin Dose 30 ML; Start 12/25/18 at 12:30 Senna (Senokot) 2 tab BID GTB Last administered on 12/31/18 09:40; Admin Dose 2 TAB; Start 12/25/18 at 21:00 Sucralfate (Carafate Susp) 1 gm QID GTB Last administered on 12/31/18 09:39; Admin Dose 1 GM; Start 12/25/18 at 13:00 Valproate Sodium (Depakene Liquid Cup) 750 mg Q8H GTB Last administered on 12/31/18 06:27; Admin Dose 750 MG; Start 12/25/18 at 13:30 Zinc Sulfate (Zinc Sulfate) 220 mg DAILY GTB Last administered on 12/31/18 09:38; Admin Dose 220 MG; Start 12/26/18 at 09:00 Multivitamins/ Minerals (Theragran-M) 1 tab DAILY GTB Last administered on 12/31/18 09:40; Admin Dose 1 TAB; Start 12/26/18 at 09:00 Cefepime HCl 50 ml @ 100 mls/hr Q12 IVPB Last administered on 12/31/18 09:39; Admin Dose 100 MLS/HR; Start 12/25/18 at 23:00; Stop 01/01/19 at 22:59 Hydroxyzine HCl (Atarax) 25 mg BID GTB Last administered on 12/31/18 09:40; Admin Dose 25 MG; Start 12/27/18 at 09:00 Fluocinonide (Lidex 0.05% Cr) 1 applic BID TOP Last administered on 12/31/18 09:42; Admin Dose 1 APPLIC; Start 12/27/18 at 21:00; Stop 01/10/19 at 20:59 Furosemide (Lasix) 20 mg DAILY PO Last administered on 12/31/18 09:41; Admin Dose 20 MG; Start 12/30/18 at 09:00 Albuterol/ Ipratropium (Duoneb) 3 ml Q6H RESP THERAPY HHN Last administered on 12/31/18 07:48; Admin Dose 3 ML; Start 12/30/18 at 20:00 Albuterol/ Ipratropium (Duoneb) 3 ml Q3H RESP THERAPY PRN HHN SHORTNESS OF BREATH; Start 12/30/18 at 18:00 Carvedilol (Coreg) 6.25 mg BID GTB Last administered on 12/31/18 09:42; Admin Dose 6.25 MG; Start 12/30/18 at 21:00 Collagenase (Santyl) 1 applic DAILY TOP Last administered on 12/31/18 09:45; Admin Dose 1 APPLIC; Start 12/31/18 at 09:00 Assessment/Plan Hospital Course (Demo Recall) IMPRESSION 1. Severe sepsis secondary to urinary tract infection and likely healthcare- associated pneumonia. 2. Massive intracranial hemorrhage status post craniectomy and TRANSPORTATION ATTENDANT shunt. 3. Chronic respiratory failure. 4. Dysphagia with G-tube. Plan: 1. Continued broad spectrum antibiotics. 2. Appreciate neurosurgery consultation. 3. Tube feeding as tolerated. 4. Deep venous thrombosis and GI prophylaxis. 5. Address code status with family. LULU GARCIA MD, [facility] Dec 31, 2018 12:38
[2018-12-31 15:28] VITALS: BP 113/63; PULSE 79; RESP 18
[2018-12-31 21:05] VITALS: BP 147/64; PULSE 77; RESP 18
[2018-12-31] MEDS: DOCUSATE SODIUM 100 MG CAP PO SCH (21:14)
[2019-01-01] VITALS: BP 118/61; PULSE 73; RESP 18
[2019-01-01] MEDS: ALBUTEROL/IPRATROPIUM (NEB) 3 ML AMP HHN SCH ×4 (01:00→19:39)
[2019-01-01 04:00] VITALS: BP 130/70; PULSE 82; RESP 18
[2019-01-01] MEDS: VALPROIC ACID LIQUID CUP 250 MG/5 ML CUP GTB SCH ×3 (06:15→21:00)
[2019-01-01 07:48] VITALS: BP 127/68; PULSE 88; RESP 18
[2019-01-01] MEDS: SUCRALFATE (100 MG/ML) 10ML CUP GTB SCH ×4 (08:20→20:53)
[2019-01-01] MEDS: hydrOXYzine HCL 25 MG TAB GTB SCH ×2 (08:20→20:53)
[2019-01-01] MEDS: LISINOPRIL 10 MG TAB GTB SCH (08:21)
[2019-01-01] MEDS: MULTIVITAMINS/MINERALS TAB GTB SCH (08:21)
[2019-01-01] MEDS: LANSOPRAZOLE 30 MG CAP GTB SCH ×2 (08:21→20:53)
[2019-01-01] MEDS: ASCORBIC ACID 500 MG TAB GTB SCH (08:21)
[2019-01-01] MEDS: SENNA TAB GTB SCH ×2 (08:21→20:52)
[2019-01-01] MEDS: FUROSEMIDE 20 MG TAB PO SCH (08:21)
[2019-01-01] MEDS: ZINC SULFATE 220 MG CAP GTB SCH (08:21)
[2019-01-01] MEDS: FLUOCINONIDE 0.05% 15 GM CR TOP SCH ×2 (08:22→21:38)
[2019-01-01] MEDS: CEFEPIME 2GM/50 ML (PMX) 50 ML IVPB SCH ×2 (10:33→21:08)
--- NOTE | 2019-01-01 10:46 | PN ---
Date/Time of Note Date/Time of Note DATE: 01/01/19 TIME: 10:45 Assessment/Plan VTE Prophylaxis Risk score (from Ns)>0 risk: 6 SCD applied (from Ns): Yes Pharmacological prophylaxis: LMWH Lines/Catheters IV [facility]from [facility] [place] Urinary Cath still in place: Yes Reason Cath still needed: skin wounds contaminated by urine Assessment/Plan Hospital Course -Sepsis secondary to bacteremia and urinary tract infection. Dr. Kiran is f ollowing in infection disease consultation. -Chronic respiratory failure with tracheostomy, patient is currently on T-tube. -Generalized rash, Dr. Bassett is following in dermatology consultation. Pre liminary scabies scrape is negative, continue Lidex. -Coronary artery disease, status post PTCA with stent placement -Ischemic cardiomyopathy -Diabetes -Dysphagia with G-tube -Dyslipidemia -History of right hemicraniectomy. -History of intracranial hemorrhage during last admission and evaluation by Dr. Espana in neurosurgery consultation with family decision against any aggressive surgical treatment. -Hx of Obesity -DNR status Result Diagram: 12/31/1851712/31/18517 Subjective 24 Hr Interval Summary Free Text/Dictation Patient sedated, on vent via trach, not responsive to voice or touch Exam/Review of Systems Exam Vitals Vital Signs Date Temp Pulse Resp B/P (MAP) Pulse Ox O2 O2 Flow FiO2 Time Delivery Rate 01/01/19 98.7 88 18 127/68 97 07:48 (87) 01/01/19 Aerosol 5.0 28 07:31 T Tube Intake and Output 12/31/18 12/31/18 01/01/19 1515:00 23:00 07:00 IntakeIntake Total 50 ml 1240 ml 991 ml OutputOutput Total 750 ml 1000 ml BalanceBalance 50 ml 490 ml -9 ml Constitutional: well developed Head: normocephalic, atraumatic Neck: supple Respiratory: diminished breath sounds Cardiovascular: regular rate and rhythm Gastrointestinal: soft, non-tender Extremities: normal pulses Medications Medication Current Medications Acetaminophen (Tylenol Tab) 650 mg PRN PRN GTB TRACH TUBE CHANGE Last administered on 12/29/18at 17:52; Admin Dose 650 MG; Start 12/25/18 at 12:30 Acetaminophen (Tylenol Tab) 650 mg Q4H PRN GTB MILD PAIN LEVEL 1-3; Start 12/25/18 at 12:30 Ascorbic Acid (Vitamin C) 500 mg DAILY GTB Last administered on 01/01/19 08:21; Admin Dose 500 MG; Start 12/26/18 at 09:00 Bisacodyl (Dulcolax Supp) 10 mg DAILY PRN [place] NEEDED; Start 12/25/18 at 12:30 Docusate Sodium (Colace) 100 mg QHS PO Last administered on 12/31/18 21:14; Admin Dose 100 MG; Start 12/25/18 at 21:00 Acetaminophen/ Hydrocodone Bitart ([place] (5/325)) 1 tab Q6H PRN GTB MODERATE PAIN LEVEL 4-6 Last administered on 12/25/18 23:40; Admin Dose 1 TAB; Start 12/25/18 at 13:00 Lansoprazole (Prevacid) 30 mg BID GTB Last administered on 01/01/19 08:21; Admin Dose 30 MG; Start 12/25/18 at 21:00 Lisinopril (Zestril) 10 mg DAILY GTB Last administered on 01/01/19 08:21; Admin Dose 10 MG; Start 12/25/18 at 12:30 Magnesium Hydroxide (Milk Of Mag) 30 ml Q24H GTB Last administered on 12/30/18 13:46; Admin Dose 30 ML; Start 12/25/18 at 12:30 Senna (Senokot) 2 tab BID GTB Last administered on 01/01/19 08:21; Admin Dose 2 TAB; Start 12/25/18 at 21:00 Sucralfate (Carafate Susp) 1 gm QID GTB Last administered on 01/01/19 08:20; Admin Dose 1 GM; Start 12/25/18 at 13:00 Valproate Sodium (Depakene Liquid Cup) 750 mg Q8H GTB Last administered on 01/01/19 06:15; Admin Dose 750 MG; Start 12/25/18 at 13:30 Zinc Sulfate (Zinc Sulfate) 220 mg DAILY GTB Last administered on 01/01/19 08:21; Admin Dose 220 MG; Start 12/26/18 at 09:00 Multivitamins/ Minerals (Theragran-M) 1 tab DAILY GTB Last administered on 7/13/19at 08:21; Admin Dose 1 TAB; Start 12/26/18 at 09:00 Cefepime HCl 50 ml @ 100 mls/hr Q12 IVPB Last administered on 01/01/19 10:33; Admin Dose 100 MLS/HR; Start 12/25/18 at 23:00; Stop 01/01/19 at 22:59 Hydroxyzine HCl (Atarax) 25 mg BID GTB Last administered on 01/01/19 08:20; Admin Dose 25 MG; Start 12/27/18 at 09:00 Fluocinonide (Lidex 0.05% Cr) 1 applic BID TOP Last administered on 01/01/19 08:22; Admin Dose 1 APPLIC; Start 12/27/18 at 21:00; Stop 01/10/19 at 20:59 Furosemide (Lasix) 20 mg DAILY PO Last administered on 01/01/19 08:21; Admin Dose 20 MG; Start 12/30/18 at 09:00 Albuterol/ Ipratropium (Duoneb) 3 ml Q6H RESP THERAPY HHN Last administered on 01/01/19 07:31; Admin Dose 3 ML; Start 12/30/18 at 20:00 Albuterol/ Ipratropium (Duoneb) 3 ml Q3H RESP THERAPY PRN HHN SHORTNESS OF BREATH; Start 12/30/18 at 18:00 Carvedilol (Coreg) 6.25 mg BID GTB Last administered on 01/01/19 08:21; Admin Dose 6.25 MG; Start 12/30/18 at 21:00 Collagenase (Santyl) 1 applic DAILY TOP Last administered on 12/31/18 14:48; Admin Dose 1 APPLIC; Start 12/31/18 at 09:00 PARAS MURILLO Jan 01, 2019 10:45
[2019-01-01 11:52] VITALS: BP 125/75; PULSE 82; RESP 18
[2019-01-01] MEDS: MAGNESIUM HYDROXIDE 30ML CUP GTB SCH (12:28)
--- NOTE | 2019-01-01 13:53 | CONS ---
Assessment/Plan Assessment/Plan Hospital Course (Demo Recall) IMP: 1.Cardiomyopathy--low EF 2.CHF-systolic acute on chronic 3.resp failure chonic s/p trach 4.encephalopathy-chronic 5.HTN-labile currently 6.UTI 7. h/o craniotomy 8. Fevers Recc: -Tele -serial ecg's -Contineu coreg/zestril s/p slight increase to coreg given short runs of NSVT -keep K>4 and Mg>2 -Continue abx's and f/u cx data -follow volume status closely on daily lasix diuresis Consultation Date/Type/Reason Admit Date/Time Dec 25, 2018 at 00:18 Initial Consult Date 12/25/18 Type of Consult Cardiology Reason for Consultation CHF Requesting Provider: REGINA BUI Date/Time of Note DATE: 01/01/19 TIME: 13:51 Exam/Review of Systems Vital Signs Vitals Vital Signs Date Temp Pulse Resp B/P (MAP) Pulse Ox O2 O2 Flow FiO2 Time Delivery Rate 01/01/19 97.9 82 18 125/75 97 11:52 (92) 01/01/19 Aerosol 5.0 28 07:31 T Tube Intake and Output 12/31/18 12/31/18 01/01/19 1515:00 23:00 07:00 IntakeIntake Total 50 ml 1240 ml 991 ml OutputOutput Total 750 ml 1000 ml BalanceBalance 50 ml 490 ml -9 ml Exam Exam Review of Systems: CONSTITUTIONAL: No fevers, chills. PULMONARY: trached CARDIOVASCULAR: No chest pain/palpitations GASTROINTESTINAL: No nausea/vomiting. GENITOURINARY: No hematuria/dysuria. MUSCULOSKELETAL: No myagias/arthalgias. PSYCHIATRIC: The patient denies depression. NEUROLOGIC: encephalopathic Constitutional: other (encephalopathic) Psych: no complaints Head: normocephalic ENMT: mucosa pink and moist Neck: supple, jvd (9 cm water) Respiratory: diminished breath sounds (at bases/B) Cardiovascular: regular rate and rhythm Gastrointestinal: soft, non-tender Musculoskeletal: muscle weakness (generalized) Extremities: edema (none) Neurological: unresponsive Labs Result Diagram: 12/31/1851712/31/18517 Medications Medications Current Medications Acetaminophen (Tylenol Tab) 650 mg PRN PRN GTB TRACH TUBE CHANGE Last administered on 12/29/18 17:52; Admin Dose 650 MG; Start 12/25/18 at 12:30 Acetaminophen (Tylenol Tab) 650 mg Q4H PRN GTB MILD PAIN LEVEL 1-3; Start 12/25/18 at 12:30 Ascorbic Acid (Vitamin C) 500 mg DAILY GTB Last administered on 01/01/19 08: 21; Admin Dose 500 MG; Start 12/26/18 at 09:00 Bisacodyl (Dulcolax Supp) 10 mg DAILY PRN [place] NEEDED; Start 12/25/18 at 12:30 Docusate Sodium (Colace) 100 mg QHS PO Last administered on 12/31/18 21:14; Admin Dose 100 MG; Start 12/25/18 at 21:00 Acetaminophen/ Hydrocodone Bitart ([place] (5/325)) 1 tab Q6H PRN GTB MODERATE PAIN LEVEL 4-6 Last administered on 12/25/18 23:40; Admin Dose 1 TAB; Start 12/25/18 at 13:00 Lansoprazole (Prevacid) 30 mg BID GTB Last administered on 01/01/19 08:21; Admin Dose 30 MG; Start 12/25/18 at 21:00 Lisinopril (Zestril) 10 mg DAILY GTB Last administered on 01/01/19 08:21; Admin Dose 10 MG; Start 12/25/18 at 12:30 Magnesium Hydroxide (Milk Of Mag) 30 ml Q24H GTB Last administered on 01/01/19 12:28; Admin Dose 30 ML; Start 12/25/18 at 12:30 Senna (Senokot) 2 tab BID GTB Last administered on 01/01/19 08:21; Admin Dose 2 TAB; Start 12/25/18 at 21:00 Sucralfate (Carafate Susp) 1 gm QID GTB Last administered on 01/01/19 12:28; Admin Dose 1 GM; Start 12/25/18 at 13:00 Valproate Sodium (Depakene Liquid Cup) 750 mg Q8H GTB Last administered on 01/01/19 12:28; Admin Dose 750 MG; Start 12/25/18 at 13:30 Zinc Sulfate (Zinc Sulfate) 220 mg DAILY GTB Last administered on 01/01/19 08:21; Admin Dose 220 MG; Start 12/26/18 at 09:00 Multivitamins/ Minerals (Theragran-M) 1 tab DAILY GTB Last administered on 01/01/19 08:21; Admin Dose 1 TAB; Start 12/26/18 at 09:00 Cefepime HCl 50 ml @ 100 mls/hr Q12 IVPB Last administered on 01/01/19 10:33; Admin Dose 100 MLS/HR; Start 12/25/18 at 23:00; Stop 01/01/19 at 22:59 Hydroxyzine HCl (Atarax) 25 mg BID GTB Last administered on 01/01/19 08:20; Admin Dose 25 MG; Start 12/27/18 at 09:00 Fluocinonide (Lidex 0.05% Cr) 1 applic BID TOP Last administered on 01/01/19 08:22; Admin Dose 1 APPLIC; Start 12/27/18 at 21:00; Stop 01/10/19 at 20:59 Furosemide (Lasix) 20 mg DAILY PO Last administered on 01/01/19 08:21; Admin Dose 20 MG; Start 12/30/18 at 09:00 Albuterol/ Ipratropium (Duoneb) 3 ml Q6H RESP THERAPY HHN Last administered on 01/01/19 07:31; Admin Dose 3 ML; Start 12/30/18 at 20:00 Albuterol/ Ipratropium (Duoneb) 3 ml Q3H RESP THERAPY PRN HHN SHORTNESS OF BREATH; Start 12/30/18 at 18:00 Carvedilol (Coreg) 6.25 mg BID GTB Last administered on 01/01/19 08:21; Admin Dose 6.25 MG; Start 12/30/18 at 21:00 Collagenase (Santyl) 1 applic DAILY TOP Last administered on 12/31/18 14:48; Admin Dose 1 APPLIC; Start 12/31/18 at 09:00 MAE ROSALES Jan 01, 2019 13:53
--- NOTE | 2019-01-01 14:30 | PN ---
DATE: 01/01/2019 SUBJECTIVE: Chart reviewed. The patient remains on 28% FIO2 via G-tube, saturating 97% and does not appear in acute distress. PHYSICAL EXAMINATION: VITAL SIGNS: Blood pressure 125/75, pulse 82, respiration 18, temperature 97.9. HEENT: Pupils are equal and react to light. NECK: Supple, no JVD noted, no cervical adenopathy noted. LUNGS: Decreased breath sounds at the bases. CARDIOVASCULAR: S1, S2 normal. ABDOMEN: Soft, nontender, no megaly or masses noted. G-tube in place. EXTREMITIES: No clubbing or cyanosis noted. NEUROLOGICAL: Encephalopathic. IMPRESSION: 1. Status post severe sepsis. 2. Urinary tract infection. 3. Likely healthcare-associated pneumonia. 4. History of intracranial bleed, status post craniotomy and DENTAL SCHEDULER shunt. 5. Chronic respiratory failure, tracheostomy dependent. 6. Dysphagia with G-tube placement. RECOMMENDATIONS: 1. Continue antibiotics. 2. Continue nutritional support. 3. Followup labs and x-ray. Dictated By: JAS PAYNE MD, MA/ROXANA Conf#: [id number] DID#: [id number] CC: NIA DOMINGO MD;*EndCC*
[2019-01-01 16:28] VITALS: BP 155/68; PULSE 79; RESP 18
--- NOTE | 2019-01-01 16:59 | CONS ---
Assessment/Plan Assessment/Plan Hospital Course (Demo Recall) assessment/impression - sepsis due to UTI - UTI due to proteus - contamination of blood cultures by coag negative Staph - h/o bacteremia due to MRSA in 10/2018 - h/o possible HCAP vs. 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) per [employer] - improving with Lidex recommendations - complete 7 day course of IV cefepime (12/25/2018-) today for UTI and possible pneumonia Consultation Date/Type/Reason Admit Date/Time Dec 25, 2018 at 00:18 Initial Consult Date 12/25/18 Type of Consult ID Requesting Provider: REGINA BUI Date/Time of Note DATE: 01/01/19 TIME: 16:58 24 HR Interval Summary Subjective hx not possible: pt non-verbal Exam/Review of Systems Exam Vitals Vital Signs Date Temp Pulse Resp B/P (MAP) Pulse Ox O2 O2 Flow FiO2 Time Delivery Rate 01/01/19 97.8 79 18 155/68 98 16:28 (97) 01/01/19 5.0 28 14:44 01/01/19 Aerosol 14:44 T Tube Intake and Output 12/31/18 12/31/18 01/01/19 1414:59 22:59 06:59 IntakeIntake Total 50 ml 1240 ml 991 ml OutputOutput Total 750 ml 1000 ml BalanceBalance 50 ml 490 ml -9 ml Constitutional: non-verbal, frail Psych: other Head: other Eyes: nl conjunctiva, nl lids ENMT: nl external ears & nose, nl nasal mucosa & septum, mucosa pink and moist Respiratory: normal air movement Cardiovascular: regular rate and rhythm Gastrointestinal: soft Genitourinary - Male: nl penis Musculoskeletal: nl extremities to inspection Extremities: normal pulses Neurological: unresponsive Results Result Diagram: 12/31/1851712/31/18517 Medications Medication Current Medications Acetaminophen (Tylenol Tab) 650 mg PRN PRN GTB TRACH TUBE CHANGE Last administered on 12/29/18 17:52; Admin Dose 650 MG; Start 12/25/18 at 12:30 Acetaminophen (Tylenol Tab) 650 mg Q4H PRN GTB MILD PAIN LEVEL 1-3; Start 12/25/18 at 12:30 Ascorbic Acid (Vitamin C) 500 mg DAILY GTB Last administered on 01/01/19 08:21; Admin Dose 500 MG; Start 12/26/18 at 09:00 Bisacodyl (Dulcolax Supp) 10 mg DAILY PRN [place] NEEDED; Start 12/25/18 at 12:30 Docusate Sodium (Colace) 100 mg QHS PO Last administered on 12/31/18 21:14; Admin Dose 100 MG; Start 12/25/18 at 21:00 Acetaminophen/ Hydrocodone Bitart ([place] (5/325)) 1 tab Q6H PRN GTB MODERATE PAIN LEVEL 4-6 Last administered on 12/25/18 23:40; Admin Dose 1 TAB; Start 12/25/18 at 13:00 Lansoprazole (Prevacid) 30 mg BID GTB Last administered on 01/01/19 08:21; Admin Dose 30 MG; Start 12/25/18 at 21:00 Lisinopril (Zestril) 10 mg DAILY GTB Last administered on 01/01/19 08:21; Admin Dose 10 MG; Start 12/25/18 at 12:30 Magnesium Hydroxide (Milk Of Mag) 30 ml Q24H GTB Last administered on 01/01/19 12:28; Admin Dose 30 ML; Start 12/25/18 at 12:30 Senna (Senokot) 2 tab BID GTB Last administered on 01/01/19 08:21; Admin Dose 2 TAB; Start 12/25/18 at 21:00 Sucralfate (Carafate Susp) 1 gm QID GTB Last administered on 01/01/19 12:28; Admin Dose 1 GM; Start 12/25/18 at 13:00 Valproate Sodium (Depakene Liquid Cup) 750 mg Q8H GTB Last administered on 01/01/19 12:28; Admin Dose 750 MG; Start 12/25/18 at 13:30 Zinc Sulfate (Zinc Sulfate) 220 mg DAILY GTB Last administered on 01/01/19 08:21; Admin Dose 220 MG; Start 12/26/18 at 09:00 Multivitamins/ Minerals (Theragran-M) 1 tab DAILY GTB Last administered on 01/01/19 08:21; Admin Dose 1 TAB; Start 12/26/18 at 09:00 Cefepime HCl 50 ml @ 100 mls/hr Q12 IVPB Last administered on 01/01/19 10:33; Admin Dose 100 MLS/HR; Start 12/25/18 at 23:00; Stop 01/01/19 at 22:59 Hydroxyzine HCl (Atarax) 25 mg BID GTB Last administered on 01/01/19 08:20; Admin Dose 25 MG; Start 12/27/18 at 09:00 Fluocinonide (Lidex 0.05% Cr) 1 applic BID TOP Last administered on 01/01/19 08:22; Admin Dose 1 APPLIC; Start 12/27/18 at 21:00; Stop 01/10/19 at 20:59 Furosemide (Lasix) 20 mg DAILY PO Last administered on 01/01/19 08:21; Admin Dose 20 MG; Start 12/30/18 at 09:00 Albuterol/ Ipratropium (Duoneb) 3 ml Q6H RESP THERAPY HHN Last administered on 01/01/19 14:43; Admin Dose 3 ML; Start 12/30/18 at 20:00 Albuterol/ Ipratropium (Duoneb) 3 ml Q3H RESP THERAPY PRN HHN SHORTNESS OF BREATH; Start 12/30/18 at 18:00 Carvedilol (Coreg) 6.25 mg BID GTB Last administered on 01/01/19 08:21; Admin Dose 6.25 MG; Start 12/30/18 at 21:00 Collagenase (Santyl) 1 applic DAILY TOP Last administered on 12/31/18 14:48; Admin Dose 1 APPLIC; Start 12/31/18 at 09:00 APRIL JORDAN M.D. Jan 01, 2019 16:59
[2019-01-01 20:52] VITALS: BP 141/70; PULSE 63; RESP 20
[2019-01-01] MEDS: DOCUSATE SODIUM 100 MG CAP PO SCH (20:52)
[2019-01-02] VITALS (7 sets, daily range): BP systolic 102–139; BP diastolic 55–78; PULSE 64–75; RESP 19–28
[2019-01-02] MEDS: ALBUTEROL/IPRATROPIUM (NEB) 3 ML AMP HHN SCH ×4 (00:10→21:58)
[2019-01-02] MEDS: VALPROIC ACID LIQUID CUP 250 MG/5 ML CUP GTB SCH ×3 (06:24→21:14)
[2019-01-02] MEDS: FUROSEMIDE 20 MG TAB PO SCH (08:36)
[2019-01-02] MEDS: COLLAGENASE 5 GM (UD JAR) TOP SCH (08:36)
[2019-01-02] MEDS: SUCRALFATE (100 MG/ML) 10ML CUP GTB SCH ×4 (08:36→21:12)
[2019-01-02] MEDS: ZINC SULFATE 220 MG CAP GTB SCH (08:36)
[2019-01-02] MEDS: MULTIVITAMINS/MINERALS TAB GTB SCH (08:37)
[2019-01-02] MEDS: ASCORBIC ACID 500 MG TAB GTB SCH (08:37)
[2019-01-02] MEDS: hydrOXYzine HCL 25 MG TAB GTB SCH ×2 (08:37→21:11)
[2019-01-02] MEDS: LISINOPRIL 10 MG TAB GTB SCH (08:37)
[2019-01-02] MEDS: SENNA TAB GTB SCH ×2 (08:37→21:12)
[2019-01-02] MEDS: FLUOCINONIDE 0.05% 15 GM CR TOP SCH ×2 (08:38→21:15)
[2019-01-02] MEDS: LANSOPRAZOLE 30 MG CAP GTB SCH ×2 (08:38→21:11)
--- NOTE | 2019-01-02 10:18 | PN ---
Date/Time of Note Date/Time of Note DATE: 01/02/19 TIME: 10:17 Assessment/Plan VTE Prophylaxis Risk score (from Ns)>0 risk: 6 SCD applied (from Nsg): Yes Pharmacological prophylaxis: LMWH Lines/Catheters IV Catheter Type (from Nrsg): Saline Lock Urinary Cath still in place: Yes Reason Cath still needed: skin wounds contaminated by urine Assessment/Plan Hospital Course -Sepsis secondary to bacteremia and urinary tract infection. Dr. Kiran is f ollowing in infection disease consultation. -Chronic respiratory failure with tracheostomy, patient is currently on T-tube. -Generalized rash, Dr. Bassett is following in dermatology consultation. Pre liminary scabies scrape is negative, continue Lidex. -Coronary artery disease, status post PTCA with stent placement -Ischemic cardiomyopathy -Diabetes -Dysphagia with G-tube -Dyslipidemia -History of right hemicraniectomy. -History of intracranial hemorrhage during last admission and evaluation by Dr. Espana in neurosurgery consultation with family decision against any aggressive surgical treatment. -Hx of Obesity -DNR status Result Diagram: 12/31/1851712/31/18517 Subjective 24 Hr Interval Summary Free Text/Dictation Patient has eyes open but is noncommunicative, trach in place Exam/Review of Systems Exam Vitals Vital Signs Date Temp Pulse Resp B/P (MAP) Pulse Ox O2 O2 Flow FiO2 Time Delivery Rate 01/02/19 75 28 T Tube 5.0 28 09:02 01/02/19 95 08:59 01/02/19 98.7 115/68 08:11 (84) Intake and Output 01/01/19 01/01/19 01/02/19 1515:00 23:00 07:00 OutputOutput Total 550 ml BalanceBalance -550 ml Constitutional: well developed Head: normocephalic, atraumatic Neck: supple Respiratory: diminished breath sounds Cardiovascular: regular rate and rhythm Gastrointestinal: soft, non-tender Extremities: normal pulses Medications Medication Current Medications Acetaminophen (Tylenol Tab) 650 mg PRN PRN GTB TRACH TUBE CHANGE Last administered on 12/29/18at 17:52; Admin Dose 650 MG; Start 12/25/18 at 12:30 Acetaminophen (Tylenol Tab) 650 mg Q4H PRN GTB MILD PAIN LEVEL 1-3; Start 12/25/18 at 12:30 Ascorbic Acid (Vitamin C) 500 mg DAILY GTB Last administered on 01/02/19 08:37; Admin Dose 500 MG; Start 12/26/18 at 09:00 Bisacodyl (Dulcolax Supp) 10 mg DAILY PRN [place] NEEDED; Start 12/25/18 at 12:30 Docusate Sodium (Colace) 100 mg QHS PO Last administered on 01/01/19 20:52; Admin Dose 100 MG; Start 12/25/18 at 21:00 Acetaminophen/ Hydrocodone Bitart ([place] (5/325)) 1 tab Q6H PRN GTB MODERATE PAIN LEVEL 4-6 Last administered on 12/25/18 23:40; Admin Dose 1 TAB; Start 12/25/18 at 13:00 Lansoprazole (Prevacid) 30 mg BID GTB Last administered on 01/02/19 08:38; Admin Dose 30 MG; Start 12/25/18 at 21:00 Lisinopril (Zestril) 10 mg DAILY GTB Last administered on 01/02/19 08:37; Admin Dose 10 MG; Start 12/25/18 at 12:30 Magnesium Hydroxide (Milk Of Mag) 30 ml Q24H GTB Last administered on 01/01/19 12:28; Admin Dose 30 ML; Start 12/25/18 at 12:30 Senna (Senokot) 2 tab BID GTB Last administered on 01/02/19 08:37; Admin Dose 2 TAB; Start 12/25/18 at 21:00 Sucralfate (Carafate Susp) 1 gm QID GTB Last administered on 01/02/19 08:36; Admin Dose 1 GM; Start 12/25/18 at 13:00 Valproate Sodium (Depakene Liquid Cup) 750 mg Q8H GTB Last administered on 01/02/19 06:24; Admin Dose 750 MG; Start 12/25/18 at 13:30 Zinc Sulfate (Zinc Sulfate) 220 mg DAILY GTB Last administered on 01/02/19 08:36; Admin Dose 220 MG; Start 12/26/18 at 09:00 Multivitamins/ Minerals (Theragran-M) 1 tab DAILY GTB Last administered on 01/02/19 08:37; Admin Dose 1 TAB; Start 12/26/18 at 09:00 Hydroxyzine HCl (Atarax) 25 mg BID GTB Last administered on 01/02/19 08:37; Admin Dose 25 MG; Start 12/27/18 at 09:00 Fluocinonide (Lidex 0.05% Cr) 1 applic BID TOP Last administered on 01/02/19 08:38; Admin Dose 1 APPLIC; Start 12/27/18 at 21:00; Stop 01/10/19 at 20:59 Furosemide (Lasix) 20 mg DAILY PO Last administered on 01/02/19 08:36; Admin Dose 20 MG; Start 12/30/18 at 09:00 Albuterol/ Ipratropium (Duoneb) 3 ml Q6H RESP THERAPY HHN Last administered on 01/02/19 08:58; Admin Dose 3 ML; Start 12/30/18 at 20:00 Albuterol/ Ipratropium (Duoneb) 3 ml Q3H RESP THERAPY PRN HHN SHORTNESS OF BREATH; Start 12/30/18 at 18:00 Carvedilol (Coreg) 6.25 mg BID GTB Last administered on 01/02/19 08:38; Admin Dose 6.25 MG; Start 12/30/18 at 21:00 Collagenase (Santyl) 1 applic DAILY TOP Last administered on 01/02/19 08:36; Admin Dose 1 APPLIC; Start 12/31/18 at 09:00 PARAS MURILLO Jan 02, 2019 10:18
[2019-01-02] MEDS: MAGNESIUM HYDROXIDE 30ML CUP GTB SCH (12:21)
--- NOTE | 2019-01-02 13:27 | CONS ---
Assessment/Plan Assessment/Plan Hospital Course (Demo Recall) IMP: 1.Cardiomyopathy--low EF 2.CHF-systolic acute on chronic 3.resp failure chonic s/p trach 4.encephalopathy-chronic 5.HTN-labile currently 6.UTI 7. h/o craniotomy 8. Fevers Recc: -Tele -serial ecg's -Contineu coreg/zestril at current dose -keep K>4 and Mg>2 -Continue abx's and f/u cx data -follow volume status closely on daily lasix diuresis Consultation Date/Type/Reason Admit Date/Time Dec 25, 2018 at 00:18 Initial Consult Date 12/25/18 Type of Consult Cardiology Reason for Consultation cardiomyopathy Requesting Provider: REGINA BUI Date/Time of Note DATE: 01/02/19 TIME: 13:26 Exam/Review of Systems Vital Signs Vitals Vital Signs Date Temp Pulse Resp B/P (MAP) Pulse Ox O2 O2 Flow FiO2 Time Delivery Rate 01/02/19 98.5 71 19 130/63 94 Trach 12:29 (85) Collar 01/02/19 5.0 28 09:02 Intake and Output 01/01/19 01/01/19 01/02/19 1414:59 22:59 06:59 OutputOutput Total 550 ml BalanceBalance -550 ml Exam Exam Review of Systems: CONSTITUTIONAL: No fevers, chills. PULMONARY: No sob CARDIOVASCULAR: No chest pain/palpitations GASTROINTESTINAL: No nausea/vomiting. GENITOURINARY: No hematuria/dysuria. MUSCULOSKELETAL: No myagias/arthalgias. PSYCHIATRIC: The patient denies depression. NEUROLOGIC: encaphalopathic Constitutional: alert Psych: no complaints Head: normocephalic ENMT: mucosa pink and moist Neck: supple, jvd (9 cm water) Respiratory: diminished breath sounds (at bases/B) Cardiovascular: regular rate and rhythm Gastrointestinal: soft, non-tender Musculoskeletal: muscle weakness (generalized) Extremities: edema (none) Neurological: unresponsive Labs Result Diagram: 12/31/1851712/31/18517 Medications Medications Current Medications Acetaminophen (Tylenol Tab) 650 mg PRN PRN GTB TRACH TUBE CHANGE Last administered on 12/29/18at 17:52; Admin Dose 650 MG; Start 12/25/18 at 12:30 Acetaminophen (Tylenol Tab) 650 mg Q4H PRN GTB MILD PAIN LEVEL 1-3; Start 12/25 at 12:30 Ascorbic Acid (Vitamin C) 500 mg DAILY GTB Last administered on 01/02/19 08:37; Admin Dose 500 MG; Start 12/26/18 at 09:00 Bisacodyl (Dulcolax Supp) [address] NEEDED; Start 12/25/18 at 12:30 Docusate Sodium (Colace) 100 mg QHS PO Last administered on 01/01/19 20:52; Admin Dose 100 MG; Start 12/25/18 at 21:00 Acetaminophen/ Hydrocodone Bitart ([place] (5/325)) 1 tab Q6H PRN GTB MODERATE PAIN LEVEL 4-6 Last administered on 12/25/18 23:40; Admin Dose 1 TAB; Start 12/25/18 at 13:00 Lansoprazole (Prevacid) 30 mg BID GTB Last administered on 01/02/19 08:38; Admin Dose 30 MG; Start 12/25/18 at 21:00 Lisinopril (Zestril) 10 mg DAILY GTB Last administered on 01/02/19 08:37; Admin Dose 10 MG; Start 12/25/18 at 12:30 Magnesium Hydroxide (Milk Of Mag) 30 ml Q24H GTB Last administered on 01/02/19 12:21; Admin Dose 30 ML; Start 12/25/18 at 12:30 Senna (Senokot) 2 tab BID GTB Last administered on 01/02/19 08:37; Admin Dose 2 TAB; Start 12/25/18 at 21:00 Sucralfate (Carafate Susp) 1 gm QID GTB Last administered on 01/02/19 12:21; Admin Dose 1 GM; Start 12/25/18 at 13:00 Valproate Sodium (Depakene Liquid Cup) 750 mg Q8H GTB Last administered on 01/02/19 12:22; Admin Dose 750 MG; Start 12/25/18 at 13:30 Zinc Sulfate (Zinc Sulfate) 220 mg DAILY GTB Last administered on 01/02/19 08:36; Admin Dose 220 MG; Start 12/26/18 at 09:00 Multivitamins/ Minerals (Theragran-M) 1 tab DAILY GTB Last administered on 01/02/19 08:37; Admin Dose 1 TAB; Start 12/26/18 at 09:00 Hydroxyzine HCl (Atarax) 25 mg BID GTB Last administered on 01/02/19 08:37; Admin Dose 25 MG; Start 12/27/18 at 09:00 Fluocinonide (Lidex 0.05% Cr) 1 applic BID TOP Last administered on 01/02/19 08:38; Admin Dose 1 APPLIC; Start 12/27/18 at 21:00; Stop 01/10/19 at 20:59 Furosemide (Lasix) 20 mg DAILY PO Last administered on 01/02/19 08:36; Admin Dose 20 MG; Start 12/30/18 at 09:00 Albuterol/ Ipratropium (Duoneb) 3 ml Q6H RESP THERAPY HHN Last administered on 01/02/19 08:58; Admin Dose 3 ML; Start 12/30/18 at 20:00 Albuterol/ Ipratropium (Duoneb) 3 ml Q3H RESP THERAPY PRN HHN SHORTNESS OF B REATH; Start 12/30/18 at 18:00 Carvedilol (Coreg) 6.25 mg BID GTB Last administered on 01/02/19 08:38; Admin Dose 6.25 MG; Start 12/30/18 at 21:00 Collagenase (Santyl) 1 applic DAILY TOP Last administered on 01/02/19 08:36; Admin Dose 1 APPLIC; Start 12/31/18 at 09:00 MAE ROSALES 14, 2019 13:27
--- NOTE | 2019-01-02 15:33 | CONS ---
[facility] [place] Patient Name: Johan Arroyo Unit Number: [id number] Date of : 1965 Patient Status: Admitted Inpatient Attending Doctor: Chaparro Cortez MD Edit: APRIL KELLY M.D. on 01/03/19 @ 17:57 Leticia: I discussed the management with COMMISSION SPECIALIST Linda and agree Assessment/Plan Assessment/Plan Hospital Course (Demo Recall) assessment/impression - sepsis due to UTI - UTI due to proteus - contamination of blood cultures by coag negative Staph - h/o bacteremia due to MRSA in 10/2018 - h/o possible HCAP vs. 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 Kelly. Consultation Date/Type/Reason Admit Date/Time Dec 25, 2018 at 00:18 Initial Consult Date 12/25/18 Type of Consult ID Requesting Provider: REGINA BUI Date/Time of Note DATE: 01/02/19 TIME: 15:31 24 HR Interval Summary Free Text/Dictation per nsg, she has suctioned large amounts today and yesterday. remains afebrile, wbc 9.5. Exam/Review of Systems Exam Vitals Vital Signs Date Temp Pulse Resp B/P (MAP) Pulse Ox O2 O2 Flow FiO2 Time Delivery Rate 01/02/19 98.5 70 22 105/55 95 Trach 15:29 (72) Collar 01/02/19 5.0 28 14:55 Intake and Output 01/01/19 01/01/19 01/02/19 1515:00 23:00 07:00 OutputOutput Total 550 ml BalanceBalance -550 ml Allergies Coded Allergies No Known Drug Allergies (Verified Allergy, Mild, 12/25/18) Exam Constitutional: well developed, non-verbal, frail, other (chronically debilitated; laying flat as the RN is at bedside preparing to clean him) Psych: other (unable to assess) Head: other (R cranial defect s/p craniectomy) Eyes: nl lids ENMT: nl external ears & nose, nl nasal mucosa & septum, other (unable to examine OP) Neck: other (trach midline and connected to T-piece) Respiratory: diminished breath sounds Cardiovascular: regular rate and rhythm, nl pulses No edema Gastrointestinal: soft, non-tender, other (GT site is c/d/i, currently clamped) Genitouriary - Male: nl penis, nl scrotum Musculoskeletal: nl extremities to inspection Extremities: normal pulses Neurological: unresponsive (Obtunded) Skin: nl turgor, other (+sacrococcyx decub; +tattoos) Results Result Diagram: 12/31/1851712/31/18517 Medications Medication Current Medications Acetaminophen (Tylenol Tab) 650 mg PRN PRN GTB TRACH TUBE CHANGE Last administered on 12/29/18at 17:52; Admin Dose 650 MG; Start 12/25/18 at 12:30 Acetaminophen (Tylenol Tab) 650 mg Q4H PRN GTB MILD PAIN LEVEL 1-3; Start 12/25/18 at 12:30 Ascorbic Acid (Vitamin C) 500 mg DAILY GTB Last administered on 01/02/19at 08:37; Admin Dose 500 MG; Start 12/26/18 at 09:00 Bisacodyl (Dulcolax Supp) 10 mg DAILY PRN MN NEEDED; Start 12/25/18 at 12:30 Docusate Sodium (Colace) 100 mg QHS PO Last administered on 01/01/19 20:52; Admin Dose 100 MG; Start 12/25/18 at 21:00 Acetaminophen/ Hydrocodone Bitart ([place] (5/325)) 1 tab Q6H PRN GTB MODERATE PAIN LEVEL 4-6 Last administered on 12/25/18 23:40; Admin Dose 1 TAB; Start 12/25/18 at 13:00 Lansoprazole (Prevacid) 30 mg BID GTB Last administered on 01/02/19 08:38; Admin Dose 30 MG; Start 12/25/18 at 21:00 Lisinopril (Zestril) 10 mg DAILY GTB Last administered on 01/02/19 08:37; Admi n Dose 10 MG; Start 12/25/18 at 12:30 Magnesium Hydroxide (Milk Of Mag) 30 ml Q24H GTB Last administered on 01/02/19 12:21; Admin Dose 30 ML; Start 12/25/18 at 12:30 Senna (Senokot) 2 tab BID GTB Last administered on 01/02/19 08:37; Admin Dose 2 TAB; Start 12/25/18 at 21:00 Sucralfate (Carafate Susp) 1 gm QID GTB Last administered on 01/02/19 12:21; Admin Dose 1 GM; Start 12/25/18 at 13:00 Valproate Sodium (Depakene Liquid Cup) 750 mg Q8H GTB Last administered on 01/02/19 12:22; Admin Dose 750 MG; Start 12/25/18 at 13:30 Zinc Sulfate (Zinc Sulfate) 220 mg DAILY GTB Last administered on 01/02/19 08:36; Admin Dose 220 MG; Start 12/26/18 at 09:00 Multivitamins/ Minerals (Theragran-M) 1 tab DAILY GTB Last administered on 01/02/19 08:37; Admin Dose 1 TAB; Start 12/26/18 at 09:00 Hydroxyzine HCl (Atarax) 25 mg BID GTB Last administered on 01/02/19 08:37; Admin Dose 25 MG; Start 12/27/18 at 09:00 Fluocinonide (Lidex 0.05% Cr) 1 applic BID TOP Last administered on 01/02/19 08:38; Admin Dose 1 APPLIC; Start 12/27/18 at 21:00; Stop 01/10/19 at 20:59 Furosemide (Lasix) 20 mg DAILY PO Last administered on 01/02/19 08:36; Admin Dose 20 MG; Start 12/30/18 at 09:00 Albuterol/ Ipratropium (Duoneb) 3 ml Q6H RESP THERAPY HHN Last administered on 01/02/19 14:53; Admin Dose 3 ML; Start 12/30/18 at 20:00 Albuterol/ Ipratropium (Duoneb) 3 ml Q3H RESP THERAPY PRN HHN SHORTNESS OF BREATH; Start 12/30/18 at 18:00 Carvedilol (Coreg) 6.25 mg BID GTB Last administered on 01/02/19 08:38; Admin Dose 6.25 MG; Start 12/30/18 at 21:00 Collagenase (Santyl) 1 applic DAILY TOP Last administered on 01/02/19 08:36; Admin Dose 1 APPLIC; Start 12/31/18 at 09:00 LENNIE LAM NP Jan 02, 2019 15:33
--- NOTE | 2019-01-02 17:22 | PN ---
DATE: 01/02/2019 SUBJECTIVE: Chart reviewed. The patient remains on 28% FIO2 via G-tube and saturating 96% and does not appear in acute distress. PHYSICAL EXAMINATION: VITAL SIGNS: Blood pressure 130/63, pulse 71, respiration 19, temperature 98.5. HEENT: Pupils are equal and react to light. NECK: Supple, no JVD noted. No cervical adenopathy noted. LUNGS: Decreased breath sounds at the bases. CARDIOVASCULAR: S1, S2 normal. ABDOMEN: Soft, nontender. No megaly or masses noted. G-tube in place. EXTREMITIES: No clubbing or cyanosis noted. NEUROLOGICAL: Encephalopathic. IMPRESSION: 1. Status post urosepsis. 2. Urinary tract infection. 3. Likely healthcare-associated pneumonia. 4. History of intracranial bleed status post craniotomy and RESEARCH PHYSICIAN shunt. 5. Tracheostomy-dependent respiratory failure. 6. Dysphagia. RECOMMENDATIONS: 1. Continue current treatment. 2. Continue usual support. 3. Cardiology noted. 4. Followup labs and x-ray. Dictated By: JAS PAYNE MD, MA/ROXANA Conf#: [id number] DID#: [id number] CC: NIA DOMINGO MD;*EndCC*
[2019-01-02] MEDS: DOCUSATE SODIUM 100 MG CAP PO SCH (21:11)
[2019-01-03 00:25] VITALS: BP_SYST 12; BP_SYST 120; BP_DIAS 60; PULSE 75; RESP 20
[2019-01-03] MEDS: ALBUTEROL/IPRATROPIUM (NEB) 3 ML AMP HHN SCH ×3 (02:11→13:36)
[2019-01-03 04:14] VITALS: BP 145/71; PULSE 75; RESP 20
[2019-01-03] MEDS: VALPROIC ACID LIQUID CUP 250 MG/5 ML CUP GTB SCH ×2 (05:30→13:05)
[2019-01-03 07:40] VITALS: BP 137/70; PULSE 75; RESP 18
[2019-01-03] MEDS: ZINC SULFATE 220 MG CAP GTB SCH (09:04)
[2019-01-03] MEDS: SENNA TAB GTB SCH (09:04)
[2019-01-03] MEDS: LANSOPRAZOLE 30 MG CAP GTB SCH (09:04)
[2019-01-03] MEDS: SUCRALFATE (100 MG/ML) 10ML CUP GTB SCH ×3 (09:04→17:06)
[2019-01-03] MEDS: ASCORBIC ACID 500 MG TAB GTB SCH (09:04)
[2019-01-03] MEDS: COLLAGENASE 5 GM (UD JAR) TOP SCH (09:04)
[2019-01-03] MEDS: MULTIVITAMINS/MINERALS TAB GTB SCH (09:04)
[2019-01-03] MEDS: FUROSEMIDE 20 MG TAB PO SCH (09:05)
[2019-01-03] MEDS: LISINOPRIL 10 MG TAB GTB SCH (09:05)
[2019-01-03] MEDS: FLUOCINONIDE 0.05% 15 GM CR TOP SCH (09:06)
[2019-01-03] MEDS: hydrOXYzine HCL 25 MG TAB GTB SCH (09:06)
--- NOTE | 2019-01-03 10:34 | CONS ---
Assessment/Plan Assessment/Plan Hospital Course (Demo Recall) IMP: 1.Cardiomyopathy--low EF 2.CHF-systolic acute on chronic 3.resp failure chonic s/p trach 4.encephalopathy-chronic 5.HTN-labile currently 6.UTI 7. h/o craniotomy 8. Fevers Recc: -Tele -serial ecg's -Contineu coreg/zestril at current dose and follow reasonable BP closely -keep K>4 and Mg>2 -Continue abx's and f/u cx data -follow volume status closely on daily lasix diuresis Consultation Date/Type/Reason Admit Date/Time Dec 25, 2018 at 00:18 Initial Consult Date 12/25/18 Type of Consult Cardiology Reason for Consultation CHF/cardiomyopathy Requesting Provider: REGINA BUI Date/Time of Note DATE: 01/03/19 TIME: 10:31 Exam/Review of Systems Vital Signs Vitals Vital Signs Date Temp Pulse Resp B/P (MAP) Pulse Ox O2 O2 Flow FiO2 Time Delivery Rate 01/03/19 96 5.0 28 08:16 01/03/19 83 20 Aerosol 08:11 T Tube 01/03/19 98.0 137/70 07:40 (92) Intake and Output 01/02/19 01/02/19 01/03/19 1515:00 23:00 07:00 OutputOutput Total 900 ml 550 ml BalanceBalance -900 ml -550 ml Exam Exam Review of Systems: CONSTITUTIONAL: No fevers, chills. PULMONARY: No sob CARDIOVASCULAR: No chest pain/palpitations GASTROINTESTINAL: No nausea/vomiting. GENITOURINARY: No hematuria/dysuria. MUSCULOSKELETAL: No myagias/arthalgias. PSYCHIATRIC: The patient denies depression. NEUROLOGIC: encephalopathic, nonrespsonsive Constitutional: other (encephalopathic) Head: other (s/p craniomtomy) ENMT: mucosa pink and moist Neck: supple, jvd Respiratory: diminished breath sounds Cardiovascular: regular rate and rhythm Gastrointestinal: soft, non-tender Musculoskeletal: muscle tone Extremities: edema (none) Neurological: other (No focal deficits) Labs Result Diagram: 12/31/1851712/31/18517 Medications Medications Current Medications Acetaminophen (Tylenol Tab) 650 mg PRN PRN GTB TRACH TUBE CHANGE Last administered on 12/29/18at 17:52; Admin Dose 650 MG; Start 7/6/19 at 12:30 Acetaminophen (Tylenol Tab) 650 mg Q4H PRN GTB MILD PAIN LEVEL 1-3; Start 12/25/18 at 12:30 Ascorbic Acid (Vitamin C) 500 mg DAILY GTB Last administered on 01/03/19 09:04; Admin Dose 500 MG; Start 12/26/18 at 09:00 Bisacodyl (Dulcolax Supp) 10 mg DAILY PRN [place] NEEDED; Start 12/25/18 at 12:30 Docusate Sodium (Colace) 100 mg QHS PO Last administered on 01/02/19 21:11; Admin Dose 100 MG; Start 12/25/18 at 21:00 Acetaminophen/ Hydrocodone Bitart ([place] (5/325)) 1 tab Q6H PRN GTB MODERATE PAIN LEVEL 4-6 Last administered on 12/25/18 23:40; Admin Dose 1 TAB; Start 12/25/18 at 13:00 Lansoprazole (Prevacid) 30 mg BID GTB Last administered on 01/03/19 09:04; Admin Dose 30 MG; Start 12/25/18 at 21:00 Lisinopril (Zestril) 10 mg DAILY GTB Last administered on 01/03/19 09:05; Admin Dose 10 MG; Start 12/25/18 at 12:30 Magnesium Hydroxide (Milk Of Mag) 30 ml Q24H GTB Last administered on 01/02/19 12:21; Admin Dose 30 ML; Start 12/25/18 at 12:30 Senna (Senokot) 2 tab BID GTB Last administered on 01/03/19 09:04; Admin Dose 2 TAB; Start 12/25/18 at 21:00 Sucralfate (Carafate Susp) 1 gm QID GTB Last administered on 01/03/19 09:04; Admin Dose 1 GM; Start 12/25/18 at 13:00 Valproate Sodium (Depakene Liquid Cup) 750 mg Q8H GTB Last administered on 01/03/19 05:30; Admin Dose 750 MG; Start 12/25/18 at 13:30 Zinc Sulfate (Zinc Sulfate) 220 mg DAILY GTB Last administered on 01/03/19 09:04; Admin Dose 220 MG; Start 12/26/18 at 09:00 Multivitamins/ Minerals (Theragran-M) 1 tab DAILY GTB Last administered on 01/03/19 09:04; Admin Dose 1 TAB; Start 12/26/18 at 09:00 Hydroxyzine HCl (Atarax) 25 mg BID GTB Last administered on 01/03/19 09:06; Admin Dose 25 MG; Start 12/27/18 at 09:00 Fluocinonide (Lidex 0.05% Cr) 1 applic BID TOP Last administered on 01/03/19 09:06; Admin Dose 1 APPLIC; Start 12/27/18 at 21:00; Stop 01/10/19 at 20:59 Furosemide (Lasix) 20 mg DAILY PO Last administered on 01/03/19 09:05; Admin Dose 20 MG; Start 12/30/18 at 09:00 Albuterol/ Ipratropium (Duoneb) 3 ml Q6H RESP THERAPY HHN Last administered on 01/03/19 08:11; Admin Dose 3 ML; Start 12/30/18 at 20:00 Albuterol/ Ipratropium (Duoneb) 3 ml Q3H RESP THERAPY PRN HHN SHORTNESS OF BREATH; Start 12/30/18 at 18:00 Carvedilol (Coreg) 6.25 mg BID GTB Last administered on 01/03/19 09:06; Admin Dose 6.25 MG; Start 12/30/18 at 21:00 Collagenase (Santyl) 1 applic DAILY TOP Last administered on 01/03/19 09:04; Admin Dose 1 APPLIC; Start 12/31/18 at 09:00 MAE ROSALES Jan 03, 2019 10:34
--- NOTE | 2019-01-03 11:06 | CONS ---
Consultation Date/Type/Reason Admit Date/Time Dec 25, 2018 at 00:18 Initial Consult Date 12/25/18 Type of Consult Pulmonary Patient's condition is stable. Has remained hemodynamically stable. General exam; middle-aged male, morbidly obese, on T-piece via tracheostomy, currently in no distress. Patient remains noncommunicative and unresponsive. H EENT exam; supple neck, no JVD. No lymphadenopathy. Midline trachea. No thyromegaly. Tracheostomy in place. Attached to T-piece. Patient has fair dentition. There is a right parietal skull depression. Chest exam; clear to auscultation. S1-S2 audible, no murmurs. Regular rhythm. Abdomen exam; soft, no organomegaly. G-tube in place. Bowel sounds are audible. Extremity exam; no peripheral edema clubbing. CRATE BUILDER exam; patient remains unresponsive. Assessment and recommendations; 1. Patient with history of chronic respiratory failure maintained on T-piece as well as history of prior intracranial hemorrhage with right parietal craniotomy admitted for sepsis from UTI and pneumonia. Currently on appropriate antimicrobial regimen. 2. History of stable seizure disorder. 3. History of hydrocephalus status post RCIS shunt placement. 4. Mild CHF. Continue current supportive care. Antibiotics per ID recommendations. Requesting Provider: REGINA BUI Date/Time of Note DATE: 01/03/19 TIME: 11:05 24 HR Interval Summary Free Text/Dictation Patient's condition is stable. Remains noncommunicative. Has remained hemodynamically stable. No untoward events reported. No seizure activity reported. General exam; middle-aged male, on T-piece via tracheostomy. Currently no distress. Noncommunicative. HEENT exam; supple neck, no JVD. No lymphadenopathy. Midline trachea. No thyromegaly. Patient has fair dentition. Tracheostomy in place. There is a stable right parietal skull depression. Chest exam; clear to auscultation. S1-S2 audible, no murmurs. Regular rhythm. Abdomen exam; soft, protuberant. No organomegaly. G-tube in place. Bowel sounds are audible. Extremity exam; no peripheral edema clubbing. CRATE BUILDER exam; patient remains noncommunicative. Assessment and recommendations; 1. 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 2. Stable seizure disorder. Continue current supportive care. Patient awaiting transfer to [facility]. Prognosis is poor. Exam/Review of Systems Exam Vitals Vital Signs Date Temp Pulse Resp B/P (MAP) Pulse Ox O2 O2 Flow FiO2 Time Delivery Rate 01/03/19 96 5.0 28 08:16 01/03/19 83 20 Aerosol 08:11 T Tube 01/03/19 98.0 137/70 07:40 (92) Intake and Output 01/02/19 01/02/19 01/03/19 1515:00 23:00 07:00 OutputOutput Total 900 ml 550 ml BalanceBalance -900 ml -550 ml Results Result Diagram: 12/31/1851712/31/18517 Medications Medication Current Medications Acetaminophen (Tylenol Tab) 650 mg PRN PRN GTB TRACH TUBE CHANGE Last administered on 12/29/18at 17:52; Admin Dose 650 MG; Start 12/25/18 at 12:30 Acetaminophen (Tylenol Tab) 650 mg Q4H PRN GTB MILD PAIN LEVEL 1-3; Start 12/25/18 at 12:30 Ascorbic Acid (Vitamin C) 500 mg DAILY GTB Last administered on 01/03/19at 09:04; Admin Dose 500 MG; Start 12/26/18 at 09:00 Bisacodyl (Dulcolax Supp) 10 mg DAILY PRN LA NEEDED; Start 12/25/18 at 12:30 Docusate Sodium (Colace) 100 mg QHS PO Last administered on 01/02/19at 21:11; Admin Dose 100 MG; Start 12/25/18 at 21:00 Acetaminophen/ Hydrocodone Bitart ([place] (5/325)) 1 tab Q6H PRN GTB MODERATE PAIN LEVEL 4-6 Last administered on 12/25/18at 23:40; Admin Dose 1 TAB; Start 12/25/18 at 13:00 Lansoprazole (Prevacid) 30 mg BID GTB Last administered on 01/03/19at 09:04; Admin Dose 30 MG; Start 12/25/18 at 21:00 Lisinopril (Zestril) 10 mg DAILY GTB Last administered on 01/03/19at 09:05; Admin Dose 10 MG; Start 12/25/18 at 12:30 Magnesium Hydroxide (Milk Of Mag) 30 ml Q24H GTB Last administered on 01/02/19 12:21; Admin Dose 30 ML; Start 12/25/18 at 12:30 Senna (Senokot) 2 tab BID GTB Last administered on 01/03/19 09:04; Admin Dose 2 TAB; Start 12/25/18 at 21:00 Sucralfate (Carafate Susp) 1 gm QID GTB Last administered on 01/03/19 09:04; Admin Dose 1 GM; Start 12/25/18 at 13:00 Valproate Sodium (Depakene Liquid Cup) 750 mg Q8H GTB Last administered on 01/03/19 05:30; Admin Dose 750 MG; Start 12/25/18 at 13:30 Zinc Sulfate (Zinc Sulfate) 220 mg DAILY GTB Last administered on 01/03/19 09:04; Admin Dose 220 MG; Start 12/26/18 at 09:00 Multivitamins/ Minerals (Theragran-M) 1 tab DAILY GTB Last administered on 01/03/19 09:04; Admin Dose 1 TAB; Start 12/26/18 at 09:00 Hydroxyzine HCl (Atarax) 25 mg BID GTB Last administered on 01/03/19 09:06; Admin Dose 25 MG; Start 12/27/18 at 09:00 Fluocinonide (Lidex 0.05% Cr) 1 applic BID TOP Last administered on 01/03/19 09:06; Admin Dose 1 APPLIC; Start 12/27/18 at 21:00; Stop 01/10/19 at 20:59 Furosemide (Lasix) 20 mg DAILY PO Last administered on 01/03/19 09:05; Admin Dose 20 MG; Start 12/30/18 at 09:00 Albuterol/ Ipratropium (Duoneb) 3 ml Q6H RESP THERAPY HHN Last administered on 01/03/19 08:11; Admin Dose 3 ML; Start 12/30/18 at 20:00 Albuterol/ Ipratropium (Duoneb) 3 ml Q3H RESP THERAPY PRN HHN SHORTNESS OF BREATH; Start 12/30/18 at 18:00 Carvedilol (Coreg) 6.25 mg BID GTB Last administered on 01/03/19 09:06; Admin Dose 6.25 MG; Start 12/30/18 at 21:00 Collagenase (Santyl) 1 applic DAILY TOP Last administered on 01/03/19at 09:04; Admin Dose 1 APPLIC; Start 12/31/18 at 09:00 MER CHRIS Jan 03, 2019 11:06
[2019-01-03 11:43] VITALS: BP 117/63; PULSE 80; RESP 18
--- NOTE | 2019-01-03 12:54 | DS ---
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 Hospital Course Patient [facility] to [facility] -Sepsis secondary to bacteremia and urinary tract infection. Dr. Kiran is following in infection disease consultation. -Chronic respiratory failure with tracheostomy, patient is currently on T-tube. 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 Dr. Bassett is following in dermatology consultation. Preliminary scabies scrape is negative. -Coronary artery disease, status post PTCA with stent placement -Ischemic cardiomyopathy -Diabetes -Dysphagia with G-tube -Dyslipidemia -History of right hemicraniectomy. -History of intracranial hemorrhage during last admission and evaluation by Dr. Espana in neurosurgery consultation with family decision against any aggressive surgical treatment. -Hx of Obesity -DNR status Plan of care discussed with Dr. Cortez. Home Meds Reported Medications Lisinopril* (Lisinopril*) 10 Mg Tablet, 10 MG GTB DAILY, #30 TAB HOLD FOR SBP<110 OR HR<60 12/25/18 Docusate Sodium* (Colace*) 100 Mg Capsule, 100 MG GTB QHS, #30 CAP 12/25/18 Zinc Sulfate* (Zinc Sulfate*) 220 Mg Tablet, 220 MG GTB DAILY, TAB 12/25/18 Ascorbic Acid (Vitamin C) 500 Mg Tab, 500 MG GTB DAILY, TAB 12/25/18 Multivitamin with Minerals (Multivitamins with Minerals) 1 Each Tablet, 1 EACH GTB DAILY, TAB 12/25/18 Insulin Lispro (Humalog) 100 Unit/1 Ml Cartridge, 0 SQ SLIDING SCALE, EA IF BS 71-150=0, 151-200=1 UNIT,201-250=2 UNITS,251-300=3 UNITS,301-350=4 UNITS,351-400=5 UNITS,>400=6 UNITS AND CALL MD. 12/25/18 Na Phos,M-B/Na Phos,Di-Ba (Fleet Enema Extra) Unknown Strength Enema, 1 APPLIC RC Q2D, ENEMA 06/30/18 Bisacodyl* (Bisacodyl*) 10 Mg Supp, 10 MG WA DAILY PRN for NEEDED, SUPP 06/30/18 Magnesium Hydroxide* (Milk Of Magnesia*) 400 Mg/5 Ml Oral.susp, 30 ML GTB Q24H for CONSTIPATION, ML 06/30/18 Sennosides* (Senna Lax*) 8.6 Mg Tablet, 2 TAB GTB BID, TAB 06/30/18 Insulin NPH Human Isophane (Humulin N) 100 Unit/1 Ml Vial, 28 UNIT SQ Q8H, VIAL 06/30/18 Hydrocodone/Acetaminophen ([place] 5-325 Tablet) 1 Each Tablet, 1 EACH GTB Q6H, TAB NEEDED FOR PAIN LEVEL 7-03/0106/30/18 Acetaminophen* (Tylenol*) 500 Mg Tab, 1000 MG GTB Q4H PRN for PAIN 4-11/29, TAB 06/30/18 Acetaminophen* (Tylenol*) 325 Mg Tablet, 650 MG GTB PRN PRN for TRACH TUBE CHANGE, TAB AND PAIN MANAGEMENT 06/30/18 Acetaminophen* (Tylenol*) 325 Mg Tablet, 650 MG GTB Q4H PRN for MILD PAIN LEVEL 1-3, TAB AND FEVER 100 AND ABOVE 06/30/18 Amino Acids/Protein Hydrolys (PRO-STAT LIQUID) 30 Ml Liquid.pkt, 30 ML GTB DAILY SUGAR FREE 06/30/18 Carvedilol* (Carvedilol*) 3.125 Mg Tablet, 3.125 MG GTB BID, #60 TAB HOLD IF SBP<110 OR HR<60 06/30/18 Valproic Acid* (Valproic Acid* Liq) 250 Mg/5 Ml Syrup, 15 ML GTB Q8H, ML 06/30/18 Sucralfate* (Carafate*) 1 Gm/10 Ml Susp, 1 GM GTB QID, EA 06/30/18 Lansoprazole* (Lansoprazole*) 30 Mg Capsule., 30 MG GTB BID, CAP 06/30/18 Lactobacillus Acidophilus (Acidophilus Lactobacillus) 1 Each Capsule, 1 EACH GTB DAILY, CAP 06/30/18 Primary Care Provider Chaparro Cortez MD Time spent on discharge: > 30 minutes SETH AVENDANO Jan 03, 2019 12:54
[2019-01-03] MEDS: MAGNESIUM HYDROXIDE 30ML CUP GTB SCH (13:04)
[2019-01-03 16:21] VITALS: BP 123/71; PULSE 78; RESP 18
--- NOTE | 2019-01-03 17:58 | CONS ---
Assessment/Plan Assessment/Plan Hospital Course (Demo Recall) assessment/impression - s/p sepsis due to UTI, resolved - s/p UTI due to proteus, resolved - s/p contamination of blood cultures by coag negative Staph - h/o bacteremia due to MRSA in 10/2018 - h/o possible HCAP vs. 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) per Store Sales Manager - improving with Lidex recommendations - Monitor off antibiotics; Pt completed IV cefepime (12/25/2018-01/01/19) for UTI and possible pneumonia Consultation Date/Type/Reason Admit Date/Time Dec 25, 2018 at 00:18 Initial Consult Date 12/25/18 Type of Consult ID Requesting Provider: REGINA BUI Date/Time of Note DATE: 01/03/19 TIME: 17:58 24 HR Interval Summary Subjective hx not possible: pt non-verbal Exam/Review of Systems Exam Vitals Vital Signs Date Temp Pulse Resp B/P (MAP) Pulse Ox O2 O2 Flow FiO2 Time Delivery Rate 01/03/19 78 20 98 Aerosol 5.0 28 17:00 T Tube 01/03/19 98.0 123/71 16:21 (88) Intake and Output 01/02/19 01/02/19 01/03/19 1515:00 23:00 07:00 OutputOutput Total 900 ml 550 ml BalanceBalance -900 ml -550 ml Constitutional: non-verbal, frail Psych: other (unresponsive) Head: other (s/p craniectomy) Eyes: nl conjunctiva, nl lids, nl sclera ENMT: nl external ears & nose, nl nasal mucosa & septum Neck: other (trach) Respiratory: clear to auscultation Cardiovascular: nl pulses Gastrointestinal: soft, non-tender, other (GT); No tender Genitourinary - Male: other (FC) Musculoskeletal: other (contractured upper extremities); No swelling Extremities: No edema Neurological: unresponsive Skin: rash or lesions (stage II decub) Results Result Diagram: 12/31/1851712/31/18517 Medications Medication Current Medications Acetaminophen (Tylenol Tab) 650 mg PRN PRN GTB TRACH TUBE CHANGE Last administered on 12/29/18 17:52; Admin Dose 650 MG; Start 12/25/18 at 12:30 Acetaminophen (Tylenol Tab) 650 mg Q4H PRN GTB MILD PAIN LEVEL 1-3; Start 12/25/18 at 12:30 Ascorbic Acid (Vitamin C) 500 mg DAILY GTB Last administered on 01/03/19 09:04; Admin Dose 500 MG; Start 12/26/18 at 09:00 Bisacodyl (Dulcolax Supp) 10 mg DAILY PRN [place] NEEDED; Start 12/25/18 at 12:30 Docusate Sodium (Colace) 100 mg QHS PO Last administered on 01/02/19 21:11; Admin Dose 100 MG; Start 12/25/18 at 21:00 Acetaminophen/ Hydrocodone Bitart ([place] (5/325)) 1 tab Q6H PRN GTB MODERATE PAIN LEVEL 4-6 Last administered on 12/25/18 23:40; Admin Dose 1 TAB; Start 12/25/18 at 13:00 Lansoprazole (Prevacid) 30 mg BID GTB Last administered on 01/03/19 09:04; Admin Dose 30 MG; Start 12/25/18 at 21:00 Lisinopril (Zestril) 10 mg DAILY GTB Last administered on 01/03/19 09:05; Admin Dose 10 MG; Start 12/25/18 at 12:30 Magnesium Hydroxide (Milk Of Mag) 30 ml Q24H GTB Last administered on 01/03/19 13:04; Admin Dose 30 ML; Start 12/25/18 at 12:30 Senna (Senokot) 2 tab BID GTB Last administered on 01/03/19 09:04; Admin Dose 2 TAB; Start 12/25/18 at 21:00 Sucralfate (Carafate Susp) 1 gm QID GTB Last administered on 01/03/19 17:06; Admin Dose 1 GM; Start 12/25/18 at 13:00 Valproate Sodium (Depakene Liquid Cup) 750 mg Q8H GTB Last administered on 01/03/19 13:05; Admin Dose 750 MG; Start 12/25/18 at 13:30 Zinc Sulfate (Zinc Sulfate) 220 mg DAILY GTB Last administered on 01/03/19 0 9:04; Admin Dose 220 MG; Start 12/26/18 at 09:00 Multivitamins/ Minerals (Theragran-M) 1 tab DAILY GTB Last administered on 01/03/19 09:04; Admin Dose 1 TAB; Start 12/26/18 at 09:00 Hydroxyzine HCl (Atarax) 25 mg BID GTB Last administered on 01/03/19 09:06; Admin Dose 25 MG; Start 12/27/18 at 09:00 Fluocinonide (Lidex 0.05% Cr) 1 applic BID TOP Last administered on 01/03/19 09:06; Admin Dose 1 APPLIC; Start 12/27/18 at 21:00; Stop 01/10/19 at 20:59 Furosemide (Lasix) 20 mg DAILY PO Last administered on 01/03/19 09:05; Admin Dose 20 MG; Start 12/30/18 at 09:00 Albuterol/ Ipratropium (Duoneb) 3 ml Q6H RESP THERAPY HHN Last administered on 01/03/19 13:36; Admin Dose 3 ML; Start 12/30/18 at 20:00 Albuterol/ Ipratropium (Duoneb) 3 ml Q3H RESP THERAPY PRN HHN SHORTNESS OF BREATH; Start 12/30/18 at 18:00 Carvedilol (Coreg) 6.25 mg BID GTB Last administered on 01/03/19 09:06; Admin Dose 6.25 MG; Start 12/30/18 at 21:00 Collagenase (Santyl) 1 applic DAILY TOP Last administered on 01/03/19 09:04; Admin Dose 1 APPLIC; Start 12/31/18 at 09:00 APRIL JORDAN M.D. Jan 03, 2019 17:58
== END 2019-01-03 18:10 | DRG 871 ==
LOC: E/R 23:37 → 6WM 12-25 00:18
PROVIDERS: ADMIT Internal Medicine; ATTEND Internal Medicine
DX: A41.9 Sepsis, unspecified organism (principal); J18.9 Pneumonia, unspecified organism; I50.23 Acute on chronic systolic (congestive) heart failure; N39.0 Urinary tract infection, site not specified; J96.10 Chronic respiratory failure, unspecified whether with hypoxia or hypercapnia; G93.40 Encephalopathy, unspecified; R65.20 Severe sepsis without septic shock; B96.1 Klebsiella pneumoniae [K. pneumoniae] as the cause of diseases classified elsewhere; Z93.0 Tracheostomy status; Z98.2 Presence of cerebrospinal fluid drainage device; E11.9 Type 2 diabetes mellitus without complications; R13.10 Dysphagia, unspecified; E78.5 Hyperlipidemia, unspecified; Z86.73 Personal history of transient ischemic attack (TIA), and cerebral infarction without residual deficits; Z66 Do not resuscitate; I45.10 Unspecified right bundle-branch block; I25.5 Ischemic cardiomyopathy; I11.0 Hypertensive heart disease with heart failure; R21 Rash and other nonspecific skin eruption
CPT/HCPCS: 36415; 70450; 71045; 80048; 80053; 80202; 81001; 83605; 83735; 84484; 85025; 85610; 85730; 87070; 87081; 87086; 93005; 94640; 94664; 96374; J0692; J3370; J7030; J7050

== ENCOUNTER 2019-01-30 08:55 | Inpatient (IN) | payer MEDICARE, MEDICAID ==
[2019-01-30] VITALS (10 sets, daily range): BP systolic 98–146; BP diastolic 50–83; PULSE 59–152; RESP 18–33; Ht 157.5 cm; Wt 102.2 kg
[~2019-01-30] VITALS: Ht 157.5 cm; Wt 102.2 kg
[~2019-01-30 08:55] MED LIST changes: +ALBU2.5V3 NEB; +AMIO200T4 GTB; +ARGI1POW23 GTB; +ASC500 GTB; -ASPI-817 GTB; +ASPI-903 GTB; +ASPI81TA52 PO; -ATOR-2 GTB; +CARV12.579 PO; +CARV6.25 GTB; +CARV6.2579 GTB; +CHLO473M4 MM; +CRAN425C6 GTB; +DEXL60CA2 GTB; +DEXT1DRO7 BOTH EYES; +DOCU-144 GTB; +FERR220S17 GTB; +FURO20TA3 GTB; -GLUC1VIA6 IJ; -HYDR-3671 GTB; +HYDR-842 GTB; +INSU100C SQ; +IPRATROPIUM INH; +LANT3I SC; -LASS GTB; +LISI10TA2 GTB; +LISI2.5T59 GTB; +METO5VIA28 IV; +MORP10DI10 SL; -MUCO4 NEB; +MULT-105 GTB; +ONDA4SOL PO; +SAN30GM TOP; +ZINC220T3 GTB; +[UNRECOGNIZED DRUG - CODE] SC
[2019-01-30] MEDS ORDERED: SODIUM CHLORIDE 0.9% 1L BAG IV* STA (09:04)
[2019-01-30] MEDS ORDERED: ACETAMINOPHEN 650MG/20.3ML CUP NGT STA (09:04)
[2019-01-30] MEDS ORDERED: CEFEPIME 2GM/50 ML (PMX) 50 ML IVPB STA (09:04)
[2019-01-30] MEDS ORDERED: VANCOMYCIN 1 GM (PMX) 250 ML IVPB ONE (09:30)
[2019-01-30] MEDS ORDERED: SOD CHLORIDE 0.9% 1,000 ML IV ONE (12:00)
[2019-01-30] MEDS ORDERED: ONDANSETRON 4 MG INJ IV PRN ×2 (12:00→13:00)
[2019-01-30] MEDS ORDERED: ACETAMINOPHEN 325 MG TAB PO PRN (12:00)
[2019-01-30] MEDS ORDERED: NACL 0.9% 3 ML SYG IV SCH (13:00)
[2019-01-30] MEDS: SOD CHLORIDE 0.9% 1,000 ML IV SCH ×2 (13:58→23:11)
[2019-01-30] MEDS ORDERED: CEFEPIME 1GM/50 ML (PMX) 50 ML IVPB SCH (14:00)
[2019-01-30] MEDS ORDERED: ADENOSINE 6 MG INJ IV ONE ×2 (16:00→21:30)
[2019-01-30] MEDS ORDERED: DILTIAZEM-D5W 125MG/125ML DRIP 125 ML IV STA (18:33)
[2019-01-30] MEDS ORDERED: IPRATROPIUM (NEB) 0.5 MG/2.5 ML AMP HHN PRN (20:00)
[2019-01-30] MEDS: morphine 2 MG INJ IV PRN (20:01)
[2019-01-30] MEDS: FAMOTIDINE 20 MG INJ IV SCH (21:28)
[2019-01-30] MEDS: CEFEPIME 1GM/50 ML (PMX) 50 ML IVPB SCH (21:29)
[2019-01-30] MEDS ORDERED: ADENOSINE 6 MG INJ IV PRN (21:30)
[2019-01-31] VITALS (65 sets, daily range): BP systolic 88–150; BP diastolic 32–87; PULSE 80–133; RESP 11–35
[2019-01-31] MEDS ORDERED: ALBUTEROL/IPRATROPIUM (NEB) 3 ML AMP HHN PRN (01:30)
[2019-01-31] MEDS ORDERED: IPRATROPIUM (NEB) 0.5 MG/2.5 ML AMP HHN PRN (01:30)
[2019-01-31] MEDS ORDERED: DILTIAZEM-D5W 125MG/125ML DRIP 125 ML IV SCH (04:00)
[2019-01-31] MEDS: CEFEPIME 1GM/50 ML (PMX) 50 ML IVPB SCH ×3 (05:40→21:26)
[2019-01-31] MEDS: FAMOTIDINE 20 MG INJ IV SCH ×2 (08:24→21:26)
[2019-01-31] MEDS: ENOXAPARIN 30 MG/0.3 ML SYG SC SCH (08:25)
[2019-01-31] MEDS: DIGOXIN 500 MCG INJ IV SCH ×2 (10:54→16:24)
[2019-01-31] MEDS ORDERED: GLUCOSE GEL 15 GRAM TUBE BUCCAL PRN (12:30)
[2019-01-31] MEDS ORDERED: GLUCAGON 1 MG INJ IM PRN (12:30)
[2019-01-31] MEDS ORDERED: DEXTROSE 50% 50 ML SYRINGE IV PRN ×2 (12:30)
[2019-01-31] MEDS ORDERED: GLUCOSE GEL 15 GRAM TUBE PO PRN ×2 (12:30)
[2019-01-31] MEDS: VALPROIC ACID LIQUID CUP 250 MG/5 ML CUP GTB SCH ×2 (13:53→21:26)
[2019-01-31] MEDS: SOD CHLORIDE 0.9% 1,000 ML IV SCH (13:54)
[2019-01-31] MEDS: INSULIN ASPART [NOVOLOG] 3 ML PEN SC SCH (17:30)
[2019-02-01] VITALS (20 sets, daily range): BP systolic 108–163; BP diastolic 56–93; PULSE 81–149; RESP 14–21
[2019-02-01] MEDS: INSULIN ASPART [NOVOLOG] 3 ML PEN SC SCH ×5 (00:15→23:55)
[2019-02-01] MEDS: METOPROLOL 5 MG INJ IV PRN (02:15)
[2019-02-01] MEDS: SOD CHLORIDE 0.9% 1,000 ML IV SCH (02:55)
[2019-02-01] MEDS: VALPROIC ACID LIQUID CUP 250 MG/5 ML CUP GTB SCH ×3 (05:42→21:04)
[2019-02-01] MEDS: CEFEPIME 1GM/50 ML (PMX) 50 ML IVPB SCH ×3 (05:43→21:04)
[2019-02-01] MEDS: FAMOTIDINE 20 MG INJ IV SCH ×2 (09:28→21:04)
[2019-02-01] MEDS: ENOXAPARIN 30 MG/0.3 ML SYG SC SCH (09:41)
[2019-02-01] MEDS: MUPIROCIN 2% 22 GM OINT TOP SCH (14:59)
[2019-02-01] MEDS: COLLAGENASE 5 GM (UD JAR) TOP SCH (14:59)
[2019-02-01] MEDS ORDERED: DIPHENHYDRAMINE 50 MG INJ IM PRN (19:00)
[2019-02-01] MEDS ORDERED: BALSAM PERU/CASTOR OIL 60 GM TUBE TOP PRN (20:00)
[2019-02-02] VITALS (18 sets, daily range): BP systolic 123–162; BP diastolic 44–67; PULSE 78–101; RESP 14–24
[2019-02-02] MEDS: CEFEPIME 1GM/50 ML (PMX) 50 ML IVPB SCH ×3 (05:38→21:22)
[2019-02-02] MEDS: BALSAM PERU/CASTOR OIL 60 GM TUBE TOP SCH ×3 (05:38→20:21)
[2019-02-02] MEDS: VALPROIC ACID LIQUID CUP 250 MG/5 ML CUP GTB SCH ×3 (05:39→21:22)
[2019-02-02] MEDS: INSULIN ASPART [NOVOLOG] 3 ML PEN SC SCH ×4 (06:00→23:22)
[2019-02-02] MEDS: FAMOTIDINE 20 MG INJ IV SCH ×2 (08:55→20:21)
[2019-02-02] MEDS: COLLAGENASE 5 GM (UD JAR) TOP SCH (09:00)
[2019-02-02] MEDS: ENOXAPARIN 30 MG/0.3 ML SYG SC SCH (09:18)
[2019-02-02] MEDS: SOD CHLORIDE 0.9% 1,000 ML IV SCH (10:33)
[2019-02-02] MEDS: MUPIROCIN 2% 22 GM OINT TOP SCH (10:35)
[2019-02-02] MEDS ORDERED: VANCOMYCIN IV PER PHARMACY XX SCH (12:30)
[2019-02-02] MEDS ORDERED: VANCOMYCIN HCL 2 GM in SOD CHLORIDE 0.9% 500 ML IVPB ONE (14:30)
[2019-02-03] VITALS (17 sets, daily range): BP systolic 113–156; BP diastolic 38–71; PULSE 79–107; RESP 14–22
[2019-02-03] MEDS: VANCOMYCIN 1.25 GM/NS 250 ML 250 ML IVPB SCH ×2 (02:33→14:13)
[2019-02-03] MEDS: ACETAMINOPHEN 325 MG TAB PO PRN (04:35)
[2019-02-03] MEDS: CEFEPIME 1GM/50 ML (PMX) 50 ML IVPB SCH ×3 (05:22→22:49)
[2019-02-03] MEDS: VALPROIC ACID LIQUID CUP 250 MG/5 ML CUP GTB SCH ×3 (05:22→22:49)
[2019-02-03] MEDS: INSULIN ASPART [NOVOLOG] 3 ML PEN SC SCH ×3 (05:30→18:00)
[2019-02-03] MEDS: FAMOTIDINE 20 MG INJ IV SCH ×2 (08:35→22:47)
[2019-02-03] MEDS: BALSAM PERU/CASTOR OIL 60 GM TUBE TOP SCH ×2 (08:36→22:48)
[2019-02-03] MEDS: MUPIROCIN 2% 22 GM OINT TOP SCH (08:36)
[2019-02-03] MEDS: ENOXAPARIN 30 MG/0.3 ML SYG SC SCH (08:48)
[2019-02-03] MEDS: COLLAGENASE 5 GM (UD JAR) TOP SCH (16:13)
[2019-02-04] VITALS (18 sets, daily range): BP systolic 126–155; BP diastolic 65–92; PULSE 79–112; RESP 14–19
[2019-02-04] MEDS: VANCOMYCIN 1.25 GM/NS 250 ML 250 ML IVPB SCH ×2 (04:44→16:17)
[2019-02-04] MEDS: CEFEPIME 1GM/50 ML (PMX) 50 ML IVPB SCH ×3 (05:36→22:05)
[2019-02-04] MEDS: VALPROIC ACID LIQUID CUP 250 MG/5 ML CUP GTB SCH ×3 (05:36→22:04)
[2019-02-04] MEDS: INSULIN ASPART [NOVOLOG] 3 ML PEN SC SCH ×4 (05:37→18:00)
[2019-02-04] MEDS: FUROSEMIDE 20 MG TAB GTB SCH (10:53)
[2019-02-04] MEDS: COLLAGENASE 5 GM (UD JAR) TOP SCH (10:53)
[2019-02-04] MEDS: LISINOPRIL 10 MG TAB GTB SCH (10:53)
[2019-02-04] MEDS: MUPIROCIN 2% 22 GM OINT TOP SCH (10:54)
[2019-02-04] MEDS: BALSAM PERU/CASTOR OIL 60 GM TUBE TOP SCH ×2 (10:54→21:55)
[2019-02-04] MEDS: ENOXAPARIN 30 MG/0.3 ML SYG SC SCH (11:01)
[2019-02-04] MEDS: FAMOTIDINE 20 MG INJ IV SCH (11:14)
[2019-02-04] MEDS: FAMOTIDINE 20 MG TAB GTB SCH (21:54)
[2019-02-05] VITALS (18 sets, daily range): BP systolic 104–141; BP diastolic 50–75; PULSE 77–120; RESP 12–22
[2019-02-05] MEDS: VANCOMYCIN 1.25 GM/NS 250 ML 250 ML IVPB SCH ×2 (05:41→14:51)
[2019-02-05] MEDS: CEFEPIME 1GM/50 ML (PMX) 50 ML IVPB SCH ×3 (05:42→22:22)
[2019-02-05] MEDS: VALPROIC ACID LIQUID CUP 250 MG/5 ML CUP GTB SCH ×3 (05:42→22:18)
[2019-02-05] MEDS: INSULIN ASPART [NOVOLOG] 3 ML PEN SC SCH ×5 (05:42→23:49)
[2019-02-05] MEDS: FAMOTIDINE 20 MG TAB GTB SCH ×2 (09:00→20:41)
[2019-02-05] MEDS: COLLAGENASE 5 GM (UD JAR) TOP SCH (09:00)
[2019-02-05] MEDS: FUROSEMIDE 20 MG TAB GTB SCH (09:00)
[2019-02-05] MEDS: MUPIROCIN 2% 22 GM OINT TOP SCH (09:01)
[2019-02-05] MEDS: BALSAM PERU/CASTOR OIL 60 GM TUBE TOP SCH ×2 (09:01→20:42)
[2019-02-05] MEDS: LISINOPRIL 10 MG TAB GTB SCH (09:01)
[2019-02-05] MEDS: ENOXAPARIN 30 MG/0.3 ML SYG SC SCH (09:07)
[2019-02-05] MEDS: ACETAMINOPHEN 325 MG TAB PO PRN (15:34)
[2019-02-06] VITALS (18 sets, daily range): BP systolic 108–146; BP diastolic 66–74; PULSE 79–105; RESP 16–22
[2019-02-06] MEDS: CEFEPIME 1GM/50 ML (PMX) 50 ML IVPB SCH ×3 (06:36→21:01)
[2019-02-06] MEDS: VALPROIC ACID LIQUID CUP 250 MG/5 ML CUP GTB SCH ×3 (06:36→21:01)
[2019-02-06] MEDS: INSULIN ASPART [NOVOLOG] 3 ML PEN SC SCH ×4 (07:04→23:37)
[2019-02-06] MEDS: FUROSEMIDE 20 MG TAB GTB SCH (08:55)
[2019-02-06] MEDS: FAMOTIDINE 20 MG TAB GTB SCH ×2 (08:55→21:00)
[2019-02-06] MEDS: COLLAGENASE 5 GM (UD JAR) TOP SCH (08:56)
[2019-02-06] MEDS: BALSAM PERU/CASTOR OIL 60 GM TUBE TOP SCH ×2 (08:56→21:01)
[2019-02-06] MEDS: LISINOPRIL 10 MG TAB GTB SCH (08:56)
[2019-02-06] MEDS: MUPIROCIN 2% 22 GM OINT TOP SCH (09:06)
[2019-02-06] MEDS: ENOXAPARIN 30 MG/0.3 ML SYG SC SCH (09:06)
[2019-02-06] MEDS ORDERED: DIGOXIN 500 MCG INJ IV ONE (12:00)
[2019-02-06] MEDS: ACETAMINOPHEN 325 MG TAB PO PRN (20:50)
[2019-02-07] VITALS (18 sets, daily range): BP systolic 110–133; BP diastolic 66–80; PULSE 75–86; RESP 14–20
[2019-02-07] MEDS: VALPROIC ACID LIQUID CUP 250 MG/5 ML CUP GTB SCH ×3 (05:38→21:07)
[2019-02-07] MEDS: CEFEPIME 1GM/50 ML (PMX) 50 ML IVPB SCH (05:38)
[2019-02-07] MEDS: INSULIN ASPART [NOVOLOG] 3 ML PEN SC SCH ×3 (06:06→18:00)
[2019-02-07] MEDS: COLLAGENASE 5 GM (UD JAR) TOP SCH (09:07)
[2019-02-07] MEDS: FAMOTIDINE 20 MG TAB GTB SCH ×2 (09:07→21:07)
[2019-02-07] MEDS: LISINOPRIL 10 MG TAB GTB SCH (09:07)
[2019-02-07] MEDS: MUPIROCIN 2% 22 GM OINT TOP SCH (09:08)
[2019-02-07] MEDS: FUROSEMIDE 20 MG TAB GTB SCH (09:08)
[2019-02-07] MEDS: BALSAM PERU/CASTOR OIL 60 GM TUBE TOP SCH ×2 (09:08→21:08)
[2019-02-07] MEDS: ENOXAPARIN 30 MG/0.3 ML SYG SC SCH (09:24)
[2019-02-08] VITALS (18 sets, daily range): BP systolic 101–125; BP diastolic 56–73; PULSE 75–93; RESP 14–20
[2019-02-08] MEDS: INSULIN ASPART [NOVOLOG] 3 ML PEN SC SCH ×5 (06:00→23:15)
[2019-02-08] MEDS: VALPROIC ACID LIQUID CUP 250 MG/5 ML CUP GTB SCH ×3 (06:00→21:00)
[2019-02-08] MEDS: COLLAGENASE 5 GM (UD JAR) TOP SCH (09:19)
[2019-02-08] MEDS: FUROSEMIDE 20 MG TAB GTB SCH (09:22)
[2019-02-08] MEDS: LISINOPRIL 10 MG TAB GTB SCH (09:22)
[2019-02-08] MEDS: FAMOTIDINE 20 MG TAB GTB SCH ×2 (09:22→20:53)
[2019-02-08] MEDS: ENOXAPARIN 30 MG/0.3 ML SYG SC SCH (09:37)
[2019-02-08] MEDS: MUPIROCIN 2% 22 GM OINT TOP SCH (09:48)
[2019-02-08] MEDS: BALSAM PERU/CASTOR OIL 60 GM TUBE TOP SCH ×2 (09:49→20:54)
[2019-02-08] MEDS: ACETAMINOPHEN 325 MG TAB PO PRN (19:13)
[2019-02-09] VITALS (17 sets, daily range): BP systolic 100–136; BP diastolic 61–100; PULSE 69–100; RESP 14–21
[2019-02-09] MEDS: VALPROIC ACID LIQUID CUP 250 MG/5 ML CUP GTB SCH ×3 (05:15→21:01)
[2019-02-09] MEDS: INSULIN ASPART [NOVOLOG] 3 ML PEN SC SCH ×3 (05:24→18:00)
[2019-02-09] MEDS: FUROSEMIDE 20 MG TAB GTB SCH (09:21)
[2019-02-09] MEDS: LISINOPRIL 10 MG TAB GTB SCH (09:21)
[2019-02-09] MEDS: FAMOTIDINE 20 MG TAB GTB SCH ×2 (09:21→20:54)
[2019-02-09] MEDS: MUPIROCIN 2% 22 GM OINT TOP SCH (09:22)
[2019-02-09] MEDS: BALSAM PERU/CASTOR OIL 60 GM TUBE TOP SCH ×2 (09:22→20:55)
[2019-02-09] MEDS: COLLAGENASE 5 GM (UD JAR) TOP SCH (09:22)
[2019-02-09] MEDS: ENOXAPARIN 30 MG/0.3 ML SYG SC SCH (09:57)
[2019-02-09] MEDS: DAKINS 0.0125%(1/40) 473 ML SOLUTION TP SCH ×2 (15:00→20:55)
[2019-02-09] MEDS: ACETAMINOPHEN 325 MG TAB PO PRN (20:54)
[2019-02-10] VITALS (21 sets, daily range): BP systolic 86–121; BP diastolic 31–102; PULSE 63–144; RESP 14–23
[2019-02-10] MEDS: INSULIN ASPART [NOVOLOG] 3 ML PEN SC SCH ×4 (06:00→17:53)
[2019-02-10] MEDS: VALPROIC ACID LIQUID CUP 250 MG/5 ML CUP GTB SCH ×3 (06:26→22:00)
[2019-02-10] MEDS: COLLAGENASE 5 GM (UD JAR) TOP SCH (09:00)
[2019-02-10] MEDS: LISINOPRIL 10 MG TAB GTB SCH (09:32)
[2019-02-10] MEDS: FUROSEMIDE 20 MG TAB GTB SCH (09:32)
[2019-02-10] MEDS: FAMOTIDINE 20 MG TAB GTB SCH ×2 (09:32→20:37)
[2019-02-10] MEDS: DAKINS 0.0125%(1/40) 473 ML SOLUTION TP SCH ×2 (09:33→20:37)
[2019-02-10] MEDS: BALSAM PERU/CASTOR OIL 60 GM TUBE TOP SCH ×2 (09:33→20:37)
[2019-02-10] MEDS: morphine 2 MG INJ IV PRN (15:44)
[2019-02-10] MEDS: METOPROLOL 5 MG INJ IV PRN (15:56)
[2019-02-10] MEDS ORDERED: DIGOXIN 500 MCG INJ IV ONE (16:25)
[2019-02-10] MEDS: ACETAMINOPHEN 325 MG TAB PO PRN (16:44)
[2019-02-10] MEDS ORDERED: AMIODARONE 900 MG in DEXTROSE 5% 482 ML IV SCH ×2 (18:00→19:00)
[2019-02-10] MEDS ORDERED: AMIODARONE 150MG/D5W BOLUS 100 ML IV ONE (18:00)
[2019-02-10] MEDS: CEFEPIME 1GM/50 ML (PMX) 50 ML IVPB SCH (18:30)
[2019-02-10] MEDS ORDERED: VANCOMYCIN IV PER PHARMACY XX SCH (18:30)
[2019-02-10] MEDS ORDERED: VANCOMYCIN HCL 2 GM in SOD CHLORIDE 0.9% 500 ML IVPB ONE (19:30)
[2019-02-10] MEDS ORDERED: VANCOMYCIN HCL 2 GM in SOD CHLORIDE 0.9% 500 ML IVPB SCH (20:30)
[2019-02-10] MEDS ORDERED: SOD CHLORIDE 0.9% 500 ML IV ONE (21:00)
[2019-02-11] VITALS (16 sets, daily range): BP systolic 98–142; BP diastolic 36–98; PULSE 90–139; RESP 16–27
[2019-02-11] MEDS: INSULIN ASPART [NOVOLOG] 3 ML PEN SC SCH ×4 (00:04→17:55)
[2019-02-11] MEDS: CEFEPIME 1GM/50 ML (PMX) 50 ML IVPB SCH ×3 (03:05→17:43)
[2019-02-11] MEDS: VALPROIC ACID LIQUID CUP 250 MG/5 ML CUP GTB SCH ×3 (05:58→22:19)
[2019-02-11] MEDS: VANCOMYCIN 1.25 GM/NS 250 ML 250 ML IVPB SCH ×2 (08:14→20:29)
[2019-02-11] MEDS: LISINOPRIL 10 MG TAB GTB SCH (09:51)
[2019-02-11] MEDS: FAMOTIDINE 20 MG TAB GTB SCH ×2 (09:51→20:29)
[2019-02-11] MEDS: FUROSEMIDE 20 MG TAB GTB SCH (09:51)
[2019-02-11] MEDS: DAKINS 0.0125%(1/40) 473 ML SOLUTION TP SCH ×2 (09:52→20:29)
[2019-02-11] MEDS: BALSAM PERU/CASTOR OIL 60 GM TUBE TOP SCH ×2 (09:52→20:30)
[2019-02-11] MEDS: ACETAMINOPHEN 325 MG TAB PO PRN ×2 (09:54→17:42)
[2019-02-11] MEDS ORDERED: NA POLYST SULFON 15 GM/60 ML BTL GTB ONE (15:30)
[2019-02-11] MEDS: INSULIN GLARGINE [LANTus] (100 UNITS/ML) SYG SC SCH (20:52)
[2019-02-12] VITALS (17 sets, daily range): BP systolic 92–117; BP diastolic 55–66; PULSE 73–108; RESP 15–22
[2019-02-12] MEDS: INSULIN ASPART [NOVOLOG] 3 ML PEN SC SCH ×5 (01:32→21:33)
[2019-02-12] MEDS: CEFEPIME 1GM/50 ML (PMX) 50 ML IVPB SCH ×3 (02:12→17:42)
[2019-02-12] MEDS: VALPROIC ACID LIQUID CUP 250 MG/5 ML CUP GTB SCH ×3 (06:00→21:14)
[2019-02-12] MEDS: FUROSEMIDE 20 MG TAB GTB SCH ×2 (09:00→17:42)
[2019-02-12] MEDS: LISINOPRIL 10 MG TAB GTB SCH ×2 (09:00→17:43)
[2019-02-12] MEDS: BALSAM PERU/CASTOR OIL 60 GM TUBE TOP SCH ×2 (10:17→21:12)
[2019-02-12] MEDS: DAKINS 0.0125%(1/40) 473 ML SOLUTION TP SCH ×2 (10:17→21:12)
[2019-02-12] MEDS: FAMOTIDINE 20 MG TAB GTB SCH ×2 (10:18→21:08)
[2019-02-12] MEDS: VANCOMYCIN 1.25 GM/NS 250 ML 250 ML IVPB SCH ×2 (10:29→20:11)
[2019-02-12] MEDS: ACETAMINOPHEN 325 MG TAB PO PRN (12:11)
[2019-02-12] MEDS ORDERED: SOD CHLORIDE 0.9% 250 ML IV ONE (18:30)
[2019-02-12] MEDS: INSULIN GLARGINE [LANTus] (100 UNITS/ML) SYG SC SCH (21:33)
[2019-02-13] VITALS (19 sets, daily range): BP systolic 80–124; BP diastolic 34–97; PULSE 94–145; RESP 15–28
[2019-02-13] MEDS: CEFEPIME 1GM/50 ML (PMX) 50 ML IVPB SCH ×3 (03:26→17:50)
[2019-02-13] MEDS: METOPROLOL 5 MG INJ IV PRN (05:03)
[2019-02-13] MEDS ORDERED: DILTIAZEM 25 MG INJ IV ONE (06:30)
[2019-02-13] MEDS: VALPROIC ACID LIQUID CUP 250 MG/5 ML CUP GTB SCH ×3 (06:33→21:22)
[2019-02-13] MEDS: INSULIN ASPART [NOVOLOG] 3 ML PEN SC SCH ×3 (06:52→17:55)
[2019-02-13] MEDS: LISINOPRIL 10 MG TAB GTB SCH (09:00)
[2019-02-13] MEDS: VANCOMYCIN 1.25 GM/NS 250 ML 250 ML IVPB SCH ×2 (09:05→20:02)
[2019-02-13] MEDS: FAMOTIDINE 20 MG TAB GTB SCH ×2 (09:07→21:21)
[2019-02-13] MEDS: FUROSEMIDE 20 MG TAB GTB SCH (09:12)
[2019-02-13] MEDS: DAKINS 0.0125%(1/40) 473 ML SOLUTION TP SCH ×2 (09:14→21:22)
[2019-02-13] MEDS: BALSAM PERU/CASTOR OIL 60 GM TUBE TOP SCH ×2 (09:14→21:22)
[2019-02-13] MEDS: ACETAMINOPHEN 325 MG TAB PO PRN (21:25)
[2019-02-13] MEDS: INSULIN GLARGINE [LANTus] (100 UNITS/ML) SYG SC SCH (23:04)
[2019-02-14] VITALS (17 sets, daily range): BP systolic 92–108; BP diastolic 51–72; PULSE 97–126; RESP 14–24
[2019-02-14] MEDS: CEFEPIME 1GM/50 ML (PMX) 50 ML IVPB SCH ×3 (00:21→18:06)
[2019-02-14] MEDS: INSULIN ASPART [NOVOLOG] 3 ML PEN SC SCH ×4 (00:36→17:55)
[2019-02-14] MEDS: VALPROIC ACID LIQUID CUP 250 MG/5 ML CUP GTB SCH ×3 (05:47→22:04)
[2019-02-14] MEDS: LISINOPRIL 10 MG TAB GTB SCH (08:44)
[2019-02-14] MEDS: FUROSEMIDE 20 MG TAB GTB SCH (08:45)
[2019-02-14] MEDS: FAMOTIDINE 20 MG TAB GTB SCH ×2 (09:57→20:46)
[2019-02-14] MEDS: BALSAM PERU/CASTOR OIL 60 GM TUBE TOP SCH ×2 (09:58→20:47)
[2019-02-14] MEDS: DAKINS 0.0125%(1/40) 473 ML SOLUTION TP SCH ×2 (09:59→20:47)
[2019-02-14] MEDS: VANCOMYCIN 1.25 GM/NS 250 ML 250 ML IVPB SCH ×2 (10:34→20:46)
[2019-02-14] MEDS ORDERED: DIGOXIN 500 MCG INJ IV ONE (12:00)
[2019-02-14] MEDS ORDERED: SOD CHLORIDE 0.9% 250 ML IV ONE ×2 (14:30→17:00)
[2019-02-14] MEDS: SOD CHLORIDE 0.9% 1,000 ML IV SCH (17:45)
[2019-02-14] MEDS: INSULIN GLARGINE [LANTus] (100 UNITS/ML) SYG SC SCH (21:23)
[2019-02-15] VITALS (19 sets, daily range): BP systolic 88–128; BP diastolic 45–91; PULSE 82–109; RESP 14–19
[2019-02-15] MEDS: CEFEPIME 1GM/50 ML (PMX) 50 ML IVPB SCH ×2 (02:08→09:43)
[2019-02-15] MEDS: INSULIN ASPART [NOVOLOG] 3 ML PEN SC SCH ×5 (05:35→23:13)
[2019-02-15] MEDS: VALPROIC ACID LIQUID CUP 250 MG/5 ML CUP GTB SCH ×3 (05:35→21:32)
[2019-02-15] MEDS: SOD CHLORIDE 0.9% 1,000 ML IV SCH (06:34)
[2019-02-15] MEDS: VANCOMYCIN 1.25 GM/NS 250 ML 250 ML IVPB SCH ×2 (09:43→20:10)
[2019-02-15] MEDS: DAKINS 0.0125%(1/40) 473 ML SOLUTION TP SCH ×2 (09:44→20:12)
[2019-02-15] MEDS: FUROSEMIDE 20 MG TAB GTB SCH (09:44)
[2019-02-15] MEDS: FAMOTIDINE 20 MG TAB GTB SCH ×2 (09:44→20:11)
[2019-02-15] MEDS: LISINOPRIL 10 MG TAB GTB SCH (09:44)
[2019-02-15] MEDS: BALSAM PERU/CASTOR OIL 60 GM TUBE TOP SCH ×2 (09:45→20:12)
[2019-02-15] MEDS ORDERED: FUROSEMIDE 40 MG INJ IV ONE ×2 (11:30→20:30)
[2019-02-15] MEDS: LEVOFLOXACIN 500MG/D5W (PMX) 100 ML IVPB SCH (17:06)
[2019-02-15] MEDS: INSULIN GLARGINE [LANTus] (100 UNITS/ML) SYG SC SCH (20:20)
[2019-02-15] MEDS: PIPER-TAZO 3.375 GM IV (PMX) 100 ML IVPB SCH (21:40)
[2019-02-15] MEDS: ACETAMINOPHEN 325 MG TAB PO PRN (22:29)
[2019-02-15] MEDS ORDERED: IBUPROFEN 600 MG TAB GTB PRN (23:30)
[2019-02-16] VITALS (18 sets, daily range): BP systolic 114–145; BP diastolic 69–92; PULSE 70–114; RESP 14–20
[2019-02-16] MEDS: SOD CHLORIDE 0.9% 1,000 ML IV SCH ×2 (02:26→22:26)
[2019-02-16] MEDS: PIPER-TAZO 3.375 GM IV (PMX) 100 ML IVPB SCH ×3 (05:22→22:19)
[2019-02-16] MEDS: VALPROIC ACID LIQUID CUP 250 MG/5 ML CUP GTB SCH ×3 (05:26→22:18)
[2019-02-16] MEDS: INSULIN ASPART [NOVOLOG] 3 ML PEN SC SCH ×3 (05:30→18:41)
[2019-02-16] MEDS: FAMOTIDINE 20 MG TAB GTB SCH ×2 (09:34→22:16)
[2019-02-16] MEDS: LISINOPRIL 10 MG TAB GTB SCH (09:36)
[2019-02-16] MEDS: FUROSEMIDE 20 MG TAB GTB SCH (09:36)
[2019-02-16] MEDS: DAKINS 0.0125%(1/40) 473 ML SOLUTION TP SCH (09:37)
[2019-02-16] MEDS: BALSAM PERU/CASTOR OIL 60 GM TUBE TOP SCH (09:38)
[2019-02-16] MEDS: VANCOMYCIN 1.25 GM/NS 250 ML 250 ML IVPB SCH (12:00)
[2019-02-16] MEDS: LEVOFLOXACIN 500MG/D5W (PMX) 100 ML IVPB SCH (17:06)
[2019-02-16] MEDS: ACETAMINOPHEN 325 MG TAB PO PRN (19:55)
[2019-02-16] MEDS: INSULIN GLARGINE [LANTus] (100 UNITS/ML) SYG SC SCH (19:59)
[2019-02-17] VITALS (18 sets, daily range): BP systolic 100–157; BP diastolic 52–77; PULSE 72–98; RESP 14–24
[2019-02-17] MEDS: INSULIN ASPART [NOVOLOG] 3 ML PEN SC SCH ×4 (00:26→18:00)
[2019-02-17] MEDS: BALSAM PERU/CASTOR OIL 60 GM TUBE TOP SCH ×3 (02:12→20:46)
[2019-02-17] MEDS: DAKINS 0.0125%(1/40) 473 ML SOLUTION TP SCH ×3 (02:12→20:47)
[2019-02-17] MEDS: METOPROLOL 5 MG INJ IV PRN (03:10)
[2019-02-17] MEDS: VALPROIC ACID LIQUID CUP 250 MG/5 ML CUP GTB SCH ×3 (06:53→22:14)
[2019-02-17] MEDS: PIPER-TAZO 3.375 GM IV (PMX) 100 ML IVPB SCH ×3 (06:54→22:14)
[2019-02-17] MEDS: FUROSEMIDE 20 MG TAB GTB SCH (08:23)
[2019-02-17] MEDS: FAMOTIDINE 20 MG TAB GTB SCH ×2 (08:23→20:46)
[2019-02-17] MEDS: LISINOPRIL 10 MG TAB GTB SCH (08:29)
[2019-02-17] MEDS: ACETAMINOPHEN 325 MG TAB PO PRN (11:25)
[2019-02-17] MEDS: SOD CHLORIDE 0.9% 1,000 ML IV SCH (15:33)
[2019-02-17] MEDS: LEVOFLOXACIN 500MG/D5W (PMX) 100 ML IVPB SCH (16:57)
[2019-02-17] MEDS: INSULIN GLARGINE [LANTus] (100 UNITS/ML) SYG SC SCH (20:56)
[2019-02-18] VITALS (19 sets, daily range): BP systolic 94–131; BP diastolic 57–87; PULSE 74–110; RESP 14–32
[2019-02-18] MEDS: ARTIFICIAL TEARS 15 ML OPH BOTH EYES SCH ×3 (01:20→20:33)
[2019-02-18] MEDS: INSULIN ASPART [NOVOLOG] 3 ML PEN SC SCH ×4 (01:21→17:25)
[2019-02-18] MEDS: VALPROIC ACID LIQUID CUP 250 MG/5 ML CUP GTB SCH ×3 (05:31→21:45)
[2019-02-18] MEDS: PIPER-TAZO 3.375 GM IV (PMX) 100 ML IVPB SCH ×3 (05:31→21:46)
[2019-02-18] MEDS: METOPROLOL 5 MG INJ IV PRN (05:41)
[2019-02-18] MEDS: FUROSEMIDE 20 MG TAB GTB SCH (08:00)
[2019-02-18] MEDS: FAMOTIDINE 20 MG TAB GTB SCH ×2 (08:00→20:33)
[2019-02-18] MEDS: BALSAM PERU/CASTOR OIL 60 GM TUBE TOP SCH ×2 (08:01→20:33)
[2019-02-18] MEDS: DAKINS 0.0125%(1/40) 473 ML SOLUTION TP SCH (08:01)
[2019-02-18] MEDS: LISINOPRIL 10 MG TAB GTB SCH (08:01)
[2019-02-18] MEDS: COLLAGENASE 5 GM (UD JAR) TOP SCH (13:14)
[2019-02-18] MEDS: LEVOFLOXACIN 500MG/D5W (PMX) 100 ML IVPB SCH (16:46)
[2019-02-18] MEDS: INSULIN GLARGINE [LANTus] (100 UNITS/ML) SYG SC SCH (20:45)
[2019-02-19] VITALS (18 sets, daily range): BP systolic 82–127; BP diastolic 49–74; PULSE 96–119; RESP 15–20
[2019-02-19] MEDS: INSULIN ASPART [NOVOLOG] 3 ML PEN SC SCH ×4 (00:56→17:21)
[2019-02-19] MEDS: VALPROIC ACID LIQUID CUP 250 MG/5 ML CUP GTB SCH ×3 (06:23→22:01)
[2019-02-19] MEDS: PIPER-TAZO 3.375 GM IV (PMX) 100 ML IVPB SCH ×3 (06:23→22:01)
[2019-02-19] MEDS: ARTIFICIAL TEARS 15 ML OPH BOTH EYES SCH ×2 (08:10→20:58)
[2019-02-19] MEDS: DAKINS 0.0125%(1/40) 473 ML SOLUTION TP SCH (08:11)
[2019-02-19] MEDS: BALSAM PERU/CASTOR OIL 60 GM TUBE TOP SCH ×2 (08:11→20:58)
[2019-02-19] MEDS: COLLAGENASE 5 GM (UD JAR) TOP SCH (08:11)
[2019-02-19] MEDS: FAMOTIDINE 20 MG TAB GTB SCH ×2 (08:11→20:57)
[2019-02-19] MEDS: FUROSEMIDE 20 MG TAB GTB SCH (08:12)
[2019-02-19] MEDS: LISINOPRIL 10 MG TAB GTB SCH (08:13)
[2019-02-19] MEDS ORDERED: SOD CHLORIDE 0.9% 500 ML IV ONE (15:30)
[2019-02-19] MEDS: LEVOFLOXACIN 500MG/D5W (PMX) 100 ML IVPB SCH (16:34)
[2019-02-19] MEDS: INSULIN GLARGINE [LANTus] (100 UNITS/ML) SYG SC SCH (21:09)
[2019-02-20] VITALS (18 sets, daily range): BP systolic 91–129; BP diastolic 45–72; PULSE 70–98; RESP 15–21
[2019-02-20] MEDS: VALPROIC ACID LIQUID CUP 250 MG/5 ML CUP GTB SCH ×3 (05:44→21:02)
[2019-02-20] MEDS: INSULIN ASPART [NOVOLOG] 3 ML PEN SC SCH ×4 (05:44→18:00)
[2019-02-20] MEDS: PIPER-TAZO 3.375 GM IV (PMX) 100 ML IVPB SCH ×3 (05:44→21:02)
[2019-02-20] MEDS: FUROSEMIDE 20 MG TAB GTB SCH (10:08)
[2019-02-20] MEDS: LISINOPRIL 10 MG TAB GTB SCH (10:08)
[2019-02-20] MEDS: FAMOTIDINE 20 MG TAB GTB SCH ×2 (10:08→20:58)
[2019-02-20] MEDS: ARTIFICIAL TEARS 15 ML OPH BOTH EYES SCH ×2 (10:09→20:58)
[2019-02-20] MEDS: COLLAGENASE 5 GM (UD JAR) TOP SCH (10:09)
[2019-02-20] MEDS: DAKINS 0.0125%(1/40) 473 ML SOLUTION TP SCH (10:10)
[2019-02-20] MEDS: BALSAM PERU/CASTOR OIL 60 GM TUBE TOP SCH ×2 (10:10→20:58)
[2019-02-20] MEDS: ACETAMINOPHEN 325 MG TAB PO PRN (10:15)
[2019-02-20] MEDS ORDERED: LIDOCAINE 2%/EPI (MDV) 20ML INJ INJ ONE (11:30)
[2019-02-20] MEDS ORDERED: SILVER NITRATE SWAB TOP ONE (11:30)
[2019-02-20] MEDS: INSULIN GLARGINE [LANTus] (100 UNITS/ML) SYG SC SCH (21:30)
[2019-02-21] VITALS (17 sets, daily range): BP systolic 94–113; BP diastolic 51–74; PULSE 71–109; RESP 14–18
[2019-02-21] MEDS: VALPROIC ACID LIQUID CUP 250 MG/5 ML CUP GTB SCH ×3 (05:37→22:08)
[2019-02-21] MEDS: PIPER-TAZO 3.375 GM IV (PMX) 100 ML IVPB SCH ×3 (05:37→22:07)
[2019-02-21] MEDS: INSULIN ASPART [NOVOLOG] 3 ML PEN SC SCH ×4 (05:48→18:29)
[2019-02-21] MEDS: LISINOPRIL 10 MG TAB GTB SCH (09:00)
[2019-02-21] MEDS: FAMOTIDINE 20 MG TAB GTB SCH ×2 (10:00→21:02)
[2019-02-21] MEDS: COLLAGENASE 5 GM (UD JAR) TOP SCH (10:00)
[2019-02-21] MEDS: DAKINS 0.0125%(1/40) 473 ML SOLUTION TP SCH (10:01)
[2019-02-21] MEDS: ARTIFICIAL TEARS 15 ML OPH BOTH EYES SCH ×2 (10:01→21:05)
[2019-02-21] MEDS: BALSAM PERU/CASTOR OIL 60 GM TUBE TOP SCH ×2 (10:01→21:05)
[2019-02-21] MEDS: FUROSEMIDE 20 MG TAB GTB SCH (10:04)
[2019-02-21] MEDS: INSULIN GLARGINE [LANTus] (100 UNITS/ML) SYG SC SCH (21:12)
[2019-02-22] VITALS (18 sets, daily range): BP systolic 85–119; BP diastolic 56–81; PULSE 106–116; RESP 14–20
[2019-02-22] MEDS: INSULIN ASPART [NOVOLOG] 3 ML PEN SC SCH ×4 (01:35→17:50)
[2019-02-22] MEDS: METOPROLOL 5 MG INJ IV PRN ×2 (01:58→10:53)
[2019-02-22] MEDS: PIPER-TAZO 3.375 GM IV (PMX) 100 ML IVPB SCH ×3 (05:53→21:36)
[2019-02-22] MEDS: VALPROIC ACID LIQUID CUP 250 MG/5 ML CUP GTB SCH ×3 (05:54→21:36)
[2019-02-22] MEDS: COLLAGENASE 5 GM (UD JAR) TOP SCH (08:57)
[2019-02-22] MEDS: DAKINS 0.0125%(1/40) 473 ML SOLUTION TP SCH (08:58)
[2019-02-22] MEDS: FAMOTIDINE 20 MG TAB GTB SCH ×2 (08:58→21:35)
[2019-02-22] MEDS: ARTIFICIAL TEARS 15 ML OPH BOTH EYES SCH ×2 (08:58→21:00)
[2019-02-22] MEDS: LISINOPRIL 10 MG TAB GTB SCH (09:00)
[2019-02-22] MEDS: FUROSEMIDE 20 MG TAB GTB SCH (09:00)
[2019-02-22] MEDS: BALSAM PERU/CASTOR OIL 60 GM TUBE TOP SCH (09:02)
[2019-02-22] MEDS ORDERED: SOD CHLORIDE 0.9% 250 ML IV ONE (12:30)
[2019-02-22] MEDS: INSULIN GLARGINE [LANTus] (100 UNITS/ML) SYG SC SCH (21:46)
[2019-02-23] VITALS (18 sets, daily range): BP systolic 95–117; BP diastolic 65–91; PULSE 68–144; RESP 14–22
[2019-02-23] MEDS: BALSAM PERU/CASTOR OIL 60 GM TUBE TOP SCH ×3 (00:32→20:46)
[2019-02-23] MEDS: PIPER-TAZO 3.375 GM IV (PMX) 100 ML IVPB SCH ×3 (05:31→23:54)
[2019-02-23] MEDS: VALPROIC ACID LIQUID CUP 250 MG/5 ML CUP GTB SCH ×3 (05:31→23:53)
[2019-02-23] MEDS: INSULIN ASPART [NOVOLOG] 3 ML PEN SC SCH ×4 (07:40→17:52)
[2019-02-23] MEDS: FUROSEMIDE 20 MG TAB GTB SCH (08:25)
[2019-02-23] MEDS: ARTIFICIAL TEARS 15 ML OPH BOTH EYES SCH ×2 (08:25→20:46)
[2019-02-23] MEDS: FAMOTIDINE 20 MG TAB GTB SCH ×2 (08:26→20:40)
[2019-02-23] MEDS: COLLAGENASE 5 GM (UD JAR) TOP SCH (08:26)
[2019-02-23] MEDS: LISINOPRIL 10 MG TAB GTB SCH (08:26)
[2019-02-23] MEDS ORDERED: AMIODARONE 150MG/D5W BOLUS 100 ML IV ONE (13:30)
[2019-02-23] MEDS ORDERED: AMIODARONE 900 MG in DEXTROSE 5% 482 ML IV SCH (13:30)
[2019-02-23] MEDS: DIGOXIN 500 MCG INJ IV SCH ×2 (13:36→20:42)
[2019-02-23] MEDS: DAKINS 0.0125%(1/40) 473 ML SOLUTION TP SCH (15:52)
[2019-02-23] MEDS: INSULIN GLARGINE [LANTus] (100 UNITS/ML) SYG SC SCH (20:58)
[2019-02-24] VITALS (19 sets, daily range): BP systolic 91–134; BP diastolic 61–82; PULSE 68–106; RESP 14–22
[2019-02-24] MEDS: INSULIN ASPART [NOVOLOG] 3 ML PEN SC SCH ×5 (06:00→23:55)
[2019-02-24] MEDS: VALPROIC ACID LIQUID CUP 250 MG/5 ML CUP GTB SCH ×3 (06:42→22:08)
[2019-02-24] MEDS: PIPER-TAZO 3.375 GM IV (PMX) 100 ML IVPB SCH ×3 (06:43→22:08)
[2019-02-24] MEDS: ARTIFICIAL TEARS 15 ML OPH BOTH EYES SCH ×2 (08:30→20:56)
[2019-02-24] MEDS: LISINOPRIL 10 MG TAB GTB SCH ×2 (08:31→11:26)
[2019-02-24] MEDS: FAMOTIDINE 20 MG TAB GTB SCH ×2 (08:31→20:55)
[2019-02-24] MEDS: FUROSEMIDE 20 MG TAB GTB SCH (08:32)
[2019-02-24] MEDS: COLLAGENASE 5 GM (UD JAR) TOP SCH (08:34)
[2019-02-24] MEDS: DAKINS 0.0125%(1/40) 473 ML SOLUTION TP SCH (12:21)
[2019-02-24] MEDS: BALSAM PERU/CASTOR OIL 60 GM TUBE TOP SCH ×2 (12:21→20:56)
[2019-02-24] MEDS: INSULIN GLARGINE [LANTus] (100 UNITS/ML) SYG SC SCH (20:58)
[2019-02-25] VITALS (18 sets, daily range): BP systolic 75–125; BP diastolic 46–74; PULSE 93–109; RESP 15–21
[2019-02-25] MEDS: VALPROIC ACID LIQUID CUP 250 MG/5 ML CUP GTB SCH ×3 (05:28→21:45)
[2019-02-25] MEDS: PIPER-TAZO 3.375 GM IV (PMX) 100 ML IVPB SCH ×3 (05:28→21:47)
[2019-02-25] MEDS: INSULIN ASPART [NOVOLOG] 3 ML PEN SC SCH ×3 (05:28→21:00)
[2019-02-25] MEDS: ARTIFICIAL TEARS 15 ML OPH BOTH EYES SCH ×2 (10:33→21:00)
[2019-02-25] MEDS: FUROSEMIDE 20 MG TAB GTB SCH (10:34)
[2019-02-25] MEDS: FAMOTIDINE 20 MG TAB GTB SCH ×2 (10:34→20:59)
[2019-02-25] MEDS: LISINOPRIL 10 MG TAB GTB SCH (10:34)
[2019-02-25] MEDS: BALSAM PERU/CASTOR OIL 60 GM TUBE TOP SCH ×2 (10:36→21:01)
[2019-02-25] MEDS: COLLAGENASE 5 GM (UD JAR) TOP SCH (10:36)
[2019-02-25] MEDS: DAKINS 0.0125%(1/40) 473 ML SOLUTION TP SCH (10:36)
[2019-02-25] MEDS: INSULIN GLARGINE [LANTus] (100 UNITS/ML) SYG SC SCH (20:59)
[2019-02-25] MEDS: METOPROLOL 5 MG INJ IV PRN (21:04)
[2019-02-25] MEDS ORDERED: SOD CHLORIDE 0.9% 500 ML IV ONE (23:00)
[2019-02-26] VITALS (19 sets, daily range): BP systolic 88–116; BP diastolic 59–68; PULSE 90–112; RESP 13–24
[2019-02-26] MEDS: INSULIN ASPART [NOVOLOG] 3 ML PEN SC SCH ×5 (00:23→23:56)
[2019-02-26] MEDS: PIPER-TAZO 3.375 GM IV (PMX) 100 ML IVPB SCH ×3 (05:24→22:00)
[2019-02-26] MEDS: VALPROIC ACID LIQUID CUP 250 MG/5 ML CUP GTB SCH ×3 (05:25→22:00)
[2019-02-26] MEDS: FAMOTIDINE 20 MG TAB GTB SCH ×2 (08:49→20:17)
[2019-02-26] MEDS: FUROSEMIDE 20 MG TAB GTB SCH (08:49)
[2019-02-26] MEDS: LISINOPRIL 10 MG TAB GTB SCH (08:49)
[2019-02-26] MEDS: ARTIFICIAL TEARS 15 ML OPH BOTH EYES SCH ×2 (08:50→20:17)
[2019-02-26] MEDS: BALSAM PERU/CASTOR OIL 60 GM TUBE TOP SCH ×2 (08:51→20:23)
[2019-02-26] MEDS: COLLAGENASE 5 GM (UD JAR) TOP SCH (08:51)
[2019-02-26] MEDS: DAKINS 0.0125%(1/40) 473 ML SOLUTION TP SCH (08:51)
[2019-02-26] MEDS: INSULIN GLARGINE [LANTus] (100 UNITS/ML) SYG SC SCH (20:47)
[2019-02-26] MEDS: ACETAMINOPHEN 325 MG TAB PO PRN (22:00)
[2019-02-27] VITALS (21 sets, daily range): BP systolic 88–128; BP diastolic 54–88; PULSE 67–125; RESP 14–24
[2019-02-27] MEDS: VALPROIC ACID LIQUID CUP 250 MG/5 ML CUP GTB SCH ×3 (05:59→22:04)
[2019-02-27] MEDS: PIPER-TAZO 3.375 GM IV (PMX) 100 ML IVPB SCH ×3 (05:59→22:04)
[2019-02-27] MEDS: INSULIN ASPART [NOVOLOG] 3 ML PEN SC SCH ×4 (06:09→23:57)
[2019-02-27] MEDS: LISINOPRIL 10 MG TAB GTB SCH (08:57)
[2019-02-27] MEDS: FAMOTIDINE 20 MG TAB GTB SCH ×2 (08:59→20:29)
[2019-02-27] MEDS: COLLAGENASE 5 GM (UD JAR) TOP SCH (09:00)
[2019-02-27] MEDS: DAKINS 0.0125%(1/40) 473 ML SOLUTION TP SCH (09:00)
[2019-02-27] MEDS: FUROSEMIDE 20 MG TAB GTB SCH (09:00)
[2019-02-27] MEDS: BALSAM PERU/CASTOR OIL 60 GM TUBE TOP SCH ×2 (09:01→20:32)
[2019-02-27] MEDS: ARTIFICIAL TEARS 15 ML OPH BOTH EYES SCH ×2 (09:01→20:29)
[2019-02-27] MEDS ORDERED: DIGOXIN 500 MCG INJ IV ONE (15:30)
[2019-02-27] MEDS: ACETAMINOPHEN 325 MG TAB PO PRN (15:57)
[2019-02-27] MEDS: INSULIN GLARGINE [LANTus] (100 UNITS/ML) SYG SC SCH (20:51)
[2019-02-28] VITALS (18 sets, daily range): BP systolic 93–126; BP diastolic 54–77; PULSE 79–96; RESP 14–25
[2019-02-28] MEDS: PIPER-TAZO 3.375 GM IV (PMX) 100 ML IVPB SCH ×3 (06:05→21:33)
[2019-02-28] MEDS: VALPROIC ACID LIQUID CUP 250 MG/5 ML CUP GTB SCH ×3 (06:05→21:29)
[2019-02-28] MEDS: INSULIN ASPART [NOVOLOG] 3 ML PEN SC SCH ×3 (06:31→18:31)
[2019-02-28] MEDS: FAMOTIDINE 20 MG TAB GTB SCH ×2 (08:46→21:30)
[2019-02-28] MEDS: COLLAGENASE 5 GM (UD JAR) TOP SCH (08:47)
[2019-02-28] MEDS: LISINOPRIL 5 MG TAB GTB SCH (08:47)
[2019-02-28] MEDS: FUROSEMIDE 20 MG TAB GTB SCH (08:47)
[2019-02-28] MEDS: BALSAM PERU/CASTOR OIL 60 GM TUBE TOP SCH ×2 (08:48→21:38)
[2019-02-28] MEDS: DAKINS 0.0125%(1/40) 473 ML SOLUTION TP SCH (08:48)
[2019-02-28] MEDS: ARTIFICIAL TEARS 15 ML OPH BOTH EYES SCH ×2 (08:48→21:36)
[2019-02-28] MEDS: INSULIN GLARGINE [LANTus] (100 UNITS/ML) SYG SC SCH (21:36)
[2019-02-28] MEDS: ACETAMINOPHEN 325 MG TAB PO PRN (21:37)
[2019-03-01] VITALS (18 sets, daily range): BP systolic 90–167; BP diastolic 53–78; PULSE 66–99; RESP 14–22
[2019-03-01] MEDS: INSULIN ASPART [NOVOLOG] 3 ML PEN SC SCH ×4 (00:34→17:07)
[2019-03-01] MEDS: VALPROIC ACID LIQUID CUP 250 MG/5 ML CUP GTB SCH ×3 (05:49→21:00)
[2019-03-01] MEDS: PIPER-TAZO 3.375 GM IV (PMX) 100 ML IVPB SCH ×3 (05:50→21:14)
[2019-03-01] MEDS: LISINOPRIL 5 MG TAB GTB SCH (09:00)
[2019-03-01] MEDS: DAKINS 0.0125%(1/40) 473 ML SOLUTION TP SCH (09:28)
[2019-03-01] MEDS: COLLAGENASE 5 GM (UD JAR) TOP SCH (09:28)
[2019-03-01] MEDS: FUROSEMIDE 20 MG TAB GTB SCH (09:30)
[2019-03-01] MEDS: FAMOTIDINE 20 MG TAB GTB SCH ×2 (09:30→20:50)
[2019-03-01] MEDS: BALSAM PERU/CASTOR OIL 60 GM TUBE TOP SCH ×2 (09:48→20:53)
[2019-03-01] MEDS: ARTIFICIAL TEARS 15 ML OPH BOTH EYES SCH ×2 (09:49→20:53)
[2019-03-01] MEDS: ACETAMINOPHEN 325 MG TAB PO PRN (20:49)
[2019-03-01] MEDS: INSULIN GLARGINE [LANTus] (100 UNITS/ML) SYG SC SCH (20:52)
[2019-03-02] VITALS (18 sets, daily range): BP systolic 94–135; BP diastolic 54–76; PULSE 77–99; RESP 14–23
[2019-03-02] MEDS: INSULIN ASPART [NOVOLOG] 3 ML PEN SC SCH ×4 (00:17→17:20)
[2019-03-02] MEDS: VALPROIC ACID LIQUID CUP 250 MG/5 ML CUP GTB SCH ×3 (05:37→21:32)
[2019-03-02] MEDS: PIPER-TAZO 3.375 GM IV (PMX) 100 ML IVPB SCH ×3 (05:38→21:32)
[2019-03-02] MEDS: FUROSEMIDE 20 MG TAB GTB SCH (09:00)
[2019-03-02] MEDS: LISINOPRIL 5 MG TAB GTB SCH (09:00)
[2019-03-02] MEDS: COLLAGENASE 5 GM (UD JAR) TOP SCH (09:42)
[2019-03-02] MEDS: DAKINS 0.0125%(1/40) 473 ML SOLUTION TP SCH (09:45)
[2019-03-02] MEDS: BALSAM PERU/CASTOR OIL 60 GM TUBE TOP SCH ×2 (09:45→20:23)
[2019-03-02] MEDS: ARTIFICIAL TEARS 15 ML OPH BOTH EYES SCH ×2 (09:47→20:23)
[2019-03-02] MEDS: FAMOTIDINE 20 MG TAB GTB SCH ×2 (09:48→20:21)
[2019-03-02] MEDS: ACETAMINOPHEN 325 MG TAB PO PRN (11:16)
[2019-03-02] MEDS: D5W-0.45 NACL + KCL 20 MEQ 1,000 ML IV SCH (14:56)
[2019-03-02] MEDS: INSULIN GLARGINE [LANTus] (100 UNITS/ML) SYG SC SCH (20:37)
[2019-03-03] VITALS (27 sets, daily range): BP systolic 90–128; BP diastolic 42–74; PULSE 62–88; RESP 0–23
[2019-03-03] MEDS: INSULIN ASPART [NOVOLOG] 3 ML PEN SC SCH ×4 (01:27→18:00)
[2019-03-03] MEDS: VALPROIC ACID LIQUID CUP 250 MG/5 ML CUP GTB SCH ×3 (05:54→21:13)
[2019-03-03] MEDS: PIPER-TAZO 3.375 GM IV (PMX) 100 ML IVPB SCH ×3 (05:54→21:17)
[2019-03-03] MEDS: D5W-0.45 NACL + KCL 20 MEQ 1,000 ML IV SCH ×2 (05:55→15:00)
[2019-03-03] MEDS: FAMOTIDINE 20 MG TAB GTB SCH ×2 (08:57→21:13)
[2019-03-03] MEDS: FUROSEMIDE 20 MG TAB GTB SCH (08:57)
[2019-03-03] MEDS: COLLAGENASE 5 GM (UD JAR) TOP SCH (08:58)
[2019-03-03] MEDS: ARTIFICIAL TEARS 15 ML OPH BOTH EYES SCH ×2 (08:58→21:14)
[2019-03-03] MEDS: LISINOPRIL 5 MG TAB GTB SCH (08:58)
[2019-03-03] MEDS: DAKINS 0.0125%(1/40) 473 ML SOLUTION TP SCH (09:00)
[2019-03-03] MEDS: BALSAM PERU/CASTOR OIL 60 GM TUBE TOP SCH ×2 (09:03→21:17)
[2019-03-03] MEDS ORDERED: FENTAnyl 50 MCG/ML VIAL ONE (16:00)
[2019-03-03] MEDS ORDERED: MIDAZOLAM 1 MG/ML 2 ML INJ ONE (16:00)
[2019-03-03] MEDS ORDERED: PHENYLephrine 10 MG INJ ONE (16:27)
[2019-03-03] MEDS ORDERED: CEFAZOLIN 1 GM INJ ONE (16:58)
[2019-03-03] MEDS: INSULIN GLARGINE [LANTus] (100 UNITS/ML) SYG SC SCH (21:45)
[2019-03-04] VITALS (18 sets, daily range): BP systolic 90–104; BP diastolic 61–72; PULSE 84–103; RESP 18–22
[2019-03-04] MEDS: INSULIN ASPART [NOVOLOG] 3 ML PEN SC SCH ×4 (00:13→17:58)
[2019-03-04] MEDS: PIPER-TAZO 3.375 GM IV (PMX) 100 ML IVPB SCH ×3 (05:28→21:05)
[2019-03-04] MEDS: VALPROIC ACID LIQUID CUP 250 MG/5 ML CUP GTB SCH ×3 (05:28→21:03)
[2019-03-04] MEDS: FAMOTIDINE 20 MG TAB GTB SCH ×2 (08:31→21:02)
[2019-03-04] MEDS: FUROSEMIDE 20 MG TAB GTB SCH (08:32)
[2019-03-04] MEDS: LISINOPRIL 5 MG TAB GTB SCH (08:33)
[2019-03-04] MEDS: ARTIFICIAL TEARS 15 ML OPH BOTH EYES SCH ×2 (10:10→21:04)
[2019-03-04] MEDS: COLLAGENASE 5 GM (UD JAR) TOP SCH (10:10)
[2019-03-04] MEDS: BALSAM PERU/CASTOR OIL 60 GM TUBE TOP SCH ×2 (10:13→21:59)
[2019-03-04] MEDS: DAKINS 0.0125%(1/40) 473 ML SOLUTION TP SCH (12:42)
[2019-03-04] MEDS: INSULIN GLARGINE [LANTus] (100 UNITS/ML) SYG SC SCH (22:00)
[2019-03-05] VITALS (9 sets, daily range): BP systolic 95–106; BP diastolic 69–74; PULSE 92–94; RESP 16–24
[2019-03-05] MEDS: ACETAMINOPHEN 325 MG TAB PO PRN (00:36)
[2019-03-05] MEDS: PIPER-TAZO 3.375 GM IV (PMX) 100 ML IVPB SCH (05:19)
[2019-03-05] MEDS: VALPROIC ACID LIQUID CUP 250 MG/5 ML CUP GTB SCH ×2 (05:19→13:40)
[2019-03-05] MEDS: INSULIN ASPART [NOVOLOG] 3 ML PEN SC SCH ×3 (05:32→11:55)
[2019-03-05] MEDS: LISINOPRIL 5 MG TAB GTB SCH (09:00)
[2019-03-05] MEDS: COLLAGENASE 5 GM (UD JAR) TOP SCH (09:10)
[2019-03-05] MEDS: ARTIFICIAL TEARS 15 ML OPH BOTH EYES SCH (09:10)
[2019-03-05] MEDS: FUROSEMIDE 20 MG TAB GTB SCH (09:11)
[2019-03-05] MEDS: FAMOTIDINE 20 MG TAB GTB SCH (09:12)
[2019-03-05] MEDS: BALSAM PERU/CASTOR OIL 60 GM TUBE TOP SCH (09:17)
[2019-03-05] MEDS: DAKINS 0.0125%(1/40) 473 ML SOLUTION TP SCH (09:17)
== END 2019-03-05 14:26 | DRG 853 ==
LOC: E/R 08:55 → TEL 11:47 → ICU 22:02 → TEL 02-01 01:51 → UNDODISIN 02-25 18:22
PROVIDERS: ADMIT Internal Medicine; ATTEND Internal Medicine
PROC: 5A1955Z Respiratory Ventilation, Greater than 96 Consecutive Hours (ICD-10-PCS; 2019-01-31)
PROC: 30233N1 Transfusion of Nonautologous Red Blood Cells into Peripheral Vein, Percutaneous Approach (ICD-10-PCS; 2019-02-12)
PROC: 0KBP0ZZ Excision of Left Hip Muscle, Open Approach (ICD-10-PCS; principal; 2019-02-22)
PROC: 0KBN0ZZ Excision of Right Hip Muscle, Open Approach (ICD-10-PCS; 2019-02-22)
PROC: 0J973ZZ Drainage of Back Subcutaneous Tissue and Fascia, Percutaneous Approach (ICD-10-PCS; 2019-02-22)
PROC: 0KBP0ZZ Excision of Left Hip Muscle, Open Approach (ICD-10-PCS; 2019-03-03)
PROC: 0KBN0ZZ Excision of Right Hip Muscle, Open Approach (ICD-10-PCS; 2019-03-03)
PROC: 0D9Q0ZZ Drainage of Anus, Open Approach (ICD-10-PCS; 2019-03-03)
DX: A41.9 Sepsis, unspecified organism (principal); L89.154 Pressure ulcer of sacral region, stage 4; J18.9 Pneumonia, unspecified organism; I50.23 Acute on chronic systolic (congestive) heart failure; J96.21 Acute and chronic respiratory failure with hypoxia; G91.9 Hydrocephalus, unspecified; N39.0 Urinary tract infection, site not specified; Z68.41 Body mass index [BMI] 40.0-44.9, adult; I48.92 Unspecified atrial flutter; Z99.11 Dependence on respirator [ventilator] status; G93.49 Other encephalopathy; L02.212 Cutaneous abscess of back [any part, except buttock and flank]; D63.8 Anemia in other chronic diseases classified elsewhere; E11.9 Type 2 diabetes mellitus without complications; E66.01 Morbid (severe) obesity due to excess calories; E78.5 Hyperlipidemia, unspecified; G93.89 Other specified disorders of brain; I11.0 Hypertensive heart disease with heart failure; I25.10 Atherosclerotic heart disease of native coronary artery without angina pectoris; I25.5 Ischemic cardiomyopathy; I69.298 Other sequelae of other nontraumatic intracranial hemorrhage; J44.9 Chronic obstructive pulmonary disease, unspecified; K21.9 Gastro-esophageal reflux disease without esophagitis; L89.621 Pressure ulcer of left heel, stage 1; L98.8 Other specified disorders of the skin and subcutaneous tissue; M19.90 Unspecified osteoarthritis, unspecified site; R13.10 Dysphagia, unspecified; B96.1 Klebsiella pneumoniae [K. pneumoniae] as the cause of diseases classified elsewhere; B96.4 Proteus (mirabilis) (morganii) as the cause of diseases classified elsewhere; B95.2 Enterococcus as the cause of diseases classified elsewhere; Z16.12 Extended spectrum beta lactamase (ESBL) resistance; Z16.24 Resistance to multiple antibiotics; Z16.21 Resistance to vancomycin; Z22.322 Carrier or suspected carrier of Methicillin resistant Staphylococcus aureus; Z98.2 Presence of cerebrospinal fluid drainage device; Z95.5 Presence of coronary angioplasty implant and graft; Z93.1 Gastrostomy status; Z93.0 Tracheostomy status; Z79.4 Long term (current) use of insulin
CPT/HCPCS: 36415; 36430; 36600; 70450; 71045; 71250; 72170; 74176; 78806; 80048; 80053; 80202; 81001; 81003; 82270; 82565; 82803; 82962; 83036; 83605; 83735; 84145; 84484; 84520; 85025; 85610; 85730; 86703; 86706; 86803; 86850; 86900; 86901; 86920; 87070; 87075; 87081; 87086; 87102; 87340; 88304; 88305; 89220; 93005; 93971; 94002; 94003; 94664; 96365; 96366; 96368; A4310; A9570; J0153; J0282; J0690; J0692; J1650; J1815; J1940; J1956; J2250; J2270; J2370; J2543; J3010; J3370; J3480; J7030; J7040; J7060; P9016